=== PATIENT | female | born 1940 | race Caucasian/White ===

== ENCOUNTER 2017-09-20 14:54 | Emergency (ER) | payer MEDICARE ==
--- NOTE | 2017-09-20 15:39 | RAD ---
UPRIGHT PORTABLE CHEST ONE VIEW: History: 77-year-old female with generalized weakness. Comparison: 08-23-17 FINDINGS: Monitor leads overlie the chest. Poor inspiration. Linear and parenchymal changes in both bases, prob ably chronic change and/or subsegmental atelectasis. The upper lung zones appear stable. Heart size i s borderline. IMPRESSION: Very poor inspiratory effort with linear and parenchymal changes in the bases, stable. No evidence of pneumonia or other acute process. POS: [facility]
[2017-09-20 15:55] LABS: #Basophils 0.1 thou/uL (0.0-0.2); #Eosinphils 0.6 thou/uL (0.0-0.7); #Lymphocytes 1.4 thou/uL (1.20-3.40); #Monocytes 0.9 thou/uL (0.11-0.59); #Neutrophils 6.6 thou/uL (1.40-6.50); %Basophils 0.6 % (0.0-1.0); %Eosinophils 6.5 % (0.0-10.0); %Lymphocytes 14.7 % (21.0-51.0); Hematocrit 40.5 % (36.0-47.0); Mean Platelet Volume 6.6 fL (7.4-10.4); Red Blood Cell (RBC) Count 4.25 mill/uL (4.20-5.40); White Blood Cell (WBC) Count 9.6 thou/uL (4.8-10.8)
[2017-09-20 16:12] LABS: Lactic Acid - Sepsis 1.6 mmol/L (0.5-2.2)
[2017-09-20 16:17] LABS: ALT (SGPT) 14 U/L (8-55); AST (SGOT) 16 U/L (5-34); Alkaline Phosphatase 140 U/L (40-150); Anion Gap 11 mmol/L (10-20); BUN (Urea Nitrogen) 12 mg/dL (9.8-20.1); Bilirubin, Total 0.4 mg/dL (0.2-1.2); Calc. Creatinine Clearance 0 mL/min (70-130); Calcium 9.4 mg/dL (7.8-10.44); Carbon Dioxide 30 mmol/L (23-31); Chloride 100 mmol/L (98-107); Estimated GFR-MDRD 56; Globulin 3.4 g/dL (2.4-3.5); Protein, Total 7.2 g/dL (6.0-8.3)
[2017-09-20 16:22] LABS: Troponin I Less than 0.010 ng/mL (< 0.028)
== END 2017-09-20 17:19 | disposition home or self-care (01) ==
LOC: ERS 14:54
DX: N39.0 Urinary tract infection, site not specified (principal)
CPT/HCPCS: 36415; 71010; 80053; 82553; 83605; 83880; 84484; 85025; 94760

== ENCOUNTER 2017-09-29 13:21 | Inpatient (IN) | payer MEDICARE ==
--- NOTE | 2017-09-29 14:13 | RAD ---
RADIOGRAPH CHEST 1 VIEW: HISTORY: 77-year-old female with fever. FINDINGS: There is no air space density, pulmonary edema, or pneumothorax. The lateral costophrenic angles are sharp. There is severe joint space narrowing, sclerosis, and osteophytosis, of the left glenohumeral joint. High-riding left humeral head is suggestive of chronic left rotator cuff tear. IMPRESSION: 1. No acute pulmonary findings. 2. Severe osteoarthrosis of the left glenohumeral joint. alvarez [] POS: [facility]
[2017-09-29 14:23] LABS: #Eosinphils 0.1 thou/uL (0.0-0.7); #Lymphocytes 2.6 thou/uL (1.20-3.40); #Monocytes 1.2 thou/uL (0.11-0.59); %Basophils 0.2 % (0.0-1.0); %Eosinophils 0.6 % (0.0-10.0); %Lymphocytes 15.3 % (21.0-51.0); %Neutrophils 76.9 % (42.0-75.0); Hemoglobin 13.7 g/dL (12.0-16.0); Mean Corpuscular HGB CONC 32.6 g/dL (32.0-36.0); Mean Corpuscular Hemoglobin 30.8 pg (27.0-31.0); Mean Corpuscular Volume 94.5 fl (81.0-99.0); Mean Platelet Volume 6.6 fL (7.4-10.4); Platelet Count 416 thou/uL (130-400); RBC Distribution Width 13.1 % (11.5-14.5); Red Blood Cell (RBC) Count 4.47 mill/uL (4.20-5.40)
[2017-09-29 14:41] LABS: ALT (SGPT) 10 U/L (8-55); AST (SGOT) 13 U/L (5-34); Albumin 4.1 g/dL (3.4-4.8); Alkaline Phosphatase 168 U/L (40-150); Anion Gap 16 mmol/L (10-20); BUN (Urea Nitrogen) 9 mg/dL (9.8-20.1); Bilirubin, Total 0.4 mg/dL (0.2-1.2); Calc. Creatinine Clearance 0 mL/min (70-130); Calcium 9.9 mg/dL (7.8-10.44); Carbon Dioxide 25 mmol/L (23-31); Chloride 106 mmol/L (98-107); Estimated GFR-MDRD 66; Globulin 3.7 g/dL (2.4-3.5); Glucose 131 mg/dL (83-110); Potassium 3.8 mmol/L (3.5-5.1); Protein, Total 7.8 g/dL (6.0-8.3); Sodium 143 mmol/L (136-145)
[2017-09-29 16:07] LABS: Bilirubin Negative (Negative); Blood, Urine Negative (Negative); Clarity CLEAR (Clear); Glucose, Urine (Dipstick) Negative (Negative); Leukocyte Negative (Negative); Nitrite Negative (Negative); Protein, Urine (Dipstick) 30 mg/dL (Neg-Trace); Specific Gravity, Urine 1.009 (1.002-1.036); Urobilinogen 0.2 mg/dL (0.2-1.0)
[2017-09-29 16:09] LABS: Bacteria/HPF None Seen HPF (None Seen); Hyaline Casts/LPF 0-3 HYALINE CAST LPF (0-3 Hyaline); RBC/HPF None Seen HPF (0-3); Squamous Epithelial None Seen HPF (0-3); WBC/HPF None Seen HPF (0-3)
[2017-09-29] MEDS ORDERED: HYDROcodone/Acetaminophen 10/325 mg Tablet ONE (16:49)
[2017-09-29 18:17] LABS: Lactic Acid 2.1 mmol/L (0.5-2.2)
[2017-09-29] MEDS ORDERED: Ondansetron HCl/PF 4 MG/2 ML Vial IVP PRN (20:36)
[2017-09-29] MEDS ORDERED: Ondansetron ODT 4 MG TAB SL PRN (20:36)
[2017-09-29] MEDS ORDERED: Sodium Chloride 0.9% 1,000 ML IV SCH (20:45)
[2017-09-29] MEDS ORDERED: Dextrose 5 % And 0.9 % NaCl 1,000 ML IV SCH (20:45)
[2017-09-29] MEDS ORDERED: Guaifenesin DM 100-10/5 ML UDCUP PO PRN (21:09)
[2017-09-29] MEDS ORDERED: Ondansetron ODT 4 MG TAB PO PRN (21:09)
[2017-09-29] MEDS ORDERED: Enoxaparin Sodium 40 MG/0.4 ML SYRINGE SC SCH (21:09)
[2017-09-29] MEDS ORDERED: Acetaminophen 325 MG TAB PO PRN (21:09)
[2017-09-29] MEDS ORDERED: Albuterol Sulfate 2.5 mg/3 ml Neb NEB PRN (21:09)
[2017-09-29] MEDS ORDERED: HYDROcodone/Acetaminophen 5/325 mg Tablet PO PRN (21:09)
[2017-09-29] MEDS ORDERED: Cefepime 2 GM in Sodium Chloride 0.9% 100 ML IVPB SCH (21:09)
[2017-09-29] MEDS ORDERED: guaiFENesin ER 600 MG TAB PO SCH (21:45)
[2017-09-29] MEDS ORDERED: ALPRAZolam 0.25 MG TAB PO SCH (21:45)
[2017-09-29] MEDS ORDERED: Famotidine 20 MG TAB PO SCH (21:45)
[2017-09-29] MEDS ORDERED: Gabapentin 400 MG CAP PO SCH (21:45)
[2017-09-29] MEDS: HYDROcodone/Acetaminophen 10/325 mg Tablet PO PRN (22:05)
[2017-09-29] MEDS: Cefepime 2 GM, Syringe 2.5 ML in Sterile Water 10 ML SLOW IVP SCH (22:08)
[2017-09-29] MEDS: Sodium Chloride 0.9% 1,000 ML IV SCH (22:13)
[2017-09-29] MEDS: guaiFENesin ER 600 MG TAB PO SCH (22:13)
[2017-09-29] MEDS: ALPRAZolam 0.25 MG TAB PO SCH (22:14)
--- NOTE | 2017-09-29 23:18 | HP ---
DATE OF ADMISSION: 09/29/2017 TIME OF SERVICE: 1800 CHIEF COMPLAINT: Tachycardia and cough. PRIMARY CARE PHYSICIAN: Dr. Deepak Ricardo. HISTORY OF PRESENT ILLNESS: Ms. Santizo is a very pleasant 77-year-old white female with history of hypertension, chronic atrial fibrillation, anxiety, depression, COPD, and hypothyroidism who was las t admitted here about a month ago just before . She was admitted with respiratory infect ion and sepsis. She was here for few days and went home. Since discharge, she has been doing okay. She actually came back to the ER about a week ago and was treated for UTI and then improved. She did well until about 24 hours ago. She is having increased s hortness of breath and cough and felt like her heart rate was getting out of control. Overall, she f elt much worse. She saw her PCP on 09/28, she was diagnosed in a year of upper respiratory tract inf ection, she was given short course of prednisone, she was also given a steroid injection to her left shoulder joint for chronic pain. She has had no fevers or chills, she has had cough and so decided t o come to the emergency department, they could see she was not getting any better. In the emergency department, she was given 1 liter of normal saline and a dose of vancomycin due to multiple drug tiago rgies. Chest x-ray was performed, thus appeared unremarkable, we were called for further admission d ue to lab findings. She denies any other current complaints. PAST MEDICAL HISTORY: 1. Hypertension. 2. Chronic atrial fibrillation. 3. Anxiety/depression. 4. COPD. 5. Hyperlipidemia. 6. GERD. 7. Hypothyroidism. PAST SURGICAL HISTORY: Include, 1. Hysterectomy. 2. Cholecystectomy. 3. Back surgery. 4. Appendectomy remotely. HOME MEDICATIONS: Have been reviewed in their entirety. Please see her recent ambulatory order list per the nurses. This has been reviewed and are correct. ALLERGIES: 1. AMOXICILLIN/CLAVULANIC ACID caused diarrhea, which is not a true allergy. CIPRO causes a rash, b ut she has tolerated LEVAQUIN in the past. She has also tolerated OMNICEF, ROCEPHIN, CEFEPIME. 2. ERYTHROMYCIN causes nausea. 3. FENTANYL. 4. LASIX causes a rash. 5. METOLAZONE. 6. NABUMETONE. 7. OXYCODONE. 8. SULFA. FAMILY HISTORY: Negative for clotting or bleeding disorder, no immune dysfunction. SOCIAL HISTORY: Negative for habits x3. She is . was here earlier, but has gone kike e. I did speak with him on the phone. REVIEW OF SYSTEMS: Ten-point review of systems was performed, negative for all other systems except stated as per HPI. PHYSICAL EXAMINATION: VITAL SIGNS: Temperature 98.4, pulse 122, blood pressure 131/65, respiratory rate 20, satting 94% on 2 liters, temperature on arrival was 100.1. GENERAL: She is awake. She is alert. She is oriented x3. She is acutely ill and does not look lik e she feels well. She appears in no acute distress. HEENT: Normocephalic, atraumatic. Pupils are equal and reactive bilaterally, mucous membranes moist . She has posterior oropharyngeal cobblestoning. There is some chronic postnasal drip. There is no thrush. NECK: Supple. There is no lymphadenopathy, JVD, or thyromegaly. She had normal carotid upstrokes w ithout bruits. LUNGS: Clear to auscultation anteriorly. She has good air movement. There is no prolonged expirato ry phase and no wheezes. I hear no rhonchi. She has some faint bibasilar crackles that initially se emed to clear with deep inspiration, but then seemed persistent. CARDIOVASCULAR: She is irregularly irregular and tachycardic. She has normal S1, S2. I do not appr eciate any murmurs. ABDOMEN: Soft, is nontender, nondistended. She has no rebound, rigidity, or guarding with normoacti ve bowel sounds present in all 4 quadrants. EXTREMITIES: There is no cyanosis or clubbing with trace pedal edema. She has 2+ peripheral pulses in both lower extremities. SKIN: Warm, moist, and well perfused. She has no rashes, no lesions. MUSCULOSKELETAL: The remainder of joints are normal to inspection. No inflammation or palpable join t effusions in the large joints. NEUROLOGIC: Cranial nerves II-XII are grossly intact. Patient has no focal deficits and normal spee ch. LABORATORY DATA: CMP shows sodium 143, potassium 3.8, chloride 106, bicarbonate 25, BUN 9, creatinin e 0.84, and calcium of 9.9. Glucose was 131. Liver functions normal except for an alkaline phosphat ase of 168. CBC showed a white count of 17.0 with a left shift. Hemoglobin of 13.1, hematocrit of 4 2.2, platelet count of 412,000. Flu screen was negative. Lactic acid initially 3.1. X-ray initially negative. ASSESSMENT AND PLAN: 1. Presumed healthcare associated pneumonia. Patient was here right of 30 days ago. She got Roceph in and levofloxacin in the emergency department. We will continue cefepime and levofloxacin for heal thcare-associated. I do not believe this methicillin-resistant Staphylococcus aureus. Chest x-ray i s negative, but did have some faint bibasilar crackles. We will give her full 30 mL of IV fluids per kilo, which is 3 liters and then continue 125 an hour. Repeat 2-view chest x-ray in the morning. I will continue her nebulizer treatments here in the hospital. We will reevaluate in the morning. 2. Chronic atrial fibrillation, currently in atrial fibrillation with rapid ventricular response: T he patient was given IV fluids. Over there, we will help with her rate if not, we will start her on some Cardizem. 3. Chronic obstructive pulmonary disease: No acute exacerbation noted. Continue home medications. There was hyperemia on home medications. 4. Hypothyroidism: We will continue her levothyroxine. 5. The patient does meet severe sepsis criteria with increased lactic acid, tachycardia, temperature of 100.1, increased white blood cell with left shift and presumed pneumonia. Repeat lactic acid minor t has been ordered. We will follow up on the findings. The patient was placed in admission status.
[2017-09-30] MEDS: HYDROcodone/Acetaminophen 10/325 mg Tablet PO PRN ×3 (03:56→19:04)
[2017-09-30 05:22] LABS: #Eosinphils 0.2 thou/uL (0.0-0.7); #Lymphocytes 2.9 thou/uL (1.20-3.40); #Monocytes 1.1 thou/uL (0.11-0.59); #Neutrophils 8.5 thou/uL (1.40-6.50); %Basophils 0.3 % (0.0-1.0); %Eosinophils 1.5 % (0.0-10.0); %Monocytes 8.6 % (0.0-10.0); %Neutrophils 66.7 % (42.0-75.0); Hemoglobin 12.2 g/dL (12.0-16.0); Mean Corpuscular HGB CONC 32.6 g/dL (32.0-36.0); Mean Corpuscular Hemoglobin 31.1 pg (27.0-31.0); Mean Corpuscular Volume 95.4 fl (81.0-99.0); Mean Platelet Volume 6.6 fL (7.4-10.4); Platelet Count 322 thou/uL (130-400); RBC Distribution Width 13.3 % (11.5-14.5); Red Blood Cell (RBC) Count 3.94 mill/uL (4.20-5.40); White Blood Cell (WBC) Count 12.8 thou/uL (4.8-10.8)
[2017-09-30] MEDS: Levothyroxine Sodium 125 MCG TAB PO SCH (05:27)
[2017-09-30 05:46] LABS: Anion Gap 14 mmol/L (10-20); BUN (Urea Nitrogen) 8 mg/dL (9.8-20.1); Calc. Creatinine Clearance 93 mL/min (70-130); Calcium 8.7 mg/dL (7.8-10.44); Carbon Dioxide 23 mmol/L (23-31); Chloride 106 mmol/L (98-107); Estimated GFR-MDRD 77; Glucose 96 mg/dL (83-110); Magnesium 1.6 mg/dL (1.6-2.6); Potassium 3.3 mmol/L (3.5-5.1); Sodium 140 mmol/L (136-145)
[2017-09-30] MEDS: Sodium Chloride 0.9% 1,000 ML IV SCH (08:32)
[2017-09-30] MEDS: Amlodipine 5 MG TAB PO SCH (08:34)
[2017-09-30] MEDS: predniSONE 20 MG TAB PO SCH (08:34)
[2017-09-30] MEDS: Enoxaparin Sodium 40 MG/0.4 ML SYRINGE SC SCH (08:35)
[2017-09-30] MEDS: Famotidine 20 MG TAB PO SCH ×2 (08:35→20:09)
[2017-09-30] MEDS: Atorvastatin Calcium 10 MG TAB PO SCH (08:35)
[2017-09-30] MEDS: FLUoxetine HCl 20 MG CAP PO SCH (08:36)
[2017-09-30] MEDS: Gabapentin 400 MG CAP PO SCH ×3 (08:36→20:10)
[2017-09-30] MEDS: Valsartan 80 MG TAB PO SCH (08:37)
[2017-09-30] MEDS: TROSPIUM 20 MG TABLET PO SCH ×2 (08:37→20:09)
[2017-09-30] MEDS: guaiFENesin ER 600 MG TAB PO SCH ×2 (08:37→20:11)
--- NOTE | 2017-09-30 08:41 | PDOC.PN ---
- Subjective Encounter Start Date: 09/30/17 Encounter Start Time: 08:38 Subjective: Seen and examined with no new complaint - Objective Resuscitation Status: Resuscitation Status FULL:Full Resuscitation Vital Signs & Weight: Vital Signs (12 hours) Temp Pulse Resp BP Pulse Ox 09/30/17 08:25 97.8 F 116 H 19 166/80 H 94 L 09/30/17 07:37 82 20 96 09/30/17 03:50 98.3 F 85 18 137/75 92 L 09/30/17 00:33 79 18 94 L 09/30/17 00:00 97.8 F 79 16 139/65 94 L Weight Weight 200 lb 14.4 oz I&O: 09/29/17 09/30/17 10/01/17 06:59 06:59 06:59 Intake Total 1525 Balance 1525 Result Diagrams: 09/30/17 04:41 09/30/17 04:41 Phys Exam - Physical Examination Constitutional: NAD HEENT: PERRLA, moist MMs, sclera anicteric, TM's clear Neck: no nodes, no JVD, supple, full ROM Respiratory: no rales, no rhonchi, clear to auscultation bilateral Cardiovascular: RRR, no significant murmur, no rub Gastrointestinal: soft, non-tender, no distention, positive bowel sounds Musculoskeletal: no edema, pulses present Dx/Plan (1) Pneumonia Code(s): J18.9 - PNEUMONIA, UNSPECIFIED ORGANISM Status: Acute (2) COPD (chronic obstructive pulmonary disease) Status: Acute (3) Afib Code(s): I48.91 - UNSPECIFIED ATRIAL FIBRILLATION Status: Acute (4) Hypertension Code(s): I10 - ESSENTIAL (PRIMARY) HYPERTENSION Status: Chronic Qualifiers: - Plan continue antibiotics, PT/OT, social services aide, respiratory therapy D/c IVF -: Monitor the heart rate closely * .
[2017-09-30] MEDS: Cefepime 2 GM, Syringe 2.5 ML in Sterile Water 10 ML SLOW IVP SCH ×2 (11:18→21:38)
[2017-09-30] MEDS: Vancomycin HCl 1 GM in Premix Bag 1 BAG IVPB SCH ×2 (11:19→23:23)
[2017-09-30] MEDS: ALPRAZolam 0.25 MG TAB PO SCH (20:10)
[2017-10-01] MEDS: HYDROcodone/Acetaminophen 10/325 mg Tablet PO PRN ×2 (03:31→09:26)
[2017-10-01] MEDS: Levothyroxine Sodium 125 MCG TAB PO SCH (06:18)
[2017-10-01] MEDS: Gabapentin 400 MG CAP PO SCH ×3 (09:24→21:13)
[2017-10-01] MEDS: Famotidine 20 MG TAB PO SCH ×2 (09:25→21:14)
[2017-10-01] MEDS: TROSPIUM 20 MG TABLET PO SCH ×2 (09:25→21:13)
[2017-10-01] MEDS: FLUoxetine HCl 20 MG CAP PO SCH (09:25)
[2017-10-01] MEDS: Valsartan 80 MG TAB PO SCH (09:25)
[2017-10-01] MEDS: predniSONE 20 MG TAB PO SCH (09:25)
[2017-10-01] MEDS: Amlodipine 5 MG TAB PO SCH (09:25)
[2017-10-01] MEDS: Atorvastatin Calcium 10 MG TAB PO SCH (09:25)
[2017-10-01] MEDS: guaiFENesin ER 600 MG TAB PO SCH ×2 (09:25→21:12)
[2017-10-01] MEDS: Enoxaparin Sodium 40 MG/0.4 ML SYRINGE SC SCH (09:26)
[2017-10-01] MEDS: Cefepime 2 GM, Syringe 2.5 ML in Sterile Water 10 ML SLOW IVP SCH ×2 (09:31→21:14)
--- NOTE | 2017-10-01 11:33 | PDOC.PN ---
- Subjective Encounter Start Date: 10/01/17 Encounter Start Time: 11:31 Subjective: Seen and examined with no new complaint - Objective Resuscitation Status: Resuscitation Status FULL:Full Resuscitation Vital Signs & Weight: Vital Signs (12 hours) Temp Pulse Resp BP BP Pulse Ox 10/01/17 09:25 84 133/75 10/01/17 07:15 98.6 F 84 20 133/75 98 10/01/17 07:14 81 20 94 L 10/01/17 04:00 97.7 F 95 14 134/83 98 10/01/17 00:39 109 H 20 98 10/01/17 00:00 97.7 F 89 17 162/83 H 97 Weight Weight 197 lb 4.8 oz I&O: 09/30/17 10/01/17 10/02/17 06:59 06:59 06:59 Intake Total 1525 1590 Balance 1525 1590 Result Diagrams: 09/30/17 04:41 09/30/17 04:41 Phys Exam - Physical Examination Constitutional: NAD HEENT: PERRLA, moist MMs, sclera anicteric, TM's clear Neck: no nodes, no JVD, supple, full ROM Respiratory: no wheezing, no rales, no rhonchi, clear to auscultation bilateral Cardiovascular: RRR, no significant murmur, no rub Gastrointestinal: soft, non-tender, no distention, positive bowel sounds Musculoskeletal: no edema, pulses present Dx/Plan (1) Pneumonia Code(s): J18.9 - PNEUMONIA, UNSPECIFIED ORGANISM Status: Acute (2) COPD (chronic obstructive pulmonary disease) Status: Acute (3) Afib Code(s): I48.91 - UNSPECIFIED ATRIAL FIBRILLATION Status: Acute (4) Hypertension Code(s): I10 - ESSENTIAL (PRIMARY) HYPERTENSION Status: Chronic Qualifiers: (5) Hypokalemia Code(s): E87.6 - HYPOKALEMIA Status: Acute (6) MRSA (methicillin resistant staph aureus) culture positive Code(s): Z22.322 - CARRIER OR SUSPECTED CARRIER OF METHICILLIN RESIS STAPH Status: Acute - Plan continue antibiotics, PT/OT, vp digital marketing social media and crm, respiratory therapy Continue MRSA coverage with vancomycin -: Follow trough levels and make dose adjustement accordingly -: Dispo planning * .
--- NOTE | 2017-10-01 12:41 | RAD ---
CHEST 1 VIEW: Date: 10/01/17 COMPARISON: Chest 1 view dated 09/29/17. FINDINGS: Heart size is enlarged. Small effusions. Lungs are hypoinflated. No acute osseous abnormality. IMPRESSION: 1. Cardiomegaly and small effusions and lung hypoinflation. 2. Severe degenerative changes of left glenohumeral joint. POS: [facility]
[2017-10-01] MEDS: Vancomycin HCl 1 GM in Premix Bag 1 BAG IVPB SCH (12:59)
[2017-10-01] MEDS: carBAMazepine 100 mg Chewable Tablet PO SCH (21:12)
[2017-10-01] MEDS: ALPRAZolam 0.25 MG TAB PO SCH (21:12)
[2017-10-01 23:14] LABS: Vancomycin, Trough 26.1 ug/mL
[2017-10-02] MEDS: Vancomycin HCl 1 GM in Premix Bag 1 BAG IVPB SCH ×2 (01:32→12:04)
[2017-10-02] MEDS: Levothyroxine Sodium 125 MCG TAB PO SCH (05:38)
[2017-10-02] MEDS: FLUoxetine HCl 20 MG CAP PO SCH (09:59)
[2017-10-02] MEDS: Famotidine 20 MG TAB PO SCH ×2 (09:59→20:38)
[2017-10-02] MEDS: Gabapentin 400 MG CAP PO SCH ×3 (09:59→20:36)
[2017-10-02] MEDS: Valsartan 80 MG TAB PO SCH (09:59)
[2017-10-02] MEDS: predniSONE 20 MG TAB PO SCH (09:59)
[2017-10-02] MEDS: Atorvastatin Calcium 10 MG TAB PO SCH (09:59)
[2017-10-02] MEDS: TROSPIUM 20 MG TABLET PO SCH ×2 (09:59→20:36)
[2017-10-02] MEDS: guaiFENesin ER 600 MG TAB PO SCH ×2 (10:00→20:36)
[2017-10-02] MEDS: Amlodipine 5 MG TAB PO SCH (10:00)
[2017-10-02] MEDS: Enoxaparin Sodium 40 MG/0.4 ML SYRINGE SC SCH (10:00)
[2017-10-02] MEDS: Cefepime 2 GM, Syringe 2.5 ML in Sterile Water 10 ML SLOW IVP SCH ×2 (10:01→22:00)
[2017-10-02] MEDS ORDERED: Diltiazem 125 MG in Sodium Chloride 0.9% 100 ML IVPB SCH (10:15)
[2017-10-02] MEDS: carBAMazepine 100 mg Chewable Tablet PO SCH ×2 (10:17→20:38)
--- NOTE | 2017-10-02 10:23 | PDOC.PN ---
- Subjective Encounter Start Date: 10/02/17 Encounter Start Time: 10:05 Subjective: f/u for suspected sepsis and HCAP on Cefepime and Vancomycin. Nsg reports -: A-fib RVR in the 180-200's with known chronic a-fib. - Objective Resuscitation Status: Resuscitation Status FULL:Full Resuscitation MAR Reviewed: Yes Vital Signs & Weight: Vital Signs (12 hours) Temp Pulse Resp BP BP Pulse Ox 10/02/17 10:00 73 177/89 H 10/02/17 08:09 73 20 96 10/02/17 07:15 98.0 F 93 20 177/89 H 95 10/02/17 06:00 97.3 F L 99 20 165/84 H 93 L 10/02/17 00:00 97.9 F 71 15 174/76 H 96 Weight Weight 197 lb 11.2 oz I&O: 10/01/17 10/02/17 10/03/17 06:59 06:59 06:59 Intake Total 1590 510 Balance 1590 510 Result Diagrams: 09/30/17 04:41 09/30/17 04:41 Additional Labs: Microbiology 09/29/17 14:13 Nasal swab Influenza Types A,B Direct EIA - Final 09/29/17 14:11 Venous blood - Left Arm Blood Culture - Final Methicillin resistant S.aureus Enterococcus faecalis Coagulase Neg Staphylococcus 09/29/17 14:11 Venous blood - Right Hand Blood Culture - Preliminary NO GROWTH AT 48 HOURS Laboratory Tests 09/29/17 09/29/17 09/29/17 14:11 14:11 14:11 WBC 17.0 H Potassium 3.8 Lactic Acid 3.1 H Vancomycin Trough 09/29/17 09/30/17 09/30/17 17:53 04:41 04:41 WBC 12.8 H Potassium 3.3 L Lactic Acid 2.1 Vancomycin Trough 10/01/17 22:42 WBC Potassium Lactic Acid Vancomycin Trough 26.1 EKG Reviewed by me: Yes (Tele - A-fib RVR in 180's) Phys Exam - Physical Examination ill-appearing, answers questions HEENT: PERRLA, oral pharynx no lesions Neck: no JVD, supple diminished in bases tachycardic Cardiovascular: irregular Gastrointestinal: soft, non-tender, no distention, positive bowel sounds Musculoskeletal: no edema, pulses present Neurological: moves all 4 limbs Psychiatric: A&O x 3 Skin: normal turgor, cap refill <2 seconds Dx/Plan (1) Healthcare associated bacterial pneumonia Code(s): J15.9 - UNSPECIFIED BACTERIAL PNEUMONIA Status: Acute Comment: suspected though CXR was unrevealing, continue Cefepime and Vancomycin, pulmonary support, Duonebs (2) Sepsis Code(s): A41.9 - SEPSIS, UNSPECIFIED ORGANISM Status: Suspected Comment: Secondary to #1, see above (3) Afib Code(s): I48.91 - UNSPECIFIED ATRIAL FIBRILLATION Status: Acute Qualifiers: Atrial fibrillation type: chronic Qualified Code(s): I48.2 - Chronic atrial fibrillation Comment: RVR noted on tele, Cardizem 20mg IV bolus then 5mg/h gtt, consult Cardiology (4) COPD (chronic obstructive pulmonary disease) Status: Chronic Comment: Continue general pulm support (5) Hypokalemia Code(s): E87.6 - HYPOKALEMIA Status: Acute (6) MRSA (methicillin resistant staph aureus) culture positive Code(s): Z22.322 - CARRIER OR SUSPECTED CARRIER OF METHICILLIN RESIS STAPH Status: Acute Comment: Acute/?chronic, continue Vancomycin (7) Physical deconditioning Code(s): R53.81 - OTHER MALAISE Status: Chronic Comment: PT evaluation and SNF options - Plan continue antibiotics, PT/OT, forensic social worker, respiratory therapy, DVT proph w/ SCDs Start Cardizem gtt now -: Continue Cefepime and Vancomycin -: Continue Prednisone 20mg daily -: Resume Qvar 1 puff BID -: Check BMP, CBC, TSH, Mg++ now * Consult Cardiology * AM lab: BMP, CBC
[2017-10-02 10:57] LABS: Anion Gap 15 mmol/L (10-20); BUN (Urea Nitrogen) 12 mg/dL (9.8-20.1); Calc. Creatinine Clearance 83 mL/min (70-130); Calcium 9.1 mg/dL (7.8-10.44); Carbon Dioxide 22 mmol/L (23-31); Chloride 105 mmol/L (98-107); Estimated GFR-MDRD 70; Glucose 124 mg/dL (83-110); Magnesium 1.7 mg/dL (1.6-2.6); Sodium 139 mmol/L (136-145)
[2017-10-02 10:59] LABS: Band 2 % (5-11); Eosinophils 4 % (0-10); Hemoglobin 14.1 g/dL (12.0-16.0); Lymphocytes 30 % (21-51); MDiff Complete? YES; Mean Corpuscular HGB CONC 33.1 g/dL (32.0-36.0); Mean Corpuscular Hemoglobin 31.3 pg (27.0-31.0); Mean Corpuscular Volume 94.3 fl (81.0-99.0); Mean Platelet Volume 6.5 fL (7.4-10.4); Monocytes 5 % (0-10); Neutrophil 58 % (42-75); Platelet Count 333 thou/uL (130-400); RBC Distribution Width 13.2 % (11.5-14.5); Reactive Lymphocytes 1 % (0-10); Red Blood Cell (RBC) Count 4.49 mill/uL (4.20-5.40); White Blood Cell (WBC) Count 17.7 thou/uL (4.8-10.8)
[2017-10-02] MEDS: HYDROcodone/Acetaminophen 10/325 mg Tablet PO PRN (12:02)
[2017-10-02] MEDS: ALPRAZolam 0.25 MG TAB PO SCH (20:36)
[2017-10-02] MEDS: Mometasone 100 MCG HFA INHALER INH SCH (21:33)
--- NOTE | 2017-10-02 23:39 | CON ---
DATE OF CONSULTATION: 10/02/2017 HISTORY OF PRESENT ILLNESS: The patient is a pleasant 77-year-old woman with a history of SVT and atrial fibrillation, who presented with rapid palpitations and dyspnea. The patient has a history of hypertension. She was also diagnosed many years ago with SVT. The patient also has a history of paroxysmal atrial fibrillation. The patient presented to the emergency room with dyspnea and palpitations. She denied having any chest discomfort. PAST MEDICAL HISTORY: 1. SVT. 2. Atrial fibrillation. 3. Hypertension. 4. Anxiety. PAST SURGICAL HISTORY: Hysterectomy, cholecystectomy, back surgery,and appendectomy. MEDICATIONS: See nursing list. FAMILY HISTORY: Positive family history of heart disease. Father had a myocardial infarction. ALLERGIES: No known drug allergies. SOCIAL HISTORY: Nonsmoker. REVIEW SYSTEMS: No history of easy bruising or bright red blood per rectum. Review of system was noticeable for severe back discomfort. PHYSICAL EXAMINATION: GENERAL: An obese woman in no acute distress. VITAL SIGNS: Blood pressure 144/65. NECK: Full. LUNGS: Clear to auscultation. HEART: Regular rate and rhythm, normal S1, S2. ABDOMEN: Soft, distended. EXTREMITIES: Showed trace edema. EKG revealed atrial fibrillation with a rapid ventricular response with an incomplete left bundle branch block. IMPRESSION: 1. Recurrent atrial fibrillation. 2. History of supraventricular tachycardia. 3. Hypertension. 4. Obesity. 5. Depression. 6. Chronic back discomfort. This patient presents with new onset atrial fibrillation. From a cardiac standpoint, I will start her on a beta-jacqui and flecainide to hopefully maintain sinus rhythm. The patient will also be started on Eliquis for stroke prevention. We will check the patient's echocardiogram and will follow this patient with you through her hospitalization. [facility]
[2017-10-03] MEDS: Vancomycin HCl 1 GM in Premix Bag 1 BAG IVPB SCH ×3 (00:03→23:54)
[2017-10-03] MEDS: Levothyroxine Sodium 125 MCG TAB PO SCH (05:41)
[2017-10-03 06:07] LABS: Anion Gap 13 mmol/L (10-20); BUN (Urea Nitrogen) 15 mg/dL (9.8-20.1); Calc. Creatinine Clearance 80 mL/min (70-130); Calcium 8.6 mg/dL (7.8-10.44); Carbon Dioxide 22 mmol/L (23-31); Chloride 107 mmol/L (98-107); Estimated GFR-MDRD 66; Glucose 89 mg/dL (83-110); Potassium 3.1 mmol/L (3.5-5.1); Sodium 139 mmol/L (136-145)
[2017-10-03 07:42] LABS: Band 2 % (5-11); Eosinophils 2 % (0-10); Hemoglobin 11.7 g/dL (12.0-16.0); Lymphocytes 23 % (21-51); MDiff Complete? YES; Mean Corpuscular HGB CONC 32.5 g/dL (32.0-36.0); Mean Corpuscular Hemoglobin 30.9 pg (27.0-31.0); Mean Corpuscular Volume 94.9 fl (81.0-99.0); Mean Platelet Volume 6.8 fL (7.4-10.4); Monocytes 4 % (0-10); Neutrophil 69 % (42-75); Platelet Count 298 thou/uL (130-400); RBC Distribution Width 13.3 % (11.5-14.5); Red Blood Cell (RBC) Count 3.79 mill/uL (4.20-5.40); White Blood Cell (WBC) Count 15.8 thou/uL (4.8-10.8)
[2017-10-03] MEDS: Mometasone 100 MCG HFA INHALER INH SCH ×2 (07:46→19:50)
[2017-10-03] MEDS ORDERED: Sodium Chloride 0.9% 10 ML ONE (07:48)
[2017-10-03] MEDS: Amlodipine 5 MG TAB PO SCH (09:30)
[2017-10-03] MEDS: predniSONE 20 MG TAB PO SCH (09:30)
[2017-10-03] MEDS: Gabapentin 400 MG CAP PO SCH ×3 (09:31→21:19)
[2017-10-03] MEDS: TROSPIUM 20 MG TABLET PO SCH ×2 (09:31→21:18)
[2017-10-03] MEDS: FLUoxetine HCl 20 MG CAP PO SCH (09:31)
[2017-10-03] MEDS: guaiFENesin ER 600 MG TAB PO SCH ×2 (09:31→21:18)
[2017-10-03] MEDS: Atorvastatin Calcium 10 MG TAB PO SCH (09:31)
[2017-10-03] MEDS: Famotidine 20 MG TAB PO SCH ×2 (09:31→21:20)
[2017-10-03] MEDS: Valsartan 80 MG TAB PO SCH (09:32)
[2017-10-03] MEDS: Enoxaparin Sodium 40 MG/0.4 ML SYRINGE SC SCH (09:34)
[2017-10-03] MEDS: carBAMazepine 100 mg Chewable Tablet PO SCH ×2 (09:45→21:21)
[2017-10-03] MEDS ORDERED: Furosemide 40 MG/4 ML VIAL SLOW IVP SCH (10:00)
[2017-10-03] MEDS ORDERED: Potassium Chloride 20 MEQ TAB PO SCH (10:00)
[2017-10-03] MEDS: Cefepime 2 GM, Syringe 2.5 ML in Sterile Water 10 ML SLOW IVP SCH ×2 (10:28→21:24)
--- NOTE | 2017-10-03 13:56 | PDOC.PN ---
- Subjective Encounter Start Date: 10/03/17 Encounter Start Time: 13:45 Subjective: f/u for sepsis and suspected HCAP on Vanc/Cefepime. Feels overall -: better. Off Cardizem for A-fib RVR now sinus. - Objective Resuscitation Status: Resuscitation Status FULL:Full Resuscitation MAR Reviewed: Yes Vital Signs & Weight: Vital Signs (12 hours) Temp Pulse Resp BP BP BP Pulse Ox 10/03/17 12:47 67 18 94 L 10/03/17 12:08 98.1 F 90 17 120/58 L 93 L 10/03/17 09:30 92 163/77 H 10/03/17 08:58 97.9 F 92 19 163/77 H 96 10/03/17 07:41 93 20 92 L 10/03/17 04:02 98.2 F 64 20 128/58 L 100 Weight Weight 198 lb 4.8 oz I&O: 10/02/17 10/03/17 10/04/17 06:59 06:59 06:59 Intake Total 510 940 Balance 510 940 Result Diagrams: 10/03/17 04:55 10/03/17 04:55 Additional Labs: Microbiology 09/29/17 14:13 Nasal swab Influenza Types A,B Direct EIA - Final 09/29/17 14:11 Venous blood - Left Arm Blood Culture - Final Methicillin resistant S.aureus Enterococcus faecalis Coagulase Neg Staphylococcus 09/29/17 14:11 Venous blood - Right Hand Blood Culture - Preliminary NO GROWTH AT 48 HOURS Laboratory Tests 09/29/17 09/29/17 09/29/17 14:11 14:11 14:11 WBC 17.0 H Potassium 3.8 Lactic Acid 3.1 H Vancomycin Trough Random Vancomycin 09/29/17 09/30/17 09/30/17 17:53 04:41 04:41 WBC 12.8 H Potassium 3.3 L Lactic Acid 2.1 Vancomycin Trough Random Vancomycin 10/01/17 10/02/17 10/02/17 22:42 10:34 10:34 WBC 17.7 H Potassium Lactic Acid Vancomycin Trough 26.1 Random Vancomycin 17.0 EKG Reviewed by me: Yes (Tele - SR in 60's) Phys Exam - Physical Examination Constitutional: NAD HEENT: PERRLA, oral pharynx no lesions Neck: no JVD, supple few scattered coarse sounds Cardiovascular: RRR Gastrointestinal: soft, non-tender, no distention, positive bowel sounds Musculoskeletal: pulses present, edema present Neurological: normal sensation, moves all 4 limbs Psychiatric: A&O x 3 Skin: normal turgor, cap refill <2 seconds Dx/Plan (1) Healthcare associated bacterial pneumonia Code(s): J15.9 - UNSPECIFIED BACTERIAL PNEUMONIA Status: Acute Comment: suspected though CXR was unrevealing, continue Cefepime and Vancomycin, pulmonary support, Duonebs (2) Sepsis Code(s): A41.9 - SEPSIS, UNSPECIFIED ORGANISM Status: Suspected Comment: Secondary to #1, see above, blood cx with MRSA and Enterococcus spp, await final sensitivities, continue Vanc/Cefepime (3) Afib Code(s): I48.91 - UNSPECIFIED ATRIAL FIBRILLATION Status: Acute Qualifiers: Atrial fibrillation type: chronic Qualified Code(s): I48.2 - Chronic atrial fibrillation Comment: RVR noted on tele, Cardizem gtt d/c'd, Flecainide 50mg BID for rhythm control, Metoprolol 50mg daily, no anticoagulation due to hx of bleeding, ASA 81mg daily (4) COPD (chronic obstructive pulmonary disease) Status: Chronic Comment: Continue general pulm support (5) Hypokalemia Code(s): E87.6 - HYPOKALEMIA Status: Acute (6) MRSA (methicillin resistant staph aureus) culture positive Code(s): Z22.322 - CARRIER OR SUSPECTED CARRIER OF METHICILLIN RESIS STAPH Status: Acute Comment: Acute/?chronic, continue Vancomycin (7) Physical deconditioning Code(s): R53.81 - OTHER MALAISE Status: Chronic Comment: PT evaluation and SNF options - Plan plan discussed w/ family, continue antibiotics, PT/OT, social sciences chair, respiratory therapy, DVT proph w/SCDs Stable overall -: Continue Cefepime and Vancomycin -: Await final blood cx sensitivities -: KCL supplementation -: AM lab: BMP, CBC * Likely home in 48h
[2017-10-03] MEDS: Potassium Chloride 20 MEQ TAB PO SCH (18:00)
[2017-10-03] MEDS: ALPRAZolam 0.25 MG TAB PO SCH (21:18)
[2017-10-03] MEDS: HYDROcodone/Acetaminophen 10/325 mg Tablet PO PRN (22:54)
[2017-10-03 23:18] LABS: Vancomycin, Trough 29.8 ug/mL
[2017-10-04 05:56] LABS: Anion Gap 13 mmol/L (10-20); BUN (Urea Nitrogen) 20 mg/dL (9.8-20.1); Calc. Creatinine Clearance 75 mL/min (70-130); Calcium 8.9 mg/dL (7.8-10.44); Carbon Dioxide 22 mmol/L (23-31); Chloride 106 mmol/L (98-107); Estimated GFR-MDRD 62; Glucose 86 mg/dL (83-110); Potassium 3.3 mmol/L (3.5-5.1); Sodium 138 mmol/L (136-145)
[2017-10-04 06:08] LABS: Eosinophils 1 % (0-10); Hemoglobin 12.1 g/dL (12.0-16.0); Lymphocytes 13 % (21-51); MDiff Complete? YES; Mean Corpuscular HGB CONC 32.2 g/dL (32.0-36.0); Mean Corpuscular Hemoglobin 30.6 pg (27.0-31.0); Mean Corpuscular Volume 94.9 fl (81.0-99.0); Monocytes 3 % (0-10); Neutrophil 83 % (42-75); Platelet Count 294 thou/uL (130-400); Red Blood Cell (RBC) Count 3.97 mill/uL (4.20-5.40); White Blood Cell (WBC) Count 16.6 thou/uL (4.8-10.8)
[2017-10-04] MEDS: Levothyroxine Sodium 125 MCG TAB PO SCH (06:09)
[2017-10-04] MEDS: Amlodipine 5 MG TAB PO SCH (08:42)
[2017-10-04] MEDS: Potassium Chloride 20 MEQ TAB PO SCH ×2 (08:42→17:51)
[2017-10-04] MEDS: predniSONE 20 MG TAB PO SCH (08:42)
[2017-10-04] MEDS: Atorvastatin Calcium 10 MG TAB PO SCH (08:43)
[2017-10-04] MEDS: Aspirin 81 mg Enteric Coated Tablet PO SCH (08:43)
[2017-10-04] MEDS: Famotidine 20 MG TAB PO SCH ×2 (08:44→21:40)
[2017-10-04] MEDS: carBAMazepine 100 mg Chewable Tablet PO SCH ×2 (08:44→21:36)
[2017-10-04] MEDS: Gabapentin 400 MG CAP PO SCH ×3 (08:45→21:38)
[2017-10-04] MEDS: TROSPIUM 20 MG TABLET PO SCH ×2 (08:45→21:37)
[2017-10-04] MEDS: FLUoxetine HCl 20 MG CAP PO SCH (08:45)
[2017-10-04] MEDS: Saccharomyces boulardii 250 MG CAP PO SCH (08:45)
[2017-10-04] MEDS: guaiFENesin ER 600 MG TAB PO SCH ×2 (08:45→21:39)
[2017-10-04] MEDS: Valsartan 80 MG TAB PO SCH (08:46)
[2017-10-04] MEDS: Enoxaparin Sodium 40 MG/0.4 ML SYRINGE SC SCH (08:47)
[2017-10-04] MEDS ORDERED: Furosemide 40 MG/4 ML VIAL SLOW IVP SCH (09:00)
[2017-10-04] MEDS: HYDROcodone/Acetaminophen 10/325 mg Tablet PO PRN ×2 (10:41→19:12)
[2017-10-04] MEDS: Cefepime 2 GM, Syringe 2.5 ML in Sterile Water 10 ML SLOW IVP SCH ×2 (10:51→21:40)
[2017-10-04] MEDS: Vancomycin HCl 1 GM in Premix Bag 1 BAG IVPB SCH (11:18)
[2017-10-04] MEDS: Mometasone 100 MCG HFA INHALER INH SCH ×2 (11:34→19:50)
--- NOTE | 2017-10-04 18:24 | PDOC.PN ---
- Subjective Encounter Start Date: 10/04/17 Encounter Start Time: 18:05 Subjective: f/u for sepsis with HCAP and bacteremia MRSA and Enterococcus spp. -: Tx with Vanc/Cefepime. Feels slightly better today. No fever. -: Feels generally weak. - Objective Resuscitation Status: Resuscitation Status FULL:Full Resuscitation MAR Reviewed: Yes Vital Signs & Weight: Vital Signs (12 hours) Temp Pulse Resp BP Pulse Ox 10/04/17 15:55 98 F 85 16 149/75 H 94 L 10/04/17 14:33 72 16 10/04/17 11:34 68 16 10/04/17 11:01 97.8 F 82 12 146/65 H 93 L 10/04/17 08:47 91 L 10/04/17 08:45 68 16 10/04/17 08:42 70 10/04/17 08:21 98.0 F 70 18 170/87 H 95 10/04/17 08:20 98.0 F 68 16 95 Weight Weight 199 lb I&O: 10/03/17 10/04/17 10/05/17 06:59 06:59 06:59 Intake Total 940 1440 Balance 940 1440 Result Diagrams: 10/04/17 04:58 10/04/17 04:58 Additional Labs: Microbiology 09/29/17 14:13 Nasal swab Influenza Types A,B Direct EIA - Final 09/29/17 14:11 Venous blood - Left Arm Blood Culture - Final Methicillin resistant S.aureus Enterococcus faecalis Coagulase Neg Staphylococcus 09/29/17 14:11 Venous blood - Right Hand Blood Culture - Preliminary NO GROWTH AT 48 HOURS Laboratory Tests 09/29/17 09/29/17 09/29/17 14:11 14:11 14:11 WBC 17.0 H Potassium 3.8 Lactic Acid 3.1 H Vancomycin Trough Random Vancomycin 09/29/17 09/30/17 09/30/17 17:53 04:41 04:41 WBC 12.8 H Potassium 3.3 L Lactic Acid 2.1 Vancomycin Trough Random Vancomycin 10/01/17 10/02/17 10/02/17 22:42 10:34 10:34 WBC 17.7 H Potassium Lactic Acid Vancomycin Trough 26.1 Random Vancomycin 17.0 EKG Reviewed by me: Yes (Tele - SR in 70's) Phys Exam - Physical Examination Constitutional: NAD HEENT: PERRLA, oral pharynx no lesions Neck: no JVD, supple Respiratory: no wheezing Cardiovascular: RRR Gastrointestinal: soft, non-tender, no distention, positive bowel sounds Musculoskeletal: pulses present, edema present Neurological: moves all 4 limbs Psychiatric: A&O x 3 Skin: normal turgor, cap refill <2 seconds Dx/Plan (1) Healthcare associated bacterial pneumonia Code(s): J15.9 - UNSPECIFIED BACTERIAL PNEUMONIA Status: Acute Comment: suspected though CXR was unrevealing, continue Cefepime and Vancomycin, pulmonary support, Duonebs (2) Sepsis Code(s): A41.9 - SEPSIS, UNSPECIFIED ORGANISM Status: Suspected Comment: Secondary to #1, see above, blood cx with MRSA and Enterococcus spp, await final sensitivities, continue Vanc/Cefepime another 24h then consider transition to po abx (3) Afib Code(s): I48.91 - UNSPECIFIED ATRIAL FIBRILLATION Status: Acute Qualifiers: Atrial fibrillation type: chronic Qualified Code(s): I48.2 - Chronic atrial fibrillation Comment: RVR noted on tele, Cardizem gtt d/c'd, Flecainide 50mg BID for rhythm control, Metoprolol 50mg daily, no anticoagulation due to hx of bleeding, ASA 81mg daily (4) COPD (chronic obstructive pulmonary disease) Status: Chronic Comment: Continue general pulm support (5) Hypokalemia Code(s): E87.6 - HYPOKALEMIA Status: Acute (6) MRSA (methicillin resistant staph aureus) culture positive Code(s): Z22.322 - CARRIER OR SUSPECTED CARRIER OF METHICILLIN RESIS STAPH Status: Acute Comment: Acute/?chronic, continue Vancomycin (7) Physical deconditioning Code(s): R53.81 - OTHER MALAISE Status: Chronic Comment: PT evaluation and SNF options - Plan plan discussed w/ family, continue antibiotics, PT/OT, psychiatric social worker, DVT proph w/SCDs Stable currently -: Continue Cefepime and Vancomycin another 24h then convert to po -: Change KCL 40meq BID -: Change Lasix 40mg po daily -: AM lab: BMP, CBC * .
[2017-10-04] MEDS ORDERED: Potassium Chloride 20 MEQ TAB PO SCH (19:00)
--- NOTE | 2017-10-04 20:10 | CON ---
DATE OF CONSULTATION: 10/04/2017 REFERRING PHYSICIAN: Dr. Abdi Jaramillo I am seeing Ms. Santizo at [facility] telemetry floor as an electrophysiology risk assessment consultant. Her problems are: 1. Recurrent supraventricular tachycardia. A. Prior history of SVT on EP study on 06/26/2015 demonstrating no inducible supraventricular tachyca rdia. B. Current admission again with bronchitis, just like in 2015 with runs of narrow complex SVT, likely atrial tachycardia, occasional with bundle branch aberration, and rapid rates up to 200 beats per mi nute, but again, nonsustained. C. Good suppression with flecainide: 2. Questionable history of atrial fibrillation noted to be in SVT in 2014. 3. Structurally normal heart area 50-55%, mild left atrial enlargement, mild MR, mild AI, mild to mo derate TR on echo 10/03/2017. 4. Pulmonary disease with history of recurrent bronchitis, COPD. 5. History of hypothyroidism. 6. History of hypertension. 7. History of anxiety, depression. 8. Hyperlipidemia. 9. GERD 10. History of elevated BMI. ALLERGIES: AMOXICILLIN, CLAVULANIC ACID, CIPRO causes a rash, ERYTHROMYCIN causing nausea, FENTANYL, LASIX causes rash, METOLAZONE, NABUMETONE, OXYCODONE and SULFA. SUBJECTIVE: Ms. Santizo is here due to a bronchitis exacerbation. She was noted to have rapid hear tbeats. Initially was treated as an outpatient on the with prednisone and steroid injections du e to fever and cough. She decided to come to the ER. She was evaluated, received vancomycin, now he r symptoms are much improved. While being monitored on telemetry she developed rapid narrow complex supraventricular arrhythmias which transitioned to similar cycle length, but aberrated arrhythmia. T hey mostly seem to be regular, irregular and previous history preceding the QRS suggestive of possibl e atrial tachyarrhythmia in origin and some EKG is also multifocal atrial tachyarrhythmia episodes ar e also seen. She had no stroke-like symptoms. No neurological deficits at this time or in the past. She denies a ngina, no fever, loss of consciousness. No bleeding issues are documented at this time. In the past on Lovenox she might have had skin bleeds. The rest of 12 point review of systems otherwise unremarkable. PAST MEDICAL HISTORY: As above including GERD, hypertension, anxiety, COPD, hyperlipidemia, hyperten issac, no prior history of heart disease or heart attacks. SOCIAL HISTORY: The patient denies smoking, ETOH or drug use. FAMILY HISTORY: Negative for clotting disorder or immune dysfunction. OBJECTIVE DATA: VITAL SIGNS: Blood pressure is 146/65, heart rate 80, respirations 12, temperature 97.8 degrees Fahr enheit. GENERAL: She is alert and oriented woman in no apparent distress. NECK: Supple. Jugular veins not distended. CHEST: Coarse without crackles. CARDIOVASCULAR: Heart sounds are regular to rate and rhythm. No murmur or gallop. ABDOMEN: Benign. Bowel sounds positive. EXTREMITIES: Lower extremities without edema, clubbing or cyanosis. Pulses are adequate. NEUROLOGIC: Patient is nonfocal. MUSCULOSKELETAL: No joint swelling or deformities. SKIN: Without rash. DATABASE: Initial EKG reveals possible multifocal atrial tachycardia, rate of 130 beats per minute. Subsequent EKGs reveal sinus rhythm with occasional runs of rapid atrial tachyarrhythmias which are very rapid up to 200 beats per minute, 190 beats per minute are noted. Somewhat rapid beats, transitioning from wide complex to narrow complex with same cycle length, are not very clearly visible, but possibly preceding the QRS. LABORATORY DATA: White count 16.6, hemoglobin 12.1, platelet count is 294. Sodium 138, potassium 3. 3, BUN is 20, creatinine 0.89. ASSESSMENT AND PLAN: Ms. Santizo is a pleasant 77-year-old woman with prior history of COPD and rec urrent bronchitis episode in [facility] and this admission as well. She had a similar episode also in 2014, at which point initially atrial fibrillation was told to be present just like now, but kaia ntually she was diagnosed to have SVTs. At that point she was treated with amiodarone as well and th en subsequent EP study was negative. Currently, she is on flecainide, which was initiated on the 24t h at 9:00 p.m. and currently suppressing these arrhythmias very well. She is also on moderate dose m etoprolol. I discussed the diagnosis and treatment options with her. I do not think she had true sustained atri al fibrillation, more like moderate atrial arrhythmias present initially which is a common rhythm in the setting of COPD exacerbation. On the other hand, at times she has very rapid conduction as well. Therefore, AV munira blocking agents are highly advised in this situation. If beta blockers are philomena sonable versus we can switch her amlodipine to diltiazem as well, should the alternative option. On the other hand, it is also reasonable to continue flecainide which is already initiated by Dr. Aman mcdonnell, was start at this point. This regimen works very well for her and is improving her pulmonary sta tus. The episodes of arrhythmias disappear. I do not think it is significant benefit from a repeat EP study, hence it was negative in the past. Also, has no definite atrial fibrillation was seen. I would refrain from full anticoagulation and that has been documented in the future. Also, we could consider taking her off flecainide long-term, but for now, hence it is working very we ll, it might be reasonable to continue as well. On the other hand, she might benefit from long-term AV munira blocking agent therapy. I did discuss with her and her and I will discuss with Dr. Rios who is covering cardiolog ist. Thank you again for allowing me to participate in the care of this patient.
[2017-10-04] MEDS: ALPRAZolam 0.25 MG TAB PO SCH (21:39)
[2017-10-05] MEDS: Vancomycin HCl 1 GM in Premix Bag 1 BAG IVPB SCH (00:01)
[2017-10-05 01:25] LABS: Vancomycin, Random 17.2 ug/mL (See Comment)
[2017-10-05] MEDS ORDERED: VANCOMYCIN IVPB PRN (01:27)
[2017-10-05 05:35] LABS: Anion Gap 13 mmol/L (10-20); BUN (Urea Nitrogen) 22 mg/dL (9.8-20.1); Calc. Creatinine Clearance 72 mL/min (70-130); Calcium 9.4 mg/dL (7.8-10.44); Carbon Dioxide 23 mmol/L (23-31); Chloride 106 mmol/L (98-107); Estimated GFR-MDRD 58; Glucose 85 mg/dL (83-110); Sodium 138 mmol/L (136-145)
[2017-10-05] MEDS: Vancomycin HCl 1.25 GM in Sodium Chloride 0.9% 250 ML 250 ML IVPB SCH (05:43)
[2017-10-05] MEDS: Levothyroxine Sodium 125 MCG TAB PO SCH (05:44)
[2017-10-05 06:11] LABS: Eosinophils 1 % (0-10); Hemoglobin 12.3 g/dL (12.0-16.0); Lymphocytes 24 % (21-51); MDiff Complete? YES; Mean Corpuscular HGB CONC 32.4 g/dL (32.0-36.0); Mean Corpuscular Hemoglobin 30.6 pg (27.0-31.0); Mean Corpuscular Volume 94.5 fl (81.0-99.0); Mean Platelet Volume 6.9 fL (7.4-10.4); Monocytes 6 % (0-10); Neutrophil 69 % (42-75); Platelet Count 295 thou/uL (130-400); RBC Distribution Width 12.8 % (11.5-14.5); Red Blood Cell (RBC) Count 4.01 mill/uL (4.20-5.40); White Blood Cell (WBC) Count 16.2 thou/uL (4.8-10.8)
--- NOTE | 2017-10-05 08:39 | PRG ---
DATE OF SERVICE: 10/05/2017 HISTORY: Ms. Santizo from a cardiovascular standpoint appear stable. She has remained in sinus rhy thm. She has not had any recurrent episodes of supraventricular tachycardia since 10/02/2017. She w as seen and evaluated by Dr. Hernandez yesterday. He did recommend continued Flecainide therapy and not p roceed with anticoagulation treatment. PHYSICAL EXAMINATION: VITAL SIGNS: Blood pressure 136/61, pulse 87, temperature 97.4. LUNGS: Rales and rhonchi bilateral. HEART: Regular rate and rhythm. ABDOMEN: Soft, nontender, nondistended. EXTREMITIES: No edema. PERTINENT LABORATORY: Hemoglobin 12.3, creatinine 0.93. IMPRESSION: 1. Supraventricular tachycardia with premature atrial contractions. 2. Community acquired pneumonia. RECOMMENDATIONS: Continue Flecainide at 50 mg 1 p.o. q.12h. Would also recommend continuing aspirin at 81 q.a.m. in addition to atorvastatin. She is on vancomycin for antibiotic coverage.
[2017-10-05] MEDS: Mometasone 100 MCG HFA INHALER INH SCH ×2 (08:45→19:15)
[2017-10-05] MEDS: Nystatin Powder 15 GM BOT TOP SCH ×2 (10:52→20:34)
[2017-10-05] MEDS: carBAMazepine 100 mg Chewable Tablet PO SCH ×2 (10:53→20:35)
[2017-10-05] MEDS: Saccharomyces boulardii 250 MG CAP PO SCH (10:54)
[2017-10-05] MEDS: Gabapentin 400 MG CAP PO SCH ×3 (10:54→20:39)
[2017-10-05] MEDS: Furosemide 40 MG TAB PO SCH (10:54)
[2017-10-05] MEDS: predniSONE 20 MG TAB PO SCH (10:55)
[2017-10-05] MEDS: Aspirin 81 mg Enteric Coated Tablet PO SCH (10:55)
[2017-10-05] MEDS: guaiFENesin ER 600 MG TAB PO SCH ×2 (10:55→20:33)
[2017-10-05] MEDS: FLUoxetine HCl 20 MG CAP PO SCH (10:55)
[2017-10-05] MEDS: Amlodipine 5 MG TAB PO SCH (10:55)
[2017-10-05] MEDS: Atorvastatin Calcium 10 MG TAB PO SCH (10:55)
[2017-10-05] MEDS: TROSPIUM 20 MG TABLET PO SCH ×2 (10:56→20:34)
[2017-10-05] MEDS: Valsartan 80 MG TAB PO SCH (10:56)
[2017-10-05] MEDS: Famotidine 20 MG TAB PO SCH ×2 (10:56→20:33)
[2017-10-05] MEDS: Enoxaparin Sodium 40 MG/0.4 ML SYRINGE SC SCH ×2 (10:56→11:04)
[2017-10-05] MEDS: Cefepime 2 GM, Syringe 2.5 ML in Sterile Water 10 ML SLOW IVP SCH ×2 (11:08→21:14)
[2017-10-05] MEDS: HYDROcodone/Acetaminophen 10/325 mg Tablet PO PRN ×2 (11:09→21:13)
[2017-10-05] MEDS: Potassium Chloride 20 MEQ TAB PO SCH ×2 (11:15→16:52)
--- NOTE | 2017-10-05 11:53 | PDOC.PN ---
- Subjective Encounter Start Date: 10/05/17 Encounter Start Time: 11:52 Patient seen and examined. No new complaints. No overnight events. still weak at bedside. - Objective Resuscitation Status: Resuscitation Status FULL:Full Resuscitation MAR Reviewed: Yes Vital Signs & Weight: Vital Signs (12 hours) Temp Pulse Resp BP BP Pulse Ox 10/05/17 10:55 92 179/85 H 10/05/17 08:45 64 12 10/05/17 08:33 64 12 10/05/17 04:00 97.4 F L 80 25 H 136/61 98 10/05/17 00:49 71 16 92 L 10/05/17 00:00 97.5 F L 83 20 133/62 97 Weight Weight 199 lb I&O: 10/04/17 10/05/17 10/06/17 06:59 06:59 06:59 Intake Total 1440 1235 Output Total 0 Balance 1440 1235 Result Diagrams: 10/05/17 04:34 10/05/17 04:34 Phys Exam - Physical Examination fatigue and weakness present HEENT: sclera anicteric Neck: supple Respiratory: no wheezing, no rales S1S2 heard Gastrointestinal: soft Musculoskeletal: no edema Neurological: non-focal Psychiatric: normal affect Skin: no rash Dx/Plan (1) Afib Code(s): I48.91 - UNSPECIFIED ATRIAL FIBRILLATION Status: Acute Qualifiers: Atrial fibrillation type: chronic Qualified Code(s): I48.2 - Chronic atrial fibrillation Comment: RVR noted on tele, Cardizem gtt d/c'd, Flecainide 50mg BID for rhythm control, Metoprolol 50mg daily, no anticoagulation due to hx of bleeding, ASA 81mg daily (2) Hypokalemia Code(s): E87.6 - HYPOKALEMIA Status: Acute (3) Pneumonia Code(s): J18.9 - PNEUMONIA, UNSPECIFIED ORGANISM Status: Acute (4) COPD (chronic obstructive pulmonary disease) Status: Chronic Comment: Continue general pulm support (5) Sepsis Code(s): A41.9 - SEPSIS, UNSPECIFIED ORGANISM Status: Suspected Comment: Secondary to #1, see above, blood cx with MRSA and Enterococcus spp, await final sensitivities, continue Vanc/Cefepime another 24h then consider transition to po abx (6) Bronchitis Code(s): J40 - BRONCHITIS, NOT SPECIFIED ACUTE OR CHRONIC Status: Acute (7) SIRS (systemic inflammatory response syndrome) Code(s): R65.10 - SIRS OF NON-INFECTIOUS ORIGIN W/O ACUTE ORGAN DYSFUNCTION Status: Acute Comment: final culture results negative for bacterial growth, transitioned to oral doxycycline (8) Hypertension Code(s): I10 - ESSENTIAL (PRIMARY) HYPERTENSION Status: Chronic Qualifiers: (9) Hypothyroidism Code(s): E03.9 - HYPOTHYROIDISM, UNSPECIFIED Status: Chronic Qualifiers: (10) Obesity (BMI 30-39.9) Code(s): E66.9 - OBESITY, UNSPECIFIED Status: Chronic (11) Physical deconditioning Code(s): R53.81 - OTHER MALAISE Status: Chronic Comment: PT evaluation and SNF options - Plan cont current plan of care, plan discussed w/ family, continue antibiotics, PT/OT , social media intern, respiratory therapy * . continue abx f/u with cardiology and EP. AM labs.
[2017-10-05] MEDS: ALPRAZolam 0.25 MG TAB PO SCH (20:33)
--- NOTE | 2017-10-05 21:54 | PRG ---
DATE OF SERVICE: 10/05/2017 ELECTROPHYSIOLOGY FOLLOWUP NOTE SUBJECTIVE: Ms. Santizo seems to be more confused today than before. Otherwise, no new arrhythmia symptoms noted. She continues to be weak. OBJECTIVE: VITAL SIGNS: Blood pressure is 136/61, heart rate 80, respiratory rate is 25, temperature 97.4 degre es Fahrenheit. GENERAL: This is alert and oriented woman x2. NECK: Supple. Jugular veins not distended. CHEST: Coarse, no crackles. CARDIOVASCULAR: Heart sounds are regular to rate and rhythm. No murmur or gallop. ABDOMEN: Benign. Bowel sounds positive. EXTREMITIES: Lower extremities without edema, clubbing or cyanosis. DATABASE: EKG reveals sinus rhythm with occasional PVCs. No supraventricular tachyarrhythmias are s een. ASSESSMENT AND PLAN: Ms. Santizo is a pleasant 77-year-old woman with history of chronic obstructiv e pulmonary disease, bronchitis, prior atrial arrhythmias, who is presenting with a recent bronchitis exacerbation, worsening despite outpatient therapy, also noted to have palpitations. She has runs o f narrow complex supraventricular tachyarrhythmias. She had prior EP study demonstrating no inducibl e SVT at that time. For now, rhythm with flecainide. PLAN: 1. Supraventricular tachycardia, likely due to atrial tachyarrhythmias. Currently, I would continue flecainide at lower dose. Hopefully, her respiratory status clears up. We might consider discontin uing flecainide long-term. 2. Pulmonary management as per primary team. 3. For now, the patient is off anticoagulant as note to atrial fibrillation has been documented.
[2017-10-06 05:16] LABS: #Basophils 0.1 thou/uL (0.0-0.2); #Eosinphils 0.2 thou/uL (0.0-0.7); #Monocytes 1.4 thou/uL (0.11-0.59); #Neutrophils 10.1 thou/uL (1.40-6.50); %Basophils 0.5 % (0.0-1.0); %Eosinophils 1.4 % (0.0-10.0); %Lymphocytes 20.2 % (21.0-51.0); %Monocytes 9.7 % (0.0-10.0); %Neutrophils 68.2 % (42.0-75.0); Hemoglobin 12.9 g/dL (12.0-16.0); Mean Platelet Volume 7.1 fL (7.4-10.4); Platelet Count 293 thou/uL (130-400); RBC Distribution Width 12.8 % (11.5-14.5); Red Blood Cell (RBC) Count 4.15 mill/uL (4.20-5.40); White Blood Cell (WBC) Count 14.8 thou/uL (4.8-10.8)
[2017-10-06 05:29] LABS: Anion Gap 15 mmol/L (10-20); BUN (Urea Nitrogen) 22 mg/dL (9.8-20.1); Calc. Creatinine Clearance 63 mL/min (70-130); Calcium 9.7 mg/dL (7.8-10.44); Carbon Dioxide 20 mmol/L (23-31); Chloride 108 mmol/L (98-107); Estimated GFR-MDRD 50; Glucose 89 mg/dL (83-110); Sodium 139 mmol/L (136-145)
[2017-10-06] MEDS: Vancomycin HCl 1.25 GM in Sodium Chloride 0.9% 250 ML 250 ML IVPB SCH (06:14)
[2017-10-06] MEDS: Levothyroxine Sodium 125 MCG TAB PO SCH (06:14)
[2017-10-06] MEDS: Mometasone 100 MCG HFA INHALER INH SCH ×2 (07:04→18:53)
--- NOTE | 2017-10-06 07:53 | PDOC.PN ---
- Subjective Encounter Start Date: 10/06/17 Encounter Start Time: 07:50 Subjective: Seen and examined-no new complaint - Objective Resuscitation Status: Resuscitation Status FULL:Full Resuscitation Vital Signs & Weight: Vital Signs (12 hours) Temp Pulse Resp BP BP Pulse Ox 10/06/17 07:04 80 14 10/06/17 04:00 97.9 F 70 17 166/77 H 92 L 10/06/17 00:35 63 16 93 L 10/06/17 00:00 97.6 F 62 18 156/70 H 90 L 10/05/17 20:00 98.4 F 63 16 176/74 H 94 L Weight Weight 199 lb I&O: 10/05/17 10/06/17 10/07/17 06:59 06:59 06:59 Intake Total 1235 1310 Output Total 0 Balance 1235 1310 Result Diagrams: 10/06/17 04:48 10/06/17 04:48 Phys Exam - Physical Examination Constitutional: NAD HEENT: PERRLA, moist MMs, sclera anicteric, TM's clear Neck: no nodes, no JVD, supple, full ROM Respiratory: no wheezing, no rales, no rhonchi, clear to auscultation bilateral Cardiovascular: RRR, no significant murmur, no rub Gastrointestinal: soft, non-tender, no distention, positive bowel sounds Musculoskeletal: no edema, pulses present Dx/Plan (1) Pneumonia Code(s): J18.9 - PNEUMONIA, UNSPECIFIED ORGANISM Status: Acute (2) COPD (chronic obstructive pulmonary disease) Status: Chronic Comment: Continue general pulm support (3) Afib Code(s): I48.91 - UNSPECIFIED ATRIAL FIBRILLATION Status: Acute Qualifiers: Atrial fibrillation type: chronic Qualified Code(s): I48.2 - Chronic atrial fibrillation Comment: RVR noted on tele, Cardizem gtt d/c'd, Flecainide 50mg BID for rhythm control, Metoprolol 50mg daily, no anticoagulation due to hx of bleeding, ASA 81mg daily (4) Hypertension Code(s): I10 - ESSENTIAL (PRIMARY) HYPERTENSION Status: Chronic Qualifiers: (5) Hypokalemia Code(s): E87.6 - HYPOKALEMIA Status: Acute (6) MRSA (methicillin resistant staph aureus) culture positive Code(s): Z22.322 - CARRIER OR SUSPECTED CARRIER OF METHICILLIN RESIS STAPH Status: Acute Comment: Acute/?chronic, continue Vancomycin - Plan plan discussed w/ family, continue antibiotics, PT/OT, social media manager, respiratory therapy EP following--lower dose of flecainide -: Dispo planning * .
[2017-10-06] MEDS: Gabapentin 400 MG CAP PO SCH ×3 (08:15→22:03)
[2017-10-06] MEDS: Enoxaparin Sodium 40 MG/0.4 ML SYRINGE SC SCH (10:00)
[2017-10-06] MEDS: Cefepime 2 GM, Syringe 2.5 ML in Sterile Water 10 ML SLOW IVP SCH ×2 (10:30→22:25)
[2017-10-06] MEDS: Nystatin Powder 15 GM BOT TOP SCH ×2 (12:17→22:22)
[2017-10-06] MEDS: TROSPIUM 20 MG TABLET PO SCH ×2 (12:17→22:02)
[2017-10-06] MEDS: Aspirin 81 mg Enteric Coated Tablet PO SCH (12:19)
[2017-10-06] MEDS: Potassium Chloride 20 MEQ TAB PO SCH ×2 (12:19→17:13)
[2017-10-06] MEDS: Amlodipine 5 MG TAB PO SCH (12:19)
[2017-10-06] MEDS: Valsartan 80 MG TAB PO SCH (12:21)
[2017-10-06] MEDS: Famotidine 20 MG TAB PO SCH ×2 (12:22→22:03)
[2017-10-06] MEDS: Atorvastatin Calcium 10 MG TAB PO SCH (12:22)
[2017-10-06] MEDS: Furosemide 40 MG TAB PO SCH (12:22)
[2017-10-06] MEDS: predniSONE 20 MG TAB PO SCH (12:22)
[2017-10-06] MEDS: Saccharomyces boulardii 250 MG CAP PO SCH (12:22)
[2017-10-06] MEDS: FLUoxetine HCl 20 MG CAP PO SCH (12:22)
[2017-10-06] MEDS: guaiFENesin ER 600 MG TAB PO SCH ×2 (12:22→22:03)
[2017-10-06] MEDS: carBAMazepine 100 mg Chewable Tablet PO SCH ×2 (12:23→22:04)
--- NOTE | 2017-10-06 13:45 | PDOC.CTH ---
<Elisha Devries - Last Filed: 10/06/17 13:46> Cardiology Progress Note - Subjective The pt seen and examined. No overnight events. No cardiac complaints. She stated she did not feel "right" at this moment; however, she cannot describe the symptoms and denied SOB or other cardiac complaints at this time. - Objective Vital Signs Temp Pulse Resp BP BP Pulse Ox 10/06/17 12:59 60 14 10/06/17 12:19 74 135/78 10/06/17 12:00 98.5 F 67 16 137/82 92 L 10/06/17 07:04 80 14 10/06/17 04:00 97.9 F 70 17 166/77 H 92 L Weight 199 lb 10/05/17 10/06/17 10/07/17 06:59 06:59 06:59 Intake Total 1235 1310 Output Total 0 Balance 1235 1310 - Physical Examination General/Neuro: alert & oriented x3 Neck: no JVD present Lungs: other: (coases and diminished at bases) Heart: RRR Abdomen: soft Extremities: other: (No edemas) - Telemetry Telemetry Rhythm: SR with PVCs - Labs Result Diagrams: 10/06/17 04:48 10/06/17 04:48 - Assessment/Plan 1. Hx of SVT - Remain SR and PVCs with Flecainide; f/u by EP 2. Hx of Afib - Remain SR with PVCs with current medication; no no anticoagulation due to hx of bleeding, ASA 81mg daily 3. Healthcare associated bacterial pneumonia - stable with current medication; managed by PCP 4. HTN - stable; cont. monitor 5. Hyperlipidemia - on Statin 6. Hypothyroidism - on Levothyroxin; managed by PCP 7. Anxiety/Depression - stable; managed by PCP MAR reviewed . Review of Systems - Review of Systems Constitutional: reports: see HPI EENTM: reports: no symptoms reported Respiratory: reports: no symptoms reported Cardiac (ROS): reports: no symptoms reported ABD/GI: reports: no symptoms reported : reports: no symptoms reported Musculoskeletal: reports: no symptoms reported <Reanna Lino - Last Filed: 10/06/17 18:35> Cardiology Progress Note - Objective Vital Signs Temp Pulse Resp BP BP Pulse Ox 10/06/17 15:15 98.6 F 68 20 136/61 92 L 10/06/17 12:59 60 14 10/06/17 12:19 74 135/78 10/06/17 12:00 98.5 F 67 16 137/82 92 L 10/06/17 07:04 80 14 Weight 199 lb 10/05/17 10/06/17 10/07/17 06:59 06:59 06:59 Intake Total 1235 1310 Output Total 0 Balance 1235 1310 - Labs Result Diagrams: 10/06/17 04:48 10/06/17 04:48 - Assessment/Plan Pt. seen and eval. by me. I agree with the A/P by the AERIAL PHOTOGRAMMETRIST.
--- NOTE | 2017-10-06 18:04 | PRG ---
DATE OF SERVICE: 10/06/2017 SUBJECTIVE: Ms. Santizo seems to be doing fair. No new arrhythmia symptoms are noted. OBJECTIVE DATA: VITAL SIGNS: Blood pressure is 135/78, heart rate 74, respirations 14, temperature 98.5 degrees Fahr enheit. GENERAL: Alert and oriented woman in no apparent distress. NECK: Supple. Jugular veins not distended. CHEST: Coarse without crackles. CARDIOVASCULAR: Heart sounds are regular to rate and rhythm. No murmur or gallop. ABDOMEN: Benign. Bowel sounds positive. EXTREMITIES: Lower extremities without edema, clubbing or cyanosis. DATABASE: The telemetry strips reveals sinus rhythm without recurrent atrial arrhythmias. ASSESSMENT: 1. Paroxysmal atrial tachycardia well suppressed with flecainide seems to be mostly occurring when h er respiratory status worsened. Currently, well controlled on flecainide, continue current managemen t. 2. Pulmonary issues, well controlled. 3. Hypertension, well controlled. PLAN: Outpatient followup.
[2017-10-06] MEDS: ALPRAZolam 0.25 MG TAB PO SCH (22:04)
[2017-10-06] MEDS: HYDROcodone/Acetaminophen 10/325 mg Tablet PO PRN (22:19)
[2017-10-07 05:52] LABS: Vancomycin, Trough 25.5 ug/mL
[2017-10-07] MEDS: Levothyroxine Sodium 125 MCG TAB PO SCH (06:08)
[2017-10-07] MEDS: Vancomycin HCl 1.25 GM in Sodium Chloride 0.9% 250 ML 250 ML IVPB SCH (06:24)
[2017-10-07] MEDS: Mometasone 100 MCG HFA INHALER INH SCH ×2 (07:59→19:14)
[2017-10-07] MEDS: FLUoxetine HCl 20 MG CAP PO SCH (08:39)
[2017-10-07] MEDS: Saccharomyces boulardii 250 MG CAP PO SCH (08:39)
[2017-10-07] MEDS: Nystatin Powder 15 GM BOT TOP SCH ×2 (08:40→20:24)
[2017-10-07] MEDS: Furosemide 40 MG TAB PO SCH (08:44)
[2017-10-07] MEDS: Potassium Chloride 20 MEQ TAB PO SCH ×2 (08:44→16:50)
[2017-10-07] MEDS: Amlodipine 5 MG TAB PO SCH (08:44)
[2017-10-07] MEDS: predniSONE 20 MG TAB PO SCH (08:44)
[2017-10-07] MEDS: TROSPIUM 20 MG TABLET PO SCH ×2 (08:45→20:15)
[2017-10-07] MEDS: Gabapentin 400 MG CAP PO SCH ×3 (08:45→20:14)
[2017-10-07] MEDS: Aspirin 81 mg Enteric Coated Tablet PO SCH (08:45)
[2017-10-07] MEDS: carBAMazepine 100 mg Chewable Tablet PO SCH ×2 (08:45→20:15)
[2017-10-07] MEDS: Enoxaparin Sodium 40 MG/0.4 ML SYRINGE SC SCH (08:45)
[2017-10-07] MEDS: guaiFENesin ER 600 MG TAB PO SCH ×2 (08:45→20:14)
[2017-10-07] MEDS: Famotidine 20 MG TAB PO SCH ×2 (08:45→20:15)
[2017-10-07] MEDS: Atorvastatin Calcium 10 MG TAB PO SCH (08:45)
[2017-10-07] MEDS: Valsartan 80 MG TAB PO SCH (08:46)
[2017-10-07] MEDS: Cefepime 2 GM, Syringe 2.5 ML in Sterile Water 10 ML SLOW IVP SCH ×2 (09:43→21:25)
[2017-10-07] MEDS: HYDROcodone/Acetaminophen 10/325 mg Tablet PO PRN ×3 (12:38→20:17)
--- NOTE | 2017-10-07 14:25 | PDOC.CTH ---
<Elisha Devries - Last Filed: 10/07/17 14:23> Cardiology Progress Note - Subjective The pt seen and examined. No overnight events. No cardiac complaints. She denied any cardiac complaints. She voiced she would like to go home. Daughter was at the bed side; questions were answered - Objective Vital Signs Temp Pulse Resp BP Pulse Ox 10/07/17 11:45 97.8 F 63 18 124/63 98 10/07/17 08:35 97.3 F L 65 18 93 L 10/07/17 08:31 97.3 F L 65 18 136/72 93 L 10/07/17 08:01 95 10/07/17 08:00 75 16 95 10/07/17 03:22 97.6 F 56 L 20 132/87 95 Weight 199 lb 2 oz 10/06/17 10/07/17 10/08/17 06:59 06:59 06:59 Intake Total 1310 1320 Balance 1310 1320 - Physical Examination General/Neuro: alert & oriented x3 Neck: no JVD present Lungs: other: (diminished at bases) Heart: RRR Abdomen: soft Extremities: other: (No edemas) - Telemetry Telemetry Rhythm: SR - Labs Result Diagrams: 10/06/17 04:48 10/06/17 04:48 - Assessment/Plan 1. Hx of SVT - Remain SR and PVCs with Flecainide; f/u by EP 2. Hx of Afib - Remain SR with PVCs with current medication; no anticoagulation due to hx of bleeding, ASA 81mg daily 3. Healthcare associated bacterial pneumonia - stable with current medication; managed by PCP 4. HTN - stable; cont. monitor 5. Diastolic HF - Echo on 09/28/17 showed EF 50-55%, grade I diastolic dysfunction, mild MR, mild AR, and mild-mod TR; Stable; cont. monitor 6. Hyperlipidemia - on Statin 7. Hypothyroidism - on Levothyroxin; managed by PCP 8. Anxiety/Depression - stable; managed by PCP MAR reviewed Review of Systems - Review of Systems Constitutional: reports: no symptoms reported EENTM: reports: no symptoms reported Respiratory: reports: no symptoms reported Cardiac (ROS): reports: no symptoms reported ABD/GI: reports: no symptoms reported : reports: no symptoms reported Musculoskeletal: reports: no symptoms reported Skin: reports: no symptoms reported <Reanna Lino - Last Filed: 10/07/17 16:19> Cardiology Progress Note - Objective Vital Signs Temp Pulse Resp BP Pulse Ox 10/07/17 11:45 97.8 F 63 18 124/63 98 10/07/17 08:35 97.3 F L 65 18 93 L 10/07/17 08:31 97.3 F L 65 18 136/72 93 L 10/07/17 08:01 95 10/07/17 08:00 75 16 95 Weight 199 lb 2 oz 10/06/17 10/07/17 10/08/17 06:59 06:59 06:59 Intake Total 1310 1320 Balance 1310 1320 - Labs Result Diagrams: 10/06/17 04:48 10/06/17 04:48 - Assessment/Plan Pt. seen and eval. by me. i agree with the A/P by the LAND MEASURER. Continue medical tx. for PNA. Cardiac status is stable.
--- NOTE | 2017-10-07 17:41 | PDOC.PN ---
- Subjective Encounter Start Date: 10/07/17 Encounter Start Time: 17:39 Subjective: seen and examined no new complaint - Objective Resuscitation Status: Resuscitation Status FULL:Full Resuscitation Vital Signs & Weight: Vital Signs (12 hours) Temp Pulse Resp BP Pulse Ox 10/07/17 15:15 97.3 F L 67 15 133/59 L 96 10/07/17 11:45 97.8 F 63 18 124/63 98 10/07/17 08:35 97.3 F L 65 18 93 L 10/07/17 08:31 97.3 F L 65 18 136/72 93 L 10/07/17 08:01 95 10/07/17 08:00 75 16 95 Weight Weight 199 lb 2 oz I&O: 10/06/17 10/07/17 10/08/17 06:59 06:59 06:59 Intake Total 1310 1320 Balance 1310 1320 Result Diagrams: 10/06/17 04:48 10/06/17 04:48 Phys Exam - Physical Examination Constitutional: NAD HEENT: PERRLA, moist MMs, sclera anicteric, TM's clear Neck: no nodes, no JVD, supple, full ROM Respiratory: no wheezing, no rales, clear to auscultation bilateral Cardiovascular: RRR, no significant murmur, no rub Gastrointestinal: soft, non-tender, no distention, positive bowel sounds Dx/Plan (1) Pneumonia Code(s): J18.9 - PNEUMONIA, UNSPECIFIED ORGANISM Status: Acute (2) COPD (chronic obstructive pulmonary disease) Status: Chronic Comment: Continue general pulm support (3) Afib Code(s): I48.91 - UNSPECIFIED ATRIAL FIBRILLATION Status: Acute Qualifiers: Atrial fibrillation type: chronic Qualified Code(s): I48.2 - Chronic atrial fibrillation Comment: RVR noted on tele, Cardizem gtt d/c'd, Flecainide 50mg BID for rhythm control, Metoprolol 50mg daily, no anticoagulation due to hx of bleeding, ASA 81mg daily (4) Hypertension Code(s): I10 - ESSENTIAL (PRIMARY) HYPERTENSION Status: Chronic Qualifiers: (5) Hypokalemia Code(s): E87.6 - HYPOKALEMIA Status: Acute (6) MRSA (methicillin resistant staph aureus) culture positive Code(s): Z22.322 - CARRIER OR SUSPECTED CARRIER OF METHICILLIN RESIS STAPH Status: Acute Comment: Acute/?chronic, continue Vancomycin - Plan plan discussed w/ family, continue antibiotics, PT/OT, nursing home social worker, respiratory therapy d/c vancomycin -: start po doxycicline in anticipation for discharge * .
[2017-10-07] MEDS: ALPRAZolam 0.25 MG TAB PO SCH (20:15)
[2017-10-07] MEDS: Doxycycline 100 MG CAP PO SCH (20:15)
[2017-10-07] MEDS ORDERED: Vancomycin HCl 750 MG in Sodium Chloride 0.9% 250 ML 250 ML IVPB SCH (21:00)
[2017-10-08] MEDS: Levothyroxine Sodium 125 MCG TAB PO SCH (06:21)
[2017-10-08] MEDS: Mometasone 100 MCG HFA INHALER INH SCH ×2 (07:09→19:26)
--- NOTE | 2017-10-08 10:05 | PDOC.PN ---
- Subjective Encounter Start Date: 10/08/17 Encounter Start Time: 10:03 Patient seen and examined. No new complaints. No overnight events. feels better. cough better. still weak. Talked with daughter over the phone. - Objective Resuscitation Status: Resuscitation Status FULL:Full Resuscitation MAR Reviewed: Yes Vital Signs & Weight: Vital Signs (12 hours) Temp Pulse Resp BP BP BP Pulse Ox 10/08/17 08:50 98.1 F 57 L 16 118/72 92 L 10/08/17 07:07 72 16 94 L 10/08/17 04:00 96.3 F L 46 L 20 113/57 L 95 10/08/17 00:00 96.9 F L 57 L 18 105/55 L 98 10/07/17 23:51 93 L Weight Weight 189 lb 6.4 oz I&O: 10/07/17 10/08/17 10/09/17 06:59 06:59 06:59 Intake Total 1320 1540 Balance 1320 1540 Result Diagrams: 10/06/17 04:48 10/06/17 04:48 Phys Exam - Physical Examination Constitutional: NAD HEENT: sclera anicteric Neck: supple Respiratory: no wheezing, no rales Cardiovascular: RRR Gastrointestinal: soft Musculoskeletal: edema present Neurological: non-focal Psychiatric: normal affect Skin: no rash Dx/Plan (1) Afib Code(s): I48.91 - UNSPECIFIED ATRIAL FIBRILLATION Status: Acute Qualifiers: Atrial fibrillation type: chronic Qualified Code(s): I48.2 - Chronic atrial fibrillation Comment: RVR noted on tele, Cardizem gtt d/c'd, Flecainide 50mg BID for rhythm control, Metoprolol 50mg daily, no anticoagulation due to hx of bleeding, ASA 81mg daily (2) Hypokalemia Code(s): E87.6 - HYPOKALEMIA Status: Acute (3) Pneumonia Code(s): J18.9 - PNEUMONIA, UNSPECIFIED ORGANISM Status: Acute (4) COPD (chronic obstructive pulmonary disease) Status: Chronic Comment: Continue general pulm support (5) Sepsis Code(s): A41.9 - SEPSIS, UNSPECIFIED ORGANISM Status: Suspected Comment: Secondary to #1, see above, blood cx with MRSA and Enterococcus spp, await final sensitivities, continue Vanc/Cefepime another 24h then consider transition to po abx (6) Bronchitis Code(s): J40 - BRONCHITIS, NOT SPECIFIED ACUTE OR CHRONIC Status: Acute (7) SIRS (systemic inflammatory response syndrome) Code(s): R65.10 - SIRS OF NON-INFECTIOUS ORIGIN W/O ACUTE ORGAN DYSFUNCTION Status: Acute Comment: final culture results negative for bacterial growth, transitioned to oral doxycycline (8) Hypertension Code(s): I10 - ESSENTIAL (PRIMARY) HYPERTENSION Status: Chronic Qualifiers: (9) Hypothyroidism Code(s): E03.9 - HYPOTHYROIDISM, UNSPECIFIED Status: Chronic Qualifiers: (10) Obesity (BMI 30-39.9) Code(s): E66.9 - OBESITY, UNSPECIFIED Status: Chronic (11) Physical deconditioning Code(s): R53.81 - OTHER MALAISE Status: Chronic Comment: PT evaluation and SNF options - Plan plan discussed w/ family, continue antibiotics, PT/OT, social studies teacher, respiratory therapy, DVT proph w/lovenox * . feels better still weak continue Doxy. Check AM labs. Add PPI On steroids. appreciated cardio input and stable for DC from cardiac standpoint. PT consult Rehab screening Dc planning with CM. plan discussed with daughter over the phone.
[2017-10-08 10:35] LABS: #Basophils 0.1 thou/uL (0.0-0.2); #Eosinphils 0.7 thou/uL (0.0-0.7); #Lymphocytes 3.2 thou/uL (1.20-3.40); #Monocytes 1.4 thou/uL (0.11-0.59); #Neutrophils 8.8 thou/uL (1.40-6.50); %Basophils 0.7 % (0.0-1.0); %Eosinophils 4.9 % (0.0-10.0); %Lymphocytes 22.4 % (21.0-51.0); %Monocytes 10.1 % (0.0-10.0); Hemoglobin 12.7 g/dL (12.0-16.0); Mean Corpuscular HGB CONC 33.2 g/dL (32.0-36.0); Mean Corpuscular Hemoglobin 31.8 pg (27.0-31.0); Mean Corpuscular Volume 95.6 fl (81.0-99.0); Mean Platelet Volume 7.1 fL (7.4-10.4); Platelet Count 266 thou/uL (130-400); RBC Distribution Width 12.9 % (11.5-14.5); Red Blood Cell (RBC) Count 3.99 mill/uL (4.20-5.40); White Blood Cell (WBC) Count 14.1 thou/uL (4.8-10.8)
[2017-10-08 11:01] LABS: ALT (SGPT) 44 U/L (8-55); AST (SGOT) 30 U/L (5-34); Albumin 3.6 g/dL (3.4-4.8); Alkaline Phosphatase 116 U/L (40-150); Anion Gap 14 mmol/L (10-20); BUN (Urea Nitrogen) 33 mg/dL (9.8-20.1); Bilirubin, Total 0.3 mg/dL (0.2-1.2); Calc. Creatinine Clearance 35 mL/min (70-130); Carbon Dioxide 17 mmol/L (23-31); Chloride 109 mmol/L (98-107); Estimated GFR-MDRD 27; Glucose 95 mg/dL (83-110); Potassium 4.6 mmol/L (3.5-5.1); Protein, Total 6.6 g/dL (6.0-8.3); Sodium 135 mmol/L (136-145)
[2017-10-08] MEDS: Gabapentin 400 MG CAP PO SCH ×3 (12:29→21:27)
[2017-10-08] MEDS: Nystatin Powder 15 GM BOT TOP SCH ×2 (12:30→21:29)
[2017-10-08] MEDS: Atorvastatin Calcium 10 MG TAB PO SCH (12:34)
[2017-10-08] MEDS: FLUoxetine HCl 20 MG CAP PO SCH (12:34)
[2017-10-08] MEDS: Doxycycline 100 MG CAP PO SCH ×2 (12:34→21:27)
[2017-10-08] MEDS: predniSONE 20 MG TAB PO SCH (12:35)
[2017-10-08] MEDS: Aspirin 81 mg Enteric Coated Tablet PO SCH (12:35)
[2017-10-08] MEDS: Amlodipine 5 MG TAB PO SCH (12:35)
[2017-10-08] MEDS: carBAMazepine 100 mg Chewable Tablet PO SCH ×2 (12:35→21:28)
[2017-10-08] MEDS: Furosemide 40 MG TAB PO SCH (12:35)
[2017-10-08] MEDS: TROSPIUM 20 MG TABLET PO SCH ×2 (12:35→21:27)
[2017-10-08] MEDS: Saccharomyces boulardii 250 MG CAP PO SCH (12:36)
[2017-10-08] MEDS: Valsartan 80 MG TAB PO SCH (12:36)
[2017-10-08] MEDS: guaiFENesin ER 600 MG TAB PO SCH ×2 (12:36→21:27)
[2017-10-08] MEDS: Famotidine 20 MG TAB PO SCH ×2 (12:36→21:28)
[2017-10-08] MEDS: Potassium Chloride 20 MEQ TAB PO SCH (12:37)
[2017-10-08] MEDS: Enoxaparin Sodium 40 MG/0.4 ML SYRINGE SC SCH (12:38)
[2017-10-08] MEDS: ALPRAZolam 0.25 MG TAB PO SCH (21:28)
[2017-10-09] MEDS: Levothyroxine Sodium 125 MCG TAB PO SCH (05:56)
[2017-10-09 06:37] LABS: #Basophils 0.1 thou/uL (0.0-0.2); #Eosinphils 0.2 thou/uL (0.0-0.7); #Lymphocytes 3.2 thou/uL (1.20-3.40); #Monocytes 1.3 thou/uL (0.11-0.59); #Neutrophils 11.1 thou/uL (1.40-6.50); %Basophils 0.7 % (0.0-1.0); %Eosinophils 1.3 % (0.0-10.0); %Lymphocytes 19.9 % (21.0-51.0); %Monocytes 8.2 % (0.0-10.0); %Neutrophils 69.8 % (42.0-75.0); Hemoglobin 12.5 g/dL (12.0-16.0); Mean Corpuscular HGB CONC 33.2 g/dL (32.0-36.0); Mean Corpuscular Hemoglobin 31.5 pg (27.0-31.0); Mean Corpuscular Volume 94.8 fl (81.0-99.0); Mean Platelet Volume 7.3 fL (7.4-10.4); Platelet Count 282 thou/uL (130-400); RBC Distribution Width 12.6 % (11.5-14.5); Red Blood Cell (RBC) Count 3.97 mill/uL (4.20-5.40); White Blood Cell (WBC) Count 15.9 thou/uL (4.8-10.8)
[2017-10-09 06:50] LABS: Anion Gap 16 mmol/L (10-20); BUN (Urea Nitrogen) 37 mg/dL (9.8-20.1); Calc. Creatinine Clearance 32 mL/min (70-130); Calcium 9.5 mg/dL (7.8-10.44); Carbon Dioxide 15 mmol/L (23-31); Chloride 107 mmol/L (98-107); Estimated GFR-MDRD 24; Glucose 91 mg/dL (83-110); Potassium 4.7 mmol/L (3.5-5.1); Sodium 133 mmol/L (136-145)
[2017-10-09] MEDS: Mometasone 100 MCG HFA INHALER INH SCH ×2 (07:23→18:43)
[2017-10-09] MEDS ORDERED: Potassium Chloride 20 MEQ TAB PO SCH (08:00)
[2017-10-09] MEDS ORDERED: Sodium Chloride 0.9% 1,000 ML IV SCH (09:45)
[2017-10-09] MEDS: Saccharomyces boulardii 250 MG CAP PO SCH (09:50)
[2017-10-09] MEDS: Amlodipine 5 MG TAB PO SCH (09:50)
[2017-10-09] MEDS: TROSPIUM 20 MG TABLET PO SCH ×2 (09:50→21:00)
[2017-10-09] MEDS: FLUoxetine HCl 20 MG CAP PO SCH (09:50)
[2017-10-09] MEDS: Atorvastatin Calcium 10 MG TAB PO SCH (09:50)
[2017-10-09] MEDS: Aspirin 81 mg Enteric Coated Tablet PO SCH (09:50)
[2017-10-09] MEDS: Famotidine 20 MG TAB PO SCH ×2 (09:51→21:00)
[2017-10-09] MEDS: guaiFENesin ER 600 MG TAB PO SCH ×2 (09:51→20:59)
[2017-10-09] MEDS: predniSONE 20 MG TAB PO SCH (09:51)
[2017-10-09] MEDS: carBAMazepine 100 mg Chewable Tablet PO SCH ×2 (09:51→20:59)
[2017-10-09] MEDS: Nystatin Powder 15 GM BOT TOP SCH ×2 (09:52→21:00)
[2017-10-09] MEDS: Furosemide 40 MG TAB PO SCH (09:53)
[2017-10-09] MEDS: Enoxaparin Sodium 40 MG/0.4 ML SYRINGE SC SCH (09:54)
[2017-10-09] MEDS: Gabapentin 400 MG CAP PO SCH (09:54)
[2017-10-09] MEDS: Valsartan 80 MG TAB PO SCH (09:54)
--- NOTE | 2017-10-09 09:56 | PDOC.PN ---
- Subjective Encounter Start Date: 10/09/17 Encounter Start Time: 09:53 Patient seen and examined. No new complaints. No overnight events. Pt more alert today. c/o cough still confused. No fever or chills. No chest pain. No abd pain - Objective Resuscitation Status: Resuscitation Status FULL:Full Resuscitation MAR Reviewed: Yes Vital Signs & Weight: Vital Signs (12 hours) Temp Pulse Resp BP BP BP Pulse Ox 10/09/17 08:21 98.2 F 67 20 129/63 91 L 10/09/17 07:21 62 16 96 10/09/17 04:00 97.7 F 56 L 18 178/72 H 93 L 10/09/17 00:00 98.1 F 53 L 20 136/60 95 10/08/17 23:50 94 L Weight Weight 190 lb 4.8 oz I&O: 10/08/17 10/09/17 10/10/17 06:59 06:59 06:59 Intake Total 1540 1080 Balance 1540 1080 Result Diagrams: 10/09/17 05:57 10/09/17 05:57 Phys Exam - Physical Examination Constitutional: NAD HEENT: sclera anicteric Neck: supple Respiratory: no wheezing rales present Cardiovascular: RRR Gastrointestinal: soft Musculoskeletal: no edema Neurological: non-focal, moves all 4 limbs Psychiatric: normal affect Deviation from normal: Awake and Oriented X 2 Skin: no rash Dx/Plan (1) Afib Code(s): I48.91 - UNSPECIFIED ATRIAL FIBRILLATION Status: Acute Qualifiers: Atrial fibrillation type: chronic Qualified Code(s): I48.2 - Chronic atrial fibrillation Comment: RVR noted on tele, Cardizem gtt d/c'd, Flecainide 50mg BID for rhythm control, Metoprolol 50mg daily, no anticoagulation due to hx of bleeding, ASA 81mg daily (2) Hypokalemia Code(s): E87.6 - HYPOKALEMIA Status: Acute (3) Pneumonia Code(s): J18.9 - PNEUMONIA, UNSPECIFIED ORGANISM Status: Acute (4) COPD (chronic obstructive pulmonary disease) Status: Chronic Comment: Continue general pulm support (5) Sepsis Code(s): A41.9 - SEPSIS, UNSPECIFIED ORGANISM Status: Suspected Comment: Secondary to #1, see above, blood cx with MRSA and Enterococcus spp, await final sensitivities, continue Vanc/Cefepime another 24h then consider transition to po abx (6) Bronchitis Code(s): J40 - BRONCHITIS, NOT SPECIFIED ACUTE OR CHRONIC Status: Acute (7) SIRS (systemic inflammatory response syndrome) Code(s): R65.10 - SIRS OF NON-INFECTIOUS ORIGIN W/O ACUTE ORGAN DYSFUNCTION Status: Acute Comment: final culture results negative for bacterial growth, transitioned to oral doxycycline (8) Hypertension Code(s): I10 - ESSENTIAL (PRIMARY) HYPERTENSION Status: Chronic Qualifiers: (9) Hypothyroidism Code(s): E03.9 - HYPOTHYROIDISM, UNSPECIFIED Status: Chronic Qualifiers: (10) Obesity (BMI 30-39.9) Code(s): E66.9 - OBESITY, UNSPECIFIED Status: Chronic (11) Physical deconditioning Code(s): R53.81 - OTHER MALAISE Status: Chronic Comment: PT evaluation and SNF options - Plan * . WBC up and c/o cough. will stop Doxy and resume renal dose Cefepime will reculture blood. stop lasix and Kcl start IVF at 50cc/hr. Hold losartan change lovenox to heparin. SCDs while in bed PT/OT stop gabapentin due to AMS OOB as tolerated. AM labs.
[2017-10-09] MEDS: Doxycycline 100 MG CAP PO SCH (10:12)
[2017-10-09] MEDS: Sodium Chloride 0.9% 1,000 ML IV SCH (10:45)
--- NOTE | 2017-10-09 12:42 | PDOC.CTH ---
<JaycobElisha - Last Filed: 10/09/17 12:40> Cardiology Progress Note - Subjective The pt seen and examined. No overnight events. No cardiac complaints. She complains of cough today. and daughter are at bedside. - Objective Vital Signs Temp Pulse Resp BP BP BP Pulse Ox 10/09/17 12:05 94 L 10/09/17 11:05 99.1 F 67 18 152/67 H 91 L 10/09/17 08:30 98.2 F 67 20 91 L 10/09/17 08:21 98.2 F 67 20 129/63 91 L 10/09/17 07:21 62 16 96 10/09/17 04:00 97.7 F 56 L 18 178/72 H 93 L Weight 190 lb 4.8 oz 10/08/17 10/09/17 10/10/17 06:59 06:59 06:59 Intake Total 1540 1080 Balance 1540 1080 - Physical Examination General/Neuro: other: (confused) Neck: no JVD present Lungs: other: (diminished at bases) Heart: RRR, other: Abdomen: soft Extremities: other: (no edemas) - Telemetry Telemetry Rhythm: SR 80s - Labs Result Diagrams: 10/09/17 05:57 10/09/17 05:57 - Assessment/Plan 1. Hx of SVT - Remain SR and PVCs with Flecainide; f/u by EP 2. Hx of Afib - Remain SR with PVCs with current medication; no anticoagulation due to hx of bleeding, ASA 81mg daily 3. Healthcare associated bacterial pneumonia - IV antibiotic was changed due to Renal function; managed by PCP 4. HTN - stable; cont. monitor 5. Diastolic HF - Echo on 09/28/17 showed EF 50-55%, grade I diastolic dysfunction, mild MR, mild AR, and mild-mod TR; Stable with RA; cont. monitor 6. Hyperlipidemia - on Statin 7. Hypothyroidism - on Levothyroxin; managed by PCP 8. Anxiety/Depression - stable; managed by PCP MAR reviewed * From cardiac standpoint, the pt is stable; we would like to sign off from the pt's care team. Please feel free to contact us for further questions. Review of Systems - Review of Systems Constitutional: reports: weakness EENTM: reports: no symptoms reported Respiratory: reports: cough Cardiac (ROS): reports: no symptoms reported ABD/GI: reports: no symptoms reported : reports: no symptoms reported Musculoskeletal: reports: no symptoms reported Skin: reports: no symptoms reported Neurological: reports: no symptoms reported <Reanna Lino - Last Filed: 10/10/17 17:52> Cardiology Progress Note - Objective Vital Signs Temp Pulse Resp BP Pulse Ox 10/10/17 16:29 64 16 10/10/17 15:45 97.7 F 68 17 127/59 L 98 10/10/17 11:45 98.1 F 54 L 18 133/68 97 10/10/17 08:10 98.1 F 55 L 18 93 L 10/10/17 08:00 98.1 F 55 L 18 111/59 L 93 L Admit Weight 200 lb 14.4 oz Weight 190 lb 9.6 oz 10/09/17 10/10/17 10/11/17 06:59 06:59 06:59 Intake Total 1080 2055 Balance 1080 2055 - Labs Result Diagrams: 10/10/17 04:53 10/10/17 04:53 - Assessment/Plan Pt. seen and evaluated by me. I agree with the A/P by the JUNIOR SYSTEMS ANALYST.
--- NOTE | 2017-10-09 12:46 | RAD ---
RADIOGRAPH CHEST 1 VIEW: HISTORY: A 77-year-old female with cough and dyspnea. FINDINGS: There is cardiomegaly. There is no evidence of air space density, pulmonary edema, or pneumothorax. T he lateral costophrenic angles are sharp. IMPRESSION: 1) No acute pulmonary findings. 2) Cardiomegaly without congestive heart failure. alvarez [] POS: [facility]
[2017-10-09] MEDS: Cefepime 2 GM in Sodium Chloride 0.9% 100 ML IVPB SCH (13:25)
[2017-10-09] MEDS: Cefepime 2 GM, Syringe 2.5 ML in Sterile Water 10 ML SLOW IVP SCH (13:26)
[2017-10-09] MEDS: HYDROcodone/Acetaminophen 10/325 mg Tablet PO PRN (16:52)
[2017-10-09] MEDS: ALPRAZolam 0.25 MG TAB PO SCH (21:00)
[2017-10-09] MEDS: Heparin 5,000 UNITS/ML VIAL SC SCH (21:01)
[2017-10-10] MEDS: Levothyroxine Sodium 125 MCG TAB PO SCH (05:08)
[2017-10-10] MEDS: Sodium Chloride 0.9% 1,000 ML IV SCH (05:08)
[2017-10-10 05:32] LABS: #Basophils 0.1 thou/uL (0.0-0.2); #Eosinphils 0.2 thou/uL (0.0-0.7); #Lymphocytes 3.1 thou/uL (1.20-3.40); #Monocytes 1.3 thou/uL (0.11-0.59); #Neutrophils 7.6 thou/uL (1.40-6.50); %Basophils 0.7 % (0.0-1.0); %Eosinophils 1.6 % (0.0-10.0); %Lymphocytes 25.6 % (21.0-51.0); %Monocytes 10.5 % (0.0-10.0); %Neutrophils 61.6 % (42.0-75.0); Hemoglobin 11.5 g/dL (12.0-16.0); Mean Corpuscular HGB CONC 31.7 g/dL (32.0-36.0); Mean Corpuscular Hemoglobin 30.1 pg (27.0-31.0); Mean Corpuscular Volume 94.9 fl (81.0-99.0); Mean Platelet Volume 7.3 fL (7.4-10.4); Platelet Count 264 thou/uL (130-400); RBC Distribution Width 12.7 % (11.5-14.5); Red Blood Cell (RBC) Count 3.81 mill/uL (4.20-5.40); White Blood Cell (WBC) Count 12.3 thou/uL (4.8-10.8)
[2017-10-10 05:43] LABS: ALT (SGPT) 34 U/L (8-55); AST (SGOT) 20 U/L (5-34); Albumin 3.4 g/dL (3.4-4.8); Alkaline Phosphatase 118 U/L (40-150); Anion Gap 14 mmol/L (10-20); BUN (Urea Nitrogen) 41 mg/dL (9.8-20.1); Bilirubin, Total 0.2 mg/dL (0.2-1.2); Calc. Creatinine Clearance 31 mL/min (70-130); Calcium 8.7 mg/dL (7.8-10.44); Carbon Dioxide 16 mmol/L (23-31); Chloride 110 mmol/L (98-107); Estimated GFR-MDRD 23; Globulin 2.7 g/dL (2.4-3.5); Glucose 87 mg/dL (83-110); Potassium 4.1 mmol/L (3.5-5.1); Protein, Total 6.1 g/dL (6.0-8.3); Sodium 136 mmol/L (136-145)
[2017-10-10] MEDS: HYDROcodone/Acetaminophen 10/325 mg Tablet PO PRN ×3 (05:55→19:25)
[2017-10-10] MEDS: Amlodipine 5 MG TAB PO SCH (08:31)
[2017-10-10] MEDS: Atorvastatin Calcium 10 MG TAB PO SCH (08:31)
[2017-10-10] MEDS: Famotidine 20 MG TAB PO SCH ×2 (08:31→21:30)
[2017-10-10] MEDS: predniSONE 20 MG TAB PO SCH (08:31)
[2017-10-10] MEDS: TROSPIUM 20 MG TABLET PO SCH ×2 (08:31→21:30)
[2017-10-10] MEDS: FLUoxetine HCl 20 MG CAP PO SCH (08:31)
[2017-10-10] MEDS: Aspirin 81 mg Enteric Coated Tablet PO SCH (08:31)
[2017-10-10] MEDS: Saccharomyces boulardii 250 MG CAP PO SCH (08:31)
[2017-10-10] MEDS: guaiFENesin ER 600 MG TAB PO SCH ×2 (08:31→21:30)
[2017-10-10] MEDS: Heparin 5,000 UNITS/ML VIAL SC SCH ×2 (08:32→21:26)
[2017-10-10] MEDS: carBAMazepine 100 mg Chewable Tablet PO SCH ×2 (08:32→21:29)
[2017-10-10] MEDS: Nystatin Powder 15 GM BOT TOP SCH ×2 (08:33→21:00)
[2017-10-10] MEDS: Mometasone 100 MCG HFA INHALER INH SCH ×2 (10:30→19:34)
--- NOTE | 2017-10-10 11:21 | PDOC.PN ---
- Subjective Encounter Start Date: 10/10/17 Encounter Start Time: 11:19 more alert today confused per family gabapentin stopped c/o leg pain last night HR dropped to 40s at night - Objective Resuscitation Status: Resuscitation Status FULL:Full Resuscitation MAR Reviewed: Yes Vital Signs & Weight: Vital Signs (12 hours) Temp Pulse Resp BP BP Pulse Ox 10/10/17 08:10 98.1 F 55 L 18 93 L 10/10/17 08:00 98.1 F 55 L 18 111/59 L 93 L 10/10/17 04:00 98.2 F 47 L 18 120/70 98 10/10/17 00:00 96.8 F L 64 20 119/57 L 97 10/09/17 23:42 95 Weight Weight 190 lb 9.6 oz I&O: 10/09/17 10/10/17 10/11/17 06:59 06:59 06:59 Intake Total 1080 5 Balance 1080 2054 Result Diagrams: 10/10/17 04:53 10/10/17 04:53 Phys Exam - Physical Examination Constitutional: NAD HEENT: sclera anicteric Neck: supple rales bradycardic Gastrointestinal: soft Musculoskeletal: edema present Neurological: non-focal confused Skin: no rash Dx/Plan (1) Afib Code(s): I48.91 - UNSPECIFIED ATRIAL FIBRILLATION Status: Acute Qualifiers: Atrial fibrillation type: chronic Qualified Code(s): I48.2 - Chronic atrial fibrillation Comment: RVR noted on tele, Cardizem gtt d/c'd, Flecainide 50mg BID for rhythm control, Metoprolol 50mg daily, no anticoagulation due to hx of bleeding, ASA 81mg daily (2) Hypokalemia Code(s): E87.6 - HYPOKALEMIA Status: Acute (3) Pneumonia Code(s): J18.9 - PNEUMONIA, UNSPECIFIED ORGANISM Status: Acute (4) COPD (chronic obstructive pulmonary disease) Status: Chronic Comment: Continue general pulm support (5) Sepsis Code(s): A41.9 - SEPSIS, UNSPECIFIED ORGANISM Status: Suspected Comment: Secondary to #1, see above, blood cx with MRSA and Enterococcus spp, await final sensitivities, continue Vanc/Cefepime another 24h then consider transition to po abx (6) Bronchitis Code(s): J40 - BRONCHITIS, NOT SPECIFIED ACUTE OR CHRONIC Status: Acute (7) SIRS (systemic inflammatory response syndrome) Code(s): R65.10 - SIRS OF NON-INFECTIOUS ORIGIN W/O ACUTE ORGAN DYSFUNCTION Status: Acute Comment: final culture results negative for bacterial growth, transitioned to oral doxycycline (8) Hypertension Code(s): I10 - ESSENTIAL (PRIMARY) HYPERTENSION Status: Chronic Qualifiers: (9) Hypothyroidism Code(s): E03.9 - HYPOTHYROIDISM, UNSPECIFIED Status: Chronic Qualifiers: (10) Obesity (BMI 30-39.9) Code(s): E66.9 - OBESITY, UNSPECIFIED Status: Chronic (11) Physical deconditioning Code(s): R53.81 - OTHER MALAISE Status: Chronic Comment: PT evaluation and SNF options - Plan cont current plan of care, PT/OT, social work faculty member, DVT proph w/heparin * . reduce metoprolol dose to 25 mg po daily discussed with cardiology. continue cefepime start low dose of gabapentin repeat blood culture negative check ua. continue rehab screen continue IVF at 50cc/hr. Cr stable today. ARB and lasix on hold. DC planning
[2017-10-10] MEDS: Cefepime 2 GM in Sodium Chloride 0.9% 100 ML IVPB SCH (11:44)
[2017-10-10] MEDS: Cefepime 2 GM, Syringe 2.5 ML in Sterile Water 10 ML SLOW IVP SCH (11:46)
[2017-10-10 15:09] VITALS: BMI 32.7
[2017-10-10 15:09] LABS: Bilirubin Negative (Negative); Blood, Urine Trace (Negative); Clarity CLOUDY (Clear); Glucose, Urine (Dipstick) Negative (Negative); Leukocyte Negative (Negative); Nitrite Negative (Negative); Protein, Urine (Dipstick) 30 mg/dL (Neg-Trace); Specific Gravity, Urine 1.017 (1.002-1.036); Urobilinogen 0.2 mg/dL (0.2-1.0); pH, Urine 5.5 (5.0-9.0)
[2017-10-10 15:12] LABS: Bacteria/HPF None Seen HPF (None Seen); Hyaline Casts/LPF 0-3 HYALINE CAST LPF (0-3 Hyaline); Pathc Cast-AUWi Flag 0.54 (0-2.49); Squamous Epithelial 0-3 HPF (0-3); WBC/HPF 0-3 HPF (0-3)
[2017-10-10 15:13] LABS: Yeast-AUWi Flag 72.4 (0-25.0)
[2017-10-10 15:24] LABS: Crystals/HPF 2+ AMORPH URATES HPF (Negative); RBC/HPF 0-3 HPF (0-3)
[2017-10-10] MEDS ORDERED: Gabapentin 300 MG CAP PO SCH (21:00)
[2017-10-10] MEDS: ALPRAZolam 0.25 MG TAB PO SCH (21:30)
[2017-10-11] MEDS: Sodium Chloride 0.9% 1,000 ML IV SCH (05:53)
[2017-10-11] MEDS: Levothyroxine Sodium 125 MCG TAB PO SCH (05:54)
[2017-10-11] MEDS: Mometasone 100 MCG HFA INHALER INH SCH (07:43)
[2017-10-11] MEDS: TROSPIUM 20 MG TABLET PO SCH (08:55)
[2017-10-11] MEDS: Saccharomyces boulardii 250 MG CAP PO SCH (08:55)
[2017-10-11] MEDS: predniSONE 20 MG TAB PO SCH (08:55)
[2017-10-11] MEDS: FLUoxetine HCl 20 MG CAP PO SCH (08:55)
[2017-10-11] MEDS: Aspirin 81 mg Enteric Coated Tablet PO SCH (08:55)
[2017-10-11] MEDS: carBAMazepine 100 mg Chewable Tablet PO SCH (08:56)
[2017-10-11] MEDS: Atorvastatin Calcium 10 MG TAB PO SCH (08:56)
[2017-10-11] MEDS: guaiFENesin ER 600 MG TAB PO SCH (08:56)
[2017-10-11] MEDS: Famotidine 20 MG TAB PO SCH (08:56)
[2017-10-11] MEDS: Amlodipine 5 MG TAB PO SCH (08:56)
[2017-10-11] MEDS: Heparin 5,000 UNITS/ML VIAL SC SCH (08:56)
[2017-10-11] MEDS: Nystatin Powder 15 GM BOT TOP SCH (08:59)
[2017-10-11] MEDS ORDERED: Amlodipine 5 MG TAB PO SCH ×2 (09:26→11:00)
--- NOTE | 2017-10-11 09:35 | PDOC.PN ---
- Subjective Encounter Start Date: 10/11/17 Encounter Start Time: 09:34 Patient seen and examined. No new complaints. No overnight events. feels good. still very weak. on IVF. - Objective Resuscitation Status: Resuscitation Status FULL:Full Resuscitation Vital Signs & Weight: Vital Signs (12 hours) Temp Pulse Resp BP Pulse Ox 10/11/17 09:08 168/72 H 10/11/17 08:38 98.1 F 58 L 16 186/80 H 94 L 10/11/17 04:00 97.6 F 58 L 18 192/88 H 95 10/11/17 00:49 71 14 95 Weight Admit Weight 200 lb 14.4 oz Weight 198 lb I&O: 10/10/17 10/11/17 10/12/17 06:59 06:59 06:59 Intake Total 2054 1440 Output Total 350 Balance 2054 1090 Result Diagrams: 10/10/17 04:53 10/10/17 04:53 Phys Exam - Physical Examination Constitutional: NAD HEENT: sclera anicteric Neck: supple Respiratory: no wheezing, no rales bradycardic Gastrointestinal: soft Musculoskeletal: no edema Neurological: non-focal Psychiatric: normal affect Skin: no rash Dx/Plan (1) Afib Code(s): I48.91 - UNSPECIFIED ATRIAL FIBRILLATION Status: Acute Qualifiers: Atrial fibrillation type: chronic Qualified Code(s): I48.2 - Chronic atrial fibrillation Comment: RVR noted on tele, Cardizem gtt d/c'd, Flecainide 50mg BID for rhythm control, Metoprolol 50mg daily, no anticoagulation due to hx of bleeding, ASA 81mg daily (2) Hypokalemia Code(s): E87.6 - HYPOKALEMIA Status: Acute (3) Pneumonia Code(s): J18.9 - PNEUMONIA, UNSPECIFIED ORGANISM Status: Acute (4) COPD (chronic obstructive pulmonary disease) Status: Chronic Comment: Continue general pulm support (5) Sepsis Code(s): A41.9 - SEPSIS, UNSPECIFIED ORGANISM Status: Suspected Comment: Secondary to #1, see above, blood cx with MRSA and Enterococcus spp, await final sensitivities, continue Vanc/Cefepime another 24h then consider transition to po abx (6) Bronchitis Code(s): J40 - BRONCHITIS, NOT SPECIFIED ACUTE OR CHRONIC Status: Acute (7) SIRS (systemic inflammatory response syndrome) Code(s): R65.10 - SIRS OF NON-INFECTIOUS ORIGIN W/O ACUTE ORGAN DYSFUNCTION Status: Acute Comment: final culture results negative for bacterial growth, transitioned to oral doxycycline (8) Hypertension Code(s): I10 - ESSENTIAL (PRIMARY) HYPERTENSION Status: Chronic Qualifiers: (9) Hypothyroidism Code(s): E03.9 - HYPOTHYROIDISM, UNSPECIFIED Status: Chronic Qualifiers: (10) Obesity (BMI 30-39.9) Code(s): E66.9 - OBESITY, UNSPECIFIED Status: Chronic (11) Physical deconditioning Code(s): R53.81 - OTHER MALAISE Status: Chronic Comment: PT evaluation and SNF options - Plan continue antibiotics, PT/OT, social media strategist, respiratory therapy, DVT proph w/ heparin * . continue reduced dose of metoprolol. will increase the dose of Amlodipine. continue IVF check labs today. Rehab screen.
[2017-10-11 10:28] LABS: Anion Gap 13 mmol/L (10-20); BUN (Urea Nitrogen) 38 mg/dL (9.8-20.1); Calc. Creatinine Clearance 36 mL/min (70-130); Calcium 8.8 mg/dL (7.8-10.44); Carbon Dioxide 17 mmol/L (23-31); Chloride 111 mmol/L (98-107); Estimated GFR-MDRD 26; Glucose 134 mg/dL (83-110); Magnesium 1.9 mg/dL (1.6-2.6); Sodium 137 mmol/L (136-145)
--- NOTE | 2017-10-11 10:29 | PDOC.CTH ---
Cardiology Progress Note - Subjective The pt seen and examined. No overnight events. No cardiac complaints. She was able to answer and follow all questions and commands at this time. She denied dizziness or lightheadedness with HR 40-50s. - Objective Vital Signs Temp Pulse Resp BP Pulse Ox 10/11/17 09:08 168/72 H 10/11/17 08:38 98.1 F 58 L 16 186/80 H 94 L 10/11/17 04:00 97.6 F 58 L 18 192/88 H 95 10/11/17 00:49 71 14 95 Admit Weight 200 lb 14.4 oz Weight 198 lb 10/10/17 10/11/17 10/12/17 06:59 06:59 06:59 Intake Total 2054 1440 Output Total 350 Balance 2054 1090 - Physical Examination General/Neuro: alert & oriented x3 Neck: no JVD present Lungs: CTA (diminished at bases) Heart: RRR Abdomen: soft Extremities: other: (No edemas) - Telemetry Telemetry Rhythm: SB with PVCs - Labs Result Diagrams: 10/10/17 04:53 10/11/17 09:58 - Assessment/Plan 1. Hx of SVT - Remain SR and PVCs with Flecainide; f/u by EP 2. Hx of Afib - HR was dropped to 40-50s yesterday with Metorpolol 50mg daily; The dosage was adjusted to 25mg daily; However, her HR has been down to 47 to 50s after she received Metoprolol 25mg this AM; Metoprolol XL was changed to Metoprolol 12.5mg PO BID; Cont. monitor; no anticoagulation due to hx of bleeding, ASA 81mg daily 3. Healthcare associated bacterial pneumonia - IV antibiotic was changed due to Renal function; managed by PCP 4. HTN - Amlodipine was increased from 5mg to 10mg QD; cont. monitor 5. Diastolic HF - Echo on 09/28/17 showed EF 50-55%, grade I diastolic dysfunction, mild MR, mild AR, and mild-mod TR; Stable with RA; cont. monitor 6. Hyperlipidemia - on Statin 7. Hypothyroidism - on Levothyroxin; managed by PCP 8. Anxiety/Depression - stable; managed by PCP MAR reviewed * Will hold Flecainide due to worsening of her Cr level; cont. monitor Review of Systems - Review of Systems Constitutional: reports: no symptoms reported EENTM: reports: no symptoms reported Respiratory: reports: no symptoms reported Cardiac (ROS): reports: no symptoms reported ABD/GI: reports: no symptoms reported : reports: no symptoms reported Musculoskeletal: reports: back pain
--- NOTE | 2017-10-11 10:44 | PDOC.CTH ---
<Marcia Corey - Last Filed: 10/11/17 16:01> Cardiology Progress Note - Subjective Electrophysiology Cardiology Progress Note: Overall patient reports doing well without complaints of heart racing, palpitations, chest pain/pressure, dizziness, or irregular heart beats. She states she has been getting OOB with therapy. She denies any light headedness, dizziness, or near passing out with her slower heart rate. She reports that over the past few days she has experienced some delirium, which she attributes to medications. ROS: Constitutional: Denies fever, chills, or malaise. Pulm: Denies shortness of breath, difficulty breathing while lying flat, dyspnea with exertion, or bloody sputum CV: As per subjective above Hem: Denies uncontrolled bleeding, easy bruising, or blood dyscrasias Neuro: Denies unilateral weakness, speech or vision changes, or stroke/stroke- like symptoms. + recent mental changes over the weekend, not currently an issue - Objective Vital Signs Temp Pulse Resp BP Pulse Ox 10/11/17 09:08 168/72 H 10/11/17 08:38 98.1 F 58 L 16 186/80 H 94 L 10/11/17 04:00 97.6 F 58 L 18 192/88 H 95 10/11/17 00:49 71 14 95 Admit Weight 200 lb 14.4 oz Weight 198 lb 10/10/17 10/11/17 10/12/17 06:59 06:59 06:59 Intake Total 2055 1440 Output Total 350 Balance 2055 1090 - Physical Examination General/Neuro: alert & oriented x3, NAD Neck: carotid US brisk, no JVD present Lungs: CTA, unlabored respirations, other: (diminished at bases) Heart: PMI normal, RRR Abdomen: no HSM, NT/ND, soft Extremities: + edema B (1+) Other PE findings: generalized weakness, limited mobility - Telemetry Telemetry Rhythm: Sinus bradycardia - Labs Result Diagrams: 10/10/17 04:53 10/11/17 09:58 - Assessment/Plan 1. Atrial Tachycardia- currently quiescent, rate control with metoprolol. Continue to monitor. 2. Atrial fibrillation, paroxysmal- Brief episodes of rate controlled atrial fibrillation continue to occur. Patient is asymptomatic with these episodes. She remains on Flecainide 50mg BID for arrhythmia suppression and has been fairly well suppressed, however, will DC given renal insufficiency 3. Bradycardia-Rates in 40-50 range. Metoprolol dose lowered today. Asymptomatic , will continue to monitor. 4. CHADS-VASc score= 4; not a candidate for anticoagulation therapy given her history of GI bleed 5. Acute respiratory illness- appears mostly resolved. Patient appears significantly improved and anticipates discharge to rehab in the near future. Her arrhythmia tends to present itself in the event of acute illness and seeing that is resolved, it is acceptable to DC her flecainide in light of her renal insufficiency. We will continue to follow her as inpatient and will see her back in clinic in 4-6 weeks after discharge. <Tony Hernandez - Last Filed: 10/11/17 16:53> Cardiology Progress Note - Objective Vital Signs Temp Pulse Resp BP BP Pulse Ox 10/11/17 16:16 97.9 F 60 20 153/72 H 92 L 10/11/17 12:10 98.3 F 55 L 16 116/59 L 92 L 10/11/17 09:08 168/72 H 10/11/17 08:40 98.1 F 58 L 16 10/11/17 08:38 98.1 F 58 L 16 186/80 H 94 L Admit Weight 200 lb 14.4 oz Weight 198 lb 10/10/17 10/11/17 10/12/17 06:59 06:59 06:59 Intake Total 5 1440 Output Total 350 Balance 5 1090 - Labs Result Diagrams: 10/10/17 04:53 10/11/17 09:58 Attending Addendum - Attending Addendum I personally evaluated the patient and discussed the management with Murali Corey I agree with the History, Examination, Assessment and Plan documented above with any addition or exceptions noted below. 1. Atrial Tachycardia- currently quiescent, suppressed w flecainde. Hence worseinig renal status, may expose her to increasing flecaindie levels. On the other hand she is on low dose. It would be reasonbale to stop the flecainde hence her initial COPD exacerbation now resolved. She may not have recurretn AT episodes. IF so she is rate control with metoprolol. Could considrr MUltaq as well. Continue to monitor. 3. Bradycardia-Rates in 40-50 range on flec andmetoprolol. Flecainde stopped and Metoprolol dose lowered today. Asymptomatic, will continue to monitor. 4. CHADS-VASc score= 4; not a candidate for anticoagulation therapy given her history of GI bleed 5. Acute respiratory illness- appears mostly resolved. Patient appears significantly improved and anticipates discharge to rehab in the near future. Her arrhythmia tends to present itself in the event of acute illness and seeing that is resolved, it is acceptable to DC her flecainide in light of her renal insufficiency. We will continue to follow her as inpatient and will see her back in clinic in 4-6 weeks after discharge.
[2017-10-11] MEDS: Cefepime 2 GM, Syringe 2.5 ML in Sterile Water 10 ML SLOW IVP SCH (12:01)
[2017-10-11] MEDS: HYDROcodone/Acetaminophen 10/325 mg Tablet PO PRN (14:03)
[2017-10-11 16:21] VITALS: BP 153/72; TEMP 97.9
[2017-10-11] MEDS ORDERED: Doxycycline 100 MG CAP PO SCH (21:00)
--- NOTE | 2017-10-12 04:01 | DIS ---
DATE OF ADMISSION: 09/29/2017 DATE OF DISCHARGE: 10/11/2017 CONSULTATIONS: Dr. Jaramillo from Cardiology, Dr. Hernandez from Electrophysiology. PROCEDURES: Echocardiogram with EF of 50% to 55% and diastolic dysfunction. DISCHARGE DIAGNOSES: 1. Healthcare-associated pneumonia. 2. Weakness. 3. Deconditioning. 4. Lethargic. 5. Hypertension. 6. Chronic atrial fibrillation. 7. Anxiety. 8. Depression. 9. Chronic obstructive pulmonary disease. 10. Hyperlipidemia. 11. Gastroesophageal reflux disease. 12. Neuropathy. 13. Hypothyroidism. HOSPITAL COURSE: This is a 77-year-old female with history of hypertension, atrial fibrillation and anxiety, who came to the hospital with tachycardia and cough and was found to have healthcare-associa [place] pneumonia. The patient was started on IV antibiotics with slow improvement. The patient's cultu res were obtained and showed MRSA pneumonia and blood culture 1 out of 2 cultures. His urine culture was obtained a multiple times with no growth. The patient was on cefepime and vancomycin initially and changed to cefepime with significant improvement. The patient was found very weak and lethargic and PT, OT evaluations were done and recommended the rehabilitation and the patient's family agreed t o have rehabilitation evaluation and rehab placement and the patient was left the hospital in stable condition to the rehab. CONDITION ON DISCHARGE: Fair. DISPOSITION: To [facility]. DISCHARGE MEDICATIONS: Beclomethasone dipropionate 1 puff b.i.d., Detrol-LA 4 mg p.o. daily, amlodip ine 10 mg daily, atorvastatin 10 mg daily, fluoxetine 20 mg p.o. daily, levothyroxine 125 mcg, guaife nesin 600 b.i.d., Tegretol 50 p.o. b.i.d., Lopressor 12.5 b.i.d., Neurontin 30 mg p.o. q.a.m., Pepcid 20 p.o. b.i.d., doxycycline 100 mg p.o. b.i.d. for 3-4 more days, aspirin 81 mg p.o. daily, alprazol am 0.25 at bedtime, albuterol nebulizer p.r.n. DISCHARGE INSTRUCTIONS: 1. Follow with the physicians in [facility]. 2. Follow with primary care physician in 1 week after discharge from rehabilitation. Please note that I did spend more than 35 minutes coordinating the discharge care of this patient.
[2017-10-12] MEDS ORDERED: Metoprolol Tartrate 25 MG TAB PO SCH (09:00)
[2017-10-12] MEDS ORDERED: Amlodipine 10 MG TAB PO SCH (09:00)
== END 2017-10-11 16:55 | DRG 871 ==
LOC: ERS 13:21 → 2NO 17:48
PROVIDERS: ADMIT Internal Medicine Infectious Disease; ATTEND Internal Medicine Infectious Disease
DX: A41.02 Sepsis due to Methicillin resistant Staphylococcus aureus (principal); J15.212 Pneumonia due to Methicillin resistant Staphylococcus aureus; G62.9 Polyneuropathy, unspecified; I11.0 Hypertensive heart disease with heart failure; I47.1 Supraventricular tachycardia; I48.0 Paroxysmal atrial fibrillation; I50.32 Chronic diastolic (congestive) heart failure; I08.3 Combined rheumatic disorders of mitral, aortic and tricuspid valves; A41.81 Sepsis due to Enterococcus; E03.9 Hypothyroidism, unspecified; E66.9 Obesity, unspecified; R65.20 Severe sepsis without septic shock; E78.5 Hyperlipidemia, unspecified; F32.9 Major depressive disorder, single episode, unspecified; J44.9 Chronic obstructive pulmonary disease, unspecified; F41.9 Anxiety disorder, unspecified; K21.9 Gastro-esophageal reflux disease without esophagitis; Z88.1 Allergy status to other antibiotic agents; Z88.5 Allergy status to narcotic agent; Z88.2 Allergy status to sulfonamides; Y95 Nosocomial condition; I47.9 Paroxysmal tachycardia, unspecified; R53.1 Weakness; Z79.82 Long term (current) use of aspirin; Z68.34 Body mass index [BMI] 34.0-34.9, adult; E87.6 Hypokalemia; R00.1 Bradycardia, unspecified
CPT/HCPCS: 36415; 36416; 51701; 71010; 80048; 80053; 80202; 81003; 81015; 82140; 83605; 83735; 84443; 85007; 85025; 85027; 87040; 87077; 87086; 87149; 87186; 87324; 87449; 93005; 93306; 94640; 94664; 96374; 96375; A4216; A4353; G8978-GP-CN; G8979-GP-CL; G8987-GO-CN; G8988-GO-CL; J0692; J0696; J1644; J1650; J1940; J1956; J3370; J7050; J7506; J7611; J7620

== ENCOUNTER 2017-12-13 03:36 | Inpatient (IN) | payer MEDICARE ==
[2017-12-13 04:27] LABS: #Basophils 0.1 thou/uL (0.0-0.2); #Eosinphils 0.6 thou/uL (0.0-0.7); #Lymphocytes 4.3 thou/uL (1.20-3.40); #Monocytes 1.8 thou/uL (0.11-0.59); #Neutrophils 11.7 thou/uL (1.40-6.50); %Basophils 0.5 % (0.0-1.0); %Eosinophils 3.4 % (0.0-10.0); %Lymphocytes 23.3 % (21.0-51.0); %Monocytes 9.5 % (0.0-10.0); %Neutrophils 63.3 % (42.0-75.0); Hemoglobin 11.7 g/dL (12.0-16.0); Mean Corpuscular HGB CONC 32.8 g/dL (32.0-36.0); Mean Corpuscular Hemoglobin 30.4 pg (27.0-31.0); Mean Corpuscular Volume 92.7 fl (81.0-99.0); Mean Platelet Volume 7.1 fL (7.4-10.4); Platelet Count 309 thou/uL (130-400); RBC Distribution Width 12.5 % (11.5-14.5); Red Blood Cell (RBC) Count 3.84 mill/uL (4.20-5.40); White Blood Cell (WBC) Count 18.4 thou/uL (4.8-10.8)
[2017-12-13 04:38] LABS: INR-International Normal Ratio 1.2; Prothrombin Time 15.2 SEC (12.0-14.7)
[2017-12-13 04:39] LABS: PTT 45.5 SEC (22.9-36.1)
[2017-12-13 04:50] LABS: ALT (SGPT) 10 U/L (8-55); AST (SGOT) 18 U/L (5-34); Albumin 3.5 g/dL (3.4-4.8); Alkaline Phosphatase 130 U/L (40-150); Anion Gap 16 mmol/L (10-20); BUN (Urea Nitrogen) 13 mg/dL (9.8-20.1); Bilirubin, Total 0.4 mg/dL (0.2-1.2); CK (CPK) 24 U/L (29-168); Calc. Creatinine Clearance 0 mL/min (70-130); Calcium 8.9 mg/dL (7.8-10.44); Carbon Dioxide 25 mmol/L (23-31); Chloride 99 mmol/L (98-107); Estimated GFR-MDRD 45; Globulin 2.9 g/dL (2.4-3.5); Glucose 137 mg/dL (83-110); Lipase 10 U/L (8-78); Potassium 3.7 mmol/L (3.5-5.1); Protein, Total 6.4 g/dL (6.0-8.3); Sodium 136 mmol/L (136-145)
[2017-12-13 04:54] LABS: CKMB 0.4 ng/mL (0-6.6); Troponin I 0.013 ng/mL (< 0.028)
[2017-12-13 05:08] LABS: Bilirubin Negative (Negative); Blood, Urine Negative (Negative); Clarity CLEAR (Clear); Glucose, Urine (Dipstick) Negative (Negative); Leukocyte Negative (Negative); Nitrite Negative (Negative); Protein, Urine (Dipstick) Trace mg/dL (Neg-Trace); Specific Gravity, Urine 1.011 (1.002-1.036); Urobilinogen 0.2 mg/dL (0.2-1.0); pH, Urine 6.5 (5.0-9.0)
[2017-12-13] MEDS ORDERED: Cefepime 2 GM/10 ML SYR ONE (05:47)
[2017-12-13] MEDS ORDERED: Doxycycline 100 MG CAP PO SCH (06:30)
[2017-12-13] MEDS ORDERED: Iopamidol 370 76% 50 ML VIAL FS ONE (07:31)
[2017-12-13] MEDS ORDERED: ISOVUE-370 76%-LOCM 1 ML ONE (07:31)
--- NOTE | 2017-12-13 07:56 | RAD ---
PORTABLE CHEST ONE VIEW: Date: 12-13-17 Time: 4:23 a.m. History: Fever. Flu. FINDINGS: Comparison is made with exam of 09-29-17. The heart size is enlarged. No evidence of consolidation, p neumothoraces, mando edema or pleural effusions are seen. IMPRESSION: No acute process. POS: [facility]
[2017-12-13] MEDS ORDERED: Ondansetron ODT 4 MG TAB PO PRN (08:07)
[2017-12-13] MEDS ORDERED: Ondansetron HCl/PF 4 MG/2 ML Vial IVP PRN (08:07)
[2017-12-13] MEDS: Sodium Chloride 0.9% 1,000 ML IV SCH ×2 (09:26→17:52)
[2017-12-13] MEDS ORDERED: Aztreonam 1 GM, Admixture Fee 1 EACH in Sterile Water 10 ML SLOW IVP SCH ×2 (09:30→21:00)
[2017-12-13 09:53] LABS: Lactic Acid 5.7 mmol/L (0.5-2.2)
[2017-12-13] MEDS: Acetaminophen 500 MG TAB PO PRN (11:05)
[2017-12-13] MEDS ORDERED: Albuterol Sulfate 2.5 mg/3 ml Neb NEB PRN (11:13)
--- NOTE | 2017-12-13 13:01 | CON ---
DATE OF CONSULTATION: 12/13/2017 CONSULTING PHYSICIAN: Dr. Watson Saul from the Hospitalist group. REASON FOR CONSULTATION: Sepsis syndrome. HISTORY OF PRESENT ILLNESS: History is obtained from reading the patient's office chart as well as s peaking with Dr. Saul and reading her ER notes. The patient is unable to provide much in the way of history secondary to be confused. Her daughter is at the bedside and could not provide me much in t he way of history. The patient has had a cough for the last 3 weeks at home, she developed fever last night up to 102. She has been vomiting today, which is different from usual. She has been requiring oxygen therapy, w hich apparently she does not use at home. Dr. Lino sees her for COPD. She has also had a pleural effusion that has been worked up in the past. His notes indicate that she has severe deconditioning and can barely walk even 20 feet. While I wa s in the room, interviewing the patient, she vomited. She did not appear to be any overt respiratory distress, although she did desaturate when she pulled her oxygen mask off. PAST MEDICAL HISTORY: 1. Chronic back pain. 2. Hypertension. 3. Hypothyroidism. 4. Asthma/chronic obstructive pulmonary disease. 5. Pleural effusion. 6. Depression. 7. Irritable bowel syndrome. PAST SURGICAL HISTORY: Hysterectomy, cholecystectomy, appendectomy, and multiple back surgeries. SOCIAL HISTORY: Does not consume alcohol. She has never been a smoker, does not use illicit drugs. ALLERGIES: AMOXICILLIN, CIPRO, CLINDAMYCIN, ERYTHROMYCIN, FENTANYL, LASIX, LATEX, NATURAL RUBBER, ME TOLAZONE, NUBAIN, OXYCONTIN, AUGMENTIN, SULFA DRUGS, and ZOLPIDEM; looking at the list, none of these allergies are anaphylactic in nature, all are usually associated with altered mental status or rash. HOME MEDICATIONS: Synthroid 0.125 mg daily, amlodipine 10 mg daily, valsartan 320 mg daily, gabapent in 800 mg 2 in the morning; 1 at noon; and 2 at bedtime, fluoxetine 20 mg daily, furosemide 20 mg as needed, potassium chloride 10 mEq as needed, Nexium 40 mg daily, Zantac 75 mg nightly, Meloxicam 15 m g daily, hydrocodone 10/325 five per day every 4-6 hours as needed, atorvastatin 10 mg once daily, lo peramide 2 mg as needed, alprazolam 0.25 mg at night as needed for sleep, vitamin D3 at 200 internati onal units daily, vitamin C 500 mg daily, Centrum multivitamin 1 daily, promethazine with codeine 1 t easpoon every 6 hours as needed for cough, tolterodine tartrate 4 mg daily, albuterol 0.63 nebulized solution every 4 hours as needed, ProAir metered dose inhaler as needed, and Qvar 80 mcg 1 puff twice daily. REVIEW OF SYSTEMS: Unobtainable from the patient at this time because of confusion. FAMILY MEDICAL HISTORY: Unremarkable for asthma or pulmonary disease. PHYSICAL EXAMINATION: VITAL SIGNS: O2 sat was 95% on a 40% on Ventimask, blood pressure 160/78, pulse 121, respirations 22 , and temperature 102.4. GENERAL: The patient is confused and appears mildly distant. HEENT: Pupils react. Sclerae icteric. Oropharynx dry. NECK: No JVD. LUNGS: Fairly clear without wheezing or rhonchi. CARDIOVASCULAR: S1, S2, tachycardic without murmur. ABDOMEN: Soft, slightly tender to deep palpation. EXTREMITIES: No clubbing, cyanosis or edema. SKIN: No obvious lesions. NEUROLOGIC: Moves all 4 extremities to command. PSYCHIATRIC: She is alert and able to follow commands. LABORATORY AND X-RAY FINDINGS: Micro, influenza A and B rapid tests were negative. White blood cell count 18.4, hematocrit 35.6, and platelet count 309. INR 1.2. Sodium 136, potassium 3.7, chloride 99, CO2 of 25, BUN 13, creatinine 1.2, glucose 137. Lactate 5.7, troponin 0.013. Procalcitonin 0.04 . Her chest x-ray showed cardiomegaly without obvious mass, effusion, or infiltrate. This scan was reviewed personally by myself. ASSESSMENT: 1. Sepsis syndrome. I suspect she has some type of gastroenteritis or flu-like illness. The fever has likely caused her to have a neurologic and respiratory sequela of systemic inflammatory response syndrome. 2. History of hypothyroidism. 3. History of hypertension. 4. History of asthma/chronic obstructive pulmonary disease. RECOMMENDATIONS: Transfer to [facility] for closer care. PLAN: 1. I agree with broad spectrum IV antibiotics to include ceftriaxone, vancomycin, and Levaquin. 2. Supplemental oxygen. 3. Antiemetics. 4. Low threshold for noninvasive ventilation if needed. 5. Discussed with the patient's daughter at bedside.
[2017-12-13 14:40] LABS: CSF Source CSF; Clarity Clear (Clear); Tube # 4
[2017-12-13 14:48] LABS: RBC Count - Manual 1 /cumm (None Seen); WBC/NonHematics Count - Manual 3 /cumm (0-5)
[2017-12-13 14:51] LABS: Color Of CSF Supernatant COLORLESS (Colorless); Tube # 2; Unspun CSF Color COLORLESS (Colorless)
[2017-12-13 15:05] LABS: CSF, Glucose 88 mg/dl (40-70); CSF, Protein 40 mg/dL (15-40)
--- NOTE | 2017-12-13 15:26 | CT ---
CT HEAD WITHOUT CONTRAST: Technique: Multiple axial tomograms were obtained through the head without IV enhancement. History: Altered mental status. FINDINGS: Ventricles have normal size and position. No evidence of mass or infarct. No evidence of hemorrhage. There is diffuse opacification of the left maxillary sinus and the visualized ethmoid, sphenoid, and left frontal sinuses. There is some aeration of the right maxillary sinus although there is periphera l mucosal edema. Mastoids are well aerated. IMPRESSION: 1. No acute intracranial abnormality. 2. Severe paranasal sinus disease. POS: [facility]
--- NOTE | 2017-12-13 15:35 | RAD ---
FLUOROSCOPIC GUIDED LUMBAR PUNCTURE 12/13/17 INDICATION: Concern for meningitis. TECHNIQUE: Informed consent was obtained. Preprocedure it applications manager images were preformed for guidance purposes. Site o verlying the left aspect of the L3-4 interlaminar space was marked. Site was prepped and draped in th e usual sterile fashion. Buffered 1% lidocaine was administered into the overlying subcutaneous tissu es. Under fluoroscopic guidance, a 20 gauge spinal needle was guided down into the thecal sac. There was spontaneous return of normal appearing CSF fluid. Following this, a total of 7 cm of CSF fluid we re removed in four separate aliquots. The inner stylet was replaced within the needle and the spinal needle was removed from patient's spine. Patient tolerated the procedure without difficulty. Total fl uoroscopic time was 0.2 minutes and total exposure was 456.20 uGy*m2. FINDINGS: There is severe levoscoliosis. There are laminectomy changes involving the L2 vertebral level. There is diffuse osteopenia. There is multilevel disc degenerative disease including facet arthritic change . There is cholecystectomy clips within the right upper quadrant. IMPRESSION: Successful lumbar puncture. POS: [facility]
--- NOTE | 2017-12-13 16:16 | HP ---
DATE OF ADMISSION: 12/13/2017 CHIEF COMPLAINT: Fever. HISTORY OF PRESENT ILLNESS: This is a 77-year-old white female. She lives with her daughter. Alena cody presented with a complaint of cough for the past few days and low-grade fevers. She contacted Dr. Hook's office initially, who started on prednisolone, which the patient did not take, and patient wa s brought to the ER, as her fever was getting worse and she had a change in her mental status and she was not able to communicate properly. When the patient arrived in the ER, she had a thorough evalua tion with a fever of 101 and a chest x-ray being negative and the urinalysis was also negative, but s he had elevated white count of 18,000. So, she had a septic picture with elevated lactic acid in the ER. It was 3.2. She was given some IV fluid boluses and normal saline and was started on normal sa line 125 an hour and admitted to the medical floor. The patient was seen on the medical floor. She was completely disoriented and was on oxygen at 50% Ventimask. Unable to get any history from the fabio florez. Most of the history is obtained from the patient's daughter at the bedside. The patient had a contact with one of her relatives who, was having some allergies a week ago. Otherwise, no major a llergies. She has no other major comorbidities except for hypertension. The patient was seen to be in worsening mental status, worrisome for worsening sepsis. Here it could be a meningeal irritation or it could be a possible endocarditis, as the patient had a recent history of MRSA; according to the daughter, this was in September. She was hospitalized multiple times for the same. For this reason, Pulmonary was consulted and the patient was moved to the [facility], as the patient is getting worsening s epsis. PAST MEDICAL HISTORY: 1. Hyperlipidemia. 2. Hypertension. 3. Hypothyroidism. 4. History of chronic atrial fibrillation. 5. History of anxiety and depression. 6. History of COPD. 7. History of GERD. PAST SURGICAL HISTORY: 1. Hysterectomy. 2. Appendectomy. 3. Back surgery. 4. Cholecystectomy. ALLERGIES: Patient has multiple allergies, which most of them are not true allergies. 1. Being AMOXICILLIN and CLAVULANIC acid. This should be removed from the allergy list and Cipro. Cipro was tolerated few weeks ago according to the daughter, so this should be removed. 2. Patient has a history of ERYTHROMYCIN. 3. FENTANYL. 4. METOLAZONE. 5. NABUMETONE. 6. OXYCODONE. 7. SULFA. FAMILY HISTORY: Negative for any bleeding disorders. SOCIAL HISTORY: The patient negative for smoking, alcohol, and illicit drug use. She is and lives with her . REVIEW OF SYSTEMS: Could not be obtained, as the patient was completely disoriented. Most of the re view of systems has been discussed with the patient's daughter at the bedside. HOME MEDICATIONS: 1. Albuterol inhalation. 2. Alprazolam 0.25 mg at bedtime. 3. Amlodipine 10 mg p.o. daily. 4. Atorvastatin 10 mg p.o. daily. 5. Cholecalciferol. 6. Esomeprazole 40 mg p.o. daily. 7. Fluoxetine 20 mg p.o. daily. 8. Lasix 20 mg p.o. daily. 9. Hydrocodone 1 tablet p.o. q.4 hours. 10. Levothyroxine 125 mcg p.o. daily. 11. Meloxicam 50 mg p.o. daily. 12. Multivitamin. 13. Tolterodine tartrate. 14. Valsartan 320 mg p.o. daily. PHYSICAL EXAMINATION: VITAL SIGNS: Blood pressure is 163/71, heart rate is 113, respiratory rate is 32, saturations are 95 % on 15 liters of Venturi mask and temperature of 100.8. GENERAL: The patient is seen sitting on the bed on Ventimask, is completely disoriented, and has inc reased work of breathing. HEENT: Atraumatic, normocephalic, PERRLA. Extraocular movements were intact. Oral mucosa pink and moist. CARDIOVASCULAR: S1, S2 normal. No murmurs, rubs, or gallops. LUNGS: Bilateral air entry was equal. No wheezing, no crackles. ABDOMEN: Soft, nontender, no guarding, no rebound tenderness. Bowel sounds are normal. MUSCULOSKELETAL: No calf tenderness or pedal edema. No joint tenderness, no joint swelling. SKIN: No cyanosis, no erythema, no rash, no pallor. CENTRAL NERVOUS SYSTEM: Cranial nerve examination could not be done, as the patient is not able to f ollow any commands. LYMPH NODES: Lymphadenopathy, no evidence of any generalized lymph nodes noted. PSYCHIATRIC: No signs of suicidal ideation. No signs of melanie was noted. NECK: No thyromegaly, no lymphadenopathy. LABORATORY DATA: Sodium 136, potassium 3.7, chloride is 99, bicarbonate 25, BUN is 13, creatinine is 1.17, blood glucose 137, lactic acid 3.2, increased to 5.7. CBC: WBC 18.4, hemoglobin is 11.7, hem atocrit 35.6, and platelets 309. UA was negative for any urinary tract infection. INR is 1.2. Ches t x-ray was done showing no evidence of any consolidation. Pneumothorax with mando edema and pleural effusions are seen. ASSESSMENT: 1. Severe sepsis. 2. Acute encephalopathy. 3. Need to rule out possible meningitis. 4. Acute chronic obstructive pulmonary disease exacerbation. 5. Uncontrolled hypertension. 6. Moderate dehydration. 7. History of hypothyroidism. PLAN: To transfer this patient to the [facility] at this time, as the patient is getting worsening sepsis with no source of infection identified at this time. The patient will be started on empiric antibiot ics with Rocephin 2 grams IV daily along with vancomycin 1 gram IV b.i.d. and levofloxacin to cover t he broad spectrum. Source of pneumonia has been evaluated. Chest x-ray was clear at this time, but the patient has worsening oxygen requirements. 1. Patient has worsening respiratory failure with patient being on 15 liters Ventimask at this time. At this time, we will consult Pulmonary, Dr. Farrell, and discuss the case with him. We will follo w with his recommendations. 2. Patient has worsening encephalopathy, which is new. 3. Patient could not be assessed, because of the patient's mental status and patient has high-grade fever at this time. We will do a spinal tap under fluoroscopy through interventional radiology at th is time. We will do a CT of the head to look for any evidence of intracranial hemorrhage or any evid ence of stroke. 4. The patient has history of chronic obstructive pulmonary disease, but there is no evidence of any wheezing was noted . We will follow the pulmonary recommendations. We will continue with the DuoNe b every 4 hours and albuterol nebs every 2 hours as needed. I would not start her on any steroids at this time unless the Pulmonary feels to start. 5. Patient has uncontrolled hypertension, likely from anxiety at this time. We will closely monitor . The patient has had severe sepsis and she is on IV fluids at 125 mg per hour. We will slowdown th e fluids if needed. 6. History of hypothyroidism. We will closely monitor. 7. We will restart home medications once the patient is more stable. 8. DVT prophylaxis with Lovenox 40 mg subcu daily. I spent 75 minutes with this patient. Of this, one hour I spent in critical care time from 11:30-12: 30 p.m.
[2017-12-13] MEDS ORDERED: Sedation Protocol FS ONE (16:17)
[2017-12-13] MEDS ORDERED: Midazolam HCl 2 mg/2 ml Vial ONE (16:26)
[2017-12-13] MEDS ORDERED: DISCONTINUE PREVIOUS NARCOTIC PAIN MEDICATIONS AND BENZODIAZEPINES FS SCH (16:29)
[2017-12-13] MEDS ORDERED: Morphine 2 MG/ML SYRINGE SLOW IVP PRN (16:29)
[2017-12-13] MEDS ORDERED: Fentanyl BOLUS 250 ML IVPB PRN (16:31)
[2017-12-13] MEDS ORDERED: fentaNYL Citrate/PF 2,000 MCG in Sodium Chloride 0.9% 60 ML IV SCH (16:31)
[2017-12-13] MEDS ORDERED: DOBUTamine 500 mg/250 ml 0 ML ONE (16:33)
[2017-12-13] MEDS ORDERED: PROPOFOL 0 ML ONE (16:33)
[2017-12-13] MEDS ORDERED: Propofol 1,000 MG/100 ML VIAL IV ONE (16:34)
[2017-12-13] MEDS ORDERED: Rocuronium Bromide 50 MG/5 ML VIAL ONE (16:56)
[2017-12-13] MEDS ORDERED: Rocuronium Bromide 50 MG/5 ML VIAL IVP SCH (17:30)
[2017-12-13 17:39] LABS: CO2 Tension 33.5 mmHg (35.0-45.0); O2 Tension (PaO2) 58.7 mmHg (80.0-100.0); pH, Arterial 7.45 (7.35-7.45)
--- NOTE | 2017-12-13 17:39 | PRG ---
DATE OF SERVICE: 12/13/2017 CRITICAL CARE PROGRESS NOTE This encompasses 70 minutes of critical care time. The patient was transported to the IMCU earlier this afternoon. She underwent lumbar puncture, which was really unrevealing. She has had persistent respiratory distress and intermittent vomiting throu ghout the afternoon. I talked to the patient's and the patient's daughter at length. I told them that I felt the patient was quickly decompensating and would end up intubated overnight. I lupe d him that I preferred to act sooner rather than later. We discussed code status and they agreed to the patient would want attempt at resuscitation. The patient was transported quickly to the CCU. She was intubated on first attempt by the resident lety desir my direct guidance. The patient had a 7.5 endotracheal tube placed using the GlideScope. Place ment was confirmed by auscultation and by end tidal CO2 turning yellow. The patient then underwent right IJ central line placement by the resident under my direct supervisio n. Ultrasound guidance was used for real time placement. Three lumens flushed venous blood. The pa tient was placed on mechanical ventilation and settings were adjusted according to the ABG. She will be maintained on antibiotics. I will place an NG tube.
[2017-12-13 17:40] LABS: ALV-art Gradient 253.425 (0-20); Analyzer IN Cardio OR; Base Excess (BEa) -0.5 mEq/L (0 (+/-) 2.5); Calcium, Ionized 1.1 mmol/L (1.12-1.30); Hematocrit-ABG 33.8 % (36.0-47.0); Hemoglobin (Hb) 10.6 g/dL (12.0-16.0); Puncture Site RR
[2017-12-13] MEDS: cefTRIAXone\\ROCEPHIN 2 GM in Sodium Chloride 0.9% 100 ML IVPB SCH (17:51)
[2017-12-13] MEDS ORDERED: Acetaminophen 650 MG in Premix Bag 1 BAG IVPB PRN (18:09)
[2017-12-13] MEDS: Vancomycin HCl 1 GM in Premix Bag 1 BAG IVPB SCH (18:34)
[2017-12-13] MEDS: Lactated Ringer's 1,000 ML IV SCH (18:35)
--- NOTE | 2017-12-13 19:22 | RAD ---
CHEST ONE VIEW 12/13/17 HISTORY: Line placement. COMPARISON: Chest radiograph 12/13/17. FINDINGS: A new right IJ central venous catheter is in place with tip directed laterally to the level of the campbell bclavian vein. Patient's endotracheal tube tip below the level of the clavicles although above the ca ghazala approximately 3.5 cm. No pneumothorax is appreciated. Layering effusions and bibasilar infiltrates. IMPRESSION: New right IJ central venous catheter with tip directed laterally towards the expected location of the subclavian vein. Recommend retracting and readvancing a new catheter. POS: [facility]
[2017-12-13] MEDS: Propofol 1,000 MG/100 ML VIAL IV PRN ×2 (20:25→23:48)
[2017-12-13] MEDS ORDERED: Aztreonam 1 GM in Sodium Chloride 0.9% 100 ML IVPB SCH (21:00)
--- NOTE | 2017-12-13 23:17 | CT ---
CT ABDOMEN AND PELVIS WITH CONTRAST 12/13/17 HISTORY: Bowel obstruction. COMPARISON: CT abdomen and pelvis 04/10/17. FINDINGS: There are extensive bilateral air space opacities concerning for pneumonia. Pulmonary trunk is enlarg ed. Enteric tube tip is at the gastric fundus. Diffuse hepatic steatosis. Mild gastric varices. Portal vein is patent. Prior cholecystectomy. There is atrophy of the pancreatic parenchyma. No free intraperitoneal gas or fluid. Dunn catheter i s present. No evidence for bowel obstruction. The bones are severely osteopenic. There is abnormal cortical tunneling with possible developing stre ss fracture on the right femoral neck. Severe degenerative disease of the lumbar spine with severe fa cet arthropathy. There is some laminectomy changes. IMPRESSION: 1. Multifocal pneumonia. 2. Pulmonary artery hypertension. 3. Diffuse hepatic steatosis. 4. No evidence of bowel obstruction. 5. Developing stress fracture right femoral neck and intertrochanteric femur. 6. 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 POS: [facility]
--- NOTE | 2017-12-13 23:29 | OP-2 ---
DATE OF PROCEDURE: 12/13/2017 RESIDENT PHYSICIAN: Shakir Camargo M.D. ATTENDING PHYSICIAN: Jung Farrell M.D. PREPROCEDURAL DIAGNOSES: 1. Acute respiratory distress with impending respiratory failure. 2. Sepsis. 3. Poor peripheral venous access. PROCEDURES PERFORMED: 1. Endotracheal intubation. 2. Right internal jugular triple-lumen central line placement. INDICATIONS: Ms. Santizo is a 77-year-old female who was admitted to the [facility] for altered mentation and sepsis of unclear etiology at this time. She began experiencing worsening of her mentation and increased labored breathing. There was concerned the patient was not able to protect her airway. After a long discussion with the family, they agreed to proceed with endotracheal intubation and central line placement. PROCEDURE IN DETAIL: The patient was transferred from the [facility] to the Critical Care Unit. The patient was sedated and paralyzed with Versed and succinylcholine. A GlideScope with #3 blade was entered into the mouth with vocal cords visualized. A 7.5 endotracheal tube was passed through the vocal cords under direct supervision without difficulty. Tube placement was verified with bilateral breath sounds and end-tidal CO2 monitoring. The endotracheal tube was secured. Attention was then turned to the patient's right neck. Neck was prepped and draped in thye usual sterile fashion. The right internal jugular vein was canulated under real time ultrasound guidance. A triple lumen central venous catheter was then placed using the Seldinger technique. All three ports had adequate venous blood returned and flushed easily. Line was secured with 3-0 nylon suture and Tegaderm. Antimicrobial patch was placed at the base of the central line prior to Tegaderm placement. Post-procedural x- ray revealed endotracheal tube in adequate position and OG tube in adequate position. The tip of the central line appears to be resting within the right subclavian vein. We will attach central venous pressure monitoring to determine waveform. If central venous pressure monitoring is required and inadequate waveform is present, we will consider repositioning the central line via over wire exchange. Official read on the x-ray is pending at this time. The patient tolerated endotracheal intubation and central line placement well. Dr. Farrell was present for the entirety of both procedures. [facility]
[2017-12-14] MEDS: Vancomycin HCl 1 GM in Premix Bag 1 BAG IVPB SCH ×2 (01:25→13:41)
[2017-12-14] MEDS: Propofol 1,000 MG/100 ML VIAL IV PRN ×6 (03:25→21:01)
[2017-12-14 04:33] LABS: #Eosinphils 0.1 thou/uL (0.0-0.7); #Lymphocytes 1.7 thou/uL (1.20-3.40); #Monocytes 1.2 thou/uL (0.11-0.59); #Neutrophils 13.6 thou/uL (1.40-6.50); %Eosinophils 0.5 % (0.0-10.0); %Lymphocytes 10.4 % (21.0-51.0); %Monocytes 7.1 % (0.0-10.0); %Neutrophils 81.9 % (42.0-75.0); Hemoglobin 10.5 g/dL (12.0-16.0); Mean Corpuscular HGB CONC 33.2 g/dL (32.0-36.0); Mean Corpuscular Hemoglobin 30.3 pg (27.0-31.0); Mean Corpuscular Volume 91.1 fl (81.0-99.0); Mean Platelet Volume 7.6 fL (7.4-10.4); Platelet Count 241 thou/uL (130-400); RBC Distribution Width 12.8 % (11.5-14.5); Red Blood Cell (RBC) Count 3.46 mill/uL (4.20-5.40); White Blood Cell (WBC) Count 16.6 thou/uL (4.8-10.8)
[2017-12-14 04:37] LABS: ALT (SGPT) 171 U/L (8-55); AST (SGOT) 236 U/L (5-34); Albumin 2.6 g/dL (3.4-4.8); Alkaline Phosphatase 100 U/L (40-150); Anion Gap 12 mmol/L (10-20); BUN (Urea Nitrogen) 14 mg/dL (9.8-20.1); Bilirubin, Total 0.4 mg/dL (0.2-1.2); Calc. Creatinine Clearance 61 mL/min (70-130); Calcium 8.3 mg/dL (7.8-10.44); Carbon Dioxide 26 mmol/L (23-31); Chloride 103 mmol/L (98-107); Estimated GFR-MDRD 48; Globulin 2.5 g/dL (2.4-3.5); Glucose 123 mg/dL (83-110); Potassium 3.3 mmol/L (3.5-5.1); Protein, Total 5.1 g/dL (6.0-8.3); Sodium 138 mmol/L (136-145)
[2017-12-14] MEDS: Lactated Ringer's 1,000 ML IV SCH ×3 (06:44→18:23)
[2017-12-14 07:40] LABS: Actual Bicarbonate (HCO3a) 23.8 mEq/L (22-26); Base Excess (BEa) 2.3 mEq/L (0 (+/-) 2.5); CO2 Tension 26.9 mmHg (35.0-45.0); Hematocrit-ABG 33.4 % (36.0-47.0); Hemoglobin (Hb) 10.5 g/dL (12.0-16.0); pH, Arterial 7.56 (7.35-7.45)
[2017-12-14 07:41] LABS: Calcium, Ionized 1.1 mmol/L (1.12-1.30)
[2017-12-14 07:46] LABS: ALV-art Gradient 188.575 (0-20); Puncture Site RRA
[2017-12-14] MEDS ORDERED: CCU Electrolyte Replacement 1 EACH FS SCH (07:58)
[2017-12-14] MEDS ORDERED: Metoclopramide HCl 10 MG/2 ML VIAL IVP PRN (07:59)
[2017-12-14] MEDS ORDERED: Sodium Chloride 0.9% 1,000 ML IV SCH (08:00)
[2017-12-14] MEDS ORDERED: Magnesium Oxide 400 MG TAB PO PRN ×2 (08:12)
[2017-12-14] MEDS ORDERED: Magnesium 2 GM/NS 0.9% 100 ML 2 GM in Premix Bag 1 BAG IVPB PRN (08:12)
[2017-12-14] MEDS ORDERED: Potassium Chloride 40 MEQ in Sodium Chloride 0.9% 250 ML 250 ML IVPB PRN (08:12)
[2017-12-14] MEDS ORDERED: CCU ELECTROLYTE REPLACEMENT PROTOCOL FS PRN (08:12)
[2017-12-14] MEDS ORDERED: Potassium Phosphate 15 MMOL in Sodium Chloride 0.9% 250 ML 250 ML IV PRN (08:12)
[2017-12-14] MEDS ORDERED: Potassium Phosphate 12 MMOL in Sodium Chloride 0.9% 250 ML 250 ML IV PRN (08:12)
[2017-12-14] MEDS ORDERED: Potassium Phosphate 9 MMOL in Sodium Chloride 0.9% 100 ML IVPB PRN (08:12)
[2017-12-14] MEDS ORDERED: Potassium Chloride 20 MEQ TAB PO PRN (08:12)
--- NOTE | 2017-12-14 08:12 | PRG ---
DATE OF SERVICE: 12/14/2017 PULMONARY AND CRITICAL CARE PROGRESS NOTE Thirty five minutes of critical care time. SUBJECTIVE: Patient remains intubated on mechanical ventilation. She did well last night. PHYSICAL EXAMINATION: VITAL SIGNS: Temperature is 97.9 with T-max of 102.2, pulse is 94, blood pressure 170/71. A 24 hour intake 2617 and output 2790. NEUROLOGIC: She will wake up with stimulation. HEENT: Unremarkable. NECK: No JVD. LUNGS: Fairly clear anteriorly. CARDIOVASCULAR: S1 and S2 regular. ABDOMEN: Soft, nontender. EXTREMITIES: No edema. IMAGING DATA: Her chest x-ray shows bilateral lower lobe infiltrates consistent with aspiration. LABORATORY DATA: Sodium 138, potassium 3.3, chloride 103, CO2 26, BUN 14, creatinine 1.1, glucose 12 3, AST 236, ALT 171, and albumin 2.6. White blood cell count 16.6, hematocrit 31.6, platelet count 2 41, pH 7.56, pCO2 27, pO2 63 that was on SIMV rate 16, tidal volume 500, PEEP 5, pressure support 10, FiO2 40%. Abdominal CT demonstrated lower lobe infiltrates. There is no evidence of small-bowel ob struction. She had diffuse hepatic steatosis. She had some osteopenic changes in her spine and in h er femoral neck area. ASSESSMENT: 1. Acute respiratory failure secondary to aspiration pneumonia. 2. Sepsis syndrome. 3. Suspected gastroenteritis. 4. Elevated liver function tests. 5. Hypertension. PLAN: 1. Give some volume because her CVP is still running quite low. 2. Check lactate level. 3. Continue IV antibiotics. 4. Try to initiate enteral tube feeds. 5. Resume antihypertensive medications. 6. Suspect she will need to be on mechanical ventilation for several more days. I have adjusted her ventilator settings for the respiratory alkalosis. 7. Await results of echo that were ordered yesterday. 8. Hepatitis profile.
--- NOTE | 2017-12-14 08:33 | RAD ---
PORTABLE CHEST: History: Ventilator follow up. CCU patient. Dyspnea. Comparison: 12-13-17 FINDINGS: ET tube, NG tube unchanged. Central line in the right jugular unchanged in position with tip projecti ng into the right subclavian. Bibasilar opacification is again seen consistent with bibasilar infiltrates and/or atelectasis with s mall bilateral effusions, larger on the left. Appearance of the lungs have not significantly changed from yesterday. POS: [facility]
[2017-12-14 08:42] LABS: Lactic Acid 1.3 mmol/L (0.5-2.2)
[2017-12-14] MEDS: Enoxaparin Sodium 40 MG/0.4 ML SYRINGE SC SCH (09:11)
[2017-12-14] MEDS: Amlodipine 10 MG TAB PER TUBE SCH (09:11)
[2017-12-14] MEDS: Pantoprazole 40 MG VIAL IVP SCH (09:12)
[2017-12-14] MEDS: FLUoxetine HCl 20 MG CAP PER TUBE SCH (09:12)
[2017-12-14 09:16] LABS: HBSAg Index 0.26 S/CO (0-0.99); Hep B Surf Ag Non-Reactive S/CO (NonReactive); Hep C IgG Ab Non-Reactive (NonReactive); Hep C Index 0.11 S/CO (0-0.79)
[2017-12-14 09:17] LABS: Hep A IgM AB Non-Reactive (NonReactive); Hep A IgM S/CO 0.09 S/CO (0-0.79)
[2017-12-14 09:18] LABS: Hepatitis B Core IGM Abs Non-Reactive (NonReactive)
[2017-12-14] MEDS: Valsartan 80 MG TAB PER TUBE SCH (09:30)
[2017-12-14] MEDS: cefTRIAXone\\ROCEPHIN 2 GM in Sodium Chloride 0.9% 100 ML IVPB SCH (12:52)
--- NOTE | 2017-12-14 15:17 | PDOC.PN ---
- Subjective Encounter Start Date: 12/14/17 Encounter Start Time: 14:00 Patient is seen today, intubated and Sedated with propofol, Discussd with patient daughter at bedside,. - Objective MAR Reviewed: Yes Vital Signs & Weight: Vital Signs (12 hours) Temp Pulse Resp BP Pulse Ox 12/14/17 14:00 15 12/14/17 13:14 83 12/14/17 13:00 99 F 12/14/17 12:00 15 12/14/17 10:58 69 12/14/17 10:00 11 L 12/14/17 09:11 70 156/55 H 12/14/17 08:00 98.9 F 67 15 100 12/14/17 07:26 70 12/14/17 06:00 16 12/14/17 04:00 97.9 F 16 Weight Admit Weight 202 lb Weight 202 lb 3 oz Most Recent Monitor Data Heart Rate from ECG 104 NIBP 171/74 NIBP BP-Mean 110 Respiration from ECG 19 SpO2 100 I&O: 12/13/17 12/14/17 12/15/17 06:59 06:59 06:59 Intake Total 2616.7 1500 Output Total 2790 1300 Balance -173.3 200 Result Diagrams: 12/14/17 04:18 12/14/17 04:18 Radiology Reviewed by me: Yes Phys Exam - Physical Examination HEENT: PERRLA, moist MMs Neck: no nodes, no JVD Respiratory: no wheezing, no rales Cardiovascular: RRR, no significant murmur Gastrointestinal: soft, non-tender Musculoskeletal: no edema, pulses present Neurological: non-focal, normal sensation Lymphatic: no nodes Psychiatric: normal affect, A&O x 3 Skin: no rash, normal turgor Dx/Plan (1) Acute respiratory failure with hypoxia Code(s): J96.01 - ACUTE RESPIRATORY FAILURE WITH HYPOXIA Status: Acute Comment: PT is intubated and Sedated, Will continue with [facility] ventilation per Dr. Farrell,. (2) Afib Code(s): I48.91 - UNSPECIFIED ATRIAL FIBRILLATION Status: Acute Qualifiers: Atrial fibrillation type: chronic Qualified Code(s): I48.2 - Chronic atrial fibrillation Comment: no anticoagulation due to hx of bleeding, ASA 81mg daily (3) Pneumonia Code(s): J18.9 - PNEUMONIA, UNSPECIFIED ORGANISM Status: Acute Qualifiers: Laterality: bilateral Comment: Worseing Infiltatrtes both lungs, Will continue with IV rocephin/ Vancomycin/ levofloxacin. Coninue with mechanical ventilation per Dr. Farrell. (4) COPD (chronic obstructive pulmonary disease) Status: Chronic Comment: Continue general pulm support with Mech Vent (5) Hypertension Code(s): I10 - ESSENTIAL (PRIMARY) HYPERTENSION Status: Chronic Qualifiers: Comment: Poorly controlled Will continue with PRN Hydralzine now. keep Systolic < 130 (6) Hypothyroidism Code(s): E03.9 - HYPOTHYROIDISM, UNSPECIFIED Status: Chronic Qualifiers: (7) Obesity (BMI 30-39.9) Code(s): E66.9 - OBESITY, UNSPECIFIED Status: Chronic - Plan cont current plan of care, plan discussed w/ family, continue antibiotics, respiratory therapy, DVT proph w/lovenox * . - Discharge Day Encounter end time: 14:35 Review of Systems - Review of Systems Other: Pt inTubated and Sedated. - Medications/Allergies Allergies/Adverse Reactions: Allergies Allergy/AdvReac Type Severity Reaction Status Date / Time amoxicillin trihydrate Allergy Diarrhea Verified 06/28/15 03:10 [From Augmentin] ciprofloxacin [From Cipro] Allergy Rash Verified 06/28/15 03:10 clindamycin Allergy Verified 06/28/15 03:10 erythromycin lactobionate Allergy Verified 06/28/15 03:10 [From Erythrocin] fentanyl [From Duragesic] Allergy Rash Verified 06/28/15 03:10 Latex, Natural Rubber Allergy Rash Verified 06/28/15 03:10 metolazone [Metolazone] Allergy Verified 06/28/15 03:10 nalbuphine HCl [From Nubain] Allergy Verified 06/28/15 03:10 oxycodone HCl Allergy Rash Verified 06/28/15 03:10 [From OxyContin] potassium clavulanate Allergy Diarrhea Verified 06/28/15 03:10 [From Augmentin] Sulfa (Sulfonamide Allergy Rash Verified 06/28/15 03:10 Antibiotics) sulfamethoxazole Allergy Verified 06/28/15 03:10 [From Bactrim] trimethoprim [From Bactrim] Allergy Verified 06/28/15 03:10 zolpidem tartrate AdvReac Intermediate "crazy" Verified 06/28/15 03:10 [From Ellie] Medications: Current Medications Acetaminophen (Tylenol) 500 mg PO Q6H PRN PRN Reason: Headache/Fever or Pain Last Admin: 12/13/17 11:05 Dose: 500 mg Albuterol Sulfate (Ventolin) 2.5 mg NEB Q2H PRN PRN Reason: Wheezing Amlodipine Besylate (Norvasc) 10 mg PER TUBE DAILY REPLACED BY [facility] Last Admin: 12/14/17 09:11 Dose: 10 mg Enoxaparin Sodium (Lovenox) 40 mg SC 0900 REPLACED BY [facility] Last Admin: 12/14/17 09:11 Dose: 40 mg Fluoxetine HCl (Prozac) 20 mg PER TUBE DAILY REPLACED BY [facility] Last Admin: 12/14/17 09:12 Dose: 20 mg Ceftriaxone Sodium 2 gm/ (Sodium Chloride) 100 mls @ 200 mls/hr IVPB Q24HR REPLACED BY [facility] Last Admin: 12/14/17 12:52 Dose: 100 mls Levofloxacin 750 mg/ Device 150 mls @ 100 mls/hr IVPB Q24HR REPLACED BY [facility] Last Admin: 12/14/17 11:25 Dose: 150 mls Vancomycin HCl 1 gm/ Device 200 mls @ 200 mls/hr IVPB 0100,1300 REPLACED BY [facility] Last Admin: 12/14/17 13:41 Dose: 200 mls Fentanyl Citrate 2,000 mcg/ (Sodium Chloride) 100 mls @ 0 mls/hr IV INF REPLACED BY [facility]; Per Protocol PRN Reason: Protocol Stop: 01/12/18 16:31 Fentanyl Citrate (Fentanyl Bolus) 250 mls @ 0 mls/hr IVPB PRN PRN; As Directed PRN Reason: Breakthrough pain Stop: 01/12/18 16:31 Lactated Ringer's (Lactated Ringer's) 1,000 mls @ 120 mls/hr IV .Q8H20M REPLACED BY [facility] Last Admin: 12/14/17 06:44 Dose: 1,000 mls Acetaminophen 650 mg/ Device 65 mls @ 400 mls/hr IVPB Q6H PRN PRN Reason: Fever > 101 Stop: 12/14/17 18:10 Potassium Chloride 40 meq/ (Sodium Chloride) 270 mls @ 135 mls/hr IVPB ASDIR PRN PRN Reason: FOR SERUM K+ 2.5 - 3.5 Potassium Chloride 40 meq/ (Device) 100 mls @ 50 mls/hr IVPB ASDIR PRN PRN Reason: FOR SERUM K+ 2.5 - 3.5 Magnesium Sulfate 1 gm/ Sodium (Chloride) 102 mls @ 102 mls/hr IV PRN PRN PRN Reason: MAG LEVEL 1.4 - 2.0 Magnesium Sulfate 2 gm/ Device 100 mls @ 100 mls/hr IVPB ASDIR PRN PRN Reason: MAGNESIUM < 1.4 Potassium Phosphate 9 mmol/ (Sodium Chloride) 103 mls @ 25.75 mls/hr IVPB ASDIR PRN PRN Reason: Phosphate 1.0-1.8 Potassium Phosphate 12 mmol/ (Sodium Chloride) 254 mls @ 63.5 mls/hr IV ASDIR PRN PRN Reason: Serum phosphate 0.5-0.9 Potassium Phosphate 15 mmol/ (Sodium Chloride) 255 mls @ 63.75 mls/hr IV ASDIR PRN PRN Reason: Serum Phos < 0.5 Lorazepam (Ativan) 2 mg SLOW IVP Q2H PRN PRN Reason: Anxiety to achieve Riggs 2-3 Stop: 01/12/18 16:29 Magnesium Oxide (Magnesium Oxide) 400 mg PO BIDPRN PRN PRN Reason: FOR SERUM MAG 1.4 - 2.0 Magnesium Oxide (Magnesium Oxide) 800 mg PO PRN PRN PRN Reason: FOR SERUM MAG < 1.4 Metoclopramide HCl (Reglan) 10 mg IVP Q6H PRN PRN Reason: Nausea/Vomiting Miscellaneous Medication (Phos-Nak) 1 pkt PO TIDPRN PRN PRN Reason: FOR PHOS LEVEL 1.0 - 1.8 Miscellaneous Medication (Phos-Nak) 2 pkt PO TIDPRN PRN PRN Reason: FOR PHOS LEVEL 0.5 - 1.0 Morphine Sulfate (Morphine Sulfate) 2 mg SLOW IVP Q2H PRN PRN Reason: Breakthrough pain Stop: 01/12/18 16:29 Discontinue Previous Narcotic Pain Medications And Benzodiazepines 1 each FS .ONE JERMAINE Stop: 01/12/18 16:29 Ccu Electrolyte (Replacement Protocol) 0 each FS PRN PRN PRN Reason: FOR ELECTROLYTE REPLACEMENT Pantoprazole Sodium (Protonix) 40 mg IVP DAILY [facility] Last Admin: 12/14/17 09:12 Dose: 40 mg Potassium Chloride (K-Dur) 40 meq PO ASDIR PRN PRN Reason: FOR SERUM K+ 2.5 - 3.5 Potassium Chloride (Klor-Con) 40 meq PER TUBE ASDIR PRN PRN Reason: FOR SERUM K+ 2.5-3.5 Last Admin: 12/14/17 10:54 Dose: 40 meq Propofol (Diprivan) 1,000 mg IV INF PRN; Protocol PRN Reason: TO ACHIEVE RIGGS SCORE 2-3 Stop: 01/12/18 16:29 Last Admin: 12/14/17 13:41 Dose: 1,000 mg Sodium Chloride (Flush - Normal Saline) 10 ml IVF Q12HR REPLACED BY [facility] Last Admin: 12/14/17 09:12 Dose: 10 ml Sodium Chloride (Flush - Normal Saline) 10 ml IVF PRN PRN PRN Reason: Saline Flush Valsartan (Diovan) 320 mg PER TUBE DAILY REPLACED BY [facility] Last Admin: 12/14/17 09:30 Dose: 320 mg
[2017-12-14] MEDS: Lorazepam 2 MG/ML VIAL SLOW IVP PRN ×2 (17:17→21:01)
[2017-12-14] MEDS ORDERED: Vancomycin HCl 25 MG/ML Oral PO SCH (22:30)
[2017-12-15] MEDS ORDERED: Sodium Bicarbonate Tab 325 MG TAB PER TUBE PRN (00:17)
[2017-12-15] MEDS ORDERED: Pancrelipase DR 12000 1 CAP FS PRN (00:17)
[2017-12-15] MEDS ORDERED: Metoprolol Tartrate 25 MG TAB PER TUBE SCH (00:45)
[2017-12-15] MEDS: Lactated Ringer's 1,000 ML IV SCH ×3 (04:00→18:25)
[2017-12-15 06:22] LABS: #Eosinphils 0.6 thou/uL (0.0-0.7); #Lymphocytes 1.9 thou/uL (1.20-3.40); #Monocytes 1.2 thou/uL (0.11-0.59); #Neutrophils 9.9 thou/uL (1.40-6.50); %Basophils 0.1 % (0.0-1.0); %Eosinophils 4.3 % (0.0-10.0); %Lymphocytes 14.1 % (21.0-51.0); %Monocytes 8.5 % (0.0-10.0); Hemoglobin 11.4 g/dL (12.0-16.0); Mean Corpuscular HGB CONC 33.1 g/dL (32.0-36.0); Mean Corpuscular Hemoglobin 30.4 pg (27.0-31.0); Mean Platelet Volume 7.2 fL (7.4-10.4); Platelet Count 247 thou/uL (130-400); RBC Distribution Width 12.6 % (11.5-14.5); Red Blood Cell (RBC) Count 3.76 mill/uL (4.20-5.40); White Blood Cell (WBC) Count 13.5 thou/uL (4.8-10.8)
[2017-12-15] MEDS: Propofol 1,000 MG/100 ML VIAL IV PRN ×2 (06:26→18:15)
[2017-12-15 06:47] LABS: ALT (SGPT) 115 U/L (8-55); AST (SGOT) 78 U/L (5-34); Alkaline Phosphatase 115 U/L (40-150); Anion Gap 11 mmol/L (10-20); BUN (Urea Nitrogen) 14 mg/dL (9.8-20.1); Bilirubin, Total 0.3 mg/dL (0.2-1.2); Calc. Creatinine Clearance 78 mL/min (70-130); Calcium 9.1 mg/dL (7.8-10.44); Carbon Dioxide 27 mmol/L (23-31); Chloride 105 mmol/L (98-107); Estimated GFR-MDRD 62; Globulin 2.9 g/dL (2.4-3.5); Glucose 133 mg/dL (83-110); Potassium 3.2 mmol/L (3.5-5.1); Protein, Total 5.9 g/dL (6.0-8.3); Sodium 140 mmol/L (136-145)
[2017-12-15] MEDS: Potassium Chloride 40 MEQ in Premix Bag 1 BAG IVPB PRN (06:51)
[2017-12-15 06:55] LABS: ALV-art Gradient 93.275 (0-20); Actual Bicarbonate (HCO3a) 25.4 mEq/L (22-26); Base Excess (BEa) 0.9 mEq/L (0 (+/-) 2.5); CO2 Tension 40.1 mmHg (35.0-45.0); Calcium, Ionized 1.2 mmol/L (1.12-1.30); Hematocrit-ABG 34.1 % (36.0-47.0); Hemoglobin (Hb) 10.7 g/dL (12.0-16.0); O2 Tension (PaO2) 70.5 mmHg (80.0-100.0); Puncture Site RRA; pH, Arterial 7.42 (7.35-7.45)
--- NOTE | 2017-12-15 08:09 | RAD ---
PORTABLE CHEST: Date: 12/15/17 COMPARISON: 12/14/17 study. HISTORY: Respiratory distress. FINDINGS: Endotracheal and NG tubes remain in satisfactory position. Bibasilar interstitial lung changes appear similar. Endotracheal and NG tubes appear essentially unchanged in position. IMPRESSION: Stable chest. POS: OFF
--- NOTE | 2017-12-15 08:21 | PRG ---
DATE OF SERVICE: 12/15/2017 PULMONARY AND CRITICAL CARE PROGRESS NOTE Thirty five minutes of critical care time. SUBJECTIVE: The patient is more responsive today than she was yesterday. She is able to nod to ques tions. PHYSICAL EXAMINATION: VITAL SIGNS: Temperature 99.9, pulse 69, blood pressure 147/54. A 24 hour intake 5502, output 3025. HEENT: Unremarkable. NECK: No JVD. LUNGS: Diminished breath sounds in the right base, clear left. CARDIAC: S1, S2 regular. ABDOMEN: Soft, slightly tender in left lower quadrant. EXTREMITIES: No edema. LABORATORY DATA: PH 7.42, pCO2 of 40, pO2 of 70 on SIMV rate 10, tidal volume 450, PEEP of 8, pressu re support 10, FiO2 30%. White blood cell count 13.5, hematocrit 34.6, platelet count 247. Sodium 1 40, potassium 3.2, chloride 105, CO2 27, BUN 14, creatinine 0.8, glucose 133, AST 78, ALT 115. C. di ff antigen and toxin were positive on this patient and she has grown out Proteus mirabilis from her u rine catheter. ASSESSMENT: 1. Clostridium difficile colitis. 2. Acute respiratory failure requiring mechanical ventilation. 3. Aspiration pneumonia. 4. Urinary tract infection. PLAN: I do not think she is weanable yet. We will continue supportive care with the oral vancomycin , IV ceftriaxone and IV Levaquin. She is receiving enteral tube feeds. I will try to decrease respi ratory rate on ventilator and hopefully think about extubating by tomorrow. I will discuss with reddy luz when I see them today.
[2017-12-15] MEDS: Amlodipine 10 MG TAB PER TUBE SCH (09:28)
[2017-12-15] MEDS: Enoxaparin Sodium 40 MG/0.4 ML SYRINGE SC SCH (09:29)
[2017-12-15] MEDS: FLUoxetine HCl 20 MG CAP PER TUBE SCH (09:30)
[2017-12-15] MEDS: Pantoprazole 40 MG VIAL IVP SCH (09:30)
[2017-12-15] MEDS: Metoprolol Tartrate 25 MG TAB PER TUBE SCH ×2 (09:30→21:46)
[2017-12-15] MEDS: Vancomycin HCl 25 MG/ML Oral PO SCH ×4 (09:31→21:46)
[2017-12-15] MEDS: Valsartan 80 MG TAB PER TUBE SCH ×2 (09:47→10:10)
[2017-12-15] MEDS ORDERED: Vancomycin HCl 1.25 GM in Sodium Chloride 0.9% 250 ML 250 ML IVPB SCH (11:00)
[2017-12-15] MEDS ORDERED: VANCOMYCIN IVPB PRN (11:10)
[2017-12-15 11:47] LABS: Vancomycin, Random 15.3 ug/mL (See Comment)
--- NOTE | 2017-12-15 12:24 | PDOC.PN ---
- Subjective Encounter Start Date: 12/15/17 Encounter Start Time: 09:00 Patient is seen today with Family omer at bedside, Intubated and sedated. - Objective MAR Reviewed: Yes Vital Signs & Weight: Vital Signs (12 hours) Temp Pulse Resp BP Pulse Ox 12/15/17 10:42 66 12/15/17 09:28 71 156/56 H 12/15/17 08:56 74 12/15/17 08:00 97.4 F L 66 16 98 12/15/17 07:00 97.6 F 12/15/17 06:43 78 12/15/17 06:00 13 12/15/17 05:00 99.9 F H 12/15/17 04:00 15 12/15/17 02:45 73 129/54 L 12/15/17 02:00 11 L Weight Admit Weight 202 lb Weight 202 lb 3 oz Most Recent Monitor Data Heart Rate from ECG 61 NIBP 124/49 NIBP BP-Mean 88 Respiration from ECG 14 SpO2 96 I&O: 12/14/17 12/15/17 12/16/17 06:59 06:59 06:59 Intake Total 2616.7 5502 180 Output Total 2790 3025 1050 Balance -173.3 2477 -870 Result Diagrams: 12/15/17 06:18 12/15/17 06:18 Radiology Reviewed by me: Yes Dx/Plan (1) Acute respiratory failure with hypoxia Code(s): J96.01 - ACUTE RESPIRATORY FAILURE WITH HYPOXIA Status: Acute Comment: PT is intubated and Sedated, Will continue with Mech ventilation per Dr. Farrell,. (2) Afib Code(s): I48.91 - UNSPECIFIED ATRIAL FIBRILLATION Status: Acute Qualifiers: Atrial fibrillation type: chronic Qualified Code(s): I48.2 - Chronic atrial fibrillation Comment: no anticoagulation due to hx of bleeding, ASA 81mg daily (3) Pneumonia Code(s): J18.9 - PNEUMONIA, UNSPECIFIED ORGANISM Status: Acute Qualifiers: Laterality: bilateral Comment: Worseing Infiltatrtes both lungs, Will continue with IV rocephin/ Vancomycin/ levofloxacin. Coninue with mechanical ventilation per Dr. Farrell. (4) COPD (chronic obstructive pulmonary disease) Status: Chronic Comment: Continue general pulm support with Mech Vent (5) Hypertension Code(s): I10 - ESSENTIAL (PRIMARY) HYPERTENSION Status: Chronic Qualifiers: Comment: Poorly controlled Will continue with PRN Hydralzine now. keep Systolic < 130 (6) Hypothyroidism Code(s): E03.9 - HYPOTHYROIDISM, UNSPECIFIED Status: Chronic Qualifiers: (7) Obesity (BMI 30-39.9) Code(s): E66.9 - OBESITY, UNSPECIFIED Status: Chronic (8) Clostridium difficile diarrhea Code(s): A04.72 - ENTEROCOLITIS D/T CLOSTRIDIUM DIFFICILE, NOT SPCF RECUR Status: Acute Comment: Patient is seen today, has persitant Diareah, started on Po vancomycin 25mg Po q6. 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 - Discharge Day Encounter end time: 09:30 Review of Systems - Review of Systems Other: Patient is intubated. - Medications/Allergies Allergies/Adverse Reactions: Allergies Allergy/AdvReac Type Severity Reaction Status Date / Time amoxicillin trihydrate Allergy Diarrhea Verified 06/28/15 03:10 [From Augmentin] ciprofloxacin [From Cipro] Allergy Rash Verified 06/28/15 03:10 clindamycin Allergy Verified 06/28/15 03:10 erythromycin lactobionate Allergy Verified 06/28/15 03:10 [From Erythrocin] Latex, Natural Rubber Allergy Rash Verified 06/28/15 03:10 metolazone [Metolazone] Allergy Verified 06/28/15 03:10 nalbuphine HCl [From Nubain] Allergy Verified 06/28/15 03:10 oxycodone HCl Allergy Rash Verified 06/28/15 03:10 [From OxyContin] potassium clavulanate Allergy Diarrhea Verified 06/28/15 03:10 [From Augmentin] Sulfa (Sulfonamide Allergy Rash Verified 06/28/15 03:10 Antibiotics) sulfamethoxazole Allergy Verified 06/28/15 03:10 [From Bactrim] trimethoprim [From Bactrim] Allergy Verified 06/28/15 03:10 zolpidem tartrate AdvReac Intermediate "crazy" Verified 06/28/15 03:10 [From Ambien] fentanyl [From Duragesic] AdvReac Mild Anxiety Verified 12/15/17 01:47 Medications: Current Medications Acetaminophen (Tylenol) 500 mg PO Q6H PRN PRN Reason: Headache/Fever or Pain Last Admin: 12/13/17 11:05 Dose: 500 mg Albuterol Sulfate (Ventolin) 2.5 mg NEB Q2H PRN PRN Reason: Wheezing Amlodipine Besylate (Norvasc) 10 mg PER TUBE DAILY [facility] Last Admin: 12/15/17 09:28 Dose: 10 mg Lipase/Protease/Amylase ([place] [id number]) 1 cap FS .PER PROTOCOL PRN PRN Reason: TUBE OCCLUSION PROTOCOL Enoxaparin Sodium (Lovenox) 40 mg SC 0900 [facility] Last Admin: 12/15/17 09:29 Dose: 40 mg Fluoxetine HCl (Prozac) 20 mg PER TUBE DAILY [facility] Last Admin: 12/15/17 09:30 Dose: 20 mg Ceftriaxone Sodium 2 gm/ (Sodium Chloride) 100 mls @ 200 mls/hr IVPB Q24HR [facility] Last Admin: 12/14/17 12:52 Dose: 100 mls Levofloxacin 750 mg/ Device 150 mls @ 100 mls/hr IVPB Q24HR [facility] Last Admin: 12/14/17 11:25 Dose: 150 mls Fentanyl Citrate 2,000 mcg/ (Sodium Chloride) 100 mls @ 0 mls/hr IV INF JERMA[facility]; Per Protocol PRN Reason: Protocol Stop: 01/12/18 16:31 Last Admin: 12/14/17 20:13 Dose: 100 mls Fentanyl Citrate (Fentanyl Bolus) 250 mls @ 0 mls/hr IVPB PRN PRN; As Directed PRN Reason: Breakthrough pain Stop: 01/12/18 16:31 Potassium Chloride 40 meq/ (Sodium Chloride) 270 mls @ 135 mls/hr IVPB ASDIR PRN PRN Reason: FOR SERUM K+ 2.5 - 3.5 Potassium Chloride 40 meq/ (Device) 100 mls @ 50 mls/hr IVPB ASDIR PRN PRN Reason: FOR SERUM K+ 2.5 - 3.5 Last Admin: 12/15/17 06:51 Dose: 100 mls Magnesium Sulfate 1 gm/ Sodium (Chloride) 102 mls @ 102 mls/hr IV PRN PRN PRN Reason: MAG LEVEL 1.4 - 2.0 Magnesium Sulfate 2 gm/ Device 100 mls @ 100 mls/hr IVPB ASDIR PRN PRN Reason: MAGNESIUM < 1.4 Potassium Phosphate 9 mmol/ (Sodium Chloride) 103 mls @ 25.75 mls/hr IVPB ASDIR PRN PRN Reason: Phosphate 1.0-1.8 Potassium Phosphate 12 mmol/ (Sodium Chloride) 254 mls @ 63.5 mls/hr IV ASDIR PRN PRN Reason: Serum phosphate 0.5-0.9 Potassium Phosphate 15 mmol/ (Sodium Chloride) 255 mls @ 63.75 mls/hr IV ASDIR PRN PRN Reason: Serum Phos < 0.5 Lactated Ringer's (Lactated Ringer's) 1,000 mls @ 70 mls/hr IV .[id number] [facility] Lorazepam (Ativan) 2 mg SLOW IVP Q2H PRN PRN Reason: Anxiety to achieve Riggs 2-3 Stop: 01/12/18 16:29 Last Admin: 12/14/17 21:01 Dose: 2 mg Magnesium Oxide (Magnesium Oxide) 400 mg PO BIDPRN PRN PRN Reason: FOR SERUM MAG 1.4 - 2.0 Magnesium Oxide (Magnesium Oxide) 800 mg PO PRN PRN PRN Reason: FOR SERUM MAG < 1.4 Metoclopramide HCl (Reglan) 10 mg IVP Q6H PRN PRN Reason: Nausea/Vomiting Metoprolol Tartrate (Lopressor) 25 mg PER TUBE BID [facility] Last Admin: 12/15/17 09:30 Dose: 25 mg Miscellaneous Medication (Phos-Nak) 1 pkt PO TIDPRN PRN PRN Reason: FOR PHOS LEVEL 1.0 - 1.8 Miscellaneous Medication (Phos-Nak) 2 pkt PO TIDPRN PRN PRN Reason: FOR PHOS LEVEL 0.5 - 1.0 Miscellaneous Medication (Pharmacy To Dose) 0 each IVPB PRN PRN PRN Reason: VANCOMYCIN Morphine Sulfate (Morphine Sulfate) 2 mg SLOW IVP Q2H PRN PRN Reason: Breakthrough pain Stop: 01/12/18 16:29 Pantoprazole Sodium (Protonix) 40 mg PER TUBE DAILY [facility] Potassium Chloride (K-Dur) 40 meq PO ASDIR PRN PRN Reason: FOR SERUM K+ 2.5 - 3.5 Potassium Chloride (Klor-Con) 40 meq PER TUBE ASDIR PRN PRN Reason: FOR SERUM K+ 2.5-3.5 Last Admin: 12/14/17 10:54 Dose: 40 meq Propofol (Diprivan) 1,000 mg IV INF PRN; Protocol PRN Reason: TO ACHIEVE RIGGS SCORE 2-3 Stop: 01/12/18 16:29 Last Admin: 12/15/17 06:26 Dose: 1,000 mg Sodium Bicarbonate (Bicarbonate, Sodium) 650 mg PER TUBE .PER PROTOCOL PRN PRN Reason: ENTERAL TUBE OCCLUSION Sodium Chloride (Flush - Normal Saline) 10 ml IVF Q12HR [facility] Last Admin: 12/15/17 09:31 Dose: 10 ml Sodium Chloride (Flush - Normal Saline) 10 ml IVF PRN PRN PRN Reason: Saline Flush Valsartan (Diovan) 320 mg PER TUBE DAILY [facility] Last Admin: 12/15/17 10:10 Dose: 320 mg Vancomycin HCl (First Vancomycin) 250 mg PO QID [facility] Last Admin: 12/15/17 09:31 Dose: 250 mg
[2017-12-15] MEDS: cefTRIAXone\\ROCEPHIN 2 GM in Sodium Chloride 0.9% 100 ML IVPB SCH (12:51)
[2017-12-15] MEDS ORDERED: Vancomycin HCl 1 GM in Premix Bag 1 BAG IVPB SCH (13:00)
[2017-12-15] MEDS: Vancomycin HCl 1.25 GM in Sodium Chloride 0.9% 250 ML 250 ML IVPB SCH (14:38)
[2017-12-15] MEDS: Lorazepam 2 MG/ML VIAL SLOW IVP PRN (22:52)
[2017-12-15] MEDS ORDERED: Furosemide 20 MG/2 ML VIAL SLOW IVP SCH (23:00)
[2017-12-15] MEDS ORDERED: Furosemide 40 MG/4 ML VIAL ONE (23:03)
--- NOTE | 2017-12-15 23:24 | RAD ---
CHEST ONE VIEW 12/15/17 HISTORY: ET tube placement. COMPARISON: Chest radiograph same day. FINDINGS: Patient is intubated with endotracheal tube tip above the level of the patricia approximately 2.6 cm. L ungs are hypoinflated. Small left effusion. Scattered atelectasis. Enteric tube tip gastric fundus. Right IJ central venous catheter tip projects laterally via subclavian vasculature. IMPRESSION: Endotracheal tube tip 2.6 cm craniad to the patricia. POS: [facility]
[2017-12-16] MEDS: Propofol 1,000 MG/100 ML VIAL IV PRN (04:15)
[2017-12-16 07:22] LABS: Actual Bicarbonate (HCO3a) 26.5 mEq/L (22-26); Base Excess (BEa) 1.8 mEq/L (0 (+/-) 2.5); CO2 Tension 41.7 mmHg (35.0-45.0); Hematocrit-ABG 35.6 % (36.0-47.0); Hemoglobin (Hb) 11.6 g/dL (12.0-16.0); O2 Tension (PaO2) 85.1 mmHg (80.0-100.0); pH, Arterial 7.42 (7.35-7.45)
[2017-12-16 07:23] LABS: ALV-art Gradient 76.675 (0-20); Calcium, Ionized 1.2 mmol/L (1.12-1.30); Puncture Site RBA
[2017-12-16] MEDS ORDERED: DC Sedation Protocol FS ONE (07:50)
[2017-12-16 07:55] LABS: #Eosinphils 0.5 thou/uL (0.0-0.7); #Lymphocytes 1.9 thou/uL (1.20-3.40); #Neutrophils 7.8 thou/uL (1.40-6.50); %Basophils 0.4 % (0.0-1.0); %Lymphocytes 17.1 % (21.0-51.0); %Monocytes 9.1 % (0.0-10.0); %Neutrophils 69.4 % (42.0-75.0); Hemoglobin 11.4 g/dL (12.0-16.0); Mean Corpuscular HGB CONC 32.1 g/dL (32.0-36.0); Mean Corpuscular Volume 93.4 fl (81.0-99.0); Mean Platelet Volume 7.7 fL (7.4-10.4); Platelet Count 275 thou/uL (130-400); RBC Distribution Width 12.5 % (11.5-14.5); White Blood Cell (WBC) Count 11.2 thou/uL (4.8-10.8)
--- NOTE | 2017-12-16 08:02 | PRG ---
DATE OF SERVICE: 12/16/2017 Thirty-five minutes critical care time. The patient remains intubated on mechanical ventilation. She had an episode of what sounds to be neg ative pressure pulmonary edema last night. From the nurses description she coughed the ET tube back and then developed some frothy secretions. I think the ET tube was likely above the cords at some po int, this resolved with Lasix and replacing the endotracheal tube. The patient is awake and alert this morning and is able to follow commands. PHYSICAL EXAMINATION: VITAL SIGNS: Temperature is 98.5, pulse 67, blood pressure 111/51. 24 hour intake 978, output 1875. HEENT: Unremarkable. NECK: No JVD. LUNGS: Clear anteriorly. CARDIOVASCULAR: S1, S2 regular. ABDOMEN: Soft. Bowel sounds hyperactive. EXTREMITIES: No edema. LABORATORY DATA: Sodium 140, potassium 3.2, chloride 105, CO2 27, BUN 14, creatinine 0.8, glucose 13 3, AST 78, ALT 115. Lactate is down to 1.3, albumin 3.0. PH 7.42, pCO2 41, pO2 85 on SIMV rate 6, t idal 450, PEEP 8, pressure 10, FiO2 30%. White blood cell count 13.5, hematocrit 34.6, platelet coun t 247. ASSESSMENT: 1. Clostridium difficile colitis. 2. Sepsis syndrome, which is improved. 3. Acute respiratory failure requiring mechanical ventilation - doing well with weaning. 4. Aspiration pneumonitis. PLAN: The patient will undergo weaning trial and I expect extubation later this morning. We are con tinuing the IV antibiotics and the oral vancomycin. She is on enoxaparin for DVT prophylaxis and barriga toprazole for GI prophylaxis. The family was updated the patient's condition yesterday afternoon.
[2017-12-16 08:10] LABS: ALT (SGPT) 70 U/L (8-55); AST (SGOT) 29 U/L (5-34); Albumin 3.1 g/dL (3.4-4.8); Alkaline Phosphatase 105 U/L (40-150); Anion Gap 11 mmol/L (10-20); BUN (Urea Nitrogen) 11 mg/dL (9.8-20.1); Bilirubin, Total 0.2 mg/dL (0.2-1.2); Calc. Creatinine Clearance 78 mL/min (70-130); Calcium 8.7 mg/dL (7.8-10.44); Carbon Dioxide 28 mmol/L (23-31); Chloride 102 mmol/L (98-107); Estimated GFR-MDRD 63; Globulin 2.9 g/dL (2.4-3.5); Glucose 117 mg/dL (83-110); Potassium 3.3 mmol/L (3.5-5.1); Sodium 138 mmol/L (136-145)
[2017-12-16] MEDS: FLUoxetine HCl 20 MG CAP PER TUBE SCH (09:00)
[2017-12-16] MEDS: Amlodipine 10 MG TAB PER TUBE SCH (09:00)
[2017-12-16] MEDS: Vancomycin HCl 25 MG/ML Oral PO SCH ×4 (09:00→20:52)
[2017-12-16] MEDS: Metoprolol Tartrate 25 MG TAB PER TUBE SCH ×2 (09:00→20:52)
[2017-12-16] MEDS: Valsartan 80 MG TAB PER TUBE SCH (09:00)
[2017-12-16] MEDS: Pantoprazole 40 MG GRANULES PACKET PER TUBE SCH (09:00)
--- NOTE | 2017-12-16 09:27 | RAD ---
ONE VIEW CHEST: HISTORY: Respiratory distress. Ventilated patient. COMPARISON: 12/15/2017 FINDINGS: The endotracheal tube extends beyond the clavicles. The nasogastric tube extends below the diaphragm . The distal tip is difficult to appreciate but appears to be in the left upper quadrant. There is a coiled catheter projecting over the right neck, with the distal tip in the lateral orientation. Ca theter position is unchanged. There are stable pleural and parenchymal changes in the lung bases. S table configuration of the cardiac silhouette. Atherosclerosis is noted. No pneumothorax. IMPRESSION: Lines and tubes as above. Presumed right-sided internal jugular central venous catheter with the dis jordana tip likely in the right subclavian vein. This catheter is unchanged in position. POS: [facility]
[2017-12-16] MEDS: Enoxaparin Sodium 40 MG/0.4 ML SYRINGE SC SCH (10:41)
[2017-12-16] MEDS: cefTRIAXone\\ROCEPHIN 2 GM in Sodium Chloride 0.9% 100 ML IVPB SCH (11:46)
[2017-12-16] MEDS: Ondansetron HCl/PF 4 MG/2 ML Vial SLOW IVP PRN (13:19)
[2017-12-16] MEDS: Vancomycin HCl 1.25 GM in Sodium Chloride 0.9% 250 ML 250 ML IVPB SCH (13:28)
--- NOTE | 2017-12-16 16:54 | PDOC.PN ---
- Subjective Encounter Start Date: 12/16/17 Encounter Start Time: 07:00 -: non-verbal Remains intubated. - Objective MAR Reviewed: Yes Vital Signs & Weight: Vital Signs (12 hours) Temp Pulse Resp BP Pulse Ox 12/16/17 12:00 98.1 F 12/16/17 09:00 100 12/16/17 08:06 100 20 94 L 12/16/17 08:00 98.4 F 12 12/16/17 06:56 64 155/71 H 12/16/17 06:00 11 L Weight Admit Weight 202 lb Weight 202 lb 3 oz Most Recent Monitor Data Heart Rate from ECG 107 NIBP 179/96 NIBP BP-Mean 117 Respiration from ECG 18 SpO2 97 I&O: 12/15/17 12/16/17 12/17/17 06:59 06:59 06:59 Intake Total 5502 1881 9.9 Output Total 3025 2750 2215 Balance 2477 -869 -2205.1 Result Diagrams: 12/16/17 07:43 12/16/17 07:43 Radiology Reviewed by me: Yes Phys Exam - Physical Examination Neck: no nodes, no JVD Respiratory: no rales, wheezing present Cardiovascular: RRR, no significant murmur Gastrointestinal: soft, non-tender Musculoskeletal: no edema, pulses present Lymphatic: no nodes Skin: no rash, normal turgor Dx/Plan (1) Acute respiratory failure with hypoxia Code(s): J96.01 - ACUTE RESPIRATORY FAILURE WITH HYPOXIA Status: Acute Comment: PT is intubated and Sedated, [facility],. (2) Afib Code(s): I48.91 - UNSPECIFIED ATRIAL FIBRILLATION Status: Acute Qualifiers: Atrial fibrillation type: chronic Qualified Code(s): I48.2 - Chronic atrial fibrillation Comment: no anticoagulation due to hx of bleeding, ASA 81mg daily (3) Pneumonia Code(s): J18.9 - PNEUMONIA, UNSPECIFIED ORGANISM Status: Acute Qualifiers: Laterality: bilateral Comment: Worseing Infiltatrtes both lungs, Will continue with IV rocephin/ Vancomycin/ levofloxacin. Coninue with mechanical ventilation per Dr. Farrell. (4) COPD (chronic obstructive pulmonary disease) Status: Chronic Comment: Continue general pulm support with Mech Vent (5) Hypertension Code(s): I10 - ESSENTIAL (PRIMARY) HYPERTENSION Status: Chronic Qualifiers: Comment: Poorly controlled Will continue with PRN Hydralzine now. keep Systolic < 130 (6) Hypothyroidism Code(s): E03.9 - HYPOTHYROIDISM, UNSPECIFIED Status: Chronic Qualifiers: (7) Obesity (BMI 30-39.9) Code(s): E66.9 - OBESITY, UNSPECIFIED Status: Chronic (8) Clostridium difficile diarrhea Code(s): A04.72 - ENTEROCOLITIS D/T CLOSTRIDIUM DIFFICILE, NOT SPCF RECUR Status: Acute Comment: Patient is seen today, has persitant Diareah, started on Po vancomycin 25mg Po q6. 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 - Discharge Day Encounter end time: 07:30 Review of Systems - Review of Systems Other: Intubated, No ROS done. - Medications/Allergies Allergies/Adverse Reactions: Allergies Allergy/AdvReac Type Severity Reaction Status Date / Time amoxicillin trihydrate Allergy Diarrhea Verified 06/28/15 03:10 [From Augmentin] ciprofloxacin [From Cipro] Allergy Rash Verified 06/28/15 03:10 clindamycin Allergy Verified 06/28/15 03:10 erythromycin lactobionate Allergy Verified 06/28/15 03:10 [From Erythrocin] Latex, Natural Rubber Allergy Rash Verified 06/28/15 03:10 metolazone [Metolazone] Allergy Verified 06/28/15 03:10 nalbuphine HCl [From Nubain] Allergy Verified 06/28/15 03:10 oxycodone HCl Allergy Rash Verified 06/28/15 03:10 [From OxyContin] potassium clavulanate Allergy Diarrhea Verified 06/28/15 03:10 [From Augmentin] Sulfa (Sulfonamide Allergy Rash Verified 06/28/15 03:10 Antibiotics) sulfamethoxazole Allergy Verified 06/28/15 03:10 [From Bactrim] trimethoprim [From Bactrim] Allergy Verified 06/28/15 03:10 zolpidem tartrate AdvReac Intermediate "crazy" Verified 06/28/15 03:10 [From Ambien] fentanyl [From Duragesic] AdvReac Mild Anxiety Verified 12/15/17 01:47 Medications: Current Medications Acetaminophen (Tylenol) 500 mg PO Q6H PRN PRN Reason: Headache/Fever or Pain Last Admin: 12/13/17 11:05 Dose: 500 mg Albuterol Sulfate (Ventolin) 2.5 mg NEB Q2H PRN PRN Reason: Wheezing Amlodipine Besylate (Norvasc) 10 mg PER TUBE DAILY [facility] Last Admin: 12/16/17 09:00 Dose: Not Given Lipase/Protease/Amylase (Angelica Roy [id number]) 1 cap FS .PER PROTOCOL PRN PRN Reason: TUBE OCCLUSION PROTOCOL Enoxaparin Sodium (Lovenox) 40 mg SC 09 [facility] Last Admin: 12/16/17 10:41 Dose: 40 mg Fluoxetine HCl (Prozac) 20 mg PER TUBE DAILY [facility] Last Admin: 12/16/17 09:00 Dose: Not Given Ceftriaxone Sodium 2 gm/ (Sodium Chloride) 100 mls @ 200 mls/hr IVPB Q24HR [facility] Last Admin: 12/16/17 11:46 Dose: 100 mls Levofloxacin 750 mg/ Device 150 mls @ 100 mls/hr IVPB Q24HR [facility] Last Admin: 12/16/17 11:40 Dose: 150 mls Potassium Chloride 40 meq/ (Sodium Chloride) 270 mls @ 135 mls/hr IVPB ASDIR PRN PRN Reason: FOR SERUM K+ 2.5 - 3.5 Potassium Chloride 40 meq/ (Device) 100 mls @ 50 mls/hr IVPB ASDIR PRN PRN Reason: FOR SERUM K+ 2.5 - 3.5 Last Admin: 12/15/17 06:51 Dose: 100 mls Magnesium Sulfate 1 gm/ Sodium (Chloride) 102 mls @ 102 mls/hr IV PRN PRN PRN Reason: MAG LEVEL 1.4 - 2.0 Magnesium Sulfate 2 gm/ Device 100 mls @ 100 mls/hr IVPB ASDIR PRN PRN Reason: MAGNESIUM < 1.4 Potassium Phosphate 9 mmol/ (Sodium Chloride) 103 mls @ 25.75 mls/hr IVPB ASDIR PRN PRN Reason: Phosphate 1.0-1.8 Potassium Phosphate 12 mmol/ (Sodium Chloride) 254 mls @ 63.5 mls/hr IV ASDIR PRN PRN Reason: Serum phosphate 0.5-0.9 Potassium Phosphate 15 mmol/ (Sodium Chloride) 255 mls @ 63.75 mls/hr IV ASDIR PRN PRN Reason: Serum Phos < 0.5 Lactated Ringer's (Lactated Ringer's) 1,000 mls @ 0 mls/hr IV .Q0M JERMAINE PRN Reason: KVO Last Admin: 12/15/17 18:25 Dose: 1,000 mls Vancomycin HCl 1.25 gm/ Sodium (Chloride) 250 mls @ 166.667 mls/hr IVPB 1400 [facility] Last Admin: 12/16/17 13:28 Dose: 250 mls Magnesium Oxide (Magnesium Oxide) 400 mg PO BIDPRN PRN PRN Reason: FOR SERUM MAG 1.4 - 2.0 Magnesium Oxide (Magnesium Oxide) 800 mg PO PRN PRN PRN Reason: FOR SERUM MAG < 1.4 Metoclopramide HCl (Reglan) 10 mg IVP Q6H PRN PRN Reason: Nausea/Vomiting Last Admin: 12/16/17 16:13 Dose: 10 mg Metoprolol Tartrate (Lopressor) 25 mg PER TUBE BID [facility] Last Admin: 12/16/17 09:00 Dose: Not Given Miscellaneous Medication (Phos-Nak) 1 pkt PO TIDPRN PRN PRN Reason: FOR PHOS LEVEL 1.0 - 1.8 Miscellaneous Medication (Phos-Nak) 2 pkt PO TIDPRN PRN PRN Reason: FOR PHOS LEVEL 0.5 - 1.0 Miscellaneous Medication (Pharmacy To Dose) 0 each IVPB PRN PRN PRN Reason: VANCOMYCIN Morphine Sulfate (Morphine Sulfate) 4 mg SLOW IVP Q2H PRN PRN Reason: Pain Last Admin: 12/16/17 15:54 Dose: 4 mg Ondansetron HCl (Zofran) 4 mg SLOW IVP Q6H PRN PRN Reason: Nausea/Vomiting Last Admin: 12/16/17 13:19 Dose: 4 mg Pantoprazole Sodium (Protonix) 40 mg PER TUBE DAILY [facility] Last Admin: 12/16/17 09:00 Dose: Not Given Potassium Chloride (K-Dur) 40 meq PO ASDIR PRN PRN Reason: FOR SERUM K+ 2.5 - 3.5 Potassium Chloride (Klor-Con) 40 meq PER TUBE ASDIR PRN PRN Reason: FOR SERUM K+ 2.5-3.5 Last Admin: 12/14/17 10:54 Dose: 40 meq Sodium Bicarbonate (Bicarbonate, Sodium) 650 mg PER TUBE .PER PROTOCOL PRN PRN Reason: ENTERAL TUBE OCCLUSION Sodium Chloride (Flush - Normal Saline) 10 ml IVF Q12HR JERMAINE Last Admin: 12/16/17 10:41 Dose: 10 ml Sodium Chloride (Flush - Normal Saline) 10 ml IVF PRN PRN PRN Reason: Saline Flush Valsartan (Diovan) 320 mg PER TUBE DAILY [facility] Last Admin: 12/16/17 09:00 Dose: Not Given Vancomycin HCl (First Vancomycin) 250 mg PO QID JERMAINE Last Admin: 12/16/17 13:28 Dose: Not Given
[2017-12-17 05:12] LABS: #Eosinphils 0.2 thou/uL (0.0-0.7); #Lymphocytes 1.6 thou/uL (1.20-3.40); %Basophils 0.2 % (0.0-1.0); %Eosinophils 1.8 % (0.0-10.0); %Lymphocytes 13.3 % (21.0-51.0); %Monocytes 8.4 % (0.0-10.0); %Neutrophils 76.3 % (42.0-75.0); Hemoglobin 11.7 g/dL (12.0-16.0); Mean Corpuscular HGB CONC 33.8 g/dL (32.0-36.0); Mean Corpuscular Hemoglobin 30.3 pg (27.0-31.0); Mean Corpuscular Volume 89.8 fl (81.0-99.0); Mean Platelet Volume 7.5 fL (7.4-10.4); Platelet Count 262 thou/uL (130-400); RBC Distribution Width 12.1 % (11.5-14.5); Red Blood Cell (RBC) Count 3.86 mill/uL (4.20-5.40); White Blood Cell (WBC) Count 11.8 thou/uL (4.8-10.8)
[2017-12-17 05:14] LABS: ALT (SGPT) 57 U/L (8-55); AST (SGOT) 36 U/L (5-34); Albumin 3.1 g/dL (3.4-4.8); Alkaline Phosphatase 130 U/L (40-150); Anion Gap 15 mmol/L (10-20); BUN (Urea Nitrogen) 8 mg/dL (9.8-20.1); Bilirubin, Total 0.3 mg/dL (0.2-1.2); Calc. Creatinine Clearance 92 mL/min (70-130); Calcium 8.6 mg/dL (7.8-10.44); Carbon Dioxide 28 mmol/L (23-31); Chloride 97 mmol/L (98-107); Estimated GFR-MDRD 76; Glucose 113 mg/dL (83-110); Protein, Total 6.1 g/dL (6.0-8.3); Sodium 137 mmol/L (136-145)
[2017-12-17 05:16] LABS: Potassium 2.8 mmol/L (3.5-5.1)
[2017-12-17] MEDS: Potassium Chloride 40 MEQ in Premix Bag 1 BAG IVPB PRN ×2 (05:23→10:00)
[2017-12-17 07:01] LABS: Magnesium 1.4 mg/dL (1.6-2.6); Phosphorus 3.3 mg/dL (2.3-4.7)
[2017-12-17] MEDS: Enoxaparin Sodium 40 MG/0.4 ML SYRINGE SC SCH (08:30)
[2017-12-17 09:35] LABS: Potassium 3.5 mmol/L (3.5-5.1)
--- NOTE | 2017-12-17 10:26 | RAD ---
PORTABLE CHEST: Date: 12/17/17 HISTORY: Respiratory distress. COMPARISON: 12/16/17 study. FINDINGS: Heart size is enlarged. Endotracheal and NG tubes have been removed. There is worsening bibasilar ple ural and parenchymal lung changes as compared to the prior examination. There is a right-sided cathet er. The tip of the catheter is coiled overlying the right neck region. This is unchanged since the pr ior exam. IMPRESSION: Worsening pleural and parenchymal lung changes in both lung bases. POS: C
[2017-12-17] MEDS: Pantoprazole 40 MG GRANULES PACKET PER TUBE SCH (10:53)
[2017-12-17] MEDS: FLUoxetine HCl 20 MG CAP PER TUBE SCH (10:53)
[2017-12-17] MEDS: Amlodipine 10 MG TAB PER TUBE SCH (10:53)
[2017-12-17] MEDS: Metoprolol Tartrate 25 MG TAB PER TUBE SCH ×2 (10:53→20:32)
[2017-12-17] MEDS: Valsartan 80 MG TAB PER TUBE SCH (10:54)
[2017-12-17] MEDS: Vancomycin HCl 25 MG/ML Oral PO SCH ×4 (11:13→20:32)
[2017-12-17] MEDS: cefTRIAXone\\ROCEPHIN 2 GM in Sodium Chloride 0.9% 100 ML IVPB SCH (11:16)
[2017-12-17] MEDS: Ondansetron HCl/PF 4 MG/2 ML Vial SLOW IVP PRN ×2 (11:54→18:11)
[2017-12-17 13:49] LABS: Vancomycin, Trough 12.1 ug/mL
[2017-12-17] MEDS: Vancomycin HCl 1.75 GM in Sodium Chloride 0.9% 500 ML IVPB SCH (14:20)
--- NOTE | 2017-12-17 14:46 | PRG ---
DATE OF SERVICE: 12/17/2017 SUBJECTIVE: Ms. Santizo in no distress. She is cooperative with the nurses. Chest radiographs reviewed today. She still has bibasilar infiltrates. OBJECTIVE: VITAL SIGNS: She is afebrile, heart rate is in the 70s, blood pressure is 165/ 67 and respiratory rate is 18. LUNGS: Remarkable for distant breath sounds at her bases. HEART: Regular rhythm. ABDOMEN: Soft and nontender. LABORATORY DATA: White count is 11.8, hemoglobin is 11.7 and platelets 262. Sodium 137; potassium 2.8 earlier, 3.5 now; chloride 97; bicarbonate 28; BUN 8 and creatinine 0.74. IMPRESSION: 1. Clostridium difficile colitis. 2. Aspiration pneumonitis. 3. ?Component of noncardiogenic pulmonary edema with low oncotic pressure. Her albumin is 3 on one study and 3.1 today. 4. Mildly elevated liver enzymes that are stable. PLAN: I met with the daughter and answered all the questions. I have suggested we keep her in the unit one more night. JAROD
--- NOTE | 2017-12-17 15:42 | PDOC.PN ---
- Subjective Encounter Start Date: 12/17/17 Encounter Start Time: 14:30 Patient is seen today, alert and oriented. She remains very weak , diarrhea is improved still watery. has Rectal tube - Objective MAR Reviewed: Yes Vital Signs & Weight: Vital Signs (12 hours) Temp Pulse Resp BP Pulse Ox 12/17/17 12:00 98.7 F 12/17/17 10:53 102 H 169/90 H 12/17/17 08:00 98.7 F 99 16 95 12/17/17 07:15 97 12/17/17 07:00 98.0 F 12/17/17 04:00 98.3 F Weight Admit Weight 202 lb Weight 202 lb 3 oz Most Recent Monitor Data Heart Rate from ECG 92 NIBP 169/87 NIBP BP-Mean 114 Respiration from ECG 19 SpO2 99 I&O: 12/16/17 12/17/17 12/18/17 06:59 06:59 07:59 Intake Total 1881 865.9 145 Output Total 2750 4340 875 [facility] -869 -3474.1 -730 Result Diagrams: 12/17/17 04:44 12/17/17 09:00 Additional Labs: Accuchecks 12/17/17 09:09 POC Glucose 104 Radiology Reviewed by me: Yes Phys Exam - Physical Examination HEENT: PERRLA, moist MMs Neck: no nodes, no JVD Respiratory: no rales, wheezing present Cardiovascular: RRR, no significant murmur Gastrointestinal: soft, non-tender Musculoskeletal: no edema, pulses present Neurological: non-focal Lymphatic: no nodes Skin: no rash, normal turgor Dx/Plan (1) Acute respiratory failure with hypoxia Code(s): J96.01 - ACUTE RESPIRATORY FAILURE WITH HYPOXIA Status: Acute Comment: PT is Extubated, Doing good today, She remains Weak. Pt is on nasal canula, Speech therapy following. Dr. robles plans to keep her in ICU today, [facility] monitor. (2) Afib Code(s): I48.91 - UNSPECIFIED ATRIAL FIBRILLATION Status: Acute Qualifiers: Atrial fibrillation type: chronic Qualified Code(s): I48.2 - Chronic atrial fibrillation Comment: no anticoagulation due to hx of bleeding, ASA 81mg daily (3) Pneumonia Code(s): J18.9 - PNEUMONIA, UNSPECIFIED ORGANISM Status: Acute Qualifiers: Laterality: bilateral Comment: Persistant Infiltatrtes both lungs, Will continue with IV rocephin/ Vancomycin/ levofloxacin. Continue nebs. (4) COPD (chronic obstructive pulmonary disease) Status: Chronic Comment: Continue general pulm support , pt is stbale, Pt is Also on IV seroids. (5) Hypertension Code(s): I10 - ESSENTIAL (PRIMARY) HYPERTENSION Status: Chronic Qualifiers: Comment: Poorly controlled Will continue with PRN Hydralzine now. keep Systolic < 130 (6) Hypothyroidism Code(s): E03.9 - HYPOTHYROIDISM, UNSPECIFIED Status: Chronic Qualifiers: (7) Obesity (BMI 30-39.9) Code(s): E66.9 - OBESITY, UNSPECIFIED Status: Chronic (8) Clostridium difficile diarrhea Code(s): A04.72 - ENTEROCOLITIS D/T CLOSTRIDIUM DIFFICILE, NOT SPCF RECUR Status: Acute Comment: Patient is seen today, has persitant Diareah, started on Po vancomycin 25mg Po q6. 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 - Discharge Day Encounter end time: 15:05 Review of Systems - Review of Systems Constitutional: negative: fever, chills, sweats, weakness, malaise, other Eyes: negative: Pain, Vision Change, Conjunctivae Inflammation, Eyelid Inflammation, Redness, Other ENT: negative: Ear Pain, Ear Discharge, Nose Pain, Nose Discharge, Nose Congestion, Mouth Pain, Mouth Swelling, Throat Pain, Throat Swelling, Other Respiratory: negative: Cough, Dry, Shortness of Breath, Hemoptysis, SOB with Excertion, Pleuritic Pain, Sputum, Wheezing Cardiovascular: negative: chest pain, palpitations, orthopnea, paroxysmal nocturnal dyspnea, edema, light headedness, other Gastrointestinal: negative: Nausea, Vomiting, Abdominal Pain, Diarrhea, Constipation, Melena, Hematochezia, Other Musculoskeletal: negative: Neck Pain, Shoulder Pain, Arm Pain, Back Pain, Hand Pain, Leg Pain, Foot Pain, Other Skin: negative: Rash, Lesions, Suleman, Bruising, Other - Medications/Allergies Allergies/Adverse Reactions: Allergies Allergy/AdvReac Type Severity Reaction Status Date / Time amoxicillin trihydrate Allergy Diarrhea Verified 06/28/15 03:10 [From Augmentin] ciprofloxacin [From Cipro] Allergy Rash Verified 06/28/15 03:10 clindamycin Allergy Verified 06/28/15 03:10 erythromycin lactobionate Allergy Verified 06/28/15 03:10 [From Erythrocin] Latex, Natural Rubber Allergy Rash Verified 06/28/15 03:10 metolazone [Metolazone] Allergy Verified 06/28/15 03:10 nalbuphine HCl [From Nubain] Allergy Verified 06/28/15 03:10 oxycodone HCl Allergy Rash Verified 06/28/15 03:10 [From OxyContin] potassium clavulanate Allergy Diarrhea Verified 06/28/15 03:10 [From Augmentin] Sulfa (Sulfonamide Allergy Rash Verified 06/28/15 03:10 Antibiotics) sulfamethoxazole Allergy Verified 06/28/15 03:10 [From Bactrim] trimethoprim [From Bactrim] Allergy Verified 06/28/15 03:10 zolpidem tartrate AdvReac Intermediate "crazy" Verified 06/28/15 03:10 [From Ambien] fentanyl [From Duragesic] AdvReac Mild Anxiety Verified 12/15/17 01:47 Medications: Current Medications Acetaminophen (Tylenol) 500 mg PO Q6H PRN PRN Reason: Headache/Fever or Pain Last Admin: 12/13/17 11:05 Dose: 500 mg Albuterol Sulfate (Ventolin) 2.5 mg NEB Q2H PRN PRN Reason: Wheezing Amlodipine Besylate (Norvasc) 10 mg PER TUBE DAILY [facility] Last Admin: 12/17/17 10:53 Dose: 10 mg Lipase/Protease/Amylase ([place] [id number]) 1 cap FS .PER PROTOCOL PRN PRN Reason: TUBE OCCLUSION PROTOCOL Enoxaparin Sodium (Lovenox) 40 mg SC 0900 [facility] Last Admin: 12/17/17 08:30 Dose: 40 mg Fluoxetine HCl (Prozac) 20 mg PER TUBE DAILY [facility] Last Admin: 12/17/17 10:53 Dose: 20 mg Ceftriaxone Sodium 2 gm/ (Sodium Chloride) 100 mls @ 200 mls/hr IVPB Q24HR [facility] Last Admin: 12/17/17 11:16 Dose: 100 mls Levofloxacin 750 mg/ Device 150 mls @ 100 mls/hr IVPB Q24HR [facility] Last Admin: 12/17/17 10:00 Dose: 150 mls Potassium Chloride 40 meq/ (Sodium Chloride) 270 mls @ 135 mls/hr IVPB ASDIR PRN PRN Reason: FOR SERUM K+ 2.5 - 3.5 Potassium Chloride 40 meq/ (Device) 100 mls @ 50 mls/hr IVPB ASDIR PRN PRN Reason: FOR SERUM K+ 2.5 - 3.5 Last Admin: 12/17/17 10:00 Dose: 100 mls Magnesium Sulfate 1 gm/ Sodium (Chloride) 102 mls @ 102 mls/hr IV PRN PRN PRN Reason: MAG LEVEL 1.4 - 2.0 Last Admin: 12/17/17 08:40 Dose: 102 mls Magnesium Sulfate 2 gm/ Device 100 mls @ 100 mls/hr IVPB ASDIR PRN PRN Reason: MAGNESIUM < 1.4 Potassium Phosphate 9 mmol/ (Sodium Chloride) 103 mls @ 25.75 mls/hr IVPB ASDIR PRN PRN Reason: Phosphate 1.0-1.8 Potassium Phosphate 12 mmol/ (Sodium Chloride) 254 mls @ 63.5 mls/hr IV ASDIR PRN PRN Reason: Serum phosphate 0.5-0.9 Potassium Phosphate 15 mmol/ (Sodium Chloride) 255 mls @ 63.75 mls/hr IV ASDIR PRN PRN Reason: Serum Phos < 0.5 Lactated Ringer's (Lactated Ringer's) 1,000 mls @ 0 mls/hr IV .Q0M JERMAINE PRN Reason: KVO Last Admin: 12/15/17 18:25 Dose: 1,000 mls Vancomycin HCl 1.75 gm/ Sodium (Chloride) 500 mls @ 250 mls/hr IVPB 1400 JERMAINE Last Admin: 12/17/17 14:20 Dose: 500 mls Magnesium Oxide (Magnesium Oxide) 400 mg PO BIDPRN PRN PRN Reason: FOR SERUM MAG 1.4 - 2.0 Magnesium Oxide (Magnesium Oxide) 800 mg PO PRN PRN PRN Reason: FOR SERUM MAG < 1.4 Metoclopramide HCl (Reglan) 10 mg IVP Q6H PRN PRN Reason: Nausea/Vomiting Last Admin: 12/16/17 16:13 Dose: 10 mg Metoprolol Tartrate (Lopressor) 25 mg PER TUBE BID [facility] Last Admin: 12/17/17 10:53 Dose: 25 mg Miscellaneous Medication (Phos-Nak) 1 pkt PO TIDPRN PRN PRN Reason: FOR PHOS LEVEL 1.0 - 1.8 Miscellaneous Medication (Phos-Nak) 2 pkt PO TIDPRN PRN PRN Reason: FOR PHOS LEVEL 0.5 - 1.0 Miscellaneous Medication (Pharmacy To Dose) 0 each IVPB PRN PRN PRN Reason: VANCOMYCIN Morphine Sulfate (Morphine Sulfate) 4 mg SLOW IVP Q2H PRN PRN Reason: Pain Last Admin: 12/17/17 14:54 Dose: 4 mg Ondansetron HCl (Zofran) 4 mg SLOW IVP Q6H PRN PRN Reason: Nausea/Vomiting Last Admin: 12/17/17 11:54 Dose: 4 mg Pantoprazole Sodium (Protonix) 40 mg PER TUBE DAILY [facility] Last Admin: 12/17/17 10:53 Dose: 40 mg Potassium Chloride (K-Dur) 40 meq PO ASDIR PRN PRN Reason: FOR SERUM K+ 2.5 - 3.5 Potassium Chloride (Klor-Con) 40 meq PER TUBE ASDIR PRN PRN Reason: FOR SERUM K+ 2.5-3.5 Last Admin: 12/14/17 10:54 Dose: 40 meq Sodium Bicarbonate (Bicarbonate, Sodium) 650 mg PER TUBE .PER PROTOCOL PRN PRN Reason: ENTERAL TUBE OCCLUSION Sodium Chloride (Flush - Normal Saline) 10 ml IVF Q12HR [facility] Last Admin: 12/17/17 08:50 Dose: 10 ml Sodium Chloride (Flush - Normal Saline) 10 ml IVF PRN PRN PRN Reason: Saline Flush Valsartan (Diovan) 320 mg PER TUBE DAILY [facility] Last Admin: 12/17/17 10:54 Dose: 320 mg Vancomycin HCl (First Vancomycin) 250 mg PO QID [facility] Last Admin: 12/17/17 14:19 Dose: Not Given
[2017-12-18 04:35] LABS: ALT (SGPT) 45 U/L (8-55); AST (SGOT) 29 U/L (5-34); Albumin 3.2 g/dL (3.4-4.8); Alkaline Phosphatase 126 U/L (40-150); Anion Gap 14 mmol/L (10-20); BUN (Urea Nitrogen) 10 mg/dL (9.8-20.1); Bilirubin, Total 0.3 mg/dL (0.2-1.2); Calc. Creatinine Clearance 91 mL/min (70-130); Carbon Dioxide 27 mmol/L (23-31); Chloride 99 mmol/L (98-107); Estimated GFR-MDRD 75; Globulin 3.1 g/dL (2.4-3.5); Glucose 111 mg/dL (83-110); Potassium 3.2 mmol/L (3.5-5.1); Protein, Total 6.3 g/dL (6.0-8.3); Sodium 137 mmol/L (136-145)
[2017-12-18 05:26] LABS: Band 11 % (5-11); Eosinophils 3 % (0-10); Hemoglobin 12.3 g/dL (12.0-16.0); Lymphocytes 16 % (21-51); MDiff Complete? YES; Mean Corpuscular HGB CONC 33.6 g/dL (32.0-36.0); Mean Corpuscular Hemoglobin 29.9 pg (27.0-31.0); Mean Corpuscular Volume 88.9 fl (81.0-99.0); Metamyelocyte 2 % (0-0); Monocytes 8 % (0-10); Neutrophil 59 % (42-75); PLT Morphology Comment Appears Adequate; Platelet Count 282 thou/uL (130-400); RBC Distribution Width 12.2 % (11.5-14.5); RBC Morphology Normal; Reactive Lymphocytes 1 % (0-10); Red Blood Cell (RBC) Count 4.11 mill/uL (4.20-5.40); White Blood Cell (WBC) Count 17.4 thou/uL (4.8-10.8)
[2017-12-18] MEDS: Potassium Chloride 40 MEQ in Premix Bag 1 BAG IVPB PRN ×2 (06:08→10:44)
[2017-12-18] MEDS: FLUoxetine HCl 20 MG CAP PER TUBE SCH (08:17)
[2017-12-18] MEDS: Valsartan 80 MG TAB PER TUBE SCH (08:17)
[2017-12-18] MEDS: Pantoprazole 40 MG GRANULES PACKET PER TUBE SCH (08:18)
[2017-12-18] MEDS: Amlodipine 10 MG TAB PER TUBE SCH (08:18)
[2017-12-18] MEDS: Metoprolol Tartrate 25 MG TAB PER TUBE SCH ×2 (08:18→20:35)
[2017-12-18] MEDS: Vancomycin HCl 25 MG/ML Oral PO SCH ×4 (08:18→20:35)
[2017-12-18] MEDS: Enoxaparin Sodium 40 MG/0.4 ML SYRINGE SC SCH (08:18)
--- NOTE | 2017-12-18 08:33 | RAD ---
PORTABLE CHEST: Date: 12/18/17 PROVIDED CLINICAL HISTORY: Respiratory insufficiency. FINDINGS: Comparison with 12/17/17. Significant interval change with respect to the prior examination is not apparent. IMPRESSION: As above. POS: SONIDO
[2017-12-18] MEDS: Ondansetron HCl/PF 4 MG/2 ML Vial SLOW IVP PRN (09:58)
[2017-12-18] MEDS: cefTRIAXone\\ROCEPHIN 2 GM in Sodium Chloride 0.9% 100 ML IVPB SCH (11:05)
[2017-12-18] MEDS ORDERED: Lisinopril 5 MG TAB PO SCH (11:45)
[2017-12-18] MEDS: Vancomycin HCl 1.75 GM in Sodium Chloride 0.9% 500 ML IVPB SCH (13:30)
--- NOTE | 2017-12-18 15:19 | PDOC.PN ---
- Subjective Encounter Start Date: 12/18/17 Encounter Start Time: 09:00 Patient seen today, remains Weak. elevated WBC noted. - Objective MAR Reviewed: Yes Vital Signs & Weight: Vital Signs (12 hours) Temp Pulse Resp BP Pulse Ox 12/18/17 12:00 98.5 F 12/18/17 11:50 115 H 171/89 H 12/18/17 08:18 115 H 171/82 H 12/18/17 08:00 98.1 F 115 H 22 H 96 12/18/17 07:34 98 12/18/17 04:00 98.1 F Weight Admit Weight 202 lb Weight 202 lb 3 oz Most Recent Monitor Data Heart Rate from ECG 78 NIBP 165/83 NIBP BP-Mean 114 Respiration from ECG 15 SpO2 94 I&O: 12/17/17 12/18/17 12/19/17 05:59 06:59 06:59 Intake Total 200 Output Total 395 Balance -195 Result Diagrams: 12/18/17 04:17 12/18/17 04:17 Radiology Reviewed by me: Yes Phys Exam - Physical Examination HEENT: PERRLA, moist MMs Neck: no JVD Respiratory: no wheezing, no rales Cardiovascular: RRR, no significant murmur Gastrointestinal: soft, non-tender, no distention Musculoskeletal: pulses present, edema present Neurological: non-focal, normal sensation Lymphatic: no nodes Skin: no rash, normal turgor Dx/Plan (1) Acute respiratory failure with hypoxia Code(s): J96.01 - ACUTE RESPIRATORY FAILURE WITH HYPOXIA Status: Acute Comment: PT is Extubated, Doing good today, She remains Weak. Pt is on nasal canula, [facility].worsening WBC, no much change on chest xray. (2) Afib Code(s): I48.91 - UNSPECIFIED ATRIAL FIBRILLATION Status: Acute Qualifiers: Atrial fibrillation type: chronic Qualified Code(s): I48.2 - Chronic atrial fibrillation Comment: no anticoagulation due to hx of bleeding, ASA 81mg daily (3) Pneumonia Code(s): J18.9 - PNEUMONIA, UNSPECIFIED ORGANISM Status: Acute Qualifiers: Laterality: bilateral Comment: Persistant Infiltatrtes both lungs, Will continue with IV rocephin/ Vancomycin/ levofloxacin. Continue nebs.Chest xray no much change, Follow pulmonary recommedations. (4) COPD (chronic obstructive pulmonary disease) Status: Chronic Comment: Continue general pulm support , pt is stbale, Pt is Also on IV seroids. (5) Hypertension Code(s): I10 - ESSENTIAL (PRIMARY) HYPERTENSION Status: Chronic Qualifiers: Comment: Poorly controlled Will continue with PRN Hydralzine now. keep Systolic < 130 (6) Hypothyroidism Code(s): E03.9 - HYPOTHYROIDISM, UNSPECIFIED Status: Chronic Qualifiers: (7) Obesity (BMI 30-39.9) Code(s): E66.9 - OBESITY, UNSPECIFIED Status: Chronic (8) Clostridium difficile diarrhea Code(s): A04.72 - ENTEROCOLITIS D/T CLOSTRIDIUM DIFFICILE, NOT SPCF RECUR Status: Acute Comment: Patient is seen today, has persitant Diareah, started on Po vancomycin 25mg Po q6. - Plan cont current plan of care, continue antibiotics, PT/OT, social service agency director, respiratory therapy, incentive spirometry * . Review of Systems - Review of Systems Constitutional: weakness, malaise Eyes: negative: Pain, Vision Change, Conjunctivae Inflammation, Eyelid Inflammation, Redness, Other ENT: negative: Ear Pain, Ear Discharge, Nose Pain, Nose Discharge, Nose Congestion, Mouth Pain, Mouth Swelling, Throat Pain, Throat Swelling, Other Respiratory: Shortness of Breath, SOB with Excertion, Wheezing. negative: Cough , Dry, Hemoptysis, Pleuritic Pain, Sputum Cardiovascular: edema. negative: chest pain, palpitations, orthopnea, paroxysmal nocturnal dyspnea, light headedness, other Gastrointestinal: Diarrhea. negative: Nausea, Vomiting, Abdominal Pain, Constipation, Melena, Hematochezia, Other Genitourinary: negative: Dysuria, Frequency, Incontinence, Hematuria, Retention , Other Musculoskeletal: negative: Neck Pain, Shoulder Pain, Arm Pain, Back Pain, Hand Pain, Leg Pain, Foot Pain, Other - Medications/Allergies Allergies/Adverse Reactions: Allergies Allergy/AdvReac Type Severity Reaction Status Date / Time amoxicillin trihydrate Allergy Diarrhea Verified 06/28/15 03:10 [From Augmentin] ciprofloxacin [From Cipro] Allergy Rash Verified 06/28/15 03:10 clindamycin Allergy Verified 06/28/15 03:10 erythromycin lactobionate Allergy Verified 06/28/15 03:10 [From Erythrocin] Latex, Natural Rubber Allergy Rash Verified 06/28/15 03:10 metolazone [Metolazone] Allergy Verified 06/28/15 03:10 nalbuphine HCl [From Nubain] Allergy Verified 06/28/15 03:10 oxycodone HCl Allergy Rash Verified 06/28/15 03:10 [From OxyContin] potassium clavulanate Allergy Diarrhea Verified 06/28/15 03:10 [From Augmentin] Sulfa (Sulfonamide Allergy Rash Verified 06/28/15 03:10 Antibiotics) sulfamethoxazole Allergy Verified 06/28/15 03:10 [From Bactrim] trimethoprim [From Bactrim] Allergy Verified 06/28/15 03:10 zolpidem tartrate AdvReac Intermediate "crazy" Verified 06/28/15 03:10 [From Ambien] fentanyl [From Duragesic] AdvReac Mild Anxiety Verified 12/15/17 01:47 Medications: Current Medications Acetaminophen (Tylenol) 500 mg PO Q6H PRN PRN Reason: Headache/Fever or Pain Last Admin: 12/13/17 11:05 Dose: 500 mg Albuterol Sulfate (Ventolin) 2.5 mg NEB Q2H PRN PRN Reason: Wheezing Amlodipine Besylate (Norvasc) 10 mg PER TUBE DAILY [facility] Last Admin: 12/18/17 08:18 Dose: 10 mg Lipase/Protease/Amylase ([place] [id number]) 1 cap FS .PER PROTOCOL PRN PRN Reason: TUBE OCCLUSION PROTOCOL Enoxaparin Sodium (Lovenox) 40 mg SC 0900 [facility] Last Admin: 12/18/17 08:18 Dose: 40 mg Fluoxetine HCl (Prozac) 20 mg PER TUBE DAILY [facility] Last Admin: 12/18/17 08:17 Dose: 20 mg Ceftriaxone Sodium 2 gm/ (Sodium Chloride) 100 mls @ 200 mls/hr IVPB Q24HR [facility] Last Admin: 12/18/17 11:05 Dose: 100 mls Levofloxacin 750 mg/ Device 150 mls @ 100 mls/hr IVPB Q24HR [facility] Last Admin: 12/18/17 11:04 Dose: 150 mls Potassium Chloride 40 meq/ (Sodium Chloride) 270 mls @ 135 mls/hr IVPB ASDIR PRN PRN Reason: FOR SERUM K+ 2.5 - 3.5 Potassium Chloride 40 meq/ (Device) 100 mls @ 50 mls/hr IVPB ASDIR PRN PRN Reason: FOR SERUM K+ 2.5 - 3.5 Last Admin: 12/18/17 06:08 Dose: 100 mls Magnesium Sulfate 1 gm/ Sodium (Chloride) 102 mls @ 102 mls/hr IV PRN PRN PRN Reason: MAG LEVEL 1.4 - 2.0 Last Admin: 12/17/17 08:40 Dose: 102 mls Magnesium Sulfate 2 gm/ Device 100 mls @ 100 mls/hr IVPB ASDIR PRN PRN Reason: MAGNESIUM < 1.4 Potassium Phosphate 9 mmol/ (Sodium Chloride) 103 mls @ 25.75 mls/hr IVPB ASDIR PRN PRN Reason: Phosphate 1.0-1.8 Potassium Phosphate 12 mmol/ (Sodium Chloride) 254 mls @ 63.5 mls/hr IV ASDIR PRN PRN Reason: Serum phosphate 0.5-0.9 Potassium Phosphate 15 mmol/ (Sodium Chloride) 255 mls @ 63.75 mls/hr IV ASDIR PRN PRN Reason: Serum Phos < 0.5 Lactated Ringer's (Lactated Ringer's) 1,000 mls @ 0 mls/hr IV .Q0M JERMAINE PRN Reason: KVO Last Admin: 12/15/17 18:25 Dose: 1,000 mls Vancomycin HCl 1.75 gm/ Sodium (Chloride) 500 mls @ 250 mls/hr IVPB 1400 JERMAINE Last Admin: 12/18/17 13:30 Dose: 500 mls Lisinopril (Zestril) 5 mg PO DAILY [facility] Magnesium Oxide (Magnesium Oxide) 400 mg PO BIDPRN PRN PRN Reason: FOR SERUM MAG 1.4 - 2.0 Magnesium Oxide (Magnesium Oxide) 800 mg PO PRN PRN PRN Reason: FOR SERUM MAG < 1.4 Metoclopramide HCl (Reglan) 10 mg IVP Q6H PRN PRN Reason: Nausea/Vomiting Last Admin: 12/16/17 16:13 Dose: 10 mg Metoprolol Tartrate (Lopressor) 25 mg PER TUBE BID [facility] Last Admin: 12/18/17 08:18 Dose: 25 mg Miscellaneous Medication (Phos-Nak) 1 pkt PO TIDPRN PRN PRN Reason: FOR PHOS LEVEL 1.0 - 1.8 Miscellaneous Medication (Phos-Nak) 2 pkt PO TIDPRN PRN PRN Reason: FOR PHOS LEVEL 0.5 - 1.0 Miscellaneous Medication (Pharmacy To Dose) 0 each IVPB PRN PRN PRN Reason: VANCOMYCIN Morphine Sulfate (Morphine Sulfate) 4 mg SLOW IVP Q2H PRN PRN Reason: Pain Last Admin: 12/18/17 13:31 Dose: 4 mg Ondansetron HCl (Zofran) 4 mg SLOW IVP Q6H PRN PRN Reason: Nausea/Vomiting Last Admin: 12/18/17 09:58 Dose: 4 mg Pantoprazole Sodium (Protonix) 40 mg PER TUBE DAILY [facility] Last Admin: 12/18/17 08:18 Dose: 40 mg Potassium Chloride (K-Dur) 40 meq PO ASDIR PRN PRN Reason: FOR SERUM K+ 2.5 - 3.5 Potassium Chloride (Klor-Con) 40 meq PER TUBE ASDIR PRN PRN Reason: FOR SERUM K+ 2.5-3.5 Last Admin: 12/14/17 10:54 Dose: 40 meq Sodium Bicarbonate (Bicarbonate, Sodium) 650 mg PER TUBE .PER PROTOCOL PRN PRN Reason: ENTERAL TUBE OCCLUSION Sodium Chloride (Flush - Normal Saline) 10 ml IVF Q12HR [facility] Last Admin: 12/18/17 08:19 Dose: 10 ml Sodium Chloride (Flush - Normal Saline) 10 ml IVF PRN PRN PRN Reason: Saline Flush Valsartan (Diovan) 320 mg PER TUBE DAILY [facility] Last Admin: 12/18/17 08:17 Dose: 320 mg Vancomycin HCl (First Vancomycin) 250 mg PO QID [facility] Last Admin: 12/18/17 14:00 Dose: 250 mg
--- NOTE | 2017-12-18 16:35 | PRG ---
DATE OF SERVICE: 12/18/2017 SUBJECTIVE: Cecilia Santizo is a very pleasant, cooperative. She is in no distress. OBJECTIVE: VITAL SIGNS: Heart rate 75, blood pressure 165/83, respiratory rate is 15, oximetry is 96. LUNGS: Clear. HEART: Regular rhythm. ABDOMEN: Remarkable for upper mild tenderness, but no guarding. EXTREMITIES: Without asymmetry. LABORATORY DATA: White count 17.4, hemoglobin 12.3, platelets 282. Sodium 137, potassium 3.2, chloride 99, bicarbonate 27, BUN 10, creatinine 0.75. IMPRESSION: 1. Clostridium difficile colitis. 2. Deconditioning. Apparently, she has not walked in 3 years. She still is a FULL CODE. She is certainly clinically not unstable, but if she ever deteriorates to a point where she needs mechanical ventilation, her chances of weaning are pretty small.
[2017-12-19] MEDS: hydrALAZINE 20 MG/ML VIAL SLOW IVP PRN (03:49)
[2017-12-19 05:55] LABS: Band 1 % (5-11); Eosinophils 1 % (0-10); Hemoglobin 11.8 g/dL (12.0-16.0); Lymphocytes 22 % (21-51); MDiff Complete? YES; Mean Corpuscular HGB CONC 33.9 g/dL (32.0-36.0); Mean Corpuscular Hemoglobin 29.9 pg (27.0-31.0); Mean Corpuscular Volume 88.3 fl (81.0-99.0); Mean Platelet Volume 6.7 fL (7.4-10.4); Monocytes 4 % (0-10); Neutrophil 72 % (42-75); PLT Morphology Comment Appears Adequate; Platelet Count 295 thou/uL (130-400); RBC Distribution Width 12.2 % (11.5-14.5); Red Blood Cell (RBC) Count 3.94 mill/uL (4.20-5.40); White Blood Cell (WBC) Count 22.5 thou/uL (4.8-10.8)
[2017-12-19 05:56] LABS: ALT (SGPT) 32 U/L (8-55); AST (SGOT) 23 U/L (5-34); Albumin 3.1 g/dL (3.4-4.8); Alkaline Phosphatase 109 U/L (40-150); Anion Gap 13 mmol/L (10-20); BUN (Urea Nitrogen) 14 mg/dL (9.8-20.1); Bilirubin, Total 0.3 mg/dL (0.2-1.2); Calc. Creatinine Clearance 83 mL/min (70-130); Calcium 8.9 mg/dL (7.8-10.44); Carbon Dioxide 27 mmol/L (23-31); Chloride 100 mmol/L (98-107); Estimated GFR-MDRD 68; Globulin 2.8 g/dL (2.4-3.5); Glucose 103 mg/dL (83-110); Potassium 3.2 mmol/L (3.5-5.1); Protein, Total 5.9 g/dL (6.0-8.3); Sodium 137 mmol/L (136-145)
--- NOTE | 2017-12-19 08:42 | PRG ---
DATE OF SERVICE: 12/19/2017 This is a 77-year-old female who was extubated. X-ray still shows unfortunately very large bilateral pleural effusion, right greater than left. She has got Proteus in the urine sensitive to the antibi otics. She is extremely weak. She is still a full code. I talked to the family. PHYSICAL EXAMINATION: VITAL SIGNS: Pulse 80, blood pressure 161/78, sats are 99% on 2 liters, respirations 20. Her I's & O's have been good. CHEST: Chest revealed decreased breath sounds bilaterally. CARDIAC: Normal S1, S2, no gallops. ABDOMEN: Soft. NEURO: She is awake, alert, responsive. IMPRESSION: 1. Respiratory failure. 2. Severe decrease in bilateral pleural effusion with leukocytosis. 3. Clostridium difficile. PLAN: Discontinue vancomycin. Continue Rocephin. Probably switch over to oral medication tomorrow. PT and supportive care. Eventually placement. The brother will decide about her code status. One half hour critical care time.
--- NOTE | 2017-12-19 08:57 | RAD ---
CHEST 1 VIEW: HISTORY: Dyspnea. COMPARISON: 12/18/17. FINDINGS: Cardiac silhouette is predominantly obscured by bilateral pleural fluid and patchy bibasilar infiltra gonzalo that have increased since the prior exam. Mediastinum is midline with aortic calcification. No evidence of pneumothorax. Right internal jugular catheter remains directed laterally, presumably ove r the subclavian vein. ekg monitor leads overlie the chest. IMPRESSION: Worsening pulmonary vascular congestion. Other findings are stable. POS: SONIDO
[2017-12-19] MEDS ORDERED: Pantoprazole 40 MG VIAL IVP SCH (09:00)
[2017-12-19] MEDS: Enoxaparin Sodium 40 MG/0.4 ML SYRINGE SC SCH (09:01)
[2017-12-19] MEDS: Amlodipine 10 MG TAB PO SCH (09:02)
[2017-12-19] MEDS: Potassium Chloride 40 MEQ in Premix Bag 1 BAG IVPB PRN (09:02)
[2017-12-19] MEDS: Metoprolol Tartrate 25 MG TAB PO SCH ×2 (09:03→21:25)
[2017-12-19] MEDS: Lisinopril 5 MG TAB PO SCH (09:03)
[2017-12-19] MEDS: FLUoxetine HCl 20 MG CAP PER TUBE SCH (09:03)
[2017-12-19] MEDS: Valsartan 80 MG TAB PO SCH (09:10)
[2017-12-19] MEDS: Vancomycin HCl 25 MG/ML Oral PO SCH ×4 (09:25→21:25)
--- NOTE | 2017-12-19 12:06 | PDOC.PN ---
- Subjective Encounter Start Date: 12/19/17 Encounter Start Time: 14:20 Subjective: Patient with continued sacral pain with any movement. Just started on -: Fentanyl patch. - Objective MAR Reviewed: Yes Vital Signs & Weight: Vital Signs (12 hours) Temp Pulse Resp BP Pulse Ox 12/19/17 09:03 77 187/80 H 12/19/17 09:02 77 187/80 H 12/19/17 08:00 98.2 F 77 18 98 12/19/17 07:00 98.2 F 12/19/17 04:00 98.5 F 12/19/17 03:49 67 187/80 H Weight Admit Weight 202 lb Weight 203 lb 14.841 oz Most Recent Monitor Data Heart Rate from ECG 72 NIBP 152/68 NIBP BP-Mean 90 Respiration from ECG 21 SpO2 98 I&O: 12/18/17 12/19/17 12/20/17 06:59 06:59 06:59 Intake Total 1088 490 Output Total 1367 125 Balance -279 365 Result Diagrams: 12/19/17 05:30 12/19/17 05:30 Phys Exam - Physical Examination Constitutional: NAD HEENT: moist MMs Respiratory: no wheezing, no rales, no rhonchi Cardiovascular: RRR Gastrointestinal: soft, positive bowel sounds Neurological: non-focal, moves all 4 limbs Psychiatric: normal affect Dx/Plan (1) Acute respiratory failure with hypoxia Code(s): J96.01 - ACUTE RESPIRATORY FAILURE WITH HYPOXIA Status: Acute Comment: PT is Extubated. Pt is on nasal canula, Speech therapy following. [place] monitor.worsening WBC, no much change on chest xray. (2) Pneumonia Code(s): J18.9 - PNEUMONIA, UNSPECIFIED ORGANISM Status: Acute Qualifiers: Laterality: bilateral Comment: Worsening infiltrates and bilateral pleural effusions, Will continue with IV rocephin/ levofloxacin. Continue nebs. Follow pulmonary recommedations. (3) Clostridium difficile diarrhea Code(s): A04.72 - ENTEROCOLITIS D/T CLOSTRIDIUM DIFFICILE, NOT SPCF RECUR Status: Acute Comment: vancomycin 25mg Po q6. (4) COPD (chronic obstructive pulmonary disease) Status: Chronic Comment: Continue general pulm support , pt is stable, no steroids currently (5) Hypertension Code(s): I10 - ESSENTIAL (PRIMARY) HYPERTENSION Status: Chronic Qualifiers: Comment: Poorly controlled Will continue with PRN Hydralzine now. keep Systolic < 130 (6) Hypothyroidism Code(s): E03.9 - HYPOTHYROIDISM, UNSPECIFIED Status: Chronic Qualifiers: (7) Obesity (BMI 30-39.9) Code(s): E66.9 - OBESITY, UNSPECIFIED Status: Chronic (8) Physical deconditioning Code(s): R53.81 - OTHER MALAISE Status: Chronic Comment: PT evaluation and SNF options - Plan cont current plan of care, continue antibiotics, PT/OT * . - Discharge Day Encounter end time: 14:40
[2017-12-19] MEDS: cefTRIAXone\\ROCEPHIN 2 GM in Sodium Chloride 0.9% 100 ML IVPB SCH (12:36)
[2017-12-19] MEDS: Morphine 4 MG/ML VIAL SLOW IVP PRN ×2 (13:20→21:57)
[2017-12-20] MEDS: Morphine 4 MG/ML VIAL SLOW IVP PRN ×3 (00:11→22:44)
[2017-12-20] MEDS: hydrALAZINE 20 MG/ML VIAL SLOW IVP PRN (00:12)
[2017-12-20 03:33] LABS: Band 3 % (5-11); Eosinophils 4 % (0-10); Hemoglobin 11.6 g/dL (12.0-16.0); Lymphocytes 9 % (21-51); MDiff Complete? YES; Mean Corpuscular HGB CONC 34.2 g/dL (32.0-36.0); Mean Corpuscular Hemoglobin 30.2 pg (27.0-31.0); Mean Corpuscular Volume 88.3 fl (81.0-99.0); Mean Platelet Volume 6.8 fL (7.4-10.4); Metamyelocyte 4 % (0-0); Monocytes 7 % (0-10); Neutrophil 69 % (42-75); PLT Morphology Comment Appears Adequate; Platelet Count 288 thou/uL (130-400); RBC Distribution Width 12.5 % (11.5-14.5); Reactive Lymphocytes 4 % (0-10); Red Blood Cell (RBC) Count 3.83 mill/uL (4.20-5.40); White Blood Cell (WBC) Count 22.3 thou/uL (4.8-10.8)
[2017-12-20 03:34] LABS: ALT (SGPT) 26 U/L (8-55); AST (SGOT) 19 U/L (5-34); Albumin 3.1 g/dL (3.4-4.8); Alkaline Phosphatase 100 U/L (40-150); Anion Gap 13 mmol/L (10-20); BUN (Urea Nitrogen) 18 mg/dL (9.8-20.1); Bilirubin, Total 0.2 mg/dL (0.2-1.2); Calc. Creatinine Clearance 73 mL/min (70-130); Calcium 8.7 mg/dL (7.8-10.44); Carbon Dioxide 25 mmol/L (23-31); Chloride 101 mmol/L (98-107); Estimated GFR-MDRD 58; Globulin 2.7 g/dL (2.4-3.5); Glucose 111 mg/dL (83-110); Potassium 3.2 mmol/L (3.5-5.1); Protein, Total 5.8 g/dL (6.0-8.3); Sodium 136 mmol/L (136-145)
[2017-12-20] MEDS: Potassium Chloride 40 MEQ in Premix Bag 1 BAG IVPB PRN (07:07)
--- NOTE | 2017-12-20 07:41 | RAD ---
CHEST 1 VIEW: HISTORY: Dyspnea. Followup. COMPARISON: 12/19/17. FINDINGS: Cardiac silhouette remains magnified and predominantly obscured by bilateral pleural fluid and patchy bibasilar airspace disease that has improved slightly since the prior study. Pulmonary vasculature is less engorged. Mediastinum is midline. The tip of the right internal jugular central venous cath eter remains directed over the right subclavian vein. No evidence of pneumothorax. IMPRESSION: Improved aeration of the lung bases. Decrease in pulmonary vascular congestion. POS: ANGELA
--- NOTE | 2017-12-20 08:24 | PRG ---
DATE OF SERVICE: 12/20/2017 There is a 77-year-old female who appears much improved. X-ray shows a right-sided pleural effusion, probably some atelectasis. The left side looks better. Denies difficulty breathing. PHYSICAL EXAMINATION: VITAL SIGNS: Sats are 98% on 2 liters, blood pressure 160/80, pulse 80, respirations 18. I's and O' s of 1018 in, 1365 out. CHEST: Chest reveals decreased breath sounds, no wheezing. CARDIAC: Normal S1, S2. Electrolytes are normal. Potassium 3.2, white count 22,000, H&H 9 and 33, platelet count is 28. IMPRESSION: 1. Respiratory failure. 2. Morbid obesity. 3. Severe deconditioning. 4. Severe arthritis. 5. Chronic pain. PLAN: Minimize medication. Continue home [place]. Continue cardiac care. Clostridium difficile coli tis, continue. We will follow. Antibiotics for Proteus. One-half hour critical care time.
[2017-12-20] MEDS: Metoprolol Tartrate 25 MG TAB PO SCH ×2 (08:31→20:07)
[2017-12-20] MEDS: Cefdinir 300 MG CAP PO SCH ×2 (08:31→20:07)
[2017-12-20] MEDS: Lisinopril 5 MG TAB PO SCH (08:32)
[2017-12-20] MEDS: Amlodipine 10 MG TAB PO SCH (08:32)
[2017-12-20] MEDS: Valsartan 80 MG TAB PO SCH (08:33)
[2017-12-20] MEDS: FLUoxetine HCl 20 MG CAP PER TUBE SCH (08:33)
[2017-12-20] MEDS: Vancomycin HCl 25 MG/ML Oral PO SCH ×4 (08:34→20:08)
[2017-12-20] MEDS: Enoxaparin Sodium 40 MG/0.4 ML SYRINGE SC SCH (08:35)
--- NOTE | 2017-12-20 16:05 | PDOC.PN ---
- Subjective Encounter Start Date: 12/20/17 Encounter Start Time: 11:15 -: old records requested/rev Pt seen and examined, chart reviewed in its entirety. This is my first visit with this patient Pt feeling better, breathing is okay, no f/C, no N/V/d/c, diarrhea slowing nicely. no abd pain, lupe po. Midline just placed by nursing 10 point ROS performed and neg for all systems except as per HPI - Objective MAR Reviewed: Yes Vital Signs & Weight: Vital Signs (12 hours) Temp Pulse Resp BP Pulse Ox 12/20/17 14:20 84 25 H 100 12/20/17 11:00 98.1 F 12/20/17 08:32 99 171/72 H 12/20/17 07:46 97.8 F 71 21 H 98 12/20/17 07:00 97.8 F Weight Admit Weight 202 lb Weight 194 lb 3.636 oz Most Recent Monitor Data Heart Rate from ECG 89 NIBP 152/73 NIBP BP-Mean 104 Respiration from ECG 21 SpO2 92 I&O: 12/19/17 12/20/17 12/21/17 06:59 06:59 06:59 Intake Total 1088 1280 553 Output Total 1367 1250 220 Balance -279 30 333 Result Diagrams: 12/21/17 04:06 12/21/17 04:06 Radiology Reviewed by me: Yes EKG Reviewed by me: Yes Phys Exam - Physical Examination Constitutional: NAD HEENT: PERRLA, moist MMs, sclera anicteric, oral pharynx no lesions Neck: no nodes, no JVD, supple, full ROM Respiratory: no wheezing, no rales, no rhonchi, clear to auscultation bilateral Cardiovascular: RRR, no significant murmur, no rub Gastrointestinal: soft, non-tender, positive bowel sounds hyperactive BS, slightly distended Musculoskeletal: pulses present, edema present doesnt move legs Lymphatic: no nodes Psychiatric: normal affect, A&O x 3 Skin: no rash, normal turgor, cap refill <2 seconds Dx/Plan (1) Acute respiratory failure with hypoxia Code(s): J96.01 - ACUTE RESPIRATORY FAILURE WITH HYPOXIA Status: Acute Comment: PT is Extubated. Pt is on nasal canula, Speech therapy following. bree monitor. imprivng WBC with CDiff treatment, no much change on chest xray. (2) Clostridium difficile diarrhea Code(s): A04.72 - ENTEROCOLITIS D/T CLOSTRIDIUM DIFFICILE, NOT SPCF RECUR Status: Acute Comment: vancomycin 250mg Po q6. (3) Acute blood loss anemia Code(s): D62 - ACUTE POSTHEMORRHAGIC ANEMIA Status: Acute Comment: Now stable (4) Afib Code(s): I48.91 - UNSPECIFIED ATRIAL FIBRILLATION Status: Acute Qualifiers: Atrial fibrillation type: chronic Qualified Code(s): I48.2 - Chronic atrial fibrillation Comment: no anticoagulation due to hx of bleeding, ASA 81mg daily (5) Asthmatic bronchitis Code(s): J45.909 - UNSPECIFIED ASTHMA, UNCOMPLICATED Status: Acute Qualifiers: Asthma complication type: with acute exacerbation (6) Bronchitis Code(s): J40 - BRONCHITIS, NOT SPECIFIED ACUTE OR CHRONIC Status: Acute (7) Healthcare associated bacterial pneumonia Code(s): J15.9 - UNSPECIFIED BACTERIAL PNEUMONIA Status: Acute Comment: suspected though CXR was unrevealing, continue Cefepime and Vancomycin, pulmonary support, Duonebs (8) Hypokalemia Code(s): E87.6 - HYPOKALEMIA Status: Acute - Plan cont current plan of care, continue antibiotics, PT/OT, respiratory therapy * .
[2017-12-20] MEDS: Acetaminophen 500 MG TAB PO PRN (17:06)
[2017-12-20] MEDS: Ondansetron HCl/PF 4 MG/2 ML Vial SLOW IVP PRN (20:34)
[2017-12-21 04:21] LABS: #Basophils 0.1 thou/uL (0.0-0.2); #Eosinphils 0.4 thou/uL (0.0-0.7); #Lymphocytes 2.8 thou/uL (1.20-3.40); #Monocytes 1.8 thou/uL (0.11-0.59); #Neutrophils 11.2 thou/uL (1.40-6.50); %Basophils 0.4 % (0.0-1.0); %Eosinophils 2.4 % (0.0-10.0); %Lymphocytes 17.1 % (21.0-51.0); %Neutrophils 69.1 % (42.0-75.0); Hemoglobin 11.7 g/dL (12.0-16.0); Mean Corpuscular HGB CONC 33.9 g/dL (32.0-36.0); Mean Corpuscular Hemoglobin 30.3 pg (27.0-31.0); Mean Corpuscular Volume 89.5 fl (81.0-99.0); Mean Platelet Volume 6.6 fL (7.4-10.4); Platelet Count 272 thou/uL (130-400); RBC Distribution Width 12.7 % (11.5-14.5); Red Blood Cell (RBC) Count 3.86 mill/uL (4.20-5.40); White Blood Cell (WBC) Count 16.2 thou/uL (4.8-10.8)
[2017-12-21 04:48] LABS: ALT (SGPT) 23 U/L (8-55); AST (SGOT) 19 U/L (5-34); Albumin 3.1 g/dL (3.4-4.8); Alkaline Phosphatase 93 U/L (40-150); Anion Gap 13 mmol/L (10-20); BUN (Urea Nitrogen) 15 mg/dL (9.8-20.1); Bilirubin, Total 0.3 mg/dL (0.2-1.2); Calc. Creatinine Clearance 70 mL/min (70-130); Calcium 8.7 mg/dL (7.8-10.44); Carbon Dioxide 24 mmol/L (23-31); Chloride 103 mmol/L (98-107); Estimated GFR-MDRD 58; Globulin 2.7 g/dL (2.4-3.5); Glucose 103 mg/dL (83-110); Potassium 3.2 mmol/L (3.5-5.1); Protein, Total 5.8 g/dL (6.0-8.3); Sodium 137 mmol/L (136-145)
[2017-12-21] MEDS: Morphine 4 MG/ML VIAL SLOW IVP PRN (06:15)
--- NOTE | 2017-12-21 08:38 | RAD ---
AP CHEST: History: Ventilator dependent patient. Date: 12-21-17 Comparison: 12-20-17 FINDINGS: EKG leads are seen over the chest. There is suboptimal inspiratory effort seen. Bilateral pleural eff usions seen. Cardiomegaly and pulmonary vascular congestion is seen. Bilateral shoulder osteoarthritic changes seen, worse on the left than on the right. Findings are stable and unchanged since the previous day's exam. IMPRESSION: 1. Areas of bilateral lung base opacities concerning for atelectasis or pneumonia. 2. Bilateral pleural effusions. POS: [facility]
[2017-12-21] MEDS: Metoprolol Tartrate 25 MG TAB PO SCH ×2 (08:39→20:22)
[2017-12-21] MEDS: Lisinopril 5 MG TAB PO SCH (08:40)
[2017-12-21] MEDS: Cefdinir 300 MG CAP PO SCH ×2 (08:40→20:22)
[2017-12-21] MEDS: Potassium Chloride 20 MEQ TAB PO SCH ×3 (08:40→15:01)
[2017-12-21] MEDS: FLUoxetine HCl 20 MG CAP PER TUBE SCH (08:40)
[2017-12-21] MEDS: Amlodipine 10 MG TAB PO SCH (08:41)
[2017-12-21] MEDS: Enoxaparin Sodium 40 MG/0.4 ML SYRINGE SC SCH (08:42)
[2017-12-21] MEDS: Vancomycin HCl 25 MG/ML Oral PO SCH ×4 (08:42→20:22)
--- NOTE | 2017-12-21 09:15 | PRG ---
DATE OF SERVICE: 12/21/2017 This morning she is awake, alert, responsive, eating breakfast. PHYSICAL EXAMINATION: VITAL SIGNS: Blood pressure is 174/75, pulse 77, O2 sat 90% on room air, temperature 98. Denies dif ficulty breathing. CHEST: Chest reveals decreased breath sounds without any wheezing. CARDIAC: Normal S1, S2. ABDOMEN: Soft, no masses. X-ray still shows bilateral pleural effusion. White count 16,000, H&H 9 and 34, platelet count is n ormal. Electrolytes are normal. IMPRESSION: 1. Respiratory failure. 2. Severe deconditioning, essentially wheelchair ridden. 3. Bilateral pleural effusion. PLAN: boil off worker is involved in discharge planning. Continue medicine for C. diff colitis. Empi trevor antibiotics, supportive care, PT, nutrition. Incidentally she is made a DNR. I have discussed with the daughter. They all agree.
[2017-12-21] MEDS: Acetaminophen 500 MG TAB PO PRN (11:06)
[2017-12-21] MEDS: Valsartan 80 MG TAB PO SCH (11:07)
--- NOTE | 2017-12-21 12:34 | PQF ---
CLINICAL DOCUMENTATION IMPROVEMENT CLARIFICATION FORM: ICD-10 Updated PLEASE DO AN ADDENDUM TO THE PROGRESS NOTE WITH ANY DOCUMENTATION UPDATES OR ADDITIONS AND CARRY THROUGH TO DC SUMMARY. THANK YOU. DATE: 12/21/17; 12/22/17 ATTN: Dr. Miller Please exercise your independent, professional judgment in responding to the clarification form. Clinical indicators are provided on the bottom of this form for your review Please check appropriate box(s) to clarify if the following diagnosis has been ruled in or ruled out: SEVERE SEPSIS IN (H&P). [ ] Ruled in diagnosis [ ] Continue to treat [ ] Resolved [ ] Ruled out diagnosis [ ] Cannot rule out diagnosis [ ] Other diagnosis [ ] Unable to determine In addition, please specify: Present on Admission (POA): [ ] Yes [ ] No [ ] Unable to determine For continuity of documentation, please document condition throughout progress notes and discharge summary. Thank You. CLINICAL INDICATORS - SIGNS / SYMPTOMS / LABS H&P: CHANGE IN MENTAL STATUS FEVER OF 101 ELEVATED WHITE COUNT OF 18,000 SHE HAD A SEPTIC PICTURE W/ ELEVATED LACTIC ACID IN THE ER. 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 HX HTN, COPD CHRONIC A FIB. TREATMENT: CPOE 3/6: LEVAQUIN 750MG IV Q 24 HR. DC'D 12/20/17. CPOE 3: ROCEPHIN 2 GM IV Q 24 HR. DC'D 12/20/17. CPOE 12/14: VANCOMYCIN 250 PO QID CPOE 12/20: OMNICEF 300 MG PO BID Thank you, Gunjan (This form is maintained as a part of the permanent medical record) 2015 [employer] All Rights Reserved Gunjan Hamilton RN, BSN [email or web address] Office: [phone] [facility]
--- NOTE | 2017-12-21 12:36 | PDOC.PN ---
- Subjective Encounter Start Date: 12/21/17 Encounter Start Time: 11:05 Pt feeling better, sitting up some. Pt agreeable to going to rehab, case management consulted. PT/OT evals ordered. no F/C, no N/V/D/c, no CP or SOB. had abd pain foir 2 hours yestrday, spontaneously resolved. 10 point ROS performed and neg for all systems except as per HPI - Objective Resuscitation Status: Resuscitation Status DNR:Do Not Resuscitate MAR Reviewed: Yes Vital Signs & Weight: Vital Signs (12 hours) Temp Pulse Resp BP BP Pulse Ox 12/21/17 08:41 70 174/75 H 12/21/17 08:40 70 174/75 H 12/21/17 08:07 99 12/21/17 08:04 80 18 99 12/21/17 08:00 96.4 F L 71 20 174/75 H 96 12/21/17 04:00 98.2 F 73 18 163/70 H 94 L Weight Admit Weight 202 lb Weight 194 lb 3.636 oz Most Recent Monitor Data Heart Rate from ECG 83 NIBP 163/66 NIBP BP-Mean 118 Respiration from ECG 30 SpO2 95 I&O: 12/20/17 12/21/17 12/22/17 06:59 06:59 06:59 Intake Total 1280 1098 Output Total 1250 1005 Balance 30 93 Result Diagrams: 12/21/17 04:06 12/21/17 04:06 Phys Exam - Physical Examination Constitutional: NAD HEENT: PERRLA, moist MMs, sclera anicteric, oral pharynx no lesions Neck: no nodes, no JVD, supple, full ROM Respiratory: no wheezing, no rales, no rhonchi, clear to auscultation bilateral Cardiovascular: RRR, no significant murmur, no rub Gastrointestinal: soft, non-tender, no distention, positive bowel sounds Musculoskeletal: pulses present, edema present Lymphatic: no nodes Psychiatric: normal affect, A&O x 3 Skin: no rash, normal turgor, cap refill <2 seconds Dx/Plan (1) Acute respiratory failure with hypoxia Code(s): J96.01 - ACUTE RESPIRATORY FAILURE WITH HYPOXIA Status: Acute Comment: PT is Extubated. Pt is on nasal canula, Speech therapy following. Gamer[employer] monitor. imprivng WBC to 16.X today with CDiff treatment, no much change on chest xray. (2) Clostridium difficile diarrhea Code(s): A04.72 - ENTEROCOLITIS D/T CLOSTRIDIUM DIFFICILE, NOT SPCF RECUR Status: Acute Comment: vancomycin 250mg Po q6. Rx for 10 days total (3) Acute blood loss anemia Code(s): D62 - ACUTE POSTHEMORRHAGIC ANEMIA Status: Acute Comment: Now stable (4) Afib Code(s): I48.91 - UNSPECIFIED ATRIAL FIBRILLATION Status: Acute Qualifiers: Atrial fibrillation type: chronic Qualified Code(s): I48.2 - Chronic atrial fibrillation Comment: no anticoagulation due to hx of bleeding, ASA 81mg daily (5) Asthmatic bronchitis Code(s): J45.909 - UNSPECIFIED ASTHMA, UNCOMPLICATED Status: Acute Qualifiers: Asthma complication type: with acute exacerbation (6) Bronchitis Code(s): J40 - BRONCHITIS, NOT SPECIFIED ACUTE OR CHRONIC Status: Acute (7) Healthcare associated bacterial pneumonia Code(s): J15.9 - UNSPECIFIED BACTERIAL PNEUMONIA Status: Acute Comment: suspected though CXR was unrevealing, continue Cefepime and Vancomycin, pulmonary support, Duonebs (8) Hypokalemia Code(s): E87.6 - HYPOKALEMIA Status: Acute - Plan cont current plan of care, plan discussed w/ family, continue antibiotics, PT/OT * . restart neurontin for BLE neuropathy, stop morphine, restart home hydrocodone. transfer to floor
[2017-12-21] MEDS: HYDROcodone/Acetaminophen 10/325 mg Tablet PO PRN ×2 (13:23→17:29)
[2017-12-21] MEDS ORDERED: Gabapentin 400 MG CAP PO SCH (14:30)
[2017-12-21] MEDS: ALPRAZolam 0.25 MG TAB PO SCH (23:39)
[2017-12-21] MEDS: Gabapentin 400 MG CAP PO SCH (23:40)
[2017-12-22] MEDS: ALPRAZolam 0.25 MG TAB PO SCH ×2 (03:06→20:59)
[2017-12-22 05:03] LABS: #Basophils 0.1 thou/uL (0.0-0.2); #Eosinphils 0.4 thou/uL (0.0-0.7); #Lymphocytes 2.4 thou/uL (1.20-3.40); #Monocytes 1.3 thou/uL (0.11-0.59); #Neutrophils 7.8 thou/uL (1.40-6.50); %Basophils 0.4 % (0.0-1.0); %Eosinophils 3.6 % (0.0-10.0); %Lymphocytes 20.2 % (21.0-51.0); %Monocytes 10.7 % (0.0-10.0); %Neutrophils 65.1 % (42.0-75.0); Hemoglobin 10.5 g/dL (12.0-16.0); Mean Corpuscular HGB CONC 33.7 g/dL (32.0-36.0); Mean Corpuscular Hemoglobin 30.3 pg (27.0-31.0); Mean Corpuscular Volume 90.1 fl (81.0-99.0); Platelet Count 247 thou/uL (130-400); RBC Distribution Width 12.7 % (11.5-14.5); Red Blood Cell (RBC) Count 3.45 mill/uL (4.20-5.40); White Blood Cell (WBC) Count 11.9 thou/uL (4.8-10.8)
[2017-12-22 05:18] LABS: Anion Gap 12 mmol/L (10-20); BUN (Urea Nitrogen) 14 mg/dL (9.8-20.1); Calc. Creatinine Clearance 66 mL/min (70-130); Calcium 8.3 mg/dL (7.8-10.44); Carbon Dioxide 25 mmol/L (23-31); Chloride 103 mmol/L (98-107); Estimated GFR-MDRD 54; Glucose 97 mg/dL (83-110); Potassium 3.1 mmol/L (3.5-5.1); Sodium 137 mmol/L (136-145)
[2017-12-22] MEDS: Potassium Chloride 20 MEQ TAB PO SCH ×7 (06:47→23:29)
--- NOTE | 2017-12-22 09:30 | PRG ---
DATE OF SERVICE: 12/22/2017 This morning she is better, less shortness of breath, some cough. PHYSICAL EXAMINATION: VITAL SIGNS: Sats 94% on room air, blood pressure 153/77, respiration rate 18, temperature 98. CHEST: Chest reveals decreased breath sounds, no wheezing. CARDIAC: Normal S1, S2. ABDOMEN: Soft, no masses. White count 10,000, H&H is 10 and 31. Electrolytes are normal. IMPRESSION: 1. Respiratory failure. 2. Chronic obstructive pulmonary disease. 3. Severe deconditioning, essentially wheelchair ridden. 4. Probably some diastolic dysfunction along with some pneumonia. PLAN: She can be transferred to a [facility] for rehab. Antibiotics for 5 days. PT and supportive care, eventually home where she is stable.
[2017-12-22] MEDS: Gabapentin 400 MG CAP PO SCH ×3 (09:36→20:59)
[2017-12-22] MEDS: Metoprolol Tartrate 25 MG TAB PO SCH ×2 (09:37→21:00)
[2017-12-22] MEDS: Valsartan 80 MG TAB PO SCH (09:37)
[2017-12-22] MEDS: Amlodipine 10 MG TAB PO SCH (09:37)
[2017-12-22] MEDS: Cefdinir 300 MG CAP PO SCH ×2 (09:37→20:59)
[2017-12-22] MEDS: FLUoxetine HCl 20 MG CAP PER TUBE SCH (09:37)
[2017-12-22] MEDS: Vancomycin HCl 25 MG/ML Oral PO SCH ×4 (09:38→21:00)
[2017-12-22] MEDS: Enoxaparin Sodium 40 MG/0.4 ML SYRINGE SC SCH (09:38)
[2017-12-22] MEDS: Lisinopril 5 MG TAB PO SCH (09:39)
[2017-12-22] MEDS ORDERED: Magnesium Sulfate 4 GM in Sodium Chloride 0.9% 250 ML 250 ML IVPB SCH (11:15)
[2017-12-22] MEDS ORDERED: Magnesium 2 GM/NS 0.9% 100 ML 4 GM in Premix Bag 1 BAG IVPB SCH (11:15)
--- NOTE | 2017-12-22 12:28 | PDOC.PN ---
- Subjective Encounter Start Date: 12/22/17 Encounter Start Time: 11:15 Pt sleep but aroudsable, then Ox3. no f/c, no N/v/d/c. diarrhea esentially gone. potasium remains low despite replacement, review of chart showes Mg level 1.4 on 12/17 and no replacemment ordered. 4g IV ordered, will try agian to replace. Daughter at bedside, cleared by [employer] to go to rehab. daughter concerned harpal on incontinence, but i assured her we could not keep her for that and explained inherent risks of remaining in a hospital when medically ready to go to the [facility]. 10 point ROS performed and neg for all systems except as per HPI - Objective Resuscitation Status: Resuscitation Status DNR:Do Not Resuscitate MAR Reviewed: Yes Vital Signs & Weight: Vital Signs (12 hours) Temp Pulse Pulse Pulse Resp BP BP 12/22/17 11:52 98.8 F 60 17 12/22/17 09:39 73 163/67 H 12/22/17 09:37 76 163/67 H 12/22/17 08:00 98.8 F 73 20 12/22/17 07:54 98.8 F 100 18 12/22/17 07:45 83 80 153/77 H 12/22/17 06:54 71 16 12/22/17 04:00 59 L 19 BP BP Pulse Ox Pulse Ox 12/22/17 11:52 151/67 H 95 12/22/17 09:39 12/22/17 09:37 12/22/17 08:00 94 L 12/22/17 07:54 153/77 H 94 L 12/22/17 07:45 147/67 H 95 12/22/17 06:54 95 12/22/17 04:00 145/49 H 93 L Weight Admit Weight 202 lb Weight 194 lb 3.636 oz Most Recent Monitor Data Heart Rate from ECG 83 NIBP 163/66 NIBP BP-Mean 118 Respiration from ECG 30 SpO2 95 I&O: 12/21/17 12/22/17 12/23/17 06:59 06:59 06:59 Intake Total 1098 850 Output Total 1005 675 Balance 93 175 Result Diagrams: 12/22/17 04:40 12/22/17 04:40 Phys Exam - Physical Examination Constitutional: NAD HEENT: PERRLA, moist MMs, sclera anicteric, oral pharynx no lesions Neck: no nodes, no JVD, supple, full ROM Respiratory: no wheezing, no rales, no rhonchi, clear to auscultation bilateral Cardiovascular: RRR, no significant murmur, no rub Gastrointestinal: soft, non-tender, no distention, positive bowel sounds Musculoskeletal: pulses present, edema present minimal movement to BLE Lymphatic: no nodes Psychiatric: normal affect, A&O x 3 Skin: no rash, normal turgor, cap refill <2 seconds Dx/Plan (1) Acute respiratory failure with hypoxia Code(s): J96.01 - ACUTE RESPIRATORY FAILURE WITH HYPOXIA Status: Resolved Comment: PT is Extubated. Pt off of nasal canula, Speech therapy following. bree monitor. improving WBC to 11.9 today with CDiff treatment, CXR unchanged (2) Clostridium difficile diarrhea Code(s): A04.72 - ENTEROCOLITIS D/T CLOSTRIDIUM DIFFICILE, NOT SPCF RECUR Status: Acute Comment: vancomycin 250mg Po q6. Rx for 10 days total (3) Acute blood loss anemia Code(s): D62 - ACUTE POSTHEMORRHAGIC ANEMIA Status: Acute Comment: Now stable (4) Afib Code(s): I48.91 - UNSPECIFIED ATRIAL FIBRILLATION Status: Chronic Qualifiers: Atrial fibrillation type: chronic Qualified Code(s): I48.2 - Chronic atrial fibrillation Comment: no anticoagulation due to hx of bleeding, ASA 81mg daily (5) Asthmatic bronchitis Code(s): J45.909 - UNSPECIFIED ASTHMA, UNCOMPLICATED Status: Resolved Qualifiers: Asthma complication type: with acute exacerbation (6) Bronchitis Code(s): J40 - BRONCHITIS, NOT SPECIFIED ACUTE OR CHRONIC Status: Resolved Comment: omnicef for 2 more days (7) Healthcare associated bacterial pneumonia Code(s): J15.9 - UNSPECIFIED BACTERIAL PNEUMONIA Status: Acute Comment: suspected though CXR was unrevealing, omnicef for 2-3 more days (8) Hypokalemia Code(s): E87.6 - HYPOKALEMIA Status: Acute Comment: stat mag, replace orally - Plan cont current plan of care, plan discussed w/ family, continue antibiotics, PT/OT , respiratory therapy * .
[2017-12-23] MEDS: Potassium Chloride 20 MEQ TAB PO SCH (06:10)
[2017-12-23 07:41] LABS: Anion Gap 9 mmol/L (10-20); BUN (Urea Nitrogen) 10 mg/dL (9.8-20.1); Calc. Creatinine Clearance 71 mL/min (70-130); Calcium 8.6 mg/dL (7.8-10.44); Carbon Dioxide 24 mmol/L (23-31); Chloride 107 mmol/L (98-107); Estimated GFR-MDRD 55; Glucose 102 mg/dL (83-110); Potassium 4.4 mmol/L (3.5-5.1); Sodium 136 mmol/L (136-145)
[2017-12-23 07:44] LABS: #Basophils 0.1 thou/uL (0.0-0.2); #Eosinphils 0.5 thou/uL (0.0-0.7); #Lymphocytes 2.5 thou/uL (1.20-3.40); #Monocytes 1.1 thou/uL (0.11-0.59); #Neutrophils 8.6 thou/uL (1.40-6.50); %Basophils 0.6 % (0.0-1.0); %Eosinophils 3.6 % (0.0-10.0); %Lymphocytes 19.5 % (21.0-51.0); %Monocytes 8.9 % (0.0-10.0); %Neutrophils 67.4 % (42.0-75.0); Hemoglobin 10.7 g/dL (12.0-16.0); Mean Corpuscular HGB CONC 32.9 g/dL (32.0-36.0); Mean Corpuscular Hemoglobin 30.1 pg (27.0-31.0); Mean Corpuscular Volume 91.3 fl (81.0-99.0); Mean Platelet Volume 7.5 fL (7.4-10.4); Platelet Count 245 thou/uL (130-400); RBC Distribution Width 12.9 % (11.5-14.5); Red Blood Cell (RBC) Count 3.55 mill/uL (4.20-5.40); White Blood Cell (WBC) Count 12.8 thou/uL (4.8-10.8)
[2017-12-23] MEDS: Gabapentin 400 MG CAP PO SCH ×2 (08:30→14:02)
[2017-12-23] MEDS: Lisinopril 5 MG TAB PO SCH (08:31)
[2017-12-23] MEDS: FLUoxetine HCl 20 MG CAP PER TUBE SCH (08:32)
[2017-12-23] MEDS: Amlodipine 10 MG TAB PO SCH (08:32)
[2017-12-23] MEDS: Metoprolol Tartrate 25 MG TAB PO SCH (08:33)
[2017-12-23] MEDS: Valsartan 80 MG TAB PO SCH (08:33)
[2017-12-23] MEDS: Cefdinir 300 MG CAP PO SCH (08:34)
[2017-12-23] MEDS: Vancomycin HCl 25 MG/ML Oral PO SCH ×2 (08:34→14:02)
[2017-12-23] MEDS: Enoxaparin Sodium 40 MG/0.4 ML SYRINGE SC SCH (08:37)
--- NOTE | 2017-12-23 08:58 | PRG ---
DATE OF SERVICE: 12/23/2017 This morning she is better, less short of breath. She is still having diarrhea, though. PHYSICAL EXAMINATION: VITAL SIGNS: Sats are 96% on room air, blood pressure 170/76, respiration rate 18, temperature 99. CHEST: Chest reveals decreased breath sounds, no wheezing. CARDIAC: Normal S1, S2. ABDOMEN: Soft, no masses. LABORATORY: White count 12,000, H&H 10 and 32, platelet count is normal. Electrolytes are normal. IMPRESSION: 1. Clostridium difficile colitis, better. 2. Respiratory failure. 3. Bilateral pneumonia, improved. 4. Severe deconditioning. PLAN: Placement is being initiated. Continue p.o. vancomycin. Supportive care.
[2017-12-23 09:47] VITALS: BMI 34.1
[2017-12-23 16:05] VITALS: BP 138/54; TEMP 98.8
--- NOTE | 2017-12-24 11:45 | EKG ---
Test Reason : Blood Pressure : / mmHG Vent. Rate : 126 BPM Atrial Rate : 126 BPM P-R Int : 144 ms QRS Dur : 102 ms QT Int : 328 ms P-R-T Axes : 040 -69 093 degrees QTc Int : 475 ms Sinus tachycardia with Premature atrial complexes Left axis deviation Anterolateral infarct , age undetermined Abnormal ECG Confirmed by ISABEL NORTH, SINDHU Spann ([id number]), advertising editor ROMY CHAMBERS ([id number]) on 12/24/2017 11:44:22 AM Referred By: Confirmed By:SINDHU HALL MD
--- NOTE | 2017-12-26 14:38 | DIS ---
DATE OF ADMISSION: 12/13/2017 DATE OF DISCHARGE: 12/23/2017 DISCHARGE DIAGNOSES: 1. Clostridium difficile colitis. 2. Healthcare-associated pneumonia, present on admission. 3. Acute hypoxemic respiratory failure. 4. Severe deconditioning. 5. Severe sepsis, present on admission and resolved. 6. Acute blood loss anemia. 7. Chronic atrial fibrillation. 8. History of asthmatic bronchitis with acute exacerbation. 9. Hyperkalemia, resolved. CONSULTATIONS: Pulmonary Critical Care. Initially Dr. Jung Farrell, 12/13/2017 to 12/16/2017; edwige owed by Dr. Jose C Mcpherson, 12/17/2017 to 12/18/2017; and Dr. Hook 12/19/2017 to 12/23/2017. PROCEDURES: 1. Lumbar puncture under fluoroscopy on 12/13/2017. 2. Endotracheal intubation and right internal jugular triple lumen catheter placement on 12/13/[address] Shakir Camargo. 3. Echocardiogram on 12/14/[address] Marilu Valdivia showed an ejection fraction of 55% to 60%, diastolic dysfunction, otherwise unremarkable. HISTORY AND PHYSICAL: Ms. Santizo is a 77-year-old white female, who presented to the emergency dep artment on the day of admission 12/13/2017 including a fever. She lives with a daughter and had coug h for a few days and low grade fevers. They contacted Dr. Hook in the office, initially started on p rednisolone, but the patient did not take it. The pain was getting worse, so she was brought to the ER after she developed mental status changes. While in the ER, she had a fever of 101. Chest x-ray was unremarkable and urinalysis was negative, b ut she did have an elevated white count. Lactic acid was elevated in the emergency department at 3.2 . She got some IV fluids and we were subsequently called for admission. HOSPITAL COURSE: The patient was seen and examined by Dr. Watson Saul and admitted to the [facility] for s evere sepsis with acute metabolic encephalopathy. LP was ordered and the patient was decompensated respiratorily and ended up being intubated and the I J line was placed. She was given IV antibiotics initially with Rocephin, vancomycin, and Levaquin to cover other respiratory illnesses. Pulmonary Critical Care was consulted and saw her on the same day of admission, echocardiogram was or dered with the above findings. Over the day 12/13/2017 to 12/14/2017, the patient did decompensate and had to be intubated. She rem ained on the ventilator on 12/14/2017, intubated and sedated. Current therapy was planned. The aylin ent remained critically ill, but stable. By 12/15/2017, the patient was more responsive. She was nodding appropriately to questions. She dev eloped some profuse diarrhea and both C. diff antigen and toxin were positive. Antibiotics were adju sted to cover her urine and C. diff. By 12/16/2017, the patient remained intubated on mechanical ventilation. She developed some frothy s ecretions overnight while on the ventilator and probably had coughed at her tube. The tube was repla johnna and Lasix was given, the patient resolved. Her sepsis continued to improve by numbers. She was weaning well on the ventilator. IV antibiotics were continued. Oral vancomycin was continued. The patient continued on DVT and gastrointestinal prophylaxis. On 12/17/2017, Dr. Mcpherson took over the Pulmonary Critical Care team. The patient was cooperative and in no distress. Chest x-ray revealed bibasilar infiltrates, thought secondary to aspiration or heal thcare-associated pneumonia and she was continued on antibiotics. On 12/18/2017, the patient was in no distress, pleasant and cooperative. She has been extubated in the morning and was doing well. Chest x-ray was improving. On 12/18/2017, the patient was awake, seemed weak and white blood cell count bump was noted. She was tolerating nasal cannula. Chest x-ray was stable. There were no adjustments made. Continue IV Padilla ephin, vancomycin, and Levaquin. Pulmonary continue to follow. On 12/19/2017, Dr. Noel Roman took over the Hospitalist and Dr. Hook continued to assume care from the Pulmonary Critical Care standpoint. The patient was taken off of IV vancomycin. Continue on Roceph in and Levaquin. She continued on oral vancomycin. On 12/20/2017, I did take over the case. The patient was doing well off of mechanical ventilation. She is breathing okay. No fevers or chills, and diarrhea was improving. She had been transferred to the intermediate care unit and had a new midline placed for IV access. From 12/20/2017 to 8, the patient continued to slowly improve. Diarrhea although resolved. She had been working with P T and OT and the remaining somewhat incontinent of urine and stool, was medically ready to go the nex t level. Her magnesium was replaced for magnesium level 1.4 and a white blood cell count was almost back to no rmal at 11.9. On 12/23/2017, she was accepted at a rehab facility, was stable for discharge for continued care. PHYSICAL EXAMINATION: The patient was seen and examined on the day of discharge. Discharge plan and disposition were discussed with the patient and her family face to face at the bedside. DISCHARGE MEDICATIONS: 1. Tylenol 500 mg q.6 hours p.r.n. 2. Albuterol sulfate 2.5 mg nebulized every 2 hours p.r.n. 3. DuoNeb 3 mL q.6 hours scheduled. 4. Lisinopril 5 mg daily. 5. Metoprolol 25 mg p.o. b.i.d. 6. Pantoprazole 40 mg daily. 7. Valsartan 320 mg p.o. daily. 8. Vancomycin 250 mg p.o. q.i.d. for C. diff. Supposed to stop after her last dose on 12/25/2017. 9. Fluoxetine 20 mg daily. 10. Atorvastatin 10 mg p.o. at bedtime. 11. Amlodipine 10 mg daily. 12. Levothyroxine 125 mcg daily. 13. Tolterodine 4 mg p.o. daily. 14. Beclomethasone one puff inhaled twice daily. 15. Xanax 0.25 mg p.o. at bedtime. 16. Vitamin C 500 mg daily. 17. Cholecalciferol 2000 units daily. 18. Lasix 20 mg p.o. daily as needed for increased swelling. 19. Hydrocodone/APAP 10/325 one q.4 hours p.r.n. 20. Meloxicam 15 mg daily. 21. Multivitamin daily. 22. Potassium chloride 10 mEq p.o. daily when taking Lasix. 23. Phenergan DM syrup 5 mL q.6 hours p.r.n. cough. 24. Zantac 75 mg p.o. at bedtime. 25. Gabapentin 600 mg p.o. b.i.d. and 800 mg p.o. every noon. DISCHARGE DIET: Heart healthy recommended. DISCHARGE ACTIVITY: Per cardiopulmonary limits. PT, OT consults were recommended. DISCHARGE CONDITION: Stable. DISPOSITION: The patient was discharged to a [facility] at [facility]. Greater than 45 minutes were spent coordinating discharge.
--- NOTE | 2017-12-29 09:51 | PQF ---
CAMILA GANMONICA MONTANO [id number] CLINICAL DOCUMENTATION IMPROVEMENT CLARIFICATION FORM: ICD-10 Updated PLEASE DO AN ADDENDUM TO THE PROGRESS NOTE WITH ANY DOCUMENTATION UPDATES OR ADDITIONS AND CARRY THROUGH TO DC SUMMARY. THANK YOU. DATE: 12/21/17 ATTN: Dr. Miller Please exercise your independent, professional judgment in responding to the clarification form. Clinical indicators are provided on the bottom of this form for your review Please check appropriate box(s) to clarify if the following diagnosis has been ruled in or ruled out: SEVERE SEPSIS IN (H&P) [ x ] Ruled in diagnosis [ ] Continue to treat [ x ] Resolved [ ] Ruled out diagnosis [ ] Cannot rule out diagnosis [ ] Other diagnosis [ ] Unable to determine In addition, please specify: Present on Admission (POA): [ x ] Yes [ ] No [ ] Unable to determine For continuity of documentation, please document condition throughout progress notes and discharge summary. Thank You. CLINICAL INDICATORS - SIGNS / SYMPTOMS / LABS H&P: CHANGE IN MENTAL STATUS FEVER OF 101 ELEVATED WHITE COUNT OF 18,000 SHE HAD A SEPTIC PICTURE W/ ELEVATED LACTIC ACID IN THE ER. 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 HX HTN, COPD CHRONIC A FIB. TREATMENT: CPOE 3/6: LEVAQUIN 750MG IV Q 24 HR. DC'D 12/20/17. CPOE 3/6: ROCEPHIN 2 GM IV Q 24 HR. DC'D 12/20/17. CPOE 3/: VANCOMYCIN 250 PO QID CPOE 12/20: OMNICEF 300 MG PO BID THANK YOU, GUNJAN (This form is maintained as a part of the permanent medical record) 2015 [employer]. All Rights Reserved Gunjan Hamilton RN, BSN [email or web address] Office: [phone] [facility]
--- NOTE | 2018-01-19 19:32 | EKG ---
Test Reason : Blood Pressure : / mmHG Vent. Rate : 100 BPM Atrial Rate : 100 BPM P-R Int : 000 ms QRS Dur : 108 ms QT Int : 382 ms P-R-T Axes : 046 -46 065 degrees QTc Int : 492 ms Normal sinus rhythm with premature atrial contractions Left axis deviation Possible Lateral infarct (cited on or before 13-DEC-2017) Abnormal ECG When compared with ECG of 13-DEC-2017 03:53, (Unconfirmed) Nonspecific T wave abnormality has replaced inverted T waves in Lateral leads Confirmed by DR. Kj ALVAREZ ([id number]) on 01/19/2018 7:32:06 PM Referred By: Confirmed By:DR. Kj ALVAREZ
== END 2017-12-23 16:55 | DRG 871 ==
LOC: ERS 03:36 → 2NO 06:10 → IMCU/EMU 11:54 → CCU 16:23 → IMCU/EMU 12-20 18:12
PROVIDERS: ADMIT Internal Medicine; ATTEND Internal Medicine
PROC: 5A1945Z Respiratory Ventilation, 24-96 Consecutive Hours (ICD-10-PCS; principal; 2017-12-13)
PROC: 0BH17EZ Insertion of Endotracheal Airway into Trachea, Via Natural or Artificial Opening (ICD-10-PCS; 2017-12-13)
PROC: 05H533Z Insertion of Infusion Device into Right Subclavian Vein, Percutaneous Approach (ICD-10-PCS; 2017-12-13)
PROC: 009U3ZX Drainage of Spinal Canal, Percutaneous Approach, Diagnostic (ICD-10-PCS; 2017-12-13)
DX: A41.9 Sepsis, unspecified organism (principal); J96.01 Acute respiratory failure with hypoxia; J18.9 Pneumonia, unspecified organism; G93.41 Metabolic encephalopathy; A04.72 Enterocolitis due to Clostridium difficile, not specified as recurrent; J44.1 Chronic obstructive pulmonary disease with (acute) exacerbation; N39.0 Urinary tract infection, site not specified; I48.2 Chronic atrial fibrillation; E86.0 Dehydration; D62 Acute posthemorrhagic anemia; E66.01 Morbid (severe) obesity due to excess calories; Z66 Do not resuscitate; E03.9 Hypothyroidism, unspecified; E78.5 Hyperlipidemia, unspecified; F32.9 Major depressive disorder, single episode, unspecified; F41.9 Anxiety disorder, unspecified; I10 Essential (primary) hypertension; K21.9 Gastro-esophageal reflux disease without esophagitis; R65.20 Severe sepsis without septic shock; E87.6 Hypokalemia; Z68.34 Body mass index [BMI] 34.0-34.9, adult; B96.4 Proteus (mirabilis) (morganii) as the cause of diseases classified elsewhere; Z88.1 Allergy status to other antibiotic agents; Z88.5 Allergy status to narcotic agent; Z88.2 Allergy status to sulfonamides; Z88.0 Allergy status to penicillin; Z88.8 Allergy status to other drugs, medicaments and biological substances; Z79.899 Other long term (current) drug therapy; Y95 Nosocomial condition
CPT/HCPCS: 36415; 36416; 51701; 62270; 70450; 71045; 74177; 80048; 80053; 80074; 80202; 81003; 82550; 82553; 82805; 82945; 83605; 83690; 83735; 84100; 84145; 84157; 84484; 85025; 85610; 85730; 87040; 87070; 87077; 87086; 87186; 87205; 87324; 87449; 87493; 87804; 89051; 93005; 93010; 93306; 94002; 94003; 94640; 94760; 96361; 96374; A4216; A4353; C9113; G8978-GP-CM; G8979-GP-CL; G8987-GO-CL; G8988-GO-CJ; G8996-GN-CN; G8997-GN-CK; J0360; J0692; J0696; J1250; J1650; J1940; J1956; J2060; J2250; J2270; J2405; J2704; J2765; J3010; J3370; J3475; J3480; J3490; J7050; J7611; Q0162

== ENCOUNTER 2018-01-08 07:01 | Emergency (ER) | payer MEDICARE, OTHER ==
[2018-01-08 08:04] LABS: #Basophils 0.1 thou/uL (0.0-0.2); #Eosinphils 0.6 thou/uL (0.0-0.7); #Lymphocytes 1.4 thou/uL (1.20-3.40); #Monocytes 0.6 thou/uL (0.11-0.59); #Neutrophils 5.8 thou/uL (1.40-6.50); %Basophils 0.7 % (0.0-1.0); %Eosinophils 6.8 % (0.0-10.0); %Lymphocytes 16.3 % (21.0-51.0); %Monocytes 7.1 % (0.0-10.0); %Neutrophils 69.1 % (42.0-75.0); Hemoglobin 11.7 g/dL (12.0-16.0); Mean Corpuscular HGB CONC 32.5 g/dL (32.0-36.0); Mean Corpuscular Hemoglobin 30.2 pg (27.0-31.0); Mean Corpuscular Volume 93.1 fl (81.0-99.0); Mean Platelet Volume 7.3 fL (7.4-10.4); Platelet Count 196 thou/uL (130-400); RBC Distribution Width 12.7 % (11.5-14.5); Red Blood Cell (RBC) Count 3.88 mill/uL (4.20-5.40); White Blood Cell (WBC) Count 8.4 thou/uL (4.8-10.8)
[2018-01-08 08:29] LABS: ALT (SGPT) 12 U/L (8-55); AST (SGOT) 14 U/L (5-34); Albumin 3.5 g/dL (3.4-4.8); Alkaline Phosphatase 113 U/L (40-150); Anion Gap 14 mmol/L (10-20); BUN (Urea Nitrogen) 20 mg/dL (9.8-20.1); Bilirubin, Total 0.4 mg/dL (0.2-1.2); Calc. Creatinine Clearance 0 mL/min (70-130); Carbon Dioxide 24 mmol/L (23-31); Chloride 104 mmol/L (98-107); Estimated GFR-MDRD 41; Glucose 104 mg/dL (83-110); Magnesium 1.9 mg/dL (1.6-2.6); Potassium 4.7 mmol/L (3.5-5.1); Protein, Total 6.5 g/dL (6.0-8.3); Sodium 137 mmol/L (136-145)
[2018-01-08 08:34] LABS: CKMB 0.3 ng/mL (0-6.6); Troponin I Less than 0.010 ng/mL (< 0.028)
[2018-01-08 08:41] LABS: Bilirubin Negative (Negative); Blood, Urine Negative (Negative); Clarity CLEAR (Clear); Glucose, Urine (Dipstick) Negative (Negative); Leukocyte Moderate (Negative); Nitrite Negative (Negative); Protein, Urine (Dipstick) Negative (Neg-Trace); Specific Gravity, Urine 1.013 (1.002-1.036); Urobilinogen 0.2 mg/dL (0.2-1.0)
[2018-01-08 08:43] LABS: Hyaline Casts/LPF 0-3 HYALINE CAST LPF (0-3 Hyaline); Pathc Cast-AUWi Flag 0.14 (0-2.49); Squamous Epithelial 0-3 HPF (0-3)
[2018-01-08 08:44] LABS: Yeast-AUWi Flag 182.5 (0-25.0)
[2018-01-08 09:05] LABS: Yeast-All Forms 2+ HPF (None Seen)
[2018-01-08 09:06] LABS: Bacteria/HPF Rare-Few HPF (None Seen); RBC/HPF None Seen HPF (0-3); Renal Epithelial 0-3 HPF (0-3); Transitional Epithelial NONE SEEN HPF (0-3)
[2018-01-08] MEDS ORDERED: ISOVUE-370 76%-LOCM 1 ML ONE (09:20)
[2018-01-08] MEDS ORDERED: HYDROcodone/Acetaminophen 10/325 mg Tablet ONE (09:24)
--- NOTE | 2018-01-08 09:30 | RAD ---
CHEST 1 VIEW: HISTORY: Chest pain. COMPARISON: Chest radiograph 01/02/18. FINDINGS: There is mild improved aeration in the right lower lobe. The left lower lobe airspace opacity persis ts. No pneumothorax. Cardiac silhouette and mediastinal contours are similar. No acute osseous abnormality. Severe degen erative change of the left shoulder. IMPRESSION: Similar appearance of the left lower lobe infiltrate and small effusion, although mild interval impro vement of aeration right lower lobe. Continued followup recommended. POS: ANGELA
[2018-01-08] MEDS ORDERED: Potassium Chloride 20 MEQ TAB ONE (11:01)
[2018-01-08] MEDS ORDERED: Furosemide 20 MG/2 ML VIAL ONE (11:01)
--- NOTE | 2018-01-08 11:23 | CT ---
CTA THORAX WITH CONTRAST: (Computed Tomographic Angiography, chest(noncoronary) with contrast material, and image post processi ng) (PE protocol) DATE: 01/08/18. HISTORY: A 77-year-old female with chest pain, cough, and chest congestion. TECHNIQUE: IV injection of iodinated contrast: Isovue. Scan acquisition timing attempted to coincide with iodinated contrast bolus reaching maximal density in pulmonary arteries. 3D MIP reconstructions. FINDINGS: There is cardiomegaly. Ectasia of the ascending aorta to a caliber of approximately 4.5 cm. Dilatio n of the pulmonic trunk, left and right main pulmonary arteries, and their branches. No pulmonary th romboembolism identified to the first and second order branches of the left and right main pulmonary arteries. Peripheral branches are difficult to visualize because of body habitus and hypoinflated diana ngs. Ground-glass changes heterogeneously distribute in the bilateral upper lobes, and to a lesser d egree bilateral lower lobes and right middle lobe. No pleural effusion or pneumothorax. No thoracic aortic dissection or rupture. Trachea is narrowed in the anteroposterior dimension. The proximal a spect of the right mainstem bronchus is very narrow. IMPRESSION: 1. Tracheobronchomalacia causing narrowing of airways, worst in the right proximal mainstem bronchus in which the narrowing is severe. 2. Nonspecific ground-glass changes in the lungs heterogeneously distributed, mostly in the upper lo bes. This is nonspecific, but one possibility is mild pulmonary interstitial edema. 3. Cardiomegaly. 4. Dilation of pulmonary arteries and branches, raising the possibility of pulmonary arterial hypert ension. 5. Ectasia of ascending thoracic aorta. 6. No pulmonary thromboembolism identified. alvarez[] POS: SONIDO
== END 2018-01-08 12:20 | disposition home or self-care (01) ==
LOC: ERS 07:01
DX: R05 Cough (principal); N39.0 Urinary tract infection, site not specified; I11.0 Hypertensive heart disease with heart failure; I50.9 Heart failure, unspecified; E78.5 Hyperlipidemia, unspecified; K21.9 Gastro-esophageal reflux disease without esophagitis; M19.90 Unspecified osteoarthritis, unspecified site; G89.29 Other chronic pain; K58.9 Irritable bowel syndrome, unspecified; E03.9 Hypothyroidism, unspecified; Z79.899 Other long term (current) drug therapy; Z79.891 Long term (current) use of opiate analgesic
CPT/HCPCS: 36415; 51701; 71045; 71275; 80053; 81003; 81015; 82553; 83735; 83880; 84484; 85025; 85379; 87086; 93005; 96374; A4353; J1940; J7620

== ENCOUNTER 2018-01-22 19:14 | Inpatient (IN) | payer MEDICARE ==
[2018-01-22 19:52] LABS: #Basophils 0.1 thou/uL (0.0-0.2); #Eosinphils 0.8 thou/uL (0.0-0.7); #Lymphocytes 2.2 thou/uL (1.20-3.40); #Monocytes 0.8 thou/uL (0.11-0.59); #Neutrophils 7.4 thou/uL (1.40-6.50); %Basophils 0.8 % (0.0-1.0); %Eosinophils 7.1 % (0.0-10.0); %Lymphocytes 19.6 % (21.0-51.0); %Monocytes 7.3 % (0.0-10.0); %Neutrophils 65.2 % (42.0-75.0); Hemoglobin 12.1 g/dL (12.0-16.0); Mean Corpuscular HGB CONC 32.7 g/dL (32.0-36.0); Mean Corpuscular Hemoglobin 30.1 pg (27.0-31.0); Platelet Count 300 thou/uL (130-400); RBC Distribution Width 12.8 % (11.5-14.5); Red Blood Cell (RBC) Count 4.03 mill/uL (4.20-5.40); White Blood Cell (WBC) Count 11.3 thou/uL (4.8-10.8)
[2018-01-22 20:13] LABS: ALT (SGPT) 12 U/L (8-55); AST (SGOT) 20 U/L (5-34); Albumin 3.8 g/dL (3.4-4.8); Alkaline Phosphatase 133 U/L (40-150); Anion Gap 18 mmol/L (10-20); BUN (Urea Nitrogen) 24 mg/dL (9.8-20.1); Bilirubin, Total 0.3 mg/dL (0.2-1.2); Calc. Creatinine Clearance 0 mL/min (70-130); Calcium 9.5 mg/dL (7.8-10.44); Carbon Dioxide 21 mmol/L (23-31); Chloride 106 mmol/L (98-107); Estimated GFR-MDRD 29; Globulin 3.4 g/dL (2.4-3.5); Glucose 115 mg/dL (83-110); Potassium 4.6 mmol/L (3.5-5.1); Protein, Total 7.2 g/dL (6.0-8.3); Sodium 140 mmol/L (136-145)
[2018-01-22 22:34] LABS: Bilirubin Negative (Negative); Blood, Urine Small (Negative); Clarity CLOUDY (Clear); Glucose, Urine (Dipstick) Negative (Negative); Leukocyte Large (Negative); Nitrite Positive (Negative); Protein, Urine (Dipstick) 30 mg/dL (Neg-Trace); Specific Gravity, Urine 1.013 (1.002-1.036); Urobilinogen 0.2 mg/dL (0.2-1.0); pH, Urine 5.5 (5.0-9.0)
[2018-01-22 22:36] LABS: Bacteria/HPF 2+ HPF (None Seen); Hyaline Casts/LPF 0-3 HYALINE CAST LPF (0-3 Hyaline); Pathc Cast-AUWi Flag 0.43 (0-2.49); Squamous Epithelial None Seen HPF (0-3)
--- NOTE | 2018-01-22 22:49 | RAD ---
SINGLE VIEW OF THE CHEST: Comparison: 01-17-18 History: Low blood pressure, chest pain. FINDINGS: Single view of the chest shows an enlarged but stable cardiomediastinal silhouette. There is obscurit y of the left hemidiaphragm which is likely reflective of the patient's cardiomegaly. There is no may dence of consolidation, mass, or pleural effusion. Degenerative changes are seen in the spine. IMPRESSION: No evidence of acute cardiopulmonary disease. POS: [facility]
[2018-01-22 23:04] LABS: CK (CPK) 22 U/L (29-168); Lipase 9 U/L (8-78)
[2018-01-22 23:09] LABS: CKMB 0.7 ng/mL (0-6.6); Troponin I Less than 0.010 ng/mL (< 0.028)
[2018-01-23] MEDS ORDERED: cefTRIAXone\\ROCEPHIN 2 GM VIAL ONE (00:01)
[2018-01-23] MEDS ORDERED: Meropenem 1 GM in Sodium Chloride 0.9% 100 ML IVPB SCH (00:30)
[2018-01-23] MEDS ORDERED: Ondansetron ODT 4 MG TAB PO PRN (01:52)
[2018-01-23] MEDS ORDERED: Acetaminophen 325 MG TAB PO PRN (01:52)
[2018-01-23] MEDS ORDERED: Ondansetron HCl/PF 4 MG/2 ML Vial IVP PRN (01:52)
[2018-01-23] MEDS ORDERED: HYDROcodone/Acetaminophen 5/325 mg Tablet PO PRN (01:52)
[2018-01-23] MEDS: Sodium Chloride 0.9% 1,000 ML IV SCH ×3 (02:23→20:01)
[2018-01-23 02:28] LABS: #Eosinphils 0.6 thou/uL (0.0-0.7); #Lymphocytes 1.7 thou/uL (1.20-3.40); #Monocytes 0.6 thou/uL (0.11-0.59); #Neutrophils 8.2 thou/uL (1.40-6.50); %Basophils 0.4 % (0.0-1.0); %Eosinophils 5.6 % (0.0-10.0); %Lymphocytes 14.9 % (21.0-51.0); %Monocytes 5.4 % (0.0-10.0); %Neutrophils 73.8 % (42.0-75.0); Hemoglobin 11.9 g/dL (12.0-16.0); Mean Corpuscular HGB CONC 32.6 g/dL (32.0-36.0); Mean Corpuscular Hemoglobin 29.7 pg (27.0-31.0); Platelet Count 315 thou/uL (130-400); RBC Distribution Width 12.6 % (11.5-14.5); Red Blood Cell (RBC) Count 4.02 mill/uL (4.20-5.40); White Blood Cell (WBC) Count 11.1 thou/uL (4.8-10.8)
[2018-01-23 02:52] LABS: CKMB 0.6 ng/mL (0-6.6); Troponin I Less than 0.010 ng/mL (< 0.028)
[2018-01-23 03:05] VITALS: BMI 32.3
[2018-01-23 03:13] LABS: Anion Gap 15 mmol/L (10-20); BUN (Urea Nitrogen) 24 mg/dL (9.8-20.1); Calc. Creatinine Clearance 43 mL/min (70-130); Calcium 9.6 mg/dL (7.8-10.44); Carbon Dioxide 25 mmol/L (23-31); Chloride 107 mmol/L (98-107); Estimated GFR-MDRD 33; Glucose 118 mg/dL (83-110); Potassium 4.7 mmol/L (3.5-5.1); Sodium 142 mmol/L (136-145)
--- NOTE | 2018-01-23 04:30 | HP ---
DATE OF ADMISSION: 01/23/2018 PRIMARY CARE PHYSICIAN: Listed as Dr. Deepak Ricardo. TIME OF SERVICE: 0030. CHIEF COMPLAINT: Low blood pressure. HISTORY OF PRESENT ILLNESS: Ms. Santizo is a 77-year-old female well known to me from previous admi ssion. I saw her back in 12/2017 and discharged her on 12/23/2017 to the [facility] after an extended sta y for sepsis secondary to Clostridium difficile colitis, healthcare-associated pneumonia, acute hypox emic respiratory failure. She was here for about 10 days and was discharged to the [facility] on 12/23/2017. She was there for about 4 weeks and was brought home about 3 days ago. Since that time instead of ge tting stronger like she has done in the past, she got progressively weaker and today, her not ed that her blood pressure was staying low. He called EMS, she was brought to the emergency departme for evaluation. Workup here showed to have a slightly elevated white count, blood pressure on arrival was actually el evated at 168/72, but her pulse was elevated in the high 90s to 110s. Workup showed a slightly eleva ny white blood cell count and abnormal urinalysis, and we were subsequently called for admit. On my evaluation, patient was having active chills and rigors in the room. She has been afebrile wit h a T-max in the emergency department 99.2. She denies any chest pain or difficulty breathing. No n ausea, vomiting, no diarrhea or constipation, she has had no fevers that she has documented, but does feel chilled right now. She denies any hematuria or dysuria. PAST MEDICAL HISTORY: 1. Hypertension. 2. Hyperlipidemia. 3. Chronic atrial fibrillation. 4. Hypothyroidism. 5. Anxiety and depression. 6. Chronic obstructive pulmonary disease. 7. Gastroesophageal reflux disease. PAST SURGICAL HISTORY: 1. Hysterectomy. 2. Appendectomy. 3. Back surgery. 4. Cholecystectomy. ALLERGIES: 1. AMOXICILLIN. 2. CIPRO, which she has tolerated recently. ERYTHROMYCIN, FENTANYL, METOLAZONE, NABUMETONE, OXYCODO NE, and SULFA. MEDICATIONS: 1. Albuterol sulfate 2.5 mg nebulizer every 2 hours as needed. 2. DuoNeb 3 mL q.6 hours as scheduled. 3. Lisinopril 5 mg daily. 4. Metoprolol 25 mg p.o. b.i.d. 5. Pantoprazole 40 mg daily. 6. Valsartan 320 mg daily. 7. Vancomycin. She recently finished after her course of Clostridium difficile. 8. Fluoxetine 20 mg daily. 9. Atorvastatin 10 mg p.o. at bedtime. 10. Amlodipine 10 mg daily. 11. Levothyroxine 125 mcg daily. 12. Tolterodine 4 mg p.o. daily. 13. Beclomethasone 1 puff inhaled b.i.d. 14. Xanax 0.25 mg p.o. at bedtime. 15. Vitamin C daily. 16. Cholecalciferol 2000 units daily. 17. Lasix 20 mg daily as needed for increased swelling. 18. Hydrocodone and acetaminophen 10/325 one q.4 hours p.r.n. 19. Meloxicam 15 mg daily. 20. Multivitamin daily. 21. Potassium chloride 10 mEq p.o. daily when taking Lasix. 22. Zantac 75 mg p.o. at bedtime. 23. Gabapentin 600 mg p.o. b.i.d. and 800 mg p.o. every noon. SOCIAL HISTORY: Negative for habits x3. She is . accompanies her. She has been in rehab until about 3 days ago. FAMILY HISTORY: Negative for clotting or bleeding disorder, no immune dysfunction. REVIEW OF SYSTEMS: A 10-point review of systems was performed, negative for all systems except as pe r HPI. PHYSICAL EXAMINATION: VITAL SIGNS: Current temperature is 99.2, pulse 106, blood pressure 109/56, respiratory rate 23, sat urating 94% on 2 liters nasal cannula. While it is at 98 turn her down. She was still satting 95% o n 0.5 liters nasal cannula. Per report, she was down to 87 on room air. GENERAL: She is awake. She is alert. She is oriented x3. She is chronically ill-appearing, overwe ight white female. She is having active chills are present, but otherwise not looking to be in acute distress. HEENT: Normocephalic, atraumatic. Pupils are equal, round, reactive to light bilaterally, mucous me mbranes are moist. No visible lesions or thrush. NECK: Supple. I did not appreciate any lymphadenopathy, JVD, or thyromegaly. LUNGS: Clear. She has good air movement and symmetrical chest excursion. CARDIOVASCULAR: She is tachycardic and irregularly irregular. She has no audible murmurs at present . ABDOMEN: Soft, nontender, nondistended. No suprapubic tenderness. She has good bowel sounds in all 4 quadrants. EXTREMITIES: Show edema in the bilateral lower extremities and bilateral upper extremities about 2+ distally. SKIN: Shows ecchymosis diffusely, but no other skin lesions. No rashes. MUSCULOSKELETAL: Normal to inspection. Large joints appeared normal. There is no inflammation or p alpable effusions. NEUROLOGIC: Cranial nerves II-XII are grossly intact. She has no focal deficits there. She has radha bal weakness. It seems on the right more than left, but she does have a global approximately 3/5 str ength in all 4 extremities. LABORATORY EVALUATION: White blood cell count is 11.3, which is improved from discharge, hemoglobin 12.1, hematocrit 37.1, and platelet count is 300,000. She has a fairly normal differential. There i s no bands. Chemistry profile shows sodium of 140, potassium 4.6, chloride 106, bicarbonate 21, BUN 24, creatinine 1.7, which is up from her baseline 0.98. BUN is also doubled from discharge. Lactic acid was normal at 1.4. Total bilirubin 0.3, AST of 20, ALT of 12, and alkaline phosphatase of 133. Total CK of 22, CK-MB normal at 0.7, troponin I is undetectable less than 0.010. Urinalysis showed 30 protein, small blood, positive nitrite, large leukocyte esterase, too numerous t o count white blood cells, 2+ bacteria, and no squamous epithelial cells. RADIOGRAPHIC STUDIES: Chest x-ray in the emergency department showed no evidence of acute cardiopulm onary disease. ASSESSMENT AND PLAN: 1. Urinary tract infection, cystitis with small amount of blood. The symptom that certainly is abno rmal and different from her last stay. 2. Sepsis: She has elevated heart rate, low blood pressure, elevated white blood cell count and as bacterial source in the urine. Placed on Rocephin and IV fluids. 3. Physical deconditioning. PT, OT evaluation. We will need placement of long-term as albert ot care for her at present. 4. Obesity. 5. Hypertension. 6. Hypothyroidism. I will hold her home blood pressure medicine and continue thyroid medications. 7. Acute kidney injury: Creatinine 1.70, was 0.98 on discharge. We will hydrate and check labs in the morning. 8. Chronic obstructive pulmonary disease without acute exacerbation. 9. Gastroesophageal reflux disease.
[2018-01-23] MEDS: Famotidine 20 MG TAB PO SCH (09:19)
[2018-01-23] MEDS: Meropenem 500 MG in Sodium Chloride 0.9% 100 ML IVPB SCH ×2 (09:19→16:19)
[2018-01-23 10:28] LABS: CKMB 0.7 ng/mL (0-6.6); Troponin I Less than 0.010 ng/mL (< 0.028)
[2018-01-23] MEDS ORDERED: Albuterol Sulfate 2.5 mg/3 ml Neb NEB PRN (10:33)
[2018-01-23] MEDS ORDERED: PROVENTIL INHALER 6.7 G (200 INHALATIONS) INH PRN (10:33)
--- NOTE | 2018-01-23 10:46 | PDOC.PN ---
- Subjective Encounter Start Date: 01/23/18 Encounter Start Time: 10:40 Subjective: f/u for suspected sepsis of urinary source on Meropenem. Cx pending. -: Pt feels weak and tired but no SOB, CP. Eating ok. - Objective Resuscitation Status: Resuscitation Status DNR:Do Not Resuscitate MAR Reviewed: Yes Vital Signs & Weight: Vital Signs (12 hours) Temp Pulse Resp BP Pulse Ox 01/23/18 09:30 98.7 F 110 H 22 H 91 L 01/23/18 08:00 98.7 F 110 H 22 H 162/80 H 01/23/18 04:41 98.8 F 112 H 20 158/77 H 90 L 01/23/18 02:10 98.1 F 108 H 20 92 L 01/23/18 02:00 98.1 F 108 H 20 136/86 92 L Weight Weight 194 lb 3.2 oz I&O: 01/22/18 01/23/18 01/24/18 06:59 06:59 06:59 Intake Total 701 Balance 701 Result Diagrams: 01/23/18 02:09 01/23/18 02:09 Additional Labs: Laboratory Tests 01/22/18 01/22/18 01/22/18 19:42 19:42 22:36 WBC 11.3 H Creatinine 1.70 H Lactic Acid 1.4 Magnesium Troponin I 01/22/18 01/23/18 01/23/18 22:36 02:09 02:09 WBC Creatinine Lactic Acid Magnesium 2.0 Troponin I Less than 0.010 Less than 0.010 01/23/18 09:50 WBC Creatinine Lactic Acid Magnesium Troponin I Less than 0.010 Radiology Reviewed by me: Yes (PCXR - no acute infiltrates) Phys Exam - Physical Examination Constitutional: NAD alert, responsive, tired appearing HEENT: PERRLA, moist MMs, oral pharynx no lesions Neck: no nodes, no JVD, supple Respiratory: no wheezing, no rales, no rhonchi, clear to auscultation bilateral tachycardic Cardiovascular: no significant murmur, no rub Gastrointestinal: soft, non-tender, no distention, positive bowel sounds Musculoskeletal: pulses present, edema present strength 3/5 in all extremities Neurological: normal sensation, moves all 4 limbs Psychiatric: normal affect, A&O x 3 Deviation from normal: + ecchymosis on skin surface of extremities Skin: normal turgor, cap refill <2 seconds Dx/Plan (1) Sepsis Code(s): A41.9 - SEPSIS, UNSPECIFIED ORGANISM Status: Acute Qualifiers: Sepsis type: sepsis due to unspecified organism Qualified Code(s): A41.9 - Sepsis, unspecified organism Comment: Suspected urinary source, continue Meropenem pending final Ucx and blood cx results, continue supportive mgmt (2) UTI (urinary tract infection) Status: Acute Comment: Suspected pending Ucx results, continue Meropenem (3) NIKI (acute kidney injury) Code(s): N17.9 - ACUTE KIDNEY FAILURE, UNSPECIFIED Status: Acute Comment: Hold nephrotoxic meds and contrast media, hold Lasix and ARB's, continue IVF's and repeat creatinine in am (4) Tachycardia Code(s): R00.0 - TACHYCARDIA, UNSPECIFIED Status: Acute Comment: sinus tachycardia on EKG but hx of A-fib, resume Metoprolol and continue IVF's (5) Hypertension Code(s): I10 - ESSENTIAL (PRIMARY) HYPERTENSION Status: Chronic Qualifiers: Hypertension type: essential hypertension Qualified Code(s): I10 - Essential (primary) hypertension Comment: Resume Norvasc and Metoprolol, hold ARB currently due to NIKI, monitor BP trend - Plan continue antibiotics, PT/OT, social science instructor, DVT proph w/SCDs Stable overall -: Continue Meropenem IV -: Await final Ucx and blood cx results -: PT/OT for functional assessment -: Likely may need custodial placement given recurrent readmissions * AM lab: BMP, CBC
[2018-01-23] MEDS ORDERED: Metoprolol Tartrate 25 MG TAB PO SCH (12:00)
[2018-01-23] MEDS: HYDROcodone/Acetaminophen 10/325 mg Tablet PO PRN ×2 (14:06→20:03)
[2018-01-23] MEDS: Gabapentin 400 MG CAP PO SCH ×2 (16:18→20:03)
[2018-01-23] MEDS ORDERED: GABAPENTIN 1600 MG PO SCH (17:00)
[2018-01-23] MEDS: TROSPIUM 20 MG TABLET PO SCH (20:03)
[2018-01-23] MEDS: ALPRAZolam 0.25 MG TAB PO SCH (20:05)
[2018-01-23] MEDS ORDERED: Non-Formulary Item 1 EACH (Gabapentin [Gabapentin] 800 MG) PO SCH (21:00)
[2018-01-24] MEDS: Meropenem 500 MG in Sodium Chloride 0.9% 100 ML IVPB SCH ×3 (00:08→15:50)
[2018-01-24] MEDS: Sodium Chloride 0.9% 1,000 ML IV SCH ×3 (05:04→14:08)
[2018-01-24 05:08] LABS: Anion Gap 11 mmol/L (10-20); BUN (Urea Nitrogen) 11 mg/dL (9.8-20.1); Calc. Creatinine Clearance 78 mL/min (70-130); Calcium 8.3 mg/dL (7.8-10.44); Carbon Dioxide 23 mmol/L (23-31); Chloride 109 mmol/L (98-107); Estimated GFR-MDRD 66; Glucose 91 mg/dL (83-110); Magnesium 1.6 mg/dL (1.6-2.6); Potassium 3.3 mmol/L (3.5-5.1); Sodium 140 mmol/L (136-145)
[2018-01-24 05:17] LABS: Hemoglobin 10.6 g/dL (12.0-16.0); Mean Corpuscular HGB CONC 32.7 g/dL (32.0-36.0); Mean Corpuscular Hemoglobin 30.1 pg (27.0-31.0); Mean Platelet Volume 6.9 fL (7.4-10.4); Platelet Count 287 thou/uL (130-400); RBC Distribution Width 12.7 % (11.5-14.5); Red Blood Cell (RBC) Count 3.51 mill/uL (4.20-5.40); White Blood Cell (WBC) Count 6.7 thou/uL (4.8-10.8)
[2018-01-24 05:18] LABS: Band 2 % (5-11); Eosinophils 4 % (0-10); Lymphocytes 34 % (21-51); MDiff Complete? YES; Monocytes 5 % (0-10); Neutrophil 55 % (42-75)
[2018-01-24] MEDS: Gabapentin 400 MG CAP PO SCH ×3 (08:12→21:09)
[2018-01-24] MEDS: TROSPIUM 20 MG TABLET PO SCH ×2 (08:13→21:13)
[2018-01-24] MEDS: Meloxicam 15 MG TAB PO SCH (08:13)
[2018-01-24] MEDS: Metoprolol Tartrate 25 MG TAB PO SCH (08:13)
[2018-01-24] MEDS: Levothyroxine Sodium 125 MCG TAB PO SCH (08:13)
[2018-01-24] MEDS: FLUoxetine HCl 20 MG CAP PO SCH (08:13)
[2018-01-24] MEDS: Multivit, Therapeutic 1 TAB PO SCH (08:13)
[2018-01-24] MEDS: Amlodipine 10 MG TAB PO SCH (08:13)
[2018-01-24] MEDS: Famotidine 20 MG TAB PO SCH (08:42)
[2018-01-24] MEDS ORDERED: Non-Formulary Item 1 EACH (Fluoxetine Hcl [Fluoxetine Hcl] 20 MG) PO SCH (09:00)
[2018-01-24] MEDS ORDERED: Non-Formulary Item 1 EACH (Cholecalciferol (Vitamin D3) [Vitamin D3] 2,000 UNIT) PO SCH (09:00)
[2018-01-24] MEDS ORDERED: Non-Formulary Item 1 EACH (Multivitamin/Iron/Folic Acid [Centrum Adults Tablet] 1 EACH) PO SCH (09:00)
[2018-01-24] MEDS ORDERED: Tolterodine Tartrate LA 4 MG CAP PO SCH (09:00)
[2018-01-24] MEDS: HYDROcodone/Acetaminophen 10/325 mg Tablet PO PRN ×2 (11:12→15:53)
--- NOTE | 2018-01-24 13:08 | PDOC.PN ---
- Subjective Encounter Start Date: 01/24/18 Encounter Start Time: 13:00 Subjective: f/u for suspected sepsis from urinary source. Developed diarrhea in last -: 24h with c. diff antigen positive. Previously tx for c. diff 4 weeks prior -: with Vancomycin. - Objective Resuscitation Status: Resuscitation Status DNR:Do Not Resuscitate MAR Reviewed: Yes Vital Signs & Weight: Vital Signs (12 hours) Temp Pulse Resp BP BP Pulse Ox 01/24/18 08:42 98.4 F 94 20 160/90 H 95 01/24/18 08:13 93 160/90 H 01/24/18 08:00 98.4 F 94 20 01/24/18 06:19 20 94 L 01/24/18 05:54 98.3 F 90 20 155/91 H 94 L Weight Weight 194 lb 3.2 oz I&O: 01/23/18 01/24/18 01/25/18 06:59 06:59 06:59 Intake Total 701 3692 240 Balance 701 3692 240 Result Diagrams: 01/24/18 03:59 01/24/18 03:59 Additional Labs: Microbiology 01/23/18 15:00 Stool C. difficile GDH Antigen & Toxins - Final 01/23/18 15:00 Stool Clostridium difficile Toxin A&B PCR - Final 01/23/18 00:17 Venous blood - Right Hand Blood Culture - Preliminary Specimen has been received and culture in progress. No Growth to date. 01/22/18 22:27 Venous blood - Right Arm Blood Culture - Preliminary Specimen has been received and culture in progress. No Growth to date. Laboratory Tests 01/22/18 01/22/18 01/22/18 19:42 19:42 22:36 WBC 11.3 H Potassium Creatinine 1.70 H Lactic Acid 1.4 Magnesium Troponin I 01/22/18 01/23/18 01/23/18 22:36 02:09 02:09 WBC Potassium 4.7 Creatinine Lactic Acid Magnesium 2.0 Troponin I Less than 0.010 Less than 0.010 01/23/18 01/23/18 02:09 09:50 WBC 11.1 H Potassium Creatinine Lactic Acid Magnesium Troponin I Less than 0.010 Phys Exam - Physical Examination Constitutional: NAD alert, responds to questions HEENT: PERRLA, moist MMs, sclera anicteric, oral pharynx no lesions Neck: no nodes, no JVD, supple Respiratory: no wheezing, no rales, no rhonchi, clear to auscultation bilateral Cardiovascular: RRR, no significant murmur, no rub, gallop Gastrointestinal: soft, non-tender, no distention, positive bowel sounds Musculoskeletal: pulses present, edema present 3/5 strength in all extremities Neurological: non-focal, normal sensation, moves all 4 limbs Psychiatric: normal affect, A&O x 3 Skin: no rash, normal turgor, cap refill <2 seconds Dx/Plan (1) Sepsis Code(s): A41.9 - SEPSIS, UNSPECIFIED ORGANISM Status: Acute Qualifiers: Sepsis type: sepsis due to unspecified organism Qualified Code(s): A41.9 - Sepsis, unspecified organism Comment: Suspected urinary source, continue Meropenem pending final Ucx and blood cx results, continue supportive mgmt, potential source of GI tract with c. difficile antigen positive (2) UTI (urinary tract infection) Status: Acute Comment: Suspected pending Ucx results, continue Meropenem another 24h (3) NIKI (acute kidney injury) Code(s): N17.9 - ACUTE KIDNEY FAILURE, UNSPECIFIED Status: Acute Comment: Hold nephrotoxic meds and contrast media, hold Lasix and ARB's, continue IVF's and repeat creatinine in am (4) Clostridium difficile diarrhea Code(s): A04.72 - ENTEROCOLITIS D/T CLOSTRIDIUM DIFFICILE, NOT SPCF RECUR Status: Acute Comment: Start Vancomycin 250mg po QID, antigen +, prior tx 4 weeks prior to this evaluation, start Florastor 250mg daily (5) Tachycardia Code(s): R00.0 - TACHYCARDIA, UNSPECIFIED Status: Acute Comment: sinus tachycardia on EKG but hx of A-fib, resume Metoprolol and continue IVF's, improved (6) Hypertension Code(s): I10 - ESSENTIAL (PRIMARY) HYPERTENSION Status: Chronic Qualifiers: Hypertension type: essential hypertension Qualified Code(s): I10 - Essential (primary) hypertension Comment: Resume Norvasc and Metoprolol, hold ARB currently due to NIKI, monitor BP trend - Plan continue antibiotics, PT/OT, social worker assistant Stable currently -: Start Vancomycin 250mg po QID -: Continue Meropenem another 24h then de-escalate -: Decrease IVF 75ml/h -: KCL 40meq BID * Start Florastor 250mg daily * AM lab: BMP
[2018-01-24] MEDS: Saccharomyces boulardii 250 MG CAP PO SCH (14:07)
[2018-01-24] MEDS: ALPRAZolam 0.25 MG TAB PO SCH (21:09)
[2018-01-25] MEDS: Meropenem 500 MG in Sodium Chloride 0.9% 100 ML IVPB SCH ×3 (01:25→17:28)
[2018-01-25] MEDS: Sodium Chloride 0.9% 1,000 ML IV SCH ×2 (01:26→15:35)
[2018-01-25] MEDS: TROSPIUM 20 MG TABLET PO SCH ×2 (09:35→20:15)
[2018-01-25] MEDS: Famotidine 20 MG TAB PO SCH (09:35)
[2018-01-25] MEDS: Multivit, Therapeutic 1 TAB PO SCH (09:35)
[2018-01-25] MEDS: Gabapentin 400 MG CAP PO SCH ×3 (09:37→20:15)
[2018-01-25] MEDS: Amlodipine 10 MG TAB PO SCH (10:01)
[2018-01-25] MEDS: FLUoxetine HCl 20 MG CAP PO SCH (10:01)
[2018-01-25] MEDS: Metoprolol Tartrate 25 MG TAB PO SCH (10:02)
[2018-01-25] MEDS: Meloxicam 15 MG TAB PO SCH (10:02)
[2018-01-25] MEDS: Saccharomyces boulardii 250 MG CAP PO SCH (14:06)
[2018-01-25] MEDS: Levothyroxine Sodium 125 MCG TAB PO SCH (14:06)
--- NOTE | 2018-01-25 15:48 | PDOC.PN ---
- Subjective Encounter Start Date: 01/25/18 Encounter Start Time: 15:35 Subjective: f/u for sepsis from suspected urinary and GI source with C. diff antigen + -: receiving Meropenem and Vancomycin po.. Still has few loose stools but -: overall improved. Feels better overall but weak. - Objective Resuscitation Status: Resuscitation Status DNR:Do Not Resuscitate MAR Reviewed: Yes Vital Signs & Weight: Vital Signs (12 hours) Pulse BP 01/25/18 10:01 92 185/95 H Weight Weight 194 lb 3.2 oz I&O: 01/24/18 01/25/18 01/26/18 06:59 06:59 06:59 Intake Total 3692 4278 Balance 3692 4278 Result Diagrams: 01/24/18 03:59 01/24/18 03:59 Additional Labs: Microbiology 01/23/18 15:00 Stool C. difficile GDH Antigen & Toxins - Final 01/23/18 15:00 Stool Clostridium difficile Toxin A&B PCR - Final 01/23/18 00:17 Venous blood - Right Hand Blood Culture - Preliminary Specimen has been received and culture in progress. No Growth to date. 01/22/18 22:27 Venous blood - Right Arm Blood Culture - Preliminary Specimen has been received and culture in progress. No Growth to date. Laboratory Tests 01/22/18 01/22/18 01/22/18 19:42 19:42 22:36 WBC 11.3 H Potassium Creatinine 1.70 H Lactic Acid 1.4 Magnesium Troponin I 01/22/18 01/23/18 01/23/18 22:36 02:09 02:09 WBC Potassium 4.7 Creatinine Lactic Acid Magnesium 2.0 Troponin I Less than 0.010 Less than 0.010 01/23/18 01/23/18 02:09 09:50 WBC 11.1 H Potassium Creatinine Lactic Acid Magnesium Troponin I Less than 0.010 Phys Exam - Physical Examination Constitutional: NAD alert, talkative HEENT: PERRLA, moist MMs, sclera anicteric, oral pharynx no lesions Neck: no nodes, no JVD, supple Respiratory: no wheezing, no rales, no rhonchi, clear to auscultation bilateral Cardiovascular: RRR, no significant murmur, no rub, gallop Gastrointestinal: soft, non-tender, no distention, positive bowel sounds mild LE edema Musculoskeletal: pulses present Neurological: non-focal, moves all 4 limbs Psychiatric: normal affect, A&O x 3 Skin: no rash, normal turgor, cap refill <2 seconds Dx/Plan (1) Sepsis Code(s): A41.9 - SEPSIS, UNSPECIFIED ORGANISM Status: Acute Qualifiers: Sepsis type: sepsis due to unspecified organism Qualified Code(s): A41.9 - Sepsis, unspecified organism Comment: Suspected urinary source and component of GI, continue Meropenem another 24h then d/c, continue supportive mgmt, potential source of GI tract with c. difficile antigen positive (2) UTI (urinary tract infection) Status: Acute Comment: Suspected but no Ucx results available, continue Meropenem another 24h (3) NIKI (acute kidney injury) Code(s): N17.9 - ACUTE KIDNEY FAILURE, UNSPECIFIED Status: Acute Comment: Improved, avoid nephrotoxic meds and contrast media, hold Lasix and ARB's, saline lock IVF's and repeat creatinine in am (4) Clostridium difficile diarrhea Code(s): A04.72 - ENTEROCOLITIS D/T CLOSTRIDIUM DIFFICILE, NOT SPCF RECUR Status: Acute Comment: Start Vancomycin 250mg po QID, antigen +, prior tx 4 weeks prior to this evaluation, start Florastor 250mg daily (5) Tachycardia Code(s): R00.0 - TACHYCARDIA, UNSPECIFIED Status: Acute Comment: sinus tachycardia on EKG but hx of A-fib, resume Metoprolol and continue IVF's, improved (6) Hypertension Code(s): I10 - ESSENTIAL (PRIMARY) HYPERTENSION Status: Chronic Qualifiers: Hypertension type: essential hypertension Qualified Code(s): I10 - Essential (primary) hypertension Comment: Resume Norvasc and Metoprolol, hold ARB currently due to NIKI, monitor BP trend - Plan continue antibiotics, PT/OT, social worker aide Stable overall -: Saline lock IVF -: Continue Meropenem another 24h then d/c -: Continue Vancomycin 250mg po QID -: Continue Florastor 250mg po daily * CM for SNF/Rehab options * KCL 40meq po x 1 dose today
[2018-01-25] MEDS ORDERED: Vancomycin HCl 25 MG/ML Oral PO SCH ×2 (16:00→21:00)
[2018-01-25] MEDS ORDERED: Potassium Chloride 20 MEQ TAB PO SCH (17:00)
[2018-01-25] MEDS: Vancomycin HCl 25 MG/ML Oral PO SCH ×2 (17:34→20:18)
[2018-01-25] MEDS: HYDROcodone/Acetaminophen 10/325 mg Tablet PO PRN (20:14)
[2018-01-25] MEDS: ALPRAZolam 0.25 MG TAB PO SCH (20:15)
[2018-01-26] MEDS: Meropenem 500 MG in Sodium Chloride 0.9% 100 ML IVPB SCH ×2 (01:39→09:04)
[2018-01-26] MEDS: FLUoxetine HCl 20 MG CAP PO SCH (09:04)
[2018-01-26] MEDS: Meloxicam 15 MG TAB PO SCH (09:04)
[2018-01-26] MEDS: Vancomycin HCl 25 MG/ML Oral PO SCH ×4 (09:04→21:39)
[2018-01-26] MEDS: Multivit, Therapeutic 1 TAB PO SCH (09:04)
[2018-01-26] MEDS: TROSPIUM 20 MG TABLET PO SCH ×2 (09:04→21:39)
[2018-01-26] MEDS: Famotidine 20 MG TAB PO SCH (09:04)
[2018-01-26] MEDS: Levothyroxine Sodium 125 MCG TAB PO SCH (09:05)
[2018-01-26] MEDS: Metoprolol Tartrate 25 MG TAB PO SCH (09:05)
[2018-01-26] MEDS: Amlodipine 10 MG TAB PO SCH (09:05)
[2018-01-26] MEDS: Gabapentin 400 MG CAP PO SCH ×3 (09:11→21:39)
[2018-01-26] MEDS: HYDROcodone/Acetaminophen 10/325 mg Tablet PO PRN ×2 (10:53→21:38)
--- NOTE | 2018-01-26 11:38 | PDOC.PN ---
- Subjective Encounter Start Date: 01/26/18 Encounter Start Time: 11:25 Subjective: f/u for sepsis from GI and urinary source with c. difficile antigen + -: currently on Vancomycin po and Meropenem. Feeling stronger overall. -: No diarrhea today. - Objective Resuscitation Status: Resuscitation Status DNR:Do Not Resuscitate MAR Reviewed: Yes Vital Signs & Weight: Vital Signs (12 hours) Temp Pulse Resp BP Pulse Ox 01/26/18 08:00 98.0 F 97 20 156/78 H 92 L Weight Weight 194 lb 3.2 oz I&O: 01/25/18 01/26/18 01/27/18 06:59 06:59 06:59 Intake Total 4278 2540 Balance 4278 2540 Result Diagrams: 01/24/18 03:59 01/24/18 03:59 Phys Exam - Physical Examination Constitutional: NAD alert, talkative HEENT: PERRLA, moist MMs, sclera anicteric, oral pharynx no lesions Neck: no nodes, no JVD, supple Respiratory: no wheezing, no rales, no rhonchi, clear to auscultation bilateral Cardiovascular: RRR, no significant murmur, no rub, gallop Gastrointestinal: soft, non-tender, no distention, positive bowel sounds Musculoskeletal: pulses present, edema present Neurological: normal sensation, moves all 4 limbs Psychiatric: normal affect, A&O x 3 Skin: no rash, normal turgor, cap refill <2 seconds Dx/Plan (1) Sepsis Code(s): A41.9 - SEPSIS, UNSPECIFIED ORGANISM Status: Acute Qualifiers: Sepsis type: sepsis due to unspecified organism Qualified Code(s): A41.9 - Sepsis, unspecified organism Comment: Suspected urinary source and component of GI, d/c Meropenem, continue supportive mgmt, potential source of GI tract with c. difficile antigen positive (2) UTI (urinary tract infection) Status: Acute Comment: Suspected but no Ucx results available, d/c Meropenem (3) NIKI (acute kidney injury) Code(s): N17.9 - ACUTE KIDNEY FAILURE, UNSPECIFIED Status: Acute Comment: Improved, avoid nephrotoxic meds and contrast media, hold Lasix and ARB's, saline lock IVF's and repeat creatinine in am (4) Clostridium difficile diarrhea Code(s): A04.72 - ENTEROCOLITIS D/T CLOSTRIDIUM DIFFICILE, NOT SPCF RECUR Status: Acute Comment: Start Vancomycin 250mg po QID, antigen +, prior tx 4 weeks prior to this evaluation, start Florastor 250mg daily (5) Tachycardia Code(s): R00.0 - TACHYCARDIA, UNSPECIFIED Status: Acute Comment: sinus tachycardia on EKG but hx of A-fib, resume Metoprolol, resolved (6) Hypertension Code(s): I10 - ESSENTIAL (PRIMARY) HYPERTENSION Status: Chronic Qualifiers: Hypertension type: essential hypertension Qualified Code(s): I10 - Essential (primary) hypertension Comment: Resume Norvasc and Metoprolol, hold ARB currently due to NIKI, monitor BP trend - Plan plan discussed w/ family, continue antibiotics, PT/OT, social work administrator Stable overall -: CM assisting with SNF options -: Continue Vancomycin 250mg po QID -: D/C Meropenem -: PT for mobilization * Likely d/c in 24-48h to SNF
[2018-01-26] MEDS: Saccharomyces boulardii 250 MG CAP PO SCH (12:45)
[2018-01-26] MEDS: ALPRAZolam 0.25 MG TAB PO SCH (21:39)
[2018-01-27] MEDS: Vancomycin HCl 25 MG/ML Oral PO SCH ×2 (08:57→13:45)
[2018-01-27] MEDS: Famotidine 20 MG TAB PO SCH (08:57)
[2018-01-27] MEDS: Gabapentin 400 MG CAP PO SCH (08:58)
[2018-01-27] MEDS: FLUoxetine HCl 20 MG CAP PO SCH (08:58)
[2018-01-27] MEDS: Metoprolol Tartrate 25 MG TAB PO SCH (08:59)
[2018-01-27] MEDS: TROSPIUM 20 MG TABLET PO SCH (08:59)
[2018-01-27] MEDS: Amlodipine 10 MG TAB PO SCH (09:00)
[2018-01-27] MEDS: Multivit, Therapeutic 1 TAB PO SCH (09:00)
[2018-01-27] MEDS: Meloxicam 15 MG TAB PO SCH (09:00)
[2018-01-27] MEDS: Levothyroxine Sodium 125 MCG TAB PO SCH (09:00)
[2018-01-27] MEDS: HYDROcodone/Acetaminophen 10/325 mg Tablet PO PRN (10:52)
[2018-01-27] MEDS: Saccharomyces boulardii 250 MG CAP PO SCH (13:45)
[2018-01-27 16:53] VITALS: BP 155/81; TEMP 98.4
--- NOTE | 2018-01-27 21:16 | DIS ---
DATE OF ADMISSION: 01/23/2018 DATE OF DISCHARGE: 01/27/2018 DISCHARGE DIAGNOSES: 1. Sepsis secondarily to suspected Clostridium difficile colitis. 2. Urinary tract infection, organism, not identified. 3. Acute kidney injury, iatrogenic, resolved. 4. Clostridium difficile enterocolitis with Clostridium difficile antigen positive. 5. Sinus tachycardia. 6. Hypertension, stable. 7. Deconditioning. CONSULTATIONS: None. PERTINENT LABORATORY DATA AND X-RAY FINDINGS: Creatinine ranged between 0.84-1.70 with estimated GFR ranging between 29-66. Lactic acid level 1.4. Magnesium level 2.0, troponin I negative x2. Lipase 9. CBC showed a white blood cell count ranging between 6.7-11.3. Blood cultures x2 from 01/23/2018 showed no growth at 48 hours. Clostridium difficile antigen positive detected by PCR 01/23/2018. P ortable chest x-ray dated 01/22/2018 showed no acute cardiopulmonary process. HOSPITAL COURSE: Patient was admitted after initially presenting with hypotension after recent [facility] hospital stay for Clostridium difficile colitis and healthcare-associated pneumonia. Patient un derwent extensive evaluation including metabolic screening with concern initially for urinary tract i nfection. Patient was placed on IV meropenem and Rocephin and monitored clinically. Blood culture s howed no growth at 48 hours and no urine culture was available. Patient continued to clinically impr ove with general supportive measures, however, remained severely deconditioned and generally weak. P atient continued to have loose stools and diarrhea with repeat Clostridium difficile testing showing antigen positivity. Patient was resumed on vancomycin 250 mg q.i.d. with current recommendations to continue for 7 days after discharge. Patient was also noted with acute kidney injury, receiving IV f luids, and avoidance of nephrotoxic agents. Patient's renal function returned to baseline levels wit h supportive care and hydration. Due to patient's severely deconditioned state and family unable to care for patient appropriately, patient was deemed an appropriate candidate for ongoing long-term [facility] care. Patient has been approved and will transfer to [facility] in [place], [place] on 2017. At the time of discharge, I examined the patient and discussed laboratory findings, radiologic studies, and discharge planning. At which point, patient verbalized understanding and agreement for plan. Overall, patient clinically stable and ready for discharge. DISCHARGE MEDICATIONS: 1. Tylenol 500 mg p.o. q.6 hours p.r.n. 2. ProAir HFA 2 puffs inhaled q.4 hours p.r.n. 3. Ventolin nebulized solution 2.5 mg nebulized q.4 hours p.r.n. 4. Alprazolam 0.25 mg p.o. at bedtime. 5. Norvasc 10 mg p.o. daily. 6. Vitamin C 500 mg p.o. daily. 7. Lipitor 10 mg p.o. at bedtime. 8. Vitamin D3 of 2000 units p.o. daily. 9. Fluoxetine 20 mg p.o. daily. 10. Gabapentin 1600 mg p.o. b.i.d. and 800 mg p.o. at bedtime. 11. Mucinex 600 mg p.o. b.i.d. p.r.n. 12. [place] 10/325 mg 1 tab p.o. q.4-6 hours p.r.n. 13. DuoNeb 3 mL nebulized q.6 hours p.r.n. 14. Synthroid 125 mcg p.o. daily. 15. Meloxicam 15 mg p.o. daily. 16. Lopressor 25 mg p.o. daily. 17. Multivitamin 1 tab p.o. daily. 18. Protonix 40 mg 1 tab p.o. daily. 19. Klor-Con 10 mEq p.o. daily. 20. Florastor 250 mg p.o. daily. 21. Detrol-LA 4 mg p.o. daily. 22. Diovan 320 mg p.o. daily, may resume on 01/30/2018. 23. Vancomycin 250 mg p.o. q.i.d. until 02/04/2018. FOLLOWUP: Patient may follow up with Dr. Deepak Ricardo at [place], [place]. CONDITION ON DISCHARGE: Fair. ACTIVITY: Ad pat. DIET: Heart-healthy. CODE STATUS: DO NOT RESUSCITATE. DISPOSITION: [place], [place] on 01/27/2018. Total time preparing and coordinating discharge 37 minutes.
== END 2018-01-27 17:03 | DRG 872 ==
LOC: ERS 19:14 → T4-A 01-23 00:05
PROVIDERS: ADMIT Internal Medicine Infectious Disease; ATTEND Internal Medicine Infectious Disease
DX: A41.89 Other specified sepsis (principal); N17.9 Acute kidney failure, unspecified; A04.72 Enterocolitis due to Clostridium difficile, not specified as recurrent; I48.2 Chronic atrial fibrillation; N39.0 Urinary tract infection, site not specified; E66.9 Obesity, unspecified; I10 Essential (primary) hypertension; E03.9 Hypothyroidism, unspecified; J44.9 Chronic obstructive pulmonary disease, unspecified; K21.9 Gastro-esophageal reflux disease without esophagitis; E78.5 Hyperlipidemia, unspecified; F41.9 Anxiety disorder, unspecified; F32.9 Major depressive disorder, single episode, unspecified; Z90.49 Acquired absence of other specified parts of digestive tract; Z66 Do not resuscitate
CPT/HCPCS: 36415; 51701; 71045; 80048; 80053; 81003; 81015; 82550; 82553; 83605; 83690; 83735; 84484; 85025; 87040; 87324; 87449; 87493; 93005; 96365; 96367; A4216; A4353; G8981-GP-CM; G8982-GP-CJ; G8987-GO-CM; G8988-GO-CL; J0696; J2185; J7050

== ENCOUNTER 2018-02-19 15:07 | Inpatient (IN) | payer MEDICARE ==
[2018-02-19 15:50] LABS: Hemoglobin 12.7 g/dL (12.0-16.0); Mean Corpuscular HGB CONC 33.9 g/dL (32.0-36.0); Mean Corpuscular Hemoglobin 29.8 pg (27.0-31.0); Mean Corpuscular Volume 87.9 fl (81.0-99.0); Mean Platelet Volume 7.5 fL (7.4-10.4); Platelet Count 258 thou/uL (130-400); RBC Distribution Width 13.3 % (11.5-14.5); Red Blood Cell (RBC) Count 4.27 mill/uL (4.20-5.40); White Blood Cell (WBC) Count 21.2 thou/uL (4.8-10.8)
[2018-02-19 15:57] LABS: ALT (SGPT) 35 U/L (8-55); AST (SGOT) 25 U/L (5-34); Albumin 3.6 g/dL (3.4-4.8); Alkaline Phosphatase 119 U/L (40-150); Anion Gap 13 mmol/L (10-20); BUN (Urea Nitrogen) 24 mg/dL (9.8-20.1); Bilirubin, Total 0.6 mg/dL (0.2-1.2); Calc. Creatinine Clearance 0 mL/min (70-130); Carbon Dioxide 25 mmol/L (23-31); Chloride 101 mmol/L (98-107); Estimated GFR-MDRD 50; Globulin 3.3 g/dL (2.4-3.5); Glucose 125 mg/dL (83-110); Potassium 4.9 mmol/L (3.5-5.1); Protein, Total 6.9 g/dL (6.0-8.3); Sodium 134 mmol/L (136-145)
[2018-02-19 16:09] LABS: Band 1 % (5-11); Lymphocytes 9 % (21-51); MDiff Complete? YES; Monocytes 4 % (0-10); Neutrophil 86 % (42-75); PLT Morphology Comment Appears Adequate
[2018-02-19 16:10] LABS: Bilirubin Negative (Negative); Blood, Urine Trace (Negative); Clarity CLOUDY (Clear); Glucose, Urine (Dipstick) Negative (Negative); Leukocyte Large (Negative); Nitrite Positive (Negative); Protein, Urine (Dipstick) 30 mg/dL (Neg-Trace); Urobilinogen 0.2 mg/dL (0.2-1.0)
[2018-02-19 16:13] LABS: Bacteria/HPF 2+ HPF (None Seen); Hyaline Casts/LPF 0-3 HYALINE CAST LPF (0-3 Hyaline); RBC/HPF 0-3 HPF (0-3); Squamous Epithelial None Seen HPF (0-3); Yeast-AUWi Flag 2.6 (0-25.0)
[2018-02-19] MEDS ORDERED: Cefepime 2 GM VIAL ONE (16:15)
[2018-02-19] MEDS ORDERED: Sodium Chloride 0.9% 100 ML ONE (16:15)
[2018-02-19] MEDS ORDERED: Vancomycin HCl 1.5 GM in Sodium Chloride 0.9% 250 ML 300 ML IVPB SCH (16:30)
[2018-02-19] MEDS ORDERED: RENALLY ADJUST ABX IVPB PRN (17:07)
[2018-02-19] MEDS ORDERED: Acetaminophen 650 MG Suppository PR PRN (17:09)
[2018-02-19] MEDS ORDERED: Bisacodyl 5 MG TAB PO PRN (17:09)
[2018-02-19] MEDS ORDERED: Acetaminophen 325 MG TAB PO PRN (17:09)
[2018-02-19] MEDS ORDERED: Vancomycin HCl 1 GM in Premix Bag 1 BAG IVPB SCH (17:15)
--- NOTE | 2018-02-19 17:47 | RAD ---
PORTABLE AP CHEST: Date: 02/19/18 HISTORY: Fever. COMPARISON: 02/10/18. FINDINGS: There are linear and patchy densities seen at each lung base, which could be related to atelectasis o r developing pneumonia at each lung base. The cardiac silhouette is magnified by projection. Pulmonar y vasculature is within normal limits. Vascular calcifications seen thoracic aorta. There is prominen t left glenohumeral osteoarthropathy. Degenerative changes seen in the spine. Vascular calcifications seen thoracic aorta. IMPRESSION: Linear and patchy densities at each lung base, greater on the left, which could be related to bibasil ar atelectasis as this exam is obtained in a shallow depth of inspiration. However, developing pneumo caroline at each lung base cannot be excluded. Follow-up chest x-ray is recommended. POS: SONIDO
[2018-02-19 18:29] VITALS: BMI 31.8
[2018-02-19] MEDS: Sodium Chloride 0.9% 1,000 ML IV SCH (19:08)
--- NOTE | 2018-02-19 19:13 | HP ---
PRIMARY CARE PROVIDER: Deepak Ricardo M.D. CHIEF COMPLAINT: Fever. HISTORY OF PRESENT ILLNESS: Ms. Santizo is a 78-year-old lady who was seen at [facility] on 02/19/2018. She is lethargic at this time, unable to provide any history. Collateral history was obtained from mamadou rivera of medical records, from discussion with the emergency room physician as well as discussion wit h the patient's daughter by the bedside. Ms. Santizo was hospitalized at [facility] from 01/23/2018 to 01/27/2018 for sepsis secondary to suspected Clostridium difficile colitis, urinary tract infection, acute kidney in jury and deconditioning. She was discharged to [facility] because of deconditioning. Her daughter reports that at baseline she does not ambulate much. She has been in isolation because of history of Clostridium difficile colitis. Two weeks ago, she was diagnosed with bronchitis. She received steroids as well as an unknown antibiotic. She reports that her diarrhea has been getting b manfred. She reports that Ms. Santizo coughs all the time. She is usually awake and alert, holding c onversations and recognizing people. Yesterday, the patient went home briefly to see how she could acclimatize when transitioned back to [facility]. She had some chills yesterday. She went back to [facility]. Today, she was found to hav e a temperature of 103 degrees Fahrenheit. It was rechecked and found to be 101 degrees Fahrenheit. She was therefore sent to the emergency room. REVIEW OF SYSTEMS: Could not be obtained because of patient's lethargy and nonverbal status. PAST MEDICAL HISTORY: Significant for hypertension, dyslipidemia, chronic atrial fibrillation, hypot hyroidism, anxiety and depression, chronic obstructive pulmonary disease, gastroesophageal reflux dis ease. PAST SURGICAL HISTORY: Hysterectomy, appendectomy, back surgery, and cholecystectomy. ALLERGIES: AMOXICILLIN, which does not appear to be a true allergy, since the side effect appears to have been diarrhea. CIPROFLOXACIN, which is also not a true allergy because she has tolerated recen tly. Other medications that she is allergic to include ERYTHROMYCIN, FENTANYL METOLAZONE, NABUMETONE , OXYCODONE, and SULFA. FAMILY HISTORY: Negative for any bleeding disorders. SOCIAL HISTORY: The patient is currently at [facility]. There is no history of tobacco use, a lcohol use or recreational drug use. CODE STATUS: I discussed her code status. She is DNR. CURRENT MEDICATIONS: Include Synthroid 125 mcg daily, amlodipine 10 mg daily, valsartan 320 mg daily , fluoxetine 20 mg daily, furosemide 20 mg daily, Meloxicam 15 mg daily, [place] p.r.n., atorvastatin 1 0 mg daily, alprazolam 0.25 mg daily, Centrum 1 tablet daily, tolterodine 4 mg daily, and albuterol p .r.n. PHYSICAL EXAMINATION: GENERAL: Ms. Santizo is lethargic, arousable, but falling asleep right away. VITAL SIGNS: Blood pressure is 157/88, pulse is 74. She is breathing at rate of 20 and saturating 9 7% on 3 liters of oxygen. Earlier, she had a respiratory rate of 22. Her T-max in the emergency monster m is 99.3 degrees Fahrenheit. EYES: No scleral icterus. No conjunctival pallor. ENT: Dry mucosal membranes. No oropharyngeal erythema or exudates. NECK: Supple, nontender, trachea is midline. RESPIRATORY: Accessory muscles of breathing are not active. Chest wall movements are symmetric bila terally. LUNGS: Reveals bibasilar coarse crackles. CARDIOVASCULAR: S1 and S2 are heard, regular. Peripheral pulses palpable. No carotid bruit, no per icardial rub. ABDOMEN: Soft, nontender, bowel sounds are heard, no hepatomegaly, no splenomegaly. NEUROLOGIC: Full neurologic examination not possible secondary to the patient's noncooperation. The re is no facial droop. She is moving all 4 extremities. Deep tendon reflexes are 2+. MUSCULOSKELETAL: The patient is moving all four extremities. SKIN: Erythema in the perineal region. LYMPHATIC: No cervical lymphadenopathy. PSYCHIATRIC: Unable to assess mood, affect or orientation to person, place or time. LABORATORY DATA: Ms. Santizo labs and investigations were reviewed. I reviewed her electrocardiogr am, which shows normal sinus rhythm, no ST changes to suggest an acute coronary syndrome. I also rev iewed her chest x-ray, which shows bibasilar infiltrates. She has leukocytosis with 21,200 white cells, of which 86% are neutrophils, normal hemoglobin, normal platelet count, decreased sodium of 134, normal potassium, normal creatinine, unremarkable liver pro file, normal lactic acid and urinalysis that is positive for protein, blood, nitrite and leukocyte es terase. ASSESSMENT AND PLAN: Mr. Santizo is a pleasant 78-year-old lady who was seen at [facility] on 02/19/2018. Her problem list includes: 1. Sepsis: She is presenting with sepsis, likely source of infection either lung or urine. She clay l be admitted to the hospital and treated with intravenous fluids and antibiotics. 2. Healthcare associated pneumonia: She will be treated with vancomycin, cefepime, and levofloxacin . She has tolerated these medications in the past. 3. Urinary tract infection. Antibiotics as above. Follow urine cultures. 4. Hypertension: Monitor vital signs, titrate antihypertensives as needed. 5. Dyslipidemia: Continue statin. 6. Bronchitis: Appears to be stable, start p.r.n. bronchodilators. Many thanks for allowing me to participate in your patient's care. Please feel free to contact me wi th any questions or concerns. LEVEL OF RISK: High. LEVEL OF COMPLEXITY: High.
[2018-02-20] MEDS ORDERED: Cefepime 2 GM, Syringe 2.5 ML in Sterile Water 10 ML SLOW IVP SCH (04:00)
[2018-02-20 04:44] LABS: #Eosinphils 0.4 thou/uL (0.0-0.7); #Lymphocytes 1.4 thou/uL (1.20-3.40); #Monocytes 1.1 thou/uL (0.11-0.59); #Neutrophils 12.1 thou/uL (1.40-6.50); %Basophils 0.1 % (0.0-1.0); %Eosinophils 2.9 % (0.0-10.0); %Lymphocytes 9.5 % (21.0-51.0); %Neutrophils 80.5 % (42.0-75.0); Hemoglobin 11.3 g/dL (12.0-16.0); Mean Corpuscular HGB CONC 33.2 g/dL (32.0-36.0); Mean Corpuscular Hemoglobin 29.7 pg (27.0-31.0); Mean Corpuscular Volume 89.5 fl (81.0-99.0); Mean Platelet Volume 7.7 fL (7.4-10.4); Platelet Count 212 thou/uL (130-400); RBC Distribution Width 13.2 % (11.5-14.5); Red Blood Cell (RBC) Count 3.82 mill/uL (4.20-5.40)
[2018-02-20 04:59] LABS: Anion Gap 12 mmol/L (10-20); BUN (Urea Nitrogen) 20 mg/dL (9.8-20.1); Calc. Creatinine Clearance 69 mL/min (70-130); Calcium 8.3 mg/dL (7.8-10.44); Carbon Dioxide 20 mmol/L (23-31); Chloride 108 mmol/L (98-107); Estimated GFR-MDRD 61; Glucose 90 mg/dL (83-110); Potassium 4.3 mmol/L (3.5-5.1); Sodium 136 mmol/L (136-145)
[2018-02-20] MEDS ORDERED: Cefepime 2 GM in Sodium Chloride 0.9% 100 ML IVPB SCH (05:00)
[2018-02-20] MEDS: Sodium Chloride 0.9% 1,000 ML IV SCH ×2 (06:44→16:46)
[2018-02-20] MEDS: Enoxaparin Sodium 40 MG/0.4 ML SYRINGE SC SCH (08:55)
[2018-02-20] MEDS ORDERED: Albuterol Sulfate 2.5 mg/3 ml Neb NEB PRN (10:12)
[2018-02-20] MEDS ORDERED: Potassium Chloride 10 MEQ TAB PO PRN (10:12)
[2018-02-20] MEDS ORDERED: traMADol HCl 50 MG TAB PO PRN (10:12)
[2018-02-20] MEDS ORDERED: PROVENTIL INHALER 6.7 G (200 INHALATIONS) INH PRN (10:12)
[2018-02-20] MEDS ORDERED: Guaifenesin DM 100-10/5 ML UDCUP PO PRN (10:12)
[2018-02-20] MEDS ORDERED: TROSPIUM 20 MG TABLET PO SCH (10:30)
--- NOTE | 2018-02-20 13:39 | PDOC.PN ---
- Subjective Encounter Start Date: 02/20/18 Encounter Start Time: 07:40 Pt seen for followup re: sepsis. More alert today. Denies chest pain. Occ cough. Denies dysuria. - Objective MAR Reviewed: Yes Vital Signs & Weight: Vital Signs (12 hours) Temp Pulse Resp BP Pulse Ox 02/20/18 11:00 98.3 F 98 16 138/74 99 02/20/18 07:35 98.8 F 102 H 18 172/79 H 100 02/20/18 04:00 99.8 F H 96 20 174/75 H 96 Weight Weight 185 lb 14.4 oz I&O: 02/19/18 02/20/18 02/21/18 06:59 06:59 06:59 Intake Total 770 Balance 770 Result Diagrams: 02/20/18 03:50 02/20/18 03:50 EKG Reviewed by me: Yes (Tele: NSR) Phys Exam - Physical Examination Obese HEENT: moist MMs, sclera anicteric, oral pharynx no lesions, 2+ tonsils Neck: no nodes, no JVD, supple, full ROM Respiratory: no wheezing, no rales, no rhonchi, clear to auscultation bilateral Cardiovascular: RRR, no rub S1, S2 Gastrointestinal: soft, non-tender, no distention, positive bowel sounds Musculoskeletal: no edema, pulses present Neurological: moves all 4 limbs Psychiatric: normal affect, A&O x 3 Skin: no rash Dx/Plan (1) Sepsis Code(s): A41.9 - SEPSIS, UNSPECIFIED ORGANISM Status: Acute Comment: continue IV fluids, IV antibiotics (2) Pneumonia Code(s): J18.9 - PNEUMONIA, UNSPECIFIED ORGANISM Status: Acute Comment: continue IV antibiotics as below (3) UTI (urinary tract infection) Status: Acute Comment: continue IV antibiotics as below, await urine and blood cultures (4) COPD (chronic obstructive pulmonary disease) Status: Chronic Comment: stable (5) Chronic low back pain Code(s): M54.5 - LOW BACK PAIN; G89.29 - OTHER CHRONIC PAIN Status: Chronic Comment: stable (6) GERD (gastroesophageal reflux disease) Code(s): K21.9 - GASTRO-ESOPHAGEAL REFLUX DISEASE WITHOUT ESOPHAGITIS Status: Chronic Qualifiers: Esophagitis presence: without esophagitis Qualified Code(s): K21.9 - Gastro -esophageal reflux disease without esophagitis Comment: stable (7) Hypertension Code(s): I10 - ESSENTIAL (PRIMARY) HYPERTENSION Status: Chronic Qualifiers: Hypertension type: essential hypertension Qualified Code(s): I10 - Essential (primary) hypertension Comment: Monitor vital signs, titrate antihypertensives as needed (8) Hypothyroidism Code(s): E03.9 - HYPOTHYROIDISM, UNSPECIFIED Status: Chronic Comment: stable (9) Obesity (BMI 30.0-34.9) Code(s): E66.9 - OBESITY, UNSPECIFIED Status: Chronic - Plan * . Review of Systems - Review of Systems Constitutional: negative: fever, chills, sweats, weakness, malaise Respiratory: negative: Cough, Shortness of Breath, SOB with Excertion, Pleuritic Pain, Wheezing Cardiovascular: negative: chest pain, palpitations, orthopnea, paroxysmal nocturnal dyspnea, edema, light headedness Gastrointestinal: negative: Nausea, Vomiting, Abdominal Pain, Diarrhea, Constipation, Melena, Hematochezia Genitourinary: negative: Dysuria, Frequency, Incontinence, Hematuria, Retention Skin: negative: Rash, Lesions, Suleman, Bruising - Medications/Allergies Allergies/Adverse Reactions: Allergies Allergy/AdvReac Type Severity Reaction Status Date / Time amoxicillin trihydrate Allergy Diarrhea Verified 02/19/18 19:31 [From Augmentin] ciprofloxacin [From Cipro] Allergy Rash Verified 02/19/18 19:31 clindamycin Allergy Verified 02/19/18 19:31 erythromycin base Allergy Verified 02/19/18 19:31 [From Erythrocin] erythromycin lactobionate Allergy Verified 02/19/18 19:31 [From Erythrocin] Latex, Natural Rubber Allergy Rash Verified 02/19/18 19:31 metolazone [Metolazone] Allergy Verified 02/19/18 19:31 nalbuphine HCl [From Nubain] Allergy Verified 02/19/18 19:31 oxycodone HCl Allergy Rash Verified 02/19/18 19:31 [From OxyContin] potassium clavulanate Allergy Diarrhea Verified 02/19/18 19:31 [From Augmentin] Sulfa (Sulfonamide Allergy Rash Verified 02/19/18 19:31 Antibiotics) sulfamethoxazole Allergy Verified 02/19/18 19:31 [From Bactrim] trimethoprim [From Bactrim] Allergy Verified 02/19/18 19:31 zolpidem tartrate AdvReac Intermediate "crazy" Verified 02/19/18 19:31 [From Ambien] fentanyl [From Duragesic] AdvReac Mild Anxiety Verified 02/19/18 19:31 Medications: Current Medications Acetaminophen (Tylenol) 650 mg PO Q4H PRN PRN Reason: Headache/Fever or Pain Acetaminophen (Tylenol) 650 mg NV Q4H PRN PRN Reason: Headache/Fever or Pain Albuterol Sulfate (Proventil Hfa) 2 puff INH Q4H PRN PRN Reason: Wheezing Albuterol Sulfate (Ventolin) 2.5 mg NEB Q2H PRN PRN Reason: Wheezing Albuterol/Ipratropium (Duoneb) 3 ml NEB [id number] PRN PRN Reason: SOB &/or Wheezing Albuterol/Ipratropium (Duoneb) 3 ml NEB Q6H PRN PRN Reason: SOB &/or Wheezing Alprazolam (Xanax) 0.25 mg PO HS [facility] Amlodipine Besylate (Norvasc) 10 mg PO DAILY [facility] Ascorbic Acid (Vitamin C) 500 mg PO DAILY [facility] Atorvastatin Calcium (Lipitor) 10 mg PO HS [facility] Bisacodyl (Dulcolax) 10 mg PO DAILYPRN PRN PRN Reason: Constipation Cholecalciferol (Vitamin D3) 2,000 units PO DAILY [facility] Enoxaparin Sodium (Lovenox) 40 mg SC 0900 [facility] Last Admin: 02/20/18 08:55 Dose: 40 mg Fluoxetine HCl (Prozac) 20 mg PO DAILY [facility] Gabapentin (Neurontin) 800 mg PO HS [facility] Gabapentin (Neurontin) 1,600 mg PO BID[facility] Guaifenesin (Mucinex) 600 mg PO BID [facility] Guaifenesin/Dextromethorphan (Robitussin Dm) 5 - 10 ml PO Q8H PRN PRN Reason: Cough Sodium Chloride (Normal Saline 0.9%) 1,000 mls @ 70 mls/hr IV .[id number] [facility] Last Admin: 02/20/18 06:44 Dose: 1,000 mls Vancomycin HCl 1.25 gm/ Sodium (Chloride) 250 mls @ 166.667 mls/hr IVPB 1700 [facility] Levofloxacin 750 mg/ Device 150 mls @ 100 mls/hr IVPB Q24HR [facility] Last Admin: 02/19/18 20:36 Dose: 150 mls Cefepime HCl 2 gm/ Sodium (Chloride) 100 mls @ 200 mls/hr IVPB 0400,1600 [facility] Levothyroxine Sodium (Synthroid) 125 mcg PO DAILY [facility] Meloxicam (Mobic) 15 mg PO DAILY [facility] Metoprolol Tartrate (Lopressor) 25 mg PO DAILY [facility] Miscellaneous Medication (Pharmacy To Dose) 1 each IVPB PRN PRN PRN Reason: Pharmacy to dose Multivitamins (Theragran) 1 tab PO DAILY [facility] Pantoprazole Sodium (Protonix) 40 mg PO DAILY [facility] Potassium Chloride (Klor-Con 10) 10 meq PO DAILY PRN PRN Reason: WHEN TAKING LASIX Saccharomyces Boulardii (Florastor) 250 mg PO 1400 [facility] Sodium Chloride (Flush - Normal Saline) 10 ml IVF Q12HR [facility] Sodium Chloride (Flush - Normal Saline) 10 ml IVF PRN PRN PRN Reason: Saline Flush Tramadol HCl (Ultram) 50 mg PO BIDPRN PRN PRN Reason: Pain Last Admin: 02/20/18 10:52 Dose: 50 mg Trospium (Trospium) 20 mg PO BID [facility] Valsartan (Diovan) 320 mg PO DAILY [facility]
[2018-02-20] MEDS: HYDROcodone/Acetaminophen 10/325 mg Tablet PO PRN ×2 (15:11→19:55)
[2018-02-20] MEDS: Saccharomyces boulardii 250 MG CAP PO SCH (15:12)
--- NOTE | 2018-02-20 15:26 | CON ---
DATE OF CONSULTATION: 02/20/2018 REASON FOR CONSULTATION: Urinary tract infection versus pneumonia. HISTORY OF PRESENT ILLNESS: A 78-year-old patient with history of hypertension, hypothyroidism, oste oarthritis, one admission for bronchitis which was described as asthmatic bronchitis with patient hav ing been discharged on prednisone orally. In 08/2017, she was discharged with diagnosis of acute bro nchitis and "sepsis", in 09/2017, she was discharged with a diagnosis of pneumonia and COPD, and then in December, she was diagnosed with C. diff colitis and treated. Finally, in 01/27/2018 she had anothe r episode of Clostridium difficile colitis which led to admission. At this time, she developed jorge rgy and developed some chills as well and in usp was found to have temperature of 103 and th en 101. She was referred to the emergency room. She had some cough and hypoxemia was identified as well and she was also having diarrhea recurrence. No headaches, no sore throat, odynophagia, dysphag ia or vomiting. No aspiration. No abdominal pain or cramps. No genitourinary symptoms. PAST MEDICAL HISTORY: Hypertension, hypothyroidism, asthma/COPD, bronchitis, pneumonia. PAST SURGICAL HISTORY: Hysterectomy and cholecystectomy. SOCIAL HISTORY: Never smoker, [place] town. ALLERGIES: AMOXICILLIN and BACTRIM with rashes. FAMILY HISTORY: Noncontributory. CURRENT MEDICATIONS: Tylenol, [place], Proventil, Ventolin, DuoNeb, Xanax, Norvasc, vitamin C, Lipitor , cefepime, Prozac, Lovenox, gabapentin, Mucinex, levofloxacin, Mobic, Lopressor, pantoprazole, trosp ium, and vancomycin. PHYSICAL EXAMINATION: VITAL SIGNS: T-max 99.8, blood pressure 170/79, pulse 98, respirations 16, O2 sat 99%. SKIN: Slight area of pressure ulceration in the back and some maceration associated with this as wel l. Peripheral IV access and she is voiding spontaneously. GENERAL: Appears chronically ill, no acute distress. No lymphadenopathy. HEENT: Ocular movements are conjugate. Sclerae white. Pupils are equal. Oral cavity with moist mu cosa. NECK: Supple with jugular vein distention. LUNGS: With symmetric air entry. I could not hear any wheezing or crackles. S1, S2, regular rate. No S3, S4. ABDOMEN: Soft, nondistended or tender. No ascites. No bladder distention. : No genital abnormalities. EXTREMITIES: Chronic osteoarthrosis in knees and ankles. Pulses are 1+ in dorsalis pedis. She seem s to have some element of ankylosis and atrophy of lower extremities from deconditioning. NEUROLOGIC: She is awake, oriented, follows commands. LABORATORY DATA AND IMAGING DATA: White cell count of 21,000 and 15,000, hemoglobin 11, platelets 21 2, 80% neutrophils. Sodium 134, creatinine 1.07, normal liver profile. Urinalysis with greater than 50 wbc's. Microbiology with gram negative chantell isolated from urine straight catheter. Two sets of b lood culture negative thus far. The patient has CT of chest on 01/08/2018. This showed cardiomegaly and no thromboembolism. Ground-glass changes in the bilateral upper lobes. There was evidence of o r at least tracheomalacia is described causing narrowing of the airways worse in the right proximal m ainstem bronchus, but also in the tracheal area. ASSESSMENT: 1. History of recurring episodes of respiratory symptoms with cough and wheezing, evidence of trache omalacia in recent CT scan involving both trachea as well as mainstem bronchial area. 2. Abnormal urinalysis. 3. Some cough and fever. DISCUSSION: CT scan findings are suggestive of tracheomalacia, which basically represent weakening o f the cartilage, maintaining the patency of the airways. This can lead to obstructive symptoms and c an mimic bronchitis/asthma. Certainly, it would affect the function of the airway and both cause obs tructive symptoms, both for in, but particular for exploration and may be associated with respiratory tract infection. I am not sure that urinary findings are responsible for the patient's clinical pre sentation as she does not seem to have any symptoms that would be associated with UTIs. Tracheomalac ia can be congenital or acquired, certainly will cause significant impairment of lung function. Gabby gement is difficult and can be dressed with stenting of the airway. Evidently, diagnosis needs to be established with precision that can be done via pulmonary function testing as well as bronchoscopy. Repeat the CT scan of the chest and abdomen to the views as well to evaluate urinary tract.
[2018-02-20] MEDS: Cefepime 2 GM in Sodium Chloride 0.9% 100 ML IVPB SCH (16:44)
[2018-02-20] MEDS: Gabapentin 400 MG CAP PO SCH ×2 (16:47→19:55)
[2018-02-20] MEDS ORDERED: Vancomycin HCl 1.25 GM in Sodium Chloride 0.9% 250 ML 250 ML IVPB SCH (17:00)
[2018-02-20] MEDS ORDERED: GABAPENTIN 1600 MG PO SCH (17:00)
--- NOTE | 2018-02-20 19:19 | CT ---
CT CHEST NONCONTRAST: CT ABDOMEN NONCONTRAST: CT PELVIS NONCONTRAST: HISTORY: Cough. Tracheomalacia. Abnormal urinalysis. Fever. Pneumonia. COMPARISON: CT chest from 01/08/2018. FINDINGS: Peripheral areas of scarring in the right middle lobe are similar. There is consolidation in the rig ht lower lobe, new. There is mucus throughout the right lower lobe bronchi, suggesting aspiration. There is tracheal bronchomalacia with multiple areas of narrowing. The pulmonary trunk is dilated. No pericardial effusion. Heart size is enlarged. There is no free intraperitoneal gas or fluid. Mild asymmetric left worse than right perinephric str anding, as well as a small amount of fluid in the anterior perirenal space. The aortic contour is to rtuous, although without aneurysmal dilatation. Phleboliths in the pelvis. There is a calcific body within the cecal apex. Small periaortic retroperitoneal lymph nodes. No dilated loops of large or small bowel. A small, fat-containing umbilical hernia. There are severe degenerative changes of the lumbar spine. The bones are osteoporotic. 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 Degenerative changes of the left acromioclavicular and glenohumeral joints. There is bilateral gluteus medius and minimus muscle atrophy. The erosions at the inferior endplate of L5 and the superior endplate of S1 are likely degenerative in nature, due to the pars defects. IMPRESSION: 1. New from the comparison CT examination is consolidation of the right lower lobe, concerning for p neumonia. There is fluid and debris within the right lower lobe bronchi, which may reflect a compone nt of aspiration. 2. Severe osseous osteopenia with multilevel severe degenerative changes of the lumbar spine. 3. Asymmetric left worse than right perinephric stranding can be seen with pyelonephritis. POS: [facility]
[2018-02-20] MEDS: guaiFENesin ER 600 MG TAB PO SCH (19:55)
[2018-02-20] MEDS: TROSPIUM 20 MG TABLET PO SCH (19:55)
[2018-02-20] MEDS: Atorvastatin Calcium 10 MG TAB PO SCH (19:55)
[2018-02-20] MEDS: ALPRAZolam 0.25 MG TAB PO SCH (19:55)
[2018-02-20] MEDS: Vancomycin HCl 1.25 GM in Sodium Chloride 0.9% 250 ML 250 ML IVPB SCH (19:56)
[2018-02-20] MEDS ORDERED: Non-Formulary Item 1 EACH (Gabapentin [Gabapentin] 800 MG) PO SCH (21:00)
[2018-02-21] MEDS: Ondansetron ODT 4 MG TAB PO PRN ×3 (00:55→23:42)
[2018-02-21] MEDS: Cefepime 2 GM in Sodium Chloride 0.9% 100 ML IVPB SCH ×2 (04:22→14:59)
[2018-02-21 04:48] LABS: #Eosinphils 0.9 thou/uL (0.0-0.7); #Lymphocytes 1.5 thou/uL (1.20-3.40); #Monocytes 0.9 thou/uL (0.11-0.59); #Neutrophils 6.8 thou/uL (1.40-6.50); %Basophils 0.2 % (0.0-1.0); %Eosinophils 8.5 % (0.0-10.0); %Lymphocytes 14.9 % (21.0-51.0); %Monocytes 8.9 % (0.0-10.0); %Neutrophils 67.6 % (42.0-75.0); Hemoglobin 9.8 g/dL (12.0-16.0); Mean Corpuscular HGB CONC 33.4 g/dL (32.0-36.0); Mean Corpuscular Hemoglobin 30.3 pg (27.0-31.0); Mean Corpuscular Volume 90.6 fl (81.0-99.0); Mean Platelet Volume 7.9 fL (7.4-10.4); Platelet Count 189 thou/uL (130-400); RBC Distribution Width 13.1 % (11.5-14.5); Red Blood Cell (RBC) Count 3.24 mill/uL (4.20-5.40); White Blood Cell (WBC) Count 10.1 thou/uL (4.8-10.8)
[2018-02-21 05:31] LABS: Anion Gap 13 mmol/L (10-20); BUN (Urea Nitrogen) 15 mg/dL (9.8-20.1); Calc. Creatinine Clearance 73 mL/min (70-130); Carbon Dioxide 18 mmol/L (23-31); Chloride 106 mmol/L (98-107); Estimated GFR-MDRD 66; Glucose 120 mg/dL (83-110); Potassium 4.2 mmol/L (3.5-5.1); Sodium 133 mmol/L (136-145)
[2018-02-21] MEDS: Ascorbic Acid 500 mg Chewable Tablet PO SCH (08:21)
[2018-02-21] MEDS: Enoxaparin Sodium 40 MG/0.4 ML SYRINGE SC SCH (08:21)
[2018-02-21] MEDS: HYDROcodone/Acetaminophen 10/325 mg Tablet PO PRN (08:22)
[2018-02-21] MEDS: Gabapentin 400 MG CAP PO SCH ×3 (08:23→20:33)
[2018-02-21] MEDS: Amlodipine 10 MG TAB PO SCH (08:24)
[2018-02-21] MEDS: Metoprolol Tartrate 25 MG TAB PO SCH (08:24)
[2018-02-21] MEDS: FLUoxetine HCl 20 MG CAP PO SCH (08:25)
[2018-02-21] MEDS ORDERED: Non-Formulary Item 1 EACH (Valsartan [Diovan] 320 MG) PO SCH (09:00)
[2018-02-21] MEDS ORDERED: Non-Formulary Item 1 EACH (Fluoxetine Hcl [Fluoxetine Hcl] 20 MG) PO SCH (09:00)
[2018-02-21] MEDS ORDERED: Non-Formulary Item 1 EACH (Cholecalciferol (Vitamin D3) [Vitamin D3] 2,000 UNIT) PO SCH (09:00)
[2018-02-21] MEDS ORDERED: Non-Formulary Item 1 EACH (Multivitamin/Iron/Folic Acid [Centrum Adults Tablet] 1 EACH) PO SCH (09:00)
[2018-02-21] MEDS ORDERED: Non-Formulary Item 1 EACH (Ascorbate Calcium [Vitamin C] 500 MG) PO SCH (09:00)
[2018-02-21] MEDS: Levothyroxine Sodium 125 MCG TAB PO SCH (09:53)
[2018-02-21] MEDS: TROSPIUM 20 MG TABLET PO SCH ×2 (09:53→20:32)
[2018-02-21] MEDS: Meloxicam 15 MG TAB PO SCH (10:41)
[2018-02-21] MEDS: Valsartan 80 MG TAB PO SCH (10:41)
[2018-02-21] MEDS: guaiFENesin ER 600 MG TAB PO SCH ×2 (10:43→20:32)
[2018-02-21] MEDS: Multivit, Therapeutic 1 TAB PO SCH (10:44)
[2018-02-21] MEDS: Sodium Chloride 0.9% 1,000 ML IV SCH ×2 (13:10→21:39)
[2018-02-21] MEDS: Saccharomyces boulardii 250 MG CAP PO SCH (14:59)
--- NOTE | 2018-02-21 17:07 | PDOC.PN ---
- Subjective Encounter Start Date: 02/21/18 Encounter Start Time: 17:05 Pt seen for followup re: pneumonia. Denies chest pain, shortness of breath, fevers or chills. No nausea or vomiting. - Objective MAR Reviewed: Yes Vital Signs & Weight: Vital Signs (12 hours) Temp Pulse Resp BP BP Pulse Ox 02/21/18 16:40 97.9 F 74 18 173/86 H 93 L 02/21/18 11:35 97.9 F 76 16 124/75 92 L 02/21/18 08:24 64 143/84 H 02/21/18 08:00 98.2 F 64 16 94 L 02/21/18 07:12 98.2 F 64 18 143/84 H 91 L Weight Weight 185 lb 14.4 oz I&O: 02/20/18 02/21/18 02/22/18 06:59 06:59 06:59 Intake Total 770 2220 240 Balance 770 2220 240 Result Diagrams: 02/21/18 04:14 02/21/18 04:14 Additional Labs: Labs reviewed by me Phys Exam - Physical Examination Constitutional: NAD HEENT: moist MMs Neck: supple Respiratory: clear to auscultation bilateral Cardiovascular: RRR Gastrointestinal: soft Neurological: moves all 4 limbs Psychiatric: normal affect Dx/Plan (1) Pneumonia Code(s): J18.9 - PNEUMONIA, UNSPECIFIED ORGANISM Status: Acute Comment: continue IV antibiotics (2) UTI (urinary tract infection) Status: Acute Comment: UTI with citrobacter sensitive to fluoroquinolones (3) COPD (chronic obstructive pulmonary disease) Status: Chronic Comment: stable (4) Chronic low back pain Code(s): M54.5 - LOW BACK PAIN; G89.29 - OTHER CHRONIC PAIN Status: Chronic Comment: stable (5) GERD (gastroesophageal reflux disease) Code(s): K21.9 - GASTRO-ESOPHAGEAL REFLUX DISEASE WITHOUT ESOPHAGITIS Status: Chronic Qualifiers: Esophagitis presence: without esophagitis Qualified Code(s): K21.9 - Gastro -esophageal reflux disease without esophagitis Comment: stable (6) Hypertension Code(s): I10 - ESSENTIAL (PRIMARY) HYPERTENSION Status: Chronic Qualifiers: Hypertension type: essential hypertension Qualified Code(s): I10 - Essential (primary) hypertension Comment: titrate antihypertensives as needed (7) Hypothyroidism Code(s): E03.9 - HYPOTHYROIDISM, UNSPECIFIED Status: Chronic Comment: stable (8) Obesity (BMI 30.0-34.9) Code(s): E66.9 - OBESITY, UNSPECIFIED Status: Chronic (9) Sepsis Code(s): A41.9 - SEPSIS, UNSPECIFIED ORGANISM Status: Resolved - Plan plan discussed w/ family, continue antibiotics, PT/OT, out of bed/ambulate * . Pt will likely need SNU at time of discharge Review of Systems - Medications/Allergies Allergies/Adverse Reactions: Allergies Allergy/AdvReac Type Severity Reaction Status Date / Time amoxicillin trihydrate Allergy Diarrhea Verified 02/19/18 19:31 [From Augmentin] ciprofloxacin [From Cipro] Allergy Rash Verified 02/19/18 19:31 clindamycin Allergy Verified 02/19/18 19:31 erythromycin base Allergy Verified 02/19/18 19:31 [From Erythrocin] erythromycin lactobionate Allergy Verified 02/19/18 19:31 [From Erythrocin] Latex, Natural Rubber Allergy Rash Verified 02/19/18 19:31 metolazone [Metolazone] Allergy Verified 02/19/18 19:31 nalbuphine HCl [From Nubain] Allergy Verified 02/19/18 19:31 oxycodone HCl Allergy Rash Verified 02/19/18 19:31 [From OxyContin] potassium clavulanate Allergy Diarrhea Verified 02/19/18 19:31 [From Augmentin] Sulfa (Sulfonamide Allergy Rash Verified 02/19/18 19:31 Antibiotics) sulfamethoxazole Allergy Verified 02/19/18 19:31 [From Bactrim] trimethoprim [From Bactrim] Allergy Verified 02/19/18 19:31 zolpidem tartrate AdvReac Intermediate "crazy" Verified 02/19/18 19:31 [From Ambien] fentanyl [From Duragesic] AdvReac Mild Anxiety Verified 02/19/18 19:31 Medications: Current Medications Acetaminophen (Tylenol) 650 mg PO Q4H PRN PRN Reason: Headache/Fever or Pain Acetaminophen (Tylenol) 650 mg ID Q4H PRN PRN Reason: Headache/Fever or Pain Hydrocodone Bitart/Acetaminophen ([place] 10/325) 1 tab PO Q4H PRN PRN Reason: Pain Last Admin: 02/21/18 08:22 Dose: 1 tab Albuterol Sulfate (Proventil Hfa) 2 puff INH Q4H PRN PRN Reason: Wheezing Albuterol Sulfate (Ventolin) 2.5 mg NEB Q2H PRN PRN Reason: Wheezing Albuterol/Ipratropium (Duoneb) 3 ml NEB [id number] PRN PRN Reason: SOB &/or Wheezing Albuterol/Ipratropium (Duoneb) 3 ml NEB Q6H PRN PRN Reason: SOB &/or Wheezing Alprazolam (Xanax) 0.25 mg PO HS [facility] Last Admin: 02/20/18 19:55 Dose: 0.25 mg Amlodipine Besylate (Norvasc) 10 mg PO DAILY [facility] Last Admin: 02/21/18 08:24 Dose: 10 mg Ascorbic Acid (Vitamin C) 500 mg PO DAILY [facility] Last Admin: 02/21/18 08:21 Dose: 500 mg Atorvastatin Calcium (Lipitor) 10 mg PO HS [facility] Last Admin: 02/20/18 19:55 Dose: 10 mg Bisacodyl (Dulcolax) 10 mg PO DAILYPRN PRN PRN Reason: Constipation Cholecalciferol (Vitamin D3) 2,000 units PO DAILY [facility] Last Admin: 02/21/18 10:43 Dose: Not Given Enoxaparin Sodium (Lovenox) 40 mg SC 0900 [facility] Last Admin: 02/21/18 08:21 Dose: 40 mg Fluoxetine HCl (Prozac) 20 mg PO DAILY [facility] Last Admin: 02/21/18 08:25 Dose: 20 mg Gabapentin (Neurontin) 800 mg PO [facility] Last Admin: 02/20/18 19:55 Dose: 800 mg Gabapentin (Neurontin) 1,600 mg PO BID-[facility] Last Admin: 02/21/18 08:23 Dose: 1,600 mg Guaifenesin (Mucinex) 600 mg PO BID [facility] Last Admin: 02/21/18 10:43 Dose: Not Given Guaifenesin/Dextromethorphan (Robitussin Dm) 5 - 10 ml PO Q8H PRN PRN Reason: Cough Sodium Chloride (Normal Saline 0.9%) 1,000 mls @ 70 mls/hr IV .[id number] [facility] Last Admin: 02/21/18 13:10 Dose: Not Given Levofloxacin 750 mg/ Device 150 mls @ 100 mls/hr IVPB Q24HR [facility] Last Admin: 02/20/18 19:54 Dose: 150 mls Cefepime HCl 2 gm/ Sodium (Chloride) 100 mls @ 200 mls/hr IVPB 0400,1600 [facility] Last Admin: 02/21/18 14:59 Dose: 100 mls Vancomycin HCl 1.25 gm/ Sodium (Chloride) 250 mls @ 166.667 mls/hr IVPB 2000 [facility] Last Admin: 02/20/18 19:56 Dose: 250 mls Levothyroxine Sodium (Synthroid) 125 mcg PO DAILY [facility] Last Admin: 02/21/18 09:53 Dose: 125 mcg Meloxicam (Mobic) 15 mg PO DAILY [facility] Last Admin: 02/21/18 10:41 Dose: 15 mg Metoprolol Tartrate (Lopressor) 25 mg PO DAILY [facility] Last Admin: 02/21/18 08:24 Dose: 25 mg Miscellaneous Medication (Pharmacy To Dose) 1 each IVPB PRN PRN PRN Reason: Pharmacy to dose Multivitamins (Theragran) 1 tab PO DAILY [facility] Last Admin: 02/21/18 10:44 Dose: Not Given Ondansetron HCl (Zofran Odt) 4 mg PO Q6H PRN PRN Reason: Nausea/Vomiting Last Admin: 02/21/18 00:55 Dose: 4 mg Pantoprazole Sodium (Protonix) 40 mg PO DAILY [facility] Last Admin: 02/21/18 10:44 Dose: Not Given Potassium Chloride (Klor-Con 10) 10 meq PO DAILY PRN PRN Reason: WHEN TAKING LASIX Saccharomyces Boulardii (Florastor) 250 mg PO 1400 [facility] Last Admin: 02/21/18 14:59 Dose: 250 mg Sodium Chloride (Flush - Normal Saline) 10 ml IVF Q12HR [facility] Last Admin: 02/21/18 10:44 Dose: Not Given Sodium Chloride (Flush - Normal Saline) 10 ml IVF PRN PRN PRN Reason: Saline Flush Tramadol HCl (Ultram) 50 mg PO BIDPRN PRN PRN Reason: Pain Last Admin: 02/20/18 10:52 Dose: 50 mg Trospium (Trospium) 20 mg PO BID [facility] Last Admin: 02/21/18 09:53 Dose: 20 mg Valsartan (Diovan) 320 mg PO DAILY [facility] Last Admin: 02/21/18 10:41 Dose: 320 mg
--- NOTE | 2018-02-21 17:13 | PRG ---
DATE OF SERVICE: 02/21/2018 SUBJECTIVE: Still with a little bit of cough here and there. No chest pain. Mild dyspnea. No abdo ganesh pain or diarrhea. OBJECTIVE: VITAL SIGNS: Temperature has been normal. LUNGS: With scattered rhonchi, few crackles at left side. HEART: S1, S2, regular rate. ABDOMEN: Soft, not distended or tender. EXTREMITIES: Moves extremities equally. LABORATORY DATA: White cell count 10.1, hemoglobin 9.8, platelets 189. Urine culture, Citrobacter. Imaging study, with evidence of tracheomalacia, consolidation right lower lobe which is new. Mucus t hroughout the right upper lobe bronchi. The patient also has an area of asymmetry of perinephric str anding, but I do not think she has symptoms to justify diagnosed with pyelonephritis. ASSESSMENT AND DISCUSSION: Recurring episodes of respiratory symptoms, prior pneumonia and diagnosis of bronchitis/asthma with evidence of tracheomalacia, which has been demonstrated in [address] scans including the current one and now she has another area of pneumonitis. Most likely, the patien t has significant tracheomalacia causing impairment of the mucociliary function and proper functionin g of the coughing mechanism. The patient has developed recurring episodes of respiratory infection. Consider consulting Pulmonary Medicine regarding tracheomalacia management. Sometimes those patient s may benefit from stenting of those areas, but she might have to be referred to a tertiary center fo [facility]ad[facility].
[2018-02-21] MEDS: ALPRAZolam 0.25 MG TAB PO SCH (20:33)
[2018-02-21] MEDS: Atorvastatin Calcium 10 MG TAB PO SCH (20:33)
[2018-02-21] MEDS: Vancomycin HCl 1.25 GM in Sodium Chloride 0.9% 250 ML 250 ML IVPB SCH (21:36)
[2018-02-22 02:45] LABS: #Eosinphils 0.7 thou/uL (0.0-0.7); #Lymphocytes 1.4 thou/uL (1.20-3.40); #Monocytes 0.8 thou/uL (0.11-0.59); #Neutrophils 5.2 thou/uL (1.40-6.50); %Basophils 0.3 % (0.0-1.0); %Eosinophils 8.9 % (0.0-10.0); %Lymphocytes 17.5 % (21.0-51.0); %Monocytes 9.3 % (0.0-10.0); Hemoglobin 10.9 g/dL (12.0-16.0); Mean Corpuscular HGB CONC 32.8 g/dL (32.0-36.0); Mean Corpuscular Hemoglobin 29.2 pg (27.0-31.0); Mean Corpuscular Volume 89.1 fl (81.0-99.0); Mean Platelet Volume 7.6 fL (7.4-10.4); Platelet Count 194 thou/uL (130-400); RBC Distribution Width 12.9 % (11.5-14.5); Red Blood Cell (RBC) Count 3.73 mill/uL (4.20-5.40); White Blood Cell (WBC) Count 8.2 thou/uL (4.8-10.8)
[2018-02-22 03:39] LABS: Anion Gap 11 mmol/L (10-20); BUN (Urea Nitrogen) 11 mg/dL (9.8-20.1); Calc. Creatinine Clearance 78 mL/min (70-130); Calcium 8.3 mg/dL (7.8-10.44); Carbon Dioxide 22 mmol/L (23-31); Chloride 104 mmol/L (98-107); Estimated GFR-MDRD 70; Glucose 115 mg/dL (83-110); Potassium 4.1 mmol/L (3.5-5.1); Sodium 133 mmol/L (136-145)
[2018-02-22] MEDS: Cefepime 2 GM in Sodium Chloride 0.9% 100 ML IVPB SCH ×2 (04:18→16:59)
[2018-02-22] MEDS: Gabapentin 400 MG CAP PO SCH ×3 (09:25→20:28)
[2018-02-22] MEDS: Ascorbic Acid 500 mg Chewable Tablet PO SCH (09:26)
[2018-02-22] MEDS: Metoprolol Tartrate 25 MG TAB PO SCH (09:26)
[2018-02-22] MEDS: TROSPIUM 20 MG TABLET PO SCH ×2 (09:27→20:27)
[2018-02-22] MEDS: Amlodipine 10 MG TAB PO SCH (09:27)
[2018-02-22] MEDS: Levothyroxine Sodium 125 MCG TAB PO SCH (09:27)
[2018-02-22] MEDS: Meloxicam 15 MG TAB PO SCH (09:28)
[2018-02-22] MEDS: FLUoxetine HCl 20 MG CAP PO SCH (09:28)
[2018-02-22] MEDS: Multivit, Therapeutic 1 TAB PO SCH (09:28)
[2018-02-22] MEDS: guaiFENesin ER 600 MG TAB PO SCH ×2 (09:28→20:28)
[2018-02-22] MEDS: Enoxaparin Sodium 40 MG/0.4 ML SYRINGE SC SCH (09:28)
[2018-02-22] MEDS ORDERED: Nystatin Powder 15 GM BOT TOP PRN (11:33)
--- NOTE | 2018-02-22 12:21 | CON ---
DATE OF CONSULTATION: 02/22/2018 This is a 78-year-old female well known to me who apparently is at [facility], presented with fever. Denies any chest pain, chills, sweats, hemoptysis. Temperature was 101. She is now being consulted by Infectious Disease. She was started on broad-spe ctrum antibiotics which has included vancomycin, Levaquin and Maxipime. The patient was consulted re garding her pulmonary status. She is essentially wheelchair ridden, unable to do any meaningful ambulation. She denies any coughing or wheezing, chills or sweats. She has been in and out of the hospital here numerous times, in fact, she was here most recently on 0 01/23/2018 for low blood pressure. She was found to have a UTI sepsis at that time. PAST MEDICAL HISTORY: Otherwise, pertinent for recurrent UTIs, sepsis, respiratory failure, hypovent ilation. She was a DNR as per the previous medical records. She now has had a CT abdomen and pelvis done which shows a possible right lower lobe consolidation. MEDICATIONS: She has a long list of medicine from home, includes Diovan 320, Protonix 40, Lopressor 25 once a day, and gabapentin 800 mg at nighttime, Norvasc 10 mg, ProAir, Xanax 0.25. ALLERGIES: Multiple; PENICILLIN, CLINDAMYCIN, SULFA, FENTANYL. TOBACCO: None. ALCOHOL: None. REVIEW OF SYSTEMS: Otherwise unremarkable. PHYSICAL EXAMINATION: GENERAL: She appears to be in no acute distress. VITAL SIGNS: Sats were 94-95% on room air, pulse 88, blood pressure 130/80. CHEST: Chest revealed minimal crackles. There is no wheezing. CARDIAC: Normal S1, S2, no gallops, no masses. IMPRESSION: 1. Marked kyphoscoliosis. 2. Respiratory failure, chronic. 3. Questionable right-sided pneumonia. 4. Recurrent urinary tract infection, Citrobacter, sensitive to all the antibiotics. 5. Severe deconditioning. 6. Wheelchair ridden. 7. Azotemia, resolved. LABORATORY: Creatinine is 0.79, sodium 133. White count 8000, H&H 10 and 32, platelet count is 194. Urine is growing Citrobacter which is sensitive to all the antibiotics. PLAN: I would deescalate antibiotics. Otherwise, she appears to be stable. Continue PT and support carmelo care, and neb treatments. I will follow. Consultation note, 70 minutes, 50% spent in direct patient care.
[2018-02-22] MEDS: Saccharomyces boulardii 250 MG CAP PO SCH (13:06)
[2018-02-22] MEDS: Valsartan 80 MG TAB PO SCH (13:07)
--- NOTE | 2018-02-22 18:09 | PDOC.PN ---
- Subjective Encounter Start Date: 02/22/18 Encounter Start Time: 09:00 Pt seen for followup re: pneumonia. Denies chest pain, shortness of breath, fevers or chills. - Objective MAR Reviewed: Yes Vital Signs & Weight: Vital Signs (12 hours) Temp Pulse Pulse Pulse Resp BP BP 02/22/18 16:20 98.3 F 77 16 130/79 02/22/18 11:51 97.2 F L 78 16 133/84 02/22/18 10:42 70 65 02/22/18 09:27 70 147/84 H 02/22/18 08:00 98.4 F 70 18 02/22/18 07:19 98.4 F 70 18 147/84 H Pulse Ox Pulse Ox Pulse Ox 02/22/18 16:20 92 L 02/22/18 11:51 92 L 02/22/18 10:42 93 L 93 L 02/22/18 09:27 02/22/18 08:00 92 L 02/22/18 07:19 92 L Weight Weight 185 lb 14.4 oz I&O: 02/21/18 02/22/18 02/23/18 06:59 06:59 06:59 Intake Total 2219 2049 Balance 2219 2049 Result Diagrams: 02/22/18 02:23 02/22/18 02:23 Additional Labs: Labs reviewed by me Phys Exam - Physical Examination Constitutional: NAD HEENT: moist MMs Neck: supple R basal crackles Cardiovascular: RRR Gastrointestinal: soft Neurological: moves all 4 limbs Psychiatric: normal affect Skin: no rash Dx/Plan (1) Pneumonia Code(s): J18.9 - PNEUMONIA, UNSPECIFIED ORGANISM Status: Acute Comment: continue IV antibiotics as below. Pt has tracheomalacia. Pulmonology consulted , need to clarify re: treatment options for tracheomalacia. (2) UTI (urinary tract infection) Status: Acute Comment: citrobacter sensitive to fluoroquinolones (3) COPD (chronic obstructive pulmonary disease) Status: Chronic Comment: stable (4) Chronic low back pain Code(s): M54.5 - LOW BACK PAIN; G89.29 - OTHER CHRONIC PAIN Status: Chronic Comment: stable (5) GERD (gastroesophageal reflux disease) Code(s): K21.9 - GASTRO-ESOPHAGEAL REFLUX DISEASE WITHOUT ESOPHAGITIS Status: Chronic Qualifiers: Esophagitis presence: without esophagitis Qualified Code(s): K21.9 - Gastro -esophageal reflux disease without esophagitis Comment: stable (6) Hypertension Code(s): I10 - ESSENTIAL (PRIMARY) HYPERTENSION Status: Chronic Qualifiers: Hypertension type: essential hypertension Qualified Code(s): I10 - Essential (primary) hypertension Comment: stable, BP controlled (7) Hypothyroidism Code(s): E03.9 - HYPOTHYROIDISM, UNSPECIFIED Status: Chronic Comment: stable (8) Obesity (BMI 30.0-34.9) Code(s): E66.9 - OBESITY, UNSPECIFIED Status: Chronic (9) Sepsis Code(s): A41.9 - SEPSIS, UNSPECIFIED ORGANISM Status: Resolved - Plan * . Review of Systems - Medications/Allergies Allergies/Adverse Reactions: Allergies Allergy/AdvReac Type Severity Reaction Status Date / Time amoxicillin trihydrate Allergy Diarrhea Verified 02/19/18 19:31 [From Augmentin] ciprofloxacin [From Cipro] Allergy Rash Verified 02/19/18 19:31 clindamycin Allergy Verified 02/19/18 19:31 erythromycin base Allergy Verified 02/19/18 19:31 [From Erythrocin] erythromycin lactobionate Allergy Verified 02/19/18 19:31 [From Erythrocin] Latex, Natural Rubber Allergy Rash Verified 02/19/18 19:31 metolazone [Metolazone] Allergy Verified 02/19/18 19:31 nalbuphine HCl [From Nubain] Allergy Verified 02/19/18 19:31 oxycodone HCl Allergy Rash Verified 02/19/18 19:31 [From OxyContin] potassium clavulanate Allergy Diarrhea Verified 02/19/18 19:31 [From Augmentin] Sulfa (Sulfonamide Allergy Rash Verified 02/19/18 19:31 Antibiotics) sulfamethoxazole Allergy Verified 02/19/18 19:31 [From Bactrim] trimethoprim [From Bactrim] Allergy Verified 02/19/18 19:31 zolpidem tartrate AdvReac Intermediate "crazy" Verified 02/19/18 19:31 [From Ambien] fentanyl [From Duragesic] AdvReac Mild Anxiety Verified 02/19/18 19:31 Medications: Current Medications Acetaminophen (Tylenol) 650 mg PO Q4H PRN PRN Reason: Headache/Fever or Pain Acetaminophen (Tylenol) 650 mg [place] Q4H PRN PRN Reason: Headache/Fever or Pain Hydrocodone Bitart/Acetaminophen ([place] 10/325) 1 tab PO Q4H PRN PRN Reason: Pain Last Admin: 02/21/18 08:22 Dose: 1 tab Albuterol Sulfate (Proventil Hfa) 2 puff INH Q4H PRN PRN Reason: Wheezing Albuterol Sulfate (Ventolin) 2.5 mg NEB Q2H PRN PRN Reason: Wheezing Albuterol/Ipratropium (Duoneb) 3 ml NEB [id number] PRN PRN Reason: SOB &/or Wheezing Albuterol/Ipratropium (Duoneb) 3 ml NEB Q6H PRN PRN Reason: SOB &/or Wheezing Alprazolam (Xanax) 0.25 mg PO HS [facility] Last Admin: 02/21/18 20:33 Dose: 0.25 mg Amlodipine Besylate (Norvasc) 10 mg PO DAILY [facility] Last Admin: 02/22/18 09:27 Dose: 10 mg Ascorbic Acid (Vitamin C) 500 mg PO DAILY [facility] Last Admin: 02/22/18 09:26 Dose: 500 mg Atorvastatin Calcium (Lipitor) 10 mg PO HS [facility] Last Admin: 02/21/18 20:33 Dose: 10 mg Bisacodyl (Dulcolax) 10 mg PO DAILYPRN PRN PRN Reason: Constipation Cholecalciferol (Vitamin D3) 2,000 units PO DAILY [facility] Last Admin: 02/22/18 09:26 Dose: 2,000 units Enoxaparin Sodium (Lovenox) 40 mg SC 0900 [facility] Last Admin: 02/22/18 09:28 Dose: 40 mg Fluoxetine HCl (Prozac) 20 mg PO DAILY [facility] Last Admin: 02/22/18 09:28 Dose: 20 mg Gabapentin (Neurontin) 800 mg PO HS [facility] Last Admin: 02/21/18 20:33 Dose: 800 mg Gabapentin (Neurontin) 1,600 mg PO BID-[facility] Last Admin: 02/22/18 17:00 Dose: 1,600 mg Guaifenesin (Mucinex) 600 mg PO BID [facility] Last Admin: 02/22/18 09:28 Dose: 600 mg Guaifenesin/Dextromethorphan (Robitussin Dm) 5 - 10 ml PO Q8H PRN PRN Reason: Cough Sodium Chloride (Normal Saline 0.9%) 1,000 mls @ 70 mls/hr IV .[id number] [facility] Last Admin: 02/21/18 21:39 Dose: 1,000 mls Levofloxacin 750 mg/ Device 150 mls @ 100 mls/hr IVPB Q24HR [facility] Last Admin: 02/21/18 20:35 Dose: 150 mls Cefepime HCl 2 gm/ Sodium (Chloride) 100 mls @ 200 mls/hr IVPB 0400,1600 [facility] Last Admin: 02/22/18 16:59 Dose: 100 mls Vancomycin HCl 1.25 gm/ Sodium (Chloride) 250 mls @ 166.667 mls/hr IVPB 2000 [facility] Last Admin: 02/21/18 21:36 Dose: 250 mls Levothyroxine Sodium (Synthroid) 125 mcg PO DAILY [facility] Last Admin: 02/22/18 09:27 Dose: 125 mcg Meloxicam (Mobic) 15 mg PO DAILY [facility] Last Admin: 02/22/18 09:28 Dose: 15 mg Metoprolol Tartrate (Lopressor) 25 mg PO DAILY [facility] Last Admin: 02/22/18 09:26 Dose: 25 mg Miscellaneous Medication (Pharmacy To Dose) 1 each IVPB PRN PRN PRN Reason: Pharmacy to dose Multivitamins (Theragran) 1 tab PO DAILY [facility] Last Admin: 02/22/18 09:28 Dose: 1 tab Nystatin (Mycostatin Powder) 0 gm TOP BID PRN PRN Reason: Topical Irritations Ondansetron HCl (Zofran Odt) 4 mg PO Q6H PRN PRN Reason: Nausea/Vomiting Last Admin: 02/21/18 23:42 Dose: 4 mg Pantoprazole Sodium (Protonix) 40 mg PO DAILY [facility] Last Admin: 02/22/18 09:28 Dose: 40 mg Potassium Chloride (Klor-Con 10) 10 meq PO DAILY PRN PRN Reason: WHEN TAKING LASIX Saccharomyces Boulardii (Florastor) 250 mg PO 1400 [facility] Last Admin: 02/22/18 13:06 Dose: 250 mg Sodium Chloride (Flush - Normal Saline) 10 ml IVF Q12HR [facility] Last Admin: 02/22/18 09:28 Dose: 10 ml Sodium Chloride (Flush - Normal Saline) 10 ml IVF PRN PRN PRN Reason: Saline Flush Tramadol HCl (Ultram) 50 mg PO BIDPRN PRN PRN Reason: Pain Last Admin: 02/20/18 10:52 Dose: 50 mg Trospium (Trospium) 20 mg PO BID [facility] Last Admin: 02/22/18 09:27 Dose: 20 mg Valsartan (Diovan) 320 mg PO DAILY [facility] Last Admin: 02/22/18 13:07 Dose: 320 mg
[2018-02-22] MEDS: Sodium Chloride 0.9% 1,000 ML IV SCH (20:22)
[2018-02-22] MEDS: ALPRAZolam 0.25 MG TAB PO SCH (20:27)
[2018-02-22] MEDS: Atorvastatin Calcium 10 MG TAB PO SCH (20:28)
[2018-02-22] MEDS: Vancomycin HCl 1.25 GM in Sodium Chloride 0.9% 250 ML 250 ML IVPB SCH (20:32)
[2018-02-22] MEDS: Ondansetron ODT 4 MG TAB PO PRN (21:23)
[2018-02-23] MEDS: Cefepime 2 GM in Sodium Chloride 0.9% 100 ML IVPB SCH (03:28)
[2018-02-23] MEDS: Sodium Chloride 0.9% 1,000 ML IV SCH (09:10)
[2018-02-23] MEDS: Ascorbic Acid 500 mg Chewable Tablet PO SCH (09:10)
[2018-02-23] MEDS: Levothyroxine Sodium 125 MCG TAB PO SCH (09:10)
[2018-02-23] MEDS: Multivit, Therapeutic 1 TAB PO SCH (09:13)
[2018-02-23] MEDS: guaiFENesin ER 600 MG TAB PO SCH ×2 (09:13→20:08)
[2018-02-23] MEDS: Gabapentin 400 MG CAP PO SCH ×3 (09:13→20:08)
[2018-02-23] MEDS: TROSPIUM 20 MG TABLET PO SCH ×2 (09:13→20:08)
[2018-02-23] MEDS: Metoprolol Tartrate 25 MG TAB PO SCH (09:13)
[2018-02-23] MEDS: FLUoxetine HCl 20 MG CAP PO SCH (09:13)
[2018-02-23] MEDS: Enoxaparin Sodium 40 MG/0.4 ML SYRINGE SC SCH (09:14)
[2018-02-23] MEDS: Amlodipine 10 MG TAB PO SCH (09:14)
[2018-02-23] MEDS: Meloxicam 15 MG TAB PO SCH (09:14)
[2018-02-23] MEDS: HYDROcodone/Acetaminophen 10/325 mg Tablet PO PRN (11:11)
[2018-02-23] MEDS: Valsartan 80 MG TAB PO SCH (11:12)
--- NOTE | 2018-02-23 11:46 | PDOC.PN ---
- Subjective Encounter Start Date: 02/23/18 Encounter Start Time: 11:45 Subjective: hoarse, mild cough - Objective MAR Reviewed: Yes Vital Signs & Weight: Vital Signs (12 hours) Temp Pulse Resp BP BP Pulse Ox 02/23/18 09:14 85 145/83 H 02/23/18 08:00 97.6 F 85 16 93 L 02/23/18 07:25 97.6 F 85 16 145/83 H 93 L Weight Weight 185 lb 14.4 oz I&O: 02/22/18 02/23/18 02/24/18 06:59 06:59 06:59 Intake Total 2049 1360 Balance 2049 1360 Result Diagrams: 02/22/18 02:23 02/22/18 02:23 Phys Exam - Physical Examination Neck: no JVD rales RLL Cardiovascular: no significant murmur, irregular Gastrointestinal: soft, non-tender, positive bowel sounds Musculoskeletal: edema present Dx/Plan (1) Pneumonia Code(s): J18.9 - PNEUMONIA, UNSPECIFIED ORGANISM Status: Acute Qualifiers: Pneumonia type: due to unspecified organism Laterality: right Lung location: lower lobe of lung Qualified Code(s): J18.1 - Lobar pneumonia, unspecified organism Comment: continue IV antibiotics as below. Pt has tracheomalacia. Pulmonology consulted, need to clarify re: treatment options for tracheomalacia. (2) UTI (urinary tract infection) Status: Acute Qualifiers: Urinary tract infection type: site unspecified Hematuria presence: without hematuria Qualified Code(s): N39.0 - Urinary tract infection, site not specified Comment: citrobacter sensitive to fluoroquinolones (3) Sepsis Code(s): A41.9 - SEPSIS, UNSPECIFIED ORGANISM Status: Resolved Qualifiers: Sepsis type: sepsis due to unspecified organism Qualified Code(s): A41.9 - Sepsis, unspecified organism (4) Afib Code(s): I48.91 - UNSPECIFIED ATRIAL FIBRILLATION Status: Chronic Qualifiers: Atrial fibrillation type: chronic Qualified Code(s): I48.2 - Chronic atrial fibrillation Comment: continue aspirin. Not on anticoagulation due to high risk of bleeding (5) COPD (chronic obstructive pulmonary disease) Status: Chronic Comment: stable (6) Hypertension Code(s): I10 - ESSENTIAL (PRIMARY) HYPERTENSION Status: Chronic Qualifiers: Hypertension type: essential hypertension Qualified Code(s): I10 - Essential (primary) hypertension Comment: stable, BP controlled (7) Hypothyroidism Code(s): E03.9 - HYPOTHYROIDISM, UNSPECIFIED Status: Chronic Comment: stable - Plan DC cefepime, vanc. cont iv levaquin as it will cover both UTI and PNA -: cont amlodipime, statin, metoprolol -: cont nebs -: DC iv fluids * .
--- NOTE | 2018-02-23 13:46 | PRG ---
DATE OF SERVICE: 02/23/2018 OBJECTIVE: VITAL SIGNS: She remains afebrile. Blood pressure 140/80, sats are 93 on 2 liters, temperature 97. CHEST: Chest reveals decreased breath sounds, no wheezing. CARDIAC: Normal S1 and S2. No gallops. ABDOMEN: Soft, without mass. LABORATORY DATA: No lab was ordered today. IMPRESSION: Possibly right lung pneumonia, advanced age, respiratory failure. Severe deconditioning . PLAN: I would deescalate antibiotics, most of the infection is probably from the UTI, neb treatments , supportive care.
[2018-02-23] MEDS: Saccharomyces boulardii 250 MG CAP PO SCH (15:47)
[2018-02-23] MEDS ORDERED: diphenhydrAMINE 25 MG CAP PO PRN (18:30)
[2018-02-23] MEDS: ALPRAZolam 0.25 MG TAB PO SCH (20:07)
[2018-02-23] MEDS: Atorvastatin Calcium 10 MG TAB PO SCH (20:08)
[2018-02-24] MEDS: Meloxicam 15 MG TAB PO SCH (08:58)
[2018-02-24] MEDS: Ascorbic Acid 500 mg Chewable Tablet PO SCH (08:58)
[2018-02-24] MEDS: Valsartan 80 MG TAB PO SCH (08:59)
[2018-02-24] MEDS: Gabapentin 400 MG CAP PO SCH ×3 (08:59→20:35)
[2018-02-24] MEDS: Metoprolol Tartrate 25 MG TAB PO SCH (09:00)
[2018-02-24] MEDS: TROSPIUM 20 MG TABLET PO SCH ×2 (09:00→20:36)
[2018-02-24] MEDS: Amlodipine 10 MG TAB PO SCH (09:00)
[2018-02-24] MEDS: FLUoxetine HCl 20 MG CAP PO SCH (09:01)
[2018-02-24] MEDS: HYDROcodone/Acetaminophen 10/325 mg Tablet PO PRN (09:01)
[2018-02-24] MEDS: Levothyroxine Sodium 125 MCG TAB PO SCH (09:01)
[2018-02-24] MEDS: guaiFENesin ER 600 MG TAB PO SCH ×2 (09:01→20:36)
[2018-02-24] MEDS: Multivit, Therapeutic 1 TAB PO SCH (09:01)
[2018-02-24] MEDS: Enoxaparin Sodium 40 MG/0.4 ML SYRINGE SC SCH (09:02)
--- NOTE | 2018-02-24 11:02 | PDOC.PN ---
- Subjective Encounter Start Date: 02/24/18 Encounter Start Time: 11:01 Subjective: alert, doing well - Objective MAR Reviewed: Yes Vital Signs & Weight: Vital Signs (12 hours) Temp Pulse Resp BP BP Pulse Ox 02/24/18 09:00 76 161/84 H 02/24/18 08:00 97.8 F 76 16 94 L 02/24/18 07:56 97.8 F 76 16 146/76 H 94 L 02/24/18 07:48 98.0 F 81 18 161/84 H 93 L 02/24/18 02:13 94 L Weight Weight 185 lb 14.4 oz I&O: 02/23/18 02/24/18 02/25/18 06:59 06:59 06:59 Intake Total 1360 830 Balance 1360 830 Result Diagrams: 02/22/18 02:23 02/22/18 02:23 Phys Exam - Physical Examination Neck: no JVD Respiratory: clear to auscultation bilateral Cardiovascular: RRR, no significant murmur Gastrointestinal: soft, non-tender, positive bowel sounds Musculoskeletal: edema present Dx/Plan (1) Pneumonia Code(s): J18.9 - PNEUMONIA, UNSPECIFIED ORGANISM Status: Acute Qualifiers: Pneumonia type: due to unspecified organism Laterality: right Lung location: lower lobe of lung Qualified Code(s): J18.1 - Lobar pneumonia, unspecified organism Comment: continue IV antibiotics as below. Pt has tracheomalacia. Pulmonology consulted, need to clarify re: treatment options for tracheomalacia. (2) UTI (urinary tract infection) Status: Acute Qualifiers: Urinary tract infection type: site unspecified Hematuria presence: without hematuria Qualified Code(s): N39.0 - Urinary tract infection, site not specified Comment: citrobacter sensitive to fluoroquinolones (3) Sepsis Code(s): A41.9 - SEPSIS, UNSPECIFIED ORGANISM Status: Resolved Qualifiers: Sepsis type: sepsis due to unspecified organism Qualified Code(s): A41.9 - Sepsis, unspecified organism (4) Afib Code(s): I48.91 - UNSPECIFIED ATRIAL FIBRILLATION Status: Chronic Qualifiers: Atrial fibrillation type: chronic Qualified Code(s): I48.2 - Chronic atrial fibrillation Comment: continue aspirin. Not on anticoagulation due to high risk of bleeding (5) COPD (chronic obstructive pulmonary disease) Status: Chronic Comment: stable (6) Hypertension Code(s): I10 - ESSENTIAL (PRIMARY) HYPERTENSION Status: Chronic Qualifiers: Hypertension type: essential hypertension Qualified Code(s): I10 - Essential (primary) hypertension Comment: stable, BP controlled (7) Hypothyroidism Code(s): E03.9 - HYPOTHYROIDISM, UNSPECIFIED Status: Chronic Comment: stable - Plan transition to po levaquin, poss DC tomorrow -: cont amlodipine, metoprolol * .
--- NOTE | 2018-02-24 11:59 | PRG ---
DATE OF SERVICE: 02/24/2018 SUBJECTIVE: Sukhdev is a 78-year-old female appears to be in no acute respiratory distress. OBJECTIVE: VITAL SIGNS: Temperature 97, blood pressure 116/84, pulse 76, sats 94 on 2 liters. GENERAL: She is eating breakfast. CHEST: Chest reveals decreased breath sounds, no wheezing. CARDIAC: Normal S1, S2, no gallops. ABDOMEN: Soft, no masses. IMPRESSION: Pneumonia, severe deconditioning. I agree with switching over to p.o. antibiotics. She can be transferred back to the [facility]. Pulmonary will follow while in the hospital.
[2018-02-24] MEDS: Saccharomyces boulardii 250 MG CAP PO SCH (13:24)
[2018-02-24] MEDS: Atorvastatin Calcium 10 MG TAB PO SCH (20:36)
[2018-02-24] MEDS: ALPRAZolam 0.25 MG TAB PO SCH (21:51)
[2018-02-25] MEDS: Ondansetron ODT 4 MG TAB PO PRN (05:34)
[2018-02-25] MEDS: Valsartan 80 MG TAB PO SCH (07:58)
[2018-02-25] MEDS: Meloxicam 15 MG TAB PO SCH (07:59)
[2018-02-25] MEDS: FLUoxetine HCl 20 MG CAP PO SCH (08:00)
[2018-02-25] MEDS: TROSPIUM 20 MG TABLET PO SCH (08:00)
[2018-02-25] MEDS: Metoprolol Tartrate 25 MG TAB PO SCH (08:00)
[2018-02-25] MEDS: Enoxaparin Sodium 40 MG/0.4 ML SYRINGE SC SCH (08:00)
[2018-02-25] MEDS: guaiFENesin ER 600 MG TAB PO SCH (08:01)
[2018-02-25] MEDS: Levothyroxine Sodium 125 MCG TAB PO SCH (08:01)
[2018-02-25] MEDS: Amlodipine 10 MG TAB PO SCH (08:01)
[2018-02-25] MEDS: Multivit, Therapeutic 1 TAB PO SCH (08:02)
[2018-02-25] MEDS: Gabapentin 400 MG CAP PO SCH (08:02)
[2018-02-25] MEDS: Ascorbic Acid 500 mg Chewable Tablet PO SCH (08:02)
[2018-02-25 09:55] VITALS: TEMP 98.1
[2018-02-25 11:03] VITALS: BP 137/78
--- NOTE | 2018-02-25 12:17 | DIS ---
PRIMARY CARE PROVIDER: Dr. Deepak Ricardo. FINAL DIAGNOSES: Pneumonia, urinary tract infection with Citrobacter freundii, sepsis syndrome, atri al fibrillation, chronic obstructive pulmonary disease, hypertension, hypothyroidism. DISCHARGE MEDICATIONS: Levaquin 500 mg daily for 4 more days, Ventolin nebulizer q.2 hours p.r.n., a lprazolam 0.25 at bedtime, ProAir HFA 2 puffs q.4hours p.r.n., amlodipine 10 mg a day, atorvastatin 1 0 mg a day, vitamin D3 2000 units a day, fluoxetine 20 mg a day, gabapentin 1600 mg p.o. b.i.d. and 8 00 at bedtime, levothyroxine 125 mcg a day, Meloxicam 15 mg a day, metoprolol 25 mg a day, Protonix 4 0 mg a day, Klor-Con 10 mEq a day, Florastor 250 mg a day, Detrol-LA 4 mg daily, Diovan 320 mg a day, tramadol 50 mg p.o. b.i.d. p.r.n., Mucinex 600 mg p.o. b.i.d. ALLERGIES: AMOXICILLIN, CIPRO, takes Levaquin without problems, CLINDAMYCIN, ERYTHROMYCIN, METOLAZON E, NUBAIN, OXYCODONE, POTASSIUM CLAVULANATE, BACTRIM including SULFAMETHOXAZOLE and TRIMETHOPRIM, AMB IEN, FENTANYL. CODE STATUS: DO NOT RESUSCITATE. PENDING AT THE TIME OF DISCHARGE: Nothing. DIET: Heart healthy. HOSPITAL COURSE: The patient admitted to the [facility] through [facility] with fever. Her condition classified for sepsis syndrome with infections eit her in the lung or kidneys or both. She was started on vancomycin, cefepime, and Levaquin. Her init ial laboratory, comp metabolic profile: Sodium 134, BUN 24, glucose 125, otherwise normal. Urine hardwick d pyuria, leukocyte esterase and nitrite positive. White count was markedly elevated to 21.2, hemogl obin 12.7, platelet count 258,000. By 02/21/2018, her white count had come down to normal. Her chem istries remained unremarkable. Blood cultures grew a coagulase-negative Staph considered a contamina nt. The urine culture grew out a Citrobacter freundii sensitive to Levaquin, as this covered both pn eumonia. She had evidence of pneumonia on chest x-ray and UTI. She was continued on vent. The vanc omycin, etc., were stopped. Consultations were obtained with Dr. Landry Burks, Dr. Chip Hook. No p rocedures were done. The patient improved dramatically during hospital stay. She is doing well now. She is being transferred back to [facility] for continuing PT, OT, antibiotics. She will eventually be discharged home. She is to [facility] by Dr. Deepak Ricardo.
--- NOTE | 2018-02-25 13:19 | PRG ---
DATE OF SERVICE: 02/25/2018 SUBJECTIVE: She is doing well and no acute complaints. PHYSICAL EXAMINATION: VITAL SIGNS: Temperature 98.1, pulse 75, respiration 16, O2 sat 92% on room air, blood pressure 137/ 78. HEENT: Unremarkable. NECK: Supple. No JVD. CHEST: Clear without wheeze or rhonchi. CARDIAC: S1 and S2 regular. ABDOMEN: Soft. EXTREMITIES: No edema. ASSESSMENT: 1. Stable pulmonary status. 2. Pneumonia. PLAN: She is going back to the skilled nursing today. No further pulmonary recommendations. We will s ign off. Please recall if further assistance needed.
[2018-02-25] MEDS: Saccharomyces boulardii 250 MG CAP PO SCH (13:40)
== END 2018-02-25 16:01 | DRG 871 ==
LOC: ERS 15:07 → 2NO 17:45 → T4-B 02-20 12:26
PROVIDERS: ADMIT Internal Medicine; ATTEND Internal Medicine
DX: A41.9 Sepsis, unspecified organism (principal); J18.9 Pneumonia, unspecified organism; N39.0 Urinary tract infection, site not specified; J96.10 Chronic respiratory failure, unspecified whether with hypoxia or hypercapnia; I10 Essential (primary) hypertension; J45.909 Unspecified asthma, uncomplicated; Z79.899 Other long term (current) drug therapy; E78.5 Hyperlipidemia, unspecified; I48.2 Chronic atrial fibrillation; E03.9 Hypothyroidism, unspecified; J44.9 Chronic obstructive pulmonary disease, unspecified; Z66 Do not resuscitate; K21.9 Gastro-esophageal reflux disease without esophagitis; Z88.1 Allergy status to other antibiotic agents; Z88.5 Allergy status to narcotic agent; Z79.891 Long term (current) use of opiate analgesic; R53.81 Other malaise; M41.9 Scoliosis, unspecified; Z99.3 Dependence on wheelchair; J39.8 Other specified diseases of upper respiratory tract; M54.5 Low back pain; G89.29 Other chronic pain; E66.9 Obesity, unspecified; Z68.21 Body mass index [BMI] 21.0-21.9, adult
CPT/HCPCS: 36415; 71045; 71250; 74177; 80048; 80053; 80202; 81003; 81015; 83605; 85025; 87040; 87077; 87086; 87149; 87186; 87804; 93005; 94640; 96361; 96365; 96367; 96375; A4216; G8978-GP-CM; G8979-GP-CL; G8987-GO-CM; G8988-GO-CK; G8996-GN-CI; G8996-GN-CJ; G8997-GN-CH; G8997-GN-CI; J0692; J1580; J1650; J1956; J3370; J7050; J7620; Q0162

== ENCOUNTER 2018-04-27 16:38 | Inpatient (IN) | payer MEDICARE, OTHER ==
[2018-04-27 17:35] LABS: #Basophils 0.1 thou/uL (0.0-0.2); #Eosinphils 0.5 thou/uL (0.0-0.7); #Lymphocytes 1.3 thou/uL (1.20-3.40); #Monocytes 0.7 thou/uL (0.11-0.59); #Neutrophils 11.2 thou/uL (1.40-6.50); %Basophils 0.5 % (0.0-1.0); %Eosinophils 3.3 % (0.0-10.0); %Lymphocytes 9.6 % (21.0-51.0); %Monocytes 4.7 % (0.0-10.0); %Neutrophils 81.8 % (42.0-75.0); Hemoglobin 11.3 g/dL (12.0-16.0); Mean Corpuscular HGB CONC 31.8 g/dL (32.0-36.0); Mean Corpuscular Hemoglobin 28.6 pg (27.0-31.0); Mean Platelet Volume 7.1 fL (7.4-10.4); Platelet Count 256 thou/uL (130-400); Red Blood Cell (RBC) Count 3.94 mill/uL (4.20-5.40); White Blood Cell (WBC) Count 13.7 thou/uL (4.8-10.8)
[2018-04-27 17:36] LABS: Base Excess (BEa) -0.8 mEq/L (-2.0 to +3.0); CO2 Tension 34.8 mmHg (35.0-45.0); Hematocrit-ABG 36.3 % (36.0-47.0); O2 Tension (PaO2) 49.3 mmHg (> 70.0); pH, Arterial 7.44 (7.35-7.45)
[2018-04-27 17:37] LABS: Analyzer IN Cardio ER; Calcium, Ionized 1.2 mmol/L (1.12-1.30); Puncture Site L.R.
[2018-04-27] MEDS ORDERED: Albuterol Sulfate 2.5 mg/0.5 ml Neb ONE (17:50)
[2018-04-27 17:56] LABS: Bilirubin Negative (Negative); Blood, Urine Trace (Negative); Clarity CLOUDY (Clear); Glucose, Urine (Dipstick) Negative (Negative); Leukocyte Large (Negative); Nitrite Positive (Negative); Protein, Urine (Dipstick) 30 mg/dL (Neg-Trace); Specific Gravity, Urine 1.009 (1.002-1.036); Urobilinogen 0.2 mg/dL (0.2-1.0); pH, Urine 5.5 (5.0-9.0)
[2018-04-27 17:58] LABS: Bacteria/HPF 3+ HPF (None Seen); Hyaline Casts/LPF 7-10 HYALINE CAST LPF (0-3 Hyaline); Pathc Cast-AUWi Flag 2.03 (0-2.49); RBC/HPF None Seen HPF (0-3); Squamous Epithelial 0-3 HPF (0-3)
[2018-04-27 18:03] LABS: CKMB 1.2 ng/mL (0-6.6); Troponin I Less than 0.010 ng/mL (< 0.028)
[2018-04-27 18:22] LABS: ALT (SGPT) 7 U/L (8-55); AST (SGOT) 10 U/L (5-34); Albumin 3.4 g/dL (3.4-4.8); Alkaline Phosphatase 139 U/L (40-150); Anion Gap 16 mmol/L (10-20); BUN (Urea Nitrogen) 12 mg/dL (9.8-20.1); Bilirubin, Total 0.4 mg/dL (0.2-1.2); CK (CPK) 36 U/L (29-168); Calc. Creatinine Clearance 0 mL/min (70-130); Carbon Dioxide 20 mmol/L (23-31); Chloride 107 mmol/L (98-107); Estimated GFR-MDRD 46; Globulin 2.9 g/dL (2.4-3.5); Glucose 126 mg/dL (83-110); Lipase 8 U/L (8-78); Potassium 4.5 mmol/L (3.5-5.1); Protein, Total 6.3 g/dL (6.0-8.3); Sodium 138 mmol/L (136-145)
--- NOTE | 2018-04-27 18:51 | RAD ---
PORTABLE AP CHEST X-RAY 04/27/18 HISTORY: Subjective fever for last several days. Recent cough. COMPARISON: 03/29/18. FINDINGS: The cardiac silhouette is magnified by projection but stable in size. There are is mild increased den sity seen at the lateral left lung base which may be related to either atelectasis or developing pneu monia. Minimal patchy densities also seen in the right infrahilar region at the medial right lung bas e. Pulmonary vasculature is within normal limits. The vascular calcifications are seen in the thoraci c aorta. There is severe left glenohumeral osteoarthropathy noted. Vascular calcifications noted in t he thoracic aorta. IMPRESSION: Increased density lateral left lung base which may be related to atelectasis and overlying soft tissu e density. However, developing pneumonia at the lateral left lung base as well as medial right lung b ase cannot be excluded. Follow up PA and lateral chest x-ray is recommended. POS: SONIDO
[2018-04-27] MEDS ORDERED: Metoprolol Tartrate 5 MG/5 ML VIAL ONE (20:00)
[2018-04-27] MEDS ORDERED: Acetaminophen 325 MG TAB PO PRN (21:33)
[2018-04-27] MEDS ORDERED: Ondansetron HCl/PF 4 MG/2 ML Vial IVP PRN ×2 (21:33→21:35)
[2018-04-27] MEDS ORDERED: Ondansetron ODT 4 MG TAB SL PRN (21:35)
[2018-04-27] MEDS ORDERED: Sodium Chloride 0.9% 1,000 ML IV SCH (21:45)
[2018-04-27] MEDS ORDERED: Vancomycin HCl 1 GM in Premix Bag 1 BAG IVPB SCH (22:00)
[2018-04-27] MEDS: Sodium Chloride 0.9% 1,000 ML IV SCH (22:05)
[2018-04-27] MEDS: Albuterol Sulfate 2.5 mg/3 ml Neb NEB PRN (22:12)
[2018-04-28] MEDS: Albuterol Sulfate 2.5 mg/3 ml Neb NEB PRN (02:21)
[2018-04-28] MEDS ORDERED: Potassium Chloride 10 MEQ TAB PO PRN (03:36)
[2018-04-28] MEDS ORDERED: Loperamide HCl 2 MG CAP PO PRN (03:36)
[2018-04-28] MEDS ORDERED: Albuterol Sulfate 2.5 mg/3 ml Neb NEB PRN (03:36)
[2018-04-28] MEDS ORDERED: PROVENTIL INHALER 6.7 G (200 INHALATIONS) INH PRN (03:36)
[2018-04-28] MEDS ORDERED: traMADol HCl 50 MG TAB PO PRN (03:36)
[2018-04-28] MEDS: Levothyroxine Sodium 125 MCG TAB PO SCH (06:00)
[2018-04-28] MEDS: Enoxaparin Sodium 40 MG/0.4 ML SYRINGE SC SCH (08:46)
[2018-04-28] MEDS: Ascorbic Acid 500 mg Chewable Tablet PO SCH ×2 (08:46→08:56)
[2018-04-28] MEDS: FLUoxetine HCl 20 MG CAP PO SCH (08:46)
[2018-04-28] MEDS: TROSPIUM 20 MG TABLET PO SCH ×2 (08:46→21:39)
[2018-04-28] MEDS: Metoprolol Tartrate 25 MG TAB PO SCH (08:47)
[2018-04-28] MEDS: Multivitamin W/ Minerals 1 TAB PO SCH (08:47)
[2018-04-28] MEDS: Gabapentin 400 MG CAP PO SCH ×2 (08:47→18:28)
[2018-04-28] MEDS: Valsartan 80 MG TAB PO SCH (08:47)
[2018-04-28] MEDS: guaiFENesin ER 600 MG TAB PO SCH ×2 (08:48→21:37)
[2018-04-28 08:53] LABS: #Basophils 0.1 thou/uL (0.0-0.2); #Eosinphils 0.1 thou/uL (0.0-0.7); #Lymphocytes 1.1 thou/uL (1.20-3.40); #Monocytes 0.6 thou/uL (0.11-0.59); #Neutrophils 9.5 thou/uL (1.40-6.50); %Basophils 0.6 % (0.0-1.0); %Eosinophils 0.6 % (0.0-10.0); %Lymphocytes 9.5 % (21.0-51.0); %Monocytes 5.2 % (0.0-10.0); %Neutrophils 84.1 % (42.0-75.0); Mean Corpuscular HGB CONC 32.1 g/dL (32.0-36.0); Mean Corpuscular Hemoglobin 28.4 pg (27.0-31.0); Mean Corpuscular Volume 88.4 fL (78.0-98.0); Mean Platelet Volume 6.8 fL (7.4-10.4); Platelet Count 246 thou/uL (130-400); RBC Distribution Width 14.3 % (11.5-14.5); Red Blood Cell (RBC) Count 3.87 mill/uL (4.20-5.40); White Blood Cell (WBC) Count 11.3 thou/uL (4.8-10.8)
[2018-04-28] MEDS ORDERED: Non-Formulary Item 1 EACH (Valsartan [Diovan] 320 MG) PO SCH (09:00)
[2018-04-28 09:17] LABS: Anion Gap 15 mmol/L (10-20); BUN (Urea Nitrogen) 7 mg/dL (9.8-20.1); Calc. Creatinine Clearance 77 mL/min (70-130); Calcium 8.8 mg/dL (7.8-10.44); Carbon Dioxide 22 mmol/L (23-31); Chloride 105 mmol/L (98-107); Estimated GFR-MDRD 63; Glucose 125 mg/dL (83-110); Potassium 3.5 mmol/L (3.5-5.1); Sodium 138 mmol/L (136-145)
[2018-04-28] MEDS: Acetaminophen 500 MG TAB PO PRN ×2 (12:08→15:50)
[2018-04-28] MEDS: Sodium Chloride 0.9% 1,000 ML IV SCH (12:08)
--- NOTE | 2018-04-28 12:36 | HP ---
CODE STATUS: DNR/DNI. PRIMARY CARE PHYSICIAN: Dr. Deepak Ricardo. CHIEF COMPLAINT: Generalized weakness. HISTORY OF PRESENT ILLNESS: A 78-year-old female patient with past medical history of being bedbound , history of sepsis, UTI, pneumonia, C. diff, atrial fibrillation, bronchitis, hypertension, hypothyr oidism, hyperlipidemia, asthma, acute kidney injury. The patient came to the hospital after having g radually worsening severe generalized weakness, associated with fever, increased cough, sputum produc tion, burning on urination, no clear triggers, no alleviating factors. REVIEW OF SYSTEMS: Constitutional: The patient had fever, chills, generalized weakness, respiratory cough, sputum production, shortness of breath. Cardiovascular: No chest pain, palpitations. Gastr ointestinal: The patient had nausea. No vomiting, no diarrhea, no abdominal pain. Central Nervous System: No dizziness, headache, or feeling lightheaded. Genitourinary: Burning on urination. Extr emities: No leg swelling. All other systems were reviewed and negative except for the findings ment ioned above. PAST MEDICAL HISTORY: The patient has a history of respiratory failure, hypoxia, sepsis, UTI, pneumo caroline, C. diff, atrial fibrillation, bronchitis, hypertension, hypothyroidism, hyperlipidemia, asthma, acute kidney failure. PAST SURGICAL HISTORY: Appendectomy, hysterectomy, gallbladder removal. PSYCHIATRIC HISTORY: No previous psychiatric history. SOCIAL HISTORY: No alcohol, no drugs. No smoking history. FAMILY HISTORY: Reviewed and noncontributory for current presentation. ALLERGIES: AMOXICILLIN, AUGMENTIN, BACTRIM, CIPROFLOXACIN, CLINDAMYCIN, ERYTHROMYCIN, FENTANYL, LATE X, METOLAZONE, NUBAIN, OXYCONTIN, POTASSIUM GLUCONATE, SULFA, ZOLPIDEM. REPORTED MEDICATIONS: Synthroid, amlodipine, valsartan, fluoxetine, furosemide, meloxicam, [place], at orvastatin, alprazolam, Centrum, tolterodine, gabapentin, Klor-Con, vitamin D3, vitamin C, Nexium, Za ntac, promethazine, albuterol, ProAir, cephalexin. PHYSICAL EXAMINATION: VITAL SIGNS: On presentation, blood pressure 172/89, with a heart rate of 113, respiratory rate was 20, temperature 98.2, pain 10/10, oxygen saturation 93 on room air. GENERAL: The patient is alert, oriented, and not in any acute distress, tachypneic. HEENT: Eyes: Normal conjunctivae. Moist oral mucosa. Anicteric. NECK: No JVD. RESPIRATORY: Bilateral air entry is decreased. The patient has rales, wheezing, symmetric expansion . CARDIOVASCULAR: Patient is tachycardic, regular rhythm. No murmurs, no gallop. EXTREMITIES: Bilat eral leg edema. ABDOMEN: Soft, normal bowel sounds. MUSCULOSKELETAL: Baseline range of motion and strength. No tenderness. SKIN: Warm and intact. No pallor, no rash, no redness. NEUROLOGIC: Baseline sensory. No evidence of any new focal weakness. Baseline speech. Cranial ner ves seem to be intact. PSYCHIATRIC: The patient is in good mood. No anxiety, oriented, optimal judgment. LABORATORY AND DIAGNOSTIC DATA: Reviewed. White count 13.7, hemoglobin 11.3, MCV 90, platelet count 256,000. ABG was done, pH 7.44 with pCO2 of 34 and pO2 of 49. Chemistry: Sodium 138, potassium 4. 5, chloride 107, carbon dioxide 20, anion gap 16, BUN 12, creatinine 1.15, glucose 126. LFTs are nor mal. Beta-natriuretic peptide is 200.3. UA was done white count greater than 50, too numerous to co unt. Chest x-ray, increased density left lung base which may be related to atelectasis overlyi ng soft tissue density; however, developing pneumonia in the lateral left lung base as well as medial right lung base cannot be excluded. Follow up PA and lateral chest x-ray is recommended. EKG was r eviewed. The patient has sinus tachycardia at the rate of 123, . ASSESSMENT AND PLAN: The patient was placed in the hospital the following medical problem: 1. Sepsis. The patient had fever, tachycardia, presenting with source, possible pneumonia, acute re spiratory failure needing oxygen to keep saturation above 90, we will treat with broad spectrum antib iotics, follow cultures, adjust treatment as per sensitivity. 2. Acute hypoxic respiratory failure, needing oxygen support, likely secondary to pneumonia. We clay l continue treatment as above. Continue oxygen. 3. Pneumonia in the left lower lobe was seen on the chest x-ray, treatment as above. 4. Urinary tract infection, positive UA, follow cultures, adjust treatment as needed. 5. History of atrial fibrillation, reconciled home medications. 6. History of hypothyroidism: Continue hormone replacement. 7. Hyperlipidemia, reconciled home medications. 8. History of chronic kidney disease, monitor kidney function, adjust treatment as needed. 9. Uncontrolled hypertension on presentation with systolic blood pressure 172, reconciled home medic ations. Adjust treatment as needed. We will not treat aggressively since patient has sepsis and ris k for deterioration and septic shock. 10. Deep venous thrombosis prophylaxis.
[2018-04-28] MEDS: Saccharomyces boulardii 250 MG CAP PO SCH (14:43)
[2018-04-28] MEDS: MEROPENEM 1 GM/50 ML 1 GM in Premix Bag 1 BAG IVPB SCH (15:50)
--- NOTE | 2018-04-28 16:31 | PDOC.PN ---
- Subjective Encounter Start Date: 04/28/18 Encounter Start Time: 16:29 Subjective: nsg notes rev, kenyon ovn, sister at bedside, no new c/o but still has a poor -: appetite, feels weak, and has a bad cough. denies nay dizziness, lighthead -: edness or palpitations - Objective Resuscitation Status: Resuscitation Status DNR:Do Not Resuscitate Vital Signs & Weight: Vital Signs (12 hours) Temp Pulse Resp BP Pulse Ox 04/28/18 11:23 93 L 04/28/18 11:11 98.5 F 97 20 152/70 H 04/28/18 07:25 98.6 F 108 H 18 173/77 H 92 L 04/28/18 04:46 98.1 F 109 H 22 H 177/80 H Weight Admit Weight 201 lb 1.6 oz Weight 201 lb 1.6 oz Result Diagrams: 04/28/18 08:44 04/28/18 08:44 Phys Exam - Physical Examination Constitutional: NAD seated in the hospital bed HEENT: sclera anicteric Respiratory: no wheezing, no rales, no rhonchi coarse throughout and coughing with any significant intentional inspiration Cardiovascular: RRR, no significant murmur, no rub soft heart tones Gastrointestinal: no distention, positive bowel sounds Musculoskeletal: no edema, pulses present Neurological: moves all 4 limbs Psychiatric: normal affect Dx/Plan - Plan cont current plan of care, plan discussed w/ family, continue antibiotics, respiratory therapy, out of bed/ambulate * . Review of Systems - Medications/Allergies Allergies/Adverse Reactions: Allergies Allergy/AdvReac Type Severity Reaction Status Date / Time amoxicillin trihydrate Allergy Diarrhea Verified 02/19/18 19:31 [From Augmentin] ciprofloxacin [From Cipro] Allergy Rash Verified 02/19/18 19:31 clindamycin Allergy Verified 02/19/18 19:31 erythromycin base Allergy Verified 02/19/18 19:31 [From Erythrocin] erythromycin lactobionate Allergy Verified 02/19/18 19:31 [From Erythrocin] Latex, Natural Rubber Allergy Rash Verified 02/19/18 19:31 metolazone [Metolazone] Allergy Verified 02/19/18 19:31 nalbuphine HCl [From Nubain] Allergy Verified 02/19/18 19:31 oxycodone HCl Allergy Rash Verified 02/19/18 19:31 [From OxyContin] potassium clavulanate Allergy Diarrhea Verified 02/19/18 19:31 [From Augmentin] Sulfa (Sulfonamide Allergy Rash Verified 02/19/18 19:31 Antibiotics) sulfamethoxazole Allergy Verified 02/19/18 19:31 [From Bactrim] trimethoprim [From Bactrim] Allergy Verified 02/19/18 19:31 zolpidem tartrate AdvReac Intermediate "crazy" Verified 02/19/18 19:31 [From Ambien] fentanyl [From Duragesic] AdvReac Mild Anxiety Verified 02/19/18 19:31 Medications: Current Medications Acetaminophen (Tylenol) 500 mg PO Q6H PRN PRN Reason: Headache/Fever or Pain Last Admin: 04/28/18 15:50 Dose: 500 mg Albuterol Sulfate (Proventil Hfa) 2 puff INH Q4H PRN PRN Reason: Wheezing Albuterol Sulfate (Ventolin) 2.5 mg NEB Q2H PRN PRN Reason: Wheezing Albuterol/Ipratropium (Duoneb) 3 ml NEB Q6H PRN PRN Reason: SOB &/or Wheezing Alprazolam (Xanax) 0.25 mg PO [facility] Ascorbic Acid (Vitamin C) 500 mg PO DAILY [facility] Last Admin: 04/28/18 08:56 Dose: Not Given Atorvastatin Calcium (Lipitor) 10 mg PO [facility] Cholecalciferol (Vitamin D3) 2,000 units PO DAILY [facility] Last Admin: 04/28/18 08:46 Dose: 2,000 units Enoxaparin Sodium (Lovenox) 40 mg SC 0900 [facility] Last Admin: 04/28/18 08:46 Dose: 40 mg Fluoxetine HCl (Prozac) 20 mg PO DAILY [facility] Last Admin: 04/28/18 08:46 Dose: 20 mg Gabapentin (Neurontin) 1,600 mg PO [facility]ID[facility] Last Admin: 04/28/18 08:47 Dose: 1,600 mg Gabapentin (Neurontin) 800 mg PO [facility] Guaifenesin (Mucinex) 600 mg PO BID [facility] Last Admin: 04/28/18 08:48 Dose: 600 mg Sodium Chloride (Normal Saline 0.9%) 1,000 mls @ 75 mls/hr IV .[id number] [facility] Last Admin: 04/28/18 12:08 Dose: 1,000 mls Meropenem 1 gm/ Device 50 mls @ 100 mls/hr IVPB [id number] [facility] Last Admin: 04/28/18 15:50 Dose: 50 mls Iron/Minerals/Multivitamins (Theragran M) 1 tab PO DAILY [facility] Last Admin: 04/28/18 08:47 Dose: 1 tab Levothyroxine Sodium (Synthroid) 125 mcg PO 0600 [facility] Last Admin: 04/28/18 06:00 Dose: 125 mcg Loperamide HCl (Imodium) 2 mg PO PRN PRN PRN Reason: Diarrhea/Loose Stools Metoprolol Tartrate (Lopressor) 25 mg PO DAILY [facility] Last Admin: 04/28/18 08:47 Dose: 25 mg Ondansetron HCl (Zofran) 4 mg IVP Q6H PRN PRN Reason: Nausea/Vomiting Pantoprazole Sodium (Protonix) 40 mg PO DAILY [facility] Last Admin: 04/28/18 08:48 Dose: 40 mg Potassium Chloride (Klor-Con 10) 10 meq PO DAILY PRN PRN Reason: WHEN TAKING LASIX Saccharomyces Boulardii (Florastor) 250 mg PO 1400 [facility] Last Admin: 04/28/18 14:43 Dose: Not Given Sodium Chloride (Flush - Normal Saline) 10 ml IVF Q12HR [facility] Sodium Chloride (Flush - Normal Saline) 10 ml IVF PRN PRN PRN Reason: Saline Flush Tramadol HCl (Ultram) 50 mg PO BID PRN PRN Reason: Pain 4-6 Last Admin: 04/28/18 08:48 Dose: 50 mg Trospium (Trospium) 20 mg PO BID [facility] Last Admin: 04/28/18 08:46 Dose: 20 mg Valsartan (Diovan) 320 mg PO DAILY [facility] Last Admin: 04/28/18 08:47 Dose: 320 mg
[2018-04-28] MEDS ORDERED: Vancomycin HCl 1 GM in Premix Bag 1 BAG IVPB SCH (17:00)
[2018-04-28] MEDS ORDERED: Furosemide 40 MG TAB PO PRN (17:49)
--- NOTE | 2018-04-28 19:26 | CON ---
DATE OF CONSULTATION: 04/28/2018 REASON FOR CONSULTATION: General malaise, fever, cough. 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 These symptoms have developed over the past week before admission, she had been home for the past 3 weeks after being rehabilitation after the most recent hospital admission. No headaches, no visual symptoms. No sore throat, aphasia, dysphagia, no chest pain, no sputum production, no abdominal pain, no genitourinary symptoms, no diarrhea. PAST MEDICAL HISTORY: Hypertension, hypothyroidism, tracheobronchial malacia, collapse of bronchial and tracheal airways, recurrent episodes of bronchitis, pneumonia, prior UTIs. SOCIAL HISTORY: Never a smoker. There had been living in town with for the past 3 weeks. ALLERGIES: AMOXICILLIN and BACTRIM with skin rash. FAMILY HISTORY: Noncontributory. CURRENT MEDICATIONS: Tylenol, Proventil, Ventolin, DuoNeb, Xanax, vitamin C, Lipitor, Lovenox, Prozac, Neurontin, Mucinex, Theragran, levofloxacin, levothyroxine, loperamide, Lopressor, Protonix, Florastor, Ultram, trospium, vancomycin. PHYSICAL EXAMINATION: VITAL SIGNS: T-max 98.3, blood pressure 150/70, pulse 97, respirations 20, and O2 sat 93%. SKIN: Shows the right first toe nail with evidence of paronychia little bit of purulence at the edge of the nail bed. Most of the nail has been removed or fell off. She has a peripheral IV access. Voiding in the diaper. HEENT: Ocular movements conjugate. She appears chronically ill, but in no acute distress. Oral cavity moist. NECK: Supple. LUNGS: With scattered rhonchi. HEART: S1 and S2 regular rate, diminished heart sounds. Soft aortic murmur. ABDOMEN: Soft, not distended or tender. No ascites. No bladder distention. EXTREMITIES: She has quite severe osteoarthritis of knees, ankles, and hips. She has 1+ edema lower extremities. Pulses are 1+ in dorsalis pedis. She is able to wiggle her toes, but cannot lift the knees from the bed. She is able to move her upper extremities well. Cognitive function appears to be intact. LABORATORY DATA: White cell count is 13,000, now 11. Hemoglobin 11, platelets 246 with 84% neutrophils, pH 7.44, pCO2 of 34, pO2 of 49 this is arterial blood gas. Sodium 138, creatinine 1.15 and 0.87. Liver profile normal. Albumin 3.4 , globulin 2.9. Urinalysis greater than 50 wbc's. Microbiology with 2 sets of negative blood cultures thus far and have E. coli retrieved from urine sample. Previous E. coli was resistant to levofloxacin, susceptible to meropenem, Zosyn , tobramycin, Bactrim. IMAGING STUDIES: Include a chest x-ray with increased density lateral left lung base. The last CT abdomen and chest scan showed consolidation right lower lobe in February, fluid debris right lobe bronchial tree and the tracheal bronchomalacia with multiple areas of narrowing. ASSESSMENT: Severe tracheo-bronchial malacia with recurrent episodes of respiratory infection, urinary abnormalities, cough with worsening hypoxemia. DISCUSSION: The differential diagnosis includes another episode of respiratory infection associated with her tracheomalacia as the most likely scenario. The urinary findings could be innocent bystanders in the presentation, although they will have to be treated. The patient will be transitioned to meropenem. Discontinue levofloxacin and vancomycin MTDD
[2018-04-28] MEDS ORDERED: Gabapentin 400 MG CAP PO SCH (21:00)
[2018-04-28] MEDS: HYDROcodone/Acetaminophen 10/325 mg Tablet PO PRN (21:37)
[2018-04-28] MEDS: Atorvastatin Calcium 10 MG TAB PO SCH (21:37)
[2018-04-28] MEDS: ALPRAZolam 0.25 MG TAB PO SCH (21:39)
[2018-04-28] MEDS: Famotidine 20 MG TAB PO SCH (21:39)
[2018-04-29] MEDS: Sodium Chloride 0.9% 1,000 ML IV SCH (00:01)
[2018-04-29] MEDS: Levothyroxine Sodium 125 MCG TAB PO SCH (05:31)
[2018-04-29 07:42] LABS: #Eosinphils 0.5 thou/uL (0.0-0.7); #Lymphocytes 1.8 thou/uL (1.20-3.40); #Monocytes 0.8 thou/uL (0.11-0.59); #Neutrophils 6.9 thou/uL (1.40-6.50); %Basophils 0.3 % (0.0-1.0); %Eosinophils 5.4 % (0.0-10.0); %Lymphocytes 17.8 % (21.0-51.0); %Monocytes 8.3 % (0.0-10.0); %Neutrophils 68.1 % (42.0-75.0); Hemoglobin 10.1 g/dL (12.0-16.0); Mean Corpuscular HGB CONC 32.1 g/dL (32.0-36.0); Mean Corpuscular Hemoglobin 28.5 pg (27.0-31.0); Mean Corpuscular Volume 88.6 fL (78.0-98.0); Mean Platelet Volume 6.9 fL (7.4-10.4); Platelet Count 246 thou/uL (130-400); RBC Distribution Width 14.4 % (11.5-14.5); Red Blood Cell (RBC) Count 3.55 mill/uL (4.20-5.40); White Blood Cell (WBC) Count 10.1 thou/uL (4.8-10.8)
[2018-04-29] MEDS: Enoxaparin Sodium 40 MG/0.4 ML SYRINGE SC SCH (07:49)
[2018-04-29] MEDS: Gabapentin 400 MG CAP PO SCH ×3 (07:50→17:03)
[2018-04-29] MEDS: Metoprolol Tartrate 25 MG TAB PO SCH (07:50)
[2018-04-29] MEDS: guaiFENesin ER 600 MG TAB PO SCH (07:50)
[2018-04-29] MEDS: Multivitamin W/ Minerals 1 TAB PO SCH (07:51)
[2018-04-29] MEDS: FLUoxetine HCl 20 MG CAP PO SCH (07:51)
[2018-04-29] MEDS: Amlodipine 10 MG TAB PO SCH (07:51)
[2018-04-29] MEDS: HYDROcodone/Acetaminophen 10/325 mg Tablet PO PRN ×3 (07:51→20:33)
[2018-04-29] MEDS: TROSPIUM 20 MG TABLET PO SCH ×2 (07:52→20:33)
[2018-04-29] MEDS: Valsartan 80 MG TAB PO SCH (07:52)
[2018-04-29] MEDS: Meloxicam 15 MG TAB PO SCH (07:52)
[2018-04-29] MEDS: Ascorbic Acid 500 mg Chewable Tablet PO SCH (07:53)
[2018-04-29 07:56] LABS: Anion Gap 12 mmol/L (10-20); BUN (Urea Nitrogen) 6 mg/dL (9.8-20.1); Calc. Creatinine Clearance 75 mL/min (70-130); Calcium 8.2 mg/dL (7.8-10.44); Carbon Dioxide 25 mmol/L (23-31); Chloride 107 mmol/L (98-107); Estimated GFR-MDRD 66; Glucose 101 mg/dL (83-110); Sodium 141 mmol/L (136-145)
[2018-04-29] MEDS ORDERED: Non-Formulary Item 1 EACH (Esomeprazole Magnesium [Nexium] 40 MG) PO SCH (08:00)
[2018-04-29 08:01] LABS: Potassium 2.9 mmol/L (3.5-5.1)
--- NOTE | 2018-04-29 09:04 | PDOC.PN ---
- Subjective Encounter Start Date: 04/29/18 (f/u lc) Encounter Start Time: 09:04 Subjective: Pt c/o - Objective Resuscitation Status: Resuscitation Status DNR:Do Not Resuscitate Vital Signs & Weight: Vital Signs (12 hours) Temp Pulse Resp BP BP Pulse Ox 04/29/18 07:51 86 168/78 H 04/29/18 07:45 98.5 F 97 18 168/78 H 95 04/29/18 03:23 97.2 F L 86 20 167/77 H 94 L 04/29/18 02:15 79 20 96 04/29/18 00:00 98.1 F 79 22 H 136/63 96 04/28/18 22:01 82 20 94 L Weight Admit Weight 201 lb 1.6 oz Weight 191 lb I&O: 04/28/18 04/29/18 04/30/18 06:59 06:59 06:59 Intake Total 2630 Balance 2630 Result Diagrams: 04/29/18 07:17 04/29/18 07:17 Dx/Plan - Plan * .
--- NOTE | 2018-04-29 09:10 | PDOC.PN ---
- Subjective Encounter Start Date: 04/29/18 (f/u sepsis) Encounter Start Time: 09:08 Subjective: Pt c/o chronic back pain - states not new. Also has a strong cough. -: Poor appetite in general, taking fluids - Objective Resuscitation Status: Resuscitation Status DNR:Do Not Resuscitate Vital Signs & Weight: Vital Signs (12 hours) Temp Pulse Resp BP BP Pulse Ox 04/29/18 07:51 86 168/78 H 04/29/18 07:45 98.5 F 97 18 168/78 H 95 04/29/18 03:23 97.2 F L 86 20 167/77 H 94 L 04/29/18 02:15 79 20 96 04/29/18 00:00 98.1 F 79 22 H 136/63 96 04/28/18 22:01 82 20 94 L Weight Admit Weight 201 lb 1.6 oz Weight 191 lb I&O: 04/28/18 04/29/18 04/30/18 06:59 06:59 06:59 Intake Total 2630 Balance 2630 Result Diagrams: 04/29/18 07:17 04/29/18 07:17 EKG Reviewed by me: Yes (tele sinus 80's, increases to 120's with coughing/ moving, brief svt) Phys Exam - Physical Examination Constitutional: NAD Respiratory: no wheezing, no rales, no rhonchi, clear to auscultation bilateral frequent cough, but not associated with deep breathing Cardiovascular: RRR, no significant murmur Gastrointestinal: soft, non-tender, no distention, positive bowel sounds Musculoskeletal: no edema Neurological: non-focal, moves all 4 limbs Psychiatric: normal affect, A&O x 3 Skin: no rash Dx/Plan (1) Sepsis Code(s): A41.9 - SEPSIS, UNSPECIFIED ORGANISM Status: Resolved Qualifiers: Sepsis type: sepsis due to unspecified organism Qualified Code(s): A41.9 - Sepsis, unspecified organism (2) Pneumonia Code(s): J18.9 - PNEUMONIA, UNSPECIFIED ORGANISM Status: Acute Qualifiers: Laterality: bilateral (3) Chronic anemia Code(s): D64.9 - ANEMIA, UNSPECIFIED Status: Chronic (4) Chronic low back pain Code(s): M54.5 - LOW BACK PAIN; G89.29 - OTHER CHRONIC PAIN Status: Chronic (5) GERD (gastroesophageal reflux disease) Code(s): K21.9 - GASTRO-ESOPHAGEAL REFLUX DISEASE WITHOUT ESOPHAGITIS Status: Chronic Qualifiers: Esophagitis presence: without esophagitis Qualified Code(s): K21.9 - Gastro -esophageal reflux disease without esophagitis (6) Hypertension Code(s): I10 - ESSENTIAL (PRIMARY) HYPERTENSION Status: Chronic Qualifiers: Hypertension type: essential hypertension Qualified Code(s): I10 - Essential (primary) hypertension (7) Hypothyroidism Code(s): E03.9 - HYPOTHYROIDISM, UNSPECIFIED Status: Chronic (8) Physical deconditioning Code(s): R53.81 - OTHER MALAISE Status: Chronic (9) Asthmatic bronchitis Code(s): J45.909 - UNSPECIFIED ASTHMA, UNCOMPLICATED Status: Resolved Qualifiers: Asthma complication type: with acute exacerbation (10) Hypokalemia Code(s): E87.6 - HYPOKALEMIA Status: Resolved (11) UTI (urinary tract infection) Status: Resolved Qualifiers: Urinary tract infection type: acute cystitis Hematuria presence: without hematuria Qualified Code(s): N30.00 - Acute cystitis without hematuria - Plan * hypokalemia - replace with IV potassium, check magnesium level and recheck at 16:00 today * * cough - schedule nebs, add tessalon perles, and add prn guaifenisin, humidify oxygen * back pain - on norco prn here as well. * d/c ivf and encourage po intake, add ensure * * sepsis - pneumonia and uti - on meropenem, appreciate ID consult * pt/ot as tolerated * other med conditions- continue home meds/stable * * dvt prophy - lovenox * gi prophy - not indicated, on home ppi and h2 jacqui, continue * code status dnr * * reviewed plan of care with patient, no questions or further needs at end of eval * pt remains at high risk in current condition
[2018-04-29] MEDS: Diabetic Tussin 200 MG/10 ML UDCUP PO PRN ×2 (10:05→22:16)
[2018-04-29] MEDS: MEROPENEM 1 GM/50 ML 1 GM in Premix Bag 1 BAG IVPB SCH ×4 (10:06→23:29)
[2018-04-29] MEDS: Potassium Chloride 10 MEQ in Premix Bag 1 BAG IVPB SCH ×4 (11:00→17:02)
[2018-04-29] MEDS: Saccharomyces boulardii 250 MG CAP PO SCH (14:53)
--- NOTE | 2018-04-29 15:37 | PDOC.EVN ---
Event Note - Event Note Event Note: RN called and pt with right great toe sores and labial sores - is on meropenem, wound care consult placed.
[2018-04-29 16:26] LABS: Anion Gap 12 mmol/L (10-20); BUN (Urea Nitrogen) 8 mg/dL (9.8-20.1); Calc. Creatinine Clearance 67 mL/min (70-130); Calcium 7.8 mg/dL (7.8-10.44); Carbon Dioxide 24 mmol/L (23-31); Chloride 104 mmol/L (98-107); Estimated GFR-MDRD 57; Glucose 119 mg/dL (83-110); Magnesium 1.6 mg/dL (1.6-2.6); Potassium 3.5 mmol/L (3.5-5.1); Sodium 136 mmol/L (136-145)
[2018-04-29] MEDS: Famotidine 20 MG TAB PO SCH (20:33)
[2018-04-29] MEDS: Atorvastatin Calcium 10 MG TAB PO SCH (20:33)
[2018-04-29] MEDS: ALPRAZolam 0.25 MG TAB PO SCH (22:15)
[2018-04-30 04:18] LABS: Anion Gap 11 mmol/L (10-20); BUN (Urea Nitrogen) 7 mg/dL (9.8-20.1); Calc. Creatinine Clearance 76 mL/min (70-130); Calcium 8.4 mg/dL (7.8-10.44); Carbon Dioxide 24 mmol/L (23-31); Chloride 105 mmol/L (98-107); Estimated GFR-MDRD 66; Glucose 104 mg/dL (83-110); Potassium 3.1 mmol/L (3.5-5.1); Sodium 137 mmol/L (136-145)
[2018-04-30 04:23] LABS: #Basophils 0.1 thou/uL (0.0-0.2); #Eosinphils 0.9 thou/uL (0.0-0.7); #Lymphocytes 1.5 thou/uL (1.20-3.40); #Monocytes 0.8 thou/uL (0.11-0.59); #Neutrophils 4.6 thou/uL (1.40-6.50); %Eosinophils 11.6 % (0.0-10.0); %Lymphocytes 18.5 % (21.0-51.0); %Neutrophils 58.9 % (42.0-75.0); Hemoglobin 10.1 g/dL (12.0-16.0); Mean Corpuscular HGB CONC 32.9 g/dL (32.0-36.0); Mean Corpuscular Hemoglobin 29.4 pg (27.0-31.0); Mean Corpuscular Volume 89.4 fL (78.0-98.0); Mean Platelet Volume 7.3 fL (7.4-10.4); Platelet Count 229 thou/uL (130-400); RBC Distribution Width 14.4 % (11.5-14.5); Red Blood Cell (RBC) Count 3.45 mill/uL (4.20-5.40); White Blood Cell (WBC) Count 7.9 thou/uL (4.8-10.8)
[2018-04-30] MEDS: Diabetic Tussin 200 MG/10 ML UDCUP PO PRN ×4 (05:34→23:55)
[2018-04-30] MEDS: HYDROcodone/Acetaminophen 10/325 mg Tablet PO PRN ×4 (05:34→21:49)
[2018-04-30] MEDS: Levothyroxine Sodium 125 MCG TAB PO SCH (05:34)
[2018-04-30] MEDS: MEROPENEM 1 GM/50 ML 1 GM in Premix Bag 1 BAG IVPB SCH ×3 (08:56→23:52)
[2018-04-30] MEDS: Gabapentin 400 MG CAP PO SCH ×3 (08:56→17:29)
[2018-04-30] MEDS: Amlodipine 10 MG TAB PO SCH (08:57)
[2018-04-30] MEDS: Valsartan 80 MG TAB PO SCH (08:57)
[2018-04-30] MEDS: FLUoxetine HCl 20 MG CAP PO SCH (08:57)
[2018-04-30] MEDS: TROSPIUM 20 MG TABLET PO SCH ×2 (08:57→21:49)
[2018-04-30] MEDS: Meloxicam 15 MG TAB PO SCH (08:58)
[2018-04-30] MEDS: Multivitamin W/ Minerals 1 TAB PO SCH (08:58)
[2018-04-30] MEDS: Ascorbic Acid 500 mg Chewable Tablet PO SCH (08:59)
[2018-04-30] MEDS: Enoxaparin Sodium 40 MG/0.4 ML SYRINGE SC SCH (08:59)
[2018-04-30] MEDS: Saccharomyces boulardii 250 MG CAP PO SCH (13:15)
--- NOTE | 2018-04-30 13:21 | PDOC.PN ---
- Subjective Encounter Start Date: 04/30/18 (f/u pneumonia) Encounter Start Time: 13:19 Subjective: Pt c/o dry persistent cough now causing abd pain. denies n/v. -: 3-4 episodes of diarrhea yesterday, none today - Objective Resuscitation Status: Resuscitation Status DNR:Do Not Resuscitate Vital Signs & Weight: Vital Signs (12 hours) Temp Pulse Resp BP Pulse Ox 04/30/18 12:42 120 H 16 04/30/18 09:30 98.7 F 82 20 94 L 04/30/18 08:57 85 04/30/18 08:01 98.7 F 82 20 135/73 94 L 04/30/18 06:47 80 16 Weight Admit Weight 201 lb 1.6 oz Weight 190 lb 6 oz I&O: 04/29/18 04/30/18 05/01/18 06:59 06:59 06:59 Intake Total 2630 1340 Balance 2630 1340 Result Diagrams: 04/30/18 03:34 04/30/18 03:34 EKG Reviewed by me: Yes (sinus 70-100's) Phys Exam - Physical Examination Constitutional: NAD Respiratory: no wheezing, no rales, no rhonchi fair air movement Cardiovascular: RRR, no significant murmur tachycardic Gastrointestinal: soft, non-tender, no distention, positive bowel sounds Musculoskeletal: no edema Neurological: non-focal Psychiatric: normal affect Skin: no rash Dx/Plan (1) Sepsis Code(s): A41.9 - SEPSIS, UNSPECIFIED ORGANISM Status: Resolved Qualifiers: Sepsis type: sepsis due to unspecified organism Qualified Code(s): A41.9 - Sepsis, unspecified organism (2) Pneumonia Code(s): J18.9 - PNEUMONIA, UNSPECIFIED ORGANISM Status: Acute Qualifiers: Laterality: bilateral (3) Chronic anemia Code(s): D64.9 - ANEMIA, UNSPECIFIED Status: Chronic (4) Chronic low back pain Code(s): M54.5 - LOW BACK PAIN; G89.29 - OTHER CHRONIC PAIN Status: Chronic (5) GERD (gastroesophageal reflux disease) Code(s): K21.9 - GASTRO-ESOPHAGEAL REFLUX DISEASE WITHOUT ESOPHAGITIS Status: Chronic Qualifiers: Esophagitis presence: without esophagitis Qualified Code(s): K21.9 - Gastro -esophageal reflux disease without esophagitis (6) Hypertension Code(s): I10 - ESSENTIAL (PRIMARY) HYPERTENSION Status: Chronic Qualifiers: Hypertension type: essential hypertension Qualified Code(s): I10 - Essential (primary) hypertension (7) Hypothyroidism Code(s): E03.9 - HYPOTHYROIDISM, UNSPECIFIED Status: Chronic (8) Physical deconditioning Code(s): R53.81 - OTHER MALAISE Status: Chronic (9) Asthmatic bronchitis Code(s): J45.909 - UNSPECIFIED ASTHMA, UNCOMPLICATED Status: Acute Qualifiers: Asthma complication type: with acute exacerbation (10) Hypokalemia Code(s): E87.6 - HYPOKALEMIA Status: Acute (11) UTI (urinary tract infection) Status: Resolved Qualifiers: Urinary tract infection type: acute cystitis Hematuria presence: without hematuria Qualified Code(s): N30.00 - Acute cystitis without hematuria - Plan * Persistent cough and dyspnea - add pulmicort, continue nebs, and request Pulmonology consult for additional recommendations * swallow study given the coughing noted with food * * hypokalemia - scheduled oral replacement * * anemia - chronic and stable. * back pain - continue prn norco * sepsis - pneumonia and uti - on meropenem, appreciate ID consult * pt/ot * continue other home meds * dvt prophy - lovenox * gi prophy - not indicated * code status dnr * * reviewed the plan with patient, her daughter and sister, no questions or further needs at end of eval. The demonstrate understanding and agree.
--- NOTE | 2018-04-30 17:28 | CON ---
DATE OF CONSULTATION: 04/30/2018 TIME OF EVALUATION: 1635 to 1650 LOCATION: [address] [place] [address] PATIENT ROOM: 264 REQUESTING PHYSICIAN: Maddi Ch M.D. REASON FOR CONSULTATION: Suspected labial abscess versus lesion. HISTORY OF PRESENT ILLNESS: In brief, the patient was admitted on 04/27/2018 with H and P showing th at the patient was admitted with a chief complaint of generalized weakness. She is a 78-year-old fem nick with a past medical history of being bed bound, history of sepsis, UTI, pneumonia, C. diff, atria l fibrillation for atrial fibrillation, bronchitis, hypertension, hypothyroidism, asthma, hyperlipide aimee, and acute kidney injury. She is currently being cared for by the Hospitalist team. I was barker d about 30 minutes prior to my evaluation of the patient because Wound Care who was evaluating the pa tient due to a right toe wound saw what they thought was possibly labial abscess versus other. PAST MEDICAL HISTORY: As just dictated. ALLERGIES: Stated to multiple medications which the patient's daughter states is more side effects t escalera true allergies. Nonetheless, list is extensive. PAST SURGICAL HISTORY: Appendectomy, hysterectomy, gallbladder removal. PSYCHIATRIC HISTORY: No previous psychiatric negative. SOCIAL HISTORY: Negative for alcohol, drugs, or smoking. FAMILY HISTORY: Noncontributory to this current situation. PHYSICAL EXAMINATION: VITAL SIGNS: I have evaluated the patient's current vital signs, her last temperature was 98.3, puls e ranges from 120 at a highest to 82, respirations are 24-16, and blood pressures ranged from 140s/60 s to 170s/77. MEDICATIONS: Include albuterol, Xanax, Norvasc, vitamin C, Lipitor, Pulmicort, vitamin 3, Lovenox fo r prophylaxis, Pepcid, Prozac, Lasix, Neurontin, Robitussin, Synthroid, Imodium, Mobic, meropenem 1 g yosef IV q.8 h. scheduled, Zofran, Protonix, potassium chloride, Florastor, tramadol, trospium, Ultram, Diovan, and Imodium. PHYSICAL EXAMINATION: She is in no acute distress, she was resting when I entered the room. She was alert and oriented. She is a pleasant elderly female. I examined the patient's external genitalia after explaining the reason for the consultation. The patient's nurse was present as was t he patient's daughter during this palpation of the genitalia. I find two small excoriated areas at the top of the bilateral labia majora. These appear chronic and nonacute. There is no significant area of induration or separation felt, there is no warmth, there is no erythema. There is no draining sinuses. The small, less than 1 cm, chronic lesions appear as old excoriations or old contact lesions. These do not appear infectious. To palpation, they were no ntender. There is no evidence of an erosive or ulcerative sexual infectious process here. ASSESSMENT: This is an elderly female being admitted for persistent cough being worked up by the Hospitalist team for multiple medical complaints. Incidentally noted to have genital chronic lesions. PLAN: 1. Based on the size of these small lesions, these appear chronic and not acute. 2. There is no evidence of deep soft tissue involvement. 3. I discussed with the patient, the nurse, and the patient's daughter that an attempt at [place] or needle drainage may cause superinfection due to inability to keep the area clean after performance. Also, because of their size, and lack of significant fluctuance or tenderness, these do not appear t o be acute. Lastly, the area is not large enough to drain, pack or open. 4. The patient is on meropenem, this broad spectrum antibiotic would help any bacterial process that may be contributing to these small sites. 5. For now, no need for acute AUTOCUTTER involvement since medical therapy if already in use and should be appropriate for the small, nonacute, asymptomatic lesions.
[2018-04-30] MEDS: Budesonide 0.5 MG/2 ML NEB INH SCH (19:01)
[2018-04-30] MEDS: ALPRAZolam 0.25 MG TAB PO SCH (21:49)
[2018-04-30] MEDS: Atorvastatin Calcium 10 MG TAB PO SCH (21:49)
[2018-04-30] MEDS: Famotidine 20 MG TAB PO SCH (21:49)
--- NOTE | 2018-05-01 01:07 | CON ---
DATE OF CONSULTATION: 04/30/2018 SERVICE: Pulmonary Medicine. REASON FOR CONSULTATION: Recurrent pneumonias. HISTORY OF PRESENT ILLNESS: Patient is a 78-year-old white female with past medical history signific ant for horrendous osteoarthritis essentially has left her debilitated and bedbound. She is able to get up into a wheelchair from time to time with the assistance of at least 1 person. That being said , she has been getting increasingly weaker over the past several months and years. She had multiple admissions to the hospital for recurrent pneumonias. She does take some pain medication for discomfo rt. Sometimes, her discomfort prevents her from sleeping and she takes medication closer to evening. She denies any current fevers or chills. On presentation to the hospital, she once again had a 1-w [place] history of increasing fevers, shortness of breath, and cough productive of purulent sputum. Sinc e being in the hospital for the last several days, the fever profile has resolved. She is continuing to cough, but not bringing up as much sputum. She denies any chest discomfort, rashes, hot, red, sw ollen joints, nausea, vomiting, diarrhea, dysuria, abdominal discomfort, or easy bruising. PAST MEDICAL HISTORY: 1. Hypertension. 2. Dyslipidemia. 3. Atrial fibrillation, chronic. 4. Hypothyroidism. 5. Anxiety disorder. 6. Major depressive disorder. 7. Chronic obstructive pulmonary disease. 8. Gastroesophageal reflux disease. 9. Osteoarthritis, severe. PAST SURGICAL HISTORY: 1. Hysterectomy. 2. Appendectomy. 3. Back surgery. 4. Cholecystectomy. ALLERGIES: AMOXICILLIN causes diarrhea. CIPROFLOXACIN is listed, but she has tolerated previously. ERYTHROMYCIN, FENTANYL, METOLAZONE, OXYCODONE, SULFA, NABUMETONE. MEDICATIONS: List of her inpatient medications were reviewed. No specific updates were made. FAMILY HISTORY: Noncontributory. SOCIAL HISTORY: She currently lives at [facility]. She denies any alcohol, tobacco or illicit drug u se and has no exposure to chemicals, dust asbestos or tuberculosis. REVIEW OF SYSTEMS: General, head, ears, eyes, nose, throat, cardiovascular, respiratory, GI, , mus culoskeletal, neurologic and skin is negative except as mentioned in the HPI. PHYSICAL EXAMINATION: VITAL SIGNS: Afebrile, pulse 88, blood pressure 158/70, respirations 22, saturation 97% on 3 liters nasal cannula. GENERAL: Patient is awake, alert, no apparent distress. LUNGS: Excellent air entry. There is not really a prolonged expiratory phase. Rhonchi are extensiv kaylene present throughout. HEART: Normal rate, regular. ABDOMEN: Soft, nontender, nondistended. Bowel sounds are positive. MUSCULOSKELETAL: No cyanosis or clubbing. There is no pitting in the bilateral lower extremities. NEUROLOGIC: Grossly nonfocal. LABORATORY DATA: WBC 7.9, hemoglobin 10.1, platelets 229,000. Neutrophil count is back to normal. A pH of 7.44, pCO2 of 34, pO2 of 49. Basic metabolic profile is unremarkable except for potassium 3. 1. Urinalysis is positive for pyuria. Urine culture is growing E. coli which demonstrates a fairly resistance profile, but is sensitive to meropenem. C. diff antigen and toxin are unremarkable. Bloo d cultures x2 are negative. IMAGIN. CT of the brain demonstrates there is significant sinus disease of the head. 2. Chest x-ray demonstrates left-sided pleural parenchymal changes are present. There are low lung volumes bilaterally. ASSESSMENT: 1. Severe sepsis, resolving. 2. Urinary tract infection, secondary to Escherichia coli. 3. Sinusitis. 4. Abnormal chest x-ray. 5. Recurrent episodes of bronchitis. 6. Debility. 7. Oropharyngeal dysphagia, possible. DISCUSSION AND PLAN: Agree with her current antibiotics that should cover both her sinusitis, and th e urinary tract infection. It should also cover most aspiration related diseases. Over a [facility] [address] x-ray in the morning to see whether or not there is a true infiltrate/pleural effusion there. My suspicion is that we are simply dealing with low lung volumes and possible atelectasis. Agree with [facility] Pathology consultation. Modified barium swallow is likely indicated. The patient does report having one about a year ago and indicates that she had no difficulties with her swallow at that time. Pulmonary will follow while t he patient remains in house. Dr. Hook will assume coverage in the morning as he has an established r elationship with this patient.
[2018-05-01] MEDS: Benzonatate 100 MG CAP PO PRN ×3 (02:41→21:12)
[2018-05-01 04:38] LABS: #Eosinphils 1.3 thou/uL (0.0-0.7); #Lymphocytes 1.3 thou/uL (1.20-3.40); #Monocytes 0.7 thou/uL (0.11-0.59); #Neutrophils 4.1 thou/uL (1.40-6.50); %Basophils 0.2 % (0.0-1.0); %Eosinophils 17.3 % (0.0-10.0); %Lymphocytes 17.4 % (21.0-51.0); %Monocytes 9.4 % (0.0-10.0); %Neutrophils 55.8 % (42.0-75.0); Hemoglobin 10.4 g/dL (12.0-16.0); Mean Corpuscular HGB CONC 33.6 g/dL (32.0-36.0); Mean Corpuscular Hemoglobin 29.9 pg (27.0-31.0); Mean Corpuscular Volume 88.8 fL (78.0-98.0); Mean Platelet Volume 6.8 fL (7.4-10.4); Platelet Count 213 thou/uL (130-400); RBC Distribution Width 14.2 % (11.5-14.5); Red Blood Cell (RBC) Count 3.49 mill/uL (4.20-5.40); White Blood Cell (WBC) Count 7.4 thou/uL (4.8-10.8)
[2018-05-01 04:57] LABS: Anion Gap 12 mmol/L (10-20); BUN (Urea Nitrogen) 6 mg/dL (9.8-20.1); Calc. Creatinine Clearance 67 mL/min (70-130); Calcium 8.3 mg/dL (7.8-10.44); Carbon Dioxide 25 mmol/L (23-31); Chloride 104 mmol/L (98-107); Estimated GFR-MDRD 58; Glucose 104 mg/dL (83-110); Potassium 3.5 mmol/L (3.5-5.1); Sodium 137 mmol/L (136-145)
[2018-05-01] MEDS: Levothyroxine Sodium 125 MCG TAB PO SCH (06:26)
[2018-05-01] MEDS: Budesonide 0.5 MG/2 ML NEB INH SCH ×2 (07:29→19:36)
[2018-05-01] MEDS: Enoxaparin Sodium 40 MG/0.4 ML SYRINGE SC SCH (08:16)
[2018-05-01] MEDS: MEROPENEM 1 GM/50 ML 1 GM in Premix Bag 1 BAG IVPB SCH ×3 (08:16→23:56)
[2018-05-01] MEDS: Gabapentin 400 MG CAP PO SCH ×3 (08:17→17:46)
[2018-05-01] MEDS: Valsartan 80 MG TAB PO SCH (08:18)
[2018-05-01] MEDS: Meloxicam 15 MG TAB PO SCH (08:18)
[2018-05-01] MEDS: Ascorbic Acid 500 mg Chewable Tablet PO SCH (08:18)
[2018-05-01] MEDS: FLUoxetine HCl 20 MG CAP PO SCH (08:19)
[2018-05-01] MEDS: TROSPIUM 20 MG TABLET PO SCH ×2 (08:19→21:12)
[2018-05-01] MEDS: Amlodipine 10 MG TAB PO SCH (08:19)
[2018-05-01] MEDS: Multivitamin W/ Minerals 1 TAB PO SCH (08:19)
[2018-05-01] MEDS: HYDROcodone/Acetaminophen 10/325 mg Tablet PO PRN ×3 (08:56→19:23)
--- NOTE | 2018-05-01 10:06 | PQF ---
CLINICAL DOCUMENTATION IMPROVEMENT CLARIFICATION FORM: ICD-10 Updated PLEASE DO AN ADDENDUM TO THE PROGRESS NOTE WITH ANY DOCUMENTATION UPDATES OR ADDITIONS AND CARRY THROUGH TO DC SUMMARY. THANK YOU. DATE: 05/01, 05/03 ATTN: DR. MONICA STEWART Please exercise your independent, professional judgment in responding to the clarification form. Clinical indicators are provided on the bottom of this form for your review. Please check appropriate box(s): [ ] Aspiration Pneumonia [ ] Aspiration Bronchitis [ ] Empirically treating Gram Negative Pneumonia [ ] Pneumonia secondary to (specify organism / underlying disease) [ ] Simple Pneumonia (community acquired - nosocomial) [ ] Pneumonia of unknown etiology [ ] Other diagnosis [ ] Unable to determine For continuity of documentation, please document condition throughout progress notes and discharge summary. Thank You. CLINICAL INDICATORS - SIGNS / SYMPTOMS / LABS PHYSICIAN H&P 04/27: ASSESSMENT & PLAN: 3) PNEUMONIA IN THE LLL WAS SEEN ON THE CXR INFECTIOUS DX CONSULT 04/28 - PAST MEDICAL HX: TRACHEOBRONCHIAL MALACIA, RECURRENT EPISODES OF BRONCHITIS/PNEUMONIA. DISCUSSION: DIFFERENTIAL DIAGNOSIS INCLUDES ANOTHER EPISODE OF RESPIRATORY INFX ASSOCIATED WITH HER TRACHEOMALACIAS THE MOST LIKELY SCENARIO ATTENDING PN 04/29 & : DX/PLAN: 2) B PNEUMONIA, UNSPECIFIED ORGANISM CXR 04/27: IMPRESSION: INCREASED DENSITY LATERAL L LUNG BASE WHICH MAY BE RELATED TO ATELECTASIS & OVERLYING SOFT TISSUE DENSITY. HOWEVER, DEVELOPING PNEUMONIA AT THE LATERAL LEFT LUNG BASE WELL MEDIAL RIGHT LUNG BASE CANNOT BE EXCLUDED. WBC: 13.7 (ON ADMIT, 04/27) FEVERS AT HOME INCREASING SOB W/PRODUCTIVE COUGH RISK FACTORS: RECURRENT PNEUMONIA/BRONCHITIS HX TRACHEOBRONCHIAL MALACIA COPD TREATMENTS: IV ANTIBIOTICS (MERREM 04/28 - PRESENT; VANCOMYCIN & LEVOQUIN 04/27 IN ER) IVF (NS 04/27 - PRESENT) INFECTIOUS DX & PULMONARY CONSULT THANK YOU! Sandra (This form is maintained as a part of the permanent medical record) 2014 [employer]. All Rights Reserved Sandra Mckeon RN, BSN [email or web address] Office: [phone] [facility]
--- NOTE | 2018-05-01 11:26 | PRG ---
DATE OF SERVICE: 05/01/2018 SUBJECTIVE: This morning, she seems better. She is still coughing, congested, but no fever or chill s. She admitted to the hospital with a presumed diagnosis of UTI, pneumonia. She is apparently in the house. She has got [facility] seeing along with her . Initial chest x-ray showed a left retrocardiac density. Today's x-ray shows similar chronic changes. I do not see any new infiltrates. She appears to be in no distress. OBJECTIVE: VITAL SIGNS: Blood pressure 130/80, pulse 88, respirations 18, sats 95%, she is afebrile. CHEST: Revealed rhonchi. CARDIAC: Normal S1, S2, no gallops. ABDOMEN: Soft. All cultures so far are growing E. coli sensitive to the present antibiotic she is on. IMPRESSION: 1. Recurrent urinary tract infection, multi-antibiotic resistant. 2. Bronchitis. I doubt pneumonia. PLAN: Infectious Disease was consulted. She is on meropenem, neb treatment and supportive care. We will follow.
--- NOTE | 2018-05-01 11:40 | RAD ---
PORTABLE CHEST: Indications: Cough, follow up. Comparison: 04-27-18 FINDINGS: Lungs appear well aerated and clear of infiltrates today. The questioned infiltrate in the lung bases on prior study are less prominent on the current exam. Prior findings may have represented atelectas is. There is cardiomegaly and mild vascular engorgement. No effusion. IMPRESSION: No evidence of infiltrate seen on today's portable exam. POS: [facility]
[2018-05-01 12:28] VITALS: BMI 31.6
[2018-05-01] MEDS: Saccharomyces boulardii 250 MG CAP PO SCH (14:03)
[2018-05-01] MEDS ORDERED: Iopamidol 370 76% 100 ML VIAL ONE (14:41)
--- NOTE | 2018-05-01 15:30 | PDOC.PN ---
- Subjective Encounter Start Date: 05/01/18 Encounter Start Time: 13:45 -: old records requested/rev Pt seen and examined, chart reviewed in it entirety, this is my first visit with this patient Increased SOB and WOb this AM. increased O2 requirements, no F/C, no n/v/d/c, minimal cough, no sputum, no hemoptysis. repeat CXr negative. CTA pending due to hypoxia, tachycardia and dyspnea All systems reviewed and neg x as above - Objective Resuscitation Status: Resuscitation Status DNR:Do Not Resuscitate MAR Reviewed: Yes Vital Signs & Weight: Vital Signs (12 hours) Temp Pulse Pulse Resp BP BP BP 05/01/18 13:53 104 H 122/59 L 05/01/18 11:54 107 H 20 05/01/18 11:25 98.8 F 105 H 20 145/74 H 05/01/18 08:56 05/01/18 08:19 105 H 172/75 H 05/01/18 07:34 99.6 F 105 H 18 172/75 H 05/01/18 07:24 97 20 05/01/18 04:00 97.9 F 97 18 128/69 Pulse Ox 05/01/18 13:53 05/01/18 11:54 87 L 05/01/18 11:25 91 L 05/01/18 08:56 90 L 05/01/18 08:19 05/01/18 07:34 90 L 05/01/18 07:24 90 L 05/01/18 04:00 92 L Weight Admit Weight 201 lb 1.6 oz Weight 190 lb 6 oz I&O: 04/30/18 05/01/18 05/02/18 06:59 06:59 06:59 Intake Total 1340 1190 Balance 1340 1190 Result Diagrams: 05/01/18 04:08 05/01/18 04:08 Radiology Reviewed by me: Yes EKG Reviewed by me: Yes Phys Exam - Physical Examination Constitutional: NAD HEENT: PERRLA, moist MMs, sclera anicteric, oral pharynx no lesions Neck: no nodes, no JVD, supple, full ROM Respiratory: no wheezing, no rales, no rhonchi, clear to auscultation bilateral Cardiovascular: RRR, no significant murmur, no rub Gastrointestinal: soft, non-tender, no distention, positive bowel sounds Musculoskeletal: edema present Neurological: non-focal, normal sensation, moves all 4 limbs Lymphatic: no nodes Psychiatric: normal affect, A&O x 3 Skin: no rash, normal turgor, cap refill <2 seconds Dx/Plan (1) Acute bronchitis Code(s): J20.9 - ACUTE BRONCHITIS, UNSPECIFIED Status: Acute Qualifiers: Bronchitis organism: unspecified organism Qualified Code(s): J20.9 - Acute bronchitis, unspecified (2) Sepsis Code(s): A41.9 - SEPSIS, UNSPECIFIED ORGANISM Status: Acute Qualifiers: Sepsis type: Escherichia coli Qualified Code(s): A41.51 - Sepsis due to Escherichia coli [E. coli] Comment: On merrem, continue today, E coli resistant to amp, and Ceph 1-4. sens to Bactrim, AG, zosyn and Carbapenems (3) Tachycardia Code(s): R00.0 - TACHYCARDIA, UNSPECIFIED Status: Acute Comment: sinus tachycardia on EKG but hx of A-fib (4) UTI (urinary tract infection) Status: Acute Qualifiers: Urinary tract infection type: site unspecified Hematuria presence: without hematuria Qualified Code(s): N39.0 - Urinary tract infection, site not specified Comment: citrobacter sensitive to fluoroquinolones (5) Afib Code(s): I48.91 - UNSPECIFIED ATRIAL FIBRILLATION Status: Chronic Qualifiers: Atrial fibrillation type: chronic Qualified Code(s): I48.2 - Chronic atrial fibrillation Comment: continue aspirin. Not on anticoagulation due to high risk of bleeding (6) Anxiety and depression Code(s): F41.8 - OTHER SPECIFIED ANXIETY DISORDERS Status: Chronic (7) COPD (chronic obstructive pulmonary disease) Status: Chronic Qualifiers: Chronic bronchitis type: unspecified Comment: Stable. Not in acute exacerbation. (8) Chronic anemia Code(s): D64.9 - ANEMIA, UNSPECIFIED Status: Chronic (9) GERD (gastroesophageal reflux disease) Code(s): K21.9 - GASTRO-ESOPHAGEAL REFLUX DISEASE WITHOUT ESOPHAGITIS Status: Chronic Qualifiers: Esophagitis presence: without esophagitis Qualified Code(s): K21.9 - Gastro -esophageal reflux disease without esophagitis (10) Hypothyroidism Code(s): E03.9 - HYPOTHYROIDISM, UNSPECIFIED Status: Chronic Qualifiers: Hypothyroidism type: unspecified - Plan cont current plan of care, continue antibiotics, PT/OT, incentive spirometry, out of bed/ambulate * . check CTA, AM labs
--- NOTE | 2018-05-01 16:30 | CT ---
CT ANGIOGRAM THORAX WITH IV CONTRAST AND 3D RECONSTRUCTIONS: Date: 05/01/18 HISTORY: Acute respiratory failure, tachycardia. History of pneumonia and cough. COMPARISON: 02/20/18, as well as 01/08/18. FINDINGS: No filling defects are seen in the pulmonary arteries to suggest a pulmonary embolus. The ascending thoracic aorta is ectatic, measuring 4.3 cm in diameter. The descending thoracic aorta is normal in caliber. Vascular calcifications are seen in the thoracic aorta, as well as involving th e coronary arteries. There is an area of consolidation seen within the lingula. There is a filling defect seen within a le ft upper lobe bronchus in this region and findings could be related to either postobstructive atelect asis or postobstructive pneumonitis. This exam is also obtained in shallow depth of inspiration, whic h limits evaluation. There are filling defects also seen within left lower lobe bronchi, but no conso lidation is seen at the left lung base. There are filling defects seen within the region of the bronchus intermedius, right middle lobe bronc hus, as well as right lower lobe bronchi. Consolidation is present in the region of the right middle lobe and at the right lung base, which could be related to postobstructive atelectasis and/or postobs tructive pneumonitis. There is elevation of the right hemidiaphragm, which also likely results in vol ume loss at the right lung base. A few ground-glass densities are seen in the right upper lobe one of which was also present on the pr ior exam, as well as study on 02/07/18, and may be related to an area of peripheral scarring, althoug h the additional ground-glass densities are new compared to the prior study, and infectious or inflam matory process is a possibility. Calcified granuloma is seen in the right lower lobe. The heart is enlarged. Post cholecystectomy changes are noted. Degenerative changes are seen in the spine. There are enlarged mediastinal lymph nodes with largest lymph nodes in a precarinal location, largest measuring approximately 1.8 cm in short axis dimension. Mildly enlarged lymph nodes are seen on the study of 01/08/18, but these lymph nodes were smaller in size on the study of 02/20/18. A few subcari nal lymph nodes are also present. These mildly enlarged increased number of lymph nodes may be reacti ve in origin. IMPRESSION: 1. Filling defects seen within lower lobe bronchi, as well as a few bronchi within the right upper a nd right middle lobe, and to a lesser extent in the left upper lobe. There are parenchymal changes in the lingula right lower lobe, and right middle lobe. These findings could be related to either aspir ation pneumonitis or postobstructive atelectasis or postobstructive pneumonitis. Follow-up to [facility] is suggested. 2. Probable mild pleural and parenchymal scarring lateral right upper lobe. In addition, there are a few ground-glass densities in the right upper lobe and right middle lobe which could be related to i nfectious or inflammatory process. 3. Mediastinal lymphadenopathy, which may be reactive in origin. 4. No CT evidence of a pulmonary embolus. 5. Enlargement of the main pulmonary artery compared to the thoracic aorta. An element of pulmonary artery hypertension is a possibility. 6. There is no CT evidence of a pulmonary embolus. 7. Mild cardiomegaly. POS: [facility]
[2018-05-01] MEDS: Diabetic Tussin 200 MG/10 ML UDCUP PO PRN ×2 (17:45→21:13)
[2018-05-01] MEDS: Famotidine 20 MG TAB PO SCH (21:10)
[2018-05-01] MEDS: Atorvastatin Calcium 10 MG TAB PO SCH (21:11)
[2018-05-01] MEDS: ALPRAZolam 0.25 MG TAB PO SCH (21:12)
[2018-05-02] MEDS ORDERED: Labetalol 100 MG/20 ML MDV SLOW IVP PRN (03:56)
[2018-05-02 05:06] LABS: #Basophils 0.1 thou/uL (0.0-0.2); #Eosinphils 1.1 thou/uL (0.0-0.7); #Lymphocytes 1.4 thou/uL (1.20-3.40); #Monocytes 0.7 thou/uL (0.11-0.59); #Neutrophils 3.7 thou/uL (1.40-6.50); %Basophils 0.9 % (0.0-1.0); %Lymphocytes 20.2 % (21.0-51.0); %Monocytes 10.6 % (0.0-10.0); %Neutrophils 53.2 % (42.0-75.0); Hemoglobin 11.3 g/dL (12.0-16.0); Mean Corpuscular HGB CONC 31.6 g/dL (32.0-36.0); Mean Corpuscular Hemoglobin 28.9 pg (27.0-31.0); Mean Corpuscular Volume 91.5 fL (78.0-98.0); Mean Platelet Volume 7.4 fL (7.4-10.4); Platelet Count 216 thou/uL (130-400); RBC Distribution Width 14.5 % (11.5-14.5); Red Blood Cell (RBC) Count 3.89 mill/uL (4.20-5.40)
[2018-05-02 05:21] LABS: Anion Gap 13 mmol/L (10-20); BUN (Urea Nitrogen) 8 mg/dL (9.8-20.1); Calc. Creatinine Clearance 63 mL/min (70-130); Calcium 8.6 mg/dL (7.8-10.44); Carbon Dioxide 23 mmol/L (23-31); Chloride 103 mmol/L (98-107); Estimated GFR-MDRD 53; Glucose 90 mg/dL (83-110); Magnesium 1.9 mg/dL (1.6-2.6); Potassium 4.2 mmol/L (3.5-5.1); Sodium 135 mmol/L (136-145)
[2018-05-02] MEDS: Levothyroxine Sodium 125 MCG TAB PO SCH (06:08)
[2018-05-02] MEDS: Benzonatate 100 MG CAP PO PRN ×2 (06:09→18:07)
[2018-05-02] MEDS: Diabetic Tussin 200 MG/10 ML UDCUP PO PRN ×3 (06:09→20:59)
[2018-05-02] MEDS: Budesonide 0.5 MG/2 ML NEB INH SCH ×2 (07:31→19:15)
[2018-05-02] MEDS: HYDROcodone/Acetaminophen 10/325 mg Tablet PO PRN ×4 (08:12→23:18)
[2018-05-02] MEDS: TROSPIUM 20 MG TABLET PO SCH ×2 (08:12→20:57)
[2018-05-02] MEDS: MEROPENEM 1 GM/50 ML 1 GM in Premix Bag 1 BAG IVPB SCH ×3 (08:12→23:20)
[2018-05-02] MEDS: Enoxaparin Sodium 40 MG/0.4 ML SYRINGE SC SCH (08:12)
[2018-05-02] MEDS: Multivitamin W/ Minerals 1 TAB PO SCH (08:13)
[2018-05-02] MEDS: FLUoxetine HCl 20 MG CAP PO SCH (08:13)
[2018-05-02] MEDS: Amlodipine 10 MG TAB PO SCH (08:14)
[2018-05-02] MEDS: Gabapentin 400 MG CAP PO SCH ×3 (08:14→17:58)
[2018-05-02] MEDS: Meloxicam 15 MG TAB PO SCH (08:14)
[2018-05-02] MEDS: Valsartan 80 MG TAB PO SCH (08:14)
[2018-05-02] MEDS: Ascorbic Acid 500 mg Chewable Tablet PO SCH (08:15)
--- NOTE | 2018-05-02 12:54 | PRG ---
DATE OF SERVICE: 05/02/2018 SUBJECTIVE: This morning, she is somewhat better, though continues to have intermittent hypoxemia. Resistant UTI. PHYSICAL EXAMINATION: VITAL SIGNS: Sats are 90 on 50% Ventimask, blood pressure 140/87, temperature 99, respiration rate 1 8. CHEST: Chest reveals decreased breath sounds without any wheezing. CARDIAC: Normal S1, S2. No gallops, mass. LABORATORY DATA: Electrolytes are normal. White count 27,000. IMPRESSION: 1. Urinary tract infection. 1. Severe kyphosis, scoliosis, retained secretions, bedridden. PLAN: At this stage, continue aggressive neb treatments, supportive care. We will follow. Home when okay with Infectious Disease.
[2018-05-02] MEDS: Saccharomyces boulardii 250 MG CAP PO SCH (14:34)
[2018-05-02] MEDS: Mometasone/Formoterol 120 PUFF INHALER INH SCH (19:15)
[2018-05-02] MEDS: Atorvastatin Calcium 10 MG TAB PO SCH (20:57)
[2018-05-02] MEDS: Famotidine 20 MG TAB PO SCH (20:57)
[2018-05-02] MEDS: ALPRAZolam 0.25 MG TAB PO SCH (20:57)
[2018-05-03] MEDS: Diabetic Tussin 200 MG/10 ML UDCUP PO PRN ×2 (05:46→16:15)
[2018-05-03] MEDS: HYDROcodone/Acetaminophen 10/325 mg Tablet PO PRN ×3 (05:47→16:15)
[2018-05-03] MEDS: Levothyroxine Sodium 125 MCG TAB PO SCH (05:47)
[2018-05-03] MEDS: Budesonide 0.5 MG/2 ML NEB INH SCH ×2 (07:29→19:05)
[2018-05-03] MEDS: Mometasone/Formoterol 120 PUFF INHALER INH SCH ×2 (07:38→19:06)
[2018-05-03] MEDS: Multivitamin W/ Minerals 1 TAB PO SCH (08:35)
[2018-05-03] MEDS: Valsartan 80 MG TAB PO SCH (08:36)
[2018-05-03] MEDS: Gabapentin 400 MG CAP PO SCH ×3 (08:36→17:36)
[2018-05-03] MEDS: Meloxicam 15 MG TAB PO SCH (08:36)
[2018-05-03] MEDS: FLUoxetine HCl 20 MG CAP PO SCH (08:36)
[2018-05-03] MEDS: TROSPIUM 20 MG TABLET PO SCH ×2 (08:37→20:44)
[2018-05-03] MEDS: Amlodipine 10 MG TAB PO SCH (08:37)
[2018-05-03] MEDS: Enoxaparin Sodium 40 MG/0.4 ML SYRINGE SC SCH (08:37)
[2018-05-03] MEDS: Ascorbic Acid 500 mg Chewable Tablet PO SCH (08:37)
[2018-05-03] MEDS: MEROPENEM 1 GM/50 ML 1 GM in Premix Bag 1 BAG IVPB SCH ×3 (08:38→23:59)
--- NOTE | 2018-05-03 11:13 | PRG ---
DATE OF SERVICE: 05/03/2018 This morning she is better. She is still less short of breath, less cough. PHYSICAL EXAMINATION: VITAL SIGNS: Sats are 95% on Ventimask, blood pressure 130/61, temperature is 98. CHEST: Chest reveals decreased breath sounds, no wheezing. CARDIAC: Normal S1, S2. No gallops. ABDOMEN: Soft, no masses. IMPRESSION: 1. Chronic bronchitis, bronchiectasis. 2. Retained secretions. 3. Recurrent urinary tract infection. PLAN: Pulmonary hsieh, I have encouraged to rotate lying on her right side and left side of the chest . She is mainly lying on her left side down. I suggest she lay on the right side down for several h ours at a time. Antibiotics for her UTI. Hopefully, she can be discharged home in several days once the antibiotic has been discontinued.
[2018-05-03] MEDS: Saccharomyces boulardii 250 MG CAP PO SCH (14:10)
[2018-05-03] MEDS: guaiFENesin ER 600 MG TAB PO SCH (20:44)
[2018-05-03] MEDS: Atorvastatin Calcium 10 MG TAB PO SCH (20:44)
[2018-05-03] MEDS: Famotidine 20 MG TAB PO SCH (20:44)
[2018-05-03] MEDS: Benzonatate 100 MG CAP PO PRN (20:44)
[2018-05-03] MEDS: ALPRAZolam 0.25 MG TAB PO SCH (22:03)
[2018-05-04] MEDS: HYDROcodone/Acetaminophen 10/325 mg Tablet PO PRN ×4 (05:12→21:04)
[2018-05-04] MEDS: Benzonatate 100 MG CAP PO PRN ×2 (05:12→16:24)
[2018-05-04] MEDS: Levothyroxine Sodium 125 MCG TAB PO SCH (05:13)
[2018-05-04] MEDS: Budesonide 0.5 MG/2 ML NEB INH SCH ×2 (06:39→19:00)
[2018-05-04] MEDS: Mometasone/Formoterol 120 PUFF INHALER INH SCH ×2 (06:42→19:01)
--- NOTE | 2018-05-04 08:28 | PDOC.PN ---
- Subjective Encounter Start Date: 05/02/18 Encounter Start Time: 10:30 Pt breathing a little better, still requiring a 15L VM now. no bibpap used, Dr Hook ordered an Acapella valve. No F/C, minimal cough, no sputum, pt didnt use valve last evneing because it makes her cough denies n/V/d/c, no CP, no new complaints All systems reviewed and neg x as above - Objective Resuscitation Status: Resuscitation Status DNR:Do Not Resuscitate MAR Reviewed: Yes Vital Signs & Weight: Vital Signs (12 hours) Temp Pulse Resp BP Pulse Ox 05/04/18 06:42 101 H 18 3 L 05/04/18 06:39 101 H 18 92 L 05/04/18 03:36 97.9 F 101 H 20 128/63 93 L 05/04/18 00:43 96 16 97 Weight Admit Weight 201 lb 1.6 oz Weight 190 lb 8 oz I&O: 05/03/18 05/04/18 05/05/18 06:59 06:59 06:59 Intake Total 910 2030 Balance 910 2030 Result Diagrams: 05/02/18 04:04 05/02/18 04:04 Radiology Reviewed by me: Yes Phys Exam - Physical Examination Constitutional: NAD HEENT: PERRLA, moist MMs, sclera anicteric, oral pharynx no lesions Neck: no nodes, no JVD, supple, full ROM coarse bilateral S, no wheezes, no prolonged exp, + rhonchi Cardiovascular: RRR, no significant murmur Gastrointestinal: soft, non-tender, no distention, positive bowel sounds Musculoskeletal: pulses present, edema present Neurological: non-focal, normal sensation, moves all 4 limbs Lymphatic: no nodes Psychiatric: normal affect, A&O x 3 Skin: no rash, normal turgor, cap refill <2 seconds Dx/Plan (1) Acute bronchitis Code(s): J20.9 - ACUTE BRONCHITIS, UNSPECIFIED Status: Acute Qualifiers: Bronchitis organism: unspecified organism Qualified Code(s): J20.9 - Acute bronchitis, unspecified Comment: presen ton admit, no pneumonia, pneumonia ruled out. Ct with opacities , discussed with [employer], these are chonic in nature. (2) Sepsis Code(s): A41.9 - SEPSIS, UNSPECIFIED ORGANISM Status: Acute Qualifiers: Sepsis type: Escherichia coli Qualified Code(s): A41.51 - Sepsis due to Escherichia coli [E. coli] Comment: On merrem, continue today, E coli resistant to amp, and Ceph 1-4. sens to Bactrim, AG, zosyn and Carbapenems (3) Tachycardia Code(s): R00.0 - TACHYCARDIA, UNSPECIFIED Status: Acute Comment: sinus tachycardia on EKG but hx of A-fib (4) UTI (urinary tract infection) Status: Acute Qualifiers: Urinary tract infection type: site unspecified Hematuria presence: without hematuria Qualified Code(s): N39.0 - Urinary tract infection, site not specified Comment: citrobacter sensitive to fluoroquinolones (5) Afib Code(s): I48.91 - UNSPECIFIED ATRIAL FIBRILLATION Status: Chronic Qualifiers: Atrial fibrillation type: chronic Qualified Code(s): I48.2 - Chronic atrial fibrillation Comment: continue aspirin. Not on anticoagulation due to high risk of bleeding (6) Anxiety and depression Code(s): F41.8 - OTHER SPECIFIED ANXIETY DISORDERS Status: Chronic (7) COPD (chronic obstructive pulmonary disease) Status: Chronic Qualifiers: Chronic bronchitis type: unspecified Comment: Stable. Not in acute exacerbation. (8) Chronic anemia Code(s): D64.9 - ANEMIA, UNSPECIFIED Status: Chronic (9) GERD (gastroesophageal reflux disease) Code(s): K21.9 - GASTRO-ESOPHAGEAL REFLUX DISEASE WITHOUT ESOPHAGITIS Status: Chronic Qualifiers: Esophagitis presence: without esophagitis Qualified Code(s): K21.9 - Gastro -esophageal reflux disease without esophagitis (10) Hypothyroidism Code(s): E03.9 - HYPOTHYROIDISM, UNSPECIFIED Status: Chronic Qualifiers: Hypothyroidism type: unspecified - Plan cont current plan of care, continue antibiotics, PT/OT, respiratory therapy, incentive spirometry, out of bed/ambulate * .
--- NOTE | 2018-05-04 08:31 | PDOC.PN ---
- Subjective Encounter Start Date: 05/03/18 Encounter Start Time: 09:35 No change, no new complaints, better iwth valve. PT/OT to see today. pt has been at home, but is considering D[facility]C [facility] No f/C, no N/V/d/C, no CP, breathing slowly improving, All systems reviewed and neg x as above - Objective Resuscitation Status: Resuscitation Status DNR:Do Not Resuscitate MAR Reviewed: Yes Vital Signs & Weight: Vital Signs (12 hours) Temp Pulse Resp BP Pulse Ox 05/04/18 06:42 101 H 18 3 L 05/04/18 06:39 101 H 18 92 L 05/04/18 03:36 97.9 F 101 H 20 128/63 93 L 05/04/18 00:43 96 16 97 Weight Admit Weight 201 lb 1.6 oz Weight 190 lb 8 oz I&O: 05/03/18 05/04/18 05/05/18 06:59 06:59 06:59 Intake Total 910 2030 Balance 910 2030 Result Diagrams: 05/02/18 04:04 05/02/18 04:04 Radiology Reviewed by me: Yes Phys Exam - Physical Examination Constitutional: NAD HEENT: PERRLA, moist MMs, sclera anicteric, oral pharynx no lesions Neck: no nodes, no JVD, supple, full ROM coarse BS, rhonchi stable, no wheezing Cardiovascular: RRR, no significant murmur, no rub Gastrointestinal: soft, non-tender, no distention, positive bowel sounds Musculoskeletal: edema present Neurological: non-focal, normal sensation, moves all 4 limbs Lymphatic: no nodes Psychiatric: normal affect, A&O x 3 Skin: no rash, normal turgor, cap refill <2 seconds Dx/Plan (1) Acute bronchitis Code(s): J20.9 - ACUTE BRONCHITIS, UNSPECIFIED Status: Acute Qualifiers: Bronchitis organism: unspecified organism Qualified Code(s): J20.9 - Acute bronchitis, unspecified Comment: presen ton admit, no pneumonia, pneumonia ruled out. Ct with opacities , discussed with [employer], these are chonic in nature. (2) Sepsis Code(s): A41.9 - SEPSIS, UNSPECIFIED ORGANISM Status: Acute Qualifiers: Sepsis type: Escherichia coli Qualified Code(s): A41.51 - Sepsis due to Escherichia coli [E. coli] Comment: On merrem, continue today, E coli resistant to amp, and Ceph 1-4. sens to Bactrim, AG, zosyn and Carbapenems (3) Tachycardia Code(s): R00.0 - TACHYCARDIA, UNSPECIFIED Status: Acute Comment: sinus tachycardia on EKG but hx of A-fib (4) UTI (urinary tract infection) Status: Acute Qualifiers: Urinary tract infection type: site unspecified Hematuria presence: without hematuria Qualified Code(s): N39.0 - Urinary tract infection, site not specified Comment: citrobacter sensitive to fluoroquinolones (5) Afib Code(s): I48.91 - UNSPECIFIED ATRIAL FIBRILLATION Status: Chronic Qualifiers: Atrial fibrillation type: chronic Qualified Code(s): I48.2 - Chronic atrial fibrillation Comment: continue aspirin. Not on anticoagulation due to high risk of bleeding (6) Anxiety and depression Code(s): F41.8 - OTHER SPECIFIED ANXIETY DISORDERS Status: Chronic (7) COPD (chronic obstructive pulmonary disease) Status: Chronic Qualifiers: Chronic bronchitis type: unspecified Comment: Stable. Not in acute exacerbation. (8) Chronic anemia Code(s): D64.9 - ANEMIA, UNSPECIFIED Status: Chronic (9) GERD (gastroesophageal reflux disease) Code(s): K21.9 - GASTRO-ESOPHAGEAL REFLUX DISEASE WITHOUT ESOPHAGITIS Status: Chronic Qualifiers: Esophagitis presence: without esophagitis Qualified Code(s): K21.9 - Gastro -esophageal reflux disease without esophagitis (10) Hypothyroidism Code(s): E03.9 - HYPOTHYROIDISM, UNSPECIFIED Status: Chronic Qualifiers: Hypothyroidism type: unspecified - Plan * .
[2018-05-04] MEDS: Gabapentin 400 MG CAP PO SCH ×3 (09:05→16:25)
[2018-05-04] MEDS: MEROPENEM 1 GM/50 ML 1 GM in Premix Bag 1 BAG IVPB SCH ×2 (09:06→16:24)
[2018-05-04] MEDS: Amlodipine 10 MG TAB PO SCH (09:08)
[2018-05-04] MEDS: Ascorbic Acid 500 mg Chewable Tablet PO SCH (09:08)
[2018-05-04] MEDS: Enoxaparin Sodium 40 MG/0.4 ML SYRINGE SC SCH (09:09)
[2018-05-04] MEDS: guaiFENesin ER 600 MG TAB PO SCH ×2 (09:09→20:56)
[2018-05-04] MEDS: Meloxicam 15 MG TAB PO SCH (09:09)
[2018-05-04] MEDS: Multivitamin W/ Minerals 1 TAB PO SCH (09:10)
[2018-05-04] MEDS: TROSPIUM 20 MG TABLET PO SCH ×2 (09:11→20:55)
[2018-05-04] MEDS: FLUoxetine HCl 20 MG CAP PO SCH (09:12)
[2018-05-04] MEDS: Valsartan 80 MG TAB PO SCH (09:12)
--- NOTE | 2018-05-04 09:39 | PRG ---
DATE OF SERVICE: 05/04/2018 She is today in the hospital. She is doing well. PHYSICAL EXAMINATION: VITAL SIGNS: Sats are 94 on 3 liters, pulse 108, blood pressure 140/80. CHEST: Rhonchi, left greater than right. CARDIAC: Normal S1-S2. No gallops. ABDOMEN: Soft, no masses. IMPRESSION: 1. Retained secretions. 2. Tracheobronchitis. PLAN: She appears to have improved. She will benefit from a fci unit. She will be read y to be discharged once we decide about her urinary tract infection antibiotics. Pulmonary-hsieh, otherwise aggressive neb treatment and supportive care. I will follow.
--- NOTE | 2018-05-04 12:21 | EKG ---
Test Reason : Blood Pressure : / mmHG Vent. Rate : 109 BPM Atrial Rate : 109 BPM P-R Int : 150 ms QRS Dur : 106 ms QT Int : 350 ms P-R-T Axes : 013 -46 134 degrees QTc Int : 471 ms Sinus tachycardia Left axis deviation Incomplete left bundle branch block Left ventricular hypertrophy with repolarization abnormality Abnormal ECG Confirmed by ONEL NORTH, RHONDA ([id number]), digital editor ROMY CHAMBERS ([id number]) on 05/04/2018 12:21:12 PM Referred By: Confirmed By:RHONDA SYKES MD
--- NOTE | 2018-05-04 12:21 | EKG ---
Test Reason : Blood Pressure : / mmHG Vent. Rate : 123 BPM Atrial Rate : 123 BPM P-R Int : 142 ms QRS Dur : 108 ms QT Int : 380 ms P-R-T Axes : 003 -47 129 degrees QTc Int : 544 ms Sinus tachycardia Left axis deviation Anterolateral infarct , age undetermined Abnormal ECG Confirmed by ONEL NORTH, RHONDA (12), art editor ROMY CHAMBERS ([id number]) on 05/04/2018 12:21:16 PM Referred By: Confirmed By:RHONDA SYKES MD
--- NOTE | 2018-05-04 13:39 | PDOC.PN ---
- Subjective Encounter Start Date: 05/04/18 Encounter Start Time: 09:05 Pt down to 2-3L NC with adequate sats. Seen by PT/OT. deciding on SNF at [place] or home with HHC, i recomended SNF lacement No F/C, no N/V/d/C, minimal cough, no abd pain, no CP All systems reviewed and neg x as above - Objective Resuscitation Status: Resuscitation Status DNR:Do Not Resuscitate MAR Reviewed: Yes Vital Signs & Weight: Vital Signs (12 hours) Temp Pulse Resp BP BP Pulse Ox 05/04/18 12:00 97.4 F L 93 20 126/56 L 92 L 05/04/18 10:32 92 16 90 L 05/04/18 09:08 101 H 138/77 05/04/18 09:00 98.3 F 92 16 94 L 05/04/18 08:00 98.3 F 101 H 94 H 138/77 94 L 05/04/18 06:42 101 H 18 3 L 05/04/18 06:39 101 H 18 92 L 05/04/18 03:36 97.9 F 101 H 20 128/63 93 L Weight Admit Weight 201 lb 1.6 oz Weight 190 lb 8 oz I&O: 05/03/18 05/04/18 05/05/18 06:59 06:59 06:59 Intake Total 910 2030 480 Balance 910 2030 480 Result Diagrams: 05/02/18 04:04 05/02/18 04:04 Phys Exam - Physical Examination Constitutional: NAD HEENT: PERRLA, moist MMs, sclera anicteric, oral pharynx no lesions Neck: no nodes, no JVD, supple, full ROM coarse BS, no wheezes, no rhonchi Cardiovascular: RRR, no significant murmur, no rub Gastrointestinal: soft, non-tender, no distention, positive bowel sounds Musculoskeletal: edema present Neurological: non-focal, normal sensation Lymphatic: no nodes Psychiatric: normal affect, A&O x 3 Skin: no rash, normal turgor, cap refill <2 seconds Dx/Plan (1) Acute bronchitis Code(s): J20.9 - ACUTE BRONCHITIS, UNSPECIFIED Status: Acute Qualifiers: Bronchitis organism: unspecified organism Qualified Code(s): J20.9 - Acute bronchitis, unspecified Comment: presen ton admit, no pneumonia, pneumonia ruled out. Ct with opacities , discussed with [employer], these are chonic in nature. (2) Sepsis Code(s): A41.9 - SEPSIS, UNSPECIFIED ORGANISM Status: Acute Qualifiers: Sepsis type: Escherichia coli Qualified Code(s): A41.51 - Sepsis due to Escherichia coli [E. coli] Comment: On merrem, continue today, E coli resistant to amp, and Ceph 1-4. sens to Bactrim, AG, zosyn and Carbapenems (3) Tachycardia Code(s): R00.0 - TACHYCARDIA, UNSPECIFIED Status: Acute Comment: sinus tachycardia on EKG but hx of A-fib (4) UTI (urinary tract infection) Status: Acute Qualifiers: Urinary tract infection type: site unspecified Hematuria presence: without hematuria Qualified Code(s): N39.0 - Urinary tract infection, site not specified Comment: citrobacter sensitive to fluoroquinolones (5) Afib Code(s): I48.91 - UNSPECIFIED ATRIAL FIBRILLATION Status: Chronic Qualifiers: Atrial fibrillation type: chronic Qualified Code(s): I48.2 - Chronic atrial fibrillation Comment: continue aspirin. Not on anticoagulation due to high risk of bleeding (6) Anxiety and depression Code(s): F41.8 - OTHER SPECIFIED ANXIETY DISORDERS Status: Chronic (7) COPD (chronic obstructive pulmonary disease) Status: Chronic Qualifiers: Chronic bronchitis type: unspecified Comment: Stable. Not in acute exacerbation. (8) Chronic anemia Code(s): D64.9 - ANEMIA, UNSPECIFIED Status: Chronic (9) GERD (gastroesophageal reflux disease) Code(s): K21.9 - GASTRO-ESOPHAGEAL REFLUX DISEASE WITHOUT ESOPHAGITIS Status: Chronic Qualifiers: Esophagitis presence: without esophagitis Qualified Code(s): K21.9 - Gastro -esophageal reflux disease without esophagitis (10) Hypothyroidism Code(s): E03.9 - HYPOTHYROIDISM, UNSPECIFIED Status: Chronic Qualifiers: Hypothyroidism type: unspecified - Plan cont current plan of care, continue antibiotics, PT/OT, clinical social work therapist, respiratory therapy, incentive spirometry * . dispo when pt and decide on plan
[2018-05-04] MEDS: Saccharomyces boulardii 250 MG CAP PO SCH (14:10)
[2018-05-04] MEDS: Atorvastatin Calcium 10 MG TAB PO SCH (20:56)
[2018-05-04] MEDS: Famotidine 20 MG TAB PO SCH (20:56)
[2018-05-04] MEDS: ALPRAZolam 0.25 MG TAB PO SCH (20:56)
[2018-05-04] MEDS: Diabetic Tussin 200 MG/10 ML UDCUP PO PRN (20:57)
[2018-05-05] MEDS: MEROPENEM 1 GM/50 ML 1 GM in Premix Bag 1 BAG IVPB SCH ×2 (00:04→10:14)
[2018-05-05] MEDS: Benzonatate 100 MG CAP PO PRN ×2 (00:04→06:16)
[2018-05-05] MEDS: HYDROcodone/Acetaminophen 10/325 mg Tablet PO PRN ×3 (01:25→11:01)
[2018-05-05] MEDS: Diabetic Tussin 200 MG/10 ML UDCUP PO PRN ×2 (01:27→06:01)
[2018-05-05] MEDS: Levothyroxine Sodium 125 MCG TAB PO SCH (06:01)
[2018-05-05] MEDS: Mometasone/Formoterol 120 PUFF INHALER INH SCH (06:51)
[2018-05-05] MEDS: Budesonide 0.5 MG/2 ML NEB INH SCH (06:51)
[2018-05-05 08:14] VITALS: BP 119/57; TEMP 98.3
--- NOTE | 2018-05-05 09:01 | DIS ---
PRIMARY CARE PHYSICIAN: Dr. Deepak Ricardo DATE OF ADMISSION: 04/27/2018 DATE OF DISCHARGE: 05/05/2018 PRIMARY CEMENT MIXER DRIVER: Dr. Allen King. CONSULTATIONS: 1. Infectious Disease, Dr. Landry Burks. 2. HOMICIDE INVESTIGATOR, Dr. Sanders 3. Pulmonary Critical Care, Dr. Allen King. PROCEDURES: None. HISTORY AND PHYSICAL: Ms. Santizo is a 70-year-old female with multiple admissions for shortness of breath, hypoxia and physical deconditioning presented to the emergency department for evaluation on 04/27/2018 for evaluation of short of breath. She was brought to the emergency department. We were subsequently called for admission for possible pneumonia, generalized weakness and hypoxia and acute on chronic hypoxic respiratory failure. She was seen late on 04/27/[address] Sorenson. HOSPITAL COURSE: The patient was seen and examined by Dr. Sorenson. She was found to have sepsis cr iteria. She was started on broad spectrum antibiotics, oxygen support and possible pneumonia on ches t x-ray. She had a reactive urinalysis and given her history was placed inpatient. On admission, Dr Golden Burks with Infectious Disease was consulted, and felt that the UTI findings needed to be treated th ough they could be contaminant. The patient was transitioned to meropenem and Levaquin and vancomyci n were discontinued. The patient remained stable to having increased respiratory distress and on , Pulmonary was consulted for recurrent pneumonias. She was seen by Dr. King and recommend ed a barium swallow if indicated by speech therapy. The case was subsequently referred to Dr. Monster cardoso ho follows the patient long-term. On 05/01/2018, I took the case over through discharge. The case was discussed with Dr. Hook, he felt the lung findings were chronic, however, she had increasing shortness of breath on the . CT ang iogram was obtained that showed no evidence of pulmonary embolism and chronic lung changes that Dr. Suzi armstrong again felt were chronic in nature, not new. The patient continued to be treated with antibiotics for her urinary and possible bronchitis infections. Oxygen requirements dropped when she started us ing acapella valve and by late 05/04/2018 she was stable for discharge. Arrangement were made for he r to be transferred to [facility] for rehabilitation and on 05/05/2018 she was stable for disch arge. PHYSICAL EXAMINATION: The patient was seen and examined on the day of discharge. Discharge plan and disposition were discussed with the patient face to face at the bedside. DISCHARGE MEDICATIONS: 1. Tylenol p.r.n. 2. Albuterol sulfate 2 puffs inhaled q.4 hours p.r.n. 3. Albuterol nebs 2.5 mg nebulized q.2 hours p.r.n. wheezing. 4. Xanax 0.25 mg p.o. at bedtime. 5. Amlodipine 10 mg daily. 6. Vitamin C 500 mg daily. 7. Atorvastatin 10 mg p.o. at bedtime. 8. Cholecalciferol 2000 units daily. 9. Fluoxetine 20 mg daily. 10. Lasix 40 mg daily p.r.n. shortness of breath or wheezing. 11. Gabapentin 60 mg p.o. b.i.d. with meals and 800 mg at noon. 12. Mucinex 600 mg p.o. b.i.d. 13. [place] 10 to resume. 14. DuoNeb 3 mL q.6h. p.r.n. shortness of breath or wheezing. 15. Levothyroxine 125 mcg daily. 16. Loperamide 2 mg as needed for diarrhea. 17. Meloxicam 15 mg daily. 18. Dulera 200/5 mcg 2 puffs inhaled b.i.d. 19. Protonix 40 mg daily. 20. Potassium chloride 10 mEq daily p.r.n. 21. Lasix. 22. Florastor 250 mg p.o. daily. 23. Detrol-LA 4 mg daily. 24. Valsartan 320 mg daily. 25. Zantac 150 mg p.o. at bedtime. 26. Benzonatate as needed. 27. Budesonide 500 mg inhaled b.i.d. nebulized. 28. Keflex 500 mg p.o. b.i.d. for UTI prophylaxis. 29. Nexium 400 mg p.o. q.a.m. FOLLOWUP APPOINTMENTS: 1. Primary care physician within a week. 2. Pulmonary Critical Care with Dr. Hook in [address] Burks per his clinic. DISCHARGE CONDITION: Stable. DISPOSITION: Discharged to [facility] for rehabilitation. DISCHARGE ACTIVITY: Per cardiopulmonary limits. DISCHARGE DIET: Heart healthy diet recommended.
[2018-05-05] MEDS: TROSPIUM 20 MG TABLET PO SCH (10:13)
[2018-05-05] MEDS: Ascorbic Acid 500 mg Chewable Tablet PO SCH (10:13)
[2018-05-05] MEDS: Gabapentin 400 MG CAP PO SCH (10:14)
[2018-05-05] MEDS: Meloxicam 15 MG TAB PO SCH (10:15)
[2018-05-05] MEDS: Valsartan 80 MG TAB PO SCH (10:15)
[2018-05-05] MEDS: Multivitamin W/ Minerals 1 TAB PO SCH (10:16)
[2018-05-05] MEDS: FLUoxetine HCl 20 MG CAP PO SCH (10:16)
[2018-05-05] MEDS: guaiFENesin ER 600 MG TAB PO SCH (10:16)
[2018-05-05] MEDS: Enoxaparin Sodium 40 MG/0.4 ML SYRINGE SC SCH (10:16)
[2018-05-05] MEDS: Amlodipine 10 MG TAB PO SCH (10:16)
--- NOTE | 2018-05-05 11:26 | PRG ---
DATE OF SERVICE: 05/05/2018 She is to be transferred to [facility], which is a rehab place. PHYSICAL EXAMINATION: VITAL SIGNS: Sats are 90 on 3 liters, temperature 98, blood pressure 109/57. GENERAL: She is better. RESPIRATORY: She has less cough, less shortness of breath. She has bilateral rhonchi. CARDIAC: Normal S1, S2. No gallops. ABDOMEN: Soft, no masses. IMPRESSION: 1. Urinary tract infection. 2. Underlying chronic lung disease, inability to cough effectively. 3. Kyphoscoliosis. 4. Severe deconditioning. PLAN: I agree with aggressive rehab. She needs to continue the acapella several times a day. We wi ll see as needed.
== END 2018-05-05 12:10 | DRG 871 ==
LOC: ERS 16:38 → 2NO 18:12
PROVIDERS: ADMIT Internal Medicine; ATTEND Internal Medicine
DX: A41.51 Sepsis due to Escherichia coli [E. coli] (principal); J96.01 Acute respiratory failure with hypoxia; N39.0 Urinary tract infection, site not specified; J44.1 Chronic obstructive pulmonary disease with (acute) exacerbation; N76.4 Abscess of vulva; B96.20 Unspecified Escherichia coli [E. coli] as the cause of diseases classified elsewhere; E87.6 Hypokalemia; E78.5 Hyperlipidemia, unspecified; I48.91 Unspecified atrial fibrillation; E03.9 Hypothyroidism, unspecified; Z74.01 Bed confinement status; I12.9 Hypertensive chronic kidney disease with stage 1 through stage 4 chronic kidney disease, or unspecified chronic kidney disease; N18.9 Chronic kidney disease, unspecified; J39.8 Other specified diseases of upper respiratory tract; M19.90 Unspecified osteoarthritis, unspecified site; M41.9 Scoliosis, unspecified; F41.9 Anxiety disorder, unspecified; F32.9 Major depressive disorder, single episode, unspecified; K21.9 Gastro-esophageal reflux disease without esophagitis; R65.20 Severe sepsis without septic shock; J32.9 Chronic sinusitis, unspecified; R13.12 Dysphagia, oropharyngeal phase; Z87.01 Personal history of pneumonia (recurrent); J20.9 Acute bronchitis, unspecified; Z66 Do not resuscitate; Z99.81 Dependence on supplemental oxygen
CPT/HCPCS: 36415; 51701; 71045; 71275; 80048; 80053; 81003; 81015; 82553; 82805; 83605; 83690; 83735; 83880; 84484; 85025; 87040; 87077; 87086; 87186; 87324; 87449; 93005; 94640; 94760; 96361; 96365; 96367; 96375; 99213; A4216; A4353; G0463; G8978-GP-CN; G8979-GP-CK; G8996-GN-CJ; G8997-GN-CJ; J1650; J1956; J2185; J3370; J3480; J7611; J7620; J7626

== ENCOUNTER 2018-05-17 02:52 | Inpatient (IN) | payer MEDICARE, OTHER ==
[2018-05-17 04:55] LABS: CO2 Tension 34.5 mmHg (35.0-45.0); O2 Tension (PaO2) 78.5 mmHg (> 70.0); pH, Arterial 7.41 (7.35-7.45)
[2018-05-17 04:56] LABS: Actual Bicarbonate (HCO3a) 21.5 mEq/L (22-28); Base Excess (BEa) -2.5 mEq/L (-2.0 to +3.0); Carboxyhemoglobin (COHb) 1.5 gm% (0.0-3.0); Hematocrit-ABG 33.8 % (36.0-47.0); Hemoglobin (Hb) 10.2 g/dL (12.0-16.0)
[2018-05-17 04:57] LABS: ALV-art Gradient 591.375 (0-20); Analyzer IN Cardio ER; Calcium, Ionized 1.1 mmol/L (1.12-1.30); Potassium - ABG Lab 4.9 mmol/L (3.70-5.30); Puncture Site RRA
[2018-05-17 05:05] LABS: ALT (SGPT) 20 U/L (8-55); AST (SGOT) 27 U/L (5-34); Albumin 3.5 g/dL (3.4-4.8); Alkaline Phosphatase 132 U/L (40-150); Anion Gap 17 mmol/L (10-20); BUN (Urea Nitrogen) 17 mg/dL (9.8-20.1); Bilirubin, Total 0.6 mg/dL (0.2-1.2); Calc. Creatinine Clearance 0 mL/min (70-130); Calcium 9.3 mg/dL (7.8-10.44); Carbon Dioxide 20 mmol/L (23-31); Chloride 101 mmol/L (98-107); Estimated GFR-MDRD 45; Globulin 3.8 g/dL (2.4-3.5); Glucose 105 mg/dL (83-110); Potassium 5.3 mmol/L (3.5-5.1); Protein, Total 7.3 g/dL (6.0-8.3); Sodium 133 mmol/L (136-145)
[2018-05-17 05:06] LABS: CKMB 0.2 ng/mL (0-6.6); Troponin I 0.015 ng/mL (< 0.028)
[2018-05-17 05:07] LABS: Lactic Acid 0.9 mmol/L (0.5-2.2)
[2018-05-17 05:14] LABS: Hemoglobin 11.5 g/dL (12.0-16.0); Manual Diff?? YES; Mean Corpuscular HGB CONC 33.3 g/dL (32.0-36.0); Mean Corpuscular Hemoglobin 29.1 pg (27.0-31.0); Mean Corpuscular Volume 87.5 fL (78.0-98.0); Mean Platelet Volume 7.6 fL (7.4-10.4); Platelet Count 246 thou/uL (130-400); RBC Distribution Width 14.2 % (11.5-14.5); Red Blood Cell (RBC) Count 3.97 mill/uL (4.20-5.40)
[2018-05-17 05:15] LABS: Band 19 % (5-11); Lymphocytes 10 % (21-51); Monocytes 3 % (0-10); Neutrophil 68 % (42-75); RBC Morphology Normal
[2018-05-17 05:16] LABS: PLT Morphology Comment Appears Adequate
[2018-05-17 05:18] LABS: MDiff Complete? YES
[2018-05-17 05:30] LABS: Bilirubin Negative (Negative); Blood, Urine Negative (Negative); Glucose, Urine (Dipstick) Negative (Negative); Leukocyte Moderate (Negative); Nitrite Positive (Negative); Protein, Urine (Dipstick) 30 mg/dL (Neg-Trace); Specific Gravity, Urine 1.015 (1.005-1.030); Urobilinogen 0.2 mg/dL (0.2-1.0); pH, Urine 7.5 (5.0-9.0)
[2018-05-17 05:31] LABS: Clarity Hazy (Clear)
[2018-05-17 05:32] LABS: Bacteria/HPF 4+ HPF (None Seen); Crystals/HPF None Seen HPF (Negative); Hyaline Casts/LPF NONE SEEN LPF (0-3 Hyaline); Other Casts/LPF None Seen LPF (0-3 Hyaline); RBC/HPF None Seen HPF (0-3); Renal Epithelial None Seen HPF (0-3); Squamous Epithelial None Seen HPF (0-3); Transitional Epithelial NONE SEEN HPF (0-3); Trichomonas/HPF None Seen HPF (None Seen); WBC/HPF 21-50 HPF (0-3); Yeast-All Forms None Seen HPF (None Seen)
[2018-05-17] MEDS ORDERED: Aztreonam 1 GM in Sodium Chloride 0.9% 100 ML IVPB SCH (06:00)
[2018-05-17] MEDS ORDERED: Ondansetron ODT 4 MG TAB PO PRN (07:03)
[2018-05-17 07:10] VITALS: BMI 29.4
--- NOTE | 2018-05-17 08:38 | RAD ---
AP CHEST: Date: 05/17/18 HISTORY: Chest pain. COMPARISON: 05/15/18. FINDINGS/IMPRESSION: Cardiomegaly again noted. CP angles are obscured, consistent with small bilateral effusions. I cannot exclude left basilar atelectasis and/or infiltrate. Upper lung chance appear clear with mild vascula r engorgement. No evidence of significant interval change. POS: [facility]
--- NOTE | 2018-05-17 09:07 | CT ---
PRELIMINARY REPORT/[facility]/EMERGENTY AFTER-HOURS PROCEDURE CT Chest Without Intravenous Contrast CLINICAL HISTORY: 78 years old, female; Dyspnea, SOB, fever Eval for pneumonia vs pleural effusion; HX newly diagnosed pneumonia and on abx for 2 days. TECHNIQUE: Axial computed tomography images of the chest without intravenous contrast. Coronal reformatted images were created and reviewed. COMPARISON: No relevant prior studies available. FINDINGS: Lungs: Patches of infiltrate within each lung with areas of consolidation within each lower lobe and the posterior lingula. Pleural space: Unremarkable. No pneumothorax. No significant effusion. Heart: Aortic and mitral valve annulus calcification. No significant pericardial effusion. Bones/joints: Spinal degenerative changes. No acute fracture. No dislocation. Soft tissues: Unremarkable. Vasculature: 4.1 cm aneurysmal dilatation of the ascending thoracic aorta. Lymph nodes: Unremarkable. No enlarged lymph nodes. IMPRESSION: 1. Patches of infiltrate within each lung with areas of consolidation within each lower lobe and the posterior lingula. 2. 4.1 cm aneurysmal dilatation of the ascending thoracic aorta. Thank you for allowing us to participate in the care of your patient. Dictated and Authenticated by: Jeevan Mary MD 05/17/2018 5:07 AM Central Time ([place] & [place]) FINAL REPORT BY DR [facility] EMERGENCY AFTER HOURS STUDY DATE: 05-17-18 TIME: 4:[address] THORAX NONCONTRAST: HISTORY: 78-year-old female with dyspnea and fever. COMPARISON: 05-01-18 FINDINGS: There are mural calcifications in the bilateral mainstem bronchi, and all of their proximal branches. On the prior CTA, it is noted that there is narrowing of the lumina diffusely throughout the bilater al mainstem bronchi, probably on the basis of bronchomalacia. Furthermore, there was focal, severe na rrowing of the origins of the bilateral lower lobe bronchi by what may have been mucous plugging. Now there is complete opacification and occlusion of the entire bilateral lower lobe bronchi from their origins to throughout their branches. This is associated with patchy consolidations of portions of th e bilateral lower lobes. There is also similar type of occlusion of the posterior segmental branch of left upper lobe bronchus with associated pulmonary opacification at the posterior segment of the lef t upper lobe, smaller than the ones at the bilateral lower lobes. There are mild, small, patchy infiltrates in the lateral aspect of the anterior segment of the right upper lobe. There are multiple moderately enlarged mediastinal lymph nodes, nonspecific. There is cardiomegaly. A therosclerotic calcification and ectasia of thoracic aorta, especially the ascending aorta. Pulmonary trunk and left and right main pulmonary arteries are diffusely dilated. This raises the possibility of pulmonary arterial hypertension. No pleural effusion is identified. No pneumothorax. No pulmonary edema visualized in the bilateral upper lobes. The preliminary report by [facility] does not mention the br onchial occlusion. IMPRESSION: 1. Bilateral lower lobe bronchial occlusions associated with consolidations at the bilateral lower lo bes, and occlusion of segmental bronchus of posterior segment of left upper lobe, associated with con solidation in that location. The consolidations could represent pneumonia, atelectasis, or a combinat ion of both. 2. Cardiomegaly. 3. Mediastinal lymphadenopathy. 4. Possibility of pulmonary arterial hypertension. Recommend clinical correlation. Code QA JN R POS: SONIDO
[2018-05-17] MEDS: Sodium Chloride 0.9% 1,000 ML IV SCH ×2 (09:20→21:27)
[2018-05-17] MEDS: Enoxaparin Sodium 40 MG/0.4 ML SYRINGE SC SCH (09:20)
[2018-05-17] MEDS: Famotidine/PF 20 mg/2ml Vial SLOW IVP SCH ×2 (09:20→21:28)
--- NOTE | 2018-05-17 11:50 | PDOC.PN ---
- Subjective Encounter Start Date: 05/17/18 Encounter Start Time: 11:47 Ms. Santizo was seen today in follow-up of recurrent pneumonia. She is currently on BiPAP. She says she is breathing ok so far. She indicates no pain. - Objective MAR Reviewed: Yes Vital Signs & Weight: Vital Signs (12 hours) Temp Pulse Resp BP Pulse Ox 05/17/18 11:22 98.8 F 95 27 H 147/67 H 96 05/17/18 10:52 82 28 H 95 05/17/18 08:00 98.4 F 88 27 H 99 05/17/18 07:13 88 27 H 95 05/17/18 07:09 93 L 05/17/18 06:40 98.4 F 89 27 H 128/53 L 92 L Weight Weight 182 lb 6 oz Result Diagrams: 05/17/18 03:05 05/17/18 03:05 Phys Exam - Physical Examination HEENT: PERRLA Respiratory: no wheezing + rales at the bases Cardiovascular: RRR, no significant murmur, no rub Gastrointestinal: soft, non-tender, positive bowel sounds Musculoskeletal: no edema Dx/Plan (1) Acute respiratory failure with hypoxemia Code(s): J96.01 - ACUTE RESPIRATORY FAILURE WITH HYPOXIA Status: Acute (2) Hypertension Code(s): I10 - ESSENTIAL (PRIMARY) HYPERTENSION Status: Chronic Qualifiers: (3) Physical deconditioning Code(s): R53.81 - OTHER MALAISE Status: Chronic (4) UTI (urinary tract infection) Status: Resolved Qualifiers: (5) Healthcare associated bacterial pneumonia Code(s): J15.9 - UNSPECIFIED BACTERIAL PNEUMONIA Status: Resolved - Plan * Pneumonia - recurrent- ? aspiratin- her says she eats a regular consistency of food at home- will consult Speech Therapy * UTI- ? recurrent * Will continue Aztreonam and Vancomycin until she can eb evaluated by ID and PCCM * AFIB- her heart rate has been stable * HTN- blood pressure is stable.
[2018-05-17] MEDS ORDERED: Benzonatate 100 MG CAP PO PRN (11:54)
--- NOTE | 2018-05-17 15:40 | CON ---
DATE OF CONSULTATION: 05/17/2018 REASON FOR CONSULTATION: Pneumonia recurrence. HISTORY OF PRESENT ILLNESS: A 78-year-old just recently discharged from the hospital who has a history of hypertension, bronchial tracheomalacia, recurrent episodes of respiratory tract infection as well as a prior episode of UTI who was recently in the hospital at the end of April. At that time, she has had a chest x-ray with increased density in the lateral left lung base. White cell count then was 13.7, went down to 7.4. Microbiology then included urine culture with E. coli with resistant to cephalosporins, probable ESBL phenotype. At that time, she also had a C. difficile antigen and toxin test which was negative. The patient improved with IV broad spectrum antimicrobial coverage and was discharged on 05/05/2018 on a long list of medications including Mucinex and Keflex. Keflex was apparently was indicated for prophylaxis of urinary tract infections. It does not appear that she was released with any antimicrobial therapy for the respiratory tract infection. She remained in the hospital for approximately one week. She was discharged to [facility] for rehabilitation. According to the relatives even upon discharge, she was still having a lot of respiratory symptoms with coughing spells those became worse over time. Subsequently, she developed worsening general malaise and developed fever as well presented again to the emergency room. Initial vital signs with blood pressure 133/91, pulse 112, respiratory rate 26, temperature 105.6, which is a rectal temperature, O2 sats were 93%. Examination showed bilateral abnormal lung sounds with a lot of rhonchi and inspiratory crackles, particularly in the left side. She had a Dunn catheter inserted. CT scan showed a patchy infiltrate much more confluent on the left side than previously and the initial white cell count is up to 21,000 with left shift, 19% bands and chemistry with a creatinine of 1.17, which is higher than her baseline. The patient was transferred to the [facility]. She is currently obtunded. She has a BiPAP mask in place. Dr. King has assessed the patient and discussed the potential need for mechanical ventilation and intubation if she does not improve in the short term. The patient is unable to provide a subjective account. I spoke with the family member and there had been no reported diarrhea or bleeding. No reported aspiration. 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 SOCIAL HISTORY: Never a smoker. Had been living in rehabilitation or at home depending on clinical status. ALLERGIES: AMOXICILLIN and BACTRIM with skin rash. FAMILY HISTORY: Noncontributory. CURRENT MEDICATIONS: Tylenol, DuoNeb, Xanax, Norvasc, Lipitor, aztreonam, benzonatate, cefepime, I believe aztreonam was discontinued. She is also on vancomycin. PHYSICAL EXAMINATION: VITAL SIGNS: T-max 98.4, she was 105 in the emergency room, BP 140/67, pulse 95 , respirations 27, O2 sat 92% with a BiPAP mask. I think she was switched to a nasal cannula now, it was 96 with BiPAP. SKIN: No areas of skin breakdown. She has a Dunn catheter in place. No lymphadenopathy. She is obtunded. Pupils are 1 mm. HEENT: Ocular movements appear conjugate. Sclerae are white. Oral cavity is somewhat dry. Still quite a few teeth in place with some decay. NECK: Supple, jugular vein distention. LUNGS: With coarse breath sounds, possible inspiratory crackles left side. HEART: S1, S2, regular rate. ABDOMEN: Soft, not distended or tender. No ascites. No bladder distention. EXTREMITIES: No joint inflammatory activity. Extremities are warm. NEUROLOGIC: Plantar responses are flexure. No edema. She is obtunded, does not follow commands. LABORATORY DATA: Sodium 133, creatinine 1.17. Liver profile normal. Albumin 3.5. White cell count has been discussed. Urinalysis with 21-50 wbc's. Microbiology with no growth in urine culture at 48 hours from 05/13/2018. CT of chest from today with patches of infiltrate within each lung, there is consolidation in each lower lobe and posterior lingula. ASSESSMENT: Tracheobronchomalacia with recurrent episodes of lower respiratory tract infection. I believe she has not yet recovered from the latest episode and was transitioned to oral Keflex and is probably most likely where she has relapsed. So I do think this is a second primary lung infection, but this recrudescence of prior infection. Continue cefepime, vancomycin, and discontinue aztreonam. Probably treat her for a longer period of time at this time to avoid readmission. In the long-term, she will continue having those problems because of the underlying structural abnormality of her airways. It does not appear that she is eligible for stenting of the airway because of the depth of penetration of the abnormality towards the smaller bronchial airways. May consider sequencial secondary prophylaxis with oral antimicrobials in the future as it is done in patients with non-cystic fibrosis bronchiectasis. JAROD
[2018-05-17] MEDS: Cefepime 1 GM in Sodium Chloride 0.9% 100 ML IVPB SCH ×2 (15:50→21:27)
[2018-05-17] MEDS: Saccharomyces boulardii 250 MG CAP PO SCH (15:52)
[2018-05-17] MEDS ORDERED: Ibuprofen 800 MG TAB PO SCH (16:15)
[2018-05-17 17:01] LABS: Actual Bicarbonate (HCO3a) 19.7 mEq/L (22-28); CO2 Tension 31.7 mmHg (35.0-45.0); pH, Arterial 7.41 (7.35-7.45)
[2018-05-17 17:02] LABS: Base Excess (BEa) -4.1 mEq/L (-2.0 to +3.0); Carboxyhemoglobin (COHb) 0.8 gm% (0.0-3.0); Hemoglobin (Hb) 10.6 g/dL (12.0-16.0)
[2018-05-17 17:04] LABS: ALV-art Gradient 148.055 (0-20); Calcium, Ionized 1.1 mmol/L (1.12-1.30); Potassium - ABG Lab 3.7 mmol/L (3.70-5.30); Puncture Site RRA
--- NOTE | 2018-05-17 18:06 | CON ---
DATE OF CONSULTATION: 05/17/2018 SERVICE: Pulmonary Medicine. HISTORY OF PRESENT ILLNESS: The patient is a 78-year-old white female with past medical history significant for increasing debility and deconditioning over the past several years, which is accelerated over the past 6 months. She has been in the hospital now on 4 separate occasions for respiratory events. Each one of these gets better with antibiotics and pulmonary toileting. She is being gets out of the hospital and she has recurrence in symptoms. It is happening with increasing severity and increasing frequency. She was even intubated in December of this year. Otherwise, there has been no interval change to her condition. Once again, she was in her usual state of health when she started having onset of fevers and mentation changes. She was brought to the emergency department. She was in respiratory distress and initiated on BiPAP therapy. This seemed to improve things for a period of time. She is currently on vancomycin, aztreonam. Overall, things seem to be improving ever so slightly. That being said, a broad picture here is that the patient is having progressive weakness resulting in recurrent respiratory events. I have updated the patient's daughter at bedside today and the patient's family is aware that if we cannot fix the weakness, and possible aspiration related changes. There is a good chance that these events are never going to stop coming in and ultimately could climb the patient's life. The patient is currently obtunded on BiPAP. She wakes up with some gentle stimulation, but drifts off to sleep with no stimulation after a period of one second. She is currently not in a right state in order to suggest what the issues are actually to explain what happened to her bringing her to the hospital. PAST MEDICAL HISTORY: 1. Hypertension. 2. Dyslipidemia. 3. Atrial fibrillation, chronic. 4. Hypothyroidism. 5. Anxiety disorder. 6. Major depressive disorder. 7. Chronic obstructive pulmonary disease. 8. Gastroesophageal reflux disease. 9. Osteoarthritis, severe. PAST SURGICAL HISTORY: 1. Hysterectomy. 2. Appendectomy. 3. Back surgery. 4. Cholecystectomy. ALLERGIES: AMOXICILLIN causes diarrhea. CIPROFLOXACIN is listed, but has previously been tolerated multiple times. ERYTHROMYCIN, FENTANYL, metolazone, OXYCODONE, SULFA, and NABUMETONE. MEDICATIONS: List of her inpatient medications were reviewed. No specific updates were made at this time. FAMILY HISTORY: Noncontributory. SOCIAL HISTORY: She lives at [facility]. She does not have any exposure to alcohol, tobacco or illicit drug use. She is currently in a bedbound state. Occasionally, she will get up into a chair, but for the last 2 months she has essentially been confined to bed. REVIEW OF SYSTEMS: General, head, ears, eyes, nose, throat, cardiovascular, respiratory, gastrointestinal, musculoskeletal, neurologic, and skin is negative except as mentioned in the HPI. PHYSICAL EXAMINATION: VITAL SIGNS: Afebrile, pulse 95, blood pressure 147/67, respirations 27, saturation 96% on BiPAP with 35% FIO2 going into it. HEENT: Normocephalic, atraumatic. Sclerae are white, conjunctivae pink. Oral mucosa is moist without lesions. LUNGS: Decent air entry. There is no prolonged expiratory phase. Extensive rhonchi are present throughout bilateral lung chance. Dependently there are some crackles. No wheezing is appreciated. HEART: Normal rate, regular. ABDOMEN: Soft, nontender, nondistended. Bowel sounds positive. MUSCULOSKELETAL: No cyanosis or clubbing. There is no pitting in the bilateral lower extremities. NEUROLOGIC: Grossly nonfocal. LABORATORY DATA: WBC 21.0, hemoglobin 11.5, platelets 246,000. Band count is 19,000. PH 7.41, pCO2 34, pO2 78 on 100% nonrebreather at that time. Creatinine 1.17. Potassium 5.3. Basic metabolic profile is otherwise unremarkable. Troponin is 0.015, CRP 11.04, lactate is negative x2. Urinalysis is positive for nitrites and 21-50 white blood cells with 4+ bacteria. Otherwise, it is unremarkable. IMAGING: Chest x-ray demonstrates an aspiration related consolidating changes in bilateral lower lungs. Otherwise, I do not appreciate acute cardiopulmonary abnormality. There is a noncontrasted study. ASSESSMENT: 1. Acute hypoxic respiratory failure. 2. Healthcare-associated pneumonia, recurrent secondary to likely aspiration related changes, particularly while sleeping. 3. Urinary tract infection. DISCUSSION AND PLAN: Gill cultures currently pending. Agree with empiric antibiotics. We will focus on pulmonary toileting. We will continue her IV fluids as well as antibiotics. We will start the patient on BiPAP breaks and give her a 50% Ventimask, or nonrebreather in order to maintain saturations of 92%-94%. I agree with Speech Pathology evaluation. I have a very low threshold for first pursuing a modified barium swallow here. At the very least , she needs to keep head of bed elevated to 30-45 degrees. She should not having any p.o. within 2 hours of going to sleep. Additionally, she only needs to be eating from an upright position. Ultimately, the issue that is causing recurrent respiratory events is the weakness, and increasing debility. Without fixing that, ultimately, the patient will not be able to prevent the next episode of pneumonia. I discussed this with the patient who is sleeping and her daughter at bedside today. 70 minutes have been devoted to this patient in various activities. I personally reviewed all imaging studies and laboratory data noted within this document. For fifty percent of this time, I was interacting with the patient at the bedside or coordinating care with the care team. For the remainder of the time I was immediately available to the patient in the hospital unit. JAROD
[2018-05-17] MEDS: Budesonide 0.5 MG/2 ML NEB NEB SCH (18:09)
[2018-05-17] MEDS: Mometasone/Formoterol 120 PUFF INHALER INH SCH (18:47)
[2018-05-17] MEDS ORDERED: Vancomycin HCl 1 GM in Premix Bag 1 BAG IVPB SCH (21:00)
[2018-05-17] MEDS: ALPRAZolam 0.25 MG TAB PO SCH (21:27)
[2018-05-17] MEDS: Atorvastatin Calcium 10 MG TAB PO SCH (21:27)
[2018-05-18] MEDS: Ondansetron HCl/PF 4 MG/2 ML Vial IVP PRN (04:04)
[2018-05-18 05:10] LABS: ALT (SGPT) 14 U/L (8-55); AST (SGOT) 15 U/L (5-34); Albumin 2.9 g/dL (3.4-4.8); Alkaline Phosphatase 115 U/L (40-150); Anion Gap 13 mmol/L (10-20); BUN (Urea Nitrogen) 13 mg/dL (9.8-20.1); Bilirubin, Total 0.6 mg/dL (0.2-1.2); Calc. Creatinine Clearance 72 mL/min (70-130); Calcium 8.5 mg/dL (7.8-10.44); Carbon Dioxide 21 mmol/L (23-31); Chloride 109 mmol/L (98-107); Estimated GFR-MDRD 66; Globulin 2.9 g/dL (2.4-3.5); Glucose 109 mg/dL (83-110); Potassium 3.6 mmol/L (3.5-5.1); Protein, Total 5.8 g/dL (6.0-8.3); Sodium 139 mmol/L (136-145)
[2018-05-18] MEDS: Cefepime 1 GM in Sodium Chloride 0.9% 100 ML IVPB SCH ×3 (05:35→20:45)
[2018-05-18] MEDS: Budesonide 0.5 MG/2 ML NEB NEB SCH ×2 (06:32→18:35)
[2018-05-18] MEDS: Mometasone/Formoterol 120 PUFF INHALER INH SCH ×2 (06:34→18:47)
[2018-05-18 06:41] LABS: Band 24 % (5-11); Lymphocytes 2 % (21-51); MDiff Complete? YES; Mean Corpuscular HGB CONC 31.9 g/dL (32.0-36.0); Mean Corpuscular Hemoglobin 29.4 pg (27.0-31.0); Mean Corpuscular Volume 92.1 fL (78.0-98.0); Mean Platelet Volume 8.1 fL (7.4-10.4); Monocytes 2 % (0-10); Neutrophil 72 % (42-75); PLT Morphology Comment Appears Adequate; Platelet Count 174 thou/uL (130-400); RBC Distribution Width 14.1 % (11.5-14.5); Red Blood Cell (RBC) Count 3.41 mill/uL (4.20-5.40); White Blood Cell (WBC) Count 17.6 thou/uL (4.8-10.8)
--- NOTE | 2018-05-18 07:12 | PDOC.PN ---
- Subjective Encounter Start Date: 05/18/18 Encounter Start Time: 07:10 Ms. Santizo was seen today in follow-up of Pneumonia. She looks a lot better than yesterday, she is much more alert, and able to converse in complete sentences. She admits she feels better, but says she was up most of the night, and is extremely tired. She is aware of the planned Speech Therapy evaluation and if a MBS is ordered she wants to wait and do it tomorrow. - Objective MAR Reviewed: Yes Vital Signs & Weight: Vital Signs (12 hours) Temp Pulse Resp BP Pulse Ox 05/18/18 06:45 96 05/18/18 06:34 110 H 20 98 05/18/18 06:32 89 20 100 05/18/18 06:30 110 H 20 98 05/18/18 04:13 99.2 F 92 14 142/61 H 98 05/18/18 00:00 98.0 F 72 16 133/55 L 99 05/17/18 20:20 97.6 F 91 16 104/47 L 97 05/17/18 19:49 98.9 F 103 H 22 H 99 Weight Weight 180 lb 6.4 oz I&O: 05/17/18 05/18/18 05/19/18 06:59 06:59 06:59 Intake Total 2471 Output Total 3450 Balance -979 Result Diagrams: 05/18/18 04:35 05/18/18 04:35 Phys Exam - Physical Examination HEENT: PERRLA + rhonchi bilaterally and some expiratory wheezes Cardiovascular: RRR, no significant murmur, no rub Gastrointestinal: soft, non-tender, positive bowel sounds Musculoskeletal: no edema Dx/Plan (1) Acute respiratory failure with hypoxemia Code(s): J96.01 - ACUTE RESPIRATORY FAILURE WITH HYPOXIA Status: Acute (2) Hypertension Code(s): I10 - ESSENTIAL (PRIMARY) HYPERTENSION Status: Chronic Qualifiers: (3) Physical deconditioning Code(s): R53.81 - OTHER MALAISE Status: Chronic (4) UTI (urinary tract infection) Status: Resolved Qualifiers: (5) Healthcare associated bacterial pneumonia Code(s): J15.9 - UNSPECIFIED BACTERIAL PNEUMONIA Status: Resolved (6) Hypothyroidism Code(s): E03.9 - HYPOTHYROIDISM, UNSPECIFIED Status: Chronic Qualifiers: Hypothyroidism type: unspecified - Plan * Healthcare Associated Pneumonia- recurrent, vs, partially treated- continue Meroponem and Vancomycin * Continue aggressive Pulmonary Treatments- Speech evaluation pending * HTN- blood pressure is stable. * Hypothyroidism- stable * Severe Deconditioning- continue PT/OT
--- NOTE | 2018-05-18 08:16 | HP ---
CODE STATUS: DNR/DNI. PRIMARY CARE PHYSICIAN: Dr. Deepak Ricardo CHIEF COMPLAINT: Fever, shortness of breath. HISTORIAN: Electronic medical records and the . HISTORY OF PRESENT ILLNESS: This is a 78-year-old female with past medical history of sepsis, pneumonia, C. diff, atrial fibrillation, bronchitis, hypertension, hypothyroidism, hyperlipidemia, asthma, acute kidney injury, presenting to the ED with chief complaint of fever and shortness of breath. Per the , the shortness of breath and the fever have been going on for the past 2 days. The patient was recently hospitalized at [facility] for pneumonia and the patient was on antibiotics. The said that in the usp, not much history was able to be obtained; however, they found that the patient was having progressively worsening shortness of breath and fevers and that prompted the ED visit. The patient admits to fever, shortness of breath, but denied any chills, chest pain, abdominal pain. REVIEW OF SYSTEMS: Positive for fever, shortness of breath and generalized weakness. Negative for all other ones as stated in the HPI and documented. PAST MEDICAL HISTORY: The patient has history of respiratory failure with hypoxia, sepsis, urinary tract infection, pneumonia, C. diff, atrial fibrillation, bronchitis, hypertension, hypothyroidism, hyperlipidemia, asthma and acute kidney failure. PAST SURGICAL HISTORY: The patient a past surgical history of appendectomy, hysterectomy, gallbladder removal. PSYCHIATRIC HISTORY: No previous psychiatric history. SOCIAL HISTORY: Denies alcohol, illicit drug use and smoking history. FAMILY HISTORY: Reviewed and noncontributory for the current presentation. ALLERGIES: Patient is allergic to AMOXICILLIN, AUGMENTIN, BACTRIM, CIPROFLOXACIN, CLINDAMYCIN, ERYTHROMYCIN, FENTANYL, LATEX, METOLAZONE, NUBAIN, OXYCONTIN, POTASSIUM GLUCONATE, SULFATE, ZOLPIDEM. MEDICATIONS: Synthroid, amlodipine, valsartan, fluoxetine, furosemide, Meloxicam, [place], atorvastatin, alprazolam, Centrum, tolterodine, gabapentin, Klor-Con, vitamin D3, vitamin C, Nexium, Zantac, promethazine, albuterol ProAir. PHYSICAL EXAMINATION: VITAL SIGNS: In the ED, the patient's blood pressure 133/91, pulse is 100, pulse was 112, respiratory rate 26, temperature 105.6. On admission, the patient's blood pressure was 158/80, pulse 103, respiratory rate of 28, temperature of 104.8, oxygen saturation of 97 on BiPAP. GENERAL: The patient is lying in bed with a BiPAP placed on her face. The patient seems to be in distress using abdominal muscles for breathing. HEENT: Normocephalic, atraumatic. Pupils are equally round and reactive to light. Extraocular muscles are intact. No scleral icterus. The patient is able to respond to verbal stimuli. Mouth; mucous membranes are dry. NECK: No JVD. RESPIRATORY: There appears to be rhonchi bilaterally at the anterior lung chance and some rales at the posterior lung chance and the BiPAP lung sounds that can also be appreciated. CARDIAC: Tachycardic. ABDOMEN: Obese abdomen, positive bowel sounds in all quadrants, nondistended. No mass. No pulsatile masses. No peritoneal signs, no rigidity, no guarding, no rebound. EXTREMITIES: Upper extremity; the patient had Bebo bandage wrapped around her left wrist. She had strength. The patient did not have good strength at the lower extremities. The patient has good pulses bilaterally. No pedal edema. NEUROLOGIC: The patient is oriented to person, to place, but not to time. Cranial nerves II-XII are intact. No focal neurologic deficits noted. SKIN: Warm, dry and intact. No rashes appreciated. PSYCHIATRIC: The patient is currently on a BiPAP, lethargic. LABORATORY DATA: White count is 21.0, hemoglobin 7.5, hematocrit of 34.7, platelet of 246. ABGs; pH 7.41, pCO2 34.5, pO2 of 78.5. Electrolytes; sodium 133, potassium 5.3, CO2 20, BUN 17, creatinine is 1.17. Urinalysis positive for nitrites and moderate leukocyte esterase. CT chest showed bilateral lower lobe bronchial occlusion associated with airspace densities and consolidations at the bilateral lower lobes and occlusion of segmental bronchus of posterior segment of left upper lobe associated with consolidation in the location. The consolidation probably represent pneumonia, although there is probably a mixture of pneumonia and atelectasis. There is also cardiomegaly and mediastinal lymphadenopathy, possibility of pulmonary artery hypertension. ASSESSMENT AND PLAN: This is a 78-year-old female with recurrent history of pneumonia, presenting with: 1. Sepsis secondary to healthcare associated pneumonia. The patient has recurrent history of pneumonia. Patient was recently discharged in 04/2018. At this point, we will get ID on the case. We will give the patient fluid boluses and put the patient on IV maintenance fluid. We will check patient capillary refills and blood pressure. We will admit the patient to [facility]. We will get a Pulmonology consult. We will follow up on morning labs. We will do IV vancomycin and aztreonam IV. We will follow up blood cultures and we will adjust antibiotics based on cultures. 2. Sepsis, most likely due to urinary tract infection. The patient's urinalysis is positive for urinary tract infection and sent for urine cultures. We will follow up with urine cultures. We will continue patient on broad spectrum antibiotics. We will continue IV fluids. 3. Acute respiratory failure, hypoxemic, currently placed on BiPAP with a setting of 10/5. ABG was done which showed the patient's pH is 7.4, we will continue patient on BiPAP and monitor the patient's respiratory status. 4. Atrial fibrillation. The patient has afib; however, the patient does not qualify for anticoagulation due to the fact the patient has history of gastrointestinal bleed. At this point, we will do subcu heparin. We will do SCDs. We will monitor the patient closely. 5. Hypertension. We will monitor the patient and continue current treatment. 6. History of hypothyroidism. We will continue patient on current treatment. 7. Hyperlipidemia. We will continue patient on current treatment. 8. History of chronic kidney disease stage 3. We will monitor the patient's creatinine currently 1.17, which is around the baseline. 9. Deep venous thrombosis and gastrointestinal prophylaxis. This H&P was dictated by Dr. Robb Bright. [facility]ITAL[facility]
--- NOTE | 2018-05-18 08:54 | ADD-CON ---
DATE OF CONSULTATION: 05/17/2018 ADDENDUM ASSESSMENT: Another possibility will be an atypical infection, fungal mycobacterial, but this appear s to be less likely since usually typically improves quite rapidly with the usual antimicrobial regim ens administered for bacterial pneumonia.
[2018-05-18] MEDS ORDERED: Non-Formulary Item 1 EACH (Fluoxetine Hcl [Fluoxetine Hcl] 20 MG) PO SCH (09:00)
[2018-05-18] MEDS: Gabapentin 400 MG CAP PO SCH ×3 (09:51→17:34)
[2018-05-18] MEDS: Famotidine/PF 20 mg/2ml Vial SLOW IVP SCH (09:52)
[2018-05-18] MEDS: FLUoxetine HCl 20 MG CAP PO SCH (09:52)
[2018-05-18] MEDS: Levothyroxine Sodium 125 MCG TAB PO SCH (09:53)
[2018-05-18] MEDS: Amlodipine 10 MG TAB PO SCH (09:53)
[2018-05-18] MEDS: Enoxaparin Sodium 40 MG/0.4 ML SYRINGE SC SCH (09:53)
[2018-05-18] MEDS: Sodium Chloride 0.9% 1,000 ML IV SCH ×3 (09:54→20:42)
[2018-05-18] MEDS: Vancomycin HCl 1.25 GM in Sodium Chloride 0.9% 250 ML 250 ML IVPB SCH (12:59)
[2018-05-18] MEDS: Saccharomyces boulardii 250 MG CAP PO SCH (15:15)
--- NOTE | 2018-05-18 15:54 | PRG ---
DATE OF SERVICE: 05/18/2018 SERVICE: Pulmonary Medicine. INTERVAL HISTORY: The patient is doing fine from a respiratory standpoint. Mentation hsieh, waxes an d wanes. That being said, she has moments in which she is awake, talkative and participating with ph ysical therapy. The next couple of minutes later, she will be in a deep sleep and challenging to capri use. She has done this on multiple occasions, consistent with a sedated delirium. PHYSICAL EXAMINATION: VITAL SIGNS: Afebrile currently with a T-max of 100.1 overnight. Pulse 85, blood pressure 143/50, r espirations 26, saturation 95% on 3 liters nasal canula via the mouth. HEENT: Normocephalic, atraumatic. Sclerae are white, conjunctivae pink. Oral and nasal mucosa is m oist without lesions. LUNGS: Decent air entry. Rhonchi are present. There is no prolonged expiratory phase or wheezing a ppreciated. HEART: Normal rate, regular. ABDOMEN: Soft, nontender, nondistended. Bowel sounds are positive. MUSCULOSKELETAL: No cyanosis or clubbing. There is no pitting in the bilateral lower extremities. NEUROLOGIC: Nonfocal. LABORATORY DATA: WBC 17.6 and down trending. Hemoglobin 10.0, platelets 174,000. A pH 7.41, pCO2 o f 32, pO2 of 69. Basic metabolic profile and liver function studies are unremarkable. CRP was previ ously elevated. Potassium is 3.6, creatinine has improved to the normal range. Urine culture is rich wing E. coli. Blood cultures negative 1 out of 1. ASSESSMENT: 1. Acute hypoxic respiratory failure. 2. Healthcare-associated pneumonia, recurrent secondary to likely aspiration while sleeping. 3. Urinary tract infection. 4. Delirium, sedated. DISCUSSION AND PLAN: We can transition her out of the IMCU to the regular medical unit. We can give her nasal canula via mouth, nose, or give her a Ventimask in order to maintain saturations of 92-94% . She has no need for the BiPAP. She has intermittent episodes of being normal and sedated. This i s consistent with a likely delirium. She does have very severe underlying debility. Hopefully, over the next 24-48 hours, she will clear her infection profile, but she will need to observe aspiration precautions for life.
--- NOTE | 2018-05-18 18:37 | PRG ---
DATE OF SERVICE: 05/18/2018 SUBJECTIVE: Ms. Santizo is feeling better. She is off the BiPAP mask. She is oriented. Less coug h, no chest pain. Mild dyspnea. No abdominal pain or diarrhea. She has an indwelling Dunn cathete r. OBJECTIVE: VITAL SIGNS: Temperature max 100.1, now 99.9; BP 128/49, pulse 79, respirations 23, O2 sat 92%. GENERAL: Ms. Santizo appears in no distress, but appears chronically ill. Speech is a bit weak, li ttle bit dysphonia, but she has normal thought process. HEENT: The ocular movements are conjugate. LUNGS: With somewhat clear breath sounds, symmetrically distributed. HEART: S1, S2 regular rate. ABDOMEN: Soft, not distended. Able to move extremities equally, although she has weakness in lower extremities with 2+ edema. LABORATORY DATA: Her white cell count is 17.6, hemoglobin 10, platelets 174, 72% neutrophils, and 24 % bands. Sodium 139, creatinine 0.83. Urine culture with E. coli. One set of blood culture thus fa r no growth to date. Currently, she is receiving cefepime and vancomycin. ASSESSMENT AND DISCUSSION: Tracheobronchomalacia with recurrent episodes of lower respiratory tract infection. She probably has a recrudescence of the previous episode. Still on cefepime and vancomyc in. She may have a resistant pathogen, may have to reassess the antimicrobial regimen depending on t omorrow's values. An atypical pathogen is less likely.
[2018-05-18] MEDS: Atorvastatin Calcium 10 MG TAB PO SCH (20:42)
[2018-05-18] MEDS: Famotidine 20 MG TAB PO SCH (20:42)
[2018-05-18] MEDS: ALPRAZolam 0.25 MG TAB PO SCH ×2 (22:10→22:54)
[2018-05-18] MEDS: HYDROcodone/Acetaminophen 5/325 mg Tablet PO PRN (22:54)
[2018-05-19] MEDS: Ondansetron HCl/PF 4 MG/2 ML Vial IVP PRN (04:48)
[2018-05-19] MEDS: Cefepime 1 GM in Sodium Chloride 0.9% 100 ML IVPB SCH ×3 (04:49→20:43)
[2018-05-19 05:06] LABS: Anion Gap 10 mmol/L (10-20); BUN (Urea Nitrogen) 10 mg/dL (9.8-20.1); Calc. Creatinine Clearance 78 mL/min (70-130); Calcium 8.5 mg/dL (7.8-10.44); Carbon Dioxide 23 mmol/L (23-31); Chloride 107 mmol/L (98-107); Estimated GFR-MDRD 73; Glucose 94 mg/dL (83-110); Sodium 137 mmol/L (136-145)
[2018-05-19 05:09] LABS: Potassium 2.9 mmol/L (3.5-5.1)
[2018-05-19 05:16] LABS: #Eosinphils 1.2 thou/uL (0.0-0.7); #Lymphocytes 1.7 thou/uL (1.20-3.40); #Monocytes 0.8 thou/uL (0.11-0.59); #Neutrophils 10.3 thou/uL (1.40-6.50); %Basophils 0.1 % (0.0-1.0); %Eosinophils 8.6 % (0.0-10.0); %Lymphocytes 12.1 % (21.0-51.0); %Monocytes 5.7 % (0.0-10.0); %Neutrophils 73.6 % (42.0-75.0); Hemoglobin 9.4 g/dL (12.0-16.0); Mean Corpuscular HGB CONC 32.2 g/dL (32.0-36.0); Mean Corpuscular Hemoglobin 28.6 pg (27.0-31.0); Mean Corpuscular Volume 88.9 fL (78.0-98.0); Mean Platelet Volume 7.5 fL (7.4-10.4); Platelet Count 177 thou/uL (130-400); RBC Distribution Width 13.7 % (11.5-14.5)
[2018-05-19] MEDS ORDERED: Potassium Chloride 20 MEQ TAB PO SCH (05:30)
[2018-05-19] MEDS: Sodium Chloride 0.9% 1,000 ML IV SCH (05:41)
[2018-05-19] MEDS: HYDROcodone/Acetaminophen 5/325 mg Tablet PO PRN ×2 (05:49→16:12)
[2018-05-19] MEDS: Budesonide 0.5 MG/2 ML NEB NEB SCH ×2 (06:52→19:33)
[2018-05-19] MEDS: Mometasone/Formoterol 120 PUFF INHALER INH SCH ×2 (06:53→19:35)
[2018-05-19] MEDS: Famotidine 20 MG TAB PO SCH ×2 (08:18→20:44)
[2018-05-19] MEDS: Gabapentin 400 MG CAP PO SCH ×3 (08:18→16:14)
[2018-05-19] MEDS: Amlodipine 10 MG TAB PO SCH ×2 (08:18→08:21)
[2018-05-19] MEDS: FLUoxetine HCl 20 MG CAP PO SCH (08:18)
[2018-05-19] MEDS: Levothyroxine Sodium 125 MCG TAB PO SCH (08:18)
[2018-05-19] MEDS: Enoxaparin Sodium 40 MG/0.4 ML SYRINGE SC SCH (08:19)
--- NOTE | 2018-05-19 09:45 | PRG ---
DATE OF SERVICE: 05/19/2018 SERVICE: Pulmonary Medicine. INTERVAL HISTORY: This morning, I find the patient perfectly awake and alert. She is absolutely in no distress. She is breathing comfortably. She is coughing, but not bringing up any sputum. She is being assisted with her breakfast. Otherwise, there has been normal change to her condition. PHYSICAL EXAMINATION: VITAL SIGNS: Afebrile, pulse 82, blood pressure 121/47, respirations 16, saturation 96% on 2 liters nasal cannula. GENERAL: The patient is awake and alert. She is in no apparent distress and breathing comfortably. She is talking in full sentences. LABORATORY DATA: WBC 14.0, hemoglobin 9.4, platelets 177,000. Potassium 2.9. Basic metabolic profi le is otherwise unremarkable. Creatinine continues to trend downward to 0.77. E. coli is growing in the urine, which is sensitive to meropenem, Zosyn, nitrofurantoin, and Bactrim. ASSESSMENT: 1. Acute hypoxic respiratory failure. 2. Healthcare-associated pneumonia, recurrent secondary to overt aspiration while sleeping and/or ea ting. 3. Urinary tract infection secondary to Escherichia coli. 4. Delirium. DISCUSSION AND PLAN: The patient is doing fine from a respiratory standpoint. We are going to reinier nue our supportive care including antibiotics directed at lung issues as well as the urinary tract in fection. Dr. Burks is directing these antibiotics. The potassium will be replaced today. We will c ontinue her mobilization efforts. Hopefully, in 24-48 hours, the patient will be in a condition wher e we can consider transitioning her out of the hospital. A modified barium swallow is pending for to day.
[2018-05-19] MEDS: Potassium Chloride 20 MEQ TAB PO SCH ×2 (10:44→14:00)
--- NOTE | 2018-05-19 12:01 | RAD ---
MODIFIED BARIUM SWALLOW IN THE PRESENCE OF A SPEECH THERAPIST: Date: 05/19/18 HISTORY: Dysphagia, oropharyngeal phase; feeding difficulties. FINDINGS/IMPRESSION: No aspiration or laryngeal penetration is seen. Minimal residue is noted in the piriform sinuses. Please see recommendations of the speech therapist for further management. POS: SONIDO
[2018-05-19] MEDS: Vancomycin HCl 1.25 GM in Sodium Chloride 0.9% 250 ML 250 ML IVPB SCH (13:03)
[2018-05-19 13:07] LABS: Vancomycin, Trough 17.3 ug/mL
[2018-05-19] MEDS: Saccharomyces boulardii 250 MG CAP PO SCH (14:00)
--- NOTE | 2018-05-19 14:38 | PDOC.PN ---
- Subjective Encounter Start Date: 05/19/18 Encounter Start Time: 14:36 Ms. Santizo was seen today in follow-up of UTI, and Pneumonia. She is feeling much better. She ismore alert, and answers questions, and does not have any complaints. - Objective MAR Reviewed: Yes Vital Signs & Weight: Vital Signs (12 hours) Temp Pulse Resp BP BP Pulse Ox 05/19/18 11:15 98.3 F 63 18 122/77 95 05/19/18 08:21 67 116/73 05/19/18 08:00 98.2 F 67 16 92 L 05/19/18 07:43 98.2 F 67 16 116/73 92 L 05/19/18 06:53 59 L 16 94 L 05/19/18 06:52 59 L 18 94 L 05/19/18 06:50 59 L 18 94 L 05/19/18 06:30 59 L 18 94 L 05/19/18 06:00 94 L 05/19/18 04:12 97.8 F 92 16 136/72 96 Weight Weight 191 lb I&O: 05/18/18 05/19/18 05/20/18 06:59 06:59 06:59 Intake Total 2471 2643 Output Total 3450 2875 Balance -979 -232 Result Diagrams: 05/19/18 04:07 05/19/18 04:07 Phys Exam - Physical Examination HEENT: PERRLA Respiratory: no wheezing + rhonchi bilaterally, no rales Cardiovascular: RRR, no significant murmur, no rub Gastrointestinal: soft, non-tender, positive bowel sounds Musculoskeletal: edema present 1+ lower extremity edema Neurological: non-focal Dx/Plan (1) Acute respiratory failure with hypoxemia Code(s): J96.01 - ACUTE RESPIRATORY FAILURE WITH HYPOXIA Status: Acute (2) Hypertension Code(s): I10 - ESSENTIAL (PRIMARY) HYPERTENSION Status: Chronic Qualifiers: (3) Physical deconditioning Code(s): R53.81 - OTHER MALAISE Status: Chronic (4) UTI (urinary tract infection) Status: Resolved Qualifiers: (5) Healthcare associated bacterial pneumonia Code(s): J15.9 - UNSPECIFIED BACTERIAL PNEUMONIA Status: Resolved (6) Hypothyroidism Code(s): E03.9 - HYPOTHYROIDISM, UNSPECIFIED Status: Chronic Qualifiers: Hypothyroidism type: unspecified - Plan * Acute respiratory failure due to pneumonia- continue the current antibiotics * UTI- urine culture is growing E. Coli which is Multi-drug resistant- Will await further recommendations from Dr. Burks * Severe deconditioning, and functionally bed-bound- continue PT/OT * HTN- blood pressure is borderline, and Amlodipine was held- will monitor * Hypothyroidism- clinically euthyroid
[2018-05-19] MEDS: Atorvastatin Calcium 10 MG TAB PO SCH (20:44)
[2018-05-19] MEDS: ALPRAZolam 0.25 MG TAB PO SCH (20:44)
[2018-05-19] MEDS ORDERED: Diabetic Tussin 200 MG/10 ML UDCUP PO PRN (22:49)
[2018-05-20 05:07] LABS: #Eosinphils 1.6 thou/uL (0.0-0.7); #Lymphocytes 1.6 thou/uL (1.20-3.40); #Monocytes 0.8 thou/uL (0.11-0.59); #Neutrophils 6.5 thou/uL (1.40-6.50); %Basophils 0.3 % (0.0-1.0); %Eosinophils 15.1 % (0.0-10.0); %Lymphocytes 14.8 % (21.0-51.0); %Monocytes 7.9 % (0.0-10.0); Hemoglobin 9.5 g/dL (12.0-16.0); Mean Corpuscular HGB CONC 32.8 g/dL (32.0-36.0); Mean Corpuscular Hemoglobin 29.6 pg (27.0-31.0); Mean Corpuscular Volume 90.2 fL (78.0-98.0); Mean Platelet Volume 7.5 fL (7.4-10.4); Platelet Count 179 thou/uL (130-400); RBC Distribution Width 13.7 % (11.5-14.5); White Blood Cell (WBC) Count 10.5 thou/uL (4.8-10.8)
[2018-05-20 05:29] LABS: Calc. Creatinine Clearance 82 mL/min (70-130); Estimated GFR-MDRD 73
[2018-05-20 05:33] LABS: Anion Gap 10 mmol/L (10-20); BUN (Urea Nitrogen) 7 mg/dL (9.8-20.1); Calcium 8.6 mg/dL (7.8-10.44); Carbon Dioxide 19 mmol/L (23-31); Chloride 109 mmol/L (98-107); Glucose 85 mg/dL (83-110); Magnesium 1.5 mg/dL (1.6-2.6); Potassium 4.4 mmol/L (3.5-5.1); Sodium 134 mmol/L (136-145)
[2018-05-20] MEDS: Cefepime 1 GM in Sodium Chloride 0.9% 100 ML IVPB SCH ×3 (05:50→20:39)
[2018-05-20] MEDS: Budesonide 0.5 MG/2 ML NEB NEB SCH ×2 (07:39→18:33)
[2018-05-20] MEDS: Mometasone/Formoterol 120 PUFF INHALER INH SCH ×2 (07:44→18:41)
[2018-05-20] MEDS: Gabapentin 400 MG CAP PO SCH ×3 (08:02→17:30)
[2018-05-20] MEDS: guaiFENesin ER 600 MG TAB PO SCH ×2 (08:03→20:38)
[2018-05-20] MEDS: Enoxaparin Sodium 40 MG/0.4 ML SYRINGE SC SCH (08:03)
[2018-05-20] MEDS: Levothyroxine Sodium 125 MCG TAB PO SCH (08:03)
[2018-05-20] MEDS: Amlodipine 10 MG TAB PO SCH (08:03)
[2018-05-20] MEDS: FLUoxetine HCl 20 MG CAP PO SCH (08:03)
[2018-05-20] MEDS: Famotidine 20 MG TAB PO SCH ×2 (08:03→20:39)
[2018-05-20] MEDS: HYDROcodone/Acetaminophen 5/325 mg Tablet PO PRN ×2 (11:27→16:53)
[2018-05-20] MEDS: Vancomycin HCl 1.25 GM in Sodium Chloride 0.9% 250 ML 250 ML IVPB SCH (12:32)
--- NOTE | 2018-05-20 12:51 | PDOC.PN ---
- Subjective Encounter Start Date: 05/20/18 Encounter Start Time: 12:48 Ms. Santizo was seen today in follow-up of UTI, and Pneumonia. She is doing better. She is less short of breath, and is still feeling a bit weak. - Objective MAR Reviewed: Yes Vital Signs & Weight: Vital Signs (12 hours) Temp Pulse Resp BP BP Pulse Ox 05/20/18 08:03 98.9 F 78 18 148/79 H 148/79 H 92 L 05/20/18 08:00 98.9 F 78 18 92 L 05/20/18 07:46 93 L 05/20/18 07:44 59 L 16 93 L 05/20/18 07:43 59 L 16 93 L 05/20/18 07:39 59 L 16 93 L 05/20/18 06:30 59 L 18 93 L Weight Weight 193 lb 8 oz I&O: 05/19/18 05/20/18 05/21/18 06:59 06:59 06:59 Intake Total 2643 1560 Output Total 2875 2150 Balance -232 -590 Result Diagrams: 05/20/18 04:40 05/20/18 04:40 Phys Exam - Physical Examination HEENT: PERRLA + rales at the left base Cardiovascular: RRR, no significant murmur, no rub Gastrointestinal: soft, non-tender, positive bowel sounds Musculoskeletal: no edema Dx/Plan (1) Acute respiratory failure with hypoxemia Code(s): J96.01 - ACUTE RESPIRATORY FAILURE WITH HYPOXIA Status: Acute (2) Hypertension Code(s): I10 - ESSENTIAL (PRIMARY) HYPERTENSION Status: Chronic Qualifiers: (3) Physical deconditioning Code(s): R53.81 - OTHER MALAISE Status: Chronic (4) UTI (urinary tract infection) Status: Resolved Qualifiers: (5) Healthcare associated bacterial pneumonia Code(s): J15.9 - UNSPECIFIED BACTERIAL PNEUMONIA Status: Resolved (6) Hypothyroidism Code(s): E03.9 - HYPOTHYROIDISM, UNSPECIFIED Status: Chronic Qualifiers: Hypothyroidism type: unspecified - Plan * UTI- Urine culture is growing E. coli which is multi drug resistant- continue Cefepime, and await ID opinion * Pneumonia- improved- she is at risk for recurrence due to tracheo-malacia, and a weaker swallow. * Severe deconditioning- continue PT/OT * HTN- blood pressure is stable * Hypothyroidism- stable
[2018-05-20] MEDS: Saccharomyces boulardii 250 MG CAP PO SCH (13:29)
--- NOTE | 2018-05-20 13:32 | PRG ---
DATE OF SERVICE: 05/20/2018 SUBJECTIVE: Ms. Santizo appears to be doing better. She is having some mild nausea. OBJECTIVE: VITAL SIGNS: Temperature 98.9, pulse 78, respirations 18, O2 sat 92%, blood pressure 140/79. HEENT: Unremarkable. NECK: No adenopathy or JVD. LUNGS: Clear. ABDOMEN: Soft. EXTREMITIES: No edema. LABORATORY DATA: White blood cell count 10, hematocrit 28.8, platelet count 179. Sodium 134, potass ium 4.4, chloride 109, CO2 19, BUN 7, creatinine 0.7, glucose 73. ASSESSMENT: 1. Stable pulmonary status. 2. Status post acute hypoxic respiratory failure. 3. Healthcare-associated pneumonia secondary to aspiration. 4. Urinary tract infection. 5. Improved delirium. PLAN: Continue supportive care with the antibiotics.
[2018-05-20] MEDS: Atorvastatin Calcium 10 MG TAB PO SCH (20:38)
[2018-05-20] MEDS: Magnesium Oxide 400 MG TAB PO SCH (20:39)
[2018-05-20] MEDS: Acetaminophen 325 MG TAB PO PRN (21:38)
[2018-05-20] MEDS: ALPRAZolam 0.25 MG TAB PO SCH (21:38)
[2018-05-21] MEDS: Cefepime 1 GM in Sodium Chloride 0.9% 100 ML IVPB SCH ×3 (05:37→20:36)
[2018-05-21 06:06] LABS: #Eosinphils 1.4 thou/uL (0.0-0.7); #Lymphocytes 1.7 thou/uL (1.20-3.40); #Monocytes 0.8 thou/uL (0.11-0.59); #Neutrophils 5.8 thou/uL (1.40-6.50); %Basophils 0.4 % (0.0-1.0); %Eosinophils 14.2 % (0.0-10.0); %Lymphocytes 17.1 % (21.0-51.0); %Monocytes 7.7 % (0.0-10.0); %Neutrophils 60.5 % (42.0-75.0); Hemoglobin 9.3 g/dL (12.0-16.0); Mean Corpuscular HGB CONC 32.8 g/dL (32.0-36.0); Mean Corpuscular Hemoglobin 29.1 pg (27.0-31.0); Mean Corpuscular Volume 88.9 fL (78.0-98.0); Mean Platelet Volume 7.6 fL (7.4-10.4); Platelet Count 210 thou/uL (130-400); RBC Distribution Width 13.5 % (11.5-14.5); Red Blood Cell (RBC) Count 3.19 mill/uL (4.20-5.40); White Blood Cell (WBC) Count 9.6 thou/uL (4.8-10.8)
[2018-05-21 06:18] LABS: Anion Gap 10 mmol/L (10-20); BUN (Urea Nitrogen) 8 mg/dL (9.8-20.1); Calc. Creatinine Clearance 80 mL/min (70-130); Calcium 8.8 mg/dL (7.8-10.44); Carbon Dioxide 24 mmol/L (23-31); Chloride 108 mmol/L (98-107); Estimated GFR-MDRD 70; Glucose 84 mg/dL (83-110); Magnesium 1.7 mg/dL (1.6-2.6); Potassium 3.8 mmol/L (3.5-5.1); Sodium 138 mmol/L (136-145)
[2018-05-21] MEDS: Budesonide 0.5 MG/2 ML NEB NEB SCH ×2 (06:34→18:52)
[2018-05-21] MEDS: Mometasone/Formoterol 120 PUFF INHALER INH SCH ×2 (06:38→18:50)
[2018-05-21] MEDS: Enoxaparin Sodium 40 MG/0.4 ML SYRINGE SC SCH (10:08)
[2018-05-21] MEDS: Levothyroxine Sodium 125 MCG TAB PO SCH (10:08)
[2018-05-21] MEDS: Magnesium Oxide 400 MG TAB PO SCH (10:09)
[2018-05-21] MEDS: Gabapentin 400 MG CAP PO SCH ×3 (10:09→16:23)
[2018-05-21] MEDS: Amlodipine 10 MG TAB PO SCH (10:09)
[2018-05-21] MEDS: FLUoxetine HCl 20 MG CAP PO SCH (10:10)
[2018-05-21] MEDS: Famotidine 20 MG TAB PO SCH ×2 (10:10→20:36)
[2018-05-21] MEDS: guaiFENesin ER 600 MG TAB PO SCH ×2 (10:10→20:36)
[2018-05-21] MEDS: Acetaminophen 325 MG TAB PO PRN ×2 (10:47→15:15)
[2018-05-21 12:33] LABS: Vancomycin, Trough 23.4 ug/mL
[2018-05-21] MEDS: Vancomycin HCl 1.25 GM in Sodium Chloride 0.9% 250 ML 250 ML IVPB SCH (13:36)
--- NOTE | 2018-05-21 14:27 | PRG ---
DATE OF SERVICE: 05/21/2018 SUBJECTIVE: The patient apparently was not feeling very well today. The family tells me she has had fever, although I cannot find that recorded in the nurses' notes. OBJECTIVE: VITAL SIGNS: Temperature is 98.3, pulse 106, blood pressure 174/82, O2 sat 92% on 4 liters. HEENT: Unremarkable. NECK: No JVD. CHEST: Fairly clear. CARDIAC: S1 and S2 regular. ABDOMEN: Soft. EXTREMITIES: No edema. LABORATORY DATA: White blood cell count 9.6, hematocrit 28.4, platelet count 210,000. Sodium 138, p otassium 3.8, chloride 108, CO2 24, BUN 8, creatinine 0.8, glucose 84. ASSESSMENT: 1. Stable pulmonary status. 2. Status post acute hypoxic respiratory failure. 3. Health care associated pneumonia from aspiration. 4. Urinary tract infection. 5. Delirium. PLAN: Continue antibiotics and conservative care.
--- NOTE | 2018-05-21 14:35 | PDOC.PN ---
- Subjective Encounter Start Date: 05/21/18 Encounter Start Time: 13:15 Subjective: uncontrolled cough with eating, on oxygen - Objective MAR Reviewed: Yes Vital Signs & Weight: Vital Signs (12 hours) Temp Pulse Resp BP BP Pulse Ox 05/21/18 10:09 106 H 174/82 H 05/21/18 08:00 98.3 F 110 H 18 05/21/18 07:20 98.3 F 110 H 18 157/79 H 90 L 05/21/18 06:37 60 12 92 L 05/21/18 06:34 60 12 92 L Weight Weight 190 lb 2 oz I&O: 05/20/18 05/21/18 05/22/18 06:59 06:59 06:59 Intake Total 1560 1550 Output Total 2150 3650 Balance -590 -2100 Result Diagrams: 05/21/18 04:40 05/21/18 04:40 Radiology Reviewed by me: Yes Phys Exam - Physical Examination HEENT: PERRLA, moist MMs, sclera anicteric, TM's clear, oral pharynx no lesions , 2+ tonsils Neck: no nodes, no JVD, supple, full ROM Respiratory: wheezing present coarse breath sounds Cardiovascular: RRR, no significant murmur, no rub, gallop, irregular Musculoskeletal: no edema Neurological: non-focal, normal sensation, moves all 4 limbs Psychiatric: normal affect, A&O x 3 Skin: no rash, normal turgor, cap refill <2 seconds Dx/Plan (1) Acute respiratory failure with hypoxemia Code(s): J96.01 - ACUTE RESPIRATORY FAILURE WITH HYPOXIA Status: Acute (2) Physical deconditioning Code(s): R53.81 - OTHER MALAISE Status: Chronic Comment: PT/OT consulted. Will likely need SNF placement. (3) UTI (urinary tract infection) Status: Acute Qualifiers: Urinary tract infection type: acute cystitis (4) Hypothyroidism Code(s): E03.9 - HYPOTHYROIDISM, UNSPECIFIED Status: Chronic Qualifiers: Hypothyroidism type: unspecified (5) Healthcare associated bacterial pneumonia Code(s): J15.9 - UNSPECIFIED BACTERIAL PNEUMONIA Status: Acute - Plan cont current plan of care, plan discussed w/ family, PT/OT, respiratory therapy * UTI- Urine culture is growing E. coli which is multi drug resistant- continue Cefepime, Hold Vanc for elevated trough. REcheck Vanc random in am and start Vanc accordingly * Pneumonia- improved- she is at risk for recurrence due to tracheo-malacia, and a weaker swallow. * Severe deconditioning- continue PT/OT * HTN- blood pressure is stable * Hypothyroidism- stable * .
[2018-05-21] MEDS ORDERED: Vancomycin HCl 1 GM in Premix Bag 1 BAG IVPB SCH (15:00)
[2018-05-21] MEDS: Saccharomyces boulardii 250 MG CAP PO SCH (15:01)
[2018-05-21] MEDS: HYDROcodone/Acetaminophen 5/325 mg Tablet PO PRN (16:25)
[2018-05-21] MEDS: Atorvastatin Calcium 10 MG TAB PO SCH (20:36)
[2018-05-21] MEDS: ALPRAZolam 0.25 MG TAB PO SCH (21:32)
[2018-05-22] MEDS: Cefepime 1 GM in Sodium Chloride 0.9% 100 ML IVPB SCH ×3 (05:15→21:07)
[2018-05-22] MEDS: Budesonide 0.5 MG/2 ML NEB NEB SCH ×2 (07:47→19:06)
[2018-05-22] MEDS: Mometasone/Formoterol 120 PUFF INHALER INH SCH ×2 (07:47→19:06)
[2018-05-22] MEDS: Amlodipine 10 MG TAB PO SCH (08:59)
[2018-05-22] MEDS: Famotidine 20 MG TAB PO SCH ×2 (08:59→21:07)
[2018-05-22] MEDS: Gabapentin 400 MG CAP PO SCH ×3 (08:59→17:38)
[2018-05-22] MEDS: Enoxaparin Sodium 40 MG/0.4 ML SYRINGE SC SCH (09:00)
[2018-05-22] MEDS: FLUoxetine HCl 20 MG CAP PO SCH (09:00)
[2018-05-22] MEDS: Levothyroxine Sodium 125 MCG TAB PO SCH (09:00)
[2018-05-22] MEDS: guaiFENesin ER 600 MG TAB PO SCH ×2 (09:00→21:07)
[2018-05-22 09:03] LABS: Anion Gap 11 mmol/L (10-20); BUN (Urea Nitrogen) 8 mg/dL (9.8-20.1); Calc. Creatinine Clearance 83 mL/min (70-130); Calcium 8.6 mg/dL (7.8-10.44); Carbon Dioxide 22 mmol/L (23-31); Chloride 104 mmol/L (98-107); Estimated GFR-MDRD 74; Glucose 83 mg/dL (83-110); Potassium 3.4 mmol/L (3.5-5.1); Sodium 134 mmol/L (136-145)
[2018-05-22] MEDS: Saccharomyces boulardii 250 MG CAP PO SCH (14:35)
[2018-05-22] MEDS ORDERED: Potassium Chloride 20 MEQ TAB PO SCH (15:00)
--- NOTE | 2018-05-22 15:15 | PDOC.PN ---
- Subjective Encounter Start Date: 05/22/18 (f/u pneumonia) Encounter Start Time: 15:13 Subjective: pt reports not feeling as well today as yesterday. less appetite -: less energy this morning. was able to work with PT today - Objective Resuscitation Status: Resuscitation Status DNR:Do Not Resuscitate Vital Signs & Weight: Vital Signs (12 hours) Temp Pulse Resp BP BP Pulse Ox 05/22/18 14:05 76 20 95 05/22/18 10:44 79 20 96 05/22/18 08:59 90 153/84 H 05/22/18 08:00 98.6 F 90 18 94 L 05/22/18 07:50 98.6 F 90 18 153/84 H 98 05/22/18 07:44 72 16 96 05/22/18 03:29 95 Weight Weight 190 lb 2 oz I&O: 05/21/18 05/22/18 05/23/18 06:59 06:59 06:59 Intake Total 1550 680 Output Total 3650 1200 Balance -2100 -520 Result Diagrams: 05/21/18 04:40 05/22/18 04:37 Phys Exam - Physical Examination Constitutional: NAD rhonchi and rales at bases, fair air movement Cardiovascular: RRR, no significant murmur Gastrointestinal: soft, non-tender, positive bowel sounds Musculoskeletal: no edema Neurological: non-focal, moves all 4 limbs Psychiatric: normal affect Skin: no rash Dx/Plan (1) Acute respiratory failure with hypoxemia Code(s): J96.01 - ACUTE RESPIRATORY FAILURE WITH HYPOXIA Status: Acute (2) 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 Code(s): J39.8 - OTHER SPECIFIED DISEASES OF UPPER RESPIRATORY TRACT Status: Acute (3) Healthcare associated bacterial pneumonia Code(s): J15.9 - UNSPECIFIED BACTERIAL PNEUMONIA Status: Acute (4) Hypokalemia Code(s): E87.6 - HYPOKALEMIA Status: Acute (5) COPD (chronic obstructive pulmonary disease) Status: Chronic Qualifiers: COPD type: COPD with acute exacerbation Qualified Code(s): J44.1 - Chronic obstructive pulmonary disease with (acute) exacerbation (6) Chronic anemia Code(s): D64.9 - ANEMIA, UNSPECIFIED Status: Chronic (7) GERD (gastroesophageal reflux disease) Code(s): K21.9 - GASTRO-ESOPHAGEAL REFLUX DISEASE WITHOUT ESOPHAGITIS Status: Chronic Qualifiers: Esophagitis presence: without esophagitis Qualified Code(s): K21.9 - Gastro -esophageal reflux disease without esophagitis (8) Hypertension Code(s): I10 - ESSENTIAL (PRIMARY) HYPERTENSION Status: Chronic Qualifiers: Hypertension type: essential hypertension (9) Hypothyroidism Code(s): E03.9 - HYPOTHYROIDISM, UNSPECIFIED Status: Chronic Qualifiers: Hypothyroidism type: unspecified (10) Physical deconditioning Code(s): R53.81 - OTHER MALAISE Status: Chronic - Plan * Pneumonia -d/w Dr. Burks - needs 2 weeks of IV Cefepime, then transition over to either inhaled tobramycin by nebulizer or doxycycline 100 mg BID to start with the goal of preventing colonization as pt at high risk of recurrent infections. E Coli in the urine resistant to cefepime - however pt's wbc count is declining - likely colonization. * * replete potassium * case management consult for SNF * * dvt prophy - lovenox * gi prophy - not indicated * code status - confirmed with patient and OOH DNR - DNR, updated in system * * pt remains at high risk in current condition.
[2018-05-22] MEDS: HYDROcodone/Acetaminophen 5/325 mg Tablet PO PRN (17:37)
--- NOTE | 2018-05-22 20:01 | PRG ---
DATE OF SERVICE: 05/22/2018 SUBJECTIVE: Still coughing intermittently, swallowing without problems. No headaches. Mild dyspnea. No chest pain, no abdominal pain. OBJECTIVE: VITAL SIGNS: T-max 98.4, blood pressure 150/92, pulse 83. GENERAL: Chronically ill appearing, in no distress, coughing intermittently. HEENT: Ocular movements are conjugate. LUNGS: With fairly clear breath sounds at this time. CARDIOVASCULAR: S1, S2, regular rate. ABDOMEN: Soft. LABORATORY DATA: White cell count down to 9.6, hemoglobin 9.3, platelets 210. Sodium 134, creatinine 0.76. ASSESSMENT AND DISCUSSION: Tracheobronchomalacia with recurrent episodes of lower respiratory infection, at this time, she is clearly responded to therapy. I believe the urinary tract findings are not pertinent to the current syndrome that led to the admission this time. I would consider inhaled tobramycin or cefepime with [facility] assistance in the outpatient setting after she finishes her course of cefepime 2 weeks of therapy. JAROD
[2018-05-22] MEDS: ALPRAZolam 0.25 MG TAB PO SCH (21:07)
[2018-05-22] MEDS: Atorvastatin Calcium 10 MG TAB PO SCH (21:07)
[2018-05-23 04:50] LABS: Anion Gap 12 mmol/L (10-20); BUN (Urea Nitrogen) 9 mg/dL (9.8-20.1); Calc. Creatinine Clearance 82 mL/min (70-130); Calcium 8.6 mg/dL (7.8-10.44); Carbon Dioxide 22 mmol/L (23-31); Chloride 105 mmol/L (98-107); Estimated GFR-MDRD 73; Glucose 99 mg/dL (83-110); Magnesium 1.6 mg/dL (1.6-2.6); Potassium 3.6 mmol/L (3.5-5.1); Sodium 135 mmol/L (136-145)
[2018-05-23] MEDS: HYDROcodone/Acetaminophen 5/325 mg Tablet PO PRN ×3 (05:17→16:18)
[2018-05-23] MEDS: Cefepime 1 GM in Sodium Chloride 0.9% 100 ML IVPB SCH ×3 (05:17→21:35)
[2018-05-23] MEDS: Budesonide 0.5 MG/2 ML NEB NEB SCH ×2 (07:21→18:38)
[2018-05-23] MEDS: Mometasone/Formoterol 120 PUFF INHALER INH SCH ×2 (07:25→18:38)
[2018-05-23] MEDS: Gabapentin 400 MG CAP PO SCH ×3 (08:17→16:19)
[2018-05-23] MEDS: Enoxaparin Sodium 40 MG/0.4 ML SYRINGE SC SCH (08:17)
[2018-05-23] MEDS: guaiFENesin ER 600 MG TAB PO SCH ×2 (08:17→21:35)
[2018-05-23] MEDS: FLUoxetine HCl 20 MG CAP PO SCH (08:17)
[2018-05-23] MEDS: Levothyroxine Sodium 125 MCG TAB PO SCH (08:17)
[2018-05-23] MEDS: Famotidine 20 MG TAB PO SCH ×2 (08:18→21:35)
[2018-05-23] MEDS: Amlodipine 10 MG TAB PO SCH (08:18)
[2018-05-23] MEDS: Acetaminophen 325 MG TAB PO PRN (08:19)
--- NOTE | 2018-05-23 13:06 | PDOC.PN ---
- Subjective Encounter Start Date: 05/23/18 (f/u pneumonia) Encounter Start Time: 13:03 Subjective: Pt not feeling as well today - nausea earlier, stomach discomfort -: that has resolved. - Objective Resuscitation Status: Resuscitation Status DNR:Do Not Resuscitate Vital Signs & Weight: Vital Signs (12 hours) Temp Pulse Resp BP BP Pulse Ox 05/23/18 08:18 77 144/76 H 05/23/18 08:00 98.2 F 77 16 97 05/23/18 07:55 98.2 F 77 16 144/76 H 97 05/23/18 07:25 68 16 96 05/23/18 07:24 68 16 96 05/23/18 07:21 68 16 96 05/23/18 02:57 69 16 96 Weight Weight 190 lb 2 oz I&O: 05/22/18 05/23/18 05/24/18 06:59 06:59 06:59 Intake Total 680 440 Output Total 1200 600 Balance -520 -160 Result Diagrams: 05/21/18 04:40 05/23/18 03:45 Phys Exam - Physical Examination Constitutional: NAD Respiratory: no wheezing, no rhonchi right basilar rales Cardiovascular: RRR, no significant murmur Gastrointestinal: soft, non-tender, no distention, positive bowel sounds Musculoskeletal: no edema Neurological: moves all 4 limbs Psychiatric: normal affect Skin: no rash Dx/Plan (1) Acute respiratory failure with hypoxemia Code(s): J96.01 - ACUTE RESPIRATORY FAILURE WITH HYPOXIA Status: Acute (2) 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 Code(s): J39.8 - OTHER SPECIFIED DISEASES OF UPPER RESPIRATORY TRACT Status: Acute (3) Healthcare associated bacterial pneumonia Code(s): J15.9 - UNSPECIFIED BACTERIAL PNEUMONIA Status: Acute (4) Hypokalemia Code(s): E87.6 - HYPOKALEMIA Status: Acute (5) COPD (chronic obstructive pulmonary disease) Status: Chronic Qualifiers: COPD type: COPD with acute exacerbation Qualified Code(s): J44.1 - Chronic obstructive pulmonary disease with (acute) exacerbation (6) Chronic anemia Code(s): D64.9 - ANEMIA, UNSPECIFIED Status: Chronic (7) GERD (gastroesophageal reflux disease) Code(s): K21.9 - GASTRO-ESOPHAGEAL REFLUX DISEASE WITHOUT ESOPHAGITIS Status: Chronic Qualifiers: Esophagitis presence: without esophagitis Qualified Code(s): K21.9 - Gastro -esophageal reflux disease without esophagitis (8) Hypertension Code(s): I10 - ESSENTIAL (PRIMARY) HYPERTENSION Status: Chronic Qualifiers: Hypertension type: essential hypertension (9) Hypothyroidism Code(s): E03.9 - HYPOTHYROIDISM, UNSPECIFIED Status: Chronic Qualifiers: Hypothyroidism type: unspecified (10) Physical deconditioning Code(s): R53.81 - OTHER MALAISE Status: Chronic - Plan * * Pneumonia -d/w Dr. Burks yesterday- needs 2 weeks of IV Cefepime, then transition over to either inhaled tobramycin by nebulizer available through [facility] or doxycycline 100 mg BID to start with the goal of preventing colonization as pt at high risk of recurrent infections due to tracheobrochomalacia. E Coli in the urine resistant to cefepime - however pt's wbc count is declining - likely colonization. * * schedule daily low dose potassium to avoid hypokalemia * Pt approved for SNF back to the [place], however she desires to hold until tomorrow as not feeling as well today - anticipate she will be ready in AM * * Monitor GI sx as she is on cefepime. C diff testing from 05/17 was negative. * * continue home meds as ordered and pt/ot. * * dvt prophy - lovenox * gi prophy - not indicated * code status - confirmed with patient and OOH DNR - DNR, updated in system * * pt remains at high risk in current condition..
[2018-05-23] MEDS: Saccharomyces boulardii 250 MG CAP PO SCH (14:14)
[2018-05-23] MEDS: ALPRAZolam 0.25 MG TAB PO SCH (21:35)
[2018-05-23] MEDS: Atorvastatin Calcium 10 MG TAB PO SCH (21:35)
[2018-05-24 05:30] LABS: #Eosinphils 1.4 thou/uL (0.0-0.7); #Lymphocytes 1.7 thou/uL (1.20-3.40); #Monocytes 0.8 thou/uL (0.11-0.59); %Basophils 0.4 % (0.0-1.0); %Eosinophils 15.3 % (0.0-10.0); %Lymphocytes 19.4 % (21.0-51.0); %Monocytes 9.1 % (0.0-10.0); %Neutrophils 55.8 % (42.0-75.0); Hemoglobin 8.7 g/dL (12.0-16.0); Mean Corpuscular Hemoglobin 29.4 pg (27.0-31.0); Mean Corpuscular Volume 89.1 fL (78.0-98.0); Mean Platelet Volume 6.7 fL (7.4-10.4); Platelet Count 252 thou/uL (130-400); RBC Distribution Width 13.4 % (11.5-14.5); Red Blood Cell (RBC) Count 2.96 mill/uL (4.20-5.40)
[2018-05-24 05:53] LABS: Anion Gap 12 mmol/L (10-20); BUN (Urea Nitrogen) 10 mg/dL (9.8-20.1); Calc. Creatinine Clearance 83 mL/min (70-130); Calcium 8.7 mg/dL (7.8-10.44); Carbon Dioxide 22 mmol/L (23-31); Chloride 107 mmol/L (98-107); Estimated GFR-MDRD 74; Glucose 89 mg/dL (83-110); Magnesium 1.8 mg/dL (1.6-2.6); Potassium 3.7 mmol/L (3.5-5.1); Sodium 137 mmol/L (136-145)
[2018-05-24] MEDS: Cefepime 1 GM in Sodium Chloride 0.9% 100 ML IVPB SCH ×2 (05:54→14:07)
[2018-05-24] MEDS ORDERED: Levothyroxine Sodium 125 MCG TAB PO SCH (06:00)
[2018-05-24] MEDS: Budesonide 0.5 MG/2 ML NEB NEB SCH (06:55)
[2018-05-24] MEDS: Mometasone/Formoterol 120 PUFF INHALER INH SCH (06:56)
[2018-05-24 07:27] VITALS: BP 150/79; TEMP 98.3
[2018-05-24] MEDS ORDERED: Potassium Chloride 10 MEQ TAB PO SCH (08:00)
[2018-05-24] MEDS: guaiFENesin ER 600 MG TAB PO SCH (09:06)
[2018-05-24] MEDS: Famotidine 20 MG TAB PO SCH (09:06)
[2018-05-24] MEDS: Gabapentin 400 MG CAP PO SCH ×2 (09:06→11:02)
[2018-05-24] MEDS: FLUoxetine HCl 20 MG CAP PO SCH (09:06)
[2018-05-24] MEDS: Amlodipine 10 MG TAB PO SCH (09:07)
[2018-05-24] MEDS: Enoxaparin Sodium 40 MG/0.4 ML SYRINGE SC SCH (09:07)
[2018-05-24] MEDS: HYDROcodone/Acetaminophen 5/325 mg Tablet PO PRN ×2 (11:43)
[2018-05-24] MEDS: Saccharomyces boulardii 250 MG CAP PO SCH (14:07)
--- NOTE | 2018-05-25 11:08 | PQF ---
JOSÉ GAN MALIK MD [id number] [facility]- B08 [id number] CLINICAL DOCUMENTATION CLARIFICATION FORM: POST DISCHARGE DATE: 05/24/2018 ATTN: Dr. Cabrales Please exercise your independent, professional judgment in responding to the clarification form. Clinical indicators are provided on the bottom of this form for your review Please check appropriate box(s) to clarify if the following diagnosis has been ruled in or ruled out: Sepsis [ ] Ruled in diagnosis (please specify cause) [ ] Continue to treat [ ] Resolved [ ] Ruled out diagnosis [ ] Cannot rule out diagnosis [ ] Other diagnosis (please specify) [ ] Unable to determine In addition, please specify: Present on Admission (POA): [ ] Yes [ ] No [ ] Unable to determine For continuity of documentation, please document condition throughout progress notes and discharge summary. Thank You. CLINICAL INDICATORS - SIGNS / SYMPTOMS / LABS Per H&P: Sepsis secondary to healthcare associated pneumonia. Sepsis most likely due to urinary tract infection (no mention of sepsis after H&P). Per ED record: Fever--ranging from 101.5 to 105.6). Tachycardia. Sepsis. RISK FACTORS (per progress notes) Aspiration pneumonia. Escherichia coli urinary tract infection. TREATMENTS Per H&P: IV Vancomycin. IV Aztreonam. IV fluids. (This form is maintained as a part of the permanent medical record) 2014 [employer]. All Rights Reserved Summer [phone] I never saw this patient - Keron OLIVERA
--- NOTE | 2018-05-27 10:58 | EKG ---
Test Reason : Blood Pressure : / mmHG Vent. Rate : 107 BPM Atrial Rate : 107 BPM P-R Int : 162 ms QRS Dur : 106 ms QT Int : 356 ms P-R-T Axes : 069 -61 095 degrees QTc Int : 475 ms Sinus tachycardia with Premature atrial complexes Possible Left atrial enlargement Left axis deviation Incomplete left bundle branch block T wave abnormality, consider lateral ischemia Abnormal ECG Confirmed by JC REZA DO ([id number]), editorial director WALDO PYLE ([id number]) on 05/27/2018 10:57:41 AM Referred By: Confirmed By:JC REZA DO
--- NOTE | 2018-06-05 07:59 | PQF ---
JOSÉ GAN CASS PRICE [id number] [facility]- B08 [id number] CLINICAL DOCUMENTATION CLARIFICATION FORM: POST DISCHARGE DATE: 06/05/2018 ATTN: Dr. Price Please exercise your independent, professional judgment in responding to the clarification form. Clinical indicators are provided on the bottom of this form for your review Please check appropriate box(s) to clarify if the following diagnosis has been ruled in or ruled out: Sepsis [ ] Ruled in diagnosis [ ] Continue to treat [ ] Resolved [ ] Ruled out diagnosis [ ] Cannot rule out diagnosis [ ] Other diagnosis (please specify) [ ] Unable to determine In addition, please specify: Present on Admission (POA): [ ] Yes [ ] No [ ] Unable to determine For continuity of documentation, please document condition throughout progress notes and discharge summary. Thank You. CLINICAL INDICATORS - SIGNS / SYMPTOMS / LABS Per H&P: Sepsis secondary to healthcare associated pneumonia. Sepsis most likely due to urinary tract infection (no mention of sepsis after H&P). Per ED record: Fever--ranging from 101.5 to 105.6. Tachycardia. Sepsis. RISK FACTORS (per progress notes) Aspiration pneumonia. Escherichia coli urinary tract infection. TREATMENTS Per H&P: IV Vancomycin. IV Aztreonam. IV fluids. (This form is maintained as a part of the permanent medical record) 2014 [employer]. All Rights Reserved Summer [email or web address] [phone] MTDIra
== END 2018-05-24 16:50 | disposition home or self-care (01) | DRG 177 ==
LOC: ERS 02:52 → IMCU/EMU 05:33 → T4-B 05-18 21:38
PROVIDERS: ADMIT Internal Medicine; ATTEND Internal Medicine
PROC: 5A09357 Assistance with Respiratory Ventilation, Less than 24 Consecutive Hours, Continuous Positive Airway Pressure (ICD-10-PCS; principal; 2018-05-17)
DX: J69.0 Pneumonitis due to inhalation of food and vomit (principal); J96.01 Acute respiratory failure with hypoxia; N39.0 Urinary tract infection, site not specified; Y95 Nosocomial condition; I12.9 Hypertensive chronic kidney disease with stage 1 through stage 4 chronic kidney disease, or unspecified chronic kidney disease; N18.3 Chronic kidney disease, stage 3 (moderate); E03.9 Hypothyroidism, unspecified; B96.20 Unspecified Escherichia coli [E. coli] as the cause of diseases classified elsewhere; I48.2 Chronic atrial fibrillation; K21.9 Gastro-esophageal reflux disease without esophagitis; F41.9 Anxiety disorder, unspecified; F32.9 Major depressive disorder, single episode, unspecified; J39.8 Other specified diseases of upper respiratory tract; M19.90 Unspecified osteoarthritis, unspecified site; R41.0 Disorientation, unspecified; E87.6 Hypokalemia; Z74.01 Bed confinement status; Z66 Do not resuscitate; Z16.24 Resistance to multiple antibiotics; Z88.1 Allergy status to other antibiotic agents; Z88.5 Allergy status to narcotic agent; Z88.0 Allergy status to penicillin; Z88.2 Allergy status to sulfonamides; Z88.8 Allergy status to other drugs, medicaments and biological substances; Z79.899 Other long term (current) drug therapy
CPT/HCPCS: 36415; 51702; 71045; 71250; 74230; 80048; 80053; 80202; 81001; 82553; 82805; 83605; 83735; 84484; 85025; 85652; 86140; 87040; 87077; 87086; 87186; 87324; 87449; 93005; 93010; 94640; 94660; 94667; 94668; 96361; 96365; 96375; A4216; G8978-GP-CM; G8979-GP-CM; G8996-GN-CJ; G8997-GN-CJ; J0692; J1650; J2405; J3370; J3490; J7050; J7620; J7626; S0028

== ENCOUNTER 2018-08-02 02:26 | Observation (INO) | payer MEDICARE, OTHER ==
[2018-08-02 03:12] LABS: Bacteria/HPF None Seen HPF (None Seen); Bilirubin Negative (Negative); Blood, Urine Negative (Negative); Clarity CLEAR (Clear); Glucose, Urine (Dipstick) Negative (Negative); Hyaline Casts/LPF 0-3 HYALINE CAST LPF (0-3 Hyaline); Leukocyte Trace (Negative); Nitrite Negative (Negative); Protein, Urine (Dipstick) Negative (Neg-Trace); RBC/HPF 0-3 HPF (0-3); Specific Gravity, Urine 1.007 (1.002-1.036); Squamous Epithelial None Seen HPF (0-3); Urobilinogen 0.2 mg/dL (0.2-1.0); WBC/HPF None Seen HPF (0-3); pH, Urine 6.5 (5.0-9.0)
[2018-08-02 03:25] LABS: #Basophils 0.1 thou/uL (0.0-0.2); #Eosinphils 0.5 thou/uL (0.0-0.7); #Lymphocytes 1.5 thou/uL (1.20-3.40); #Monocytes 0.6 thou/uL (0.11-0.59); #Neutrophils 7.8 thou/uL (1.40-6.50); %Basophils 0.6 % (0.0-1.0); %Eosinophils 4.5 % (0.0-10.0); %Lymphocytes 14.6 % (21.0-51.0); %Monocytes 6.1 % (0.0-10.0); %Neutrophils 74.2 % (42.0-75.0); Hemoglobin 11.1 g/dL (12.0-16.0); Mean Corpuscular HGB CONC 33.3 g/dL (32.0-36.0); Mean Platelet Volume 7.4 fL (7.4-10.4); Platelet Count 248 thou/uL (130-400); RBC Distribution Width 12.8 % (11.5-14.5); Red Blood Cell (RBC) Count 3.69 mill/uL (4.20-5.40); White Blood Cell (WBC) Count 10.5 thou/uL (4.8-10.8)
[2018-08-02 03:45] LABS: ALT (SGPT) 22 U/L (8-55); AST (SGOT) 20 U/L (5-34); Albumin 3.7 g/dL (3.4-4.8); Alkaline Phosphatase 127 U/L (40-150); Anion Gap 14 mmol/L (10-20); BUN (Urea Nitrogen) 18 mg/dL (9.8-20.1); Bilirubin, Total 0.4 mg/dL (0.2-1.2); Calc. Creatinine Clearance 0 mL/min (70-130); Carbon Dioxide 25 mmol/L (23-31); Chloride 95 mmol/L (98-107); Estimated GFR-MDRD 47; Globulin 3.3 g/dL (2.4-3.5); Glucose 97 mg/dL (83-110); Potassium 4.8 mmol/L (3.5-5.1); Sodium 129 mmol/L (136-145)
[2018-08-02 04:39] LABS: CKMB 0.9 ng/mL (0-6.6); Troponin I Less than 0.010 ng/mL (< 0.028)
--- NOTE | 2018-08-02 08:50 | RAD ---
AP VIEW CHEST: HISTORY: Weakness and fever. FINDINGS: AP view chest was obtained on 08/02/2018. Comparison is made to the previous exam from 05/17/2018. AP view chest demonstrates calcification of the aorta. Areas of linear density seen in both lung bas es compatible with bibasilar atelectasis or patchy pneumonia or scar. Findings similar to exam from 05/17/2018. No evidence of pneumothorax seen. No definite evidence of pleural effusion seen. 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 IMPRESSION: Bibasilar atelectasis or patchy pneumonia. Correlate with followup radiographs. POS: [facility]
[2018-08-02] MEDS ORDERED: PROVENTIL INHALER 6.7 G (200 INHALATIONS) INH PRN (11:09)
[2018-08-02] MEDS ORDERED: Ondansetron ODT 4 MG TAB PO PRN (11:09)
[2018-08-02] MEDS ORDERED: Ondansetron PF 4 MG/2 ML Vial IVP PRN (11:09)
[2018-08-02] MEDS ORDERED: HYDROcodone/Acetaminophen 10/325 mg Tablet PO PRN (11:09)
[2018-08-02] MEDS ORDERED: Acetaminophen 500 MG TAB PO PRN (11:09)
--- NOTE | 2018-08-02 11:31 | HP ---
DATE OF ADMISSION: 08/02/2018 PRIMARY CARE PHYSICIAN: Dr. Deepak Ricardo. CHIEF COMPLAINT: General weakness and fever. HISTORY OF PRESENT ILLNESS: This is a 78-year-old female who was recently admitted to [facility] between 05/17/2018 to 05/24/2018 after diagnosis of pneumonia, placed o n IV cefepime for 2 weeks followed by inhaled tobramycin. The patient was sent to [facility] convalescence and general physical therapy and returned back to her home in the [facility]. The patient states she has been doing fairly well at home and is typically assisted with all activi ties of daily living as well as self care and meals. The patient has been nonambulatory chronically, but otherwise has been maintaining her chronic medication regimen without difficulty. The patient d oes state that she underwent a tooth extraction approximately 48 hours prior to this evaluation with some increased bleeding of the extraction site. The patient noted a fever, generalized weakness and decreased responsiveness according to the sister, who provided most of the history at this interview. No specific family members with similar illnesses. The patient has received all vaccinations inclu ding influenza for this season. The patient denies any increased cough, congestion, or shortness of breath beyond her chronic lung conditions including tracheobronchomalacia and recurrent pneumonia. T he patient states she was not placed on any antibiotic therapy and not given any specific oral instru ctions regarding her tooth extraction. In the emergency room, the patient underwent general evaluati on with screening metabolic survey showing a mild hyponatremia and CBC showed no evidence of leukocyt osis. The patient was noted with a temperature of 99.5 degrees Fahrenheit. PAST MEDICAL HISTORY: 1. Recurrent pneumonia with recent course of IV cefepime and inhaled tobramycin. 2. Tracheobronchomalacia, chronic. 3. History of Escherichia coli urinary colonization. 4. Chronic nonambulatory status. 5. History of Clostridium difficile infection. 6. History of atrial fibrillation. 7. Hypertension. 8. Hypothyroidism. 9. Hyperlipidemia. PAST SURGICAL HISTORY: 1. Status post appendectomy. 2. Status post hysterectomy. 3. Status post cholecystectomy. CURRENT MEDICATIONS: 1. Albuterol sulfate 2 puffs inhaled q.4 hours p.r.n. 2. Alprazolam 0.25 mg p.o. at bedtime. 3. Amlodipine 10 mg p.o. daily. 4. Vitamin C 500 mg p.o. daily. 5. Lipitor 10 mg p.o. at bedtime. 6. Pulmicort nebulized solution 0.5 mg nebulized b.i.d. 7. Vitamin D3 2000 units p.o. daily. 8. Nexium 40 mg p.o. q.a.m. 9. Fluoxetine 20 mg p.o. daily. 10. Lasix 40 mg p.o. daily. 11. Gabapentin 1600 mg p.o. b.i.d. and 800 mg p.o. at noon. 12. Mucinex 600 mg p.o. b.i.d. 13. [place] 10/325 mg 1 tab p.o. q.4 hours p.r.n. pain. 14. DuoNeb 3 mL nebulized q.6 hours p.r.n. 15. Synthroid 125 mcg p.o. daily. 16. Meloxicam 15 mg p.o. daily. 17. Dulera 200/5 mcg 2 puffs inhaled b.i.d. 18. Multivitamin 1 tab p.o. daily. 19. Klor-Con 10 mEq p.o. daily. 20. Florastor 250 mg p.o. daily. 21. Detrol-LA 4 mg p.o. daily. 22. Diovan 320 mg p.o. daily. 23. Zantac 150 mg p.o. at bedtime. ALLERGIES: PENICILLINS, BACTRIM, QUINOLONES, CLINDAMYCIN, ERYTHROMYCIN, FENTANYL, LATEX, METOLAZONE, NALBUPHINE, OXYCONTIN. FAMILY HISTORY: No inheritable diseases per patient report. SOCIAL HISTORY: The patient resides in the [facility] area. and accompanied by h er sister in the emergency room. No current alcohol, tobacco or illicit drug use. Chronic nonambula tory status. REVIEW OF SYSTEMS: The following complete review of systems was negative, unless otherwise mentioned in the HPI or below: Constitutional: Weight loss or gain, ability to conduct usual activities. Skin: Rash, itching. Eyes: Double vision, pain. ENT/Mouth: Nose bleeding, neck stiffness, pain, tenderness. Cardiovascular: Palpitations, dyspnea on exertion, orthopnea. Respiratory: Shortness of breath, wheezing, cough, hemoptysis, fever or night sweats. Gastrointestinal: Poor appetite, abdominal pain, heartburn, nausea, vomiting, constipation, or diarr hea. Genitourinary: Urgency, frequency, dysuria, nocturia. Musculoskeletal: Pain, swelling. Neurologic/Psychiatric: Anxiety, depression. Allergy/Immunologic: Skin rash, bleeding tendency. PHYSICAL EXAMINATION: VITAL SIGNS: On admission, blood pressure 128/57, pulse 68, respiratory rate 19, temperature 98.6 de grees Fahrenheit, T-max of 99.5 degrees Fahrenheit, O2 saturation 94% on room air. GENERAL APPEARANCE: This is a 78-year-old female, alert and responsive to questioning, in no acute distress. HEENT: Pupils are equal, round, and reactive to light and accommodation. Extraocular muscles are in tact. Nares patent. OP with dried blood on the glossal and hard palate with evidence of prior tooth extraction of the left lower jaw and third molar region. Multiple areas of periodontal disease and dental caries. Pooling blood noted in the buccal mucosa. NECK: Supple, no cervical adenopathy, no thyromegaly, no carotid bruits, no JVD noted. Cervical spi ne with full active and passive range of motion. No meningeal signs appreciated. CHEST: Lungs are clear to auscultation bilaterally. CARDIOVASCULAR: S1, S2, without noted murmur, rub or gallop. ABDOMEN: Obese, soft, nontender, nondistended. Bowel sounds are positive in all four quadrants. Th ere is no hepatosplenomegaly, no abdominal bruits, no rebound or guarding appreciated. EXTREMITIES: Warm and dry with fair turgor. No clubbing, cyanosis or asymmetric edema appreciated. Pulses palpable distally at the dorsalis pedis, posterior tibial, and popliteal arteries bilaterally . Capillary refill less than 2 seconds. NEUROLOGIC: Cranial nerves II through XII are grossly intact. No focal or lateralizing signs apprec iated. Chronic nonambulatory status. PERTINENT LABORATORY DATA AND X-RAY FINDINGS: Sodium 129, potassium 4.8, chloride 95, CO2 of 25, BUN 18, creatinine 1.12, estimated GFR 47, glucose 97. Lactic acid level 1.2, calcium 9.0. LFTs within normal limits. BNP 84, troponin I less than 0.010. Albumin 3.7. CBC showed a white blood cell cou nt of 10.5, hemoglobin 11, hematocrit 33, platelet count 248 with 74% neutrophils. Urinalysis showed trace leukocyte esterase. Portable chest x-ray dated 08/02/2018 showed bibasilar atelectasis. ASSESSMENT AND PLAN: 1. Febrile episode. The patient will be placed on medical observation. Suspect secondarily to rece nt tooth extraction. We will continue general supportive management. Tylenol p.r.n. fever. 2. Status post tooth extraction. Suspect culprit of patient's febrile episode. Keflex 250 mg p.o. q.i.d. Peridex oral rinse t.i.d. Consider dental evaluation if no clinical improvement in the next 24 hours. 3. Generalized weakness. Suspect secondary to #1. General supportive management. IV fluids. 4. Hyponatremia, mild. Continue intravenous normal saline and repeat sodium level in the a.m. 5. Deconditioning, chronic. Patient with chronic nonambulatory status. Continue supportive managem ent. 6. Hypertension. Resume home antihypertensive regimen and monitor serial blood pressures. 7. Prophylaxis. Sequential compression devices while in bed. Pepcid 20 mg p.o. b.i.d. 8. Code status is FULL. Surrogate medical decision maker is patient's spouse.
[2018-08-02] MEDS ORDERED: Chlorhexidine Gluconate 15 ML UDCUP SSP SCH (12:30)
[2018-08-02] MEDS ORDERED: Cephalexin 250 MG/5 ML Oral Suspension PO SCH ×2 (13:00→17:00)
[2018-08-02] MEDS ORDERED: Saccharomyces boulardii 250 MG CAP PO SCH (14:00)
[2018-08-02] MEDS: Sodium Chloride 0.9% 1,000 ML IV SCH (15:50)
[2018-08-02] MEDS: Chlorhexidine Gluconate 15 ML UDCUP SSP SCH ×2 (15:54→22:02)
[2018-08-02] MEDS ORDERED: Cephalexin 250 MG CAP PO SCH (17:00)
[2018-08-02] MEDS: Gabapentin 400 MG CAP PO SCH (18:39)
[2018-08-02 19:50] VITALS: BMI 28.2
[2018-08-02] MEDS: TROSPIUM 20 MG TABLET PO SCH (20:20)
[2018-08-02] MEDS: guaiFENesin ER 600 MG TAB PO SCH (20:20)
[2018-08-02] MEDS: Famotidine 20 MG TAB PO SCH (20:20)
[2018-08-02] MEDS: Cephalexin 250 MG/5 ML Oral Suspension PO SCH (20:30)
[2018-08-02] MEDS ORDERED: ALPRAZolam 0.25 MG TAB PO SCH (21:00)
[2018-08-02] MEDS: Mometasone/Formoterol 120 PUFF INHALER INH SCH (23:55)
[2018-08-02] MEDS: Budesonide 0.5 MG/2 ML NEB NEB SCH (23:55)
[2018-08-03] MEDS: Sodium Chloride 0.9% 1,000 ML IV SCH ×2 (04:58→15:35)
[2018-08-03 05:30] LABS: Anion Gap 12 mmol/L (10-20); BUN (Urea Nitrogen) 13 mg/dL (9.8-20.1); Calc. Creatinine Clearance 63 mL/min (70-130); Calcium 8.7 mg/dL (7.8-10.44); Carbon Dioxide 25 mmol/L (23-31); Chloride 103 mmol/L (98-107); Estimated GFR-MDRD 61; Glucose 96 mg/dL (83-110); Sodium 136 mmol/L (136-145)
[2018-08-03 05:33] LABS: Band 9 % (5-11); Eosinophils 6 % (0-10); Hemoglobin 10.1 g/dL (12.0-16.0); Lymphocytes 23 % (21-51); MDiff Complete? YES; Mean Corpuscular HGB CONC 32.3 g/dL (32.0-36.0); Mean Corpuscular Hemoglobin 28.9 pg (27.0-31.0); Mean Corpuscular Volume 89.5 fL (78.0-98.0); Monocytes 8 % (0-10); Neutrophil 54 % (42-75); Platelet Count 235 thou/uL (130-400); RBC Distribution Width 12.9 % (11.5-14.5); Red Blood Cell (RBC) Count 3.51 mill/uL (4.20-5.40); White Blood Cell (WBC) Count 5.9 thou/uL (4.8-10.8)
[2018-08-03] MEDS ORDERED: Levothyroxine Sodium 125 MCG TAB PO SCH (06:00)
[2018-08-03] MEDS: Budesonide 0.5 MG/2 ML NEB NEB SCH (06:53)
[2018-08-03] MEDS: Mometasone/Formoterol 120 PUFF INHALER INH SCH (06:56)
[2018-08-03 07:28] VITALS: BP 162/84; TEMP 98
[2018-08-03] MEDS: Gabapentin 400 MG CAP PO SCH (08:15)
[2018-08-03] MEDS: guaiFENesin ER 600 MG TAB PO SCH (08:15)
[2018-08-03] MEDS: Famotidine 20 MG TAB PO SCH (08:15)
[2018-08-03] MEDS: Cephalexin 250 MG/5 ML Oral Suspension PO SCH ×2 (08:16→13:19)
[2018-08-03] MEDS: Chlorhexidine Gluconate 15 ML UDCUP SSP SCH ×2 (08:16→15:35)
[2018-08-03] MEDS: TROSPIUM 20 MG TABLET PO SCH (08:29)
[2018-08-03] MEDS ORDERED: Multivitamin W/ Minerals 1 TAB PO SCH (09:00)
[2018-08-03] MEDS ORDERED: Amlodipine 10 MG TAB PO SCH (09:00)
[2018-08-03] MEDS ORDERED: FLUoxetine HCl 20 MG CAP PO SCH (09:00)
[2018-08-03] MEDS ORDERED: Saccharomyces boulardii 250 MG CAP PO SCH (09:00)
[2018-08-03] MEDS ORDERED: Gabapentin 400 MG CAP PO SCH (12:00)
--- NOTE | 2018-08-04 05:42 | DIS ---
DATE OF ADMISSION: 08/02/2018 DATE OF DISCHARGE: 08/03/2018 MATHEMATICAL STATISTICIAN: None. PRIMARY CARE PHYSICIAN: Deepak Ricardo M.D. PROCEDURES: Chest x-ray was performed in the ER and showed bibasilar atelectasis. DISCHARGE DIAGNOSES: Dental infection, hypertension, hyperthyroidism, asthmatic bronchitis. REVIEW OF SYSTEMS: Constitutional: The patient denies any fever or chills today. Denies any weakne ss. Eyes: Denies any vision changes or eye pain. ENT: Denies any sore throat or any dysphagia. C ardiovascular: The patient denies any chest pain, palpitations, shortness of breath. Respiratory: Denies any cough, any stridor or any wheezing. Gastrointestinal: Denies any abdominal pain. No gabriel sea, vomiting or diarrhea. Genitourinary: Female. Denies any dysuria or hematuria. Musculoskeleta l: Denies any muscle spasms or any myalgias. Skin: Denies any skin changes. No rashes. Neurologi c: Denies any focal weakness, numbness, or tingling. All other systems were reviewed and are negati ve. PHYSICAL EXAMINATION: CONSTITUTIONAL: The patient is alert and oriented to person, place and time. VITAL SIGNS: Temperature is 98, pulse is 101, respirations are 18, O2 sat 92 on room air, blood pres sure 162/84. HOSPITAL COURSE: This is a 78-year-old female recently admitted to [facility] in May after a diagnosis of pneumonia and was placed on IV cefepime for 2 weeks followe d by inhaled tobramycin. She was sent to [facility] for convalescence and general physical therapy an d returned back to her home recently. The patient states she has been doing well at home and assiste d with all activities by her and they performed self-care and meals. She is nonambulatory ch ronically, but otherwise maintaining her normal medication regimen without difficulty. The patient s tates that she underwent a tooth extraction approximately 48 prior to her arrival and noticed an incr eased bleeding. The patient has been noted to have fever, some generalized weakness and decreased re sponsiveness and brought her to the ER for this reason. The patient states that she was not placed o n any antibiotic therapy after the tooth extraction, it was not given any specific oral instructions after the tooth was extracted. In the ER, the patient was noted to have a temperature of 99.5, this has remained the case. Highest temperature while she has been hospitalized has been 99. She denies any fevers on exam today. Reports that she is feeling well and is anxious to return home. Keflex 25 0 mg q.i.d. was started yesterday and she is tolerating that well. HOME MEDICATIONS: Albuterol 2 puffs inhaled q.4 hours p.r.n., alprazolam 0.25 mg p.o. at bedtime, am lodipine 10 mg p.o. daily, vitamin C p.o. daily, Lipitor 10 mg p.o. at bedtime, Pulmicort nebulized s olution 0.5 b.i.d., vitamin D3 of 2000 units p.o. daily, Nexium 40 mg p.o. q.a.m., fluoxetine 20 mg p .o. daily, Lasix 40 mg p.o. daily, gabapentin 1600 mg p.o. b.i.d. and 800 mg p.o. at noon, Mucinex 60 0 mg p.o. b.i.d., Dale 10/325 one tab p.o. q.4 hours p.r.n. pain, DuoNeb q.6 hours p.r.n., Synthroid 125 mcg p.o. daily, meloxicam 15 mg p.o. daily, Dulera 25 mcg 2 puffs inhaled b.i.d., multivitamin p .o. daily, Klor-Con 10 mEq p.o. daily, Florastor 250 mg p.o. daily, Detrol-LA 4 mg p.o. daily, Diovan 320 mg p.o. daily, Zantac 150 mg at bedtime, Keflex 250 p.o. q.i.d. was added to her home medication and she will take that for 9 days. ALLERGIES: The patient is allergic to AMOXICILLIN, CIPRO and CLINDAMYCIN. She is also allergic to B ACTRIM, ERYTHROMYCIN, FENTANYL, LATEX, dobutamine, OxyContin, metolazone. The patient's condition is stable on discharge. The patient will be discharged home with her referral. She will need to follow up with her primary care Dr. Ricardo within the next week and refe r back to her dentist within the next week as well.
--- NOTE | 2018-08-05 14:10 | EKG ---
Test Reason : WEAKNESS Blood Pressure : / mmHG Vent. Rate : 085 BPM Atrial Rate : 085 BPM P-R Int : 176 ms QRS Dur : 108 ms QT Int : 378 ms P-R-T Axes : 019 -44 061 degrees QTc Int : 449 ms Normal sinus rhythm Left axis deviation Anterolateral infarct , age undetermined Abnormal ECG Confirmed by TYRONE LARSON D.O. ([id number]), movie editor WALDO PYLE ([id number]) on 08/05/2018 2:10:22 PM Referred By: Confirmed By:TYRONE LARSON D.O.
== END 2018-08-03 16:55 | disposition home or self-care (01) ==
LOC: ERS 02:26 → ERHOLD 05:04 → T4-B 15:19
PROVIDERS: ADMIT Internal Medicine; ATTEND Internal Medicine
DX: K04.7 Periapical abscess without sinus (principal); I10 Essential (primary) hypertension; E05.90 Thyrotoxicosis, unspecified without thyrotoxic crisis or storm; J45.909 Unspecified asthma, uncomplicated; Z79.899 Other long term (current) drug therapy; Z88.0 Allergy status to penicillin; Z91.040 Latex allergy status
CPT/HCPCS: 51701; 71045; 80048; 80053; 82553; 83605; 83880; 84484; 85007; 85025; 85027; 87040; 87804 ×2; 93005; 94640 ×2; 94760; 96361 ×2; 99285; G0378 ×2; 36415; 81003; 81015; A4353; J2405; J7626

== ENCOUNTER 2018-09-19 12:16 | Inpatient (IN) | payer MEDICARE, OTHER ==
[2018-09-19 12:54] LABS: Hemoglobin 12.5 g/dL (12.0-16.0); Mean Corpuscular HGB CONC 32.8 g/dL (32.0-36.0); Mean Corpuscular Volume 88.5 fL (78.0-98.0); Platelet Count 298 thou/uL (130-400); RBC Distribution Width 12.4 % (11.5-14.5); Red Blood Cell (RBC) Count 4.33 mill/uL (4.20-5.40); White Blood Cell (WBC) Count 23.3 thou/uL (4.8-10.8)
[2018-09-19] MEDS ORDERED: Acetaminophen 500 MG TAB ONE (13:08)
[2018-09-19 13:11] LABS: Bilirubin Negative (Negative); Blood, Urine Negative (Negative); Clarity CLEAR (Clear); Glucose, Urine (Dipstick) Negative (Negative); Leukocyte Negative (Negative); Nitrite Negative (Negative); Protein, Urine (Dipstick) Negative (Neg-Trace); Specific Gravity, Urine 1.008 (1.002-1.036); Urobilinogen 0.2 mg/dL (0.2-1.0); pH, Urine 6.5 (5.0-9.0)
[2018-09-19 13:11] LABS: Band 1 % (5-11); Eosinophils 1 % (0-10); Lymphocytes 13 % (21-51); MDiff Complete? YES; Monocytes 9 % (0-10); Neutrophil 73 % (42-75); RBC Morphology Normal; Reactive Lymphocytes 3 % (0-10)
[2018-09-19 13:14] LABS: ALT (SGPT) 16 U/L (8-55); AST (SGOT) 15 U/L (5-34); Albumin 3.8 g/dL (3.4-4.8); Alkaline Phosphatase 148 U/L (40-150); Anion Gap 15 mmol/L (10-20); BUN (Urea Nitrogen) 29 mg/dL (9.8-20.1); Bilirubin, Total 0.5 mg/dL (0.2-1.2); Calc. Creatinine Clearance 0 mL/min (70-130); Calcium 9.1 mg/dL (7.8-10.44); Carbon Dioxide 25 mmol/L (23-31); Chloride 95 mmol/L (98-107); Estimated GFR-MDRD 36; Globulin 3.6 g/dL (2.4-3.5); Glucose 95 mg/dL (83-110); Potassium 4.1 mmol/L (3.5-5.1); Protein, Total 7.4 g/dL (6.0-8.3); Sodium 131 mmol/L (136-145)
--- NOTE | 2018-09-19 13:19 | RAD ---
RADIOGRAPH CHEST 1 VIEW: Date: 09/19/2018 Time: 11:47 a.m. HISTORY: A 78-year-old female with hypoxemia. COMPARISON: 08/02/2018 FINDINGS: Again, the lungs are hypoinflated. Mild, small pulmonary densities at the right posterior medial bas e and at the left base appear similar to or slightly improved from the prior study. Those probably r epresent subsegmental atelectasis. No pulmonary edema. The lung apices are clear. No pneumothorax. No major interval change. IMPRESSION: 1. Hypoinflated lungs. 2. Mild nonspecific pulmonary densities at the bilateral lung bases, left greater than right, incomp letely visualized on single frontal view. 3. No major interval change since 08/02/2018. TOMMY [] POS: [facility]
[2018-09-19] MEDS ORDERED: Cefepime 2 GM VIAL ONE (16:02)
--- NOTE | 2018-09-19 16:47 | CT ---
CT OF THE CHEST WITHOUT CONTRAST: Date; 09/19/18 COMPARISON: 05/17/18. HISTORY: Altered mental status. Fever and cough. TECHNIQUE: Multiple contiguous axial images were obtained in a CT of the chest without contrast. Coronal reforma ts were performed. FINDINGS: Atelectasis is seen in both lung bases. Scarring is seen in the right apex. No acute infiltrates are appreciated. A calcified granuloma is seen on image 26 of 56 in the right lower lobe. No suspicious p ulmonary nodules are seen. No pneumothorax or pleural effusions are seen. The heart is upper limits of normal in size. Calcifications are seen in the coronary arteries. No hil ar or mediastinal lymphadenopathy are appreciated on this noncontrast examination. The patient is status post cholecystectomy. The visualized subdiaphragmatic structures are otherwise unremarkable. The chest wall soft tissues are unremarkable. Degenerative changes are seen in the spin e. IMPRESSION: No evidence of acute intrathoracic abnormality. POS: [facility]
[2018-09-19] MEDS ORDERED: Ondansetron PF 4 MG/2 ML Vial IVP PRN (22:04)
[2018-09-19] MEDS ORDERED: Sodium Chloride 0.9% 1,000 ML IV SCH (22:04)
[2018-09-19 22:09] VITALS: BMI 31.1
[2018-09-19] MEDS ORDERED: Heparin 5,000 UNITS/ML VIAL SC SCH (22:15)
[2018-09-19] MEDS ORDERED: diphenhydrAMINE 25 MG CAP PO SCH (23:30)
[2018-09-19] MEDS ORDERED: ALPRAZolam 0.25 MG TAB PO SCH (23:30)
--- NOTE | 2018-09-19 23:57 | HP ---
CHIEF COMPLAINTS: Shortness of breath and cough. HISTORY OF PRESENT ILLNESS: Most information is obtained from the daughter, who is in the room during my visit. The patient is quite comatose and she is quite difficult to arouse. Apparently, she was having some altered mental status last night. She had the chronic recurrent pulmonary problem. She has been treated in this hospital multiple times with recurrent pneumonia and tracheobronchomalacia. Her PCP is Dr. Deepak Ricardo. Her surrogate decision maker is Norris Santizo, her . Apparently, when she was evaluated in the emergency room, her temperature was up to 101.1. She did not have any chills. She had some UTI, which was recently treated. Her white count is elevated to 23,000 and decision was made about readmission to the hospital. PAST MEDICAL HISTORY: Positive for; 1. Recurrent pneumonia with multiple admissions. 2. Tracheobronchomalacia, chronic. 3. History of E coli, urinary tract colonization. 4. Chronic nonambulatory status. 5. History of Clostridium difficile infection. 6. History of atrial fibrillation. 7. Hypertension. 8. Hypothyroidism. 9. Hyperlipidemia. PAST SURGICAL HISTORY: 1. Appendectomy. 2. Hysterectomy. 3. Cholecystectomy. CURRENT MEDICATIONS: Please refer to medication list. ALLERGIES: BACTRIM. SHE HAS MULTIPLE OTHER MEDICATIONS LISTED ALLERGIES, BUT ACCORDING TO THE FAMILY, THAT ARE NOT TRUE ALLERGIES, ONLY THE BACTRIM IS THE TRUE ONE. FAMILY HISTORY: Noncontributory. SOCIAL HISTORY: She lives with her . She does not have any history of alcohol intake, cigarette smoking, or illicit drug use. REVIEW OF SYSTEMS: Very limited information since the patient is not able to answer my questions and the main information is from the daughter and the medical records. PHYSICAL EXAMINATION: VITAL SIGNS: Her blood pressure is 134/75, pulse is 105, her temperature was 101.1, and respiratory rate is approximately 26 to 28. GENERAL: She is comatose, arousable with deep stimuli. HEENT: Head is atraumatic and normocephalic. Her conjunctiva is somewhat palish. Oral mucosa is somewhat dry. NECK: Supple. LUNGS: Crackles present at both bases. No wheezing. HEART: S1 and S2. Tachycardic. No S3. No S4. ABDOMEN: Soft, nondistended, nontender. EXTREMITIES: 1 to 2+ nonpitting peripheral edema, similar bilaterally. Pulses diminished on both tibialis posterior and dorsalis pedis arteries, similar bilaterally. NEUROLOGICAL: Postponed since she is not able to follow my commands at all. She is barely arousable from her comatose state. LABORATORY DATA: Labs showed white count of 23.3 with 73% of neutrophils. The rest of CBC is within normal limits. Sodium of 131, potassium 4.1, chloride 95, CO2 of 25, BUN 29, creatinine 1.41, BNP 102, and globulin 3.6. UA within normal limits. Chest x-ray was done, it showed mild nonspecific pulmonary densities at both bases. The CT of the chest without contrast shows some changes in the left lower lobe. IMPRESSION: 1. Fever with shortness of breath and cough, and left lower lobe infiltrate suggestive of some pneumonia. 2. Left lower lobe pneumonia. 3. Hyponatremia. 4. Chronic deconditioning. 5. Renal insufficiency, chronic. 6. Hypertension. 7. History of recurrent pneumonia. 8. History of Clostridium difficile infection. 9. History of atrial fibrillation. 10. Hypertension. 11. Hypothyroidism. 12. Hyperlipidemia. 13. Do not resuscitate status. PLAN: Full admission. Condition is guarded. DNR status. IV normal saline at 50 mL/h. The patient is going to continue on albuterol and Atrovent q.4 hours. She will be started on cefepime 1 g every 12 IV piggyback. We will do CBC and BMP tomorrow morning. We will have DVT prophylaxis with SCDs and heparin subcutaneously 5000 units 3 times a day. She is a DNR patient. Blood cultures will be done. Job ID: [id number]
[2018-09-20] MEDS: Cefepime 1 GM in Sodium Chloride 0.9% 100 ML IVPB SCH ×2 (03:48→16:40)
[2018-09-20 05:32] LABS: #Basophils 0.1 thou/uL (0.0-0.2); #Eosinphils 0.9 thou/uL (0.0-0.7); #Monocytes 1.3 thou/uL (0.11-0.59); #Neutrophils 9.3 thou/uL (1.40-6.50); %Basophils 0.5 % (0.0-1.0); %Eosinophils 6.3 % (0.0-10.0); %Lymphocytes 14.9 % (21.0-51.0); %Monocytes 9.5 % (0.0-10.0); %Neutrophils 68.8 % (42.0-75.0); Hemoglobin 10.9 g/dL (12.0-16.0); Mean Corpuscular Hemoglobin 28.7 pg (27.0-31.0); Mean Corpuscular Volume 89.7 fL (78.0-98.0); Mean Platelet Volume 7.1 fL (7.4-10.4); Platelet Count 264 thou/uL (130-400); RBC Distribution Width 12.4 % (11.5-14.5); White Blood Cell (WBC) Count 13.5 thou/uL (4.8-10.8)
[2018-09-20 05:46] LABS: Anion Gap 14 mmol/L (10-20); BUN (Urea Nitrogen) 28 mg/dL (9.8-20.1); Calc. Creatinine Clearance 60 mL/min (70-130); Calcium 8.6 mg/dL (7.8-10.44); Carbon Dioxide 24 mmol/L (23-31); Chloride 100 mmol/L (98-107); Estimated GFR-MDRD 52; Glucose 88 mg/dL (83-110); Potassium 3.9 mmol/L (3.5-5.1); Sodium 134 mmol/L (136-145)
[2018-09-20] MEDS: Heparin 5,000 UNITS/ML VIAL SC SCH ×3 (09:16→21:04)
[2018-09-20] MEDS ORDERED: Non-Formulary Item 1 EACH (Promethazine Hcl/Codeine [Prometh-Codein 6.25-10 Mg/5 Ml] 5 ML PO PRN (09:25)
[2018-09-20] MEDS ORDERED: Non-Formulary Item 1 EACH (Albuterol Sulfate [Proair Respiclick] 90 MCG) IH PRN (09:25)
[2018-09-20] MEDS ORDERED: Furosemide 20 MG TAB PO PRN (09:25)
--- NOTE | 2018-09-20 11:27 | PRG ---
DATE OF SERVICE: 09/20/2018 SUBJECTIVE: The patient is seen and examined at bedside. She is feeling significantly better. Her is present in the room during my visit. She is able to communicate with me and answered my questions. OBJECTIVE: VITAL SIGNS: Blood pressure is 154/67, pulse is 108, temperature is 97.6, respirations 18, and O2 saturation is 92% on 2 L by nasal cannula. HEENT: Head is atraumatic and normocephalic. Eyes are PERRLA. Sclerae are nonicteric. Conjunctivae are little palish. NECK: Supple. LUNGS: Bilateral rales present. No wheezing. HEART: S1 and S2, somewhat irregular. No S3. No S4. ABDOMEN: Soft, nontender, and nondistended. EXTREMITIES: 1+ peripheral edema, nonpitting. NEUROLOGICAL: She follows my commands. She is able to move her all four extremities. There are no any motor deficits. LABORATORY DATA: Showed white count of 13.5, hemoglobin 10.8, hematocrit 34.1, and platelet count is 264,000. Chemistry showed sodium of 134, potassium 3.9, chloride 100, CO2 of 24, BUN 28, creatinine 1.03, calcium 8.6. Procalcitonin 0.06. Lactic acid 0.6 and 0.52 readings. Microbiology: Bacterial cultures negative x2, urine culture negative x1 in 24 hours. IMPRESSION: 1. Fever with some shortness of breath and cough, unclear etiology at this point since CT of the chest was read as no infiltrate by the radiologist. 2. Questionable lower lobe pneumonia. 3. Hyponatremia. 4. Chronic deconditioning. 5. Renal insufficiency, improved with IV fluids. 6. History of recurrent pneumonia. 7. History of Clostridium difficile infection. 8. History of atrial fibrillation. 9. Hypertension. 10. Hypothyroidism. 11. Hyperlipidemia. 12. Do not resuscitate status. PLAN: Plan is to stop her IV fluids. The patient is able to take fluids orally. We will continue DNAR status. We will continue albuterol and Atrovent q.4 hours. We will continue cefepime 1 g every 12 hours IV piggyback. We will obtain ID consult with Dr. Burks since her CT of the chest was read as no infiltrates. Cultures came back negative so for. We will add Mucinex to help her to expectorate her congestion. Job ID: [id number]
[2018-09-20] MEDS: HYDROcodone/Acetaminophen 10/325 mg Tablet PO PRN ×2 (11:57→19:45)
[2018-09-20] MEDS ORDERED: Potassium Chloride 10 MEQ TAB PO PRN (13:45)
[2018-09-20] MEDS ORDERED: PROVENTIL INHALER 6.7 G (200 INHALATIONS) INH PRN (14:03)
--- NOTE | 2018-09-20 15:00 | PQF ---
DATE: 09-20-18 ATTN: DR. CAROLINE CLARKE Please exercise your independent, professional judgment in responding to the clarification form. Clinical indicators are provided on the bottom of this form for your review Please check appropriate box(s) to clarify if the following diagnosis has been ruled in or ruled out: SEPSIS [ ] Ruled in diagnosis [ ] Continue to treat [ ] Resolved [ ] Ruled out diagnosis [ ] Other diagnosis [ ] Unable to determine In addition, please specify: Present on Admission (POA): [ ] Yes [ ] No [ ] Unable to determine For continuity of documentation, please document condition throughout progress notes and discharge summary. Thank You. CLINICAL INDICATORS - SIGNS / SYMPTOMS / LABS ER DX: SEPSIS, PNEUMONIA H&P: FEVER WITH SOB AND COUGH, AND LEFT LOWER LOBE INFILTRATE SUGGESTIVE OF SOME PNEUMONIA, LEFT LOWER LOBE PNEUMONIA WBC: 09-19-18: 23.3 09-20-18: 13.5 TEMP: ER: 99.7, 101.1 RECTAL PULSE: ER: 11, 113 09-19-18: 100, 108 RR: ER: 24, 24, 22 RISK FACTORS: H&P: FEVER WITH SOB AND COUGH, AND LEFT LOWER LOBE INFILTRATE SUGGESTIVE OF SOME PNEUMONIA, LEFT LOWER LOBE PNEUMONIA ER DX: SEPSIS, PNEUMONIA TREATMENTS: ER: NS IVF, CEFEPIME, NS IVF, VANCOMYCIN (This form is maintained as a part of the permanent medical record) 2014 [employer] All Rights Reserved VITALY [email or web address] Office: [phone] [facility]
--- NOTE | 2018-09-20 15:38 | EKG ---
Test Reason : Blood Pressure : / mmHG Vent. Rate : 111 BPM Atrial Rate : 111 BPM P-R Int : 190 ms QRS Dur : 108 ms QT Int : 344 ms P-R-T Axes : 037 -71 101 degrees QTc Int : 467 ms Sinus tachycardia Possible Left atrial enlargement Left anterior fascicular block Confirmed by ROSELINE WILCOX ([id number]), editorial clerk ROMY CHAMBERS ([id number]) on 09/20/2018 3:37:44 PM Referred By: Confirmed By:ROSELINE WILCOX
[2018-09-20] MEDS: Gabapentin 400 MG CAP PO SCH (17:30)
[2018-09-20] MEDS ORDERED: Non-Formulary Item 1 EACH (Zantac 150 MG) PO SCH (21:00)
[2018-09-20] MEDS ORDERED: ALPRAZolam 0.25 MG TAB PO SCH (21:00)
[2018-09-20] MEDS: TROSPIUM 20 MG TABLET PO SCH (21:01)
[2018-09-20] MEDS: Atorvastatin Calcium 10 MG TAB PO SCH (21:01)
[2018-09-20] MEDS: diphenhydrAMINE 25 MG CAP PO PRN (21:01)
[2018-09-20] MEDS: guaiFENesin ER 600 MG TAB PO SCH (21:01)
[2018-09-20] MEDS: Famotidine 20 MG TAB PO SCH (21:04)
[2018-09-20] MEDS: ALPRAZolam 0.25 MG TAB PO SCH (21:33)
[2018-09-20] MEDS: Budesonide 0.25 MG/2 ML NEB NEB SCH (21:37)
[2018-09-21] MEDS: HYDROcodone/Acetaminophen 10/325 mg Tablet PO PRN ×3 (02:58→19:03)
[2018-09-21] MEDS: Cefepime 1 GM in Sodium Chloride 0.9% 100 ML IVPB SCH ×2 (04:59→16:10)
[2018-09-21] MEDS: Levothyroxine Sodium 125 MCG TAB PO SCH (04:59)
[2018-09-21 05:59] LABS: #Basophils 0.1 thou/uL (0.0-0.2); #Eosinphils 0.9 thou/uL (0.0-0.7); #Lymphocytes 1.8 thou/uL (1.20-3.40); #Monocytes 1.1 thou/uL (0.11-0.59); #Neutrophils 9.5 thou/uL (1.40-6.50); %Basophils 0.4 % (0.0-1.0); %Eosinophils 6.9 % (0.0-10.0); %Lymphocytes 13.7 % (21.0-51.0); %Monocytes 7.9 % (0.0-10.0); Hemoglobin 10.1 g/dL (12.0-16.0); Mean Corpuscular HGB CONC 33.1 g/dL (32.0-36.0); Mean Corpuscular Hemoglobin 29.3 pg (27.0-31.0); Mean Corpuscular Volume 88.5 fL (78.0-98.0); Mean Platelet Volume 7.5 fL (7.4-10.4); Platelet Count 230 thou/uL (130-400); RBC Distribution Width 12.2 % (11.5-14.5); Red Blood Cell (RBC) Count 3.43 mill/uL (4.20-5.40); White Blood Cell (WBC) Count 13.4 thou/uL (4.8-10.8)
[2018-09-21 06:08] LABS: Anion Gap 13 mmol/L (10-20); BUN (Urea Nitrogen) 21 mg/dL (9.8-20.1); Calc. Creatinine Clearance 65 mL/min (70-130); Calcium 8.3 mg/dL (7.8-10.44); Carbon Dioxide 25 mmol/L (23-31); Chloride 98 mmol/L (98-107); Estimated GFR-MDRD 57; Glucose 98 mg/dL (83-110); Potassium 3.9 mmol/L (3.5-5.1); Sodium 132 mmol/L (136-145)
[2018-09-21] MEDS: Budesonide 0.25 MG/2 ML NEB NEB SCH ×2 (07:53→19:22)
[2018-09-21] MEDS: Heparin 5,000 UNITS/ML VIAL SC SCH ×3 (08:20→21:12)
[2018-09-21] MEDS: Gabapentin 400 MG CAP PO SCH ×3 (08:21→16:10)
[2018-09-21] MEDS: guaiFENesin ER 600 MG TAB PO SCH ×2 (08:22→21:12)
[2018-09-21] MEDS: Ascorbic Acid 500 mg Chewable Tablet PO SCH (08:22)
[2018-09-21] MEDS: Cholecalciferol (Vitamin D3) 400 UNITS TAB PO SCH (08:22)
[2018-09-21] MEDS: FLUoxetine HCl 20 MG CAP PO SCH (08:22)
[2018-09-21] MEDS: TROSPIUM 20 MG TABLET PO SCH ×2 (08:22→21:13)
[2018-09-21] MEDS: Multivitamin W/ Minerals 1 TAB PO SCH (08:22)
[2018-09-21] MEDS: Valsartan 80 MG TAB PO SCH (08:22)
[2018-09-21] MEDS: Saccharomyces boulardii 250 MG CAP PO SCH (08:23)
[2018-09-21] MEDS: Amlodipine 10 MG TAB PO SCH (08:23)
[2018-09-21] MEDS ORDERED: Tolterodine Tartrate LA 4 MG CAP PO SCH (09:00)
[2018-09-21] MEDS ORDERED: Meloxicam 15 MG TAB PO SCH (09:00)
--- NOTE | 2018-09-21 12:54 | PRG ---
DATE OF SERVICE: 09/21/2018 SUBJECTIVE: The patient is seen and examined at bedside. The patient is feeling significantly better. Her breathing is improved. Her appetite is coming back. OBJECTIVE: VITAL SIGNS: Blood pressure is 114/55, pulse is 82, respiratory rate is 16, O2 saturation is 92% on 2 L by nasal cannula. Her maximal temperature was 100.0 yesterday. HEENT: Her head is atraumatic and normocephalic. Eyes are PERRLA. Sclerae are nonicteric. Oral mucosa is moist. NECK: Supple. LUNGS: Bilateral crackles and rales, significantly diminished, but still present. No wheezing. HEART: S1, S2 somewhat irregular. No S3. No S4. ABDOMEN: Soft, nontender, nondistended. EXTREMITIES: 1+ peripheral edema similar bilaterally, nonpitting. SKIN: No rash or erythema. NEUROLOGIC: She answers my questions properly. She is able to move her all 4 extremities. Cranial nerves are intact. LABORATORY DATA: Labs showed white count of 13.4, hemoglobin of 10.1, hematocrit 30.3, platelet count 230, neutrophils 71. Sodium of 132, potassium 3.9, chloride 98, CO2 of 25, BUN 21, creatinine 0.95. Microbiology, 2 blood cultures, no growth and urine culture, no growth. IMPRESSION: 1. Acute bronchitis. Pneumonia was ruled out with CT of the chest. She improved significantly. Her temperature is trending down. Her respiratory status improved. 2. Hyponatremia, mild. 3. Chronic deconditioning. 4. Renal insufficiency, improved with IV fluids. 5. History of recurrent pneumonia. 6. History of Clostridium difficile infection. 7. History of atrial fibrillation. 8. Hypertension. 9. Hypothyroidism. 10. Hyperlipidemia. 11. Do not resuscitate status. PLAN: Continue her current regimen. We will switch her to Omnicef from cefepime at this point. We will continue DuoNeb. We will continue O2 and if she requires O2 tomorrow, we will get oxygen to be used at home. Job ID: [id number]
[2018-09-21] MEDS: ALPRAZolam 0.25 MG TAB PO SCH (21:12)
[2018-09-21] MEDS: Atorvastatin Calcium 10 MG TAB PO SCH (21:13)
[2018-09-21] MEDS: Famotidine 20 MG TAB PO SCH (21:13)
[2018-09-21] MEDS: diphenhydrAMINE 25 MG CAP PO PRN (21:19)
--- NOTE | 2018-09-21 23:45 | CON ---
DATE OF CONSULTATION: 09/21/2018 REASON FOR CONSULTATION: Fever, cough, wheezing. HISTORY OF PRESENT ILLNESS: 78-year-old, known to us from prior visits with a history of recurrent respiratory tract infections, hypertension, and bronchial tracheomalacia as well as a prior episode of an invasive UTI. The last admission was in May when she had pneumonia recurrence, which was due to incomplete treatment of a previous episode of pneumonia. She received cefepime and vancomycin. At this time, she was treated for a longer period of time and felt relatively well. In July, she came to the emergency room because of a dental infection, which developed after a tooth extraction. She was basically treated with Keflex and sent home. Now, she comes back with worsening dyspnea and cough. She had some drowsiness and difficulty of arousal. In the emergency room, her temperature 101, the white cell count was elevated. Currently, she is awake. She is feeling better. Denies any headaches or visual symptoms. She is still a little bit of wheezing that she points at the mid of the chest, upper aspect, close to the neck. No chest pain. No abdominal pain or diarrhea. No genitourinary symptoms. She does not have a Dunn catheter, but has one of those devices that aspirates urine at the introitus. No neurological symptoms other than drowsiness, which has improved. PAST MEDICAL HISTORY: Recurrent pneumonias; tracheobronchomalacia, chronic; E coli; nonambulatory status due to deconditioning, osteoarthritis, and obesity; prior C diff infection, AFib, hypertension, hypothyroidism, hyperlipidemia. PAST SURGICAL HISTORY: Appendectomy, hysterectomy, cholecystectomy. ALLERGIES: BACTRIM. CURRENT MEDICATIONS: 1. [place]. 2. Proventil. 3. DuoNeb. 4. Xanax. 5. Norvasc. 6. Lipitor. 7. Pulmicort. 8. Cefepime. 9. Pepcid. 10. Lasix. 11. Neurontin. 12. Theragran. 13. Synthroid. PHYSICAL EXAMINATION: VITAL SIGNS: T-max 101, she is now 99.2; blood pressure 112/55, pulse 110, respirations 16, O2 saturation 94%. SKIN: No areas of skin breakdown. She has a peripheral IV access. HEENT: No lymphadenopathy. Ocular movements conjugate. Oral cavity normal. NECK: Supple. LUNGS: With scattered rhonchi; crackles, more intense in the left lower base. HEART: S1 and S2. Regular rate. ABDOMEN: Soft, not distended. EXTREMITIES: She is able to move her extremities, but is diffusely weak. Atrophy of interosseous musculature. Pulses 1+ in dorsalis pedis. Plantar responses are flexor. No clonus. NEUROLOGIC: She is more alert than usual at this stage of her admission compared with prior visits. The cognition appears to be back to baseline. LABORATORY DATA: White cell count is 23,000, down to 13; hemoglobin 10, platelets 230. Sodium 132, creatinine 0.95. Bilirubin 0.5, AST 15, and ALT 16. BNP 102. Albumin 3.8. Urinalysis with normal findings. Microbiology with negative blood culture thus far and negative urine culture. Chest CT from 2 days ago showed atelectasis in lung bases and scarring in the right apex. ASSESSMENT: Tracheobronchomalacia with recurrent episodes of pulmonary infection; she has had already 2 this year and now she comes for what appears to be a 3rd one. The 1st two were more likely related to persistence of the original infection at the beginning of this year. Although, she does not have obvious acute infiltrates, I believe that the left lung has inflammatory process, which is probably responsible for the patient's clinical symptoms. Continue current antimicrobial therapy. Could consider ceftriaxone and azithromycin. She does have a history of C diff and would be at risk for recrudescence in the next few days. Duration of therapy will be the usual. I think I would eventually transition her to a 3rd generation oral cephalosporin for discharge planning. Duration of therapy probably at least 2 weeks after discharge. Check Strep pneum and Legionella urine antigen tests. Job ID: [id number] [facility]
[2018-09-22] MEDS: Cefepime 1 GM in Sodium Chloride 0.9% 100 ML IVPB SCH ×2 (05:05→15:48)
[2018-09-22] MEDS: Levothyroxine Sodium 125 MCG TAB PO SCH (05:05)
[2018-09-22] MEDS: HYDROcodone/Acetaminophen 10/325 mg Tablet PO PRN ×3 (05:13→21:42)
[2018-09-22 05:26] LABS: #Basophils 0.1 thou/uL (0.0-0.2); #Lymphocytes 2.4 thou/uL (1.20-3.40); #Monocytes 0.9 thou/uL (0.11-0.59); #Neutrophils 5.7 thou/uL (1.40-6.50); %Basophils 0.5 % (0.0-1.0); %Lymphocytes 23.8 % (21.0-51.0); %Monocytes 8.7 % (0.0-10.0); Hemoglobin 10.6 g/dL (12.0-16.0); Mean Corpuscular HGB CONC 32.2 g/dL (32.0-36.0); Mean Platelet Volume 7.3 fL (7.4-10.4); Platelet Count 238 thou/uL (130-400); RBC Distribution Width 12.1 % (11.5-14.5); Red Blood Cell (RBC) Count 3.65 mill/uL (4.20-5.40); White Blood Cell (WBC) Count 9.9 thou/uL (4.8-10.8)
[2018-09-22 05:40] LABS: Anion Gap 13 mmol/L (10-20); BUN (Urea Nitrogen) 18 mg/dL (9.8-20.1); Calc. Creatinine Clearance 58 mL/min (70-130); Calcium 8.9 mg/dL (7.8-10.44); Carbon Dioxide 27 mmol/L (23-31); Chloride 99 mmol/L (98-107); Estimated GFR-MDRD 50; Glucose 96 mg/dL (83-110); Potassium 4.5 mmol/L (3.5-5.1); Sodium 134 mmol/L (136-145)
[2018-09-22] MEDS: Budesonide 0.25 MG/2 ML NEB NEB SCH ×2 (07:10→19:11)
[2018-09-22] MEDS: Gabapentin 400 MG CAP PO SCH ×3 (08:21→17:59)
[2018-09-22] MEDS: Amlodipine 10 MG TAB PO SCH (08:30)
[2018-09-22] MEDS: Saccharomyces boulardii 250 MG CAP PO SCH (08:30)
[2018-09-22] MEDS: Ascorbic Acid 500 mg Chewable Tablet PO SCH (08:30)
[2018-09-22] MEDS: TROSPIUM 20 MG TABLET PO SCH ×2 (08:30→21:41)
[2018-09-22] MEDS: Valsartan 80 MG TAB PO SCH (08:31)
[2018-09-22] MEDS: Heparin 5,000 UNITS/ML VIAL SC SCH ×3 (08:31→21:41)
[2018-09-22] MEDS: FLUoxetine HCl 20 MG CAP PO SCH (08:31)
[2018-09-22] MEDS: Cholecalciferol (Vitamin D3) 400 UNITS TAB PO SCH (08:31)
[2018-09-22] MEDS: Multivitamin W/ Minerals 1 TAB PO SCH (08:31)
--- NOTE | 2018-09-22 08:46 | PQF ---
DATE: 09-20-18 ATTN: DR. CAROLINE CLARKE / DR. PURVI HANKINS Please exercise your independent, professional judgment in responding to the clarification form. Clinical indicators are provided on the bottom of this form for your review Please check appropriate box(s) to clarify if the following diagnosis has been ruled in or ruled out: SEPSIS [ ] Ruled in diagnosis [ ] Continue to treat [ ] Resolved [ ] Ruled out diagnosis [ x ] Other diagnosis Pneumonia [ ] Unable to determine In addition, please specify: Present on Admission (POA): [ x ] Yes [ ] No [ ] Unable to determine For continuity of documentation, please document condition throughout progress notes and discharge summary. Thank You. CLINICAL INDICATORS - SIGNS / SYMPTOMS / LABS ER DX: SEPSIS, PNEUMONIA H&P: FEVER WITH SOB AND COUGH, AND LEFT LOWER LOBE INFILTRATE SUGGESTIVE OF SOME PNEUMONIA, LEFT LOWER LOBE PNEUMONIA WBC: 09-19-18: 23.3 09-20-18: 13.5 TEMP: ER: 99.7, 101.1 RECTAL PULSE: ER: 11, 113 09-19-18: 100, 108 RR: ER: 24, 24, 22 RISK FACTORS: H&P: FEVER WITH SOB AND COUGH, AND LEFT LOWER LOBE INFILTRATE SUGGESTIVE OF SOME PNEUMONIA, LEFT LOWER LOBE PNEUMONIA ER DX: SEPSIS, PNEUMONIA TREATMENTS: ER: NS IVF, CEFEPIME, NS IVF, VANCOMYCIN (This form is maintained as a part of the permanent medical record) 2014 [employer], [facility]. All Rights Reserved VITALY [email or web address] Office: [phone] [facility]
[2018-09-22] MEDS: guaiFENesin ER 600 MG TAB PO SCH ×2 (10:26→21:41)
--- NOTE | 2018-09-22 11:28 | PRG ---
DATE OF SERVICE: 09/22/2018 SUBJECTIVE: The patient is gradually improving. She still has quite a bit of congestion, but her appetite is coming back and she is much more awake and alert, able to converse with me. OBJECTIVE: VITAL SIGNS: Blood pressure is 106/59, pulse is 99, temperature is 98.1, maximal temperature is 99.6 yesterday and 100.0 two days ago. Her respiratory rate is 18, and O2 saturation is 95% on 1 L by nasal cannula. HEENT: Head is atraumatic and normocephalic. Eyes are PERRLA. Sclerae are nonicteric. Oral mucosa is moist. NECK: Supple. LUNGS: Bilateral rales and crackles present mostly in the left lower lobe. HEART: S1 and S2 somewhat irregular. No S3. No S4. ABDOMEN: Soft, mildly distended. Bowel sounds are present. No organomegaly. EXTREMITIES: No clubbing or cyanosis. 1+ peripheral edema similar bilaterally, nonpitting. NEUROLOGICAL: She follows my commands, moves her all four extremities. There is no any sensory or motor deficits present. Cranial nerves are intact. LABORATORY DATA: Labs showed white count of 9.9, hemoglobin 10.6, hematocrit 32, and platelet count is 238,000. Sodium of 134. The rest of chemistry within normal limits. Microbiology, no new findings. IMPRESSION: 1. Tracheobronchomalacia with recurrent episodes of pulmonary infection with suspicion for some inflammatory process in the left lower lobe responsible for this patient's clinical symptoms. 2. Hyponatremia, chronic, mild, improved. 3. Chronic deconditioning and bedridden stage. 4. Renal insufficiency, improved with IV fluids. 5. History of recurrent pneumonia. 6. History of Clostridium difficile infection. 7. History of atrial fibrillation. 8. Hypertension. 9. Hypothyroidism. 10. Hyperlipidemia. 11. Do not resuscitate status. DISCUSSION: The patient is getting better. She should be able to go home on her nebulizers, antibiotics, and O2 tomorrow. Apparently, her is trying to obtain more help at home since he is elderly and not able to do much anymore. For now, we will continue current regimen with nebulizers, antibiotics, and continuation of her O2. Job ID: [id number]
[2018-09-22] MEDS: ALPRAZolam 0.25 MG TAB PO SCH (21:41)
[2018-09-22] MEDS: Atorvastatin Calcium 10 MG TAB PO SCH (21:41)
[2018-09-22] MEDS: Famotidine 20 MG TAB PO SCH (21:41)
[2018-09-22] MEDS: diphenhydrAMINE 25 MG CAP PO PRN (21:42)
[2018-09-23] MEDS: Cefepime 1 GM in Sodium Chloride 0.9% 100 ML IVPB SCH ×2 (03:41→17:22)
[2018-09-23] MEDS: Levothyroxine Sodium 125 MCG TAB PO SCH (04:58)
[2018-09-23] MEDS: Budesonide 0.25 MG/2 ML NEB NEB SCH ×2 (07:17→19:10)
[2018-09-23] MEDS: Ascorbic Acid 500 mg Chewable Tablet PO SCH (09:30)
[2018-09-23] MEDS: guaiFENesin ER 600 MG TAB PO SCH ×2 (09:30→21:13)
[2018-09-23] MEDS: Heparin 5,000 UNITS/ML VIAL SC SCH ×3 (09:30→21:13)
[2018-09-23] MEDS: FLUoxetine HCl 20 MG CAP PO SCH (09:30)
[2018-09-23] MEDS: TROSPIUM 20 MG TABLET PO SCH ×2 (09:30→21:13)
[2018-09-23] MEDS: Cholecalciferol (Vitamin D3) 400 UNITS TAB PO SCH (09:31)
[2018-09-23] MEDS: Valsartan 80 MG TAB PO SCH (09:31)
[2018-09-23] MEDS: Multivitamin W/ Minerals 1 TAB PO SCH (09:31)
[2018-09-23] MEDS: Amlodipine 10 MG TAB PO SCH (09:32)
[2018-09-23] MEDS: Gabapentin 400 MG CAP PO SCH ×3 (09:32→17:39)
[2018-09-23] MEDS: Saccharomyces boulardii 250 MG CAP PO SCH (09:32)
[2018-09-23] MEDS: Phenergan/Codeine 10-6.25mg/5ml UDCUP PO PRN (12:01)
[2018-09-23] MEDS: HYDROcodone/Acetaminophen 10/325 mg Tablet PO PRN ×2 (14:32→21:12)
--- NOTE | 2018-09-23 14:58 | PDOC.PN ---
- Subjective Encounter Start Date: 09/23/18 Encounter Start Time: 11:45 -: old records requested/rev Pt seen and examined, chart reviewed in its entirety. this is my first visit with this patient follow up for LLL pneumonia, acute hypoxemic respiratory failure No f/c, no N/V/D/C, no CP. still with GOLD and orthopnea All systems reviewed and neg x as above - Objective Resuscitation Status - Order Detail: 09/19/18 15:49 Resuscitation Status Routine Resuscitation Status: DNAR: NO Resuscitation Discussed with: daughter ALISON Reviewed: Yes Vital Signs & Weight: Vital Signs (12 hours) Temp Pulse Resp BP BP Pulse Ox 09/23/18 14:04 100 14 09/23/18 11:58 98.1 F 101 H 20 115/55 L 09/23/18 10:36 90 14 09/23/18 09:32 87 135/67 09/23/18 07:22 98.5 F 87 18 135/67 96 09/23/18 07:18 100 14 09/23/18 03:40 99.6 F 92 16 119/58 L 93 L Weight Weight 186 lb 4.8 oz I&O: 09/22/18 09/23/18 09/24/18 06:59 06:59 06:59 Intake Total 240 1323 Output Total 1050 1200 Balance -810 123 Result Diagrams: 09/22/18 04:21 09/22/18 04:21 Radiology Reviewed by me: Yes EKG Reviewed by me: Yes Phys Exam - Physical Examination Constitutional: NAD HEENT: PERRLA, moist MMs, sclera anicteric, oral pharynx no lesions Neck: no nodes, no JVD, supple, full ROM Respiratory: no wheezing, no rales, no rhonchi, clear to auscultation bilateral Cardiovascular: RRR, no significant murmur, no rub Gastrointestinal: soft, non-tender, no distention, positive bowel sounds Musculoskeletal: no edema, pulses present Neurological: non-focal, normal sensation, moves all 4 limbs Lymphatic: no nodes Psychiatric: normal affect, A&O x 3 Skin: no rash, normal turgor, cap refill <2 seconds Dx/Plan (1) Acute bronchitis Code(s): J20.9 - ACUTE BRONCHITIS, UNSPECIFIED Status: Acute Qualifiers: Bronchitis organism: unspecified organism Qualified Code(s): J20.9 - Acute bronchitis, unspecified Comment: presen ton admit, no pneumonia, pneumonia ruled out. Ct with opacities , discussed with [employer], these are chonic in nature. (2) Acute respiratory failure with hypoxemia Code(s): J96.01 - ACUTE RESPIRATORY FAILURE WITH HYPOXIA Status: Acute (3) Healthcare associated bacterial pneumonia Code(s): J15.9 - UNSPECIFIED BACTERIAL PNEUMONIA Status: Acute (4) 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 Code(s): J39.8 - OTHER SPECIFIED DISEASES OF UPPER RESPIRATORY TRACT Status: Acute (5) Afib Code(s): I48.91 - UNSPECIFIED ATRIAL FIBRILLATION Status: Chronic Qualifiers: Atrial fibrillation type: chronic Qualified Code(s): I48.2 - Chronic atrial fibrillation Comment: continue aspirin. Not on anticoagulation due to high risk of bleeding (6) Anxiety and depression Code(s): F41.8 - OTHER SPECIFIED ANXIETY DISORDERS Status: Chronic (7) COPD (chronic obstructive pulmonary disease) Status: Chronic Qualifiers: Chronic bronchitis type: unspecified Comment: Stable. Not in acute exacerbation. (8) Chronic anemia Code(s): D64.9 - ANEMIA, UNSPECIFIED Status: Chronic (9) Chronic low back pain Code(s): M54.5 - LOW BACK PAIN; G89.29 - OTHER CHRONIC PAIN Status: Chronic Qualifiers: Back pain laterality: unspecified Sciatica presence: unspecified whether sciatica present Qualified Code(s): M54.5 - Low back pain; G89.29 - Other chronic pain (10) GERD (gastroesophageal reflux disease) Code(s): K21.9 - GASTRO-ESOPHAGEAL REFLUX DISEASE WITHOUT ESOPHAGITIS Status: Chronic Qualifiers: Esophagitis presence: without esophagitis Qualified Code(s): K21.9 - Gastro -esophageal reflux disease without esophagitis - Plan cont current plan of care, continue antibiotics, PT/OT, 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
[2018-09-23] MEDS: ALPRAZolam 0.25 MG TAB PO SCH (21:11)
[2018-09-23] MEDS: diphenhydrAMINE 25 MG CAP PO PRN (21:12)
[2018-09-23] MEDS: Famotidine 20 MG TAB PO SCH (21:13)
[2018-09-23] MEDS: Atorvastatin Calcium 10 MG TAB PO SCH (21:13)
[2018-09-24] MEDS: Levothyroxine Sodium 125 MCG TAB PO SCH (05:16)
[2018-09-24] MEDS: Cefepime 1 GM in Sodium Chloride 0.9% 100 ML IVPB SCH (05:16)
[2018-09-24] MEDS: Budesonide 0.25 MG/2 ML NEB NEB SCH ×2 (06:57→19:05)
[2018-09-24 08:22] LABS: #Basophils 0.1 thou/uL (0.0-0.2); #Eosinphils 0.9 thou/uL (0.0-0.7); #Lymphocytes 1.7 thou/uL (1.20-3.40); #Monocytes 0.7 thou/uL (0.11-0.59); #Neutrophils 3.3 thou/uL (1.40-6.50); %Basophils 0.8 % (0.0-1.0); %Eosinophils 13.9 % (0.0-10.0); %Lymphocytes 25.4 % (21.0-51.0); %Monocytes 10.9 % (0.0-10.0); %Neutrophils 49.1 % (42.0-75.0); Hemoglobin 10.2 g/dL (12.0-16.0); Mean Corpuscular HGB CONC 31.8 g/dL (32.0-36.0); Mean Corpuscular Hemoglobin 28.3 pg (27.0-31.0); Mean Corpuscular Volume 88.9 fL (78.0-98.0); Platelet Count 256 thou/uL (130-400); RBC Distribution Width 11.9 % (11.5-14.5); Red Blood Cell (RBC) Count 3.61 mill/uL (4.20-5.40); White Blood Cell (WBC) Count 6.8 thou/uL (4.8-10.8)
[2018-09-24] MEDS ORDERED: Azithromycin 200 MG/5 ML Oral Suspension PO SCH (09:00)
[2018-09-24 09:04] LABS: Anion Gap 12 mmol/L (10-20); BUN (Urea Nitrogen) 15 mg/dL (9.8-20.1); Calc. Creatinine Clearance 59 mL/min (70-130); Calcium 9.1 mg/dL (7.8-10.44); Carbon Dioxide 25 mmol/L (23-31); Chloride 104 mmol/L (98-107); Estimated GFR-MDRD 51; Glucose 98 mg/dL (83-110); Magnesium 2.2 mg/dL (1.6-2.6); Potassium 4.3 mmol/L (3.5-5.1); Sodium 137 mmol/L (136-145)
[2018-09-24] MEDS: Valsartan 80 MG TAB PO SCH (10:16)
[2018-09-24] MEDS: Cholecalciferol (Vitamin D3) 400 UNITS TAB PO SCH (10:21)
[2018-09-24] MEDS: TROSPIUM 20 MG TABLET PO SCH ×2 (10:21→21:54)
[2018-09-24] MEDS: Amlodipine 10 MG TAB PO SCH (10:22)
[2018-09-24] MEDS: Ascorbic Acid 500 mg Chewable Tablet PO SCH (10:22)
[2018-09-24] MEDS: guaiFENesin ER 600 MG TAB PO SCH ×2 (10:22→21:54)
[2018-09-24] MEDS: Gabapentin 400 MG CAP PO SCH ×4 (10:23→21:54)
[2018-09-24] MEDS: Saccharomyces boulardii 250 MG CAP PO SCH (10:23)
[2018-09-24] MEDS: Multivitamin W/ Minerals 1 TAB PO SCH (10:24)
[2018-09-24] MEDS: Heparin 5,000 UNITS/ML VIAL SC SCH ×3 (10:25→21:55)
[2018-09-24] MEDS: HYDROcodone/Acetaminophen 10/325 mg Tablet PO PRN ×2 (10:26→17:36)
[2018-09-24] MEDS: Azithromycin 250 MG TAB PO SCH (10:27)
[2018-09-24] MEDS: FLUoxetine HCl 20 MG CAP PO SCH (10:28)
[2018-09-24] MEDS: cefTRIAXone\\ROCEPHIN 2 GM in Sodium Chloride 0.9% 100 ML IVPB SCH (10:36)
[2018-09-24 11:05] LABS: Legionella Urinary Ag Negative (Negative)
[2018-09-24 11:06] LABS: Strep pneumo Urine Ag NEGATIVE (NEGATIVE)
--- NOTE | 2018-09-24 12:26 | PDOC.PN ---
- Subjective Encounter Start Date: 09/24/18 Encounter Start Time: 11:00 follow up for LLL pneumonia, acute hypoxemic respiratory failure No f/c, no N/V/D/C, no CP. still with GOLD and orthopnea All systems reviewed and neg x as above sleepy today, no acute overnight events - Objective Resuscitation Status - Order Detail: 09/19/18 15:49 Resuscitation Status Routine Resuscitation Status: DNAR: NO Resuscitation Discussed with: daughter ALISON Reviewed: Yes Vital Signs & Weight: Vital Signs (12 hours) Temp Pulse Resp BP BP Pulse Ox 09/24/18 11:27 96.8 F L 94 18 113/61 2 L 09/24/18 10:48 80 14 09/24/18 10:22 71 113/59 L 09/24/18 07:42 98.4 F 71 16 113/59 L 93 L 09/24/18 06:57 80 14 09/24/18 04:00 98.8 F 89 18 111/55 L 92 L Weight Weight 188 lb I&O: 09/23/18 09/24/18 09/25/18 06:59 06:59 06:59 Intake Total 1323 1170 Output Total 1200 Balance 123 1170 Result Diagrams: 09/24/18 08:09 09/24/18 08:08 Phys Exam - Physical Examination Constitutional: NAD HEENT: PERRLA, moist MMs, sclera anicteric, oral pharynx no lesions Neck: no nodes, no JVD, supple, full ROM Respiratory: no wheezing, no rales, no rhonchi, clear to auscultation bilateral Cardiovascular: RRR, no significant murmur, no rub Gastrointestinal: soft, non-tender, no distention, positive bowel sounds Musculoskeletal: pulses present, edema present Neurological: moves all 4 limbs globally weak Lymphatic: no nodes Psychiatric: normal affect, A&O x 3 Skin: no rash, normal turgor, cap refill <2 seconds Dx/Plan (1) Acute bronchitis Code(s): J20.9 - ACUTE BRONCHITIS, UNSPECIFIED Status: Acute Qualifiers: Bronchitis organism: unspecified organism Qualified Code(s): J20.9 - Acute bronchitis, unspecified Comment: presen ton admit, no pneumonia, pneumonia ruled out. Ct with opacities , discussed with [employer], these are chonic in nature. (2) Acute respiratory failure with hypoxemia Code(s): J96.01 - ACUTE RESPIRATORY FAILURE WITH HYPOXIA Status: Acute (3) Healthcare associated bacterial pneumonia Code(s): J15.9 - UNSPECIFIED BACTERIAL PNEUMONIA Status: Acute (4) 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 Code(s): J39.8 - OTHER SPECIFIED DISEASES OF UPPER RESPIRATORY TRACT Status: Acute (5) Afib Code(s): I48.91 - UNSPECIFIED ATRIAL FIBRILLATION Status: Chronic Qualifiers: Atrial fibrillation type: chronic Qualified Code(s): I48.2 - Chronic atrial fibrillation Comment: continue aspirin. Not on anticoagulation due to high risk of bleeding (6) Anxiety and depression Code(s): F41.8 - OTHER SPECIFIED ANXIETY DISORDERS Status: Chronic (7) COPD (chronic obstructive pulmonary disease) Status: Chronic Qualifiers: Chronic bronchitis type: unspecified Comment: Stable. Not in acute exacerbation. (8) Chronic anemia Code(s): D64.9 - ANEMIA, UNSPECIFIED Status: Chronic (9) Chronic low back pain Code(s): M54.5 - LOW BACK PAIN; G89.29 - OTHER CHRONIC PAIN Status: Chronic Qualifiers: Back pain laterality: unspecified Sciatica presence: unspecified whether sciatica present Qualified Code(s): M54.5 - Low back pain; G89.29 - Other chronic pain (10) GERD (gastroesophageal reflux disease) Code(s): K21.9 - GASTRO-ESOPHAGEAL REFLUX DISEASE WITHOUT ESOPHAGITIS Status: Chronic Qualifiers: Esophagitis presence: without esophagitis Qualified Code(s): K21.9 - Gastro -esophageal reflux disease without esophagitis - Plan * .
[2018-09-24] MEDS: Atorvastatin Calcium 10 MG TAB PO SCH (21:54)
[2018-09-24] MEDS: ALPRAZolam 0.25 MG TAB PO SCH (21:54)
[2018-09-24] MEDS: Famotidine 20 MG TAB PO SCH (21:55)
[2018-09-25 05:29] LABS: #Basophils 0.1 thou/uL (0.0-0.2); #Eosinphils 0.8 thou/uL (0.0-0.7); #Lymphocytes 1.8 thou/uL (1.20-3.40); #Monocytes 0.8 thou/uL (0.11-0.59); %Eosinophils 10.7 % (0.0-10.0); %Lymphocytes 24.2 % (21.0-51.0); %Monocytes 10.3 % (0.0-10.0); %Neutrophils 53.9 % (42.0-75.0); Mean Corpuscular HGB CONC 32.6 g/dL (32.0-36.0); Mean Corpuscular Hemoglobin 29.2 pg (27.0-31.0); Mean Corpuscular Volume 89.5 fL (78.0-98.0); Mean Platelet Volume 7.2 fL (7.4-10.4); Platelet Count 254 thou/uL (130-400); Red Blood Cell (RBC) Count 3.43 mill/uL (4.20-5.40); White Blood Cell (WBC) Count 7.4 thou/uL (4.8-10.8)
[2018-09-25] MEDS: Levothyroxine Sodium 125 MCG TAB PO SCH (05:30)
[2018-09-25 05:45] LABS: Anion Gap 12 mmol/L (10-20); BUN (Urea Nitrogen) 18 mg/dL (9.8-20.1); Calc. Creatinine Clearance 52 mL/min (70-130); Calcium 8.9 mg/dL (7.8-10.44); Carbon Dioxide 25 mmol/L (23-31); Chloride 103 mmol/L (98-107); Estimated GFR-MDRD 43; Glucose 104 mg/dL (83-110); Potassium 4.3 mmol/L (3.5-5.1); Sodium 136 mmol/L (136-145)
[2018-09-25] MEDS: Budesonide 0.25 MG/2 ML NEB NEB SCH ×2 (06:37→18:14)
[2018-09-25] MEDS: cefTRIAXone\\ROCEPHIN 2 GM in Sodium Chloride 0.9% 100 ML IVPB SCH (10:33)
[2018-09-25] MEDS: Gabapentin 400 MG CAP PO SCH ×2 (10:33→12:52)
[2018-09-25] MEDS: Ascorbic Acid 500 mg Chewable Tablet PO SCH (10:35)
[2018-09-25] MEDS: Azithromycin 250 MG TAB PO SCH (10:35)
[2018-09-25] MEDS: Amlodipine 10 MG TAB PO SCH (10:35)
[2018-09-25] MEDS: FLUoxetine HCl 20 MG CAP PO SCH (10:35)
[2018-09-25] MEDS: Cholecalciferol (Vitamin D3) 400 UNITS TAB PO SCH (10:35)
[2018-09-25] MEDS: guaiFENesin ER 600 MG TAB PO SCH (10:36)
[2018-09-25] MEDS: Saccharomyces boulardii 250 MG CAP PO SCH (10:36)
[2018-09-25] MEDS: TROSPIUM 20 MG TABLET PO SCH (10:36)
[2018-09-25] MEDS: Heparin 5,000 UNITS/ML VIAL SC SCH ×2 (10:36→17:00)
[2018-09-25] MEDS: Multivitamin W/ Minerals 1 TAB PO SCH (10:36)
[2018-09-25] MEDS: Valsartan 80 MG TAB PO SCH (10:37)
[2018-09-25] MEDS: HYDROcodone/Acetaminophen 10/325 mg Tablet PO PRN (10:39)
--- NOTE | 2018-09-25 10:50 | PQF ---
DATE: 09-25-18 ATTN: DR. PURVI HANKINS Please exercise your independent, professional judgment in responding to the clarification form. Clinical indicators are provided on the bottom of this form for your review Please check appropriate box(s): [ ] Acute Renal Failure (ARF) / Acute Kidney Injury (NIKI) [ ] Acute on Chronic Renal Failure please specify Stage of CKD (see below) [ x ] Other diagnosis __CKD III [ ] Unable to determine In addition, please specify: Present on Admission (POA): [ ] Yes [ ] No [ ] Unable to determine National Kidney Foundation Guidelines for CKD Staging Stage I Kidney damage with normal or increased GFR GFR > 90 Stage II Kidney damage with mildly decreased GFR GFR 60-89 Stage III Kidney damage with moderately decreased GFR GFR 30-59 Stage IV Kidney damage with severely decreased GFR GFR 16-29 Stage V Kidney failure GFR<15 ESRD End Stage Renal Disease On dialysis Acute Renal Failure/Acute Kidney Failure defined as: Increases in SCr by (>) 0.3 mg/dl within 48 hours OR- Increases in SCr by (>) 1.5 times baseline, known or presumed to have occurred within the prior 7 days OR- Urine volume < 0.5 ml/kg/hour for 6 hours (KDIGO supplement 2012 for RIFLE/KAYLIN criteria) For continuity of documentation, please document condition throughout progress notes and discharge summary. Thank You. CLINICAL INDICATORS - SIGNS / SYMPTOMS / LABS GFR: 09-19-18: 36 09-20-18: 52 09-21-18: 57 09-22-18: 50 09-24-18: 51 09-25-18: 43 CREATININE: 09-19-18: 1.41 09-20-18: 1.03 18: 0.95 18: 1.07 18: 1.05 18: 1.20 BUN: 09-19-18: 29 09-20-18: 28 18: 21 09-22-18: 18 09-24-18: 15 09-25-18: 18 ER: HX OF HYPERLIPIDEMIA, A FIB, AKF, SHE IS LETHARGIC NOT ACTING HERSELF H&P: RENAL INSUFFICIENCY, CHRONIC PN DR. ASHLEY 09-22-18: RENAL INSUFFICIENCY, IMPROVED WITH IV FLUIDS RISK FACTORS: ER: ON HOME LASIX, NORVASC, NORCO TREATMENTS: ER; NS BOLUS X2 (This form is maintained as a part of the permanent medical record) 2014 [email or web address] All Rights Reserved [email or web address] [email or web address] Office: [phone] MTDD
[2018-09-25 16:55] VITALS: BP 99/58; TEMP 98.3
[2018-09-25] MEDS: Phenergan/Codeine 10-6.25mg/5ml UDCUP PO PRN (17:03)
--- NOTE | 2018-09-25 17:06 | CON ---
DATE OF CONSULTATION: TYPE OF CONSULTATION: Cardiology PRIMARY CARE DOCTOR: Deepak Ricardo MD PRIMARY MARKET DEVELOPMENT TRAINER: Yareli Lino MD REFERRING PHYSICIAN: REASON FOR CARDIOLOGY CONSULT: 20 beats of SVT. HISTORY OF PRESENT ILLNESS: Ms. Santizo is a very pleasant 78-year-old female with a significant history of multiple episodes of pneumonia, tooth infection, history of AFib, SVT, hypertension, diastolic heart failure, hyperlipidemia, hypothyroidism, anxiety, and depression. The patient admitted to hospital due to recurrent pneumonia/bronchitis with the temperature 101. At this moment today, she is doing well. She is having intermittent cough, but the patient reported her coughing is much better today. The patient's Cardiology consult was ordered for 20 beats of SVT around midnight on September 25, 2018. The patient was symptomatic. She slept very well last night, and according to telemetry record, she has not had any SVT episodes after this episode. At this moment, the patient denied any cardiac complaints, dizziness, lightheadedness, chest pain, or discomfort of her chest or numbness to left upper arm or nausea, vomiting. She continue having cough, however, again the patient doing well per the patient's report. The patient had been on flecainide last year September 2017 for history of SVT, however, that medication was discontinued due to the worsening of creatinine level. She was doing well without the medication. An echocardiogram was done in the December 2017 with EF 55% to 60%, mild aortic valve regurgitation grade 1 suggestive of diastolic dysfunction. The patient had a electrophysiology study for SVT. PAST MEDICAL HISTORY: 1. History of SVT. 2. History of atrial fibrillation. 3. History of multiple episodes of pneumonia. 4. Hypertension. 5. Chronic diastolic dysfunction. 6. Hyperlipidemia. 7. Hypothyroidism. 8. Anxiety and depression. PAST SURGICAL HISTORY: Hysterectomy, appendectomy, back surgery, cholecystectomy. FAMILY HISTORY: Positive family history of heart disease, father has a myocardial infarction. SOCIAL HISTORY: She lives with her . She has 7 children. They are doing well, however, 2 of her grandchildren has a Alejandro-Pick type C disease, and the patient is actually chair-bound that she cannot walk, but she can transfer from bed to wheelchair. The is taking care of the patient. She denied any tobacco, EtOH, or illicit drug abuse. REVIEW OF SYSTEMS: Twelve point review of systems was negative unless otherwise mentioned in the HPI. PHYSICAL EXAMINATION: VITAL SIGNS: Blood pressure 99/53, temperature 98.5, heart rate 106 with sinus rhythm, respiratory rate 20, and O2 saturation 93% on 2 L nasal canula. GENERAL: The patient is alert and oriented x4, not in acute distress. HEENT: Head; normocephalic or atraumatic. Eyes; extraocular muscle movements are intact. ENT and mouth, oral and nasal mucosa are moist without lesions. NECK: No JVD. Neck is supple. Normal range of motion. RESPIRATORY: Lung is clear to the left side, but already diminished to the right lobe. CARDIOVASCULAR: Regular rate and rhythm. Normal S1 and S2. There is no S3 or S4. No significant murmurs, heaves, or thrill noted. 2+ pulses are present at bilateral upper extremities. They have 2+ in bilateral dorsal pedis, but unable to check the popliteal or femoral pulses, because the patient unable to lower extremities. No edema. Carotid pulses are present without bruit or thrill. ABDOMEN: Soft, nontender. No masses palpated. Bowel sounds are present. SKIN: Warm and dry. No lesion, bruise, or rash noted. MUSCULOSKELETAL: The patient is able to sit up by herself, but the patient is not able to walk. PSYCHIATRIC: The patient's mood is appropriate. NEUROLOGIC: The patient is alert and oriented x4. Nonfocal. ASSESSMENT AND PLAN: 1. Twenty beats of supraventricular tachycardia. The patient's condition stable at this moment. There are no more supraventricular tachycardia episodes since last night. The patient is not on the flecainide, antiarrhythmic, or beta-jacqui at this moment. We would like to start metoprolol 25 mg twice a day. Since the patient's blood pressure is stable, we would like to stop Norvasc at this moment and we would like to continue to monitor on the telemetry. 2. Healthcare-acquired pneumonia. The patient's condition is stable per the patient and family, which is managed by the patient's primary care doctor. 3. History of atrial fibrillation. The patient's heart rate have remained in the sinus rhythm and the sinus tachycardia. We would like to start metoprolol 25 mg twice a day and we would like to continue to monitor on the telemetry. She is not on any anticoagulant or even aspirin at this moment. 4. Hypertension. The patient's blood pressure is being stable at this moment, however, metoprolol 25 mg twice a day is going to be started from [facility]. We would like to stop amiodarone at this moment. We would like to continue to monitor. 5. Chronic diastolic heart failure. The patient's condition stable at this moment. She is on Lasix 20 mg daily as needed. We would like to continue to monitor. 6. Hyperlipidemia. On Lipitor 10 mg once a day. 7. Hypothyroidism which is managed by primary care doctor. 8. Anxiety and depression. Her condition is stable at this moment. Thank you for allowing the Cardiology Service to participate in the care of this patient. We would like to follow along with the patient's care team and make further recommendations as appropriate. Job ID: [id number]
[2018-09-25] MEDS ORDERED: Metoprolol Tartrate 25 MG TAB PO SCH ×2 (21:00)
--- NOTE | 2018-09-26 03:36 | DIS ---
DATE OF ADMISSION: 09/19/2018 DATE OF DISCHARGE: 09/25/2018 DISCHARGE DIAGNOSES: 1. Left lower lobe community-acquired bacterial pneumonia, suspected gram-positive cocci. 2. Acute hypoxic respiratory failure secondary to #1. 3. Tracheobronchomalacia, chronic. 4. Chronic obstructive pulmonary disease. 5. Chronic normocytic anemia. 6. Nonambulatory status. CONSULTATION: Dr. Landry Burks with Infectious Disease Service. PERTINENT LAB AND X-RAY FINDINGS: Sodium ranged between 131 to 137, creatinine ranged between 0.95 to 1.41. Estimated GFR ranged between 36 to 57. Magnesium level 2.0. BNP 102. CBC showed a white blood cell count ranged between 6.8 to 23.3, hemoglobin ranged between 10.0 to 10.9. Urine Legionella pneumophila antigen negative on 09/24/2018. Urine streptococcal pneumoniae antigen negative on 09/24/2018. Blood cultures x2 dated 09/19/2018 showed no growth at 48 hours. Urine culture dated 09/19/2018 showed no growth at 48 hours. Portable chest x-ray dated 09/19/2018 showed hypoinflation of bilateral lung chance. Left greater than right increased pulmonary density in the lung base. CT of the chest dated 09/19/2018 showed no acute cardiopulmonary process. HOSPITAL COURSE: The patient was initially admitted to the telemetry unit after presenting with increased shortness of breath. The patient with chronic obstructive pulmonary disease and tracheobronchomalacia, presenting with fever and chills with associated hypoxemia. The patient was treated for left lower lobe infiltrate concerning for pneumonia, on IV cefepime. The patient received general pulmonary supportive management in addition to oxygen supplementation and bronchodilator therapy. The patient continued to receive a pulmonary supportive measures throughout the hospital course and was evaluated by the Infectious Disease Service due to a history of recurrent pneumonia and bronchitis in the context of tracheobronchomalacia. Current recommendations are to transition to oral third-generation cephalosporin to complete a 2-week course of antibiotics after discharge. The patient was evaluated for home oxygen need; however, remained in the lower to mid 90% range on room air. Overall, the patient did remain clinically stable, tolerating regular oral intake with stable vital signs at the time of discharge. I have examined the patient at time of discharge and discussed followup instructions. The patient verbalizes her understanding and in agreement, ready for discharge on 09/25/2018. DISCHARGE MEDICATIONS: 1. ProAir RespiClick 90 mcg inhaled q.4 hours p.r.n. 2. Alprazolam 0.25 mg p.o. at bedtime. 3. Vitamin C 500 mg p.o. daily. 4. Lipitor 10 mg p.o. at bedtime. 5. Budesonide 0.25 mg nebulized b.i.d. 6. Vitamin D3 units p.o. daily. 7. Nexium 40 mg p.o. daily. 8. Fluoxetine 20 mg p.o. daily. 9. Lasix 20 mg p.o. daily. 10. Gabapentin 1600 mg p.o. b.i.d. and 800 mg p.o. at noon. 11. Moriarty 10/325 mg one tablet p.o. q.4 to 6 hours p.r.n. 12. Levothyroxine 125 mcg p.o. daily. 13. Meloxicam 15 mg p.o. daily. 14. Multivitamin one tablet p.o. daily. 15. Klor-Con 10 mEq p.o. daily. 16. Tolterodine tartrate 4 mg p.o. daily. 17. Diovan 320 mg p.o. daily. 18. Zantac 150 mg p.o. at bedtime. 19. Omnicef 300 mg p.o. b.i.d. x14 days. 20. Lopressor 25 mg p.o. b.i.d. FOLLOWUP: The patient is to follow up with Dr. Deepak Ricardo within 7 days of discharge. CONDITION ON DISCHARGE: Guarded. ACTIVITY: Ad-pat. Nonambulatory status. DIET: Heart healthy. CODE STATUS: Do not resuscitate. DISPOSITION: Home, 09/25/2018. TIME SPENT: Total time preparing and coordinating discharge is 37 minutes. Job ID: [id number]
--- NOTE | 2018-09-26 07:34 | CON ---
DATE OF CONSULTATION: 09/25/2018 ADDENDUM: INDICATION FOR CONSULTATION: A 78-year-old female with palpitations, short runs of supraventricular tachycardia. Please refer to the note that is already dictated by my nurse practitioner, Elisha Devries. HISTORY OF PRESENT ILLNESS: This is a 78-year-old female, who has multiple medical problems. She has a history of pneumonia. She had been bed-bound for the last several years. She is taken care by her . She has multiple medical problems such as diastolic heart failure, hypertension, history of atrial fibrillation, SVT, anxiety, depression, hypothyroidism, and hyperlipidemia. She was doing quite well until she was admitted with pneumonia. She has been treated with antibiotics. She was actually getting better and then she was noted to have short run of supraventricular tachycardia. She apparently was asymptomatic. She was sleeping. She has had problems in the past, but she has had no further significant episodes of supraventricular tachycardia. At this time, we would continue to monitor her. There is no indication that we need to treat her with any significant medication. She had been on flecainide in the past and we could resume this medication at 50 mg twice a day. It was decreased due to some renal insufficiency in the past, but appears not this time. Her renal function has remained stable. She has had a history also of atrial fibrillation in the past and this may decrease the atrial fibrillation by resuming her flecainide. She had an echocardiogram done earlier this year, which showed a normal ejection fraction with mild aortic valve regurgitation and diastolic dysfunction. At this time, I would continue her medications as they are. PAST MEDICAL HISTORY: Please refer to the notes dictated by the nurse practitioner. SOCIAL HISTORY: Please refer to the notes dictated by the nurse practitioner. FAMILY HISTORY: Please refer to the notes dictated by the nurse practitioner. REVIEW OF SYSTEMS: Please refer to the notes dictated by the nurse practitioner. MEDICATIONS: Please refer to the notes dictated by the nurse practitioner. ALLERGIES: PLEASE REFER TO THE NOTES DICTATED BY THE NURSE PRACTITIONER. PHYSICAL EXAMINATION: VITAL SIGNS: Reveals blood pressure 99/53. She is afebrile. Heart rate is 100. She has a sinus rhythm, respiratory rate 20, and O2 saturations in the 90% range to 93%. HEENT: Shows the head to be normocephalic and atraumatic. Carotid pulses are present. Did not hear any significant bruits. CHEST: Actually clear on the left side. She does have some decreased breath sounds in the right base. Otherwise, no significant abnormalities were noted. No wheezing was noted. CARDIOVASCULAR: Reveals a regular rate and rhythm. Normal S1 and S2. I cannot hear any significant S3 or S4. There were no significant murmurs, heaves, thrills, bruits or rubs. ABDOMEN: Abdominal exam shows obesity. Positive bowel sounds are present. EXTREMITIES: Show no clubbing, cyanosis, or edema. Pedal pulses are present. NEUROLOGIC: The patient appears to be intact. SKIN: Warm and dry. IMPRESSION: 1. Short run of supraventricular tachycardia with a history of atrial fibrillation in the past. We could consider starting her on flecainide. She did have bradycardia in the past with some metoprolol. We will need to be very careful with this medication should she have further episodes of bradycardia with the metoprolol or any other beta jacqui. 2. History of hypertension. This remains stable at this time. 3. Pneumonia. She is doing quite well. This is improved. She is on antibiotics. She has a history of chronic 1/3 diastolic heart failure. This also remains stable at this time and does not appear to be a significant problem for the patient. 4. Hyperlipidemia. She will continue on her statin medications. Otherwise, from a cardiac standpoint, she appears to be stable. We are more than happy to continue and to follow the patient with you and we will consider medical management. There is no indication that we need to do any further significant intervention on this lady or further cardiac testing at this time. Job ID: [id number]
== END 2018-09-25 19:45 | disposition home or self-care (01) | DRG 193 ==
LOC: ERS 12:16 → 2NO 17:19
PROVIDERS: ADMIT Internal Medicine; ATTEND Internal Medicine
DX: J15.9 Unspecified bacterial pneumonia (principal); J96.01 Acute respiratory failure with hypoxia; E87.1 Hypo-osmolality and hyponatremia; I47.1 Supraventricular tachycardia; I13.0 Hypertensive heart and chronic kidney disease with heart failure and stage 1 through stage 4 chronic kidney disease, or unspecified chronic kidney disease; I50.32 Chronic diastolic (congestive) heart failure; J20.9 Acute bronchitis, unspecified; Z87.01 Personal history of pneumonia (recurrent); I48.91 Unspecified atrial fibrillation; E03.9 Hypothyroidism, unspecified; E78.5 Hyperlipidemia, unspecified; Z88.2 Allergy status to sulfonamides; Z66 Do not resuscitate; J39.8 Other specified diseases of upper respiratory tract; Z74.01 Bed confinement status; D64.9 Anemia, unspecified; F41.9 Anxiety disorder, unspecified; F32.9 Major depressive disorder, single episode, unspecified; Z79.891 Long term (current) use of opiate analgesic; Z79.51 Long term (current) use of inhaled steroids; K21.9 Gastro-esophageal reflux disease without esophagitis; N18.3 Chronic kidney disease, stage 3 (moderate)
CPT/HCPCS: 36415; 51701; 71045; 71250; 80048; 80053; 81003; 83605; 83735; 83880; 84145; 85025; 87040; 87086; 87899; 93005; 94640; 94760; 96361; 96365; 96367; A4353; J0692; J0696; J1644; J3370; J7050; J7620; J7626

== ENCOUNTER 2018-10-29 10:05 | Inpatient (IN) | payer MEDICARE, OTHER ==
[2018-10-29 10:43] LABS: Bilirubin Negative (Negative); Blood, Urine Negative (Negative); Clarity CLEAR (Clear); Glucose, Urine (Dipstick) Negative (Negative); Leukocyte Negative (Negative); Nitrite Negative (Negative); Protein, Urine (Dipstick) 30 mg/dL (Neg-Trace); Specific Gravity, Urine 1.011 (1.002-1.036); Urobilinogen 0.2 mg/dL (0.2-1.0)
[2018-10-29 10:46] LABS: Bacteria/HPF None Seen HPF (None Seen); Hyaline Casts/LPF 0-3 HYALINE CAST LPF (0-3 Hyaline); RBC/HPF None Seen HPF (0-3); Squamous Epithelial None Seen HPF (0-3); WBC/HPF None Seen HPF (0-3)
[2018-10-29] MEDS ORDERED: Piperacillin/Tazobactam 4.5 GM VIAL ONE (10:49)
[2018-10-29 11:00] LABS: Band 12 % (5-11); Eosinophils 2 % (0-10); Hemoglobin 12.6 g/dL (12.0-16.0); Lymphocytes 13 % (21-51); MDiff Complete? YES; Mean Corpuscular HGB CONC 32.3 g/dL (32.0-36.0); Mean Corpuscular Hemoglobin 29.1 pg (27.0-31.0); Mean Corpuscular Volume 90.1 fL (78.0-98.0); Mean Platelet Volume 7.9 fL (7.4-10.4); Monocytes 6 % (0-10); Neutrophil 66 % (42-75); Platelet Count 269 thou/uL (130-400); RBC Distribution Width 13.1 % (11.5-14.5); Red Blood Cell (RBC) Count 4.31 mill/uL (4.20-5.40)
[2018-10-29 11:01] LABS: ALT (SGPT) 24 U/L (8-55); AST (SGOT) 19 U/L (5-34); Albumin 3.9 g/dL (3.4-4.8); Alkaline Phosphatase 157 U/L (40-150); Anion Gap 17 mmol/L (10-20); BUN (Urea Nitrogen) 21 mg/dL (9.8-20.1); Bilirubin, Total 0.5 mg/dL (0.2-1.2); CK (CPK) 29 U/L (29-168); Calc. Creatinine Clearance 0 mL/min (70-130); Calcium 9.4 mg/dL (7.8-10.44); Carbon Dioxide 23 mmol/L (23-31); Chloride 98 mmol/L (98-107); Estimated GFR-MDRD 38; Globulin 3.8 g/dL (2.4-3.5); Glucose 117 mg/dL (83-110); Potassium 4.4 mmol/L (3.5-5.1); Protein, Total 7.7 g/dL (6.0-8.3); Sodium 134 mmol/L (136-145)
--- NOTE | 2018-10-29 11:39 | RAD ---
PORTABLE CHEST: Date: 10/29/18 PROVIDED CLINICAL HISTORY: Fever and difficulty breathing. FINDINGS: No comparisons. The cardiac silhouette appears enlarged. The left lung base is poorly visualized. This may be on the basis of cardiomegaly and left basilar pleural parenchymal opacity. Right lung appears clear. No evid ence for pneumothorax. Vascular calcifications are seen. IMPRESSION: Cardiomegaly and possible left basilar pleural and/or parenchymal opacity. POS: [facility]
[2018-10-29 14:21] LABS: Troponin I Less than 0.010 ng/mL (< 0.028)
[2018-10-29 14:49] LABS: Lactic Acid 1.4 mmol/L (0.5-2.2)
[2018-10-29] MEDS ORDERED: HYDROcodone/Acetaminophen 5/325 mg Tablet ONE (14:49)
[2018-10-29 17:38] VITALS: BMI 31.8
[2018-10-29] MEDS ORDERED: Piperacillin/Tazobactam 4.5 GM in Sodium Chloride 0.9% 100 ML IVPB SCH (18:00)
[2018-10-29] MEDS ORDERED: Acetaminophen 650 MG Suppository PR PRN (18:16)
[2018-10-29] MEDS ORDERED: Diabetic Tussin 200 MG/10 ML UDCUP PO PRN (18:16)
[2018-10-29] MEDS ORDERED: Ondansetron ODT 4 MG TAB PO PRN (18:16)
[2018-10-29] MEDS ORDERED: Ondansetron PF 4 MG/2 ML Vial IVP PRN (18:16)
[2018-10-29] MEDS ORDERED: Acetaminophen 500 MG TAB PO PRN (18:16)
[2018-10-29 18:31] LABS: Troponin I 0.022 ng/mL (< 0.028)
[2018-10-29] MEDS: Budesonide 0.5 MG/2 ML NEB INH SCH (19:17)
--- NOTE | 2018-10-29 20:59 | HP ---
PRIMARY CARE PROVIDER: Dr. Deepak Ricardo. CHIEF COMPLAINT: Fever and shortness of breath. HISTORY OF PRESENT ILLNESS: This is a 78-year-old female, who presents to [facility] Emergency Department complaining of fever up to 102.9 degrees Fahrenheit in the last 24 hours. The patient with multiple admissions for recurrent pneumonia and hypoxic respiratory failure. The patient was most notably admitted to [facility] between 09/19/2018 to 09/25/2018 for suspected left lower lobe bacterial pneumonia with associated hypoxic respiratory failure. Patient also with significant history of tracheobronchomalacia and chronic obstructive pulmonary disease. Patient currently remains at home with family and her , unable to ambulate, which is chronic. Patient needs assistance for short distance transfers, meal preparation, and general self-care. The daughter reports patient developed a fever within the last 24 hours abruptly with associated increased shortness of breath and general malaise. The patient apparently took Motrin to assist with the fever, but also noted increased coughing. Due to the patient's history of chronic lung conditions and recent admission to [facility], patient was evaluated by EMS personnel. Patient was noted at 89% on room air and given DuoNebs by EMS personnel. In the emergency room, patient underwent chest imaging showing persistent opacification in the left lower lung base similar in appearance to previous chest imaging in September 2018. Patient was also noted with hypoxemia, tachycardia, tachypnea, and a fever of 102.9 degrees Fahrenheit. Patient was placed on BiPAP noninvasive mechanical ventilation and received Levaquin 750 mg x1 dose followed by vancomycin and Zosyn. Patient received bronchodilator therapy and intravenous normal saline x1 L. Patient was transferred to the intermediate care unit for further evaluation. PAST MEDICAL HISTORY: 1. Recurrent bacterial pneumonia requiring hospitalizations recently 09/19/2018 through 09/25/2018. 2. Chronic obstructive pulmonary disease. 3. Acute on chronic hypoxic respiratory failure. 4. Tracheobronchomalacia, chronic. 5. Chronic deconditioning and nonambulatory status. 6. Hypertension. 7. History of Clostridium difficile colitis. 8. History of atrial fibrillation. 9. Hypothyroidism. 10. Hyperlipidemia. PAST SURGICAL HISTORY: 1. Status post appendectomy. 2. Status post hysterectomy. 3. Status post cholecystectomy. CURRENT MEDICATIONS: Based on recent discharge 09/25/2018. 1. ProAir RespiClick 90 mcg inhaled q.4 hours p.r.n. 2. Alprazolam 0.25 mg p.o. at bedtime. 3. Vitamin C 500 mg p.o. daily. 4. Lipitor 10 mg p.o. at bedtime. 5. Budesonide 0.25 mg nebulized b.i.d. 6. Vitamin D3 p.o. daily. 7. Nexium 40 mg p.o. daily. 8. Fluoxetine 20 mg p.o. daily. 9. Lasix 20 mg p.o. daily. 10. Gabapentin 1600 mg p.o. b.i.d. and 800 mg p.o. at noon. 11. [place] 10/325 mg 1 tab p.o. q.4 to 6 hours p.r.n. 12. Levothyroxine 125 mcg p.o. daily. 13. Meloxicam 15 mg p.o. daily. 14. Multivitamin 1 tablet p.o. daily. 15. Klor-Con 10 mEq p.o. daily. 16. Tolterodine tartrate 4 mg p.o. daily. 17. Diovan 320 mg p.o. daily. 18. Zantac 150 mg p.o. at bedtime. 19. Lopressor 25 mg p.o. b.i.d. ALLERGIES: BACTRIM. PLEASE SEE PREVIOUS LIST, WHICH IS EXTENSIVE. FAMILY HISTORY: No inheritable disease per patient's report. SOCIAL HISTORY: Patient resides with her at home in [place], [place]. No current alcohol, tobacco, or illicit drug use. Nonambulatory status chronically. Receives assistance for all activities of daily living. Accompanied by her daughter in the hospital. REVIEW OF SYSTEMS: CONSTITUTIONAL: Negative for weight loss or gain, ability to conduct usual activities. SKIN: Negative for rash, itching. EYES: Negative for double vision, pain. ENT/MOUTH: Negative for nose bleeding, neck stiffness, pain, tenderness. CARDIOVASCULAR: Negative for palpitations, dyspnea on exertion, orthopnea. RESPIRATORY: Negative for shortness of breath, wheezing, cough, hemoptysis, fever or night sweats. GASTROINTESTINAL: Negative for poor appetite, abdominal pain, heartburn, nausea, vomiting, constipation, or diarrhea. GENITOURINARY: Negative for urgency, frequency, dysuria, nocturia. MUSCULOSKELETAL: Negative for pain, swelling. NEUROLOGIC/PSYCHIATRIC: Negative for anxiety, depression. ALLERGY/IMMUNOLOGIC: Negative for skin rash, bleeding tendency. Review of systems is otherwise negative, except as stated per HPI. PHYSICAL EXAMINATION: VITAL SIGNS: on admission, blood pressure 125/73, pulse 105, respiratory rate 30, temperature 99.7 degrees Fahrenheit, and O2 saturation 89% on room air. GENERAL APPEARANCE: This is a 78-year-old female, minimally responsive, nods to questions, on current BiPAP noninvasive mechanical ventilation, in moderate respiratory distress. HEENT: Pupils are equal, round, and reactive to light and accommodation. Extraocular muscles are intact. No scleral icterus. No conjunctival injection. Nares patent. OP is clear. BiPAP face mask in place. NECK: Supple. No cervical adenopathy. No thyromegaly. No carotid bruits. No JVD appreciated. Cervical spine with full active and passive range of motion. No meningeal signs noted. CHEST: Diminished breath sounds in the bases bilaterally. Scattered coarse sounds in the bases. CARDIOVASCULAR EXAM: S1 and S2 with tachycardia. No murmur, rub, or gallop appreciated. ABDOMEN: Obese, soft, nontender, and nondistended. Bowel sounds are positive in all 4 quadrants. There is no hepatosplenomegaly. No abdominal bruits. No rebound or guarding appreciated. EXTREMITIES: Warm and dry with fair turgor. Mild edema to the ankle region bilaterally. Pulses palpable distally at the dorsalis pedis, posterior tibial, and popliteal arteries bilaterally. Capillary refill less than 2 seconds. NEUROLOGIC: Cranial nerves 2 through 12 are grossly intact. Patient is lethargic, but nods to questions. PERTINENT LAB AND X-RAY FINDINGS: Sodium 134, potassium 4.4, chloride 98, anion gap of 17, BUN 21, creatinine 1.35, estimated GFR of 38, and glucose 117. Lactic acid level ranged between 1.4 to 2.3. LFTs within normal limits. BNP 291. Troponin I negative x2. CBC showed a white blood cell count of 27,000, hemoglobin 13, hematocrit 39, platelet count 269 with 66% neutrophils and 12% bands. Urinalysis positive for protein. Portable chest x-ray dated 10/29/2018 showed cardiomegaly with questionable left basilar pleural opacity. EKG dated 10/29/2018 by my interpretation shows sinus tachycardia with heart rates in the 115s. Attenuated R-waves noted in the precordial leads. Left axis deviation noted. Baseline artifact noted. ASSESSMENT/PLAN: 1. Sepsis. Patient meets sepsis protocol with tachycardia, leukocytosis, fever, tachypnea, and lactic acid elevation. Suspect pulmonary source given patient's prior history of multiple admissions for pneumonia and chronic obstructive pulmonary disease. See management. Continue general sepsis protocol. 2. Left lower lobe bacterial pneumonia suspected. Gram-positive cocci as potential etiology. We will continue cefepime 2 g IV q.12 hours with additional Levaquin 750 mg IV daily. Provide pulmonary supportive management with bronchodilator therapy and DuoNebs. Add Solu-Medrol 40 mg IV q.6 hours. 3. Acute on chronic hypoxic respiratory failure. We will continue BiPAP noninvasive mechanical ventilation. Titrate to clinical response. Suspect multifactorial given sepsis and left lower lobe bacterial pneumonia. Consult Pulmonology Service in the a.m. 4. Acute exacerbation of chronic obstructive pulmonary disease. We will continue DuoNebs q.4 hours. Add Pulmicort 0.5 mg inhaled b.i.d. Continue Solu-Medrol 40 mg IV q.6 hours. 5. Acute kidney injury. Suspect volume mediated in conjunction with sepsis. Avoid nephrotoxic agents and contrast media. Repeat creatinine in the a.m. 6. Deconditioning. Chronic nonambulatory status. Continue bedrest. General fall risk precautions. 7. Prophylaxis. SCDs while in bed. Pepcid 20 mg IV q.12 hours. CODE STATUS: Do not attempt resuscitation confirmed with the patient and family. Surrogate medical decision maker is patient's . Job ID: [id number]
[2018-10-29] MEDS: Famotidine/PF 20 mg/2ml Vial SLOW IVP SCH (21:06)
[2018-10-29] MEDS: Sodium Chloride 0.9% 1,000 ML IV SCH (21:06)
[2018-10-29] MEDS: Cefepime 2 GM in Sodium Chloride 0.9% 100 ML IVPB SCH (21:06)
[2018-10-30] MEDS: HYDROcodone/Acetaminophen 10/325 mg Tablet PO PRN ×6 (01:43→22:52)
[2018-10-30 05:51] LABS: Anion Gap 17 mmol/L (10-20); BUN (Urea Nitrogen) 24 mg/dL (9.8-20.1); Calc. Creatinine Clearance 51 mL/min (70-130); Carbon Dioxide 20 mmol/L (23-31); Chloride 103 mmol/L (98-107); Estimated GFR-MDRD 41; Glucose 175 mg/dL (83-110); Potassium 4.2 mmol/L (3.5-5.1); Sodium 136 mmol/L (136-145)
[2018-10-30 05:52] LABS: Band 25 % (5-11); Hemoglobin 11.1 g/dL (12.0-16.0); Lymphocytes 5 % (21-51); MDiff Complete? YES; Mean Corpuscular HGB CONC 32.7 g/dL (32.0-36.0); Mean Corpuscular Hemoglobin 29.3 pg (27.0-31.0); Mean Corpuscular Volume 89.6 fL (78.0-98.0); Mean Platelet Volume 7.6 fL (7.4-10.4); Monocytes 1 % (0-10); Neutrophil 69 % (42-75); Platelet Count 231 thou/uL (130-400); RBC Distribution Width 13.2 % (11.5-14.5); White Blood Cell (WBC) Count 22.6 thou/uL (4.8-10.8)
[2018-10-30] MEDS: Budesonide 0.5 MG/2 ML NEB INH SCH ×2 (06:59→19:33)
--- NOTE | 2018-10-30 09:08 | PDOC.PN ---
- Subjective Encounter Start Date: 10/30/18 Encounter Start Time: 10:00 Subjective: Patient reports significant improvement in SOB since admission, but still -: with cough/SOB. No fever. Off Bipap since got to IMCU. - Objective Resuscitation Status - Order Detail: 10/29/18 18:04 Resuscitation Status Routine Resuscitation Status: DNAR: NO Resuscitation Discussed with: Patient MAR Reviewed: Yes Vital Signs & Weight: Vital Signs (12 hours) Temp Pulse Resp BP Pulse Ox 10/30/18 08:02 95 10/30/18 07:50 98.9 F 112 H 16 166/79 H 95 10/30/18 06:57 115 H 16 96 10/30/18 04:59 98.6 F 111 H 22 H 126/63 95 10/30/18 04:00 97 10/30/18 02:19 111 H 16 94 L 10/29/18 23:50 99.4 F 106 H 20 117/63 100 Weight Weight 192 lb 3 oz I&O: 10/29/18 10/30/18 10/31/18 06:59 06:59 06:59 Intake Total 957 Balance 957 Result Diagrams: 10/30/18 05:23 10/30/18 05:23 Phys Exam - Physical Examination Constitutional: NAD HEENT: moist MMs Respiratory: no wheezing Occ rhonchi in LLL Cardiovascular: RRR, no significant murmur Gastrointestinal: soft, positive bowel sounds Neurological: non-focal, moves all 4 limbs Psychiatric: normal affect, A&O x 3 Dx/Plan (1) Sepsis Code(s): A41.9 - SEPSIS, UNSPECIFIED ORGANISM Status: Acute Comment: Due to pneumonia (2) Bacterial pneumonia Code(s): J15.9 - UNSPECIFIED BACTERIAL PNEUMONIA Status: Acute Comment: [facility] , Dr. Farrell consulted, on Cefepime and Levaquin started 10/29/2018 (3) Acute and chronic respiratory failure Code(s): J96.20 - ACUTE AND CHR RESP FAILURE, UNSP W HYPOXIA OR HYPERCAPNIA Status: Acute Qualifiers: Respiratory failure complication: hypoxia Qualified Code(s): J96.21 - Acute and chronic respiratory failure with hypoxia Comment: Bipap in ER (4) Acute exacerbation of chronic obstructive pulmonary disease (COPD) Code(s): J44.1 - CHRONIC OBSTRUCTIVE PULMONARY DISEASE W (ACUTE) EXACERBATION Status: Acute Comment: steroids, nebs, pulmicort, abx (5) Renal failure, acute Status: Acute Comment: Uncertain baseline, improved with fluids today - Plan cont current plan of care, continue antibiotics, PT/OT, DVT proph w/SCDs Can be transfered to medical * . - Discharge Day Encounter end time: 10:20 Pulmonology Consult: Meds - Medications MAR Reviewed: Yes Medications: Current Medications Acetaminophen (Tylenol) 1,000 mg PO Q6H PRN PRN Reason: Mild Pain (1-3) Acetaminophen (Tylenol) 650 mg DC Q4H PRN PRN Reason: Fever > 101 Hydrocodone Bitart/Acetaminophen ([place] 10/325) 1 tab PO Q4H PRN PRN Reason: Moderate Pain (4-6) Last Admin: 10/30/18 06:04 Dose: 1 tab Albuterol/Ipratropium (Duoneb) 3 ml NEB [id number] [facility] Last Admin: 10/30/18 06:57 Dose: 3 ml Budesonide (Pulmicort Neb Solution) 0.5 mg INH BID-RT [facility] Last Admin: 10/30/18 06:59 Dose: 0.5 mg Famotidine (Pepcid) 20 mg SLOW IVP Q12HR [facility] Last Admin: 10/29/18 21:06 Dose: 20 mg Guaifenesin (Robitussin Sf) 200 mg PO Q4H PRN PRN Reason: Cough Hydralazine HCl (Apresoline) 10 mg SLOW IVP Q4H PRN PRN Reason: SBP > 180 and HR < 70 Cefepime HCl 2 gm/ Sodium (Chloride) 100 mls @ 200 mls/hr IVPB Q12HR [facility] Last Admin: 10/29/18 21:06 Dose: 100 mls Levofloxacin 750 mg/ Device 150 mls @ 100 mls/hr IVPB 1200 [facility] Sodium Chloride (Normal Saline 0.9%) 1,000 mls @ 75 mls/hr IV .[id number] [facility] Last Admin: 10/29/18 21:06 Dose: 1,000 mls Methylprednisolone Sodium Succinate (Solu-Medrol) 40 mg IVP Q6HR [facility] Last Admin: 10/30/18 05:34 Dose: 40 mg Ondansetron HCl (Zofran Odt) 4 mg PO Q6H PRN PRN Reason: Nausea/Vomiting Ondansetron HCl (Zofran) 4 mg IVP Q6H PRN PRN Reason: Nausea/Vomiting - Allergies Allergies/Adverse Reactions: Allergies Allergy/AdvReac Type Severity Reaction Status Date / Time amoxicillin Allergy Verified 10/29/18 18:17 ciprofloxacin Allergy Verified 10/29/18 18:17 clavulanic acid Allergy Verified 10/29/18 18:17 [From Augmentin] clindamycin Allergy Verified 10/29/18 18:17 erythromycin base Allergy Verified 10/29/18 18:17 fentanyl Allergy Verified 10/29/18 18:17 Latex, Natural Rubber Allergy Verified 10/29/18 18:17 metolazone Allergy Verified 10/29/18 18:17 nalbuphine Allergy Verified 10/29/18 18:17 oxycodone Allergy Verified 10/29/18 18:17 Sulfa (Sulfonamide Allergy Verified 10/29/18 17:25 Antibiotics) sulfamethoxazole Allergy Verified 10/29/18 18:17 tramadol Allergy Verified 10/29/18 18:17 trimethoprim Allergy Verified 10/29/18 18:17 zolpidem Allergy Verified 10/29/18 18:17 POTASSIUM CLAVULANATE Allergy Uncoded 10/29/18 18:17
[2018-10-30] MEDS: Cefepime 2 GM in Sodium Chloride 0.9% 100 ML IVPB SCH ×2 (09:25→20:17)
[2018-10-30] MEDS: Famotidine/PF 20 mg/2ml Vial SLOW IVP SCH ×2 (09:25→20:18)
[2018-10-30] MEDS: Sodium Chloride 0.9% 1,000 ML IV SCH (09:59)
--- NOTE | 2018-10-30 10:50 | CON ---
DATE OF CONSULTATION: 10/30/2018 CONSULTING PHYSICIAN: Dr. Cespedes from the Hospitalist Service. REASON FOR CONSULTATION: Pneumonia. HISTORY OF PRESENT ILLNESS: This 78-year-old female, who has seen my partner, Dr. Hook in the past. She was hospitalized last night with increasing shortness of breath and congestion. She was initially placed on BiPAP, but that was apparently stopped upon arrival to the floor. She is still very weak. PAST MEDICAL HISTORY: 1. Multiple hospitalizations for pneumonia. 2. Chronic obstructive pulmonary disease. 3. History of respiratory failure. 4. Tracheobronchomalacia. 5. Hypertension. 6. C. difficile colitis. 7. Atrial fibrillation. 8. Hypothyroidism. 9. Hyperlipidemia. PAST SURGICAL HISTORY: 1. Appendectomy. 2. Hysterectomy. 3. Cholecystectomy. MEDICATIONS: Prior to admission, these were reviewed, see history and physical section of the chart. Notable pulmonary medications include ProAir. ALLERGIES: BACTRIM, AMOXICILLIN, CIPROFLOXACIN, CLAVULANIC ACID, CLINDAMYCIN, ERYTHROMYCIN, FENTANYL, LATEX, NATURAL RUBBER, , NALBUPHINE, OXYCODONE, SULFAMETHOXAZOLE, TRAMADOL, TRIMETHOPRIM, AND ZOLPIDEM. SOCIAL HISTORY: Lives at home with her in a chronic nonambulatory state using a wheelchair. Does not smoke. Does not use illicit drugs. Does not drink alcohol. PHYSICAL EXAMINATION: VITAL SIGNS: Temperature 98.9, pulse 112, respirations 16, O2 saturation 95% on 2 L, and blood pressure 166/79. GENERAL: She is awake and alert, and in no acute distress. HEENT: Unremarkable. NECK: No JVD or bruits. LUNGS: Coarse rhonchi heard worst in the posterior bases. CARDIAC: S1 and S2. Slightly tachycardic. No murmur. ABDOMEN: Soft and nontender. EXTREMITIES: No edema. LABORATORY DATA: Sodium 136, potassium 4.2, BUN 24, creatinine 1.2, and glucose 175. White blood cell count 22.6, hematocrit 34.1, and platelet count 231 with 69% neutrophils and 25% bands. Chest x-ray shows left lower lobe infiltrative changes. ASSESSMENT: 1. Left lower lobe pneumonia. 2. Deconditioning. 3. Sepsis syndrome. 4. Other multiple medical problems listed above. PLAN: She can be transferred out to the floor to continue antibiotics as her acute respiratory failure stage has resolved. She will need to be monitored closely. Her prognosis is guarded. Job ID: [id number]
[2018-10-30] MEDS: ALPRAZolam 0.25 MG TAB PO PRN (21:40)
[2018-10-31] MEDS: Sodium Chloride 0.9% 1,000 ML IV SCH ×2 (01:30→17:24)
[2018-10-31] MEDS: Budesonide 0.5 MG/2 ML NEB INH SCH ×2 (06:30→18:10)
--- NOTE | 2018-10-31 07:10 | PDOC.PN ---
- Subjective Encounter Start Date: 10/31/18 Encounter Start Time: 11:10 Subjective: Patient reports some improvement in shortness of breath. Still -: requiring oxygen but no need for Bipap. No fever. No CP. - Objective Resuscitation Status - Order Detail: 10/29/18 18:04 Resuscitation Status Routine Resuscitation Status: DNAR: NO Resuscitation Discussed with: Patient MAR Reviewed: Yes Vital Signs & Weight: Vital Signs (12 hours) Temp Pulse Resp BP Pulse Ox 10/31/18 06:31 97 10/31/18 06:29 118 H 20 97 10/31/18 04:20 98.6 F 114 H 20 158/76 H 93 L 10/31/18 01:37 114 H 20 93 L 10/31/18 00:00 98.4 F 113 H 18 143/67 H 97 10/30/18 22:41 110 H 20 95 10/30/18 20:00 98 10/30/18 19:51 98.2 F 100 18 149/71 H 98 10/30/18 19:35 76 20 92 L 10/30/18 19:33 76 20 92 L Weight Weight 192 lb 3 oz I&O: 10/30/18 10/31/18 11/01/18 06:59 06:59 06:59 Intake Total 957 855 Output Total 400 Balance 957 455 Result Diagrams: 10/30/18 05:23 10/30/18 05:23 Phys Exam - Physical Examination Constitutional: NAD HEENT: moist MMs Respiratory: no wheezing, no rales, no rhonchi, clear to auscultation bilateral Cardiovascular: RRR Gastrointestinal: soft, positive bowel sounds Neurological: non-focal, moves all 4 limbs Psychiatric: normal affect, A&O x 3 Dx/Plan (1) Sepsis Code(s): A41.9 - SEPSIS, UNSPECIFIED ORGANISM Status: Acute Comment: Due to pneumonia, leukocytosis improved mildly, still tachycardic (2) Bacterial pneumonia Code(s): J15.9 - UNSPECIFIED BACTERIAL PNEUMONIA Status: Acute Comment: [facility] , Dr. Farrell consulted, on Cefepime and Levaquin started 10/29/2018 (3) Acute and chronic respiratory failure Code(s): J96.20 - ACUTE AND CHR RESP FAILURE, UNSP W HYPOXIA OR HYPERCAPNIA Status: Acute Qualifiers: Respiratory failure complication: hypoxia Qualified Code(s): J96.21 - Acute and chronic respiratory failure with hypoxia Comment: Bipap in ER (4) Acute exacerbation of chronic obstructive pulmonary disease (COPD) Code(s): J44.1 - CHRONIC OBSTRUCTIVE PULMONARY DISEASE W (ACUTE) EXACERBATION Status: Acute Comment: steroids, nebs, pulmicort, abx (5) Renal failure, acute Status: Acute Comment: Uncertain baseline, improved with fluids today - Plan cont current plan of care, continue antibiotics, DVT proph w/SCDs * . - Discharge Day Encounter end time: 11:20 Pulmonology Consult: Meds - Medications MAR Reviewed: Yes Medications: Current Medications Acetaminophen (Tylenol) 1,000 mg PO Q6H PRN PRN Reason: Mild Pain (1-3) Acetaminophen (Tylenol) 650 mg NC Q4H PRN PRN Reason: Fever > 101 Hydrocodone Bitart/Acetaminophen ([place] 10/325) 1 tab PO Q4H PRN PRN Reason: Moderate Pain (4-6) Last Admin: 10/30/18 22:52 Dose: 1 tab Albuterol/Ipratropium (Duoneb) 3 ml NEB [id number] [facility] Last Admin: 10/31/18 06:29 Dose: 3 ml Alprazolam (Xanax) 0.25 mg PO HS PRN PRN Reason: Insomnia Last Admin: 10/30/18 21:40 Dose: 0.25 mg Budesonide (Pulmicort Neb Solution) 0.5 mg INH BID-RT [facility] Last Admin: 10/31/18 06:30 Dose: 0.5 mg Famotidine (Pepcid) 20 mg SLOW IVP Q12HR [facility] Last Admin: 10/30/18 20:18 Dose: 20 mg Guaifenesin (Robitussin Sf) 200 mg PO Q4H PRN PRN Reason: Cough Hydralazine HCl (Apresoline) 10 mg SLOW IVP Q4H PRN PRN Reason: SBP > 180 and HR < 70 Cefepime HCl 2 gm/ Sodium (Chloride) 100 mls @ 200 mls/hr IVPB Q12HR [facility] Last Admin: 10/30/18 20:17 Dose: 100 mls Levofloxacin 750 mg/ Device 150 mls @ 100 mls/hr IVPB 1200 [facility] Last Admin: 10/30/18 12:33 Dose: 150 mls Sodium Chloride (Normal Saline 0.9%) 1,000 mls @ 75 mls/hr IV .[id number] [facility] Last Admin: 10/31/18 01:30 Dose: 1,000 mls Methylprednisolone Sodium Succinate (Solu-Medrol) 40 mg IVP Q6HR [facility] Last Admin: 10/31/18 05:50 Dose: 40 mg Ondansetron HCl (Zofran Odt) 4 mg PO Q6H PRN PRN Reason: Nausea/Vomiting Ondansetron HCl (Zofran) 4 mg IVP Q6H PRN PRN Reason: Nausea/Vomiting Last Admin: 10/30/18 23:32 Dose: 4 mg Sodium Chloride (Flush - Normal Saline) 10 ml IVF Q12HR [facility] Sodium Chloride (Flush - Normal Saline) 10 ml IVF PRN PRN PRN Reason: Saline Flush - Allergies Allergies/Adverse Reactions: Allergies Allergy/AdvReac Type Severity Reaction Status Date / Time amoxicillin Allergy Verified 10/29/18 18:17 ciprofloxacin Allergy Verified 10/29/18 18:17 clavulanic acid Allergy Verified 10/29/18 18:17 [From Augmentin] clindamycin Allergy Verified 10/29/18 18:17 erythromycin base Allergy Verified 10/29/18 18:17 fentanyl Allergy Verified 10/29/18 18:17 Latex, Natural Rubber Allergy Verified 10/29/18 18:17 metolazone Allergy Verified 10/29/18 18:17 nalbuphine Allergy Verified 10/29/18 18:17 oxycodone Allergy Verified 10/29/18 18:17 Sulfa (Sulfonamide Allergy Verified 10/29/18 17:25 Antibiotics) sulfamethoxazole Allergy Verified 10/29/18 18:17 tramadol Allergy Verified 10/29/18 18:17 trimethoprim Allergy Verified 10/29/18 18:17 zolpidem Allergy Verified 10/29/18 18:17 POTASSIUM CLAVULANATE Allergy Uncoded 10/29/18 18:17
[2018-10-31] MEDS: Cefepime 2 GM in Sodium Chloride 0.9% 100 ML IVPB SCH ×2 (09:41→21:49)
[2018-10-31] MEDS: Famotidine/PF 20 mg/2ml Vial SLOW IVP SCH ×2 (09:41→21:54)
[2018-10-31] MEDS: HYDROcodone/Acetaminophen 10/325 mg Tablet PO PRN ×2 (10:06→17:25)
--- NOTE | 2018-10-31 10:16 | PRG ---
DATE OF SERVICE: 10/31/2018 SUBJECTIVE: She is about the same. OBJECTIVE: VITAL SIGNS: Temperature is 97.7, pulse 126, respirations 18, O2 saturation 94% on 2.5 L, and blood pressure 174/82. HEENT: Unremarkable. NECK: No JVD. LUNGS: Coarse breath sounds. CARDIAC: S1 and S2, regular. ABDOMEN: Soft. EXTREMITIES: No edema. LABORATORY DATA: No new labs were done today. ASSESSMENT: 1. Hypoxic respiratory failure. 2. Left lower lobe pneumonia. 3. Deconditioning. PLAN: Continue antibiotics and give her some time to get better. I think her steroid dose can be safely decreased. Job ID: [id number]
[2018-10-31] MEDS: ALPRAZolam 0.25 MG TAB PO PRN (21:46)
[2018-10-31] MEDS: hydrALAZINE 20 MG/ML VIAL SLOW IVP PRN (21:55)
[2018-11-01] MEDS: HYDROcodone/Acetaminophen 10/325 mg Tablet PO PRN (00:51)
[2018-11-01 05:07] LABS: Anion Gap 12 mmol/L (10-20); BUN (Urea Nitrogen) 22 mg/dL (9.8-20.1); Calc. Creatinine Clearance 72 mL/min (70-130); Calcium 8.9 mg/dL (7.8-10.44); Carbon Dioxide 20 mmol/L (23-31); Chloride 105 mmol/L (98-107); Estimated GFR-MDRD 61; Glucose 139 mg/dL (83-110); Potassium 3.3 mmol/L (3.5-5.1); Sodium 134 mmol/L (136-145)
[2018-11-01 05:26] LABS: Band 6 % (5-11); Hemoglobin 10.3 g/dL (12.0-16.0); Lymphocytes 11 % (21-51); MDiff Complete? YES; Mean Corpuscular HGB CONC 32.1 g/dL (32.0-36.0); Mean Corpuscular Hemoglobin 29.3 pg (27.0-31.0); Mean Platelet Volume 7.5 fL (7.4-10.4); Monocytes 2 % (0-10); Neutrophil 81 % (42-75); Platelet Count 241 thou/uL (130-400); RBC Distribution Width 13.1 % (11.5-14.5); Red Blood Cell (RBC) Count 3.52 mill/uL (4.20-5.40); White Blood Cell (WBC) Count 20.5 thou/uL (4.8-10.8)
[2018-11-01] MEDS: Budesonide 0.5 MG/2 ML NEB INH SCH ×2 (06:19→19:34)
--- NOTE | 2018-11-01 07:41 | PDOC.PN ---
- Subjective Encounter Start Date: 11/01/18 Encounter Start Time: 08:50 Subjective: Patient feeling slightly better. Mild cough this AM. Still on NC O2. - Objective Resuscitation Status - Order Detail: 10/29/18 18:04 Resuscitation Status Routine Resuscitation Status: DNAR: NO Resuscitation Discussed with: Patient ALISON Reviewed: Yes Vital Signs & Weight: Vital Signs (12 hours) Temp Pulse Resp BP Pulse Ox 11/01/18 02:29 105 H 16 96 11/01/18 00:00 98.2 F 97 18 150/67 H 92 L 10/31/18 22:41 121 H 16 95 10/31/18 21:55 96 10/31/18 20:00 98.3 F 96 20 186/84 H 94 L Weight Weight 192 lb 3 oz I&O: 10/31/18 11/01/18 11/02/18 06:59 06:59 06:59 Intake Total 855 1600 Output Total 400 700 Balance 455 900 Result Diagrams: 11/01/18 04:27 11/01/18 04:27 Phys Exam - Physical Examination Constitutional: NAD HEENT: moist MMs Respiratory: no wheezing, no rales scattered rhonchi Cardiovascular: RRR, no significant murmur Gastrointestinal: soft, positive bowel sounds Neurological: non-focal, moves all 4 limbs Psychiatric: normal affect, A&O x 3 Dx/Plan (1) Sepsis Code(s): A41.9 - SEPSIS, UNSPECIFIED ORGANISM Status: Acute Comment: Due to pneumonia, leukocytosis improved mildly, tachycardia improving (2) Bacterial pneumonia Code(s): J15.9 - UNSPECIFIED BACTERIAL PNEUMONIA Status: Acute Comment: LLSajan , Dr. Farrell consulted, on Cefepime and Levaquin started 10/29/2018 (3) Acute and chronic respiratory failure Code(s): J96.20 - ACUTE AND CHR RESP FAILURE, UNSP W HYPOXIA OR HYPERCAPNIA Status: Acute Qualifiers: Respiratory failure complication: hypoxia Qualified Code(s): J96.21 - Acute and chronic respiratory failure with hypoxia Comment: Bipap in ER, now down to 2L O2 via NC, steroids decreased (4) Acute exacerbation of chronic obstructive pulmonary disease (COPD) Code(s): J44.1 - CHRONIC OBSTRUCTIVE PULMONARY DISEASE W (ACUTE) EXACERBATION Status: Acute Comment: steroids, nebs, pulmicort, abx (5) Renal failure, acute Status: Resolved Comment: resolved with fluids, will decrease fluids, restart home lasix and potassium (6) Hypokalemia Code(s): E87.6 - HYPOKALEMIA Status: Acute Comment: repleting orally (7) Hypertension Code(s): I10 - ESSENTIAL (PRIMARY) HYPERTENSION Status: Chronic Qualifiers: Hypertension type: essential hypertension Qualified Code(s): I10 - Essential (primary) hypertension Comment: Slowly reintroduce home BP meds - Plan cont current plan of care, continue antibiotics, PT/OT, DVT proph w/lovenox, DVT proph w/SCDs * . - Discharge Day Encounter end time: 09:00 Pulmonology Consult: Meds - Medications MAR Reviewed: Yes Medications: Current Medications Acetaminophen (Tylenol) 1,000 mg PO Q6H PRN PRN Reason: Mild Pain (1-3) Acetaminophen (Tylenol) 650 mg ME Q4H PRN PRN Reason: Fever > 101 Hydrocodone Bitart/Acetaminophen ([place] 10/325) 1 tab PO Q4H PRN PRN Reason: Moderate Pain (4-6) Last Admin: 11/01/18 00:51 Dose: 1 tab Albuterol/Ipratropium (Duoneb) 3 ml NEB [id number] JERMAINE Last Admin: 11/01/18 06:18 Dose: Not Given Alprazolam (Xanax) 0.25 mg PO HS PRN PRN Reason: Insomnia Last Admin: 10/31/18 21:46 Dose: 0.25 mg Budesonide (Pulmicort Neb Solution) 0.5 mg INH BID-RT JERMAINE Last Admin: 11/01/18 06:19 Dose: Not Given Famotidine (Pepcid) 20 mg SLOW IVP Q12HR JERMAINE Last Admin: 10/31/18 21:54 Dose: 20 mg Guaifenesin (Robitussin Sf) 200 mg PO Q4H PRN PRN Reason: Cough Hydralazine HCl (Apresoline) 10 mg SLOW IVP Q4H PRN PRN Reason: SBP > 180 and HR < 70 Last Admin: 10/31/18 21:55 Dose: 10 mg Cefepime HCl 2 gm/ Sodium (Chloride) 100 mls @ 200 mls/hr IVPB Q12HR JERMAINE Last Admin: 10/31/18 21:49 Dose: 100 mls Levofloxacin 750 mg/ Device 150 mls @ 100 mls/hr IVPB 1200 [facility] Last Admin: 10/31/18 12:02 Dose: 150 mls Sodium Chloride (Normal Saline 0.9%) 1,000 mls @ 75 mls/hr IV .[id number] [facility] Last Admin: 10/31/18 17:24 Dose: 1,000 mls Methylprednisolone Sodium Succinate (Solu-Medrol) 20 mg IVP Q6HR [facility] Last Admin: 11/01/18 06:40 Dose: 20 mg Ondansetron HCl (Zofran Odt) 4 mg PO Q6H PRN PRN Reason: Nausea/Vomiting Ondansetron HCl (Zofran) 4 mg IVP Q6H PRN PRN Reason: Nausea/Vomiting Last Admin: 10/30/18 23:32 Dose: 4 mg Potassium Chloride (K-Dur) 40 meq PO NOW [facility] Stop: 11/01/18 12:00 Sodium Chloride (Flush - Normal Saline) 10 ml IVF Q12HR [facility] Last Admin: 10/31/18 21:59 Dose: 10 ml Sodium Chloride (Flush - Normal Saline) 10 ml IVF PRN PRN PRN Reason: Saline Flush - Allergies Allergies/Adverse Reactions: Allergies Allergy/AdvReac Type Severity Reaction Status Date / Time amoxicillin Allergy Verified 10/29/18 18:17 ciprofloxacin Allergy Verified 10/29/18 18:17 clavulanic acid Allergy Verified 10/29/18 18:17 [From Augmentin] clindamycin Allergy Verified 10/29/18 18:17 erythromycin base Allergy Verified 10/29/18 18:17 fentanyl Allergy Verified 10/29/18 18:17 Latex, Natural Rubber Allergy Verified 10/29/18 18:17 metolazone Allergy Verified 10/29/18 18:17 nalbuphine Allergy Verified 10/29/18 18:17 oxycodone Allergy Verified 10/29/18 18:17 Sulfa (Sulfonamide Allergy Verified 10/29/18 17:25 Antibiotics) sulfamethoxazole Allergy Verified 10/29/18 18:17 tramadol Allergy Verified 10/29/18 18:17 trimethoprim Allergy Verified 10/29/18 18:17 zolpidem Allergy Verified 10/29/18 18:17 POTASSIUM CLAVULANATE Allergy Uncoded 10/29/18 18:17
[2018-11-01] MEDS ORDERED: Potassium Chloride 20 MEQ TAB PO SCH (07:45)
[2018-11-01] MEDS ORDERED: Non-Formulary Item 1 EACH (Esomeprazole Magnesium [Nexium] 40 MG) PO SCH (08:00)
[2018-11-01] MEDS ORDERED: GABAPENTIN 1600 MG PO SCH (08:00)
[2018-11-01] MEDS ORDERED: [UNRECOGNIZED DRUG - OTHER] PO SCH (09:00)
[2018-11-01] MEDS ORDERED: FOLIC ACID PO SCH (09:00)
[2018-11-01] MEDS ORDERED: MULTIVITAMIN PO SCH (09:00)
[2018-11-01] MEDS ORDERED: IRON PO SCH (09:00)
[2018-11-01] MEDS ORDERED: Cholecalciferol (Vitamin D3) 400 UNITS TAB PO SCH (09:00)
[2018-11-01] MEDS ORDERED: Enoxaparin Sodium 30 MG/0.3 ML SYRINGE SC SCH (09:00)
[2018-11-01] MEDS: Gabapentin 400 MG CAP PO SCH ×2 (09:46→18:22)
[2018-11-01] MEDS: Cholecalciferol (Vitamin D3) 400 UNITS TAB PO SCH (09:47)
[2018-11-01] MEDS: Furosemide 20 MG TAB PO SCH (09:47)
[2018-11-01] MEDS: Metoprolol Tartrate 25 MG TAB PO SCH ×2 (09:48→21:21)
[2018-11-01] MEDS: Multivit, Therapeutic 1 TAB PO SCH (09:48)
[2018-11-01] MEDS: Cefepime 2 GM in Sodium Chloride 0.9% 100 ML IVPB SCH ×2 (09:48→21:20)
[2018-11-01] MEDS: Ascorbic Acid 500 mg Chewable Tablet PO SCH (09:48)
[2018-11-01] MEDS: Levothyroxine Sodium 125 MCG TAB PO SCH (09:48)
[2018-11-01] MEDS: Sodium Chloride 0.9% 1,000 ML IV SCH (09:49)
[2018-11-01] MEDS: hydrALAZINE 20 MG/ML VIAL SLOW IVP PRN (09:56)
--- NOTE | 2018-11-01 16:28 | PRG ---
DATE OF SERVICE: 11/01/2018 SUBJECTIVE: The patient is doing better, coughing less. Had no acute complaints. OBJECTIVE: VITAL SIGNS: She is afebrile. Vital signs are stable. HEENT: Unremarkable. NECK: No JVD. LUNGS: Coarse breath sounds at bases. CARDIAC: S1 and S2. Regular. ABDOMEN: Soft. EXTREMITIES: No edema. ASSESSMENT: Slowly improving respiratory status. PLAN: Continue current therapy. Job ID: [id number]
[2018-11-01] MEDS: diphenhydrAMINE 50 MG CAP PO PRN (21:21)
[2018-11-01] MEDS: Atorvastatin Calcium 10 MG TAB PO SCH (21:21)
[2018-11-01] MEDS: ALPRAZolam 0.25 MG TAB PO PRN (21:21)
[2018-11-02] MEDS: Budesonide 0.5 MG/2 ML NEB INH SCH ×2 (07:42→18:07)
--- NOTE | 2018-11-02 08:01 | PDOC.PN ---
- Subjective Encounter Start Date: 11/02/18 Encounter Start Time: 09:30 Subjective: Patient feeling better. Was able to get up with PT this morning. States -: she lives at home with , spends most time in wheelchair, usually -: needs his help to transfer to toilet/bed. Rarely walks with walker at home. - Objective Resuscitation Status - Order Detail: 10/29/18 18:04 Resuscitation Status Routine Resuscitation Status: DNAR: NO Resuscitation Discussed with: Patient MAR Reviewed: Yes Vital Signs & Weight: Vital Signs (12 hours) Temp Pulse Resp BP Pulse Ox 11/02/18 07:45 97 11/02/18 07:44 70 16 97 11/02/18 07:42 70 16 97 11/02/18 04:00 98.1 F 82 16 177/92 H 93 L 11/01/18 23:35 97.5 F L 102 H 16 143/89 H 92 L 11/01/18 21:31 94 20 11/01/18 20:00 97.5 F L 72 20 117/53 L 88 L Weight Weight 192 lb 3 oz I&O: 11/01/18 11/02/18 11/03/18 06:59 06:59 06:59 Intake Total 1600 1540 Output Total 700 501 Balance 900 1039 Result Diagrams: 11/01/18 04:27 11/01/18 04:27 Phys Exam - Physical Examination Constitutional: NAD HEENT: moist MMs Respiratory: no wheezing, no rales, no rhonchi Cardiovascular: RRR, no significant murmur Gastrointestinal: soft, positive bowel sounds Neurological: non-focal Psychiatric: normal affect, A&O x 3 Dx/Plan (1) Sepsis Code(s): A41.9 - SEPSIS, UNSPECIFIED ORGANISM Status: Acute Comment: Due to pneumonia, leukocytosis improved mildly, tachycardia resolved (2) Bacterial pneumonia Code(s): J15.9 - UNSPECIFIED BACTERIAL PNEUMONIA Status: Acute Comment: LLL , Dr. Farrell consulted, on Cefepime and Levaquin started 10/29/2018 (3) Acute and chronic respiratory failure Code(s): J96.20 - ACUTE AND CHR RESP FAILURE, UNSP W HYPOXIA OR HYPERCAPNIA Status: Acute Qualifiers: Respiratory failure complication: hypoxia Qualified Code(s): J96.21 - Acute and chronic respiratory failure with hypoxia Comment: Bipap in ER, now down to 2L O2 via NC, steroids decreased (4) Acute exacerbation of chronic obstructive pulmonary disease (COPD) Code(s): J44.1 - CHRONIC OBSTRUCTIVE PULMONARY DISEASE W (ACUTE) EXACERBATION Status: Acute Comment: steroids, nebs, pulmicort, abx (5) Renal failure, acute Status: Resolved Comment: resolved with fluids, will decrease fluids, restart home lasix and potassium (6) Hypokalemia Code(s): E87.6 - HYPOKALEMIA Status: Acute Comment: repleting orally (7) Hypertension Code(s): I10 - ESSENTIAL (PRIMARY) HYPERTENSION Status: Chronic Qualifiers: Hypertension type: essential hypertension Qualified Code(s): I10 - Essential (primary) hypertension Comment: Slowly reintroduce home BP meds - Plan cont current plan of care, continue antibiotics, PT/OT, DVT proph w/lovenox, DVT proph w/SCDs Patient may need SNF vs. home with family assistance. * . - Discharge Day Encounter end time: 09:40
[2018-11-02] MEDS: Ascorbic Acid 500 mg Chewable Tablet PO SCH (09:34)
[2018-11-02] MEDS: Cholecalciferol (Vitamin D3) 400 UNITS TAB PO SCH (09:34)
[2018-11-02] MEDS: Enoxaparin Sodium 40 MG/0.4 ML SYRINGE SC SCH (09:34)
[2018-11-02] MEDS: Multivit, Therapeutic 1 TAB PO SCH (09:34)
[2018-11-02] MEDS: Levothyroxine Sodium 125 MCG TAB PO SCH (09:34)
[2018-11-02] MEDS: Metoprolol Tartrate 25 MG TAB PO SCH ×2 (09:34→21:28)
[2018-11-02] MEDS: Furosemide 20 MG TAB PO SCH (09:35)
[2018-11-02] MEDS: Sodium Chloride 0.9% 1,000 ML IV SCH (09:37)
[2018-11-02] MEDS: Gabapentin 400 MG CAP PO SCH ×2 (09:38→19:24)
[2018-11-02] MEDS: Cefepime 2 GM in Sodium Chloride 0.9% 100 ML IVPB SCH (09:39)
--- NOTE | 2018-11-02 10:23 | PRG ---
DATE OF SERVICE: 11/02/2018 SUBJECTIVE: The patient is in better spirits, has no acute complaints. OBJECTIVE: VITAL SIGNS: Temperature is 98.6, pulse 64, respirations 20, O2 saturation 92% on 2 L, and blood pressure 160/70. HEENT: Unremarkable. NECK: No JVD. CHEST: Clear. CARDIAC: S1 and S2, regular. ABDOMEN: Soft. EXTREMITIES: No edema. ASSESSMENT: 1. Pneumonia. 2. Chronic obstructive pulmonary disease. PLAN: Transition over to oral antibiotics and hopefully home tomorrow. Job ID: [id number]
[2018-11-02] MEDS: Cefdinir 300 MG CAP PO SCH (11:20)
[2018-11-02] MEDS: diphenhydrAMINE 50 MG CAP PO PRN (21:28)
[2018-11-02] MEDS: predniSONE 20 MG TAB PO SCH (21:28)
[2018-11-02] MEDS: ALPRAZolam 0.25 MG TAB PO PRN (21:29)
[2018-11-02] MEDS: Atorvastatin Calcium 10 MG TAB PO SCH (21:29)
[2018-11-03] MEDS: HYDROcodone/Acetaminophen 10/325 mg Tablet PO PRN (03:16)
[2018-11-03 05:30] LABS: Anion Gap 14 mmol/L (10-20); BUN (Urea Nitrogen) 23 mg/dL (9.8-20.1); Calc. Creatinine Clearance 57 mL/min (70-130); Calcium 8.5 mg/dL (7.8-10.44); Carbon Dioxide 21 mmol/L (23-31); Chloride 102 mmol/L (98-107); Estimated GFR-MDRD 47; Glucose 141 mg/dL (83-110); Potassium 3.3 mmol/L (3.5-5.1); Sodium 134 mmol/L (136-145)
[2018-11-03 05:48] LABS: Hemoglobin 11.2 g/dL (12.0-16.0); Hypochromia SLIGHT = 6-15 cells (100X) (0-5/hpf); Lymphocytes 15 % (21-51); MDiff Complete? YES; Mean Corpuscular HGB CONC 31.8 g/dL (32.0-36.0); Mean Corpuscular Hemoglobin 28.7 pg (27.0-31.0); Mean Corpuscular Volume 90.4 fL (78.0-98.0); Monocytes 2 % (0-10); Neutrophil 83 % (42-75); Platelet Count 279 thou/uL (130-400); Platelet Morphology Comment Appears Adequate; RBC Distribution Width 13.3 % (11.5-14.5); Red Blood Cell (RBC) Count 3.88 mill/uL (4.20-5.40); White Blood Cell (WBC) Count 20.9 thou/uL (4.8-10.8)
[2018-11-03] MEDS: Budesonide 0.5 MG/2 ML NEB INH SCH ×2 (06:29→10:40)
[2018-11-03 07:30] VITALS: BP 156/70; TEMP 97.7
[2018-11-03] MEDS: predniSONE 20 MG TAB PO SCH (09:09)
[2018-11-03] MEDS: Levothyroxine Sodium 125 MCG TAB PO SCH (09:09)
[2018-11-03] MEDS: Furosemide 20 MG TAB PO SCH (09:09)
[2018-11-03] MEDS: Metoprolol Tartrate 25 MG TAB PO SCH (09:09)
[2018-11-03] MEDS: Ascorbic Acid 500 mg Chewable Tablet PO SCH (09:09)
[2018-11-03] MEDS: Cholecalciferol (Vitamin D3) 400 UNITS TAB PO SCH (09:10)
[2018-11-03] MEDS: Gabapentin 400 MG CAP PO SCH (09:10)
[2018-11-03] MEDS: Enoxaparin Sodium 40 MG/0.4 ML SYRINGE SC SCH (09:10)
[2018-11-03] MEDS: Multivit, Therapeutic 1 TAB PO SCH (09:10)
--- NOTE | 2018-11-03 10:17 | PRG ---
DATE OF SERVICE: 10/31/2018 SUBJECTIVE: She feels better and wants to go home. OBJECTIVE: VITAL SIGNS: Temperature 97.7, pulse 48, respirations 16, O2 saturation 93% on room air, and blood pressure 156/70. HEENT: Unremarkable. NECK: No JVD. CHEST: Fairly clear anteriorly. CARDIAC: S1 and S2, regular. ABDOMEN: Soft. EXTREMITIES: No edema. LABORATORY DATA: White blood cell count 20, hematocrit 35.1, and platelet count 279. Sodium 134, potassium 3.3, BUN 23, creatinine 1.1, glucose 141. ASSESSMENT: 1. Pneumonia. 2. Chronic obstructive pulmonary disease. PLAN: I think she is probably back to her baseline and she is stable enough to go home on a tapered dose of steroids and finish out full 10 days of antibiotics. She is a patient of Dr. Hook and should follow up with him in 3 to 4 weeks. Job ID: [id number]
[2018-11-03] MEDS ORDERED: Potassium Chloride 20 MEQ TAB PO SCH (11:00)
[2018-11-03] MEDS: Cefdinir 300 MG CAP PO SCH (12:39)
--- NOTE | 2018-11-04 03:37 | DIS ---
DATE OF ADMISSION: 10/29/2018 DATE OF DISCHARGE: 11/03/2018 PRIMARY CARE PROVIDER: Dr. Deepak Ricardo. DISCHARGE DIAGNOSES: 1. Sepsis. 2. Left lower lobe pneumonia. 3. Deconditioning. 4. Acute kidney injury. CONDITION OF PATIENT ON THE DAY OF DISCHARGE: Stable. I assessed Ms. Santizo on the day of discharge. She denies any chest pain or shortness of breath. Vital signs are stable. S1 and S2 are heard, regular. Lungs are clear to auscultation bilaterally. CONSULTATIONS DURING THIS HOSPITALIZATION: Pulmonology, Dr. Jung Farrell. DISCHARGE MEDICATIONS: 1. Promethazine p.r.n. 2. Albuterol inhaler p.r.n. 3. Alprazolam 0.25 mg at bedtime. 4. Vitamin C 500 mg daily. 5. Lipitor 10 mg daily. 6. Budesonide nebulizers 2 times a day. 7. Vitamin D3 of 400 units daily. 8. Nexium 40 mg daily. 9. Lasix 20 mg daily. 10. Gabapentin 1600 mg 2 times a day. 11. [place] p.r.n. 12. Synthroid 125 mcg daily. 13. Lopressor 25 mg 2 times a day. 14. Multivitamins 1 tablet daily. 15. Potassium chloride 10 mEq daily as needed. 16. Tolterodine 4 mg daily. 17. Zantac 150 mg at bedtime. 18. Omnicef 600 mg daily for 5 more days and oral prednisone taper. 19. Valsartan is on hold because of acute kidney injury. HOSPITAL COURSE: Ms. Santizo is a pleasant 78-year-old lady, who was admitted to [facility] on October 29, 2018, for sepsis secondary to left lower lobe pneumonia. Please refer to Dr. Cespedes's history and physical note for further details. She was also having acute kidney injury and valsartan was held. She improved with antibiotics. She has been cleared for discharge by Pulmonology Service. In terms of acute kidney injury, she had creatinine 1.35 on October 29, 1.26 on October 30, normalized to 0.89 on November 01, and increased to 1.12 on November 03. She is advised to follow up with her primary care provider and have her creatinine rechecked and resume valsartan if renal function is stable. On the day of discharge, she has sodium 134, potassium 3.3, which is being replaced; blood urea nitrogen 23, creatinine 1.12. White count [id number], hemoglobin 11.2, and platelet count 279,000. Many thanks for allowing me to participate in your patient's care. Please feel free to contact me with any questions or concerns. DISCHARGE DESTINATION: Home. Total amount of time spent coordinating this discharge: 32 minutes. Please note that Ms. Santizo is also physically deconditioned. She was recommended longterm facility, but both patient and her refused. They wanted to go home. reports that if they have difficulty managing at home, then they will apply for longterm placement. Job ID: [id number]
--- NOTE | 2018-11-04 23:03 | EKG ---
Test Reason : Blood Pressure : / mmHG Vent. Rate : 116 BPM Atrial Rate : 116 BPM P-R Int : 148 ms QRS Dur : 098 ms QT Int : 338 ms P-R-T Axes : 063 -67 080 degrees QTc Int : 469 ms Sinus tachycardia Left axis deviation Abnormal ECG Confirmed by ERIK NORTH, TANIYA ([id number]), editor & co founder ROMY [employer]AM[employer]ERS ([id number]) on 11/04/2018 11:02:55 PM Referred By: Confirmed By:TANIYA VALENCIA MD
== END 2018-11-03 14:32 | disposition home or self-care (01) | DRG 871 ==
LOC: ERS 10:05 → ERHOLD 14:49 → MERGE 14:49 → IMCU/EMU 17:16 → ONC 10-30 13:17
PROVIDERS: ADMIT Family Medicine; ATTEND Family Medicine
DX: A41.9 Sepsis, unspecified organism (principal); J15.9 Unspecified bacterial pneumonia; J44.1 Chronic obstructive pulmonary disease with (acute) exacerbation; J44.0 Chronic obstructive pulmonary disease with (acute) lower respiratory infection; N17.9 Acute kidney failure, unspecified; I10 Essential (primary) hypertension; E03.9 Hypothyroidism, unspecified; E78.5 Hyperlipidemia, unspecified; E87.6 Hypokalemia
CPT/HCPCS: 36415; 51701; 71045; 80048; 80053; 81003; 81015; 82550; 83605; 83880; 84484; 85007; 85025; 85027; 87040; 87324; 87449; 93005; 94640; 94660; 94760; 96365; 96366; 96367; A4353; J0360; J0692; J1650; J1956; J2405; J2543; J2920; J3370; J7050; J7506; J7620; J7626; Q0162; S0028

== ENCOUNTER 2019-01-08 08:25 | Inpatient (IN) | payer MEDICARE, OTHER ==
[2019-01-08 09:04] LABS: #Basophils 0.1 thou/uL (0.0-0.2); #Eosinphils 0.5 thou/uL (0.0-0.7); #Lymphocytes 2.2 thou/uL (1.20-3.40); #Monocytes 0.7 thou/uL (0.11-0.59); #Neutrophils 9.1 thou/uL (1.40-6.50); %Basophils 0.8 % (0.0-1.0); %Eosinophils 3.6 % (0.0-10.0); %Lymphocytes 17.6 % (21.0-51.0); %Monocytes 5.7 % (0.0-10.0); %Neutrophils 72.4 % (42.0-75.0); Hemoglobin 11.8 g/dL (12.0-16.0); Mean Corpuscular HGB CONC 32.9 g/dL (32.0-36.0); Mean Corpuscular Hemoglobin 29.1 pg (27.0-31.0); Mean Corpuscular Volume 88.5 fL (78.0-98.0); Mean Platelet Volume 6.5 fL (7.4-10.4); Platelet Count 286 thou/uL (130-400); RBC Distribution Width 13.1 % (11.5-14.5); Red Blood Cell (RBC) Count 4.05 mill/uL (4.20-5.40); White Blood Cell (WBC) Count 12.6 thou/uL (4.8-10.8)
[2019-01-08] MEDS ORDERED: Cefepime 2 GM VIAL ONE (09:09)
[2019-01-08] MEDS ORDERED: Acetaminophen 325 MG TAB ONE (09:09)
--- NOTE | 2019-01-08 09:14 | RAD ---
FPortable chest: INDICATIONS: Dyspnea. COMPARISON: 10/29/2018 FINDINGS: Cardiomegaly. Lungs appear clear. Left lung base is suboptimally evaluated due to the enlar ged heart. I cannot exclude left basilar atelectasis or consolidation. The chest has not significantl y changed when compared to 10/29/2018. IMPRESSION: Cardiomegaly. No interval change in the chest.
[2019-01-08 09:20] LABS: ALT (SGPT) 16 U/L (8-55); AST (SGOT) 14 U/L (5-34); Albumin 3.6 g/dL (3.4-4.8); Alkaline Phosphatase 129 U/L (40-150); Anion Gap 14 mmol/L (10-20); BUN (Urea Nitrogen) 28 mg/dL (9.8-20.1); Bilirubin, Total 0.4 mg/dL (0.2-1.2); Calc. Creatinine Clearance 0 mL/min (70-130); Carbon Dioxide 29 mmol/L (23-31); Chloride 96 mmol/L (98-107); Estimated GFR-MDRD 34; Globulin 3.4 g/dL (2.4-3.5); Glucose 99 mg/dL (83-110); Potassium 4.6 mmol/L (3.5-5.1); Sodium 134 mmol/L (136-145)
[2019-01-08 11:28] LABS: Bilirubin Negative (Negative); Blood, Urine Trace (Negative); Clarity CLOUDY (Clear); Glucose, Urine (Dipstick) Negative (Negative); Leukocyte Large (Negative); Nitrite Negative (Negative); Protein, Urine (Dipstick) Trace mg/dL (Neg-Trace); Specific Gravity, Urine 1.011 (1.002-1.036); Urobilinogen 0.2 mg/dL (0.2-1.0); pH, Urine 5.5 (5.0-9.0)
[2019-01-08] MEDS ORDERED: Ibuprofen 200 MG TAB ONE (11:35)
[2019-01-08 11:36] LABS: Bacteria/HPF Rare-Few HPF (None Seen); Hyaline Casts/LPF 0-3 HYALINE CAST LPF (0-3 Hyaline); Pathc Cast-AUWi Flag 0.81 (0-2.49); RBC/HPF 0-3 HPF (0-3); Squamous Epithelial None Seen HPF (0-3)
[2019-01-08] MEDS ORDERED: Acetaminophen 325 MG TAB PO PRN (13:26)
[2019-01-08] MEDS ORDERED: Enoxaparin Sodium 30 MG/0.3 ML SYRINGE SC SCH (14:00)
[2019-01-08 14:49] VITALS: BMI 38.0
[2019-01-08] MEDS: Sodium Chloride 0.9% 1,000 ML IV SCH (14:58)
--- NOTE | 2019-01-08 16:33 | HP ---
CHIEF COMPLAINT: Cough. HISTORY OF PRESENT ILLNESS: This patient is a 78-year-old female with a history of several prior admissions for what appeared to be pneumonia related sepsis. The patient lives at home with her who does a very good job of caring for her. She has bad knees and is unable to ambulate, however, reports that he does get her out of bed to a rolling walker and then gets her into a reclining chair where she spends most of her time. He can get her up to the bathroom where she needs to go briefly. They reported that about 1 week ago, she had the onset of significant cough. The cough has been largely nonproductive. However, she has had some modest amount of yellow sputum, seems to be worse with eating and talking. She has had some pain in her right shoulder area which at times has been 8/10. She has reported some chills. REVIEW OF SYSTEMS: The patient believes that she has had some diarrhea. She denies any nausea, vomiting, abdominal pain, chest pain, UTI symptoms. She does report the chills and shortness of breath. All other systems were reviewed and all pertinent positives and negatives noted in the history of present illness. PAST MEDICAL HISTORY: Notable for gastroesophageal reflux, recurrent bacterial pneumonias, COPD, chronic hypoxic respiratory failure, tracheobronchomalacia which is chronic, chronic deconditioning, hypertension, atrial fibrillation, history of C diff colitis, hypothyroidism, hyperlipidemia. PAST SURGICAL HISTORY: Appendectomy, hysterectomy, cholecystectomy. FAMILY HISTORY: Negative for heritable diseases. SOCIAL HISTORY: The patient lives with her as stated above. She is minimally ambulatory and primarily . She has no history of alcohol, tobacco, or drug use. She is with her and sister today. She is a DNAR and he is her surrogate decision maker. ALLERGIES: AMOXICILLIN, AUGMENTIN, CIPRO, CLAVULANIC ACID, CLINDAMYCIN, ERYTHROMYCIN BASE, LATEX, METOLAZONE, NALBUPHINE FROM [place], OXYCODONE, SULFA, TRIMETHOPRIM, ZOLPIDEM, TRAMADOL, FENTANYL AND POTASSIUM CLAVULANATE. CURRENT MEDICATIONS: 1. Synthroid 125 mcg daily. 2. Amlodipine 10 mg daily. 3. Valsartan 320 mg daily. 4. Gabapentin 1600 mg q.a.m., 800 mg q.noon, and 1600 mg at bedtime. 5. Fluoxetine 20 mg daily. 6. Lasix 20 mg daily p.r.n. 7. Meloxicam 15 mg daily. 8. Potassium 10 mEq p.o. daily when taking Lasix. 9. Nexium 40 mg daily. 10. Zantac 150 at bedtime. 11. Gem 10/325 q.4 hours p.r.n. 12. Atorvastatin 10 mg at bedtime. 13. Loperamide p.r.n. 14. Alprazolam 0.25 one p.o. at bedtime. 15. Tolterodine 4 mg daily. 16. Vitamin D3. 17. Phenergan with codeine p.r.n. 18. Albuterol p.r.n. PHYSICAL EXAMINATION: VITAL SIGNS: Initial temperature in the ER was 101.0, most recent 99.2, BP 100/45, pulse 73, respirations 20, O2 saturation 98% on 2 L. Repeat vitals; BP 117/60, respirations 20, pulse 110, O2 saturation 98%. Temperature 99.9. GENERAL APPEARANCE: The patient appears to be in no distress, although she appears to be a little encephalopathic. She is very somnolent. She will awaken and then answer questions and then drifts back off fairly quickly. She seems to be answering questions correctly. HEENT: PERRL. No OP lesions. Very dry oral mucosa. NECK: Supple and symmetric with no lymphadenopathy, JVD, or carotid bruits. HEART: Regular, tachycardic. No murmurs. LUNGS: Clear bilaterally with no wheezes or rales. ABDOMEN: Soft, nondistended. Positive bowel sounds. Very slightly tender in the epigastrium. No masses. No organomegaly. EXTREMITIES: Have 2+ nonpitting edema. LABORATORY DATA: White count 12.6, hemoglobin 11.8, platelets 286. Sodium 134, potassium 4.6, chloride 96, BUN 28, creatinine 1.49. LFTs normal. Urinalysis shows greater than 50 white cells, 0 to 3 red cells, large leukocyte esterase, negative nitrites, rare to few bacteria. The pH is 5.5. Chest x-ray shows no acute cardiopulmonary processes. Flu screen is negative. IMPRESSION AND PLAN: 1. Sepsis with urinary tract infection, primarily due to the patient's encephalopathy and some tachycardia, which appears to be waxing and waning. She also has significant fever. It is possible she could have a pulmonary source as well, although the chest x-ray is negative and exam does not suggest pneumonia. May need to repeat that tomorrow. 2. Urinary tract infection, not overwhelming evidence, but certainly in light of her overall picture and lack of other evident sources. We will continue to cover with vancomycin and cefepime. The patient has numerous allergies, which make it challenging for antibiotic choices. 3. Chronic kidney disease, stage 3, stable. She is at her baseline renal function. 4. Hypertension. The patient's blood pressure has been up and down in the emergency department. We will need to likely hold off on some medicines until we are sure it is more solidified. 5. Chronic obstructive pulmonary disease. We will continue with nebulizer treatments as needed. 6. Apparent mild dehydration clinically. We will hold off on the aggressive fluids as she has had a liter of fluids in the emergency department. We will continue to hydrate and hold her Lasix. 7. Possible dysphagia. The patient had some history of dysphagia and her is now telling me that she will have some coughing at times when she is eating, but believes it is primarily when she is distracted. We will have Speech Therapy evaluate her. Job ID: [id number]
[2019-01-08] MEDS ORDERED: Gabapentin 100 MG CAP PO SCH (21:00)
[2019-01-08] MEDS: HYDROcodone/Acetaminophen 10/325 mg Tablet PO PRN (22:11)
[2019-01-08] MEDS ORDERED: Benzonatate 100 MG CAP PO PRN (23:26)
[2019-01-09] MEDS: Sodium Chloride 0.9% 1,000 ML IV SCH ×2 (04:53→06:13)
[2019-01-09 06:49] LABS: #Eosinphils 0.4 thou/uL (0.0-0.7); #Lymphocytes 1.6 thou/uL (1.20-3.40); #Monocytes 0.7 thou/uL (0.11-0.59); #Neutrophils 5.5 thou/uL (1.40-6.50); %Basophils 0.4 % (0.0-1.0); %Eosinophils 4.6 % (0.0-10.0); %Lymphocytes 19.3 % (21.0-51.0); %Monocytes 8.7 % (0.0-10.0); %Neutrophils 66.9 % (42.0-75.0); Mean Corpuscular HGB CONC 31.3 g/dL (32.0-36.0); Mean Corpuscular Volume 89.6 fL (78.0-98.0); Mean Platelet Volume 7.1 fL (7.4-10.4); Platelet Count 273 thou/uL (130-400); RBC Distribution Width 13.5 % (11.5-14.5); Red Blood Cell (RBC) Count 3.91 mill/uL (4.20-5.40); White Blood Cell (WBC) Count 8.3 thou/uL (4.8-10.8)
[2019-01-09 07:11] LABS: Anion Gap 12 mmol/L (10-20); BUN (Urea Nitrogen) 20 mg/dL (9.8-20.1); Calc. Creatinine Clearance 75 mL/min (70-130); Calcium 8.7 mg/dL (7.8-10.44); Carbon Dioxide 23 mmol/L (23-31); Chloride 105 mmol/L (98-107); Estimated GFR-MDRD 59; Glucose 92 mg/dL (83-110); Potassium 3.9 mmol/L (3.5-5.1); Sodium 136 mmol/L (136-145)
[2019-01-09] MEDS ORDERED: Non-Formulary Item 1 EACH (Albuterol Sulfate [Proair Respiclick] 90 MCG) IH PRN ×2 (08:42)
[2019-01-09] MEDS ORDERED: POTASSIUM CHLORIDE 10 MEQ PO PRN (08:42)
[2019-01-09] MEDS ORDERED: Furosemide 40 MG TAB PO PRN (08:42)
[2019-01-09] MEDS ORDERED: Non-Formulary Item 1 EACH (Promethazine Hcl/Codeine [Prometh-Codein 6.25-10 Mg/5 Ml] 5 ML PO PRN (08:42)
[2019-01-09] MEDS ORDERED: Non-Formulary Item 1 EACH (Gabapentin [Gabapentin] 800 MG) PO SCH (08:45)
[2019-01-09] MEDS ORDERED: FOLIC ACID PO SCH (09:00)
[2019-01-09] MEDS ORDERED: MULTIVITAMIN PO SCH (09:00)
[2019-01-09] MEDS ORDERED: IRON PO SCH (09:00)
[2019-01-09] MEDS ORDERED: Non-Formulary Item 1 EACH (Valsartan [Diovan] 320 MG) PO SCH (09:00)
[2019-01-09] MEDS ORDERED: Non-Formulary Item 1 EACH (Fluoxetine Hcl [Fluoxetine Hcl] 20 MG) PO SCH (09:00)
[2019-01-09] MEDS ORDERED: Tolterodine Tartrate LA 4 MG CAP PO SCH (09:00)
[2019-01-09] MEDS ORDERED: [UNRECOGNIZED DRUG - OTHER] PO SCH (09:00)
[2019-01-09] MEDS ORDERED: Non-Formulary Item 1 EACH (Oxybutynin Chloride [Oxybutynin Chloride Er] 10 MG) PO SCH (09:00)
[2019-01-09] MEDS ORDERED: Cholecalciferol (Vitamin D3) 400 UNITS TAB PO SCH (09:00)
[2019-01-09] MEDS ORDERED: Furosemide 20 MG TAB PO PRN (09:06)
[2019-01-09] MEDS ORDERED: PROVENTIL INHALER 6.7 G (200 INHALATIONS) INH PRN (09:15)
[2019-01-09] MEDS ORDERED: Phenergan/Codeine 10-6.25mg/5ml UDCUP PO PRN (09:16)
[2019-01-09] MEDS: Cefepime 1 GM in Sodium Chloride 0.9% 100 ML IVPB SCH (09:52)
[2019-01-09] MEDS: Valsartan 80 MG TAB PO SCH (09:53)
[2019-01-09] MEDS: Cholecalciferol (Vitamin D3) 400 UNITS TAB PO SCH (09:54)
[2019-01-09] MEDS: Meloxicam 15 MG TAB PO SCH (09:54)
[2019-01-09] MEDS: Metoprolol Tartrate 25 MG TAB PO SCH ×2 (09:55→20:38)
[2019-01-09] MEDS: FLUoxetine HCl 20 MG CAP PO SCH (09:55)
[2019-01-09] MEDS: Oxybutynin 5 MG TAB PO SCH (09:55)
[2019-01-09] MEDS: Multivit, Therapeutic 1 TAB PO SCH (09:55)
[2019-01-09] MEDS: Potassium Chloride 10 MEQ TAB PO SCH (09:56)
[2019-01-09] MEDS: Ascorbic Acid 500 mg Chewable Tablet PO SCH (09:56)
[2019-01-09] MEDS: Levothyroxine Sodium 125 MCG TAB PO SCH (09:58)
[2019-01-09] MEDS ORDERED: Vancomycin HCl 1 GM in Premix Bag 1 BAG IVPB SCH (11:00)
[2019-01-09] MEDS: HYDROcodone/Acetaminophen 10/325 mg Tablet PO PRN ×3 (11:27→21:30)
[2019-01-09] MEDS: Loperamide HCl 2 MG CAP PO PRN ×2 (11:28→16:37)
[2019-01-09] MEDS ORDERED: Gabapentin 400 MG CAP PO SCH (11:30)
[2019-01-09] MEDS: Gabapentin 400 MG CAP PO SCH ×2 (16:33→20:37)
--- NOTE | 2019-01-09 16:59 | PDOC.PN ---
- Subjective Encounter Start Date: 01/09/19 Encounter Start Time: 09:00 Pt seen for foclarence re: sepsis. Feels better. - Objective Resuscitation Status - Order Detail: 01/08/19 13:26 Resuscitation Status Routine Resuscitation Status: DNAR: NO Resuscitation Discussed with: Patient ALISON Reviewed: Yes Vital Signs & Weight: Vital Signs (12 hours) Temp Pulse Resp BP Pulse Ox 01/09/19 12:00 98.0 F 93 18 152/75 H 98 01/09/19 08:00 98.7 F 122 H 18 194/110 H 96 Weight Weight 207 lb 11.2 oz I&O: 01/08/19 01/09/19 01/10/19 06:59 06:59 06:59 Intake Total 1300 220 Balance 1300 220 Result Diagrams: 01/09/19 05:50 01/09/19 05:50 Additional Labs: Labs reviewed by me Phys Exam - Physical Examination Obesity HEENT: moist MMs, sclera anicteric, oral pharynx no lesions, 2+ tonsils Neck: no nodes, no JVD, supple, full ROM Respiratory: clear to auscultation bilateral Cardiovascular: RRR Gastrointestinal: soft, non-tender, positive bowel sounds distention Neurological: moves all 4 limbs Psychiatric: normal affect Deviation from normal: Oriented to person and place, not to time Deviation from normal: rash under breasts, and over groin Dx/Plan (1) Sepsis Code(s): A41.9 - SEPSIS, UNSPECIFIED ORGANISM Status: Acute Comment: ndary to UTI, continue IV antibiotics as below. Pt also has respiratory symptoms, check chest x-ray in AM (2) UTI (urinary tract infection) Status: Acute Comment: continue IV antibiotics as below (3) Rash Code(s): R21 - RASH AND OTHER NONSPECIFIC SKIN ERUPTION Status: Acute Comment: start Nystatin powder (4) Anxiety and depression Code(s): F41.8 - OTHER SPECIFIED ANXIETY DISORDERS Status: Chronic Comment: mild, stable (5) GERD (gastroesophageal reflux disease) Code(s): K21.9 - GASTRO-ESOPHAGEAL REFLUX DISEASE WITHOUT ESOPHAGITIS Status: Chronic Qualifiers: Esophagitis presence: without esophagitis Qualified Code(s): K21.9 - Gastro -esophageal reflux disease without esophagitis Comment: stable (6) Hypertension Code(s): I10 - ESSENTIAL (PRIMARY) HYPERTENSION Status: Chronic Qualifiers: Hypertension type: essential hypertension Qualified Code(s): I10 - Essential (primary) hypertension Comment: resume home medications, monitor vital signs and titrate antihypertensives as needed (7) Hypothyroidism Code(s): E03.9 - HYPOTHYROIDISM, UNSPECIFIED Status: Chronic Comment: continue thyroid replacement (8) NIKI (acute kidney injury) Code(s): N17.9 - ACUTE KIDNEY FAILURE, UNSPECIFIED Status: Resolved - Plan plan discussed w/ family, continue antibiotics, out of bed/ambulate * . Cdepastat lozenges for throat pain Review of Systems - Review of Systems Constitutional: fever, weakness. negative: chills, sweats, malaise ENT: Throat Pain Respiratory: Cough, Dry. negative: Shortness of Breath, SOB with Excertion, Pleuritic Pain, Wheezing Cardiovascular: negative: chest pain, palpitations, orthopnea, paroxysmal nocturnal dyspnea, edema, light headedness Gastrointestinal: negative: Nausea, Vomiting, Abdominal Pain, Diarrhea, Constipation, Melena, Hematochezia Genitourinary: negative: Dysuria, Frequency, Incontinence, Hematuria, Retention - Medications/Allergies Allergies/Adverse Reactions: Allergies Allergy/AdvReac Type Severity Reaction Status Date / Time amoxicillin Allergy Verified 11/06/18 17:37 amoxicillin trihydrate Allergy Diarrhea Verified 11/06/18 17:37 [From Augmentin] ciprofloxacin [From Cipro] Allergy Rash Verified 11/06/18 17:37 clavulanic acid Allergy Verified 11/06/18 17:37 [From Augmentin] clindamycin Allergy Verified 11/06/18 17:37 erythromycin base Allergy Verified 11/06/18 17:37 [From Erythrocin] erythromycin lactobionate Allergy Verified 11/06/18 17:37 [From Erythrocin] Latex, Natural Rubber Allergy Rash Verified 11/06/18 17:37 metolazone [Metolazone] Allergy Verified 11/06/18 17:37 nalbuphine Allergy Verified 11/06/18 17:37 nalbuphine HCl [From Nubain] Allergy Verified 11/06/18 17:37 oxycodone Allergy Verified 11/06/18 17:37 oxycodone HCl Allergy Rash Verified 11/06/18 17:37 [From OxyContin] potassium clavulanate Allergy Diarrhea Verified 11/06/18 17:37 [From Augmentin] Sulfa (Sulfonamide Allergy Rash Verified 11/06/18 17:37 Antibiotics) sulfamethoxazole Allergy Verified 11/06/18 17:37 [From Bactrim] trimethoprim [From Bactrim] Allergy Verified 11/06/18 17:37 zolpidem Allergy Verified 11/06/18 17:37 tramadol [From Ultram] AdvReac Intermediate Verified 11/06/18 17:37 zolpidem tartrate AdvReac Intermediate "crazy" Verified 11/06/18 17:37 [From Ambien] fentanyl [From Duragesic] AdvReac Mild Anxiety Verified 11/06/18 17:37 POTASSIUM CLAVULANATE Allergy Uncoded 11/06/18 17:37 Medications: Current Medications Acetaminophen (Tylenol) 650 mg PO Q4H PRN PRN Reason: Headache/Fever/Mild Pain (1-3) Hydrocodone Bitart/Acetaminophen ([place] 10/325) 1 tab PO Q4HR PRN PRN Reason: Moderate to Severe Pain (6-10) Last Admin: 01/09/19 16:36 Dose: 1 tab Albuterol Sulfate (Proventil Hfa) 1 puff INH Q4H PRN PRN Reason: SOB Albuterol/Ipratropium (Duoneb) 3 ml NEB [id number] PRN PRN Reason: SOB &/or Wheezing Alprazolam (Xanax) 0.25 mg PO HS [facility] Ascorbic Acid (Vitamin C) 500 mg PO DAILY [facility] Last Admin: 01/09/19 09:56 Dose: 500 mg Atorvastatin Calcium (Lipitor) 10 mg PO HS [facility] Benzonatate (Tessalon) 100 mg PO TIDPRN PRN PRN Reason: Cough Last Admin: 01/09/19 09:55 Dose: 100 mg Cholecalciferol (Vitamin D) 400 units PO DAILY [facility] Last Admin: 01/09/19 09:54 Dose: 400 units Famotidine (Pepcid) 20 mg PO HS [facility] Fluoxetine HCl (Prozac) 20 mg PO DAILY [facility] Last Admin: 01/09/19 09:55 Dose: 20 mg Furosemide (Lasix) 20 mg PO DAILYPRN PRN PRN Reason: SOB Gabapentin (Neurontin) 1,600 mg PO BID [facility] Gabapentin (Neurontin) 800 mg PO 1500 [facility] Last Admin: 01/09/19 16:33 Dose: 800 mg Sodium Chloride (Normal Saline 0.9%) 1,000 mls @ 75 mls/hr IV .[id number] [facility] Last Admin: 01/09/19 06:13 Dose: 1,000 mls Cefepime HCl 1 gm/ Sodium (Chloride) 100 mls @ 200 mls/hr IVPB Q24HR@1000 [facility] Last Admin: 01/09/19 09:52 Dose: 100 mls Vancomycin HCl 1 gm/ Device 200 mls @ 200 mls/hr IVPB Q24HR@1100 [facility] Last Admin: 01/09/19 11:26 Dose: 200 mls Levothyroxine Sodium (Synthroid) 125 mcg PO DAILY [facility] Last Admin: 01/09/19 09:58 Dose: Not Given Loperamide HCl (Imodium) 2 mg PO DAILY PRN PRN Reason: Diarrhea/Loose Stools Last Admin: 01/09/19 16:37 Dose: 2 mg Meloxicam (Mobic) 15 mg PO DAILY [facility] Last Admin: 01/09/19 09:54 Dose: 15 mg Metoprolol Tartrate (Lopressor) 25 mg PO BID [facility] Last Admin: 01/09/19 09:55 Dose: 25 mg Miscellaneous Medication (Pharmacy To Dose) 1 each IVPB PRN PRN PRN Reason: Pharmacy to dose Multivitamins (Theragran) 1 tab PO DAILY [facility] Last Admin: 01/09/19 09:55 Dose: 1 tab Nystatin (Mycostatin Powder) 5 gm TOP BID [facility] Oxybutynin Chloride (Ditropan) 10 mg PO DAILY [facility] Last Admin: 01/09/19 09:55 Dose: 10 mg Pantoprazole Sodium (Protonix) 40 mg PO QAM[facility] Potassium Chloride (Klor-Con 10) 10 meq PO DAILY [facility] Last Admin: 01/09/19 09:56 Dose: 10 meq Promethazine HCl/Codeine (Phenergan/Codeine Syrup) 5 ml PO Q6H PRN PRN Reason: COUGH Sodium Chloride (Flush - Normal Saline) 10 ml IVF PRN PRN PRN Reason: Saline Flush Throat Lozenges (Cepastat Lozenges) 1 mani PO Q2H PRN PRN Reason: Sore Throat Trospium (Trospium) 20 mg PO BID [facility] Valsartan (Diovan) 320 mg PO DAILY [facility] Last Admin: 01/09/19 09:53 Dose: 320 mg
[2019-01-09] MEDS ORDERED: GABAPENTIN 1600 MG PO SCH (17:00)
[2019-01-09 18:31] LABS: Vancomycin, Random 19.2 ug/mL (See Comment)
[2019-01-09] MEDS: Trospium 20 MG TAB PO SCH (20:36)
[2019-01-09] MEDS: Famotidine 20 MG TAB PO SCH (20:36)
[2019-01-09] MEDS: ALPRAZolam 0.25 MG TAB PO SCH (20:37)
[2019-01-09] MEDS: Nystatin Powder 15 GM BOT TOP SCH (20:38)
[2019-01-09] MEDS: Atorvastatin Calcium 10 MG TAB PO SCH (20:38)
[2019-01-09] MEDS ORDERED: Vancomycin HCl 1.5 GM in Sodium Chloride 0.9% 250 ML 300 ML IVPB SCH (21:00)
[2019-01-09] MEDS ORDERED: Non-Formulary Item 1 EACH (Zantac 150 MG) PO SCH (21:00)
[2019-01-09] MEDS: Cepastat Lozenges 1 LOZ PO PRN (21:30)
[2019-01-10] MEDS: Sodium Chloride 0.9% 1,000 ML IV SCH ×3 (01:15→18:12)
[2019-01-10] MEDS ORDERED: Non-Formulary Item 1 EACH (Esomeprazole Magnesium [Nexium] 40 MG) PO SCH (08:00)
--- NOTE | 2019-01-10 08:12 | RAD ---
F2 views chest. HISTORY: Cough. PA and lateral views the chest demonstrates elevation of the left hemidiaphragm. Areas of atelectasis or patchy pneumonia seen in the left lung base. No evidence of effusions seen. Severe left shoulder osteoarthritic changes seen. IMPRESSION: Elevated left hemidiaphragm.
[2019-01-10] MEDS: HYDROcodone/Acetaminophen 10/325 mg Tablet PO PRN ×2 (09:56→21:39)
[2019-01-10] MEDS: Trospium 20 MG TAB PO SCH ×2 (09:57→20:19)
[2019-01-10] MEDS: Levothyroxine Sodium 125 MCG TAB PO SCH (09:57)
[2019-01-10] MEDS: FLUoxetine HCl 20 MG CAP PO SCH (09:57)
[2019-01-10] MEDS: Valsartan 80 MG TAB PO SCH (09:57)
[2019-01-10] MEDS: Oxybutynin 5 MG TAB PO SCH (09:58)
[2019-01-10] MEDS: Metoprolol Tartrate 25 MG TAB PO SCH ×2 (09:58→20:18)
[2019-01-10] MEDS: Cholecalciferol (Vitamin D3) 400 UNITS TAB PO SCH (09:58)
[2019-01-10] MEDS: Multivit, Therapeutic 1 TAB PO SCH (09:59)
[2019-01-10] MEDS: Meloxicam 15 MG TAB PO SCH (09:59)
[2019-01-10] MEDS: Potassium Chloride 10 MEQ TAB PO SCH (10:00)
[2019-01-10] MEDS: Ascorbic Acid 500 mg Chewable Tablet PO SCH (10:00)
[2019-01-10] MEDS: Gabapentin 400 MG CAP PO SCH ×3 (10:00→20:19)
[2019-01-10] MEDS: Cefepime 1 GM in Sodium Chloride 0.9% 100 ML IVPB SCH (10:01)
[2019-01-10] MEDS: Nystatin Powder 15 GM BOT TOP SCH ×2 (10:01→20:20)
--- NOTE | 2019-01-10 11:42 | PDOC.PN ---
- Subjective Encounter Start Date: 01/10/19 Encounter Start Time: 10:45 Sitting up in bed. "I feel much better." Laryngitis yesterday, better today. Appetite returning. No N/V/diarrhea. Some cough. Denies pain. Sister Marissa at bedside. Encephalopathy/confusion much better than admit per patient and her sister. - Objective Resuscitation Status - Order Detail: 01/08/19 13:26 Resuscitation Status Routine Resuscitation Status: DNAR: NO Resuscitation Discussed with: Patient Vital Signs & Weight: Vital Signs (12 hours) Temp Pulse Resp BP Pulse Ox 01/10/19 08:00 98.4 F 93 18 172/96 H 100 01/10/19 04:00 98.2 F 86 18 155/82 H 99 01/10/19 00:00 98 F 86 18 158/81 H 99 Weight Weight 207 lb 11.2 oz I&O: 01/09/19 01/10/19 01/11/19 06:59 06:59 06:59 Intake Total 1300 3115 Balance 1300 3115 Result Diagrams: 01/09/19 05:50 01/09/19 05:50 Radiology Reviewed by me: Yes (Repeat CXR today elevated L hemidiaphragm, LLL atelectasis v infiltrate) Phys Exam - Physical Examination Constitutional: NAD HEENT: PERRLA, moist MMs Neck: no nodes, supple, full ROM Decreased BS lower lungs. Left mid with mild rales. No wheezes Cardiovascular: RRR Gastrointestinal: soft, non-tender Musculoskeletal: no edema Neurological: non-focal, moves all 4 limbs Psychiatric: normal affect Deviation from normal: Oriented to person and place, not to time Deviation from normal: rash under breasts/groin unchanged Dx/Plan (1) Urinary tract infection due to Klebsiella species Code(s): N39.0 - URINARY TRACT INFECTION, SITE NOT SPECIFIED; B96.1 - KLEBSIELLA PNEUMONIAE THE CAUSE OF DISEASES CLASSD ELSWHR Status: Acute Comment: Discussed with patient's daughter by phone, Tonie Santizo. Patient has tolerated levaquin before. De-escalate antibiotics today, jason due to h/o C dif in past. Needs to wean oxygen, maybe home 4/4. She has [facility] (2) Atelectasis Status: Acute Comment: Ordered IS. Wean oxygen (3) Rash Code(s): R21 - RASH AND OTHER NONSPECIFIC SKIN ERUPTION Status: Acute Comment: start Nystatin powder (4) NIKI (acute kidney injury) Code(s): N17.9 - ACUTE KIDNEY FAILURE, UNSPECIFIED Status: Resolved (5) Acute bronchitis Code(s): J20.9 - ACUTE BRONCHITIS, UNSPECIFIED Status: Acute Qualifiers: Bronchitis organism: unspecified organism Qualified Code(s): J20.9 - Acute bronchitis, unspecified Comment: Chronic changes, atelectasis v inf LLL on repeat CXR 01/10, treat with levaquin (6) GERD (gastroesophageal reflux disease) Code(s): K21.9 - GASTRO-ESOPHAGEAL REFLUX DISEASE WITHOUT ESOPHAGITIS Status: Chronic Qualifiers: Esophagitis presence: without esophagitis Qualified Code(s): K21.9 - Gastro -esophageal reflux disease without esophagitis Comment: stable (7) Hypertension Code(s): I10 - ESSENTIAL (PRIMARY) HYPERTENSION Status: Chronic Qualifiers: Hypertension type: essential hypertension Qualified Code(s): I10 - Essential (primary) hypertension Comment: resume home medications, monitor vital signs and titrate antihypertensives as needed (8) Hypothyroidism Code(s): E03.9 - HYPOTHYROIDISM, UNSPECIFIED Status: Chronic Comment: continue thyroid replacement (9) Physical deconditioning Code(s): R53.81 - OTHER MALAISE Status: Chronic (10) Sepsis Code(s): A41.9 - SEPSIS, UNSPECIFIED ORGANISM Status: Resolved Qualifiers: Sepsis type: sepsis due to unspecified organism Qualified Code(s): A41.9 - Sepsis, unspecified organism - Plan plan discussed w/ family, continue antibiotics, incentive spirometry, DVT proph w/lovenox * Pulm - Discussed with patient's daughter by phone, Tonie Santizo. Patient has tolerated levaquin before. De-escalate antibiotics today, jason due to h/o C dif in past. Needs to wean oxygen, maybe home 01/11. She has [facility]. * ID - Stop cefepime and vancomycin, start levaquin * Other as above
[2019-01-10] MEDS: Atorvastatin Calcium 10 MG TAB PO SCH (20:18)
[2019-01-10] MEDS: ALPRAZolam 0.25 MG TAB PO SCH (20:20)
[2019-01-10] MEDS: Famotidine 20 MG TAB PO SCH (20:20)
[2019-01-10] MEDS ORDERED: Vancomycin HCl 1.5 GM in Sodium Chloride 0.9% 250 ML 300 ML IVPB SCH (21:00)
[2019-01-10] MEDS ORDERED: Vancomycin HCl 1.25 GM in Sodium Chloride 0.9% 250 ML 250 ML IVPB SCH (21:00)
[2019-01-10] MEDS: Cepastat Lozenges 1 LOZ PO PRN (21:41)
[2019-01-11] MEDS: Metoprolol Tartrate 25 MG TAB PO SCH ×2 (04:54→20:20)
[2019-01-11] MEDS: Sodium Chloride 0.9% 1,000 ML IV SCH (06:27)
[2019-01-11] MEDS: Valsartan 80 MG TAB PO SCH (08:56)
[2019-01-11] MEDS: Trospium 20 MG TAB PO SCH ×2 (08:56→20:20)
[2019-01-11] MEDS: Gabapentin 400 MG CAP PO SCH ×3 (08:56→20:19)
[2019-01-11] MEDS: Meloxicam 15 MG TAB PO SCH (08:57)
[2019-01-11] MEDS: Oxybutynin 5 MG TAB PO SCH (08:57)
[2019-01-11] MEDS: HYDROcodone/Acetaminophen 10/325 mg Tablet PO PRN ×2 (08:57→15:11)
[2019-01-11] MEDS: Levothyroxine Sodium 125 MCG TAB PO SCH (08:58)
[2019-01-11] MEDS: Cholecalciferol (Vitamin D3) 400 UNITS TAB PO SCH (08:58)
[2019-01-11] MEDS: Ascorbic Acid 500 mg Chewable Tablet PO SCH (08:58)
[2019-01-11] MEDS: FLUoxetine HCl 20 MG CAP PO SCH (08:58)
[2019-01-11] MEDS: Potassium Chloride 10 MEQ TAB PO SCH (08:58)
[2019-01-11] MEDS: Multivit, Therapeutic 1 TAB PO SCH (08:58)
[2019-01-11] MEDS: Nystatin Powder 15 GM BOT TOP SCH ×2 (08:59→21:29)
[2019-01-11] MEDS: Atorvastatin Calcium 10 MG TAB PO SCH (20:20)
[2019-01-11] MEDS: Famotidine 20 MG TAB PO SCH (20:20)
[2019-01-11] MEDS ORDERED: diphenhydrAMINE 25 MG CAP PO SCH (21:00)
[2019-01-11] MEDS: ALPRAZolam 0.25 MG TAB PO SCH (21:28)
--- NOTE | 2019-01-11 21:58 | PDOC.PN ---
- Subjective Encounter Start Date: 01/11/19 Encounter Start Time: 13:00 Patient seen and examined for Pneumonia/UTI. Productive cough + No new complaints. No overnight events - Objective Resuscitation Status - Order Detail: 01/08/19 13:26 Resuscitation Status Routine Resuscitation Status: DNAR: NO Resuscitation Discussed with: Patient MAR Reviewed: Yes Vital Signs & Weight: Vital Signs (12 hours) Temp Pulse Resp BP Pulse Ox 01/11/19 21:33 79 178/98 H 01/11/19 19:37 98.2 F 65 18 182/76 H 95 01/11/19 17:24 97.8 F 81 18 177/85 H 97 01/11/19 13:54 82 18 157/80 H 95 Weight Weight 207 lb 11.2 oz I&O: 01/10/19 01/11/19 01/12/19 06:59 06:59 06:59 Intake Total 3115 240 Balance 3115 240 Result Diagrams: 01/09/19 05:50 01/09/19 05:50 Phys Exam - Physical Examination Constitutional: NAD Respiratory: no wheezing Scat rhonchi Cardiovascular: RRR, no rub Gastrointestinal: soft, non-tender, positive bowel sounds Musculoskeletal: no edema Dx/Plan - Plan DVT proph w/SCDs 1. Sepsis due to Klebsiella UTI/Pneumonia ?Pneumococcal 2. Obesity BMI 38 3. NIKI on CKD 3 4. GERD 5. Chronic resp failure 6. HTN/HLD PLAN: Cont Levaquin DC in 24-48 hr if stable Check Postvoid residual Cont other meds as below Review of Systems - Medications/Allergies Allergies/Adverse Reactions: Allergies Allergy/AdvReac Type Severity Reaction Status Date / Time amoxicillin Allergy Verified 11/06/18 17:37 amoxicillin trihydrate Allergy Diarrhea Verified 11/06/18 17:37 [From Augmentin] ciprofloxacin [From Cipro] Allergy Rash Verified 11/06/18 17:37 clavulanic acid Allergy Verified 11/06/18 17:37 [From Augmentin] clindamycin Allergy Verified 11/06/18 17:37 erythromycin base Allergy Verified 11/06/18 17:37 [From Erythrocin] erythromycin lactobionate Allergy Verified 11/06/18 17:37 [From Erythrocin] Latex, Natural Rubber Allergy Rash Verified 11/06/18 17:37 metolazone [Metolazone] Allergy Verified 11/06/18 17:37 nalbuphine Allergy Verified 11/06/18 17:37 nalbuphine HCl [From Nubain] Allergy Verified 11/06/18 17:37 oxycodone Allergy Verified 11/06/18 17:37 oxycodone HCl Allergy Rash Verified 11/06/18 17:37 [From OxyContin] potassium clavulanate Allergy Diarrhea Verified 11/06/18 17:37 [From Augmentin] Sulfa (Sulfonamide Allergy Rash Verified 11/06/18 17:37 Antibiotics) sulfamethoxazole Allergy Verified 11/06/18 17:37 [From Bactrim] trimethoprim [From Bactrim] Allergy Verified 11/06/18 17:37 zolpidem Allergy Verified 11/06/18 17:37 tramadol [From Ultram] AdvReac Intermediate Verified 11/06/18 17:37 zolpidem tartrate AdvReac Intermediate "crazy" Verified 11/06/18 17:37 [From Ambien] fentanyl [From Duragesic] AdvReac Mild Anxiety Verified 11/06/18 17:37 POTASSIUM CLAVULANATE Allergy Uncoded 11/06/18 17:37 Medications: Current Medications Acetaminophen (Tylenol) 650 mg PO Q4H PRN PRN Reason: Headache/Fever/Mild Pain (1-3) Hydrocodone Bitart/Acetaminophen ([place] 10/325) 1 tab PO Q4HR PRN PRN Reason: Moderate to Severe Pain (6-10) Last Admin: 01/11/19 15:11 Dose: 1 tab Albuterol Sulfate (Proventil Hfa) 1 puff INH Q4H PRN PRN Reason: SOB Albuterol/Ipratropium (Duoneb) 3 ml NEB [id number] PRN PRN Reason: SOB &/or Wheezing Alprazolam (Xanax) 0.25 mg PO HS [facility] Last Admin: 01/11/19 21:28 Dose: 0.25 mg Ascorbic Acid (Vitamin C) 500 mg PO DAILY [facility] Last Admin: 01/11/19 08:58 Dose: 500 mg Atorvastatin Calcium (Lipitor) 10 mg PO HS [facility] Last Admin: 01/11/19 20:20 Dose: 10 mg Benzonatate (Tessalon) 100 mg PO TIDPRN PRN PRN Reason: Cough Last Admin: 01/09/19 09:55 Dose: 100 mg Cholecalciferol (Vitamin D) 400 units PO DAILY [facility] Last Admin: 01/11/19 08:58 Dose: 400 units Diphenhydramine HCl (Benadryl) 25 mg PO HS [facility] Last Admin: 01/11/19 21:28 Dose: 25 mg Famotidine (Pepcid) 20 mg PO HS [facility] Last Admin: 01/11/19 20:20 Dose: 20 mg Fluoxetine HCl (Prozac) 20 mg PO DAILY [facility] Last Admin: 01/11/19 08:58 Dose: 20 mg Furosemide (Lasix) 20 mg PO DAILYPRN PRN PRN Reason: SOB Gabapentin (Neurontin) 1,600 mg PO BID [facility] Last Admin: 01/11/19 20:19 Dose: 1,600 mg Gabapentin (Neurontin) 800 mg PO 1500 [facility] Last Admin: 01/11/19 15:11 Dose: 800 mg Levofloxacin 750 mg/ Device 150 mls @ 100 mls/hr IVPB Q24HR [facility] Last Admin: 01/11/19 12:38 Dose: 150 mls Levothyroxine Sodium (Synthroid) 125 mcg PO DAILY [facility] Last Admin: 01/11/19 08:58 Dose: 125 mcg Loperamide HCl (Imodium) 2 mg PO DAILY PRN PRN Reason: Diarrhea/Loose Stools Last Admin: 01/09/19 16:37 Dose: 2 mg Meloxicam (Mobic) 15 mg PO DAILY [facility] Last Admin: 01/11/19 08:57 Dose: 15 mg Metoprolol Tartrate (Lopressor) 25 mg PO BID [facility] Last Admin: 01/11/19 20:20 Dose: 25 mg Multivitamins (Theragran) 1 tab PO DAILY [facility] Last Admin: 01/11/19 08:58 Dose: 1 tab Nystatin (Mycostatin Powder) 5 gm TOP BID [facility] Last Admin: 01/11/19 21:29 Dose: 1 applic Oxybutynin Chloride (Ditropan) 10 mg PO DAILY [facility] Last Admin: 01/11/19 08:57 Dose: 10 mg Pantoprazole Sodium (Protonix) 40 mg PO QAM-[facility] Last Admin: 01/11/19 08:55 Dose: 40 mg Potassium Chloride (Klor-Con 10) 10 meq PO DAILY [facility] Last Admin: 01/11/19 08:58 Dose: 10 meq Promethazine HCl/Codeine (Phenergan/Codeine Syrup) 5 ml PO Q6H PRN PRN Reason: COUGH Saccharomyces Boulardii (Florastor) 250 mg PO DAILY [facility] Sodium Chloride (Flush - Normal Saline) 10 ml IVF PRN PRN PRN Reason: Saline Flush Throat Lozenges (Cepastat Lozenges) 1 mani PO Q2H PRN PRN Reason: Sore Throat Last Admin: 01/10/19 21:41 Dose: 1 mani Trospium (Trospium) 20 mg PO BID [facility] Last Admin: 01/11/19 20:20 Dose: 20 mg Valsartan (Diovan) 320 mg PO DAILY [facility] Last Admin: 01/11/19 08:56 Dose: 320 mg
[2019-01-12] MEDS: HYDROcodone/Acetaminophen 10/325 mg Tablet PO PRN ×2 (06:25→14:22)
[2019-01-12] MEDS: Trospium 20 MG TAB PO SCH (08:39)
[2019-01-12] MEDS: Ascorbic Acid 500 mg Chewable Tablet PO SCH (08:39)
[2019-01-12] MEDS: Cholecalciferol (Vitamin D3) 400 UNITS TAB PO SCH (08:40)
[2019-01-12] MEDS: FLUoxetine HCl 20 MG CAP PO SCH (08:40)
[2019-01-12] MEDS: Levothyroxine Sodium 125 MCG TAB PO SCH (08:40)
[2019-01-12] MEDS: Potassium Chloride 10 MEQ TAB PO SCH (08:40)
[2019-01-12] MEDS: Metoprolol Tartrate 25 MG TAB PO SCH (08:40)
[2019-01-12] MEDS: Oxybutynin 5 MG TAB PO SCH (08:40)
[2019-01-12] MEDS: Multivit, Therapeutic 1 TAB PO SCH (08:40)
[2019-01-12] MEDS: Valsartan 80 MG TAB PO SCH (08:40)
[2019-01-12] MEDS: Meloxicam 15 MG TAB PO SCH (08:40)
[2019-01-12] MEDS: Nystatin Powder 15 GM BOT TOP SCH (08:41)
[2019-01-12] MEDS: Gabapentin 400 MG CAP PO SCH ×2 (08:41→14:22)
[2019-01-12] MEDS ORDERED: Saccharomyces boulardii 250 MG CAP PO SCH (09:00)
[2019-01-12] MEDS ORDERED: guaiFENesin ER 600 MG TAB PO SCH (09:00)
[2019-01-12 11:44] VITALS: BP 151/80; TEMP 98.3
--- NOTE | 2019-01-12 13:44 | DIS ---
DATE OF ADMISSION: 01/08/2019 DATE OF DISCHARGE: 01/12/2019 DISCHARGE DISPOSITION: Home. FOLLOW-UP: Follow up with primary care physician, Dr. Deepak Ricardo, in 1 week. DIAGNOSTIC TESTS: WBC on admission 12.6. Next day, was 8.3. Sodium 134 with potassium 4.6. Creatinine on admission 1.49, at discharge 0.92. Urinalysis showed greater than 50 wbc's. Blood cultures negative. Urine culture showed Klebsiella sensitive to quinolones. Chest x-ray on admission was negative for infiltrate. Repeat chest x-ray on 10 January showed patchy pneumonia at the left lung base. The patient was seen and examined on the day of discharge. Denies any new complaints. No chest pain, shortness of breath, palpitations reported. Overall, she feels much better. BRIEF HOSPITAL COURSE: The patient is a 78-year-old female, who presented to the hospital with generalized weakness and cough. Her workup was consistent with sepsis secondary to UTI. A chest x-ray also showed left lower lobe infiltrate. She was initially started on vancomycin and cefepime. On 10 January 2019, antibiotics were switched to Levaquin by Dr. Nelson, after confirming with the patient's daughter. She has done well over the last 24 hours. Antibiotics will be switched to oral today. Due to history of Clostridium difficile colitis in the past, she was advised to take probiotics for at least a month. She appears stable for discharge. Plan was discussed with the patient. She stated understanding. FINAL DIAGNOSES: 1. Sepsis secondary to Klebsiella urinary tract infection as well as left lower lobe pneumonia, suspected pneumococcal. 2. Chronic kidney disease stage 3 with acute kidney injury. 3. Obesity with a body mass index of 38. 4. Hyponatremia. 5. Chronic anemia. 6. Chronic obstructive pulmonary disease. 7. Gastroesophageal reflux disease. 8. Hypertension. 9. Hyperlipidemia. 10. Hypothyroidism. 11. History of Clostridium difficile colitis. 12. Chronic respiratory failure, on home oxygen. 13. History of multiple episodes of pneumonia. 14. Mild swallow dysfunction. The patient is tolerating regular consistency. Speech Therapy recommended extra sauce/gravy. Small sips , controlled sips by straws. PLAN: Plan of care was discussed with the patient and the family. They stated understanding. Job ID: [id number]
== END 2019-01-12 16:12 | disposition home or self-care (01) | DRG 871 ==
LOC: ERS 08:25 → T4-A 12:52
PROVIDERS: ADMIT Internal Medicine; ATTEND Internal Medicine
DX: A41.9 Sepsis, unspecified organism (principal); J13 Pneumonia due to Streptococcus pneumoniae; N39.0 Urinary tract infection, site not specified; N17.9 Acute kidney failure, unspecified; J96.11 Chronic respiratory failure with hypoxia; J98.11 Atelectasis; J44.0 Chronic obstructive pulmonary disease with (acute) lower respiratory infection; K21.9 Gastro-esophageal reflux disease without esophagitis; R21 Rash and other nonspecific skin eruption; F41.9 Anxiety disorder, unspecified; F32.9 Major depressive disorder, single episode, unspecified; E03.9 Hypothyroidism, unspecified; I48.91 Unspecified atrial fibrillation; E78.5 Hyperlipidemia, unspecified; N18.3 Chronic kidney disease, stage 3 (moderate); I12.9 Hypertensive chronic kidney disease with stage 1 through stage 4 chronic kidney disease, or unspecified chronic kidney disease; E86.0 Dehydration; B96.1 Klebsiella pneumoniae [K. pneumoniae] as the cause of diseases classified elsewhere; J20.9 Acute bronchitis, unspecified; E66.9 Obesity, unspecified; E78.1 Pure hyperglyceridemia; D63.1 Anemia in chronic kidney disease; R13.10 Dysphagia, unspecified; Z87.01 Personal history of pneumonia (recurrent); Z91.040 Latex allergy status; Z88.1 Allergy status to other antibiotic agents; Z88.2 Allergy status to sulfonamides; Z88.8 Allergy status to other drugs, medicaments and biological substances; Z79.1 Long term (current) use of non-steroidal anti-inflammatories (NSAID); Z79.899 Other long term (current) drug therapy; Z68.38 Body mass index [BMI] 38.0-38.9, adult
CPT/HCPCS: 36415; 51701; 71045; 71046; 80048; 80053; 80202; 81003; 81015; 83605; 85025; 87040; 87077; 87086; 87186; 87804; 93005; 96361; 96365; 96367; A4353; J0692; J1650; J1956; J3370; J7050; Q0163

== ENCOUNTER 2019-02-13 14:59 | Inpatient (IN) | payer MEDICARE, OTHER ==
[~2019-02-13 14:59] MED LIST: ISOVUE-370 76%-LOCM 1 ML ONE
--- NOTE | 2019-02-13 15:48 | RAD ---
XR Chest 1 View Portable HISTORY: Productive cough COMPARISON: 01/08/2019 study FINDINGS: Heart size is enlarged. There are persistent bibasilar interstitial lung changes similar to the prior exam. Marked arthritic changes of left shoulder again noted. IMPRESSION: Cardiomegaly with persistent bibasilar lung change. Stable overall exam.
[2019-02-13 16:05] LABS: #Basophils 0.1 thou/uL (0.0-0.2); #Eosinphils 0.6 thou/uL (0.0-0.7); #Lymphocytes 2.8 thou/uL (1.20-3.40); #Monocytes 0.8 thou/uL (0.11-0.59); #Neutrophils 4.3 thou/uL (1.40-6.50); %Basophils 0.7 % (0.0-1.0); %Eosinophils 7.1 % (0.0-10.0); %Lymphocytes 32.7 % (21.0-51.0); %Monocytes 8.8 % (0.0-10.0); %Neutrophils 50.8 % (42.0-75.0); Hemoglobin 11.7 g/dL (12.0-16.0); Mean Corpuscular Hemoglobin 29.1 pg (27.0-31.0); Mean Platelet Volume 7.6 fL (7.4-10.4); Platelet Count 201 thou/uL (130-400); Red Blood Cell (RBC) Count 4.03 mill/uL (4.20-5.40); White Blood Cell (WBC) Count 8.5 thou/uL (4.8-10.8)
[2019-02-13 16:09] LABS: Bilirubin Negative (Negative); Blood, Urine Negative (Negative); Clarity CLEAR (Clear); Glucose, Urine (Dipstick) Negative (Negative); Leukocyte Negative (Negative); Nitrite Negative (Negative); Protein, Urine (Dipstick) Negative (Neg-Trace); Urobilinogen 0.2 mg/dL (0.2-1.0)
[2019-02-13 16:30] LABS: ALT (SGPT) 15 U/L (8-55); AST (SGOT) 23 U/L (5-34); Albumin 3.7 g/dL (3.4-4.8); Alkaline Phosphatase 119 U/L (40-150); Anion Gap 14 mmol/L (10-20); BUN (Urea Nitrogen) 27 mg/dL (9.8-20.1); Bilirubin, Total 0.3 mg/dL (0.2-1.2); CK (CPK) 25 U/L (29-168); Calc. Creatinine Clearance 0 mL/min (70-130); Calcium 9.1 mg/dL (7.8-10.44); Carbon Dioxide 25 mmol/L (23-31); Chloride 102 mmol/L (98-107); Estimated GFR-MDRD 39; Globulin 2.8 g/dL (2.4-3.5); Glucose 98 mg/dL (83-110); Potassium 4.6 mmol/L (3.5-5.1); Protein, Total 6.5 g/dL (6.0-8.3); Sodium 136 mmol/L (136-145)
--- NOTE | 2019-02-13 17:10 | CT ---
CT Brain WO Con History: [Altered mental status] Comparison: CT brain February 2018 Findings: No acute hemorrhage or infarct. No midline shift or mass effect. Ventricular size and extra -axial CSF spaces are similar. Large volume fluid within the left maxillary sinus with internal calcifications likely chronic fungal sinusitis. Impression: Chronic left maxillary likely fungal sinusitis. No acute intracranial abnormality.
[2019-02-13] MEDS ORDERED: Magnesium 2 GM/50 ML BAG (IN WATER) ONE (18:09)
[2019-02-13] MEDS ORDERED: Albuterol Sulfate 2.5 mg/3 ml Neb ONE (19:21)
--- NOTE | 2019-02-13 19:28 | CT ---
CT Chest W Con History: [Shortness of breath] Comparison: Chest radiograph same day. CT chest September 2018. Findings: The lungs are severely hypoinflated. Atelectatic changes are present in both lung bases. Li ngular atelectasis is present. No pneumothorax or effusion. Pulmonary trunk is markedly dilated at 4 cm. Ascending aorta measures up to 3.7 cm. Small prevascular lymph nodes. Upper abdomen is unremarkable. Severe degenerative changes of the left shoulder. No displaced rib fra cture. Impression: 1. Severe dilatation of the pulmonary trunk and left and right pulmonary arteries indicating pulmonar y arterial hypertension. 2. Severe lung hypoinflation without definite consolidation. 3. Marked cardiomegaly. 4. Severe degenerative changes left shoulder.
[2019-02-13 21:22] LABS: Troponin I 0.011 ng/mL (< 0.028)
[2019-02-13 22:29] VITALS: BMI 29.3
[2019-02-13] MEDS ORDERED: Bacteriostatic Water 30 ML VIAL FS PRN (23:00)
[2019-02-13] MEDS ORDERED: Ondansetron PF 4 MG/2 ML Vial IVP PRN (23:00)
[2019-02-13] MEDS ORDERED: Acetaminophen 325 MG TAB PO PRN (23:00)
[2019-02-13] MEDS ORDERED: Ondansetron ODT 4 MG TAB PO PRN (23:00)
[2019-02-13] MEDS ORDERED: Phenergan/Codeine 10-6.25mg/5ml UDCUP PO PRN (23:02)
[2019-02-13] MEDS ORDERED: Potassium Chloride 10 MEQ TAB PO PRN (23:02)
[2019-02-13] MEDS ORDERED: Loperamide HCl 2 MG CAP PO PRN (23:02)
[2019-02-13] MEDS ORDERED: PROVENTIL INHALER 6.7 G (200 INHALATIONS) INH PRN (23:02)
[2019-02-13] MEDS ORDERED: Furosemide 20 MG TAB PO PRN (23:02)
[2019-02-13 23:37] LABS: Troponin I 0.012 ng/mL (< 0.028)
[2019-02-13] MEDS ORDERED: methylPREDNISolone Sod Succ/PF 125 MG/2 ML VIAL IVP SCH (23:59)
[2019-02-14] MEDS: methylPREDNISolone Sod Succ 40 MG VIAL IVP SCH ×3 (00:11→11:32)
[2019-02-14] MEDS: Levothyroxine Sodium 125 MCG TAB PO SCH (05:58)
[2019-02-14 06:18] LABS: #Lymphocytes 1.1 thou/uL (1.20-3.40); #Monocytes 0.1 thou/uL (0.11-0.59); %Basophils 0.4 % (0.0-1.0); %Eosinophils 0.2 % (0.0-10.0); %Lymphocytes 11.6 % (21.0-51.0); %Monocytes 0.9 % (0.0-10.0); Hemoglobin 11.9 g/dL (12.0-16.0); Mean Corpuscular Hemoglobin 29.6 pg (27.0-31.0); Mean Corpuscular Volume 89.7 fL (78.0-98.0); Mean Platelet Volume 7.7 fL (7.4-10.4); Platelet Count 201 thou/uL (130-400); RBC Distribution Width 12.7 % (11.5-14.5); Red Blood Cell (RBC) Count 4.02 mill/uL (4.20-5.40); White Blood Cell (WBC) Count 9.2 thou/uL (4.8-10.8)
[2019-02-14 06:42] LABS: Anion Gap 17 mmol/L (10-20); BUN (Urea Nitrogen) 28 mg/dL (9.8-20.1); Calc. Creatinine Clearance 48 mL/min (70-130); Calcium 9.4 mg/dL (7.8-10.44); Carbon Dioxide 22 mmol/L (23-31); Chloride 103 mmol/L (98-107); Estimated GFR-MDRD 40; Glucose 191 mg/dL (83-110); Potassium 4.3 mmol/L (3.5-5.1); Sodium 138 mmol/L (136-145)
[2019-02-14] MEDS ORDERED: Non-Formulary Item 1 EACH (Esomeprazole Magnesium [Nexium] 40 MG) PO SCH (08:00)
--- NOTE | 2019-02-14 08:11 | HP ---
PRIMARY CARE PHYSICIAN: Dr. Deepak Ricardo. CODE STATUS: Full code. TIME OF EVALUATION: 11:15 p.m. CHIEF COMPLAINT: Change in mental status. HISTORY OF PRESENT ILLNESS: The is a 79-year-old female patient with past medical history of respiratory failure, dysphagia, anemia, AFib, GERD, hypothyroidism, hyperlipidemia, asthma, acute kidney failure, chronic bronchitis, hypertension, and COPD, came to the hospital after having change in mental status, with no clear triggers, no alleviating factors. The patient has associated fatigue and cough. The symptoms started since yesterday and she was also noted to be falling asleep during conversation. REVIEW OF SYSTEMS: CONSTITUTIONAL: No fever or chills. The patient reported generalized weakness. RESPIRATORY: No sputum production or shortness of breath. CARDIOVASCULAR: No chest pain. No palpitation. GASTROINTESTINAL: No nausea. No vomiting, diarrhea, or abdominal pain. BEHAVIORAL THERAPY COORDINATOR: No dizziness, headache, or feeling lightheaded. GENITOURINARY: No burning on urination. EXTREMITIES: No leg swelling. All other systems were reviewed and negative except for the findings mentioned above. PAST MEDICAL HISTORY: As mentioned in the HPI. FAMILY HISTORY: Reviewed and noncontributory for current presentation. PAST SURGICAL HISTORY: Cholecystectomy, hysterectomy, and back surgery. PSYCHIATRIC HISTORY: Depression and anxiety. SOCIAL HISTORY: The patient lives at home with family. Has home health. No alcohol, no drugs, no smoking history. KNOWN ALLERGIES: To amoxicillin, Bactrim, Cipro, clindamycin, erythromycin, fentanyl, latex, natural rubber, metolazone, nalbuphine, oxycodone, sulfa, sulfamethoxazole, tramadol, trimethoprim, and zolpidem. REPORTED MEDICATIONS: 1. Synthroid. 2. Valsartan. 3. Gabapentin. 4. Fluoxetine. 5. Furosemide. 6. Klor-Con. 7. Zantac. 8. [place]. 9. Atorvastatin. 10. Loperamide. 11. Alprazolam. 12. Centrum. 13. Vitamin D3. 14. Vitamin C. 15. Oxybutynin chloride. 16. Metoprolol. 17. Budesonide. 18. Symbicort. PHYSICAL EXAMINATION: VITAL SIGNS: Blood pressure 159/62 with heart rate 65, respiratory rate 16, temperature 98.3, and oxygen saturation 93% on room air. GENERAL APPEARANCE: The patient is lethargic. Can answer simple questions, not in acute distress. HEENT: Eyes, normal conjunctivae. Moist oral mucosa. Anicteric. NECK: No JVD. RESPIRATORY: Bilateral air entry. No rales. The patient has scattered wheezing. Symmetric expansion is decreased. CARDIOVASCULAR: Normal rate, regular rhythm. No murmurs. No gallop. No edema. ABDOMEN: Soft. Normal bowel sounds. MUSCULOSKELETAL: Baseline range of motion and strength. No tenderness. SKIN: Warm, intact. No pallor. No rash. No redness. Peripheral pulses are present. Capillary refill seems to be intact. NEURO: No evidence of any new focal weakness. Baseline speech. Cranial nerves seem to be intact. PSYCH: The patient is in good mood. No anxiety. Optimal judgment. LABORATORY DATA: CARDIOVASCULAR STUDIES: EKG showed atrial fibrillation with controlled ventricular response, incomplete LBBB. QRS duration 110, QT corrected 468. IMAGING STUDIES: Radiology; head CT was negative except for left maxillary sinus with internal calcification, likely fungal sinusitis. Chest x-ray was reviewed, cardiomegaly with persistent bibasilar lung changes, stable orbital exam. LABORATORY RESULTS: Labs were reviewed. The patient has white count 8.5, hemoglobin 11.7, MCV 91 with platelet count 201. Chemistry; sodium 136, potassium 4.6, chloride 102, carbon dioxide 25, anion gap 14, BUN 27, creatinine 1.82 and the previous one was 0.92, GFR 39, glucose 98, lactic acid 1.4, calcium 9.1, and total bilirubin 0.3. Rest of LFTs were negative. Urine was negative. ASSESSMENT AND PLAN: The patient will be placed in the hospital with following medical problems: 1. Chronic obstructive pulmonary disease exacerbation. The patient will be placed on nebs and steroids, oxygen support, no evidence of infection, can be started on antibiotics if any evidence of infection appears. 2. Hyperlipidemia. Continue atorvastatin. 3. History of anxiety and depression. Reconcile home medications. This problem is chronic and seems to be stable. 4. Acute hypoxic respiratory failure, presented with hypoxia. This places the patient at high risk for complication with hypoxia. 5. Deep venous thrombosis prophylaxis. Job ID: [id number]
[2019-02-14] MEDS: Saccharomyces boulardii 250 MG CAP PO SCH (08:31)
[2019-02-14] MEDS: guaiFENesin ER 600 MG TAB PO SCH ×2 (08:31→20:19)
[2019-02-14] MEDS: Ascorbic Acid 500 mg Chewable Tablet PO SCH (08:31)
[2019-02-14] MEDS: Trospium 20 MG TAB PO SCH ×2 (08:31→20:20)
[2019-02-14] MEDS: Metoprolol Tartrate 25 MG TAB PO SCH ×2 (08:32→20:20)
[2019-02-14] MEDS: Gabapentin 400 MG CAP PO SCH ×4 (08:32→20:19)
[2019-02-14] MEDS: Multivitamin W/ Minerals 1 TAB PO SCH (08:32)
[2019-02-14] MEDS: Meloxicam 15 MG TAB PO SCH (08:33)
[2019-02-14] MEDS: FLUoxetine HCl 20 MG CAP PO SCH (08:33)
[2019-02-14] MEDS: Cholecalciferol (Vitamin D3) 400 UNITS TAB PO SCH (08:34)
[2019-02-14] MEDS: Enoxaparin Sodium 30 MG/0.3 ML SYRINGE SC SCH (08:34)
[2019-02-14] MEDS: Valsartan 80 MG TAB PO SCH (08:34)
[2019-02-14] MEDS: Oxybutynin ER 5 MG TAB PO SCH (08:39)
[2019-02-14] MEDS ORDERED: MULTIVITAMIN PO SCH (09:00)
[2019-02-14] MEDS ORDERED: Tolterodine Tartrate LA 4 MG CAP PO SCH (09:00)
[2019-02-14] MEDS ORDERED: FOLIC ACID PO SCH (09:00)
[2019-02-14] MEDS ORDERED: [UNRECOGNIZED DRUG - OTHER] PO SCH (09:00)
[2019-02-14] MEDS ORDERED: IRON PO SCH (09:00)
[2019-02-14] MEDS: HYDROcodone/Acetaminophen 10/325 mg Tablet PO PRN (11:48)
[2019-02-14 13:34] LABS: Actual Bicarbonate (HCO3a) 20.8 mEq/L (22-28); Base Excess (BEa) -3.2 mEq/L (-2.0 to +3.0); Calcium, Ionized 1.15 mmol/L (1.12-1.30); Carboxyhemoglobin (COHb) 1.1 gm% (0.0-3.0); Hemoglobin (Hb) 12.4 g/dL (12.0-16.0); O2 Tension (PaO2) 66.9 mmHg (> 70.0); Potassium - ABG Lab 3.51 mmol/L (3.70-5.30); Puncture Site LRA; pH, Arterial 7.41 (7.35-7.45)
--- NOTE | 2019-02-14 16:34 | PDOC.PN ---
- Subjective Encounter Start Date: 02/14/19 Encounter Start Time: 16:32 Ms. Santizo was seen in follow-up of generalized weakness and steady decline. She is very sleepy but arousable. She denies feeling short of breath. She appears very weak and frail. - Objective Resuscitation Status - Order Detail: 02/13/19 22:53 Resuscitation Status Routine Resuscitation Status: DNAR: NO Resuscitation Discussed with: stated by pt MAR Reviewed: Yes Vital Signs & Weight: Vital Signs (12 hours) Temp Pulse Resp BP Pulse Ox 02/14/19 13:40 90 16 94 L 02/14/19 12:00 94 L 02/14/19 11:59 98.2 F 104 H 20 176/81 H 94 L 02/14/19 09:54 95 18 94 L 02/14/19 08:00 97.8 F 93 L 02/14/19 07:47 97.8 F 109 H 20 154/75 H 93 L 02/14/19 06:10 100 16 94 L Weight Weight 187 lb 9.814 oz I&O: 02/13/19 02/14/19 02/15/19 06:59 06:59 06:59 Intake Total 3 601 Balance 3 601 Result Diagrams: 02/14/19 05:54 02/14/19 05:54 Phys Exam - Physical Examination HEENT: PERRLA Respiratory: no wheezing, no rales, no rhonchi, clear to auscultation bilateral Cardiovascular: RRR, no significant murmur, no rub Gastrointestinal: soft, non-tender, no distention, positive bowel sounds Musculoskeletal: pulses present, edema present + bruising in the upper extremities and skin tears Dx/Plan (1) Acute and chronic respiratory failure Code(s): J96.20 - ACUTE AND CHR RESP FAILURE, UNSP W HYPOXIA OR HYPERCAPNIA Status: Acute Qualifiers: Respiratory failure complication: hypoxia Qualified Code(s): J96.21 - Acute and chronic respiratory failure with hypoxia Comment: Bipap in ER, now down to 2L O2 via NC, steroids decreased (2) Generalized weakness Code(s): R53.1 - WEAKNESS Status: Acute (3) Hypertension Code(s): I10 - ESSENTIAL (PRIMARY) HYPERTENSION Status: Chronic Qualifiers: (4) Hypothyroidism Code(s): E03.9 - HYPOTHYROIDISM, UNSPECIFIED Status: Chronic Qualifiers: Hypothyroidism type: unspecified (5) Obesity (BMI 30.0-34.9) Code(s): E66.9 - OBESITY, UNSPECIFIED Status: Chronic (6) Physical deconditioning Code(s): R53.81 - OTHER MALAISE Status: Chronic (7) COPD (chronic obstructive pulmonary disease) Status: Acute - Plan * Generalized weakness and altered mental status- her describes it as she fall asleep all the time, and has been progressively weaker. ABG was ordered but did not demonstrate CO2 retention. It is unclear why she continues to become weaker, it may be due to advanced age, and multiple fairly recent hospitalizations. In reviewing her records she was hospitalized 7 times in 2018 at our facility, and this is her 3rd admission this year. . * COPD- will transition her to oral steroids * Chronic sinusitis- thought to be fungal- will place her on Diflucan * Hypothyroidism- will check her TFT * HTN- blood pressure has been labile- will monitor * Prognosis is guarded
[2019-02-14] MEDS: Atorvastatin Calcium 10 MG TAB PO SCH (20:20)
[2019-02-14] MEDS: Famotidine 20 MG TAB PO SCH (20:20)
[2019-02-14] MEDS: ALPRAZolam 0.25 MG TAB PO SCH (20:20)
[2019-02-14] MEDS ORDERED: Non-Formulary Item 1 EACH (Zantac 150 MG) PO SCH (21:00)
[2019-02-15] MEDS: Levothyroxine Sodium 125 MCG TAB PO SCH (06:10)
[2019-02-15 06:36] LABS: Free T4 (Free Thyroxine) 1.09 ng/dL (0.70-1.48); Thyroid Stimulating Hormone 0.0822 uIU/mL (0.35-4.94)
[2019-02-15] MEDS: Saccharomyces boulardii 250 MG CAP PO SCH (08:22)
[2019-02-15] MEDS: FLUoxetine HCl 20 MG CAP PO SCH (08:22)
[2019-02-15] MEDS: Trospium 20 MG TAB PO SCH ×2 (08:22→20:42)
[2019-02-15] MEDS: Oxybutynin ER 5 MG TAB PO SCH (08:22)
[2019-02-15] MEDS: Fluconazole 100 MG TAB PO SCH (08:23)
[2019-02-15] MEDS: Metoprolol Tartrate 25 MG TAB PO SCH ×2 (08:23→20:42)
[2019-02-15] MEDS: predniSONE 20 MG TAB PO SCH (08:23)
[2019-02-15] MEDS: Ascorbic Acid 500 mg Chewable Tablet PO SCH (08:23)
[2019-02-15] MEDS: guaiFENesin ER 600 MG TAB PO SCH ×2 (08:23→20:42)
[2019-02-15] MEDS: Multivitamin W/ Minerals 1 TAB PO SCH (08:23)
[2019-02-15] MEDS: Gabapentin 400 MG CAP PO SCH ×3 (08:24→20:41)
[2019-02-15] MEDS: Cholecalciferol (Vitamin D3) 400 UNITS TAB PO SCH (08:24)
[2019-02-15] MEDS: Meloxicam 15 MG TAB PO SCH (08:25)
[2019-02-15] MEDS: Valsartan 80 MG TAB PO SCH (08:25)
[2019-02-15] MEDS: Enoxaparin Sodium 30 MG/0.3 ML SYRINGE SC SCH (08:26)
--- NOTE | 2019-02-15 16:06 | PDOC.PN ---
- Subjective Encounter Start Date: 02/15/19 Encounter Start Time: 16:04 Ms. Santizo was seen today in follow-up of altered mental status. She is awake , and alert. she does not have any complaints. Her nurse noted that she had some diarrhea. She also complains of some chest congestion, and a mild wheeze. - Objective Resuscitation Status - Order Detail: 02/13/19 22:53 Resuscitation Status Routine Resuscitation Status: DNAR: NO Resuscitation Discussed with: stated by pt MAR Reviewed: Yes Vital Signs & Weight: Vital Signs (12 hours) Temp Pulse Resp BP Pulse Ox 02/15/19 13:46 104 H 18 93 L 02/15/19 09:54 89 16 95 02/15/19 08:00 98.2 F 112 H 18 173/87 H 91 L 02/15/19 06:37 93 16 93 L Weight Weight 187 lb 9.814 oz I&O: 02/14/19 02/15/19 02/16/19 06:59 06:59 06:59 Intake Total 3 1111 500 Balance 3 1111 500 Result Diagrams: 02/14/19 05:54 02/14/19 05:54 Phys Exam - Physical Examination HEENT: PERRLA Respiratory: wheezing present Cardiovascular: RRR, no significant murmur, no rub Gastrointestinal: soft, non-tender, no distention, positive bowel sounds Musculoskeletal: pulses present, edema present Dx/Plan (1) Acute and chronic respiratory failure Code(s): J96.20 - ACUTE AND CHR RESP FAILURE, UNSP W HYPOXIA OR HYPERCAPNIA Status: Acute Qualifiers: Respiratory failure complication: hypoxia Qualified Code(s): J96.21 - Acute and chronic respiratory failure with hypoxia Comment: Bipap in ER, now down to 2L O2 via NC, steroids decreased (2) Generalized weakness Code(s): R53.1 - WEAKNESS Status: Acute (3) Hypertension Code(s): I10 - ESSENTIAL (PRIMARY) HYPERTENSION Status: Chronic Qualifiers: (4) Hypothyroidism Code(s): E03.9 - HYPOTHYROIDISM, UNSPECIFIED Status: Chronic Qualifiers: Hypothyroidism type: unspecified (5) Obesity (BMI 30.0-34.9) Code(s): E66.9 - OBESITY, UNSPECIFIED Status: Chronic (6) Physical deconditioning Code(s): R53.81 - OTHER MALAISE Status: Chronic (7) COPD (chronic obstructive pulmonary disease) Status: Acute - Plan * Acute on chronic respiratory failure- stable * HTN- blood pressure is labile * Diarrhea/loose stool- will check C. Diff * Hypothyroidism- stable * Physical Deconditioning * .
[2019-02-15] MEDS: HYDROcodone/Acetaminophen 10/325 mg Tablet PO PRN ×2 (18:16→23:37)
[2019-02-15] MEDS: Atorvastatin Calcium 10 MG TAB PO SCH (20:42)
[2019-02-15] MEDS: ALPRAZolam 0.25 MG TAB PO SCH (20:42)
[2019-02-15] MEDS: Famotidine 20 MG TAB PO SCH (20:42)
[2019-02-16] MEDS: Levothyroxine Sodium 125 MCG TAB PO SCH (02:59)
[2019-02-16] MEDS: Oxybutynin ER 5 MG TAB PO SCH (08:54)
[2019-02-16] MEDS: guaiFENesin ER 600 MG TAB PO SCH ×2 (08:54→20:23)
[2019-02-16] MEDS: Saccharomyces boulardii 250 MG CAP PO SCH (08:54)
[2019-02-16] MEDS: Metoprolol Tartrate 25 MG TAB PO SCH ×2 (08:54→20:24)
[2019-02-16] MEDS: Ascorbic Acid 500 mg Chewable Tablet PO SCH (08:55)
[2019-02-16] MEDS: FLUoxetine HCl 20 MG CAP PO SCH (08:56)
[2019-02-16] MEDS: Multivitamin W/ Minerals 1 TAB PO SCH (08:56)
[2019-02-16] MEDS: Fluconazole 100 MG TAB PO SCH (08:56)
[2019-02-16] MEDS: Trospium 20 MG TAB PO SCH ×2 (08:56→20:23)
[2019-02-16] MEDS: Valsartan 80 MG TAB PO SCH (08:56)
[2019-02-16] MEDS: predniSONE 20 MG TAB PO SCH (08:56)
[2019-02-16] MEDS: Meloxicam 15 MG TAB PO SCH (08:57)
[2019-02-16] MEDS: Cholecalciferol (Vitamin D3) 400 UNITS TAB PO SCH (08:58)
[2019-02-16] MEDS: Enoxaparin Sodium 30 MG/0.3 ML SYRINGE SC SCH (08:58)
[2019-02-16] MEDS: Gabapentin 400 MG CAP PO SCH ×3 (08:58→20:25)
[2019-02-16] MEDS: Vancomycin HCl 25 MG/ML Oral PO SCH ×3 (10:52→20:25)
--- NOTE | 2019-02-16 15:55 | PDOC.PN ---
- Subjective Encounter Start Date: 02/16/19 Encounter Start Time: 14:00 Ms. Santizo was seen today in follow-up of respiratory failure. She looks much better today than yesterday. She is sitting up in bed talking with her . She says she has had 2 large loose bowel movements today. - Objective Resuscitation Status - Order Detail: 02/13/19 22:53 Resuscitation Status Routine Resuscitation Status: DNAR: NO Resuscitation Discussed with: stated by pt MAR Reviewed: Yes Vital Signs & Weight: Vital Signs (12 hours) Temp Pulse Resp BP Pulse Ox 02/16/19 15:32 97.8 F 90 20 127/74 92 L 02/16/19 14:32 79 18 97 02/16/19 12:38 97.9 F 100 20 137/82 95 02/16/19 10:14 84 16 98 02/16/19 08:55 97 02/16/19 08:53 97.6 F 97 20 150/89 H 97 02/16/19 06:49 98 02/16/19 06:48 87 16 98 Weight Weight 187 lb 9.814 oz I&O: 02/15/19 02/16/19 02/17/19 06:59 06:59 06:59 Intake Total 1111 1930 Balance 1111 1930 Result Diagrams: 02/14/19 05:54 02/14/19 05:54 Phys Exam - Physical Examination HEENT: PERRLA Respiratory: no wheezing, no rales, no rhonchi, clear to auscultation bilateral Cardiovascular: RRR, no significant murmur, no rub Gastrointestinal: soft, non-tender, no distention, positive bowel sounds Musculoskeletal: pulses present, edema present trace pedal edema Dx/Plan (1) Acute and chronic respiratory failure Code(s): J96.20 - ACUTE AND CHR RESP FAILURE, UNSP W HYPOXIA OR HYPERCAPNIA Status: Acute Qualifiers: Respiratory failure complication: hypoxia Qualified Code(s): J96.21 - Acute and chronic respiratory failure with hypoxia Comment: Bipap in ER, now down to 2L O2 via NC, steroids decreased (2) Generalized weakness Code(s): R53.1 - WEAKNESS Status: Acute (3) Hypertension Code(s): I10 - ESSENTIAL (PRIMARY) HYPERTENSION Status: Chronic Qualifiers: (4) Hypothyroidism Code(s): E03.9 - HYPOTHYROIDISM, UNSPECIFIED Status: Chronic Qualifiers: Hypothyroidism type: unspecified (5) Obesity (BMI 30.0-34.9) Code(s): E66.9 - OBESITY, UNSPECIFIED Status: Chronic (6) Physical deconditioning Code(s): R53.81 - OTHER MALAISE Status: Chronic (7) COPD (chronic obstructive pulmonary disease) Status: Acute (8) Clostridium difficile diarrhea Code(s): A04.72 - ENTEROCOLITIS D/T CLOSTRIDIUM DIFFICILE, NOT SPCF RECUR Status: Acute - Plan * Respiratory failure- improved * C. Diff Colitis- will start oral Vancomycin * HTN- blood pressure is stable. * Hypothyroidism- stable- clinically euthyroid * Severe deconditioning * Hopefully home in 1-2 days after diarrhea slows down
[2019-02-16] MEDS: Famotidine 20 MG TAB PO SCH (20:23)
[2019-02-16] MEDS: ALPRAZolam 0.25 MG TAB PO SCH (20:23)
[2019-02-16] MEDS: Atorvastatin Calcium 10 MG TAB PO SCH (20:24)
[2019-02-17] MEDS: Vancomycin HCl 25 MG/ML Oral PO SCH ×3 (05:19→16:10)
[2019-02-17] MEDS: Levothyroxine Sodium 125 MCG TAB PO SCH (05:19)
[2019-02-17] MEDS: HYDROcodone/Acetaminophen 10/325 mg Tablet PO PRN (05:59)
[2019-02-17] MEDS: Ascorbic Acid 500 mg Chewable Tablet PO SCH (08:15)
[2019-02-17] MEDS: FLUoxetine HCl 20 MG CAP PO SCH (08:15)
[2019-02-17] MEDS: Cholecalciferol (Vitamin D3) 400 UNITS TAB PO SCH (08:15)
[2019-02-17] MEDS: Meloxicam 15 MG TAB PO SCH (08:15)
[2019-02-17] MEDS: Enoxaparin Sodium 30 MG/0.3 ML SYRINGE SC SCH (08:15)
[2019-02-17] MEDS: Gabapentin 400 MG CAP PO SCH ×2 (08:15→11:17)
[2019-02-17] MEDS: Multivitamin W/ Minerals 1 TAB PO SCH (08:15)
[2019-02-17] MEDS: Metoprolol Tartrate 25 MG TAB PO SCH (08:16)
[2019-02-17] MEDS: Trospium 20 MG TAB PO SCH (08:16)
[2019-02-17] MEDS: Saccharomyces boulardii 250 MG CAP PO SCH (08:16)
[2019-02-17] MEDS: predniSONE 20 MG TAB PO SCH (08:16)
[2019-02-17] MEDS: Fluconazole 100 MG TAB PO SCH (08:16)
[2019-02-17] MEDS: guaiFENesin ER 600 MG TAB PO SCH (08:16)
[2019-02-17] MEDS: Valsartan 80 MG TAB PO SCH (08:17)
[2019-02-17] MEDS: Oxybutynin ER 5 MG TAB PO SCH (11:18)
--- NOTE | 2019-02-17 13:55 | PDOC.PN ---
- Subjective Encounter Start Date: 02/17/19 Encounter Start Time: 13:52 Ms. Santizo was seen today in follow-up of C. Diff colitis. She does not have any complaints, and the diarrhea has improved. - Objective Resuscitation Status - Order Detail: 02/13/19 22:53 Resuscitation Status Routine Resuscitation Status: DNAR: NO Resuscitation Discussed with: stated by pt MAR Reviewed: Yes Vital Signs & Weight: Vital Signs (12 hours) Temp Pulse Resp BP Pulse Ox 02/17/19 09:37 98 16 95 02/17/19 08:25 97.4 F L 98 20 151/86 H 95 02/17/19 08:17 95 02/17/19 05:40 102 H 16 97 02/17/19 02:21 97 16 96 Weight Weight 187 lb 9.814 oz I&O: 02/16/19 02/17/19 02/18/19 06:59 06:59 06:59 Intake Total 1930 1460 Balance 1930 1460 Result Diagrams: 02/14/19 05:54 02/14/19 05:54 Phys Exam - Physical Examination HEENT: PERRLA Respiratory: no wheezing, no rales, no rhonchi, clear to auscultation bilateral Cardiovascular: RRR, no significant murmur, no rub Gastrointestinal: soft, non-tender, no distention, positive bowel sounds Musculoskeletal: no edema, pulses present Dx/Plan (1) Acute and chronic respiratory failure Code(s): J96.20 - ACUTE AND CHR RESP FAILURE, UNSP W HYPOXIA OR HYPERCAPNIA Status: Acute Qualifiers: Respiratory failure complication: hypoxia Qualified Code(s): J96.21 - Acute and chronic respiratory failure with hypoxia Comment: Bipap in ER, now down to 2L O2 via NC, steroids decreased (2) Generalized weakness Code(s): R53.1 - WEAKNESS Status: Acute (3) Hypertension Code(s): I10 - ESSENTIAL (PRIMARY) HYPERTENSION Status: Chronic Qualifiers: (4) Hypothyroidism Code(s): E03.9 - HYPOTHYROIDISM, UNSPECIFIED Status: Chronic Qualifiers: Hypothyroidism type: unspecified (5) Obesity (BMI 30.0-34.9) Code(s): E66.9 - OBESITY, UNSPECIFIED Status: Chronic (6) Physical deconditioning Code(s): R53.81 - OTHER MALAISE Status: Chronic (7) COPD (chronic obstructive pulmonary disease) Status: Acute (8) Clostridium difficile diarrhea Code(s): A04.72 - ENTEROCOLITIS D/T CLOSTRIDIUM DIFFICILE, NOT SPCF RECUR Status: Acute - Plan * C. Diff Colitis- her diarrhea has improved * Conjunctivitis-erythromycin ointment TID for 1 week and warm compress * She is stable for discharge home
[2019-02-17 15:35] VITALS: TEMP 98
[2019-02-17] MEDS ORDERED: hydrALAZINE 25 MG TAB PO SCH (16:00)
[2019-02-17 17:20] VITALS: BP 163/92
--- NOTE | 2019-02-17 18:00 | EKG ---
Test Reason : Blood Pressure : / mmHG Vent. Rate : 064 BPM Atrial Rate : 063 BPM P-R Int : 000 ms QRS Dur : 110 ms QT Int : 454 ms P-R-T Axes : 000 -47 028 degrees QTc Int : 468 ms Atrial fibrillation Left axis deviation Incomplete left bundle branch block Abnormal ECG Confirmed by JC REZA DO ([id number]), publishing editor ROMY CHAMBERS ([id number] on 02/17/2019 6:00:07 PM Referred By: Confirmed By:JC REZA DO
--- NOTE | 2019-02-18 04:15 | DIS ---
DATE OF ADMISSION: 02/14/2019 DATE OF DISCHARGE: 02/17/2019 PRIMARY CARE PHYSICIAN: Deepak Ricardo MD DISCHARGE DISPOSITION: Home. PRIMARY DISCHARGE DIAGNOSES: 1. Acute on chronic respiratory failure due to chronic obstructive pulmonary disease exacerbation. 2. Chronic obstructive pulmonary disease exacerbation. 3. Clostridium difficile colitis. 4. Chalazion of the right upper eyelid. 5. Atrial fibrillation. 6. Hypothyroidism. 7. Hyperlipidemia. 8. Hypertension. DISCHARGE MEDICATIONS: Include: 1. Oral vancomycin 250 mg p.o. q.i.d. 2. Florastor 250 mg daily. 3. Neosporin ophthalmic to the right eye daily. 4. Zantac 150 mg daily. 5. Diovan 320 mg daily. 6. Promethazine syrup q.6 as needed. 7. Klor-Con 10 mEq daily. 8. Oxybutynin 10 mg daily. 9. Multivitamin once a day. 10. Lopressor 25 mg daily. 11. Meloxicam 15 mg daily. 12. Levothyroxine 125 mcg p.o. daily. 13. Gabapentin 800 mg as directed. 14. Lasix 20 mg daily. 15. Fluoxetine 20 mg daily. 16. Nexium 40 mg daily. 17. Vitamin D3 of 400 units daily. 18. Lipitor 10 mg at bedtime. 19. Vitamin C 500 mg daily. 20. Alprazolam 0.25 mg at bedtime. 21. Albuterol inhaler q.4 hours as needed. PROCEDURES DONE DURING THE ADMISSION: The patient had a CT scan of the brain showing some chronic left maxillary sinusitis. The patient also had a CT scan of the chest showing severe dilatation of the pulmonary trunk and the left pulmonary arteries. Severe lung hypoinflation. There was marked cardiomegaly and severe degenerative joint disease of the left shoulder. CODE STATUS: DNAR. ALLERGIES: TO AMOXICILLIN, CIPROFLOXACIN, NALBUPHINE, TRAMADOL, ZOLPIDEM OR AMBIEN, AMOXICILLIN, FENTANYL, CIPRO, TRIMETHOPRIM SULFAMETHOXAZOLE, CLAVULANIC ACID, CLINDAMYCIN, ERYTHROMYCIN BASE, METOLAZONE, OXYCODONE, LATEX, AND SULFA. HOSPITAL COURSE: Ms. Santizo is a pleasant 79-year-old female, who presented to the emergency room with complaints of altered mental status. Her was concerned that she seemed more lethargic than usual. She was admitted and it was felt that she had acute on chronic respiratory failure secondary to chronic obstructive pulmonary disease exacerbation. She improved with regard to COPD within a matter of days, but then developed a recurrence of Clostridium difficile infection with some recurrent diarrhea. She was started on oral vancomycin and actually after a day or two on the oral vancomycin, she perked up quite a bit, was sitting up and eating, seemed like a completely different person, back to her baseline. We will be discharging her home in stable condition. She will also be placed on erythromycin ointment for a chalazion that was on the right upper eyelid and instructed to use warm compress to the area as well 3 times a day and she is to follow up with her primary care physician in 1 to 2 weeks. Job ID: [id number]
== END 2019-02-17 17:33 | disposition home or self-care (01) | DRG 190 ==
LOC: ERS 14:59 → T4-A 21:45 → OBSVTOIN 02-14 15:04
PROVIDERS: ADMIT Hospitalist; ATTEND Hospitalist
DX: J44.1 Chronic obstructive pulmonary disease with (acute) exacerbation (principal); J96.21 Acute and chronic respiratory failure with hypoxia; A04.72 Enterocolitis due to Clostridium difficile, not specified as recurrent; I48.91 Unspecified atrial fibrillation; K21.9 Gastro-esophageal reflux disease without esophagitis; Z66 Do not resuscitate; E03.9 Hypothyroidism, unspecified; E78.5 Hyperlipidemia, unspecified; I10 Essential (primary) hypertension; F41.9 Anxiety disorder, unspecified; F32.9 Major depressive disorder, single episode, unspecified; E66.9 Obesity, unspecified; R53.81 Other malaise; J32.9 Chronic sinusitis, unspecified; H00.11 Chalazion right upper eyelid; Z88.0 Allergy status to penicillin; Z91.040 Latex allergy status; Z88.2 Allergy status to sulfonamides; Z88.5 Allergy status to narcotic agent; Z79.899 Other long term (current) drug therapy; Z68.29 Body mass index [BMI] 29.0-29.9, adult
CPT/HCPCS: 36415; 51701; 70450; 71045; 71260; 80048; 80053; 81003; 82550; 82805; 83605; 83880; 84439; 84443; 84484; 85025; 87040; 87324; 87449; 87493; 93005; 94640; 96365; A4353; J1650; J2920; J3475; J7512; J7611; J7620; Q9966

== ENCOUNTER 2019-02-21 02:46 | Inpatient (IN) | payer MEDICARE, OTHER ==
[2019-02-21] MEDS ORDERED: Acetaminophen 500 MG TAB ONE (03:11)
[2019-02-21 03:26] LABS: #Basophils 0.1 thou/uL (0.0-0.2); #Eosinphils 0.7 thou/uL (0.0-0.7); #Lymphocytes 2.7 thou/uL (1.20-3.40); #Monocytes 1.3 thou/uL (0.11-0.59); %Basophils 0.4 % (0.0-1.0); %Eosinophils 3.9 % (0.0-10.0); %Lymphocytes 15.4 % (21.0-51.0); %Monocytes 7.1 % (0.0-10.0); %Neutrophils 73.3 % (42.0-75.0); Hemoglobin 13.1 g/dL (12.0-16.0); Mean Corpuscular HGB CONC 32.5 g/dL (32.0-36.0); Mean Corpuscular Hemoglobin 28.9 pg (27.0-31.0); Mean Corpuscular Volume 89.1 fL (78.0-98.0); Mean Platelet Volume 7.6 fL (7.4-10.4); Platelet Count 280 thou/uL (130-400); RBC Distribution Width 12.8 % (11.5-14.5); Red Blood Cell (RBC) Count 4.53 mill/uL (4.20-5.40); White Blood Cell (WBC) Count 17.7 thou/uL (4.8-10.8)
[2019-02-21 03:43] LABS: Bilirubin Negative (Negative); Blood, Urine Negative (Negative); Clarity CLEAR (Clear); Glucose, Urine (Dipstick) Negative (Negative); Leukocyte Negative (Negative); Nitrite Negative (Negative); Protein, Urine (Dipstick) Trace mg/dL (Neg-Trace); Specific Gravity, Urine 1.009 (1.002-1.036); Urobilinogen 0.2 mg/dL (0.2-1.0)
[2019-02-21 03:50] LABS: ALT (SGPT) 26 U/L (8-55); AST (SGOT) 19 U/L (5-34); Albumin 3.7 g/dL (3.4-4.8); Alkaline Phosphatase 109 U/L (40-150); Anion Gap 13 mmol/L (10-20); BUN (Urea Nitrogen) 23 mg/dL (9.8-20.1); Bilirubin, Total 0.3 mg/dL (0.2-1.2); Calc. Creatinine Clearance 0 mL/min (70-130); Carbon Dioxide 26 mmol/L (23-31); Chloride 99 mmol/L (98-107); Estimated GFR-MDRD 39; Globulin 3.2 g/dL (2.4-3.5); Glucose 102 mg/dL (83-110); Potassium 4.3 mmol/L (3.5-5.1); Protein, Total 6.9 g/dL (6.0-8.3); Sodium 134 mmol/L (136-145)
[2019-02-21] MEDS ORDERED: metroNIDAZOLE 500 MG/100 ML BAG ONE (04:51)
[2019-02-21] MEDS ORDERED: Vancomycin HCl 25 MG/ML Oral PO SCH (05:00)
--- NOTE | 2019-02-21 07:21 | CT ---
CT ABDOMEN AND PELVIS WITH IV CONTRAST: Date: 02/21/19 COMPARISON: CT chest dated 02/13/[address] abdomen/pelvis dated 12/13/17. FINDINGS: There is bibasilar atelectasis. The gallbladder is surgically absent. Pancreas is slightly atrophic. Adrenal glands and kidneys are unchanged. No focal hepatic lesion is evident. The spleen appears with in normal limits. No drainable fluid collection is evident. There is a mild amount of retained stool within the colon. Small bowel is of normal caliber. The appendix is not definitely visualized. The bladder, rectum, and perirectal soft tissues are unremarkable appearing. Prominent atrophy of the hip girdle musculature is stable. There is diffuse osteopenia. No definite acute osseous abnormality is evident. There is degenerative levoscoliosis of the lumbar spine. There is scattered degenerative change. IMPRESSION: 1. No definite acute CT abnormality demonstrated. Mild amount of retained stool within the colon. 2. Bibasilar atelectasis. 3. Other chronic findings as above. POS: BH
--- NOTE | 2019-02-21 07:29 | RAD ---
EXAM: Single view of the chest HISTORY: Fever COMPARISON: 02/13/2019 FINDINGS: Single view of the chest shows an enlarged but stable cardiomediastinal silhouette. Athero sclerotic calcifications are seen in the aorta. There is no evidence of consolidation, mass, or pleural effusion. The bones are unremarkable. IMPRESSION: No evidence of acute cardiopulmonary disease
[2019-02-21] MEDS ORDERED: Iopamidol 370 76% 100 ML VIAL ONE (10:35)
[2019-02-21] MEDS ORDERED: Acetaminophen 325 MG TAB PO PRN (10:59)
[2019-02-21] MEDS ORDERED: Ondansetron PF 4 MG/2 ML Vial IVP PRN (10:59)
[2019-02-21] MEDS ORDERED: Acetaminophen 650 MG Suppository PR PRN (10:59)
[2019-02-21 11:00] LABS: Magnesium 2.2 mg/dL (1.6-2.6)
[2019-02-21] MEDS: Sodium Chloride 0.9% 1,000 ML IV SCH (11:57)
[2019-02-21] MEDS ORDERED: Acetaminophen 325 MG TAB ONE (12:00)
--- NOTE | 2019-02-21 13:22 | CT ---
BRAIN CT WITHOUT IV CONTRAST: Date: 02/21/19 HISTORY: Altered mental status, minimally responsive. Fever. Diarrhea. COMPARISON: 02/13/19. FINDINGS: Stable bilateral chronic sinus disease. No focal mass or midline shift. No intra or extra-axial hemor rhage. The mastoids are clear. IMPRESSION: Extensive chronic sinus mucosal disease. No mass or bleed, or other acute process. POS: [facility]
[2019-02-21] MEDS ORDERED: hydrALAZINE 20 MG/ML VIAL ONE (15:08)
[2019-02-21] MEDS: hydrALAZINE 20 MG/ML VIAL SLOW IVP PRN (15:17)
[2019-02-21 15:51] LABS: Albumin 3.3 g/dL (3.4-4.8); Anion Gap 12 mmol/L (10-20); BUN (Urea Nitrogen) 20 mg/dL (9.8-20.1); Calc. Creatinine Clearance 0 mL/min (70-130); Calcium 8.6 mg/dL (7.8-10.44); Carbon Dioxide 23 mmol/L (23-31); Chloride 106 mmol/L (98-107); Estimated GFR-MDRD 46; Glucose 122 mg/dL (83-110); Phosphorus 3.9 mg/dL (2.3-4.7); Potassium 4.6 mmol/L (3.5-5.1); Sodium 136 mmol/L (136-145)
--- NOTE | 2019-02-21 17:15 | PDOC.EVN ---
Event Note - Event Note Event Note: patient seen and evaluated, dicscussed with Ej GONZALEZ. suggested ams ,etc may be from self medicating
--- NOTE | 2019-02-21 18:11 | HP ---
CHIEF COMPLAINT: Confusion and shortness of breath. HISTORY OF PRESENT ILLNESS: Ms. Santizo is a 79-year-old woman, who was recently discharged from the hospital on February 17, 2019, after being treated for C. diff and discharged on oral vancomycin. According to her daughter who is at bedside, the patient was doing well and had continued to take her oral antibiotics with no further watery stools and seemed to be back to her usual state of health until yesterday. She had an elevated temperature and began to seem more confused than her baseline. Overnight, she spiked a temperature again and according to the ED reports, she had a temperature of 102.6. Therefore, her called 911. The patient per EMS was noted to have a temperature of 102.8 and she had low sats at 80% taking shallow breaths. According to the daughter, who has called the patient's to verify details, she was not having any watery stools, but did have one semi-soft green stool and she did not have any blood in her stools. The patient had not complained of any pain. No known complaints. At present, the patient is very lethargic, only responding to painful stimuli, but able to follow commands. She remains on 2 L of oxygen by nasal cannula and saturations are 95%. The patient nods no when asked if she has any headache or pain. Also denies any extremity weakness or numbness. REVIEW OF SYSTEMS: Otherwise difficult to fully assess. PAST MEDICAL HISTORY: 1. Dysphagia. 2. Anemia. 3. Atrial fibrillation. 4. GERD. 5. Hypothyroid. 6. Hyperlipidemia. 7. Asthma. 8. CKD. 9. Chronic bronchitis. 10. Hypertension. 11. COPD. 12. Depression. 13. Anxiety. PAST SURGICAL HISTORY: 1. Cholecystectomy. 2. Hysterectomy. 3. Back surgery. SOCIAL HISTORY: The patient lives with her family at home. She has home health. No smoking or alcohol use. No drug use. ALLERGIES: 1. AMOXICILLIN. 2. AUGMENTIN. 3. BACTRIM. 4. CIPRO. 5. CLINDAMYCIN. 6. ERYTHROMYCIN. 7. FENTANYL. 8. METOLAZONE. 9. NALBUPHINE. 10. OXYCODONE. 11. SULFA. 12. TRAMADOL. 13. TRIMETHOPRIM. 14. ZOLPIDEM. CURRENT MEDICATIONS: 1. Synthroid. 2. Valsartan. 3. Gabapentin. 4. Loxitane. 5. Furosemide. 6. Klor-Con. 7. Nexium. 8. Zantac. 9. [place]. 10. Atorvastatin. 11. Loperamide. 12. Alprazolam. 13. Centrum. 14. Vitamin D3. 15. Vitamin C. 16. Oxybutynin chloride. 17. Metoprolol tartrate. 18. Budesonide. 19. Symbicort. PHYSICAL EXAMINATION: GENERAL: The patient appears lethargic and responsive to painful stimuli, able to attempt to follow some commands with poor effort. Per daughter, she states this is her baseline when she has done well. She frequently becomes very lethargic when out. VITAL SIGNS: Temperature 98.1, pulse 90, blood pressure 129/70, respirations 24, and O2 saturation 93% on 2 L. HEENT: Normocephalic and atraumatic. Pupils are equal, round, and reactive to light. Extraocular movement assessment limited as the patient falling asleep during interaction, but able to follow finger from [id number]. No nystagmus present. Oropharynx is clear. NECK: Supple. No stiffness or rigidity. No apparent tenderness. LUNGS: Clear bilaterally. CARDIAC: Regular rate and rhythm. ABDOMEN: Soft, obese, and nondistended. No guarding. No rigidity. No apparent tenderness with deep palpation. No palpable masses. EXTREMITIES: No lower leg edema or swelling. Infiltration of line with +2 pitting edema involving the left upper extremity up to her shoulder. I have removed the blood pressure cuff, which was on tightly. Nurse notified. NEUROLOGIC: Altered mental status at present, not responding to questions to assess for orientation, but she does respond to painful stimuli and then once awoken, able to follow some commands. IMAGING DATA: 1. Chest x-ray, 02/21/2019. No acute abnormalities. 2. CT abdomen and pelvis, 02/21/2019. No definite abnormalities present. Mild amount of retained stool within colon. Bibasilar atelectasis present. IMPRESSION AND PLAN: Ms. Santizo is a 79-year-old woman, who is being admitted for management of the followin. Altered mental status. The daughter states she often becomes very lethargic and sleepy when she is unwell. Given difficulty in assessing for orientation and no definite signs of infection, we will obtain a CT brain to rule out any intracranial abnormality. I have requested a bedside dysphagia screening to be done and NIH. Maintain n.p.o. until then. Continue IV fluids. 2. Hypoxia. The patient did have recent admission and normally on oxygen at home. She does not have any abnormalities noted on the chest x-ray. We will obtain D-dimer and if elevated, we will obtain a CT angiogram to rule out PE. 3. Acute kidney injury. Creatinine bumped to 1.31 and GFR 39. We will continue gentle hydration. IV will be removed and a new one placed on the right upper extremity given the left one has fully infiltrated with significant edema involving the left upper extremity. ER nurse is aware. We will continue to monitor. 4. Hypertension. Resume home medications once home medications verified. We will continue to monitor blood pressure. 5. Clostridium difficile. The patient is on vancomycin for recent Clostridium difficile. She has been asymptomatic from this. We will continue antibiotics. 6. Gastrointestinal prophylaxis. 7. Full code status. Her surrogate decision maker is her spouse, Norris Santizo, and daughter. The patient to be seen and evaluated by Dr. Pnia for further recommendations. Job ID: [id number]
[2019-02-21] MEDS: HYDROcodone/Acetaminophen 5/325 mg Tablet PO PRN ×2 (18:36→23:40)
[2019-02-21] MEDS: Metoprolol Tartrate 25 MG TAB PO SCH (21:27)
[2019-02-21] MEDS: Famotidine/PF 20 mg/2ml Vial SLOW IVP SCH (21:27)
[2019-02-21] MEDS: Atorvastatin Calcium 10 MG TAB PO SCH (21:27)
[2019-02-22] MEDS: hydrALAZINE 20 MG/ML VIAL SLOW IVP PRN ×4 (05:12→22:31)
[2019-02-22] MEDS: Levothyroxine Sodium 125 MCG TAB PO SCH (05:12)
[2019-02-22] MEDS: Sodium Chloride 0.9% 1,000 ML IV SCH (05:16)
[2019-02-22 05:45] LABS: #Eosinphils 0.4 thou/uL (0.0-0.7); #Monocytes 0.8 thou/uL (0.11-0.59); #Neutrophils 6.5 thou/uL (1.40-6.50); %Basophils 0.1 % (0.0-1.0); %Eosinophils 4.2 % (0.0-10.0); %Lymphocytes 20.8 % (21.0-51.0); %Monocytes 8.4 % (0.0-10.0); %Neutrophils 66.5 % (42.0-75.0); Hemoglobin 11.3 g/dL (12.0-16.0); Mean Corpuscular HGB CONC 32.9 g/dL (32.0-36.0); Mean Corpuscular Hemoglobin 29.4 pg (27.0-31.0); Mean Corpuscular Volume 89.4 fL (78.0-98.0); Mean Platelet Volume 7.8 fL (7.4-10.4); Platelet Count 268 thou/uL (130-400); Red Blood Cell (RBC) Count 3.86 mill/uL (4.20-5.40); White Blood Cell (WBC) Count 9.8 thou/uL (4.8-10.8)
[2019-02-22 06:06] LABS: Anion Gap 14 mmol/L (10-20); BUN (Urea Nitrogen) 14 mg/dL (9.8-20.1); Calc. Creatinine Clearance 84 mL/min (70-130); Calcium 8.7 mg/dL (7.8-10.44); Carbon Dioxide 20 mmol/L (23-31); Chloride 108 mmol/L (98-107); Estimated GFR-MDRD 65; Glucose 97 mg/dL (83-110); Potassium 3.7 mmol/L (3.5-5.1); Sodium 138 mmol/L (136-145)
[2019-02-22] MEDS: HYDROcodone/Acetaminophen 5/325 mg Tablet PO PRN ×3 (08:04→22:28)
[2019-02-22] MEDS: Metoprolol Tartrate 25 MG TAB PO SCH ×2 (08:05→21:37)
[2019-02-22] MEDS: Famotidine/PF 20 mg/2ml Vial SLOW IVP SCH ×2 (08:05→21:39)
[2019-02-22] MEDS: FLUoxetine HCl 20 MG CAP PO SCH (08:05)
[2019-02-22] MEDS: Valsartan 80 MG TAB PO SCH (08:05)
[2019-02-22] MEDS ORDERED: Non-Formulary Item 1 EACH (Oxybutynin Chloride [Oxybutynin Chloride Er] 10 MG) PO SCH (09:00)
[2019-02-22] MEDS ORDERED: Furosemide 20 MG TAB PO PRN (09:00)
[2019-02-22] MEDS ORDERED: IRON PO SCH (09:00)
[2019-02-22] MEDS ORDERED: [UNRECOGNIZED DRUG - OTHER] PO SCH (09:00)
[2019-02-22] MEDS ORDERED: FOLIC ACID PO SCH (09:00)
[2019-02-22] MEDS ORDERED: VANCOMYCIN HCL 250 MG PO SCH (09:00)
[2019-02-22] MEDS ORDERED: MULTIVITAMIN PO SCH (09:00)
[2019-02-22] MEDS: Oxybutynin 5 MG TAB PO SCH (09:55)
[2019-02-22] MEDS: Meloxicam 15 MG TAB PO SCH (09:55)
[2019-02-22] MEDS: Multivit, Therapeutic 1 TAB PO SCH (09:55)
[2019-02-22] MEDS: guaiFENesin ER 600 MG TAB PO SCH ×2 (09:55→21:37)
[2019-02-22] MEDS: Ascorbic Acid 500 mg Chewable Tablet PO SCH (09:55)
[2019-02-22] MEDS: Saccharomyces boulardii 250 MG CAP PO SCH (09:55)
[2019-02-22] MEDS ORDERED: Amlodipine 10 MG TAB PO SCH (10:45)
--- NOTE | 2019-02-22 11:27 | PDOC.PN ---
- Subjective Encounter Start Date: 02/22/19 Encounter Start Time: 07:45 -: old records requested/rev this morning pt had loose BM in her diapper, she is chronically weak, she was able to tell her name, , place - Objective Resuscitation Status - Order Detail: 02/22/19 10:40 Resuscitation Status Routine Resuscitation Status: DNAR: NO Resuscitation Discussed with: discussed with , patient MAR Reviewed: Yes Vital Signs & Weight: Vital Signs (12 hours) Temp Pulse Resp BP Pulse Ox 02/22/19 11:05 98 F 79 20 177/89 H 95 02/22/19 09:31 80 184/84 H 02/22/19 07:58 98.1 F 99 18 204/102 H 95 02/22/19 05:12 75 02/22/19 04:00 97.9 F 75 18 208/89 H 96 Weight Weight 217 lb 4.8 oz I&O: 02/21/19 02/22/19 02/23/19 06:59 06:59 06:59 Intake Total 960 Balance 960 Result Diagrams: 02/22/19 04:24 02/22/19 04:24 Radiology Reviewed by me: Yes (all test reviewed) EKG Reviewed by me: Yes (nsr) Phys Exam - Physical Examination Constitutional: NAD HEENT: PERRLA, moist MMs, sclera anicteric Neck: no JVD, supple Respiratory: no wheezing, no rales, no rhonchi Cardiovascular: no significant murmur, no rub Gastrointestinal: soft, non-tender, no distention, positive bowel sounds Musculoskeletal: no edema, pulses present Neurological: moves all 4 limbs Lymphatic: no nodes Psychiatric: normal affect, A&O x 3 Skin: no rash, normal turgor Dx/Plan (1) Acute kidney injury Code(s): N17.9 - ACUTE KIDNEY FAILURE, UNSPECIFIED Status: Acute Comment: due to pre-renal, volume deplation, improved (2) C. difficile diarrhea Code(s): A04.72 - ENTEROCOLITIS D/T CLOSTRIDIUM DIFFICILE, NOT SPCF RECUR Status: Acute Comment: already on treatment with PO vancomycin (3) Encephalopathy acute Code(s): G93.40 - ENCEPHALOPATHY, UNSPECIFIED Status: Acute Comment: may be due to medication interaction and dehydration, has been now baseline (4) Afib Code(s): I48.91 - UNSPECIFIED ATRIAL FIBRILLATION Status: Chronic Qualifiers: Comment: continue aspirin. Not on anticoagulation due to high risk of bleeding (5) Anxiety and depression Code(s): F41.8 - OTHER SPECIFIED ANXIETY DISORDERS Status: Chronic Comment: (6) COPD (chronic obstructive pulmonary disease) Status: Chronic Qualifiers: (7) Chronic low back pain Code(s): M54.5 - LOW BACK PAIN; G89.29 - OTHER CHRONIC PAIN Status: Chronic (8) GERD (gastroesophageal reflux disease) Code(s): K21.9 - GASTRO-ESOPHAGEAL REFLUX DISEASE WITHOUT ESOPHAGITIS Status: Chronic Qualifiers: Comment: (9) Hypertension Code(s): I10 - ESSENTIAL (PRIMARY) HYPERTENSION Status: Chronic Qualifiers: (10) Hypothyroidism Code(s): E03.9 - HYPOTHYROIDISM, UNSPECIFIED Status: Chronic Comment: continue thyroid replacement (11) Obesity (BMI 30-39.9) Code(s): E66.9 - OBESITY, UNSPECIFIED Status: Chronic (12) Physical deconditioning Code(s): R53.81 - OTHER MALAISE Status: Chronic - Plan cont current plan of care, plan discussed w/ family, continue antibiotics, PT/OT , social media specialist * will recheck C-diff * continue gentle IVF * I spoke with pt and her about code status and verified DNR * medication reviewed as below * symptomatic treatment * will add amlodipine for high BP * start PT/OT * as per , eventual plan to dc home when stable. Review of Systems - Review of Systems Constitutional: weakness. negative: fever, chills, sweats, malaise, other ENT: negative: Ear Pain, Ear Discharge, Nose Pain, Nose Discharge, Nose Congestion, Mouth Pain, Mouth Swelling, Throat Pain, Throat Swelling, Other Respiratory: negative: Cough, Dry, Shortness of Breath, Hemoptysis, SOB with Excertion, Pleuritic Pain, Sputum, Wheezing Cardiovascular: negative: chest pain, palpitations, orthopnea, paroxysmal nocturnal dyspnea, edema, light headedness, other Gastrointestinal: Diarrhea. negative: Nausea, Vomiting, Abdominal Pain, Constipation, Melena, Hematochezia, Other Genitourinary: negative: Dysuria, Frequency, Incontinence, Hematuria, Retention , Other Musculoskeletal: negative: Neck Pain, Shoulder Pain, Arm Pain, Back Pain, Hand Pain, Leg Pain, Foot Pain, Other Skin: negative: Rash, Lesions, Suleman, Bruising, Other - Medications/Allergies Allergies/Adverse Reactions: Allergies Allergy/AdvReac Type Severity Reaction Status Date / Time amoxicillin Allergy Verified 02/21/19 16:55 amoxicillin trihydrate Allergy Diarrhea Verified 02/21/19 16:55 [From Augmentin] ciprofloxacin [From Cipro] Allergy Rash Verified 02/21/19 16:55 clavulanic acid Allergy Verified 02/21/19 16:55 [From Augmentin] clindamycin Allergy Verified 02/21/19 16:55 erythromycin base Allergy Verified 02/21/19 16:55 [From Erythrocin] erythromycin lactobionate Allergy Verified 02/21/19 16:55 [From Erythrocin] Latex, Natural Rubber Allergy Rash Verified 02/21/19 16:55 metolazone [Metolazone] Allergy Verified 02/21/19 16:55 nalbuphine Allergy Verified 02/21/19 16:55 nalbuphine HCl [From Nubain] Allergy Verified 02/21/19 16:55 oxycodone Allergy Verified 02/21/19 16:55 oxycodone HCl Allergy Rash Verified 02/21/19 16:55 [From OxyContin] potassium clavulanate Allergy Diarrhea Verified 02/21/19 16:55 [From Augmentin] Sulfa (Sulfonamide Allergy Rash Verified 02/21/19 16:55 Antibiotics) sulfamethoxazole Allergy Verified 02/21/19 16:55 [From Bactrim] trimethoprim [From Bactrim] Allergy Verified 02/21/19 16:55 zolpidem Allergy Verified 02/21/19 16:55 tramadol [From Ultram] AdvReac Intermediate Verified 02/21/19 16:55 zolpidem tartrate AdvReac Intermediate "crazy" Verified 02/21/19 16:55 [From Ambien] fentanyl [From Duragesic] AdvReac Mild Anxiety Verified 02/21/19 16:55 POTASSIUM CLAVULANATE Allergy Uncoded 11/06/18 17:37 Medications: Current Medications Acetaminophen (Tylenol) 650 mg [place] Q4H PRN PRN Reason: Headache/Fever/Mild Pain (1-3) Acetaminophen (Tylenol) 650 mg PO Q4H PRN PRN Reason: Headache/Fever/Mild Pain (1-3) Last Admin: 02/21/19 12:04 Dose: 650 mg Hydrocodone Bitart/Acetaminophen ([place] 5/325) 1 tab PO Q6H PRN PRN Reason: Moderate Pain (4-6) Last Admin: 02/22/19 08:04 Dose: 1 tab Alprazolam (Xanax) 0.25 mg PO HS [facility] Amlodipine Besylate (Norvasc) 10 mg PO DAILY [facility] Amlodipine Besylate (Norvasc) 10 mg PO ONE [facility] Ascorbic Acid (Vitamin C) 500 mg PO DAILY [facility] Last Admin: 02/22/19 09:55 Dose: 500 mg Atorvastatin Calcium (Lipitor) 10 mg PO HS [facility] Last Admin: 02/21/19 21:27 Dose: 10 mg Famotidine (Pepcid) 20 mg SLOW IVP Q12HR [facility] Last Admin: 02/22/19 08:05 Dose: 20 mg Fluoxetine HCl (Prozac) 20 mg PO DAILY [facility] Last Admin: 02/22/19 08:05 Dose: 20 mg Furosemide (Lasix) 20 mg PO DAILY PRN PRN Reason: SOB &/or Wheezing Guaifenesin (Mucinex) 600 mg PO Q12HR [facility] Last Admin: 02/22/19 09:55 Dose: 600 mg Hydralazine HCl (Apresoline) 10 mg SLOW IVP Q4H PRN PRN Reason: SBP Greater Than 180 Last Admin: 02/22/19 09:55 Dose: 10 mg Sodium Chloride (Normal Saline 0.9%) 1,000 mls @ 55 mls/hr IV .[id number] [facility] Last Admin: 02/22/19 05:16 Dose: 1,000 mls Levothyroxine Sodium (Synthroid) 125 mcg PO 0600 [facility] Last Admin: 02/22/19 05:12 Dose: 125 mcg Meloxicam (Mobic) 15 mg PO DAILY [facility] Last Admin: 02/22/19 09:55 Dose: 15 mg Metoprolol Tartrate (Lopressor) 25 mg PO BID [facility] Last Admin: 02/22/19 08:05 Dose: 25 mg Multivitamins (Theragran) 1 tab PO DAILY [facility] Last Admin: 02/22/19 09:55 Dose: 1 tab Ondansetron HCl (Zofran) 4 mg IVP Q6H PRN PRN Reason: Nausea/Vomiting Oxybutynin Chloride (Ditropan) 10 mg PO DAILY [facility] Last Admin: 02/22/19 09:55 Dose: 10 mg Saccharomyces Boulardii (Florastor) 250 mg PO DAILY [facility] Last Admin: 02/22/19 09:55 Dose: 250 mg Sodium Chloride (Flush - Normal Saline) 10 ml IVF Q12HR [facility] Last Admin: 02/22/19 08:05 Dose: 10 ml Sodium Chloride (Flush - Normal Saline) 10 ml IVF PRN PRN PRN Reason: Saline Flush Valsartan (Diovan) 320 mg PO DAILY [facility] Last Admin: 02/22/19 08:05 Dose: 320 mg Vancomycin HCl (First Vancomycin) 250 mg PO QID [facility]
[2019-02-22] MEDS: Vancomycin HCl 25 MG/ML Oral PO SCH ×3 (12:28→21:37)
[2019-02-22 12:51] VITALS: BMI 33.7
--- NOTE | 2019-02-22 14:41 | CT ---
EXAM: CTA of the chest HISTORY: Shortness of breath; elevated d-dimer COMPARISON: 05/01/2018 TECHNIQUE: Multiple contiguous axial images were obtained a CTA of the chest with contrast per pulmon oniel embolism protocol. 3-D oblique MIP reformats and direct coronal reformats were performed. FINDINGS: HEART: Global cardiomegaly without focal cardiac abnormality. PULMONARY ARTERIES: Enlarged in caliber consistent with pulmonary hypertension. No filling defects to suggest pulmonary emboli. MEDIASTINUM: No hilar or mediastinal lymphadenopathy. LUNGS: No focal infiltrates or masses. PLEURAL SPACE: No pleural effusion or pneumothorax. CHEST WALL SOFT TISSUES: Unremarkable VISUALIZED OSSEOUS STRUCTURES: Degenerative changes in the spine. VISUALIZED SUBDIAPHRAGMATIC STRUCTURES: Unremarkable; the gallbladder has been removed IMPRESSION: No evidence of pulmonary thromboembolism
[2019-02-22] MEDS: Atorvastatin Calcium 10 MG TAB PO SCH (21:36)
[2019-02-22] MEDS: Gabapentin 400 MG CAP PO SCH (21:36)
[2019-02-22] MEDS: ALPRAZolam 0.25 MG TAB PO SCH (21:38)
[2019-02-23] MEDS: Sodium Chloride 0.9% 1,000 ML IV SCH ×2 (01:26→20:48)
[2019-02-23] MEDS: Levothyroxine Sodium 125 MCG TAB PO SCH (06:06)
[2019-02-23 06:45] LABS: Amphetamine Not Detected (NotDetected); Barbiturates Screen Not Detected (NotDetected); Benzodiazepine Screen Detected (NotDetected); Cocaine Metabolite Screen Not Detected (NotDetected); Medtox Control Line Valid? VALID (VALID); Medtox Reader # READER 1; Methadone Not Detected (NotDetected); Methamphetamine Not Detected (NotDetected); Opiate Screen Detected (NotDetected); Oxycodone Screen Not Detected (NotDetected); Phencyclidine (PCP) Not Detected (NotDetected); THC/Cannabinoid Screen Not Detected (NotDetected); Tricyclic Screen Not Detected (NotDetected)
[2019-02-23] MEDS: Oxybutynin 5 MG TAB PO SCH (09:00)
[2019-02-23] MEDS: Vancomycin HCl 25 MG/ML Oral PO SCH ×4 (09:00→21:48)
[2019-02-23] MEDS: Famotidine/PF 20 mg/2ml Vial SLOW IVP SCH ×2 (09:01→20:51)
[2019-02-23] MEDS: FLUoxetine HCl 20 MG CAP PO SCH (09:01)
[2019-02-23] MEDS: Multivit, Therapeutic 1 TAB PO SCH (09:01)
[2019-02-23] MEDS: Gabapentin 400 MG CAP PO SCH ×3 (09:01→20:55)
[2019-02-23] MEDS: Saccharomyces boulardii 250 MG CAP PO SCH (09:01)
[2019-02-23] MEDS: Valsartan 80 MG TAB PO SCH (09:01)
[2019-02-23] MEDS: guaiFENesin ER 600 MG TAB PO SCH ×2 (09:02→20:50)
[2019-02-23] MEDS: Amlodipine 10 MG TAB PO SCH (09:02)
[2019-02-23] MEDS: Ascorbic Acid 500 mg Chewable Tablet PO SCH (09:02)
[2019-02-23] MEDS: Meloxicam 15 MG TAB PO SCH (09:02)
[2019-02-23] MEDS: Metoprolol Tartrate 25 MG TAB PO SCH ×2 (09:02→20:50)
--- NOTE | 2019-02-23 11:14 | PDOC.PN ---
- Subjective Encounter Start Date: 02/23/19 Encounter Start Time: 07:45 Patient seen and examined. No new complaints. No overnight events - Objective Resuscitation Status - Order Detail: 02/22/19 10:40 Resuscitation Status Routine Resuscitation Status: DNAR: NO Resuscitation Discussed with: discussed with , patient MAR Reviewed: Yes Vital Signs & Weight: Vital Signs (12 hours) Temp Pulse Resp BP Pulse Ox 02/23/19 08:12 98.4 F 95 20 186/98 H 96 02/23/19 06:57 97 02/23/19 04:00 97.7 F 72 20 177/75 H 97 02/23/19 00:00 97.8 F 74 18 132/58 L 94 L Weight Admit Weight 217 lb 4.8 oz Weight 203 lb I&O: 02/22/19 02/23/19 02/24/19 06:59 06:59 06:59 Intake Total 960 2404 Output Total 900 Balance 960 1504 Result Diagrams: 02/22/19 04:24 02/22/19 04:24 EKG Reviewed by me: Yes Phys Exam - Physical Examination Constitutional: NAD HEENT: PERRLA, moist MMs, sclera anicteric Neck: no JVD, supple Respiratory: no wheezing, no rales, no rhonchi Cardiovascular: RRR, no significant murmur, no rub Gastrointestinal: soft, non-tender, no distention, positive bowel sounds Musculoskeletal: no edema, pulses present Neurological: non-focal, normal sensation Lymphatic: no nodes Psychiatric: normal affect Skin: no rash, normal turgor Dx/Plan (1) Acute kidney injury Code(s): N17.9 - ACUTE KIDNEY FAILURE, UNSPECIFIED Status: Acute Comment: due to pre-renal, volume deplation, improved (2) C. difficile diarrhea Code(s): A04.72 - ENTEROCOLITIS D/T CLOSTRIDIUM DIFFICILE, NOT SPCF RECUR Status: Acute Comment: already on treatment with PO vancomycin (3) Encephalopathy acute Code(s): G93.40 - ENCEPHALOPATHY, UNSPECIFIED Status: Acute Comment: may be due to medication interaction and dehydration, has been now baseline (4) Afib Code(s): I48.91 - UNSPECIFIED ATRIAL FIBRILLATION Status: Chronic Qualifiers: Comment: continue aspirin. Not on anticoagulation due to high risk of bleeding (5) Anxiety and depression Code(s): F41.8 - OTHER SPECIFIED ANXIETY DISORDERS Status: Chronic Comment: (6) COPD (chronic obstructive pulmonary disease) Status: Chronic Qualifiers: (7) Chronic low back pain Code(s): M54.5 - LOW BACK PAIN; G89.29 - OTHER CHRONIC PAIN Status: Chronic (8) GERD (gastroesophageal reflux disease) Code(s): K21.9 - GASTRO-ESOPHAGEAL REFLUX DISEASE WITHOUT ESOPHAGITIS Status: Chronic Qualifiers: Comment: (9) Hypertension Code(s): I10 - ESSENTIAL (PRIMARY) HYPERTENSION Status: Chronic Qualifiers: (10) Hypothyroidism Code(s): E03.9 - HYPOTHYROIDISM, UNSPECIFIED Status: Chronic Comment: continue thyroid replacement (11) Obesity (BMI 30-39.9) Code(s): E66.9 - OBESITY, UNSPECIFIED Status: Chronic (12) Physical deconditioning Code(s): R53.81 - OTHER MALAISE Status: Chronic - Plan cont current plan of care, plan discussed w/ family, continue antibiotics, PT/OT * today will continue all her home meds and she how she does * continue oral vancomycin * DC tele * transfer to medical * expecting discharge over weekend * medication reviewed as below * symptomatic treatment * discussed with daughter bedside. Review of Systems - Review of Systems ENT: negative: Ear Pain, Ear Discharge, Nose Pain, Nose Discharge, Nose Congestion, Mouth Pain, Mouth Swelling, Throat Pain, Throat Swelling, Other Respiratory: negative: Cough, Dry, Shortness of Breath, Hemoptysis, SOB with Excertion, Pleuritic Pain, Sputum, Wheezing Cardiovascular: negative: chest pain, palpitations, orthopnea, paroxysmal nocturnal dyspnea, edema, light headedness, other Gastrointestinal: negative: Nausea, Vomiting, Abdominal Pain, Diarrhea, Constipation, Melena, Hematochezia, Other Genitourinary: negative: Dysuria, Frequency, Incontinence, Hematuria, Retention , Other Musculoskeletal: negative: Neck Pain, Shoulder Pain, Arm Pain, Back Pain, Hand Pain, Leg Pain, Foot Pain, Other - Medications/Allergies Allergies/Adverse Reactions: Allergies Allergy/AdvReac Type Severity Reaction Status Date / Time amoxicillin Allergy Verified 02/21/19 16:55 amoxicillin trihydrate Allergy Diarrhea Verified 02/21/19 16:55 [From Augmentin] ciprofloxacin [From Cipro] Allergy Rash Verified 02/21/19 16:55 clavulanic acid Allergy Verified 02/21/19 16:55 [From Augmentin] clindamycin Allergy Verified 02/21/19 16:55 erythromycin base Allergy Verified 02/21/19 16:55 [From Erythrocin] erythromycin lactobionate Allergy Verified 02/21/19 16:55 [From Erythrocin] Latex, Natural Rubber Allergy Rash Verified 02/21/19 16:55 metolazone [Metolazone] Allergy Verified 02/21/19 16:55 nalbuphine Allergy Verified 02/21/19 16:55 nalbuphine HCl [From Nubain] Allergy Verified 02/21/19 16:55 oxycodone Allergy Verified 02/21/19 16:55 oxycodone HCl Allergy Rash Verified 02/21/19 16:55 [From OxyContin] potassium clavulanate Allergy Diarrhea Verified 02/21/19 16:55 [From Augmentin] Sulfa (Sulfonamide Allergy Rash Verified 02/21/19 16:55 Antibiotics) sulfamethoxazole Allergy Verified 02/21/19 16:55 [From Bactrim] trimethoprim [From Bactrim] Allergy Verified 02/21/19 16:55 zolpidem Allergy Verified 02/21/19 16:55 tramadol [From Ultram] AdvReac Intermediate Verified 02/21/19 16:55 zolpidem tartrate AdvReac Intermediate "crazy" Verified 02/21/19 16:55 [From Ambien] fentanyl [From Duragesic] AdvReac Mild Anxiety Verified 02/21/19 16:55 POTASSIUM CLAVULANATE Allergy Uncoded 11/06/18 17:37 Medications: Current Medications Acetaminophen (Tylenol) 650 mg [place] Q4H PRN PRN Reason: Headache/Fever/Mild Pain (1-3) Acetaminophen (Tylenol) 650 mg PO Q4H PRN PRN Reason: Headache/Fever/Mild Pain (1-3) Last Admin: 02/21/19 12:04 Dose: 650 mg Hydrocodone Bitart/Acetaminophen ([place] 5/325) 1 tab PO Q6H PRN PRN Reason: Moderate Pain (4-6) Last Admin: 02/22/19 22:28 Dose: 1 tab Hydrocodone Bitart/Acetaminophen ([place] 10/325) 1 tab PO Q4HR PRN PRN Reason: Pain Alprazolam (Xanax) 0.25 mg PO HS [facility] Last Admin: 02/22/19 21:38 Dose: 0.25 mg Amlodipine Besylate (Norvasc) 10 mg PO DAILY [facility] Last Admin: 02/23/19 09:02 Dose: 10 mg Ascorbic Acid (Vitamin C) 500 mg PO DAILY [facility] Last Admin: 02/23/19 09:02 Dose: 500 mg Atorvastatin Calcium (Lipitor) 10 mg PO HS [facility] Last Admin: 02/22/19 21:36 Dose: 10 mg Cholecalciferol (Vitamin D) units PO DAILY [facility] Famotidine (Pepcid) 20 mg SLOW IVP Q12HR [facility] Last Admin: 02/23/19 09:01 Dose: 20 mg Fluoxetine HCl (Prozac) 20 mg PO DAILY [facility] Last Admin: 02/23/19 09:01 Dose: 20 mg Furosemide (Lasix) 20 mg PO DAILY PRN PRN Reason: SOB &/or Wheezing Gabapentin (Neurontin) 1,600 mg PO BID [facility] Last Admin: 02/23/19 09:01 Dose: 1,600 mg Guaifenesin (Mucinex) 600 mg PO Q12HR [facility] Last Admin: 02/23/19 09:02 Dose: 600 mg Hydralazine HCl (Apresoline) 10 mg SLOW IVP Q4H PRN PRN Reason: SBP Greater Than 180 Last Admin: 02/22/19 22:31 Dose: 10 mg Sodium Chloride (Normal Saline 0.9%) 1,000 mls @ 55 mls/hr IV .[id number] [facility] Last Admin: 02/23/19 01:26 Dose: 1,000 mls Levothyroxine Sodium (Synthroid) 125 mcg PO 0600 [facility] Last Admin: 02/23/19 06:06 Dose: 125 mcg Meloxicam (Mobic) 15 mg PO DAILY [facility] Last Admin: 02/23/19 09:02 Dose: 15 mg Metoprolol Tartrate (Lopressor) 25 mg PO BID [facility] Last Admin: 02/23/19 09:02 Dose: 25 mg Multivitamins (Theragran) 1 tab PO DAILY [facility] Last Admin: 02/23/19 09:01 Dose: 1 tab Non-Formulary Medication (Gabapentin [Gabapentin]) 800 mg PO ASDIR [facility] Ondansetron HCl (Zofran) 4 mg IVP Q6H PRN PRN Reason: Nausea/Vomiting Oxybutynin Chloride (Ditropan) 10 mg PO DAILY [facility] Last Admin: 02/23/19 09:00 Dose: 10 mg Saccharomyces Boulardii (Florastor) 250 mg PO DAILY [facility] Last Admin: 02/23/19 09:01 Dose: 250 mg Sodium Chloride (Flush - Normal Saline) 10 ml IVF Q12HR [facility] Last Admin: 02/23/19 09:03 Dose: Not Given Sodium Chloride (Flush - Normal Saline) 10 ml IVF PRN PRN PRN Reason: Saline Flush Valsartan (Diovan) 320 mg PO DAILY [facility] Last Admin: 02/23/19 09:01 Dose: 320 mg Vancomycin HCl (First Vancomycin) 250 mg PO QID [facility] Last Admin: 02/23/19 09:00 Dose: 250 mg
--- NOTE | 2019-02-23 12:15 | PQF ---
CLINICAL DOCUMENTATION IMPROVEMENT CLARIFICATION FORM: ICD-10 Updated PLEASE DO AN ADDENDUM TO THE PROGRESS NOTE WITH ANY DOCUMENTATION UPDATES OR ADDITIONS AND CARRY THROUGH TO DC SUMMARY. THANK YOU. DATE: 02/23/19 ATTN : DR. NICHOLS Please exercise your independent, professional judgment in responding to the clarification form. Clinical indicators are provided on the bottom of this form for your review Please check appropriate box(s) to clarify if the following diagnosis has been ruled in or ruled out: "SEPSIS" [ x ] Ruled in diagnosis [x ] Continue to treat [ x ] Resolved [ ] Ruled out diagnosis [ ] Cannot rule out diagnosis [ ] Other diagnosis [ ] Unable to determine In addition, please specify: Present on Admission (POA): [x ] Yes [ ] No [ ] Unable to determine For continuity of documentation, please document condition throughout progress notes and discharge summary. Thank You. CLINICAL INDICATORS - SIGNS / SYMPTOMS / LABS ER NOTE: "SEPSIS" PULSE 117 TEMP 101.1 RR 26 RISKS: C DIFF ADVANCED AGE TREATMENT: URINE AND BLOOD CULTURES VANCOMYCIN (ER-PRESENT) IV FLUIDS (ER-PRESENT) IV METRONIDAZOLE (ER) [employer] Winform Viewer(This form is maintained as a part of the permanent medical record) 2014 [employer]. All Rights Reserved [email or web address] Office: [phone] JAROD
--- NOTE | 2019-02-23 12:23 | PQF ---
CLINICAL DOCUMENTATION IMPROVEMENT CLARIFICATION FORM: ICD-10 Updated PLEASE DO AN ADDENDUM TO THE PROGRESS NOTE WITH ANY DOCUMENTATION UPDATES OR ADDITIONS AND CARRY THROUGH TO DC SUMMARY. THANK YOU. DATE: 02/23/19 ATTN: DR. NICHOLS Please exercise your independent, professional judgment in responding to the clarification form. Clinical indicators are provided on the bottom of this form for your review Please check appropriate box(s): [ x ] Encephalopathy: Type: [x ] Acute [ ] Subacute [ ] Chronic Etiology: [ ] Hypertensive [ x ] Metabolic [ ] Toxic [ ] Hepatic with Coma [ ] Hepatic w/o Coma [ ] Hypoxic [ x ] Septic [ ] Drug induced: [ ] Unspecified [ ] in the setting of underlying dementia [ ] Other (please specify) [ ] Transient Alteration of Awareness [ ] Other diagnosis [ ] Unable to determine In addition, please specify: Present on Admission (POA): [ x ] Yes [ ] No [ ] Unable to determine For continuity of documentation, please document condition throughout progress notes and discharge summary. Thank You. 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 All Rights Reserved VITALY [email or web address] Office: [phone] [facility]
--- NOTE | 2019-02-23 12:28 | PQF ---
CLINICAL DOCUMENTATION IMPROVEMENT CLARIFICATION FORM: ICD-10 Updated PLEASE DO AN ADDENDUM TO THE PROGRESS NOTE WITH ANY DOCUMENTATION UPDATES OR ADDITIONS AND CARRY THROUGH TO DC SUMMARY. THANK YOU. DATE: 02/23/19 ATTN: DR. NICHOLS Please exercise your independent, professional judgment in responding to the clarification form. Clinical indicators are provided on the bottom of this form for your review Please check appropriate box(s): [ x ] Acute Respiratory Failure: [ x] with Hypoxia[ ] with Hypercapnia [ ] Acute On Chronic Respiratory Failure: [ ] with Hypoxia [ ] with Hypercapnia [ ] Acute Respiratory Failure due to: (etiology) [ ] ARDS (Acute Respiratory Distress Syndrome) [ ] Chronic Respiratory Failure only [ ] with Hypoxia [ ] with Hypercapnia [ ] Hypoxia [ ] Other diagnosis [ ] Unable to determine In addition, please specify: Present on Admission (POA): [x ] Yes [ ] No [ ] Unable to determine For continuity of documentation, please document condition throughout progress notes and discharge summary. Thank You. CLINICAL INDICATORS - SIGNS / SYMPTOMS / LABS ER NOTE: "SHALLOW RESPIRATIONS, INITIALLY SATTING 88% ON RA" PULSE 117 RR 26 RISKS: COPD ADVANCED AGE TREATMENT: NONREBREATHER MASK CARDIAC MONITORING (This form is maintained as a part of the permanent medical record) 2015 [email or web address]. All Rights Reserved [employer] [email or web address] Office: [phone] [facility]
[2019-02-23] MEDS: HYDROcodone/Acetaminophen 10/325 mg Tablet PO PRN ×2 (14:24→19:34)
[2019-02-23] MEDS ORDERED: GABAPENTIN 1600 MG PO SCH (17:00)
[2019-02-23] MEDS: Atorvastatin Calcium 10 MG TAB PO SCH (20:50)
[2019-02-23] MEDS: ALPRAZolam 0.25 MG TAB PO SCH (22:41)
[2019-02-24] MEDS: Levothyroxine Sodium 125 MCG TAB PO SCH (05:36)
[2019-02-24] MEDS: Metoprolol Tartrate 25 MG TAB PO SCH ×2 (07:46→19:58)
[2019-02-24] MEDS: Multivit, Therapeutic 1 TAB PO SCH (07:47)
[2019-02-24] MEDS: Gabapentin 400 MG CAP PO SCH ×3 (07:47→19:57)
[2019-02-24] MEDS: guaiFENesin ER 600 MG TAB PO SCH ×2 (07:47→19:58)
[2019-02-24] MEDS: Ascorbic Acid 500 mg Chewable Tablet PO SCH (07:47)
[2019-02-24] MEDS: Oxybutynin 5 MG TAB PO SCH (07:47)
[2019-02-24] MEDS: FLUoxetine HCl 20 MG CAP PO SCH (07:47)
[2019-02-24] MEDS: Vancomycin HCl 25 MG/ML Oral PO SCH ×4 (07:48→19:58)
[2019-02-24] MEDS: HYDROcodone/Acetaminophen 10/325 mg Tablet PO PRN ×4 (07:48→21:51)
[2019-02-24] MEDS: Famotidine/PF 20 mg/2ml Vial SLOW IVP SCH (07:48)
[2019-02-24] MEDS: Saccharomyces boulardii 250 MG CAP PO SCH (07:48)
[2019-02-24] MEDS: Amlodipine 10 MG TAB PO SCH (07:48)
[2019-02-24] MEDS: Cholecalciferol (Vitamin D3) 400 UNITS TAB PO SCH (09:28)
[2019-02-24] MEDS: Valsartan 80 MG TAB PO SCH (09:28)
[2019-02-24] MEDS: Meloxicam 15 MG TAB PO SCH (09:28)
--- NOTE | 2019-02-24 10:53 | PDOC.PN ---
- Subjective Encounter Start Date: 02/24/19 Encounter Start Time: 08:40 Patient seen and examined. No new complaints. No overnight events - Objective Resuscitation Status - Order Detail: 02/22/19 10:40 Resuscitation Status Routine Resuscitation Status: DNAR: NO Resuscitation Discussed with: discussed with , patient MAR Reviewed: Yes Vital Signs & Weight: Vital Signs (12 hours) Temp Pulse Resp BP BP Pulse Ox 02/24/19 07:48 70 174/99 H 02/24/19 07:45 96 02/24/19 07:35 98.4 F 70 19 174/99 H 96 02/24/19 05:39 178/84 H 02/24/19 04:00 97.7 F 66 16 190/98 H 96 02/24/19 00:00 97.6 F 66 16 160/80 H 98 Weight Admit Weight 217 lb 4.8 oz Weight 203 lb I&O: 02/23/19 02/24/19 02/25/19 06:59 06:59 06:59 Intake Total 2404 1550 Output Total 900 700 Balance 1504 850 Result Diagrams: 02/22/19 04:24 02/22/19 04:24 Phys Exam - Physical Examination Constitutional: NAD HEENT: PERRLA, moist MMs, sclera anicteric Neck: no JVD, supple Respiratory: no wheezing, no rales, no rhonchi Cardiovascular: RRR, no significant murmur, no rub Gastrointestinal: soft, non-tender, no distention, positive bowel sounds Musculoskeletal: no edema, pulses present Neurological: moves all 4 limbs Lymphatic: no nodes Psychiatric: normal affect Skin: no rash, normal turgor Dx/Plan (1) Acute kidney injury Code(s): N17.9 - ACUTE KIDNEY FAILURE, UNSPECIFIED Status: Acute Comment: due to pre-renal, volume deplation, improved (2) C. difficile diarrhea Code(s): A04.72 - ENTEROCOLITIS D/T CLOSTRIDIUM DIFFICILE, NOT SPCF RECUR Status: Acute Comment: already on treatment with PO vancomycin (3) Encephalopathy acute Code(s): G93.40 - ENCEPHALOPATHY, UNSPECIFIED Status: Acute Comment: may be due to medication interaction and dehydration, has been now baseline (4) Afib Code(s): I48.91 - UNSPECIFIED ATRIAL FIBRILLATION Status: Chronic Qualifiers: Comment: continue aspirin. Not on anticoagulation due to high risk of bleeding (5) Anxiety and depression Code(s): F41.8 - OTHER SPECIFIED ANXIETY DISORDERS Status: Chronic Comment: (6) COPD (chronic obstructive pulmonary disease) Status: Chronic Qualifiers: (7) Chronic low back pain Code(s): M54.5 - LOW BACK PAIN; G89.29 - OTHER CHRONIC PAIN Status: Chronic (8) GERD (gastroesophageal reflux disease) Code(s): K21.9 - GASTRO-ESOPHAGEAL REFLUX DISEASE WITHOUT ESOPHAGITIS Status: Chronic Qualifiers: Comment: (9) Hypertension Code(s): I10 - ESSENTIAL (PRIMARY) HYPERTENSION Status: Chronic Qualifiers: (10) Hypothyroidism Code(s): E03.9 - HYPOTHYROIDISM, UNSPECIFIED Status: Chronic Comment: continue thyroid replacement (11) Obesity (BMI 30-39.9) Code(s): E66.9 - OBESITY, UNSPECIFIED Status: Chronic (12) Physical deconditioning Code(s): R53.81 - OTHER MALAISE Status: Chronic - Plan cont current plan of care, continue antibiotics * DC IVF * change pepcid to PO * continue po vancomycin * medication reviewed as below * symptomatic treatment * continue PT/OT * discharge planning. Review of Systems - Review of Systems ENT: negative: Ear Pain, Ear Discharge, Nose Pain, Nose Discharge, Nose Congestion, Mouth Pain, Mouth Swelling, Throat Pain, Throat Swelling, Other Respiratory: negative: Cough, Dry, Shortness of Breath, Hemoptysis, SOB with Excertion, Pleuritic Pain, Sputum, Wheezing Cardiovascular: negative: chest pain, palpitations, orthopnea, paroxysmal nocturnal dyspnea, edema, light headedness, other Gastrointestinal: negative: Nausea, Vomiting, Abdominal Pain, Diarrhea, Constipation, Melena, Hematochezia, Other Genitourinary: negative: Dysuria, Frequency, Incontinence, Hematuria, Retention , Other Musculoskeletal: negative: Neck Pain, Shoulder Pain, Arm Pain, Back Pain, Hand Pain, Leg Pain, Foot Pain, Other - Medications/Allergies Allergies/Adverse Reactions: Allergies Allergy/AdvReac Type Severity Reaction Status Date / Time amoxicillin Allergy Verified 02/21/19 16:55 amoxicillin trihydrate Allergy Diarrhea Verified 02/21/19 16:55 [From Augmentin] ciprofloxacin [From Cipro] Allergy Rash Verified 02/21/19 16:55 clavulanic acid Allergy Verified 02/21/19 16:55 [From Augmentin] clindamycin Allergy Verified 02/21/19 16:55 erythromycin base Allergy Verified 02/21/19 16:55 [From Erythrocin] erythromycin lactobionate Allergy Verified 02/21/19 16:55 [From Erythrocin] Latex, Natural Rubber Allergy Rash Verified 02/21/19 16:55 metolazone [Metolazone] Allergy Verified 02/21/19 16:55 nalbuphine Allergy Verified 02/21/19 16:55 nalbuphine HCl [From Nubain] Allergy Verified 02/21/19 16:55 oxycodone Allergy Verified 02/21/19 16:55 oxycodone HCl Allergy Rash Verified 02/21/19 16:55 [From OxyContin] potassium clavulanate Allergy Diarrhea Verified 02/21/19 16:55 [From Augmentin] Sulfa (Sulfonamide Allergy Rash Verified 02/21/19 16:55 Antibiotics) sulfamethoxazole Allergy Verified 02/21/19 16:55 [From Bactrim] trimethoprim [From Bactrim] Allergy Verified 02/21/19 16:55 zolpidem Allergy Verified 02/21/19 16:55 tramadol [From Ultram] AdvReac Intermediate Verified 02/21/19 16:55 zolpidem tartrate AdvReac Intermediate "crazy" Verified 02/21/19 16:55 [From Ambien] fentanyl [From Duragesic] AdvReac Mild Anxiety Verified 02/21/19 16:55 POTASSIUM CLAVULANATE Allergy Uncoded 11/06/18 17:37 Medications: Current Medications Acetaminophen (Tylenol) 650 mg [place] Q4H PRN PRN Reason: Headache/Fever/Mild Pain (1-3) Acetaminophen (Tylenol) 650 mg PO Q4H PRN PRN Reason: Headache/Fever/Mild Pain (1-3) Last Admin: 02/21/19 12:04 Dose: 650 mg Hydrocodone Bitart/Acetaminophen ([place] 10/325) 1 tab PO Q4HR PRN PRN Reason: Moderate to Severe Pain (4-10) Last Admin: 02/24/19 07:48 Dose: 1 tab Alprazolam (Xanax) 0.25 mg PO HS [facility] Last Admin: 02/23/19 22:41 Dose: 0.25 mg Amlodipine Besylate (Norvasc) 10 mg PO DAILY [facility] Last Admin: 02/24/19 07:48 Dose: 10 mg Ascorbic Acid (Vitamin C) 500 mg PO DAILY [facility] Last Admin: 02/24/19 07:47 Dose: 500 mg Atorvastatin Calcium (Lipitor) 10 mg PO HS [facility] Last Admin: 02/23/19 20:50 Dose: 10 mg Cholecalciferol (Vitamin D) 200 units PO DAILY [facility] Last Admin: 02/24/19 09:28 Dose: 200 units Famotidine (Pepcid) 20 mg SLOW IVP Q12HR [facility] Last Admin: 02/24/19 07:48 Dose: 20 mg Fluoxetine HCl (Prozac) 20 mg PO DAILY [facility] Last Admin: 02/24/19 07:47 Dose: 20 mg Furosemide (Lasix) 20 mg PO DAILY PRN PRN Reason: SOB &/or Wheezing Gabapentin (Neurontin) 1,600 mg PO BID [facility] Last Admin: 02/24/19 07:47 Dose: 1,600 mg Gabapentin (Neurontin) 800 mg PO 1200 [facility] Last Admin: 02/23/19 12:12 Dose: 800 mg Guaifenesin (Mucinex) 600 mg PO Q12HR [facility] Last Admin: 02/24/19 07:47 Dose: 600 mg Hydralazine HCl (Apresoline) 10 mg SLOW IVP Q4H PRN PRN Reason: SBP Greater Than 180 Last Admin: 02/22/19 22:31 Dose: 10 mg Sodium Chloride (Normal Saline 0.9%) 1,000 mls @ 55 mls/hr IV .[id number] [facility] Last Admin: 02/23/19 20:48 Dose: 1,000 mls Levothyroxine Sodium (Synthroid) 125 mcg PO 0600 [facility] Last Admin: 02/24/19 05:36 Dose: 125 mcg Meloxicam (Mobic) 15 mg PO DAILY [facility] Last Admin: 02/24/19 09:28 Dose: 15 mg Metoprolol Tartrate (Lopressor) 25 mg PO BID [facility] Last Admin: 02/24/19 07:46 Dose: 25 mg Multivitamins (Theragran) 1 tab PO DAILY [facility] Last Admin: 02/24/19 07:47 Dose: 1 tab Ondansetron HCl (Zofran) 4 mg IVP Q6H PRN PRN Reason: Nausea/Vomiting Oxybutynin Chloride (Ditropan) 10 mg PO DAILY [facility] Last Admin: 02/24/19 07:47 Dose: 10 mg Saccharomyces Boulardii (Florastor) 250 mg PO DAILY [facility] Last Admin: 02/24/19 07:48 Dose: 250 mg Sodium Chloride (Flush - Normal Saline) 10 ml IVF Q12HR [facility] Last Admin: 02/24/19 07:49 Dose: Not Given Sodium Chloride (Flush - Normal Saline) 10 ml IVF PRN PRN PRN Reason: Saline Flush Valsartan (Diovan) 320 mg PO DAILY [facility] Last Admin: 02/24/19 09:28 Dose: 320 mg Vancomycin HCl (First Vancomycin) 250 mg PO QID [facility] Last Admin: 02/24/19 07:48 Dose: 250 mg
[2019-02-24] MEDS: Nystatin 500,000 UNITS/5 ML UDCUP SSW SCH ×3 (13:10→19:57)
[2019-02-24] MEDS: Atorvastatin Calcium 10 MG TAB PO SCH (19:58)
[2019-02-24] MEDS: Famotidine 20 MG TAB PO SCH (19:58)
[2019-02-24] MEDS: ALPRAZolam 0.25 MG TAB PO SCH (22:47)
[2019-02-25] MEDS: Levothyroxine Sodium 125 MCG TAB PO SCH (06:01)
[2019-02-25 07:27] VITALS: BP 170/77; TEMP 97.7
[2019-02-25] MEDS: Ascorbic Acid 500 mg Chewable Tablet PO SCH (08:36)
[2019-02-25] MEDS: Multivit, Therapeutic 1 TAB PO SCH (08:36)
[2019-02-25] MEDS: Gabapentin 400 MG CAP PO SCH (08:36)
[2019-02-25] MEDS: Saccharomyces boulardii 250 MG CAP PO SCH (08:36)
[2019-02-25] MEDS: guaiFENesin ER 600 MG TAB PO SCH (08:36)
[2019-02-25] MEDS: Oxybutynin 5 MG TAB PO SCH (08:36)
[2019-02-25] MEDS: Famotidine 20 MG TAB PO SCH (08:36)
[2019-02-25] MEDS: Metoprolol Tartrate 25 MG TAB PO SCH (08:37)
[2019-02-25] MEDS: HYDROcodone/Acetaminophen 10/325 mg Tablet PO PRN (08:37)
[2019-02-25] MEDS: Amlodipine 10 MG TAB PO SCH (08:37)
[2019-02-25] MEDS: FLUoxetine HCl 20 MG CAP PO SCH (08:37)
[2019-02-25] MEDS: Valsartan 80 MG TAB PO SCH (08:38)
[2019-02-25] MEDS: Vancomycin HCl 25 MG/ML Oral PO SCH (08:39)
[2019-02-25] MEDS: Nystatin 500,000 UNITS/5 ML UDCUP SSW SCH (08:48)
[2019-02-25] MEDS: Cholecalciferol (Vitamin D3) 400 UNITS TAB PO SCH (08:48)
[2019-02-25] MEDS: Meloxicam 15 MG TAB PO SCH (08:49)
--- NOTE | 2019-02-25 10:34 | PDOC.PN ---
- Subjective Encounter Start Date: 02/25/19 Encounter Start Time: 09:00 Patient seen and examined. No new complaints. No overnight events - Objective Resuscitation Status - Order Detail: 02/22/19 10:40 Resuscitation Status Routine Resuscitation Status: DNAR: NO Resuscitation Discussed with: discussed with , patient MAR Reviewed: Yes Vital Signs & Weight: Vital Signs (12 hours) Temp Pulse Resp BP Pulse Ox 02/25/19 08:37 67 02/25/19 08:00 96 02/25/19 07:19 97.7 F 67 20 170/77 H 96 02/25/19 04:24 97.9 F 61 16 145/77 H 97 02/24/19 23:50 97.5 F L 61 16 160/78 H 96 Weight Admit Weight 217 lb 4.8 oz Weight 203 lb I&O: 02/24/19 02/25/19 02/26/19 06:59 06:59 06:59 Intake Total 1550 1460 480 Output Total 700 600 Balance 850 860 480 Result Diagrams: 02/22/19 04:24 02/22/19 04:24 Phys Exam - Physical Examination Constitutional: NAD HEENT: PERRLA, moist MMs, sclera anicteric Neck: no JVD, supple Respiratory: no wheezing, no rales, no rhonchi Cardiovascular: RRR, no significant murmur, no rub Gastrointestinal: soft, non-tender, no distention, positive bowel sounds Musculoskeletal: no edema, pulses present Neurological: non-focal, normal sensation Lymphatic: no nodes Psychiatric: normal affect, A&O x 3 Skin: no rash, normal turgor Dx/Plan (1) Acute kidney injury Code(s): N17.9 - ACUTE KIDNEY FAILURE, UNSPECIFIED Status: Acute Comment: due to pre-renal, volume deplation, improved (2) C. difficile diarrhea Code(s): A04.72 - ENTEROCOLITIS D/T CLOSTRIDIUM DIFFICILE, NOT SPCF RECUR Status: Acute Comment: already on treatment with PO vancomycin (3) Encephalopathy acute Code(s): G93.40 - ENCEPHALOPATHY, UNSPECIFIED Status: Acute Comment: may be due to medication interaction and dehydration, has been now baseline (4) Afib Code(s): I48.91 - UNSPECIFIED ATRIAL FIBRILLATION Status: Chronic Qualifiers: Comment: continue aspirin. Not on anticoagulation due to high risk of bleeding (5) Anxiety and depression Code(s): F41.8 - OTHER SPECIFIED ANXIETY DISORDERS Status: Chronic Comment: (6) COPD (chronic obstructive pulmonary disease) Status: Chronic Qualifiers: (7) Chronic low back pain Code(s): M54.5 - LOW BACK PAIN; G89.29 - OTHER CHRONIC PAIN Status: Chronic (8) GERD (gastroesophageal reflux disease) Code(s): K21.9 - GASTRO-ESOPHAGEAL REFLUX DISEASE WITHOUT ESOPHAGITIS Status: Chronic Qualifiers: Comment: (9) Hypertension Code(s): I10 - ESSENTIAL (PRIMARY) HYPERTENSION Status: Chronic Qualifiers: (10) Hypothyroidism Code(s): E03.9 - HYPOTHYROIDISM, UNSPECIFIED Status: Chronic Comment: continue thyroid replacement (11) Obesity (BMI 30-39.9) Code(s): E66.9 - OBESITY, UNSPECIFIED Status: Chronic (12) Physical deconditioning Code(s): R53.81 - OTHER MALAISE Status: Chronic - Plan cont current plan of care * medication reviewed as below * symptomatic treatment * stable for discharge * pt has all necessary needs at home. Review of Systems - Review of Systems ENT: negative: Ear Pain, Ear Discharge, Nose Pain, Nose Discharge, Nose Congestion, Mouth Pain, Mouth Swelling, Throat Pain, Throat Swelling, Other Respiratory: negative: Cough, Dry, Shortness of Breath, Hemoptysis, SOB with Excertion, Pleuritic Pain, Sputum, Wheezing Cardiovascular: negative: chest pain, palpitations, orthopnea, paroxysmal nocturnal dyspnea, edema, light headedness, other Gastrointestinal: negative: Nausea, Vomiting, Abdominal Pain, Diarrhea, Constipation, Melena, Hematochezia, Other Genitourinary: negative: Dysuria, Frequency, Incontinence, Hematuria, Retention , Other Musculoskeletal: negative: Neck Pain, Shoulder Pain, Arm Pain, Back Pain, Hand Pain, Leg Pain, Foot Pain, Other - Medications/Allergies Allergies/Adverse Reactions: Allergies Allergy/AdvReac Type Severity Reaction Status Date / Time amoxicillin Allergy Verified 02/21/19 16:55 amoxicillin trihydrate Allergy Diarrhea Verified 02/21/19 16:55 [From Augmentin] ciprofloxacin [From Cipro] Allergy Rash Verified 02/21/19 16:55 clavulanic acid Allergy Verified 02/21/19 16:55 [From Augmentin] clindamycin Allergy Verified 02/21/19 16:55 erythromycin base Allergy Verified 02/21/19 16:55 [From Erythrocin] erythromycin lactobionate Allergy Verified 02/21/19 16:55 [From Erythrocin] Latex, Natural Rubber Allergy Rash Verified 02/21/19 16:55 metolazone [Metolazone] Allergy Verified 02/21/19 16:55 nalbuphine Allergy Verified 02/21/19 16:55 nalbuphine HCl [From Nubain] Allergy Verified 02/21/19 16:55 oxycodone Allergy Verified 02/21/19 16:55 oxycodone HCl Allergy Rash Verified 02/21/19 16:55 [From OxyContin] potassium clavulanate Allergy Diarrhea Verified 02/21/19 16:55 [From Augmentin] Sulfa (Sulfonamide Allergy Rash Verified 02/21/19 16:55 Antibiotics) sulfamethoxazole Allergy Verified 02/21/19 16:55 [From Bactrim] trimethoprim [From Bactrim] Allergy Verified 02/21/19 16:55 zolpidem Allergy Verified 02/21/19 16:55 tramadol [From Ultram] AdvReac Intermediate Verified 02/21/19 16:55 zolpidem tartrate AdvReac Intermediate "crazy" Verified 02/21/19 16:55 [From Ambien] fentanyl [From Duragesic] AdvReac Mild Anxiety Verified 02/21/19 16:55 POTASSIUM CLAVULANATE Allergy Uncoded 11/06/18 17:37 Medications: Current Medications Acetaminophen (Tylenol) 650 mg [place] Q4H PRN PRN Reason: Headache/Fever/Mild Pain (1-3) Acetaminophen (Tylenol) 650 mg PO Q4H PRN PRN Reason: Headache/Fever/Mild Pain (1-3) Last Admin: 02/21/19 12:04 Dose: 650 mg Hydrocodone Bitart/Acetaminophen ([place] 10/325) 1 tab PO Q4HR PRN PRN Reason: Moderate to Severe Pain (4-10) Last Admin: 02/25/19 08:37 Dose: 1 tab Alprazolam (Xanax) 0.25 mg PO HS [facility] Last Admin: 02/24/19 22:47 Dose: 0.25 mg Amlodipine Besylate (Norvasc) 10 mg PO DAILY [facility] Last Admin: 02/25/19 08:37 Dose: 10 mg Ascorbic Acid (Vitamin C) 500 mg PO DAILY [facility] Last Admin: 02/25/19 08:36 Dose: 500 mg Atorvastatin Calcium (Lipitor) 10 mg PO HS [facility] Last Admin: 02/24/19 19:58 Dose: 10 mg Cholecalciferol (Vitamin D) 200 units PO DAILY [facility] Last Admin: 02/25/19 08:48 Dose: 200 units Famotidine (Pepcid) 20 mg PO BID [facility] Last Admin: 02/25/19 08:36 Dose: 20 mg Fluoxetine HCl (Prozac) 20 mg PO DAILY [facility] Last Admin: 02/25/19 08:37 Dose: 20 mg Furosemide (Lasix) 20 mg PO DAILY PRN PRN Reason: SOB &/or Wheezing Gabapentin (Neurontin) 1,600 mg PO BID [facility] Last Admin: 02/25/19 08:36 Dose: 1,600 mg Gabapentin (Neurontin) 800 mg PO 1200 [facility] Last Admin: 02/24/19 12:02 Dose: 800 mg Guaifenesin (Mucinex) 600 mg PO Q12HR [facility] Last Admin: 02/25/19 08:36 Dose: 600 mg Hydralazine HCl (Apresoline) 10 mg SLOW IVP Q4H PRN PRN Reason: SBP Greater Than 180 Last Admin: 02/22/19 22:31 Dose: 10 mg Levothyroxine Sodium (Synthroid) 125 mcg PO 0600 [facility] Last Admin: 02/25/19 06:01 Dose: 125 mcg Meloxicam (Mobic) 15 mg PO DAILY [facility] Last Admin: 02/25/19 08:49 Dose: 15 mg Metoprolol Tartrate (Lopressor) 25 mg PO BID [facility] Last Admin: 02/25/19 08:37 Dose: 25 mg Multivitamins (Theragran) 1 tab PO DAILY [facility] Last Admin: 02/25/19 08:36 Dose: 1 tab Nystatin (Mycostatin) 500,000 units SSW QID [facility] Last Admin: 02/25/19 08:48 Dose: 500,000 units Ondansetron HCl (Zofran) 4 mg IVP Q6H PRN PRN Reason: Nausea/Vomiting Oxybutynin Chloride (Ditropan) 10 mg PO DAILY [facility] Last Admin: 02/25/19 08:36 Dose: 10 mg Saccharomyces Boulardii (Florastor) 250 mg PO DAILY [facility] Last Admin: 02/25/19 08:36 Dose: 250 mg Sodium Chloride (Flush - Normal Saline) 10 ml IVF Q12HR [facility] Last Admin: 02/25/19 08:38 Dose: Not Given Sodium Chloride (Flush - Normal Saline) 10 ml IVF PRN PRN PRN Reason: Saline Flush Valsartan (Diovan) 320 mg PO DAILY [facility] Last Admin: 02/25/19 08:38 Dose: 320 mg Vancomycin HCl (First Vancomycin) 250 mg PO QID [facility] Last Admin: 02/25/19 08:39 Dose: 250 mg
--- NOTE | 2019-02-26 07:07 | DIS ---
DATE OF ADMISSION: 02/21/2019 DATE OF DISCHARGE: 02/25/2019 PRIMARY CARE PHYSICIAN: Dr. Deepak Ricardo. DISCHARGE DISPOSITION: Home. PRIMARY DISCHARGE DIAGNOSES: 1. Acute kidney injury, improved. 2. Clostridium difficile diarrhea, resolved. 3. Acute encephalopathy, improved. 4. Acute on chronic respiratory failure with hypoxia, resolved. 5. Sepsis, resolved. SECONDARY DISCHARGE DIAGNOSES: Chronic atrial fibrillation, anxiety, depression, chronic low back pain, chronic obstructive pulmonary disease, gastroesophageal reflux disease, hypertension, hypothyroidism, obesity with BMI 33, chronic physical deconditioning. PRIMARY PROCEDURE/OPERATION: None. RADIOLOGICAL INVESTIGATION: Chest x-ray unremarkable. CT of abdomen and pelvis unremarkable. CT angio negative for PE. CT brain negative for any acute process. SIGNIFICANT LABORATORY DATA: Hemoglobin 11.3. D-dimer 1.0. Sodium 139, creatinine 0.85. LFT normal. Urinalysis normal. Urine drug screen negative. Blood culture and respiratory virus panel came back negative. C diff negative. Influenza negative. Urine culture negative. DISCHARGE MEDICATIONS: The patient will continue all her previous medications. 1. Otley 1 tablet q.4 hourly p.r.n. 2. Phenergan with codeine cough syrup p.r.n. 3. Xanax 0.25 mg p.o. at bedtime. 4. Vitamin C 500 mg daily. 5. Lipitor 10 mg at bedtime. 6. Vitamin D3 200 units p.o. daily. 7. Nexium 40 mg daily. 8. Prozac 20 mg daily. 9. Lasix 20 mg daily. 10. Gabapentin 1600 mg b.i.d. and 800 mg in the afternoon. 11. Synthroid 125 mcg daily. 12. Imodium 2 mg daily. 13. Mobic 15 mg daily. 14. Metoprolol 25 mg p.o. b.i.d. 15. Multivitamin one tablet daily. 16. Oxybutynin 10 mg daily. 17. Potassium chloride 10 mEq daily p.r.n. 18. Valsartan 320 mg daily. 19. Zantac 150 mg at bedtime. 20. Mucinex 600 mg twice daily. 21. Florastor 250 mg p.o. daily. The patient needs to finish vancomycin 250 mg q.i.d. CONTRAINDICATION: None. CODE STATUS: DNR. INPATIENT GAS ENGINE OPERATOR GENERATORS: None. ALLERGIES: AUGMENTIN, CIPRO. DISCHARGE PLAN: Posthospital, the patient is discharged to home with family support. HOSPITAL COURSE: A 79-year-old female who was admitted by Emilie Chavira. Please see her H and P for further details. This patient was having altered mental status. Her CT brain was negative. She was found with elevated creatinine, which was related with dehydration, which was resolved with IV fluid hydration. The patient also had slightly elevated D-dimer, and that is why CT angio was done, which was negative for PE. In the emergency room, CT abdomen and pelvis was negative for any acute process. Chest x-ray was unremarkable. This patient stayed in telemetry floor, and subsequently we transferred her to medical floor. She was getting the C diff treatment before admission and which we continued while in hospital. We checked her stool for C diff that came back negative. We have ruled out complete infectious etiology with blood culture negative, urine culture negative, and respiratory virus panel negative. We resumed the patient on all her home medications while in hospital as well as we continued similar medication upon discharge. We are still suspicious that the patient has polypharmacy that may be contributing to her encephalopathy. At this point, the patient is back to her baseline level, and she will follow up with primary care physician. The patient and family member did not want her to go to fdc facility. The patient is seen and examined at bedside today. Please see my progress note from today for further details. Job ID: [id number]
== END 2019-02-25 11:46 | disposition home or self-care (01) | DRG 871 ==
LOC: ERS 02:46 → OBSVTOIN 06:33 → ERHOLD 06:33 → 2NO 16:17 → T4-B 02-23 13:37
PROVIDERS: ADMIT Hospitalist; ATTEND Hospitalist
DX: A41.9 Sepsis, unspecified organism (principal); G93.41 Metabolic encephalopathy; J96.21 Acute and chronic respiratory failure with hypoxia; N17.9 Acute kidney failure, unspecified; A04.72 Enterocolitis due to Clostridium difficile, not specified as recurrent; Z66 Do not resuscitate; D64.9 Anemia, unspecified; K21.9 Gastro-esophageal reflux disease without esophagitis; E03.9 Hypothyroidism, unspecified; E78.5 Hyperlipidemia, unspecified; F41.9 Anxiety disorder, unspecified; F32.9 Major depressive disorder, single episode, unspecified; G89.29 Other chronic pain; E66.9 Obesity, unspecified; E86.0 Dehydration; I48.2 Chronic atrial fibrillation; M54.5 Low back pain; J44.9 Chronic obstructive pulmonary disease, unspecified; Z68.33 Body mass index [BMI] 33.0-33.9, adult; Z88.1 Allergy status to other antibiotic agents; Z90.49 Acquired absence of other specified parts of digestive tract; Z90.710 Acquired absence of both cervix and uterus; Z88.2 Allergy status to sulfonamides; Z91.040 Latex allergy status; Z79.899 Other long term (current) drug therapy
CPT/HCPCS: 36415; 51701; 70450; 71045; 71275; 74177; 80048; 80053; 80306; 81003; 82550; 83605; 83690; 83735; 84145; 85025; 85379; 87040; 87086; 87324; 87449; 87633; 87804; 93005; 96360; 96361; 96365; A4353; J0360; Q9967; S0028

== ENCOUNTER 2019-03-06 23:07 | Inpatient (IN) | payer MEDICARE, OTHER ==
--- NOTE | 2019-03-06 23:43 | RAD ---
PORTABLE CHEST: Date: 03/06/19 HISTORY: Fever. COMPARISON: 02/21/19. FINDINGS: Cardiomegaly again noted. There is bibasilar atelectasis and/or infiltrates. Bilateral effusions. Upp er lung chance are clear. No evidence of vascular congestion. IMPRESSION: Bibasilar infiltrates or atelectasis, and small bilateral effusions. POS: [facility]
[2019-03-06 23:48] LABS: #Basophils 0.1 thou/uL (0.0-0.2); #Eosinphils 0.4 thou/uL (0.0-0.7); #Lymphocytes 1.5 thou/uL (1.20-3.40); #Monocytes 0.8 thou/uL (0.11-0.59); #Neutrophils 4.2 thou/uL (1.40-6.50); %Basophils 0.9 % (0.0-1.0); %Eosinophils 5.3 % (0.0-10.0); %Monocytes 10.9 % (0.0-10.0); %Neutrophils 60.9 % (42.0-75.0); Hemoglobin 10.9 g/dL (12.0-16.0); Mean Corpuscular HGB CONC 32.5 g/dL (32.0-36.0); Mean Corpuscular Hemoglobin 29.4 pg (27.0-31.0); Mean Corpuscular Volume 90.4 fL (78.0-98.0); Mean Platelet Volume 7.2 fL (7.4-10.4); Platelet Count 208 thou/uL (130-400); RBC Distribution Width 13.2 % (11.5-14.5); White Blood Cell (WBC) Count 6.8 thou/uL (4.8-10.8)
[2019-03-06] MEDS ORDERED: Acetaminophen 325 MG TAB ONE (23:49)
[2019-03-07 00:13] LABS: Albumin 3.5 g/dL (3.4-4.8)
[2019-03-07 00:14] LABS: Calcium 8.8 mg/dL (7.8-10.44); Chloride 103 mmol/L (98-107); Potassium 4.1 mmol/L (3.5-5.1); Sodium 137 mmol/L (136-145)
[2019-03-07 00:15] LABS: Globulin 2.4 g/dL (2.4-3.5); Glucose 114 mg/dL (83-110); Protein, Total 5.9 g/dL (6.0-8.3)
[2019-03-07 00:16] LABS: Carbon Dioxide 24 mmol/L (23-31)
[2019-03-07 00:17] LABS: Bilirubin, Total 0.3 mg/dL (0.2-1.2)
[2019-03-07 00:18] LABS: Alkaline Phosphatase 114 U/L (40-150)
[2019-03-07 00:19] LABS: BUN (Urea Nitrogen) 13 mg/dL (9.8-20.1); Calc. Creatinine Clearance 0 mL/min (70-130); Estimated GFR-MDRD 48
[2019-03-07 00:20] LABS: AST (SGOT) 14 U/L (5-34)
[2019-03-07 00:21] LABS: ALT (SGPT) 12 U/L (8-55)
[2019-03-07 00:28] LABS: Anion Gap 14 mmol/L (10-20)
[2019-03-07 02:59] LABS: Bilirubin Negative (Negative); Blood, Urine Negative (Negative); Clarity CLOUDY (Clear); Glucose, Urine (Dipstick) Negative (Negative); Leukocyte Large (Negative); Nitrite Positive (Negative); Protein, Urine (Dipstick) Trace mg/dL (Neg-Trace); Urobilinogen 0.2 mg/dL (0.2-1.0); pH, Urine 5.5 (5.0-9.0)
[2019-03-07 03:06] LABS: Bacteria/HPF None Seen HPF (None Seen); RBC/HPF None Seen HPF (0-3)
[2019-03-07 03:22] LABS: Hyaline Casts/LPF 0-3 HYALINE CAST LPF (0-3 Hyaline); Renal Epithelial None Seen HPF (0-3); Transitional Epithelial 0-3 HPF (0-3)
[2019-03-07] MEDS ORDERED: cefTRIAXone\\ROCEPHIN 2 GM VIAL ONE (03:42)
[2019-03-07] MEDS ORDERED: Acetaminophen 325 MG TAB PO PRN (06:49)
[2019-03-07] MEDS ORDERED: Ondansetron PF 4 MG/2 ML Vial IVP PRN (06:49)
[2019-03-07] MEDS ORDERED: Ondansetron ODT 4 MG TAB PO PRN (06:49)
[2019-03-07] MEDS ORDERED: Sodium Chloride 0.9% 1,000 ML IV SCH (08:45)
[2019-03-07] MEDS: Sodium Chloride 0.9% 1,000 ML IV SCH ×2 (10:24→21:17)
--- NOTE | 2019-03-07 11:30 | HP ---
CHIEF COMPLAINT: Fever. HISTORY OF PRESENT ILLNESS: The patient is a 79-year-old female, who according to the EMS report was having fever and chills with some nonproductive cough for approximately 2 weeks, although the patient denies that during the time of her admission to the hospital. She said that she had only fever. She did not have any dysuria. She notices urinary frequency. She was recently treated for Clostridium difficile colitis with vancomycin, which was finished several days ago and her bowel movements are normal now. She denies any chest pain. Some shortness of breath on and off. She is not ambulatory for several years. She uses her wheelchair. Noticed some cough, but she says that it is nothing new. This is chronic and it is not worse than what she had before. Temperature was up to 100.1. While in the emergency room, she was found to have urinary tract infection based on urinalysis and got treated with Rocephin and got admitted to the hospital. PAST MEDICAL HISTORY: 1. Anemia. 2. Chronic atrial fibrillation. 3. Hypothyroidism. 4. Hyperlipidemia. 5. Chronic bronchitis. 6. CKD. 7. Hypertension. 8. Depression. 9. Anxiety. 10. Gastroesophageal reflux disease. PAST SURGICAL HISTORY: 1. Cholecystectomy. 2. Hysterectomy. 3. Back surgery. ALLERGIES: MULTIPLE; AMOXICILLIN, AUGMENTIN, BACTRIM, CIPRO, CLINDAMYCIN, ERYTHROMYCIN, FENTANYL, METOLAZONE, NALBUPHINE, OXYCODONE, SULFA, TRAMADOL, TRIMETHOPRIM, AND ZOLPIDEM. SOCIAL HISTORY: She denies any alcohol intake, cigarette smoking, or illicit drug use. FAMILY HISTORY: Father had heart attack in his 60s. Her mother was in her 90s and she with old age. CURRENT MEDICATIONS: 1. Synthroid 125 mcg once a day. 2. Valsartan 325 mg once a day. 3. Gabapentin 800 mg twice a day. 4. Fluoxetine 20 mg once a day. 5. Furosemide 20 to 40 mg once a day. 6. Klor-Con 10 mEq once a day. 7. Nexium 40 mg once a day. 8. Zantac 300 mg once a day. 9. Trego 10/325 one tablet every 6 hours p.r.n. as needed. 10. Atorvastatin 10 mg at bedtime. 11. Loperamide 2 mg once a day. 12. Alprazolam 0.25 mg once a day. 13. Centrum Silver 1 tablet once a day. 14. Vitamin D3 of 200 units once a day. 15. Vitamin C 500 mg once a day. 16. Oxybutynin 5 mg once a day. 17. Metoprolol 25 mg twice a day. 18. Budesonide twice a day. 19. Symbicort 2 puffs twice a day. REVIEW OF SYSTEMS: CONSTITUTIONAL: Negative for chills and chest pain. Positive for fever. EYES: Negative for eye pain or eye discharge. ENT: Negative for nasal congestion or epistaxis. CARDIOVASCULAR: Negative for chest pain or palpitation. RESPIRATORY: Positive for chronic cough. Positive for some shortness of breath on and off. GI: Positive for some abdominal pain. Negative for diarrhea. MUSCULOSKELETAL: The patient is not ambulatory. SKIN: Negative for erythema or cellulitis. PSYCHIATRIC: Negative for any hallucinations. PHYSICAL EXAMINATION: GENERAL: She is not in any distress during my visit. VITAL SIGNS: Her blood pressure is 161/96, pulse is 71, temperature is 97.7, respiratory rate is 18, O2 saturation is 98% on room air. HEENT: Head is atraumatic, normocephalic. Eyes are PERRLA. Sclerae are nonicteric. Oral mucosa is dry. NECK: Supple. LUNGS: Clear breath sounds diminished at both bases. HEART: S1, S2, somewhat irregular. No S3. No S4. ABDOMEN: Soft, nontender. Bowel sounds are present. No organomegaly. EXTREMITIES: 1 to 2+ peripheral edema similar bilaterally. She has good pulses on both tibialis posterior and dorsalis pedis arteries similar bilaterally. NEUROLOGICAL: She follows my commands. She does not show any motor deficits. LABORATORY DATA: Labs showed white count of 6.8, hemoglobin 10.9, hematocrit 33.5, platelet count is 208,000. Chemistry; normal electrolytes, BUN of 13, creatinine 1.10, serum total protein 5.9, troponin 0.010, and the rest of chemistry within normal limits. Urinalysis showed positive nitrites, leukocyte esterase large, 11-20 WBCs, 4-6 squamous epithelial cells. The rest of urinalysis within normal limits. Influenza A and B negative. Chest x-ray shows cardiomegaly and bilateral infiltrates. EKG showed normal sinus rhythm with ventricular rate of 79 and incomplete left bundle-branch block. IMPRESSION: 1. Fever, most likely related to urinary tract infection. 2. Chronic atrial fibrillation. 3. Hypothyroidism. 4. Hyperlipidemia. 5. Chronic obstructive pulmonary disease. 6. Chronic bronchitis. 7. History of depression. 8. History of anxiety. PLAN: Admission to the medical floor. Condition is fair. Activity, bedrest. The patient is nonambulatory. The patient receives 1 dose of Rocephin in the emergency room. She has multiple drug allergies to many antibiotics and she had recently Clostridium difficile colitis. I am very hesitant to use more antibiotics on her at this point. My plan is to give her some IV fluids and watch her closely. Check on her urine culture and see whether we can avoid any treatment with antibiotics since she is high risk for recurrent C difficile. We will reconcile her home medications when the list is available and her primary care physician is Dr. Ricardo, and her , Norris is surrogate decision maker, and we will keep her on DVT prophylaxis. Job ID: [id number]
[2019-03-07 13:11] VITALS: BMI 35.1
[2019-03-07] MEDS ORDERED: Potassium Chloride 10 MEQ TAB PO PRN (14:50)
[2019-03-07] MEDS ORDERED: Loperamide HCl 2 MG CAP PO PRN (14:50)
[2019-03-07] MEDS ORDERED: Gabapentin 400 MG CAP PO SCH (15:45)
--- NOTE | 2019-03-07 17:14 | CT ---
CT chestwithout contrast INDICATIONS:Bilateral infiltrates COMPARISON:CT chest 02/22/2019. Portable chest 03/06/2019. FINDINGS: There is mild bibasilar atelectasis which explains portable chest findings. There is cardiomegaly and mild vascular congestion. No significant effusion. No evidence of inflammatory infiltrate. Mediastinum is unremarkable. No adenopathy. Upper abdomen is unremarkable. Soft tissues and chest wall appear unremarkable. Osseous structures are unremarkable. IMPRESSION: Streaky parenchymal opacity in both lung bases suggest bibasilar atelectasis. Early infiltrate not co mpletely excluded. Cardiomegaly and mild vascular congestion.
[2019-03-07] MEDS: HYDROcodone/Acetaminophen 10/325 mg Tablet PO PRN ×2 (17:29→22:42)
[2019-03-07] MEDS: Gabapentin 400 MG CAP PO SCH (17:31)
[2019-03-07] MEDS: hydrALAZINE 20 MG/ML VIAL SLOW IVP PRN (17:32)
[2019-03-07] MEDS: Famotidine 20 MG TAB PO SCH (21:06)
[2019-03-07] MEDS: Atorvastatin Calcium 10 MG TAB PO SCH (21:06)
[2019-03-07] MEDS: ALPRAZolam 0.25 MG TAB PO SCH (21:06)
[2019-03-07] MEDS: guaiFENesin ER 600 MG TAB PO SCH (21:06)
[2019-03-07] MEDS: Metoprolol Tartrate 25 MG TAB PO SCH (21:12)
[2019-03-08] MEDS: HYDROcodone/Acetaminophen 10/325 mg Tablet PO PRN ×5 (02:53→19:31)
[2019-03-08] MEDS: Sodium Chloride 0.9% 1,000 ML IV SCH ×2 (05:02→15:53)
[2019-03-08] MEDS: Levothyroxine Sodium 125 MCG TAB PO SCH (06:11)
[2019-03-08] MEDS ORDERED: Furosemide 20 MG TAB PO PRN (09:00)
[2019-03-08] MEDS: Valsartan 80 MG TAB PO SCH (09:02)
[2019-03-08] MEDS: Saccharomyces boulardii 250 MG CAP PO SCH (09:02)
[2019-03-08] MEDS: Ascorbic Acid 500 mg Chewable Tablet PO SCH (09:02)
[2019-03-08] MEDS: Meloxicam 15 MG TAB PO SCH (09:03)
[2019-03-08] MEDS: Gabapentin 400 MG CAP PO SCH ×2 (09:03→17:17)
[2019-03-08] MEDS: Cholecalciferol (Vitamin D3) 400 UNITS TAB PO SCH (09:03)
[2019-03-08] MEDS: Metoprolol Tartrate 25 MG TAB PO SCH ×2 (09:03→20:00)
[2019-03-08] MEDS: Oxybutynin ER 5 MG TAB PO SCH (09:03)
[2019-03-08] MEDS: Famotidine 20 MG TAB PO SCH ×2 (09:04→20:00)
[2019-03-08] MEDS: Multivitamins CHEW w/Iron Tablet PO SCH (09:04)
[2019-03-08] MEDS: FLUoxetine HCl 20 MG CAP PO SCH (09:04)
[2019-03-08] MEDS: guaiFENesin ER 600 MG TAB PO SCH ×2 (09:04→20:00)
--- NOTE | 2019-03-08 15:05 | PDOC.PN ---
- Subjective Encounter Start Date: 03/08/19 Encounter Start Time: 11:30 Feels better today. No specific complaints. Has continued to have some loose stools, but not like was with the active C diff. - Objective Vital Signs & Weight: Vital Signs (12 hours) Temp Pulse Resp BP Pulse Ox 03/08/19 11:57 97.5 F L 73 18 162/77 H 92 L 03/08/19 08:59 92 L 03/08/19 08:00 98.3 F 86 16 146/76 H 92 L 03/08/19 04:11 98.3 F 68 16 134/78 91 L Weight Weight 217 lb 10.24 oz I&O: 03/07/19 03/08/19 03/09/19 06:59 06:59 06:59 Intake Total 1960 Output Total 550 Balance 1410 Result Diagrams: 03/06/19 23:41 03/06/19 23:40 Phys Exam - Physical Examination Constitutional: NAD Respiratory: no wheezing, no rales, no rhonchi Cardiovascular: RRR, no significant murmur, no rub Gastrointestinal: soft, non-tender, no distention, positive bowel sounds Musculoskeletal: no edema, pulses present, edema present Neurological: non-focal, normal sensation, moves all 4 limbs Psychiatric: normal affect, A&O x 3 Dx/Plan (1) UTI (urinary tract infection) Status: Acute (2) Encephalopathy acute Code(s): G93.40 - ENCEPHALOPATHY, UNSPECIFIED Status: Acute Comment: may be due to medication interaction and dehydration, has been now baseline (3) Hypertension Code(s): I10 - ESSENTIAL (PRIMARY) HYPERTENSION Status: Chronic Qualifiers: (4) Hypothyroidism Code(s): E03.9 - HYPOTHYROIDISM, UNSPECIFIED Status: Chronic Comment: continue thyroid replacement (5) Pneumonia Code(s): J18.9 - PNEUMONIA, UNSPECIFIED ORGANISM Status: Acute - Plan * Presented with AMS and fever. Reportedly as high as 103. * Evidence for UTI and possible pneumonia on CT. * No antibiotics started because of her recent bout of C diff. * Urine culture is pending. Will repeat CXR in am. * Afebrile since admission. No leukocytosis.
[2019-03-08] MEDS: cefTRIAXone\\ROCEPHIN 1 GM in Sodium Chloride 0.9% 100 ML IVPB SCH (17:18)
[2019-03-08] MEDS: hydrALAZINE 20 MG/ML VIAL SLOW IVP PRN (17:23)
[2019-03-08] MEDS: ALPRAZolam 0.25 MG TAB PO SCH (20:00)
[2019-03-08] MEDS: Atorvastatin Calcium 10 MG TAB PO SCH (20:00)
[2019-03-09] MEDS: Sodium Chloride 0.9% 1,000 ML IV SCH ×3 (00:07→20:44)
[2019-03-09] MEDS ORDERED: diphenhydrAMINE 25 MG CAP PO PRN (00:39)
[2019-03-09] MEDS ORDERED: diphenhydrAMINE 25 MG CAP PO SCH (00:45)
[2019-03-09] MEDS: hydrALAZINE 20 MG/ML VIAL SLOW IVP PRN ×2 (04:05→13:11)
[2019-03-09] MEDS: Levothyroxine Sodium 125 MCG TAB PO SCH (05:37)
[2019-03-09] MEDS: Valsartan 80 MG TAB PO SCH (08:37)
[2019-03-09] MEDS: Oxybutynin ER 5 MG TAB PO SCH (08:38)
[2019-03-09] MEDS: Ascorbic Acid 500 mg Chewable Tablet PO SCH (08:38)
[2019-03-09] MEDS: FLUoxetine HCl 20 MG CAP PO SCH (08:38)
[2019-03-09] MEDS: Saccharomyces boulardii 250 MG CAP PO SCH (08:38)
[2019-03-09] MEDS: Gabapentin 400 MG CAP PO SCH ×2 (08:38→17:19)
[2019-03-09] MEDS: Famotidine 20 MG TAB PO SCH ×2 (08:38→20:42)
[2019-03-09] MEDS: Cholecalciferol (Vitamin D3) 400 UNITS TAB PO SCH (08:38)
[2019-03-09] MEDS: Meloxicam 15 MG TAB PO SCH (08:38)
[2019-03-09] MEDS: guaiFENesin ER 600 MG TAB PO SCH ×2 (08:38→20:43)
[2019-03-09] MEDS: Metoprolol Tartrate 25 MG TAB PO SCH ×2 (08:39→20:42)
[2019-03-09] MEDS: Multivitamins CHEW w/Iron Tablet PO SCH (08:39)
[2019-03-09] MEDS: HYDROcodone/Acetaminophen 10/325 mg Tablet PO PRN ×4 (08:47→22:42)
--- NOTE | 2019-03-09 09:04 | RAD ---
CHEST 1 VIEW: Date: 03/09/19 INDICATION: Pneumonia. COMPARISON: Prior exam dated 03/06/19. FINDINGS: There is hypoventilation. There is accentuation of the cardiac silhouette due to the poor lung volume s. There is some mild bibasilar atelectasis. No mando consolidation is evident to suggest the presenc e of pneumonia. There are vascular calcifications involving the thoracic aorta. Chronic osseous cintron es are similar to the comparison. IMPRESSION: No pneumonia. POS: CET
--- NOTE | 2019-03-09 14:51 | PDOC.PN ---
- Subjective Encounter Start Date: 03/09/19 Encounter Start Time: 12:30 Doing well. Would like a regular diet. Says that some of the medications on her allergy list were put there simply because she has some GI upset when taking them. Her says he has a list at home with her true allergies. He says there are only 4 meds on that list. - Objective Vital Signs & Weight: Vital Signs (12 hours) Temp Pulse Resp BP BP Pulse Ox 03/09/19 13:11 69 183/78 H 03/09/19 11:31 98.1 F 69 16 183/78 H 93 L 03/09/19 08:47 92 L 03/09/19 07:17 98.4 F 74 16 193/94 H 92 L 03/09/19 04:05 65 176/68 H 03/09/19 04:00 98.2 F 66 14 187/82 H 93 L Weight Weight 217 lb 10.24 oz I&O: 03/08/19 03/09/19 03/10/19 06:59 06:59 06:59 Intake Total 1960 2150 Output Total 550 1600 Balance 1410 550 Result Diagrams: 03/06/19 23:41 03/06/19 23:40 Phys Exam - Physical Examination Constitutional: NAD Respiratory: no wheezing, no rales, no rhonchi Cardiovascular: RRR, no significant murmur Gastrointestinal: soft, non-tender, no distention, positive bowel sounds Musculoskeletal: no edema Psychiatric: normal affect, A&O x 3 Skin: no rash, normal turgor, cap refill <2 seconds Dx/Plan (1) UTI (urinary tract infection) Status: Acute Comment: E coli (2) Encephalopathy acute Code(s): G93.40 - ENCEPHALOPATHY, UNSPECIFIED Status: Acute Comment: may be due to medication interaction and dehydration, has been now baseline (3) Hypertension Code(s): I10 - ESSENTIAL (PRIMARY) HYPERTENSION Status: Chronic Qualifiers: (4) Hypothyroidism Code(s): E03.9 - HYPOTHYROIDISM, UNSPECIFIED Status: Chronic Comment: continue thyroid replacement (5) Pneumonia Code(s): J18.9 - PNEUMONIA, UNSPECIFIED ORGANISM Status: Acute - Plan * UTI with E. coli. Multiple drug resistances. * Recent hx of C diff. * Multiple allergies, although not all are true allergies. * Asked Dr. Burks to consult. * Asked to get list of true allergies. * May be able to consider Bactrim. * No evidence of pneumonia. * Patient presented with fever, but has not had any since admission.
--- NOTE | 2019-03-09 15:32 | PQF ---
JOSÉ GAN DAVID R MD [id number] SURG B- 3326 [id number] CLINICAL DOCUMENTATION IMPROVEMENT CLARIFICATION FORM: ICD-10 Updated PLEASE DO AN ADDENDUM TO THE PROGRESS NOTE WITH ANY DOCUMENTATION UPDATES OR ADDITIONS AND CARRY THROUGH TO DC SUMMARY. THANK YOU. DATE: 03/09/2019 ATTN:DR. Ira HILLMAN Please exercise your independent, professional judgment in responding to the clarification form. Clinical indicators are provided on the bottom of this form for your review. Please check appropriate box(s): [ ] Simple Pneumonia (community acquired - nosocomial) [ ] Bronchopneumonia [x ] Other diagnosis atelectasis [ ] Unable to determine In addition, please specify: Present on Admission (POA): [ ] Yes [ ] No [ ] Unable to determine For continuity of documentation, please document condition throughout progress notes and discharge summary. Thank You. CLINICAL INDICATORS - SIGNS / SYMPTOMS / LABS 03/06 ED PHYSICIAN DX: FEVER , UTI FEVER OF 101.5 IN ED 03/06 CXR IMPRESSION: BIBASILAR INFILTRATES OR ATELECTASIS, AND SMALL BILATERAL EFFUSIONS 03/[address] IMPRESSION: STREAKY PARENCHYMAL OPACITY IN BOTH LUNG BASES SUGGEST BIBASILAR ATELECTASIS. EARLY INFILTRATE NOT COMPLETELY EXCLUDED. CARDIOMEGALY AND MILD VASCULAR CONGESTION. 03/08 PN ([facility]) DX/PLAN: 5) PNEUMONIA STATUS: ACUTE 03/09 PN ([facility]) DX/PLAN : 5) PNEUMONIA, STATUS ACUTE 03/09 CXR IMPRESSION: NO PNEUMONIA RISK: HX OF CHRONIC BRONCHITIS ([facility]) PT IS NON AMBULATORY ([facility]) RECENT HOSPITALIZATION (ED REPORT) ADVANCED AGE ( 79) H & P RECENT ANTIBIOTIC THERAPY FOR C-DIFF ( [facility]) TREATMENTS ROCEPHIN IV ( ED) INFECTIOUS DISEASE CONSULT ENCOURAGED USE OF INCENTIVE SPIROMETER THANK YOU! MAJOR (This form is maintained as a part of the permanent medical record) 2014 [employer]. All Rights Reserved [email or web address] [phone] MTDD
--- NOTE | 2019-03-09 15:57 | PQF ---
JOSÉ GAN DAVID R MD [id number] SURG B- 3326 [id number] CLINICAL DOCUMENTATION IMPROVEMENT CLARIFICATION FORM: ICD-10 Updated PLEASE DO AN ADDENDUM TO THE PROGRESS NOTE WITH ANY DOCUMENTATION UPDATES OR ADDITIONS AND CARRY THROUGH TO DC SUMMARY. THANK YOU. DATE: 01/07/2019 ATTN:DR. Ira HILLMAN Please exercise your independent, professional judgment in responding to the clarification form. Clinical indicators are provided on the bottom of this form for your review. Please check appropriate box(s): Acute Encephalopathy: Etiology: [ x ] Metabolic [ ] Toxic [ ] Other diagnosis [ ] Unable to determine In addition, please specify: Present on Admission (POA): [x ] Yes [ ] No [ ] Unable to determine For continuity of documentation, please document condition throughout progress notes and discharge summary. Thank You. CLINICAL INDICATORS - SIGNS / SYMPTOMS / LABS 03/07 ED REPORT : PT REPORTS VIA EMS WITH COMPLAINTS OF ALTERED MENTAL STATUS AND FEVER. 03/08 PN ([facility]) DX/PLAN : 2) ENCEPHALOPATHY ACUTE, MAY BE DUE TO MEDICATION INTERACTION AND DEHYDRATION, HAS NOW BEEN BASELINE 03/09 PN ([facility]) DX/PLAN 2) ENCEPHALOPATHY ACUTE, MAY BE DUE TO MEDICATION INTERACTION AND DEHYDRATION, HAS NOW BEEN BASELINE RISK: FEVER 101. 5 (ED REPORT) PNEUMONIA ([facility] H& P) UTI/DEHYDRATION ([facility] H & P) TREATMENTS NS IV 2L ( 03/07) THANK YOU! MAJOR (This form is maintained as a part of the permanent medical record) 2014 [employer]. All Rights Reserved [email or web address] [phone] MTDD
[2019-03-09] MEDS: cefTRIAXone\\ROCEPHIN 1 GM in Sodium Chloride 0.9% 100 ML IVPB SCH (17:20)
[2019-03-09] MEDS: Atorvastatin Calcium 10 MG TAB PO SCH (20:42)
[2019-03-09] MEDS: ALPRAZolam 0.25 MG TAB PO SCH (20:43)
[2019-03-10] MEDS: HYDROcodone/Acetaminophen 10/325 mg Tablet PO PRN ×4 (03:20→17:43)
[2019-03-10] MEDS: hydrALAZINE 20 MG/ML VIAL SLOW IVP PRN ×2 (04:47→13:12)
[2019-03-10] MEDS: Levothyroxine Sodium 125 MCG TAB PO SCH (05:55)
[2019-03-10] MEDS: Sodium Chloride 0.9% 1,000 ML IV SCH ×2 (07:10→18:11)
[2019-03-10] MEDS: Gabapentin 400 MG CAP PO SCH ×2 (08:39→17:07)
[2019-03-10] MEDS: Valsartan 80 MG TAB PO SCH (08:39)
[2019-03-10] MEDS: Cholecalciferol (Vitamin D3) 400 UNITS TAB PO SCH (08:39)
[2019-03-10] MEDS: guaiFENesin ER 600 MG TAB PO SCH (08:40)
[2019-03-10] MEDS: Oxybutynin ER 5 MG TAB PO SCH (08:40)
[2019-03-10] MEDS: Ascorbic Acid 500 mg Chewable Tablet PO SCH (08:40)
[2019-03-10] MEDS: Meloxicam 15 MG TAB PO SCH (08:40)
[2019-03-10] MEDS: FLUoxetine HCl 20 MG CAP PO SCH (08:40)
[2019-03-10] MEDS: Metoprolol Tartrate 25 MG TAB PO SCH (08:40)
[2019-03-10] MEDS: Famotidine 20 MG TAB PO SCH (08:40)
[2019-03-10] MEDS: Saccharomyces boulardii 250 MG CAP PO SCH (08:40)
[2019-03-10] MEDS: Multivitamins CHEW w/Iron Tablet PO SCH (08:45)
--- NOTE | 2019-03-10 15:07 | PDOC.PN ---
- Subjective Encounter Start Date: 03/10/19 Encounter Start Time: 10:55 Doing very well. No complaints. - Objective Vital Signs & Weight: Vital Signs (12 hours) Temp Pulse Resp BP BP Pulse Ox 03/10/19 13:12 53 L 173/83 H 03/10/19 11:15 98.4 F 53 L 18 173/83 H 92 L 03/10/19 08:40 92 L 03/10/19 08:00 98 F 67 18 197/89 H 92 L 03/10/19 06:00 155/77 H 03/10/19 04:47 70 187/71 H 03/10/19 04:00 98.3 F 60 16 177/63 H 95 Weight Weight 217 lb 10.24 oz I&O: 03/09/19 03/10/19 03/11/19 06:59 06:59 06:59 Intake Total 2150 1950 Output Total 1600 2000 Balance 550 -50 Result Diagrams: 03/06/19 23:41 03/06/19 23:40 Phys Exam - Physical Examination Constitutional: NAD Respiratory: no wheezing, no rales, no rhonchi, clear to auscultation bilateral Cardiovascular: RRR, no significant murmur Gastrointestinal: soft, non-tender, no distention, positive bowel sounds Musculoskeletal: no edema Psychiatric: normal affect, A&O x 3 Skin: no rash, normal turgor, cap refill <2 seconds Dx/Plan (1) UTI (urinary tract infection) Status: Acute Comment: E coli (2) Encephalopathy acute Code(s): G93.40 - ENCEPHALOPATHY, UNSPECIFIED Status: Acute Comment: may be due to medication interaction and dehydration, has been now baseline (3) Hypertension Code(s): I10 - ESSENTIAL (PRIMARY) HYPERTENSION Status: Chronic Qualifiers: (4) Hypothyroidism Code(s): E03.9 - HYPOTHYROIDISM, UNSPECIFIED Status: Chronic Comment: continue thyroid replacement (5) Pneumonia Code(s): J18.9 - PNEUMONIA, UNSPECIFIED ORGANISM Status: Ruled-out (6) Tracheomalacia Code(s): J39.8 - OTHER SPECIFIED DISEASES OF UPPER RESPIRATORY TRACT Status: Acute (7) Urinary incontinence Code(s): R32 - UNSPECIFIED URINARY INCONTINENCE Status: Acute (8) COPD (chronic obstructive pulmonary disease) Status: Chronic Qualifiers: - Plan * Chronically immobile patient with urinary incont. * Hx of tracheomalacia, copd and recurrent pneumonias. * Currently presented with fever and mild encephalopathy with resolved quickly. * She has UTI with MDR E. coli. * Recent C diff infection. * Multiple abx allergies. Patient's daughter indicates that the patient had been on Bactrim in the past, but developed a rash at some point. The Bactrim was one possible culprit. They are not certain that she has an allergy to it. * Discussed with Dr. Burks. He will try to see her later today.
[2019-03-10] MEDS: cefTRIAXone\\ROCEPHIN 1 GM in Sodium Chloride 0.9% 100 ML IVPB SCH (17:07)
[2019-03-10 20:03] VITALS: BP 151/73; TEMP 98.2
--- NOTE | 2019-03-10 20:17 | CON ---
DATE OF CONSULTATION: 03/10/2019 REASON FOR CONSULTATION: Fever. HISTORY OF PRESENT ILLNESS: A 79-year-old patient known to me from multiple prior visits, whom I had seen most recently in September last year. She has a history of tracheomalacia with recurrent episodes of respiratory tract infection. She also had one episode of invasive UTI and recently was treated for C difficile, had been discharged and just finished her vancomycin course the Tuesday before she became ill again with fever about 2 or 3 days after having completed vancomycin, which she took for about 14 days. She did not have any headaches. No respiratory symptoms. She did have some loose stool intermittently, but no abdominal pain. She had some dysuria, but not persistent. No joint symptoms. No skin disorder. 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 PAST SURGICAL HISTORY: Appendectomy, hysterectomy, and cholecystectomy. ALLERGIES: BACTRIM. FAMILY HISTORY: Noncontributory. CURRENT MEDICATIONS: 1. [place]. 2. DuoNeb. 3. Xanax. 4. Vitamin C. 5. Lipitor. 6. Rocephin. 7. Vitamin D. 8. Benadryl. 9. Prozac. 10. Pepcid. 11. Lasix. 12. Neurontin. 13. Mucinex. 14. Synthroid. 15. Imodium. 16. Multivitamins. 17. Oxybutynin. 18. Protonix. 19. Valsartan. PHYSICAL EXAMINATION: VITAL SIGNS: T-max 98.3, before admission she reportedly had 103, but that was measured at home; BP 140/50; pulse 60; and respirations 16. SKIN: With no areas of skin breakdown. The patient has peripheral IV access and does not have a Dunn catheter. No lymphadenopathy. HEENT: Ocular movements conjugate. Sclerae are white. Oral cavity normal. NECK: Supple. LUNGS: Scattered inspiratory crackles particularly in the left side. No wheezing. HEART: S1 and S2. Regular rate. No S3 or S4. ABDOMEN: Soft with mild tenderness, which was not reproducible. No bladder distention. EXTREMITIES: No joint inflammatory activity. Moves extremities with the observed weakness in the lower extremities, which is chronic and probably related to deconditioning and severe osteoarthritis. The upper extremities, she is able to move well. Her cognitive function appears to be intact. LABORATORY DATA: Urinalysis with 11 to 20 wbc's. White cell count 6.8, hemoglobin 10.9, platelets 208 with 60% neutrophils, 22% lymphocytes. Sodium 137, creatinine 1.1. Liver profile normal. Protein 5.9, albumin 3.5, and cultures with E coli in urine was an ESBL phenotype organism. ASSESSMENT: 1. History of broncho tracheomalacia, which seems to have improved. According to the latest images, the CT scan of the chest did not show any obvious infiltrates , although early infiltrates in the left side particularly were considered possible. 2. Abnormal urinalysis with mild pyuria and positive urine culture. 3. Fever. 4. Recent completed treatment for Clostridium difficile. DISCUSSION: The patient had this episode of fever, which has resolved. I do not believe that the urinary findings are responsible for the patient's clinical presentation since the patient improved despite of the fact that the Rocephin is not effective against the organism. A respiratory tract infection is a possibility. Early on, she may have had a viral respiratory tract infection or early pneumonitis that was treated by the Rocephin and the other possibility is recurrence of C difficile, which is not yet fully expressed. Recommend consideration of discharge planning off antimicrobial therapy. If there is worsening of the diarrhea, then ask the patient to call me, I will restart vancomycin and then prescribe a taper. If she has another recurrence, then she would be a candidate for fecal transplantation. Overall, the patient's status is much improved compared with past admissions, it is quite remarkable how much better she looks. Particularly, she is able to breathe deeply and much better respiratory excursions. The tracheobronchial tree appearance is much improved compared with previous ones. Somehow, the structure of the tracheobronchial tree must have improved over time. Job ID: [id number] MTDD
== END 2019-03-10 19:56 | disposition home or self-care (01) | DRG 689 ==
LOC: ERS 23:07 → SURG B 03-07 03:45
PROVIDERS: ADMIT Hospitalist; ATTEND Hospitalist
DX: N39.0 Urinary tract infection, site not specified (principal); G93.41 Metabolic encephalopathy; J98.11 Atelectasis; I12.9 Hypertensive chronic kidney disease with stage 1 through stage 4 chronic kidney disease, or unspecified chronic kidney disease; N18.9 Chronic kidney disease, unspecified; D63.1 Anemia in chronic kidney disease; E78.5 Hyperlipidemia, unspecified; F32.9 Major depressive disorder, single episode, unspecified; F41.9 Anxiety disorder, unspecified; J44.9 Chronic obstructive pulmonary disease, unspecified; E86.0 Dehydration; B96.20 Unspecified Escherichia coli [E. coli] as the cause of diseases classified elsewhere; J39.8 Other specified diseases of upper respiratory tract; R32 Unspecified urinary incontinence; K21.9 Gastro-esophageal reflux disease without esophagitis; Z16.24 Resistance to multiple antibiotics; Z90.710 Acquired absence of both cervix and uterus; Z99.3 Dependence on wheelchair; Z90.49 Acquired absence of other specified parts of digestive tract; Z88.1 Allergy status to other antibiotic agents; Z88.2 Allergy status to sulfonamides; Z88.6 Allergy status to analgesic agent; Z88.8 Allergy status to other drugs, medicaments and biological substances; Z79.899 Other long term (current) drug therapy; Z79.51 Long term (current) use of inhaled steroids
CPT/HCPCS: 36415; 51701; 71045; 71250; 80053; 81003; 81015; 83605; 84484; 85025; 87040; 87077; 87086; 87186; 87804; 93005; 96361; 96365; A4353; J0360; J0696; J3490; Q0163

== ENCOUNTER 2019-03-31 12:22 | Emergency (ER) | payer MEDICARE, OTHER ==
--- NOTE | 2019-03-31 13:01 | RAD ---
EXAM: XR Chest 1 View Portable PROVIDED CLINICAL HISTORY: History COMPARISON: 03/09/2019 FINDINGS: Cardiac silhouette remains enlarged. The left lung base is not well evaluated. Vascular calcification is noted. Right lung appears clear. There is no evidence for pneumothorax. IMPRESSION: Cardiomegaly and suboptimal evaluation of the left lung base with basilar pleural and/or parenchymal opacity not excluded. Correlation with a lateral view recommended.
[2019-03-31 13:02] LABS: #Basophils 0.1 thou/uL (0.0-0.2); #Eosinphils 0.5 thou/uL (0.0-0.7); #Lymphocytes 1.9 thou/uL (1.20-3.40); #Monocytes 0.7 thou/uL (0.11-0.59); #Neutrophils 3.8 thou/uL (1.40-6.50); %Basophils 0.8 % (0.0-1.0); %Eosinophils 7.4 % (0.0-10.0); %Lymphocytes 27.4 % (21.0-51.0); %Monocytes 9.7 % (0.0-10.0); %Neutrophils 54.7 % (42.0-75.0); Mean Corpuscular HGB CONC 33.1 g/dL (32.0-36.0); Mean Corpuscular Hemoglobin 29.7 pg (27.0-31.0); Mean Corpuscular Volume 89.7 fL (78.0-98.0); Mean Platelet Volume 7.7 fL (7.4-10.4); Platelet Count 168 thou/uL (130-400); RBC Distribution Width 13.3 % (11.5-14.5); Red Blood Cell (RBC) Count 4.04 mill/uL (4.20-5.40); White Blood Cell (WBC) Count 6.9 thou/uL (4.8-10.8)
[2019-03-31 13:25] LABS: ALT (SGPT) 15 U/L (8-55); AST (SGOT) 15 U/L (5-34); Albumin 3.6 g/dL (3.4-4.8); Alkaline Phosphatase 93 U/L (40-150); Anion Gap 15 mmol/L (10-20); BUN (Urea Nitrogen) 19 mg/dL (9.8-20.1); Bilirubin, Total 0.4 mg/dL (0.2-1.2); Calc. Creatinine Clearance 0 mL/min (70-130); Calcium 9.2 mg/dL (7.8-10.44); Carbon Dioxide 24 mmol/L (23-31); Chloride 101 mmol/L (98-107); Estimated GFR-MDRD 47; Globulin 2.9 g/dL (2.4-3.5); Glucose 98 mg/dL (83-110); Potassium 4.3 mmol/L (3.5-5.1); Protein, Total 6.5 g/dL (6.0-8.3); Sodium 136 mmol/L (136-145)
[2019-03-31 15:37] LABS: Bilirubin Negative (Negative); Blood, Urine Negative (Negative); Clarity CLEAR (Clear); Glucose, Urine (Dipstick) Negative (Negative); Leukocyte Negative (Negative); Nitrite Negative (Negative); Protein, Urine (Dipstick) Negative (Neg-Trace); Specific Gravity, Urine 1.008 (1.002-1.036); Urobilinogen 0.2 mg/dL (0.2-1.0)
== END 2019-03-31 16:21 | disposition home or self-care (01) ==
LOC: ERS 12:22
DX: J18.9 Pneumonia, unspecified organism (principal); D64.9 Anemia, unspecified; I48.91 Unspecified atrial fibrillation; K21.9 Gastro-esophageal reflux disease without esophagitis; E03.9 Hypothyroidism, unspecified; E78.5 Hyperlipidemia, unspecified; I10 Essential (primary) hypertension; J44.9 Chronic obstructive pulmonary disease, unspecified; F41.9 Anxiety disorder, unspecified; F32.9 Major depressive disorder, single episode, unspecified; Z79.899 Other long term (current) drug therapy; Z79.51 Long term (current) use of inhaled steroids
CPT/HCPCS: 51701; 71045; 80053; 81003; 83880; 84484; 85025; 93005; A4353

== ENCOUNTER 2019-04-06 09:22 | Inpatient (IN) | payer MEDICARE, OTHER ==
[2019-04-06 10:05] LABS: Actual Bicarbonate (HCO3a) 24.8 mEq/L (22-28); Analyzer IN Cardio ER; Base Excess (BEa) 0.9 mEq/L (-2.0 to +3.0); CO2 Tension 36.9 mmHg (35.0-45.0); Calcium, Ionized 1.12 mmol/L (1.12-1.30); Carboxyhemoglobin (COHb) 0.5 gm% (0.0-3.0); Hemoglobin (Hb) 12.5 g/dL (12.0-16.0); O2 Tension (PaO2) 62.4 mmHg (> 70.0); Potassium - ABG Lab 3.74 mmol/L (3.70-5.30); pH, Arterial 7.45 (7.35-7.45)
[2019-04-06 10:06] LABS: Puncture Site RB
[2019-04-06 10:07] LABS: Hemoglobin 12.4 g/dL (12.0-16.0); Mean Corpuscular Hemoglobin 29.4 pg (27.0-31.0); Mean Corpuscular Volume 88.9 fL (78.0-98.0); Mean Platelet Volume 7.9 fL (7.4-10.4); Platelet Count 169 thou/uL (130-400); RBC Distribution Width 13.5 % (11.5-14.5); Red Blood Cell (RBC) Count 4.24 mill/uL (4.20-5.40); White Blood Cell (WBC) Count 11.5 thou/uL (4.8-10.8)
--- NOTE | 2019-04-06 10:16 | RAD ---
XR Chest 1 View Portable History: Pneumonia. Fever. Comparison: Radiograph March 31, 2019 Findings: Enlarging layering left effusion. Enlarging layering right effusion. Heart size is enlarged . Mild pulmonary venous congestion. No pneumothorax. Left basilar airspace opacity. Severe degenerative disease of the left shoulder. Impression: 1. Enlarging bilateral pleural effusions, large on the left and moderate on the right. 2. Cardiomegaly and mild pulmonary venous congestion. 3. Left lower lobe airspace opacity concerning for infection.
[2019-04-06] MEDS ORDERED: Cefepime 1 GM VIAL ONE (10:22)
[2019-04-06 10:29] LABS: Band 8 % (5-11); Eosinophils 1 % (0-10); Lymphocytes 11 % (21-51); MDiff Complete? YES; Monocytes 8 % (0-10); Neutrophil 71 % (42-75); Platelet Morphology Comment Appears Adequate; Sodium 133 mmol/L (136-145)
[2019-04-06 10:30] LABS: ALT (SGPT) 10 U/L (8-55); AST (SGOT) 9 U/L (5-34); Albumin 3.3 g/dL (3.4-4.8); Alkaline Phosphatase 81 U/L (40-150); Anion Gap 15 mmol/L (10-20); BUN (Urea Nitrogen) 22 mg/dL (9.8-20.1); Bilirubin, Total 0.5 mg/dL (0.2-1.2); Calc. Creatinine Clearance 0 mL/min (70-130); Calcium 8.5 mg/dL (7.8-10.44); Carbon Dioxide 21 mmol/L (23-31); Chloride 101 mmol/L (98-107); Estimated GFR-MDRD 35; Globulin 2.8 g/dL (2.4-3.5); Glucose 96 mg/dL (83-110); Protein, Total 6.1 g/dL (6.0-8.3)
[2019-04-06] MEDS ORDERED: Senokot S 8.6-50 MG TAB PO PRN (16:10)
[2019-04-06] MEDS ORDERED: Guaifenesin DM 100-10/5 ML UDCUP PO PRN (16:10)
[2019-04-06] MEDS: Sodium Chloride 0.9% 1,000 ML IV SCH (17:20)
--- NOTE | 2019-04-06 17:23 | HP ---
PRIMARY CARE PHYSICIAN: Deepak Ricardo MD CHIEF COMPLAINT: Worsening shortness of breath and fever. HISTORY OF PRESENT ILLNESS: A 79-year-old female with known history of hypothyroidism, hypertension, chronic bronchitis, and others, who was recently about 1 week ago, diagnosed with pneumonia. The patient; however, declined hospitalization then and was discharged on oral Levaquin, which she completed 2 days ago. The patient reported some improvement while on the medication, but she was found to have fever associated worsening shortness of breath earlier today, necessitating presentation to the emergency room. On presentation to the emergency room, the patient was noted to be hypoxic on room with SpO2 of 85, hence was started on oxygen supplementation. Further evaluation with chest x-ray showed increasing bilateral pleural effusion as well as infiltrates consistent with pneumonic process. She was also found to be febrile and was started on broad-spectrum IV antibiotics and admitted for further evaluation and treatment. The patient at baseline is wheelchair-bound due to chronic lower extremity weakness related to lumbar spondylosis, which persisted despite surgeries of the back. There was no history of chest pain, nausea, vomiting, dysuria, leg swelling, change in bowel habit, or mental status change. PAST MEDICAL HISTORY: 1. Anemia. 2. Hypothyroidism. 3. Chronic debility/wheelchair bound status. 4. Lumbar spondylosis. 5. Chronic bronchitis. 6. Hyperlipidemia. 7. Atrial fibrillation. 8. Chronic kidney disease. 9. Hypertension. 10. Depression. 11. Anxiety. 12. Gastroesophageal reflux disease. PAST SURGICAL HISTORY: 1. Cholecystectomy. 2. Appendectomy. 3. Hysterectomy. 4. Back surgery. FAMILY HISTORY: Father reportedly had heart attack in his 60s while mother in her old age up in 90s. SOCIAL HISTORY: The patient currently lives with spouse. Denied alcohol, cigarettes, or recreational drug use. ALLERGIES AND ADVERSE REACTION: The patient reported adverse reactions and drug allergy to multiple medications including the following. 1. Amoxicillin. 2. Augmentin. 3. Bactrim. 4. Cipro. 5. Clindamycin. 6. Erythromycin. 7. Fentanyl. 8. Metolazone. 9. . 10. Oxycodone. 11. Sulfa. 12. Tramadol. 13. Trimethoprim. 14. Zolpidem. CURRENT HOME MEDICATIONS: 1. Hydrocodone-acetaminophen 1 tablet q.4 p.r.n. 2. Xanax 0.25 mg tablet p.o. at bedtime. 3. Vitamin C 500 mg p.o. daily. 4. Lipitor 10 mg p.o. daily at bedtime. 5. Vitamin D 200 units p.o. daily. 6. Benadryl daily at bedtime p.r.n. 7. Nexium 40 mg p.o. daily in the morning. 8. Fluoxetine 20 mg p.o. daily. 9. Furosemide 20 mg p.o. daily p.r.n. for edema. 10. Gabapentin 1600 mg p.o. b.i.d. with meals. 11. Levothyroxine 125 mcg p.o. daily. 12. Loperamide 2 mg p.o. daily p.r.n. for diarrhea. 13. Meloxicam 50 mg p.o. daily. 14. Metoprolol 25 mg p.o. b.i.d. 15. Multivitamin with iron and folic acid 1 tablet daily. 16. Oxybutynin chloride 10 mg p.o. daily. 17. Potassium chloride 10 mEq daily p.r.n. to be taken with Lasix. 18. Diovan 320 mg p.o. daily. 19. Zantac 150 mg p.o. daily at bedtime. 20. Mucinex 600 mg p.o. daily. 21. Amlodipine 10 mg p.o. daily. 22. Symbicort 2 puffs b.i.d. 23. Budesonide 1 inhalation b.i.d. 24. Prednisone 40 mg once daily. REVIEW OF SYSTEMS: Twelve-point review of systems performed was negative other than pertinent positives and negatives included in the history of present illness. PHYSICAL EXAMINATION: CURRENT VITAL SIGNS: Showed temperature 98.5, pulse 84, respiratory rate 28, SpO2 of 95% on 3 L nasal cannula, blood pressure 118/72. Initial vitals on presentation to the ER showed BP of 136/56, pulse of 115, respiratory rate of 22, temperature of 100.3, SpO2 of 88% on room air. GENERAL: Acutely ill-looking elderly female, in mild respiratory distress. Afebrile, anicteric, acyanotic. HEENT: Normocephalic, atraumatic. Pupils are reacting to light. Oral mucosa is dry. NECK: Supple with preserved range of motion. No obvious masses or lymphadenopathy appreciated. CARDIOVASCULAR: Regular rhythm and rate with normal. heart sounds 1 and 2. RESPIRATORY: Fair air entry bilaterally with some crackles. No obvious rhonchi were appreciated. Work of breathing has increased. GI: Abdomen is full, soft, nontender, nondistended with normal bowel sounds. EXTREMITIES: Grossly normal looking atraumatic with no obvious edema or erythema. NEUROLOGIC: The patient is awake and conversational. Cranial nerves 2 through 12 are grossly intact. The patient moves all extremities, though power in the lower extremities are decreased to 3/5. SKIN: No obvious erythema or rash appreciated. DIAGNOSTIC DATA: CBC showed WBC count of 11.5, hemoglobin of 12.4, MCV of 88.9, platelet of 169. Arterial blood gas performed in the ED showed pH of 7.45, pCO2 of 36.9, pO2 of 62, but this was on 3 L nasal cannula. CMP showed sodium 133, potassium 4.0, chloride 101, CO2 of 21, anion gap 15, BUN 22, creatinine 1.46, glucose 96, calcium 8.5, total bilirubin 0.5. AST 9, ALT 10, alkaline phosphatase 81, total protein 6.1, albumin 3.3, globulin 2.8. Initial lactic acid was 1.0. Troponin was less than 0.01. BNP is 357.5. IMAGING STUDIES: EKG showed normal sinus rhythm with rate of 98. No obvious acute ischemic changes were noted; however, Q-wave was noted, age undetermined. Chest x-ray compared to radiograph of March 31, 2019, showed enlarging layering left effusion as well as enlarging layering right effusion and left basilar airspace opacification. ASSESSMENT: 1. Acute respiratory failure with hypoxia: This is due to pneumonia and bilateral pleural effusion. Complicated pneumonia seems most likely with parapneumonic effusion. 2. Sepsis: Given fever, leukocytosis as well as tachypnea. 3. Parapneumonic effusion. 4. Intermittent fevers: This is due to a complicated pneumonia. The patient has failed outpatient oral Levaquin therapy. 5. Paroxysmal atrial fibrillation. 6. Acute kidney injury: Baseline creatinine is about 0.8 to 1.1. Currently, creatinine is 1.42. The patient is clinically dry. This is most likely hemodynamic-mediated given sepsis and volume depletion. 7. Chronic debilitation. The patient is wheelchair-bound at baseline. 8. Chronic back pain. 9. Hypothyroidism. PLAN: 1. We will commence broad-spectrum antibiotic therapy with vancomycin, Levaquin, and cefepime. 2. We will consult Pulmonology for possible thoracentesis to assess the pleural effusion. We will also start the patient on gentle IV fluid therapy given that she seems clinically dry. Will be cautious to avoid fluid overload given bilateral pleural effusion. 3. Continue oxygen supplementation as well as bronchodilators. 4. Await blood cultures. We will also get sputum culture. 5. DVT prophylaxis has been addressed. 6. Code status, full code. It is anticipated the patient will be hospitalized for more than 3 days. Further recommendation and treatment to follow depending on hospital course. Job ID: [id number]
[2019-04-06 18:02] VITALS: BMI 34.4
[2019-04-06] MEDS: methylPREDNISolone Sod Succ 40 MG VIAL IVP SCH (18:06)
[2019-04-06] MEDS: Acetaminophen 325 MG TAB PO PRN (19:44)
[2019-04-06] MEDS ORDERED: Famotidine 20 MG TAB PO SCH (21:00)
[2019-04-06] MEDS ORDERED: ALPRAZolam 0.25 MG TAB PO SCH (21:30)
[2019-04-06] MEDS ORDERED: Gabapentin 300 MG CAP PO SCH (21:30)
[2019-04-06] MEDS ORDERED: diphenhydrAMINE 25 MG CAP PO SCH (21:30)
[2019-04-06] MEDS: Vancomycin HCl 1.5 GM in Sodium Chloride 0.9% 250 ML 300 ML IVPB SCH (21:34)
[2019-04-07] MEDS: Sodium Chloride 0.9% 1,000 ML IV SCH ×2 (02:05→05:46)
[2019-04-07 05:41] LABS: INR-International Normal Ratio 1.3; PTT 42.4 SEC (22.9-36.1); Prothrombin Time 16.2 SEC (12.0-14.7)
[2019-04-07] MEDS: methylPREDNISolone Sod Succ 40 MG VIAL IVP SCH ×4 (05:46→17:00)
[2019-04-07 05:57] LABS: Band 6 % (5-11); Elliptocytes SLIGHT = 2-5 cells (100X) (0-1/hpf); Hemoglobin 11.6 g/dL (12.0-16.0); Lymphocytes 5 % (21-51); MDiff Complete? YES; Mean Corpuscular HGB CONC 32.1 g/dL (32.0-36.0); Mean Corpuscular Volume 90.4 fL (78.0-98.0); Monocytes 3 % (0-10); Neutrophil 86 % (42-75); Platelet Count 183 thou/uL (130-400); Platelet Morphology Comment Appears Adequate; RBC Distribution Width 13.4 % (11.5-14.5); Red Blood Cell (RBC) Count 3.98 mill/uL (4.20-5.40); White Blood Cell (WBC) Count 10.4 thou/uL (4.8-10.8)
[2019-04-07 05:58] LABS: ALT (SGPT) 11 U/L (8-55); AST (SGOT) 9 U/L (5-34); Albumin 3.1 g/dL (3.4-4.8); Alkaline Phosphatase 85 U/L (40-150); Anion Gap 17 mmol/L (10-20); BUN (Urea Nitrogen) 21 mg/dL (9.8-20.1); Bilirubin, Total 0.4 mg/dL (0.2-1.2); Calc. Creatinine Clearance 55 mL/min (70-130); Calcium 8.7 mg/dL (7.8-10.44); Carbon Dioxide 17 mmol/L (23-31); Chloride 103 mmol/L (98-107); Estimated GFR-MDRD 43; Glucose 215 mg/dL (83-110); Potassium 3.5 mmol/L (3.5-5.1); Protein, Total 6.1 g/dL (6.0-8.3); Sodium 133 mmol/L (136-145)
[2019-04-07] MEDS: Enoxaparin Sodium 30 MG/0.3 ML SYRINGE SC SCH (07:40)
[2019-04-07] MEDS: Gabapentin 300 MG CAP PO SCH ×2 (07:41→20:59)
[2019-04-07] MEDS ORDERED: Cefepime 2 GM in Sodium Chloride 0.9% 100 ML IVPB SCH (10:00)
[2019-04-07] MEDS: Acetaminophen 325 MG TAB PO PRN ×2 (10:01→21:00)
--- NOTE | 2019-04-07 11:28 | PRG ---
DATE OF SERVICE: SUBJECTIVE: This morning, she is still lethargic and drowsy. OBJECTIVE: VITAL SIGNS: Sats are 93% on 1, temp is 97, and blood pressure is 110/56. CHEST: Decreased breath sounds. No wheezing. CARDIAC: Normal S1 and S2. ABDOMEN: No mass. LABORATORY DATA: Creatinine 1.2. White count 10,000. IMPRESSION: Acute on chronic respiratory failure with bilateral atelectasis, I doubt pneumonia, azotemia, severe deconditioning. I discussed with the daughter at the bedside. She has been a DNR in the past, that is what we should do. We will switch her to oral antibiotics tomorrow. Minimize sedation. It is unclear why she is on Benadryl at nighttime. PT supportive care. Job ID: [id number]
--- NOTE | 2019-04-07 12:40 | PDOC.PN ---
- Subjective Encounter Start Date: 04/07/19 Encounter Start Time: 12:37 Subjective: Feeling better. still coughing with minimal sputum. -: Afebrikle overnight - Objective Resuscitation Status - Order Detail: 04/06/19 16:10 Resuscitation Status Routine Resuscitation Status: DNAR: NO Resuscitation Discussed with: Patient today 04/07/2019 at 12;20 pm Additional comments: Spouse is the surrogate decision maker Vital Signs & Weight: Vital Signs (12 hours) Temp Pulse Resp BP Pulse Ox 04/07/19 12:30 109 H 18 100 04/07/19 11:19 98.9 F 112 H 20 152/67 H 95 04/07/19 10:51 92 20 04/07/19 10:44 16 93 L 04/07/19 08:17 97.9 F 106 H 20 129/56 L 98 04/07/19 07:45 98 04/07/19 07:28 95 04/07/19 07:18 89 12 04/07/19 02:12 88 12 98 Weight Weight 207 lb I&O: 04/06/19 04/07/19 04/08/19 06:59 06:59 06:59 Intake Total 1092 Balance 1092 Result Diagrams: 04/07/19 05:23 04/07/19 05:23 Phys Exam - Physical Examination obese HEENT: moist MMs Neck: no JVD, supple fair air entry with transmitted sounds Cardiovascular: RRR tachycardic Gastrointestinal: soft, non-tender, no distention, positive bowel sounds Musculoskeletal: no edema, pulses present Neurological: non-focal, moves all 4 limbs Psychiatric: normal affect, A&O x 3 Dx/Plan (1) Bilateral pleural effusion Code(s): J90 - PLEURAL EFFUSION, NOT ELSEWHERE CLASSIFIED Status: Acute (2) Acute respiratory failure with hypoxia Code(s): J96.01 - ACUTE RESPIRATORY FAILURE WITH HYPOXIA Status: Acute (3) Sepsis Code(s): A41.9 - SEPSIS, UNSPECIFIED ORGANISM Status: Acute (4) Acute kidney injury Code(s): N17.9 - ACUTE KIDNEY FAILURE, UNSPECIFIED Status: Acute Comment: due to pre-renal, volume deplation, improved (5) GERD (gastroesophageal reflux disease) Code(s): K21.9 - GASTRO-ESOPHAGEAL REFLUX DISEASE WITHOUT ESOPHAGITIS Status: Chronic Qualifiers: Comment: (6) Hypertension Code(s): I10 - ESSENTIAL (PRIMARY) HYPERTENSION Status: Chronic Qualifiers: (7) Hypothyroidism Code(s): E03.9 - HYPOTHYROIDISM, UNSPECIFIED Status: Chronic Comment: continue thyroid replacement (8) Physical deconditioning Code(s): R53.81 - OTHER MALAISE Status: Chronic (9) Pneumonia Code(s): J18.9 - PNEUMONIA, UNSPECIFIED ORGANISM Status: Ruled-out - Plan DC IVF. -: Continue antibiotics and steroid. -: Get repeat Echo. -: Appreciated Pulm inpuut. -: Restart metoprolol. * .
[2019-04-07] MEDS ORDERED: Metoprolol Tartrate 25 MG TAB PO SCH (13:00)
[2019-04-07] MEDS: Metoprolol Tartrate 25 MG TAB PO SCH (20:59)
[2019-04-07] MEDS: Vancomycin HCl 1.5 GM in Sodium Chloride 0.9% 250 ML 300 ML IVPB SCH (21:00)
[2019-04-07] MEDS ORDERED: ALPRAZolam 0.25 MG TAB PO SCH (21:00)
[2019-04-07] MEDS ORDERED: diphenhydrAMINE 25 MG CAP PO SCH (21:00)
[2019-04-07] MEDS: Famotidine 20 MG TAB PO SCH (21:00)
[2019-04-08] MEDS: methylPREDNISolone Sod Succ 40 MG VIAL IVP SCH ×2 (00:39→06:13)
[2019-04-08] MEDS: Levothyroxine Sodium 125 MCG TAB PO SCH (06:13)
[2019-04-08 06:45] LABS: Anion Gap 13 mmol/L (10-20); BUN (Urea Nitrogen) 18 mg/dL (9.8-20.1); Calc. Creatinine Clearance 63 mL/min (70-130); Calcium 8.4 mg/dL (7.8-10.44); Carbon Dioxide 21 mmol/L (23-31); Chloride 102 mmol/L (98-107); Estimated GFR-MDRD 49; Glucose 180 mg/dL (83-110); Potassium 3.6 mmol/L (3.5-5.1); Sodium 132 mmol/L (136-145)
[2019-04-08] MEDS: Gabapentin 300 MG CAP PO SCH ×2 (08:00→20:38)
[2019-04-08] MEDS: FLUoxetine HCl 20 MG CAP PO SCH (08:00)
[2019-04-08] MEDS: Enoxaparin Sodium 30 MG/0.3 ML SYRINGE SC SCH (08:01)
[2019-04-08] MEDS: Metoprolol Tartrate 25 MG TAB PO SCH ×2 (08:01→20:38)
[2019-04-08] MEDS: Acetaminophen 325 MG TAB PO PRN ×3 (08:05→21:33)
--- NOTE | 2019-04-08 08:45 | PDOC.PN ---
- Subjective Encounter Start Date: 04/08/19 Encounter Start Time: 08:43 Subjective: Feeling better. No fever. -: Cough ois subsiding. Denied SOB - Objective Resuscitation Status - Order Detail: 04/06/19 16:10 Resuscitation Status Routine Resuscitation Status: DNAR: NO Resuscitation Discussed with: Patient today 04/07/2019 at 12;20 pm Additional comments: Spouse is the surrogate decision maker Vital Signs & Weight: Vital Signs (12 hours) Temp Pulse Resp BP Pulse Ox 04/08/19 08:08 98 04/08/19 08:07 68 16 04/08/19 07:40 97.9 F 73 20 129/74 92 L 04/08/19 00:01 78 16 98 Weight Weight 207 lb I&O: 04/07/19 04/08/19 04/09/19 06:59 06:59 06:59 Intake Total 1092 1488 Output Total 400 Balance 1092 1088 Result Diagrams: 04/07/19 05:23 04/08/19 05:56 Phys Exam - Physical Examination Constitutional: NAD HEENT: PERRLA, moist MMs Neck: no JVD, supple Respiratory: no rhonchi fair air entry with few right basal crackles posteriorly Cardiovascular: RRR Gastrointestinal: soft, non-tender, no distention, positive bowel sounds Musculoskeletal: no edema, pulses present Neurological: non-focal, moves all 4 limbs power is decreased both lower limbs. Psychiatric: normal affect, A&O x 3 Dx/Plan (1) Bilateral pleural effusion Code(s): J90 - PLEURAL EFFUSION, NOT ELSEWHERE CLASSIFIED Status: Acute (2) Acute respiratory failure with hypoxia Code(s): J96.01 - ACUTE RESPIRATORY FAILURE WITH HYPOXIA Status: Acute Comment: Resolved. (3) Sepsis Code(s): A41.9 - SEPSIS, UNSPECIFIED ORGANISM Status: Acute Comment: Resolved. (4) Acute kidney injury Code(s): N17.9 - ACUTE KIDNEY FAILURE, UNSPECIFIED Status: Acute Comment: due to pre-renal, volume deplation. Resolved. (5) GERD (gastroesophageal reflux disease) Code(s): K21.9 - GASTRO-ESOPHAGEAL REFLUX DISEASE WITHOUT ESOPHAGITIS Status: Chronic Qualifiers: Comment: (6) Hypertension Code(s): I10 - ESSENTIAL (PRIMARY) HYPERTENSION Status: Chronic Qualifiers: (7) Hypothyroidism Code(s): E03.9 - HYPOTHYROIDISM, UNSPECIFIED Status: Chronic Comment: continue thyroid replacement (8) Physical deconditioning Code(s): R53.81 - OTHER MALAISE Status: Chronic (9) Pneumonia Code(s): J18.9 - PNEUMONIA, UNSPECIFIED ORGANISM Status: Ruled-out (10) Hyponatremia Code(s): E87.1 - HYPO-OSMOLALITY AND HYPONATREMIA Status: Acute - Plan Get repeat CXR. -: DC IV vanc and cefepime. Observe patient on levaquin alone. -: Start incentive spirometry. -: discharge in a day or 2. -: Repeat CBC and BMP in the am. * .
--- NOTE | 2019-04-08 11:36 | PRG ---
DATE OF SERVICE: 04/08/2019 SUBJECTIVE: Cecilia Santizo, who is a DNR per the family's wishes. OBJECTIVE: VITAL SIGNS: Saturations are 98% on room air, respiratory rate 16, temperature 97, blood pressure 129/74. GENERAL: She is definitely much more awake after discontinued yesterday. CHEST: Revealed decreased breath sounds. No wheezing. CARDIAC: Normal S1 and S2. No gallops. ABDOMEN: No masses. IMPRESSION: 1. Chronic respiratory failure, hyperventilation. 2. Morbid obesity. PLAN: Switch over to oral antibiotics, probably disposition back home with home health care. Job ID: [id number]
--- NOTE | 2019-04-08 15:32 | RAD ---
EXAM: Chest PA and lateral: HISTORY: Pneumonia. Pleural effusion. COMPARISON: 01/20/2019 FINDINGS: Heart: Cardiomegaly. Aorta: Atherosclerosis. Pulmonary vessels: Normal Costophrenic angles: Bibasilar pleural effusions. Lungs: Obscuration left hemidiaphragm due to parenchymal changes in a forementioned effusion. Pneumothorax: No pneumothorax Osseous structures: Degenerative changes in the left shoulder. IMPRESSION: Cardiomegaly. Bibasilar pleural effusions with left lower lobe parenchymal changes. Correlate for con gestive heart failure. Superimposed infiltrates and/or aspiration cannot be excluded.
[2019-04-08] MEDS: Famotidine 20 MG TAB PO SCH (20:37)
[2019-04-08] MEDS ORDERED: ALPRAZolam 0.5 MG TAB PO SCH (23:00)
[2019-04-09 05:07] LABS: Bilirubin Negative (Negative); Blood, Urine Negative (Negative); Clarity CLEAR (Clear); Glucose, Urine (Dipstick) Negative (Negative); Leukocyte Negative (Negative); Nitrite Negative (Negative); Protein, Urine (Dipstick) Trace mg/dL (Neg-Trace); Urobilinogen 0.2 mg/dL (0.2-1.0)
[2019-04-09 05:10] LABS: Bacteria/HPF None Seen HPF (None Seen); Hyaline Casts/LPF 0-3 HYALINE CAST LPF (0-3 Hyaline); RBC/HPF None Seen HPF (0-3); Squamous Epithelial 0-3 HPF (0-3); WBC/HPF 0-3 HPF (0-3)
[2019-04-09] MEDS: Levothyroxine Sodium 125 MCG TAB PO SCH (05:21)
[2019-04-09 05:25] LABS: Urine Culture Reflex No No
[2019-04-09 05:40] LABS: Anion Gap 12 mmol/L (10-20); BUN (Urea Nitrogen) 19 mg/dL (9.8-20.1); Calc. Creatinine Clearance 66 mL/min (70-130); Calcium 8.2 mg/dL (7.8-10.44); Carbon Dioxide 21 mmol/L (23-31); Chloride 101 mmol/L (98-107); Estimated GFR-MDRD 52; Glucose 119 mg/dL (83-110); Potassium 3.2 mmol/L (3.5-5.1); Sodium 131 mmol/L (136-145)
[2019-04-09 05:48] LABS: Band 4 % (5-11); Hemoglobin 10.3 g/dL (12.0-16.0); Hypochromia SLIGHT = 6-15 cells (100X) (0-5/hpf); Lymphocytes 9 % (21-51); MDiff Complete? YES; Mean Corpuscular HGB CONC 32.7 g/dL (32.0-36.0); Mean Corpuscular Hemoglobin 29.3 pg (27.0-31.0); Mean Corpuscular Volume 89.5 fL (78.0-98.0); Mean Platelet Volume 7.3 fL (7.4-10.4); Monocytes 5 % (0-10); Neutrophil 82 % (42-75); Platelet Count 239 thou/uL (130-400); Platelet Morphology Comment Appears Adequate; RBC Distribution Width 13.3 % (11.5-14.5); Red Blood Cell (RBC) Count 3.52 mill/uL (4.20-5.40); White Blood Cell (WBC) Count 17.1 thou/uL (4.8-10.8)
--- NOTE | 2019-04-09 08:37 | CON ---
DATE OF CONSULTATION: HISTORY OF PRESENT ILLNESS: This is a 79-year-old morbidly obese female who has seen us in the past from time to time. She presented to hospital numerous times. She was here in October with a diagnosis of pneumonia, severely deconditioned, several episodes of respiratory failure, recurrent pneumonia, urinary tract infection who now presents with fever of 102 and chills. She had been wheelchair bound for a long time. She did have a chest x-ray taken in the ER, this is questionable bibasilar atelectatic changes. Unable to get any history from the patient. She is clearly encephalopathic. PAST MEDICAL HISTORY: Dysphagia, tachycardia, hypoxemia, anemia, atrial fibrillation, reflux, hypothyroidism, hyperlipidemia, asthma, bronchitis, hypertension, COPD. PAST SURGICAL HISTORY: Cholecystectomy, hysterectomy, back surgery. SOCIAL HISTORY: Tobacco, none. Alcohol, none. HOME MEDICATIONS: 1. Guaifenesin. 2. Benadryl. 3. Diovan 320. 4. Oxybutynin 10. 5. Vitamin. 6. Metoprolol 25 b.i.d. 7. Meloxicam. 8. Synthroid 125. 9. Gabapentin. 10. Lasix 20. 11. Prozac. 12. Omeprazole. 13. Xanax. 14. She is now started on Maxipime, Levaquin, and neb treatments. ALLERGIES: [id number]-COUNT INCLUDING PENICILLIN, ERYTHROMYCIN AND SULFA. PHYSICAL EXAMINATION: VITAL SIGNS: She is arousable with sats in the 93% on 2 L, pulse 80, blood pressure . CHEST: Bilateral rhonchi and crackles. CARDIAC: Normal S1, S2. No gallops. ABDOMEN: No masses. EXTREMITIES: No edema. LABORATORY DATA: Shows chest x-ray, cardiomegaly, bibasilar atelectatic changes, otherwise white count is 11,000, H and H 12 and 37, platelet count 169. PO2 is 62, pCO2 of 36, pH 7.45. Creatinine 1.46, azotemic. Baseline creatinine in February was normal. IMPRESSION: 1. Morbid obesity. 2. Recurrent encephalopathy. Respiratory failure, probably syndrome. 3. Azotemia. 4. Hypertension. PLAN: I have added steroids to her present regime. We need to address palliative care consult. Prognosis is guarded. We will follow. TIME SPENT: 70 minute, 50% direct patient care. Job ID: [id number]
--- NOTE | 2019-04-09 09:14 | PRG ---
DATE OF SERVICE: 04/09/2019 SUBJECTIVE: This morning, she is much better. X-ray taken yesterday, particularly on her lateral view, I do not see any infiltrates, this shows cardiomegaly, chronic changes, she is much improved, less encephalopathic. OBJECTIVE: VITAL SIGNS: Saturations temperature 97, blood pressure 130/59. CHEST: No wheezing or crackles. CARDIAC: Normal S1 and S2. No gallops. ABDOMEN: No masses. LABORATORY DATA: Sodium 131. White count 17,000. IMPRESSION: 1. Encephalopathy, improved. 2. Morbid obesity, hypoventilation syndrome. 3. Hyponatremia. PLAN: Pulmonary hsieh, she is stable enough to be discharged home. Minimize sedation. Antibiotic and steroids for 5 days. Job ID: [id number]
[2019-04-09] MEDS: FLUoxetine HCl 20 MG CAP PO SCH (09:51)
[2019-04-09] MEDS: Acetaminophen 325 MG TAB PO PRN (09:52)
[2019-04-09] MEDS: Enoxaparin Sodium 30 MG/0.3 ML SYRINGE SC SCH (09:52)
[2019-04-09] MEDS: Metoprolol Tartrate 25 MG TAB PO SCH ×2 (09:52→20:53)
[2019-04-09] MEDS: predniSONE 20 MG TAB PO SCH (09:52)
--- NOTE | 2019-04-09 10:46 | PDOC.PN ---
- Subjective Encounter Start Date: 04/09/19 Encounter Start Time: 10:44 Patient seen and examined, no new issues. - Objective Resuscitation Status - Order Detail: 04/06/19 16:10 Resuscitation Status Routine Resuscitation Status: DNAR: NO Resuscitation Discussed with: Patient today 04/07/2019 at 12;20 pm Additional comments: Spouse is the surrogate decision maker Vital Signs & Weight: Vital Signs (12 hours) Temp Pulse Resp BP Pulse Ox 04/09/19 10:23 79 14 95 04/09/19 08:24 97.6 F 60 20 130/59 L 94 L 04/09/19 06:37 69 14 96 04/09/19 04:00 97.5 F L 63 18 148/79 H 95 04/09/19 02:14 98 Weight Weight 207 lb I&O: 04/08/19 04/09/19 04/10/19 06:59 06:59 06:59 Intake Total 1488 1100 Output Total 400 925 Balance 1088 175 Result Diagrams: 04/09/19 04:28 04/09/19 04:28 Phys Exam - Physical Examination Constitutional: NAD HEENT: PERRLA, moist MMs Neck: no nodes, no JVD, supple Respiratory: no wheezing, no rales, no rhonchi Cardiovascular: RRR, no significant murmur, no rub Gastrointestinal: soft, non-tender, no distention Musculoskeletal: pulses present, edema present (trace) Dx/Plan (1) SOB (shortness of breath) Code(s): R06.02 - SHORTNESS OF BREATH Status: Acute (2) Fever Code(s): R50.9 - FEVER, UNSPECIFIED Status: Acute (3) GERD (gastroesophageal reflux disease) Code(s): K21.9 - GASTRO-ESOPHAGEAL REFLUX DISEASE WITHOUT ESOPHAGITIS Status: Chronic Qualifiers: Comment: (4) Hypertension Code(s): I10 - ESSENTIAL (PRIMARY) HYPERTENSION Status: Chronic Qualifiers: (5) Hypothyroidism Code(s): E03.9 - HYPOTHYROIDISM, UNSPECIFIED Status: Chronic Comment: continue thyroid replacement (6) Obesity (BMI 30-39.9) Code(s): E66.9 - OBESITY, UNSPECIFIED Status: Chronic - Plan * repeat CBC in AM, if WBC trending down plan for DC in Am * cont abx for now * no other changes in plan of care * case and plan d/w patient and family at length, they understood and agreed with this plan.
[2019-04-09] MEDS: Gabapentin 300 MG CAP PO SCH (11:41)
--- NOTE | 2019-04-09 13:52 | PQF ---
CLINICAL DOCUMENTATION IMPROVEMENT CLARIFICATION FORM: ICD-10 Updated PLEASE DO AN ADDENDUM TO THE PROGRESS NOTE WITH ANY DOCUMENTATION UPDATES OR ADDITIONS AND CARRY THROUGH TO DC SUMMARY. THANK YOU. DATE: 04/09/19 ATTN: DR. MIRANDA Please exercise your independent, professional judgment in responding to the clarification form. Clinical indicators are provided on the bottom of this form for your review Please check appropriate box(s): [ x ] Encephalopathy: Type: [ x ] Acute [ ] Subacute [ ] Chronic Etiology: [ ] Hypertensive [ x ] Metabolic [ ] Toxic [ ] Hepatic with Coma [ ] Hepatic w/o Coma [ ] Hypoxic [ ] Septic [ ] Drug induced: [ ] Unspecified [ ] in the setting of underlying dementia [ ] Other (please specify) [ ] Transient Alteration of Awareness [ ] Other diagnosis [ ] Unable to determine In addition, please specify: Present on Admission (POA): [ x ] Yes [ ] No [ ] Unable to determine For continuity of documentation, please document condition throughout progress notes and discharge summary. Thank You. CLINICAL INDICATORS - SIGNS / SYMPTOMS / LABS PROGRESS NOTE 04/09: "ENCEPHALOPATHY, IMPROVED" RISKS: SEPSIS NIKI HYPONATREMIA TREATMENT: IV CEFEPIME (ER) PO LEVAQUIN (04/09-04/14) SERIAL LABS (This form is maintained as a part of the permanent medical record) 2014 [employer]. All Rights Reserved [email or web address] Office: [phone] [facility]
[2019-04-09] MEDS: Famotidine 20 MG TAB PO SCH (20:53)
[2019-04-09] MEDS: Gabapentin 100 MG CAP PO SCH (20:54)
[2019-04-09] MEDS ORDERED: ALPRAZolam 0.5 MG TAB PO SCH (21:00)
[2019-04-10] MEDS: Levothyroxine Sodium 125 MCG TAB PO SCH (05:05)
[2019-04-10 05:59] LABS: Band 3 % (5-11); Hemoglobin 10.7 g/dL (12.0-16.0); Lymphocytes 22 % (21-51); MDiff Complete? YES; Mean Corpuscular HGB CONC 32.6 g/dL (32.0-36.0); Mean Corpuscular Hemoglobin 29.2 pg (27.0-31.0); Mean Corpuscular Volume 89.7 fL (78.0-98.0); Mean Platelet Volume 6.9 fL (7.4-10.4); Metamyelocyte 3 % (0-0); Monocytes 15 % (0-10); Neutrophil 57 % (42-75); Platelet Count 282 thou/uL (130-400); Platelet Morphology Comment Appears Adequate; RBC Distribution Width 13.5 % (11.5-14.5); Red Blood Cell (RBC) Count 3.67 mill/uL (4.20-5.40); White Blood Cell (WBC) Count 14.2 thou/uL (4.8-10.8)
[2019-04-10 06:02] LABS: Anion Gap 11 mmol/L (10-20); BUN (Urea Nitrogen) 20 mg/dL (9.8-20.1); Calc. Creatinine Clearance 73 mL/min (70-130); Calcium 8.4 mg/dL (7.8-10.44); Carbon Dioxide 23 mmol/L (23-31); Chloride 105 mmol/L (98-107); Estimated GFR-MDRD 58; Glucose 85 mg/dL (83-110); Potassium 3.4 mmol/L (3.5-5.1); Sodium 136 mmol/L (136-145)
[2019-04-10] MEDS: Metoprolol Tartrate 25 MG TAB PO SCH (08:09)
[2019-04-10] MEDS: Enoxaparin Sodium 30 MG/0.3 ML SYRINGE SC SCH (08:09)
[2019-04-10] MEDS: FLUoxetine HCl 20 MG CAP PO SCH (08:09)
[2019-04-10] MEDS: predniSONE 20 MG TAB PO SCH (08:09)
[2019-04-10] MEDS: Gabapentin 100 MG CAP PO SCH (08:09)
--- NOTE | 2019-04-10 08:18 | PDOC.EVN ---
Event Note - Event Note Event Note: DC SUMMARY #[id number]
--- NOTE | 2019-04-10 08:44 | DIS ---
DATE OF ADMISSION: 04/06/2019 DATE OF DISCHARGE: 04/10/2019 ADMITTING DIAGNOSES: 1. Persistent fever and failure to outpatient antibiotic therapy. 2. Sepsis. 3. Hypothyroidism. 4. Chronic atrial fibrillation. 5. Acute kidney injury. 6. Pneumonia. 7. Pleural effusion. 8. Acute respiratory distress. DISCHARGE DIAGNOSES: 1. Fevers, resolved. 2. Hypothyroidism, stable. 3. Sepsis, stable. 4. Chronic atrial fibrillation, stable. 5. Acute kidney injury, resolved. 6. Pneumonia, stable. 7. Pleural effusion, resolved. 8. Acute respiratory distress, resolved. HOSPITAL COURSE: This is a 79-year-old female presenting to the hospital with prior diagnosis of pneumonia, coming in with fevers, was in the ER, but had declined admission approximately 3 days prior to arrival in the ER on this occasion and was discharged with oral antibiotics, came back with 2 days of fever. The patient was started on IV antibiotics, had blood cultures done as well as respiratory cultures done, both of which were negative. The patient's white blood cell count upon discharge was 14, down from 17 after two doses of IV Levaquin. The patient was discharged with oral Levaquin to be taken for 5 days. Condition was stable. Prognosis was good. Symptoms are improving as well. The patient was advised to follow up with her PCP within 1 to 2 weeks. Case and plan discussed with the patient at length. She understood and agreed with this plan. DISPOSITION: Home. FOLLOWUP: Follow up with PCP within 1 week. MEDICATIONS: See MAR. ACTIVITY: As tolerated with assistance as needed. DIET: Low-fat, low-calorie, high-fiber diet. CONDITION: Stable. PROGNOSIS: Good. Once again, case and plan discussed the patient and family at length. They understood and agreed with this plan. Job ID: [id number]
--- NOTE | 2019-04-10 09:16 | PRG ---
DATE OF SERVICE: 04/10/2019 SUBJECTIVE: This morning, she is awake, alert, responsive, in no distress. OBJECTIVE: VITAL SIGNS: Blood pressure is 130\74_, saturations are 95% room air, respiratory rate 18, temperature 98, pulse 68. CHEST: No wheezing or crackles. CARDIAC: Normal S1, S2. No gallop. ABDOMEN: No masses. IMPRESSION: 1. Bibasilar atelectatic. 2. Hypoventilation syndrome with severe deconditioning, and chronic pain. She is stable enough to be discharged home. Discontinue Dunn. Supportive care. Job ID: [id number] MTDD
[2019-04-10 11:30] VITALS: BP 153/81; TEMP 98.1
== END 2019-04-10 11:30 | disposition home health service (06) | DRG 871 ==
LOC: ERS 09:22 → T4-B 12:12
PROVIDERS: ADMIT Internal Medicine Nephrology; ATTEND Internal Medicine Nephrology
DX: A41.9 Sepsis, unspecified organism (principal); G93.41 Metabolic encephalopathy; J96.21 Acute and chronic respiratory failure with hypoxia; J18.9 Pneumonia, unspecified organism; N17.9 Acute kidney failure, unspecified; J90 Pleural effusion, not elsewhere classified; E87.1 Hypo-osmolality and hyponatremia; E66.2 Morbid (severe) obesity with alveolar hypoventilation; Z66 Do not resuscitate; E03.9 Hypothyroidism, unspecified; D64.9 Anemia, unspecified; E78.5 Hyperlipidemia, unspecified; I12.9 Hypertensive chronic kidney disease with stage 1 through stage 4 chronic kidney disease, or unspecified chronic kidney disease; N18.9 Chronic kidney disease, unspecified; F41.9 Anxiety disorder, unspecified; F32.9 Major depressive disorder, single episode, unspecified; K21.9 Gastro-esophageal reflux disease without esophagitis; Z99.3 Dependence on wheelchair; Z90.49 Acquired absence of other specified parts of digestive tract; Z90.710 Acquired absence of both cervix and uterus; Z88.1 Allergy status to other antibiotic agents; Z88.8 Allergy status to other drugs, medicaments and biological substances; Z88.2 Allergy status to sulfonamides; Z88.6 Allergy status to analgesic agent; Z79.899 Other long term (current) drug therapy; Z79.51 Long term (current) use of inhaled steroids; Z79.52 Long term (current) use of systemic steroids; I48.0 Paroxysmal atrial fibrillation; Z68.34 Body mass index [BMI] 34.0-34.9, adult
CPT/HCPCS: 36415; 71045; 71046; 80048; 80053; 81001; 82805; 83605; 83880; 84484; 85025; 85610; 85730; 86140; 87040; 87070; 87205; 93005; 93306; 94640; 96365; J0692; J1650; J1956; J2920; J3370; J3490; J7050; J7512; J7620; Q0163

== ENCOUNTER 2019-06-12 14:58 | Outpatient (CLI) | payer MEDICARE, OTHER ==
--- NOTE | 2019-06-12 15:21 | RAD ---
XR Shoulder Lt 3 View STANDARD HISTORY: Left shoulder pain FINDINGS: No fracture or dislocation is identified. There are degenerative changes in the, clavicular and gleno humeral joints. IMPRESSION: Left shoulder osteoarthritis.
== END 2019-06-12 14:59 | disposition home or self-care (01) ==
LOC: SCSRAD 14:58
PROVIDERS: ATTEND Nurse Practitioner Family
DX: M25.512 Pain in left shoulder (principal); M19.012 Primary osteoarthritis, left shoulder

== ENCOUNTER 2019-07-04 22:20 | Inpatient (IN) | payer MEDICARE, OTHER ==
[2019-07-04 22:50] LABS: #Basophils 0.1 thou/uL (0.0-0.2); #Eosinphils 1.1 thou/uL (0.0-0.7); #Lymphocytes 3.1 thou/uL (1.20-3.40); #Monocytes 1.1 thou/uL (0.11-0.59); %Basophils 0.5 % (0.0-1.0); %Eosinophils 6.6 % (0.0-10.0); %Lymphocytes 19.1 % (21.0-51.0); %Monocytes 6.7 % (0.0-10.0); %Neutrophils 67.1 % (42.0-75.0); Hemoglobin 12.9 g/dL (12.0-16.0); Mean Corpuscular HGB CONC 33.7 g/dL (32.0-36.0); Mean Corpuscular Hemoglobin 30.6 pg (27.0-31.0); Mean Corpuscular Volume 90.6 fL (78.0-98.0); Mean Platelet Volume 7.5 fL (7.4-10.4); Platelet Count 227 thou/uL (130-400); Red Blood Cell (RBC) Count 4.23 mill/uL (4.20-5.40); White Blood Cell (WBC) Count 16.4 thou/uL (4.8-10.8)
--- NOTE | 2019-07-04 23:09 | RAD ---
Exam: Chest one view HISTORY:Fever Comparison: 04/06/2019, 04/08/2019 FINDINGS: Cardiac silhouette:Upper normal heart size Aorta: Atherosclerosis of the aortic knob Pulmonary vessels: Normal Costophrenic angles: Clear LUNGS: Diminished lung volumes, likely due to a poor inspiratory effort. Chronic changes, without con solidation or mass. Pneumothorax: None Osseous abnormalities: Severe degenerative change in the left glenohumeral joint space IMPRESSION: No acute cardiopulmonary process. Atherosclerosis.
[2019-07-04 23:12] LABS: ALT (SGPT) 16 U/L (8-55); AST (SGOT) 18 U/L (5-34); Albumin 4.1 g/dL (3.4-4.8); Alkaline Phosphatase 127 U/L (40-110); Anion Gap 17 mmol/L (10-20); BUN (Urea Nitrogen) 31 mg/dL (9.8-20.1); Bilirubin, Total 0.3 mg/dL (0.2-1.2); Calc. Creatinine Clearance 0 mL/min (70-130); Carbon Dioxide 17 mmol/L (23-31); Chloride 103 mmol/L (98-107); Estimated GFR-MDRD 24; Globulin 2.8 g/dL (2.4-3.5); Glucose 154 mg/dL (83-110); Potassium 4.3 mmol/L (3.5-5.1); Protein, Total 6.9 g/dL (6.0-8.3); Sodium 133 mmol/L (136-145)
[2019-07-04 23:16] LABS: Bacteria/HPF 4+ HPF (None Seen); Bilirubin Negative (Negative); Blood, Urine 1+ (Negative); Clarity Extra Turbid (Clear); Glucose, Urine (Dipstick) Normal (Negative); Leukocyte 500 Leu/uL (Negative); Nitrite 1+ (Negative); Protein, Urine (Dipstick) 30 mg/dL (Neg-Trace); RBC/HPF 21-50 HPF (0-3); Squamous Epithelial None Seen HPF (0-3); Urobilinogen Normal mg/dL (Less than 2); WBC/HPF Greater than 50 HPF (0-3)
[2019-07-04] MEDS ORDERED: cefTRIAXone\\ROCEPHIN 2 GM VIAL ONE (23:34)
[2019-07-05 02:38] LABS: Lactic Acid 2.9 mmol/L (0.5-2.2)
[2019-07-05 02:39] VITALS: BMI 34.7
[2019-07-05] MEDS ORDERED: Acetaminophen 500 MG TAB PO PRN (04:59)
[2019-07-05] MEDS ORDERED: Ondansetron PF 4 MG/2 ML Vial IVP PRN (04:59)
[2019-07-05] MEDS ORDERED: hydrALAZINE 20 MG/ML VIAL SLOW IVP PRN (04:59)
[2019-07-05] MEDS ORDERED: Ondansetron ODT 4 MG TAB PO PRN (04:59)
[2019-07-05] MEDS ORDERED: Sodium Chloride 0.9% 1,000 ML IV SCH (05:00)
[2019-07-05] MEDS: Levothyroxine Sodium 125 MCG TAB PO SCH (05:43)
[2019-07-05 07:04] LABS: BHCG - Serum Negative (NEGATIVE); Pregs Control Background? CLEAR/WHITE (CLR/WHITE); Pregs Control Bar Appear? YES (CONTROL BAR)
[2019-07-05 07:06] LABS: INR-International Normal Ratio 1.3; PTT 41.5 SEC (22.9-36.1); Prothrombin Time 15.7 SEC (12.0-14.7)
[2019-07-05 07:24] LABS: CKMB 0.9 ng/mL (0-6.6); Troponin I 0.012 ng/mL (< 0.028)
--- NOTE | 2019-07-05 07:41 | CT ---
PRELIMINARY REPORT/[facility]/EMERGENCY AFTER HOURS PROCEDURE Addendum created by Gen Levin MD on 07/05/2019 6:47 AM Central Time ([place] & [place]) THIS REPORT CONTAINS FINDINGS THAT MAY BE CRITICAL TO PATIENT CARE.: The findings were discussed via telephone conference with Dr. Cespedes at 07/05/2019 6:46 AM CDT. Initial Report created on 07/05/2019 6:32 AM Central Time ([place] & [place]) PROCEDURE INFORMATION: Exam: CT Head Without Contrast Exam date and time: 07/05/2019 6:08 AM Clinical history: 79 years old, female; Other: Previous on pacs. Code green. . . Level [address] Cespedes. . [phone]; PT was last seen normal 0430. PT is having left sided weakness and facial droop. ; Patient HX: Previous on pacs. Code green. . . Level [address] Cespedes. . [phone]; PT was last seen normal 0430. PT is having left sided weakness and facial droop. TECHNIQUE: Imaging protocol: Computed tomography of the head without contrast. Radiation optimization: All CT scans at this facility use at least one of these dose optimization techniques: automated exposure control; mA and/or kV adjustment per patient size (includes targeted exams where dose is matched to clinical indication); or iterative reconstruction. Other technique: STROKE PROTOCOL was implemented. COMPARISON: No relevant prior studies available. FINDINGS: Brain: No acute intracerebral abnormality or injury. Mild patchy periventricular leukomalacia in both cerebral hemispheres, consistent with chronic underlying small vessel ischemic disease. Schuyler Stroke Program Early CT Score (ASPECTS score) = 10. Ventricles: Normal. No ventriculomegaly. Bones/joints: Unremarkable. No acute fracture. Sinuses: Chronic-appearing sinusitis involving the frontal, ethmoid, maxillary and sphenoid sinuses, to a moderately severe degree. Mastoid air cells: Visualized mastoid air cells are well aerated. Soft tissues: Unremarkable. IMPRESSION: 1. No acute intracerebral abnormality or injury. 2. Mild patchy periventricular leukomalacia in both cerebral hemispheres, consistent with chronic underlying small vessel ischemic disease. 3. Aysha Stroke Program Early CT Score (ASPECTS score) = 10. 4. Chronic-appearing sinusitis involving the frontal, ethmoid, maxillary and sphenoid sinuses, to a moderately severe degree. Thank you for allowing us to participate in the care of your patient. Dictated and Authenticated by: Gen Levin MD 07/05/2019 6:32 AM Central Time ([place] & [place]) FINAL REPORT HEAD CT WITHOUT CONTRAST: DATE: 07/05/2019 COMPARISON: 02/21/2019. HISTORY: Rogerio Green, stroke protocol, left-sided weakness with facial droop. FINDINGS: I agree with the preliminary report. There is opacification of the bilateral frontal sinuses, ethmoid air cells, and of the left sphenoid and maxillary sinus. There is no acute osseous abnormality. No intracranial hemorrhage, midline shift, mass effect, or ventricular enlargement. Periventricular hypo density noted, evidence of small vessel disease. IMPRESSION: No intracranial hemorrhage. Code QA Transcribed Date/Time: 07/05/2019 7:48 AM
[2019-07-05] MEDS ORDERED: Vancomycin HCl 1 GM in Sodium Chloride 0.9% 250 ML 300 ML IVPB SCH (09:00)
[2019-07-05] MEDS: Cefepime 2 GM in Sodium Chloride 0.9% 100 ML IVPB SCH ×2 (09:18→20:20)
[2019-07-05] MEDS: Metoprolol Tartrate 25 MG TAB PO SCH ×3 (09:25→20:20)
[2019-07-05] MEDS: FLUoxetine HCl 20 MG CAP PO SCH ×2 (09:31→11:57)
[2019-07-05] MEDS: Famotidine 20 MG TAB PO SCH ×2 (09:31→11:58)
[2019-07-05] MEDS: Cholecalciferol (Vitamin D3) 400 UNITS TAB PO SCH ×2 (09:31→11:58)
[2019-07-05] MEDS: Oxybutynin 5 MG TAB PO SCH ×2 (09:31→11:56)
[2019-07-05] MEDS: Multivitamin W/ Minerals 1 TAB PO SCH ×2 (09:31→11:57)
[2019-07-05] MEDS: Budesonide 0.25 MG/2 ML NEB INH SCH ×2 (10:08→18:39)
--- NOTE | 2019-07-05 11:45 | HP ---
PRIMARY CARE PROVIDER: Deepak Ricardo MD COMPLAINT: Cough and fever. HISTORY OF PRESENT ILLNESS: This is a 79-year-old female, who presents to [facility] Emergency Department after developing fever with general weakness with associated cough. The patient with longstanding history of chronic bronchitis without home oxygen use. The patient was apparently noted with a temperature of 101.9 degrees Fahrenheit after EMS personnel were notified as the patient was exhibiting rigors and decreased activity level. No specific reports of travel exposure history or changed activity level. The patient currently resides at home with her , who is her primary care provider. The patient receives home health nursing care approximately 1 time per week according to the daughter. The patient with a long-standing history of chronic bronchitis, deconditioning, recently placed on ciprofloxacin for suspected urinary tract infection. The daughter reports the patient has approximately 48 hours of the antibiotic remaining. In the emergency room, the patient received IV vancomycin and Rocephin in addition to intravenous normal saline x1 liter and bronchodilator therapy with DuoNeb. The patient was initially meeting sepsis criteria with suspected urinary tract infection as the source. Chest imaging was unremarkable, and the patient received the IV antibiotics, pending culture results. PAST MEDICAL HISTORY: 1. Recurrent fever and multiple hospitalizations. 2. History of sepsis. 3. Hypothyroidism. 4. Chronic atrial fibrillation. 5. Acute kidney injury. 6. Bilateral pleural effusions. 7. Nonambulatory status. 8. Chronic anemia. 9. Lumbar spondylosis. 10. Hypertension. 11. Depression. 12. Anxiety. 13. Gastroesophageal reflux. PAST SURGICAL HISTORY: 1. Status post cholecystectomy. 2. Status post appendectomy. 3. Status post hysterectomy. 4. Status post lumbar spine surgery. CURRENT HOME MEDICATIONS: 1. Xanax 0.25 mg p.o. at bedtime. 2. Vitamin C 500 mg p.o. daily. 3. Lipitor 10 mg p.o. at bedtime. 4. Budesonide two inhalations b.i.d. 5. Vitamin D3 of 200 units p.o. daily. 6. Ciprofloxacin 500 mg p.o. b.i.d. 7. Nexium 40 mg p.o. q.a.m. 8. Fluoxetine 20 mg p.o. daily. 9. Lasix 20 mg p.o. daily p.r.n. 10. Gabapentin 600 mg p.o. t.i.d. 11. Weott 10/325 mg one tablet p.o. q.4 to 6 hours p.r.n. pain. 12. Metoprolol tartrate 25 mg p.o. b.i.d. 13. Multivitamin one tablet p.o. daily. 14. Oxybutynin 10 mg p.o. daily. 15. Klor-Con 10 mEq p.o. daily. 16. Valsartan 320 mg p.o. daily. 17. Zantac 75 mg p.o. at bedtime. ALLERGIES: AMOXICILLIN TRIHYDRATE, CIPROFLOXACIN, CLAVULANIC ACID, ERYTHROMYCIN , FENTANYL, METOLAZONE, SULFA, TRAMADOL, AND AMBIEN. FAMILY HISTORY: Father with history of coronary artery disease in his early 60s. SOCIAL HISTORY: Resides in [place], [place] with her . Receives primary care from her . No current alcohol, tobacco, or illicit drug use. REVIEW OF SYSTEMS: Unobtainable as the patient with altered mental status and unable to provide a coherent history. PHYSICAL EXAMINATION: VITAL SIGNS: Currently, blood pressure 133/60, pulse 93, respiratory rate 24, temperature 99.5 degrees Fahrenheit, and O2 saturation 93% on 4 L per minute by nasal cannula. GENERAL APPEARANCE: This is a 79-year-old female, lethargic, in no acute distress. HEENT: Pupils are equal, round, reactive to light and accommodation. Extraocular muscles are intact. No scleral icterus. No conjunctival injection. Nares patent. OP is clear. NECK: Supple. No cervical adenopathy. No thyromegaly. No carotid bruits. No JVD appreciated. Cervical spine with full active and passive range of motion. CHEST: Lungs with coarse breath sounds bilaterally with diminished air flow. CARDIOVASCULAR: S1 and S2 without noted murmur, rub, or gallop. ABDOMEN: Obese, soft, nontender, and nondistended. Bowel sounds are positive in all 4 quadrants. There is no hepatosplenomegaly. No abdominal bruits. No rebound or guarding appreciated. EXTREMITIES: Warm and dry with fair turgor. No clubbing, cyanosis, or asymmetric edema appreciated. Pulses palpable distally at the dorsalis pedis, posterior tibial, and popliteal arteries bilaterally. Capillary refill less than 2 seconds. NEUROLOGIC: Cranial nerves 2 through 12 are grossly intact. The patient not observed ambulatory during this exam. PERTINENT LABORATORY AND X-RAY FINDINGS: Sodium 133, potassium 4.3, chloride 103, CO2 of 17, anion gap 17, BUN 31, creatinine 1.97, estimated GFR 24. Lactic acid level ranged between . T bilirubin 0.3, AST 18, ALT of 60, alkaline phosphatase 127. BNP 272, previously noted 358 on 04/06/2019. CBC showed a white blood cell count of 16.4, hemoglobin 13, hematocrit 38, platelet count 227 with normal differential. Portable chest x-ray dated 07/04/2019 shows no acute cardiopulmonary process. Diminished lung volumes noted. EKG dated 07/04/2019, by my interpretation shows baseline artifact. Sinus mechanism. Left anterior fascicular block. Poor R-wave progression noted in the precordial leads. Left axis deviation noted. ASSESSMENT AND PLAN: 1. Sepsis suspected secondarily to #2/urinary tract infection. We will continue cefepime 2 g IV q.12 hours with additional vancomycin. Await final blood and urine culture results. The patient with recurrent sepsis and similar presentation. Consider palliative care consult. 2. Urinary tract infection. Suspected given initial urinalysis results. Continue cefepime 2 g IV q.12 hours. Await final urine culture results. 3. Acute kidney injury on chronic kidney disease, stage 4. Avoid nephrotoxic agents and limit contrast exposure. Low volume intravenous normal saline at 50 mL/h. 4. Nonambulatory status. Baseline function is nonambulatory. Continue supportive management. 5. Acute metabolic encephalopathy. Suspect secondarily to sepsis. Continue supportive management as outlined previously and monitor clinical response. 6. Prophylaxis. SCDs while in bed. Pepcid 20 mg p.o. b.i.d. CODE STATUS: Do not attempt resuscitation confirmed with the patient. Job ID: [id number] [facility]
[2019-07-05] MEDS: Gabapentin 400 MG CAP PO SCH (11:54)
--- NOTE | 2019-07-05 12:42 | PDOC.HOSPP ---
- Subjective Encounter Date: 07/05/19 Encounter Time: 11:00 Subjective: lethargic, barely awakens and immediatley falls asleep, daughter at bedside pt is DNAR, confirmed with daughter per daughter she usually gets obtunded for 2 days when she has uti/sepsis sees for bronchitis (never smoked) is bed bound and takes care of her - Objective Vital Signs & Weight: Vital Signs (12 hours) Temp Pulse Pulse Resp Resp BP BP 07/05/19 11:54 97.9 F 97 20 151/70 H 07/05/19 10:09 07/05/19 10:08 70 20 07/05/19 07:08 99.5 F 73 19 124/60 07/05/19 05:57 70 16 124/58 L 07/05/19 05:51 70 16 124/58 L 07/05/19 03:50 97.7 F 88 18 137/60 07/05/19 01:40 99.5 F 93 24 H 133/60 Pulse Ox Pulse Ox 07/05/19 11:54 99 07/05/19 10:09 97 07/05/19 10:08 07/05/19 07:08 99 07/05/19 05:57 94 L 07/05/19 05:51 94 L 07/05/19 03:50 95 07/05/19 01:40 93 L Weight Weight 208 lb 11.2 oz I&O: 07/04/19 07/05/19 07/06/19 06:59 06:59 06:59 Intake Total 120 Output Total 750 Balance -630 Result Diagrams: 07/04/19 22:31 07/04/19 22:31 Additional Labs: Accuchecks 07/05/19 05:54 POC Glucose 166 H Hospitalist ROS - Medication Medications: Active Medications Generic Name Dose Route Start Last Admin Trade Name Freq PRN Reason Stop Dose Admin Budesonide 0.25 mg 07/05/19 09:00 07/05/19 10:08 Pulmicort Neb Solution INH 0.25 mg BID JERMAINE Administration Cholecalciferol 400 units 07/05/19 09:00 07/05/19 11:58 Vitamin D PO 400 units DAILY JERMAINE Administration Famotidine 20 mg 07/05/19 09:00 07/05/19 11:58 Pepcid PO 20 mg 0900 JERMAINE Administration Fluoxetine HCl 20 mg 07/05/19 09:00 07/05/19 11:57 Prozac PO 20 mg DAILY JERMAINE Administration Gabapentin 800 mg 07/05/19 12:00 07/05/19 11:54 Neurontin PO 800 mg 1200 JERMAINE Administration Cefepime HCl 2 gm/ Sodium 100 mls @ 200 mls/hr 07/05/19 08:00 07/05/19 09:18 Chloride IVPB 100 mls 0800,2000 JERMAINE Administration Sodium Chloride 1,000 mls @ 50 mls/hr 07/05/19 05:00 07/05/19 05:43 Normal Saline 0.9% IV 1,000 mls .Q20H JERMANIE Administration Iron/Minerals/Multivitamins 1 tab 07/05/19 09:00 07/05/19 11:57 Theragran M PO 1 tab DAILY JERMAINE Administration Levothyroxine Sodium 125 mcg 07/05/19 06:00 07/05/19 05:43 Synthroid PO 125 mcg 0600 JERMAINE Administration Metoprolol Tartrate 25 mg 07/05/19 09:00 07/05/19 11:56 Lopressor PO 25 mg BID JERMAINE Administration Oxybutynin Chloride 10 mg 07/05/19 09:00 07/05/19 11:56 Ditropan PO 10 mg DAILY JERMAINE Administration - Exam General Appearance: ill appearing Eye: PERRL, anicteric sclera ENT: no oropharyngeal lesions, dry oral mucosa Neck: supple, no JVD Heart: RRR, no murmur Respiratory: no wheezes, no rales Gastrointestinal: soft, non-tender, non-distended, normal bowel sounds Extremities: no cyanosis, no edema Neurological: cranial nerve grossly intact, no focal deficits Hosp A/P (1) Acute kidney injury Code(s): N17.9 - ACUTE KIDNEY FAILURE, UNSPECIFIED Status: Acute (2) Encephalopathy acute Code(s): G93.40 - ENCEPHALOPATHY, UNSPECIFIED Status: Acute Plan: metabolic (3) Sepsis Code(s): A41.9 - SEPSIS, UNSPECIFIED ORGANISM Status: Suspected Qualifiers: Sepsis type: sepsis due to unspecified organism Sepsis acute organ dysfunction status: with acute organ dysfunction Severe sepsis acute organ dysfunction type: acute renal failure Severe sepsis shock status: without septic shock (4) UTI (urinary tract infection) Status: Acute Qualifiers: Urinary tract infection type: acute cystitis Hematuria presence: without hematuria Qualified Code(s): N30.00 - Acute cystitis without hematuria (5) Afib Code(s): I48.91 - UNSPECIFIED ATRIAL FIBRILLATION Status: Chronic Qualifiers: Atrial fibrillation type: paroxysmal Qualified Code(s): I48.0 - Paroxysmal atrial fibrillation (6) Anxiety and depression Code(s): F41.8 - OTHER SPECIFIED ANXIETY DISORDERS Status: Chronic (7) COPD (chronic obstructive pulmonary disease) Status: Chronic Qualifiers: COPD type: chronic bronchitis (8) Chronic low back pain Code(s): M54.5 - LOW BACK PAIN; G89.29 - OTHER CHRONIC PAIN Status: Chronic (9) GERD (gastroesophageal reflux disease) Code(s): K21.9 - GASTRO-ESOPHAGEAL REFLUX DISEASE WITHOUT ESOPHAGITIS Status: Chronic Qualifiers: Esophagitis presence: without esophagitis (10) Hypertension Code(s): I10 - ESSENTIAL (PRIMARY) HYPERTENSION Status: Chronic Qualifiers: (11) Hypothyroidism Code(s): E03.9 - HYPOTHYROIDISM, UNSPECIFIED Status: Chronic Qualifiers: Hypothyroidism type: unspecified Qualified Code(s): E03.9 - Hypothyroidism , unspecified (12) Obesity (BMI 30-39.9) Code(s): E66.9 - OBESITY, UNSPECIFIED Status: Chronic (13) Metabolic acidosis Code(s): E87.2 - ACIDOSIS Status: Acute - Plan prelim blood cs x 2-ve, await urine cs is on cefepime and vanc gentle iv hydration d/w daughter at bedside, pt is DNAR continue synthroid, hold all other oral meds until she wakes up fully pulmicort/duonebs, nasal oxygen prior ef of 55% on echo 12/2017
[2019-07-05 13:37] LABS: Medtox Reader # READER 4; Phencyclidine (PCP) Not Detected (NotDetected); THC/Cannabinoid Screen Not Detected (NotDetected)
[2019-07-05 13:38] LABS: Amphetamine Not Detected (NotDetected); Barbiturates Screen Not Detected (NotDetected); Benzodiazepine Screen Detected (NotDetected); Cocaine Metabolite Screen Not Detected (NotDetected); Medtox Control Line Valid? VALID (VALID); Methadone Not Detected (NotDetected); Methamphetamine Not Detected (NotDetected); Opiate Screen Detected (NotDetected); Oxycodone Screen Not Detected (NotDetected); Tricyclic Screen Not Detected (NotDetected)
[2019-07-05] MEDS: HYDROcodone/Acetaminophen 10/325 mg Tablet PO PRN ×2 (15:59→20:20)
[2019-07-05] MEDS ORDERED: Sodium Bicarbonate 75 MEQ in Sodium Chloride 0.45% 1,000 ML IV SCH (16:15)
[2019-07-05 17:03] LABS: Albumin 3.4 g/dL (3.4-4.8); Anion Gap 12 mmol/L (10-20); BUN (Urea Nitrogen) 25 mg/dL (9.8-20.1); BUN/Creatinine Ratio 17.48; Calc. Creatinine Clearance 48 mL/min (70-130); Calcium 8.6 mg/dL (7.8-10.44); Carbon Dioxide 20 mmol/L (23-31); Chloride 108 mmol/L (98-107); Estimated GFR-MDRD 35; Glucose 129 mg/dL (83-110); Sodium 136 mmol/L (136-145)
[2019-07-05 18:36] LABS: Creatinine, Urine 27.78 mg/dL (47-110)
[2019-07-05] MEDS: ALPRAZolam 0.25 MG TAB PO SCH (20:20)
[2019-07-05] MEDS: Atorvastatin Calcium 10 MG TAB PO SCH (20:20)
--- NOTE | 2019-07-05 20:29 | CT ---
CHEST CT WITHOUT CONTRAST: 07/05/19 COMPARISON: 03/07/19 HISTORY: Tracheomalacia. Neutrophilia. Cough. FINDINGS: CHEST CT: Limited evaluation of the mediastinum due to the lack of IV contrast administration. Enlarged precarinal lymph node measuring 1.9 x 1.7 cm. Additional mildly enlarged AP window and parat sowmya lymph nodes are noted. Heart size is within upper limits of normal. No significant pericardia l fluid. There is atherosclerosis of a nonaneurysmal thoracic and upper abdominal aorta. Upper abdomen demonstrates grossly unremarkable solid organs. There is mild flattening of the trache a along with narrowing of bilateral main stem bronchi. There are patchy opacities in the middle lobe, bilateral lower lobes which may represent atelectasis. There is also abnormal hypoattenuation involv ing the left central bronchus. There appears to be abnormal hypoattenuation in the right main stem br onchus as well as the bronchi supplying both lower lobes centrally. Patchy ground glass opacities in the lung parenchyma. No significant pleural fluid. No pneumothorax. No lytic or blastic lesions in th e osseous structures. Calcification of the aortic valve and mitral annulus. IMPRESSION: 1. Cardiomegaly. 2. Mediastinal lymphadenopathy, nonspecific. 3. Opacification of bilateral lower lobe bronchi with associated post obstructive atelectasis. O pacification may represent mucous or secretions. Other etiologies cannot be excluded. Consider bronch oscopy. 4. Narrowing of both central bronchi with hypodensity in the left central bronchus. 1. POS: [facility]
[2019-07-05] MEDS ORDERED: Non-Formulary Item 1 EACH (Zantac 75 MG) PO SCH (21:00)
[2019-07-06] MEDS: Vancomycin HCl 750 MG in Sodium Chloride 0.9% 250 ML 250 ML IVPB SCH (00:18)
--- NOTE | 2019-07-06 00:21 | CON ---
DATE OF CONSULTATION: 07/05/2019 REASON FOR CONSULTATION: Fever, respiratory symptoms. 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 She had also one episode of invasive UTI and C difficile in the past. The last admission was in March when she came in with fever after being treated for C difficile colitis. The impression was abnormal urinalysis and a positive urine culture, but we felt that the urinary findings were likely not responsible for the clinical presentation because the antimicrobial we utilized, which led to clinical improvement, was not effective against the organism isolated from the urinary tract. So, we felt that the respiratory tract infection was the more likely culprit. After going home, she did well relatively speaking. She has poor mobility and usually stays in a wheelchair or in a recliner all day long and for the past week before this admission, she started noticing increasing frequency of coughing spells with sputum production. She denied any headaches. No chest pain or abdominal pain or diarrhea. No genitourinary symptoms. No joint symptoms. The initial evaluation here in the hospital identified BP 130/60, pulse 93, respirations 24, temperature 99.5. She was lethargic, but in no acute distress. Chest with coarse breath sounds bilaterally and diminished air flow. Heart examination was normal. Abdomen is soft, nontender. Bladder was not distended. Initial labs with a T-max 99.5, BP 150/69, pulse 81, respirations 20, O2 saturation 93% to 99% with nasal cannula O2. 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 PAST SURGICAL HISTORY: Appendectomy, hysterectomy, cholecystectomy. ALLERGIES: BACTRIM WITH RASH. FAMILY HISTORY: Noncontributory. CURRENT MEDICATIONS: 1. Aurora. 2. Xanax. 3. Lipitor. 4. Pulmicort. 5. Cefepime. 6. Vitamin D. 7. Prozac. 8. Gabapentin. 9. Synthroid. 10. Lopressor. 11. Zofran. 12. IV vancomycin. PHYSICAL EXAMINATION: VITAL SIGNS: T-max 99.5, BP 159/69, pulse 77, O2 saturation 93% to 99%. SKIN: With no areas of skin breakdown. The patient has a peripheral IV access and is voiding spontaneously. No lymphadenopathy. HEENT: Ocular movements conjugate. Oral cavity with quite a few teeth in place with the expected decay. NECK: Supple. No jugular vein distention or carotid bruits. LUNGS: With diminished breath sounds at bases. Coarse breath sounds, few rhonchi. She has diminished air excursions. HEART: S1 and S2. Regular rate without murmurs. ABDOMEN: Soft, not distended or tender. No ascites. No bladder distention. No organomegaly. MUSCULOSKELETAL: No joint inflammatory activity. She has weakness in lower extremities. She cannot lift her knee from the bed, but she is able to move her feet. No edema. Upper extremity strength is preserved. NEURO: Cognitive function is intact. Good recollection with sense of humor. LABORATORY DATA: White cell count 16.4, hemoglobin 12.9, platelets 227 with 67% neutrophils. Sodium 136, creatinine 1.43. Baseline creatinine is 0.93 in April this year, so she seems to be a little bit volume contracted with hemodynamically mediated decrease in GFR. Liver profile was normal except for alkaline phosphatase 127, which could be from bone. Albumin 4.1, globulin 2.8. Urinalysis with greater than 50 wbc's. Microbiology, two sets of blood cultures pending. Chest x-ray with no infiltrates. ASSESSMENT: 1. 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 2. Recent episode of Clostridium difficile with recurrence. 3. Prior one episode of invasive urinary tract infection. 4. Abnormal urinalysis. 5. Increasing for coughing spells with sputum. DISCUSSION: Differential diagnosis includes another episode of respiratory tract infection from her predisposing factor which is the bronchial disease with broncho-tracheomalacia versus C diff or UTI. C diff is less likely. She has not had diarrhea, although she started having now some loose stools and she is at high risk for recurrence of Clostridium difficile. She would need to be tested this and placed on isolation if she has liquid stool. The UTI is less likely. She probably has a urinary tract colonization with pyuria, but not symptomatic UTI. We will have to continue monitoring blood cultures. We will order a CT of her chest to evaluate the more likely scenario which is a lower respiratory tract infection, which did not show up in the x-ray. This will allow evaluation of her tracheobronchial tree again. Job ID: [id number]
[2019-07-06] MEDS: HYDROcodone/Acetaminophen 10/325 mg Tablet PO PRN ×3 (01:25→20:42)
[2019-07-06] MEDS: Levothyroxine Sodium 125 MCG TAB PO SCH (05:04)
[2019-07-06 05:24] LABS: Anion Gap 11 mmol/L (10-20); BUN (Urea Nitrogen) 19 mg/dL (9.8-20.1); Calc. Creatinine Clearance 54 mL/min (70-130); Calcium 8.2 mg/dL (7.8-10.44); Carbon Dioxide 22 mmol/L (23-31); Chloride 108 mmol/L (98-107); Estimated GFR-MDRD 41; Glucose 99 mg/dL (83-110); Potassium 3.4 mmol/L (3.5-5.1); Sodium 138 mmol/L (136-145)
[2019-07-06 05:27] LABS: Band 6 % (5-11); Eosinophils 8 % (0-10); Hemoglobin 10.3 g/dL (12.0-16.0); Lymphocytes 13 % (21-51); MDiff Complete? YES; Mean Corpuscular HGB CONC 33.2 g/dL (32.0-36.0); Mean Corpuscular Hemoglobin 30.2 pg (27.0-31.0); Mean Corpuscular Volume 90.8 fL (78.0-98.0); Mean Platelet Volume 7.7 fL (7.4-10.4); Monocytes 10 % (0-10); Neutrophil 63 % (42-75); Platelet Count 193 thou/uL (130-400); RBC Distribution Width 15.4 % (11.5-14.5); Red Blood Cell (RBC) Count 3.43 mill/uL (4.20-5.40); White Blood Cell (WBC) Count 10.7 thou/uL (4.8-10.8)
[2019-07-06] MEDS ORDERED: Budesonide 0.5 MG/2 ML NEB ONE (06:32)
--- NOTE | 2019-07-06 07:20 | CON ---
DATE OF CONSULTATION: 07/05/2019 REQUESTING PHYSICIAN: Dr. Desmond Cuba. REASON FOR CONSULTATION: Acute kidney injury. HISTORY OF PRESENT ILLNESS: A 79-year-old female with known history of atrial fibrillation, chronic bronchitis, as well as recurrent UTI associated with sepsis, CKD with recurrent episodes of NIKI, admitted due to acute onset of generalized weakness, associated with fever and cough. The patient also was noted to be more sleepy. Impression of sepsis with hypoxia and acute encephalopathy was made, and the patient was started on broad-spectrum antibiotics. Nephrology consult was requested due to acute kidney injury. The patient's baseline creatinine ranges from 0.7 to 1.0, but was 1.97 on presentation associated with mild hyponatremia of sodium 133. The patient earlier this morning was noted to be somnolent with left-sided facial droop concerning for acute CVA, hence code stroke was called, but further evaluation with CT scan was unremarkable. The patient later woke up from 9:00 a.m. and has been fairly awake since then. She was able to tell me some history. Reported poor appetite. Admitted to cough, which is chronic with some sputum production. Denied headache or chest pain. It was reported that oral intake was poor prior to hospitalization. The patient was also noted to be hypoxic on presentation and was started on oxygen supplementation, but that has been weaned off. Of note, the patient has chronic debility as she is wheelchair bound due to chronic lower extremity weakness related to prior lumbar spondylosis requiring back surgery. There is no history of leg swelling, change in bowel habit, nausea, vomiting, or falls. PAST MEDICAL HISTORY: 1. Chronic debility/wheelchair bound status. 2. Chronic bronchitis. 3. Hypothyroidism. 4. Atrial fibrillation. 5. Hyperlipidemia. 6. Chronic kidney disease stage 3. 7. Hypertension. 8. Depression. 9. Anxiety. 10. Gastroesophageal reflux disease. 11. Recurrent urinary tract infection. PAST SURGICAL HISTORY: 1. Cholecystectomy. 2. Appendectomy. 3. Hysterectomy. 4. Back surgery. FAMILY HISTORY: History of heart attack in father. SOCIAL HISTORY: The patient lives with spouse. Denied alcohol, tobacco, or recreational drug use. ALLERGIES: 1. AMOXICILLIN. 2. CIPROFLOXACIN. 3. CLAVULANIC ACID. 4. CLINDAMYCIN. 5. ERYTHROMYCIN. 6. METOLAZONE. 7. NALBUPHINE. 8. OXYCODONE. 9. AUGMENTIN. 10. BACTRIM. 11. ZOLPIDEM. 12. TRAMADOL. 13. FENTANYL PATCH. ALL THESE ARE NOTED TO CAUSE MENTAL STATUS CHANGES. WHILE SULFA, LATEX, AND OXYCODONE CAUSES RASH. OF NOTE, THE PATIENT HAS TOLERATED LEVAQUIN IN THE PAST. MEDICATIONS: Prior to hospital medications; 1. Hydrocodone/acetaminophen p.r.n. 2. Xanax 0.25 mg p.o. daily at bedtime. 3. Vitamin C 500 mg p.o. daily. 4. Lipitor 10 mg p.o. daily. 5. Budesonide 0.25 mg b.i.d. 6. Cholecalciferol 200 units p.o. daily. 7. Ciprofloxacin 500 mg p.o. b.i.d., recently started for urinary tract infection. 8. Esomeprazole 40 mg p.o. daily. 9. Fluoxetine 20 mg p.o. daily. 10. Lasix 20 mg p.o. daily. 11. Gabapentin 600 mg p.o. as needed. 12. Synthroid 125 mcg p.o. daily. 13. Loperamide 2 mg p.o. daily as needed. 14. Metoprolol 25 mg p.o. b.i.d. 15. Multivitamin with iron and folic acid (Centrum 1 tablet p.o. daily). 16. Oxybutynin 10 mg p.o. daily. 17. Potassium chloride 10 mEq p.o. daily. 18. Diovan 320 mg p.o. daily. 19. Zantac 75 mg p.o. daily at bedtime. Current hospital medications; 1. Cefepime 2 g q.12 hours. 2. Normal saline at 50 mL/h. 3. Vancomycin 750 mg daily. 4. Xanax 0.25 mg p.o. daily at bedtime. 5. Lipitor 10 mg p.o. daily at bedtime. 6. Budesonide inhalation b.i.d. 7. Cholecalciferol p.o. daily. 8. Pepcid 20 mg p.o. daily. 9. Fluoxetine 20 mg p.o. daily. 10. Gabapentin 800 mg p.o. daily in the noon. 11. Levothyroxine 125 mcg p.o. daily in the morning. 12. Metoprolol 25 mg p.o. b.i.d. 13. Multivitamin with mineral one tablet p.o. daily. 14. Ditropan 10 mg p.o. daily. 15. Hydrocodone/acetaminophen 1 tablet p.o. p.r.n. for pain. 16. Hydralazine IV 10 mg every 4 hours p.r.n. for BP elevation. 17. Zofran 4 mg q.6 p.r.n. for nausea and vomiting. REVIEW OF SYSTEMS: This is limited due to the patient's condition. However, pertinent positives and negatives included in the history of present illness. Otherwise review of system performed was negative. PHYSICAL EXAMINATION: VITAL SIGNS: Current vitals showed temperature 97.9, pulse 79, respiratory rate 20, SpO2 of 99% on room air, blood pressure is 151/70. Of note, however, the patient had temperature of 101.4 in the ER on presentation. GENERAL: Elderly female, fatigued, in no obvious distress noted. Febrile to touch. Anicteric. Acyanotic. HEENT: Normocephalic and atraumatic. Oral mucosa is dry. NECK: Supple with good range of motion. No masses or lymphadenopathy appreciated. CARDIOVASCULAR: Regular rhythm and rate with normal heart sounds 1 and 2. No obvious murmur was appreciated. RESPIRATORY: Fair air entry bilaterally with some transmitted breath sounds. No obvious rhonchi were appreciated. GI: Obese, soft, nontender, nondistended with normal bowel sounds. EXTREMITIES: Grossly normal looking, atraumatic with no obvious edema or erythema. PERSONAL INVESTMENT ADVISER: Conscious and alert. Cranial nerves 2 through 12 are grossly intact. No obvious facial droop was appreciated. The patient moves all extremities, but weakly. DIAGNOSTIC DATA: There are no labs today, July 05. However, on presentation to the ER on July 04, the patient had WBC count of 16.4, hemoglobin of 12.9, MCV of 90.6, platelet of 227. CMP on presentation showed sodium 133, potassium 103, CO2 of 17, BUN 31, creatinine 1.97, glucose 154, calcium 9.0, total bilirubin 0.3, AST 18, ALT 16, alkaline phosphatase 127, total protein 6.9, albumin 4.1, globulin 2.8. Lactic acid earlier on today was 2.9, which was the same number when the patient presented to the ER. Urinalysis on presentation showed yellow turbid urine with pH of 5.5, specific gravity of 1.009, urine protein 30 mg/dL, normal glucose, negative ketone and bilirubin, 1+ blood and nitrite with leukocyte esterase of 500 mg/dL. Microscopy showed 21 to 50 rbc and greater than 50 wbc. Urine drug screen performed on presentation was positive for opioids and benzodiazepine. ASSESSMENT: 1. Acute kidney injury. This is superimposed on chronic kidney disease stage 3. This is most likely due to hemodynamic factors related to sepsis and poor oral intake. 2. Chronic kidney disease stage 3. 3. Sepsis due to urinary tract infection. Pneumonic process could not be ruled out due to worsening cough and associated hypoxia, which is resolved at this time. 4. Acute metabolic encephalopathy: Due to sepsis from urinary tract infection as well as acute kidney injury. 5. Mild hyponatremia: Most likely due to volume depletion with appropriate ADH secretion. 6. Metabolic acidosis: Due to acute kidney injury and sepsis. 7. Hypertension: Blood pressure control so far is acceptable. 8. Transient change in mental status: Most likely due to acute encephalopathy from sepsis, which is resolving. TIA remains a concern. PLAN: 1. We will get urine electrolytes to calculate fractional excretion of sodium and urea. 2. We will also start the patient on bicarb containing infusion due to metabolic acidosis. 3. We will also repeat BMP and follow renal function. 4. Avoid nephrotoxic agents. 5. Oral intake as tolerated will be encouraged. 6. Further recommendation and treatment to follow depending on hospital course and review of other diagnostic test. Many thanks for involving us in the care of this patient. We will follow along with you. Job ID: [id number]
[2019-07-06] MEDS: Budesonide 0.25 MG/2 ML NEB INH SCH ×2 (07:43→18:46)
[2019-07-06] MEDS: Potassium Chloride 20 MEQ TAB PO SCH ×2 (08:41→15:03)
[2019-07-06] MEDS: Cefepime 2 GM in Sodium Chloride 0.9% 100 ML IVPB SCH ×2 (08:41→20:42)
[2019-07-06] MEDS: Multivitamin W/ Minerals 1 TAB PO SCH (08:42)
[2019-07-06] MEDS: Famotidine 20 MG TAB PO SCH (08:42)
[2019-07-06] MEDS: Cholecalciferol (Vitamin D3) 400 UNITS TAB PO SCH (08:42)
[2019-07-06] MEDS: Metoprolol Tartrate 25 MG TAB PO SCH ×2 (08:42→20:41)
[2019-07-06] MEDS: FLUoxetine HCl 20 MG CAP PO SCH (08:42)
[2019-07-06] MEDS: Oxybutynin 5 MG TAB PO SCH (08:43)
--- NOTE | 2019-07-06 10:49 | PQF ---
JOSÉ GAN, JESENIA WOODS MD [id number] [facility]-[id number] [phone] CLINICAL DOCUMENTATION IMPROVEMENT CLARIFICATION FORM: ICD-10 Updated PLEASE DO AN ADDENDUM TO THE PROGRESS NOTE WITH ANY DOCUMENTATION UPDATES OR ADDITIONS AND CARRY THROUGH TO DC SUMMARY. THANK YOU. DATE: 07/06/19 ATTN:DR. Geovanna ROBLES Please exercise your independent, professional judgment in responding to the clarification form. Clinical indicators are provided on the bottom of this form for your review. Please check appropriate box(s): [ x ] Acute Respiratory Failure: [ x ] with Hypoxia[ x ] with Hypercapnia [ ] Acute On Chronic Respiratory Failure: [ ] with Hypoxia [ ] with Hypercapnia [ ] Acute Respiratory Failure due to: (etiology) [ ] Chronic Respiratory Failure only [ ] with Hypoxia [ ] with Hypercapnia [ ] Hypoxia [ ] Other diagnosis [ ] Unable to determine In addition, please specify: Present on Admission (POA): [ x ] Yes [ ] No [ ] Unable to determine For continuity of documentation, please document condition throughout progress notes and discharge summary. Thank You. CLINICAL INDICATORS - SIGNS / SYMPTOMS / LABS 07/04 ED REPORT: ON PRESENTATION TO ED O2 SATS 88-% 93% 4L/NC, RESP -07/04 H &P (CR) PT WITH LONGSTANDING HISTORY OF CHRONIC BRONCHITIS WITHOUT HOME OXYGEN USE. INITIALLY MEETING SEPSIS CRITERIA WITH SUSPECTED URINARY TRACT INFECTIONS THE SOURCE. 07/05 PN ( MARGARET) PLAN: PULMICORT/DUONEBS, NASAL OXYGEN 07/05 CONSULT (OBI) IMPRESSION OF SEPSIS WITH HYPOXIA AND ACUTE ENCEPHALOPATHY WAS MADE. THE PT WAS ALSO NOTED TO BE HYPOXIC ON PRESENTATION AND WAS STARTED ON OXYGEN SUPPLEMENTATION BUT THAT HAS BEEN WEANED OFF. RISK: DX SEPSIS D/T UTI (OBI/ 07/05) HX OF BRONCHO-TRACHEOMALACIA W RECURRENT EPISODES OF RESPIRATORY TRACT INFECTIONS (CONSULT/JUAN FRANCISCO) 07/05 HX CHRONIC BRONCHITIS (CONSULT/OBI)07/05 TREATMENTS: SUPPLEMENTAL OXYGEN (07/04-PRESENT) DUONEBS ORDERED (CR/07/05) THANK YOU! MAJOR (This form is maintained as a part of the permanent medical record) 2014 [employer] All Rights Reserved [email or web address] [phone] [facility]ITAL[facility]
--- NOTE | 2019-07-06 11:19 | CON ---
DATE OF CONSULTATION: 07/06/2019 The following encompassed 75 minutes of time, of that time, greater than 50% was spent with the patient and/or in the unit in the hospital. HISTORY OF THE PRESENT ILLNESS: We have been consulted to see Ms. Santizo, who is a 79-year-old female, who is currently hospitalized with cough and fever. Cough started several days ago and was associated with fever. Sputum is whitish in nature. She had a CT scan showing infiltrative changes in both lower lobes. She says she feels better since admission. She is about to be moved up to the regular medical floor. PAST MEDICAL HISTORY: 1. Tracheobronchomalacia. 2. COPD. 3. Pneumonia. 4. C difficile colitis. 5. Atrial fibrillation. 6. Hypothyroidism. 7. Lumbar spinal stenosis. 8. Hypertension. 9. Depression. 10. Anxiety. 11. Gastroesophageal reflux. PAST SURGICAL HISTORY: 1. Cholecystectomy. 2. Appendectomy. 3. Hysterectomy. 4. Lumbar spine surgery. MEDICATIONS: Prior to admission, these were reviewed and are listed in history and physical in the chart. Of note, her pulmonary medications include budesonide and I believe she is on albuterol and ipratropium. ALLERGIES: MULTIPLE INCLUDING AMOXICILLIN, CIPRO, AUGMENTIN, ERYTHROMYCIN, FENTANYL, METOLAZONE, SULFA, TRAMADOL, AND AMBIEN. FAMILY MEDICAL HISTORY: Remarkable for coronary artery disease. SOCIAL HISTORY: Nonsmoker. Does not consume alcohol. Does not use illicit drugs. Lives with her . REVIEW OF SYSTEMS: Twelve-point review of systems is otherwise negative. PHYSICAL EXAMINATION: VITAL SIGNS: Temperature 100.2, pulse 64, respirations 18, O2 saturation 93% on 2 L, and blood pressure 142/97. GENERAL: She is awake, pleasant, alert, in no distress. HEENT: Pupils react. Sclerae are anicteric. Oropharynx clear. NECK: No adenopathy or JVD. LUNGS: She has few crackles at both bases. CARDIAC: S1 and S2. Regular. ABDOMEN: Soft, obese, nontender, and nondistended. EXTREMITIES: No clubbing, cyanosis, or edema. NEUROLOGIC: Grossly intact throughout. LABORATORY DATA: White blood cell count 10.7, hematocrit 31.1, and platelet count 193. Sodium 138, potassium 3.4, chloride 108, CO2 of 22, BUN 19, creatinine 1.2, and glucose 99. I have reviewed and confirmed the findings on the CT. ASSESSMENT: 1. Bilateral lower lobe pneumonia. 2. Underlying chronic obstructive pulmonary disease. 3. Tracheobronchomalacia. PLAN: The current antibiotics, cefepime and vancomycin, should be adequate coverage. Consolidate if cultures come back negative. She seems to be improving on current treatment and I have nothing to add to her excellent care. Job ID: [id number]
[2019-07-06] MEDS: Gabapentin 400 MG CAP PO SCH (11:53)
--- NOTE | 2019-07-06 12:13 | PRG ---
DATE OF SERVICE: 07/06/2019 SERVICE: Nephrology. SUBJECTIVE: A 79-year-old female with recurrent UTI as well as recurrent NIKI, admitted due to acute onset of generalized weakness associated with fever, cough. Nephrology is following the patient for electrolyte derangement as well as acute kidney injury. The patient reports feeling better. Appetite is improving. Denied nausea, vomiting, or worsening shortness of breath. OBJECTIVE: VITAL SIGNS: Temperature 100.2, pulse 64, respiratory rate 18, SpO2 of 93% on 2 L nasal cannula, blood pressure is 142/97. GENERAL: Fatigued elderly female, in no obvious distress. Afebrile. Anicteric. Acyanotic. HEENT: Normocephalic, atraumatic. CARDIOVASCULAR: Regular rhythm and rate with normal heart sounds 1 and 2. RESPIRATORY: Fair air entry bilaterally with coarse transmitted breath sounds. No obvious rhonchi were appreciated. GI: Obese, soft, nontender, nondistended with normal bowel sounds. EXTREMITIES: Grossly normal looking, atraumatic with no edema or erythema. HOT BRAIDER: Conscious and alert, oriented x3 with appropriate mental status. Cranial nerves 2 through 12 are grossly intact. The patient moves all extremities but weakly. DIAGNOSTIC DATA: CBC showed WBC count of 10.7, hemoglobin of 10.3, MCV of 90.8, platelet of 193. Of note, on presentation, WBC count was 16.4 and hemoglobin was 12.9. BMP showed sodium 138, potassium 3.8, chloride 108, CO2 of 22, BUN 19, creatinine 1.26, glucose 99, calcium 8.2. Magnesium is 1.8. ASSESSMENT: 1. Acute kidney injury: Due to hemodynamic factors related to volume depletion from poor oral intake as well as hemodynamic factors related to sepsis. Creatinine is trending downward towards baseline. 2. Chronic kidney disease stage 3. 3. Hypokalemia: Due to poor oral intake. 4. Metabolic acidosis: Improved with bicarb infusion. 5. Hypertension: Control is acceptable. 6. Hyponatremia: Due to volume depletion with appropriate ADH secretion. Resolved with crystalloid therapy. PLAN: 1. Replete serum potassium with potassium chloride 80 mEq today. We will also get serum magnesium and replete if needed. 2. We will discontinue IV fluid. Oral fluid intake will be liberalized. We will also start the patient on oral supplementation. We will monitor vitals and restart antihypertensives if blood pressure is consistently elevated. However, we will avoid BOBBI inhibitor or ROBERTO blockers at this time due to acute kidney injury. Other treatment as per primary attending and other consulted services. Job ID: [id number]
--- NOTE | 2019-07-06 12:57 | PDOC.HOSPP ---
- Subjective Encounter Date: 07/06/19 Encounter Time: 12:10 Subjective: is awake this morning, responds well to verbal stimuli has cough+ daughter at bedside - Objective Vital Signs & Weight: Vital Signs (12 hours) Temp Pulse Resp BP Pulse Ox 07/06/19 12:12 99.6 F 18 92 L 07/06/19 11:58 92 L 07/06/19 07:41 64 18 93 L 07/06/19 07:17 100.2 F H 70 16 142/97 H 91 L 07/06/19 03:27 98.4 F 64 18 137/63 93 L Weight Weight 208 lb 11.2 oz I&O: 07/05/19 07/06/19 07/07/19 06:59 06:59 06:59 Intake Total 1510 240 Output Total 2350 Balance -840 240 Result Diagrams: 07/06/19 04:39 07/06/19 04:39 Hospitalist ROS - Medication Medications: Active Medications Generic Name Dose Route Start Last Admin Trade Name Freq PRN Reason Stop Dose Admin Acetaminophen 1,000 mg 07/05/19 04:59 07/06/19 08:42 Tylenol PO 1,000 mg Q6H PRN Administration Mild Pain (1-3) Hydrocodone Bitart/Acetaminophen 1 tab 07/05/19 04:59 07/06/19 01:25 [place] 10/325 PO 1 tab Q4HR PRN Administration Moderate Pain (4-6) Alprazolam 0.25 mg 07/05/19 21:00 07/05/19 20:20 Xanax PO 0.25 mg HS JERMAINE Administration Atorvastatin Calcium 10 mg 07/05/19 21:00 07/05/19 20:20 Lipitor PO 10 mg HS JERMAINE Administration Budesonide 0.25 mg 07/05/19 09:00 07/06/19 07:43 Pulmicort Neb Solution INH 0.25 mg BID JERMAINE Administration Cholecalciferol 400 units 07/05/19 09:00 07/06/19 08:42 Vitamin D PO 400 units DAILY JERMAINE Administration Famotidine 20 mg 07/05/19 09:00 07/06/19 08:42 Pepcid PO 20 mg 0900 JERMAINE Administration Fluoxetine HCl 20 mg 07/05/19 09:00 07/06/19 08:42 Prozac PO 20 mg DAILY JERMAINE Administration Gabapentin 800 mg 07/05/19 12:00 07/06/19 11:53 Neurontin PO 800 mg 1200 JERMAINE Administration Cefepime HCl 2 gm/ Sodium 100 mls @ 200 mls/hr 07/05/19 08:00 07/06/19 08:41 Chloride IVPB 100 mls 0800,2000 JERMAINE Administration Vancomycin HCl 750 mg/ Sodium 250 mls @ 250 mls/hr 07/05/19 23:59 07/06/19 00 :18 Chloride IVPB 250 mls Q24HR JERMAINE Administration Iron/Minerals/Multivitamins 1 tab 07/05/19 09:00 07/06/19 08:42 Theragran M PO 1 tab DAILY JERMAINE Administration Levothyroxine Sodium 125 mcg 07/05/19 06:00 07/06/19 05:04 Synthroid PO 125 mcg 0600 JERMAINE Administration Metoprolol Tartrate 25 mg 07/05/19 09:00 07/06/19 08:42 Lopressor PO 25 mg BID JERMAINE Administration Oxybutynin Chloride 10 mg 07/05/19 09:00 07/06/19 08:43 Ditropan PO 10 mg DAILY JERMAINE Administration Potassium Chloride 40 meq 07/06/19 08:00 07/06/19 08:41 K-Dur PO 07/06/19 17:01 40 meq BID-WM JERMAINE Administration Sodium Chloride 10 ml 07/06/19 09:00 07/06/19 08:43 Flush - Normal Saline IVF 10 ml Q12HR JERMAINE Administration - Exam General Appearance: NAD, awake alert Eye: PERRL, anicteric sclera ENT: no oropharyngeal lesions, moist mucosa Neck: supple, no JVD Heart: RRR, no murmur Respiratory: no wheezes, no rales Gastrointestinal: soft, non-tender, non-distended, normal bowel sounds Extremities: no cyanosis, 1+ LE edema Neurological: cranial nerve grossly intact, no focal deficits Psychiatric: A&O x 3 Hosp A/P (1) Acute kidney injury Code(s): N17.9 - ACUTE KIDNEY FAILURE, UNSPECIFIED Status: Resolved (2) Encephalopathy acute Code(s): G93.40 - ENCEPHALOPATHY, UNSPECIFIED Status: Resolved (3) Sepsis Code(s): A41.9 - SEPSIS, UNSPECIFIED ORGANISM Status: Suspected Qualifiers: Sepsis type: sepsis due to unspecified organism Sepsis acute organ dysfunction status: with acute organ dysfunction Severe sepsis acute organ dysfunction type: acute renal failure Severe sepsis shock status: without septic shock (4) UTI (urinary tract infection) Status: Acute Qualifiers: Urinary tract infection type: acute cystitis Hematuria presence: without hematuria Qualified Code(s): N30.00 - Acute cystitis without hematuria (5) Afib Code(s): I48.91 - UNSPECIFIED ATRIAL FIBRILLATION Status: Chronic Qualifiers: Atrial fibrillation type: paroxysmal Qualified Code(s): I48.0 - Paroxysmal atrial fibrillation (6) Anxiety and depression Code(s): F41.8 - OTHER SPECIFIED ANXIETY DISORDERS Status: Chronic (7) COPD (chronic obstructive pulmonary disease) Status: Chronic Qualifiers: COPD type: chronic bronchitis (8) Chronic low back pain Code(s): M54.5 - LOW BACK PAIN; G89.29 - OTHER CHRONIC PAIN Status: Chronic (9) GERD (gastroesophageal reflux disease) Code(s): K21.9 - GASTRO-ESOPHAGEAL REFLUX DISEASE WITHOUT ESOPHAGITIS Status: Chronic Qualifiers: Esophagitis presence: without esophagitis (10) Hypertension Code(s): I10 - ESSENTIAL (PRIMARY) HYPERTENSION Status: Chronic Qualifiers: (11) Hypothyroidism Code(s): E03.9 - HYPOTHYROIDISM, UNSPECIFIED Status: Chronic Qualifiers: Hypothyroidism type: unspecified Qualified Code(s): E03.9 - Hypothyroidism , unspecified (12) Obesity (BMI 30-39.9) Code(s): E66.9 - OBESITY, UNSPECIFIED Status: Chronic (13) Metabolic acidosis Code(s): E87.2 - ACIDOSIS Status: Resolved (14) PNA (pneumonia) Code(s): J18.9 - PNEUMONIA, UNSPECIFIED ORGANISM Status: Acute Qualifiers: Pneumonia type: due to unspecified organism Laterality: bilateral Lung location: lower lobe of lung Qualified Code(s): J18.1 - Lobar pneumonia, unspecified organism - Plan blood cs x 2-ve, await urine cs is on cefepime and vanc gentle iv hydration d/w daughter at bedside pt is DNAR continue home meds as above pulmicort/duonebs, nasal oxygen prior ef of 55% on echo 12/2017
[2019-07-06] MEDS: ALPRAZolam 0.25 MG TAB PO SCH (20:41)
[2019-07-06] MEDS: Enoxaparin Sodium 40 MG/0.4 ML SYRINGE SC SCH (20:41)
[2019-07-06] MEDS: Atorvastatin Calcium 10 MG TAB PO SCH (20:41)
[2019-07-07] MEDS: Vancomycin HCl 750 MG in Sodium Chloride 0.9% 250 ML 250 ML IVPB SCH (00:10)
[2019-07-07] MEDS ORDERED: Vancomycin HCl 1 GM in Premix Bag 1 BAG IVPB SCH (01:00)
[2019-07-07] MEDS: Levothyroxine Sodium 125 MCG TAB PO SCH (06:25)
[2019-07-07 06:50] LABS: Hemoglobin 11.7 g/dL (12.0-16.0); Mean Corpuscular HGB CONC 33.6 g/dL (32.0-36.0); Mean Corpuscular Hemoglobin 30.5 pg (27.0-31.0); Mean Corpuscular Volume 90.7 fL (78.0-98.0); Mean Platelet Volume 7.6 fL (7.4-10.4); Platelet Count 207 thou/uL (130-400); Red Blood Cell (RBC) Count 3.83 mill/uL (4.20-5.40); White Blood Cell (WBC) Count 12.5 thou/uL (4.8-10.8)
[2019-07-07] MEDS: Budesonide 0.25 MG/2 ML NEB INH SCH ×2 (06:50→18:54)
[2019-07-07 06:56] LABS: Albumin 3.5 g/dL (3.4-4.8); Anion Gap 15 mmol/L (10-20); BUN (Urea Nitrogen) 13 mg/dL (9.8-20.1); Calc. Creatinine Clearance 66 mL/min (70-130); Calcium 8.8 mg/dL (7.8-10.44); Carbon Dioxide 21 mmol/L (23-31); Chloride 107 mmol/L (98-107); Estimated GFR-MDRD 51; Glucose 108 mg/dL (83-110); Magnesium 1.8 mg/dL (1.6-2.6); Phosphorus 2.7 mg/dL (2.3-4.7); Potassium 3.5 mmol/L (3.5-5.1); Sodium 139 mmol/L (136-145)
[2019-07-07] MEDS: Famotidine 20 MG TAB PO SCH (08:08)
[2019-07-07] MEDS: FLUoxetine HCl 20 MG CAP PO SCH (08:08)
[2019-07-07] MEDS: Multivitamin W/ Minerals 1 TAB PO SCH (08:09)
[2019-07-07] MEDS: Metoprolol Tartrate 25 MG TAB PO SCH ×2 (08:09→20:22)
[2019-07-07] MEDS: Oxybutynin 5 MG TAB PO SCH (08:09)
[2019-07-07] MEDS ORDERED: Potassium Chloride 20 MEQ TAB PO SCH (08:15)
[2019-07-07] MEDS: HYDROcodone/Acetaminophen 10/325 mg Tablet PO PRN ×3 (09:30→20:23)
[2019-07-07] MEDS: Cefepime 2 GM in Sodium Chloride 0.9% 100 ML IVPB SCH (09:31)
[2019-07-07] MEDS: Cholecalciferol (Vitamin D3) 400 UNITS TAB PO SCH (09:33)
--- NOTE | 2019-07-07 10:40 | PRG ---
DATE OF SERVICE: 07/07/2019 SERVICE: Nephrology. SUBJECTIVE: A 79-year-old female with history of recurrent UTI, admitted with acute UTI with acute encephalopathy. Nephrology is following patient for acute renal failure superimposed on CKD 3. The patient reported poor sleep, but denied nausea, vomiting, abdominal pain, or leg swelling. Oral intake is still poor. OBJECTIVE: VITAL SIGNS: Temperature 98.6, pulse 96, respiratory rate 20, SpO2 of 94% on room air, blood pressure is 186/73. Review of BP, however, showed that this 186/73 is an outlier, with most of the previous BPs ranging from 120 to 150. GENERAL: Fatigued elderly female, in no obvious distress. Afebrile. Anicteric. Acyanotic. HEENT: Normocephalic, atraumatic. Oral mucosa is dry. CARDIOVASCULAR: Regular rhythm and rate, but tachycardic. RESPIRATORY: Fair air entry bilaterally with few transmitted breath sounds. No obvious rhonchi were appreciated. GI: Full, soft, nontender, nondistended with normal bowel sounds. EXTREMITIES: Grossly normal looking with no edema or erythema. The patient moves all extremities, but weakly. ENGRAVER STEEL PLATE: Conscious, alert, oriented x3 with appropriate mental status. Cranial nerves 2 through 12 are grossly intact. The patient moves all extremities. DIAGNOSTIC DATA: CBC showed WBC count of 12.5, hemoglobin of 11.7, MCV of 90.7, platelet of 207. Renal function panel showed sodium 139, potassium 3.5, chloride 107, CO2 of 21, anion gap 15, BUN 13, creatinine 1.04, glucose 108, calcium 8.8, phosphorus 2.7, magnesium 1.8, albumin 3.5. ASSESSMENT: 1. Acute kidney injury: Due to hemodynamic factors related to volume depletion from poor oral intake and sepsis, resolved. Creatinine is back to baseline. 2. Chronic kidney disease stage 3: Most likely related to old age and recurrent urinary tract infection, stable. 3. Hypokalemia: Repleted. 4. Metabolic acidosis: Improved by alkali therapy. 5. Hypertension: Control is suboptimal. 6. Hyponatremia due to volume depletion with appropriate ADH secretion: Resolved. PLAN: 1. Continue potassium supplementation to get it above 4. 2. Bonham oral intake advised. 3. Start oral supplementation with Ensure Enlive. 4. We will consider low-dose antihypertensive, especially beta jacqui if blood pressure remained consistently elevated. 5. Other treatment as per primary attending and other consulted specialties. Job ID: [id number]
[2019-07-07] MEDS ORDERED: Cefdinir 300 MG CAP PO SCH (11:30)
--- NOTE | 2019-07-07 11:38 | PRG ---
DATE OF SERVICE: 07/07/2019 SUBJECTIVE: She is awake, alert, and feels well. She wants to go home. OBJECTIVE: VITAL SIGNS: Temperature 98.6, pulse 80, respirations 20, O2 saturation 94% on 2 L, blood pressure 186/73. HEENT: Unremarkable. NECK: No adenopathy or JVD. LUNGS: Clear. CARDIAC: S1 and S2, regular. ABDOMEN: Soft. LABORATORY DATA: White blood cell count 12.5, hematocrit 34.8, and platelet count 207. Sodium 139, potassium 3.5, BUN 13, creatinine 1.0. ASSESSMENT: 1. Bilateral lower lobe pneumonia - better. 2. History of tracheobronchomalacia. PLAN: She is probably close to the point of discharge. Since she has not grown out any MRSA, I think we should go ahead and stop the vancomycin. I will convert her over to Omnicef. She should take that for about 7 days. I have no objection against her going home. Job ID: [id number]
[2019-07-07] MEDS: Gabapentin 400 MG CAP PO SCH (11:57)
--- NOTE | 2019-07-07 18:34 | PDOC.HOSPP ---
- Subjective Encounter Date: 07/07/19 Subjective: Pt seen feeling better , Denies sob Cough fever - Objective Vital Signs & Weight: Vital Signs (12 hours) Temp Pulse Resp BP Pulse Ox 07/07/19 13:02 96 16 92 L 07/07/19 08:00 94 L 07/07/19 07:42 98.6 F 20 186/73 H 94 L 07/07/19 06:50 80 16 94 L 07/07/19 06:48 80 16 94 L Weight Weight 208 lb 11.2 oz I&O: 07/06/19 07/07/19 07/08/19 06:59 06:59 06:59 Intake Total 1510 660 720 Output Total 2350 Balance -840 660 720 Result Diagrams: 07/07/19 06:25 07/07/19 06:25 Additional Labs: Accuchecks 07/06/19 05:53 POC Glucose 103 Hospitalist ROS - Review of Systems Constitutional: denies: fever Eyes: denies: pain ENT: denies: ear pain Respiratory: reports: cough Cardiovascular: denies: chest pain Gastrointestinal: denies: nausea Musculoskeletal: denies: neck pain Skin: denies: rash Neurological: denies: seizures - Medication Medications: Active Medications Generic Name Dose Route Start Last Admin Trade Name Freq PRN Reason Stop Dose Admin Acetaminophen 1,000 mg 07/05/19 04:59 07/06/19 08:42 Tylenol PO 1,000 mg Q6H PRN Administration Mild Pain (1-3) Hydrocodone Bitart/Acetaminophen 1 tab 07/05/19 04:59 07/07/19 14:13 [place] 10/325 PO 1 tab Q4HR PRN Administration Moderate Pain (4-6) Albuterol/Ipratropium 3 ml 07/06/19 13:00 07/07/19 13:02 Duoneb NEB 3 ml [id number] JERMAINE Administration Alprazolam 0.25 mg 07/05/19 21:00 07/06/19 20:41 Xanax PO 0.25 mg HS JERMAINE Administration Atorvastatin Calcium 10 mg 07/05/19 21:00 07/06/19 20:41 Lipitor PO 10 mg HS JERMAINE Administration Budesonide 0.25 mg 07/05/19 09:00 07/07/19 06:50 Pulmicort Neb Solution INH 0.25 mg BID JERMAINE Administration Cholecalciferol 400 units 07/05/19 09:00 07/07/19 09:33 Vitamin D PO 400 units DAILY JERMAINE Administration Enoxaparin Sodium 40 mg 07/06/19 21:00 07/06/19 20:41 Lovenox SC 40 mg 2100 JERMAINE Administration Famotidine 20 mg 07/05/19 09:00 07/07/19 08:08 Pepcid PO 20 mg 0900 JERMAINE Administration Fluoxetine HCl 20 mg 07/05/19 09:00 07/07/19 08:08 Prozac PO 20 mg DAILY JERMAINE Administration Gabapentin 800 mg 07/05/19 12:00 07/07/19 11:57 Neurontin PO 800 mg 1200 JERMAINE Administration Iron/Minerals/Multivitamins 1 tab 07/05/19 09:00 07/07/19 08:09 Theragran M PO 1 tab DAILY JERMAINE Administration Levothyroxine Sodium 125 mcg 07/05/19 06:00 07/07/19 06:25 Synthroid PO 125 mcg 0600 JERMAINE Administration Metoprolol Tartrate 25 mg 07/05/19 09:00 07/07/19 08:09 Lopressor PO 25 mg BID JERMAINE Administration Oxybutynin Chloride 10 mg 07/05/19 09:00 07/07/19 08:09 Ditropan PO 10 mg DAILY JERMAINE Administration Sodium Chloride 10 ml 07/06/19 09:00 07/07/19 08:08 Flush - Normal Saline IVF 10 ml Q12HR JERMAINE Administration - Exam General Appearance: awake alert Eye: anicteric sclera ENT: normocephalic atraumatic Neck: supple Heart: no gallops Respiratory: no wheezes Gastrointestinal: soft Extremities: no cyanosis Neurological: cranial nerve grossly intact Musculoskeletal: normal tone Psychiatric: normal affect Hosp A/P - Plan Encephalopathy acute ,metabolic andf toxic due to Pneumonia and sepsis and NIKI related Improving Acute kidney injury Improving Sepsis Possible due to Pneumonia improved antibiotics changed to cefdinir UTI possible colonization as per ID Afib Currently HR stable Anxiety and depression Continue home meds COPD Continue nebs Chronic low back pain GERD Hypertension Hypothyroidism DVT/GI prophyalxis Possible dc in am
[2019-07-07] MEDS: Atorvastatin Calcium 10 MG TAB PO SCH (20:22)
[2019-07-07] MEDS: Enoxaparin Sodium 40 MG/0.4 ML SYRINGE SC SCH (20:22)
[2019-07-07] MEDS: ALPRAZolam 0.25 MG TAB PO SCH (21:42)
[2019-07-07] MEDS ORDERED: Loperamide HCl 2 MG CAP PO PRN (22:40)
[2019-07-08] MEDS: Levothyroxine Sodium 125 MCG TAB PO SCH (05:46)
[2019-07-08] MEDS: HYDROcodone/Acetaminophen 10/325 mg Tablet PO PRN ×3 (05:46→20:18)
[2019-07-08] MEDS: Budesonide 0.25 MG/2 ML NEB INH SCH ×2 (07:15→18:28)
[2019-07-08] MEDS: Cefdinir 300 MG CAP PO SCH (07:58)
[2019-07-08] MEDS: Sodium Bicarbonate Tab 325 MG TAB PO SCH ×2 (07:58→20:17)
[2019-07-08] MEDS: Metoprolol Tartrate 25 MG TAB PO SCH ×2 (07:59→20:17)
[2019-07-08] MEDS: Cholecalciferol (Vitamin D3) 400 UNITS TAB PO SCH (07:59)
[2019-07-08] MEDS: Oxybutynin 5 MG TAB PO SCH (07:59)
[2019-07-08] MEDS: Multivitamin W/ Minerals 1 TAB PO SCH (07:59)
[2019-07-08] MEDS: FLUoxetine HCl 20 MG CAP PO SCH (07:59)
[2019-07-08] MEDS: Famotidine 20 MG TAB PO SCH (07:59)
[2019-07-08 09:59] LABS: Albumin 3.3 g/dL (3.4-4.8); Anion Gap 12 mmol/L (10-20); BUN (Urea Nitrogen) 12 mg/dL (9.8-20.1); BUN/Creatinine Ratio 12.37; Calc. Creatinine Clearance 70 mL/min (70-130); Calcium 8.6 mg/dL (7.8-10.44); Carbon Dioxide 23 mmol/L (23-31); Chloride 105 mmol/L (98-107); Estimated GFR-MDRD 55; Glucose 127 mg/dL (83-110); Magnesium 1.8 mg/dL (1.6-2.6); Phosphorus 3.1 mg/dL (2.3-4.7); Potassium 3.6 mmol/L (3.5-5.1); Sodium 136 mmol/L (136-145)
[2019-07-08] MEDS ORDERED: guaiFENesin 100 MG/5 ML UDCUP PO PRN (11:35)
--- NOTE | 2019-07-08 11:39 | PDOC.HOSPP ---
- Subjective Encounter Date: 07/08/19 Subjective: Pt seen , c/o intractable cough started today , Denies chest pain, headache , dizziness fever , - Objective Vital Signs & Weight: Vital Signs (12 hours) Temp Pulse Resp BP Pulse Ox 07/08/19 10:26 98.5 F 78 20 142/72 H 91 L 07/08/19 08:00 90 L 07/08/19 07:45 98.5 F 79 20 178/84 H 90 L 07/08/19 07:15 82 16 90 L 07/08/19 00:33 73 16 91 L Weight Weight 208 lb 11.2 oz I&O: 07/07/19 07/08/19 07/09/19 06:59 06:59 06:59 Intake Total 660 880 240 Balance 660 880 240 Result Diagrams: 07/07/19 06:25 07/08/19 09:26 Hospitalist ROS - Review of Systems Constitutional: denies: fever Eyes: denies: pain ENT: denies: ear pain Respiratory: reports: cough, dry, wheezing Cardiovascular: denies: chest pain Gastrointestinal: denies: vomiting Genitourinary: denies: dysuria Musculoskeletal: denies: neck pain Skin: denies: rash Neurological: denies: weakness - Medication Medications: Active Medications Generic Name Dose Route Start Last Admin Trade Name Freq PRN Reason Stop Dose Admin Acetaminophen 1,000 mg 07/05/19 04:59 07/06/19 08:42 Tylenol PO 1,000 mg Q6H PRN Administration Mild Pain (1-3) Hydrocodone Bitart/Acetaminophen 1 tab 07/05/19 04:59 07/08/19 05:46 [place] 10/325 PO 1 tab Q4HR PRN Administration Moderate Pain (4-6) Albuterol/Ipratropium 3 ml 07/06/19 13:00 07/08/19 07:17 Duoneb NEB 3 ml [id number] JERMAINE Administration Alprazolam 0.25 mg 07/05/19 21:00 07/07/19 21:42 Xanax PO 0.25 mg HS JERMAINE Administration Atorvastatin Calcium 10 mg 07/05/19 21:00 07/07/19 20:22 Lipitor PO 10 mg HS JERMAINE Administration Budesonide 0.25 mg 07/05/19 09:00 07/08/19 07:15 Pulmicort Neb Solution INH 0.25 mg BID JERMAINE Administration Cefdinir 600 mg 07/08/19 09:00 07/08/19 07:58 Omnicef PO 600 mg DAILY JERMAINE Administration Cholecalciferol 400 units 07/05/19 09:00 07/08/19 07:59 Vitamin D PO 400 units DAILY JREMAINE Administration Enoxaparin Sodium 40 mg 07/06/19 21:00 07/07/19 20:22 Lovenox SC 40 mg 2100 JERMAINE Administration Famotidine 20 mg 07/05/19 09:00 07/08/19 07:59 Pepcid PO 20 mg 0900 JERMAINE Administration Fluoxetine HCl 20 mg 07/05/19 09:00 07/08/19 07:59 Prozac PO 20 mg DAILY JERMAINE Administration Gabapentin 800 mg 07/05/19 12:00 07/07/19 11:57 Neurontin PO 800 mg 1200 JERMAINE Administration Iron/Minerals/Multivitamins 1 tab 07/05/19 09:00 07/08/19 07:59 Theragran M PO 1 tab DAILY JERMAINE Administration Levothyroxine Sodium 125 mcg 07/05/19 06:00 07/08/19 05:46 Synthroid PO 125 mcg 0600 JERMAINE Administration Loperamide HCl 2 mg 07/07/19 22:40 07/07/19 22:55 Imodium PO 2 mg Q4H PRN Administration Diarrhea/Loose Stools Metoprolol Tartrate 25 mg 07/05/19 09:00 07/08/19 07:59 Lopressor PO 25 mg BID JERMAINE Administration Oxybutynin Chloride 10 mg 07/05/19 09:00 07/08/19 07:59 Ditropan PO 10 mg DAILY JERMAINE Administration Sodium Bicarbonate 650 mg 07/08/19 09:00 07/08/19 07:58 Bicarbonate, Sodium PO 650 mg BID JERMAINE Administration Sodium Chloride 10 ml 07/06/19 09:00 07/08/19 08:11 Flush - Normal Saline IVF 10 ml Q12HR JERMAINE Administration - Exam Eye: anicteric sclera ENT: normocephalic atraumatic Neck: supple Heart: no murmur Respiratory: wheezes Gastrointestinal: soft Extremities: no cyanosis Skin: no lesions Hosp A/P - Plan Acute Encephalopathy ,metabolic and toxic due to Pneumonia and sepsis and NIKI related Improving Acute kidney injury Improving Sepsis Possible due to Pneumonia improved antibiotics changed to cefdinir Intractable cough Pt started having cough today and persistently coughing during interview added robitussin prn for now UTI possible colonization as per ID Afib Currently HR stable Anxiety and depression Continue home meds COPD Continue nebs Chronic low back pain Continue pain meds as needed GERD Hypertension Hypothyroidism DVT/GI prophyalxis Possible dc in am
--- NOTE | 2019-07-08 11:44 | PRG ---
DATE OF SERVICE: 07/08/2019 SUBJECTIVE: The patient is doing well, wants to go home. OBJECTIVE: VITAL SIGNS: Temperature is 98.5, pulse 78, respirations 20, O2 saturation 91% on room air, and blood pressure 142/72. HEENT: Unremarkable. NECK: No adenopathy, JVD, or bruits. LUNGS: Clear. CARDIAC: S1 and S2. Regular. ABDOMEN: Soft. LABORATORY DATA: Sodium 136, potassium 3.6, BUN 12, creatinine 0.9, and glucose 127. ASSESSMENT: 1. Bilateral lower lobe pneumonia, better. 2. History of tracheobronchomalacia. PLAN: Complete 7 days of outpatient antibiotics. She is clear for discharge from a pulmonary standpoint. Job ID: [id number]
[2019-07-08] MEDS: Gabapentin 400 MG CAP PO SCH (11:57)
[2019-07-08] MEDS: Diabetic Tussin 200 MG/10 ML UDCUP PO PRN ×3 (11:57→20:18)
--- NOTE | 2019-07-08 16:45 | EKG ---
Test Reason : Blood Pressure : / mmHG Vent. Rate : 068 BPM Atrial Rate : 068 BPM P-R Int : 204 ms QRS Dur : 112 ms QT Int : 442 ms P-R-T Axes : 057 -50 082 degrees QTc Int : 469 ms Normal sinus rhythm Left axis deviation Nonspecific T wave abnormality Prolonged QT Abnormal ECG Confirmed by KRISH LUNDBERG (2) on 07/08/2019 4:44:47 PM Referred By: Confirmed By:KRISH LUNDBERG
--- NOTE | 2019-07-08 17:13 | EKG ---
Test Reason : Blood Pressure : / mmHG Vent. Rate : 071 BPM Atrial Rate : 071 BPM P-R Int : 210 ms QRS Dur : 114 ms QT Int : 472 ms P-R-T Axes : 065 -60 062 degrees QTc Int : 512 ms Sinus rhythm with 1st degree A-V block Left axis deviation Possible Anterior infarct (cited on or before 06-APR-2019) Prolonged QT Abnormal ECG When compared with ECG of 04-JUL-2019 22:29, (Unconfirmed) Previous ECG has undetermined rhythm, needs review Nonspecific T wave abnormality now evident in Inferior leads Nonspecific T wave abnormality, worse in Anterior leads Nonspecific T wave abnormality has replaced inverted T waves in Lateral leads Confirmed by KRISH LUNDBERG (2) on 07/08/2019 5:13:13 PM Referred By: CR Confirmed By:KRISH LUNDBERG
--- NOTE | 2019-07-08 17:14 | PRG ---
DATE OF SERVICE: 07/08/2019 SUBJECTIVE: Ms. Santizo is still coughing quite a bit, not much sputum production, and overall she feels better. Other than her respiratory symptoms, not having improved much. She does feel less congested though. She feels overall better, sense of well-being and strength. No more loose stools. No abdominal pain or genitourinary symptoms. OBJECTIVE: VITAL SIGNS: She had a temperature elevation of 100.2 two days ago. She has been afebrile since. Blood pressure 140/72, pulse 78, respirations 16 to 20, and O2 saturation 91% to 92%. GENERAL: Awake, quite alert compared with when she came in. Feels comfortable at rest. HEENT: I did not see her coughing during our exam. Ocular movements conjugate. LUNGS: Improved breath sounds. They are much clear and no crackles noticed. No wheezing. HEART: S1 and S2. Regular rate. ABDOMEN: Soft, not distended. EXTREMITIES: She moves all extremities equally again with the deformities in the lower extremities. LABORATORY DATA: Sodium 136, creatinine 0.97, phosphorus 3.1, albumin 3.3. White cell count 12.5, hemoglobin 11.7, platelets 207. Urinalysis with greater than 50 wbc's. Microbiology with negative urine culture. C diff antigen toxin negative. DIAGNOSTIC DATA: Chest CT with cardiomegaly and mediastinal lymphadenopathy and opacification of bilateral lower lobe bronchi with postobstructive atelectasis and narrowing of the central bronchi with hypodensity in the left central bronchus. Pulmonary consultation has been obtained. IMPRESSION: Bilateral pneumonia, chronic obstructive pulmonary disease, tracheobronchomalacia. The patient currently on oral cefdinir and inhalers and budesonide inhalation. Job ID: [id number]
[2019-07-08] MEDS ORDERED: Chloraseptic Spray 180 ml Bottle PO PRN (17:19)
[2019-07-08] MEDS: Enoxaparin Sodium 40 MG/0.4 ML SYRINGE SC SCH (20:17)
[2019-07-08] MEDS: ALPRAZolam 0.25 MG TAB PO SCH (20:17)
[2019-07-08] MEDS: Atorvastatin Calcium 10 MG TAB PO SCH (20:17)
[2019-07-09] MEDS: Diabetic Tussin 200 MG/10 ML UDCUP PO PRN (05:46)
[2019-07-09] MEDS: Levothyroxine Sodium 125 MCG TAB PO SCH (05:46)
[2019-07-09] MEDS: HYDROcodone/Acetaminophen 10/325 mg Tablet PO PRN ×2 (05:46→10:23)
[2019-07-09] MEDS: Budesonide 0.25 MG/2 ML NEB INH SCH (07:09)
[2019-07-09 07:26] VITALS: BP 180/94; TEMP 98.4
--- NOTE | 2019-07-09 07:51 | PRG ---
DATE OF SERVICE: 07/09/2019 SERVICE: Nephrology. SUBJECTIVE: A 79-year-old female being followed up for acute kidney injury and electrolyte derangement. The patient was admitted due to sepsis associated with acute encephalopathy. Clinically improved. Still coughing occasionally. Oral intake is improving. OBJECTIVE: VITAL SIGNS: Temperature 98.8, pulse is 108, respiratory rate is 14, SpO2 of 98% on 2 L nasal cannula, blood pressure is 161/75. GENERAL: Elderly female, in no obvious distress. Fatigued, but afebrile. HEENT: Normocephalic, atraumatic. Oral mucosa is moist. CARDIOVASCULAR: Regular rhythm and rate with normal heart sounds 1 and 2. RESPIRATORY: Fair air entry bilaterally with some transmitted breath sounds. No obvious rhonchi were appreciated. GI: Full, soft, nontender, nondistended with normal bowel sounds. EXTREMITIES: Grossly normal looking atraumatic with no obvious edema. DISTRICT DIRECTOR: Conscious and alert, oriented x3. Memory lapse is noted. DIAGNOSTIC DATA: No BMP today. However, renal function panel of July 08 showed sodium 136, potassium 3.6, chloride 105 CO2 of 23, BUN 12, creatinine 0.97, glucose 127, calcium 8.6, phosphorus 3.1, magnesium 1.8, albumin 3.3. ASSESSMENT: 1. Acute kidney injury: Due to hemodynamic factors related to volume depletion and sepsis. Resolved. 2. CKD stage 3. 3. Hypokalemia, repleted. 4. Hypertension: The patient had low blood pressures, but been consistently elevated in the last 36 hours. 5. Metabolic acidosis. Improved with alkali therapy. 6. Hyponatremia: Due to volume depletion with appropriate ADH secretion: Resolved. PLAN: 1. We will restart Diovan. 2. We will also add Mucinex due to pneumonia. 3. Oral supplementation to continue. Other treatment as per primary attending. The patient can be discharged from Nephrology point of view. Close followup in 1 week is recommended. Job ID: [id number]
[2019-07-09] MEDS: Cefdinir 300 MG CAP PO SCH (08:13)
[2019-07-09] MEDS: Sodium Bicarbonate Tab 325 MG TAB PO SCH (08:13)
[2019-07-09] MEDS: Oxybutynin 5 MG TAB PO SCH (08:13)
[2019-07-09] MEDS: FLUoxetine HCl 20 MG CAP PO SCH (08:13)
[2019-07-09] MEDS: Multivitamin W/ Minerals 1 TAB PO SCH (08:14)
[2019-07-09] MEDS: Metoprolol Tartrate 25 MG TAB PO SCH (08:14)
[2019-07-09] MEDS: Famotidine 20 MG TAB PO SCH (08:14)
[2019-07-09] MEDS ORDERED: Valsartan 80 MG TAB PO SCH (09:00)
[2019-07-09] MEDS ORDERED: guaiFENesin ER 600 MG TAB PO SCH (09:00)
[2019-07-09] MEDS: Cholecalciferol (Vitamin D3) 400 UNITS TAB PO SCH (09:20)
--- NOTE | 2019-07-09 11:26 | DIS ---
DATE OF ADMISSION: 07/04/2019 DATE OF DISCHARGE: 07/09/2019 DISCHARGE DISPOSITION: Home with home health care. DISCHARGE MEDICATIONS: 1. Omnicef 600 mg daily for next 6 days. 2. Florastor 250 mg daily. 3. Mucinex twice daily for 2 weeks. All other home medications were left unchanged. The patient was advised to continue nebulizer treatment. The patient will also continue her home oxygen. CODE STATUS: [id number]. The patient was seen and examined on the day of discharge. Denies any new complaints. No chest pain, shortness of breath, or palpitations. Overall, symptomatically she feels much better. INPATIENT CONSULTANTS: 1. Infectious Disease, Dr. Burks. 2. Nephrology, Dr. Holm. 3. Pulmonary, Dr. Farrell. DIAGNOSTIC STUDIES: Chest x-ray on admission was negative for acute findings except for some nonspecific changes. CT scan of the chest on 05 July 2019, showed cardiomegaly with mediastinal lymphadenopathy and opacifications of bilateral lower lobe bronchi with associated postobstructive atelectasis. There was also narrowing of both central bronchi with hypodensity in the left central bronchus. CT scan of the brain was negative for acute findings. BRIEF HOSPITAL COURSE: The patient is a 79-year-old female, who presented to the emergency room with fever and cough. Please refer to the history and physical dated [address] Alexsander Cespedes for further details. The patient was admitted to the hospital with a diagnosis of suspected sepsis. The patient had a Code Green the following day due to altered mentation. CT scan of the brain was normal. However, after few minutes, her mentation was back to her baseline. Her workup was also consistent with bilateral lower lobe pneumonia. The patient was evaluated by Pulmonary, Dr. Farrell as well as Infectious Disease, Dr. Burks. She underwent a CT scan of the chest as discussed above. She was placed on cefepime and vancomycin on admission, which was continued. At discharge, she will continue Omnicef. She has been afebrile over the past 3 days. She has been cleared by consultants for discharge. FINAL DIAGNOSES: 1. Sepsis with acute organ dysfunction secondary to bilateral lower lobe pneumonia, suspected pneumococcal. 2. Chronic obstructive pulmonary disease. 3. Tracheobronchomalacia. 4. Physical deconditioning. 5. Suspected urinary tract infection on admission. Please note that urine cultures were not sent on admission. Urinalysis showed greater than 50 wbc's with 4+ bacteria. 6. Acute kidney injury on chronic kidney disease stage 3. Creatinine on admission was 1.97, at discharge is 0.97. 7. Hypokalemia, replaced. 8. Lactic acidosis on admission, resolved. 9. Hyponatremia, corrected. 10. Obesity with a BMI of 34.7. 11. Hypothyroidism. 12. Chronic low back pain. 13. Chronic respiratory failure, on home oxygen. 14. Toxic metabolic encephalopathy secondary to sepsis. 15. Paroxysmal atrial fibrillation. 16. Anxiety. 17. Depression, mild stable. 18. Gastroesophageal reflux disease. 19. Hypertension. TIME SPENT WITH PATIENT: Total time coordinating the discharge of this patient was 34 minutes. Job ID: [id number]
--- NOTE | 2019-07-09 12:20 | PRG ---
DATE OF SERVICE: 07/09/2019 SUBJECTIVE: Recurrent admission to the hospital with recurrent problems, cough, congestion, shortness of breath. This morning, she says she is feeling better. She is less congested. Chest x-ray shows bibasilar previously described atelectasis. I do not see anything new. Infectious Disease was consulted. She is not walked for years. OBJECTIVE: VITAL SIGNS: Temperature 98, sats 99% nasal cannula, pulse 87, blood pressure is 180/94. CHEST: Decreased breath sounds. No wheezing. CARDIAC: Normal S1 and S2. ABDOMEN: Soft, no masses. ASSESSMENT: Bedridden, paraplegic, bilateral atelectasis, tracheomalacia, secretions. At this stage, there is nothing additional to offer. On antibiotics, neb treatments, supportive care, home any time. Job ID: [id number]
== END 2019-07-09 12:03 | disposition home health service (06) | DRG 871 ==
LOC: ERS 22:20 → 2NO 23:52 → T4-B 07-06 11:32
PROVIDERS: ADMIT Family Medicine; ATTEND Family Medicine
DX: A41.9 Sepsis, unspecified organism (principal); G93.41 Metabolic encephalopathy; J13 Pneumonia due to Streptococcus pneumoniae; J96.21 Acute and chronic respiratory failure with hypoxia; J96.22 Acute and chronic respiratory failure with hypercapnia; N17.9 Acute kidney failure, unspecified; N30.00 Acute cystitis without hematuria; E87.2 Acidosis; E87.1 Hypo-osmolality and hyponatremia; G82.20 Paraplegia, unspecified; J98.11 Atelectasis; J44.0 Chronic obstructive pulmonary disease with (acute) lower respiratory infection; Z66 Do not resuscitate; K21.9 Gastro-esophageal reflux disease without esophagitis; D63.1 Anemia in chronic kidney disease; E03.9 Hypothyroidism, unspecified; E78.5 Hyperlipidemia, unspecified; F41.9 Anxiety disorder, unspecified; F32.9 Major depressive disorder, single episode, unspecified; R65.20 Severe sepsis without septic shock; I48.0 Paroxysmal atrial fibrillation; M54.5 Low back pain; G89.29 Other chronic pain; I12.9 Hypertensive chronic kidney disease with stage 1 through stage 4 chronic kidney disease, or unspecified chronic kidney disease; E66.9 Obesity, unspecified; E87.6 Hypokalemia; N18.3 Chronic kidney disease, stage 3 (moderate); E86.9 Volume depletion, unspecified; Z74.01 Bed confinement status; Z88.1 Allergy status to other antibiotic agents; Z88.8 Allergy status to other drugs, medicaments and biological substances; Z91.040 Latex allergy status; Z88.2 Allergy status to sulfonamides; Z88.5 Allergy status to narcotic agent; Z79.899 Other long term (current) drug therapy; Z68.34 Body mass index [BMI] 34.0-34.9, adult; Z87.440 Personal history of urinary (tract) infections; Z99.3 Dependence on wheelchair; Z87.09 Personal history of other diseases of the respiratory system; Z90.49 Acquired absence of other specified parts of digestive tract; Z90.710 Acquired absence of both cervix and uterus; Z79.51 Long term (current) use of inhaled steroids
CPT/HCPCS: 36415; 36416; 51701; 70450; 71045; 71250; 80048; 80053; 80069; 80202; 80306; 81003; 81015; 82550; 82553; 82570; 83605; 83735; 83880; 84156; 84300; 84484; 84540; 84703; 85007; 85025; 85027; 85610; 85730; 87040; 87324; 87449; 93005; 93010; 94640; 96361; 96365; A4353; J0692; J0696; J1650; J3370; J3490; J7050; J7620; J7626

== ENCOUNTER 2019-07-17 09:27 | Inpatient (IN) | payer MEDICARE, OTHER ==
[2019-07-17 09:55] LABS: Bilirubin Negative (Negative); Blood, Urine Negative (Negative); Glucose, Urine (Dipstick) Negative (Negative); Leukocyte Moderate (Negative); Nitrite Negative (Negative); Protein, Urine (Dipstick) Negative (Neg-Trace); Urobilinogen 0.2 mg/dL (Less than 2)
[2019-07-17 09:56] LABS: Clarity Clear (Clear)
[2019-07-17 10:07] LABS: Bacteria/HPF Rare-Few HPF (None Seen); RBC/HPF 0-3 HPF (0-3); Squamous Epithelial 0-3 HPF (0-3); WBC/HPF 0-3 HPF (0-3)
[2019-07-17 10:10] LABS: Yeast-Budding 1+ HPF (None Seen)
--- NOTE | 2019-07-17 10:11 | RAD ---
Exam: Chest one view HISTORY:Fever. Comparison: 07/04/2019 FINDINGS: Cardiac silhouette:Persistent cardiomegaly. Aorta: Stable atherosclerosis of the aortic knob. Pulmonary vessels: Normal Costophrenic angles: Multiple left-sided pleural effusion is suspected. LUNGS: Bibasilar left greater than right parenchymal opacities. Lung volumes are diminished, likely d ue to a poor inspiratory effort. Pneumothorax: None Osseous abnormalities: Chronic changes in the left shoulder. IMPRESSION: 1. Diminished lung volumes, likely due to a poor inspiratory effort. 2. Pleural and parenchymal changes in the left lung base and parenchymal changes in the right lung ba se. Bibasilar atelectasis, pneumonia or aspiration are considerations. Continued surveillance is recommended.
[2019-07-17] MEDS ORDERED: Cefepime 2 GM VIAL ONE (10:18)
[2019-07-17 10:26] LABS: ALT (SGPT) 14 U/L (8-55); AST (SGOT) 15 U/L (5-34); Albumin 3.7 g/dL (3.4-4.8); Alkaline Phosphatase 99 U/L (40-110); Anion Gap 15 mmol/L (10-20); BUN (Urea Nitrogen) 20 mg/dL (9.8-20.1); Bilirubin, Total 0.3 mg/dL (0.2-1.2); Calc. Creatinine Clearance 0 mL/min (70-130); Calcium 8.6 mg/dL (7.8-10.44); Carbon Dioxide 18 mmol/L (23-31); Chloride 104 mmol/L (98-107); Estimated GFR-MDRD 31; Glucose 106 mg/dL (83-110); Potassium 4.5 mmol/L (3.5-5.1); Protein, Total 6.7 g/dL (6.0-8.3); Sodium 132 mmol/L (136-145)
[2019-07-17] MEDS ORDERED: Norepinephrine 4 MG/4 ML VIAL ONE ×2 (10:36→10:40)
[2019-07-17 11:22] LABS: #Lymphocytes 1.8 thou/uL (1.20-3.40); #Neutrophils 9.8 thou/uL (1.40-6.50); %Basophils 0.3 % (0.0-1.0); %Eosinophils 7.3 % (0.0-10.0); %Lymphocytes 13.3 % (21.0-51.0); %Monocytes 7.1 % (0.0-10.0); Hemoglobin 10.6 g/dL (12.0-16.0); Mean Corpuscular HGB CONC 32.9 g/dL (32.0-36.0); Mean Corpuscular Volume 91.3 fL (78.0-98.0); Mean Platelet Volume 7.2 fL (7.4-10.4); Platelet Count 258 thou/uL (130-400); RBC Distribution Width 14.7 % (11.5-14.5); Red Blood Cell (RBC) Count 3.52 mill/uL (4.20-5.40); White Blood Cell (WBC) Count 13.6 thou/uL (4.8-10.8)
--- NOTE | 2019-07-17 11:28 | RAD ---
XR Chest 1 View Portable HISTORY: Post central line placement. COMPARISON: Exam done earlier today. FINDINGS: A right-sided subclavian line is now present the catheter tip overlies the right atrium. No signs of pneumothorax. Bibasilar lung changes again demonstrated with slight worsening to atelectasis in the right base. IMPRESSION: Placement of right-sided central line, no signs of pneumothorax.
[2019-07-17 12:00] LABS: Actual Bicarbonate (HCO3a) 19.2 mEq/L (22-28); Analyzer IN Cardio ER; Base Excess (BEa) -6.2 mEq/L (-2.0 to +3.0); CO2 Tension 37.8 mmHg (35.0-45.0); Calcium, Ionized 1.13 mmol/L (1.12-1.30); Carboxyhemoglobin (COHb) 0.1 gm% (0.0-3.0); Hemoglobin (Hb) 11.1 g/dL (12.0-16.0); O2 Tension (PaO2) 86.9 mmHg (> 70.0); pH, Arterial 7.32 (7.35-7.45)
[2019-07-17 12:01] LABS: Puncture Site RRA
[2019-07-17] MEDS ORDERED: Hydrocortisone Sod Succ/PF 100 mg/2 ml Vial IVP SCH (12:15)
[2019-07-17] MEDS ORDERED: Hydrocortisone Sod Succ/PF 100 mg/2 ml Vial ONE ×3 (12:43→12:54)
[2019-07-17] MEDS ORDERED: Norepinephrine 8 MG/0.9% NS 250 ML IVPB PRN (13:32)
[2019-07-17] MEDS ORDERED: Norepinephrine 8 MG in Dextrose 5% in Water 242 ML IVPB PRN (13:44)
[2019-07-17 14:12] LABS: Fibrinogen 377 mg/dL (253-463); INR-International Normal Ratio 1.2; Prothrombin Time 15.5 SEC (12.0-14.7)
[2019-07-17 14:13] LABS: D-Dimer Test 1.07 *mcg/mL (0.27-0.43); PTT 44.6 SEC (22.9-36.1)
[2019-07-17 14:18] LABS: Platelet Count 240 thou/uL (130-400)
[2019-07-17 14:33] LABS: FSP-Qualitative Normal (Normal)
[2019-07-17] MEDS: MEROPENEM 1 GM/50 ML 1 GM in Premix Bag 1 BAG IVPB SCH ×2 (14:44→20:38)
[2019-07-17] MEDS: Sodium Chloride 0.9% 1,000 ML IV SCH ×2 (14:46→22:48)
--- NOTE | 2019-07-17 14:58 | HP ---
REASON FOR ADMISSION: Septic shock and acute metabolic encephalopathy. HISTORY OF PRESENTING ILLNESS: Please note majority of this history is obtained by talking to the patient's daughter, who is here at bedside; ER physician, Dr. Robert Alonzo; and prior records as the patient is fully obtunded at present. Per daughter, the patient developed a fever of 101.3. She was actually feeling very poorly yesterday and was lethargic/drowsy. She in fact had a temperature of 95 degrees yesterday. This morning, they could not wake her up and she was coughing as well. She ate a bit of dinner last night. From then on, she has not been arousable. She was recently discharged on the with Omnicef. She had a followup appointment and home visit by Ms. Sheyla Lazo, Nurse practitioner for Dr. Deepak Ricardo. The patient also has [facility] and they have visited her too after discharge. The patient did not complain of any chest pain, palpitations, or urinary symptoms including frequency or urgency. She has had progressive swelling of her lower extremities. PAST MEDICAL AND SURGICAL HISTORY: Multiple hospitalization including last one being discharged on the July 09. Hypothyroidism, chronic deconditioning with bedbound status, dyslipidemia, cholecystectomy, appendectomy, hysterectomy, prior spine surgery, likely chronic atelectasis of lower lobes, chronic anemia, hypertension, depression, anxiety, and GERD. CURRENT MEDICATIONS: The patient was discharged on; 1. Xanax 0.25 mg p.o. at bedtime. 2. Vitamin C 500 mg p.o. daily. 3. Lipitor 10 mg p.o. at bedtime. 4. Budesonide nebulizer twice daily. 5. Vitamin D3 of 200 units p.o. daily. 6. Nexium 40 mg daily. 7. Fluoxetine 20 mg daily. 8. Lasix 20 mg p.r.n. 9. Gabapentin 600 mg twice daily. 10. Sledge p.r.n. for pain. 11. Synthroid 125 mcg p.o. daily. 12. Lopressor 25 mg twice daily. 13. Multivitamin one tablet daily. 14. Oxybutynin extended release 10 mg p.o. daily. 15. Potassium chloride 10 mEq p.o. daily. 16. Valsartan 320 mg p.o. daily. 17. Zantac 75 mg p.o. at bedtime. 18. Omnicef 600 mg p.o. daily for total of 12 days, which was prescribed on the of last month. 19. Mucinex 600 mg twice daily. 20. Florastor 250 mg p.o. daily. ALLERGIES: TO AMOXICILLIN, CIPROFLOXACIN, CLAVULANIC ACID, CLINDAMYCIN, ERYTHROMYCIN, LATEX, RUBBER, METOLAZONE, NALBUPHINE, OXYCODONE, SULFA, TRIMETHOPRIM, ZOLPIDEM, ULTRAM, AND FENTANYL. PERSONAL HISTORY: Does not abuse alcohol or drugs. Lives with her . She usually helps with transferring to wheelchair. FAMILY HISTORY: Father has had history of coronary artery disease in his 60s. CODE STATUS: Do not attempt to resuscitate. This was discussed with the patient's daughter, who is here at bedside, Ms. Patsy Chirinos. REVIEW OF SYSTEMS: Cannot be ascertained as the patient is fully obtunded at present. PHYSICAL EXAMINATION: VITAL SIGNS: Blood pressure 80/60, pulse 100 per minute, respiratory rate 18 per minute, temperature 99.8 degrees and around 9:36 a.m. the patient had a temperature of 102.7 rectal, and saturating 100% on 4 L nasal cannula. Respiratory rate is 20 per minute. NECK: Supple. No elevated JVD. HEENT: Eyes, pupils are 3 mm and sluggishly reacting to light. Oral cavity, mucous membranes are dry. No exudates or congestion. CARDIOVASCULAR SYSTEM: S1 and S2 heard. Regular rhythm. RESPIRATORY: Air entry 1+ bilateral. Scattered rhonchi plus no rales or wheezes. ABDOMEN: Soft. Bowel sounds heard. No tenderness, rigidity, or guarding. EXTREMITIES: There is 2+ peripheral edema. No calf tenderness. VASCULAR SYSTEM: Peripheral pulses 1+ in the upper extremities and lower extremities, it is barely palpable. No ischemic ulcers or gangrene noted. CENTRAL NERVOUS SYSTEM: The patient is not seen moving any extremities at present as she is fully obtunded at present with flaccid extremities. PSYCHIATRIC: Cannot be assessed due to the patient being obtunded. LABORATORY DATA: White count of 13, H and H 10 and 32, platelet count 258, and MCV is 91 with 72% neutrophils. Blood gas done shows a pH of 7.32, pCO2 of 37, and pO2 of 86. Serum bicarb is 18, BUN 20, creatinine 1.6, lactic acid 1.3, and serum glucose 106. BNP 497. Liver enzymes within normal limits. Albumin is 3.7. First set of cardiac enzymes are negative. UA shows moderate leukocyte esterase with 1+ budding yeast. Chest x-ray shows diminished lung volumes due to poor inspiratory effort. EKG shows sinus rhythm at 81 beats per minute. It is a poor quality EKG. CLINICAL IMPRESSION AND PLAN: The patient will be admitted to ICU for septic shock. This has been recurring. She was recently in sepsis just two weeks back and was on broad-spectrum antibiotics and was sent home on Omnicef for nearly 12 days. She is still currently on Omnicef. Blood and urine cultures have been obtained. She will be given a total of 3 L of IV fluids. She was started on Levophed in the ER, which is on a low-dose. She is currently receiving her third liter of IV fluid in the ER when I examined her. We will place her on meropenem and vancomycin due to multiple allergies and recurrent episodes of sepsis. It is possible some of the medications might be tipping her for acute metabolic encephalopathy. She will be on DuoNeb q.6 hourly, budesonide nebulization. We will continue her Synthroid and fluoxetine along with Pepcid IV q.12. We will consult Dr. Burks for Infectious Disease and Dr. Hook for Pulmonology. I have confirmed her do not attempt to resuscitate status with her daughter, who is here at bedside. Job ID: [id number] [id number]
[2019-07-17] MEDS: Budesonide 0.25 MG/2 ML NEB INH SCH (18:35)
[2019-07-17] MEDS: methylPREDNISolone Sod Succ 40 MG VIAL IVP SCH (20:38)
[2019-07-17] MEDS ORDERED: Vancomycin HCl 1 GM in Sodium Chloride 0.9% 250 ML 250 ML IVPB SCH (21:00)
[2019-07-17] MEDS ORDERED: Famotidine/PF 20 mg/2ml Vial SLOW IVP SCH (21:00)
--- NOTE | 2019-07-17 21:19 | CON ---
DATE OF CONSULTATION: HISTORY OF PRESENT ILLNESS: This is a 79-year-old female with multiple hospital admissions, was readmitted to the hospital with altered mental status and fever apparently up to 102. Chest x-ray shows chronic left-sided atelectatic changes. She was transferred to the ICU on Levophed. She was given volume to which she has resuscitated. She is still lethargic. Blood pressure is 120 systolic. PAST MEDICAL HISTORY: Recurrent respiratory failure, obesity hypoventilation syndrome, recurrent atelectasis, hypothyroidism, asthma, COPD, hypertension, renal failure, dysphagia, chronic atrial fibrillation. PAST SURGICAL HISTORY: Gallbladder, hysterectomy, back surgery, previous bronchoscopies. ALLERGIES: MULTIPLE; BACTRIM, SULFA, CLINDAMYCIN, ERYTHROMYCIN. REVIEW OF SYSTEMS: Otherwise 10-point negative. PHYSICAL EXAMINATION: VITAL SIGNS: Blood pressure 120/80, pulse 80, respiratory rate 18, saturations 95%. CHEST: Decreased breath sounds. No wheezing. CARDIAC: Normal S1, S2. No gallops. ABDOMEN: No mass. IMAGING: X-ray as noted, left-sided infiltrate. IMPRESSION: Recurrent aspiration, morbid obesity, sleep apnea, hypoventilation syndrome, azotemia. PLAN: I have added neb treatments to present regime, low-dose steroids. Supportive care. She is on broad-spectrum antibiotics. We will deescalate once she has the cultures back. Job ID: [id number]
--- NOTE | 2019-07-17 22:04 | CON ---
DATE OF CONSULTATION: 07/17/2019 REASON FOR CONSULTATION: Hypotension. HISTORY OF PRESENT ILLNESS: This is a 79-year-old, who was just recently discharged from the hospital. She has a history of recurrent respiratory tract infections associated with broncho-tracheomalacia. She also has one episode of invasive UTI and C difficile in the past and was treated for respiratory tract infection in June and discharged. A CT of chest at that time showed mediastinal lymphadenopathy and opacification of bilateral lower lobe bronchi with postobstructive atelectasis and narrowing of the central bronchi with hypodensity in the left central bronchus. Microbiology studies included positive urine culture for Klebsiella pneumoniae, which had a broad susceptibility profile; 2 negative sets of blood cultures, none. She was discharged on Omnicef and inhalers and then never really got back to her baseline. She has previously noticed that she is bedridden, and at home, she developed a change in mental status and worsening cough. Temperature 102. She had some diarrhea noted as well. The initial findings included pulse of 88, blood pressure of 128/56, temperature initially of 99.8 and then 102.7. She became hypotensive, had to be given IV fluids and pressors, and was transferred to the ICU. Right now, she is obtunded. She will not interact with the examiner and does not move extremities. She has a do not resuscitate advance directive. MEDICAL HISTORY: Broncho-tracheomalacia, recurrent episodes of respiratory tract infection, GERD, hyperlipidemia, hypertension, episode of C difficile in the past, and urinary tract infections. SOCIAL HISTORY: She lives at home with family with home health. No smoking history. ALLERGIES: BACTRIM, CLINDAMYCIN, ERYTHROMYCIN, FENTANYL, LATEX, METOLAZONE, NALBUPHINE, OXYCODONE, SULFA DRUGS, AND TRAMADOL. CURRENT MEDS: 1. Tylenol. 2. DuoNeb. 3. Pulmicort. 4. Lovenox. 5. Pepcid. 6. Prozac. 7. Synthroid. 8. Meropenem. 9. Methylprednisolone. 10. Levophed, which has been discontinued. 11. Vancomycin. PHYSICAL EXAMINATION: VITAL SIGNS: T-max 98.7, blood pressure 130/70, pulse 82, respirations 20, and O2 sat 95. GENERAL: She appears obtunded, labored breathing. She has a face mask. HEENT: The patient's eye movements appear conjugate, but she does not establish eye contact. Conjunctivae are somewhat pale. NECK: No jugular venous distention. LUNGS: Coarse breath sounds, but no obvious crackles and no wheezing. HEART: S1 and S2, regular rate. No S3 or S4. ABDOMEN: Soft, not distended or tender. No ascites. No bladder distention. MUSCULOSKELETAL: No joint inflammatory activity. She has deformities in lower extremities, which are chronic. 1+ edema in lower extremities. She is not able to reply to questions or follow commands. LABORATORY DATA: White cell count 13.6, hemoglobin 10.6, and platelets 258. INR 1.2. pH of 7.32, pCO2 of 37, and pO2 of 86. Sodium 132 and creatinine 1.62, which is higher than her baseline of 0.97. Liver profile normal. Ammonia was 21. CRP 2.33. BNP 497. Albumin 3.7. Urinalysis with normal findings except for moderate leukocyte esterase, but the urine wbc's 0 to 3 only. ASSESSMENT: Broncho-tracheomalacia, recurrent respiratory tract infections with the most recent one in June, treated with broad-spectrum antimicrobial therapy, now with some diarrhea, fever and hypotension. DISCUSSION: Differential diagnosis includes recrudescence of the respiratory tract infection due to the transition to the oral agent which might not have covered the organism that was causing the initial, original infection treated in June. The alternate possibility would be a separate process that has been established de brandi after the recent admission, such as C difficile colitis or urinary tract infection. Thromboembolism is always a concern since she is mobility impaired. Continue broad spectrum coverage and supportive care. She has a do not resuscitate order, and depending on clinical progress, Palliative Care may have to be consulted. She has diarrhea, we will need to submit for C difficile testing. Job ID: [id number]
[2019-07-17] MEDS: Acetaminophen 325 MG TAB PO PRN (23:34)
[2019-07-18] MEDS: Acetaminophen 325 MG TAB PO PRN (05:11)
[2019-07-18] MEDS: Levothyroxine Sodium 125 MCG TAB PO SCH (05:11)
[2019-07-18] MEDS: MEROPENEM 1 GM/50 ML 1 GM in Premix Bag 1 BAG IVPB SCH ×3 (05:11→22:09)
[2019-07-18 05:28] LABS: #Lymphocytes 1.1 thou/uL (1.20-3.40); #Monocytes 0.1 thou/uL (0.11-0.59); #Neutrophils 9.1 thou/uL (1.40-6.50); %Basophils 0.1 % (0.0-1.0); %Eosinophils 0.3 % (0.0-10.0); %Lymphocytes 10.8 % (21.0-51.0); %Monocytes 0.9 % (0.0-10.0); %Neutrophils 87.9 % (42.0-75.0); Hemoglobin 11.8 g/dL (12.0-16.0); Mean Corpuscular HGB CONC 33.3 g/dL (32.0-36.0); Mean Corpuscular Hemoglobin 30.6 pg (27.0-31.0); Mean Corpuscular Volume 91.7 fL (78.0-98.0); Mean Platelet Volume 7.8 fL (7.4-10.4); Platelet Count 280 thou/uL (130-400); RBC Distribution Width 14.7 % (11.5-14.5); Red Blood Cell (RBC) Count 3.85 mill/uL (4.20-5.40); White Blood Cell (WBC) Count 10.3 thou/uL (4.8-10.8)
[2019-07-18 05:40] LABS: Anion Gap 13 mmol/L (10-20); BUN (Urea Nitrogen) 15 mg/dL (9.8-20.1); Calc. Creatinine Clearance 64 mL/min (70-130); Calcium 8.6 mg/dL (7.8-10.44); Carbon Dioxide 19 mmol/L (23-31); Chloride 110 mmol/L (98-107); Estimated GFR-MDRD 49; Glucose 178 mg/dL (83-110); Potassium 3.6 mmol/L (3.5-5.1); Sodium 138 mmol/L (136-145)
[2019-07-18] MEDS: Budesonide 0.25 MG/2 ML NEB INH SCH ×2 (07:40→18:30)
[2019-07-18] MEDS: Diltiazem HCl 125 MG, Admixture Fee 1 EACH in Sodium Chloride 0.9% 100 ML IVPB SCH ×2 (08:04→22:08)
[2019-07-18] MEDS: Enoxaparin Sodium 40 MG/0.4 ML SYRINGE SC SCH (08:15)
[2019-07-18] MEDS: FLUoxetine HCl 20 MG CAP PO SCH (08:16)
[2019-07-18] MEDS: methylPREDNISolone Sod Succ 40 MG VIAL IVP SCH (08:17)
--- NOTE | 2019-07-18 09:29 | PRG ---
DATE OF SERVICE: 07/18/2019 SUBJECTIVE: This morning, she is still more awake, more responsive. OBJECTIVE: VITAL SIGNS: Pulse 102, respiratory rate 24, saturations 100% on nasal O2, and blood pressure 140/80. CHEST: Bilateral rhonchi or crackles. CARDIAC: Normal S1 and S2. No gallops. ABDOMEN: Soft. ASSESSMENT: Recurrent aspiration, left-sided pneumonia, encephalopathy, essentially paraplegia, severe deconditioning. PLAN: Continue broad-spectrum antibiotics. Adjust post culture. PT supportive care. We will follow. Job ID: [id number]
[2019-07-18] MEDS: Sodium Chloride 0.9% 1,000 ML IV SCH ×2 (10:07→21:13)
[2019-07-18] MEDS ORDERED: Vancomycin HCl 1.5 GM in Sodium Chloride 0.9% 250 ML 300 ML IVPB SCH (11:00)
[2019-07-18] MEDS ORDERED: Acetaminophen 650 MG Suppository PR PRN (12:37)
[2019-07-18] MEDS ORDERED: Acetaminophen 500 MG TAB PO PRN (12:38)
[2019-07-18] MEDS ORDERED: Acetaminophen 1,000 MG in Premix Bag 1 BAG IVPB PRN (13:08)
--- NOTE | 2019-07-18 15:31 | PRG ---
DATE OF SERVICE: 07/18/2019 SUBJECTIVE: A bit more alert today. She establishes eye contact and tries to talk. She is still trembling and appears quite weak. OBJECTIVE: VITAL SIGNS: Temperature has been normal. Other vital signs showed normal blood pressure, off pressors, O2 saturation 97. GENERAL: Awake. Follows commands. LUNGS: With diminished breath sounds at bases. HEART: S1 and S2. Diminished heart sounds. ABDOMEN: Soft. Not distended or tender. Soft stool, but not diarrhea. LABORATORY DATA: White cell count 10.3, hemoglobin 11.8, platelets 280. Sodium 138, creatinine 1.08. Urine culture with yeast. Two sets of blood culture, no growth thus far. ASSESSMENT AND DISCUSSION: Tracheobronchomalacia, recurrent respiratory infections, now with sepsis, which has improved with and broad-spectrum antimicrobial coverage. The patient is currently on meropenem, methylprednisolone, vancomycin to be continued. She has developed atrial fibrillation and has been managed with diltiazem. Job ID: [id number]
--- NOTE | 2019-07-18 16:29 | PRG ---
DATE OF SERVICE: 07/18/2019 SUBJECTIVE: The patient is seen and examined at the bedside. There is the patient's sister present in the room during my visit. The patient is able to talk to me in short sentences. She appears sick and tired. OBJECTIVE: VITAL SIGNS: Blood pressure is 130/61, heart rate is 87, respiratory rate is 26 to 30, and O2 saturation is 97%. GENERAL: She follows my commands. HEENT: Her sclerae are nonicteric. Conjunctivae palish. Oral mucosa is somewhat dry. NECK: Supple. LUNGS: Breath sounds diminished at both bases with rales bilaterally at both bases. Few wheezes present. HEART: S1 and S2. Tachycardic. Irregularly irregular. No S3. No S4. ABDOMEN: Soft, obese, nontender, nondistended. EXTREMITIES: 1+ peripheral edema similar bilateral on both lower extremities. NEUROLOGICAL: She tries to follow my commands. She does not remember where she lives. LABORATORY DATA: White count of 10.3, hemoglobin 11.8, hematocrit 35.3, platelet count 280,000. Sodium 138, potassium 3.6, chloride 110, CO2 of 19, BUN 15, creatinine 1.08, calcium 8.6. Lactic acid 0.6, C-reactive protein 2.33. Microbiology, two blood cultures done are negative. No growth so far. Urine culture 10 to 25,000 colonies of yeasts. IMPRESSION: 1. Recurrent aspiration pneumonia. 2. Septic shock. 3. Broncho tracheomalacia with recurrent episodes of respiratory tract infection. 4. Hyperlipidemia. 5. Hypertension. 6. History of Clostridium difficile colitis. 7. History of urinary tract infections. 8. Gastroesophageal reflux disease. 9. Atrial fibrillation with rapid ventricular response. PLAN: The plan is to continue her antibiotics, which are vancomycin and meropenem. Continue diltiazem drip. Continue DuoNeb's. Continue inhaled steroids. Continue Solu-Medrol 40 mg IV push twice a day. Continue O2 supplementation. Job ID: [id number]
[2019-07-18] MEDS ORDERED: Non-Formulary Item 1 EACH (Gabapentin [Gabapentin] 600 MG) PO SCH (19:15)
[2019-07-18] MEDS ORDERED: Gabapentin 400 MG CAP PO SCH (21:00)
[2019-07-18] MEDS: Famotidine/PF 20 mg/2ml Vial SLOW IVP SCH (21:12)
[2019-07-18] MEDS ORDERED: Gabapentin 300 MG CAP PO SCH (22:30)
[2019-07-19] MEDS: Levothyroxine Sodium 125 MCG TAB PO SCH (05:38)
[2019-07-19] MEDS: MEROPENEM 1 GM/50 ML 1 GM in Premix Bag 1 BAG IVPB SCH (05:38)
[2019-07-19] MEDS: Sodium Chloride 0.9% 1,000 ML IV SCH ×2 (05:39→15:29)
[2019-07-19] MEDS: Budesonide 0.25 MG/2 ML NEB INH SCH ×2 (07:32→18:48)
[2019-07-19] MEDS: Diltiazem HCl 125 MG, Admixture Fee 1 EACH in Sodium Chloride 0.9% 100 ML IVPB SCH ×2 (07:48→23:52)
[2019-07-19] MEDS: Ondansetron PF 4 MG/2 ML Vial IVP PRN ×2 (09:08→19:40)
[2019-07-19] MEDS: FLUoxetine HCl 20 MG CAP PO SCH (09:09)
[2019-07-19] MEDS: Enoxaparin Sodium 40 MG/0.4 ML SYRINGE SC SCH (09:09)
[2019-07-19] MEDS: Gabapentin 300 MG CAP PO SCH ×2 (09:09→21:12)
--- NOTE | 2019-07-19 09:26 | PRG ---
DATE OF SERVICE: 07/19/2019 SUBJECTIVE: This morning, she is more responsive, awake, alert, and responsive. I doubt she has recurrent pneumonia. Cultures are negative. I suggest we deescalate antibiotics. OBJECTIVE: VITAL SIGNS: Temperature 98, saturations 98% on 3 L, and respiratory rate 18. CHEST: Decreased breath sounds. Minimal wheezing. CARDIAC: Normal S1 and S2. No gallops. ABDOMEN: No masses. ASSESSMENT AND PLAN: Presumed pneumonia, aspiration, so far all cultures negative. Switch over to oral antibiotics. Otherwise, supportive care and PT. She will be transferred out of the ICU. She is a DNR. Job ID: [id number]
[2019-07-19] MEDS: Cefdinir 300 MG CAP PO SCH ×2 (10:00→21:11)
--- NOTE | 2019-07-19 10:39 | RAD ---
PORTABLE CHEST ONE VIEW: HISTORY: Follow up pneumonia. COMPARISON: 07/17/2019 FINDINGS: Cardiomegaly with bilateral vascular congestion and some patchy, mostly interstitial type parenchymal changes, primarily in the perihilar regions and lower lung zones, overall stable. IMPRESSION: Stable congestion and increased markings. Continue short term followup for clearing or stability. POS: ANGELA
[2019-07-19 10:42] LABS: Vancomycin, Trough 13.4 ug/mL
[2019-07-19] MEDS ORDERED: Gabapentin 400 MG CAP PO SCH (12:00)
[2019-07-19] MEDS: methylPREDNISolone Sod Succ 40 MG VIAL IVP SCH (15:26)
--- NOTE | 2019-07-19 16:13 | PDOC.HOSPP ---
- Subjective Subjective: Seen and examined in the intensive care unit. Patient alert to self, location, city, though she is not alert to situation or time. Patient did have episode of upset stomach and vomited her a.m. medicines. Improved now with Zofran. No other complaints at this time. Patient very weak and frail. - Objective Vital Signs & Weight: Vital Signs (12 hours) Temp Pulse Resp Pulse Ox 07/19/19 14:33 88 30 H 94 L 07/19/19 12:00 99.8 F H 07/19/19 08:00 98.5 F 07/19/19 07:52 98 07/19/19 07:35 98 07/19/19 07:32 92 28 H 96 Weight Admit Weight 210 lb 5.136 oz Weight 210 lb 5.136 oz Most Recent Monitor Data Heart Rate from ECG 91 NIBP 156/64 NIBP BP-Mean 94 Respiration from ECG 30 SpO2 95 I&O: 07/18/19 07/19/19 07/20/19 06:59 06:59 06:59 Intake Total 619 1706 2603 Output Total 2200 3000 1120 Balance -1581 -1294 1483 Result Diagrams: 07/18/19 04:00 07/18/19 04:00 Radiology Reviewed by me: Yes (CXR) Hospitalist ROS - Review of Systems All other systems reviewed; all pertinent +/- noted in HPI/Subj - Medication Medications: Active Medications Generic Name Dose Route Start Last Admin Trade Name Freq PRN Reason Stop Dose Admin Albuterol/Ipratropium 3 ml 07/19/19 13:00 07/19/19 14:33 Duoneb NEB 3 ml [id number] JERMAINE Administration Budesonide 0.5 mg 07/17/19 18:30 07/19/19 07:32 Pulmicort Neb Solution INH 0.5 mg BID-RT JERMAINE Administration Cefdinir 300 mg 07/19/19 09:00 07/19/19 10:00 Omnicef PO 07/24/19 09:01 Not Given BID JERMAINE Enoxaparin Sodium 40 mg 07/18/19 09:00 07/19/19 09:09 Lovenox SC 40 mg 0900 JERMAINE Administration Famotidine 20 mg 07/18/19 21:00 07/18/19 21:12 Pepcid SLOW IVP 20 mg QPM JERMAINE Administration Fluoxetine HCl 20 mg 07/18/19 09:00 07/19/19 09:09 Prozac PO 20 mg DAILY JERMAINE Administration Gabapentin 600 mg 07/19/19 09:00 07/19/19 09:09 Neurontin PO 600 mg BID JERMAINE Administration Sodium Chloride 1,000 mls @ 100 mls/hr 07/17/19 13:32 07/19/19 15:29 Normal Saline 0.9% IV 1,000 mls .Q10H JERMAINE Administration Diltiazem HCl 125 mg/ 125 mls @ 0 mls/hr 07/18/19 07:00 07/19/19 07:48 Miscellaneous Medication 1 IVPB 125 mls each/ Sodium Chloride INF JERMAINE Administration Protocol As Directed Levothyroxine Sodium 125 mcg 07/18/19 06:00 07/19/19 05:38 Synthroid PO 125 mcg 0600 JERMAINE Administration Methylprednisolone Sodium Succinate 40 mg 07/19/19 09:00 07/19/19 15:26 Solu-Medrol IVP 40 mg DAILY JERMAINE Administration Ondansetron HCl 4 mg 07/17/19 13:32 07/19/19 09:08 Zofran IVP 4 mg Q6H PRN Administration Nausea/Vomiting - Exam General Appearance: NAD, awake alert Eye: anicteric sclera ENT: normocephalic atraumatic, moist mucosa Neck: supple, no lymphadenopathy Heart: no murmur, no gallops, no rubs Respiratory: no wheezes, no ronchi, normal chest expansion, no tachypnea, rales Gastrointestinal: soft, non-tender, non-distended, no guarding, no rigidity Extremities: 1+ LE edema Skin: no lesions, no rashes Neurological: cranial nerve grossly intact, no focal deficits Musculoskeletal: generalized weakness Psychiatric: oriented to person, oriented to place, flat affect. negative: oriented to time Hosp A/P (1) Acute respiratory failure with hypoxia Code(s): J96.01 - ACUTE RESPIRATORY FAILURE WITH HYPOXIA Status: Acute (2) Bilateral pleural effusion Code(s): J90 - PLEURAL EFFUSION, NOT ELSEWHERE CLASSIFIED Status: Acute (3) Fever Code(s): R50.9 - FEVER, UNSPECIFIED Status: Resolved (4) Hyponatremia Code(s): E87.1 - HYPO-OSMOLALITY AND HYPONATREMIA Status: Chronic (5) PNA (pneumonia) Code(s): J18.9 - PNEUMONIA, UNSPECIFIED ORGANISM Status: Acute Qualifiers: Pneumonia type: due to unspecified organism Laterality: bilateral Lung location: lower lobe of lung Qualified Code(s): J18.1 - Lobar pneumonia, unspecified organism (6) SOB (shortness of breath) Code(s): R06.02 - SHORTNESS OF BREATH Status: Acute (7) Tracheomalacia Code(s): J39.8 - OTHER SPECIFIED DISEASES OF UPPER RESPIRATORY TRACT Status: Acute (8) UTI (urinary tract infection) Status: Acute Qualifiers: Urinary tract infection type: acute cystitis Hematuria presence: without hematuria Qualified Code(s): N30.00 - Acute cystitis without hematuria (9) Urinary incontinence Code(s): R32 - UNSPECIFIED URINARY INCONTINENCE Status: Acute (10) Afib Code(s): I48.91 - UNSPECIFIED ATRIAL FIBRILLATION Status: Chronic Qualifiers: Atrial fibrillation type: paroxysmal Qualified Code(s): I48.0 - Paroxysmal atrial fibrillation (11) Anxiety and depression Code(s): F41.8 - OTHER SPECIFIED ANXIETY DISORDERS Status: Chronic (12) COPD (chronic obstructive pulmonary disease) Status: Chronic Qualifiers: COPD type: chronic bronchitis (13) Chronic low back pain Code(s): M54.5 - LOW BACK PAIN; G89.29 - OTHER CHRONIC PAIN Status: Chronic (14) GERD (gastroesophageal reflux disease) Code(s): K21.9 - GASTRO-ESOPHAGEAL REFLUX DISEASE WITHOUT ESOPHAGITIS Status: Chronic Qualifiers: Esophagitis presence: without esophagitis (15) Hypertension Code(s): I10 - ESSENTIAL (PRIMARY) HYPERTENSION Status: Chronic Qualifiers: (16) Hypothyroidism Code(s): E03.9 - HYPOTHYROIDISM, UNSPECIFIED Status: Chronic Qualifiers: Hypothyroidism type: unspecified Qualified Code(s): E03.9 - Hypothyroidism , unspecified (17) Obesity (BMI 30-39.9) Code(s): E66.9 - OBESITY, UNSPECIFIED Status: Chronic (18) Physical deconditioning Code(s): R53.81 - OTHER MALAISE Status: Chronic (19) Sepsis Code(s): A41.9 - SEPSIS, UNSPECIFIED ORGANISM Status: Suspected Qualifiers: Sepsis type: sepsis due to unspecified organism Sepsis acute organ dysfunction status: with acute organ dysfunction Severe sepsis acute organ dysfunction type: acute renal failure Severe sepsis shock status: without septic shock (20) Acute kidney injury Code(s): N17.9 - ACUTE KIDNEY FAILURE, UNSPECIFIED Status: Resolved (21) Metabolic acidosis Code(s): E87.2 - ACIDOSIS Status: Resolved (22) Pneumonia Code(s): J18.9 - PNEUMONIA, UNSPECIFIED ORGANISM Status: Ruled-out - Plan Plan: intensive care unit, pending downgraded pulmonology consultation, recommendations a patient next line cardiology consultation, recommendations appreciated patient being transition from IV antibiotics to oral antibiotics rate control patient chronically ill and debilitated will need physical therapy and occupational therapy evaluation and treatment rehabilitation will most definitely be needed for this patient
[2019-07-19] MEDS: Acetaminophen 500 MG TAB PO PRN (21:12)
[2019-07-19] MEDS: Famotidine/PF 20 mg/2ml Vial SLOW IVP SCH (21:12)
[2019-07-20] MEDS: Sodium Chloride 0.9% 1,000 ML IV SCH ×3 (05:39→20:26)
[2019-07-20] MEDS: Levothyroxine Sodium 125 MCG TAB PO SCH (05:59)
[2019-07-20] MEDS: Budesonide 0.25 MG/2 ML NEB INH SCH ×2 (07:14→20:43)
--- NOTE | 2019-07-20 08:48 | PRG ---
DATE OF SERVICE: 07/20/2019 SUBJECTIVE: Cecilia Santizo this morning is more awake, responsive. OBJECTIVE: VITAL SIGNS: Pulse 100, saturations are 94% on 3 L, blood pressure 156/83, and respirations 18. CHEST: Decreased breath sounds. No wheezing. CARDIAC: Normal S1 and S2. No gallops. ABDOMEN: No masses. IMPRESSION: 1. Presumed aspiration pneumonia. 2. Encephalopathy. 3. Supraventricular tachycardia. PLAN: She can probably be switched over to oral medication and transferred out of the ICU. Switch over to oral prednisone tomorrow. Job ID: [id number]
[2019-07-20] MEDS: Enoxaparin Sodium 40 MG/0.4 ML SYRINGE SC SCH (08:58)
[2019-07-20] MEDS: methylPREDNISolone Sod Succ 40 MG VIAL IVP SCH (08:58)
[2019-07-20] MEDS: Cefdinir 300 MG CAP PO SCH ×2 (08:59→20:24)
[2019-07-20] MEDS: Gabapentin 300 MG CAP PO SCH ×2 (08:59→20:24)
[2019-07-20] MEDS: FLUoxetine HCl 20 MG CAP PO SCH (08:59)
[2019-07-20] MEDS: FLU VACC TS2019-20(65YR UP)/PF 180 MCG/0.5 ML SYRINGE IM ONE (09:10)
[2019-07-20 11:12] LABS: #Basophils 0.1 thou/uL (0.0-0.2); #Lymphocytes 1.3 thou/uL (1.20-3.40); #Monocytes 1.2 thou/uL (0.11-0.59); #Neutrophils 9.1 thou/uL (1.40-6.50); %Basophils 0.4 % (0.0-1.0); %Eosinophils 0.3 % (0.0-10.0); %Lymphocytes 11.3 % (21.0-51.0); %Monocytes 10.3 % (0.0-10.0); %Neutrophils 77.7 % (42.0-75.0); Hemoglobin 10.4 g/dL (12.0-16.0); Mean Corpuscular HGB CONC 33.3 g/dL (32.0-36.0); Mean Corpuscular Hemoglobin 30.5 pg (27.0-31.0); Mean Corpuscular Volume 91.4 fL (78.0-98.0); Mean Platelet Volume 7.1 fL (7.4-10.4); Platelet Count 258 thou/uL (130-400); RBC Distribution Width 15.5 % (11.5-14.5); White Blood Cell (WBC) Count 11.7 thou/uL (4.8-10.8)
[2019-07-20 11:42] LABS: Anion Gap 12 mmol/L (10-20); BUN (Urea Nitrogen) 11 mg/dL (9.8-20.1); Calc. Creatinine Clearance 75 mL/min (70-130); Calcium 8.5 mg/dL (7.8-10.44); Carbon Dioxide 21 mmol/L (23-31); Chloride 114 mmol/L (98-107); Estimated GFR-MDRD 60; Glucose 144 mg/dL (83-110); Potassium 3.3 mmol/L (3.5-5.1); Sodium 144 mmol/L (136-145)
--- NOTE | 2019-07-20 16:26 | PDOC.HOSPP ---
- Subjective Subjective: Seen and examined. Family at bedside, questions are asked, all answered in detail. Discuss case with speech therapy for recommending ice chips and modified barium swallow tomorrow. Patient is overall clinically improving on maximal medical therapy. Mentation she is alert and oriented times three and has good insight into clinical condition. Patient's mentation has even improved since yesterday. - Objective Vital Signs & Weight: Vital Signs (12 hours) Temp Pulse Resp Pulse Ox 07/20/19 13:43 96 19 99 07/20/19 12:00 98.9 F 07/20/19 08:00 100.3 F H 97 07/20/19 07:14 94 L 07/20/19 07:12 100 25 H 94 L 07/20/19 07:00 100.3 F H Weight Admit Weight 210 lb 5.136 oz Weight 210 lb 5.136 oz Most Recent Monitor Data Heart Rate from ECG 82 NIBP 138/69 NIBP BP-Mean 92 Respiration from ECG 21 SpO2 92 I&O: 07/19/19 07/20/19 07/21/19 06:59 06:59 06:59 Intake Total 1706 5428.2 150 Output Total 3000 2130 1050 Balance -1294 3298.2 -900 Result Diagrams: 07/20/19 11:00 07/20/19 11:00 Radiology Reviewed by me: Yes (CXR) Hospitalist ROS - Review of Systems All other systems reviewed; all pertinent +/- noted in HPI/Subj - Medication Medications: Active Medications Generic Name Dose Route Start Last Admin Trade Name Freq PRN Reason Stop Dose Admin Acetaminophen 1,000 mg 07/18/19 12:45 07/19/19 21:12 Tylenol PO 1,000 mg Q6H PRN Administration TEMPERATURE >100.3 F Albuterol/Ipratropium 3 ml 07/19/19 13:00 07/20/19 13:43 Duoneb NEB 3 ml [id number] JERMAINE Administration Budesonide 0.5 mg 07/17/19 18:30 07/20/19 07:14 Pulmicort Neb Solution INH 0.5 mg BID-RT JERMAINE Administration Cefdinir 300 mg 07/19/19 09:00 07/20/19 08:59 Omnicef PO 07/24/19 09:01 300 mg BID JERMAINE Administration Enoxaparin Sodium 40 mg 07/18/19 09:00 07/20/19 08:58 Lovenox SC 40 mg 0900 JERMAINE Administration Fluoxetine HCl 20 mg 07/18/19 09:00 07/20/19 08:59 Prozac PO 20 mg DAILY JERMAINE Administration Gabapentin 600 mg 07/19/19 09:00 07/20/19 08:59 Neurontin PO 600 mg BID JERMAINE Administration Sodium Chloride 1,000 mls @ 100 mls/hr 07/17/19 13:32 07/20/19 09:41 Normal Saline 0.9% IV 1,000 mls .Q10H JERMAINE Administration Diltiazem HCl 125 mg/ 125 mls @ 0 mls/hr 07/18/19 07:00 07/19/19 23:52 Miscellaneous Medication 1 IVPB 125 mls each/ Sodium Chloride INF JERMAINE Administration Protocol As Directed Levothyroxine Sodium 125 mcg 07/18/19 06:00 07/20/19 05:59 Synthroid PO 125 mcg 0600 JERMAINE Administration Methylprednisolone Sodium Succinate 40 mg 07/19/19 09:00 07/20/19 08:58 Solu-Medrol IVP 40 mg DAILY JERMAINE Administration Ondansetron HCl 4 mg 07/17/19 13:32 07/19/19 19:40 Zofran IVP 4 mg Q6H PRN Administration Nausea/Vomiting - Exam General Appearance: NAD, awake alert Eye: PERRL, anicteric sclera ENT: normocephalic atraumatic, moist mucosa Neck: supple, symmetric, no lymphadenopathy Heart: no murmur, no gallops, no rubs Respiratory: no rales, normal chest expansion, rhonchi, wheezes Respiratory - other findings: cough with deep breathing Gastrointestinal: soft, non-tender, no guarding, no rigidity Extremities: no cyanosis, 1+ LE edema Skin: no lesions, no rashes Neurological: cranial nerve grossly intact, no focal deficits Musculoskeletal: generalized weakness Psychiatric: normal affect, A&O x 3 Hosp A/P (1) Acute respiratory failure with hypoxia Code(s): J96.01 - ACUTE RESPIRATORY FAILURE WITH HYPOXIA Status: Acute (2) Bilateral pleural effusion Code(s): J90 - PLEURAL EFFUSION, NOT ELSEWHERE CLASSIFIED Status: Acute (3) Fever Code(s): R50.9 - FEVER, UNSPECIFIED Status: Resolved (4) Hyponatremia Code(s): E87.1 - HYPO-OSMOLALITY AND HYPONATREMIA Status: Chronic (5) PNA (pneumonia) Code(s): J18.9 - PNEUMONIA, UNSPECIFIED ORGANISM Status: Acute Qualifiers: Pneumonia type: due to unspecified organism Laterality: bilateral Lung location: lower lobe of lung Qualified Code(s): J18.1 - Lobar pneumonia, unspecified organism (6) SOB (shortness of breath) Code(s): R06.02 - SHORTNESS OF BREATH Status: Acute (7) Tracheomalacia Code(s): J39.8 - OTHER SPECIFIED DISEASES OF UPPER RESPIRATORY TRACT Status: Acute (8) UTI (urinary tract infection) Status: Acute Qualifiers: Urinary tract infection type: acute cystitis Hematuria presence: without hematuria Qualified Code(s): N30.00 - Acute cystitis without hematuria (9) Urinary incontinence Code(s): R32 - UNSPECIFIED URINARY INCONTINENCE Status: Acute (10) Afib Code(s): I48.91 - UNSPECIFIED ATRIAL FIBRILLATION Status: Chronic Qualifiers: Atrial fibrillation type: paroxysmal Qualified Code(s): I48.0 - Paroxysmal atrial fibrillation (11) Anxiety and depression Code(s): F41.8 - OTHER SPECIFIED ANXIETY DISORDERS Status: Chronic (12) COPD (chronic obstructive pulmonary disease) Status: Chronic Qualifiers: COPD type: chronic bronchitis (13) Chronic low back pain Code(s): M54.5 - LOW BACK PAIN; G89.29 - OTHER CHRONIC PAIN Status: Chronic (14) GERD (gastroesophageal reflux disease) Code(s): K21.9 - GASTRO-ESOPHAGEAL REFLUX DISEASE WITHOUT ESOPHAGITIS Status: Chronic Qualifiers: Esophagitis presence: without esophagitis (15) Hypertension Code(s): I10 - ESSENTIAL (PRIMARY) HYPERTENSION Status: Chronic Qualifiers: (16) Hypothyroidism Code(s): E03.9 - HYPOTHYROIDISM, UNSPECIFIED Status: Chronic Qualifiers: Hypothyroidism type: unspecified Qualified Code(s): E03.9 - Hypothyroidism , unspecified (17) Obesity (BMI 30-39.9) Code(s): E66.9 - OBESITY, UNSPECIFIED Status: Chronic (18) Physical deconditioning Code(s): R53.81 - OTHER MALAISE Status: Chronic (19) Sepsis Code(s): A41.9 - SEPSIS, UNSPECIFIED ORGANISM Status: Suspected Qualifiers: Sepsis type: sepsis due to unspecified organism Sepsis acute organ dysfunction status: with acute organ dysfunction Severe sepsis acute organ dysfunction type: acute renal failure Severe sepsis shock status: without septic shock (20) Acute kidney injury Code(s): N17.9 - ACUTE KIDNEY FAILURE, UNSPECIFIED Status: Resolved (21) Metabolic acidosis Code(s): E87.2 - ACIDOSIS Status: Resolved (22) Pneumonia Code(s): J18.9 - PNEUMONIA, UNSPECIFIED ORGANISM Status: Ruled-out - Plan Plan: intensive care unit, pending downgraded pulmonology consultation, recommendations appreciated cardiology consultation, recommendations appreciated ID consultation, recommendations appreciated Speech therapy consultation, recommendations appreciated ABX per ID patient transitioned from IV antibiotics to oral antibiotics - now with low grad fevers - query if cephalosporins have adequate coverage for aspiration PNA rate control agree with ice chips for now and MBS tomorrow per Speech therapy will need physical therapy and occupational therapy evaluation and treatment rehabilitation will most definitely be needed for this patient
--- NOTE | 2019-07-20 18:39 | CON ---
DATE OF CONSULTATION: 07/20/2019 REASON FOR CONSULTATION: Atrial fibrillation. PRIMARY CHILD SUPPORT OFFICER: Dr. Aly Lino. HISTORY OF PRESENT ILLNESS: Ms. Santizo is a delightful 79-year-old woman. She has a history of paroxysmal tachycardia. She was admitted to the hospital with confusion and disorientation and likely has an infectious process, which is being treated, thus confusion has improved and she is feeling better from that standpoint. She did have an episode of atrial fibrillation earlier. She is on intravenous Cardizem. She is now in sinus rhythm. No chest pain or pressure. She has a history of tachycardia in the past when she had an infection in the past. CURRENT MEDICATIONS: At home, she was on; 1. Furosemide. 2. Valsartan. 3. Potassium. ALLERGIES: AMOXICILLIN AND CIPRO. REVIEW OF SYSTEMS: CONSTITUTIONAL: She is much more alert and awake. VISION: No changes. HEARING: No changes. PULMONARY: No cough or wheezing. GASTROINTESTINAL: No nausea, vomiting, or diarrhea. SKIN: No rashes. PHYSICAL EXAMINATION: GENERAL: This is a pleasant patient. VITAL SIGNS: She is 5 feet and 6 inches tall, 210 pounds. Blood pressure 152/68, pulse 80 and it is sinus. LUNGS: Clear. CARDIAC: Normal S1, normal S2. ABDOMEN: Obese and nontender. EXTREMITIES: No clubbing. No cyanosis. SKIN: Warm and dry. PSYCHIATRIC: Mood and affect, normal. NEUROLOGIC: Grossly normal. LABORATORY DATA: Potassium is 3.3. ASSESSMENT: 1. Paroxysmal atrial fibrillation, now in sinus rhythm. 2. Confusion and disorientation, probably an infectious etiology, doing better now. PLAN: 1. Swallowing study to be done. 2. May need potassium, which she can take it orally. 3. On intravenous diltiazem tonight, can change to oral diltiazem tomorrow. Job ID: [id number]
[2019-07-20] MEDS: Famotidine 20 MG TAB PO SCH (20:25)
[2019-07-20] MEDS: Acetaminophen 500 MG TAB PO PRN (20:43)
[2019-07-20] MEDS: Diltiazem HCl 125 MG, Admixture Fee 1 EACH in Sodium Chloride 0.9% 100 ML IVPB SCH (21:57)
[2019-07-20] MEDS ORDERED: Loperamide HCl 2 MG CAP PO SCH (22:15)
[2019-07-21] MEDS: Levothyroxine Sodium 125 MCG TAB PO SCH (05:01)
[2019-07-21] MEDS: Budesonide 0.25 MG/2 ML NEB INH SCH ×2 (07:13→19:35)
[2019-07-21] MEDS: Enoxaparin Sodium 40 MG/0.4 ML SYRINGE SC SCH (08:58)
[2019-07-21] MEDS: Sodium Chloride 0.9% 1,000 ML IV SCH ×2 (08:59→15:29)
[2019-07-21] MEDS: Gabapentin 300 MG CAP PO SCH ×2 (08:59→22:39)
[2019-07-21] MEDS: methylPREDNISolone Sod Succ 40 MG VIAL IVP SCH (08:59)
[2019-07-21] MEDS: Cefdinir 300 MG CAP PO SCH ×2 (08:59→22:39)
[2019-07-21] MEDS: FLUoxetine HCl 20 MG CAP PO SCH (08:59)
[2019-07-21] MEDS: Acetaminophen 500 MG TAB PO PRN ×2 (10:05→20:46)
--- NOTE | 2019-07-21 11:51 | RAD ---
Modified barium swallow HISTORY: Dysphagia. Feeding difficulties. FINDINGS: Exam was performed in conjunction with speech pathology with multiple consistencies. Video review is available and demonstrates good bolus formation and retropulsion. With thin liquid, there is deep penetration and minimal/borderline aspiration. Patient performed better with cup swallows minor n with spoon swallows. Good clearance with no significant residua. The esophagus below the level of the hypopharynx was not evaluated.. Fluoroscopy time 1.1 minutes. Please see separate detailed report from speech pathology.
--- NOTE | 2019-07-21 15:37 | PRG ---
DATE OF SERVICE: 07/21/2019 SUBJECTIVE: Ms. Santizo is doing better. She is able to eat and take oral medicines. No shortness of breath or chest pain. OBJECTIVE: VITAL SIGNS: Blood pressure 150/57, pulse 80 and it is sinus. LUNGS: Clear. CARDIAC: Normal S1, normal S2 ABDOMEN: Obese, nontender. EXTREMITIES: No edema. ASSESSMENT: 1. Paroxysmal atrial fibrillation, maintaining sinus rhythm. 2. Confusion, disorientation, improved. PLAN: 1. Change to oral diltiazem. 2. Dr. Lino to see Tuesday. Job ID: [id number]
--- NOTE | 2019-07-21 16:19 | PRG ---
DATE OF SERVICE: 07/21/2019 SERVICE: Pulmonary medicine. INTERVAL HISTORY: The patient is doing really well from respiratory standpoint. She indicates that her strength is improving. She denies any current chest discomfort, fevers, or chills. She feels like she is breathing comfortably and she is happily watching the football game today. PHYSICAL EXAMINATION: VITAL SIGNS: Afebrile, pulse 75, blood pressure 151/68, respirations 16, and saturation 100% on 2 L nasal cannula. GENERAL: The patient is awake and alert, in no apparent distress. LUNGS: Wonderful air entry. There is no prolonged expiratory phase or wheezing present. HEART: Normal rate and regular. ABDOMEN: Soft, nontender, nondistended. Bowel sounds are positive. MUSCULOSKELETAL: No cyanosis or clubbing. There is trace pitting in the bilateral lower extremities. NEUROLOGIC: Grossly nonfocal. LABORATORIES: Urine culture is growing yeast. Blood culture x2 is negative. C diff antigen and toxin are unremarkable. Respiratory culture is negative. IMAGING: Modified barium swallow demonstrates good bolus formation and retropulsion. There is deep penetration and minimal aspiration associated with thin liquids. She performed better with cup swallows then with spoon swallows. ASSESSMENT: 1. Acute hypoxic respiratory failure, improving. 2. Community-acquired pneumonia secondary to overt aspiration. 3. Oropharyngeal dysphagia with aspiration demonstrated on modified barium swallow. 4. Encephalopathy, resolved. DISCUSSION AND PLAN: The patient is doing great from respiratory standpoint. We will switch her over to prednisone. Antibiotics can be discontinued after a total duration of 7 days. Pulmonary/Critical Care will follow along. We will follow intermittently during this hospital stay. We will involve Physical Therapy, and have the patient get into a chair on a daily basis. Job ID: [id number]
--- NOTE | 2019-07-21 16:24 | PRG ---
DATE OF SERVICE: 07/21/2019 SUBJECTIVE: Feeling much better. She is awake, alert, eating without any difficulty. Cough has improved. No chest pain. No abdominal pain or diarrhea. OBJECTIVE: VITAL SIGNS: T-max 100.3 yesterday. She has been afebrile since blood pressure 150/60, pulse 75, respirations 16, O2 saturation 100. HEENT: Ocular movements conjugate. Oral cavity normal. LUNGS: Markedly improved lungs sounds, better respiratory excursions. HEART: S1 and S2 regular rate. ABDOMEN: Soft, not distended. NEUROLOGIC: Unchanged. LABORATORY DATA: White cell count of 11.7, hemoglobin 10.4, and platelets 258. Creatinine 0.91, which has improved from admission. Microbiology with negative C diff, negative blood culture x2 sets. She had a speech modified barium swallow and this showed deep penetration with thin liquid borderline aspiration. Her diet was modified accordingly. ASSESSMENT AND DISCUSSION: Tracheobronchomalacia, recurrent respiratory infections now with another episode which has reversed fairly quickly again with broad-spectrum coverage methylprednisolone. The steroids have been tapered and discontinued and she is on inhaled budesonide and cefdinir, modified diet. Job ID: [id number]
--- NOTE | 2019-07-21 16:26 | PDOC.HOSPP ---
- Subjective Subjective: Seen and examined. Patient somnolent this morning. Patient did well with speech therapy and they recommended increasing her diet. Overall medically she is improving on maximal medical therapy. Patient is profoundly week and will need rehabilitation inpatient likely. - Objective Vital Signs & Weight: Vital Signs (12 hours) Temp Pulse Resp BP Pulse Ox 07/21/19 15:31 98.2 F 75 16 151/68 H 100 07/21/19 13:03 85 14 98 07/21/19 11:36 72 18 150/57 H 96 07/21/19 07:35 98.5 F 65 18 156/77 H 98 07/21/19 07:13 69 15 97 Weight Admit Weight 210 lb 5.136 oz Weight 210 lb 5.136 oz Most Recent Monitor Data Heart Rate from ECG 82 NIBP 138/69 NIBP BP-Mean 92 Respiration from ECG 21 SpO2 92 I&O: 07/20/19 07/21/19 07/22/19 06:59 06:59 06:59 Intake Total 5428.2 150 Output Total 2130 1250 Balance 3298.2 -1100 Result Diagrams: 07/20/19 11:00 07/20/19 11:00 Radiology Reviewed by me: Yes (KELSI) Hospitalist ROS - Review of Systems All other systems reviewed; all pertinent +/- noted in HPI/Subj - Medication Medications: Active Medications Generic Name Dose Route Start Last Admin Trade Name Freq PRN Reason Stop Dose Admin Acetaminophen 1,000 mg 07/18/19 12:45 07/21/19 10:05 Tylenol PO 1,000 mg Q6H PRN Administration TEMPERATURE >100.3 F Albuterol/Ipratropium 3 ml 07/19/19 13:00 07/21/19 13:03 Duoneb NEB 3 ml [id number] JERMAINE Administration Budesonide 0.5 mg 07/17/19 18:30 07/21/19 07:13 Pulmicort Neb Solution INH 0.5 mg BID-RT JERMAINE Administration Cefdinir 300 mg 07/19/19 09:00 07/21/19 08:59 Omnicef PO 07/24/19 09:01 300 mg BID JERMAINE Administration Diltiazem HCl 120 mg 07/21/19 15:15 07/21/19 15:29 Cardizem Cd PO 07/21/19 17:15 120 mg NOW JERMAINE Administration Enoxaparin Sodium 40 mg 07/18/19 09:00 07/21/19 08:58 Lovenox SC 40 mg 0900 JERMAINE Administration Famotidine 20 mg 07/20/19 21:00 07/20/19 20:25 Pepcid PO 20 mg HS JERMAINE Administration Fluoxetine HCl 20 mg 07/18/19 09:00 07/21/19 08:59 Prozac PO 20 mg DAILY JERMAINE Administration Gabapentin 600 mg 07/19/19 09:00 07/21/19 08:59 Neurontin PO 600 mg BID JERMAINE Administration Sodium Chloride 1,000 mls @ 50 mls/hr 07/21/19 14:37 07/21/19 15:29 Normal Saline 0.9% IV Not Given .Q20H JERMAINE Levothyroxine Sodium 125 mcg 07/18/19 06:00 07/21/19 05:01 Synthroid PO 125 mcg 0600 JERMAINE Administration Ondansetron HCl 4 mg 07/17/19 13:32 07/19/19 19:40 Zofran IVP 4 mg Q6H PRN Administration Nausea/Vomiting - Exam General Appearance: NAD, awake alert Eye: anicteric sclera ENT: moist mucosa Neck: supple, symmetric, no lymphadenopathy Heart: no murmur, no gallops, no rubs Respiratory: CTAB, no rales, no ronchi, wheezes Gastrointestinal: soft, non-tender, no guarding, no rigidity Extremities: no edema Skin: no lesions, no rashes Neurological: cranial nerve grossly intact, no focal deficits Musculoskeletal: generalized weakness Psychiatric: normal affect, A&O x 3 Hosp A/P (1) Acute respiratory failure with hypoxia Code(s): J96.01 - ACUTE RESPIRATORY FAILURE WITH HYPOXIA Status: Acute (2) Bilateral pleural effusion Code(s): J90 - PLEURAL EFFUSION, NOT ELSEWHERE CLASSIFIED Status: Acute (3) Fever Code(s): R50.9 - FEVER, UNSPECIFIED Status: Resolved (4) Hyponatremia Code(s): E87.1 - HYPO-OSMOLALITY AND HYPONATREMIA Status: Chronic (5) PNA (pneumonia) Code(s): J18.9 - PNEUMONIA, UNSPECIFIED ORGANISM Status: Acute Qualifiers: Pneumonia type: due to unspecified organism Laterality: bilateral Lung location: lower lobe of lung Qualified Code(s): J18.1 - Lobar pneumonia, unspecified organism (6) SOB (shortness of breath) Code(s): R06.02 - SHORTNESS OF BREATH Status: Acute (7) Tracheomalacia Code(s): J39.8 - OTHER SPECIFIED DISEASES OF UPPER RESPIRATORY TRACT Status: Acute (8) UTI (urinary tract infection) Status: Acute Qualifiers: Urinary tract infection type: acute cystitis Hematuria presence: without hematuria Qualified Code(s): N30.00 - Acute cystitis without hematuria (9) Urinary incontinence Code(s): R32 - UNSPECIFIED URINARY INCONTINENCE Status: Acute (10) Afib Code(s): I48.91 - UNSPECIFIED ATRIAL FIBRILLATION Status: Chronic Qualifiers: Atrial fibrillation type: paroxysmal Qualified Code(s): I48.0 - Paroxysmal atrial fibrillation (11) Anxiety and depression Code(s): F41.8 - OTHER SPECIFIED ANXIETY DISORDERS Status: Chronic (12) COPD (chronic obstructive pulmonary disease) Status: Chronic Qualifiers: COPD type: chronic bronchitis (13) Chronic low back pain Code(s): M54.5 - LOW BACK PAIN; G89.29 - OTHER CHRONIC PAIN Status: Chronic (14) GERD (gastroesophageal reflux disease) Code(s): K21.9 - GASTRO-ESOPHAGEAL REFLUX DISEASE WITHOUT ESOPHAGITIS Status: Chronic Qualifiers: Esophagitis presence: without esophagitis (15) Hypertension Code(s): I10 - ESSENTIAL (PRIMARY) HYPERTENSION Status: Chronic Qualifiers: (16) Hypothyroidism Code(s): E03.9 - HYPOTHYROIDISM, UNSPECIFIED Status: Chronic Qualifiers: Hypothyroidism type: unspecified Qualified Code(s): E03.9 - Hypothyroidism , unspecified (17) Obesity (BMI 30-39.9) Code(s): E66.9 - OBESITY, UNSPECIFIED Status: Chronic (18) Physical deconditioning Code(s): R53.81 - OTHER MALAISE Status: Chronic (19) Sepsis Code(s): A41.9 - SEPSIS, UNSPECIFIED ORGANISM Status: Suspected Qualifiers: Sepsis type: sepsis due to unspecified organism Sepsis acute organ dysfunction status: with acute organ dysfunction Severe sepsis acute organ dysfunction type: acute renal failure Severe sepsis shock status: without septic shock (20) Acute kidney injury Code(s): N17.9 - ACUTE KIDNEY FAILURE, UNSPECIFIED Status: Resolved (21) Metabolic acidosis Code(s): E87.2 - ACIDOSIS Status: Resolved (22) Pneumonia Code(s): J18.9 - PNEUMONIA, UNSPECIFIED ORGANISM Status: Ruled-out - Plan Plan: Med/ Tel pulmonology consultation, recommendations appreciated cardiology consultation, recommendations appreciated ID consultation, recommendations appreciated Speech therapy consultation, recommendations appreciated ABX per ID Low grade fevers improved rate control vs rhythm control, now sinus S/p MBS tomorrow per Speech therapy, agree with advancing diet per recommendationas will need physical therapy and occupational therapy evaluation and treatment rehabilitation will most definitely be needed for this patient
[2019-07-21] MEDS: Diltiazem 125 MG in Sodium Chloride 0.9% 100 ML IVPB SCH (21:19)
[2019-07-21] MEDS: Famotidine 20 MG TAB PO SCH (22:39)
--- NOTE | 2019-07-21 23:23 | EKG ---
Test Reason : Blood Pressure : / mmHG Vent. Rate : 081 BPM Atrial Rate : 079 BPM P-R Int : 000 ms QRS Dur : 106 ms QT Int : 424 ms P-R-T Axes : 000 245 073 degrees QTc Int : 492 ms Accelerated Junctional rhythm Right superior axis deviation Possible Anterior infarct , age undetermined Abnormal ECG Confirmed by NELLY ANDRADE DO ([id number]), web editor ROMY CHAMBERS ([id number]) on 07/21/2019 11:22:53 PM Referred By: Confirmed By:NELLY ANDRADE DO
[2019-07-22] MEDS: Acetaminophen 500 MG TAB PO PRN ×3 (04:15→21:32)
[2019-07-22] MEDS: Levothyroxine Sodium 125 MCG TAB PO SCH (05:43)
[2019-07-22] MEDS: Budesonide 0.25 MG/2 ML NEB INH SCH ×2 (06:56→19:51)
[2019-07-22] MEDS: Floranex Packet PO SCH ×3 (09:46→21:33)
[2019-07-22] MEDS: Cefdinir 300 MG CAP PO SCH ×2 (09:46→21:32)
[2019-07-22] MEDS: Enoxaparin Sodium 40 MG/0.4 ML SYRINGE SC SCH (09:47)
[2019-07-22] MEDS: FLUoxetine HCl 20 MG CAP PO SCH (09:47)
[2019-07-22] MEDS: Gabapentin 300 MG CAP PO SCH ×2 (09:47→21:31)
[2019-07-22] MEDS: Sodium Chloride 0.9% 1,000 ML IV SCH (10:43)
--- NOTE | 2019-07-22 16:29 | PDOC.HOSPP ---
- Subjective Subjective: Seen and examined. Patient with atrial fibrillation with rapid ventricular response overnight, replaced on diltiazem drip. Patient did not feel symptoms at the time. Overall patient is progressing with improving tolerance to food and exercise. - Objective Vital Signs & Weight: Vital Signs (12 hours) Temp Pulse Resp BP Pulse Ox 07/22/19 16:05 97.7 F 77 16 151/64 H 96 07/22/19 13:18 75 14 98 07/22/19 12:33 97.6 F 77 16 167/72 H 96 07/22/19 07:34 97.8 F 74 16 159/88 H 100 Weight Admit Weight 210 lb 5.136 oz Weight 210 lb 5.136 oz Most Recent Monitor Data Heart Rate from ECG 82 NIBP 138/69 NIBP BP-Mean 92 Respiration from ECG 21 SpO2 92 I&O: 07/21/19 07/22/19 07/23/19 06:59 06:59 06:59 Intake Total 150 1530 Output Total 1250 Balance -1100 1530 Result Diagrams: 07/20/19 11:00 07/20/19 11:00 Hospitalist ROS - Review of Systems All other systems reviewed; all pertinent +/- noted in HPI/Subj - Medication Medications: Active Medications Generic Name Dose Route Start Last Admin Trade Name Freq PRN Reason Stop Dose Admin Acetaminophen 1,000 mg 07/18/19 12:45 07/22/19 10:43 Tylenol PO 1,000 mg Q6H PRN Administration TEMPERATURE >100.3 F Acidophilus 1 gm 07/22/19 09:00 07/22/19 16:01 Floranex PO 1 gm TID JERMAINE Administration Albuterol/Ipratropium 3 ml 07/19/19 13:00 07/22/19 13:18 Duoneb NEB 3 ml [id number] JERMAINE Administration Budesonide 0.5 mg 07/17/19 18:30 07/22/19 06:56 Pulmicort Neb Solution INH Not Given BID-RT JERMAINE Cefdinir 300 mg 07/19/19 09:00 07/22/19 09:46 Omnicef PO 07/24/19 09:01 300 mg BID JERMAINE Administration Diltiazem HCl 120 mg 07/22/19 09:00 07/22/19 09:46 Cardizem Cd PO 120 mg DAILY JERMAINE Administration Enoxaparin Sodium 40 mg 07/18/19 09:00 07/22/19 09:47 Lovenox SC 40 mg 0900 JERMAINE Administration Famotidine 20 mg 07/20/19 21:00 07/21/19 22:39 Pepcid PO 20 mg HS JERMAINE Administration Fluoxetine HCl 20 mg 07/18/19 09:00 07/22/19 09:47 Prozac PO 20 mg DAILY JERMAINE Administration Gabapentin 600 mg 07/19/19 09:00 07/22/19 09:47 Neurontin PO 600 mg BID JERMAINE Administration Sodium Chloride 1,000 mls @ 50 mls/hr 07/21/19 14:37 07/22/19 10:43 Normal Saline 0.9% IV 1,000 mls .Q20H JERMAINE Administration Diltiazem HCl 125 mg/ Sodium 125 mls @ 5 mls/hr 07/21/19 21:00 07/21/19 21:19 Chloride IVPB 125 mls INF JERMAINE Administration Protocol 5 MG/HR Levothyroxine Sodium 125 mcg 07/18/19 06:00 07/22/19 05:43 Synthroid PO 125 mcg 0600 JERMAINE Administration Ondansetron HCl 4 mg 07/17/19 13:32 07/19/19 19:40 Zofran IVP 4 mg Q6H PRN Administration Nausea/Vomiting - Exam General Appearance: NAD, awake alert Eye: anicteric sclera ENT: normocephalic atraumatic, moist mucosa Neck: supple, no lymphadenopathy Heart: no murmur, no gallops, no rubs, irregular Respiratory: CTAB, no wheezes, no rales, no ronchi Gastrointestinal: soft, non-tender, non-distended, normal bowel sounds, no guarding, no rigidity Extremities: 1+ LE edema Skin: no lesions, no rashes Neurological: cranial nerve grossly intact, no focal deficits Musculoskeletal: no muscle wasting, generalized weakness Psychiatric: normal affect, A&O x 3 Hosp A/P (1) Acute respiratory failure with hypoxia Code(s): J96.01 - ACUTE RESPIRATORY FAILURE WITH HYPOXIA Status: Acute (2) Bilateral pleural effusion Code(s): J90 - PLEURAL EFFUSION, NOT ELSEWHERE CLASSIFIED Status: Acute (3) Fever Code(s): R50.9 - FEVER, UNSPECIFIED Status: Resolved (4) Hyponatremia Code(s): E87.1 - HYPO-OSMOLALITY AND HYPONATREMIA Status: Chronic (5) PNA (pneumonia) Code(s): J18.9 - PNEUMONIA, UNSPECIFIED ORGANISM Status: Acute Qualifiers: Pneumonia type: due to unspecified organism Laterality: bilateral Lung location: lower lobe of lung Qualified Code(s): J18.1 - Lobar pneumonia, unspecified organism (6) SOB (shortness of breath) Code(s): R06.02 - SHORTNESS OF BREATH Status: Acute (7) Tracheomalacia Code(s): J39.8 - OTHER SPECIFIED DISEASES OF UPPER RESPIRATORY TRACT Status: Acute (8) UTI (urinary tract infection) Status: Acute Qualifiers: Urinary tract infection type: acute cystitis Hematuria presence: without hematuria Qualified Code(s): N30.00 - Acute cystitis without hematuria (9) Urinary incontinence Code(s): R32 - UNSPECIFIED URINARY INCONTINENCE Status: Acute (10) Afib Code(s): I48.91 - UNSPECIFIED ATRIAL FIBRILLATION Status: Chronic Qualifiers: Atrial fibrillation type: paroxysmal Qualified Code(s): I48.0 - Paroxysmal atrial fibrillation (11) Anxiety and depression Code(s): F41.8 - OTHER SPECIFIED ANXIETY DISORDERS Status: Chronic (12) COPD (chronic obstructive pulmonary disease) Status: Chronic Qualifiers: COPD type: chronic bronchitis (13) Chronic low back pain Code(s): M54.5 - LOW BACK PAIN; G89.29 - OTHER CHRONIC PAIN Status: Chronic (14) GERD (gastroesophageal reflux disease) Code(s): K21.9 - GASTRO-ESOPHAGEAL REFLUX DISEASE WITHOUT ESOPHAGITIS Status: Chronic Qualifiers: Esophagitis presence: without esophagitis (15) Hypertension Code(s): I10 - ESSENTIAL (PRIMARY) HYPERTENSION Status: Chronic Qualifiers: (16) Hypothyroidism Code(s): E03.9 - HYPOTHYROIDISM, UNSPECIFIED Status: Chronic Qualifiers: Hypothyroidism type: unspecified Qualified Code(s): E03.9 - Hypothyroidism , unspecified (17) Obesity (BMI 30-39.9) Code(s): E66.9 - OBESITY, UNSPECIFIED Status: Chronic (18) Physical deconditioning Code(s): R53.81 - OTHER MALAISE Status: Chronic (19) Sepsis Code(s): A41.9 - SEPSIS, UNSPECIFIED ORGANISM Status: Suspected Qualifiers: Sepsis type: sepsis due to unspecified organism Sepsis acute organ dysfunction status: with acute organ dysfunction Severe sepsis acute organ dysfunction type: acute renal failure Severe sepsis shock status: without septic shock (20) Acute kidney injury Code(s): N17.9 - ACUTE KIDNEY FAILURE, UNSPECIFIED Status: Resolved (21) Metabolic acidosis Code(s): E87.2 - ACIDOSIS Status: Resolved (22) Pneumonia Code(s): J18.9 - PNEUMONIA, UNSPECIFIED ORGANISM Status: Ruled-out - Plan Plan: Med/ Tel pulmonology consultation, recommendations appreciated cardiology consultation, recommendations appreciated ID consultation, recommendations appreciated Speech therapy consultation, recommendations appreciated RVR, on diltiazem drip per cardiology ABX per ID Low grade fevers improved rate control vs rhythm control, now sinus S/p MBS per Speech therapy, agree with advancing diet per recommendationas will need physical therapy and occupational therapy evaluation and treatment rehabilitation will most definitely be needed for this patient
[2019-07-22] MEDS: Famotidine 20 MG TAB PO SCH (21:32)
[2019-07-23] MEDS: Acetaminophen 500 MG TAB PO PRN ×3 (03:55→20:52)
[2019-07-23] MEDS: Levothyroxine Sodium 125 MCG TAB PO SCH (05:00)
[2019-07-23] MEDS: Sodium Chloride 0.9% 1,000 ML IV SCH (05:01)
[2019-07-23] MEDS ORDERED: hydrALAZINE 20 MG/ML VIAL SLOW IVP PRN (07:50)
[2019-07-23] MEDS: FLUoxetine HCl 20 MG CAP PO SCH (08:49)
[2019-07-23] MEDS: Cefdinir 300 MG CAP PO SCH ×2 (08:49→20:52)
[2019-07-23] MEDS: Enoxaparin Sodium 40 MG/0.4 ML SYRINGE SC SCH (08:51)
[2019-07-23] MEDS ORDERED: Valsartan 80 MG TAB PO SCH (09:00)
[2019-07-23] MEDS: Gabapentin 300 MG CAP PO SCH ×2 (09:04→20:52)
[2019-07-23] MEDS: Diltiazem 125 MG in Sodium Chloride 0.9% 100 ML IVPB SCH (09:37)
[2019-07-23] MEDS: Floranex Packet PO SCH ×3 (09:39→20:52)
--- NOTE | 2019-07-23 10:07 | PRG ---
DATE OF SERVICE: 07/23/2019 SUBJECTIVE: This morning, the patient is awake, alert, and responsive. She is eating breakfast. OBJECTIVE: VITAL SIGNS: Temperature 98, pulse 79, respiratory rate 22, and blood pressure 195/89. She is back on Cardizem for SVT. CHEST: No wheezing or crackles. CARDIAC: Normal S1 and S2. No gallops. ABDOMEN: No masses. LABORATORY DATA: All cultures are negative. ASSESSMENT: Recurrent aspiration, dysphagia, supraventricular tachycardia, severe deconditioning. Pulmonary hsieh, switch over to home medication. Diovan 320 mg a day. We will follow. Job ID: [id number]
--- NOTE | 2019-07-23 12:17 | PDOC.HOSPP ---
- Subjective Subjective: Seen and examined. Awake and alert. On diltiazem drip per cardiology. Blood pressure not controlled, I restarted her Diovan this morning. Patient is weak and physically deconditioned. I talked to the patient and her at bedside they would prefer to go home over rehabilitation facility. She states she has been there in the past and she did not think that it helped. - Objective Vital Signs & Weight: Vital Signs (12 hours) Temp Pulse Resp BP Pulse Ox 07/23/19 07:16 98.1 F 71 22 H 195/89 H 95 07/23/19 03:56 98.0 F 70 20 187/81 H 96 Weight Admit Weight 210 lb 5.136 oz Weight 210 lb 5.136 oz Most Recent Monitor Data Heart Rate from ECG 82 NIBP 138/69 NIBP BP-Mean 92 Respiration from ECG 21 SpO2 92 I&O: 07/22/19 07/23/19 07/24/19 06:59 06:59 06:59 Intake Total 1530 1740 Balance 1530 1740 Result Diagrams: 07/20/19 11:00 07/20/19 11:00 Hospitalist ROS - Review of Systems All other systems reviewed; all pertinent +/- noted in HPI/Subj - Medication Medications: Active Medications Generic Name Dose Route Start Last Admin Trade Name Freq PRN Reason Stop Dose Admin Acetaminophen 1,000 mg 07/18/19 12:45 07/23/19 08:49 Tylenol PO 1,000 mg Q6H PRN Administration TEMPERATURE >100.3 F Acidophilus 1 gm 07/22/19 09:00 07/23/19 09:39 Floranex PO 1 gm TID JERMAINE Administration Albuterol/Ipratropium 3 ml 07/19/19 13:00 07/23/19 06:48 Duoneb NEB Not Given [id number] JERMAINE Budesonide 0.5 mg 07/17/19 18:30 07/22/19 19:51 Pulmicort Neb Solution INH 0.5 mg BID-RT JERMAINE Administration Cefdinir 300 mg 07/19/19 09:00 07/23/19 08:49 Omnicef PO 07/24/19 09:01 300 mg BID JERMAINE Administration Diltiazem HCl 120 mg 07/22/19 09:00 07/23/19 08:49 Cardizem Cd PO 120 mg DAILY JERMAINE Administration Enoxaparin Sodium 40 mg 07/18/19 09:00 07/23/19 08:51 Lovenox SC 40 mg 0900 JERMAINE Administration Famotidine 20 mg 07/20/19 21:00 07/22/19 21:32 Pepcid PO 20 mg HS JERMAINE Administration Fluoxetine HCl 20 mg 07/18/19 09:00 07/23/19 08:49 Prozac PO 20 mg DAILY JERMAINE Administration Gabapentin 600 mg 07/19/19 09:00 07/23/19 09:04 Neurontin PO 600 mg BID JERMAINE Administration Sodium Chloride 1,000 mls @ 50 mls/hr 07/21/19 14:37 07/23/19 05:01 Normal Saline 0.9% IV 1,000 mls .Q20H JERMAINE Administration Diltiazem HCl 125 mg/ Sodium 125 mls @ 5 mls/hr 07/21/19 21:00 07/23/19 09:37 Chloride IVPB 125 mls INF JERMAINE Administration Protocol 5 MG/HR Levothyroxine Sodium 125 mcg 07/18/19 06:00 07/23/19 05:00 Synthroid PO 125 mcg 0600 JERMAINE Administration Ondansetron HCl 4 mg 07/17/19 13:32 07/19/19 19:40 Zofran IVP 4 mg Q6H PRN Administration Nausea/Vomiting Valsartan 160 mg 07/23/19 09:00 07/23/19 08:48 Diovan PO 160 mg DAILY JERMAINE Administration - Exam General Appearance: NAD, awake alert Eye: anicteric sclera ENT: normocephalic atraumatic, moist mucosa Neck: supple, symmetric, no lymphadenopathy Heart: no murmur, no gallops, no rubs Heart - other findings: Rate controlled on IV diltiazem Respiratory: CTAB, no wheezes, no rales, no ronchi Gastrointestinal: soft, non-tender, non-distended, no guarding, no rigidity Extremities: no edema Skin: no lesions, no rashes Neurological: cranial nerve grossly intact, no focal deficits Musculoskeletal: generalized weakness Psychiatric: normal affect, A&O x 3 Hosp A/P (1) Acute respiratory failure with hypoxia Code(s): J96.01 - ACUTE RESPIRATORY FAILURE WITH HYPOXIA Status: Acute (2) Bilateral pleural effusion Code(s): J90 - PLEURAL EFFUSION, NOT ELSEWHERE CLASSIFIED Status: Acute (3) Fever Code(s): R50.9 - FEVER, UNSPECIFIED Status: Resolved (4) Hyponatremia Code(s): E87.1 - HYPO-OSMOLALITY AND HYPONATREMIA Status: Chronic (5) PNA (pneumonia) Code(s): J18.9 - PNEUMONIA, UNSPECIFIED ORGANISM Status: Acute Qualifiers: Pneumonia type: due to unspecified organism Laterality: bilateral Lung location: lower lobe of lung Qualified Code(s): J18.1 - Lobar pneumonia, unspecified organism (6) SOB (shortness of breath) Code(s): R06.02 - SHORTNESS OF BREATH Status: Acute (7) Tracheomalacia Code(s): 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 - OTHER SPECIFIED DISEASES OF UPPER RESPIRATORY TRACT Status: Acute (8) UTI (urinary tract infection) Status: Acute Qualifiers: Urinary tract infection type: acute cystitis Hematuria presence: without hematuria Qualified Code(s): N30.00 - Acute cystitis without hematuria (9) Urinary incontinence Code(s): R32 - UNSPECIFIED URINARY INCONTINENCE Status: Acute (10) Afib Code(s): I48.91 - UNSPECIFIED ATRIAL FIBRILLATION Status: Chronic Qualifiers: Atrial fibrillation type: paroxysmal Qualified Code(s): I48.0 - Paroxysmal atrial fibrillation (11) Anxiety and depression Code(s): F41.8 - OTHER SPECIFIED ANXIETY DISORDERS Status: Chronic (12) COPD (chronic obstructive pulmonary disease) Status: Chronic Qualifiers: COPD type: chronic bronchitis (13) Chronic low back pain Code(s): M54.5 - LOW BACK PAIN; G89.29 - OTHER CHRONIC PAIN Status: Chronic (14) GERD (gastroesophageal reflux disease) Code(s): K21.9 - GASTRO-ESOPHAGEAL REFLUX DISEASE WITHOUT ESOPHAGITIS Status: Chronic Qualifiers: Esophagitis presence: without esophagitis Qualified Code(s): K21.9 - Gastro -esophageal reflux disease without esophagitis (15) Hypertension Code(s): I10 - ESSENTIAL (PRIMARY) HYPERTENSION Status: Chronic Qualifiers: (16) Hypothyroidism Code(s): E03.9 - HYPOTHYROIDISM, UNSPECIFIED Status: Chronic Qualifiers: Hypothyroidism type: unspecified Qualified Code(s): E03.9 - Hypothyroidism , unspecified (17) Obesity (BMI 30-39.9) Code(s): E66.9 - OBESITY, UNSPECIFIED Status: Chronic (18) Physical deconditioning Code(s): R53.81 - OTHER MALAISE Status: Chronic (19) Sepsis Code(s): A41.9 - SEPSIS, UNSPECIFIED ORGANISM Status: Suspected Qualifiers: Sepsis type: sepsis due to unspecified organism Sepsis acute organ dysfunction status: with acute organ dysfunction Severe sepsis acute organ dysfunction type: acute renal failure Severe sepsis shock status: without septic shock (20) Acute kidney injury Code(s): N17.9 - ACUTE KIDNEY FAILURE, UNSPECIFIED Status: Resolved (21) Metabolic acidosis Code(s): E87.2 - ACIDOSIS Status: Resolved (22) Pneumonia Code(s): J18.9 - PNEUMONIA, UNSPECIFIED ORGANISM Status: Ruled-out - Plan Plan: Med/ Tel pulmonology consultation, recommendations appreciated cardiology consultation, recommendations appreciated ID consultation, recommendations appreciated Speech therapy consultation, recommendations appreciated RVR, on diltiazem drip per cardiology ABX per ID Low grade fevers improved S/p MBS per Speech therapy, agree with advancing diet per recommendationas PT/OT Patient/ family want to go home rather than rehab and state they have help at home
[2019-07-23] MEDS: Labetalol HCl 100 MG/20 ML VIAL SLOW IVP PRN (12:28)
[2019-07-23] MEDS: Budesonide 0.25 MG/2 ML NEB INH SCH ×2 (14:22→18:39)
--- NOTE | 2019-07-23 14:55 | PRG ---
DATE OF SERVICE: 07/23/2019 SUBJECTIVE: Ms. Santizo is doing okay, but she continues to have episodes of supraventricular tachycardia very rapid. OBJECTIVE: VITAL SIGNS: Her blood pressure is 190/80, pulse is 80. LUNGS: Clear. CARDIAC: Normal S1, normal S2. ASSESSMENT: 1. Hypertension. 2. Paroxysmal supraventricular tachycardia, not responding well to oral diltiazem. 3. Hypertension. PLAN: 1. Increase Valsartan. 2. Add Multaq. Job ID: [id number]
[2019-07-23] MEDS: Dronedarone HCl 400 MG TAB PO SCH (16:00)
[2019-07-23] MEDS: Valsartan 80 MG TAB PO SCH (20:52)
[2019-07-23] MEDS: Famotidine 20 MG TAB PO SCH (20:52)
[2019-07-24] MEDS: Acetaminophen 500 MG TAB PO PRN ×4 (04:13→20:56)
[2019-07-24] MEDS: Levothyroxine Sodium 125 MCG TAB PO SCH (04:14)
[2019-07-24] MEDS: Labetalol HCl 100 MG/20 ML VIAL SLOW IVP PRN ×3 (04:14→14:29)
[2019-07-24] MEDS: Budesonide 0.25 MG/2 ML NEB INH SCH ×2 (07:13→19:08)
[2019-07-24] MEDS ORDERED: Melatonin 3 MG TAB PO PRN (07:46)
[2019-07-24] MEDS: Valsartan 80 MG TAB PO SCH ×2 (08:19→20:56)
[2019-07-24] MEDS: Gabapentin 300 MG CAP PO SCH ×2 (08:19→20:55)
[2019-07-24] MEDS: Dronedarone HCl 400 MG TAB PO SCH ×2 (08:19→16:02)
[2019-07-24] MEDS: FLUoxetine HCl 20 MG CAP PO SCH (08:20)
[2019-07-24] MEDS: Cefdinir 300 MG CAP PO SCH (08:20)
[2019-07-24] MEDS: Enoxaparin Sodium 40 MG/0.4 ML SYRINGE SC SCH (08:20)
[2019-07-24] MEDS: Floranex Packet PO SCH ×3 (08:20→20:55)
[2019-07-24 08:39] LABS: Anion Gap 11 mmol/L (10-20); BUN (Urea Nitrogen) 11 mg/dL (9.8-20.1); Calc. Creatinine Clearance 85 mL/min (70-130); Calcium 7.9 mg/dL (7.8-10.44); Carbon Dioxide 26 mmol/L (23-31); Chloride 107 mmol/L (98-107); Estimated GFR-MDRD 71; Glucose 100 mg/dL (83-110); Sodium 141 mmol/L (136-145)
[2019-07-24 08:44] LABS: Potassium 2.6 mmol/L (3.5-5.1)
--- NOTE | 2019-07-24 09:28 | PRG ---
DATE OF SERVICE: 07/24/2019 SUBJECTIVE: This morning, she is better, less short of breath. OBJECTIVE: VITAL SIGNS: Saturations are 90% on room air, respiratory rate , temperature 98, blood pressure 160/81. CHEST: No wheezing or crackles. CARDIAC: Normal S1 and S2. No gallops. ABDOMEN: No mass. IMPRESSION: 1. Recurrent aspiration. 2. Encephalopathy. 3. Supraventricular tachycardia. 4. Morbid obesity. 5. Severe deconditioning. PLAN: Pulmonary hsieh, when she is switched over to order cardiac medication, she can be discharged home. Otherwise, continue supportive care, PT, neb treatments. Job ID: [id number]
[2019-07-24] MEDS: Potassium Chloride 20 MEQ TAB PO SCH ×3 (10:03→16:06)
[2019-07-24] MEDS: Loperamide HCl 2 MG CAP PO PRN (11:15)
[2019-07-24] MEDS: Sodium Chloride 0.9% 1,000 ML IV SCH (12:04)
[2019-07-24 14:39] LABS: Anion Gap 12 mmol/L (10-20); BUN (Urea Nitrogen) 10 mg/dL (9.8-20.1); Calc. Creatinine Clearance 82 mL/min (70-130); Calcium 7.6 mg/dL (7.8-10.44); Carbon Dioxide 24 mmol/L (23-31); Chloride 108 mmol/L (98-107); Estimated GFR-MDRD 68; Glucose 130 mg/dL (83-110); Sodium 141 mmol/L (136-145)
--- NOTE | 2019-07-24 15:36 | PDOC.HOSPP ---
- Subjective Subjective: Seen and examined. Blood pressure issues persist. Being adjusted by cardiology for both heart rate and blood pressure. Remains on diltiazem drip per cardiology. Had an allergic reaction to hygiene products and now with blistering in the vagina. - Objective Vital Signs & Weight: Vital Signs (12 hours) Temp Pulse Pulse Pulse Resp BP BP 07/24/19 14:05 75 18 07/24/19 11:08 97.8 F 63 16 07/24/19 10:40 64 68 186/86 H 07/24/19 08:41 86 07/24/19 07:40 98.1 F 72 15 07/24/19 04:14 88 203/87 H 07/24/19 03:55 97.8 F 69 16 BP BP Pulse Ox Pulse Ox Pulse Ox 07/24/19 14:05 96 07/24/19 11:08 158/73 H 97 07/24/19 10:40 171/75 H 98 98 07/24/19 08:41 07/24/19 07:40 168/81 H 97 07/24/19 04:14 07/24/19 03:55 175/78 H 96 Weight Admit Weight 210 lb 5.136 oz Weight 203 lb Most Recent Monitor Data Heart Rate from ECG 82 NIBP 138/69 NIBP BP-Mean 92 Respiration from ECG 21 SpO2 92 I&O: 07/23/19 07/24/19 07/25/19 06:59 06:59 06:59 Intake Total 1740 1089.7 Balance 1740 1089.7 Result Diagrams: 07/20/19 11:00 07/24/19 14:10 Hospitalist ROS - Review of Systems All other systems reviewed; all pertinent +/- noted in HPI/Subj - Medication Medications: Active Medications Generic Name Dose Route Start Last Admin Trade Name Freq PRN Reason Stop Dose Admin Acetaminophen 1,000 mg 07/18/19 12:45 07/24/19 14:29 Tylenol PO 1,000 mg Q6H PRN Administration TEMPERATURE >100.3 F Acidophilus 1 gm 07/22/19 09:00 07/24/19 14:30 Floranex PO 1 gm TID JERMAINE Administration Albuterol/Ipratropium 3 ml 07/19/19 13:00 07/24/19 14:05 Duoneb NEB 3 ml [id number] JERMAINE Administration Budesonide 0.5 mg 10/08/19 18:30 07/24/19 07:13 Pulmicort Neb Solution INH Not Given BID-RT JERMAINE Diltiazem HCl 120 mg 07/22/19 09:00 07/24/19 08:20 Cardizem Cd PO 120 mg DAILY JERMAINE Administration Dronedarone 400 mg 07/23/19 17:00 07/24/19 08:19 Multaq PO 400 mg BID-WM JERMAINE Administration Enoxaparin Sodium 40 mg 07/18/19 09:00 07/24/19 08:20 Lovenox SC 40 mg 0900 JERMAINE Administration Famotidine 20 mg 07/20/19 21:00 07/23/19 20:52 Pepcid PO 20 mg HS JERMAINE Administration Fluoxetine HCl 20 mg 07/18/19 09:00 07/24/19 08:20 Prozac PO 20 mg DAILY JERMAINE Administration Gabapentin 600 mg 07/19/19 09:00 07/24/19 08:19 Neurontin PO 600 mg BID JERMAINE Administration Sodium Chloride 1,000 mls @ 50 mls/hr 07/21/19 14:37 07/24/19 12:04 Normal Saline 0.9% IV 1,000 mls .Q20H JERMAINE Administration Diltiazem HCl 125 mg/ Sodium 125 mls @ 5 mls/hr 07/21/19 21:00 07/23/19 09:37 Chloride IVPB 125 mls INF JERMAINE Administration Protocol 5 MG/HR Labetalol HCl 10 mg 07/23/19 07:50 07/24/19 14:29 Normodyne SLOW IVP 10 mg Q4H PRN Administration SBP Greater Than 180 Levothyroxine Sodium 125 mcg 07/18/19 06:00 07/24/19 04:14 Synthroid PO 125 mcg 0600 JERMAINE Administration Loperamide HCl 2 mg 07/24/19 10:48 07/24/19 11:15 Imodium PO 2 mg PRN PRN Administration Diarrhea/Loose Stools Ondansetron HCl 4 mg 07/17/19 13:32 07/19/19 19:40 Zofran IVP 4 mg Q6H PRN Administration Nausea/Vomiting Potassium Chloride 40 meq 07/24/19 09:00 07/24/19 12:07 K-Dur PO 07/24/19 17:01 40 meq Q4H JERMIANE Administration Valsartan 160 mg 10/14/19 21:00 07/24/19 08:19 Diovan PO 160 mg BID JERMAINE Administration - Exam General Appearance: NAD, awake alert Eye: anicteric sclera ENT: moist mucosa Neck: supple, symmetric, no lymphadenopathy Heart: no murmur, no gallops, no rubs Respiratory: CTAB, no wheezes, no rales, no ronchi Gastrointestinal: soft, non-tender, no palpable masses, no guarding, no rigidity Extremities: no edema Skin: no lesions, no rashes Neurological: cranial nerve grossly intact, no focal deficits Musculoskeletal: generalized weakness Psychiatric: normal affect, A&O x 3 Hosp A/P (1) Acute respiratory failure with hypoxia Code(s): J96.01 - ACUTE RESPIRATORY FAILURE WITH HYPOXIA Status: Acute (2) Bilateral pleural effusion Code(s): J90 - PLEURAL EFFUSION, NOT ELSEWHERE CLASSIFIED Status: Acute (3) Fever Code(s): R50.9 - FEVER, UNSPECIFIED Status: Resolved (4) Hyponatremia Code(s): E87.1 - HYPO-OSMOLALITY AND HYPONATREMIA Status: Chronic (5) PNA (pneumonia) Code(s): J18.9 - PNEUMONIA, UNSPECIFIED ORGANISM Status: Acute Qualifiers: Pneumonia type: due to unspecified organism Laterality: bilateral Lung location: lower lobe of lung Qualified Code(s): J18.1 - Lobar pneumonia, unspecified organism (6) SOB (shortness of breath) Code(s): R06.02 - SHORTNESS OF BREATH Status: Acute (7) Tracheomalacia Code(s): J39.8 - OTHER SPECIFIED DISEASES OF UPPER RESPIRATORY TRACT Status: Acute (8) UTI (urinary tract infection) Status: Acute Qualifiers: Urinary tract infection type: acute cystitis Hematuria presence: without hematuria Qualified Code(s): N30.00 - Acute cystitis without hematuria (9) Urinary incontinence Code(s): R32 - UNSPECIFIED URINARY INCONTINENCE Status: Acute (10) Afib Code(s): I48.91 - UNSPECIFIED ATRIAL FIBRILLATION Status: Chronic Qualifiers: Atrial fibrillation type: paroxysmal Qualified Code(s): I48.0 - Paroxysmal atrial fibrillation (11) Anxiety and depression Code(s): F41.8 - OTHER SPECIFIED ANXIETY DISORDERS Status: Chronic (12) COPD (chronic obstructive pulmonary disease) Status: Chronic Qualifiers: COPD type: chronic bronchitis (13) Chronic low back pain Code(s): M54.5 - LOW BACK PAIN; G89.29 - OTHER CHRONIC PAIN Status: Chronic (14) GERD (gastroesophageal reflux disease) Code(s): K21.9 - GASTRO-ESOPHAGEAL REFLUX DISEASE WITHOUT ESOPHAGITIS Status: Chronic Qualifiers: Esophagitis presence: without esophagitis Qualified Code(s): K21.9 - Gastro -esophageal reflux disease without esophagitis (15) Hypertension Code(s): I10 - ESSENTIAL (PRIMARY) HYPERTENSION Status: Chronic Qualifiers: (16) Hypothyroidism Code(s): E03.9 - HYPOTHYROIDISM, UNSPECIFIED Status: Chronic Qualifiers: Hypothyroidism type: unspecified Qualified Code(s): E03.9 - Hypothyroidism , unspecified (17) Obesity (BMI 30-39.9) Code(s): E66.9 - OBESITY, UNSPECIFIED Status: Chronic (18) Physical deconditioning Code(s): R53.81 - OTHER MALAISE Status: Chronic (19) Sepsis Code(s): A41.9 - SEPSIS, UNSPECIFIED ORGANISM Status: Suspected Qualifiers: Sepsis type: sepsis due to unspecified organism Sepsis acute organ dysfunction status: with acute organ dysfunction Severe sepsis acute organ dysfunction type: acute renal failure Severe sepsis shock status: without septic shock (20) Acute kidney injury Code(s): N17.9 - ACUTE KIDNEY FAILURE, UNSPECIFIED Status: Resolved (21) Metabolic acidosis Code(s): E87.2 - ACIDOSIS Status: Resolved (22) Pneumonia Code(s): J18.9 - PNEUMONIA, UNSPECIFIED ORGANISM Status: Ruled-out - Plan Plan: Med/ Tel pulmonology consultation, recommendations appreciated cardiology consultation, recommendations appreciated ID consultation, recommendations appreciated Speech therapy consultation, recommendations appreciated RVR, on diltiazem drip per cardiology ABX per ID Low grade fevers improved Allergic reaction to hygiene products - blistering in the vagina - wound care consulted -topical cream added. Oral Benadryl PRN on S/p MBS per Speech therapy, agree with advancing diet per recommendationas PT/OT Patient/ family want to go home rather than rehab and state they have help at home
[2019-07-24] MEDS: Diltiazem 125 MG in Sodium Chloride 0.9% 100 ML IVPB SCH (16:03)
[2019-07-24] MEDS: Triamcinolone 0.1% Cream 15 GM TUBE TOP PRN ×2 (16:03→20:56)
--- NOTE | 2019-07-24 18:45 | PRG ---
DATE OF SERVICE: SUBJECTIVE: Ms. Santizo is doing better today. She did not have any SVT today. She did have some mild bradycardia earlier this morning. OBJECTIVE: VITAL SIGNS: Her blood pressure 174/79, now is 140 systolic; pulse 78. LUNGS: Clear. CARDIAC: Normal S1, normal S2. ASSESSMENT: Atrial arrhythmias, improved with Multaq. PLAN: Stop intravenous diltiazem. Job ID: [id number]
[2019-07-24] MEDS: diphenhydrAMINE 25 MG CAP PO PRN (20:56)
[2019-07-24] MEDS: Famotidine 20 MG TAB PO SCH (20:56)
[2019-07-25] MEDS: Sodium Chloride 0.9% 1,000 ML IV SCH (00:25)
[2019-07-25] MEDS: Acetaminophen 500 MG TAB PO PRN ×2 (04:43→17:25)
[2019-07-25] MEDS: Levothyroxine Sodium 125 MCG TAB PO SCH (04:43)
[2019-07-25] MEDS: Budesonide 0.25 MG/2 ML NEB INH SCH (07:15)
[2019-07-25] MEDS ORDERED: Potassium Chloride 40 MEQ in Sodium Chloride 0.45% 1,000 ML IV SCH (07:45)
[2019-07-25 08:21] LABS: Anion Gap 13 mmol/L (10-20); BUN (Urea Nitrogen) 9 mg/dL (9.8-20.1); Calc. Creatinine Clearance 88 mL/min (70-130); Calcium 7.7 mg/dL (7.8-10.44); Carbon Dioxide 25 mmol/L (23-31); Chloride 108 mmol/L (98-107); Estimated GFR-MDRD 75; Glucose 97 mg/dL (83-110); Potassium 3.6 mmol/L (3.5-5.1); Sodium 142 mmol/L (136-145)
[2019-07-25] MEDS: Gabapentin 300 MG CAP PO SCH ×2 (08:45→20:13)
[2019-07-25] MEDS: Valsartan 80 MG TAB PO SCH ×2 (08:45→20:12)
[2019-07-25] MEDS: FLUoxetine HCl 20 MG CAP PO SCH (08:46)
[2019-07-25] MEDS: Dronedarone HCl 400 MG TAB PO SCH ×2 (08:46→16:29)
[2019-07-25] MEDS: Enoxaparin Sodium 40 MG/0.4 ML SYRINGE SC SCH (08:46)
[2019-07-25] MEDS: Floranex Packet PO SCH ×3 (08:46→20:12)
--- NOTE | 2019-07-25 09:41 | PRG ---
DATE OF SERVICE: 07/25/2019 SUBJECTIVE: This morning, she is awake, alert, and responsive. OBJECTIVE: VITAL SIGNS: Temperature 97, pulse 71, saturations are 97% on 2 L, blood pressure _123\78 Switched over to p.o. Cardizem. CHEST: No wheezing or crackles. CARDIAC: Normal S1 and S2. No gallops. ABDOMEN: No masses. ASSESSMENT: Recurrent aspiration, bronchitis, supraventricular tachycardia. PLAN: Pulmonary hsieh, she is much improved, stable enough to be transferred back to home. Job ID: [id number] [facility]
[2019-07-25] MEDS ORDERED: Furosemide 20 MG/2 ML VIAL SLOW IVP SCH (10:30)
[2019-07-25] MEDS ORDERED: Spironolactone 25 MG TAB PO SCH (11:15)
--- NOTE | 2019-07-25 11:18 | PRG ---
DATE OF SERVICE: 07/25/2019 SUBJECTIVE: The patient is feeling well this week. No complaints. Otherwise, no chest pain or pressure. OBJECTIVE: VITAL SIGNS: Blood pressure is high 176/79 and pulse is 72 and regular. LUNGS: Clear. CARDIAC: Normal S1 and normal S2. ABDOMEN: Soft and nontender. EXTREMITIES: Mild edema. ASSESSMENT: 1. Status post atrial arrhythmias, improved with Multaq. 2. Hypokalemia, improved. Potassium is 3.6. 3. Hypertension, probably related to volume overload. PLAN: 1. I would stop intravenous fluids. 2. We will give her a dose of Lasix and one dose of spironolactone. 3. Probably home soon on current medicine. Job ID: [id number]
[2019-07-25] MEDS: Loperamide HCl 2 MG CAP PO PRN (11:30)
[2019-07-25] MEDS ORDERED: Potassium Chloride 20 MEQ TAB PO SCH (12:00)
--- NOTE | 2019-07-25 13:03 | PDOC.HOSPP ---
- Subjective Subjective: Seen and examined. Patient with several loose bowel movements, not eating or drinking much. I had continued IV fluids to avoid dehydration and electrolyte abnormalities. Cardiology believes that the patient is now euvolemic and even on the volume overload side, and recommend stopping IV fluids, will stop. Patient is profoundly week, has been to rehab in the past several times, though she is not interested in going back. Going a home would require 24/7 care with personal care assistance and family support. Undergoing Echocardiogram currently this AM, read pending. - Objective Vital Signs & Weight: Vital Signs (12 hours) Temp Pulse Pulse Resp BP BP Pulse Ox 07/25/19 11:32 98.4 F 85 20 160/73 H 97 07/25/19 09:25 71 175/78 H 07/25/19 07:49 97 07/25/19 07:14 72 14 99 07/25/19 07:08 97.8 F 71 20 176/79 H 97 07/25/19 04:00 97.7 F 72 18 174/76 H 95 Pulse Ox 07/25/19 11:32 07/25/19 09:25 97 07/25/19 07:49 07/25/19 07:14 07/25/19 07:08 07/25/19 04:00 Weight Admit Weight 210 lb 5.136 oz Weight 203 lb Most Recent Monitor Data Heart Rate from ECG 82 NIBP 138/69 NIBP BP-Mean 92 Respiration from ECG 21 SpO2 92 I&O: 07/24/19 07/25/19 07/26/19 06:59 06:59 06:59 Intake Total 1089.7 Balance 1089.7 Result Diagrams: 07/20/19 11:00 07/25/19 07:49 Hospitalist ROS - Review of Systems All other systems reviewed; all pertinent +/- noted in HPI/Subj - Medication Medications: Active Medications Generic Name Dose Route Start Last Admin Trade Name Freq PRN Reason Stop Dose Admin Acetaminophen 1,000 mg 07/18/19 12:45 07/25/19 04:43 Tylenol PO 1,000 mg Q6H PRN Administration TEMPERATURE >100.3 F Acidophilus 1 gm 07/22/19 09:00 07/25/19 08:46 Floranex PO 1 gm TID JERMAINE Administration Albuterol/Ipratropium 3 ml 07/19/19 13:00 07/25/19 07:14 Duoneb NEB 3 ml [id number] JERMAINE Administration Diltiazem HCl 120 mg 07/22/19 09:00 07/25/19 08:45 Cardizem Cd PO 120 mg DAILY JERMAINE Administration Diphenhydramine HCl 25 mg 07/24/19 07:46 07/24/19 20:56 Benadryl PO 25 mg Q6H PRN Administration Itching & Insomnia Dronedarone 400 mg 07/23/19 17:00 07/25/19 08:46 Multaq PO 400 mg BID-WM JERMAINE Administration Enoxaparin Sodium 40 mg 07/18/19 09:00 07/25/19 08:46 Lovenox SC 40 mg 0900 JERMAINE Administration Famotidine 20 mg 07/20/19 21:00 07/24/19 20:56 Pepcid PO 20 mg HS JERMAINE Administration Fluoxetine HCl 20 mg 07/18/19 09:00 07/25/19 08:46 Prozac PO 20 mg DAILY JERMAINE Administration Gabapentin 600 mg 07/19/19 09:00 07/25/19 08:45 Neurontin PO 600 mg BID JERMAINE Administration Labetalol HCl 10 mg 07/23/19 07:50 07/24/19 14:29 Normodyne SLOW IVP 10 mg Q4H PRN Administration SBP Greater Than 180 Levothyroxine Sodium 125 mcg 07/18/19 06:00 07/25/19 04:43 Synthroid PO 125 mcg 0600 JERMAINE Administration Loperamide HCl 2 mg 07/24/19 10:48 07/25/19 11:30 Imodium PO 2 mg PRN PRN Administration Diarrhea/Loose Stools Ondansetron HCl 4 mg 07/17/19 13:32 07/19/19 19:40 Zofran IVP 4 mg Q6H PRN Administration Nausea/Vomiting Potassium Chloride 40 meq 07/25/19 12:00 07/25/19 11:16 K-Dur PO 07/25/19 14:00 40 meq NOW JERMAINE Administration Sodium Chloride 10 ml 07/25/19 09:00 07/25/19 08:47 Flush - Normal Saline IVF 10 ml Q12HR JERMAINE Administration Spironolactone 25 mg 07/25/19 11:15 07/25/19 11:30 Aldactone PO 07/25/19 13:15 25 mg NOW JERMAINE Administration Triamcinolone Acetonide 1 gm 07/24/19 14:50 07/24/19 20:56 Kenalog 0.1% Cream TOP 1 gm BID PRN Administration Topical Irritations Valsartan 160 mg 07/23/19 21:00 07/25/19 08:45 Diovan PO 160 mg BID JERMAINE Administration - Exam General Appearance: NAD, awake alert Eye: anicteric sclera ENT: normocephalic atraumatic, moist mucosa Neck: supple, symmetric, no lymphadenopathy Heart: no murmur, no gallops, no rubs Heart - other findings: Rate better controlled Respiratory: CTAB, no wheezes, no rales, no ronchi, no tachypnea Gastrointestinal: soft, non-tender, non-distended, no guarding, no rigidity Extremities: 1+ LE edema Skin: no lesions, no rashes Neurological: cranial nerve grossly intact, normal sensation to touch, no focal deficits Musculoskeletal: no muscle wasting, generalized weakness Psychiatric: normal affect, A&O x 3 Hosp A/P (1) Acute respiratory failure with hypoxia Code(s): J96.01 - ACUTE RESPIRATORY FAILURE WITH HYPOXIA Status: Acute (2) Bilateral pleural effusion Code(s): J90 - PLEURAL EFFUSION, NOT ELSEWHERE CLASSIFIED Status: Acute (3) Fever Code(s): R50.9 - FEVER, UNSPECIFIED Status: Resolved (4) Hyponatremia Code(s): E87.1 - HYPO-OSMOLALITY AND HYPONATREMIA Status: Chronic (5) PNA (pneumonia) Code(s): J18.9 - PNEUMONIA, UNSPECIFIED ORGANISM Status: Acute Qualifiers: Pneumonia type: due to unspecified organism Laterality: bilateral Lung location: lower lobe of lung Qualified Code(s): J18.1 - Lobar pneumonia, unspecified organism (6) SOB (shortness of breath) Code(s): R06.02 - SHORTNESS OF BREATH Status: Acute (7) Tracheomalacia Code(s): J39.8 - OTHER SPECIFIED DISEASES OF UPPER RESPIRATORY TRACT Status: Acute (8) UTI (urinary tract infection) Status: Acute Qualifiers: Urinary tract infection type: acute cystitis Hematuria presence: without hematuria Qualified Code(s): N30.00 - Acute cystitis without hematuria (9) Urinary incontinence Code(s): R32 - UNSPECIFIED URINARY INCONTINENCE Status: Acute (10) Afib Code(s): I48.91 - UNSPECIFIED ATRIAL FIBRILLATION Status: Chronic Qualifiers: Atrial fibrillation type: paroxysmal Qualified Code(s): I48.0 - Paroxysmal atrial fibrillation (11) Anxiety and depression Code(s): F41.8 - OTHER SPECIFIED ANXIETY DISORDERS Status: Chronic (12) COPD (chronic obstructive pulmonary disease) Status: Chronic Qualifiers: COPD type: chronic bronchitis (13) Chronic low back pain Code(s): M54.5 - LOW BACK PAIN; G89.29 - OTHER CHRONIC PAIN Status: Chronic (14) GERD (gastroesophageal reflux disease) Code(s): K21.9 - GASTRO-ESOPHAGEAL REFLUX DISEASE WITHOUT ESOPHAGITIS Status: Chronic Qualifiers: Esophagitis presence: without esophagitis Qualified Code(s): K21.9 - Gastro -esophageal reflux disease without esophagitis (15) Hypertension Code(s): I10 - ESSENTIAL (PRIMARY) HYPERTENSION Status: Chronic Qualifiers: (16) Hypothyroidism Code(s): E03.9 - HYPOTHYROIDISM, UNSPECIFIED Status: Chronic Qualifiers: Hypothyroidism type: unspecified Qualified Code(s): E03.9 - Hypothyroidism , unspecified (17) Obesity (BMI 30-39.9) Code(s): E66.9 - OBESITY, UNSPECIFIED Status: Chronic (18) Physical deconditioning Code(s): R53.81 - OTHER MALAISE Status: Chronic (19) Sepsis Code(s): A41.9 - SEPSIS, UNSPECIFIED ORGANISM Status: Suspected Qualifiers: Sepsis type: sepsis due to unspecified organism Sepsis acute organ dysfunction status: with acute organ dysfunction Severe sepsis acute organ dysfunction type: acute renal failure Severe sepsis shock status: without septic shock (20) Acute kidney injury Code(s): N17.9 - ACUTE KIDNEY FAILURE, UNSPECIFIED Status: Resolved (21) Metabolic acidosis Code(s): E87.2 - ACIDOSIS Status: Resolved (22) Pneumonia Code(s): J18.9 - PNEUMONIA, UNSPECIFIED ORGANISM Status: Ruled-out - Plan Plan: Med/ Tel pulmonology consultation, recommendations appreciated cardiology consultation, recommendations appreciated ID consultation, recommendations appreciated Speech therapy consultation, recommendations appreciated RVR resolved, off diltiazem drip ABX per ID Low grade fevers improved Allergic reaction to hygiene products - blistering in the vagina - wound care consulted -topical cream added. Oral Benadryl PRN on S/p MBS per Speech therapy, agree with advancing diet per recommendationas PT/OT Patient/ family want to go home rather than rehab and state they have help at home - This would require 24/7 care with personal care assistants and home health Echocardiogram pending this AM
[2019-07-25 13:16] VITALS: BMI 32.8
[2019-07-25] MEDS: Famotidine 20 MG TAB PO SCH (20:12)
[2019-07-25] MEDS: diphenhydrAMINE 25 MG CAP PO PRN (20:12)
[2019-07-26 05:28] LABS: Anion Gap 13 mmol/L (10-20); BUN (Urea Nitrogen) 10 mg/dL (9.8-20.1); Calc. Creatinine Clearance 70 mL/min (70-130); Calcium 8.1 mg/dL (7.8-10.44); Carbon Dioxide 27 mmol/L (23-31); Chloride 105 mmol/L (98-107); Estimated GFR-MDRD 57; Glucose 91 mg/dL (83-110); Potassium 3.7 mmol/L (3.5-5.1); Sodium 141 mmol/L (136-145)
[2019-07-26] MEDS: Acetaminophen 500 MG TAB PO PRN ×2 (05:50→17:14)
[2019-07-26] MEDS: Levothyroxine Sodium 125 MCG TAB PO SCH (05:50)
[2019-07-26] MEDS: Gabapentin 300 MG CAP PO SCH ×2 (08:11→20:12)
[2019-07-26] MEDS: Dronedarone HCl 400 MG TAB PO SCH ×2 (08:12→17:52)
[2019-07-26] MEDS: Enoxaparin Sodium 40 MG/0.4 ML SYRINGE SC SCH (08:12)
[2019-07-26] MEDS: Valsartan 80 MG TAB PO SCH ×2 (08:12→20:13)
[2019-07-26] MEDS: FLUoxetine HCl 20 MG CAP PO SCH (08:13)
--- NOTE | 2019-07-26 09:55 | PRG ---
DATE OF SERVICE: 07/26/2019 SUBJECTIVE: Awake, alert, and responsive, in no distress. OBJECTIVE: VITAL SIGNS: Temperature 98, blood pressure elevated 207/93, medication this morning, respiratory rate 18, saturations 90% on room air. CHEST: No wheezing, crackles. CARDIAC: Normal S1, S2. No gallops. ABDOMEN: No masses. LABORATORY DATA: Lytes are normal. IMPRESSION: Supraventricular tachycardia, morbid obesity, recurrent aspiration, hypoventilation syndrome. The blood pressure medicine needs to be adjusted. Otherwise, continue supportive care. PT. Job ID: [id number]
[2019-07-26] MEDS: Metoprolol Tartrate 25 MG TAB PO SCH ×2 (10:36→20:13)
[2019-07-26] MEDS: Floranex Packet PO SCH ×3 (10:36→22:08)
--- NOTE | 2019-07-26 13:34 | PDOC.CPN ---
- Subjective Date: 07/26/19 Time: 13:47 Interval history: The pt seen and examined. No overnight events. No cardiac complaints. - Objective Allergies/Adverse Reactions: Allergies Allergy/AdvReac Type Severity Reaction Status Date / Time amoxicillin Allergy Verified 02/21/19 16:55 amoxicillin trihydrate Allergy Diarrhea Verified 02/21/19 16:55 [From Augmentin] ciprofloxacin [From Cipro] Allergy Rash Verified 02/21/19 16:55 clavulanic acid Allergy Verified 02/21/19 16:55 [From Augmentin] clindamycin Allergy Verified 02/21/19 16:55 erythromycin base Allergy Verified 02/21/19 16:55 [From Erythrocin] erythromycin lactobionate Allergy Verified 02/21/19 16:55 [From Erythrocin] Latex, Natural Rubber Allergy Rash Verified 02/21/19 16:55 metolazone [Metolazone] Allergy Verified 02/21/19 16:55 nalbuphine Allergy Verified 02/21/19 16:55 nalbuphine HCl [From Nubain] Allergy Verified 02/21/19 16:55 oxycodone Allergy Verified 02/21/19 16:55 oxycodone HCl Allergy Rash Verified 02/21/19 16:55 [From OxyContin] potassium clavulanate Allergy Diarrhea Verified 02/21/19 16:55 [From Augmentin] Sulfa (Sulfonamide Allergy Rash Verified 02/21/19 16:55 Antibiotics) sulfamethoxazole Allergy Verified 02/21/19 16:55 [From Bactrim] trimethoprim [From Bactrim] Allergy Verified 02/21/19 16:55 zolpidem Allergy Verified 02/21/19 16:55 tramadol [From Ultram] AdvReac Intermediate Verified 02/21/19 16:55 zolpidem tartrate AdvReac Intermediate "crazy" Verified 02/21/19 16:55 [From Ambien] fentanyl [From Duragesic] AdvReac Mild Anxiety Verified 02/21/19 16:55 POTASSIUM CLAVULANATE Allergy Uncoded 11/06/18 17:37 Visit Medications: Current Medications Acetaminophen (Tylenol) 650 mg NE Q6H PRN PRN Reason: TEMPERATURE >100.3 F Acetaminophen (Tylenol) 1,000 mg PO Q6H PRN PRN Reason: TEMPERATURE >100.3 F Last Admin: 07/26/19 05:50 Dose: 1,000 mg Acidophilus (Floranex) 1 gm PO TID [facility] Last Admin: 07/26/19 10:36 Dose: 1 gm Albuterol/Ipratropium (Duoneb) 3 ml NEB [id number] [facility] Last Admin: 07/26/19 13:30 Dose: 3 ml Diltiazem HCl (Cardizem Cd) 120 mg PO DAILY [facility] Last Admin: 07/26/19 08:11 Dose: 120 mg Diphenhydramine HCl (Benadryl) 25 mg PO Q6H PRN PRN Reason: Itching & Insomnia Last Admin: 07/25/19 20:12 Dose: 25 mg Dronedarone (Multaq) 400 mg PO BID-[facility] Last Admin: 07/26/19 08:12 Dose: 400 mg Enoxaparin Sodium (Lovenox) 40 mg SC 0900 [facility] Last Admin: 07/26/19 08:12 Dose: 40 mg Famotidine (Pepcid) 20 mg PO HS [facility] Last Admin: 07/25/19 20:12 Dose: 20 mg Fluoxetine HCl (Prozac) 20 mg PO DAILY [facility] Last Admin: 07/26/19 08:13 Dose: 20 mg Gabapentin (Neurontin) 600 mg PO BID [facility] Last Admin: 07/26/19 08:11 Dose: 600 mg Hydralazine HCl (Apresoline) 10 mg SLOW IVP Q4H PRN PRN Reason: Hypertension Labetalol HCl (Normodyne) 10 mg SLOW IVP Q4H PRN PRN Reason: SBP Greater Than 180 Last Admin: 07/24/19 14:29 Dose: 10 mg Levothyroxine Sodium (Synthroid) 125 mcg PO 0600 [facility] Last Admin: 07/26/19 05:50 Dose: 125 mcg Loperamide HCl (Imodium) 2 mg PO PRN PRN PRN Reason: Diarrhea/Loose Stools Last Admin: 07/25/19 11:30 Dose: 2 mg Melatonin (Melatonin) 3 mg PO HS PRN PRN Reason: Insomnia Metoprolol Tartrate (Lopressor) 25 mg PO BID [facility] Last Admin: 07/26/19 10:36 Dose: 25 mg Ondansetron HCl (Zofran) 4 mg IVP Q6H PRN PRN Reason: Nausea/Vomiting Last Admin: 07/19/19 19:40 Dose: 4 mg Sodium Chloride (Flush - Normal Saline) 10 ml IVF Q12HR [facility] Last Admin: 07/26/19 08:13 Dose: 10 ml Sodium Chloride (Flush - Normal Saline) 10 ml IVF PRN PRN PRN Reason: Saline Flush Triamcinolone Acetonide (Kenalog 0.1% Cream) 1 gm TOP BID PRN PRN Reason: Topical Irritations Last Admin: 07/24/19 20:56 Dose: 1 gm Valsartan (Diovan) 160 mg PO BID [facility] Last Admin: 07/26/19 08:12 Dose: 160 mg Vital Signs & Weight: Vital Signs Temp Pulse Resp BP BP Pulse Ox 07/26/19 13:30 76 16 07/26/19 12:55 98.8 F 62 15 164/69 H 93 L 07/26/19 08:11 87 207/93 H 07/26/19 08:00 98.0 F 87 18 204/93 H 95 07/26/19 07:23 96 07/26/19 07:21 94 16 96 07/26/19 04:00 97.9 F 68 18 173/78 H 98 Admit Weight 210 lb 5.136 oz Weight 203 lb - Physical Exam General: alert & oriented x3, other (very forgetful) HEENT: mucus membranes moist Cardiac: regular rate and rhythm, S1/S2 Lungs: clear to auscultation Neuro: cranial nerve 2-12 intact Skin: clear Musculoskeletal: decreased range of motion - Labs Result Diagrams: 07/20/19 11:00 07/26/19 04:35 Troponin/CKMB Troponin I Less than 0.010 ng/mL (< 0.028) 07/17/19 09:51 - Telemetry Sinus rhythms and dysrhythmias: sinus rhythm - Assessment/Plan Assessment/Plan: 1. S/p Afib with RVR - remains in SR with Multaq and diltaizem; Metoprolol was started from this AM; Not on OAC or ASA due to hx of ABD blooding 2. HTN - Metoprolol 25mg was started from this AM; may increase Valsartan to 320mg 3. UTI - 4. bilat pleural effusion - On Lasix; stable with RA 5. Chronic Diastolic HF - stable with RA; on Bblocker, ARB and Lasix 6. HLD - on Statin 7. Hypothyroidism - 8. anxiety/Depression 9. Obese MAR reviewed * Echo on 07/25/2019 with EF 55-60%, grade I dd, mild TR, mild dilated LA
--- NOTE | 2019-07-26 15:44 | PDOC.HOSPP ---
- Subjective Encounter Date: 07/26/19 Encounter Time: 15:42 Subjective: Wishes to go home but the requested for SNF as he could not handle her at home - Objective Vital Signs & Weight: Vital Signs (12 hours) Temp Pulse Resp BP BP Pulse Ox 07/26/19 13:30 76 16 07/26/19 12:55 98.8 F 62 15 164/69 H 93 L 07/26/19 08:11 87 207/93 H 07/26/19 08:00 98.0 F 87 18 204/93 H 95 07/26/19 07:23 96 07/26/19 07:21 94 16 96 07/26/19 04:00 97.9 F 68 18 173/78 H 98 Weight Admit Weight 210 lb 5.136 oz Weight 203 lb Most Recent Monitor Data Heart Rate from ECG 82 NIBP 138/69 NIBP BP-Mean 92 Respiration from ECG 21 SpO2 92 I&O: 07/25/19 07/26/19 07/27/19 06:59 06:59 06:59 Intake Total 1300 720 Balance 1300 720 Result Diagrams: 07/20/19 11:00 07/26/19 04:35 Hospitalist ROS - Medication Medications: Active Medications Generic Name Dose Route Start Last Admin Trade Name Freq PRN Reason Stop Dose Admin Acetaminophen 1,000 mg 07/18/19 12:45 07/26/19 05:50 Tylenol PO 1,000 mg Q6H PRN Administration TEMPERATURE >100.3 F Acidophilus 1 gm 07/22/19 09:00 07/26/19 10:36 Floranex PO 1 gm TID JERMAINE Administration Albuterol/Ipratropium 3 ml 07/19/19 13:00 07/26/19 13:30 Duoneb NEB 3 ml [id number] JERMAINE Administration Diltiazem HCl 120 mg 07/22/19 09:00 07/26/19 08:11 Cardizem Cd PO 120 mg DAILY JERMAINE Administration Diphenhydramine HCl 25 mg 07/24/19 07:46 07/25/19 20:12 Benadryl PO 25 mg Q6H PRN Administration Itching & Insomnia Dronedarone 400 mg 07/23/19 17:00 07/26/19 08:12 Multaq PO 400 mg BID-WM JERMAINE Administration Enoxaparin Sodium 40 mg 07/18/19 09:00 07/26/19 08:12 Lovenox SC 40 mg 0900 JERMAINE Administration Famotidine 20 mg 07/20/19 21:00 07/25/19 20:12 Pepcid PO 20 mg HS JERMAINE Administration Fluoxetine HCl 20 mg 07/18/19 09:00 07/26/19 08:13 Prozac PO 20 mg DAILY JERMAINE Administration Gabapentin 600 mg 07/19/19 09:00 07/26/19 08:11 Neurontin PO 600 mg BID JERMAINE Administration Labetalol HCl 10 mg 07/23/19 07:50 07/24/19 14:29 Normodyne SLOW IVP 10 mg Q4H PRN Administration SBP Greater Than 180 Levothyroxine Sodium 125 mcg 07/18/19 06:00 07/26/19 05:50 Synthroid PO 125 mcg 0600 JERMAINE Administration Loperamide HCl 2 mg 07/24/19 10:48 07/25/19 11:30 Imodium PO 2 mg PRN PRN Administration Diarrhea/Loose Stools Metoprolol Tartrate 25 mg 07/26/19 09:00 07/26/19 10:36 Lopressor PO 25 mg BID JERMAINE Administration Ondansetron HCl 4 mg 07/17/19 13:32 07/19/19 19:40 Zofran IVP 4 mg Q6H PRN Administration Nausea/Vomiting Sodium Chloride 10 ml 07/25/19 09:00 07/26/19 08:13 Flush - Normal Saline IVF 10 ml Q12HR JERMAINE Administration Triamcinolone Acetonide 1 gm 07/24/19 14:50 07/24/19 20:56 Kenalog 0.1% Cream TOP 1 gm BID PRN Administration Topical Irritations Valsartan 160 mg 07/23/19 21:00 07/26/19 08:12 Diovan PO 160 mg BID JERMAINE Administration - Exam General Appearance: NAD, awake alert, ill appearing Eye: PERRL, anicteric sclera, scleral icterus ENT: normocephalic atraumatic, no oropharyngeal lesions, moist mucosa, dry oral mucosa Neck: supple, symmetric, no JVD, no thyromegaly, no lymphadenopathy, no carotid bruit, JVD Heart: RRR, no murmur, no gallops, no rubs, normal peripheral pulses, irregular , diminshed peripheral pulses, murmur present, II/IV, III/IV Respiratory: CTAB, no wheezes, no rales, no ronchi, normal chest expansion, no tachypnea, normal percussion, rales, rhonchi, tachypneic, wheezes Gastrointestinal: soft, non-tender, non-distended, normal bowel sounds, no palpable masses, no hepatomegaly, no splenomegaly, no bruit, no guarding, no rigidity, tender to palpation, distended, diminished bowl sounds, voluntary guarding Extremities: no cyanosis, no clubbing, no edema, 1+ LE edema, 2+ LE edema, clubbing Hosp A/P (1) Acute respiratory failure with hypoxia Code(s): J96.01 - ACUTE RESPIRATORY FAILURE WITH HYPOXIA Status: Acute (2) Bilateral pleural effusion Code(s): J90 - PLEURAL EFFUSION, NOT ELSEWHERE CLASSIFIED Status: Acute (3) UTI (urinary tract infection) Status: Acute Qualifiers: Urinary tract infection type: acute cystitis Hematuria presence: without hematuria Qualified Code(s): N30.00 - Acute cystitis without hematuria - Plan plan discussed w/ family (SNF evaluation)
[2019-07-26] MEDS: Famotidine 20 MG TAB PO SCH (20:12)
[2019-07-26] MEDS ORDERED: Atorvastatin Calcium 10 MG TAB PO SCH (21:00)
[2019-07-26] MEDS: HYDROcodone/Acetaminophen 10/325 mg Tablet PO PRN (23:27)
[2019-07-27] MEDS: HYDROcodone/Acetaminophen 10/325 mg Tablet PO PRN ×3 (04:47→13:51)
[2019-07-27] MEDS: Levothyroxine Sodium 125 MCG TAB PO SCH (04:48)
[2019-07-27] MEDS: Valsartan 80 MG TAB PO SCH (08:26)
[2019-07-27] MEDS: Gabapentin 300 MG CAP PO SCH (08:26)
[2019-07-27] MEDS: Metoprolol Tartrate 25 MG TAB PO SCH (08:26)
[2019-07-27] MEDS: Loperamide HCl 2 MG CAP PO PRN (08:27)
[2019-07-27] MEDS: FLUoxetine HCl 20 MG CAP PO SCH (08:27)
[2019-07-27] MEDS: Floranex Packet PO SCH (08:27)
[2019-07-27] MEDS: Dronedarone HCl 400 MG TAB PO SCH (08:27)
[2019-07-27] MEDS: Enoxaparin Sodium 40 MG/0.4 ML SYRINGE SC SCH (08:28)
[2019-07-27] MEDS ORDERED: hydrALAZINE 25 MG TAB PO SCH (09:00)
--- NOTE | 2019-07-27 10:57 | PDOC.CPN ---
- Subjective Date: 07/27/19 Time: 10:57 Interval history: The pt seen and examined. No overnight events. No cardiac complaints. - Objective Allergies/Adverse Reactions: Allergies Allergy/AdvReac Type Severity Reaction Status Date / Time amoxicillin Allergy Verified 02/21/19 16:55 amoxicillin trihydrate Allergy Diarrhea Verified 02/21/19 16:55 [From Augmentin] ciprofloxacin [From Cipro] Allergy Rash Verified 02/21/19 16:55 clavulanic acid Allergy Verified 02/21/19 16:55 [From Augmentin] clindamycin Allergy Verified 02/21/19 16:55 erythromycin base Allergy Verified 02/21/19 16:55 [From Erythrocin] erythromycin lactobionate Allergy Verified 02/21/19 16:55 [From Erythrocin] Latex, Natural Rubber Allergy Rash Verified 02/21/19 16:55 metolazone [Metolazone] Allergy Verified 02/21/19 16:55 nalbuphine Allergy Verified 02/21/19 16:55 nalbuphine HCl [From Nubain] Allergy Verified 02/21/19 16:55 oxycodone Allergy Verified 02/21/19 16:55 oxycodone HCl Allergy Rash Verified 02/21/19 16:55 [From OxyContin] potassium clavulanate Allergy Diarrhea Verified 02/21/19 16:55 [From Augmentin] Sulfa (Sulfonamide Allergy Rash Verified 02/21/19 16:55 Antibiotics) sulfamethoxazole Allergy Verified 02/21/19 16:55 [From Bactrim] trimethoprim [From Bactrim] Allergy Verified 02/21/19 16:55 zolpidem Allergy Verified 02/21/19 16:55 tramadol [From Ultram] AdvReac Intermediate Verified 02/21/19 16:55 zolpidem tartrate AdvReac Intermediate "crazy" Verified 02/21/19 16:55 [From Ambien] fentanyl [From Duragesic] AdvReac Mild Anxiety Verified 02/21/19 16:55 POTASSIUM CLAVULANATE Allergy Uncoded 11/06/18 17:37 Visit Medications: Current Medications Acetaminophen (Tylenol) 650 mg DE Q6H PRN PRN Reason: TEMPERATURE >100.3 F Acetaminophen (Tylenol) 1,000 mg PO Q6H PRN PRN Reason: TEMPERATURE >100.3 F Last Admin: 07/26/19 17:14 Dose: 1,000 mg Hydrocodone Bitart/Acetaminophen ([place] 10/325) 1 tab PO Q4HR PRN PRN Reason: Pain Last Admin: 07/27/19 08:27 Dose: 1 tab Acidophilus (Floranex) 1 gm PO TID [facility] Last Admin: 07/27/19 08:27 Dose: 1 gm Albuterol/Ipratropium (Duoneb) 3 ml NEB [id number] [facility] Last Admin: 07/27/19 07:24 Dose: 3 ml Atorvastatin Calcium (Lipitor) 10 mg PO HS [facility] Last Admin: 07/26/19 20:13 Dose: 10 mg Diltiazem HCl (Cardizem Cd) 120 mg PO DAILY [facility] Last Admin: 07/27/19 08:26 Dose: 120 mg Diphenhydramine HCl (Benadryl) 25 mg PO Q6H PRN PRN Reason: Itching & Insomnia Last Admin: 07/25/19 20:12 Dose: 25 mg Dronedarone (Multaq) 400 mg PO BID-WM [facility] Last Admin: 07/27/19 08:27 Dose: 400 mg Enoxaparin Sodium (Lovenox) 40 mg SC 0900 [facility] Last Admin: 07/27/19 08:28 Dose: 40 mg Famotidine (Pepcid) 20 mg PO HS [facility] Last Admin: 07/26/19 20:12 Dose: 20 mg Fluoxetine HCl (Prozac) 20 mg PO DAILY [facility] Last Admin: 07/27/19 08:27 Dose: 20 mg Gabapentin (Neurontin) 600 mg PO BID [facility] Last Admin: 07/27/19 08:26 Dose: 600 mg Hydralazine HCl (Apresoline) 10 mg SLOW IVP Q4H PRN PRN Reason: Hypertension Last Admin: 07/27/19 04:48 Dose: 10 mg Hydralazine HCl (Apresoline) 25 mg PO TID [facility] Last Admin: 07/27/19 09:58 Dose: 25 mg Labetalol HCl (Normodyne) 10 mg SLOW IVP Q4H PRN PRN Reason: SBP Greater Than 180 Last Admin: 07/24/19 14:29 Dose: 10 mg Levothyroxine Sodium (Synthroid) 125 mcg PO 0600 [facility] Last Admin: 07/27/19 04:48 Dose: 125 mcg Loperamide HCl (Imodium) 2 mg PO PRN PRN PRN Reason: Diarrhea/Loose Stools Last Admin: 07/27/19 08:27 Dose: 2 mg Melatonin (Melatonin) 3 mg PO HS PRN PRN Reason: Insomnia Last Admin: 07/26/19 22:08 Dose: 3 mg Metoprolol Tartrate (Lopressor) 25 mg PO BID [facility] Last Admin: 07/27/19 08:26 Dose: 25 mg Ondansetron HCl (Zofran) 4 mg IVP Q6H PRN PRN Reason: Nausea/Vomiting Last Admin: 07/19/19 19:40 Dose: 4 mg Sodium Chloride (Flush - Normal Saline) 10 ml IVF Q12HR [facility] Last Admin: 07/27/19 08:28 Dose: 10 ml Sodium Chloride (Flush - Normal Saline) 10 ml IVF PRN PRN PRN Reason: Saline Flush Triamcinolone Acetonide (Kenalog 0.1% Cream) 1 gm TOP BID PRN PRN Reason: Topical Irritations Last Admin: 07/24/19 20:56 Dose: 1 gm Valsartan (Diovan) 160 mg PO BID [facility] Last Admin: 07/27/19 08:26 Dose: 160 mg Vital Signs & Weight: Vital Signs Temp Pulse Resp BP BP Pulse Ox 07/27/19 09:58 70 198/80 H 07/27/19 08:26 70 198/80 H 07/27/19 07:50 98.1 F 70 18 198/80 H 90 L 07/27/19 04:48 69 188/78 H 07/27/19 04:00 97.8 F 53 L 18 188/76 H 92 L Admit Weight 210 lb 5.136 oz Weight 203 lb - Physical Exam General: alert & oriented x3 Cardiac: regular rate and rhythm, S1/S2 Lungs: clear to auscultation, decreased breath sounds Skin: clear Musculoskeletal: decreased range of motion - Labs Result Diagrams: 07/20/19 11:00 07/26/19 04:35 Troponin/CKMB Troponin I Less than 0.010 ng/mL (< 0.028) 07/17/19 09:51 - Telemetry Sinus rhythms and dysrhythmias: sinus rhythm - Assessment/Plan Assessment/Plan: 1. S/p Afib with RVR - remains in SR with Multaq, Diltaizem 120mg qd, and Metoprolol 25mg BID; Not on OAC or ASA due to hx of ABD blooding 2. HTN - will start Hydralazine 25mg TID; 3. UTI - managed by PCP 4. bilat pleural effusion - On Lasix; stable with RA 5. Chronic Diastolic HF - stable with RA; on Bblocker, ARB and Lasix 6. HLD - on Statin 7. Hypothyroidism - 8. anxiety/Depression 9. Obese MAR reviewed * Echo on 07/25/2019 with EF 55-60%, grade I dd, mild TR, mild dilated LA * the pt may d/c home once her BP is stable Pt. seen and eval. by me. I agree with the A/P by the [employer]. The BP is still an issue. Hydralazine given. Chest clear. RRR. [email or web address]
--- NOTE | 2019-07-27 11:18 | PRG ---
DATE OF SERVICE: 07/27/2019 SUBJECTIVE: She is awake, alert, responsive, no distress. No shortness of breath. No coughing. No wheezing. Vital signs are stable. OBJECTIVE: VITAL SIGNS: Temperature 98, pulse 70, blood pressure 119/80, and sats are 92% on room air. CHEST: No wheezing or crackles. CARDIAC: Normal S1 and S2. No gallops. ABDOMEN: No masses. IMPRESSION: Respiratory failure, improved; hypoventilation; hypertension; supraventricular tachycardia. Pulmonary hsieh, stable enough to discharge home. Pulmonary will follow at a distance. Please call if needed. Job ID: [id number]
[2019-07-27 11:22] VITALS: BP 134/64; TEMP 98.2
[2019-07-27] MEDS ORDERED: FLU VACC QS2019-20(6MOS UP)/PF 60 MCG/0.5 ML SYRINGE IM ONE (15:27)
[2019-07-27] MEDS: FLU VACC TS2019-20(65YR UP)/PF 180 MCG/0.5 ML SYRINGE IM ONE (16:08)
--- NOTE | 2019-07-28 02:43 | DIS ---
DATE OF ADMISSION: 07/17/2019 DATE OF DISCHARGE: 07/27/2019 FINAL DIAGNOSES: 1. Metabolic encephalopathy, resolving. 2. Atrial fibrillation, resolved. HOSPITAL COURSE: The patient being hospitalized. Conservative management was obtained. Initially, Cardizem drip was started as for the Cardiology consultation and subsequently taken off. As the patient has been improved, it has been concluded to transfer the patient to outpatient care. Initially, the stated that he may not be able to take care of the patient, but the patient insisted to go home with home health. CONDITION OF THE PATIENT AT THE TIME OF DISCHARGE: Stable, afebrile, ambulation well, tolerating diet well. DISCHARGE INSTRUCTIONS: Discharge the patient to outpatient care. DIET: Cardiac prudent. ACTIVITY: As tolerated. DISCHARGE MEDICATIONS: As per reconciliation sheet. FOLLOWUP CARE: Follow up with PCP and Cardiology as scheduled. Job ID: [id number]
== END 2019-07-27 16:18 | disposition home health service (06) | DRG 871 ==
LOC: ERS 09:27 → CCU 13:12 → 2NO 07-20 16:42
PROVIDERS: ADMIT Internal Medicine; ATTEND Internal Medicine
DX: A41.9 Sepsis, unspecified organism (principal); J96.01 Acute respiratory failure with hypoxia; G92 Toxic encephalopathy; I47.1 Supraventricular tachycardia; G82.20 Paraplegia, unspecified; N17.9 Acute kidney failure, unspecified; I50.32 Chronic diastolic (congestive) heart failure; E87.2 Acidosis; N30.00 Acute cystitis without hematuria; E03.9 Hypothyroidism, unspecified; E78.5 Hyperlipidemia, unspecified; F41.9 Anxiety disorder, unspecified; F32.9 Major depressive disorder, single episode, unspecified; K21.9 Gastro-esophageal reflux disease without esophagitis; Z66 Do not resuscitate; E87.6 Hypokalemia; I49.9 Cardiac arrhythmia, unspecified; R13.11 Dysphagia, oral phase; G47.30 Sleep apnea, unspecified; I11.0 Hypertensive heart disease with heart failure; J39.8 Other specified diseases of upper respiratory tract; M54.5 Low back pain; G89.29 Other chronic pain; I48.0 Paroxysmal atrial fibrillation; R65.20 Severe sepsis without septic shock; Z90.49 Acquired absence of other specified parts of digestive tract; Z90.710 Acquired absence of both cervix and uterus; Z88.1 Allergy status to other antibiotic agents; Z88.5 Allergy status to narcotic agent; Z88.2 Allergy status to sulfonamides
CPT/HCPCS: 36415; 36556; 51701; 71045; 74230; 80048; 80053; 80069; 80202; 81003; 81015; 82140; 82533; 82805; 83605; 83630; 83735; 83880; 84484; 85025; 85049; 85300; 85362; 85379; 85384; 85610; 85730; 86140; 87040; 87070; 87086; 87205; 87324; 87449; 90471; 90662; 93005; 93306; 96365; 96366; 96367; 96368; 96375; A4353; G0008; J0131; J0360; J0692; J1580; J1650; J1720; J1940; J2185; J2405; J2920; J3370; J3480; J3490; J7050; J7620; J7626; P9045; Q0163; S0028

== ENCOUNTER 2019-08-04 12:24 | Inpatient (IN) | payer MEDICARE, OTHER ==
--- NOTE | 2019-08-04 12:53 | RAD ---
Portable frontal chest radiograph: 08/04/2019 COMPARISON: 07/19/2019 HISTORY: Recent pneumonia, weakness FINDINGS: There is patchy increased density in the medial left lung base suggesting volume loss or in filtrate. Aeration within the left base has improved slightly since the prior exam. There is no pneumothorax. Right lung appears clear. Heart and mediastinal contours are unremarkable. There is ath erosclerotic calcification of the aortic arch. IMPRESSION: Mild persistent increased density in the left lung base as detailed above.
[2019-08-04 13:06] LABS: #Basophils 0.1 thou/uL (0.0-0.2); #Eosinphils 0.4 thou/uL (0.0-0.7); #Lymphocytes 1.7 thou/uL (1.20-3.40); #Monocytes 0.7 thou/uL (0.11-0.59); #Neutrophils 5.2 thou/uL (1.40-6.50); %Basophils 0.8 % (0.0-1.0); %Eosinophils 4.7 % (0.0-10.0); %Lymphocytes 21.1 % (21.0-51.0); %Monocytes 8.3 % (0.0-10.0); %Neutrophils 65.1 % (42.0-75.0); Hemoglobin 11.3 g/dL (12.0-16.0); Mean Corpuscular HGB CONC 32.8 g/dL (32.0-36.0); Mean Corpuscular Hemoglobin 30.6 pg (27.0-31.0); Mean Corpuscular Volume 93.3 fL (78.0-98.0); Mean Platelet Volume 7.6 fL (7.4-10.4); Platelet Count 179 thou/uL (130-400); RBC Distribution Width 14.5 % (11.5-14.5); Red Blood Cell (RBC) Count 3.69 mill/uL (4.20-5.40)
[2019-08-04 13:30] LABS: ALT (SGPT) 15 U/L (8-55); AST (SGOT) 20 U/L (5-34); Alkaline Phosphatase 112 U/L (40-110); Anion Gap 15 mmol/L (10-20); BUN (Urea Nitrogen) 26 mg/dL (9.8-20.1); Bilirubin, Total 0.4 mg/dL (0.2-1.2); Calc. Creatinine Clearance 0 mL/min (70-130); Calcium 9.1 mg/dL (7.8-10.44); Carbon Dioxide 26 mmol/L (23-31); Chloride 98 mmol/L (98-107); Estimated GFR-MDRD 28; Glucose 97 mg/dL (83-110); Potassium 5.4 mmol/L (3.5-5.1); Sodium 134 mmol/L (136-145)
[2019-08-04 14:19] LABS: Bilirubin Negative (Negative); Blood, Urine Negative (Negative); Clarity Clear (Clear); Glucose, Urine (Dipstick) Normal (Negative); Leukocyte Negative Leu/uL (Negative); Nitrite Negative (Negative); Protein, Urine (Dipstick) Negative (Neg-Trace); Urobilinogen Normal mg/dL (Less than 2)
[2019-08-04] MEDS ORDERED: Acetaminophen 325 MG TAB PO PRN (19:08)
[2019-08-04] MEDS ORDERED: Bisacodyl 10 MG SUPP PR PRN (19:08)
[2019-08-04] MEDS ORDERED: Guaifenesin DM 100-10/5 ML UDCUP PO PRN (19:08)
[2019-08-04] MEDS ORDERED: HYDROcodone/Acetaminophen 10/325 mg Tablet PO PRN (20:46)
[2019-08-04] MEDS: Sodium Chloride 0.9% 1,000 ML IV SCH (20:55)
[2019-08-04] MEDS: guaiFENesin ER 600 MG TAB PO SCH (20:56)
[2019-08-04] MEDS: Atorvastatin Calcium 10 MG TAB PO SCH (20:57)
[2019-08-04] MEDS: Metoprolol Tartrate 25 MG TAB PO SCH (20:57)
[2019-08-04] MEDS: Senokot S 8.6-50 MG TAB PO SCH (20:57)
[2019-08-04] MEDS: Doxycycline 100 MG CAP PO SCH (20:59)
[2019-08-04] MEDS: methylPREDNISolone Sod Succ 40 MG VIAL IVP SCH (20:59)
[2019-08-04] MEDS: HYDROcodone/Acetaminophen 10/325 mg Tablet PO PRN (21:01)
--- NOTE | 2019-08-04 21:02 | HP ---
REASON FOR ADMISSION: Possible aspiration pneumonia and acute respiratory failure with hypoxia. HISTORY OF PRESENTING ILLNESS: The patient was not feeling good for the last 2 days. She has also been coughing yellow sputum. She was feeling weak. measured her temperature, it was 99.4. The patient usually gets severely encephalopathic if she gets any infection, so the called EMS and the patient was brought here. The daughter, who is here at bedside, mentions that she was more drowsy and confused from yesterday. She also has issues with aspiration and does not like nectar-thick liquid diet and she tries to eat regular diet. She has had choking spells at home too. PAST MEDICAL AND SURGICAL HISTORY: The patient is completely bedbound/wheelchair-bound. She does not stand. She was recently discharged on the . She has [facility], chronic edema in both lower extremities, hypertension, hypothyroidism, dyslipidemia, cholecystectomy, appendectomy, hysterectomy, previous spine surgeries, chronic atelectasis of lower lobes, chronic anemia, depression, anxiety, and GERD. PERSONAL HISTORY: Does not abuse alcohol or drugs. No history of smoking. Lives with her . FAMILY HISTORY: Father in his 60s, had history of coronary artery disease. CURRENT MEDICATIONS: 1. Xanax 0.25 mg p.o. at bedtime. 2. Norvasc 10 mg p.o. daily. 3. Vitamin C 500 mg p.o. daily. 4. Lipitor 10 mg p.o. at bedtime. 5. Budesonide inhaler twice daily. 6. Vitamin D3 200 units daily. 7. Cardizem CD 120 mg daily. 8. Benadryl 25 mg p.o. at bedtime p.r.n. 9. Unisom sleep aid 25 mg p.o. at bedtime. 10. Nexium 40 mg p.o. q.a.m. 11. Fluoxetine 10 mg p.o. q.a.m. 12. Lasix 20 mg daily p.r.n. 13. Gabapentin, takes 1600 mg in a.m., 800 mg at noon and 1600 mg q.p.m. 14. Synthroid 125 mcg p.o. daily. 15. Bath 10/325 mg one tablet p.o. q.4 hourly p.r.n. 16. Claritin 10 mg daily. 17. Lopressor 25 mg twice daily. 18. Multivitamin one tablet once daily. 19. Oxybutynin extended release 10 mg daily. 20. K-Dur 10 mEq p.o. daily p.r.n. 21. Zantac 75 mg p.o. daily. 22. Diovan 320 mg p.o. daily. 23. Florastor 250 mg p.o. daily. ALLERGIES: THE PATIENT IS ALLERGIC TO MULTIPLE AGENTS INCLUDING PENICILLIN, QUINOLONES, CLAVULANIC ACID, CLINDAMYCIN, ERYTHROMYCIN, LATEX, METOLAZONE, NALBUPHINE, OXYCODONE, SULFA, TRIMETHOPRIM, ZOLPIDEM, ULTRAM, AND FENTANYL. CODE STATUS: The patient is do not attempt to resuscitate. This was confirmed with the patient and her daughter. REVIEW OF SYSTEMS: CONSTITUTIONAL: Negative for weight loss or gain, ability to conduct usual activities. SKIN: Negative for rash, itching. EYES: Negative for double vision, pain. ENT/MOUTH: Negative for nose bleeding, neck stiffness, pain, tenderness. CARDIOVASCULAR: Negative for palpitations, dyspnea on exertion, orthopnea. RESPIRATORY: Negative for shortness of breath, wheezing, cough, hemoptysis, fever or night sweats. GASTROINTESTINAL: Negative for poor appetite, abdominal pain, heartburn, nausea, vomiting, constipation, or diarrhea. GENITOURINARY: Negative for urgency, frequency, dysuria, nocturia. MUSCULOSKELETAL: Negative for pain, swelling. NEUROLOGIC/PSYCHIATRIC: Negative for anxiety, depression. ALLERGY/IMMUNOLOGIC: Negative for skin rash, bleeding tendency. PHYSICAL EXAMINATION: GENERAL: The patient is a 79-year-old female, who is currently awake and responds well to verbal questions. She is not in any acute distress. VITAL SIGNS: Blood pressure 114/56, pulse 62 per minute, respiratory rate 18 per minute, and temperature 98.3 degrees Fahrenheit. She was saturating 87% on room air on arrival and 92% on 4 L nasal cannula. NECK: Supple. No elevated JVD. HEENT: Eyes; extraocular muscles intact. Pupils reacting to light. Oral cavity; mucous membranes are moist, no exudates or congestion. CARDIOVASCULAR: S1 and S2 heard, regular rhythm. RESPIRATORY: Air entry 1+ bilateral. Scattered rhonchi plus no wheezes. ABDOMEN: Soft. Bowel sounds heard. No tenderness, rigidity or guarding. EXTREMITIES: Chronic edema in both lower extremities. No calf tenderness. VASCULAR: Peripheral pulses 1+ bilateral. No ischemic ulcerations or gangrene. CENTRAL NERVOUS SYSTEM: No gross focal deficits noted. The patient is alert, awake, and oriented well at present. PSYCHIATRIC: The patient's mood is euthymic. No hallucinations or delusions. LABORATORY DATA: White count of 8, H and H of 11 and 34, and platelet count 179 with 65% neutrophils. Sodium 134, potassium 5.4, serum bicarb 26, BUN 26, creatinine 1.7, and serum glucose 97. AST and ALT within normal limits. Albumin is 4.0. First set of troponin is negative. Chest x-ray done shows the patient has chronic atelectasis of lower portions of her lungs. No new changes seen on the chest x-ray. CLINICAL IMPRESSION AND PLAN: The patient will be admitted to medical floor for likely recurrent aspiration with known history of dysphagia. She was supposed to be on nectar thick liquids, but the patient does not like it and tries to consume mechanical soft diet to regular diet at times. She is chronically bedbound. We will continue all her home medication as before. She will be on DuoNeb q.6 hourly. She is needing oxygen at present, which she normally does not use at home. She has mild acute kidney injury, and we will place her on normal saline at 100 mL per hour for a total of 2 bags. We will continue her Norvasc, Lipitor, Pulmicort, Prozac, Neurontin, Synthroid, Bath, Lopressor, multivitamin, Nexium, Florastor, and Senokot. She should be on a short course of steroids IV and doxycycline 100 mg twice daily. We will continue to closely monitor her on medical floor. Job ID: [id number]
[2019-08-04] MEDS: Gabapentin 400 MG CAP PO SCH (21:05)
[2019-08-04] MEDS: ALPRAZolam 0.25 MG TAB PO SCH (22:18)
[2019-08-04] MEDS: diphenhydrAMINE 25 MG CAP PO PRN (22:18)
[2019-08-04 23:50] VITALS: BMI 32.1
[2019-08-05] MEDS: methylPREDNISolone Sod Succ 40 MG VIAL IVP SCH (05:09)
[2019-08-05] MEDS: Levothyroxine Sodium 125 MCG TAB PO SCH (05:10)
[2019-08-05] MEDS: Sodium Chloride 0.9% 1,000 ML IV SCH (05:11)
[2019-08-05 05:55] LABS: #Lymphocytes 0.7 thou/uL (1.20-3.40); #Monocytes 0.1 thou/uL (0.11-0.59); #Neutrophils 3.9 thou/uL (1.40-6.50); %Basophils 0.5 % (0.0-1.0); %Eosinophils 0.5 % (0.0-10.0); %Lymphocytes 15.3 % (21.0-51.0); %Monocytes 1.6 % (0.0-10.0); %Neutrophils 82.1 % (42.0-75.0); Hemoglobin 10.4 g/dL (12.0-16.0); Mean Corpuscular HGB CONC 31.9 g/dL (32.0-36.0); Mean Corpuscular Hemoglobin 29.7 pg (27.0-31.0); Mean Corpuscular Volume 93.1 fL (78.0-98.0); Platelet Count 171 thou/uL (130-400); RBC Distribution Width 14.4 % (11.5-14.5); Red Blood Cell (RBC) Count 3.49 mill/uL (4.20-5.40); White Blood Cell (WBC) Count 4.8 thou/uL (4.8-10.8)
[2019-08-05 06:18] LABS: Anion Gap 11 mmol/L (10-20); BUN (Urea Nitrogen) 22 mg/dL (9.8-20.1); Calc. Creatinine Clearance 44 mL/min (70-130); Calcium 8.4 mg/dL (7.8-10.44); Carbon Dioxide 26 mmol/L (23-31); Chloride 103 mmol/L (98-107); Estimated GFR-MDRD 34; Glucose 160 mg/dL (83-110); Potassium 5.5 mmol/L (3.5-5.1); Sodium 134 mmol/L (136-145)
[2019-08-05] MEDS: Budesonide 0.25 MG/2 ML NEB INH SCH ×2 (07:08→19:44)
[2019-08-05] MEDS: Oxybutynin ER 5 MG TAB PO SCH (08:33)
[2019-08-05] MEDS: Amlodipine 10 MG TAB PO SCH (08:33)
[2019-08-05] MEDS: Doxycycline 100 MG CAP PO SCH ×2 (08:33→21:07)
[2019-08-05] MEDS: Metoprolol Tartrate 25 MG TAB PO SCH ×2 (08:33→21:07)
[2019-08-05] MEDS: Senokot S 8.6-50 MG TAB PO SCH ×2 (08:33→21:07)
[2019-08-05] MEDS: Loratadine 10 MG TAB PO SCH (08:33)
[2019-08-05] MEDS: FLUoxetine HCl 10 MG CAP PO SCH (08:34)
[2019-08-05] MEDS: Multivitamin W/ Minerals 1 TAB PO SCH (08:34)
[2019-08-05] MEDS: Gabapentin 400 MG CAP PO SCH ×3 (08:34→21:06)
[2019-08-05] MEDS: Saccharomyces boulardii 250 MG CAP PO SCH (08:34)
[2019-08-05] MEDS: guaiFENesin ER 600 MG TAB PO SCH ×2 (08:34→21:07)
[2019-08-05] MEDS ORDERED: Furosemide 20 MG TAB PO PRN (09:00)
--- NOTE | 2019-08-05 16:46 | PDOC.HOSPP ---
- Subjective Encounter Date: 08/05/19 Encounter Time: 08:20 Subjective: awake and oriented no sob, feels better - Objective Vital Signs & Weight: Vital Signs (12 hours) Temp Pulse Resp BP BP Pulse Ox 08/05/19 12:00 98.3 F 74 20 126/75 97 08/05/19 08:34 74 134/73 08/05/19 08:33 70 134/73 08/05/19 08:23 97.5 F L 75 20 134/70 95 08/05/19 07:08 69 16 100 Weight Weight 200 lb 5 oz Result Diagrams: 08/05/19 05:13 08/05/19 05:13 Hospitalist ROS - Medication Medications: Active Medications Generic Name Dose Route Start Last Admin Trade Name Freq PRN Reason Stop Dose Admin Hydrocodone Bitart/Acetaminophen 1 tab 08/04/19 19:08 08/04/19 21:01 [place] 10/325 PO 1 tab Q4HR PRN Administration Moderate Pain (4-6) Alprazolam 0.25 mg 08/04/19 21:00 08/04/19 22:18 Xanax PO 0.25 mg HS JERMAINE Administration Amlodipine Besylate 10 mg 08/05/19 09:00 08/05/19 08:33 Norvasc PO 10 mg DAILY JERMAINE Administration Atorvastatin Calcium 10 mg 08/04/19 21:00 08/04/19 20:57 Lipitor PO 10 mg HS JERMAINE Administration Budesonide 0.25 mg 08/05/19 06:30 08/05/19 07:08 Pulmicort Neb Solution INH 0.25 mg BID-RT JERMAINE Administration Diltiazem HCl 120 mg 08/05/19 09:00 08/05/19 08:34 Cardizem Cd PO 120 mg DAILY JERMAINE Administration Diphenhydramine HCl 25 mg 08/04/19 20:19 08/04/19 22:18 Benadryl PO 25 mg HS PRN Administration Insomnia Doxycycline Hyclate 100 mg 08/04/19 21:00 08/05/19 08:33 Vibramycin PO 100 mg BID JERMAINE Administration Fluoxetine HCl 10 mg 08/05/19 09:00 08/05/19 08:34 Prozac PO 10 mg DAILY JERMAINE Administration Gabapentin 1,600 mg 08/04/19 21:00 08/05/19 08:34 Neurontin PO 1,600 mg BID JERMAINE Administration Gabapentin 800 mg 08/05/19 12:00 08/05/19 11:58 Neurontin PO 800 mg 1200 JERMAINE Administration Guaifenesin 600 mg 08/04/19 21:00 08/05/19 08:34 Mucinex PO 600 mg Q12HR JERMAINE Administration Iron/Minerals/Multivitamins 1 tab 08/05/19 09:00 08/05/19 08:34 Theragran M PO 1 tab DAILY JERMAINE Administration Levothyroxine Sodium 125 mcg 08/05/19 06:00 08/05/19 05:10 Synthroid PO 125 mcg 0600 JERMAINE Administration Loratadine 10 mg 08/05/19 09:00 08/05/19 08:33 Claritin PO 10 mg DAILY JERMAINE Administration Metoprolol Tartrate 25 mg 08/04/19 21:00 08/05/19 08:33 Lopressor PO 25 mg BID JERMAINE Administration Oxybutynin Chloride 10 mg 08/05/19 09:00 08/05/19 08:33 Ditropan Xl PO 10 mg DAILY JERMAINE Administration Pantoprazole Sodium 40 mg 08/05/19 09:00 08/05/19 08:34 Protonix PO 40 mg DAILY JERMAINE Administration Saccharomyces Boulardii 250 mg 08/05/19 09:00 08/05/19 08:34 Florastor PO 250 mg DAILY JERMAINE Administration Senna/Docusate Sodium 2 tab 08/04/19 21:00 08/05/19 08:33 Senokot S PO 2 tab BID JERMAINE Administration - Exam General Appearance: awake alert Eye: PERRL, anicteric sclera ENT: no oropharyngeal lesions, moist mucosa Neck: supple, no JVD Heart: no murmur, no gallops Respiratory: no wheezes, no rales Gastrointestinal: soft, non-tender, non-distended, normal bowel sounds Extremities: no cyanosis, 2+ LE edema Neurological: cranial nerve grossly intact, no focal deficits Psychiatric: normal affect, A&O x 3 Hosp A/P (1) Acute respiratory failure with hypoxia Code(s): J96.01 - ACUTE RESPIRATORY FAILURE WITH HYPOXIA Status: Resolved (2) PNA (pneumonia) Code(s): J18.9 - PNEUMONIA, UNSPECIFIED ORGANISM Status: Acute Qualifiers: Pneumonia type: aspiration pneumonia (3) Afib Code(s): I48.91 - UNSPECIFIED ATRIAL FIBRILLATION Status: Chronic Qualifiers: Atrial fibrillation type: paroxysmal (4) Anxiety and depression Code(s): F41.8 - OTHER SPECIFIED ANXIETY DISORDERS Status: Chronic (5) COPD (chronic obstructive pulmonary disease) Status: Chronic Qualifiers: COPD type: chronic bronchitis (6) Chronic low back pain Code(s): M54.5 - LOW BACK PAIN; G89.29 - OTHER CHRONIC PAIN Status: Chronic (7) GERD (gastroesophageal reflux disease) Code(s): K21.9 - GASTRO-ESOPHAGEAL REFLUX DISEASE WITHOUT ESOPHAGITIS Status: Chronic Qualifiers: Esophagitis presence: esophagitis presence not specified Qualified Code(s) : K21.9 - Gastro-esophageal reflux disease without esophagitis (8) Hypertension Code(s): I10 - ESSENTIAL (PRIMARY) HYPERTENSION Status: Chronic Qualifiers: (9) Hypothyroidism Code(s): E03.9 - HYPOTHYROIDISM, UNSPECIFIED Status: Chronic Qualifiers: (10) Obesity (BMI 30-39.9) Code(s): E66.9 - OBESITY, UNSPECIFIED Status: Chronic (11) Acute kidney injury Code(s): N17.9 - ACUTE KIDNEY FAILURE, UNSPECIFIED Status: Resolved - Plan hemostable blood cs are -ve is on doxy, nebs, asp precautions, synthroid, norvasc, cardizem cd, lipitor, neurontin, prozac, steroids creatinine has improved to 1.4 now dc plan in am h/o recurrent aspiration with dysphagia, noncompliant with diet chronic bed bound state
[2019-08-05] MEDS: HYDROcodone/Acetaminophen 10/325 mg Tablet PO PRN (19:05)
[2019-08-05] MEDS: Atorvastatin Calcium 10 MG TAB PO SCH (21:07)
[2019-08-05] MEDS: diphenhydrAMINE 25 MG CAP PO PRN (22:44)
[2019-08-05] MEDS: ALPRAZolam 0.25 MG TAB PO SCH (22:44)
[2019-08-06] MEDS: Levothyroxine Sodium 125 MCG TAB PO SCH (04:43)
[2019-08-06] MEDS: HYDROcodone/Acetaminophen 10/325 mg Tablet PO PRN (04:44)
[2019-08-06] MEDS: Budesonide 0.25 MG/2 ML NEB INH SCH (07:37)
[2019-08-06 08:33] VITALS: TEMP 97.7
[2019-08-06] MEDS: Gabapentin 400 MG CAP PO SCH ×2 (08:57→12:17)
[2019-08-06] MEDS: Doxycycline 100 MG CAP PO SCH (08:57)
[2019-08-06] MEDS: Amlodipine 10 MG TAB PO SCH (08:58)
[2019-08-06] MEDS: Metoprolol Tartrate 25 MG TAB PO SCH (08:58)
[2019-08-06] MEDS: Multivitamin W/ Minerals 1 TAB PO SCH (08:58)
[2019-08-06] MEDS: FLUoxetine HCl 10 MG CAP PO SCH (08:58)
[2019-08-06] MEDS: Oxybutynin ER 5 MG TAB PO SCH (08:58)
[2019-08-06] MEDS: Loratadine 10 MG TAB PO SCH (08:58)
[2019-08-06] MEDS: Senokot S 8.6-50 MG TAB PO SCH (08:58)
[2019-08-06] MEDS: Saccharomyces boulardii 250 MG CAP PO SCH (08:58)
[2019-08-06] MEDS: guaiFENesin ER 600 MG TAB PO SCH (08:58)
[2019-08-06 09:05] VITALS: BP 150/75
--- NOTE | 2019-08-07 11:43 | DIS ---
DATE OF ADMISSION: 08/04/2019 DATE OF DISCHARGE: 08/06/2019 PRIMARY CARE PHYSICIAN: Deepak Ricardo MD DISCHARGE DISPOSITION: To home. PRIMARY DISCHARGE DIAGNOSES: Acute respiratory failure with hypoxia, resolved. Aspiration pneumonia likely chemical pneumonitis, resolved. Paroxysmal atrial fibrillation, poor functional status with the patient bed-bound, chronic obstructive pulmonary disease, obesity, hypothyroidism, acute kidney injury on arrival resolved, chronic back pain, GERD, anxiety, and depression. PROCEDURES DONE DURING HOSPITALIZATION: Chest x-ray done showed mild persistent increased density in the left lung base, likely this is chronic. Blood cultures x2, no growth. Urine culture, no growth. White count of 4.8, H and H 10 and 32, and platelet count 171 with 82% neutrophils. Initial BUN and creatinine 26 and 1.7. Discharge BUN and creatinine 22 and 1.4. Troponin x1 negative. DISCHARGE MEDICATIONS: The patient to continue; 1. Xanax 0.25 mg p.o. at bedtime. 2. Norvasc 10 mg p.o. daily. 3. Vitamin C 500 mg p.o. daily. 4. Atorvastatin 10 mg p.o. at bedtime. 5. Budesonide nebulizer twice daily. 6. Vitamin D3 of 200 units daily. 7. Cardizem CD 120 mg p.o. daily. 8. Nexium 40 mg p.o. q.a.m. 9. Fluoxetine 10 mg p.o. daily. 10. Lasix p.r.n. 20 mg. 11. Gabapentin 1600 mg in a.m., 800 mg at noon and 1600 mg in p.m. 12. Levothyroxine 125 mcg p.o. daily. 13. Lopressor 25 mg twice daily. 14. Multivitamin one tablet once daily. 15. Oxybutynin extended release 10 mg daily. 16. K-Dur 10 mEq p.r.n. when she takes Lasix. 17. Diovan 320 mg daily. 18. Zantac 75 mg p.o. at bedtime. 19. Florastor 250 mg p.o. daily. ALLERGIES: TO MULTIPLE AGENTS INCLUDING PENICILLIN, QUINOLONES, CLINDAMYCIN, ERYTHROMYCIN, LATEX, METOLAZONE, NALBUPHINE, OXYCODONE, SULFA, TRIMETHOPRIM, ZOLPIDEM, ULTRAM, AND FENTANYL. DISCHARGE PLAN: The patient to follow up with her primary care physician, Dr. Deepak Ricardo in 1 week BRIEF COURSE DURING HOSPITALIZATION: The patient initially got admitted on the after family brought her for respiratory distress. She also had a temperature of 99.4 degrees on arrival. The patient has had known history of poor functional status and is bed-bound. She also has obesity with poor inspiratory effort. She also has a history of dysphagia and is not compliant with her thickened liquids with mechanical soft diet. In view of above history and current presentation, the patient had aspiration pneumonitis. Chest x-ray was not any different from prior x-rays. She was placed on empiric steroids, doxycycline, nebulization and nasal oxygen. She has responded well to above measures. Antibiotics have been discontinued at the time of discharge. Most of her psychotropic medications have been discontinued as well. The patient has a known aspiration risk and likely will have recurrent hospitalization for the same. She was counseled with regard to aspiration precautions at home. Full updates were given to the patient's daughter, and the patient as well. Please note, I have seen and examined the patient on the day of discharge. She needs follow up with Dr. Deepak Ricardo in 1 week. Job ID: [id number]
== END 2019-08-06 13:46 | disposition home or self-care (01) | DRG 917 ==
LOC: ERS 12:24 → T4-A 16:25
PROVIDERS: ADMIT Internal Medicine; ATTEND Internal Medicine
DX: T59.91XA Toxic effect of unspecified gases, fumes and vapors, accidental (unintentional), initial encounter (principal); J96.01 Acute respiratory failure with hypoxia; J68.0 Bronchitis and pneumonitis due to chemicals, gases, fumes and vapors; N17.9 Acute kidney failure, unspecified; I48.20 Chronic atrial fibrillation, unspecified; Z74.01 Bed confinement status; Z66 Do not resuscitate; I48.0 Paroxysmal atrial fibrillation; E66.9 Obesity, unspecified; E03.9 Hypothyroidism, unspecified; G89.29 Other chronic pain; M54.9 Dorsalgia, unspecified; K21.9 Gastro-esophageal reflux disease without esophagitis; F41.9 Anxiety disorder, unspecified; F32.9 Major depressive disorder, single episode, unspecified; E78.5 Hyperlipidemia, unspecified; Z88.2 Allergy status to sulfonamides; Z68.32 Body mass index [BMI] 32.0-32.9, adult; Z88.0 Allergy status to penicillin; Z88.1 Allergy status to other antibiotic agents; Z88.5 Allergy status to narcotic agent; Z88.8 Allergy status to other drugs, medicaments and biological substances; Z91.040 Latex allergy status; Z79.899 Other long term (current) drug therapy; Z79.51 Long term (current) use of inhaled steroids; Z91.11 Patient's noncompliance with dietary regimen
CPT/HCPCS: 36415; 36416; 51701; 71045; 80048; 80053; 81003; 84484; 85025; 87040; 87086; 93005; 94640; 94760; 96361; 96365; A4353; J1956; J2920; J7626; Q0163

== ENCOUNTER 2019-09-08 20:15 | Inpatient (IN) | payer MEDICARE, OTHER ==
[2019-09-08 21:26] LABS: #Basophils 0.1 thou/uL (0.0-0.2); #Eosinphils 0.8 thou/uL (0.0-0.7); #Monocytes 1.1 thou/uL (0.11-0.59); #Neutrophils 7.9 thou/uL (1.40-6.50); %Basophils 0.4 % (0.0-1.0); %Eosinophils 6.8 % (0.0-10.0); %Lymphocytes 17.2 % (21.0-51.0); %Monocytes 9.5 % (0.0-10.0); %Neutrophils 66.2 % (42.0-75.0); Hemoglobin 11.4 g/dL (12.0-16.0); Mean Corpuscular HGB CONC 32.9 g/dL (32.0-36.0); Mean Corpuscular Volume 91.2 fL (78.0-98.0); Mean Platelet Volume 7.2 fL (7.4-10.4); Platelet Count 259 thou/uL (130-400); RBC Distribution Width 12.9 % (11.5-14.5); White Blood Cell (WBC) Count 11.9 thou/uL (4.8-10.8)
[2019-09-08] MEDS ORDERED: Albuterol Sulfate 2.5 mg/3 ml Neb ONE (21:31)
[2019-09-08 21:48] LABS: ALT (SGPT) 10 U/L (8-55); AST (SGOT) 14 U/L (5-34); Albumin 3.6 g/dL (3.4-4.8); Alkaline Phosphatase 133 U/L (40-110); Anion Gap 13 mmol/L (10-20); BUN (Urea Nitrogen) 21 mg/dL (9.8-20.1); Bilirubin, Total 0.3 mg/dL (0.2-1.2); Calc. Creatinine Clearance 0 mL/min (70-130); Carbon Dioxide 27 mmol/L (23-31); Chloride 103 mmol/L (98-107); Estimated GFR-MDRD 31; Glucose 116 mg/dL (83-110); Potassium 4.9 mmol/L (3.5-5.1); Protein, Total 6.6 g/dL (6.0-8.3); Sodium 138 mmol/L (136-145)
--- NOTE | 2019-09-08 21:52 | RAD ---
RADIOGRAPH CHEST 1 VIEW: DATE: 09/08/2019 TIME: 8:58 PM HISTORY: 79-year-old female with pneumonia COMPARISON: 08/04/2019 FINDINGS: Lungs are hypoinflated. No pulmonary edema. No pneumothorax. Interval worsening of partial opacification of lateral left lower lobe. Some patchy high density mate rial in this area may or may not represent aspirated barium. IMPRESSION: Left lower lobe partial opacification has worsened.
[2019-09-08] MEDS ORDERED: Magnesium 2 GM/50 ML BAG (IN WATER) ONE (21:55)
[2019-09-08] MEDS ORDERED: methylPREDNISolone Sod Succ/PF 125 MG/2 ML VIAL ONE (21:55)
[2019-09-08 22:04] LABS: Bilirubin Negative (Negative); Blood, Urine Trace (Negative); Clarity Turbid (Clear); Glucose, Urine (Dipstick) Normal (Negative); Leukocyte 500 Leu/uL (Negative); Nitrite 2+ (Negative); Protein, Urine (Dipstick) 30 mg/dL (Neg-Trace); Urobilinogen Normal mg/dL (Less than 2); WBC/HPF Greater than 50 HPF (0-3)
[2019-09-08 22:12] LABS: Bacteria/HPF 4+ HPF (None Seen)
[2019-09-08 22:13] LABS: Renal Epithelial 0-3 HPF (None Seen); Squamous Epithelial 0-3 HPF (0-3)
[2019-09-08] MEDS ORDERED: Piperacillin/Tazobactam 3.375 GM VIAL ONE (22:44)
[2019-09-08] MEDS ORDERED: Vancomycin 1.5 GRAM/300 ML BAG 1.5 GM in Premix Bag 1 BAG IVPB SCH (23:00)
[2019-09-09] MEDS ORDERED: Acetaminophen 325 MG TAB PO PRN (00:57)
[2019-09-09] MEDS ORDERED: Ondansetron ODT 4 MG TAB SL PRN (00:57)
[2019-09-09] MEDS ORDERED: Ondansetron PF 4 MG/2 ML Vial IVP PRN (00:57)
[2019-09-09] MEDS ORDERED: Senokot S 8.6-50 MG TAB PO PRN (01:04)
[2019-09-09] MEDS ORDERED: Guaifenesin DM 100-10/5 ML UDCUP PO PRN (01:04)
[2019-09-09] MEDS ORDERED: Bisacodyl 10 MG SUPP PR PRN (01:04)
[2019-09-09] MEDS: Ondansetron PF 4 MG/2 ML Vial IVP PRN (01:20)
[2019-09-09] MEDS: Sodium Chloride 0.9% 1,000 ML IV SCH ×2 (01:25→16:30)
[2019-09-09] MEDS: cefTRIAXone\\ROCEPHIN 1 GM in Sodium Chloride 0.9% 100 ML IVPB SCH (01:28)
--- NOTE | 2019-09-09 02:40 | HP ---
REASON FOR ADMISSION: Acute respiratory failure with hypoxia, fever with likely aspiration. HISTORY OF PRESENTING ILLNESS: Please note majority of this history is obtained by talking to the patient's daughter who is here at bedside as the patient is bit confused and is on BiPAP. Per family, the patient had low-grade fever from last 2 days. Yesterday evening, she took Motrin and the fever came down. This morning , the fever went up to 101.4, and the patient had coughing spells, hence was brought to emergency room. She also had 2 to 3 episodes of diarrhea. They were unclear if there was blood in it. The patient was also getting increasingly drowsy, and they finally made a decision to bring her to the emergency room. The patient is currently under [facility] care and they plan on revoking it as the hospice is not allowing them to get treated for infections, which they think is reasonable. PAST MEDICAL AND SURGICAL HISTORY: Multiple hospitalizations here for similar complaints. Known history of dysphagia with aspiration, bed-bound status, hypertension, hypothyroidism, dyslipidemia, cholecystectomy, appendectomy, hysterectomy, spine surgery, chronic anemia, depression, anxiety, and GERD. FAMILY HISTORY: Father in his 60s and had history of coronary artery disease. PERSONAL HISTORY: Does not abuse alcohol or drugs. No history of smoking. Lives with her . CURRENT MEDICATIONS: The patient is on, 1. Alprazolam 0.25 mg p.o. nightly. 2. Norvasc 10 mg p.o. daily. 3. Vitamin C 500 mg p.o. daily. 4. Lipitor 10 mg p.o. nightly. 5. Budesonide inhaler twice daily. 6. Vitamin D3 200 units daily. 7. Cardizem CD 120 mg daily. 8. Nexium 40 mg daily. 9. Fluoxetine 10 mg daily. 10. Lasix 20 mg daily p.r.n. 11. K-Dur p.r.n. with Lasix. 12. Gabapentin, high dose takes 1600 mg in a.m., 800 mg at noon, and 1600 mg in the evening. 13. Synthroid 125 mcg p.o. daily. 14. Lopressor 25 mg twice daily. 15. Multivitamin one tablet once daily. 16. Oxybutynin extended release 10 mg daily. 17. Zantac 75 mg daily and nightly. 18. Valsartan 320 mg p.o. daily. 19. Mucinex 600 mg twice daily. 20. Florastor 250 mg daily. ALLERGIES: THE PATIENT IS ALLERGIC TO MULTIPLE AGENTS INCLUDING PENICILLIN, CIPROFLOXACIN, CLINDAMYCIN, ERYTHROMYCIN, LATEX, METOLAZONE, NALBUPHINE, OXYCODONE, ZOLPIDEM, ULTRAM, AND FENTANYL. CODE STATUS: The patient is a do not attempt to resuscitate this was discussed with the patient's daughter, who is here at bedside. Power of switchboard clerk is her . REVIEW OF SYSTEMS: Cannot be obtained as patient is lethargic and is on BiPAP. PHYSICAL EXAMINATION: GENERAL: The patient is a 79-year-old female, who is not in any acute distress , but is tolerating BiPAP. VITAL SIGNS: Blood pressure 142/74, pulse 90 per minute, respiratory rate 22 per minute, temperature 101.1 degrees Fahrenheit, saturating 88% on 4 L oxygen, and 100% on BiPAP. NECK: Supple. No elevated JVD. HEENT: Eyes; extraocular muscles intact. Pupils reacting to light. Oral cavity, mucous membranes are dry. No exudates or congestion. CARDIOVASCULAR: S1 and S2 heard. Regular rhythm. RESPIRATORY: Air entry 1+ bilateral. Scattered rhonchi plus bilateral. ABDOMEN: Soft. Bowel sounds heard. No tenderness, rigidity, or guarding. EXTREMITIES: Mild peripheral edema. No calf tenderness. VASCULAR: Peripheral pulses 1+ bilateral. No ischemic ulcerations or gangrene. CENTRAL NERVOUS SYSTEM: No gross focal deficits noted. The patient is very lethargic, but awakens easily to touch. PSYCHIATRIC: No obvious hallucinations or delusions. LABORATORY DATA: White count of 11, H and H 11 and 34, platelet count 259 with 66% neutrophils, MCV is 91, BUN 21, creatinine 1.6, serum bicarb 27, serum glucose 116. AST and ALT within normal limits. BNP 57. Albumin is 3.6. Troponin I x1 negative. UA shows 2+ nitrite, leukoesterase positive, greater than 50 wbc's, 4+ bacteria. Chest x-ray done shows a questionable left lower lobe infiltrate. CLINICAL IMPRESSION AND PLAN: The patient will be admitted to [facility] for acute respiratory failure with hypoxia, sepsis, possible aspiration, urinary tract infection versus chronic colonization. The patient has allergy to multiple antibiotics. She will be on ceftriaxone and vancomycin for now. She is tolerating BiPAP at present. We will keep her on clear liquid diet for now. We will continue her home dose of Norvasc, vitamin C, Lipitor, Pulmicort nebulization, DuoNeb q.6 hourly, fluoxetine, Cardizem CD, vitamin D3, Lopressor, and Synthroid. We will continue her BiPAP for now, likely, the patient will come out of BiPAP in the morning. The patient was under [facility] and then they have revoked the same for now. We will consult Dr. Farrell, who is on-call for Pulmonology. I have explained to the patient's daughter that patients who are bed-bound and wheelchair bound usually get infections with a urinary tract and are at risk for aspiration pneumonia and bedsores. Job ID: [id number] [id number]
[2019-09-09 03:58] LABS: #Basophils 0.1 thou/uL (0.0-0.2); #Eosinphils 0.1 thou/uL (0.0-0.7); #Lymphocytes 1.1 thou/uL (1.20-3.40); #Monocytes 0.2 thou/uL (0.11-0.59); #Neutrophils 12.3 thou/uL (1.40-6.50); %Basophils 0.4 % (0.0-1.0); %Eosinophils 0.4 % (0.0-10.0); %Monocytes 1.4 % (0.0-10.0); %Neutrophils 89.9 % (42.0-75.0); Hemoglobin 10.5 g/dL (12.0-16.0); Mean Corpuscular HGB CONC 32.1 g/dL (32.0-36.0); Mean Corpuscular Hemoglobin 29.4 pg (27.0-31.0); Mean Corpuscular Volume 91.7 fL (78.0-98.0); Platelet Count 220 thou/uL (130-400); RBC Distribution Width 12.8 % (11.5-14.5); Red Blood Cell (RBC) Count 3.55 mill/uL (4.20-5.40); White Blood Cell (WBC) Count 13.6 thou/uL (4.8-10.8)
[2019-09-09 04:13] LABS: Anion Gap 18 mmol/L (10-20); BUN (Urea Nitrogen) 23 mg/dL (9.8-20.1); Calc. Creatinine Clearance 39 mL/min (70-130); Calcium 8.5 mg/dL (7.8-10.44); Carbon Dioxide 19 mmol/L (23-31); Chloride 105 mmol/L (98-107); Estimated GFR-MDRD 30; Glucose 222 mg/dL (83-110); Potassium 4.7 mmol/L (3.5-5.1); Sodium 137 mmol/L (136-145)
[2019-09-09] MEDS: Acetaminophen 325 MG TAB PO PRN ×3 (04:27→22:54)
[2019-09-09] MEDS: Levothyroxine Sodium 125 MCG TAB PO SCH (04:27)
[2019-09-09] MEDS ORDERED: Non-Formulary Item 1 EACH (Esomeprazole Magnesium [Nexium] 40 MG) PO SCH (08:00)
[2019-09-09] MEDS: Budesonide 0.25 MG/2 ML NEB INH SCH ×2 (08:02→19:26)
[2019-09-09] MEDS: Ascorbic Acid 500 mg Chewable Tablet PO SCH (10:25)
[2019-09-09] MEDS: Amlodipine 10 MG TAB PO SCH (10:25)
[2019-09-09] MEDS: Cholecalciferol (Vitamin D3) 400 UNITS TAB PO SCH (10:25)
[2019-09-09] MEDS: Metoprolol Tartrate 25 MG TAB PO SCH ×2 (10:26→20:19)
[2019-09-09] MEDS: FLUoxetine HCl 10 MG CAP PO SCH (10:26)
[2019-09-09] MEDS: Multivit, Therapeutic 1 TAB PO SCH (10:26)
[2019-09-09] MEDS: Oxybutynin ER 5 MG TAB PO SCH (10:26)
[2019-09-09] MEDS: guaiFENesin ER 600 MG TAB PO SCH ×2 (10:26→20:19)
[2019-09-09] MEDS: Enoxaparin Sodium 40 MG/0.4 ML SYRINGE SC SCH (10:26)
[2019-09-09] MEDS: Saccharomyces boulardii 250 MG CAP PO SCH (10:27)
--- NOTE | 2019-09-09 10:53 | PDOC.HOSPP ---
- Subjective Encounter Date: 09/09/19 Encounter Time: 10:52 Subjective: Ms. Santizo was seen today in follow-up of respiratory failure. She is now off BiPAP and is breathing better. She does not have any new complaints. - Objective Vital Signs & Weight: Vital Signs (12 hours) Temp Pulse Resp Pulse Ox 09/09/19 10:26 90 09/09/19 10:25 90 09/09/19 08:02 90 20 97 09/09/19 07:10 97.1 F L 09/09/19 05:00 98.5 F 09/09/19 04:25 98 09/09/19 03:03 92 100 09/09/19 00:40 98.2 F Weight Weight 199 lb 11.2 oz Most Recent Monitor Data Heart Rate from ECG 83 NIBP 120/55 NIBP BP-Mean 76 Respiration from ECG 20 SpO2 96 I&O: 09/08/19 09/09/19 09/10/19 06:59 06:59 06:59 Intake Total 505 Balance 505 Result Diagrams: 09/09/19 03:36 09/09/19 03:36 Hospitalist ROS - Medication Medications: Active Medications Generic Name Dose Route Start Last Admin Trade Name Freq PRN Reason Stop Dose Admin Acetaminophen 650 mg 09/09/19 01:04 09/09/19 04:27 Tylenol PO 650 mg Q4H PRN Administration Headache/Fever/Mild Pain (1-3) Amlodipine Besylate 10 mg 09/09/19 09:00 09/09/19 10:25 Norvasc PO 10 mg DAILY JERMAINE Administration Ascorbic Acid 500 mg 09/09/19 09:00 09/09/19 10:25 Vitamin C PO 500 mg DAILY JERMAINE Administration Budesonide 0.25 mg 09/09/19 06:30 09/09/19 08:02 Pulmicort Neb Solution INH 0.25 mg BID-RT JERMAINE Administration Cholecalciferol 200 units 09/09/19 09:00 09/09/19 10:25 Vitamin D PO 200 units DAILY JERMAINE Administration Diltiazem HCl 120 mg 09/09/19 09:00 09/09/19 10:26 Cardizem Cd PO 120 mg DAILY JERMAINE Administration Enoxaparin Sodium 40 mg 09/09/19 09:00 09/09/19 10:26 Lovenox SC 40 mg 0900 JERMAINE Administration Fluoxetine HCl 10 mg 09/09/19 09:00 09/09/19 10:26 Prozac PO 10 mg DAILY JERMAINE Administration Guaifenesin 600 mg 09/09/19 09:00 09/09/19 10:26 Mucinex PO 600 mg Q12HR JERMAINE Administration Ceftriaxone Sodium 1 gm/ 100 mls @ 200 mls/hr 09/09/19 02:00 09/09/19 01:28 Sodium Chloride IVPB 100 mls Q24HR JERMAINE Administration Sodium Chloride 1,000 mls @ 70 mls/hr 09/09/19 01:04 09/09/19 01:25 Normal Saline 0.9% IV 1,000 mls .[id number] JERMAINE Administration Levothyroxine Sodium 125 mcg 09/09/19 06:00 09/09/19 04:27 Synthroid PO 125 mcg 0600 JERMAINE Administration Metoprolol Tartrate 25 mg 09/09/19 09:00 09/09/19 10:26 Lopressor PO 25 mg BID JERMAINE Administration Multivitamins 1 tab 09/09/19 09:00 09/09/19 10:26 Theragran PO 1 tab DAILY JERMAINE Administration Ondansetron HCl 4 mg 09/09/19 01:04 09/09/19 01:20 Zofran IVP 4 mg Q6H PRN Administration Nausea/Vomiting Oxybutynin Chloride 10 mg 09/09/19 09:00 09/09/19 10:26 Ditropan Xl PO 10 mg DAILY JERMAINE Administration Pantoprazole Sodium 40 mg 09/09/19 08:00 09/09/19 10:25 Protonix PO 40 mg QAM-WM JERMAINE Administration Saccharomyces Boulardii 250 mg 09/09/19 09:00 09/09/19 10:27 Florastor PO 250 mg DAILY JERMAINE Administration Sodium Chloride 10 ml 09/09/19 09:00 09/09/19 10:27 Flush - Normal Saline IVF 10 ml Q12HR JERMAINE Administration - Exam Eye: PERRL Heart: RRR, no murmur, no gallops, no rubs, normal peripheral pulses Respiratory: rales (+ bilateral rales at the bases) Gastrointestinal: soft, non-tender, non-distended, normal bowel sounds, no palpable masses, no hepatomegaly, no splenomegaly Extremities: no cyanosis, 1+ LE edema (trace pedal edema) Hosp A/P (1) PNA (pneumonia) Code(s): J18.9 - PNEUMONIA, UNSPECIFIED ORGANISM Status: Acute Qualifiers: Pneumonia type: aspiration pneumonia (2) Acute and chronic respiratory failure Code(s): J96.20 - ACUTE AND CHR RESP FAILURE, UNSP W HYPOXIA OR HYPERCAPNIA Status: Acute (3) Hypertension Code(s): I10 - ESSENTIAL (PRIMARY) HYPERTENSION Status: Chronic Qualifiers: (4) Physical deconditioning Code(s): R53.81 - OTHER MALAISE Status: Chronic (5) UTI (urinary tract infection) Status: Acute Qualifiers: Urinary tract infection type: acute cystitis Hematuria presence: without hematuria Qualified Code(s): N30.00 - Acute cystitis without hematuria - Plan * Acute respiratory failure- Chest X-ray demonstrated worsening Left lower infiltrate- will continue Rocephin and Vancomycin * She is now comfortably off BiPAP * UTI vs. Colonization- continue Rocephin * HTN- blood pressure is stable * Continue IV hydration for a bit longer * She likely can be transitioned out of the [facility]
--- NOTE | 2019-09-09 14:41 | CON ---
DATE OF CONSULTATION: 09/09/2019 CONSULTING PHYSICIAN: Desmond Cuba MD REASON FOR CONSULTATION: Acute on chronic respiratory failure and sepsis. Following encompasses 50 minutes of time, of that time, greater than 50% spent with the patient and/or the patient's unit in the hospital. HISTORY OF PRESENT ILLNESS: Ms. Santizo is known to me from past visits in the hospital. She is a patient of Dr. Hook. She had been on hospice care at home up until last night when she was brought to the hospital. The was upset because he could not get hospice out there to treat her medical problems. She developed a fever of about 101 last night along with coughing and altered mental status. She was briefly on BiPAP, but has since that has been discontinued. She is currently being treated for urosepsis. PAST MEDICAL HISTORY: 1. Tracheobronchomalacia. 2. Chronic obstructive pulmonary disease. 3. Pneumonia. 4. Clostridium difficile colitis. 5. Atrial fibrillation. 6. Hypothyroidism. 7. Lumbar spinal stenosis. 8. Hypertension. 9. Depression. 10. Anxiety. 11. Gastroesophageal reflux. PAST SURGICAL HISTORY: 1. Cholecystectomy. 2. Appendectomy. 3. Hysterectomy. 4. Lumbar spine surgery. ALLERGIES: AMOXICILLIN, CIPRO, AUGMENTIN, ERYTHROMYCIN, FENTANYL, METOLAZONE, SULFA DRUGS, TRAMADOL, AND AMBIEN. FAMILY MEDICAL HISTORY: Remarkable for coronary artery disease. SOCIAL HISTORY: Does not smoke. Does not consume alcohol. Does not use illicit drugs. REVIEW OF SYSTEMS: Cannot be obtained secondary to the patient's altered mental status. MEDICATIONS: Her current home medications include; 1. Acetaminophen. 2. Norvasc. 3. Vitamin C. 4. Lipitor. 5. Dulcolax. 6. Budesonide nebulization solution. 7. Zantac. 8. Diovan. 9. Florastor. 10. Oxybutynin. 11. Lopressor. 12. Synthroid. 13. Gabapentin. 14. Lasix. 15. Fluoxetine. 16. Nexium. 17. Diltiazem .. 18. Alprazolam. PHYSICAL EXAMINATION: VITAL SIGNS: Temperature 97.1, pulse 83, blood pressure 120/55, respiratory rate 20, and O2 saturation 96%. GENERAL: The patient is obtunded and difficult to arouse. She is breathing spontaneously. HEENT: Pupils 3 mm sluggishly. Oropharynx dry. NECK: No adenopathy or JVD. LUNGS: Coarse breath sounds. CARDIOVASCULAR: S1 and S2. Regular. ABDOMEN: Soft and nontender. EXTREMITIES: No edema. LABORATORY DATA: Her chest x-ray shows a left lower lobe infiltrate. Microcultures show no growth to-date. White blood cell count is 13.6, hematocrit 32.6, and platelet count 220. Sodium 137, potassium 4.7, chloride 105, CO2 of 19, BUN 23, creatinine 1.6, and glucose 222. Urinalysis shows greater than 50 white blood cells. ASSESSMENT: 1. Left lower lobe pneumonia. 2. Urinary tract infection. 3. Sepsis syndrome. 4. Acute on chronic respiratory failure. 5. Multiple medical problems as listed above. PLAN: She is receiving IV antibiotics, IV fluids, and BiPAP as needed. Her prognosis is very poor. I spent a concerned amount of time with the daughter. I think that the family is realistic in terms of expectations, but need more help in caring for the mother at home. Job ID: [id number]
[2019-09-09] MEDS: Atorvastatin Calcium 10 MG TAB PO SCH (20:19)
[2019-09-09] MEDS: ALPRAZolam 0.25 MG TAB PO PRN (22:54)
[2019-09-09] MEDS: Vancomycin HCl 1 GM in Premix Bag 1 BAG IVPB SCH (23:00)
[2019-09-10] MEDS: cefTRIAXone\\ROCEPHIN 1 GM in Sodium Chloride 0.9% 100 ML IVPB SCH (01:44)
[2019-09-10 04:29] LABS: Anion Gap 12 mmol/L (10-20); BUN (Urea Nitrogen) 22 mg/dL (9.8-20.1); Calc. Creatinine Clearance 48 mL/min (70-130); Calcium 8.4 mg/dL (7.8-10.44); Carbon Dioxide 23 mmol/L (23-31); Chloride 108 mmol/L (98-107); Estimated GFR-MDRD 38; Glucose 135 mg/dL (83-110); Potassium 4.7 mmol/L (3.5-5.1); Sodium 138 mmol/L (136-145)
[2019-09-10 04:30] LABS: Band 3 % (5-11); Lymphocytes 10 % (21-51); MDiff Complete? YES; Mean Corpuscular HGB CONC 32.3 g/dL (32.0-36.0); Mean Corpuscular Hemoglobin 29.8 pg (27.0-31.0); Mean Corpuscular Volume 92.3 fL (78.0-98.0); Mean Platelet Volume 7.7 fL (7.4-10.4); Monocytes 8 % (0-10); Neutrophil 79 % (42-75); Platelet Count 221 thou/uL (130-400); Platelet Morphology Comment Appears Adequate; Red Blood Cell (RBC) Count 3.34 mill/uL (4.20-5.40); White Blood Cell (WBC) Count 21.1 thou/uL (4.8-10.8)
[2019-09-10] MEDS: Levothyroxine Sodium 125 MCG TAB PO SCH (05:45)
[2019-09-10] MEDS: Budesonide 0.25 MG/2 ML NEB INH SCH ×2 (06:52→18:45)
[2019-09-10] MEDS: Ascorbic Acid 500 mg Chewable Tablet PO SCH (09:18)
[2019-09-10] MEDS: Amlodipine 10 MG TAB PO SCH (09:18)
[2019-09-10] MEDS: guaiFENesin ER 600 MG TAB PO SCH ×2 (09:19→20:28)
[2019-09-10] MEDS: FLUoxetine HCl 10 MG CAP PO SCH (09:19)
[2019-09-10] MEDS: Metoprolol Tartrate 25 MG TAB PO SCH ×2 (09:19→20:28)
[2019-09-10] MEDS: Enoxaparin Sodium 40 MG/0.4 ML SYRINGE SC SCH (09:19)
[2019-09-10] MEDS: Cholecalciferol (Vitamin D3) 400 UNITS TAB PO SCH (09:19)
[2019-09-10] MEDS: Multivit, Therapeutic 1 TAB PO SCH (09:20)
[2019-09-10] MEDS: Oxybutynin ER 5 MG TAB PO SCH (09:21)
--- NOTE | 2019-09-10 09:21 | PRG ---
DATE OF SERVICE: 09/10/2019 SUBJECTIVE: Cecilia Santizo is a 79-year-old female. She is awake, alert, and responsive. She is readmitted to the hospital with cough and shortness of breath. X-ray shows left-sided infiltrate. This morning, she is eating breakfast. No distress. OBJECTIVE: VITAL SIGNS: Saturations are 93% on 2 L, temperature 97, blood pressure is 136/62, pulse 80, and respiratory rate 20. CHEST: Decreased breath sounds. Minimal rhonchi. CARDIAC: Normal S1 and S2. No gallops. ABDOMEN: Soft. [place]: [place] [address], platelet count normal. Creatinine 1.35. She is on Rocephin and vancomycin. So far, sputum cultures are negative. She is on Pulmicort neb treatment. Urinary showing Citrobacter, sensitive to pretty much all the antibiotics. Recurrent aspiration pneumonia, urinary tract infection, severe deconditioning, bedridden. I agree with present treatment. I have added nebs to her Pulmicort. We will follow. Job ID: [id number]
[2019-09-10] MEDS: Saccharomyces boulardii 250 MG CAP PO SCH (09:22)
--- NOTE | 2019-09-10 09:45 | PDOC.HOSPP ---
- Subjective Encounter Date: 09/10/19 Encounter Time: 09:43 Subjective: Ms. Santizo was seen today in follow-up of respiratory failure and UTI. She looks and feels better today. No new complaints. - Objective Vital Signs & Weight: Vital Signs (12 hours) Temp Pulse Resp Pulse Ox 09/10/19 09:19 80 09/10/19 09:18 80 09/10/19 08:00 93 L 09/10/19 07:29 97.9 F 09/10/19 06:52 80 20 92 L 09/10/19 04:00 99.0 F 09/10/19 00:00 98.8 F Weight Weight 204 lb 8 oz Most Recent Monitor Data Heart Rate from ECG 66 NIBP 136/62 NIBP BP-Mean 86 Respiration from ECG 18 SpO2 93 I&O: 09/09/19 09/10/19 09/11/19 06:59 06:59 06:59 Intake Total 505 2400 Balance 505 2400 Result Diagrams: 09/10/19 03:43 09/10/19 03:43 Hospitalist ROS - Medication Medications: Active Medications Generic Name Dose Route Start Last Admin Trade Name Freq PRN Reason Stop Dose Admin Acetaminophen 650 mg 09/09/19 01:04 09/09/19 22:54 Tylenol PO 650 mg Q4H PRN Administration Headache/Fever/Mild Pain (1-3) Alprazolam 0.25 mg 09/09/19 22:46 09/09/19 22:54 Xanax PO 0.25 mg HS PRN Administration Insomnia Amlodipine Besylate 10 mg 09/09/19 09:00 09/10/19 09:18 Norvasc PO 10 mg DAILY JERMAINE Administration Ascorbic Acid 500 mg 09/09/19 09:00 09/10/19 09:18 Vitamin C PO 500 mg DAILY JERMAINE Administration Atorvastatin Calcium 10 mg 09/09/19 21:00 09/09/19 20:19 Lipitor PO 10 mg HS JERMAINE Administration Budesonide 0.25 mg 09/09/19 06:30 09/10/19 06:52 Pulmicort Neb Solution INH 0.25 mg BID-RT JERMAINE Administration Cholecalciferol 200 units 09/09/19 09:00 09/10/19 09:19 Vitamin D PO 200 units DAILY JERMAINE Administration Diltiazem HCl 120 mg 09/09/19 09:00 09/10/19 09:19 Cardizem Cd PO 120 mg DAILY JERMAINE Administration Enoxaparin Sodium 40 mg 09/09/19 09:00 09/10/19 09:19 Lovenox SC 40 mg 0900 JERMAINE Administration Fluoxetine HCl 10 mg 09/09/19 09:00 09/10/19 09:19 Prozac PO 10 mg DAILY JERMAINE Administration Guaifenesin 600 mg 09/09/19 09:00 09/10/19 09:19 Mucinex PO 600 mg Q12HR JERMAINE Administration Guaifenesin/Dextromethorphan 15 ml 09/09/19 01:04 09/10/19 01:45 Robitussin Dm PO 15 ml Q4H PRN Administration Cough Ceftriaxone Sodium 1 gm/ 100 mls @ 200 mls/hr 09/09/19 02:00 09/10/19 01:44 Sodium Chloride IVPB 100 mls Q24HR JERMAINE Administration Vancomycin HCl 1 gm/ Device 200 mls @ 200 mls/hr 09/09/19 23:59 09/09/19 23: 00 IVPB 200 mls Q24HR@2359 JERMAINE Administration Levothyroxine Sodium 125 mcg 09/09/19 06:00 09/10/19 05:45 Synthroid PO 125 mcg 0600 JERMAINE Administration Metoprolol Tartrate 25 mg 09/09/19 09:00 09/10/19 09:19 Lopressor PO 25 mg BID JERMAINE Administration Multivitamins 1 tab 09/09/19 09:00 09/10/19 09:20 Theragran PO 1 tab DAILY JERMAINE Administration Ondansetron HCl 4 mg 09/09/19 01:04 09/09/19 01:20 Zofran IVP 4 mg Q6H PRN Administration Nausea/Vomiting Oxybutynin Chloride 10 mg 09/09/19 09:00 09/10/19 09:21 Ditropan Xl PO 5 mg DAILY JERMAINE Administration Pantoprazole Sodium 40 mg 09/09/19 08:00 09/10/19 09:18 Protonix PO 40 mg QAM-WM JERMAINE Administration Saccharomyces Boulardii 250 mg 09/09/19 09:00 09/10/19 09:22 Florastor PO 250 mg DAILY JERMAINE Administration Sodium Chloride 10 ml 09/09/19 09:00 09/10/19 09:22 Flush - Normal Saline IVF 10 ml Q12HR JERMAINE Administration - Exam Eye: PERRL Heart: RRR, no murmur, no gallops, no rubs, normal peripheral pulses Respiratory: CTAB (decreased breath sounds at the bases), no wheezes, no rales, no ronchi, normal chest expansion Gastrointestinal: soft, non-tender, non-distended, normal bowel sounds, no palpable masses, no hepatomegaly Extremities: 1+ LE edema (non- pitting edema in both lower extremities) Hosp A/P (1) PNA (pneumonia) Code(s): J18.9 - PNEUMONIA, UNSPECIFIED ORGANISM Status: Acute Qualifiers: Pneumonia type: aspiration pneumonia (2) Acute and chronic respiratory failure Code(s): J96.20 - ACUTE AND CHR RESP FAILURE, UNSP W HYPOXIA OR HYPERCAPNIA Status: Acute (3) Hypertension Code(s): I10 - ESSENTIAL (PRIMARY) HYPERTENSION Status: Chronic Qualifiers: (4) Physical deconditioning Code(s): R53.81 - OTHER MALAISE Status: Chronic (5) UTI (urinary tract infection) Status: Acute Qualifiers: Urinary tract infection type: acute cystitis Hematuria presence: without hematuria Qualified Code(s): N30.00 - Acute cystitis without hematuria - Plan * Acute respiratory failure due to Left Lower lobe pneumonia- continue Rocephin and Vancomycin * She is now comfortably off BiPAP * UTI vs. Colonization- continue Rocephin * HTN- blood pressure is stable * Continue IV hydration for a bit longer * Will transfer to the Medical floor * Hopefully home in a day or two * PT to help mobilize
[2019-09-10 14:42] VITALS: BMI 33.0
[2019-09-10] MEDS: Atorvastatin Calcium 10 MG TAB PO SCH (20:28)
[2019-09-10] MEDS: ALPRAZolam 0.25 MG TAB PO PRN (23:42)
[2019-09-10] MEDS: Acetaminophen 325 MG TAB PO PRN (23:42)
[2019-09-10] MEDS: Vancomycin HCl 1 GM in Premix Bag 1 BAG IVPB SCH (23:43)
[2019-09-11] MEDS: cefTRIAXone\\ROCEPHIN 1 GM in Sodium Chloride 0.9% 100 ML IVPB SCH (02:42)
[2019-09-11] MEDS: Levothyroxine Sodium 125 MCG TAB PO SCH (05:29)
[2019-09-11 05:54] LABS: #Eosinphils 0.3 thou/uL (0.0-0.7); #Lymphocytes 2.3 thou/uL (1.20-3.40); #Monocytes 1.1 thou/uL (0.11-0.59); #Neutrophils 10.5 thou/uL (1.40-6.50); %Basophils 0.3 % (0.0-1.0); %Lymphocytes 16.1 % (21.0-51.0); %Neutrophils 73.6 % (42.0-75.0); Hemoglobin 11.2 g/dL (12.0-16.0); Mean Corpuscular HGB CONC 32.6 g/dL (32.0-36.0); Mean Corpuscular Hemoglobin 29.7 pg (27.0-31.0); Mean Corpuscular Volume 91.1 fL (78.0-98.0); Mean Platelet Volume 7.2 fL (7.4-10.4); Platelet Count 246 thou/uL (130-400); RBC Distribution Width 12.9 % (11.5-14.5); Red Blood Cell (RBC) Count 3.78 mill/uL (4.20-5.40); White Blood Cell (WBC) Count 14.2 thou/uL (4.8-10.8)
[2019-09-11 06:13] LABS: Anion Gap 10 mmol/L (10-20); BUN (Urea Nitrogen) 16 mg/dL (9.8-20.1); Calc. Creatinine Clearance 59 mL/min (70-130); Calcium 9.2 mg/dL (7.8-10.44); Carbon Dioxide 28 mmol/L (23-31); Chloride 107 mmol/L (98-107); Estimated GFR-MDRD 46; Glucose 97 mg/dL (83-110); Sodium 141 mmol/L (136-145)
--- NOTE | 2019-09-11 07:02 | PDOC.HOSPP ---
- Subjective Encounter Date: 09/11/19 Encounter Time: 06:30 Subjective: Ms. Santizo is a 79 y/o female on day #3 of admission for acute resp failure d/ t left lower lobe pneumonia and UTI. She had an episode of non-bloody diarrhea yesterday and clostridium difficile toxin test results are pending. She has not has a bowel movement since yesterday. She denies nausea or vomiting. She still has a productive cough, but denies shortness of breath or chest pain. No other complaints at this time. - Objective Vital Signs & Weight: Vital Signs (12 hours) Pulse Ox 09/10/19 20:00 94 L Weight Admit Weight 92.76 kg Weight 92.76 kg Most Recent Monitor Data Heart Rate from ECG 52 NIBP 113/63 NIBP BP-Mean 79 Respiration from ECG 17 SpO2 96 I&O: 09/09/19 09/10/19 09/11/19 06:59 06:59 06:59 Intake Total 505 2400 240 Balance 505 2400 240 Result Diagrams: 09/11/19 05:36 09/11/19 05:36 Hospitalist ROS - Review of Systems ENT: denies: throat pain Respiratory: reports: cough, sputum. denies: shortness of breath, hemoptysis Cardiovascular: denies: chest pain, palpitations Gastrointestinal: reports: diarrhea. denies: nausea, vomiting, abdominal pain Neurological: denies: confusion - Medication Medications: Active Medications Generic Name Dose Route Start Last Admin Trade Name Freq PRN Reason Stop Dose Admin Acetaminophen 650 mg 09/09/19 01:04 09/10/19 23:42 Tylenol PO 650 mg Q4H PRN Administration Headache/Fever/Mild Pain (1-3) Albuterol/Ipratropium 3 ml 09/10/19 13:00 09/10/19 18:46 Duoneb NEB 3 ml [id number] JERMAINE Administration Alprazolam 0.25 mg 09/09/19 22:46 09/10/19 23:42 Xanax PO 0.25 mg HS PRN Administration Insomnia Amlodipine Besylate 10 mg 09/09/19 09:00 09/10/19 09:18 Norvasc PO 10 mg DAILY JERMAINE Administration Ascorbic Acid 500 mg 09/09/19 09:00 09/10/19 09:18 Vitamin C PO 500 mg DAILY JERMAINE Administration Atorvastatin Calcium 10 mg 09/09/19 21:00 09/10/19 20:28 Lipitor PO 10 mg HS JERMAINE Administration Budesonide 0.25 mg 09/09/19 06:30 09/10/19 18:45 Pulmicort Neb Solution INH 0.25 mg BID-RT JERMAINE Administration Cholecalciferol 200 units 09/09/19 09:00 09/10/19 09:19 Vitamin D PO 200 units DAILY JERMAINE Administration Diltiazem HCl 120 mg 09/09/19 09:00 09/10/19 09:19 Cardizem Cd PO 120 mg DAILY JERMAINE Administration Enoxaparin Sodium 40 mg 09/09/19 09:00 09/10/19 09:19 Lovenox SC 40 mg 0900 JERMAINE Administration Fluoxetine HCl 10 mg 09/09/19 09:00 09/10/19 09:19 Prozac PO 10 mg DAILY JERMAINE Administration Guaifenesin 600 mg 09/09/19 09:00 09/10/19 20:28 Mucinex PO 600 mg Q12HR JERMAINE Administration Guaifenesin/Dextromethorphan 15 ml 09/09/19 01:04 09/10/19 01:45 Robitussin Dm PO 15 ml Q4H PRN Administration Cough Ceftriaxone Sodium 1 gm/ 100 mls @ 200 mls/hr 09/09/19 02:00 09/11/19 02:42 Sodium Chloride IVPB 100 mls Q24HR JERMAINE Administration Vancomycin HCl 1 gm/ Device 200 mls @ 200 mls/hr 09/09/19 23:59 09/10/19 23: 43 IVPB 200 mls Q24HR@2359 JERMAINE Administration Levothyroxine Sodium 125 mcg 09/09/19 06:00 09/11/19 05:29 Synthroid PO 125 mcg 0600 JERMAINE Administration Metoprolol Tartrate 25 mg 09/09/19 09:00 09/10/19 20:28 Lopressor PO 25 mg BID JERMAINE Administration Multivitamins 1 tab 09/09/19 09:00 09/10/19 09:20 Theragran PO 1 tab DAILY JERMAINE Administration Ondansetron HCl 4 mg 09/09/19 01:04 09/09/19 01:20 Zofran IVP 4 mg Q6H PRN Administration Nausea/Vomiting Oxybutynin Chloride 10 mg 09/09/19 09:00 09/10/19 09:21 Ditropan Xl PO 5 mg DAILY JERMAINE Administration Pantoprazole Sodium 40 mg 09/09/19 08:00 09/10/19 09:18 Protonix PO 40 mg QAM-WM JERMAINE Administration Saccharomyces Boulardii 250 mg 09/09/19 09:00 09/10/19 09:22 Florastor PO 250 mg DAILY JERMAINE Administration Sodium Chloride 10 ml 09/09/19 09:00 09/10/19 20:34 Flush - Normal Saline IVF 10 ml Q12HR JERMAINE Administration - Exam General Appearance: NAD, awake alert Eye: anicteric sclera ENT: moist mucosa Neck: supple, no lymphadenopathy Heart - other findings: stethoscope not in room (contact precautions) Respiratory: no tachypnea Respiratory - other findings: stethoscope not in room (contact precautions) Gastrointestinal: soft, non-tender, non-distended, no hepatomegaly, no splenomegaly, no guarding, no rigidity Extremities: no cyanosis, no edema Hosp A/P (1) Acute respiratory failure with hypoxia Code(s): J96.01 - ACUTE RESPIRATORY FAILURE WITH HYPOXIA Status: Resolved (2) UTI (urinary tract infection) Status: Acute Qualifiers: Urinary tract infection type: acute cystitis Hematuria presence: without hematuria Qualified Code(s): N30.00 - Acute cystitis without hematuria (3) Hypertension Code(s): I10 - ESSENTIAL (PRIMARY) HYPERTENSION Status: Chronic Qualifiers: (4) Hypothyroidism Code(s): E03.9 - HYPOTHYROIDISM, UNSPECIFIED Status: Chronic Qualifiers: - Plan Ms. Santizo is on hospital day #3 for acute respiratory failure d/t LLL pneumonia and UTI and had a single episode of diarrhea yesterday, but is otherwise recovering well. -Left lower lobe pneumonia: Continue Rocephin and Vacomycin for at least one more day. Continue budesonide and monitor for WBC to return to wnl. Today the WBC was 14.2 (down from 21.1). -UTI: continue rocephin for another day to complete 3 day course. -Diarrhea: She had only one episode of diarrhea and has been put on contact precautions. Her abdomen is non-tender and she is not complaining of abdominal pain. Plan is to monitor for improvement and await results of C-diff stool toxin. If C-diff toxin results come back as a positive, will start oral vancomycin. -HTN: today BP was stable, continue home medications. -Other: continue home meds for hypothyroidism and depression. Agree with above. Patient seen and examined with Bradley Tompkins MS-3. She says she still feels very weak. She has not had any diarrhea today. Lungs- clear Pneumonia- will continue IV antibiotics for now. Once she is discharged will transition to an oral antibiotic Discharge plans discussed with the patient and her . They are no longer interested in Hospice, and would like to resume home health with [facility]. The patient is also not interested in halfway as well. Will evaluate her for home oxygen.
[2019-09-11] MEDS: Budesonide 0.25 MG/2 ML NEB INH SCH ×2 (07:08→19:21)
[2019-09-11] MEDS: Ascorbic Acid 500 mg Chewable Tablet PO SCH (08:03)
[2019-09-11] MEDS: Amlodipine 10 MG TAB PO SCH (08:03)
[2019-09-11] MEDS: guaiFENesin ER 600 MG TAB PO SCH ×2 (08:04→20:26)
[2019-09-11] MEDS: Enoxaparin Sodium 40 MG/0.4 ML SYRINGE SC SCH (08:04)
[2019-09-11] MEDS: FLUoxetine HCl 10 MG CAP PO SCH (08:04)
[2019-09-11] MEDS: Saccharomyces boulardii 250 MG CAP PO SCH (08:05)
[2019-09-11] MEDS: Oxybutynin ER 5 MG TAB PO SCH (08:05)
[2019-09-11] MEDS: Metoprolol Tartrate 25 MG TAB PO SCH ×2 (08:05→20:26)
[2019-09-11] MEDS: Multivit, Therapeutic 1 TAB PO SCH (08:05)
[2019-09-11] MEDS: Cholecalciferol (Vitamin D3) 400 UNITS TAB PO SCH (10:22)
--- NOTE | 2019-09-11 10:45 | PRG ---
DATE OF SERVICE: 09/11/2019 SUBJECTIVE: This morning, she is awake, alert, and responsive. Less short of breath. OBJECTIVE: VITAL SIGNS: Saturations are 95% on 2 L, temperature 98, pulse 77, blood pressure 120/69, and respiratory rate 18. CHEST: No wheezing or crackles. CARDIAC: Normal S1 and S2. No gallops. ABDOMEN: No masses. ASSESSMENT AND PLAN: Recurrent urinary tract infection, recurrent aspiration, severe deconditioning, and essentially paraplegic. Pulmonary hsieh, she is stable enough, never mind to be discharged home. Switch over to oral medication. PT and supportive care. Job ID: [id number]
[2019-09-11] MEDS: Cefdinir 300 MG CAP PO SCH (20:26)
[2019-09-11] MEDS: Atorvastatin Calcium 10 MG TAB PO SCH (20:27)
[2019-09-11] MEDS: Acetaminophen 325 MG TAB PO PRN (22:10)
[2019-09-11] MEDS: ALPRAZolam 0.25 MG TAB PO PRN (22:10)
[2019-09-12] MEDS ORDERED: Levothyroxine Sodium 125 MCG TAB ONE (04:45)
[2019-09-12] MEDS: Levothyroxine Sodium 125 MCG TAB PO SCH (05:10)
[2019-09-12] MEDS: Budesonide 0.25 MG/2 ML NEB INH SCH ×2 (07:54→19:26)
[2019-09-12] MEDS: Ascorbic Acid 500 mg Chewable Tablet PO SCH (08:24)
[2019-09-12] MEDS: Metoprolol Tartrate 25 MG TAB PO SCH ×2 (08:24→21:12)
[2019-09-12] MEDS: FLUoxetine HCl 10 MG CAP PO SCH (08:24)
[2019-09-12] MEDS: Oxybutynin ER 5 MG TAB PO SCH (08:24)
[2019-09-12] MEDS: Cefdinir 300 MG CAP PO SCH ×2 (08:24→21:12)
[2019-09-12] MEDS: Multivit, Therapeutic 1 TAB PO SCH (08:24)
[2019-09-12] MEDS: guaiFENesin ER 600 MG TAB PO SCH ×2 (08:24→21:12)
[2019-09-12] MEDS: Amlodipine 10 MG TAB PO SCH (08:24)
[2019-09-12] MEDS: Saccharomyces boulardii 250 MG CAP PO SCH (08:24)
[2019-09-12] MEDS: Cholecalciferol (Vitamin D3) 400 UNITS TAB PO SCH (08:26)
--- NOTE | 2019-09-12 13:35 | PRG ---
DATE OF SERVICE: 09/12/2019 SUBJECTIVE: Cecilia Santizo wants to go home today. She is better, less short of breath. OBJECTIVE: VITAL SIGNS: Saturations are 93% on 2 L, respiratory rate 18, temperature 97, pulse 74, blood pressure 147/81. CHEST: Decreased breath sounds, no wheezing. CARDIAC: Normal S1, S2. No gallops. ABDOMEN: No masses. IMPRESSION: 1. Urinary tract infection. 2. Chronic obstructive pulmonary disease. 3. Pneumonia. 4. Recurrent aspiration, severe deconditioning. DISPOSITION: Home any time. Follow up as needed. Job ID: [id number]
[2019-09-12] MEDS: Ondansetron PF 4 MG/2 ML Vial IVP PRN (14:27)
[2019-09-12] MEDS: Enoxaparin Sodium 40 MG/0.4 ML SYRINGE SC SCH (14:56)
--- NOTE | 2019-09-12 15:23 | PDOC.HOSPP ---
- Subjective Encounter Date: 09/12/19 Encounter Time: 15:13 Subjective: Ms. Santizo was seen today in follow-up of pneumonia and respiratory failure. She sayas she feels better, she is not short of breath. She wants to go home. - Objective Vital Signs & Weight: Vital Signs (12 hours) Temp Pulse Resp BP Pulse Ox 09/12/19 12:45 97.9 F 84 20 147/81 H 93 L 09/12/19 08:26 84 09/12/19 08:24 84 09/12/19 07:54 95 Weight Admit Weight 204 lb 8 oz Weight 204 lb 8 oz Most Recent Monitor Data Heart Rate from ECG 52 NIBP 113/63 NIBP BP-Mean 79 Respiration from ECG 17 SpO2 96 I&O: 09/11/19 09/12/19 09/13/19 06:59 06:59 06:59 Intake Total 240 1100 Balance 240 1100 Result Diagrams: 09/11/19 05:36 09/11/19 05:36 Hospitalist ROS - Medication Medications: Active Medications Generic Name Dose Route Start Last Admin Trade Name Freq PRN Reason Stop Dose Admin Acetaminophen 650 mg 09/09/19 01:04 09/11/19 22:10 Tylenol PO 650 mg Q4H PRN Administration Headache/Fever/Mild Pain (1-3) Albuterol/Ipratropium 3 ml 09/10/19 13:00 09/12/19 13:35 Duoneb NEB 3 ml [id number] JERMAINE Administration Alprazolam 0.25 mg 09/09/19 22:46 09/11/19 22:10 Xanax PO 0.25 mg HS PRN Administration Insomnia Amlodipine Besylate 10 mg 09/09/19 09:00 09/12/19 08:24 Norvasc PO 10 mg DAILY JERMAINE Administration Ascorbic Acid 500 mg 09/09/19 09:00 09/12/19 08:24 Vitamin C PO 500 mg DAILY JERMAINE Administration Atorvastatin Calcium 10 mg 09/09/19 21:00 09/11/19 20:27 Lipitor PO 10 mg HS JERMAINE Administration Budesonide 0.25 mg 09/09/19 06:30 09/12/19 07:54 Pulmicort Neb Solution INH 0.25 mg BID-RT JERMAINE Administration Cefdinir 300 mg 09/11/19 21:00 09/12/19 08:24 Omnicef PO 09/16/19 21:01 300 mg BID JERMAINE Administration Cholecalciferol 200 units 09/09/19 09:00 09/12/19 08:26 Vitamin D PO 200 units DAILY JERMAINE Administration Diltiazem HCl 120 mg 09/09/19 09:00 09/12/19 08:26 Cardizem Cd PO 120 mg DAILY JERMAINE Administration Enoxaparin Sodium 40 mg 09/09/19 09:00 09/12/19 14:56 Lovenox SC Not Given 09 JERMAINE Fluoxetine HCl 10 mg 09/09/19 09:00 09/12/19 08:24 Prozac PO 10 mg DAILY JERMAINE Administration Guaifenesin 600 mg 09/09/19 09:00 09/12/19 08:24 Mucinex PO 600 mg Q12HR [facility] Administration Guaifenesin/Dextromethorphan 15 ml 09/09/19 01:04 09/10/19 01:45 Robitussin Dm PO 15 ml Q4H PRN Administration Cough Levothyroxine Sodium 125 mcg 09/09/19 06:00 09/12/19 05:10 Synthroid PO 125 mcg 0600 [facility] Administration Metoprolol Tartrate 25 mg 09/09/19 09:00 09/12/19 08:24 Lopressor PO 25 mg BID [facility] Administration Multivitamins 1 tab 09/09/19 09:00 09/12/19 08:24 Theragran PO 1 tab DAILY [facility] Administration Ondansetron HCl 4 mg 09/09/19 01:04 09/12/19 14:27 Zofran IVP 4 mg Q6H PRN Administration Nausea/Vomiting Oxybutynin Chloride 10 mg 09/09/19 09:00 09/12/19 08:24 Ditropan Xl PO Not Given DAILY [facility] Pantoprazole Sodium 40 mg 09/09/19 08:00 09/12/19 08:26 Protonix PO 40 mg QAM-WM [facility] Administration Saccharomyces Boulardii 250 mg 09/09/19 09:00 09/12/19 08:24 Florastor PO 250 mg DAILY [facility] Administration Sodium Chloride 10 ml 09/09/19 09:00 09/12/19 08:24 Flush - Normal Saline IVF 10 ml Q12HR JERMAINE Administration - Exam Eye: PERRL Heart: RRR, no murmur, no gallops, no rubs, normal peripheral pulses Respiratory: CTAB, no wheezes, no rales, no ronchi, normal chest expansion, no tachypnea, normal percussion Gastrointestinal: soft, non-tender, non-distended, normal bowel sounds Extremities: no cyanosis, 1+ LE edema Hosp A/P (1) Acute respiratory failure with hypoxia Code(s): J96.01 - ACUTE RESPIRATORY FAILURE WITH HYPOXIA Status: Resolved (2) UTI (urinary tract infection) Status: Acute Qualifiers: Urinary tract infection type: acute cystitis Hematuria presence: without hematuria Qualified Code(s): N30.00 - Acute cystitis without hematuria (3) Hypertension Code(s): I10 - ESSENTIAL (PRIMARY) HYPERTENSION Status: Chronic Qualifiers: (4) Hypothyroidism Code(s): E03.9 - HYPOTHYROIDISM, UNSPECIFIED Status: Chronic Qualifiers: - Plan Pneumonia- will transition her to an oral antibiotic Will arrange for home oxygen Stable for discharge home
[2019-09-12] MEDS: Atorvastatin Calcium 10 MG TAB PO SCH (21:12)
[2019-09-12] MEDS: ALPRAZolam 0.25 MG TAB PO PRN (23:03)
[2019-09-12] MEDS: Acetaminophen 325 MG TAB PO PRN (23:03)
[2019-09-13] MEDS ORDERED: ALPRAZolam 0.25 MG TAB PO SCH (02:30)
[2019-09-13] MEDS: Levothyroxine Sodium 125 MCG TAB PO SCH (05:32)
[2019-09-13] MEDS: Budesonide 0.25 MG/2 ML NEB INH SCH (07:21)
[2019-09-13] MEDS: Multivit, Therapeutic 1 TAB PO SCH (08:49)
[2019-09-13] MEDS: Cefdinir 300 MG CAP PO SCH (08:49)
[2019-09-13] MEDS: Oxybutynin ER 5 MG TAB PO SCH (08:49)
[2019-09-13] MEDS: FLUoxetine HCl 10 MG CAP PO SCH (08:49)
[2019-09-13] MEDS: Amlodipine 10 MG TAB PO SCH (08:50)
[2019-09-13] MEDS: guaiFENesin ER 600 MG TAB PO SCH (08:50)
[2019-09-13] MEDS: Ascorbic Acid 500 mg Chewable Tablet PO SCH (08:51)
[2019-09-13] MEDS: Metoprolol Tartrate 25 MG TAB PO SCH (08:51)
[2019-09-13] MEDS: Saccharomyces boulardii 250 MG CAP PO SCH (08:51)
[2019-09-13] MEDS: Cholecalciferol (Vitamin D3) 400 UNITS TAB PO SCH (08:53)
[2019-09-13] MEDS: Enoxaparin Sodium 40 MG/0.4 ML SYRINGE SC SCH (08:54)
[2019-09-13] MEDS ORDERED: Sulfameth/Trimethoprim DS 800-160mg TAB PO SCH (09:00)
--- NOTE | 2019-09-13 09:29 | PRG ---
DATE OF SERVICE: 09/13/2019 SUBJECTIVE: Cecilia Santizo is a 79-year-old female. She is eager to go home. Sputum shows MRSA more than likely it is colonization, though I will switch her to antibiotics, which is going to cover both the UTI and the Staph MRSA in the sputum. OBJECTIVE: VITAL SIGNS: Temperature 98, pulse 77, respirations 20, saturations 90% on room air, blood pressure 128/79. CHEST: Decreased breath sounds. No wheezing. CARDIAC: Normal S1, S2. No gallops. ABDOMEN: No masses. IMPRESSION AND PLAN: Recurrent aspiration, recurrent urinary tract infection. Bactrim DS for a week. Home any time. Job ID: [id number]
--- NOTE | 2019-09-13 14:19 | PDOC.HOSPP ---
- Subjective Encounter Date: 09/13/19 Encounter Time: 14:17 Subjective: Ms. Santizo was seen today in follow-up of Pneumonia and UTI. She has improved , and wants to go home. She is breathing better. - Objective Vital Signs & Weight: Vital Signs (12 hours) Temp Pulse Resp BP BP Pulse Ox 09/13/19 14:13 69 16 09/13/19 08:50 87 128/73 09/13/19 08:00 87 20 94 L 09/13/19 07:46 98.4 F 87 20 128/73 94 L Weight Admit Weight 204 lb 8 oz Weight 204 lb 8 oz Most Recent Monitor Data Heart Rate from ECG 52 NIBP 113/63 NIBP BP-Mean 79 Respiration from ECG 17 SpO2 96 I&O: 09/12/19 09/13/19 09/14/19 06:59 06:59 06:59 Intake Total 1100 800 240 Balance 1100 800 240 Result Diagrams: 09/11/19 05:36 09/11/19 05:36 Hospitalist ROS - Medication Medications: Active Medications Generic Name Dose Route Start Last Admin Trade Name Freq PRN Reason Stop Dose Admin Acetaminophen 650 mg 09/09/19 01:04 09/12/19 23:03 Tylenol PO 650 mg Q4H PRN Administration Headache/Fever/Mild Pain (1-3) Albuterol/Ipratropium 3 ml 09/10/19 13:00 09/13/19 14:13 Duoneb NEB 3 ml [id number] JERMAINE Administration Amlodipine Besylate 10 mg 09/09/19 09:00 09/13/19 08:50 Norvasc PO 10 mg DAILY JERMAINE Administration Ascorbic Acid 500 mg 09/09/19 09:00 09/13/19 08:51 Vitamin C PO 500 mg DAILY JERMAINE Administration Atorvastatin Calcium 10 mg 09/09/19 21:00 09/12/19 21:12 Lipitor PO 10 mg HS JERMAINE Administration Budesonide 0.25 mg 09/09/19 06:30 09/13/19 07:21 Pulmicort Neb Solution INH Not Given BID-RT JERMAINE Cholecalciferol 200 units 09/09/19 09:00 09/13/19 08:53 Vitamin D PO 200 units DAILY JERMAINE Administration Diltiazem HCl 120 mg 09/09/19 09:00 09/13/19 08:50 Cardizem Cd PO 120 mg DAILY JERMAINE Administration Enoxaparin Sodium 40 mg 09/09/19 09:00 09/13/19 08:54 Lovenox SC 40 mg 0900 JERMAINE Administration Fluoxetine HCl 10 mg 09/09/19 09:00 09/13/19 08:49 Prozac PO 10 mg DAILY JERMAINE Administration Guaifenesin 600 mg 09/09/19 09:00 09/13/19 08:50 Mucinex PO 600 mg Q12HR JERMAINE Administration Guaifenesin/Dextromethorphan 15 ml 09/09/19 01:04 09/10/19 01:45 Robitussin Dm PO 15 ml Q4H PRN Administration Cough Levothyroxine Sodium 125 mcg 09/09/19 06:00 09/13/19 05:32 Synthroid PO 125 mcg 0600 JERMAINE Administration Metoprolol Tartrate 25 mg 09/09/19 09:00 09/13/19 08:51 Lopressor PO 25 mg BID JERMAINE Administration Multivitamins 1 tab 09/09/19 09:00 09/13/19 08:49 Theragran PO 1 tab DAILY JERMAINE Administration Ondansetron HCl 4 mg 09/09/19 01:04 09/12/19 14:27 Zofran IVP 4 mg Q6H PRN Administration Nausea/Vomiting Oxybutynin Chloride 10 mg 09/09/19 09:00 09/13/19 08:49 Ditropan Xl PO 10 mg DAILY JERMAINE Administration Pantoprazole Sodium 40 mg 09/09/19 08:00 09/13/19 08:50 Protonix PO 40 mg QAM-WM JERMAINE Administration Saccharomyces Boulardii 250 mg 09/09/19 09:00 09/13/19 08:51 Florastor PO 250 mg DAILY JERMAINE Administration Sodium Chloride 10 ml 09/09/19 09:00 09/13/19 08:55 Flush - Normal Saline IVF 10 ml Q12HR JERMAINE Administration Trimethoprim/Sulfamethoxazole 1 tab 09/13/19 09:00 09/13/19 09:18 Bactrim Ds PO 09/20/19 09:01 1 tab BID JERMAINE Administration - Exam Eye: PERRL Heart: RRR, no murmur, no gallops, no rubs, normal peripheral pulses Respiratory: CTAB (+ coarse breath sounds), no rales, no ronchi, normal chest expansion Gastrointestinal: soft, non-tender, non-distended, normal bowel sounds, no palpable masses, no hepatomegaly Extremities: no cyanosis, no clubbing, no edema Hosp A/P (1) Acute respiratory failure with hypoxia Code(s): J96.01 - ACUTE RESPIRATORY FAILURE WITH HYPOXIA Status: Resolved (2) UTI (urinary tract infection) Status: Acute Qualifiers: Urinary tract infection type: acute cystitis Hematuria presence: without hematuria Qualified Code(s): N30.00 - Acute cystitis without hematuria (3) Hypertension Code(s): I10 - ESSENTIAL (PRIMARY) HYPERTENSION Status: Chronic Qualifiers: (4) Hypothyroidism Code(s): E03.9 - HYPOTHYROIDISM, UNSPECIFIED Status: Chronic Qualifiers: (5) Chronic diastolic heart failure Code(s): I50.32 - CHRONIC DIASTOLIC (CONGESTIVE) HEART FAILURE Status: Chronic - Plan * Pneumonia- resolved- she is no longer on antibiotics for pneumonia * Chronic respiratory failure with hypoxemia- this is due to chronic diastolic heart failure- she is on home oxygen for this * Chronic diastolic heart failure- compensated- home with home oxygen * UTI- her antibiotics have been changed to Bactrim * Deconditioning- PT/ OT * She is stable for discharge home
[2019-09-13 20:11] VITALS: BP 131/81; TEMP 97.9
--- NOTE | 2019-09-14 04:49 | PQF ---
JOSÉ GAN TONI MD [id number] CLINICAL DOCUMENTATION CLARIFICATION FORM: POST DISCHARGE Addendum to original discharge summary date: ____ Late entry note date: __ DATE: 09/14/19 ATTN: Neal Page Please exercise your independent, professional judgment in responding to the clarification form. Clinical indicators are provided on the bottom of this form for your review Please check appropriate box(s): [ ] Aspiration Pneumonia [ ] Lobar Pneumonia [ ] Pneumonia of unknown etiology [X ] Other diagnosis ___Healthcare Associated Pneumonia [ ] Unable to determine In addition, please specify: Present on Admission (POA): [X ] Yes [ ] No [ ] Unable to determine For continuity of documentation, please document condition throughout progress notes and discharge summary. Thank You. CLINICAL INDICATORS - SIGNS / SYMPTOMS / LABS H&P p1 09/09 Dr Cuba Per family, the patient had low-grader fever from 2 last days H&P p1 09/09 Dr Cuba This morning, the fever went up to 101.4 and the patient had coughing spells, hence was brought to ER H&P p1 09/09 Dr Cuba Known history of dysphagia with aspiration H&P p2 09/09 Dr Cuba Vital sign: BP142/74, pulse 90, Resp rate 22, Temp 101.1, saturing 88% on 4L oxygen and 100% BiPAP Pulmonary Consult p3 09/09 Left Lower lobe Pneumonia PN p1 12 Recurrent aspiration PNA, severe deconditioning,bedridden RISK FACTORS H&P p1 09/09 79 year-old Female H&P p1 12 Bed-bound status H&P p3 09/09 admitted to [facility] H&P p3 12 Acute Respiratory failure with hypoxcia H&P p3 12 Sepsis TREATMENTS: H&P p2 09/09 - on 4L oxygen and 100% BiPAP IV Ceftriaxone IV Vancomycin DuoNeb q6 Pulmonary Consult 09/09 Evelin Vaca (This form is maintained as a part of the permanent medical record) 2014 [employer]. All Rights Reserved [email or web address] [not provided] MTDD
--- NOTE | 2019-09-14 04:49 | PQF ---
JOSÉ GAN TONI MD [id number] CLINICAL DOCUMENTATION CLARIFICATION FORM: POST DISCHARGE Addendum to original discharge summary date: ____ Late entry note date: __ DATE: 09/14/19 ATTN: Neal aPge Please exercise your independent, professional judgment in responding to the clarification form. Clinical indicators are provided on the bottom of this form for your review Please check appropriate box(s) to clarify if the following diagnosis has been ruled in or ruled out: Sepsis [ ] Ruled in diagnosis [ ] Continue to treat [ ] Resolved [ X] Ruled out diagnosis [ ] Cannot rule out diagnosis [ ] Other diagnosis [ ] Unable to determine In addition, please specify: Present on Admission (POA): [X ] Yes [ ] No [ ] Unable to determine For continuity of documentation, please document condition throughout progress notes and discharge summary. Thank You. CLINICAL INDICATORS - SIGNS / SYMPTOMS / LABS H&P p1 09/09 Dr Cuba Per family, the patient had low-grader fever from 2 last days H&P p1 09/09 Dr Cuba This morning, the fever went up to 101.4 and the patient had coughing spells, hence was brought to ER H&P p1 09/09 Dr Cuba Known history of dysphagia with aspiration H&P p2 09/09 Dr Cuba Vital sign: BP142/74, pulse 90, Resp rate 22, Temp 101.1, saturing 88% on 4L oxygen and 100% BiPAP Pulmonary Consult p3 12 Left Lower lobe Pneumonia PN p1 122 Recurrent aspiration PNA, severe deconditioning,bedridden RISK FACTORS H&P p1 12 79 year-old Female H&P p1 12 Bed-bound status H&P p3 12/1 Admitted to [facility] H&P p3 09/09 Acute Respiratory failure with hypoxia H&P p3 09/09 Sepsis TREATMENTS: H&P p2 09/09 - on 4L oxygen and 100% BiPAP IV Ceftriaxone IV Vancomycin DuoNeb q6 Pulmonary Consult 09/09 Evelin Vaca (This form is maintained as a part of the permanent medical record) 2014 [employer]. All Rights Reserved Zahira [not provided] MTDD
--- NOTE | 2019-09-14 05:00 | DIS ---
DATE OF ADMISSION: 09/09/2019 DATE OF DISCHARGE: 09/13/2019 PRIMARY CARE PHYSICIAN: Deepak Ricardo MD. DISCHARGE DISPOSITION: Home with home health. DISCHARGE DIAGNOSES: 1. [id number] respiratory failure with hypoxemia. 2. Healthcare-associated pneumonia. 3. Urinary tract infection. 4. Severe deconditioning. 5. Chronic bed-bound status. 6. Hypertension. 7. Hypothyroidism. DISCHARGE MEDICATIONS: Include; 1. Alprazolam 0.25 mg at bedtime. 2. Amlodipine 10 mg daily. 3. Vitamin C 500 mg daily. 4. Lipitor 10 mg at bedtime. 5. Budesonide 0.25/2 two inhalations twice a day. 6. Vitamin D3 at 200 units daily. 7. Cardizem CD 120 mg daily. 8. Nexium 40 mg daily. 9. Fluoxetine 10 mg daily. 10. Furosemide 20 mg daily. 11. Gabapentin 600 mg as directed. 12. [place] 10/325 q.4 hours as needed. 13. Levothyroxine 125 mcg p.o. daily. 14. Loperamide 2 mg daily. 15. Lopressor 25 mg p.o. twice a day. 16. Multivitamin once daily. 17. Oxybutynin 10 mg extended release daily. 18. Klor-Con 10 mEq extended release daily. 19. Zantac 75 mg daily. 20. Valsartan 320 mg daily. 21. Zantac 75 mg daily. 22. Mucinex 600 mg daily. 23. Florastor 250 mg daily. 24. Bactrim DS 1 tablet twice a day for 5 days. CODE STATUS: DNAR. ALLERGIES: TO AMOXICILLIN, CIPRO, CLAVULANIC ACID, NALBUPHINE, ZOLPIDEM, FENTANYL CIPROFLOXACIN, CLINDAMYCIN, ERYTHROMYCIN BASE, METOLAZONE, OXYCODONE, LATEX, AMBIEN. HOSPITAL COURSE: Ms. Santizo is a very pleasant 79-year-old female who was brought to the hospital by her family after she was noted to be less responsive and altered. She also appeared to be short of breath and had a fever up to 101.4. She had been on hospice; however, her decided to revoke hospice and bring her to the hospital. She was found to have a urinary tract infection as well as pneumonia. This was treated with IV broad-spectrum antibiotics. She had a short time where she required BiPAP. She was able to be weaned off BiPAP and her mental status improved. She also began to perk up physically despite being bed-bound. Her decided not to return home on hospice and decided instead to go with home health. She was re-evaluated for home health and once the pneumonia was cleared, she was able to be discharged home on oxygen and the oxygen is for chronic diastolic heart failure with hypoxemia. Continue treatment with Bactrim for the urinary tract infection. She is to follow up with her primary care physician in a couple of days. Job ID: [id number]
== END 2019-09-13 17:35 | disposition home health service (06) | DRG 193 ==
LOC: ERS 20:15 → IMCU/EMU 09-09 00:54 → T4-B 09-10 18:22
PROVIDERS: ADMIT Internal Medicine; ATTEND Internal Medicine
PROC: 5A09357 Assistance with Respiratory Ventilation, Less than 24 Consecutive Hours, Continuous Positive Airway Pressure (ICD-10-PCS; principal; 2019-09-09)
DX: J18.9 Pneumonia, unspecified organism (principal); J96.21 Acute and chronic respiratory failure with hypoxia; N30.01 Acute cystitis with hematuria; G82.20 Paraplegia, unspecified; I50.32 Chronic diastolic (congestive) heart failure; J44.0 Chronic obstructive pulmonary disease with (acute) lower respiratory infection; Z66 Do not resuscitate; E03.9 Hypothyroidism, unspecified; F32.9 Major depressive disorder, single episode, unspecified; F41.9 Anxiety disorder, unspecified; K21.9 Gastro-esophageal reflux disease without esophagitis; I11.0 Hypertensive heart disease with heart failure; R13.10 Dysphagia, unspecified; R19.7 Diarrhea, unspecified; Y95 Nosocomial condition; Z90.49 Acquired absence of other specified parts of digestive tract; Z90.710 Acquired absence of both cervix and uterus; Z88.1 Allergy status to other antibiotic agents; Z88.2 Allergy status to sulfonamides; Z88.8 Allergy status to other drugs, medicaments and biological substances; Z79.899 Other long term (current) drug therapy; Z79.890 Hormone replacement therapy; Z79.51 Long term (current) use of inhaled steroids; Z74.01 Bed confinement status
CPT/HCPCS: 36415; 36416; 51701; 71045; 80048; 80053; 80202; 81003; 81015; 83605; 83880; 84484; 85025; 87040; 87070; 87077; 87086; 87186; 87205; 87324; 87449; 87493; 87804; 93005; 94640; 94760; 96365; 96367; 96375; A4353; J0696; J1650; J2405; J2543; J2930; J3370; J3475; J3490; J7611; J7620; J7626

== ENCOUNTER 2019-09-19 01:22 | Inpatient (IN) | payer MEDICARE, OTHER ==
[2019-09-19] MEDS ORDERED: Piperacillin/Tazobactam 4.5 GM VIAL ONE (01:39)
[2019-09-19 01:47] LABS: #Basophils 0.1 thou/uL (0.0-0.2); #Eosinphils 0.9 thou/uL (0.0-0.7); #Lymphocytes 2.3 thou/uL (1.20-3.40); #Monocytes 0.9 thou/uL (0.11-0.59); #Neutrophils 7.1 thou/uL (1.40-6.50); %Basophils 0.7 % (0.0-1.0); %Eosinophils 7.6 % (0.0-10.0); %Lymphocytes 20.5 % (21.0-51.0); Hemoglobin 10.8 g/dL (12.0-16.0); Mean Corpuscular HGB CONC 33.6 g/dL (32.0-36.0); Mean Corpuscular Hemoglobin 30.2 pg (27.0-31.0); Mean Platelet Volume 7.2 fL (7.4-10.4); Platelet Count 242 thou/uL (130-400); RBC Distribution Width 12.9 % (11.5-14.5); Red Blood Cell (RBC) Count 3.59 mill/uL (4.20-5.40); White Blood Cell (WBC) Count 11.2 thou/uL (4.8-10.8)
[2019-09-19 02:11] LABS: ALT (SGPT) 15 U/L (8-55); AST (SGOT) 17 U/L (5-34); Albumin 3.7 g/dL (3.4-4.8); Alkaline Phosphatase 132 U/L (40-110); Anion Gap 17 mmol/L (10-20); BUN (Urea Nitrogen) 23 mg/dL (9.8-20.1); Bilirubin, Total 0.2 mg/dL (0.2-1.2); Calc. Creatinine Clearance 0 mL/min (70-130); Calcium 8.2 mg/dL (7.8-10.44); Carbon Dioxide 17 mmol/L (23-31); Chloride 102 mmol/L (98-107); Estimated GFR-MDRD 13; Globulin 2.5 g/dL (2.4-3.5); Glucose 120 mg/dL (83-110); Potassium 4.4 mmol/L (3.5-5.1); Protein, Total 6.2 g/dL (6.0-8.3); Sodium 132 mmol/L (136-145)
[2019-09-19 02:28] LABS: Bacteria/HPF None Seen HPF (None Seen); Bilirubin Negative (Negative); Blood, Urine Negative (Negative); Clarity Clear (Clear); Glucose, Urine (Dipstick) Normal (Negative); Leukocyte 25 Leu/uL (Negative); Nitrite Negative (Negative); Protein, Urine (Dipstick) 20 mg/dL (Neg-Trace); RBC/HPF 0-3 HPF (0-3); Squamous Epithelial 0-3 HPF (0-3); Urobilinogen Normal mg/dL (Less than 2); WBC/HPF 0-3 HPF (0-3)
[2019-09-19] MEDS ORDERED: Sodium Chloride 0.9% 1,000 ML IV SCH ×2 (03:15→03:45)
[2019-09-19] MEDS ORDERED: metroNIDAZOLE 500 MG in Premix Bag 1 BAG IVPB SCH (04:00)
--- NOTE | 2019-09-19 05:11 | HP ---
CHIEF COMPLAINT: Fever, cough, and shortness of breath. HISTORY OF PRESENT ILLNESS: Ms. Santizo is a 79-year-old female with past medical history of atrial fibrillation, dysphagia, ?COPD, hypertension, chronic renal failure, among others, presents to the emergency room with cough, fever, and altered mental status. As per EMS report, patient had a temperature of 101.3. Patient was recently diagnosed with UTI. Patient also reports cough and loose bowel motion since last week. Workup in the emergency room, urinalysis was unremarkable. Sodium is 132, potassium 4.4, BUN is 23, creatinine 3.3, and glucose 120. WBC count is 11.2, hemoglobin 10.8, and platelets 242. Chest x-ray shows left lower lobe infiltrate/pneumonia. Septic workup done in the ED. Patient is on IV antibiotics. Patient is being admitted to the hospital for further management. PAST MEDICAL HISTORY: 1. Chronic respiratory failure, on oxygen. 2. Atrial fibrillation. 3. Hypothyroidism. 4. Hyperlipidemia. 5. Chronic renal failure. 6. COPD/asthma. 7. Dysphagia. 8. Anemia. 9. Hypothyroidism. 10. Hyperlipidemia. PAST SURGICAL HISTORY: 1. Cholecystectomy. 2. Hysterectomy. 3. Back surgery. PAST PSYCHIATRIC HISTORY: Depression. SOCIAL HISTORY: Denies alcohol use. No smoking history. FAMILY HISTORY: Reviewed and noncontributory. HOME MEDICATIONS: Please see home medication reconciliation form for updated medications. ALLERGIES: PATIENT IS ALLERGIC TO AMOXICILLIN, CIPRO, CLAVULANIC ACID, CLINDAMYCIN, ERYTHROMYCIN, LATEX, METOLAZONE, OXYCODONE, SULFA, SULFAMETHOXAZOLE, TRAMADOL, TRIMETHOPRIM, AND ZOLPIDEM. REVIEW OF SYSTEMS: Review of 14 systems negative, except what is mentioned in the history of present illness. PHYSICAL EXAMINATION: GENERAL: Patient is awake, alert, and oriented, in moderate respiratory distress. VITAL SIGNS: Blood pressure 130/90, pulse is 70, respiratory rate is 22, and temperature 100.1. HEAD AND NECK: Normocephalic and atraumatic. NECK: Supple. CHEST: Coarse bilateral breath sounds more on the left side. HEART: S1, S2. Regular. ABDOMEN: Obese, soft. Bowel sounds present. NEUROLOGIC: Awake, alert, and oriented x3. PSYCH: Unable to assess. EXTREMITIES: 1+ pedal edema. LABORATORY DATA: As mentioned above in history of present illness. IMAGING: Chest x-ray, as mentioned above in history of present illness. ASSESSMENT: 1. Acute on chronic respiratory failure. 2. Pneumonia, healthcare associated/?aspiration. 3. Chronic obstructive pulmonary disease. 4. Acute on chronic renal failure. 5. Hypertension. 6. Hyperlipidemia. 7. Hypothyroidism. 8. History of atrial fibrillation. PLAN: 1. Admit. 2. Septic workup including blood cultures. 3. IV antibiotics. Patient was given cefepime, vancomycin, and levofloxacin in the ED. We will continue with vancomycin, cefepime and add Flagyl. There is a possibility of aspiration given her history of dysphagia. 4. Oxygen to keep saturation more than 92%. 5. Monitor kidney function and urine output. 6. Bronchodilators. 7. Reconcile home medications. 8. DVT prophylaxis as appropriate. 9. Expected length of stay 2 midnights or more. Job ID: [id number]
[2019-09-19 05:47] VITALS: BMI 35.9
[2019-09-19] MEDS: Cefepime 1 GM in Sodium Chloride 0.9% 100 ML IVPB SCH ×2 (06:23→17:26)
[2019-09-19] MEDS: metroNIDAZOLE 500 MG in Premix Bag 1 BAG IVPB SCH ×2 (08:12→16:22)
--- NOTE | 2019-09-19 09:29 | RAD ---
CHEST 1 VIEW: Date: 09/19/19 HISTORY: Fever. COMPARISON: 09/08/19. FINDINGS: Poor inspiration. Stable pleural and parenchymal opacity changes in the left base. IMPRESSION: Stable chest with stable pleural and parenchymal opacity changes in the left base. Continue short-ter m follow-up. POS: SONIDO
[2019-09-19] MEDS ORDERED: Acetaminophen 325 MG TAB PO PRN (15:09)
[2019-09-19] MEDS ORDERED: Calcium Carbonate 500 MG ChewTAB PO PRN (15:09)
[2019-09-19] MEDS ORDERED: Senokot S 8.6-50 MG TAB PO PRN (15:09)
[2019-09-19] MEDS ORDERED: Acetaminophen 650 MG Suppository PR PRN (15:09)
[2019-09-19] MEDS: Dextrose 5 % And 0.9 % NaCl 1,000 ML IV SCH (16:22)
--- NOTE | 2019-09-19 17:46 | PDOC.PALCO ---
Palliative Care Consult - Consult Details Requesting Physician: Dr Cabrales Reason for Consult: goals of care, complex decision-making Family Members Present: None - Pertinent HPI 79 year old female with history of atrial fib, dysphagia, copd, htn, CKD. She presented to the emergency room after febrile episode and altered mental status x 1 day. Also reported recent onset of cough, loose bowel x 1 week and recent diagnosis of UTI. Evaluation in the emergency room identified left lower leobe pneumonia. Admitted for IV abx and further medical management. Seen by speech therapy and evaluation for dysphagia, confirmed. - Social History Smoking Status: Never smoker Smoking: no tobacco exposure Alcohol Use: none Drug Use History: none Living Situation: (Intermittant stays at [facility] ) - Allergies Allergies/Adverse Reactions: Allergies Allergy/AdvReac Type Severity Reaction Status Date / Time amoxicillin Allergy Verified 08/04/19 19:58 amoxicillin trihydrate Allergy Diarrhea Verified 08/04/19 19:58 [From Augmentin] ciprofloxacin [From Cipro] Allergy Rash Verified 08/04/19 19:58 clavulanic acid Allergy Verified 08/04/19 19:58 [From Augmentin] clindamycin Allergy Verified 08/04/19 19:58 erythromycin base Allergy Verified 08/04/19 19:58 [From Erythrocin] erythromycin lactobionate Allergy Verified 08/04/19 19:58 [From Erythrocin] Latex, Natural Rubber Allergy Rash Verified 08/04/19 19:58 metolazone [Metolazone] Allergy Verified 08/04/19 19:58 nalbuphine Allergy Verified 08/04/19 19:58 nalbuphine HCl [From Nubain] Allergy Verified 08/04/19 19:58 oxycodone Allergy Verified 08/04/19 19:58 oxycodone HCl Allergy Rash Verified 08/04/19 19:58 [From OxyContin] potassium clavulanate Allergy Diarrhea Verified 08/04/19 19:58 [From Augmentin] zolpidem Allergy Verified 08/04/19 19:58 tramadol [From Ultram] AdvReac Intermediate Verified 08/04/19 19:58 zolpidem tartrate AdvReac Intermediate "crazy" Verified 08/04/19 19:58 [From Ambien] fentanyl [From Duragesic] AdvReac Mild Anxiety Verified 08/04/19 19:58 - ROS Constitutional: alert, weakness ENT: dry mouth, other ("Hard to swallow") Respiratory: other (Cough) Cardiology: other (negative for chest pain, palpitations) Genitourinary: other Neurological: tremor Skin: bruising - Objective Vital Signs: Vital Signs - Most Recent Temp Pulse Resp BP Pulse Ox 98.4 F 69 20 114/55 L 92 L 09/19/19 16:38 09/19/19 16:38 09/19/19 16:38 09/19/19 16:38 09/19/19 16:38 Palliative Performance Scale: 40 - Physical Exam Constitutional: ill appearing, mild distress HEENT: EOMI, sclera anicteric Respiratory: unlabored breathing Cardiovascular: RRR Gastrointestinal: non-tender, positive bowel sounds Musculoskeletal: no cyanosis, no clubbing, edema present Neurology: moves all 4 limbs, normal speech Skin: cap refill <2 seconds, bruising, fragile Psychiatric: A&O x 3 - Problem List (1) Palliative care encounter Code(s): Z51.5 - ENCOUNTER FOR PALLIATIVE CARE Current Visit: Yes Status: Acute (2) Dysphagia Code(s): R13.10 - DYSPHAGIA, UNSPECIFIED Current Visit: Yes Status: Acute (3) Physical deconditioning Code(s): R53.81 - OTHER MALAISE Current Visit: No Status: Chronic (4) Pneumonia Code(s): J18.9 - PNEUMONIA, UNSPECIFIED ORGANISM Current Visit: No Status: Ruled-out - Plan/Recommendations Plan: Visited with patient, she states that she does not wish to have a "PEG", patient initiated conversation in realtion to PEG. Meeting arranged with her tomorrow to discuss goals of care and diet with aspiration risk, family has been taught in the past. [facility] protocol Family meeting 09/20 12:00 Melatonin 6 mg po q hs for insomnia Please also refer to Pao Jiménez RNrn social work notes in note section for further information. [] minutes spent on this encounter with >50% of the time in counseling and coordination of care. Thank you for this very appropriate consult.
[2019-09-19] MEDS: Melatonin 3 MG TAB PO SCH (20:46)
[2019-09-19] MEDS: Heparin 5,000 UNITS/ML VIAL SC SCH (20:55)
[2019-09-19] MEDS ORDERED: diphenhydrAMINE 50 MG/ML VIAL IVP SCH (21:15)
[2019-09-20] MEDS: metroNIDAZOLE 500 MG in Premix Bag 1 BAG IVPB SCH ×3 (00:01→15:49)
[2019-09-20 05:16] LABS: #Eosinphils 0.6 thou/uL (0.0-0.7); #Lymphocytes 1.4 thou/uL (1.20-3.40); #Monocytes 0.8 thou/uL (0.11-0.59); #Neutrophils 4.1 thou/uL (1.40-6.50); %Basophils 0.5 % (0.0-1.0); %Eosinophils 8.3 % (0.0-10.0); %Lymphocytes 20.7 % (21.0-51.0); %Monocytes 11.3 % (0.0-10.0); %Neutrophils 59.2 % (42.0-75.0); Hemoglobin 9.5 g/dL (12.0-16.0); Mean Corpuscular HGB CONC 32.8 g/dL (32.0-36.0); Mean Corpuscular Hemoglobin 29.9 pg (27.0-31.0); Mean Corpuscular Volume 91.3 fL (78.0-98.0); Mean Platelet Volume 7.2 fL (7.4-10.4); Platelet Count 211 thou/uL (130-400); RBC Distribution Width 13.1 % (11.5-14.5); Red Blood Cell (RBC) Count 3.18 mill/uL (4.20-5.40); White Blood Cell (WBC) Count 6.9 thou/uL (4.8-10.8)
[2019-09-20 05:37] LABS: Vancomycin, Random 9.9 ug/mL (See Comment)
[2019-09-20 05:42] LABS: ALT (SGPT) 9 U/L (8-55); AST (SGOT) 13 U/L (5-34); Albumin 2.9 g/dL (3.4-4.8); Alkaline Phosphatase 87 U/L (40-110); Anion Gap 11 mmol/L (10-20); BUN (Urea Nitrogen) 17 mg/dL (9.8-20.1); Bilirubin, Total 0.3 mg/dL (0.2-1.2); Calc. Creatinine Clearance 31 mL/min (70-130); Calcium 7.8 mg/dL (7.8-10.44); Carbon Dioxide 17 mmol/L (23-31); Chloride 114 mmol/L (98-107); Estimated GFR-MDRD 22; Glucose 106 mg/dL (83-110); Magnesium 1.9 mg/dL (1.6-2.6); Protein, Total 4.9 g/dL (6.0-8.3); Sodium 138 mmol/L (136-145)
[2019-09-20] MEDS: Cefepime 1 GM in Sodium Chloride 0.9% 100 ML IVPB SCH ×2 (05:47→15:49)
[2019-09-20] MEDS: Dextrose 5 % And 0.9 % NaCl 1,000 ML IV SCH (05:49)
[2019-09-20] MEDS: Vancomycin HCl 1 GM in Sodium Chloride 0.9% 250 ML 250 ML IVPB SCH ×2 (05:58→07:05)
[2019-09-20] MEDS ORDERED: Vancomycin HCl 1 GM in Premix Bag 1 BAG IVPB SCH (06:00)
[2019-09-20] MEDS: Famotidine 20 MG TAB PO SCH (07:11)
--- NOTE | 2019-09-20 08:10 | RAD ---
CHEST 1 VIEW: Date: 09/20/19 COMPARISON: 09/19/19. HISTORY: Fever. Shortness of breath. FINDINGS: Cardiomegaly. Atherosclerosis. Stable diminished lung volumes. Bibasilar opacities may represent atel ectasis, pneumonia, or aspiration. No pneumothorax. IMPRESSION: Persistent diminished lung volumes. Bibasilar opacities as described above. Continued surveillance is recommended. POS: OFF
[2019-09-20] MEDS: Famotidine/PF 20 mg/2ml Vial SLOW IVP SCH (08:19)
[2019-09-20] MEDS: Heparin 5,000 UNITS/ML VIAL SC SCH ×2 (08:19→20:35)
[2019-09-20] MEDS ORDERED: Saccharomyces boulardii 250 MG CAP PO SCH (09:00)
[2019-09-20] MEDS: HYDROcodone/Acetaminophen 10/325 mg Tablet PO PRN ×2 (11:27→15:49)
[2019-09-20] MEDS: Dextrose 5 %-0.45 % NaCl 1,000 ML IV SCH (11:31)
--- NOTE | 2019-09-20 22:15 | PDOC.HOSPP ---
- Subjective Encounter Date: 09/20/19 Encounter Time: 14:00 Subjective: Patient seen and examined for Resp failure/Aspiration pneumonia. Refusing PEG. Mild cough. No CP. No new complaints. No overnight events - Objective Vital Signs & Weight: Vital Signs (12 hours) Temp Pulse Resp BP Pulse Ox 09/20/19 20:00 98.4 F 77 18 139/70 96 09/20/19 16:25 99.2 F 09/20/19 11:13 98.8 F Weight Admit Weight 203 lb Weight 203 lb I&O: 09/19/19 09/20/19 09/21/19 06:59 06:59 06:59 Intake Total 2049 Balance 2049 Result Diagrams: 09/20/19 05:04 09/20/19 05:04 Additional Labs: Accuchecks 09/20/19 09/20/19 09/20/19 20:22 16:27 11:16 POC Glucose 150 H 164 H 122 H 09/20/19 04:33 POC Glucose 116 H Radiology Reviewed by me: Yes (CXR - Pneumonia) Hospitalist ROS - Review of Systems Constitutional: reports: weakness. denies: fever, chills, sweats, malaise, other Gastrointestinal: denies: nausea, vomiting, abdominal pain, diarrhea, constipation, melena, hematochezia, other - Medication Medications: Active Medications Generic Name Dose Route Start Last Admin Trade Name Freq PRN Reason Stop Dose Admin Acetaminophen 650 mg 09/19/19 15:09 09/19/19 23:54 Tylenol [place] 650 mg Q4H PRN Administration Headache/Fever/Mild Pain (1-3) Famotidine 20 mg 09/20/19 09:00 09/20/19 07:11 Pepcid PO Not Given DAILY JERMAINE Famotidine 20 mg 09/20/19 09:00 09/20/19 08:19 Pepcid SLOW IVP 20 mg DAILY JERMAINE Administration Heparin Sodium (Porcine) 5,000 units 09/19/19 21:00 09/20/19 20:35 Heparin SC 5,000 units BID JERMAINE Administration Cefepime HCl 1 gm/ Sodium 100 mls @ 200 mls/hr 09/19/19 06:00 09/20/19 15:49 Chloride IVPB 100 mls 0600,1800 JERMAINE Administration Metronidazole 500 mg/ Device 100 mls @ 100 mls/hr 09/19/19 09:00 09/20/19 15: 49 IVPB 100 mls 0100,0900,1700 JERMAINE Administration Dextrose/Sodium Chloride 1,000 mls @ 75 mls/hr 09/20/19 08:45 09/20/19 11:31 D5 1/2 Ns IV 1,000 mls .[id number] JERMAINE Administration Melatonin 6 mg 09/19/19 21:00 09/19/19 20:46 Melatonin PO Not Given HS JERMAINE Saccharomyces Boulardii 250 mg 09/20/19 09:00 09/20/19 07:12 Florastor PO Not Given DAILY JERMAINE - Exam General Appearance: NAD Heart: RRR, no gallops, no rubs, normal peripheral pulses Respiratory: no wheezes, normal chest expansion, rales, rhonchi Gastrointestinal: soft, non-tender, non-distended, normal bowel sounds Extremities: no edema Psychiatric: normal affect, A&O x 3 Hosp A/P - Plan DVT proph w/SCDs Severe Sepsis due to Aspiration Pneumonia with Acute on chronic hypoxic Resp failure (POA) Recent UTI - on Bactrim (POA)) Obesity BMI 36 NIKI on CKD 3 (POA) GERD Hyponatremia Moderate PEM (POA) HTN HLD Swallow dysfunction PLAN: 09/20 Bactrim dced due to NIKI DC Vancomycin Cont Cefepime/Flagyl Pt declining PEG tube - understands the risk Palliative care input appreciated Cont other meds
[2019-09-20] MEDS: Melatonin 3 MG TAB PO SCH (22:30)
[2019-09-21] MEDS: metroNIDAZOLE 500 MG in Premix Bag 1 BAG IVPB SCH ×3 (00:45→17:16)
[2019-09-21] MEDS: Dextrose 5 %-0.45 % NaCl 1,000 ML IV SCH ×3 (00:46→14:14)
[2019-09-21] MEDS: Levothyroxine Sodium 125 MCG TAB PO SCH (05:37)
[2019-09-21] MEDS: Cefepime 1 GM in Sodium Chloride 0.9% 100 ML IVPB SCH (05:37)
[2019-09-21] MEDS: Budesonide 0.25 MG/2 ML NEB INH SCH ×2 (06:24→19:09)
[2019-09-21] MEDS: Metoprolol Tartrate 25 MG TAB PO SCH ×2 (08:51→20:42)
[2019-09-21] MEDS: HYDROcodone/Acetaminophen 5/325 mg Tablet PO PRN ×4 (08:53→20:44)
[2019-09-21] MEDS: Saccharomyces boulardii 250 MG CAP PO SCH (08:53)
[2019-09-21] MEDS: Famotidine 20 MG TAB PO SCH (08:55)
[2019-09-21] MEDS: Heparin 5,000 UNITS/ML VIAL SC SCH ×2 (09:04→20:42)
[2019-09-21] MEDS ORDERED: Pharmacy to Dose: CEFEPIME IVPB PRN (09:37)
[2019-09-21] MEDS: Famotidine/PF 20 mg/2ml Vial SLOW IVP SCH (10:23)
[2019-09-21] MEDS ORDERED: Labetalol HCl 100 MG/20 ML VIAL SLOW IVP PRN (11:07)
[2019-09-21] MEDS: Gabapentin 100 MG CAP PO SCH ×2 (14:06→20:43)
[2019-09-21] MEDS: Melatonin 3 MG TAB PO SCH (20:43)
[2019-09-21] MEDS ORDERED: ALPRAZolam 0.25 MG TAB PO SCH (22:45)
--- NOTE | 2019-09-21 23:39 | PDOC.HOSPP ---
- Subjective Encounter Date: 09/21/19 Encounter Time: 11:00 Subjective: Patient seen and examined for Sepsis. Declined PEG. Mild cough. No new complaints. No overnight events - Objective Vital Signs & Weight: Vital Signs (12 hours) Temp Pulse Resp BP Pulse Ox 09/21/19 19:09 89 22 H 94 L 09/21/19 19:02 98.8 F 75 20 185/72 H 95 09/21/19 16:35 98.7 F Weight Admit Weight 203 lb Weight 203 lb I&O: 09/20/19 09/21/19 09/22/19 06:59 06:59 06:59 Intake Total 2049 Balance 2049 Result Diagrams: 09/20/19 05:04 09/20/19 05:04 Additional Labs: Accuchecks 09/21/19 09/21/19 09/21/19 19:09 11:17 04:50 POC Glucose 128 H 143 H 120 H Hospitalist ROS - Review of Systems Cardiovascular: denies: chest pain, palpitations, orthopnea, paroxysmal noc. dyspnea, edema, light headedness, other Gastrointestinal: denies: nausea, vomiting, abdominal pain, diarrhea, constipation, melena, hematochezia, other - Medication Medications: Active Medications Generic Name Dose Route Start Last Admin Trade Name Freq PRN Reason Stop Dose Admin Acetaminophen 650 mg 09/19/19 15:09 09/19/19 23:54 Tylenol [place] 650 mg Q4H PRN Administration Headache/Fever/Mild Pain (1-3) Hydrocodone Bitart/Acetaminophen 1 tab 09/21/19 15:32 09/21/19 20:44 [place] 5/325 PO 1 tab Q4H PRN Administration Severe Pain (7-10) Alprazolam 0.25 mg 09/21/19 22:45 09/21/19 22:50 Xanax PO 09/21/19 23:59 0.25 mg NOW JERMAINE Administration Budesonide 0.25 mg 09/21/19 06:30 09/21/19 19:09 Pulmicort Neb Solution INH 0.25 mg BID-RT JERMAINE Administration Famotidine 20 mg 09/20/19 09:00 09/21/19 08:55 Pepcid PO 20 mg DAILY JERMAINE Administration Gabapentin 100 mg 09/21/19 15:00 09/21/19 20:43 Neurontin PO 100 mg TID JERMAINE Administration Heparin Sodium (Porcine) 5,000 units 09/19/19 21:00 09/21/19 20:42 Heparin SC 5,000 units BID JERMAINE Administration Metronidazole 500 mg/ Device 100 mls @ 100 mls/hr 09/19/19 09:00 09/21/19 17: 16 IVPB 100 mls 0100,0900,1700 JERMAINE Administration Dextrose/Sodium Chloride 1,000 mls @ 30 mls/hr 09/21/19 10:49 09/21/19 14:14 D5 1/2 Ns IV 1,000 mls .Q24H JERMAINE Administration Levothyroxine Sodium 125 mcg 09/21/19 06:00 09/21/19 05:37 Synthroid PO 125 mcg 0600 JERMAINE Administration Melatonin 6 mg 09/19/19 21:00 09/21/19 20:43 Melatonin PO 6 mg HS JERMAINE Administration Metoprolol Tartrate 12.5 mg 09/21/19 09:00 09/21/19 20:42 Lopressor PO 12.5 mg BID JERMAINE Administration Saccharomyces Boulardii 250 mg 09/21/19 09:00 09/21/19 08:53 Florastor PO 250 mg DAILY JERMAINE Administration - Exam General Appearance: NAD Neck: no JVD Heart: RRR, no gallops Respiratory: normal chest expansion, rales, rhonchi Gastrointestinal: soft, non-tender, normal bowel sounds Extremities: no edema Hosp A/P - Plan DVT proph w/SCDs Severe Sepsis due to Aspiration Pneumonia with Acute on chronic hypoxic Resp failure (POA) Recent UTI - on Bactrim (POA)) Obesity BMI 36 NIKI on CKD 3 (POA) - improving GERD Hyponatremia Moderate PEM (POA) HTN HLD Swallow dysfunction - declining PEG PLAN: 09/21 Still on 4 lit O2 Cont IV Cefepime/Flagyl - renally dosed AM labs Reduce IVF to KVO 09/20 Bactrim dced due to NIKI DC Vancomycin Cont Cefepime/Flagyl Pt declining PEG tube - understands the risk Palliative care input appreciated Cont other meds
[2019-09-22] MEDS: metroNIDAZOLE 500 MG in Premix Bag 1 BAG IVPB SCH ×3 (00:24→16:50)
[2019-09-22] MEDS: Levothyroxine Sodium 125 MCG TAB PO SCH (05:41)
[2019-09-22] MEDS: Budesonide 0.25 MG/2 ML NEB INH SCH ×2 (06:27→19:40)
[2019-09-22 07:13] LABS: #Eosinphils 0.8 thou/uL (0.0-0.7); #Lymphocytes 1.5 thou/uL (1.20-3.40); #Monocytes 0.6 thou/uL (0.11-0.59); #Neutrophils 4.9 thou/uL (1.40-6.50); %Basophils 0.4 % (0.0-1.0); %Eosinophils 10.1 % (0.0-10.0); %Lymphocytes 19.2 % (21.0-51.0); %Neutrophils 62.3 % (42.0-75.0); Mean Corpuscular HGB CONC 34.8 g/dL (32.0-36.0); Mean Corpuscular Volume 92.1 fL (78.0-98.0); Mean Platelet Volume 7.2 fL (7.4-10.4); Platelet Count 223 thou/uL (130-400); RBC Distribution Width 13.4 % (11.5-14.5); Red Blood Cell (RBC) Count 3.76 mill/uL (4.20-5.40); White Blood Cell (WBC) Count 7.8 thou/uL (4.8-10.8)
[2019-09-22 07:30] LABS: Anion Gap 12 mmol/L (10-20); BUN (Urea Nitrogen) 7 mg/dL (9.8-20.1); Calc. Creatinine Clearance 71 mL/min (70-130); Calcium 9.3 mg/dL (7.8-10.44); Carbon Dioxide 17 mmol/L (23-31); Chloride 114 mmol/L (98-107); Estimated GFR-MDRD 58; Glucose 119 mg/dL (83-110); Potassium 3.7 mmol/L (3.5-5.1); Sodium 139 mmol/L (136-145)
[2019-09-22] MEDS: Saccharomyces boulardii 250 MG CAP PO SCH (08:23)
[2019-09-22] MEDS: Metoprolol Tartrate 25 MG TAB PO SCH ×2 (08:23→20:38)
[2019-09-22] MEDS: Gabapentin 100 MG CAP PO SCH ×3 (08:23→20:37)
[2019-09-22] MEDS: Cefepime 1 GM in Sodium Chloride 0.9% 100 ML IVPB SCH (08:24)
[2019-09-22] MEDS: Famotidine 20 MG TAB PO SCH (08:24)
[2019-09-22] MEDS: Heparin 5,000 UNITS/ML VIAL SC SCH ×2 (08:31→20:38)
[2019-09-22] MEDS: HYDROcodone/Acetaminophen 5/325 mg Tablet PO PRN ×3 (08:54→20:39)
[2019-09-22] MEDS ORDERED: guaiFENesin ER 600 MG TAB PO PRN (09:41)
[2019-09-22] MEDS ORDERED: Potassium Chloride 10 MEQ TAB PO PRN (09:41)
[2019-09-22] MEDS ORDERED: Doxylamine 25 MG TAB PO PRN (09:41)
[2019-09-22] MEDS ORDERED: Loperamide HCl 2 MG CAP PO PRN (09:41)
--- NOTE | 2019-09-22 10:15 | PRG ---
DATE OF SERVICE: 09/22/2019 SUBJECTIVE: The patient is seen and examined at bedside. Her family is present in the room during my visit, her daughter. The patient is basically bedridden. Her appetite is quite poor. She is able to sit up in the chair, but that is all in terms of mobility what she can do. OBJECTIVE: VITAL SIGNS: Blood pressure is 166/82, pulse is 80, temperature is 98.4, respirations 18, O2 saturation is 91% on 4 L by nasal cannula. HEENT: Her pupils are responding to light properly. Sclerae are nonicteric. Oral mucosa is slightly dry. NECK: Supple. LUNGS: Left base has definitely decreased breath sounds diminished at the left base. No rales or crackles. ABDOMEN: Soft, nontender, nondistended. EXTREMITIES: No clubbing cyanosis. There is 1+ peripheral edema, similar bilaterally on both lower extremities. LABORATORY DATA: White count of 7.8, hemoglobin 12.0, hematocrit 34.6, platelet count is 223,000. Sodium 139, potassium 3.7, chloride 114, CO2 is 17, BUN is 7, and creatinine 0.93. Glycemia is ranging from 128 to 150, calcium is 9.3. IMPRESSION: 1. Severe sepsis due to aspiration pneumonia with left lower lobe infiltrate on the chest x-ray. 2. Acute on chronic hypoxia and respiratory failure. 3. Hyponatremia. 4. Hypertension. 5. Hyperlipidemia. 6. Swallow dysfunction. Declining the PEG tube placement. PLAN: We are going to continue her both antibiotics, cefepime and Flagyl. She is on thickened liquids and pureed diet. We will continue that. We will sit her up in the chair today. Continue her DVT prophylaxis with SCDs and heparin. We are going to start her on valsartan since her blood pressure is going up and going to also start her on her furosemide she was taking at home, and her amlodipine. Job ID: [id number]
[2019-09-22] MEDS ORDERED: Gabapentin 300 MG CAP PO SCH (11:00)
[2019-09-22] MEDS: Dextrose 5 %-0.45 % NaCl 1,000 ML IV SCH (13:40)
[2019-09-22] MEDS: Atorvastatin Calcium 10 MG TAB PO SCH (20:37)
[2019-09-22] MEDS: ALPRAZolam 0.25 MG TAB PO SCH (20:38)
[2019-09-22] MEDS: Melatonin 3 MG TAB PO SCH (20:38)
[2019-09-23] MEDS: metroNIDAZOLE 500 MG in Premix Bag 1 BAG IVPB SCH ×3 (01:10→17:39)
[2019-09-23] MEDS ORDERED: ALPRAZolam 0.25 MG TAB PO SCH (01:15)
[2019-09-23] MEDS: Levothyroxine Sodium 125 MCG TAB PO SCH (05:37)
[2019-09-23] MEDS: HYDROcodone/Acetaminophen 5/325 mg Tablet PO PRN ×2 (05:37→22:12)
[2019-09-23] MEDS: Valsartan 80 MG TAB PO SCH (09:50)
[2019-09-23] MEDS: Cefepime 1 GM in Sodium Chloride 0.9% 100 ML IVPB SCH (09:50)
[2019-09-23] MEDS: FLUoxetine HCl 10 MG CAP PO SCH (09:51)
[2019-09-23] MEDS: Metoprolol Tartrate 25 MG TAB PO SCH ×2 (09:52→22:11)
[2019-09-23] MEDS: Oxybutynin ER 5 MG TAB PO SCH (09:53)
[2019-09-23] MEDS: Furosemide 20 MG TAB PO SCH (09:53)
[2019-09-23] MEDS: Amlodipine 10 MG TAB PO SCH (09:53)
[2019-09-23] MEDS: Gabapentin 400 MG CAP PO SCH ×2 (09:53→22:10)
[2019-09-23] MEDS: Saccharomyces boulardii 250 MG CAP PO SCH (09:54)
[2019-09-23] MEDS: Famotidine 20 MG TAB PO SCH (09:54)
[2019-09-23] MEDS: Multivit, Therapeutic 1 TAB PO SCH (09:54)
[2019-09-23] MEDS: Heparin 5,000 UNITS/ML VIAL SC SCH ×2 (09:54→22:11)
[2019-09-23] MEDS: Ascorbic Acid 500 mg Chewable Tablet PO SCH (09:55)
[2019-09-23] MEDS: Cholecalciferol (Vitamin D3) 400 UNITS TAB PO SCH (09:55)
[2019-09-23] MEDS: Dextrose 5 %-0.45 % NaCl 1,000 ML IV SCH ×2 (09:56→21:10)
[2019-09-23] MEDS: Budesonide 0.25 MG/2 ML NEB INH SCH ×2 (11:19→19:48)
--- NOTE | 2019-09-23 12:31 | PRG ---
DATE OF SERVICE: 09/23/2019 SUBJECTIVE: The patient is seen and examined at the bedside. Her granddaughter is present during this visit in the patient's room. She does not feel good this morning. She was not able to sleep much last night. Apparently, she takes Benadryl 50 mg and Xanax 0.25 mg at night at home. Otherwise, she is not able to sleep. Her appetite is at most fair. She is bedridden. OBJECTIVE: VITAL SIGNS: Blood pressure is 163/89, pulse is 87, respirations 20, O2 saturation is 97%. HEENT: Head is atraumatic and normocephalic. Eyes are PERRLA. Sclerae are nonicteric. Conjunctivae are palish. Oral mucosa is moist. NECK: Supple. LUNGS: Breath sounds somewhat diminished at both bases. HEART: S1 and S2 are normal. No S3. No S4. ABDOMEN: Soft and nontender. EXTREMITIES: No clubbing or cyanosis. There is trace edema in both lower extremities. NEUROLOGIC: She follows my commands. She moves her all 4 extremities. LABORATORY DATA: None today. IMPRESSION: 1. Severe sepsis due to aspiration pneumonia with left lower lobe infiltrate on the chest x-ray. 2. Kiblb-wh-rjyitbr hypoxia and respiratory failure, improved. 3. Hyponatremia, improved. 4. Hypertension. 5. Hyperlipidemia. 6. Swallow dysfunction, declining the PEG tube placement. PLAN: We are going to continue on her feeding regimen based on dietitian/real estate agency licensee recommendation. We will continue her cefepime and Flagyl. I am going to make sure that she is going to get Xanax and Benadryl every night. Her blood pressure is still a problem, but she is restarted on her valsartan along with amlodipine and small dose of furosemide and beta-jacqui. She should be able to go home most likely in the next 24 to 48 hours. Job ID: [id number]
[2019-09-23] MEDS: Gabapentin 300 MG CAP PO SCH (12:43)
[2019-09-23] MEDS: ALPRAZolam 0.25 MG TAB PO SCH (22:09)
[2019-09-23] MEDS: Atorvastatin Calcium 10 MG TAB PO SCH (22:10)
[2019-09-23] MEDS: diphenhydrAMINE 12.5 MG/5 ML UDCUP PO SCH (22:10)
[2019-09-23] MEDS: Melatonin 3 MG TAB PO SCH (22:11)
[2019-09-24] MEDS: metroNIDAZOLE 500 MG in Premix Bag 1 BAG IVPB SCH ×3 (01:43→16:09)
[2019-09-24] MEDS: Levothyroxine Sodium 125 MCG TAB PO SCH (06:11)
[2019-09-24] MEDS: Budesonide 0.25 MG/2 ML NEB INH SCH ×2 (06:26→19:34)
[2019-09-24] MEDS: Cefepime 1 GM in Sodium Chloride 0.9% 100 ML IVPB SCH (08:47)
--- NOTE | 2019-09-24 09:20 | PDOC.HOSPP ---
- Subjective Encounter Date: 09/24/19 Encounter Time: 15:00 Subjective: Patient feeling much better. No SOB. Still on 2L NC O2. Usually on RA at home, but has home O2 already for prn use. - Objective Vital Signs & Weight: Vital Signs (12 hours) Temp Pulse Resp BP Pulse Ox 09/24/19 07:39 98.1 F 70 18 164/78 H 92 L 09/24/19 06:25 77 12 96 Weight Admit Weight 203 lb Weight 203 lb I&O: 09/23/19 09/24/19 09/25/19 06:59 06:59 06:59 Intake Total 442 444 Output Total 3 Balance 442 441 Result Diagrams: 09/22/19 06:59 09/22/19 06:59 Hospitalist ROS - Review of Systems Respiratory: denies: cough, shortness of breath Cardiovascular: denies: chest pain, palpitations Gastrointestinal: denies: nausea, vomiting, abdominal pain Neurological: denies: weakness - Medication Medications: Active Medications Generic Name Dose Route Start Last Admin Trade Name Freq PRN Reason Stop Dose Admin Acetaminophen 650 mg 09/19/19 15:09 09/19/19 23:54 Tylenol [place] 650 mg Q4H PRN Administration Headache/Fever/Mild Pain (1-3) Hydrocodone Bitart/Acetaminophen 1 tab 09/21/19 15:32 09/23/19 22:12 [place] 5/325 PO 1 tab Q4H PRN Administration Severe Pain (7-10) Albuterol/Ipratropium 3 ml 09/19/19 03:14 09/24/19 06:25 Duoneb NEB 3 ml Q4H PRN Administration SOB &/or Wheezing Alprazolam 0.25 mg 09/22/19 21:00 09/23/19 22:09 Xanax PO 0.25 mg HS JERMAINE Administration Amlodipine Besylate 10 mg 09/23/19 09:00 09/23/19 09:53 Norvasc PO 10 mg DAILY JERMAINE Administration Ascorbic Acid 500 mg 09/23/19 09:00 09/23/19 09:55 Vitamin C PO 500 mg DAILY JERMAINE Administration Atorvastatin Calcium 10 mg 09/22/19 21:00 09/23/19 22:10 Lipitor PO 10 mg HS JERMAINE Administration Budesonide 0.25 mg 09/21/19 06:30 09/24/19 06:26 Pulmicort Neb Solution INH 0.25 mg BID-RT JERMAINE Administration Calcium Carbonate 1,000 mg 09/19/19 15:09 09/23/19 10:59 Tums PO 1,000 mg Q4H PRN Administration Heartburn or Indigestion Cholecalciferol 200 units 09/23/19 09:00 09/23/19 09:55 Vitamin D PO 200 units DAILY JERMAINE Administration Diphenhydramine HCl 50 mg 09/23/19 21:00 09/23/19 22:10 Benadryl PO 50 mg HS JERMAINE Administration Famotidine 20 mg 09/20/19 09:00 09/23/19 09:54 Pepcid PO 20 mg DAILY JERMAINE Administration Fluoxetine HCl 30 mg 09/23/19 09:00 09/23/19 09:51 Prozac PO 30 mg DAILY JERMAINE Administration Furosemide 20 mg 09/23/19 09:00 09/23/19 09:53 Lasix PO 20 mg DAILY JERMAINE Administration Gabapentin 1,200 mg 09/23/19 21:00 09/23/19 22:10 Neurontin PO 1,200 mg HS JERMAINE Administration Gabapentin 600 mg 09/23/19 12:00 09/23/19 12:43 Neurontin PO 600 mg Q24HR@1200 JERMAINE Administration Gabapentin 1,200 mg 09/23/19 09:00 09/23/19 09:53 Neurontin PO 1,200 mg QAM JERMAINE Administration Heparin Sodium (Porcine) 5,000 units 09/19/19 21:00 09/23/19 22:11 Heparin SC 5,000 units BID JERMAINE Administration Metronidazole 500 mg/ Device 100 mls @ 100 mls/hr 09/19/19 09:00 09/24/19 01: 43 IVPB 100 mls 0100,0900,1700 JERMAINE Administration Cefepime HCl 1 gm/ Sodium 100 mls @ 200 mls/hr 09/22/19 09:00 09/24/19 08:47 Chloride IVPB 100 mls 0900 JERMAINE Administration Dextrose/Sodium Chloride 1,000 mls @ 30 mls/hr 09/21/19 10:49 09/23/19 21:10 D5 1/2 Ns IV 1,000 mls .Q24H JERMAINE Administration Levothyroxine Sodium 125 mcg 09/21/19 06:00 09/24/19 06:11 Synthroid PO Not Given 0600 JERMAINE Loperamide HCl 2 mg 09/22/19 09:41 09/23/19 21:09 Imodium PO 2 mg DAILYPRN PRN Administration Diarrhea/Loose Stools Melatonin 6 mg 09/19/19 21:00 09/23/19 22:11 Melatonin PO 6 mg HS JERMAINE Administration Metoprolol Tartrate 12.5 mg 09/21/19 09:00 09/23/19 22:11 Lopressor PO 12.5 mg BID JERMAINE Administration Multivitamins 1 tab 09/23/19 09:00 09/23/19 09:54 Theragran PO 1 tab DAILY JERMAINE Administration Oxybutynin Chloride 10 mg 09/23/19 09:00 09/23/19 09:53 Ditropan Xl PO 10 mg DAILY JERMAINE Administration Pantoprazole Sodium 40 mg 09/23/19 09:00 09/23/19 09:53 Protonix PO 40 mg DAILY JERMAINE Administration Saccharomyces Boulardii 250 mg 09/21/19 09:00 09/23/19 09:54 Florastor PO 250 mg DAILY JERMAINE Administration Valsartan 320 mg 09/23/19 09:00 09/23/19 09:50 Diovan PO 320 mg DAILY JERMAINE Administration - Exam General Appearance: NAD ENT: normocephalic atraumatic, moist mucosa Heart: RRR, no murmur Respiratory: CTAB, no wheezes, no rales, no ronchi Gastrointestinal: soft, non-tender, non-distended, normal bowel sounds Extremities: no edema Psychiatric: normal affect, normal behavior, A&O x 3 Hosp A/P (1) Aspiration pneumonia Code(s): J69.0 - PNEUMONITIS DUE TO INHALATION OF FOOD AND VOMIT Status: Acute Qualifiers: Laterality: bilateral Plan: On Cefepime, Metronidazole since 09/19/2019, finish 7 days on 09/20/2019 (2) Dysphagia Code(s): R13.10 - DYSPHAGIA, UNSPECIFIED Status: Chronic Plan: Refusing PEG, patient and family desire feeding with risks, ST following (3) Acute and chronic respiratory failure Code(s): J96.20 - ACUTE AND CHR RESP FAILURE, UNSP W HYPOXIA OR HYPERCAPNIA Status: Acute Qualifiers: Respiratory failure complication: hypoxia Qualified Code(s): J96.21 - Acute and chronic respiratory failure with hypoxia Plan: Initially on NRB, now down to 2L NC (4) COPD (chronic obstructive pulmonary disease) Status: Chronic Qualifiers: COPD type: chronic bronchitis (5) Chronic diastolic heart failure Code(s): I50.32 - CHRONIC DIASTOLIC (CONGESTIVE) HEART FAILURE Status: Chronic (6) Hypertension Code(s): I10 - ESSENTIAL (PRIMARY) HYPERTENSION Status: Chronic Qualifiers: (7) Hypothyroidism Code(s): E03.9 - HYPOTHYROIDISM, UNSPECIFIED Status: Chronic Qualifiers: - Plan continue antibiotics, PT/OT, speech therapy Consults: Palliative Care Ready for d/c tomorrow, palliative care has been discussing hospice vs. placement options with patient and family, for now patient will go back home with home health- [facility] Pulmonology Consult: Meds - Medications MAR Reviewed: Yes Medications: Current Medications Acetaminophen (Tylenol) 650 mg PO Q4H PRN PRN Reason: Headache/Fever/Mild Pain (1-3) Acetaminophen (Tylenol) 650 mg [place] Q4H PRN PRN Reason: Headache/Fever/Mild Pain (1-3) Last Admin: 09/19/19 23:54 Dose: 650 mg Hydrocodone Bitart/Acetaminophen ([place] 5/325) 1 tab PO Q4H PRN PRN Reason: Severe Pain (7-10) Last Admin: 09/23/19 22:12 Dose: 1 tab Albuterol/Ipratropium (Duoneb) 3 ml NEB Q4H PRN PRN Reason: SOB &/or Wheezing Last Admin: 09/24/19 06:25 Dose: 3 ml Alprazolam (Xanax) 0.25 mg PO HS [facility] Last Admin: 09/23/19 22:09 Dose: 0.25 mg Amlodipine Besylate (Norvasc) 10 mg PO DAILY [facility] Last Admin: 09/23/19 09:53 Dose: 10 mg Ascorbic Acid (Vitamin C) 500 mg PO DAILY [facility] Last Admin: 09/23/19 09:55 Dose: 500 mg Atorvastatin Calcium (Lipitor) 10 mg PO HS [facility] Last Admin: 09/23/19 22:10 Dose: 10 mg Budesonide (Pulmicort Neb Solution) 0.25 mg INH BID-RT [facility] Last Admin: 09/24/19 06:26 Dose: 0.25 mg Calcium Carbonate (Tums) 1,000 mg PO Q4H PRN PRN Reason: Heartburn or Indigestion Last Admin: 09/23/19 10:59 Dose: 1,000 mg Cholecalciferol (Vitamin D) 200 units PO DAILY [facility] Last Admin: 09/23/19 09:55 Dose: 200 units Diphenhydramine HCl (Benadryl) 50 mg PO HS [facility] Last Admin: 09/23/19 22:10 Dose: 50 mg Doxylamine Succinate (Unisom) 25 mg PO HSPRN PRN PRN Reason: Insomnia Famotidine (Pepcid) 20 mg PO DAILY [facility] Last Admin: 09/23/19 09:54 Dose: 20 mg Fluoxetine HCl (Prozac) 30 mg PO DAILY [facility] Last Admin: 09/23/19 09:51 Dose: 30 mg Furosemide (Lasix) 20 mg PO DAILY [facility] Last Admin: 09/23/19 09:53 Dose: 20 mg Gabapentin (Neurontin) 1,200 mg PO HS [facility] Last Admin: 09/23/19 22:10 Dose: 1,200 mg Gabapentin (Neurontin) 600 mg PO Q24HR@1200 [facility] Last Admin: 09/23/19 12:43 Dose: 600 mg Gabapentin (Neurontin) 1,200 mg PO QAM [facility] Last Admin: 09/23/19 09:53 Dose: 1,200 mg Guaifenesin (Mucinex) 600 mg PO Q12HR PRN PRN Reason: Cough Heparin Sodium (Porcine) (Heparin) 5,000 units SC BID [facility] Last Admin: 09/23/19 22:11 Dose: 5,000 units Metronidazole 500 mg/ Device 100 mls @ 100 mls/hr IVPB 0100,0900,1700 [facility] Last Admin: 09/24/19 01:43 Dose: 100 mls Cefepime HCl 1 gm/ Sodium (Chloride) 100 mls @ 200 mls/hr IVPB 0900 [facility] Last Admin: 09/24/19 08:47 Dose: 100 mls Dextrose/Sodium Chloride (D5 1/2 Ns) 1,000 mls @ 30 mls/hr IV .Q24H [facility] Last Admin: 09/23/19 21:10 Dose: 1,000 mls Labetalol HCl (Normodyne) 10 mg SLOW IVP Q4H PRN PRN Reason: Systolic BP > 180 Levothyroxine Sodium (Synthroid) 125 mcg PO 0600 [facility] Last Admin: 09/24/19 06:11 Dose: Not Given Loperamide HCl (Imodium) 2 mg PO DAILYPRN PRN PRN Reason: Diarrhea/Loose Stools Last Admin: 09/23/19 21:09 Dose: 2 mg Melatonin (Melatonin) 6 mg PO HS [facility] Last Admin: 09/23/19 22:11 Dose: 6 mg Metoprolol Tartrate (Lopressor) 12.5 mg PO BID [facility] Last Admin: 09/23/19 22:11 Dose: 12.5 mg Miscellaneous Medication (Pharmacy To Dose) 1 each IVPB PRN PRN PRN Reason: Pharmacy to dose Multivitamins (Theragran) 1 tab PO DAILY [facility] Last Admin: 09/23/19 09:54 Dose: 1 tab Oxybutynin Chloride (Ditropan Xl) 10 mg PO DAILY [facility] Last Admin: 09/23/19 09:53 Dose: 10 mg Pantoprazole Sodium (Protonix) 40 mg PO DAILY [facility] Last Admin: 09/23/19 09:53 Dose: 40 mg Potassium Chloride (Klor-Con 10) 10 meq PO DAILYPRN PRN PRN Reason: Edema Saccharomyces Boulardii (Florastor) 250 mg PO DAILY [facility] Last Admin: 09/23/19 09:54 Dose: 250 mg Senna/Docusate Sodium (Senokot S) 2 tab PO BIDPRN PRN PRN Reason: Constipation Sodium Chloride (Flush - Normal Saline) 10 ml IVF PRN PRN PRN Reason: Saline Flush Valsartan (Diovan) 320 mg PO DAILY [facility] Last Admin: 09/23/19 09:50 Dose: 320 mg - Allergies Allergies/Adverse Reactions: Allergies Allergy/AdvReac Type Severity Reaction Status Date / Time amoxicillin Allergy Verified 08/04/19 19:58 amoxicillin trihydrate Allergy Diarrhea Verified 08/04/19 19:58 [From Augmentin] ciprofloxacin [From Cipro] Allergy Rash Verified 08/04/19 19:58 clavulanic acid Allergy Verified 08/04/19 19:58 [From Augmentin] clindamycin Allergy Verified 08/04/19 19:58 erythromycin base Allergy Verified 08/04/19 19:58 [From Erythrocin] erythromycin lactobionate Allergy Verified 08/04/19 19:58 [From Erythrocin] Latex, Natural Rubber Allergy Rash Verified 08/04/19 19:58 metolazone [Metolazone] Allergy Verified 08/04/19 19:58 nalbuphine Allergy Verified 08/04/19 19:58 nalbuphine HCl [From Nubain] Allergy Verified 08/04/19 19:58 oxycodone Allergy Verified 08/04/19 19:58 oxycodone HCl Allergy Rash Verified 08/04/19 19:58 [From OxyContin] potassium clavulanate Allergy Diarrhea Verified 08/04/19 19:58 [From Augmentin] zolpidem Allergy Verified 08/04/19 19:58 tramadol [From Ultram] AdvReac Intermediate Verified 08/04/19 19:58 zolpidem tartrate AdvReac Intermediate "crazy" Verified 08/04/19 19:58 [From Ambien] fentanyl [From Duragesic] AdvReac Mild Anxiety Verified 08/04/19 19:58
[2019-09-24] MEDS: Gabapentin 400 MG CAP PO SCH ×2 (09:45→22:11)
[2019-09-24] MEDS: FLUoxetine HCl 10 MG CAP PO SCH (09:45)
[2019-09-24] MEDS: Heparin 5,000 UNITS/ML VIAL SC SCH ×2 (09:45→22:11)
[2019-09-24] MEDS: Oxybutynin ER 5 MG TAB PO SCH (09:46)
[2019-09-24] MEDS: Saccharomyces boulardii 250 MG CAP PO SCH (09:48)
[2019-09-24] MEDS: Metoprolol Tartrate 25 MG TAB PO SCH ×2 (09:48→22:10)
[2019-09-24] MEDS: Multivit, Therapeutic 1 TAB PO SCH (09:49)
[2019-09-24] MEDS: Ascorbic Acid 500 mg Chewable Tablet PO SCH (09:49)
[2019-09-24] MEDS: Famotidine 20 MG TAB PO SCH (09:49)
[2019-09-24] MEDS: Furosemide 20 MG TAB PO SCH (09:49)
[2019-09-24] MEDS: Amlodipine 10 MG TAB PO SCH (09:49)
[2019-09-24] MEDS: Valsartan 80 MG TAB PO SCH (09:50)
[2019-09-24] MEDS: Cholecalciferol (Vitamin D3) 400 UNITS TAB PO SCH (09:51)
[2019-09-24] MEDS: Gabapentin 300 MG CAP PO SCH (12:36)
[2019-09-24] MEDS: HYDROcodone/Acetaminophen 5/325 mg Tablet PO PRN ×2 (14:49→20:53)
[2019-09-24 19:08] VITALS: TEMP 98.2
[2019-09-24] MEDS: Atorvastatin Calcium 10 MG TAB PO SCH (22:10)
[2019-09-24] MEDS: ALPRAZolam 0.25 MG TAB PO SCH (22:10)
[2019-09-24] MEDS: Melatonin 3 MG TAB PO SCH (22:10)
[2019-09-24] MEDS: diphenhydrAMINE 12.5 MG/5 ML UDCUP PO SCH (22:11)
[2019-09-25] MEDS: metroNIDAZOLE 500 MG in Premix Bag 1 BAG IVPB SCH ×2 (00:38→08:47)
[2019-09-25] MEDS: HYDROcodone/Acetaminophen 5/325 mg Tablet PO PRN ×3 (04:16→12:25)
[2019-09-25] MEDS: Levothyroxine Sodium 125 MCG TAB PO SCH (04:45)
[2019-09-25] MEDS: Budesonide 0.25 MG/2 ML NEB INH SCH (06:23)
[2019-09-25 07:39] VITALS: BP 134/76
--- NOTE | 2019-09-25 08:36 | PDOC.HOSPP ---
- Subjective Encounter Date: 09/25/19 Encounter Time: 09:30 Subjective: Patient feeling back to baseline. Trouble getting around with PT but she states this is typical for her and she refuses SNF, wants to go back home with caring for her. Has home O2 already. - Objective Vital Signs & Weight: Vital Signs (12 hours) Temp Pulse Resp BP Pulse Ox 09/25/19 07:35 98.2 F 86 22 H 134/76 96 09/25/19 06:23 65 14 95 09/24/19 20:50 96 Weight Admit Weight 203 lb Weight 203 lb I&O: 09/24/19 09/25/19 09/26/19 06:59 06:59 06:59 Intake Total 444 2390 Output Total 3 1 Balance 441 8973 Result Diagrams: 09/22/19 06:59 09/22/19 06:59 Hospitalist ROS - Review of Systems Respiratory: denies: cough, shortness of breath Cardiovascular: denies: chest pain, palpitations Gastrointestinal: denies: nausea, vomiting, abdominal pain - Medication Medications: Active Medications Generic Name Dose Route Start Last Admin Trade Name Freq PRN Reason Stop Dose Admin Acetaminophen 650 mg 09/19/19 15:09 09/19/19 23:54 Tylenol [place] 650 mg Q4H PRN Administration Headache/Fever/Mild Pain (1-3) Hydrocodone Bitart/Acetaminophen 1 tab 09/21/19 15:32 09/25/19 04:16 [place] 5/325 PO 1 tab Q4H PRN Administration Severe Pain (7-10) Albuterol/Ipratropium 3 ml 09/19/19 03:14 09/24/19 06:25 Duoneb NEB 3 ml Q4H PRN Administration SOB &/or Wheezing Alprazolam 0.25 mg 09/22/19 21:00 09/24/19 22:10 Xanax PO 0.25 mg HS JERMAINE Administration Amlodipine Besylate 10 mg 09/23/19 09:00 09/24/19 09:49 Norvasc PO 10 mg DAILY JERMAINE Administration Ascorbic Acid 500 mg 09/23/19 09:00 09/24/19 09:49 Vitamin C PO 500 mg DAILY JERMAINE Administration Atorvastatin Calcium 10 mg 09/22/19 21:00 09/24/19 22:10 Lipitor PO 10 mg HS JERMAINE Administration Budesonide 0.25 mg 09/21/19 06:30 09/25/19 06:23 Pulmicort Neb Solution INH 0.25 mg BID-RT JERMAINE Administration Calcium Carbonate 1,000 mg 09/19/19 15:09 09/23/19 10:59 Tums PO 1,000 mg Q4H PRN Administration Heartburn or Indigestion Cholecalciferol 200 units 09/23/19 09:00 09/24/19 09:51 Vitamin D PO 200 units DAILY JERMAINE Administration Diphenhydramine HCl 50 mg 09/23/19 21:00 09/24/19 22:11 Benadryl PO 50 mg HS JERMAINE Administration Famotidine 20 mg 09/20/19 09:00 09/24/19 09:49 Pepcid PO 20 mg DAILY JERMAINE Administration Fluoxetine HCl 30 mg 09/23/19 09:00 09/24/19 09:45 Prozac PO 30 mg DAILY JERMAINE Administration Furosemide 20 mg 09/23/19 09:00 09/24/19 09:49 Lasix PO 20 mg DAILY JERMAINE Administration Gabapentin 1,200 mg 09/23/19 21:00 09/24/19 22:11 Neurontin PO 1,200 mg HS JERMAINE Administration Gabapentin 600 mg 09/23/19 12:00 09/24/19 12:36 Neurontin PO 600 mg Q24HR@1200 JERMAINE Administration Gabapentin 1,200 mg 09/23/19 09:00 09/24/19 09:45 Neurontin PO 1,200 mg QAM JERMAINE Administration Heparin Sodium (Porcine) 5,000 units 09/19/19 21:00 09/24/19 22:11 Heparin SC 5,000 units BID JERMIANE Administration Metronidazole 500 mg/ Device 100 mls @ 100 mls/hr 09/19/19 09:00 09/25/19 00: 38 IVPB 100 mls 0100,0900,1700 JERMAINE Administration Dextrose/Sodium Chloride 1,000 mls @ 30 mls/hr 09/21/19 10:49 09/23/19 21:10 D5 1/2 Ns IV 1,000 mls .Q24H JERMAINE Administration Levothyroxine Sodium 125 mcg 09/21/19 06:00 09/25/19 04:45 Synthroid PO 125 mcg 0600 JERMAINE Administration Loperamide HCl 2 mg 09/22/19 09:41 09/23/19 21:09 Imodium PO 2 mg DAILYPRN PRN Administration Diarrhea/Loose Stools Melatonin 6 mg 09/19/19 21:00 09/24/19 22:10 Melatonin PO 6 mg HS JERMAINE Administration Metoprolol Tartrate 12.5 mg 09/21/19 09:00 09/24/19 22:10 Lopressor PO 12.5 mg BID JERMAINE Administration Multivitamins 1 tab 09/23/19 09:00 09/24/19 09:49 Theragran PO 1 tab DAILY JERMAINE Administration Oxybutynin Chloride 10 mg 09/23/19 09:00 09/24/19 09:46 Ditropan Xl PO 10 mg DAILY JERMAINE Administration Pantoprazole Sodium 40 mg 09/23/19 09:00 09/24/19 09:48 Protonix PO 40 mg DAILY JERMAINE Administration Saccharomyces Boulardii 250 mg 09/21/19 09:00 09/24/19 09:48 Florastor PO 250 mg DAILY JERMAINE Administration Valsartan 320 mg 09/23/19 09:00 09/24/19 09:50 Diovan PO 320 mg DAILY JERMAINE Administration - Exam General Appearance: NAD Eye: anicteric sclera ENT: normocephalic atraumatic, moist mucosa Heart: RRR, no murmur Respiratory: CTAB, no wheezes, no rales, no ronchi Gastrointestinal: soft, non-tender, non-distended, normal bowel sounds Psychiatric: normal affect, normal behavior, A&O x 3 Hosp A/P (1) Aspiration pneumonia Code(s): J69.0 - PNEUMONITIS DUE TO INHALATION OF FOOD AND VOMIT Status: Acute Qualifiers: Laterality: bilateral (2) Dysphagia Code(s): R13.10 - DYSPHAGIA, UNSPECIFIED Status: Chronic (3) Acute and chronic respiratory failure Code(s): J96.20 - ACUTE AND CHR RESP FAILURE, UNSP W HYPOXIA OR HYPERCAPNIA Status: Acute Qualifiers: Respiratory failure complication: hypoxia Qualified Code(s): J96.21 - Acute and chronic respiratory failure with hypoxia (4) COPD (chronic obstructive pulmonary disease) Status: Chronic Qualifiers: COPD type: chronic bronchitis (5) Chronic diastolic heart failure Code(s): I50.32 - CHRONIC DIASTOLIC (CONGESTIVE) HEART FAILURE Status: Chronic (6) Hypertension Code(s): I10 - ESSENTIAL (PRIMARY) HYPERTENSION Status: Chronic Qualifiers: (7) Hypothyroidism Code(s): E03.9 - HYPOTHYROIDISM, UNSPECIFIED Status: Chronic Qualifiers: - Plan D/C home today, patient will go back home with home health- [facility], has home O2 already, f/u PCP in 1-2 weeks
[2019-09-25] MEDS: Gabapentin 400 MG CAP PO SCH (08:37)
[2019-09-25] MEDS: Oxybutynin ER 5 MG TAB PO SCH (08:38)
[2019-09-25] MEDS: Saccharomyces boulardii 250 MG CAP PO SCH (08:38)
[2019-09-25] MEDS: Valsartan 80 MG TAB PO SCH (08:38)
[2019-09-25] MEDS: FLUoxetine HCl 10 MG CAP PO SCH (08:39)
[2019-09-25] MEDS: Metoprolol Tartrate 25 MG TAB PO SCH (08:40)
[2019-09-25] MEDS: Furosemide 20 MG TAB PO SCH (08:41)
[2019-09-25] MEDS: Ascorbic Acid 500 mg Chewable Tablet PO SCH (08:41)
[2019-09-25] MEDS: Cholecalciferol (Vitamin D3) 400 UNITS TAB PO SCH (08:42)
[2019-09-25] MEDS: Amlodipine 10 MG TAB PO SCH (08:44)
[2019-09-25] MEDS: Famotidine 20 MG TAB PO SCH (09:00)
[2019-09-25] MEDS: Multivit, Therapeutic 1 TAB PO SCH (09:00)
[2019-09-25] MEDS ORDERED: Cefepime 1 GM in Sodium Chloride 0.9% 100 ML IVPB SCH (09:00)
[2019-09-25] MEDS: Heparin 5,000 UNITS/ML VIAL SC SCH (09:00)
[2019-09-25] MEDS: Dextrose 5 %-0.45 % NaCl 1,000 ML IV SCH (10:30)
--- NOTE | 2019-09-25 10:42 | DIS ---
DATE OF ADMISSION: 09/19/2019 DATE OF DISCHARGE: 09/25/2019 PRIMARY CARE PHYSICIAN: Dr. Deepak Ricardo. REASON FOR ADMISSION: Pneumonia. DISCHARGE DIAGNOSES: 1. Bilateral aspiration pneumonia. 2. Dysphagia with aspiration. 3. [id number] respiratory failure. 4. Chronic obstructive pulmonary disease. 5. Chronic diastolic congestive heart failure. 6. Hypertension. 7. Hypothyroidism. PROCEDURES: None. CONSULTATIONS: None. SUMMARY OF HOSPITAL COURSE: This is a 79-year-old white female with a history of atrial fibrillation, dysphagia, COPD, hypertension, chronic renal failure. She presented to the emergency room with fever and cough, was found to have bilateral pneumonia, likely aspiration pneumonia. The patient was admitted and given IV antibiotics. She was seen by Speech Therapy, who recommended that she was not safe to swallow. However, the patient determined that she wanted to continue doing taking food with risks. She is on mechanical soft and nectar thick liquid diet. She improved over hospitalization. She initially was requiring large amounts of oxygen. She was able to be weaned down to 2 L feeling much better. She did have some trouble getting around physical therapy, however, this is typical for her when she was in the hospital. It was recommended that she go to a detention facility, however, the patient refused and determined to go back home with Home Health and her 24-hour care. On the day of discharge, she did complete a 7-day course of IV antibiotics. White blood cell count was back down to normal. She was afebrile and feeling back to her baseline other than requiring a small amount of oxygen. She does have oxygen at home that she uses at [facility] so she can use that when she goes back home. DISCHARGE MANAGEMENT: Discharged home with [facility] for physical, occupational, and speech therapy. ACTIVITY: As tolerated. DIET: Regular diet with mechanical soft solids and nectar thick liquids. FOLLOWUP: Follow up with Dr. Ricardo in 1 to 2 weeks. DISCHARGE MEDICATIONS: Resume all home medications. 1. Alprazolam 0.25 mg at night. 2. Amlodipine 10 mg daily. 3. Vitamin C 500 mg daily. 4. Atorvastatin 10 mg at night. 5. Budesonide 2 inhalations twice a day via nebulizer. 6. Vitamin D3 of 200 units daily. 7. Unisom 25 mg at night. 8. Prozac 30 mg daily. 9. Furosemide 20 mg daily. 10. Mucinex extended release 600 mg twice a day. 11. Levothyroxine 125 mcg daily. 12. Loperamide 2 mg daily. 13. Metoprolol tartrate 25 mg daily. 14. Centrum tablet one daily. 15. Oxybutynin extended release 10 mg daily. 16. Protonix 40 mg daily. 17. Potassium chloride 10 mEq daily. 18. . 19. Valsartan 320 mg daily. 20. Benadryl 1 to 2 caps at night as needed. 21. Gabapentin 600 mg 2 tablets in the morning, 1 tablet at noon, and 2 tablets at night. 22. [place] as needed. Job ID: [id number]
[2019-09-25] MEDS: Gabapentin 300 MG CAP PO SCH (12:25)
== END 2019-09-25 12:57 | disposition home health service (06) | DRG 177 ==
LOC: ERS 01:22 → T4-A 02:56
PROVIDERS: ADMIT Internal Medicine; ATTEND Internal Medicine
DX: J69.0 Pneumonitis due to inhalation of food and vomit (principal); J96.21 Acute and chronic respiratory failure with hypoxia; A41.9 Sepsis, unspecified organism; Z51.5 Encounter for palliative care; R65.20 Severe sepsis without septic shock; N17.9 Acute kidney failure, unspecified; N39.0 Urinary tract infection, site not specified; E87.1 Hypo-osmolality and hyponatremia; E44.0 Moderate protein-calorie malnutrition; I13.0 Hypertensive heart and chronic kidney disease with heart failure and stage 1 through stage 4 chronic kidney disease, or unspecified chronic kidney disease; I50.32 Chronic diastolic (congestive) heart failure; I48.91 Unspecified atrial fibrillation; K21.9 Gastro-esophageal reflux disease without esophagitis; E03.9 Hypothyroidism, unspecified; E78.5 Hyperlipidemia, unspecified; J44.9 Chronic obstructive pulmonary disease, unspecified; F41.9 Anxiety disorder, unspecified; F32.9 Major depressive disorder, single episode, unspecified; D63.1 Anemia in chronic kidney disease; N18.3 Chronic kidney disease, stage 3 (moderate); R13.10 Dysphagia, unspecified; G47.00 Insomnia, unspecified; E66.9 Obesity, unspecified; Z68.36 Body mass index [BMI] 36.0-36.9, adult; Z90.49 Acquired absence of other specified parts of digestive tract; Z90.710 Acquired absence of both cervix and uterus; Z88.5 Allergy status to narcotic agent; Z88.2 Allergy status to sulfonamides; Z88.8 Allergy status to other drugs, medicaments and biological substances; Z88.1 Allergy status to other antibiotic agents; Z91.040 Latex allergy status; Z79.890 Hormone replacement therapy; Z79.899 Other long term (current) drug therapy; Z99.81 Dependence on supplemental oxygen
CPT/HCPCS: 36415; 36416; 51701; 71045; 80048; 80053; 80202; 81003; 81015; 83605; 83735; 83880; 85025; 87040; 87086; 87149; 87804; 93005; 94640; 96365; 96367; J0692; J1200; J1644; J1956; J2543; J3370; J3490; J7620; J7626; Q0163; S0028

== ENCOUNTER 2019-10-04 20:13 | Inpatient (IN) | payer MEDICARE, OTHER ==
[2019-10-04 21:16] LABS: #Basophils 0.1 thou/uL (0.0-0.2); #Eosinphils 0.7 thou/uL (0.0-0.7); #Lymphocytes 1.9 thou/uL (1.20-3.40); #Monocytes 0.9 thou/uL (0.11-0.59); #Neutrophils 3.6 thou/uL (1.40-6.50); %Basophils 0.9 % (0.0-1.0); %Eosinophils 9.7 % (0.0-10.0); %Lymphocytes 26.8 % (21.0-51.0); %Neutrophils 49.5 % (42.0-75.0); Hemoglobin 10.8 g/dL (12.0-16.0); Mean Corpuscular HGB CONC 33.5 g/dL (32.0-36.0); Mean Corpuscular Hemoglobin 31.3 pg (27.0-31.0); Mean Corpuscular Volume 93.3 fL (78.0-98.0); Mean Platelet Volume 7.6 fL (7.4-10.4); Platelet Count 244 thou/uL (130-400); Red Blood Cell (RBC) Count 3.47 mill/uL (4.20-5.40); White Blood Cell (WBC) Count 7.2 thou/uL (4.8-10.8)
[2019-10-04 21:40] LABS: ALT (SGPT) 12 U/L (8-55); AST (SGOT) 21 U/L (5-34); Albumin 3.5 g/dL (3.4-4.8); Alkaline Phosphatase 132 U/L (40-110); Anion Gap 16 mmol/L (10-20); BUN (Urea Nitrogen) 23 mg/dL (9.8-20.1); Bilirubin, Total 0.3 mg/dL (0.2-1.2); Calc. Creatinine Clearance 0 mL/min (70-130); Calcium 8.8 mg/dL (7.8-10.44); Carbon Dioxide 18 mmol/L (23-31); Chloride 109 mmol/L (98-107); Estimated GFR-MDRD 32; Globulin 3.2 g/dL (2.4-3.5); Glucose 118 mg/dL (83-110); Potassium 4.9 mmol/L (3.5-5.1); Protein, Total 6.7 g/dL (6.0-8.3); Sodium 138 mmol/L (136-145)
--- NOTE | 2019-10-04 22:01 | RAD ---
PORTABLE AP CHEST X-RAY: 10/04/19 HISTORY: Cough. COMPARISON: 09/20/19. FINDINGS: The cardiac silhouette remains enlarged. The pulmonary vasculature is within normal limits. Vascular calcification seen in the thoracic aorta. There is linear increased densities at each lung base over all similar to the prior exam, which may represent atelectasis or possibly scarring. No new consolida tion or pleural fluid is seen. There is persistent elevation of the lateral left hemidiaphragm and bl unting of the left lateral costophrenic angle which may be related to scarring and/or residual small left pleural effusion. Chest is overall stable compared to the prior exam. IMPRESSION: 1. Stable bibasilar linear densities which could be related to scarring and/or atelectasis. Pneu monia at either lung base could not be entirely excluded. 2. Persistent blunting left lateral costophrenic angle which may represent small pleural effusio n versus pleural and parenchymal scarring. POS: [facility]
[2019-10-04 22:25] LABS: Bacteria/HPF None Seen HPF (None Seen); Bilirubin Negative (Negative); Blood, Urine Negative (Negative); Clarity Clear (Clear); Glucose, Urine (Dipstick) Normal (Negative); Leukocyte 75 Leu/uL (Negative); Nitrite Negative (Negative); Protein, Urine (Dipstick) Negative (Neg-Trace); RBC/HPF None Seen HPF (0-3); Renal Epithelial 0-3 HPF (None Seen); Squamous Epithelial 0-3 HPF (0-3); Urobilinogen Normal mg/dL (Less than 2); WBC/HPF 0-3 HPF (0-3)
[2019-10-04] MEDS ORDERED: HYDROcodone/Acetaminophen 10/325 mg Tablet ONE (23:42)
[2019-10-04] MEDS ORDERED: Cefepime 2 GM VIAL ONE (23:57)
[2019-10-05] MEDS ORDERED: Sodium Chloride 0.9% 1,000 ML IV SCH ×2 (02:06→04:36)
[2019-10-05] MEDS ORDERED: Ondansetron ODT 4 MG TAB SL PRN (02:06)
[2019-10-05] MEDS ORDERED: Acetaminophen 325 MG TAB PO PRN (02:06)
[2019-10-05] MEDS ORDERED: Ondansetron PF 4 MG/2 ML Vial IVP PRN (02:06)
[2019-10-05] MEDS ORDERED: Loperamide HCl 2 MG CAP PO PRN (03:09)
[2019-10-05] MEDS ORDERED: ALPRAZolam 0.25 MG TAB PO SCH (03:45)
[2019-10-05] MEDS: HYDROcodone/Acetaminophen 10/325 mg Tablet PO PRN ×5 (03:53→21:50)
--- NOTE | 2019-10-05 04:10 | PDOC.HHP ---
Hospitalist HPI - History of Present Illness "feeling bad" History of Present Illness: This is a 79 year old female with a past medical history of GERD, hypothyroidism , hypertension, questionable asthma/COPD, diastolic heart failure, hyperlipidemia, who presented to the emergency room with feeling bad overall for the past 6 weeks. She reports an occasional productive cough that has gotten worst over the past one week and some chills but no fever. She denies sick contacts, denies runny nose, sore throat, or chest pain. She denies worsening shortness of breath and says she uses oxygen at home as needed. She reports some intermittent burning pain in her urine, but denies frequency or urgency. She went to see her PCP who told her she had a UTI and prescribed her an antibiotic, but then five minutes later she was called back and told that she couldn't take that medicine and to go to the hospital instead. She was not told whether this was due to an allergy or if it was a resistant infection, just stated "it was the strangest phone call." She denies abdominal pain, nausea, vomiting, constipation or worsening diarrhea. The patient was recently discharged from the hospital on 09/25 for aspiration pneumonia. She was seen by speech and thought not to be safe to swallow but was placed on mechanical soft and nectar thick liquid diet due to patient insistence with risks of aspiration. ED Course: In the ER, the patient presented with a temp of 99.7, BP 157/68, oxygen saturation 96% on 2L of oxygen. Per ER staff she had some rigors. Labs showed no white blood cell count but creatinine 1.55. Flu swab was negative. She had a chest X ray which showed scarring vs atelectasis, cannot exclude pneumonia and possible small left pleural effusion vs pleural effusion and parenchymal scarring. UA unremarkable with only 0-3 WBC. She was given 1L bolus, vancomycin , cefepime and levaquin in the ER for possible HCAP. Hospitalist ROS - Review of Systems Constitutional: reports: chills. denies: fever Respiratory: reports: cough, shortness of breath Cardiovascular: denies: chest pain, palpitations, orthopnea, paroxysmal noc. dyspnea Gastrointestinal: reports: diarrhea. denies: nausea, vomiting, abdominal pain Genitourinary: denies: dysuria, frequency Skin: denies: lesions Neurological: denies: weakness, numbness - Medication Medications: Active Medications Generic Name Dose Route Start Last Admin Trade Name Freq PRN Reason Stop Dose Admin Hydrocodone Bitart/Acetaminophen 1 tab 10/05/19 03:09 10/05/19 03:53 [place] 10/325 PO 1 tab Q4HR PRN Administration Pain Alprazolam 0.25 mg 10/05/19 03:45 10/05/19 04:05 Xanax PO 10/05/19 05:45 0.25 mg NOW JERMAINE Administration Sodium Chloride 1,000 mls @ 125 mls/hr 10/05/19 02:06 10/05/19 02:46 Normal Saline 0.9% IV 10/05/19 12:14 Not Given .Q8H [facility] Hospitalist History - Past Medical History Cardiac: reports: CHF, HTN Pulmonary: reports: COPD Gastrointestinal: reports: GERD (chronic diarrhea), Other (chronic diarrhea) Psych: reports: Anxiety Musculoskeletal: reports: Other (chronic pain) Infectious Disease: reports: Herpes zoster (in the past) Endocrine: reports: Hypothyroidism - Past Surgical History Past Surgical History: reports: Cholecystectomy, Hysterectomy Other Surgical History: Back surgery - Family History Other Family History: Father of an NC - Social History Smoking Status: Never smoker Alcohol: reports: None - Exam General Appearance: NAD, awake alert General - other findings: on 2L oxygen. Overweight Eye: PERRL, anicteric sclera ENT: normocephalic atraumatic, no oropharyngeal lesions Neck: supple, symmetric, no JVD, no thyromegaly Heart: RRR Heart - other findings: systolic murmur left second intercostal space Respiratory - other findings: bilateral crackles at the bases Gastrointestinal: soft, non-tender, non-distended Extremities: 1+ LE edema Extremities - other findings: mild pitting with tenderness bilaterally Skin: normal turgor, no lesions, no rashes Neurological: cranial nerve grossly intact, normal sensation to touch, no focal deficits, no new deficit Musculoskeletal: normal tone, normal strength, no muscle wasting Psychiatric: normal affect, normal behavior, A&O x 3 Hospitalist Results - Labs Result Diagrams: 10/04/19 21:07 10/04/19 21:07 Lab results: WBC 7.2 thou/uL (4.8-10.8) 10/04/19 21:07 Hgb 10.8 g/dL (12.0-16.0) L 10/04/19 21:07 Hct 32.4 % (36.0-47.0) L 10/04/19 21:07 MCV 93.3 fL (78.0-98.0) 10/04/19 21:07 Plt Count 244 thou/uL (130-400) 10/04/19 21:07 Neutrophils % 49.5 % (42.0-75.0) 10/04/19 21:07 Sodium 138 mmol/L (136-145) 10/04/19 21:07 Potassium 4.9 mmol/L (3.5-5.1) 10/04/19 21:07 Chloride 109 mmol/L (98-107) H 10/04/19 21:07 Carbon Dioxide 18 mmol/L (23-31) L 10/04/19 21:07 BUN 23 mg/dL (9.8-20.1) H 10/04/19 21:07 Creatinine 1.55 mg/dL (0.6-1.1) H 10/04/19 21:07 Glucose 118 mg/dL (83-110) H 10/04/19 21:07 Lactic Acid 1.6 mmol/L (0.5-2.2) 10/04/19 21:07 Calcium 8.8 mg/dL (7.8-10.44) 10/04/19 21:07 Total Bilirubin 0.3 mg/dL (0.2-1.2) 10/04/19 21:07 AST 21 U/L (5-34) 10/04/19 21:07 ALT 12 U/L (8-55) 10/04/19 21:07 Alkaline Phosphatase 132 U/L (40-110) H 10/04/19 21:07 Serum Total Protein 6.7 g/dL (6.0-8.3) 10/04/19 21:07 Albumin 3.5 g/dL (3.4-4.8) 10/04/19 21:07 Urine Ketones Negative mg/dL (Negative) 10/04/19 22:07 Urine Blood Negative (Negative) 10/04/19 22:07 Urine Nitrite Negative (Negative) 10/04/19 22:07 Ur Leukocyte Esterase 75 Huma/uL (Negative) A 10/04/19 22:07 Urine RBC None Seen HPF (0-3) 10/04/19 22:07 Urine WBC 0-3 HPF (0-3) 10/04/19 22:07 Ur Squamous Epith Cells 0-3 HPF (0-3) 10/04/19 22:07 Urine Bacteria None Seen HPF (None Seen) 10/04/19 22:07 Hospitalist H&P A/P - Plan Plan: Chest Xray: bibasilar linear densities which could be atelectasis/scarring or pneumonia This is a 79 year old female with past medical history of diastolic CHF, chronic respiratory failure, questionable asthma/COPD who presented to the ER with feeling lousy, having a productive cough with chills, chest X ray showing questionable pneumonia #Possible aspiration pneumonia # Chronic respiratory failure - from possible COPD/asthma -patient with productive cough, Xray showing bibasilar densities which don't look that impressive, but given her history of aspiration, will treat as aspiration pneumonia -continue IV vanc, cefepime, add flagyl for anaerobic coverage. Blood cultures, sputum cultures pending - speech consult in the morning #NIKI - creatinine 1.55, will continue IV fluids #Anemia - Hb , will check B12 folate #Hypertension - hold valsartan and metoprolol for now Chronic issues: #GERD- protonix #Depression - fluoxetine #Hypothyroidism - levothyroxine #Hyperlipidemia - statin DVT prophylaxis: heparin SC Code status: DNR
[2019-10-05] MEDS ORDERED: guaiFENesin/DM ER PO SCH (05:30)
[2019-10-05 05:59] VITALS: BMI 36.6
[2019-10-05] MEDS: Levothyroxine Sodium 125 MCG TAB PO SCH (05:59)
[2019-10-05] MEDS: metroNIDAZOLE 500 MG in Premix Bag 1 BAG IVPB SCH ×3 (05:59→21:51)
[2019-10-05] MEDS: Cefepime 2 GM in Sodium Chloride 0.9% 100 ML IVPB SCH ×2 (06:00→17:44)
[2019-10-05 06:10] LABS: Hemoglobin 9.2 g/dL (12.0-16.0); Mean Corpuscular HGB CONC 32.9 g/dL (32.0-36.0); Mean Corpuscular Hemoglobin 30.3 pg (27.0-31.0); Mean Corpuscular Volume 92.3 fL (78.0-98.0); Mean Platelet Volume 7.6 fL (7.4-10.4); Platelet Count 214 thou/uL (130-400); Red Blood Cell (RBC) Count 3.03 mill/uL (4.20-5.40); White Blood Cell (WBC) Count 5.2 thou/uL (4.8-10.8)
[2019-10-05] MEDS: Budesonide 0.25 MG/2 ML NEB NEB SCH ×2 (06:27→18:30)
[2019-10-05 06:31] LABS: Anion Gap 13 mmol/L (10-20); BUN (Urea Nitrogen) 21 mg/dL (9.8-20.1); Calc. Creatinine Clearance 53 mL/min (70-130); Carbon Dioxide 20 mmol/L (23-31); Chloride 111 mmol/L (98-107); Estimated GFR-MDRD 42; Glucose 104 mg/dL (83-110); Potassium 4.8 mmol/L (3.5-5.1); Sodium 139 mmol/L (136-145)
[2019-10-05] MEDS: Gabapentin 400 MG CAP PO SCH ×2 (08:47→21:50)
[2019-10-05] MEDS: Heparin 5,000 UNITS/ML VIAL SC SCH ×3 (08:47→21:49)
[2019-10-05] MEDS: Ascorbic Acid 500 mg Chewable Tablet PO SCH (08:48)
[2019-10-05] MEDS: Saccharomyces boulardii 250 MG CAP PO SCH (08:48)
[2019-10-05] MEDS: Multivitamin W/ Minerals 1 TAB PO SCH (08:48)
[2019-10-05] MEDS: FLUoxetine HCl 10 MG CAP PO SCH (08:48)
[2019-10-05] MEDS: Cholecalciferol (Vitamin D3) 400 UNITS TAB PO SCH (08:58)
--- NOTE | 2019-10-05 12:15 | PDOC.HOSPP ---
- Subjective Encounter Date: 10/05/19 Encounter Time: 09:15 Subjective: No specific complaint.. - Objective Vital Signs & Weight: Vital Signs (12 hours) Temp Pulse Resp BP Pulse Ox 10/05/19 12:00 97.9 F 72 20 126/60 93 L 10/05/19 08:00 98.2 F 77 18 150/75 H 92 L 10/05/19 04:11 98.2 F 79 20 121/65 92 L 10/05/19 02:10 98.1 F 79 20 144/70 H 94 L Weight Weight 199 lb 15.348 oz Result Diagrams: 10/05/19 05:35 10/05/19 05:35 Hospitalist ROS - Medication Medications: Active Medications Generic Name Dose Route Start Last Admin Trade Name Freq PRN Reason Stop Dose Admin Hydrocodone Bitart/Acetaminophen 1 tab 10/05/19 03:09 10/05/19 08:49 [place] 10/325 PO 1 tab Q4HR PRN Administration Pain Ascorbic Acid 500 mg 10/05/19 09:00 10/05/19 08:48 Vitamin C PO 500 mg DAILY JERMAINE Administration Budesonide 0.25 mg 10/05/19 06:30 10/05/19 06:27 Pulmicort Neb Solution NEB Not Given BID-RT JERMAINE Cholecalciferol 200 units 10/05/19 09:00 10/05/19 08:58 Vitamin D PO 200 units DAILY JERMAINE Administration Fluoxetine HCl 30 mg 10/05/19 09:00 10/05/19 08:48 Prozac PO 30 mg DAILY JERMAINE Administration Gabapentin 1,200 mg 10/05/19 09:00 10/05/19 08:47 Neurontin PO 1,200 mg BID JERMAINE Administration Heparin Sodium (Porcine) 5,000 units 10/05/19 09:00 10/05/19 08:47 Heparin SC 5,000 units TID JERMAINE Administration Sodium Chloride 1,000 mls @ 75 mls/hr 10/05/19 04:36 10/05/19 06:41 Normal Saline 0.9% IV 10/05/19 12:14 Not Given .[id number] JERMAINE Metronidazole 500 mg/ Device 100 mls @ 100 mls/hr 10/05/19 05:00 10/05/19 05: 59 IVPB 100 mls 0500,1300,2100 JERMAINE Administration Cefepime HCl 2 gm/ Sodium 100 mls @ 200 mls/hr 10/05/19 06:00 10/05/19 06:00 Chloride IVPB 100 mls 0600,1800 JERMAINE Administration Iron/Minerals/Multivitamins 1 tab 10/05/19 09:00 10/05/19 08:48 Theragran M PO 1 tab DAILY JERMAINE Administration Levothyroxine Sodium 125 mcg 10/05/19 06:00 10/05/19 05:59 Synthroid PO 125 mcg 0600 JERMAINE Administration Pantoprazole Sodium 40 mg 10/05/19 09:00 10/05/19 08:49 Protonix PO 40 mg DAILY JERMAINE Administration Saccharomyces Boulardii 250 mg 10/05/19 09:00 10/05/19 08:48 Florastor PO 250 mg DAILY JERMAINE Administration - Exam General Appearance: NAD Neck: no JVD Heart: RRR Respiratory: CTAB Gastrointestinal: soft Extremities: 2+ LE edema Neurological: no weakness Psychiatric: normal affect Hosp A/P (1) PNA (pneumonia) Code(s): J18.9 - PNEUMONIA, UNSPECIFIED ORGANISM Status: Acute Qualifiers: Pneumonia type: aspiration pneumonia Plan: Possibly due to aspiration.. (2) COPD (chronic obstructive pulmonary disease) Status: Chronic Qualifiers: COPD type: chronic bronchitis (3) Hypertension Code(s): I10 - ESSENTIAL (PRIMARY) HYPERTENSION Status: Chronic Qualifiers: (4) Acute kidney injury Code(s): N17.9 - ACUTE KIDNEY FAILURE, UNSPECIFIED Status: Resolved Plan: improving.. - Plan Continue antibiotics.. Speech therapist to evaluate.. Continue bronchodilators..
[2019-10-05] MEDS: Gabapentin 300 MG CAP PO SCH (13:11)
[2019-10-05] MEDS: Sodium Chloride 0.9% 1,000 ML IV SCH (13:14)
[2019-10-05] MEDS: Atorvastatin Calcium 10 MG TAB PO SCH (21:50)
[2019-10-05] MEDS: guaiFENesin/DM ER PO SCH (21:50)
[2019-10-05] MEDS: ALPRAZolam 0.25 MG TAB PO SCH (21:51)
[2019-10-06] MEDS: metroNIDAZOLE 500 MG in Premix Bag 1 BAG IVPB SCH ×3 (04:16→20:12)
[2019-10-06] MEDS: Cefepime 2 GM in Sodium Chloride 0.9% 100 ML IVPB SCH ×2 (06:19→17:35)
[2019-10-06] MEDS: Levothyroxine Sodium 125 MCG TAB PO SCH (06:19)
[2019-10-06] MEDS: HYDROcodone/Acetaminophen 10/325 mg Tablet PO PRN ×4 (06:19→22:17)
[2019-10-06] MEDS: Budesonide 0.25 MG/2 ML NEB NEB SCH ×2 (07:18→18:43)
[2019-10-06] MEDS: Gabapentin 400 MG CAP PO SCH ×2 (08:41→20:12)
[2019-10-06] MEDS: Multivitamin W/ Minerals 1 TAB PO SCH (08:42)
[2019-10-06] MEDS: Cholecalciferol (Vitamin D3) 400 UNITS TAB PO SCH (08:42)
[2019-10-06] MEDS: Saccharomyces boulardii 250 MG CAP PO SCH (08:42)
[2019-10-06] MEDS: Ascorbic Acid 500 mg Chewable Tablet PO SCH (08:42)
[2019-10-06 09:52] LABS: #Eosinphils 0.4 thou/uL (0.0-0.7); #Lymphocytes 1.1 thou/uL (1.20-3.40); #Monocytes 0.5 thou/uL (0.11-0.59); #Neutrophils 2.9 thou/uL (1.40-6.50); %Basophils 0.5 % (0.0-1.0); %Eosinophils 9.1 % (0.0-10.0); %Lymphocytes 21.6 % (21.0-51.0); %Monocytes 9.8 % (0.0-10.0); %Neutrophils 58.9 % (42.0-75.0); Hemoglobin 9.5 g/dL (12.0-16.0); Mean Corpuscular Hemoglobin 30.7 pg (27.0-31.0); Mean Corpuscular Volume 93.1 fL (78.0-98.0); Mean Platelet Volume 7.7 fL (7.4-10.4); Platelet Count 193 thou/uL (130-400); RBC Distribution Width 13.9 % (11.5-14.5); Red Blood Cell (RBC) Count 3.08 mill/uL (4.20-5.40); White Blood Cell (WBC) Count 4.9 thou/uL (4.8-10.8)
[2019-10-06 10:09] LABS: Anion Gap 13 mmol/L (10-20); BUN (Urea Nitrogen) 16 mg/dL (9.8-20.1); Calc. Creatinine Clearance 65 mL/min (70-130); Calcium 8.3 mg/dL (7.8-10.44); Carbon Dioxide 19 mmol/L (23-31); Chloride 111 mmol/L (98-107); Estimated GFR-MDRD 53; Glucose 122 mg/dL (83-110); Potassium 4.9 mmol/L (3.5-5.1); Sodium 138 mmol/L (136-145)
[2019-10-06] MEDS: Heparin 5,000 UNITS/ML VIAL SC SCH ×3 (10:12→20:11)
[2019-10-06] MEDS: guaiFENesin/DM ER PO SCH ×2 (10:49→20:12)
[2019-10-06] MEDS: FLUoxetine HCl 10 MG CAP PO SCH (10:49)
--- NOTE | 2019-10-06 12:02 | PDOC.HOSPP ---
- Subjective Encounter Date: 10/06/19 Encounter Time: 09:40 Subjective: No new complaint.. - Objective Vital Signs & Weight: Vital Signs (12 hours) Temp Pulse Resp BP Pulse Ox 10/06/19 07:21 93 L 10/06/19 07:20 80 16 93 L 10/06/19 07:18 80 16 93 L 10/06/19 03:35 98.1 F 88 18 130/62 96 10/06/19 00:53 85 18 95 Weight Weight 199 lb 15.348 oz I&O: 10/05/19 10/06/19 10/07/19 06:59 06:59 06:59 Intake Total 1989 Balance 1989 Result Diagrams: 10/06/19 09:25 10/06/19 09:25 Hospitalist ROS - Medication Medications: Active Medications Generic Name Dose Route Start Last Admin Trade Name Freq PRN Reason Stop Dose Admin Hydrocodone Bitart/Acetaminophen 1 tab 10/05/19 03:09 10/06/19 10:13 [place] 10/325 PO 1 tab Q4HR PRN Administration Pain Albuterol/Ipratropium 3 ml 10/05/19 13:00 10/06/19 07:20 Duoneb NEB 3 ml [id number] JERMAINE Administration Alprazolam 0.25 mg 10/05/19 21:00 10/05/19 21:51 Xanax PO 0.25 mg HS JERMAINE Administration Ascorbic Acid 500 mg 10/05/19 09:00 10/06/19 08:42 Vitamin C PO 500 mg DAILY JERMAINE Administration Atorvastatin Calcium 10 mg 10/05/19 21:00 10/05/19 21:50 Lipitor PO 10 mg HS JERMAINE Administration Budesonide 0.25 mg 10/05/19 06:30 10/06/19 07:18 Pulmicort Neb Solution NEB 0.25 mg BID-RT JERMAINE Administration Cholecalciferol 200 units 10/05/19 09:00 10/06/19 08:42 Vitamin D PO 200 units DAILY JERMAINE Administration Fluoxetine HCl 30 mg 10/05/19 09:00 10/06/19 10:49 Prozac PO 30 mg DAILY JERMAINE Administration Gabapentin 600 mg 10/05/19 12:00 10/05/19 13:11 Neurontin PO 600 mg 1200 JERMAINE Administration Gabapentin 1,200 mg 10/05/19 09:00 10/06/19 08:41 Neurontin PO 1,200 mg BID JERMAINE Administration Guaifenesin/Dextromethorphan 1 tab 10/05/19 21:00 10/06/19 10:49 Mucinex Dm PO 1 tab Q12HR JERMAINE Administration Heparin Sodium (Porcine) 5,000 units 10/05/19 09:00 10/06/19 10:12 Heparin SC 5,000 units TID JERMAINE Administration Metronidazole 500 mg/ Device 100 mls @ 100 mls/hr 10/05/19 05:00 10/06/19 04: 16 IVPB 100 mls 0500,1300,2100 JERMAINE Administration Cefepime HCl 2 gm/ Sodium 100 mls @ 200 mls/hr 10/05/19 06:00 10/06/19 06:19 Chloride IVPB 100 mls 0600,1800 JERMAINE Administration Sodium Chloride 1,000 mls @ 20 mls/hr 10/05/19 12:45 10/05/19 13:14 Normal Saline 0.9% IV 1,000 mls .Q24H JERMAINE Administration Iron/Minerals/Multivitamins 1 tab 10/05/19 09:00 10/06/19 08:42 Theragran M PO 1 tab DAILY JERMAINE Administration Levothyroxine Sodium 125 mcg 10/05/19 06:00 10/06/19 06:19 Synthroid PO 125 mcg 0600 JERMAINE Administration Pantoprazole Sodium 40 mg 10/05/19 09:00 10/06/19 08:42 Protonix PO 40 mg DAILY JERMAINE Administration Saccharomyces Boulardii 250 mg 10/05/19 09:00 10/06/19 08:42 Florastor PO 250 mg DAILY JERMAINE Administration Sodium Chloride 10 ml 10/05/19 09:00 10/06/19 10:16 Flush - Normal Saline IVF Not Given Q12HR JERMAINE - Exam Neck: no JVD Heart: RRR Respiratory: CTAB Gastrointestinal: soft Extremities: 2+ LE edema Psychiatric: normal affect, A&O x 3 Hosp A/P (1) PNA (pneumonia) Code(s): J18.9 - PNEUMONIA, UNSPECIFIED ORGANISM Status: Acute Qualifiers: Pneumonia type: aspiration pneumonia (2) COPD (chronic obstructive pulmonary disease) Status: Chronic Qualifiers: COPD type: chronic bronchitis (3) Hypertension Code(s): I10 - ESSENTIAL (PRIMARY) HYPERTENSION Status: Chronic Qualifiers: (4) Acute kidney injury Code(s): N17.9 - ACUTE KIDNEY FAILURE, UNSPECIFIED Status: Resolved Plan: Improving.. - Plan Continue antibiotics.. f/u with Speech therapist .. Continue bronchodilators..
[2019-10-06] MEDS: Gabapentin 300 MG CAP PO SCH (12:57)
[2019-10-06] MEDS: Sodium Chloride 0.9% 1,000 ML IV SCH (13:11)
[2019-10-06] MEDS ORDERED: Loperamide HCl 2 MG CAP PO PRN (18:30)
[2019-10-06] MEDS: Atorvastatin Calcium 10 MG TAB PO SCH (20:12)
[2019-10-06] MEDS: Benzonatate 100 MG CAP PO PRN (20:12)
[2019-10-06] MEDS: ALPRAZolam 0.25 MG TAB PO SCH (22:19)
[2019-10-06] MEDS ORDERED: Artificial Tear Sol 15 ML BOT EA EYE PRN (22:50)
[2019-10-07] MEDS: metroNIDAZOLE 500 MG in Premix Bag 1 BAG IVPB SCH ×3 (04:12→21:30)
[2019-10-07] MEDS: Cefepime 2 GM in Sodium Chloride 0.9% 100 ML IVPB SCH ×2 (06:03→17:36)
[2019-10-07] MEDS: Levothyroxine Sodium 125 MCG TAB PO SCH (06:03)
[2019-10-07] MEDS: Budesonide 0.25 MG/2 ML NEB NEB SCH ×2 (07:29→20:00)
[2019-10-07] MEDS: Nystatin Powder 15 GM BOT TOP PRN ×2 (08:59→15:19)
[2019-10-07] MEDS: Ascorbic Acid 500 mg Chewable Tablet PO SCH (09:01)
[2019-10-07] MEDS: Cholecalciferol (Vitamin D3) 400 UNITS TAB PO SCH (09:02)
[2019-10-07] MEDS: Multivitamin W/ Minerals 1 TAB PO SCH (09:04)
[2019-10-07] MEDS: Benzonatate 100 MG CAP PO PRN ×2 (09:04→17:37)
[2019-10-07] MEDS: Saccharomyces boulardii 250 MG CAP PO SCH (09:04)
[2019-10-07] MEDS: FLUoxetine HCl 10 MG CAP PO SCH (09:05)
[2019-10-07] MEDS: Gabapentin 400 MG CAP PO SCH ×2 (09:06→21:30)
[2019-10-07] MEDS: guaiFENesin/DM ER PO SCH ×2 (09:07→21:30)
[2019-10-07] MEDS: Heparin 5,000 UNITS/ML VIAL SC SCH ×3 (09:07→21:30)
[2019-10-07] MEDS: HYDROcodone/Acetaminophen 10/325 mg Tablet PO PRN ×3 (09:08→21:59)
--- NOTE | 2019-10-07 09:59 | PDOC.HOSPP ---
- Subjective Encounter Date: 10/07/19 Encounter Time: 09:25 Subjective: No new complaint. - Objective Vital Signs & Weight: Vital Signs (12 hours) Temp Pulse Resp BP Pulse Ox 10/07/19 08:01 98.1 F 104 H 20 191/74 H 92 L 10/07/19 07:29 90 18 88 L 10/07/19 03:17 98.3 F 88 18 151/73 H 91 L 10/06/19 23:52 98.3 F 89 18 124/71 91 L Weight Weight 199 lb 15.348 oz I&O: 10/06/19 10/07/19 10/08/19 06:59 06:59 06:59 Intake Total 1989 1730 Balance 1989 1730 Result Diagrams: 10/06/19 09:25 10/06/19 09:25 Hospitalist ROS - Medication Medications: Active Medications Generic Name Dose Route Start Last Admin Trade Name Freq PRN Reason Stop Dose Admin Hydrocodone Bitart/Acetaminophen 1 tab 10/05/19 03:09 10/07/19 09:08 [place] 10/325 PO 1 tab Q4HR PRN Administration Pain Albuterol/Ipratropium 3 ml 10/05/19 13:00 10/07/19 07:32 Duoneb NEB 3 ml [id number] JERMAINE Administration Alprazolam 0.25 mg 10/05/19 21:00 10/06/19 22:19 Xanax PO 0.25 mg HS JERMAINE Administration Ascorbic Acid 500 mg 10/05/19 09:00 10/07/19 09:01 Vitamin C PO 500 mg DAILY JERMAINE Administration Atorvastatin Calcium 10 mg 10/05/19 21:00 10/06/19 20:12 Lipitor PO 10 mg HS JERMAINE Administration Benzonatate 100 mg 10/05/19 04:55 10/07/19 09:04 Tessalon PO 100 mg TIDPRN PRN Administration Cough Budesonide 0.25 mg 10/05/19 06:30 10/07/19 07:29 Pulmicort Neb Solution NEB 0.25 mg BID-RT JERMAINE Administration Cholecalciferol 200 units 10/05/19 09:00 10/07/19 09:02 Vitamin D PO 200 units DAILY JERMAINE Administration Fluoxetine HCl 30 mg 10/05/19 09:00 10/07/19 09:05 Prozac PO 30 mg DAILY JERMAINE Administration Gabapentin 600 mg 10/05/19 12:00 10/06/19 12:57 Neurontin PO 600 mg 1200 JERMAINE Administration Gabapentin 1,200 mg 10/05/19 09:00 10/07/19 09:06 Neurontin PO 1,200 mg BID JERMAINE Administration Guaifenesin/Dextromethorphan 1 tab 10/05/19 21:00 10/07/19 09:07 Mucinex Dm PO 1 tab Q12HR JERMAINE Administration Heparin Sodium (Porcine) 5,000 units 10/05/19 09:00 10/07/19 09:07 Heparin SC 5,000 units TID JERMAINE Administration Metronidazole 500 mg/ Device 100 mls @ 100 mls/hr 10/05/19 05:00 10/07/19 04: 12 IVPB 100 mls 0500,1300,2100 JERMAINE Administration Cefepime HCl 2 gm/ Sodium 100 mls @ 200 mls/hr 10/05/19 06:00 10/07/19 06:03 Chloride IVPB 100 mls 0600,1800 JERMAINE Administration Sodium Chloride 1,000 mls @ 20 mls/hr 10/05/19 12:45 10/06/19 13:11 Normal Saline 0.9% IV Not Given .Q24H JERMAINE Iron/Minerals/Multivitamins 1 tab 10/05/19 09:00 10/07/19 09:04 Theragran M PO 1 tab DAILY JERMAINE Administration Levothyroxine Sodium 125 mcg 10/05/19 06:00 10/07/19 06:03 Synthroid PO 125 mcg 0600 JERMAINE Administration Nystatin 0 gm 10/06/19 18:27 10/07/19 08:59 Mycostatin Powder TOP 1 applic TIDPRN PRN Administration REDNESS/IRRITATION Pantoprazole Sodium 40 mg 10/05/19 09:00 10/07/19 09:04 Protonix PO 40 mg DAILY JERMAINE Administration Saccharomyces Boulardii 250 mg 10/05/19 09:00 10/07/19 09:04 Florastor PO 250 mg DAILY JERMAINE Administration Sodium Chloride 10 ml 10/05/19 09:00 10/07/19 09:07 Flush - Normal Saline IVF 10 ml Q12HR JERMAINE Administration - Exam Neck: no JVD Heart: RRR Respiratory: rhonchi Gastrointestinal: soft Extremities: 2+ LE edema Neurological: no weakness Psychiatric: normal affect Hosp A/P (1) PNA (pneumonia) Code(s): J18.9 - PNEUMONIA, UNSPECIFIED ORGANISM Status: Acute Qualifiers: Pneumonia type: aspiration pneumonia (2) COPD (chronic obstructive pulmonary disease) Status: Chronic Qualifiers: COPD type: chronic bronchitis (3) Hypertension Code(s): I10 - ESSENTIAL (PRIMARY) HYPERTENSION Status: Chronic Qualifiers: (4) Acute kidney injury Code(s): N17.9 - ACUTE KIDNEY FAILURE, UNSPECIFIED Status: Resolved - Plan Continue antibiotics.. f/u with Speech therapist .. Continue bronchodilators.. Home soon.
[2019-10-07] MEDS: Gabapentin 300 MG CAP PO SCH (12:09)
[2019-10-07] MEDS: Loperamide HCl 2 MG CAP PO PRN (12:09)
[2019-10-07] MEDS: Sodium Chloride 0.9% 1,000 ML IV SCH ×2 (12:50→17:44)
[2019-10-07] MEDS: Atorvastatin Calcium 10 MG TAB PO SCH (21:30)
[2019-10-07] MEDS: ALPRAZolam 0.25 MG TAB PO SCH (21:59)
[2019-10-07] MEDS: Melatonin 3 MG TAB PO PRN (23:49)
[2019-10-08] MEDS: metroNIDAZOLE 500 MG in Premix Bag 1 BAG IVPB SCH ×3 (04:10→20:27)
[2019-10-08] MEDS: Cefepime 2 GM in Sodium Chloride 0.9% 100 ML IVPB SCH ×2 (05:18→18:01)
[2019-10-08] MEDS: Levothyroxine Sodium 125 MCG TAB PO SCH (05:18)
[2019-10-08] MEDS: Budesonide 0.25 MG/2 ML NEB NEB SCH ×2 (07:10→18:48)
[2019-10-08] MEDS: FLUoxetine HCl 10 MG CAP PO SCH (08:11)
[2019-10-08] MEDS: Cholecalciferol (Vitamin D3) 400 UNITS TAB PO SCH (08:12)
[2019-10-08] MEDS: Multivitamin W/ Minerals 1 TAB PO SCH (08:13)
[2019-10-08] MEDS: guaiFENesin/DM ER PO SCH ×2 (08:13→20:26)
[2019-10-08] MEDS: Gabapentin 400 MG CAP PO SCH ×2 (08:14→20:27)
[2019-10-08] MEDS: Ascorbic Acid 500 mg Chewable Tablet PO SCH (08:14)
[2019-10-08] MEDS: Heparin 5,000 UNITS/ML VIAL SC SCH ×3 (08:15→20:26)
[2019-10-08] MEDS: HYDROcodone/Acetaminophen 10/325 mg Tablet PO PRN ×3 (08:17→22:15)
[2019-10-08] MEDS: Saccharomyces boulardii 250 MG CAP PO SCH (08:19)
[2019-10-08] MEDS: Gabapentin 300 MG CAP PO SCH (11:49)
[2019-10-08] MEDS: Nystatin Powder 15 GM BOT TOP PRN (14:35)
--- NOTE | 2019-10-08 14:49 | PDOC.HOSPP ---
- Subjective Encounter Date: 10/08/19 Encounter Time: 14:44 Subjective: much better, minimal cough, no fever - Objective Vital Signs & Weight: Vital Signs (12 hours) Temp Pulse Resp BP Pulse Ox 10/08/19 12:05 65 20 91 L 10/08/19 10:14 98.0 F 99 20 151/80 H 96 10/08/19 08:00 97.0 F L 104 H 20 193/82 H 97 10/08/19 07:10 90 L 10/08/19 07:09 87 20 90 L 10/08/19 03:40 97.9 F 82 16 162/83 H 92 L Weight Weight 199 lb 15.348 oz I&O: 10/07/19 10/08/19 10/09/19 06:59 06:59 06:59 Intake Total 1732039 Balance 1729 2039 Result Diagrams: 10/06/19 09:25 10/06/19 09:25 Hospitalist ROS - Medication Medications: Active Medications Generic Name Dose Route Start Last Admin Trade Name Freq PRN Reason Stop Dose Admin Hydrocodone Bitart/Acetaminophen 1 tab 10/05/19 03:09 10/08/19 08:17 [place] 10/325 PO 1 tab Q4HR PRN Administration Pain Albuterol/Ipratropium 3 ml 10/05/19 13:00 10/08/19 12:05 Duoneb NEB 3 ml [id number] JERMAINE Administration Alprazolam 0.25 mg 10/05/19 21:00 10/07/19 21:59 Xanax PO 0.25 mg HS JERMAINE Administration Ascorbic Acid 500 mg 10/05/19 09:00 10/08/19 08:14 Vitamin C PO 500 mg DAILY JERMAINE Administration Atorvastatin Calcium 10 mg 10/05/19 21:00 10/07/19 21:30 Lipitor PO 10 mg HS JERMAINE Administration Benzonatate 100 mg 10/05/19 04:55 10/07/19 17:37 Tessalon PO 100 mg TIDPRN PRN Administration Cough Budesonide 0.25 mg 10/05/19 06:30 10/08/19 07:10 Pulmicort Neb Solution NEB 0.25 mg BID-RT JERMAINE Administration Cholecalciferol 200 units 10/05/19 09:00 10/08/19 08:12 Vitamin D PO 200 units DAILY JERMAINE Administration Fluoxetine HCl 30 mg 10/05/19 09:00 10/08/19 08:11 Prozac PO 30 mg DAILY JERMAINE Administration Gabapentin 600 mg 10/05/19 12:00 10/08/19 11:49 Neurontin PO 600 mg 1200 JERMANIE Administration Gabapentin 1,200 mg 10/05/19 09:00 10/08/19 08:14 Neurontin PO 1,200 mg BID JERMAINE Administration Guaifenesin/Dextromethorphan 1 tab 10/05/19 21:00 10/08/19 08:13 Mucinex Dm PO 1 tab Q12HR JERMAINE Administration Heparin Sodium (Porcine) 5,000 units 10/05/19 09:00 10/08/19 14:35 Heparin SC 5,000 units TID JERMAINE Administration Metronidazole 500 mg/ Device 100 mls @ 100 mls/hr 10/05/19 05:00 10/08/19 11: 50 IVPB 100 mls 0500,1300,2100 JERMAINE Administration Cefepime HCl 2 gm/ Sodium 100 mls @ 200 mls/hr 10/05/19 06:00 10/08/19 05:18 Chloride IVPB 100 mls 0600,1800 JERMAINE Administration Sodium Chloride 1,000 mls @ 20 mls/hr 10/05/19 12:45 10/07/19 17:44 Normal Saline 0.9% IV 1,000 mls .Q24H JERMAINE Administration Iron/Minerals/Multivitamins 1 tab 10/05/19 09:00 10/08/19 08:13 Theragran M PO 1 tab DAILY JERMAINE Administration Levothyroxine Sodium 125 mcg 10/05/19 06:00 10/08/19 05:18 Synthroid PO 125 mcg 0600 JERMAINE Administration Loperamide HCl 2 mg 10/06/19 18:30 10/07/19 12:09 Imodium PO 2 mg PRN PRN Administration Diarrhea/Loose Stools Melatonin 3 mg 10/07/19 23:02 10/07/19 23:49 Melatonin PO 3 mg HS PRN Administration Insomnia Nystatin 0 gm 10/06/19 18:27 10/08/19 14:35 Mycostatin Powder TOP 1 applic TIDPRN PRN Administration REDNESS/IRRITATION Pantoprazole Sodium 40 mg 10/05/19 09:00 10/08/19 08:15 Protonix PO 40 mg DAILY JERMAINE Administration Saccharomyces Boulardii 250 mg 10/05/19 09:00 10/08/19 08:19 Florastor PO 250 mg DAILY JERMAINE Administration Sodium Chloride 10 ml 10/05/19 09:00 10/08/19 08:19 Flush - Normal Saline IVF Not Given Q12HR JERMAINE - Exam General Appearance: awake alert Neck: no JVD Heart: RRR, no murmur Respiratory - other findings: mild R post rales Gastrointestinal: soft, non-tender, normal bowel sounds Extremities: no edema Hosp A/P (1) Acute and chronic respiratory failure Code(s): J96.20 - ACUTE AND CHR RESP FAILURE, UNSP W HYPOXIA OR HYPERCAPNIA Status: Acute Qualifiers: Respiratory failure complication: hypoxia Qualified Code(s): J96.21 - Acute and chronic respiratory failure with hypoxia (2) Aspiration pneumonia Code(s): J69.0 - PNEUMONITIS DUE TO INHALATION OF FOOD AND VOMIT Status: Acute Qualifiers: Laterality: bilateral (3) COPD (chronic obstructive pulmonary disease) Status: Chronic Qualifiers: COPD type: chronic bronchitis (4) Chronic diastolic heart failure Code(s): I50.32 - CHRONIC DIASTOLIC (CONGESTIVE) HEART FAILURE Status: Chronic (5) Sepsis Code(s): A41.9 - SEPSIS, UNSPECIFIED ORGANISM Status: Suspected Qualifiers: Sepsis type: sepsis due to unspecified organism Sepsis acute organ dysfunction status: with acute organ dysfunction Severe sepsis acute organ dysfunction type: acute renal failure Severe sepsis shock status: without septic shock - Plan cont antibx, nebs, etc expect DC in am
[2019-10-08] MEDS: Benzonatate 100 MG CAP PO PRN (15:56)
[2019-10-08] MEDS: Loperamide HCl 2 MG CAP PO PRN (15:56)
[2019-10-08] MEDS: Atorvastatin Calcium 10 MG TAB PO SCH (20:26)
[2019-10-08] MEDS: ALPRAZolam 0.25 MG TAB PO SCH (21:40)
[2019-10-08] MEDS: Melatonin 3 MG TAB PO PRN (23:39)
[2019-10-09] MEDS ORDERED: Vancomycin HCl 1 GM in Premix Bag 1 BAG IVPB SCH (00:30)
[2019-10-09] MEDS ORDERED: Vancomycin 1.5 GRAM/300 ML BAG 1.5 GM in Premix Bag 1 BAG IVPB SCH (01:00)
[2019-10-09] MEDS: metroNIDAZOLE 500 MG in Premix Bag 1 BAG IVPB SCH ×2 (04:31→13:11)
[2019-10-09] MEDS: HYDROcodone/Acetaminophen 10/325 mg Tablet PO PRN ×2 (06:03→14:16)
[2019-10-09] MEDS: Levothyroxine Sodium 125 MCG TAB PO SCH (06:04)
[2019-10-09] MEDS: Cefepime 2 GM in Sodium Chloride 0.9% 100 ML IVPB SCH (06:04)
[2019-10-09] MEDS: Budesonide 0.25 MG/2 ML NEB NEB SCH (06:56)
[2019-10-09] MEDS: Nystatin Powder 15 GM BOT TOP PRN (09:34)
[2019-10-09] MEDS: Heparin 5,000 UNITS/ML VIAL SC SCH (09:35)
[2019-10-09] MEDS: guaiFENesin/DM ER PO SCH (09:35)
[2019-10-09] MEDS: Gabapentin 400 MG CAP PO SCH (09:35)
[2019-10-09] MEDS: Ascorbic Acid 500 mg Chewable Tablet PO SCH (09:35)
[2019-10-09] MEDS: Cholecalciferol (Vitamin D3) 400 UNITS TAB PO SCH (09:36)
[2019-10-09] MEDS: Multivitamin W/ Minerals 1 TAB PO SCH (09:36)
[2019-10-09] MEDS: FLUoxetine HCl 10 MG CAP PO SCH (09:36)
[2019-10-09] MEDS: Saccharomyces boulardii 250 MG CAP PO SCH (09:36)
[2019-10-09 11:18] VITALS: BP 164/90; TEMP 97.9
[2019-10-09] MEDS: Gabapentin 300 MG CAP PO SCH (13:11)
[2019-10-09] MEDS: Benzonatate 100 MG CAP PO PRN (14:17)
--- NOTE | 2019-10-11 05:38 | PQF ---
[employer] Medical Office Technician Crystal Reports Winform ViewerKUCJOSÉ HANNA EM PRICE [id number] [id number] CLINICAL DOCUMENTATION CLARIFICATION FORM: POST DISCHARGE Addendum to original discharge summary date: ____ Late entry note date: __ DATE: 10/11/2019 ATTN: EM PRICE Please exercise your independent, professional judgment in responding to the clarification form. Clinical indicators are provided on the bottom of this form for your review Diagnosis: ____SEVERE SEPSIS Present on Admission (POA): [ ] Yes [ x ] No [ ] Unable to determine Coding guidelines require hospitals to identify whether a diagnosis was present on admission (POA) or not. To accurately assign the appropriate POA indicator, this information must be clearly documented within the medical record. CLINICAL INDICATORS - SIGNS / SYMPTOMS / LABS Severe Sepsis due to unspecified organism with acute organ dysfunction - Documented in Hospital PNs on 10/08 by Yovani Mixon MD Acute on Chronic Respiratory failure - Documented in Hospital PNs on 10/08 by Yovani Mixon MD Pulse 102 on 10/06 , 110 on 10/07- Documented in Vital and Signs Respiration rate 22 on 10/05 - Documented in Vital and Signs RISK FACTORS: NIKI - Documentred in H&P on 10/05 by Nora Kaur Aspiration Pneumonia - Documented in Hospital PNs on 10/05 by EM PRICE TREATMENT: Continue antibiotics - Documented in Hospital PNs on 10/05 by EM PRICE Vancomycin IVPB on 10/05 - Medication report [employer] Medical Office Technician Crystal Reports Winform Viewer(This form is maintained as a part of the permanent medical record) 2014 [employer]. All Rights Reserved [email or web address] [not provided] MTDD
--- NOTE | 2019-10-11 12:00 | DIS ---
DATE OF ADMISSION: 10/05/2019 DATE OF DISCHARGE: 10/09/2019 PRIMARY CARE PROVIDER: Deepak Ricardo MD. DISPOSITION: Discharged home. FINAL DIAGNOSES: Aspiration, chronic respiratory failure with hypoxia and hypercapnia, chronic obstructive pulmonary disease exacerbation, chronic kidney disease stage 3. DISCHARGE MEDICATIONS: New; 1. Doxycycline 100 mg p.o. b.i.d. x10 days. 2. Flagyl 500 mg p.o. t.i.d. x10 days. Routine medicines; 1. Lipitor 10 mg a day. 2. Amlodipine 10 mg a day. 3. Alprazolam 0.25 mg at bedtime. 4. Budesonide two inhalations twice a day. 5. Lasix 20 mg a day. 6. Prozac 30 mg a day. 7. Synthroid 125 mcg a day. 8. Hydrocodone 10/325 one every 4 hours p.r.n. 9. Gabapentin 600 mg p.o. as directed. 10. Metoprolol 25 mg a day. 11. Florastor 250 mg a day. 12. KCl 10 mEq a day. 13. Protonix 40 mg a day. 14. Oxybutynin 10 mg a day. 15. Valsartan 325 mg a day. ALLERGIES: LISTED TO; 1. AMOXICILLIN. 2. CIPRO. 3. CLAVULANIC ACID. 4. CLINDAMYCIN. 5. ERYTHROMYCIN. 6. METOLAZONE. 7. NALBUPHINE. 8. OXYCODONE. 9. TRAMADOL. 10. ZOLPIDEM. 11. FENTANYL. CODE STATUS: DNAR. DIET: Heart healthy. PENDING AT TIME OF DISCHARGE: Nothing. HOSPITAL COURSE: The patient was admitted through [facility] to the [facility]ist [facility] with possible aspiration pneumonia. Her initial chest x-ray was read by the hospitalist as possible pneumonia. The radiologist said that pneumonia could not be entirely excluded, but the changes appeared chronic. The comprehensive metabolic profile showed a sodium of 138, potassium 4.9, BUN 23, creatinine 1.55, blood sugar 118. With IV fluids, the BUN came down to 16, creatinine to 1.01. The patient's white count was normal at 7.2, 5.2, and 4.9 three days in a row. Hemoglobin was stable at 10 plus or minus. Platelet count was normal. Blood cultures were negative. Influenza was negative. C difficile screen was negative. The patient did have a sputum culture that grew MRSA. Urine culture was negative. The patient's chest is currently clear, I have seen her two days in a row. She is afebrile. Vital signs are stable. She is being discharged. The family is upset, because of the statement from nursing staff about the MRSA in her sputum. I assured them that this was not a worrisome thing as she is afebrile. She is not toxic. She has not had a high white count. To be able to reassure them better, I discussed the situation with Infectious Disease, who considered this to be a very common nasopharyngeal contaminant of a sputum culture obtained from secretions that came through the oropharynx. I could tell they were not totally reassured, however, the patient is happy to be going home. I did make sure that the doxycycline as she is discharged on did cover the MRSA in the sputum as I said the patient is afebrile, nontoxic with clear lung chance at the time of discharge. She has been asked to follow up with her PCP, Dr. Deepak Ricardo in 3 days. Job ID: [id number]
== END 2019-10-09 17:10 | disposition home or self-care (01) | DRG 177 ==
LOC: ERS 20:13 → SURG B 10-05 01:48
PROVIDERS: ADMIT Internal Medicine; ATTEND Internal Medicine
DX: J69.0 Pneumonitis due to inhalation of food and vomit (principal); A41.9 Sepsis, unspecified organism; J96.21 Acute and chronic respiratory failure with hypoxia; R65.20 Severe sepsis without septic shock; N17.9 Acute kidney failure, unspecified; I50.32 Chronic diastolic (congestive) heart failure; E03.9 Hypothyroidism, unspecified; J44.9 Chronic obstructive pulmonary disease, unspecified; I11.0 Hypertensive heart disease with heart failure; E78.5 Hyperlipidemia, unspecified; D64.9 Anemia, unspecified; F32.9 Major depressive disorder, single episode, unspecified; Z66 Do not resuscitate; Z90.49 Acquired absence of other specified parts of digestive tract; Z90.710 Acquired absence of both cervix and uterus; I48.91 Unspecified atrial fibrillation; K21.9 Gastro-esophageal reflux disease without esophagitis
CPT/HCPCS: 36415; 51701; 71045; 80048; 80053; 81003; 81015; 82607; 82746; 83605; 85025; 85027; 87040; 87070; 87077; 87086; 87186; 87205; 87324; 87449; 87804; 94640; 96361; 96365; A4353; J0692; J1644; J1956; J3370; J3490; J7050; J7620; J7626

== ENCOUNTER 2020-02-03 10:17 | Inpatient (IN) | payer MEDICARE, OTHER ==
[~2020-02-03 10:17] MED LIST changes: -ISOVUE-370 76%-LOCM 1 ML ONE; +Iopamidol-370 76% 500 ML 1 ML ONE
[2020-02-03 10:56] LABS: #Basophils 0.1 thou/uL (0.0-0.2); #Eosinphils 0.3 thou/uL (0.0-0.7); #Lymphocytes 2.5 thou/uL (1.20-3.40); #Monocytes 0.9 thou/uL (0.11-0.59); #Neutrophils 13.7 thou/uL (1.40-6.50); %Basophils 0.7 % (0.0-1.0); %Eosinophils 1.7 % (0.0-10.0); %Lymphocytes 14.3 % (21.0-51.0); %Monocytes 5.1 % (0.0-10.0); %Neutrophils 78.3 % (42.0-75.0); Hemoglobin 14.7 g/dL (12.0-16.0); Mean Corpuscular Hemoglobin 28.1 pg (27.0-31.0); Mean Corpuscular Volume 87.7 fL (78.0-98.0); Mean Platelet Volume 8.1 fL (7.4-10.4); Platelet Count 276 thou/uL (130-400); RBC Distribution Width 13.2 % (11.5-14.5); Red Blood Cell (RBC) Count 5.25 mill/uL (4.20-5.40); White Blood Cell (WBC) Count 17.5 thou/uL (4.8-10.8)
[2020-02-03 11:22] LABS: ALT (SGPT) 27 U/L (8-55); AST (SGOT) 29 U/L (5-34); Albumin 4.7 g/dL (3.4-4.8); Alkaline Phosphatase 140 U/L (40-110); Anion Gap 18 mmol/L (10-20); BUN (Urea Nitrogen) 26 mg/dL (9.8-20.1); Bilirubin, Total 0.7 mg/dL (0.2-1.2); Calc. Creatinine Clearance 0 mL/min (70-130); Calcium 10.1 mg/dL (7.8-10.44); Carbon Dioxide 22 mmol/L (23-31); Chloride 98 mmol/L (98-107); Estimated GFR-MDRD 35; Globulin 3.9 g/dL (2.4-3.5); Glucose 109 mg/dL (83-110); Potassium 4.3 mmol/L (3.5-5.1); Protein, Total 8.6 g/dL (6.0-8.3); Sodium 134 mmol/L (136-145)
--- NOTE | 2020-02-03 11:27 | RAD ---
CHEST 1 VIEW: HISTORY: Dyspnea. COMPARISON: 10/04/2019 exam. FINDINGS: Heart size is enlarged. Chronic lung changes are seen. There is some minimal linear change in the b ases which is compatible with atelectasis versus scarring. IMPRESSION: Cardiomegaly with more chronic-appearing lung change. No definite confluent infiltrates. There are some interstitial changes of the bases which could be on the basis of scar versus atelectasis. POS: DAPHNE
[2020-02-03 11:49] LABS: Bacteria/HPF None Seen HPF (None Seen); Bilirubin Negative (Negative); Blood, Urine Negative (Negative); Clarity Clear (Clear); Glucose, Urine (Dipstick) Normal (Negative); Leukocyte Negative Leu/uL (Negative); Nitrite Negative (Negative); Protein, Urine (Dipstick) 30 mg/dL (Neg-Trace); RBC/HPF 0-3 HPF (0-3); Squamous Epithelial None Seen HPF (0-3); Urobilinogen Normal mg/dL (Less than 2); WBC/HPF 0-3 HPF (0-3)
[2020-02-03] MEDS ORDERED: cefTRIAXone\\ROCEPHIN 2 GM VIAL ONE (12:25)
--- NOTE | 2020-02-03 13:40 | CT ---
CT Brain WO Con: 02/03/2020 10:45 AM CLINICAL HISTORY: Altered mental status. IMAGING TECHNIQUE: Multiple CT images were obtained of the brain without IV contrast. COMPARISON: July 05, 2019 FINDINGS: Brain: Mild generalized cerebral atrophy is stable appearing. Mild chronic small vessel matter ische federico changes stable. No acute infarct or hemorrhage is demonstrated. No midline shift is noted. Ventricles: Normal. No hydrocephalus. Skull: Intact. Visualized Paranasal sinuses: Chronic sinusitis of the left maxillary and left sphenoid air cell are stable appearing. There is improvement in the ethmoid mucosal disease. Mastoid air cells:Clear. Extracranial soft tissues:Normal. IMPRESSION: No acute intracranial abnormality. Chronic sinusitis as above.
--- NOTE | 2020-02-03 13:44 | CT ---
CTA Angio Chest W WO Con 02/03/2020 12:21 PM Indication: Altered mental status and dyspnea Technique: Multiple CTA images were obtained of the thorax with IV contrast. 3-D rendering: MIP jackie nstructed images were created and reviewed. Comparison: CT of the thorax without contrast dated July 05, 2019 Findings: Pulmonary arteries: No central or segmental pulmonary embolus is evident. There is enlargement of th e pulmonary arteries likely reflecting sequela of underlying secondary pulmonary artery hypertension Heart and Aorta: There is moderate cardiomegaly. There is mild ectasia of the ascending aorta. There is mild aneurysmal dilatation the aortic arch. Mediastinum:There are persistent enlarged mediastinal lymph nodes. There is a precarinal lymph node m easuring up to 1.8 cm. Lungs:There is aspiration pneumonitis involving both lower lobes and with patchy opacities within the lingula and right middle lobe also suspicious for aspiration. There is debris within bronchi of both lower lobes as well as within the mainstem bronchus. There is fluid distention of the esophagus. The stomach is decompressed. Pleural space: Clear. Upper Abdomen: Cholecystectomy. Adrenal glands are normal appearing. Osseous Structures: No acute osseous abnormality. There is scattered degenerative and osteoarthritic change present. There is prominent osteoarthrosis of the left glenohumeral joint. There is diffuse osteopenia. Soft tissues:No abnormality. Other findings:None. Impression: 1. No central or segmental pulmonary embolus. 2. Findings of aspiration pneumonitis. 3. Persistent enlarged mediastinal lymphadenopathy.
[2020-02-03 13:51] LABS: Actual Bicarbonate (HCO3a) 22.6 mEq/L (22-28); Analyzer IN Cardio ER; CO2 Tension 34.4 mmHg (35.0-45.0); Calcium, Ionized 1.14 mmol/L (1.12-1.30); Carboxyhemoglobin (COHb) 0.3 gm% (0.0-3.0); Hemoglobin (Hb) 13.3 g/dL (12.0-16.0); Potassium - ABG Lab 3.55 mmol/L (3.70-5.30); pH, Arterial 7.44 (7.35-7.45)
[2020-02-03 13:53] LABS: O2 Tension (PaO2) 53.9 mmHg (> 70.0)
[2020-02-03] MEDS ORDERED: Piperacillin/Tazobactam 4.5 GM VIAL ONE (15:41)
[2020-02-03] MEDS ORDERED: Acetaminophen 650 MG Suppository ONE (16:07)
[2020-02-03] MEDS ORDERED: Acetaminophen 325 MG Suppository ONE (16:07)
[2020-02-03] MEDS ORDERED: Sodium Chloride 0.9% 1,000 ML IV SCH ×4 (19:22→20:45)
[2020-02-03] MEDS ORDERED: Ondansetron PF 4 MG/2 ML Vial IVP PRN (19:22)
[2020-02-03] MEDS ORDERED: Ondansetron ODT 4 MG TAB SL PRN (19:22)
[2020-02-03] MEDS ORDERED: Senokot S 8.6-50 MG TAB PO PRN (19:38)
[2020-02-03] MEDS ORDERED: hydrALAZINE 20 MG/ML VIAL SLOW IVP PRN (19:38)
[2020-02-03] MEDS ORDERED: Dextrose 50% Abboject 50 ML SYRINGE SLOW IVP PRN (19:38)
[2020-02-03] MEDS ORDERED: Potassium Chloride 10 MEQ TAB PO PRN (19:38)
[2020-02-03] MEDS ORDERED: Vancomycin HCl 1 GM in Sodium Chloride 0.9% 250 ML 250 ML IVPB STA (19:38)
[2020-02-03] MEDS ORDERED: Loperamide HCl 2 MG CAP PO PRN (19:38)
[2020-02-03] MEDS ORDERED: Dextrose 5% in Water 1,000 ML IV PRN (19:38)
[2020-02-03] MEDS ORDERED: Ondansetron ODT 4 MG TAB PO PRN (19:38)
[2020-02-03 19:41] VITALS: BMI 31.8
[2020-02-03] MEDS ORDERED: Mometasone 200 MCG/Formoterol 5 MCG 120 PUFF INHALER INH SCH (20:00)
[2020-02-03] MEDS ORDERED: Cefepime 1 GM in Sodium Chloride 0.9% 100 ML IVPB SCH (20:00)
--- NOTE | 2020-02-03 20:00 | HP ---
HISTORY OF PRESENT ILLNESS: The history and physical is based on the ED report because the patient is in significant respiratory distress during the encounter. Attempted to also contact the family; however, the is not able to provide meaningful report of the history of present illness. Ms. Santizo is a 79-year-old female with history of Ashtma/COPD (3 L nasal cannula at home), chronic respiratory failure with hypoxia and hypercapnia, chronic dysphagia, multiple recent admissions for aspiration pneumonitis/ pneumonia,, CKD 3, who presented for drowsiness and fever. The patient lives with her and was found drowsy earlier today. The called the EMS and the patient was found to be in respiratory distress with a temperature of 101 Fahrenheit. In the ED, the patient was reported to have a fever of 100.5, but was reportedly alert and oriented x3. She endorsed chills, cough, sputum production, and overall similar symptoms to previous episodes of aspiration that she had in the recent past. On encounter, the patient is lying in bed, in moderate distress due to chills and respiratory distress. tachypneic in between 30s to 40s. Could not provide review of systems because the patient can't complete a word due to tachypnea. ED COURSE: In the ED, the patient was found to be febrile at 100.5, tachypneic, with a white count of 17.5, and neutrophilia. Chest x-ray was reportedly unremarkable, but CT of the chest showed b/l patchy opacities including within the lingula and right middle lobe, debris within the bronchi of both lower lobes as well as within the mainstem bronchus and fluid distention in the esophagus. The patient was started on antibiotics and admitted to the [facility] for further treatment. REVIEW OF SYSTEMS: Review of systems could not be completed because the patient was in moderate distress and could not complete a word; however, reported to the ED physician of fever, chills, cough and sputum production that are acute. PAST MEDICAL HISTORY: Chronic respiratory failure with hypoxia and hypercapnia , on 3 L oxygen at home. Atrial fibrillation, hypothyroidism, CKD 3, COPD/asthma, dysphagia, anemia, hyperlipidemia. PAST SURGICAL HISTORY: Cholecystectomy, hysterectomy, back surgery. SOCIAL HISTORY: Denies smoking, alcohol use, or recreational drug use. FAMILY HISTORY: Father from coronary artery disease. HOME MEDICATIONS: Per EMR. ALLERGIES: AMOXICILLIN, CIPROFLOXACIN, CLAVULANIC ACID, CLINDAMYCIN, ERYTHROMYCIN, METOLAZONE, OXYCODONE, SULFA, TRAMADOL, TRIMETHOPRIM, AND ZOLPIDEM. PHYSICAL EXAMINATION: VITAL SIGNS: In the ED were blood pressure 139/80, pulse 87, respiratory rate 36, temperature 103 rectal, pain zero, oxygen saturation 92% on 3 L oxygen. GENERAL: Lying in bed in moderate distress due to dyspnea. HEENT: Normocephalic, atraumatic. PERRL. NECK: No JVD. LUNGS: tachypnic 30-40s, using accessory muscles, Coarse bilateral breath sounds with bilateral rhonchi. CARDIAC: Regular rate and rhythm. No gallops or murmurs. ABDOMEN: Nondistended, nontender, normal bowel sounds. EXTREMITIES: Bilateral lower extremity pitting edema equal up to knee level. NEUROLOGIC: Could not be assessed because of the patient's distress. LABORATORY DATA AND DIAGNOSTIC STUDIES: Labs and imaging were reviewed. The patient has leukocytosis with neutrophilia. ABG was consistent with chronic hypoxic respiratory alkalosis with metabolic compensation. Urinalysis was negative for infection or sedimentation. The patient's renal function appears to be at baseline with a creatinine of 1.43. CT scan of the chest as previously mentioned in the ED course. ASSESSMENT AND PLAN: Ms. Santizo is a 79-year-old female with a history of recurrent aspiration pneumonitis/pneumonia, chronic obstructive pulmonary disease/asthma (on 3 L oxygen at home), who presents with sepsis due to aspiration pneumonia. 1. Sepsis. Aspiration pneumonia. Acute on chronic respiratory failure. a. The patient had repeated admissions in the past year due to aspiration pneumonia. Likely a result of chronic dysphagia. b. Labs and CT are consistent with aspiration pneumonitis/pneumonia. c. qSOFA score is 2/3 considering altered mental state and respiratory rate. d. Plan: I. Considering the patient's allergy profile, started on vancomycin, cefepime and Flagyl, which the patient tolerated previously. II. Started gentle fluids considering the patient no longer within resuscitation window III. Blood cultures taken in the ED prior to administration of antibiotics. IV. We will check for strep Legionella in the urine, viral respiratory panel. V. COVID to be ruled out 2. Chronic kidney disease, 3. The patient currently at baseline. 3. Hypertension. a. The patient presented with hypertension. b. Held antihypertensives initially considering sepsis. c. We will restart patient gradually on blood pressure medication. 4. Chronic obstructive pulmonary disease/Asthma a. albuterol inhaler and dulera considering she is a COVID ruleout. 5. Disposition and prophylaxis. a. The patient is DNAR per patient's previous wishes based on , who is the surrogate decision maker and the daughter. b. Deep venous thrombosis prophylaxis, enoxaparin. c. Gastrointestinal prophylaxis. The patient is on pantoprazole. . Expected length of stay, three midnights. Job ID: [id number] [facility]
--- NOTE | 2020-02-03 20:20 | PDOC.EVN ---
Event Note - Event Note Event Note: Called per nursing for hypotension, AMS, worsening hypoxia after transferring to CCU from the ED. Pt presented for likely aspiration PNA in context of prior aspiration pneumonias and chronic dysphagia, bed bound status and chronic hypoxic resp failure on 3L/min NC. Vitals: BP 84/33, HR 96, RR 38, T- 100.5F, O2 sat 84% on 5L/min NC Gen: lethargic, unresponsive to voice/tactile, labored resp Chest: + accessory muscle use, diminished airflow bilat, coarse bilat CV: S1, S2, no appreciable murmur ABD: obese, soft, ND, no mass EXT: no peripheral edema, pulses palpable distally Neuro: lethargic, somnolent, does not respond to stimulus Labs: reviewed AB.44/34/54/23/88%, FIO2 32% Tele: SR in 90's A/P: Sepsis with septic shock - suspect aspiration pneumonia, Rocephin/Levaquin/ Zosyn in ER, IVF bolus x 2L now, trendelenburg PRN, avoid any antihypertensives continue IV abx, serial lactate, await final cx results Acute metabolic encephalopathy - secondary to #1, serial monitoring, consider CT brain if persistent Acute/chronic hypoxic resp failure - due to #1, high-flow NC @ 30L/min FIO2 40% , suction upper airway, Duonebs Code Status: DNAR, CPAP/BiPAP ok per Total critical care time: 40min
[2020-02-03] MEDS ORDERED: Vancomycin 1 GM in Premix Bag 1 BAG IVPB SCH ×2 (20:30→21:00)
[2020-02-03] MEDS ORDERED: Vancomycin 1.5 GRAM/300 ML BAG 1.5 GM in Premix Bag 1 BAG IVPB SCH (21:00)
[2020-02-03] MEDS ORDERED: Atorvastatin Calcium 10 MG TAB PO SCH (21:00)
[2020-02-03] MEDS ORDERED: ALPRAZolam 0.25 MG TAB PO SCH (21:00)
[2020-02-03] MEDS: metroNIDAZOLE 500 MG in Premix Bag 1 BAG IVPB SCH (21:23)
[2020-02-03] MEDS: Gabapentin 400 MG CAP PO SCH (21:23)
[2020-02-03] MEDS: Sodium Chloride 0.9% 1,000 ML IV SCH (21:24)
[2020-02-03] MEDS: Acetaminophen 325 MG TAB PO PRN (22:18)
[2020-02-03] MEDS: Albuterol 200 PUFF (6.7GM INHALER) INH SCH (23:30)
[2020-02-04] MEDS: Albuterol 200 PUFF (6.7GM INHALER) INH SCH ×4 (04:23→16:31)
[2020-02-04] MEDS: Mometasone 200 MCG/Formoterol 5 MCG 120 PUFF INHALER INH SCH ×2 (04:24→18:12)
[2020-02-04 04:29] LABS: ALT (SGPT) 29 U/L (8-55); AST (SGOT) 32 U/L (5-34); Albumin 3.5 g/dL (3.4-4.8); Alkaline Phosphatase 109 U/L (40-110); Anion Gap 19 mmol/L (10-20); BUN (Urea Nitrogen) 23 mg/dL (9.8-20.1); Bilirubin, Total 0.5 mg/dL (0.2-1.2); Calc. Creatinine Clearance 43 mL/min (70-130); Calcium 8.9 mg/dL (7.8-10.44); Carbon Dioxide 16 mmol/L (23-31); Chloride 105 mmol/L (98-107); Estimated GFR-MDRD 39; Glucose 120 mg/dL (83-110); Potassium 3.3 mmol/L (3.5-5.1); Protein, Total 6.5 g/dL (6.0-8.3); Sodium 137 mmol/L (136-145)
[2020-02-04 04:55] LABS: Band 18 % (5-11); Hemoglobin 12.7 g/dL (12.0-16.0); Lymphocytes 10 % (21-51); MDiff Complete? YES; Mean Corpuscular HGB CONC 31.6 g/dL (32.0-36.0); Mean Corpuscular Hemoglobin 28.7 pg (27.0-31.0); Mean Corpuscular Volume 90.9 fL (78.0-98.0); Mean Platelet Volume 7.9 fL (7.4-10.4); Monocytes 3 % (0-10); Neutrophil 69 % (42-75); Platelet Count 188 thou/uL (130-400); RBC Distribution Width 13.4 % (11.5-14.5); Red Blood Cell (RBC) Count 4.43 mill/uL (4.20-5.40); White Blood Cell (WBC) Count 21.1 thou/uL (4.8-10.8)
[2020-02-04] MEDS: metroNIDAZOLE 500 MG in Premix Bag 1 BAG IVPB SCH ×3 (05:09→20:27)
[2020-02-04] MEDS: Sodium Chloride 0.9% 1,000 ML IV SCH ×3 (05:11→21:07)
[2020-02-04] MEDS: Acetaminophen 325 MG TAB PO PRN (05:52)
[2020-02-04] MEDS ORDERED: Levothyroxine Sodium 125 MCG TAB PO SCH (06:00)
[2020-02-04] MEDS: Ondansetron PF 4 MG/2 ML Vial IVP PRN ×2 (06:15→09:51)
[2020-02-04] MEDS ORDERED: CCU Electrolyte Replacement 1 EACH FS ONE (07:34)
[2020-02-04] MEDS ORDERED: PHOS-NAK 1 PKT PACK PO PRN ×2 (07:48)
[2020-02-04] MEDS ORDERED: Potassium Phosphate 9 MMOL in Sodium Chloride 0.9% 100 ML IVPB PRN (07:48)
[2020-02-04] MEDS ORDERED: Potassium Phosphate 12 MMOL in Sodium Chloride 0.9% 250 ML 250 ML IV PRN (07:48)
[2020-02-04] MEDS ORDERED: Magnesium Oxide 400 MG TAB PO PRN ×2 (07:48)
[2020-02-04] MEDS ORDERED: Potassium Chloride 20 MEQ TAB PO PRN (07:48)
[2020-02-04] MEDS ORDERED: Potassium Phosphate 15 MMOL in Sodium Chloride 0.9% 250 ML 250 ML IV PRN (07:48)
[2020-02-04] MEDS ORDERED: CCU ELECTROLYTE REPLACEMENT PROTOCOL FS PRN (07:48)
[2020-02-04] MEDS ORDERED: Potassium Chloride 40 MEQ in Premix Bag 1 BAG IVPB PRN (07:48)
[2020-02-04] MEDS ORDERED: Magnesium 2 GM/50 ML 2 GM in Premix Bag 1 BAG IVPB PRN (07:48)
[2020-02-04] MEDS ORDERED: Metoprolol Tartrate 25 MG TAB PO SCH (09:00)
[2020-02-04 09:01] LABS: Legionella Urinary Ag Negative (Negative)
[2020-02-04 09:02] LABS: Strep pneumo Urine Ag NEGATIVE (NEGATIVE)
[2020-02-04] MEDS: Cefepime 1 GM in Sodium Chloride 0.9% 100 ML IVPB SCH ×2 (09:51→21:07)
[2020-02-04] MEDS: Potassium Chloride 40 MEQ in Sodium Chloride 0.9% 250 ML 250 ML IVPB PRN (09:52)
[2020-02-04] MEDS: Gabapentin 400 MG CAP PO SCH (10:20)
[2020-02-04] MEDS: Enoxaparin Sodium 30 MG/0.3 ML SYRINGE SC SCH (10:23)
[2020-02-04] MEDS: FLUoxetine HCl 10 MG CAP PO SCH (10:24)
[2020-02-04] MEDS ORDERED: Gabapentin 300 MG CAP PO SCH (12:00)
[2020-02-04] MEDS ORDERED: Pantoprazole 40 MG VIAL IVP SCH (13:00)
[2020-02-04] MEDS ORDERED: Ondansetron PF 4 MG/2 ML Vial IVP PRN (13:00)
[2020-02-04 13:42] LABS: Anion Gap 19 mmol/L (10-20); BUN (Urea Nitrogen) 19 mg/dL (9.8-20.1); Calc. Creatinine Clearance 43 mL/min (70-130); Calcium 9.5 mg/dL (7.8-10.44); Carbon Dioxide 16 mmol/L (23-31); Chloride 107 mmol/L (98-107); Estimated GFR-MDRD 39; Glucose 142 mg/dL (83-110); Magnesium 1.7 mg/dL (1.6-2.6); Potassium 3.7 mmol/L (3.5-5.1); Sodium 138 mmol/L (136-145)
[2020-02-04 13:47] LABS: Troponin I 0.021 ng/mL (< 0.028)
[2020-02-04] MEDS ORDERED: methylPREDNISolone Sod Succ/PF 125 MG/2 ML VIAL IVP SCH (14:05)
[2020-02-04] MEDS ORDERED: Bacteriostatic Water 30 ML VIAL FS PRN (14:18)
[2020-02-04] MEDS: Lorazepam 2 MG/ML VIAL SLOW IVP PRN ×2 (14:20→22:01)
[2020-02-04] MEDS: Labetalol HCl 100 MG/20 ML VIAL SLOW IVP PRN ×2 (14:20→20:25)
--- NOTE | 2020-02-04 14:36 | CON ---
DATE OF CONSULTATION: HISTORY OF PRESENT ILLNESS: Ms. Santizo is a 79-year-old female. She was hospitalized in September with an aspiration pneumonia. She has COPD. She also has chronic kidney disease. She presented this admission with respiratory distress. She is febrile. She is felt to have another aspiration-related event. Since she has been here, she has been vomiting, although family says she was not vomiting at home. Chest x-ray shows a fairly dense superior segment right lower lobe infiltrate. She has blunting of angle on the left. She has poor inspiratory effort on her chest x-ray. CT angiogram showed endobronchial abnormalities consistent with aspiration. PAST MEDICAL HISTORY: Remarkable for: 1. COPD, chronically on oxygen. 2. History of atrial fibrillation. 3. History of hypothyroidism. 4. History of lipid disorder. 5. Chronic kidney disease. 6. History of oropharyngeal dysphagia. 7. History of cholecystectomy, hysterectomy, and back surgery. SOCIAL HISTORY: She is a nonsmoker and nondrinker. FAMILY HISTORY: Negative for lung disease in early age. REVIEW OF SYSTEMS: Not accurately obtainable. According to Dr. Farrell's notes in September of last year, she has a history of tracheobronchomalacia. She has also been seen by my associate, Dr. Hook. She was admitted. In September, she had been on hospice care. PHYSICAL EXAMINATION: GENERAL: She is encephalopathic. VITAL SIGNS: She has high-flow oxygen in place, oximetry is 94%, respiratory rates in the high 20s. HEAD AND NECK: Unremarkable. LUNGS: Remarkable for rhonchi bilaterally. HEART: Regular rhythm. ABDOMEN: Soft. EXTREMITIES: Without edema. ASSESSMENT AND PLAN: Chest radiograph, chest CT have been reviewed. High likelihood of aspiration pneumonia. I believe COVID-19 is unlikely in this scenario. The test is pending. She is a do not resuscitate patient. She had been on hospice in the past. She can be moved out of the Critical Care Unit once her COVID screen is negative. She would not tolerate a bronchoscopy. There is unlikely to be any therapeutic benefit. This could not be done without intubation. I see no clinical reason to proceed forward with this. Oxygen can be weaned as tolerated. If her COVID screen is negative, she needs to be converted to nebulizer treatments. She will benefit probably from steroids. This is a 70 min consult with 50% of time spent on unit with coordination of care. Job ID: [id number] MTDD
--- NOTE | 2020-02-04 16:57 | EKG ---
Test Reason : STAT Blood Pressure : / mmHG Vent. Rate : 085 BPM Atrial Rate : 085 BPM P-R Int : 200 ms QRS Dur : 114 ms QT Int : 406 ms P-R-T Axes : 057 -57 083 degrees QTc Int : 483 ms Normal sinus rhythm Left axis deviation T wave abnormality, consider lateral ischemia Abnormal ECG When compared with ECG of 19-SEP-2019 01:37, Fusion complexes are no longer Present Premature ventricular complexes are no longer Present Premature supraventricular complexes are no longer Present Incomplete right bundle branch block is no longer Present Minimal criteria for Anteroseptal infarct are no longer Present Confirmed by DR. Kj ALVAREZ ([id number]) on 02/04/2020 4:56:46 PM Referred By: VICENTE Confirmed By:DR. Kj ALVAREZ
[2020-02-04] MEDS ORDERED: Acetaminophen 325 MG Suppository PR PRN (17:48)
--- NOTE | 2020-02-04 18:12 | PDOC.HOSPP ---
- Subjective Encounter Date: 02/04/20 Encounter Time: 09:00 Subjective: overnight, was hypotensive, responded well to boluses. This morning, tachypnic and feeling unwell. Promptly improved after received home medication equivalents in IV - Objective Vital Signs & Weight: Vital Signs (12 hours) Temp Pulse Resp BP Pulse Ox 02/04/20 18:04 104 H 30 H 95 02/04/20 15:00 98.6 F 02/04/20 14:20 136 H 166/101 H 02/04/20 12:00 98.8 F 02/04/20 08:24 97 02/04/20 08:00 94 L 02/04/20 07:00 99.3 F Weight Weight 174 lb Most Recent Monitor Data Heart Rate from ECG 104 NIBP 121/93 NIBP BP-Mean 102 Respiration from ECG 32 SpO2 95 I&O: 02/03/20 02/04/20 02/05/20 06:59 06:59 06:59 Intake Total 2764 1418 Output Total 970 1430 Balance 1794 -12 Result Diagrams: 02/04/20 03:42 02/04/20 13:07 Additional Labs: Accuchecks 02/04/20 02/04/20 02/04/20 14:36 10:01 03:30 POC Glucose 137 H 146 H 129 H 02/04/20 02/03/20 01:03 21:37 POC Glucose 127 H 106 Hospitalist ROS - Review of Systems Constitutional: denies: fever, chills, sweats, weakness, malaise, other Respiratory: reports: cough, shortness of breath, SOB with excertion. denies: dry, hemoptysis, pleuritic pain, sputum, wheezing, other Cardiovascular: reports: edema. denies: chest pain, palpitations, orthopnea, paroxysmal noc. dyspnea, light headedness, other Gastrointestinal: denies: nausea, vomiting, abdominal pain, diarrhea, constipation, melena, hematochezia, other - Medication Medications: Active Medications Generic Name Dose Route Start Last Admin Trade Name Freq PRN Reason Stop Dose Admin Acetaminophen 650 mg 02/03/20 19:38 02/04/20 05:52 Tylenol PO 650 mg Q4H PRN Administration Headache/Fever/Mild Pain (1-3) Albuterol/Ipratropium 3 ml 02/04/20 18:30 02/04/20 18:04 Duoneb NEB 3 ml [id number] JERMAINE Administration Enoxaparin Sodium 30 mg 02/04/20 09:00 02/04/20 10:23 Lovenox SC 30 mg 0900 JERMAINE Administration Fluoxetine HCl 30 mg 02/04/20 09:00 02/04/20 10:24 Prozac PO Not Given DAILY JERMAINE Metronidazole 500 mg/ Device 100 mls @ 100 mls/hr 02/03/20 20:00 02/04/20 12: 37 IVPB 100 mls 0400,1200,2000 JERMAINE Administration Cefepime HCl 1 gm/ Sodium 100 mls @ 200 mls/hr 02/04/20 09:00 02/04/20 09:51 Chloride IVPB 100 mls Q12HR JERMAINE Administration Sodium Chloride 1,000 mls @ 75 mls/hr 02/04/20 07:37 02/04/20 10:23 Normal Saline 0.9% IV 1,000 mls .[id number] JERMAINE Administration Potassium Chloride 40 meq/ 270 mls @ 135 mls/hr 02/04/20 07:48 02/04/20 09:52 Sodium Chloride IVPB 270 mls ASDIR PRN Administration FOR SERUM K+ 2.5 - 3.5 Labetalol HCl 10 mg 02/04/20 12:46 02/04/20 14:20 Normodyne SLOW IVP 10 mg Q6H PRN Administration Hypertension Lorazepam 0.5 mg 02/04/20 12:51 02/04/20 14:20 Ativan SLOW IVP 0.5 mg Q6H PRN Administration Anxiety/Agitation Mometasone Furoate/Formoterol Fumar 2 puff 02/04/20 06:30 02/04/20 04:24 Dulera 200 Mcg/5 Mcg Inhaler INH 2 puff BID-RT JERMAINE Administration Pantoprazole Sodium 40 mg 02/04/20 09:00 02/04/20 10:24 Protonix PO Not Given DAILY JERMAINE - Exam General Appearance: awake alert General - other findings: in moderate distress Heart: no murmur, no gallops, no rubs Heart - other findings: tachycardic in 100-110s, sinus on tele Respiratory: no wheezes, no rales, no ronchi, tachypneic (on 30 fio2 HFNC) Gastrointestinal: soft, non-tender, non-distended, normal bowel sounds Extremities: 1+ LE edema Psychiatric: normal behavior, A&O x 3, flat affect Hosp A/P - Plan #aspiration pneumonia #chronic dysphagia -refused PEG in the past -continue vanc cef and flagyl; will likely deescalate -covid ruled out -maintain fluids to match I/O -attempt to wean off HFNC #COPD/Asthma -continue respiratory treatments -started IV steroid per PCCM DNAR; COVID RULED OUT
[2020-02-04] MEDS: Morphine 2 MG/ML SYRINGE SLOW IVP PRN (19:48)
[2020-02-04] MEDS ORDERED: Vancomycin 1 GM in Premix Bag 1 BAG IVPB SCH (21:00)
[2020-02-05] MEDS: Morphine 2 MG/ML SYRINGE SLOW IVP PRN ×2 (00:48→20:02)
[2020-02-05] MEDS: Labetalol HCl 100 MG/20 ML VIAL SLOW IVP PRN ×5 (02:06→23:21)
[2020-02-05 04:12] LABS: #Lymphocytes 1.2 thou/uL (1.20-3.40); #Monocytes 0.4 thou/uL (0.11-0.59); %Basophils 0.2 % (0.0-1.0); %Lymphocytes 7.3 % (21.0-51.0); %Monocytes 2.6 % (0.0-10.0); %Neutrophils 89.9 % (42.0-75.0); Hemoglobin 12.4 g/dL (12.0-16.0); Mean Corpuscular HGB CONC 32.5 g/dL (32.0-36.0); Mean Corpuscular Hemoglobin 28.6 pg (27.0-31.0); Mean Corpuscular Volume 88.1 fL (78.0-98.0); Mean Platelet Volume 8.5 fL (7.4-10.4); Platelet Count 193 thou/uL (130-400); RBC Distribution Width 13.3 % (11.5-14.5); Red Blood Cell (RBC) Count 4.32 mill/uL (4.20-5.40); White Blood Cell (WBC) Count 16.7 thou/uL (4.8-10.8)
[2020-02-05 04:24] LABS: Anion Gap 15 mmol/L (10-20); BUN (Urea Nitrogen) 18 mg/dL (9.8-20.1); Calc. Creatinine Clearance 48 mL/min (70-130); Calcium 9.7 mg/dL (7.8-10.44); Carbon Dioxide 18 mmol/L (23-31); Chloride 111 mmol/L (98-107); Estimated GFR-MDRD 45; Glucose 227 mg/dL (83-110); Magnesium 1.9 mg/dL (1.6-2.6); Potassium 3.2 mmol/L (3.5-5.1); Sodium 141 mmol/L (136-145)
[2020-02-05] MEDS: metroNIDAZOLE 500 MG in Premix Bag 1 BAG IVPB SCH ×3 (04:34→20:01)
[2020-02-05] MEDS: Lorazepam 2 MG/ML VIAL SLOW IVP PRN ×2 (04:35→21:17)
[2020-02-05] MEDS: Potassium Chloride 40 MEQ in Sodium Chloride 0.9% 250 ML 250 ML IVPB PRN (05:42)
[2020-02-05] MEDS: Levothyroxine Sodium 200 MCG VIAL IVP SCH (05:42)
[2020-02-05] MEDS: Mometasone 200 MCG/Formoterol 5 MCG 120 PUFF INHALER INH SCH ×2 (07:15→18:28)
--- NOTE | 2020-02-05 07:15 | RAD ---
EXAM: CHEST ONE VIEW HISTORY: On ventilator. Follow-up evaluation. COMPARISON: 02/03/2020 FINDINGS: Cardiac silhouette is enlarged. Pulmonary vasculature is within normal limits. Patchy parenchymal den sities are seen at each lung base better visualized on the right which may be related to pneumonia versus aspiration pneumonitis. Questionable small bilateral pleural effusions are present, but this i s difficult to definitely evaluate given shallow depth of inspiration. Chest is not significantly changed when compared to prior exam. Severe left glenohumeral osteoarthropathy is present. IMPRESSION: 1. Patchy parenchymal densities at each lung base which may represent bibasilar pneumonia versus aspi ration pneumonitis. Continued follow-up to complete resolution is recommended. 2. Mild cardiomegaly.
[2020-02-05] MEDS: Enoxaparin Sodium 30 MG/0.3 ML SYRINGE SC SCH (08:09)
[2020-02-05] MEDS: Pantoprazole 40 MG VIAL IVP SCH (08:10)
[2020-02-05] MEDS: FLUoxetine HCl 10 MG CAP PO SCH (08:19)
[2020-02-05] MEDS: Cefepime 1 GM in Sodium Chloride 0.9% 100 ML IVPB SCH ×2 (08:21→20:02)
[2020-02-05] MEDS ORDERED: methylPREDNISolone Sod Succ/PF 125 MG/2 ML VIAL IVP SCH (09:00)
--- NOTE | 2020-02-05 09:04 | PRG ---
DATE OF SERVICE: 02/05/2020 SUBJECTIVE: This is an 80-year-old female, well known to me, recurrent admissions to the hospital, this time with mental status change. X-ray shows chronic changes. CT chest confirmed the chronic changes and bibasilar infiltrates, probably recurrent aspiration. She has significant dysphagia. This morning, she is encephalopathic, but slightly more arousable. OBJECTIVE: VITAL SIGNS: Pulse 127, blood pressure 150/80, saturations are 96%, respirations 18. She is on high-flow. CHEST: Bilateral crackles. CARDIAC: Normal S1 and S2. No gallops. ABDOMEN: No masses. LABORATORY DATA: Creatinine is normal. BUN is normal. White count is 16,000. ASSESSMENT: Respiratory failure, encephalopathy, recurrent aspiration, dysphagia. PLAN: I agree with her Maxipime, steroids, vancomycin, and neb treatments as tolerated. Deescalate antibiotics once cultures are back. She is a DNR. Job ID: [id number]
[2020-02-05] MEDS ORDERED: Potassium Chloride 40 MEQ in Sodium Chloride 0.9% 250 ML 250 ML IVPB SCH (10:00)
[2020-02-05] MEDS: Sodium Chloride 0.9% 1,000 ML IV SCH (11:53)
[2020-02-05] MEDS ORDERED: Sodium Chloride 0.9% 1,000 ML IV SCH (12:27)
[2020-02-05] MEDS: Dextrose 5 % And 0.9 % NaCl 1,000 ML IV SCH (13:17)
--- NOTE | 2020-02-05 19:01 | PDOC.HOSPP ---
- Subjective Encounter Date: 02/05/20 Encounter Time: 09:00 Subjective: no overnight events. This mornining, claims that breathing is better and overall feeling better but appears in distress and tachypnic. Awaiting swallow eval to attempt to transition back to oral medicaitons - Objective Vital Signs & Weight: Vital Signs (12 hours) Temp Pulse Pulse Pulse Pulse Resp BP 02/05/20 18:27 91 22 H 02/05/20 18:18 132 H 169/97 H 02/05/20 15:55 99.4 F 02/05/20 15:04 106 H 36 H 02/05/20 14:26 130 H 161/101 H 02/05/20 11:52 99.3 F 02/05/20 11:47 02/05/20 11:43 120 H 34 H 02/05/20 09:15 120 H 107 H 02/05/20 08:44 115 H 104 H 110 H 02/05/20 08:00 02/05/20 07:47 127 H 168/83 H 02/05/20 07:33 99.3 F 02/05/20 07:15 02/05/20 07:11 121 H 36 H BP BP BP Pulse Ox Pulse Ox Pulse Ox 02/05/20 18:27 98 02/05/20 18:18 02/05/20 15:55 02/05/20 15:04 98 02/05/20 14:26 02/05/20 11:52 02/05/20 11:47 98 02/05/20 11:43 98 02/05/20 09:15 172/101 H 166/85 H 95 95 02/05/20 08:44 155/112 H 164/87 H 166/95 H 92 L 02/05/20 08:00 95 02/05/20 07:47 02/05/20 07:33 02/05/20 07:15 96 02/05/20 07:11 96 Weight Weight 174 lb Most Recent Monitor Data Heart Rate from ECG 122 NIBP 169/97 NIBP BP-Mean 121 Respiration from ECG 35 SpO2 98 I&O: 02/04/20 02/05/20 02/06/20 06:59 06:59 06:59 Intake Total 6379 6341 1505 Output Total 970 2530 1100 Balance 1794 48 405 Result Diagrams: 02/05/20 03:39 02/05/20 03:39 Hospitalist ROS - Review of Systems Constitutional: denies: fever, chills, sweats, weakness, malaise, other Respiratory: denies: cough, dry, shortness of breath, hemoptysis, SOB with excertion, pleuritic pain, sputum, wheezing, other Cardiovascular: denies: chest pain, palpitations, orthopnea, paroxysmal noc. dyspnea, edema, light headedness, other Gastrointestinal: denies: nausea, vomiting, abdominal pain, diarrhea, constipation, melena, hematochezia, other - Medication Medications: Active Medications Generic Name Dose Route Start Last Admin Trade Name Freq PRN Reason Stop Dose Admin Albuterol/Ipratropium 3 ml 02/04/20 18:30 02/05/20 18:27 Duoneb NEB 3 ml [id number] JERMAINE Administration Enoxaparin Sodium 30 mg 02/04/20 09:00 02/05/20 08:09 Lovenox SC 30 mg 0900 JERMAINE Administration Fluoxetine HCl 30 mg 02/04/20 09:00 02/05/20 08:19 Prozac PO Not Given DAILY JERMAINE Metronidazole 500 mg/ Device 100 mls @ 100 mls/hr 02/03/20 20:00 02/05/20 13: 06 IVPB 100 mls 0400,1200,2000 JERMAINE Administration Vancomycin HCl 1 gm/ Device 200 mls @ 200 mls/hr 02/04/20 21:00 02/04/20 21: 08 IVPB 200 mls 2100 JERMAINE Administration Cefepime HCl 1 gm/ Sodium 100 mls @ 200 mls/hr 02/04/20 09:00 02/05/20 08:21 Chloride IVPB 100 mls Q12HR JERMAINE Administration Potassium Chloride 40 meq/ 270 mls @ 135 mls/hr 02/04/20 07:48 02/05/20 05:42 Sodium Chloride IVPB 270 mls ASDIR PRN Administration FOR SERUM K+ 2.5 - 3.5 Dextrose/Sodium Chloride 1,000 mls @ 75 mls/hr 02/05/20 12:30 02/05/20 13:17 D5 0.9% Ns IV 1,000 mls .[id number] JERMAINE Administration Labetalol HCl 10 mg 02/05/20 12:25 04/28/20 18:18 Normodyne SLOW IVP 10 mg Q4H PRN Administration BP > 160/90 or HR > 90 Levothyroxine Sodium 75 mcg 02/05/20 06:00 02/05/20 05:42 Synthroid IVP 75 mcg 0600 JERMAINE Administration Lorazepam 0.5 mg 02/04/20 12:51 02/05/20 04:35 Ativan SLOW IVP 0.5 mg Q6H PRN Administration Anxiety/Agitation Mometasone Furoate/Formoterol Fumar 2 puff 02/04/20 06:30 02/05/20 18:28 Dulera 200 Mcg/5 Mcg Inhaler INH 2 puff BID-RT JERMAINE Administration Morphine Sulfate 2 mg 02/04/20 13:08 02/05/20 00:48 Morphine SLOW IVP 2 mg Q4H PRN Administration Pain Pantoprazole Sodium 40 mg 02/05/20 09:00 02/05/20 08:10 Protonix IVP 40 mg DAILY JERMAINE Administration - Exam General Appearance: awake alert General - other findings: in moderate distress due to tachypnea Heart: no murmur, no gallops, no rubs Heart - other findings: tachycardic, in 130s, sinus on tele Gastrointestinal: soft, non-tender, non-distended Extremities: 1+ LE edema Psychiatric: normal affect, normal behavior, A&O x 3 Hosp A/P - Plan #aspiration pneumonia #chronic dysphagia -refused PEG in the past -continue vanc cef and flagyl -covid ruled out -maintain fluids to match I/O -attempt to wean off HFNC #COPD/Asthma -continue respiratory treatments -started IV steroid per PCCM DNAR; COVID RULED OUT Assuming off HFNC, likely transition to medical floor 02/05
[2020-02-05 20:42] LABS: Vancomycin, Trough 12.2 ug/mL
[2020-02-05] MEDS ORDERED: Vancomycin HCl 1.25 GM in Sodium Chloride 0.9% 250 ML 250 ML IVPB SCH (21:00)
[2020-02-06] MEDS: Dextrose 5 % And 0.9 % NaCl 1,000 ML IV SCH (02:27)
[2020-02-06 04:13] LABS: Anion Gap 13 mmol/L (10-20); BUN (Urea Nitrogen) 22 mg/dL (9.8-20.1); Calc. Creatinine Clearance 50 mL/min (70-130); Calcium 9.7 mg/dL (7.8-10.44); Carbon Dioxide 19 mmol/L (23-31); Chloride 119 mmol/L (98-107); Estimated GFR-MDRD 47; Glucose 185 mg/dL (83-110); Potassium 3.6 mmol/L (3.5-5.1); Sodium 147 mmol/L (136-145)
[2020-02-06] MEDS: metroNIDAZOLE 500 MG in Premix Bag 1 BAG IVPB SCH ×3 (04:35→20:03)
[2020-02-06] MEDS: Labetalol HCl 100 MG/20 ML VIAL SLOW IVP PRN ×3 (05:06→21:52)
[2020-02-06] MEDS: Lorazepam 2 MG/ML VIAL SLOW IVP PRN ×2 (05:37→23:21)
[2020-02-06] MEDS: Levothyroxine Sodium 200 MCG VIAL IVP SCH (05:37)
[2020-02-06] MEDS: Mometasone 200 MCG/Formoterol 5 MCG 120 PUFF INHALER INH SCH ×2 (06:54→18:11)
[2020-02-06] MEDS ORDERED: methylPREDNISolone Sod Succ 40 MG VIAL IVP SCH (09:00)
--- NOTE | 2020-02-06 09:10 | PDOC.HOSPP ---
- Subjective Encounter Date: 02/06/20 Encounter Time: 08:00 Subjective: overnight, has been on 3L NC but remains tachypnic. This morning, drowsier than yesterday and appears dry on exam. Acute hypernatremia on labs. On telemetry, atrial fibrillation w/ RVR and after reviewing tele, nonsustained vtach with retrograde p waves. Dr. Valdivia was present and requested advice, recommended to start on amiodarone drip. - Objective Vital Signs & Weight: Vital Signs (12 hours) Temp Pulse Resp BP Pulse Ox 02/06/20 07:40 97.9 F 02/06/20 06:53 108 H 34 H 99 02/06/20 05:06 123 H 174/105 H 02/06/20 03:41 98.3 F 02/06/20 02:05 102 H 20 98 02/05/20 23:21 146 H 171/112 H 02/05/20 23:19 98.4 F Weight Weight 174 lb Most Recent Monitor Data Heart Rate from ECG 106 NIBP 166/99 NIBP BP-Mean 121 Respiration from ECG 17 SpO2 98 I&O: 02/05/20 02/06/20 02/07/20 06:59 06:59 06:59 Intake Total 2578 1505 Output Total 2530 1100 Balance 48 405 Result Diagrams: 02/05/20 03:39 02/06/20 03:23 Hospitalist ROS - Review of Systems Constitutional: reports: weakness, malaise. denies: chills, sweats Respiratory: denies: cough, dry Cardiovascular: denies: chest pain, palpitations Gastrointestinal: denies: nausea, vomiting, abdominal pain - Medication Medications: Active Medications Generic Name Dose Route Start Last Admin Trade Name Freq PRN Reason Stop Dose Admin Albuterol/Ipratropium 3 ml 02/04/20 18:30 02/06/20 06:53 Duoneb NEB 3 ml [id number] JERMAINE Administration Enoxaparin Sodium 30 mg 02/04/20 09:00 02/05/20 08:09 Lovenox SC 30 mg 0900 JERMAINE Administration Fluoxetine HCl 30 mg 02/04/20 09:00 02/05/20 08:19 Prozac PO Not Given DAILY JERMAINE Metronidazole 500 mg/ Device 100 mls @ 100 mls/hr 02/03/20 20:00 02/06/20 04: 35 IVPB 100 mls 0400,1200,2000 JERMAINE Administration Cefepime HCl 1 gm/ Sodium 100 mls @ 200 mls/hr 02/04/20 09:00 02/05/20 20:02 Chloride IVPB 100 mls Q12HR JERMAINE Administration Potassium Chloride 40 meq/ 270 mls @ 135 mls/hr 02/04/20 07:48 02/05/20 05:42 Sodium Chloride IVPB 270 mls ASDIR PRN Administration FOR SERUM K+ 2.5 - 3.5 Vancomycin HCl 1.25 gm/ Sodium 250 mls @ 166.667 mls/hr 02/05/20 21:00 21:10 Chloride IVPB 250 mls 2100 JERMAINE Administration Labetalol HCl 10 mg 02/05/20 12:25 02/06/20 05:06 Normodyne SLOW IVP 10 mg Q4H PRN Administration BP > 160/90 or HR > 90 Levothyroxine Sodium 75 mcg 02/05/20 06:00 02/06/20 05:37 Synthroid IVP 75 mcg 0600 JERMAINE Administration Lorazepam 0.5 mg 02/04/20 12:51 02/06/20 05:37 Ativan SLOW IVP 0.5 mg Q6H PRN Administration Anxiety/Agitation Mometasone Furoate/Formoterol Fumar 2 puff 02/04/20 06:30 02/06/20 06:54 Dulera 200 Mcg/5 Mcg Inhaler INH 2 puff BID-RT JERMAINE Administration Morphine Sulfate 2 mg 02/04/20 13:08 02/05/20 20:02 Morphine SLOW IVP 2 mg Q4H PRN Administration Pain Pantoprazole Sodium 40 mg 02/05/20 09:00 02/05/20 08:10 Protonix IVP 40 mg DAILY JERMAINE Administration - Exam General Appearance: ill appearing General - other findings: in mild distress Eye: PERRL Heart: no murmur, no gallops, no rubs Respiratory: CTAB, no wheezes, no rales, no ronchi Gastrointestinal: soft, non-tender, non-distended, normal bowel sounds Extremities: 1+ LE edema Psychiatric: A&O x 3 Psychiatric - other findings: drowsier than yesterday Hosp A/P - Plan #atrial fibrillation w/ RVR #possible nonsustained Vtach -not new; as of 2018 based on cardiology note, used to be on multaq; based on 2019 dc packet, was not on multaq -Start amiodarone drip -history of GI bleed; will hold off anticoag despite CHADSVASC of 4 #aspiration pneumonia #chronic dysphagia -refused PEG in the past -no respiratory culture available -continue vanc, cef and flagyl -covid ruled out -maintain fluids to match I/O -patient chose to eat despite aspiration risk as explained by speech and swallow team and PCCM #acute hypernatremia -Na 147 -dry on exam -change from 0.9%NS+D5W to D5W #COPD/Asthma -continue respiratory treatments -continue IV steroid per PCCM DNAR; COVID RULED OUT transfer to telemetry
--- NOTE | 2020-02-06 09:16 | PRG ---
DATE OF SERVICE: 02/06/2020 SUBJECTIVE: This morning, she is much more awake, responsive. OBJECTIVE: VITAL SIGNS: Temperature 97, pulse 108, respirations 34, saturations are 93% on 3 L, blood pressure 166/99. CHEST: Decreased breath sounds. No wheezing. CARDIAC: Normal S1, S2. No gallops. ABDOMEN: Soft. IMPRESSION: Recurrent aspiration secondary to dysphagia, severe deconditioning, hypoventilation syndrome. PLAN: Still on Maxipime and vancomycin. As of tomorrow, we will discontinue vancomycin if cultures are negative. Continue neb treatments, steroids. She can be transferred to the medical floor. She is a do not intubate, DNR. Job ID: [id number]
[2020-02-06] MEDS: Enoxaparin Sodium 30 MG/0.3 ML SYRINGE SC SCH (09:27)
[2020-02-06] MEDS: Pantoprazole 40 MG VIAL IVP SCH (09:27)
[2020-02-06] MEDS: FLUoxetine HCl 10 MG CAP PO SCH (09:40)
[2020-02-06] MEDS: Cefepime 1 GM in Sodium Chloride 0.9% 100 ML IVPB SCH ×2 (09:43→20:03)
[2020-02-06] MEDS: Dextrose 5% in Water 1,000 ML IV SCH (09:43)
[2020-02-06] MEDS: Amiodarone 450 MG in Dextrose 5% in Water 250 ML IVPB SCH ×2 (11:01→18:42)
[2020-02-06] MEDS: methylPREDNISolone Sod Succ 40 MG VIAL IVP SCH (11:10)
--- NOTE | 2020-02-06 11:44 | CON ---
DATE OF CONSULTATION: 02/06/2020 PRIMARY MULTIMEDIA MANAGER: Dr. Yareli Lino. REASON FOR CONSULTATION: Tachycardia. HISTORY OF PRESENT ILLNESS: Ms. Santizo is an 80-year-old woman who was admitted to the hospital with difficulty breathing and thought to have likely aspiration pneumonia. She has a history of tachycardia in the past with atrial arrhythmias. Today and last night, she was noted to have very rapid heart rates in the range of 220 to 240 beats per minute. The patient is unable to give any history. Currently, her mental status is diminished. She does not report chest pain or pressure. As mentioned, the patient is thought to have recurrent aspiration pneumonia. MEDICATIONS: Medications at home included; 1. Levothyroxine. 2. Valsartan. 3. Potassium. 4. Atorvastatin. 5. Metoprolol. 6. Amlodipine. But she has been unable to swallow any medicines here. ALLERGIES: SHE HAS MULTIPLE ALLERGIES OUTLINED IN THE CHART. REVIEW OF SYSTEMS: Review of systems is not really obtainable due to mental status. PHYSICAL EXAMINATION: GENERAL: This is a pleasant elderly woman. VITAL SIGNS: Her heart rate is variable, sometimes it is in the 90s, sometimes in the 120s. Most recent blood pressure 173/90. LUNGS: Clear. CARDIAC: Normal S1, normal S2. There is a soft systolic murmur in the left mid sternal border. No diastolic murmur. No S3. ABDOMEN: Soft, nontender. EXTREMITIES: No clubbing or cyanosis. There is no edema. PERTINENT LABORATORY DATA: Potassium is 3.6, chloride is 119, creatinine 1.11. Echocardiogram done last fall showed that the ejection fraction is 55% to 60% with diastolic dysfunction. Looking at the heart rhythm, she is usually in sinus rhythm, but there are periods what looks like atrial fibrillation with a very rapid ventricular response at times. Some of this could be ventricular tachycardia, but I think it is mostly if not all atrial fibrillation with a very rapid rate. It does look somewhat irregular even when it is extremely rapid. If I cannot exclude the possibility, some of it could be ventricular in origin. The patient's current code status do not resuscitate. ASSESSMENT: 1. Recurrent tachycardia with normal left ventricular function, a lot of this appears to be likely atrial fibrillation with a very rapid ventricular response. There is some possibility that some of it could be ventricular tachycardia, but I think it is mostly atrial fibrillation with rapid ventricular response. 2. The patient is unable to swallow medicines presently. PLAN: 1. We will start her on intravenous amiodarone infusion. 2. Dr. Lino to resume care tomorrow. Job ID: [id number] MTDD
--- NOTE | 2020-02-06 12:44 | EKG ---
Test Reason : Blood Pressure : / mmHG Vent. Rate : 122 BPM Atrial Rate : 122 BPM P-R Int : 162 ms QRS Dur : 112 ms QT Int : 336 ms P-R-T Axes : 051 -60 105 degrees QTc Int : 478 ms Sinus tachycardia with occasional premature atrial contractions Left anterior fascicular block Abnormal ECG Confirmed by DR. Kj ALVAREZ ([id number]) on 02/06/2020 12:44:15 PM Referred By: VICENTE Confirmed By:DR. Kj ALVAREZ
[2020-02-06] MEDS ORDERED: D5 1/2 NS w/20 mEq KCL 1,000 ML ONE (13:52)
[2020-02-07] MEDS: Dextrose 5% in Water 1,000 ML IV SCH ×2 (01:42→12:47)
[2020-02-07] MEDS: Labetalol HCl 100 MG/20 ML VIAL SLOW IVP PRN ×2 (03:41→20:04)
[2020-02-07] MEDS: metroNIDAZOLE 500 MG in Premix Bag 1 BAG IVPB SCH (03:44)
[2020-02-07 04:17] LABS: Anion Gap 11 mmol/L (10-20); BUN (Urea Nitrogen) 28 mg/dL (9.8-20.1); Calc. Creatinine Clearance 48 mL/min (70-130); Calcium 9.8 mg/dL (7.8-10.44); Carbon Dioxide 21 mmol/L (23-31); Chloride 115 mmol/L (98-107); Estimated GFR-MDRD 45; Glucose 152 mg/dL (83-110); Potassium 3.3 mmol/L (3.5-5.1); Sodium 144 mmol/L (136-145)
[2020-02-07 04:20] LABS: Band 4 % (5-11); Hemoglobin 13.3 g/dL (12.0-16.0); Lymphocytes 10 % (21-51); MDiff Complete? YES; Mean Corpuscular HGB CONC 30.6 g/dL (32.0-36.0); Mean Corpuscular Hemoglobin 27.5 pg (27.0-31.0); Mean Corpuscular Volume 90.1 fL (78.0-98.0); Mean Platelet Volume 8.3 fL (7.4-10.4); Monocytes 5 % (0-10); Myelocyte 1 % (0-0); Neutrophil 80 % (42-75); Platelet Count 290 thou/uL (130-400); Red Blood Cell (RBC) Count 4.85 mill/uL (4.20-5.40); White Blood Cell (WBC) Count 17.3 thou/uL (4.8-10.8)
[2020-02-07] MEDS: Levothyroxine 100 MCG SDV IVP SCH (06:17)
[2020-02-07] MEDS: Mometasone 200 MCG/Formoterol 5 MCG 120 PUFF INHALER INH SCH ×2 (07:25→18:13)
--- NOTE | 2020-02-07 09:03 | PRG ---
DATE OF SERVICE: 02/07/2020 SUBJECTIVE: This morning, she is more awake and responsive. OBJECTIVE: VITAL SIGNS: Blood pressure 183/87, pulse rate , and saturations are . CHEST: Decreased breath sounds. No wheezing. CARDIAC: Normal S1 and S2. ABDOMEN: No masses. IMPRESSION: 1. Recurrent aspiration and dysphagia. Severe deconditioning. 2. Supraventricular tachycardia. The patient has a longstanding history of dysphagia and recurrent aspiration even at home. She is a DNR. She wants to eat, she does not want a PEG. PLAN: I would switch her over to her oral medication. Continue Maxipime, discontinue Flagyl. Eventually placement. Job ID: [id number]
[2020-02-07] MEDS: Potassium Chloride 40 MEQ in Sodium Chloride 0.9% 250 ML 250 ML IVPB SCH ×2 (09:27→14:49)
[2020-02-07] MEDS: Cefepime 1 GM in Sodium Chloride 0.9% 100 ML IVPB SCH ×2 (09:27→21:30)
[2020-02-07] MEDS: Enoxaparin Sodium 30 MG/0.3 ML SYRINGE SC SCH (09:42)
[2020-02-07] MEDS: FLUoxetine HCl 10 MG CAP PO SCH (09:43)
[2020-02-07] MEDS: methylPREDNISolone Sod Succ 40 MG VIAL IVP SCH (09:44)
[2020-02-07] MEDS: Pantoprazole 40 MG VIAL IVP SCH (09:44)
[2020-02-07] MEDS: Amiodarone 450 MG in Dextrose 5% in Water 250 ML IVPB SCH (09:45)
[2020-02-07] MEDS ORDERED: Amlodipine 10 MG TAB PO SCH (13:15)
--- NOTE | 2020-02-07 13:24 | PDOC.HOSPP ---
- Subjective Encounter Date: 02/07/20 Encounter Time: 08:00 Subjective: no overnight events. This morning, more alert, sitting comfortably in bed and having her breakfast. Has no complaints - Objective Vital Signs & Weight: Vital Signs (12 hours) Temp Pulse Resp BP Pulse Ox 02/07/20 11:23 96.7 F L 02/07/20 10:24 112 H 26 H 99 02/07/20 08:00 100 02/07/20 07:23 119 H 29 H 99 02/07/20 07:09 97.3 F L 02/07/20 03:41 104 H 182/105 H 02/07/20 02:37 103 H 28 H 100 02/07/20 02:33 99 Weight Weight 174 lb Most Recent Monitor Data Heart Rate from ECG 130 NIBP 160/90 NIBP BP-Mean 113 Respiration from ECG 22 SpO2 97 I&O: 02/06/20 02/07/20 02/08/20 06:59 06:59 06:59 Intake Total 1505 2468.00 Output Total 1100 1975 Balance 405 493.00 Result Diagrams: 02/07/20 03:21 02/07/20 03:21 Hospitalist ROS - Review of Systems Constitutional: denies: fever, chills, sweats, weakness, malaise, other Respiratory: denies: cough, dry, shortness of breath, hemoptysis, SOB with excertion, pleuritic pain, sputum, wheezing, other Cardiovascular: denies: chest pain, palpitations, orthopnea, paroxysmal noc. dyspnea, edema, light headedness, other Gastrointestinal: denies: nausea, vomiting, abdominal pain, diarrhea, constipation, melena, hematochezia, other - Medication Medications: Active Medications Generic Name Dose Route Start Last Admin Trade Name Freq PRN Reason Stop Dose Admin Albuterol/Ipratropium 3 ml 02/04/20 18:30 02/07/20 10:24 Duoneb NEB 3 ml [id number] JERMAINE Administration Enoxaparin Sodium 30 mg 02/04/20 09:00 02/07/20 09:42 Lovenox SC 30 mg 0900 JERMAINE Administration Fluoxetine HCl 30 mg 02/04/20 09:00 02/07/20 09:43 Prozac PO 30 mg DAILY JERMAINE Administration Cefepime HCl 1 gm/ Sodium 100 mls @ 200 mls/hr 02/04/20 09:00 02/07/20 09:27 Chloride IVPB 100 mls Q12HR JERMAINE Administration Potassium Chloride 40 meq/ 270 mls @ 135 mls/hr 02/04/20 07:48 02/05/20 05:42 Sodium Chloride IVPB 270 mls ASDIR PRN Administration FOR SERUM K+ 2.5 - 3.5 Dextrose/Water 1,000 mls @ 75 mls/hr 02/06/20 08:15 02/07/20 12:47 D5w IV 1,000 mls .[id number] JERMAINE Administration Amiodarone HCl 450 mg/ 259 mls @ 0 mls/hr 02/06/20 09:45 02/07/20 09:45 Dextrose/Water IVPB 259 mls INF JERMAINE Administration Protocol Per Protocol Potassium Chloride 40 meq/ 270 mls @ 67.5 mls/hr 02/07/20 08:00 02/07/20 09: 27 Sodium Chloride IVPB 02/07/20 15:59 270 mls Q4H JERMAINE Administration Labetalol HCl 10 mg 02/05/20 12:25 02/07/20 03:41 Normodyne SLOW IVP 10 mg Q4H PRN Administration BP > 160/90 or HR > 90 Levothyroxine Sodium 75 mcg 02/07/20 06:00 02/07/20 06:17 Synthroid IVP 75 mcg 0600 JERMAINE Administration Lorazepam 0.5 mg 02/04/20 12:51 02/06/20 23:21 Ativan SLOW IVP 0.5 mg Q6H PRN Administration Anxiety/Agitation Methylprednisolone Sodium Succinate 20 mg 02/06/20 09:00 02/07/20 09:44 Solu-Medrol IVP 20 mg DAILY JERMAINE Administration Mometasone Furoate/Formoterol Fumar 2 puff 02/04/20 06:30 02/07/20 07:25 Dulera 200 Mcg/5 Mcg Inhaler INH 2 puff BID-RT JERMAINE Administration Morphine Sulfate 2 mg 02/04/20 13:08 02/05/20 20:02 Morphine SLOW IVP 2 mg Q4H PRN Administration Pain Pantoprazole Sodium 40 mg 02/05/20 09:00 02/07/20 09:44 Protonix IVP 40 mg DAILY JERMAINE Administration - Exam General Appearance: NAD, awake alert Heart - other findings: irregularly irregular. afib with episodes of MAT on EKG Respiratory: CTAB, no wheezes, no rales, no ronchi Gastrointestinal: soft, non-tender, non-distended, normal bowel sounds Extremities: 1+ LE edema Psychiatric: normal affect, normal behavior, A&O x 3 Hosp A/P - Plan #atrial fibrillation w/ RVR #possible nonsustained Vtach -not new; as of 2018 based on cardiology note, used to be on multaq; based on 2019 dc packet, was not on multaq; medications were reconciled with no multaq on record -no significant improvement with amiodarone drip -continue amiodarone drip as per cardiology -history of GI bleed; will hold off anticoag despite CHADSVASC of 4 -manage as per cardiology #aspiration pneumonia #chronic dysphagia -refused PEG in the past -no respiratory culture available -continue vanc, cef and flagyl -covid ruled out -maintain fluids to match I/O -patient chose to eat despite aspiration risk as explained by speech and swallow team and PCCM -chose to not go to hospice at this stage -consult CM for placement -stopped flagyl, continued cefepime as per PCCM #HTN-started home amlodipine; continue metoprolol and labetolol PRN #acute hypernatremia (resolved) -Na 147 -> 143 -dry on exam -continue gentle d5w; stop 02/07 #COPD/Asthma -continue respiratory treatments -continue IV steroid per PCCM DNAR; COVID RULED OUT transfer to telemetry
[2020-02-07] MEDS ORDERED: Metoprolol Tartrate 5 MG/5 ML VIAL ONE (15:27)
[2020-02-07] MEDS ORDERED: Metoprolol Tartrate 5 MG/5 ML VIAL IVP SCH (15:31)
[2020-02-07] MEDS ORDERED: Metoprolol Tartrate 25 MG TAB PO SCH (21:00)
[2020-02-07] MEDS ORDERED: Furosemide 20 MG TAB PO SCH (21:00)
[2020-02-07] MEDS: Enoxaparin Sodium 80 MG/0.8 ML SYRINGE SC SCH (21:30)
[2020-02-07] MEDS: Lorazepam 2 MG/ML VIAL SLOW IVP PRN (23:23)
[2020-02-08] MEDS: Amiodarone 450 MG in Dextrose 5% in Water 250 ML IVPB SCH (00:54)
[2020-02-08] MEDS: Dextrose 5% in Water 1,000 ML IV SCH (00:55)
[2020-02-08 04:07] LABS: #Basophils 0.1 thou/uL (0.0-0.2); #Lymphocytes 2.6 thou/uL (1.20-3.40); #Monocytes 1.8 thou/uL (0.11-0.59); #Neutrophils 13.4 thou/uL (1.40-6.50); %Basophils 0.4 % (0.0-1.0); %Eosinophils 0.1 % (0.0-10.0); %Lymphocytes 14.7 % (21.0-51.0); %Monocytes 10.2 % (0.0-10.0); %Neutrophils 74.6 % (42.0-75.0); Hemoglobin 13.4 g/dL (12.0-16.0); Mean Corpuscular HGB CONC 32.5 g/dL (32.0-36.0); Mean Corpuscular Hemoglobin 29.2 pg (27.0-31.0); Mean Corpuscular Volume 89.7 fL (78.0-98.0); Mean Platelet Volume 8.3 fL (7.4-10.4); Platelet Count 275 thou/uL (130-400); RBC Distribution Width 13.8 % (11.5-14.5); Red Blood Cell (RBC) Count 4.58 mill/uL (4.20-5.40); White Blood Cell (WBC) Count 17.9 thou/uL (4.8-10.8)
[2020-02-08 04:26] LABS: Anion Gap 14 mmol/L (10-20); BUN (Urea Nitrogen) 22 mg/dL (9.8-20.1); Calc. Creatinine Clearance 55 mL/min (70-130); Calcium 9.4 mg/dL (7.8-10.44); Carbon Dioxide 19 mmol/L (23-31); Chloride 111 mmol/L (98-107); Estimated GFR-MDRD 52; Glucose 121 mg/dL (83-110); Magnesium 1.7 mg/dL (1.6-2.6); Potassium 3.7 mmol/L (3.5-5.1); Sodium 140 mmol/L (136-145)
[2020-02-08] MEDS: Levothyroxine 100 MCG SDV IVP SCH (05:48)
[2020-02-08] MEDS ORDERED: Potassium Chloride 20 MEQ TAB PO SCH (07:31)
[2020-02-08] MEDS: Mometasone 200 MCG/Formoterol 5 MCG 120 PUFF INHALER INH SCH ×2 (07:32→18:41)
[2020-02-08] MEDS ORDERED: Magnesium Oxide 400 MG TAB PO SCH (07:45)
--- NOTE | 2020-02-08 08:37 | PDOC.HOSPP ---
- Subjective Encounter Date: 02/08/20 Encounter Time: 07:40 Subjective: no overnight events. this morning, laying comfortably in bed and has no complaints. RR 20s, breathing and satting well on NC. - Objective Vital Signs & Weight: Vital Signs (12 hours) Temp Pulse Resp Pulse Ox 02/08/20 07:35 98.7 F 02/08/20 07:32 100 02/08/20 07:31 92 28 H 100 02/08/20 04:00 98.9 F 02/08/20 02:19 109 H 25 H 02/08/20 00:00 98.3 F 02/07/20 22:05 106 H 26 H 99 Weight Weight 174 lb Most Recent Monitor Data Heart Rate from ECG 100 NIBP 177/103 NIBP BP-Mean 127 Respiration from ECG 35 SpO2 100 I&O: 02/07/20 02/08/20 02/09/20 06:59 06:59 06:59 Intake Total 2468.00 2947.00 Output Total 1975 2475 Balance 493.00 472.00 Result Diagrams: 02/08/20 03:28 02/08/20 03:28 Hospitalist ROS - Review of Systems Constitutional: denies: fever, chills, sweats, weakness, malaise, other Respiratory: denies: cough, dry, shortness of breath, hemoptysis, SOB with excertion, pleuritic pain, sputum, wheezing, other Cardiovascular: denies: chest pain, palpitations, orthopnea, paroxysmal noc. dyspnea, edema, light headedness, other Gastrointestinal: denies: nausea, vomiting, abdominal pain, diarrhea, constipation, melena, hematochezia, other - Medication Medications: Active Medications Generic Name Dose Route Start Last Admin Trade Name Freq PRN Reason Stop Dose Admin Albuterol/Ipratropium 3 ml 02/04/20 18:30 02/08/20 07:31 Duoneb NEB 3 ml [id number] JERMAINE Administration Enoxaparin Sodium 80 mg 02/07/20 21:00 02/07/20 21:30 Lovenox SC 80 mg 0900,2100 JERMAINE Administration Fluoxetine HCl 30 mg 02/04/20 09:00 02/07/20 09:43 Prozac PO 30 mg DAILY JERMAINE Administration Furosemide 20 mg 02/07/20 21:00 02/07/20 21:31 Lasix PO 20 mg BID JERMAINE Administration Cefepime HCl 1 gm/ Sodium 100 mls @ 200 mls/hr 02/04/20 09:00 02/07/20 21:30 Chloride IVPB 100 mls Q12HR JERMAINE Administration Potassium Chloride 40 meq/ 270 mls @ 135 mls/hr 02/04/20 07:48 02/05/20 05:42 Sodium Chloride IVPB 270 mls ASDIR PRN Administration FOR SERUM K+ 2.5 - 3.5 Amiodarone HCl 450 mg/ 259 mls @ 0 mls/hr 02/06/20 09:45 02/08/20 00:54 Dextrose/Water IVPB 259 mls INF JERMAINE Administration Protocol Per Protocol Labetalol HCl 10 mg 02/05/20 12:25 02/07/20 20:04 Normodyne SLOW IVP 10 mg Q4H PRN Administration BP > 160/90 or HR > 90 Levothyroxine Sodium 75 mcg 02/07/20 06:00 02/08/20 05:48 Synthroid IVP 75 mcg 0600 JERMAINE Administration Lorazepam 0.5 mg 02/04/20 12:51 02/07/20 23:23 Ativan SLOW IVP 0.5 mg Q6H PRN Administration Anxiety/Agitation Mometasone Furoate/Formoterol Fumar 2 puff 02/04/20 06:30 02/08/20 07:32 Dulera 200 Mcg/5 Mcg Inhaler INH 2 puff BID-RT JERMAINE Administration Morphine Sulfate 2 mg 02/04/20 13:08 02/05/20 20:02 Morphine SLOW IVP 2 mg Q4H PRN Administration Pain Pantoprazole Sodium 40 mg 02/05/20 09:00 02/07/20 09:44 Protonix IVP 40 mg DAILY JERMAINE Administration - Exam General Appearance: NAD, awake alert Eye: PERRL, anicteric sclera Heart: no murmur, no gallops, no rubs, irregular Respiratory: CTAB, no wheezes, no rales, no ronchi Gastrointestinal: soft, non-tender, non-distended, normal bowel sounds Extremities: 1+ LE edema Extremities - other findings: minimal b/l LE edema Psychiatric: normal affect, normal behavior, A&O x 3 Hosp A/P - Plan #atrial fibrillation w/ RVR #possible nonsustained Vtach -not new; as of 2018 based on cardiology note, used to be on multaq; based on 2019 dc packet, was not on multaq; medications were reconciled with no multaq on record -rate better controlled (02/07); telemetry showing irregularly irregular narrow complex, most likely MAT -continue management as per cardiology -history of GI bleed; will hold off anticoag despite CHADSVASC of 4 #Hypertension -recently started chlorthalidone; change metoprolol to coreg per cardiology #aspiration pneumonia #chronic dysphagia -refused PEG in the past -no respiratory culture available -covid ruled out -maintain fluids to match I/O -patient chose to eat despite aspiration risk as explained by speech and swallow team and PCCM -chose to not go to hospice at this stage -continue cefepime (stop 02/08) -consulted CM for placement #acute hypernatremia (resolved) -Na 147 -> 143 -dry on exam -stopped d5w -encourage PO water #COPD/Asthma -continue respiratory treatments -continue IV steroid per PCCM DNAR; COVID RULED OUT transfer to telemetry
[2020-02-08] MEDS ORDERED: FLUoxetine HCl 20 MG CAP PO SCH (09:00)
--- NOTE | 2020-02-08 09:00 | PRG ---
DATE OF SERVICE: 02/08/2020 SUBJECTIVE: This morning, the patient is awake, alert, responsive, in no respiratory distress. OBJECTIVE: VITAL SIGNS: Heart rate is 120 and irregular, temperature 98, saturations 100% on 2 L, respiratory rate 28, and blood pressure 170/100. CHEST: Decreased breath sounds. No wheezing. CARDIAC: Normal S1, S2. No gallops. ABDOMEN: No masses. LABORATORY DATA: Unremarkable. White count 17,000. ASSESSMENT: Recurrent aspiration, morbid obesity, severe deconditioning, supraventricular tachycardia, not walked for years. PLAN: PO prednisone. PO antibiotics. Disposition as per Cardiology. Pulmonary hsieh, she has improved substantially. Job ID: [id number]
--- NOTE | 2020-02-08 09:53 | PDOC.CPN ---
- Subjective Date: 02/08/20 Time: 10:02 Interval history: The pt seen and examined. No overnight events. No cardiac complaints. - Objective Allergies/Adverse Reactions: Allergies Allergy/AdvReac Type Severity Reaction Status Date / Time amoxicillin Allergy Verified 12/30/19 09:38 amoxicillin trihydrate Allergy Diarrhea Verified 12/30/19 09:38 [From Augmentin] ciprofloxacin [From Cipro] Allergy Rash Verified 12/30/19 09:38 clavulanic acid Allergy Verified 12/30/19 09:38 [From Augmentin] clindamycin Allergy Verified 12/30/19 09:38 erythromycin base Allergy Verified 12/30/19 09:38 [From Erythrocin] erythromycin lactobionate Allergy Verified 12/30/19 09:38 [From Erythrocin] Latex, Natural Rubber Allergy Rash Verified 12/30/19 09:38 metolazone [Metolazone] Allergy Verified 12/30/19 09:38 nalbuphine Allergy Verified 12/30/19 09:38 nalbuphine HCl [From Nubain] Allergy Verified 12/30/19 09:38 oxycodone Allergy Verified 12/30/19 09:38 oxycodone HCl Allergy Rash Verified 12/30/19 09:38 [From OxyContin] potassium clavulanate Allergy Diarrhea Verified 12/30/19 09:38 [From Augmentin] zolpidem Allergy Verified 12/30/19 09:38 tramadol [From Ultram] AdvReac Intermediate Verified 12/30/19 09:38 zolpidem tartrate AdvReac Intermediate "crazy" Verified 12/30/19 09:38 [From Ambien] fentanyl [From Duragesic] AdvReac Mild Anxiety Verified 12/30/19 09:38 Visit Medications: Current Medications Acetaminophen (Tylenol) 650 mg DE Q6H PRN PRN Reason: Headache/Fever or Pain Hydrocodone Bitart/Acetaminophen (Barnard 10/325) 1 tab PO Q4H PRN PRN Reason: Moderate Pain (4-6) Albuterol/Ipratropium (Duoneb) 3 ml NEB [id number] [facility] Last Admin: 02/08/20 07:31 Dose: 3 ml Amlodipine Besylate (Norvasc) 10 mg PO DAILY [facility] Carvedilol (Coreg) 12.5 mg PO BID-[facility] Dextrose/Water (Dextrose 50%) 25 gm SLOW IVP PRN PRN PRN Reason: Hypoglycemia Enoxaparin Sodium (Lovenox) 80 mg SC 0900,2100 [facility] Last Admin: 02/07/20 21:30 Dose: 80 mg Fluoxetine HCl (Prozac) 30 mg PO DAILY [facility] Last Admin: 02/07/20 09:43 Dose: 30 mg Furosemide (Lasix) 20 mg PO BID [facility] Last Admin: 02/07/20 21:31 Dose: 20 mg Glucagon (Glucagon) 1 mg IM PRN PRN PRN Reason: Hypoglycemia Dextrose/Water (D5w) 1,000 mls @ 0 mls/hr IV .Q0M PRN PRN Reason: Hypoglycemia Cefepime HCl 1 gm/ Sodium (Chloride) 100 mls @ 200 mls/hr IVPB Q12HR [facility] Last Admin: 02/07/20 21:30 Dose: 100 mls Potassium Chloride 40 meq/ (Sodium Chloride) 270 mls @ 135 mls/hr IVPB ASDIR PRN PRN Reason: FOR SERUM K+ 2.5 - 3.5 Last Admin: 02/05/20 05:42 Dose: 270 mls Potassium Chloride 40 meq/ (Device) 100 mls @ 50 mls/hr IVPB ASDIR PRN PRN Reason: FOR SERUM K+ 2.5 - 3.5 Magnesium Sulfate 1 gm/ Sodium (Chloride) 102 mls @ 102 mls/hr IV PRN PRN PRN Reason: MAG LEVEL 1.4 - 2.0 Magnesium Sulfate 2 gm/ Device 50 mls @ 50 mls/hr IVPB ASDIR PRN PRN Reason: MAGNESIUM < 1.4 Potassium Phosphate 9 mmol/ (Sodium Chloride) 103 mls @ 25.75 mls/hr IVPB ASDIR PRN PRN Reason: Phosphate 1.0-1.8 Potassium Phosphate 12 mmol/ (Sodium Chloride) 254 mls @ 63.5 mls/hr IV ASDIR PRN PRN Reason: Serum phosphate 0.5-0.9 Potassium Phosphate 15 mmol/ (Sodium Chloride) 255 mls @ 63.75 mls/hr IV ASDIR PRN PRN Reason: Serum Phos < 0.5 Amiodarone HCl 450 mg/ (Dextrose/Water) 259 mls @ 0 mls/hr IVPB INF [facility]; Protocol Last Admin: 02/08/20 00:54 Dose: 259 mls Labetalol HCl (Normodyne) 10 mg SLOW IVP Q4H PRN PRN Reason: BP > 160/90 or HR > 90 Last Admin: 02/07/20 20:04 Dose: 10 mg Levothyroxine Sodium (Synthroid) 75 mcg IVP 0600 [facility] Last Admin: 02/08/20 05:48 Dose: 75 mcg Loperamide HCl (Imodium) 2 mg PO DAILYPRN PRN PRN Reason: Diarrhea/Loose Stools Lorazepam (Ativan) 0.5 mg SLOW IVP Q6H PRN PRN Reason: Anxiety/Agitation Last Admin: 02/07/20 23:23 Dose: 0.5 mg Magnesium Oxide (Magnesium Oxide) 400 mg PO BIDPRN PRN PRN Reason: FOR SERUM MAG 1.4 - 2.0 Magnesium Oxide (Magnesium Oxide) 800 mg PO PRN PRN PRN Reason: FOR SERUM MAG < 1.4 Magnesium Oxide (Magnesium Oxide) 400 mg PO NOW [facility] Stop: 02/08/20 10:00 Miscellaneous Medication (Phos-Nak) 1 pkt PO TIDPRN PRN PRN Reason: FOR PHOS LEVEL 1.0 - 1.8 Miscellaneous Medication (Phos-Nak) 2 pkt PO TIDPRN PRN PRN Reason: FOR PHOS LEVEL 0.5 - 1.0 Mometasone Furoate/Formoterol Fumar (Dulera 200 Mcg/5 Mcg Inhaler) 2 puff INH BID-RT [facility] Last Admin: 02/08/20 07:32 Dose: 2 puff Morphine Sulfate (Morphine) 2 mg SLOW IVP Q4H PRN PRN Reason: Pain Last Admin: 02/05/20 20:02 Dose: 2 mg Multivitamins (Theragran) 1 tab PO DAILY [facility] Ccu Electrolyte (Replacement Protocol) 0 each FS PRN PRN PRN Reason: FOR ELECTROLYTE REPLACEMENT Ondansetron HCl (Zofran Odt) 4 mg PO Q6H PRN PRN Reason: Nausea/Vomiting Ondansetron HCl (Zofran) 8 mg IVP Q6H PRN PRN Reason: Nausea/Vomiting Pantoprazole Sodium (Protonix) 40 mg IVP DAILY [facility] Last Admin: 02/07/20 09:44 Dose: 40 mg Potassium Chloride (Klor-Con 10) 10 meq PO DAILY PRN PRN Reason: Edema Potassium Chloride (K-Dur) 40 meq PO ASDIR PRN PRN Reason: FOR SERUM K+ 2.5 - 3.5 Potassium Chloride (Klor-Con) 40 meq PER TUBE ASDIR PRN PRN Reason: FOR SERUM K+ 2.5-3.5 Potassium Chloride (K-Dur) 40 meq PO NOW [facility] Stop: 02/08/20 10:00 Prednisone (Prednisone) 20 mg PO QAM-WM [facility] Stop: 02/14/20 08:01 Saccharomyces Boulardii (Florastor) 250 mg PO DAILY [facility] Senna/Docusate Sodium (Senokot S) 2 tab PO BIDPRN PRN PRN Reason: Constipation Sterile Water (Bacteriostatic Water) 1 ml FS PRN PRN PRN Reason: RECONSTITUTION Vital Signs & Weight: Vital Signs Temp Pulse Resp Pulse Ox 02/08/20 08:00 99 02/08/20 07:35 98.7 F 02/08/20 07:32 100 02/08/20 07:31 92 28 H 100 02/08/20 04:00 98.9 F 02/08/20 02:19 109 H 25 H 02/08/20 00:00 98.3 F 02/07/20 22:05 106 H 26 H 99 Weight 174 lb - Physical Exam General: alert & oriented x3 HEENT: mucus membranes moist Neck: supple neck Cardiac: regular rate and rhythm, irregularly regular Lungs: decreased breath sounds Extremities: no edema - Labs Result Diagrams: 02/08/20 03:28 02/08/20 03:28 Troponin/CKMB Troponin I 0.021 ng/mL (< 0.028) 02/04/20 13:07 - Telemetry Sinus rhythms and dysrhythmias: sinus rhythm - Assessment/Plan Assessment/Plan: 1. Afib w/ RVR - On Amiodarone drip and BBlocker, which was changed to Coreg due to hx of COPD/Asthma; Not on OAC or ASA due to hx of GI bleed 2. HTN - BBlocker was increased today 3. PNA - on ABX 4. chronic diastolic HF - stable; on Coreg and Lasix; not on BOBBI/ARB due to hx of CKD 5. CKD - stable 6. HLD - 7. Hypothyroidism 8. Anxiety/depression 9. COPD/Asthma 10. Chronic dysphagia - refused PEG in the past MAR reviewed * Echo in 07/2019 with EF 55-60%, grade I dd, mild TR, mild dilated atriums. * DNAR pt. seen and eval. by me. she is feeling better today. She is in NSR at this time. I will switch to po amiodarone. Chest: decr. BS left base. No significant edema. gjm
[2020-02-08] MEDS: Carvedilol 6.25 MG TAB PO SCH ×2 (10:15→16:01)
[2020-02-08] MEDS: Amlodipine 10 MG TAB PO SCH (10:16)
[2020-02-08] MEDS: Cefepime 1 GM in Sodium Chloride 0.9% 100 ML IVPB SCH ×2 (10:16→20:28)
[2020-02-08] MEDS: Enoxaparin Sodium 80 MG/0.8 ML SYRINGE SC SCH ×2 (10:18→20:28)
[2020-02-08] MEDS: FLUoxetine HCl 10 MG CAP PO SCH (10:19)
[2020-02-08] MEDS: Multivit, Therapeutic 1 TAB PO SCH (10:20)
[2020-02-08] MEDS: Pantoprazole 40 MG VIAL IVP SCH (10:20)
[2020-02-08] MEDS: Saccharomyces boulardii 250 MG CAP PO SCH (10:20)
[2020-02-08] MEDS: methylPREDNISolone Sod Succ 40 MG VIAL IVP SCH (10:28)
[2020-02-08] MEDS: HYDROcodone/Acetaminophen 10/325 mg Tablet PO PRN (10:55)
[2020-02-08] MEDS: Amiodarone 200 MG TAB PO SCH ×2 (16:01→20:28)
[2020-02-08] MEDS: Lorazepam 2 MG/ML VIAL SLOW IVP PRN (21:52)
[2020-02-09] MEDS: HYDROcodone/Acetaminophen 10/325 mg Tablet PO PRN ×3 (04:40→20:20)
[2020-02-09] MEDS: Levothyroxine 100 MCG SDV IVP SCH (04:41)
[2020-02-09] MEDS: Mometasone 200 MCG/Formoterol 5 MCG 120 PUFF INHALER INH SCH ×2 (06:56→18:31)
--- NOTE | 2020-02-09 07:43 | PDOC.HOSPP ---
- Subjective Encounter Date: 02/09/20 (f/u aspiration pneumonia) Encounter Time: 07:41 Subjective: No overnight events noted. RN's report loose stools unchanged. Pt has navarrete cath in place. Is taking norco prn for shoulder and/or leg pain prn. Pt denies any problems this morning. - Objective Vital Signs & Weight: Vital Signs (12 hours) Temp Pulse Resp Pulse Ox 02/09/20 06:59 98 02/09/20 06:58 105 H 20 98 02/09/20 06:57 96.6 F L 02/09/20 06:56 105 H 20 98 02/09/20 03:45 100 02/09/20 03:13 99.7 F H 02/08/20 23:39 98.1 F 02/08/20 23:14 100 02/08/20 20:00 100 Weight Weight 174 lb Most Recent Monitor Data Heart Rate from ECG 99 NIBP 136/71 NIBP BP-Mean 92 Respiration from ECG 26 SpO2 99 I&O: 02/08/20 02/09/20 02/10/20 06:59 06:59 06:59 Intake Total 2947.00 1662 Output Total 2475 1175 Balance 472.00 487 Result Diagrams: 02/09/20 07:46 02/09/20 07:47 EKG Reviewed by me: Yes (tele - now sinus with rate in 80's) Hospitalist ROS - Medication Medications: Active Medications Generic Name Dose Route Start Last Admin Trade Name Freq PRN Reason Stop Dose Admin Hydrocodone Bitart/Acetaminophen 1 tab 02/03/20 19:38 02/09/20 04:40 Coolin 10/325 PO 1 tab Q4H PRN Administration Moderate Pain (4-6) Albuterol/Ipratropium 3 ml 02/04/20 18:30 02/09/20 06:58 Duoneb NEB 3 ml [id number] JERMAINE Administration Amiodarone HCl 200 mg 02/08/20 15:00 02/08/20 20:28 Cordarone PO 200 mg TID JERMAINE Administration Amlodipine Besylate 10 mg 02/08/20 09:00 02/08/20 10:16 Norvasc PO 10 mg DAILY JERMAINE Administration Carvedilol 12.5 mg 02/08/20 08:00 02/08/20 16:01 Coreg PO 12.5 mg BID-WM JERMAINE Administration Enoxaparin Sodium 80 mg 02/07/20 21:00 02/08/20 20:28 Lovenox SC 80 mg 0900,2100 JERMAINE Administration Fluoxetine HCl 30 mg 02/04/20 09:00 02/08/20 10:19 Prozac PO 30 mg DAILY JERMAINE Administration Furosemide 20 mg 02/07/20 21:00 02/07/20 21:31 Lasix PO 20 mg BID JERMAINE Administration Cefepime HCl 1 gm/ Sodium 100 mls @ 200 mls/hr 02/04/20 09:00 02/08/20 20:28 Chloride IVPB 100 mls Q12HR JERMAINE Administration Potassium Chloride 40 meq/ 270 mls @ 135 mls/hr 02/04/20 07:48 02/05/20 05:42 Sodium Chloride IVPB 270 mls ASDIR PRN Administration FOR SERUM K+ 2.5 - 3.5 Labetalol HCl 10 mg 02/05/20 12:25 02/07/20 20:04 Normodyne SLOW IVP 10 mg Q4H PRN Administration BP > 160/90 or HR > 90 Levothyroxine Sodium 75 mcg 02/07/20 06:00 02/09/20 04:41 Synthroid IVP 75 mcg 0600 JERMAINE Administration Loperamide HCl 2 mg 02/03/20 19:38 02/08/20 21:52 Imodium PO 2 mg DAILYPRN PRN Administration Diarrhea/Loose Stools Lorazepam 0.5 mg 02/04/20 12:51 02/08/20 21:52 Ativan SLOW IVP 0.5 mg Q6H PRN Administration Anxiety/Agitation Mometasone Furoate/Formoterol Fumar 2 puff 02/04/20 06:30 02/09/20 06:56 Dulera 200 Mcg/5 Mcg Inhaler INH 2 puff BID-RT JERMAINE Administration Morphine Sulfate 2 mg 02/04/20 13:08 02/05/20 20:02 Morphine SLOW IVP 2 mg Q4H PRN Administration Pain Multivitamins 1 tab 02/08/20 09:00 02/08/20 10:20 Theragran PO 1 tab DAILY JERMAINE Administration Ondansetron HCl 8 mg 02/04/20 13:00 02/08/20 19:55 Zofran IVP 8 mg Q6H PRN Administration Nausea/Vomiting Pantoprazole Sodium 40 mg 02/05/20 09:00 02/08/20 10:20 Protonix IVP 40 mg DAILY JERMAINE Administration Saccharomyces Boulardii 250 mg 02/08/20 09:00 02/08/20 10:20 Florastor PO 250 mg DAILY JERMAINE Administration - Exam General Appearance: NAD Heart: RRR, no murmur Respiratory - other findings: bibasilar rales with decreased breath sounds left base Gastrointestinal: soft, non-tender, non-distended Extremities: no cyanosis, no clubbing Extremities - other findings: No pitting edema bilateral Musculoskeletal - other findings: able to move hands/feet, straighten both legs Psychiatric - other findings: tired appearing, easily falls asleep, answers questions without difficulty Hosp A/P (1) Acute and chronic respiratory failure Code(s): J96.20 - ACUTE AND CHR RESP FAILURE, UNSP W HYPOXIA OR HYPERCAPNIA Status: Acute Qualifiers: Respiratory failure complication: hypoxia Qualified Code(s): J96.21 - Acute and chronic respiratory failure with hypoxia (2) Aspiration pneumonia Code(s): J69.0 - PNEUMONITIS DUE TO INHALATION OF FOOD AND VOMIT Status: Acute Qualifiers: Laterality: bilateral (3) Afib Code(s): I48.91 - UNSPECIFIED ATRIAL FIBRILLATION Status: Chronic Qualifiers: Atrial fibrillation type: paroxysmal Qualified Code(s): I48.0 - Paroxysmal atrial fibrillation (4) COPD (chronic obstructive pulmonary disease) Status: Chronic Qualifiers: COPD type: chronic bronchitis (5) Chronic diastolic heart failure Code(s): I50.32 - CHRONIC DIASTOLIC (CONGESTIVE) HEART FAILURE Status: Chronic (6) Dysphagia Code(s): R13.10 - DYSPHAGIA, UNSPECIFIED Status: Chronic (7) Hypertension Code(s): I10 - ESSENTIAL (PRIMARY) HYPERTENSION Status: Chronic Qualifiers: (8) Hypothyroidism Code(s): E03.9 - HYPOTHYROIDISM, UNSPECIFIED Status: Chronic Qualifiers: (9) Obesity (BMI 30-39.9) Code(s): E66.9 - OBESITY, UNSPECIFIED Status: Chronic - Plan appreciate Cards recs - pt on PO amiodarone Appreciate Pulm recs - on PO antibiotics and steroids, currently at less than normal home oxygen amount. Reviewed orders - pt continues to be on cefepime - will change to cefdinir given multiple medication allergies. D/c navarrete cath and monitor UOP Check daily labs continue pt/ot transfer to tele Anticipate close to ready for discharge - will need determination of anticoagulation and meds from cardiology perspective dvt prophy - on full anticoagulation gi prophy - change to PO protonix (currently on IV code status DNAR reviewed plan of care with care team with patient, no questions or further needs at end of eval pt remains at high risk given current condition and co-morbidities
[2020-02-09 08:04] LABS: Hemoglobin 12.2 g/dL (12.0-16.0); Mean Corpuscular HGB CONC 31.8 g/dL (32.0-36.0); Mean Corpuscular Hemoglobin 28.2 pg (27.0-31.0); Mean Corpuscular Volume 88.5 fL (78.0-98.0); Mean Platelet Volume 8.3 fL (7.4-10.4); Platelet Count 225 thou/uL (130-400); RBC Distribution Width 13.4 % (11.5-14.5); Red Blood Cell (RBC) Count 4.34 mill/uL (4.20-5.40); White Blood Cell (WBC) Count 16.9 thou/uL (4.8-10.8)
[2020-02-09] MEDS: Carvedilol 6.25 MG TAB PO SCH ×2 (08:07→16:59)
[2020-02-09] MEDS: predniSONE 20 MG TAB PO SCH (08:08)
[2020-02-09] MEDS: Amiodarone 200 MG TAB PO SCH ×3 (08:08→20:20)
[2020-02-09] MEDS: Amlodipine 10 MG TAB PO SCH (08:09)
[2020-02-09] MEDS: Enoxaparin Sodium 80 MG/0.8 ML SYRINGE SC SCH ×2 (08:09→20:20)
[2020-02-09] MEDS: FLUoxetine HCl 10 MG CAP PO SCH (08:10)
[2020-02-09] MEDS: Multivit, Therapeutic 1 TAB PO SCH (08:10)
[2020-02-09] MEDS: Saccharomyces boulardii 250 MG CAP PO SCH (08:11)
[2020-02-09 08:13] LABS: Anion Gap 12 mmol/L (10-20); BUN (Urea Nitrogen) 27 mg/dL (9.8-20.1); Calc. Creatinine Clearance 50 mL/min (70-130); Calcium 8.7 mg/dL (7.8-10.44); Carbon Dioxide 19 mmol/L (23-31); Chloride 109 mmol/L (98-107); Estimated GFR-MDRD 47; Glucose 96 mg/dL (83-110); Potassium 4.2 mmol/L (3.5-5.1); Sodium 136 mmol/L (136-145)
[2020-02-09] MEDS: Cefdinir 300 MG CAP PO SCH ×2 (08:20→20:20)
[2020-02-09 08:44] LABS: Lymphocytes 14 % (21-51); MDiff Complete? YES; Monocytes 10 % (0-10); Neutrophil 76 % (42-75); Platelet Morphology Comment Appears Adequate
--- NOTE | 2020-02-09 10:58 | PDOC.CPN ---
- Subjective Date: 02/09/20 Time: 10:56 Interval history: No new issues. She remains in sinus. - Review of Systems General: reports: fatigue. denies: fever/chills, weight/appetite/sleep changes , night sweats Respiratory: reports: exercise intolerance. denies: cough, congestion, shortness of breath Cardiovascular: denies: chest pain, palpitation, edema, paroxysmal nocturnal dyspnea, orthopnea Gastrointestinal: denies: nausea, vomiting, diarrhea, constipation, abd pain, GI bleeding Musculoskeletal: denies: pain, tenderness, stiffness, swelling, arthritis/ arthralgias Neurological: denies: numbness, syncope, seizure, weakness - Objective Allergies/Adverse Reactions: Allergies Allergy/AdvReac Type Severity Reaction Status Date / Time amoxicillin Allergy Verified 12/30/19 09:38 amoxicillin trihydrate Allergy Diarrhea Verified 12/30/19 09:38 [From Augmentin] ciprofloxacin [From Cipro] Allergy Rash Verified 12/30/19 09:38 clavulanic acid Allergy Verified 12/30/19 09:38 [From Augmentin] clindamycin Allergy Verified 12/30/19 09:38 erythromycin base Allergy Verified 12/30/19 09:38 [From Erythrocin] erythromycin lactobionate Allergy Verified 12/30/19 09:38 [From Erythrocin] Latex, Natural Rubber Allergy Rash Verified 12/30/19 09:38 metolazone [Metolazone] Allergy Verified 12/30/19 09:38 nalbuphine Allergy Verified 12/30/19 09:38 nalbuphine HCl [From Nubain] Allergy Verified 12/30/19 09:38 oxycodone Allergy Verified 12/30/19 09:38 oxycodone HCl Allergy Rash Verified 12/30/19 09:38 [From OxyContin] potassium clavulanate Allergy Diarrhea Verified 12/30/19 09:38 [From Augmentin] zolpidem Allergy Verified 12/30/19 09:38 tramadol [From Ultram] AdvReac Intermediate Verified 12/30/19 09:38 zolpidem tartrate AdvReac Intermediate "crazy" Verified 12/30/19 09:38 [From Ambien] fentanyl [From Duragesic] AdvReac Mild Anxiety Verified 12/30/19 09:38 Visit Medications: Current Medications Acetaminophen (Tylenol) 650 mg MD Q6H PRN PRN Reason: Headache/Fever or Pain Hydrocodone Bitart/Acetaminophen ([place] 10/325) 1 tab PO Q4H PRN PRN Reason: Moderate Pain (4-6) Last Admin: 02/09/20 04:40 Dose: 1 tab Albuterol/Ipratropium (Duoneb) 3 ml NEB [id number] [facility] Last Admin: 02/09/20 06:58 Dose: 3 ml Amiodarone HCl (Cordarone) 200 mg PO TID [facility] Last Admin: 02/09/20 08:08 Dose: 200 mg Amlodipine Besylate (Norvasc) 10 mg PO DAILY [facility] Last Admin: 02/09/20 08:09 Dose: 10 mg Carvedilol (Coreg) 12.5 mg PO BID-[facility] Last Admin: 02/09/20 08:07 Dose: 12.5 mg Cefdinir (Omnicef) 300 mg PO BID [facility] Last Admin: 02/09/20 08:20 Dose: 300 mg Dextrose/Water (Dextrose 50%) 25 gm SLOW IVP PRN PRN PRN Reason: Hypoglycemia Enoxaparin Sodium (Lovenox) 80 mg SC 0900,2100 [facility] Last Admin: 02/09/20 08:09 Dose: 80 mg Fluoxetine HCl (Prozac) 30 mg PO DAILY [facility] Last Admin: 02/09/20 08:10 Dose: 30 mg Furosemide (Lasix) 20 mg PO BID [facility] Last Admin: 02/07/20 21:31 Dose: 20 mg Glucagon (Glucagon) 1 mg IM PRN PRN PRN Reason: Hypoglycemia Dextrose/Water (D5w) 1,000 mls @ 0 mls/hr IV .Q0M PRN PRN Reason: Hypoglycemia Magnesium Sulfate 1 gm/ Sodium (Chloride) 102 mls @ 102 mls/hr IV PRN PRN PRN Reason: MAG LEVEL 1.4 - 2.0 Magnesium Sulfate 2 gm/ Device 50 mls @ 50 mls/hr IVPB ASDIR PRN PRN Reason: MAGNESIUM < 1.4 Labetalol HCl (Normodyne) 10 mg SLOW IVP Q4H PRN PRN Reason: BP > 160/90 or HR > 90 Last Admin: 02/07/20 20:04 Dose: 10 mg Levothyroxine Sodium (Synthroid) 75 mcg IVP 0600 [facility] Last Admin: 02/09/20 04:41 Dose: 75 mcg Loperamide HCl (Imodium) 2 mg PO DAILYPRN PRN PRN Reason: Diarrhea/Loose Stools Last Admin: 02/08/20 21:52 Dose: 2 mg Lorazepam (Ativan) 0.5 mg SLOW IVP Q6H PRN PRN Reason: Anxiety/Agitation Last Admin: 02/08/20 21:52 Dose: 0.5 mg Magnesium Oxide (Magnesium Oxide) 400 mg PO BIDPRN PRN PRN Reason: FOR SERUM MAG 1.4 - 2.0 Magnesium Oxide (Magnesium Oxide) 800 mg PO PRN PRN PRN Reason: FOR SERUM MAG < 1.4 Mometasone Furoate/Formoterol Fumar (Dulera 200 Mcg/5 Mcg Inhaler) 2 puff INH BID-RT [facility] Last Admin: 02/09/20 06:56 Dose: 2 puff Multivitamins (Theragran) 1 tab PO DAILY [facility] Last Admin: 02/09/20 08:10 Dose: 1 tab Ccu Electrolyte (Replacement Protocol) 0 each FS PRN PRN PRN Reason: FOR ELECTROLYTE REPLACEMENT Ondansetron HCl (Zofran Odt) 4 mg PO Q6H PRN PRN Reason: Nausea/Vomiting Ondansetron HCl (Zofran) 8 mg IVP Q6H PRN PRN Reason: Nausea/Vomiting Last Admin: 02/08/20 19:55 Dose: 8 mg Pantoprazole Sodium (Protonix) 40 mg PO DAILY [facility] Last Admin: 02/09/20 08:20 Dose: 40 mg Prednisone (Prednisone) 20 mg PO QA-[facility] Stop: 02/14/20 08:01 Last Admin: 02/09/20 08:08 Dose: 20 mg Saccharomyces Boulardii (Florastor) 250 mg PO DAILY [facility] Last Admin: 02/09/20 08:11 Dose: 250 mg Senna/Docusate Sodium (Senokot S) 2 tab PO BIDPRN PRN PRN Reason: Constipation Sterile Water (Bacteriostatic Water) 1 ml FS PRN PRN PRN Reason: RECONSTITUTION Vital Signs & Weight: Vital Signs Temp Pulse Pulse Pulse Resp BP BP 02/09/20 08:42 90 81 114/78 02/09/20 08:09 89 138/75 02/09/20 08:07 138/75 02/09/20 08:00 02/09/20 06:59 02/09/20 06:58 105 H 20 02/09/20 06:57 96.6 F L 02/09/20 06:56 105 H 20 02/09/20 03:45 02/09/20 03:13 99.7 F H 02/08/20 23:39 98.1 F 02/08/20 23:14 BP Pulse Ox 02/09/20 08:42 114/65 02/09/20 08:09 02/09/20 08:07 02/09/20 08:00 100 02/09/20 06:59 98 02/09/20 06:58 98 02/09/20 06:57 02/09/20 06:56 98 02/09/20 03:45 100 02/09/20 03:13 02/08/20 23:39 02/08/20 23:14 100 Weight 174 lb - Physical Exam General: no apparent distress HEENT: normocephaly Neck: supple neck Cardiac: regular rate and rhythm Lungs: normal breath sounds Neuro: no lateralizing findings Abdomen: active bowel sounds Extremities: 1+ LE edema Skin: clear - Labs Result Diagrams: 02/09/20 07:46 02/09/20 07:47 Troponin/CKMB Troponin I 0.021 ng/mL (< 0.028) 02/04/20 13:07 - Telemetry Sinus rhythms and dysrhythmias: sinus rhythm - Assessment/Plan Assessment/Plan: 1. Afib w/ RVR back in sinus. 2. HTN 3. Pneumonia 4. Chronic diastolic HF 5. CKD 6. HLD 7. Hypothyroidism 8. Anxiety/depression 9. COPD/Asthma 10. Chronic dysphagia PLAN: - Continue PO amiodarone load. - Continue BB - CV stable.
[2020-02-09 20:10] VITALS: TEMP 98
[2020-02-10 04:40] LABS: Anion Gap 13 mmol/L (10-20); BUN (Urea Nitrogen) 31 mg/dL (9.8-20.1); Calc. Creatinine Clearance 47 mL/min (70-130); Calcium 8.3 mg/dL (7.8-10.44); Carbon Dioxide 20 mmol/L (23-31); Chloride 106 mmol/L (98-107); Estimated GFR-MDRD 43; Glucose 89 mg/dL (83-110); Potassium 3.9 mmol/L (3.5-5.1); Sodium 135 mmol/L (136-145)
[2020-02-10 04:55] LABS: Band 4 % (5-11); Eosinophils 1 % (0-10); Hemoglobin 11.7 g/dL (12.0-16.0); Lymphocytes 21 % (21-51); MDiff Complete? YES; Mean Corpuscular HGB CONC 32.4 g/dL (32.0-36.0); Mean Corpuscular Hemoglobin 28.4 pg (27.0-31.0); Mean Corpuscular Volume 87.6 fL (78.0-98.0); Mean Platelet Volume 8.7 fL (7.4-10.4); Monocytes 12 % (0-10); Neutrophil 62 % (42-75); Platelet Count 240 thou/uL (130-400); Platelet Morphology Comment Appears Adequate; RBC Distribution Width 13.4 % (11.5-14.5); Red Blood Cell (RBC) Count 4.13 mill/uL (4.20-5.40); White Blood Cell (WBC) Count 14.9 thou/uL (4.8-10.8)
[2020-02-10] MEDS: Levothyroxine 100 MCG SDV IVP SCH (05:57)
[2020-02-10] MEDS: Mometasone 200 MCG/Formoterol 5 MCG 120 PUFF INHALER INH SCH (07:49)
--- NOTE | 2020-02-10 08:32 | PDOC.HOSPP ---
- Subjective Encounter Date: 02/10/20 (f/u resp failure) Encounter Time: 08:30 Subjective: Pt without complaints today, states she is ready to go home. She denies any n/v /abd pain, denies any pain or problems with her breathing - Objective Vital Signs & Weight: Vital Signs (12 hours) Temp Pulse Resp 02/10/20 07:03 98.0 F 02/09/20 22:37 76 16 Weight Weight 174 lb Most Recent Monitor Data Heart Rate from ECG 83 NIBP 131/63 NIBP BP-Mean 85 Respiration from ECG 20 SpO2 92 I&O: 02/09/20 02/10/20 02/11/20 06:59 06:59 06:59 Intake Total 1662 947.6 Output Total 1175 280 Balance 487 667.6 Result Diagrams: 02/10/20 03:37 02/10/20 03:37 EKG Reviewed by me: Yes (tele - sinus 70's with intermittent a fib) Hospitalist ROS - Medication Medications: Active Medications Generic Name Dose Route Start Last Admin Trade Name Freq PRN Reason Stop Dose Admin Hydrocodone Bitart/Acetaminophen 1 tab 02/03/20 19:38 02/09/20 20:20 [place] 10/325 PO 1 tab Q4H PRN Administration Moderate Pain (4-6) Albuterol/Ipratropium 3 ml 02/04/20 18:30 02/10/20 07:48 Duoneb NEB Not Given [id number] JERMAIEN Amiodarone HCl 200 mg 02/08/20 15:00 02/09/20 20:20 Cordarone PO 200 mg TID JERMAINE Administration Amlodipine Besylate 10 mg 02/08/20 09:00 02/09/20 08:09 Norvasc PO 10 mg DAILY JERMAINE Administration Carvedilol 12.5 mg 02/08/20 08:00 02/09/20 16:59 Coreg PO 12.5 mg BID-WM JERMAINE Administration Cefdinir 300 mg 02/09/20 09:00 02/09/20 20:20 Omnicef PO 300 mg BID JERAMINE Administration Enoxaparin Sodium 80 mg 02/07/20 21:00 02/09/20 20:20 Lovenox SC 80 mg 0900,2100 JERMAINE Administration Fluoxetine HCl 30 mg 02/04/20 09:00 02/09/20 08:10 Prozac PO 30 mg DAILY JERMAINE Administration Furosemide 20 mg 02/07/20 21:00 02/07/20 21:31 Lasix PO 20 mg BID JERMAINE Administration Labetalol HCl 10 mg 02/05/20 12:25 02/07/20 20:04 Normodyne SLOW IVP 10 mg Q4H PRN Administration BP > 160/90 or HR > 90 Loperamide HCl 2 mg 02/03/20 19:38 02/08/20 21:52 Imodium PO 2 mg DAILYPRN PRN Administration Diarrhea/Loose Stools Lorazepam 0.5 mg 02/04/20 12:51 02/08/20 21:52 Ativan SLOW IVP 0.5 mg Q6H PRN Administration Anxiety/Agitation Mometasone Furoate/Formoterol Fumar 2 puff 02/04/20 06:30 02/10/20 07:49 Dulera 200 Mcg/5 Mcg Inhaler INH Not Given BID-RT JERMAINE Multivitamins 1 tab 02/08/20 09:00 02/09/20 08:10 Theragran PO 1 tab DAILY JERMAINE Administration Ondansetron HCl 8 mg 02/04/20 13:00 02/08/20 19:55 Zofran IVP 8 mg Q6H PRN Administration Nausea/Vomiting Pantoprazole Sodium 40 mg 02/09/20 09:00 02/09/20 08:20 Protonix PO 40 mg DAILY JERMAINE Administration Prednisone 20 mg 02/09/20 08:00 02/09/20 08:08 Prednisone PO 02/14/20 08:01 20 mg QAM-WM JERMAINE Administration Saccharomyces Boulardii 250 mg 02/08/20 09:00 02/09/20 08:11 Florastor PO 250 mg DAILY JERMAINE Administration - Exam General Appearance: NAD Heart: RRR, no murmur Respiratory - other findings: bibasilar rales - faint, good air movement, no audible wheezing/rhonchi Gastrointestinal: soft, non-tender, non-distended, normal bowel sounds Extremities: no cyanosis, no clubbing, no edema Neurological: no focal deficits Hosp A/P (1) Acute and chronic respiratory failure Code(s): J96.20 - ACUTE AND CHR RESP FAILURE, UNSP W HYPOXIA OR HYPERCAPNIA Status: Acute Qualifiers: Respiratory failure complication: hypoxia Qualified Code(s): J96.21 - Acute and chronic respiratory failure with hypoxia (2) Aspiration pneumonia Code(s): J69.0 - PNEUMONITIS DUE TO INHALATION OF FOOD AND VOMIT Status: Acute Qualifiers: Laterality: bilateral (3) Afib Code(s): I48.91 - UNSPECIFIED ATRIAL FIBRILLATION Status: Chronic Qualifiers: Atrial fibrillation type: paroxysmal Qualified Code(s): I48.0 - Paroxysmal atrial fibrillation (4) COPD (chronic obstructive pulmonary disease) Status: Chronic Qualifiers: COPD type: chronic bronchitis (5) Chronic diastolic heart failure Code(s): I50.32 - CHRONIC DIASTOLIC (CONGESTIVE) HEART FAILURE Status: Chronic (6) Dysphagia Code(s): R13.10 - DYSPHAGIA, UNSPECIFIED Status: Chronic (7) Hypertension Code(s): I10 - ESSENTIAL (PRIMARY) HYPERTENSION Status: Chronic Qualifiers: (8) Hypothyroidism Code(s): E03.9 - HYPOTHYROIDISM, UNSPECIFIED Status: Chronic Qualifiers: (9) Obesity (BMI 30-39.9) Code(s): E66.9 - OBESITY, UNSPECIFIED Status: Chronic - Plan Pt appears at her baseline and ready for discharge: 1. Await cardiology clearance and med recs - currently on amiodarone PO and full dose lovenox 2. On PO steroids and antibiotics for breathing - will need plan/taper of each 3. Currently on oxygen - pt reports she has this at home Resume home meds of oxybutynin and sertraline continue pt/ot Anticipate discharge when cleared by Cards dvt prophy - on full anticoagulation gi prophy - on protonix code status DNAR reviewed plan of care with care team with patient, no questions or further needs at end of eval pt remains at high risk given current condition and co-morbidities
[2020-02-10] MEDS: Carvedilol 6.25 MG TAB PO SCH (08:33)
[2020-02-10] MEDS: predniSONE 20 MG TAB PO SCH (08:35)
[2020-02-10] MEDS: Amlodipine 10 MG TAB PO SCH (08:36)
[2020-02-10] MEDS: Cefdinir 300 MG CAP PO SCH (08:36)
[2020-02-10] MEDS: Amiodarone 200 MG TAB PO SCH (08:36)
[2020-02-10] MEDS: Enoxaparin Sodium 80 MG/0.8 ML SYRINGE SC SCH (08:37)
[2020-02-10] MEDS: FLUoxetine HCl 10 MG CAP PO SCH (08:37)
[2020-02-10] MEDS: Multivit, Therapeutic 1 TAB PO SCH (08:38)
[2020-02-10] MEDS: Saccharomyces boulardii 250 MG CAP PO SCH (08:39)
[2020-02-10 08:40] VITALS: BP 115/70
[2020-02-10] MEDS: HYDROcodone/Acetaminophen 10/325 mg Tablet PO PRN (08:41)
[2020-02-10] MEDS ORDERED: Oxybutynin ER 5 MG TAB PO SCH (09:00)
--- NOTE | 2020-02-10 10:54 | PDOC.CPN ---
- Subjective Date: 02/10/20 Time: 10:51 Interval history: No new issues. No angina. SOB at baseline. - Review of Systems General: denies: fever/chills, weight/appetite/sleep changes, night sweats, fatigue Respiratory: denies: cough, congestion, shortness of breath, exercise intolerance Cardiovascular: denies: chest pain, palpitation, edema, paroxysmal nocturnal dyspnea, orthopnea Gastrointestinal: denies: nausea, vomiting, diarrhea, constipation, abd pain, GI bleeding Musculoskeletal: denies: pain, tenderness, stiffness, swelling, arthritis/ arthralgias Neurological: denies: numbness, syncope, seizure, weakness - Objective Allergies/Adverse Reactions: Allergies Allergy/AdvReac Type Severity Reaction Status Date / Time amoxicillin Allergy Verified 12/30/19 09:38 amoxicillin trihydrate Allergy Diarrhea Verified 12/30/19 09:38 [From Augmentin] ciprofloxacin [From Cipro] Allergy Rash Verified 12/30/19 09:38 clavulanic acid Allergy Verified 12/30/19 09:38 [From Augmentin] clindamycin Allergy Verified 12/30/19 09:38 erythromycin base Allergy Verified 12/30/19 09:38 [From Erythrocin] erythromycin lactobionate Allergy Verified 12/30/19 09:38 [From Erythrocin] Latex, Natural Rubber Allergy Rash Verified 12/30/19 09:38 metolazone [Metolazone] Allergy Verified 12/30/19 09:38 nalbuphine Allergy Verified 12/30/19 09:38 nalbuphine HCl [From Nubain] Allergy Verified 12/30/19 09:38 oxycodone Allergy Verified 12/30/19 09:38 oxycodone HCl Allergy Rash Verified 12/30/19 09:38 [From OxyContin] potassium clavulanate Allergy Diarrhea Verified 12/30/19 09:38 [From Augmentin] zolpidem Allergy Verified 12/30/19 09:38 tramadol [From Ultram] AdvReac Intermediate Verified 12/30/19 09:38 zolpidem tartrate AdvReac Intermediate "crazy" Verified 12/30/19 09:38 [From Ambien] fentanyl [From Duragesic] AdvReac Mild Anxiety Verified 12/30/19 09:38 Visit Medications: Current Medications Acetaminophen (Tylenol) 650 mg ID Q6H PRN PRN Reason: Headache/Fever or Pain Hydrocodone Bitart/Acetaminophen ([place] 10/325) 1 tab PO Q4H PRN PRN Reason: Moderate Pain (4-6) Last Admin: 02/10/20 08:41 Dose: 1 tab Albuterol/Ipratropium (Duoneb) 3 ml NEB [id number] [facility] Last Admin: 02/10/20 10:38 Dose: 3 ml Amiodarone HCl (Cordarone) 200 mg PO TID [facility] Last Admin: 02/10/20 08:36 Dose: 200 mg Amlodipine Besylate (Norvasc) 10 mg PO DAILY [facility] Last Admin: 02/10/20 08:36 Dose: 10 mg Carvedilol (Coreg) 12.5 mg PO BID-[facility] Last Admin: 02/10/20 08:33 Dose: 12.5 mg Cefdinir (Omnicef) 300 mg PO BID [facility] Last Admin: 02/10/20 08:36 Dose: 300 mg Dextrose/Water (Dextrose 50%) 25 gm SLOW IVP PRN PRN PRN Reason: Hypoglycemia Enoxaparin Sodium (Lovenox) 80 mg SC 0900,2100 [facility] Last Admin: 02/10/20 08:37 Dose: 80 mg Fluoxetine HCl (Prozac) 30 mg PO DAILY [facility] Last Admin: 02/10/20 08:37 Dose: 30 mg Furosemide (Lasix) 20 mg PO BID [facility] Last Admin: 02/07/20 21:31 Dose: 20 mg Glucagon (Glucagon) 1 mg IM PRN PRN PRN Reason: Hypoglycemia Dextrose/Water (D5w) 1,000 mls @ 0 mls/hr IV .Q0M PRN PRN Reason: Hypoglycemia Magnesium Sulfate 1 gm/ Sodium (Chloride) 102 mls @ 102 mls/hr IV PRN PRN PRN Reason: MAG LEVEL 1.4 - 2.0 Magnesium Sulfate 2 gm/ Device 50 mls @ 50 mls/hr IVPB ASDIR PRN PRN Reason: MAGNESIUM < 1.4 Labetalol HCl (Normodyne) 10 mg SLOW IVP Q4H PRN PRN Reason: BP > 160/90 or HR > 90 Last Admin: 02/07/20 20:04 Dose: 10 mg Levothyroxine Sodium (Synthroid) 125 mcg PO 0600 [facility] Loperamide HCl (Imodium) 2 mg PO DAILYPRN PRN PRN Reason: Diarrhea/Loose Stools Last Admin: 02/08/20 21:52 Dose: 2 mg Lorazepam (Ativan) 0.5 mg SLOW IVP Q6H PRN PRN Reason: Anxiety/Agitation Last Admin: 02/08/20 21:52 Dose: 0.5 mg Magnesium Oxide (Magnesium Oxide) 400 mg PO BIDPRN PRN PRN Reason: FOR SERUM MAG 1.4 - 2.0 Magnesium Oxide (Magnesium Oxide) 800 mg PO PRN PRN PRN Reason: FOR SERUM MAG < 1.4 Mometasone Furoate/Formoterol Fumar (Dulera 200 Mcg/5 Mcg Inhaler) 2 puff INH BID-RT [facility] Last Admin: 02/10/20 07:49 Dose: Not Given Multivitamins (Theragran) 1 tab PO DAILY [facility] Last Admin: 02/10/20 08:38 Dose: 1 tab Ccu Electrolyte (Replacement Protocol) 0 each FS PRN PRN PRN Reason: FOR ELECTROLYTE REPLACEMENT Ondansetron HCl (Zofran Odt) 4 mg PO Q6H PRN PRN Reason: Nausea/Vomiting Ondansetron HCl (Zofran) 8 mg IVP Q6H PRN PRN Reason: Nausea/Vomiting Last Admin: 02/08/20 19:55 Dose: 8 mg Oxybutynin Chloride (Ditropan Xl) 10 mg PO DAILY [facility] Last Admin: 02/10/20 08:38 Dose: 10 mg Pantoprazole Sodium (Protonix) 40 mg PO DAILY [facility] Last Admin: 02/10/20 08:39 Dose: 40 mg Prednisone (Prednisone) 20 mg PO [facility] Stop: 02/14/20 08:01 Last Admin: 02/10/20 08:35 Dose: 20 mg Saccharomyces Boulardii (Florastor) 250 mg PO DAILY [facility] Last Admin: 02/10/20 08:39 Dose: 250 mg Senna/Docusate Sodium (Senokot S) 2 tab PO BIDPRN PRN PRN Reason: Constipation Sertraline HCl (Zoloft) 50 mg PO DAILY [facility] Last Admin: 02/10/20 08:41 Dose: 50 mg Sterile Water (Bacteriostatic Water) 1 ml FS PRN PRN PRN Reason: RECONSTITUTION Vital Signs & Weight: Vital Signs Temp Pulse Resp BP Pulse Ox 02/10/20 10:38 84 21 H 95 02/10/20 08:36 100 115/70 02/10/20 08:33 115/70 02/10/20 08:00 93 L 02/10/20 07:03 98.0 F Weight 174 lb - Physical Exam General: alert & oriented x3 HEENT: mucus membranes moist Neck: supple neck Cardiac: regular rate and rhythm Lungs: clear to auscultation Neuro: grossly intact Abdomen: active bowel sounds Extremities: no edema Skin: clear Musculoskeletal: no pain - Labs Result Diagrams: 02/10/20 03:37 02/10/20 03:37 Troponin/CKMB Troponin I 0.021 ng/mL (< 0.028) 02/04/20 13:07 - Telemetry Sinus rhythms and dysrhythmias: sinus rhythm - Assessment/Plan Assessment/Plan: 1. Afib w/ RVR back in sinus. 2. HTN 3. Pneumonia 4. Chronic diastolic HF 5. CKD 6. HLD 7. Hypothyroidism 8. Anxiety/depression 9. COPD/Asthma 10. Chronic dysphagia PLAN: - Continue PO amiodarone at 200 mg TID for 7 more days then 200 mg daily. - Continue BB at current dose. - She has tolerate dfull anticoagulation with SQ lovenox during this admission. 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 Would recommend [id number] with Eliquis 2.5 mg BID for stroke prophylaxis. - CV stable. - May discharge any time form cardiac perspective.
--- NOTE | 2020-02-10 16:26 | PDOC.EVN ---
Event Note - Event Note Event Note: Called by patient's daughter - carvedilol rx was dispensed as 6.25 mg - take 2 tabs BID - only dispensed as 60 tabs, and current rx will only last 15 days. Pt was discharged with plan for 12.5 mg carvedilol BID. I called [facility] [address] and left voice mail order on their secure system for carvedilol 12.5 mg - 1 tab BID #60. No further needs at end of call with Tonie Santizo.
[2020-02-10] MEDS ORDERED: Apixaban 2.5 MG TAB PO SCH (21:00)
--- NOTE | 2020-02-11 01:38 | DIS ---
DATE OF ADMISSION: 02/03/2020 DATE OF DISCHARGE: 02/10/2020 CONSULTANTS: 1. Dr. Hook of Pulmonology. 2. Dr. Lino of Cardiology. MEDICATIONS: Reconciled at discharge. New medications; 1. Amiodarone 200 mg t.i.d. x1 week and then daily. 2. Eliquis 2.5 mg b.i.d. 3. Carvedilol 12.5 mg p.o. b.i.d. 4. Cefdinir 300 mg one dose tonight. 5. DuoNeb q.6 hours scheduled. 6. Dulera 200-5 two inhalations b.i.d. - family advised that they can substitute the inhaled steroid they have at home - which they think is budesonide. 7. Prednisone 20 mg once daily, starting tomorrow for 4 days. Medication discontinued, metoprolol tartrate as this was replaced by carvedilol. Medications to resume; 1. Alprazolam 0.25 mg p.o. at bedtime. 2. Amlodipine 10 mg daily. 3. Vitamin C 500 mg daily. 4. Atorvastatin 10 mg at bedtime. 5. Vitamin D3 200 units daily. 6. Prozac 20 mg daily. 7. Furosemide 20 mg b.i.d. 8. [place] 10-325 every 4 hours as needed. 9. Levothyroxine 125 mcg daily. 10. Imodium 2 mg daily as needed for diarrhea. 11. Multivitamin daily. 12. Oxybutynin extended release 24 hours 10 mg daily. 13. Pantoprazole 40 mg daily. 14. Potassium chloride 10 mEq daily as needed when taking Lasix. 15. Florastor 250 mg daily. 16. Sertraline 50 mg daily. 17. Benadryl 25 mg one or two capsules at night as needed. 18. Mucinex 600 mg b.i.d. as needed. 19. Hydroxyzine 25 mg as needed for itching. FINAL DIAGNOSES: 1. Sepsis secondary to aspiration pneumonia. 2. Atrial fibrillation with rapid ventricular response, now rate controlled. 3. Chronic diastolic heart failure. 4. Acute on chronic respiratory failure secondary to chronic obstructive pulmonary disease/asthma exacerbation. 5. Chronic dysphagia. SECONDARY DIAGNOSES: 1. Deconditioning. 2. Hypertension. 3. Dyslipidemia. 4. Hypothyroidism. 5. Chronic kidney disease stage. 6. Chronic anemia. HISTORY OF PRESENT ILLNESS: Ms. Kuciemba is an 80-year-old female with above medical problems, who presented to the emergency room with complaints of drowsiness and fever. The patient was found by her , EMS was contacted and she was in respiratory distress with a temperature of 101. She was admitted for further evaluation and treatment. HOSPITAL COURSE: The patient has been treated by Pulmonology and Cardiology to manage her significant comorbidities. She has undergone diuresis, had her medications adjusted, was placed on amiodarone drip for AFib with RVR, and continues to have paroxysmal AFib that is rate controlled now. From a respiratory standpoint, she was treated with steroids, and is on day #7 of antibiotics. She has had significant improvement in her symptoms and is now either on room air or requiring only 1 L nasal cannula. Given the significant improvement, the patient does have a nebulizer machine and oxygen at home that she can use, she does meet criteria for discharge. She will need to follow up with Pulmonology and Cardiology in the outpatient setting, enough medications have been ordered for 1 month. PHYSICAL EXAMINATION: VITAL SIGNS: On day of discharge, please see note on chart for today. LABORATORY DATA: Muñoz findings and test results. CBC today 14.9, 11.7, 36.2, and 240. Of note, on admission, white blood cell count was 17.5, with a peak of 21.1 on 02/03. ABG on 02/02; 7.44, 34.4, and 53.9. Renal panel today; 135, 3.9, 106, 20, 31, 1.2, and 89. LFTs on 02/02; T bilirubin 0.7, AST 29, ALT 27, alkaline phosphatase 140, total protein 8.6, and albumin 4.7. Urinalysis present protein, otherwise negative. COVID-19 negative. Urine Legionella and urine strep both negative. Respiratory virus panel negative. Blood cultures x2 and urine culture negative. Chest x-ray on 02/03, shows patchy parenchymal densities at each lung base, which may represent bibasilar pneumonia versus aspiration pneumonitis and mild cardiomegaly. CT angiogram on 02/02, shows no central or segmental PE, findings of aspiration pneumonitis, persistent enlarged mediastinal lymphadenopathy. Brain CT is negative for an acute process. Chest x-ray on 04/26, cardiomegaly with more chronic appearing lung change, no definite confluent infiltrates. There are some interstitial changes at the bases, which could be on the basis of scar versus atelectasis. DIET: Heart healthy, nectar thick liquids, pureed texture, small sips by cup. CODE STATUS: DNAR. DISCHARGE DISPOSITION: Home. I reviewed with this patient this hospitalization, the importance of followup, and seek care precautions. I also discussed the same with her and daughter Tonie by phone. Total time coordinating discharge is 45 minutes. Job ID: [id number] MTDD
[2020-02-11] MEDS ORDERED: Levothyroxine Sodium 125 MCG TAB PO SCH (06:00)
== END 2020-02-10 13:40 | disposition home health service (06) | DRG 871 ==
LOC: ERS 10:17 → CCU 15:14 → IMCU/EMU 02-04 19:00
PROVIDERS: ADMIT Internal Medicine; ATTEND Internal Medicine
PROC: 8E0ZXY6 Isolation (ICD-10-PCS; principal; 2020-02-03)
DX: A41.9 Sepsis, unspecified organism (principal); J69.0 Pneumonitis due to inhalation of food and vomit; J96.21 Acute and chronic respiratory failure with hypoxia; J96.22 Acute and chronic respiratory failure with hypercapnia; R65.21 Severe sepsis with septic shock; G93.41 Metabolic encephalopathy; I50.32 Chronic diastolic (congestive) heart failure; J44.1 Chronic obstructive pulmonary disease with (acute) exacerbation; J45.901 Unspecified asthma with (acute) exacerbation; I13.0 Hypertensive heart and chronic kidney disease with heart failure and stage 1 through stage 4 chronic kidney disease, or unspecified chronic kidney disease; E66.2 Morbid (severe) obesity with alveolar hypoventilation; E87.0 Hyperosmolality and hypernatremia; I47.1 Supraventricular tachycardia; Z66 Do not resuscitate; Z20.828 Contact with and (suspected) exposure to other viral communicable diseases; I48.0 Paroxysmal atrial fibrillation; E78.5 Hyperlipidemia, unspecified; E03.9 Hypothyroidism, unspecified; D63.1 Anemia in chronic kidney disease; N18.3 Chronic kidney disease, stage 3 (moderate); R13.12 Dysphagia, oropharyngeal phase; F41.9 Anxiety disorder, unspecified; F32.9 Major depressive disorder, single episode, unspecified; I34.0 Nonrheumatic mitral (valve) insufficiency; Z99.81 Dependence on supplemental oxygen; Z90.49 Acquired absence of other specified parts of digestive tract; Z90.710 Acquired absence of both cervix and uterus; Z88.1 Allergy status to other antibiotic agents; Z88.0 Allergy status to penicillin; Z88.2 Allergy status to sulfonamides; Z88.8 Allergy status to other drugs, medicaments and biological substances; Z68.31 Body mass index [BMI] 31.0-31.9, adult; Z79.899 Other long term (current) drug therapy; Z79.890 Hormone replacement therapy; Z74.01 Bed confinement status
CPT/HCPCS: 36415; 36416; 51701; 70450; 71045; 71275; 80048; 80053; 80202; 81003; 81015; 82805; 83605; 83735; 83880; 84484; 85025; 87040; 87086; 87449; 87633; 87635; 87899; 93005; 93010; 94640; 94664; 94760; 96365; 96367; A4353; C9113; J0282; J0692; J0696; J1650; J1956; J2060; J2270; J2405; J2543; J2920; J2930; J3370; J3480; J3490; J7050; J7070; J7512; J7620; Q9967; U0002

== ENCOUNTER 2020-02-16 11:09 | Inpatient (IN) | payer MEDICARE, OTHER ==
[2020-02-16] MEDS ORDERED: Albuterol 200 PUFF (6.7GM INHALER) ONE (11:31)
[2020-02-16] MEDS ORDERED: Cefepime 2 GM VIAL ONE (11:37)
[2020-02-16 12:04] LABS: ALT (SGPT) 20 U/L (8-55); AST (SGOT) 21 U/L (5-34); Albumin 3.6 g/dL (3.4-4.8); Alkaline Phosphatase 92 U/L (40-110); Anion Gap 18 mmol/L (10-20); BUN (Urea Nitrogen) 56 mg/dL (9.8-20.1); Bilirubin, Total 0.5 mg/dL (0.2-1.2); Calc. Creatinine Clearance 0 mL/min (70-130); Calcium 8.5 mg/dL (7.8-10.44); Carbon Dioxide 17 mmol/L (23-31); Chloride 92 mmol/L (98-107); Estimated GFR-MDRD 19; Glucose 78 mg/dL (83-110); Potassium 6.1 mmol/L (3.5-5.1); Protein, Total 6.6 g/dL (6.0-8.3); Sodium 121 mmol/L (136-145)
[2020-02-16 12:32] LABS: Hemoglobin 11.4 g/dL (12.0-16.0); Mean Corpuscular HGB CONC 32.7 g/dL (32.0-36.0); Mean Corpuscular Hemoglobin 28.5 pg (27.0-31.0); Mean Corpuscular Volume 87.3 fL (78.0-98.0); Mean Platelet Volume 7.8 fL (7.4-10.4); Platelet Count 395 thou/uL (130-400); Red Blood Cell (RBC) Count 4.01 mill/uL (4.20-5.40); White Blood Cell (WBC) Count 20.8 thou/uL (4.8-10.8)
[2020-02-16 12:36] LABS: Band 3 % (5-11); Eosinophils 2 % (0-10); Lymphocytes 11 % (21-51); MDiff Complete? YES; Monocytes 5 % (0-10); Neutrophil 78 % (42-75); Ovalocytes SLIGHT = 2-5 cells (100X) (0-1/hpf); Platelet Morphology Comment Appears Adequate; Reactive Lymphocytes 1 % (0-10); Tear Drops SLIGHT = 2-5 cells (100X) (0-1/hpf)
--- NOTE | 2020-02-16 12:39 | RAD ---
EXAM: XR Chest 1 View Portable PROVIDED CLINICAL HISTORY: None COMPARISON: 02/04/2020 FINDINGS: The lungs are hypoinflated with bibasilar pleural-parenchymal opacity. Heart and mediastinal silhouet te similar to prior. Vascular calcification. No evidence for pneumothorax. Prominent left glenohumeral degenerative change. IMPRESSION: Bibasilar, left greater than right pleural-parenchymal opacity.
[2020-02-16] MEDS ORDERED: Dextrose 50% Abboject 50 ML SYRINGE ONE ×2 (12:40→12:43)
[2020-02-16] MEDS ORDERED: Calcium Chloride 1 GM/10 ML Abboject SYRINGE ONE (12:40)
[2020-02-16] MEDS ORDERED: Insulin Regular 300 UNITS/3 ML VIAL ONE (12:40)
[2020-02-16] MEDS ORDERED: Sodium Bicarb 50 MEQ/50 ML Abboject 8.4% SYRINGE ONE (12:41)
[2020-02-16 13:04] LABS: Bilirubin Negative (Negative); Blood, Urine Negative (Negative); Clarity Clear (Clear); Glucose, Urine (Dipstick) Normal (Negative); Leukocyte Negative Leu/uL (Negative); Nitrite Negative (Negative); Protein, Urine (Dipstick) Negative (Neg-Trace); Urobilinogen Normal mg/dL (Less than 2)
[2020-02-16 15:19] LABS: Troponin I 0.015 ng/mL (< 0.028)
[2020-02-16] MEDS ORDERED: Ondansetron PF 4 MG/2 ML Vial IVP PRN ×2 (15:23→15:44)
[2020-02-16] MEDS ORDERED: Ondansetron ODT 4 MG TAB SL PRN (15:23)
[2020-02-16] MEDS ORDERED: Acetaminophen 325 MG TAB PO PRN (15:23)
[2020-02-16] MEDS ORDERED: cloNIDine 0.1 MG TAB PO PRN (15:44)
[2020-02-16] MEDS ORDERED: hydrALAZINE 20 MG/ML VIAL SLOW IVP PRN (15:44)
[2020-02-16] MEDS ORDERED: Vancomycin 1 GM in Premix Bag 1 BAG IVPB SCH (16:00)
[2020-02-16] MEDS ORDERED: Vancomycin 1.5 GRAM/300 ML BAG 1.5 GM in Premix Bag 1 BAG IVPB SCH ×2 (16:00)
[2020-02-16] MEDS: Sodium Chloride 0.9% 1,000 ML IV SCH ×2 (16:58→23:53)
--- NOTE | 2020-02-16 21:20 | HP ---
PRIMARY CARE PHYSICIAN: Does not have a primary care physician. CHIEF COMPLAINT: Shortness of breath and obtunded. HISTORY OF PRESENT ILLNESS: Ms. Santizo is a very pleasant 80-year-old female, who has a history of chronic respiratory failure with COPD as well as chronic kidney disease stage 3 and atrial fibrillation. She was brought in by family due to shortness of breath as well as fever and chills. Unfortunately, the patient is obtunded and I cannot get any additional history. I tried calling the patient's , but I got the voicemail. She was recently admitted to our facility due to respiratory failure and pneumonia and has been discharged home. Other than that, I am not able to get any additional history. She is obtunded. She will answer a few questions with a very soft voice, but other times will just kind of stare off with her eyes rolled back and appears to be too weak to respond. REVIEW OF SYSTEMS: Unobtainable due to the patient being obtunded. PAST MEDICAL HISTORY: Taken from her previous history and physical by Dr. Ovalle on February 02, and includes chronic respiratory failure due to COPD, on home oxygen; chronic atrial fib fibrillation; chronic kidney disease stage 3; severe debility; and practically bed-bound status. PAST SURGICAL HISTORY: She has had a cholecystectomy, hysterectomy, and back surgery. SOCIAL HISTORY: She lives at home with her . She is a nonsmoker and nondrinker. FAMILY HISTORY: Significant for coronary artery disease. ALLERGIES: INCLUDE AMOXICILLIN, METOLAZONE, CIPRO, CLINDAMYCIN, SULFA, BACTRIM, AND AMBIEN. CURRENT MEDICATIONS: Include Synthroid 125 mcg daily, gabapentin 800 mg twice a day, Klor-Con 10 mEq daily, [place] 10/325 as needed, atorvastatin 10 mg daily, alprazolam 0.25 mg daily, oxybutynin 10 mg daily, furosemide 20 mg daily, hydroxyzine 25 mg as needed, budesonide inhaled daily, amiodarone 200 mg once a day, Eliquis 2.5 mg twice a day, carvedilol 6.25 mg twice daily. PHYSICAL EXAMINATION: GENERAL: She is obtunded. She appears extremely weak. VITAL SIGNS: Blood pressure is 119/78, heart rate 97, respiratory rate of 20, temperature is 100.5, and O2 saturation is 95% on 3 L. HEENT: Pupils are equal, round, and reactive. Extraocular muscles are intact. NECK: There is no jugular venous distention. No bruits. LUNGS: She has rales throughout. CARDIOVASCULAR: She has a normal S1, S2. There is no S3 or S4. No murmurs, clicks, or rubs. ABDOMEN: Obese. It is soft, nontender, and nondistended. Positive for bowel sounds. No rebound or guarding. EXTREMITIES: She has massive lower extremity edema. It is 2 to 3+. There is no erythema, no exudates. NEUROLOGIC: She is moving all extremities, but again she is obtunded. SKIN AND INTEGUMENT: No skin changes. No rash. LABORATORY DATA: White blood cell count is 20.8, hemoglobin 11.4, hematocrit is 35, platelet count is 395. Sodium 121, potassium 6.5, chloride is 92, CO2 of 17, BUN of 56, creatinine 2.47, glucose is 78. Urinalysis is negative. She had a chest x-ray showing worsening pulmonary infiltrates with the left greater than the right and this is bibasilar. ASSESSMENT: 1. This is a very pleasant 80-year-old female, who was brought back by family due to recurrence of pneumonia symptoms as well as cough and congestion. She in minimal has hospital-acquired pneumonia with sepsis. She could potentially have COVID infection as well. She is a DNR according to her paperwork in her last hospitalization. She will be admitted to the IMCU, placed on broad-spectrum antibiotics with avoidance of medications that she is allergic to. She will be placed on droplet isolation. 2. Acute kidney injury. She will be given fluid resuscitation and depending on the response, she may require Nephrology consultation. 3. Hyperkalemia, likely the result of the acute kidney injury. This has been treated in the ER with calcium chloride as well as glucose and insulin and IV bicarbonate. 4. Acute on chronic respiratory failure with chronic obstructive pulmonary disease. We will consult Pulmonology to help with her management as well. 5. Chronic anticoagulation. Continue Eliquis if she is able, otherwise this may need to be transitioned to Lovenox. 6. She will be placed on GI prophylaxis. 7. The patient's condition is guarded. I have seen Ms. Santizo off and on through the years and this is the sickest I have ever seen her and with her other comorbid conditions, it is concerning that she could potentially not make it through the night, let alone, there is a potential that she could not survive this hospital stay. I tried to call the to make him aware of this and I will continue to try. Job ID: [id number]
[2020-02-16] MEDS: Cefepime 1 GM in Sodium Chloride 0.9% 100 ML IVPB SCH (23:53)
[2020-02-16] MEDS ORDERED: Cefepime 2 GM in Sodium Chloride 0.9% 100 ML IVPB SCH (23:59)
[2020-02-17 01:17] VITALS: BMI 34.7
[2020-02-17 04:08] LABS: #Eosinphils 0.2 thou/uL (0.0-0.7); #Lymphocytes 1.2 thou/uL (1.20-3.40); #Monocytes 1.1 thou/uL (0.11-0.59); %Basophils 0.2 % (0.0-1.0); %Eosinophils 1.4 % (0.0-10.0); %Lymphocytes 8.3 % (21.0-51.0); %Monocytes 7.6 % (0.0-10.0); %Neutrophils 82.6 % (42.0-75.0); Hemoglobin 10.8 g/dL (12.0-16.0); Mean Corpuscular HGB CONC 32.8 g/dL (32.0-36.0); Mean Corpuscular Volume 88.4 fL (78.0-98.0); Mean Platelet Volume 7.3 fL (7.4-10.4); Platelet Count 385 thou/uL (130-400); RBC Distribution Width 14.2 % (11.5-14.5); Red Blood Cell (RBC) Count 3.74 mill/uL (4.20-5.40); White Blood Cell (WBC) Count 14.5 thou/uL (4.8-10.8)
[2020-02-17 04:19] LABS: Anion Gap 15 mmol/L (10-20); BUN (Urea Nitrogen) 48 mg/dL (9.8-20.1); Calc. Creatinine Clearance 35 mL/min (70-130); Carbon Dioxide 20 mmol/L (23-31); Chloride 101 mmol/L (98-107); Estimated GFR-MDRD 25; Glucose 79 mg/dL (83-110); Potassium 4.9 mmol/L (3.5-5.1); Sodium 131 mmol/L (136-145)
[2020-02-17] MEDS ORDERED: Prevnar 13-Val Conj/PF 0.5 ML SYRINGE IM ONE (09:00)
[2020-02-17] MEDS: Famotidine/PF 20 mg/2ml Vial SLOW IVP SCH (09:17)
--- NOTE | 2020-02-17 11:49 | PDOC.HOSPP ---
- Subjective Encounter Date: 02/17/20 Encounter Time: 11:47 Subjective: Ms. Santizo was seen today in follow-up of respiratory failure. She appears at her baseline. She does not have any new complaints. - Objective Vital Signs & Weight: Vital Signs (12 hours) Temp Pulse Ox 02/17/20 08:00 97.7 F 98 02/17/20 04:00 98.7 F 02/17/20 00:00 98.1 F Weight Weight 208 lb 15.971 oz Most Recent Monitor Data Heart Rate from ECG 78 NIBP 162/78 NIBP BP-Mean 106 Respiration from ECG 23 SpO2 96 I&O: 02/16/20 02/17/20 02/18/20 06:59 06:59 06:59 Intake Total 1350 Output Total 2451 600 Balance -1101 -600 Result Diagrams: 02/17/20 03:30 02/17/20 03:30 Additional Labs: Accuchecks 02/16/20 02/16/20 14:40 13:51 POC Glucose 97 172 H Hospitalist ROS - Medication Medications: Active Medications Generic Name Dose Route Start Last Admin Trade Name Ferq PRN Reason Stop Dose Admin Famotidine 20 mg 02/17/20 09:00 02/17/20 09:17 Pepcid SLOW IVP 20 mg DAILY JERMAINE Administration Cefepime HCl 1 gm/ Sodium 100 mls @ 200 mls/hr 02/16/20 23:59 02/16/20 23:53 Chloride IVPB 100 mls 1200,2359 JERMAINE Administration - Exam Eye: PERRL ENT: normocephalic atraumatic Heart: RRR, no murmur, no gallops, no rubs, normal peripheral pulses Respiratory: rales, rhonchi (+ bilateral rhonchi and upper airway noise) Gastrointestinal: soft, non-tender, non-distended, normal bowel sounds Extremities: 2+ LE edema Hosp A/P (1) Acute and chronic respiratory failure Code(s): J96.20 - ACUTE AND CHR RESP FAILURE, UNSP W HYPOXIA OR HYPERCAPNIA Status: Acute Qualifiers: Respiratory failure complication: hypoxia Qualified Code(s): J96.21 - Acute and chronic respiratory failure with hypoxia (2) PNA (pneumonia) Code(s): J18.9 - PNEUMONIA, UNSPECIFIED ORGANISM Status: Acute Qualifiers: Pneumonia type: aspiration pneumonia (3) COPD (chronic obstructive pulmonary disease) Status: Chronic Qualifiers: COPD type: chronic bronchitis (4) Chronic diastolic heart failure Code(s): I50.32 - CHRONIC DIASTOLIC (CONGESTIVE) HEART FAILURE Status: Chronic (5) Hypertension Code(s): I10 - ESSENTIAL (PRIMARY) HYPERTENSION Status: Chronic Qualifiers: (6) Hyponatremia Code(s): E87.1 - HYPO-OSMOLALITY AND HYPONATREMIA Status: Chronic (7) Hypothyroidism Code(s): E03.9 - HYPOTHYROIDISM, UNSPECIFIED Status: Chronic Qualifiers: (8) Acute kidney injury Code(s): N17.9 - ACUTE KIDNEY FAILURE, UNSPECIFIED Status: Acute - Plan * Acute on chronic respiratory failure- continue treatment for pneumonia. * She is stable for transition out of the ICU * COPD- stable * Can ad Neb treatments if the COVID screen returns negative * Acute Kidney injury- improved * Hyponatremia- improved
[2020-02-17] MEDS: Cefepime 1 GM in Sodium Chloride 0.9% 100 ML IVPB SCH ×2 (14:32→23:49)
[2020-02-17] MEDS ORDERED: Vancomycin 1 GM in Premix Bag 1 BAG IVPB SCH (18:30)
[2020-02-17] MEDS: methylPREDNISolone Sod Succ 40 MG VIAL IVP SCH ×2 (18:43→23:49)
[2020-02-17] MEDS: Ipratropium/Albuterol Sulfate 4 GM AER IH SCH (18:43)
[2020-02-17 19:19] LABS: Vancomycin, Random 14.9 ug/mL (See Comment)
--- NOTE | 2020-02-17 19:19 | CON ---
DATE OF CONSULTATION: 02/17/2020 CONSULTING PHYSICIAN: Neal Muniz MD REASON FOR CONSULTATION: Patient is in the CCU for COVID rule out workup. HISTORY OF PRESENT ILLNESS: This is an 80-year-old female, with fairly extensive COPD who is followed by Dr. Hook. She came to the ER last night with shortness of breath and was apparently obtunded. Right now, she is awake and alert and is in no distress. Says her breathing is at baseline. She has been put in rule out COVID status. PAST MEDICAL HISTORY: 1. COPD. 2. Chronic atrial fibrillation. 3. Chronic kidney disease. 4. Debilitation. PAST SURGICAL HISTORY: 1. Cholecystectomy. 2. Hysterectomy. 3. Back surgery. SOCIAL HISTORY: Does not smoke. Does not consume alcohol. Does not use illicit drugs. ALLERGIES: AMOXICILLIN, CIPRO, AUGMENTIN, ERYTHROMYCIN, FENTANYL, METOLAZONE, SULFA, TRAMADOL, AND AMBIEN. REVIEW OF SYSTEMS: Otherwise, negative. OUTPATIENT MEDICATIONS: 1. Prednisone. 2. Hydroxyzine. 3. Guaifenesin. 4. Diphenhydramine. 5. Sertraline. 6. Potassium. 7. Protonix. 8. Oxybutynin. 9. Dulera. 10. Loperamide. 11. Levothyroxine. 12. DuoNeb. 13. [place]. 14. Furosemide. 15. Fluoxetine. 16. Cholecalciferol. 17. Carvedilol. 18. Atorvastatin. 19. Eliquis. 20. Vitamin C. 21. Cordarone. 22. Alprazolam. CURRENT INPATIENT MEDICATIONS: 1. Cefepime. 2. Clonidine. 3. Famotidine. 4. Hydralazine. 5. Ondansetron. 6. Vancomycin. PHYSICAL EXAMINATION: VITAL SIGNS: Temperature 97.6, pulse 74, blood pressure 168/89, and O2 saturation 97%. GENERAL: She is awake, alert, in no distress. HEENT: Unremarkable. NECK: No adenopathy or JVD. CHEST: Clear without wheezing or rhonchi. CARDIOVASCULAR: S1 and S2. Regular without audible murmur. ABDOMEN: Soft and nontender to palpation. EXTREMITIES: No clubbing, cyanosis, or edema. IMAGING: Her chest x-ray shows decreased lung volumes, atelectasis at the bases, question of infiltrate. LABORATORY DATA: White blood count 14.5, hematocrit 33.1, and platelet count 385. Sodium 131, potassium 4.9, chloride 101, CO2 of 20, BUN 48, creatinine 1.9, and glucose 79. ASSESSMENT: 1. Patient appears as if she has pneumonia. 2. Underlying chronic obstructive pulmonary disease. 3. Rule out COVID. 4. Chronic kidney disease. PLAN: Reviewed orders. Agree with broad-spectrum antibiotics, IV fluids. Additionally, I will put her on breathing treatments and resume nebulizer once COVID status comes back negative. Also, put her on low-dose steroids as she is steroid dependent as an outpatient. Dr. Hook will assume care tomorrow. Job ID: [id number]
[2020-02-17 19:24] LABS: SARS-CoV-2 MS2 Positive; SARS-CoV-2 N Gene Negative; SARS-CoV-2 S Gene Negative; SARS-CoV-2 orf1ab Negative
[2020-02-17] MEDS ORDERED: HYDROcodone/Acetaminophen 10/325 mg Tablet PO PRN (20:18)
[2020-02-18] MEDS: methylPREDNISolone Sod Succ 40 MG VIAL IVP SCH ×3 (05:25→17:12)
[2020-02-18] MEDS: Famotidine/PF 20 mg/2ml Vial SLOW IVP SCH (08:09)
[2020-02-18 08:34] LABS: #Lymphocytes 0.6 thou/uL (1.20-3.40); #Monocytes 0.1 thou/uL (0.11-0.59); #Neutrophils 8.2 thou/uL (1.40-6.50); %Eosinophils 0.4 % (0.0-10.0); %Lymphocytes 7.2 % (21.0-51.0); %Monocytes 1.1 % (0.0-10.0); %Neutrophils 91.3 % (42.0-75.0); Hemoglobin 11.5 g/dL (12.0-16.0); Mean Corpuscular HGB CONC 32.2 g/dL (32.0-36.0); Mean Corpuscular Hemoglobin 28.4 pg (27.0-31.0); Mean Corpuscular Volume 88.2 fL (78.0-98.0); Platelet Count 423 thou/uL (130-400); RBC Distribution Width 14.4 % (11.5-14.5); Red Blood Cell (RBC) Count 4.07 mill/uL (4.20-5.40); White Blood Cell (WBC) Count 8.9 thou/uL (4.8-10.8)
[2020-02-18 08:40] LABS: Anion Gap 16 mmol/L (10-20); BUN (Urea Nitrogen) 46 mg/dL (9.8-20.1); Calc. Creatinine Clearance 43 mL/min (70-130); Calcium 8.4 mg/dL (7.8-10.44); Carbon Dioxide 21 mmol/L (23-31); Chloride 101 mmol/L (98-107); Estimated GFR-MDRD 31; Glucose 170 mg/dL (83-110); Potassium 4.5 mmol/L (3.5-5.1); Sodium 133 mmol/L (136-145)
--- NOTE | 2020-02-18 10:09 | PRG ---
DATE OF SERVICE: 02/18/2020 SUBJECTIVE: Cecilia Santizo is an 80-year-old female. This morning, she is little bit more awake, responsive. OBJECTIVE: VITAL SIGNS: Temperature 98, pulse 90, respiratory rate 18, sats 99 on 2 L, and blood pressure 173/85. CHEST: Decreased breath sounds. No wheezing. CARDIAC: Normal S1, S2. ABDOMEN: No masses. LABORATORY DATA: Creatinine 1.5. X-ray shows admission to the hospital with recurrent aspiration secondary to dysphagia, severe deconditioning, morbid obesity, renal failure. PLAN: Continue present treatment and supportive care. Family at one time admitted DNR, but did not want hospice care. Clearly, her prognosis remains grave. We will follow. Job ID: [id number]
[2020-02-18] MEDS ORDERED: Potassium Chloride 10 MEQ TAB PO PRN (11:11)
[2020-02-18] MEDS ORDERED: Loperamide HCl 2 MG CAP PO PRN (11:11)
[2020-02-18] MEDS: Cefepime 1 GM in Sodium Chloride 0.9% 100 ML IVPB SCH (11:48)
--- NOTE | 2020-02-18 12:41 | PDOC.HOSPP ---
- Subjective Encounter Date: 02/18/20 Encounter Time: 12:39 Subjective: Ms. Santizo was seen today in follow-up of pneumonia with respiratory failure. She is resting in bed. She will awaken and answer a few questions then go back to sleep. She appears comfortable. - Objective Vital Signs & Weight: Vital Signs (12 hours) Temp Pulse Resp BP Pulse Ox 02/18/20 10:15 96 18 99 02/18/20 08:06 98.2 F 96 18 173/85 H 99 02/18/20 06:40 67 20 99 Weight Weight 208 lb 15.971 oz Most Recent Monitor Data Heart Rate from ECG 77 NIBP 140/109 NIBP BP-Mean 119 Respiration from ECG 27 SpO2 97 I&O: 02/17/20 02/18/20 02/19/20 06:59 06:59 06:59 Intake Total 1350 880 Output Total 2451 1860 Balance -1104 -089 Result Diagrams: 02/18/20 08:15 02/18/20 08:15 Hospitalist ROS - Medication Medications: Active Medications Generic Name Dose Route Start Last Admin Trade Name Freq PRN Reason Stop Dose Admin Albuterol/Ipratropium 3 ml 02/17/20 22:30 02/18/20 10:15 Duoneb NEB 3 ml [id number] JERMAINE Administration Famotidine 20 mg 02/17/20 09:00 02/18/20 08:09 Pepcid SLOW IVP 20 mg DAILY JERMAINE Administration Cefepime HCl 1 gm/ Sodium 100 mls @ 200 mls/hr 02/16/20 23:59 02/18/20 11:48 Chloride IVPB 100 mls 1200,2359 JERMAINE Administration Methylprednisolone Sodium Succinate 20 mg 02/17/20 18:00 02/18/20 11:48 Solu-Medrol IVP 20 mg Q6HR JERMAINE Administration Sodium Chloride 10 ml 02/17/20 21:00 02/18/20 08:09 Flush - Normal Saline IVF 10 ml Q12HR JERMAINE Administration - Exam Eye: PERRL Heart: RRR, no murmur, no gallops, no rubs, normal peripheral pulses Respiratory: CTAB (+ with the exception of same rales at the bases) Gastrointestinal: soft, non-tender, non-distended, normal bowel sounds, no palpable masses Extremities: no cyanosis, 1+ LE edema Hosp A/P (1) Acute and chronic respiratory failure Code(s): J96.20 - ACUTE AND CHR RESP FAILURE, UNSP W HYPOXIA OR HYPERCAPNIA Status: Acute Qualifiers: Respiratory failure complication: hypoxia Qualified Code(s): J96.21 - Acute and chronic respiratory failure with hypoxia (2) PNA (pneumonia) Code(s): J18.9 - PNEUMONIA, UNSPECIFIED ORGANISM Status: Acute Qualifiers: Pneumonia type: aspiration pneumonia (3) COPD (chronic obstructive pulmonary disease) Status: Chronic Qualifiers: COPD type: chronic bronchitis (4) Chronic diastolic heart failure Code(s): I50.32 - CHRONIC DIASTOLIC (CONGESTIVE) HEART FAILURE Status: Chronic (5) Hypertension Code(s): I10 - ESSENTIAL (PRIMARY) HYPERTENSION Status: Chronic Qualifiers: (6) Hyponatremia Code(s): E87.1 - HYPO-OSMOLALITY AND HYPONATREMIA Status: Chronic (7) Hypothyroidism Code(s): E03.9 - HYPOTHYROIDISM, UNSPECIFIED Status: Chronic Qualifiers: (8) Acute kidney injury Code(s): N17.9 - ACUTE KIDNEY FAILURE, UNSPECIFIED Status: Acute - Plan * Acute on chronic respiratory failure- continue treatment for pneumonia. * COVID -19 has been ruled out, and duonebs have been started * COPD-improving * Re-start her home medications as tolerated * Acute Kidney injury- improving * Hyponatremia- due to volume depletion- improving
[2020-02-18] MEDS: Gabapentin 300 MG CAP PO SCH ×2 (14:26→21:39)
[2020-02-18] MEDS: Carvedilol 6.25 MG TAB PO SCH (17:12)
[2020-02-18 18:28] LABS: Vancomycin, Random 19.9 ug/mL (See Comment)
[2020-02-18] MEDS: Mometasone 200 MCG/Formoterol 5 MCG 120 PUFF INHALER INH SCH (19:13)
[2020-02-18] MEDS ORDERED: ALPRAZolam 0.25 MG TAB PO SCH (21:00)
[2020-02-18] MEDS ORDERED: Atorvastatin Calcium 10 MG TAB PO SCH (21:00)
[2020-02-18] MEDS: Furosemide 20 MG TAB PO SCH (21:39)
[2020-02-18] MEDS: Apixaban 2.5 MG TAB PO SCH (21:39)
[2020-02-18] MEDS ORDERED: Vancomycin 1 GM in Premix Bag 1 BAG IVPB SCH (22:00)
[2020-02-19] MEDS: Cefepime 1 GM in Sodium Chloride 0.9% 100 ML IVPB SCH ×2 (01:20→11:59)
[2020-02-19] MEDS: methylPREDNISolone Sod Succ 40 MG VIAL IVP SCH ×4 (01:21→16:35)
[2020-02-19] MEDS ORDERED: Levothyroxine Sodium 125 MCG TAB PO SCH (06:00)
[2020-02-19 07:28] VITALS: BP 164/77; TEMP 97.9
[2020-02-19] MEDS: Mometasone 200 MCG/Formoterol 5 MCG 120 PUFF INHALER INH SCH (07:32)
[2020-02-19] MEDS: Apixaban 2.5 MG TAB PO SCH (08:39)
[2020-02-19] MEDS: Gabapentin 300 MG CAP PO SCH ×2 (08:40→16:34)
[2020-02-19] MEDS: Furosemide 20 MG TAB PO SCH (08:41)
[2020-02-19] MEDS: Carvedilol 6.25 MG TAB PO SCH ×2 (08:41→16:33)
[2020-02-19] MEDS: Famotidine/PF 20 mg/2ml Vial SLOW IVP SCH (08:44)
[2020-02-19] MEDS ORDERED: Oxybutynin ER 5 MG TAB PO SCH (09:00)
[2020-02-19] MEDS ORDERED: Amiodarone 200 MG TAB PO SCH (09:00)
[2020-02-19] MEDS ORDERED: Multivit, Therapeutic 1 TAB PO SCH (09:00)
[2020-02-19] MEDS ORDERED: FLUoxetine HCl 20 MG CAP PO SCH (09:00)
[2020-02-19] MEDS ORDERED: Saccharomyces boulardii 250 MG CAP PO SCH (09:00)
[2020-02-19] MEDS ORDERED: Ascorbic Acid 500 mg Chewable Tablet PO SCH (09:00)
[2020-02-19] MEDS ORDERED: Cholecalciferol (Vitamin D3) 400 UNITS TAB PO SCH (09:00)
--- NOTE | 2020-02-19 09:25 | PRG ---
DATE OF SERVICE: 02/19/2020 SUBJECTIVE: Sukhdev is an 80-year-old female, who likes to go home today. She is less encephalopathic. OBJECTIVE: VITAL SIGNS: Temperature 97, blood pressure 164/77, saturations 92% on 2 L, respiratory rate 18. CHEST: No wheezing or crackles. CARDIAC: Normal S1, S2. No gallops. ABDOMEN: No mass. ASSESSMENT AND PLAN: Recurrent aspiration pneumonia, culture negative. She is ready to be discharged home. I would discontinue all antibiotics. Switch her over to oral antibiotics empirically for several days. Her long-term prognosis is grave since she has continued to have issues with recurrent aspiration. She is a DNR. Job ID: [id number]
--- NOTE | 2020-02-19 17:11 | PQF ---
CLINICAL DOCUMENTATION IMPROVEMENT CLARIFICATION FORM: ICD-10 Updated PLEASE DO AN ADDENDUM TO THE PROGRESS NOTE WITH ANY DOCUMENTATION UPDATES OR ADDITIONS AND CARRY THROUGH TO DC SUMMARY. THANK YOU. DATE: 02/19/2020 ATTN: Dr. Muniz Please exercise your independent, professional judgment in responding to the clarification form. Clinical indicators are provided on the bottom of this form for your review Please check appropriate box(s) to clarify if the following diagnosis has been ruled in or ruled out: SEPSIS [ X ] Ruled in diagnosis [ X ] Continue to treat [ ] Resolved [ ] Ruled out diagnosis [ ] Improving [ ] Cannot rule out diagnosis [ ] Other diagnosis [ ] Unable to determine In addition, please specify: Present on Admission (POA): [X ] Yes [ ] No [ ] Unable to determine For continuity of documentation, please document condition throughout progress notes and discharge summary. Thank You. CLINICAL INDICATORS - SIGNS / SYMPTOMS / LABS / RESULTS AND LOCATION IN MR ER Record 02/15: Doctor Notes: She is septic and in need of antibiotics and fluid resuscitation. H&P 02/15: LAB: White blood cell count 20.8 Assessment: She in minimal has hospital-acquired pneumonia with sepsis. 02/16 -02/17 (Flavio) aspiration pneumonia RISKS: ER Record 02/15: The pt was recently hospitalized and discharged for aspiration pneumonia and sepsis. H&P 02/15: PMH: chronic respiratory failure due to COPD, on home O2. chronic a fib , CKD 2, severe debility. 02/16 (Flavio) Acute and chronic respiratory failure. Aspiration pneumonia. NIKI TREATMENT: H&P 02/15: She will be admitted to the IM, placed on broad-spectrum antibiotics Thank you, Gunjan (This form is maintained as a part of the permanent medical record) 2014 [email or web address]. All Rights Reserved Gunjan Hamilton RN, BSN [email or web address]
--- NOTE | 2020-02-19 19:42 | DIS ---
DATE OF ADMISSION: 02/16/2020 DATE OF DISCHARGE: 02/19/2020 DISCHARGE DISPOSITION AND FOLLOWUP: The patient was discharged home with . The patient was seen and examined on day of discharge. Denies any new complaints. INPATIENT CONSULT: Pulmonology. CLINICAL COURSE: The patient is an 80-year-old female with well known history of COPD. She presented to the hospital for being short of breath and obtunded. She had recently been admitted for respiratory failure and pneumonia, but was discharged home since that time on oral steroids and antibiotics. She was admitted to [facility] and placed on broad-spectrum antibiotics and droplet isolation for COVID workup. IV fluids were given to assist in her acute kidney injury, and she was also treated for hyperkalemia with calcium chloride as well as glucose, insulin, and IV bicarb. Pulmonology saw the patient and started her on steroids. She transitioned to medical floor and was continued on the broad-spectrum antibiotics along with IV steroids. COVID was ruled out. Upon discharge home on 02/19/2020, IV antibiotics and IV steroids were discontinued, and she was transitioned to oral antibiotics and oral steroids. DIAGNOSES: 1. Acute on chronic respiratory failure. 2. Pneumonia. 3. Chronic obstructive pulmonary disease. 4. Chronic diastolic heart failure. 5. Hypertension. 6. Hyponatremia. 7. Hypothyroidism. 8. Acute kidney injury. DISCHARGE MEDICATIONS: New prescriptions of 1. Doxycycline monohydrate 100 mg p.o. b.i.d. for 5 days. 2. Prednisone 20 mg p.o. daily for 4 days. Medications to resume: 1. Alprazolam 0.25 mg q.h.s. 2. Amiodarone 200 mg p.o. daily. 3. Eliquis 2.5 mg p.o. b.i.d. 4. Vitamin C 500 mg p.o. daily. 5. Lipitor 10 mg p.o. h.s. 6. Carvedilol 6.25 mg p.o. b.i.d. 7. Vitamin D3 of 200 units p.o. daily. 8. Diphenhydramine 25 mg p.o. h.s. p.r.n. 9. Fluoxetine 30 mg p.o. daily. 10. Furosemide 20 mg p.o. b.i.d. 11. Gabapentin 600 mg p.o. t.i.d. 12. [place] 10/325 one q.4 hours p.r.n. pain. 13. DuoNeb 3 mL nebs q.6 hours. 14. Synthroid 125 mcg p.o. daily. 15. Dulera 200 mcg/5 mcg inhaler two puffs inhaled b.i.d. 16. Multivitamin one tablet daily. 17. Oxybutynin chloride 10 mg p.o. daily. 18. Pantoprazole 40 mg daily. 19. Potassium chloride 10 mEq daily. 20. Florastor 250 mg p.o. daily. DISCHARGE INSTRUCTIONS: The patient was instructed on all medication use and possible side effects of each medication. She was also encouraged to find a primary care physician. TIME SPENT: Total time coordinating the discharge of this patient was 25 minutes. Job ID: [id number] MTDD
== END 2020-02-19 17:34 | disposition home health service (06) | DRG 871 ==
LOC: ERS 11:09 → CCU 13:34 → T4-A 02-17 16:34
PROVIDERS: ADMIT Internal Medicine; ATTEND Internal Medicine
PROC: 8E0ZXY6 Isolation (ICD-10-PCS; principal; 2020-02-16)
DX: A41.9 Sepsis, unspecified organism (principal); J96.21 Acute and chronic respiratory failure with hypoxia; J69.0 Pneumonitis due to inhalation of food and vomit; I50.32 Chronic diastolic (congestive) heart failure; E87.1 Hypo-osmolality and hyponatremia; N17.9 Acute kidney failure, unspecified; I13.0 Hypertensive heart and chronic kidney disease with heart failure and stage 1 through stage 4 chronic kidney disease, or unspecified chronic kidney disease; I48.20 Chronic atrial fibrillation, unspecified; G93.49 Other encephalopathy; Z20.828 Contact with and (suspected) exposure to other viral communicable diseases; Z66 Do not resuscitate; E03.9 Hypothyroidism, unspecified; K21.9 Gastro-esophageal reflux disease without esophagitis; E78.5 Hyperlipidemia, unspecified; N18.3 Chronic kidney disease, stage 3 (moderate); Y95 Nosocomial condition; E66.01 Morbid (severe) obesity due to excess calories; J44.9 Chronic obstructive pulmonary disease, unspecified; R13.10 Dysphagia, unspecified; Z90.710 Acquired absence of both cervix and uterus; Z99.81 Dependence on supplemental oxygen; Z74.01 Bed confinement status; Z88.1 Allergy status to other antibiotic agents; Z88.2 Allergy status to sulfonamides; Z88.8 Allergy status to other drugs, medicaments and biological substances; Z79.899 Other long term (current) drug therapy; Z79.890 Hormone replacement therapy; Z79.01 Long term (current) use of anticoagulants; Z79.51 Long term (current) use of inhaled steroids; Z79.52 Long term (current) use of systemic steroids; Z68.34 Body mass index [BMI] 34.0-34.9, adult; Z90.49 Acquired absence of other specified parts of digestive tract
CPT/HCPCS: 36415; 36416; 51701; 71045; 80048; 80053; 80202; 81003; 83605; 83880; 84484; 85025; 87040; 87635; 87804; 93005; 94640; 94760; 96365; 96366; 96367; 96375; 99292; A4353; J0692; J1815; J1956; J2920; J3370; J3490; J7620; S0028; U0003

== ENCOUNTER 2020-03-06 20:10 | Inpatient (IN) | payer MEDICARE, OTHER ==
[2020-03-06 21:14] LABS: #Basophils 0.1 thou/uL (0.0-0.2); #Eosinphils 0.3 thou/uL (0.0-0.7); #Lymphocytes 1.6 thou/uL (1.20-3.40); #Monocytes 0.5 thou/uL (0.11-0.59); #Neutrophils 3.1 thou/uL (1.40-6.50); %Basophils 1.7 % (0.0-1.0); %Lymphocytes 28.4 % (21.0-51.0); %Monocytes 9.1 % (0.0-10.0); %Neutrophils 55.7 % (42.0-75.0); Hemoglobin 9.3 g/dL (12.0-16.0); Mean Corpuscular HGB CONC 32.1 g/dL (32.0-36.0); Mean Corpuscular Hemoglobin 29.3 pg (27.0-31.0); Mean Corpuscular Volume 91.4 fL (78.0-98.0); Mean Platelet Volume 7.8 fL (7.4-10.4); Platelet Count 163 thou/uL (130-400); RBC Distribution Width 14.9 % (11.5-14.5); Red Blood Cell (RBC) Count 3.18 mill/uL (4.20-5.40); White Blood Cell (WBC) Count 5.6 thou/uL (4.8-10.8)
[2020-03-06] MEDS ORDERED: Vancomycin 1 GM/200 ML BAG ONE (21:23)
[2020-03-06] MEDS ORDERED: Cefepime 2 GM VIAL ONE (21:23)
[2020-03-06 21:37] LABS: ALT (SGPT) 24 U/L (8-55); AST (SGOT) 24 U/L (5-34); Albumin 3.1 g/dL (3.4-4.8); Alkaline Phosphatase 81 U/L (40-110); Anion Gap 14 mmol/L (10-20); BUN (Urea Nitrogen) 19 mg/dL (9.8-20.1); Bilirubin, Total 0.4 mg/dL (0.2-1.2); Calc. Creatinine Clearance 0 mL/min (70-130); Calcium 7.9 mg/dL (7.8-10.44); Carbon Dioxide 28 mmol/L (23-31); Chloride 94 mmol/L (98-107); Estimated GFR-MDRD 32; Globulin 2.5 g/dL (2.4-3.5); Glucose 100 mg/dL (83-110); Potassium 4.5 mmol/L (3.5-5.1); Protein, Total 5.6 g/dL (6.0-8.3); Sodium 131 mmol/L (136-145)
--- NOTE | 2020-03-06 21:41 | RAD ---
Portable frontal chest radiograph: 03/06/2020 COMPARISON: 02/26/2020 HISTORY: Pneumonia, sepsis, fever FINDINGS: Right lung appears clear. Heart and mediastinal contours are stable. There is atherosclerotic calcifi cation of the aortic arch. There is hazy increased density in the left base with partial obscuration of the left hemidiaphragm, not significantly changed. There is prominent degenerative filemon nge involving the left shoulder. IMPRESSION: Nonspecific increased density again seen within the left base suggesting left basilar inf iltrate. Recommend follow-up PA and lateral imaging following treatment to document resolution.
[2020-03-06 21:56] LABS: Bacteria/HPF None Seen HPF (None Seen); Bilirubin Negative (Negative); Blood, Urine Negative (Negative); Clarity Clear (Clear); Glucose, Urine (Dipstick) Normal (Negative); Leukocyte 250 Leu/uL (Negative); Nitrite Negative (Negative); Protein, Urine (Dipstick) 30 mg/dL (Neg-Trace); RBC/HPF 0-3 HPF (0-3); Squamous Epithelial None Seen HPF (0-3); Urobilinogen Normal mg/dL (Less than 2)
[2020-03-06 21:56] LABS: CKMB 0.7 ng/mL (0-6.6)
[2020-03-06 23:57] VITALS: BMI 31.4
[2020-03-07] MEDS: Sodium Chloride 0.9% 1,000 ML IV SCH ×3 (01:38→20:39)
--- NOTE | 2020-03-07 01:40 | HP ---
CHIEF COMPLAINT: Fever, low oxygen saturation, and generalized weakness. HISTORY OF PRESENT ILLNESS: Ms. Santizo is an 80-year-old female with multiple medical problems including recurrent pneumonias secondary to aspiration; congestive heart failure, diastolic; chronic kidney disease; COPD; hypertension; hypothyroidism; hyperlipidemia; atrial fibrillation;among others; was brought to the emergency room with low oxygen saturation, shortness of breath, fever, and chills. The patient was recently discharged from the hospital on February 28 after she has been treated for aspiration pneumonia. This is the third visit this week for fever. Denies any history to COVID. The patient is lethargic. Initially in the emergency room, the patient was hypotensive with systolic blood pressure in the 80s. The patient was given IV fluid bolus. The latest blood pressure is 100/55. The patient was febrile with a temperature of 102. The patient was hypoxic with oxygen saturation in the 80s. Lab work, the patient was found to have elevated wbc in the urine. Chest x-ray showing left basilar infiltrate suggestive of pneumonia. Troponin is elevated at 0.115. Septic workup done in the ED. In the emergency room, the patient was given IV vancomycin, cefepime as per records, which was confirmed by the ED physician and RN, and as per family, the patient is DNR and DNI. The patient is going to be admitted to [facility] for further management. PAST MEDICAL HISTORY: Asthma; congestive heart failure, diastolic; PE; atrial fibrillation; recurrent pneumonias; aspiration; hypertension; chronic kidney disease; hyperlipidemia; hypothyroidism; GERD; dysphagia. PAST SURGICAL HISTORY: 1. Tonsillectomy. 2. Cholecystectomy. 3. Hysterectomy. 4. Appendectomy. 5. Removal of ovaries. 6. Cataract. 7. GI dilatation. 8. Stripping of veins in the legs. PAST PSYCHIATRIC HISTORY: Includes depression, anxiety. SOCIAL HISTORY: No history of smoking or drug use or alcohol use. ALLERGIES: ALLERGIC TO ERYTHROMYCIN, FENTANYL, LATEX, OXYCODONE, TRAMADOL, ALPRAZOLAM. HOME MEDICATIONS: Please see home medication reconciliation form for updated medications. REVIEW OF SYSTEMS: The patient is lethargic, but review of 14 systems negative except what is mentioned in history of present illness. This is unreliable due to patient's underlying medical condition. PHYSICAL EXAMINATION: GENERAL: The patient is lethargic but easily arousable. Able to answer very simple question, in moderate respiratory distress. VITAL SIGNS: Blood pressure is 100/55, pulse is 88, respiratory rate is 20, temperature is 102, oxygen saturation 93% on 2 L/minute nasal cannula. HEAD AND NECK: Normocephalic and atraumatic. NECK: Supple. CHEST: Decreased air entry bilaterally. HEART: S1 and S2. ABDOMEN: Obese, soft. Bowel sounds present. NEUROLOGIC: Awake, oriented x1, lethargic. PSYCH: Unable to assess. EXTREMITIES: Positive for edema. No clubbing. No cyanosis. LABORATORY DATA: As mentioned above in history of present illness. Chest x-ray as mentioned above in history of present illness. EKG showed sinus rhythm with PACs and first-degree AV block. No acute ischemic changes. ASSESSMENT: 1. Severe sepsis. 2. Bssmc-mi-nrewyvy respiratory failure. 3. Pneumonia ? Aspiration. 4. Suspected COVID. 5. Elevated troponin ? [id number] myocardial infarction. 6. History of atrial fibrillation, was on anticoagulant. 7. Morbid obesity. 8. Chronic obstructive pulmonary disease. 9. Hypertension. 10. Hypothyroidism. 11. Gastroesophageal reflux disease. 12. Dysphagia. PLAN: 1. Admit to IMCU. 2. Septic workup including blood cultures, urine cultures, COVID swab done in the ED. 3. Isolation precautions. 4. Continue with IV antibiotics, cefepime, and vancomycin. 5. Oxygen to keep saturation more than 92%. 6. Cautious IV fluids given her history of congestive heart failure, reassess in a.m. 7. Monitor kidney function and urine output. 8. Serial troponins. 9. Consult Cardiology in a.m. for elevated troponin ? NSTEMI. 10. Reconcile home medications. 11. DVT prophylaxis as appropriate. 12. Expected length of stay, 2 midnights or more. Job ID: [id number]
[2020-03-07 02:13] LABS: Troponin I 0.259 ng/mL (< 0.028)
[2020-03-07 06:32] LABS: Cardiac Risk 2.8 (Less than 4.5)
[2020-03-07 06:37] LABS: Troponin I 0.264 ng/mL (< 0.028)
--- NOTE | 2020-03-07 07:09 | PDOC.PULCN ---
Pulmonology Consult: HPI - Date of Consult Date: 03/07/20 Time: 07:00 - Consult Details Reason for Consult: IMCU admission, Sepsis, PNA Requesting Physician: Dr. Wan - History of Present Illness HPI: JOSÉ GAN is a 80 year-old F with a pmh of HFrEF, CKD 3, COPD, HTN, hypothyroidism, atrial fibrillation, and HLD who presented to the ER with a cc of cough and fever. She states these symptoms had been going on for 1 day [employer]ATING [employer]. She states the cough was productive at times with white sputum. She has a history of aspiration PNA but denies anything events leading to this episode of fever and cough. She was recently discharged from the hospital on 02/28 for aspiration PNA for which she was sent home on oral clindamycin. She states she was starting to feel a little bit better prior to returning to the ER but this was minimal improvement. She denies any sick contacts in the time she was at home. It appears that she has had multiple hospice conversations but when I discussed this with her briefly she became acutely distressed stating she wants to stay home. Pulmonology Consult: ROS - Review of Systems Constitutional: fever, chills, weakness, malaise. negative: sweats Cardiovascular: edema. negative: chest pain, palpitations, orthopnea, paroxysmal nocturnal dyspnea Respiratory: cough, productive cough, short of breath. negative: chest soreness , chest tightness, pain on deep breathing, non-productive cough, wheezing Pulmonology Consult: PMH Source: patient, other (chart) Past Medical History: COPD, HTN, HLD, GERD, atrial fibrillation, recurrent aspiration often with PNA, hypothyroidism - Family History Family history: reviewed and not pertinent - Social History Smoking Status: Never smoker Alcohol Use: none Drug Use History: none Living Situation: (lives at home with , requires assistance with some ADLs) Pulmonology Consult: Meds - Medications MAR Reviewed: Yes Medications: Current Medications Aspirin (Aspirin) 300 mg OR DAILY JERMAINE Sodium Chloride (Normal Saline 0.9%) 1,000 mls @ 75 mls/hr IV .[id number] JERMAINE Last Admin: 03/07/20 01:38 Dose: 1,000 mls Cefepime HCl 2 gm/ Sodium (Chloride) 100 mls @ 200 mls/hr IVPB 2100 JERMAINE Vancomycin HCl 1 gm/ Device 200 mls @ 133.333 mls/hr IVPB 2200 [facility] Miscellaneous Medication (Pharmacy To Dose) 1 each IVPB PRN PRN PRN Reason: Pharmacy to dose - Allergies Allergies/Adverse Reactions: Allergies Allergy/AdvReac Type Severity Reaction Status Date / Time erythromycin base Allergy Verified 03/07/20 00:29 [From Erythrocin] erythromycin lactobionate Allergy Verified 03/07/20 00:29 [From Erythrocin] Latex, Natural Rubber Allergy Rash Verified 03/07/20 00:29 metolazone [Metolazone] Allergy Verified 03/07/20 00:29 nalbuphine Allergy Verified 03/07/20 00:29 nalbuphine HCl [From Nubain] Allergy Verified 03/07/20 00:29 oxycodone Allergy Verified 03/07/20 00:29 oxycodone HCl Allergy Rash Verified 03/07/20 00:29 [From OxyContin] potassium clavulanate Allergy Diarrhea Verified 03/07/20 00:29 [From Augmentin] zolpidem Allergy Verified 03/07/20 00:29 tramadol [From Ultram] AdvReac Intermediate Verified 03/07/20 00:29 zolpidem tartrate AdvReac Intermediate "crazy" Verified 03/07/20 00:29 [From Ambien] fentanyl [From Duragesic] AdvReac Mild Anxiety Verified 03/07/20 00:29 Pulmonology Consult: PE - Physical Exam Constitutional: NAD HEENT: PERRLA, moist MMs Neck: no JVD, full ROM Cardiovascular: no significant murmur Deviation from normal: tachycardic Respiratory: negative: chest wall tenderness Focused Respiratory Location: decreased breath sounds: Left, Lower, rhonchi: Right, Left, Upper, Lower, wheezes: Right, Upper Gastrointestinal: soft, non-tender, no distention Musculoskeletal: edema present (2+ edema to mid thigh) Neurological: moves all 4 limbs Deviation from normal: Oriented to person and place Skin: normal turgor Deviation from normal: No cyanosis Pulmonology Consult: Results - Labs Result Diagrams: 03/08/20 06:18 03/08/20 06:18 - Radiology Interpretation Chest x-ray Status: image reviewed by me, report reviewed by me (Nonspecific increased density again seen within the left base suggesting left basilar infiltrate) Pulmonology Consult: A/P - Time Time: 50% of the time was spent in coordination of care (as documented) at patient's floor/unit and/or counseling patient. Time with Patient: greater than 50 minutes - Plan Plan: This is an 80 yo female with multiple comorbidities presenting her for SOB, fever, and cough Severe Sepsis likely 2/2 LLL PNA vs Covid -Tmax 102, hypoxic, tachypnic -S/P 2L NS in ER, vancomycin and cefepime, would continue these until pt improves clinically -Pt recently discharged on clindamycin for aspiration pneumonia Acute hypoxic respiratory failure -Multiple comorbidities effecting pulmonary function, likely exacerbated by aspiration and COPD -Provide respiratory support NSTEMI type 2, likely 2/2 above -Cardiology consulted COPD -Continue home meds, does not appear to be the primary cause of SOB here HFpEF -Echo 07/2020 EF 55-60%, diastolic dysfunction -May need diuresis towards the end of her hospitalization Dr. Farrell's addendum Pt was seen and examined with Dr. Perez on 03-07-2020. I independently confirmed consultation findings above and agree. Pt's main issue is recurrent aspiration due to poor oropharyngeal function. Difficult situation
[2020-03-07] MEDS: Aspirin 300 MG Suppository PR SCH (08:51)
[2020-03-07 09:53] LABS: #Basophils 0.1 thou/uL (0.0-0.2); #Eosinphils 0.3 thou/uL (0.0-0.7); #Lymphocytes 1.2 thou/uL (1.20-3.40); #Monocytes 0.6 thou/uL (0.11-0.59); #Neutrophils 4.5 thou/uL (1.40-6.50); %Basophils 1.5 % (0.0-1.0); %Eosinophils 3.7 % (0.0-10.0); %Lymphocytes 18.5 % (21.0-51.0); %Monocytes 8.9 % (0.0-10.0); %Neutrophils 67.4 % (42.0-75.0); Hemoglobin 9.6 g/dL (12.0-16.0); Mean Corpuscular HGB CONC 31.9 g/dL (32.0-36.0); Mean Corpuscular Hemoglobin 29.2 pg (27.0-31.0); Mean Corpuscular Volume 91.5 fL (78.0-98.0); Mean Platelet Volume 7.6 fL (7.4-10.4); Platelet Count 203 thou/uL (130-400); White Blood Cell (WBC) Count 6.7 thou/uL (4.8-10.8)
[2020-03-07 10:15] LABS: Anion Gap 14 mmol/L (10-20); BUN (Urea Nitrogen) 18 mg/dL (9.8-20.1); Calc. Creatinine Clearance 47 mL/min (70-130); Calcium 7.8 mg/dL (7.8-10.44); Carbon Dioxide 27 mmol/L (23-31); Chloride 98 mmol/L (98-107); Estimated GFR-MDRD 37; Glucose 103 mg/dL (83-110); Potassium 4.1 mmol/L (3.5-5.1); Sodium 135 mmol/L (136-145)
[2020-03-07 10:43] LABS: SARS-CoV-2 MS2 Positive; SARS-CoV-2 N Gene Negative; SARS-CoV-2 S Gene Negative; SARS-CoV-2 orf1ab Negative
--- NOTE | 2020-03-07 15:21 | PDOC.PALCO ---
Palliative Care Consult - Consult Details Requesting Physician: Dr Melendez Reason for Consult: goals of care, assistance with communication prognosis/ disease, family support - Pertinent HPI 80 year old female that is familiar to the Palliative Care Team. She was discharged 02/29/20 home with home health and paid caregivers. Mrs Santizo continues to have dysphagia and is a total assist for all ADL with the exception of feeding herself. Resides in a private home setting with her . - Pertinent PMH CHF/diastolic, Asthma, PE, Atrial FIB, dysphagia, HTN, CKD, HDL, - Social History Smoking Status: Never smoker Smoking: no tobacco exposure Alcohol Use: none Drug Use History: none Living Situation: - Medications MAR Reviewed: Yes - Allergies Allergies/Adverse Reactions: Allergies Allergy/AdvReac Type Severity Reaction Status Date / Time erythromycin base Allergy Verified 03/07/20 00:29 [From Erythrocin] erythromycin lactobionate Allergy Verified 03/07/20 00:29 [From Erythrocin] Latex, Natural Rubber Allergy Rash Verified 03/07/20 00:29 metolazone [Metolazone] Allergy Verified 03/07/20 00:29 nalbuphine Allergy Verified 03/07/20 00:29 nalbuphine HCl [From Nubain] Allergy Verified 03/07/20 00:29 oxycodone Allergy Verified 03/07/20 00:29 oxycodone HCl Allergy Rash Verified 03/07/20 00:29 [From OxyContin] potassium clavulanate Allergy Diarrhea Verified 03/07/20 00:29 [From Augmentin] zolpidem Allergy Verified 03/07/20 00:29 tramadol [From Ultram] AdvReac Intermediate Verified 03/07/20 00:29 zolpidem tartrate AdvReac Intermediate "crazy" Verified 03/07/20 00:29 [From Ambien] fentanyl [From Duragesic] AdvReac Mild Anxiety Verified 03/07/20 00:29 - Subjective Sleeping but arousable. Mildly lethargic. When asking if she enjoyed being home the few days she was she states "I can't remember". Poor ROS secondary to fatigued state - ROS Constitutional: weakness Eyes: other (Denies visual changes) ENT: difficulty swallowing Respiratory: shortness of breath with extertion Genitourinary: incontinence Skin: bruising - Objective Vital Signs: Vital Signs - Most Recent Temp Pulse Resp BP Pulse Ox 99.0 F 78 20 128/86 97 03/07/20 13:30 03/07/20 13:30 03/07/20 13:30 03/07/20 13:30 03/07/20 13:30 Palliative Performance Scale: 30 - Physical Exam Constitutional: NAD, ill appearing HEENT: moist MMs, sclera anicteric Respiratory: diminished lung sound Cardiovascular: RRR Gastrointestinal: soft, non-tender, positive bowel sounds Genitourinary: incontinent Musculoskeletal: no clubbing, edema present, diffuse muscle atrophy Neurology: no focal deficits Skin: bruising, fragile Psychiatric: depressed - Problem List (1) Acute kidney injury Code(s): N17.9 - ACUTE KIDNEY FAILURE, UNSPECIFIED Current Visit: No Status : Acute (2) Aspiration pneumonia Code(s): J69.0 - PNEUMONITIS DUE TO INHALATION OF FOOD AND VOMIT Current Visit : No Status: Acute Qualifiers: Laterality: bilateral (3) Palliative care encounter Code(s): Z51.5 - ENCOUNTER FOR PALLIATIVE CARE Current Visit: No Status: Acute (4) Urinary incontinence Code(s): R32 - UNSPECIFIED URINARY INCONTINENCE Current Visit: No Status: Acute (5) Anxiety and depression Code(s): F41.8 - OTHER SPECIFIED ANXIETY DISORDERS Current Visit: No Status : Chronic (6) COPD (chronic obstructive pulmonary disease) Current Visit: No Status: Chronic Qualifiers: COPD type: chronic bronchitis (7) Chronic diastolic heart failure Code(s): I50.32 - CHRONIC DIASTOLIC (CONGESTIVE) HEART FAILURE Current Visit: No Status: Chronic (8) Dysphagia Code(s): R13.10 - DYSPHAGIA, UNSPECIFIED Current Visit: No Status: Chronic (9) Obesity (BMI 30-39.9) Code(s): E66.9 - OBESITY, UNSPECIFIED Current Visit: No Status: Chronic (10) Physical deconditioning Code(s): R53.81 - OTHER MALAISE Current Visit: No Status: Chronic - Plan/Recommendations Plan: Family continues to wish discharge with home health traditions and paid caregivers to assist in the home setting. "We are not ready for hospice". They are aware of continued elevated risk for pneumonia and infection related to aspiration as well as impact of multiple morbidities, desire to continue to seek treatment at the emergency room and hospital. Emotional support and therapeutic listening offered to patient and . Wish to remain with DNAR [45] minutes spent on this encounter with >50% of the time in counseling and coordination of care. Thank you for this very appropriate consult.
--- NOTE | 2020-03-07 18:09 | PDOC.HOSPP ---
- Subjective Encounter Date: 03/07/20 Encounter Time: 12:00 Subjective: The patient states she is doing okay. She has mild productive cough and SOB. No chest pain or fevers. COVID negative Patient unable to state what diet she was eating at home - Objective Vital Signs & Weight: Vital Signs (12 hours) Temp Pulse Resp BP Pulse Ox 03/07/20 13:30 99.0 F 78 20 128/86 97 03/07/20 12:42 99.1 F 03/07/20 08:00 97 03/07/20 07:47 99.0 F Weight Weight 201 lb 0.985 oz Most Recent Monitor Data Heart Rate from ECG 100 NIBP 116/68 NIBP BP-Mean 84 Respiration from ECG 29 SpO2 100 Result Diagrams: 03/07/20 09:44 03/07/20 09:44 Hospitalist ROS - Review of Systems Constitutional: denies: fever, chills - Medication Medications: Active Medications Generic Name Dose Route Start Last Admin Trade Name Freq PRN Reason Stop Dose Admin Aspirin 300 mg 03/07/20 09:00 03/07/20 08:51 Aspirin RI 300 mg DAILY JERMAINE Administration Sodium Chloride 1,000 mls @ 75 mls/hr 03/06/20 22:30 03/07/20 12:37 Normal Saline 0.9% IV 1,000 mls .[id number] JERMAINE Administration - Exam General Appearance: NAD, awake alert Eye: PERRL, anicteric sclera ENT: normocephalic atraumatic, no oropharyngeal lesions Neck: no JVD Heart: RRR, no murmur, no gallops, no rubs Respiratory: CTAB, no wheezes, no ronchi, rales Gastrointestinal: soft, non-tender, non-distended, normal bowel sounds Extremities: no cyanosis, no clubbing, no edema Skin: normal turgor, no lesions, no rashes Neurological: cranial nerve grossly intact, normal sensation to touch, no focal deficits, no new deficit Hosp A/P - Plan Consults: other THis is an 80 year old female with past medical history of recurrent aspiration pneumonia, COPD, hypertension, CKD who presented to the ER with fever, shortness of breath, chills and hypoxia, admitted for recurrent aspiration pneumonia Sepsis secondary to aspiration pneumonia - was started on IV vancomycin and cefepime. WIll d/c vancomycin, continue cefepime. - pt recently discharged on clindamycin during last admission. Admission prior to that was discharged on doxycycline - palliative care consult since this is third admission for the same problem Dysphagia - speech therapy consulted. Patient during previous admissions was noncompliant with diet suggested by speech, thereby causing recurrent aspiration Atrial fibrillation - continue amiodarone and eliquis Elevated troponin - deandreley type II - check ECHO, last one 08/2019 showed diastolic dysfunction PE - continue eliquis Hypothyroidism - continue levothyroxine COPD - resume home inhalers Code status: DNR
[2020-03-07] MEDS ORDERED: guaiFENesin ER 600 MG TAB PO PRN (18:13)
[2020-03-07] MEDS: Budesonide 0.25 MG/2 ML NEB INH SCH (18:35)
[2020-03-07] MEDS: Mometasone 200 MCG/Formoterol 5 MCG 120 PUFF INHALER INH SCH (18:36)
[2020-03-07] MEDS: Apixaban 2.5 MG TAB PO SCH (20:39)
[2020-03-07] MEDS: Atorvastatin Calcium 10 MG TAB PO SCH (20:39)
[2020-03-07] MEDS: Cefepime 2 GM in Sodium Chloride 0.9% 100 ML IVPB SCH (20:39)
[2020-03-07] MEDS: Gabapentin 300 MG CAP PO SCH (20:40)
[2020-03-07] MEDS ORDERED: Vancomycin 1 GM in Premix Bag 1 BAG IVPB SCH (22:00)
--- NOTE | 2020-03-07 23:25 | CON ---
DATE OF CONSULTATION: 03/07/2020 INDICATION FOR CONSULTATION: An 80-year-old female with recurrent aspiration pneumonias, history of atrial fibrillation in the past, who has also had slight elevation of the cardiac enzymes. HISTORY OF PRESENT ILLNESS: This very pleasant 80-year-old female who has some dementia who has been at home but has had multiple hospital admissions due to aspiration pneumonia. The family has refused to place a feeding tube or PEG tube in place in this lady, but she continues to live at home and continues to have aspiration. I believe at this time, she has been deemed to be a DNR patient, but is still very much viable patient at this time. She has been to emergency room apparently several times in a week complaining of some fever, and she again was admitted to the hospital yesterday due to what she says was shortness of breath, coughing and fever for several days. When she was last in the hospital, she also had a history of intermittent atrial fibrillation. At this time, she remains in sinus rhythm, and she denied any palpitations. She is a somewhat poor historian, however, due to her dementia. At this time, she denied any chest pain. Cardiac enzymes likely are elevated due to the aspiration pneumonia and possibly also she may be having some intermittent atrial fibrillation, but there was none noted at this time, and there was none noted on the tracings from the telemetry since she has been admitted to the hospital, and her admission EKG also did not indicate atrial fibrillation. She had a heart rate yesterday on admission about 93 beats per minute, but no acute ST-segment changes. She did have some nonspecific changes, but no significant ST-segment changes or elevation that would indicate significant ischemia. At this time, she is comfortable. She has been moved to the medical floor and has no complaints of shortness of breath at this time, and is comfortable in the bed, and there was no coughing during my evaluation. PAST MEDICAL HISTORY: Significant for congestive heart failure. She has diastolic heart failure. She had a history of intermittent atrial fibrillation. She has been placed on medications in the form of amiodarone and has remained in sinus rhythm. At least, I do not see any further episodes of atrial fibrillation at this time. She has recurrent pneumonias due to aspiration. She has a history of hypertension, chronic kidney disease, hypothyroidism, gastroesophageal reflux disease, dysphagia, and hyperlipidemia. She had multiple surgeries, which include a cataract surgery. She has had varicose veins removed from the leg. She has had oophorectomies, appendectomy, hysterectomy, cholecystectomy, and tonsillectomy. She has a history of anxiety and depression. SOCIAL HISTORY: She is . She lives with her . She has no significant alcohol or tobacco abuse. ALLERGIES: SHE IS ALLERGIC TO ERYTHROMYCIN, FENTANYL, LASIX, OXYCODONE, TRAMADOL, AND ALPRAZOLAM. MEDICATIONS: Please refer to the list of medications listed. From her home medications, she had an extensive list of medications, but the most pertinent medications include: 1. Amiodarone 100 mg a day. 2. Eliquis 2.5 mg twice a day. 3. Coreg 6.25 mg b.i.d. 4. Levothyroxine 125 mcg daily. 5. Budesonide 0.25 mg/2 mL via nebulizer b.i.d. 6. Atorvastatin 10 mg a day. 7. Oxybutynin chloride ER 10 mg daily. 8. Lasix 20 mg b.i.d. 9. Potassium 10 mEq b.i.d. She is to hold this if she is not being given the Lasix. 10. Prozac 20 mg a day in the mornings and 10 mg in the evenings. 11. Gabapentin 600 mg in the a.m., one at noon as necessary, and two q.p.m. 12. Pantoprazole 40 mg daily. 13. She is on a multitude of other dprj-gvg-wzrqbrl vitamins medications and nebulizers and also Mucinex and other medications, Tylenol, and so forth. REVIEW OF SYSTEMS: She denies any significant complaints to me at this time. She has had some coughing. She has had some fevers and some mild lower extremity edema. She is actually nonambulatory and has chronic lower extremity edema. PHYSICAL EXAMINATION: GENERAL: Reveals an elderly female. She is very comfortable. She is in no acute distress at this time. She is alert. She seems to be oriented. VITAL SIGNS: Her blood pressure is 128/86, heart rate is 78 and regular, respiratory rate 20. She actually has mild temperature of 99, low-grade temp, O2 saturations were 97%. HEENT: Unremarkable. Carotid pulses are present. CHEST: Her chest has bibasilar rales. CARDIOVASCULAR: Reveals a regular rate and rhythm at this time. I do not hear any gross murmurs, heaves, thrills, bruits, or rubs. She does have a very soft systolic murmur noted at the apex, most likely compatible with some mild mitral valve regurgitation. ABDOMEN: Shows obesity with positive bowel sounds. No organomegaly or masses are noted. Femoral pulses are present. EXTREMITIES: Showed mild clubbing of the lower extremities, and she does have pedal pulses which are present. NEUROLOGIC: The patient does appear to have some degree of dementia, but there were no gross focal motor deficits noted, but she does have some difficulty moving the lower extremities. LABORATORY DATA: Includes a WBC of 6.7, hemoglobin was 9.6, platelet count was 203,000. Her sodium was 135, potassium was 4.1, BUN was 18, creatinine 1.36, and blood sugar was 103. Troponin-I was 0.115, then increased up to 0.259, increased again to 0.264. Her BNP was 212, LDL was 51. EKG does not show acute changes. IMPRESSION: 1. Repeat aspiration pneumonia in this elderly female with pneumonia, fever, and coughing. She has been placed on antibiotics. I would agree with this. 2. Most likely type 2 dkm-PY-pawpmse elevation myocardial infarction. We will continue her present medications. I do not think she is a very good candidate for cardiac catheterization given her multiple medical problems as well as her dementia. 3. Hypertension. This is under good control at this time. 4. Intermittent atrial fibrillation. This also appears to be in sinus rhythm at this time. We would continue the amiodarone to decrease the risk of her returning to atrial fibrillation. Also, I would continue her Eliquis since she may actually be having some intermittent atrial fibrillation that we are not yet aware of. This will decrease the risk of her having a CVA. Also, we will need to pay attention to her edema, and she most likely will need to have daily diuretics. As far as any other cardiac recommendations, there are none at this time. Job ID: [id number]
[2020-03-08] MEDS ORDERED: diphenhydrAMINE 50 MG/ML VIAL IVP SCH (03:15)
[2020-03-08] MEDS: Levothyroxine Sodium 125 MCG TAB PO SCH (04:37)
[2020-03-08 06:34] LABS: Hemoglobin 8.8 g/dL (12.0-16.0); Mean Corpuscular HGB CONC 32.1 g/dL (32.0-36.0); Mean Corpuscular Hemoglobin 29.5 pg (27.0-31.0); Mean Corpuscular Volume 92.1 fL (78.0-98.0); Mean Platelet Volume 7.3 fL (7.4-10.4); Platelet Count 238 thou/uL (130-400); RBC Distribution Width 14.9 % (11.5-14.5); Red Blood Cell (RBC) Count 2.99 mill/uL (4.20-5.40); White Blood Cell (WBC) Count 6.9 thou/uL (4.8-10.8)
[2020-03-08 06:58] LABS: Anion Gap 12 mmol/L (10-20); BUN (Urea Nitrogen) 20 mg/dL (9.8-20.1); Calc. Creatinine Clearance 49 mL/min (70-130); Calcium 7.9 mg/dL (7.8-10.44); Carbon Dioxide 27 mmol/L (23-31); Chloride 100 mmol/L (98-107); Estimated GFR-MDRD 39; Glucose 91 mg/dL (83-110); Potassium 3.8 mmol/L (3.5-5.1); Sodium 135 mmol/L (136-145)
[2020-03-08] MEDS: Budesonide 0.25 MG/2 ML NEB INH SCH ×2 (08:11→18:42)
[2020-03-08] MEDS: Mometasone 200 MCG/Formoterol 5 MCG 120 PUFF INHALER INH SCH ×2 (08:12→18:43)
[2020-03-08] MEDS: Amiodarone 200 MG TAB PO SCH (09:11)
[2020-03-08] MEDS: Cholecalciferol (Vitamin D3) 400 UNITS TAB PO SCH (09:11)
[2020-03-08] MEDS: Apixaban 2.5 MG TAB PO SCH ×2 (09:11→20:28)
[2020-03-08] MEDS: Aspirin 300 MG Suppository PR SCH (09:11)
[2020-03-08] MEDS: Gabapentin 300 MG CAP PO SCH ×2 (09:12→20:28)
[2020-03-08] MEDS: FLUoxetine HCl 20 MG CAP PO SCH (09:12)
[2020-03-08] MEDS: Multivitamin W/ Minerals 1 TAB PO SCH (09:13)
[2020-03-08] MEDS ORDERED: Furosemide 20 MG/2 ML VIAL SLOW IVP SCH (11:45)
[2020-03-08] MEDS ORDERED: Gabapentin 300 MG CAP PO PRN (12:00)
--- NOTE | 2020-03-08 12:04 | PRG ---
DATE OF SERVICE: 03/08/2020 SUBJECTIVE: She is doing better. She floor. PHYSICAL EXAMINATION: VITAL SIGNS: Temperature is 99.5, pulse 98, respirations 16, O2 sat 93% on 3 L, blood pressure 140/83. HEENT: Unremarkable. NECK: No JVD. CHEST: Clear with some rhonchi. ABDOMEN: Soft. EXTREMITIES: No edema. ASSESSMENT: 1. Recurrent aspiration with pneumonia. 2. Oropharyngeal dysfunction. PLAN: She seems to be responding to current therapy. She is not having any diarrheal symptoms, so therefore hopefully C diff screen will be negative and we can take isolation. Job ID: [id number]
[2020-03-08] MEDS: Potassium Chloride 20 MEQ TAB PO SCH (13:03)
--- NOTE | 2020-03-08 15:11 | PDOC.HOSPP ---
- Subjective Encounter Date: 03/08/20 Encounter Time: 10:40 Subjective: she looks quite somnolent and lethargic. able to ans one or 2 qs..but drifts back into sleep. d/w RN. - Objective Vital Signs & Weight: Vital Signs (12 hours) Temp Pulse Resp BP Pulse Ox 03/08/20 08:11 98 16 96 03/08/20 08:00 96 03/08/20 07:28 99.5 F 98 20 142/83 H 96 03/08/20 04:00 99.4 F 95 18 147/89 H 95 Weight Weight 201 lb 0.985 oz Most Recent Monitor Data Heart Rate from ECG 100 NIBP 116/68 NIBP BP-Mean 84 Respiration from ECG 29 SpO2 100 I&O: 03/07/20 03/08/20 03/09/20 06:59 06:59 06:59 Intake Total 1350 Balance 1350 Result Diagrams: 03/08/20 06:18 03/08/20 06:18 Hospitalist ROS - Medication Medications: Active Medications Generic Name Dose Route Start Last Admin Trade Name Freq PRN Reason Stop Dose Admin Amiodarone HCl 100 mg 03/08/20 09:00 03/08/20 09:11 Cordarone PO Not Given DAILY [facility] Apixaban 2.5 mg 03/07/20 21:00 03/08/20 09:11 Eliquis PO Not Given BID [facility] Aspirin 300 mg 03/07/20 09:00 03/08/20 09:11 Aspirin MN Not Given DAILY [facility] Atorvastatin Calcium 10 mg 03/07/20 21:00 03/07/20 20:39 Lipitor PO Not Given HS [facility] Budesonide 0.25 mg 03/07/20 18:30 03/08/20 08:11 Pulmicort Neb Solution INH 0.25 mg BID-RT JERMAINE Administration Cholecalciferol 400 units 03/08/20 09:00 03/08/20 09:11 Vitamin D PO Not Given DAILY [facility] Fluoxetine HCl 30 mg 03/08/20 09:00 03/08/20 09:12 Prozac PO Not Given DAILY [facility] Gabapentin 1,200 mg 03/07/20 21:00 03/08/20 09:12 Neurontin PO Not Given 0900,2100 [facility] Sodium Chloride 1,000 mls @ 75 mls/hr 03/06/20 22:30 03/07/20 20:39 Normal Saline 0.9% IV 1,000 mls .[id number] JERMAINE Administration Cefepime HCl 2 gm/ Sodium 100 mls @ 200 mls/hr 03/07/20 21:00 03/07/20 20:39 Chloride IVPB 100 mls 2100 JERMAINE Administration Iron/Minerals/Multivitamins 1 tab 03/08/20 09:00 03/08/20 09:13 Theragran M PO Not Given DAILY JERMAINE Levothyroxine Sodium 125 mcg 03/08/20 06:00 03/08/20 04:37 Synthroid PO Not Given 0600 JERMAINE Mometasone Furoate/Formoterol Fumar 2 puff 03/07/20 18:30 03/08/20 08:12 Dulera 200 Mcg/5 Mcg Inhaler INH 2 puff BID-RT JERMAINE Administration Potassium Chloride 20 meq 03/08/20 12:00 03/08/20 13:03 K-Dur PO 03/09/20 13:00 20 meq 1200 JERMAINE Administration - Exam General Appearance: ill appearing Eye: PERRL ENT: normocephalic atraumatic Neck: supple Heart: RRR, normal peripheral pulses Respiratory: CTAB, normal chest expansion Gastrointestinal: soft, normal bowel sounds Neurological: no focal deficits Hosp A/P - Plan Sepsis secondary to aspiration pneumonia - s/p IV vancomycin and cefepime. - continue cefepime. - pt recently discharged on clindamycin during last admission. Admission prior to that was discharged on doxycycline - palliative care consult --known to be non-compliant w.. diet -ST ok w.. continuing pureed and honey nectar, which started today. Dysphagia - speech therapy consulted. Patient during previous admissions was noncompliant with diet suggested by speech, thereby causing recurrent aspiration -ST ok w.. continuing pureed and honey nectar, which started today. Atrial fibrillation - continue amiodarone and eliquis Elevated troponin - deandreley type II - check ECHO, last one 08/2019 showed diastolic dysfunction PE - continue eliquis Hypothyroidism - continue levothyroxine COPD - resume home inhalers DNAR
[2020-03-08] MEDS: Sodium Chloride 0.9% 1,000 ML IV SCH (15:32)
[2020-03-08] MEDS: Cefepime 2 GM in Sodium Chloride 0.9% 100 ML IVPB SCH (20:28)
[2020-03-08] MEDS: Atorvastatin Calcium 10 MG TAB PO SCH (20:28)
[2020-03-09] MEDS: Sodium Chloride 0.9% 1,000 ML IV SCH (04:05)
[2020-03-09] MEDS: Levothyroxine Sodium 125 MCG TAB PO SCH (05:50)
[2020-03-09] MEDS: Mometasone 200 MCG/Formoterol 5 MCG 120 PUFF INHALER INH SCH ×2 (06:55→18:10)
[2020-03-09] MEDS: Budesonide 0.25 MG/2 ML NEB INH SCH ×2 (06:57→18:10)
[2020-03-09] MEDS: FLUoxetine HCl 20 MG CAP PO SCH (09:41)
[2020-03-09] MEDS: Cholecalciferol (Vitamin D3) 400 UNITS TAB PO SCH (09:41)
[2020-03-09] MEDS: Apixaban 2.5 MG TAB PO SCH ×2 (09:41→20:46)
[2020-03-09] MEDS: Aspirin 300 MG Suppository PR SCH (09:42)
[2020-03-09] MEDS: Multivitamin W/ Minerals 1 TAB PO SCH (09:42)
[2020-03-09] MEDS: Amiodarone 200 MG TAB PO SCH (09:42)
[2020-03-09] MEDS: Gabapentin 300 MG CAP PO SCH ×2 (09:43→20:46)
--- NOTE | 2020-03-09 11:34 | PRG ---
DATE OF SERVICE: 03/09/2020 SUBJECTIVE: The patient is lying in bed comfortably. Her is at bedside. OBJECTIVE: VITAL SIGNS: Temperature 98.5, pulse 105, respirations 15, O2 sat 94%, and blood pressure 143/91. HEENT: Unremarkable. NECK: No adenopathy or JVD. LUNGS: Clear anteriorly. CARDIAC: S1 and S2. Regular. ABDOMEN: Soft. EXTREMITIES: No edema. ASSESSMENT: 1. Recurrent aspiration pneumonia. 2. Oropharyngeal dysfunction. PLAN: I had a talk with both of them about feeding tube placement. I do not see any medical therapy that is going to keep her from having repetitive aspiration events. I told them that continuing on the same course is not hsieh as she will be continually admitted to the hospital with current symptoms. I see 2 choices, feeding tube or hospice care. I will leave it up to those 2 to talk about it. Job ID: [id number]
[2020-03-09] MEDS: Potassium Chloride 20 MEQ TAB PO SCH (11:51)
--- NOTE | 2020-03-09 12:49 | PDOC.HOSPP ---
- Subjective Encounter Date: 03/09/20 Encounter Time: 10:20 Subjective: she is tachycardic, IVF running, and she has dept edema in her hands; sitting in the bed, spouse at bedside. Does not seem to be receptive for PEG tube, when we ready to discharge, they prefer to go home. Has prior HHC. - Objective Vital Signs & Weight: Vital Signs (12 hours) Temp Pulse Resp BP Pulse Ox 03/09/20 07:48 98.5 F 105 H 15 143/91 H 94 L 03/09/20 03:54 98.3 F 107 H 18 149/91 H 95 Weight Weight 201 lb 0.985 oz Most Recent Monitor Data Heart Rate from ECG 100 NIBP 116/68 NIBP BP-Mean 84 Respiration from ECG 29 SpO2 100 I&O: 03/08/20 03/09/20 03/10/20 06:59 06:59 06:59 Intake Total 1350 Output Total 1 1 Balance 1350 -1 -1 Result Diagrams: 03/08/20 06:18 03/08/20 06:18 Hospitalist ROS - Medication Medications: Active Medications Generic Name Dose Route Start Last Admin Trade Name Freq PRN Reason Stop Dose Admin Amiodarone HCl 100 mg 03/08/20 09:00 03/09/20 09:42 Cordarone PO 100 mg DAILY JERMAINE Administration Apixaban 2.5 mg 03/07/20 21:00 03/09/20 09:41 Eliquis PO 2.5 mg BID JERMAINE Administration Aspirin 300 mg 03/07/20 09:00 03/09/20 09:42 Aspirin NM 300 mg DAILY JERMAINE Administration Atorvastatin Calcium 10 mg 03/07/20 21:00 03/08/20 20:28 Lipitor PO 10 mg HS JERMAINE Administration Budesonide 0.25 mg 03/07/20 18:30 03/09/20 06:57 Pulmicort Neb Solution INH Not Given BID-RT JERMAINE Cholecalciferol 400 units 03/08/20 09:00 03/09/20 09:41 Vitamin D PO 400 units DAILY JERMAINE Administration Fluoxetine HCl 30 mg 03/08/20 09:00 03/09/20 09:41 Prozac PO 30 mg DAILY JERMAINE Administration Gabapentin 1,200 mg 03/07/20 21:00 03/09/20 09:43 Neurontin PO 1,200 mg 899,2099 JERMAINE Administration Cefepime HCl 2 gm/ Sodium 100 mls @ 200 mls/hr 03/07/20 21:00 03/08/20 20:28 Chloride IVPB 100 mls 2100 JERMAINE Administration Iron/Minerals/Multivitamins 1 tab 03/08/20 09:00 03/09/20 09:42 Theragran M PO 1 tab DAILY JERMAINE Administration Levothyroxine Sodium 125 mcg 03/08/20 06:00 03/09/20 05:50 Synthroid PO 125 mcg 0600 JERMAINE Administration Mometasone Furoate/Formoterol Fumar 2 puff 03/07/20 18:30 03/09/20 06:55 Dulera 200 Mcg/5 Mcg Inhaler INH 2 puff BID-RT JERMAINE Administration Potassium Chloride 20 meq 03/08/20 12:00 03/09/20 11:51 K-Dur PO 03/09/20 13:00 20 meq 1200 JERMAINE Administration - Exam General Appearance: NAD, awake alert ENT: normocephalic atraumatic, moist mucosa Neck: supple, no lymphadenopathy Heart: normal peripheral pulses Heart - other findings: tachycardic Respiratory: CTAB, normal chest expansion Gastrointestinal: soft, normal bowel sounds Extremities: 1+ LE edema Neurological: no focal deficits Hosp A/P - Plan Sepsis secondary to aspiration pneumonia - s/p IV vancomycin and cefepime. - continue cefepime. - pt recently discharged on clindamycin during last admission. Admission prior to that was discharged on doxycycline - palliative care consult --known to be non-compliant w.. diet -ST ok w.. continuing pureed and honey nectar, which started on . Atrial fibrillation - continue amiodarone and eliquis -rate is not contr'd w.. 100mg PO amiod --given reduced EF, and tachycardia, started on coreg low dose as well. 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 PE - continue eliquis Hypothyroidism - continue levothyroxine COPD - resume home inhalers Dysphagia - speech therapy consulted. Patient during previous admissions was noncompliant with diet suggested by speech, thereby causing recurrent aspiration -ST ok w.. continuing pureed and honey nectar, which started . -pt and spouse prefer not to go through PEG at this time and they want to think about it. once medically stable and ready to dc, they prefer to go home, possibly w.. renewed [facility]. DNAR
[2020-03-09] MEDS: Carvedilol 6.25 MG TAB PO SCH (17:30)
[2020-03-09] MEDS: Cefepime 2 GM in Sodium Chloride 0.9% 100 ML IVPB SCH (20:46)
[2020-03-09] MEDS: Atorvastatin Calcium 10 MG TAB PO SCH (20:46)
[2020-03-09] MEDS: Acetaminophen 325 MG TAB PO PRN (20:46)
[2020-03-10] MEDS: Levothyroxine Sodium 125 MCG TAB PO SCH (06:01)
[2020-03-10] MEDS: Budesonide 0.25 MG/2 ML NEB INH SCH ×2 (06:56→17:48)
[2020-03-10] MEDS: Mometasone 200 MCG/Formoterol 5 MCG 120 PUFF INHALER INH SCH ×2 (06:59→17:49)
[2020-03-10] MEDS: Cholecalciferol (Vitamin D3) 400 UNITS TAB PO SCH (07:59)
[2020-03-10] MEDS: Gabapentin 300 MG CAP PO SCH ×2 (07:59→20:43)
[2020-03-10] MEDS: Torsemide 20 MG TAB PO SCH (07:59)
[2020-03-10] MEDS: Carvedilol 6.25 MG TAB PO SCH ×2 (08:00→17:03)
[2020-03-10] MEDS: FLUoxetine HCl 20 MG CAP PO SCH (08:02)
[2020-03-10] MEDS: Multivitamin W/ Minerals 1 TAB PO SCH (08:02)
[2020-03-10] MEDS: Aspirin 300 MG Suppository PR SCH (08:03)
[2020-03-10] MEDS: Amiodarone 200 MG TAB PO SCH (08:03)
[2020-03-10] MEDS: Apixaban 2.5 MG TAB PO SCH ×2 (08:03→20:42)
--- NOTE | 2020-03-10 09:27 | PRG ---
DATE OF SERVICE: 03/10/2020 SUBJECTIVE: This morning, she is awake, alert, and responsive. is at the bedside. OBJECTIVE: VITAL SIGNS: Temperature 98, pulse 111, respirations 20, saturations 90% on 2 L. CHEST: No rhonchi or crackles. CARDIAC: Normal S1 and S2. No gallops. ABDOMEN: No masses. 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 I had a lengthy discussion with the . She wants to go home. Additionally, they do not want hospice. This is recurrent problem. I see no significant input at this time. She has mild cardiac dysfunction. I think she is going to keep coming back to the hospital irrespective of what we do until she has hospice input. I would avoid giving antibiotics at this stage. White count is normal. Job ID: [id number]
[2020-03-10] MEDS: Acetaminophen 325 MG TAB PO PRN ×2 (10:14→17:03)
--- NOTE | 2020-03-10 12:37 | PDOC.CPN ---
- Subjective Date: 03/10/20 Time: 12:47 Interval history: The pt seen and examined. No overnight events. No cardiac complaints - Objective Allergies/Adverse Reactions: Allergies Allergy/AdvReac Type Severity Reaction Status Date / Time erythromycin base Allergy Verified 03/07/20 00:29 [From Erythrocin] erythromycin lactobionate Allergy Verified 03/07/20 00:29 [From Erythrocin] Latex, Natural Rubber Allergy Rash Verified 03/07/20 00:29 metolazone [Metolazone] Allergy Verified 03/07/20 00:29 nalbuphine Allergy Verified 03/07/20 00:29 nalbuphine HCl [From Nubain] Allergy Verified 03/07/20 00:29 oxycodone Allergy Verified 03/07/20 00:29 oxycodone HCl Allergy Rash Verified 03/07/20 00:29 [From OxyContin] potassium clavulanate Allergy Diarrhea Verified 03/07/20 00:29 [From Augmentin] zolpidem Allergy Verified 03/07/20 00:29 tramadol [From Ultram] AdvReac Intermediate Verified 03/07/20 00:29 zolpidem tartrate AdvReac Intermediate "crazy" Verified 03/07/20 00:29 [From Ambien] fentanyl [From Duragesic] AdvReac Mild Anxiety Verified 03/07/20 00:29 Visit Medications: Current Medications Acetaminophen (Tylenol) 650 mg PO Q6H PRN PRN Reason: Pain Last Admin: 03/10/20 10:14 Dose: 650 mg Amiodarone HCl (Cordarone) 100 mg PO DAILY [facility] Last Admin: 03/10/20 08:03 Dose: 100 mg Apixaban (Eliquis) 2.5 mg PO BID [facility] Last Admin: 03/10/20 08:03 Dose: 2.5 mg Aspirin (Aspirin) 300 mg [place] DAILY [facility] Last Admin: 03/10/20 08:03 Dose: 300 mg Atorvastatin Calcium (Lipitor) 10 mg PO HS [facility] Last Admin: 03/09/20 20:46 Dose: 10 mg Budesonide (Pulmicort Neb Solution) 0.25 mg INH BID-RT [facility] Last Admin: 03/10/20 06:56 Dose: 0.25 mg Carvedilol (Coreg) 12.5 mg PO BID-WM [facility] Carvedilol (Coreg) 6.25 mg PO ONE [facility] Cholecalciferol (Vitamin D) 400 units PO DAILY [facility] Last Admin: 03/10/20 07:59 Dose: 400 units Fluoxetine HCl (Prozac) 30 mg PO DAILY [facility] Last Admin: 03/10/20 08:02 Dose: 30 mg Gabapentin (Neurontin) 1,200 mg PO 0900,2100 [facility] Last Admin: 03/10/20 07:59 Dose: 1,200 mg Gabapentin (Neurontin) 600 mg PO 1200 PRN PRN Reason: DIRECTED Guaifenesin (Mucinex) 600 mg PO Q12HR PRN PRN Reason: Cough Iron/Minerals/Multivitamins (Theragran M) 1 tab PO DAILY [facility] Last Admin: 03/10/20 08:02 Dose: 1 tab Levothyroxine Sodium (Synthroid) 125 mcg PO 0600 [facility] Last Admin: 03/10/20 06:01 Dose: 125 mcg Mometasone Furoate/Formoterol Fumar (Dulera 200 Mcg/5 Mcg Inhaler) 2 puff INH BID-RT [facility] Last Admin: 03/10/20 06:59 Dose: 2 puff Sodium Chloride (Flush - Normal Saline) 10 ml IVF PRN PRN PRN Reason: Saline Flush Torsemide (Demadex) 20 mg PO DAILY [facility] Last Admin: 03/10/20 07:59 Dose: 20 mg Vital Signs & Weight: Vital Signs Temp Pulse Resp BP BP Pulse Ox 03/10/20 08:00 98.6 F 111 H 20 166/89 H 92 L 03/10/20 06:56 112 H 20 88 L 03/10/20 03:27 99.8 F H 110 H 18 169/95 H 92 L Weight 201 lb 0.985 oz - Physical Exam General: alert & oriented x3, other (lethergic) HEENT: mucus membranes moist Neck: supple neck Cardiac: regular rate and rhythm Lungs: decreased breath sounds - Labs Result Diagrams: 03/08/20 06:18 03/08/20 06:18 Troponin/CKMB CK-MB (CK-2) 0.7 ng/mL (0-6.6) 03/06/20 21:01 Troponin I 0.264 ng/mL (< 0.028) H 03/07/20 06:09 - Assessment/Plan Assessment/Plan: 1. Recurrent aspiration PNA 2/2 Dysphagia and non-compliant with her diet suggestion - the pt cont. refusing PEG tube placement 2. Type 2 NSTEMI 2/2 repeat aspiration PNA ; not good candidate for further cardiac workup 3. Parox Afib - will increase Coreg to 12.5mg BID; On Amiodarone 100mg qd and Eliquis 2.5mg BID 4. HTN - will increase Coreg to 12.5mg BID 5. Chronic combined HF - 6. COPD 7. PE 8. Hypothyroidism - continue levothyroxine MAR reviewed * Echo in 02/2020 with EF 40-45%, grade III dd, akinetic septum, mild LAE, trace MR and mild TR * DNAR Pt. seen and evaluated by me. She is feeling a little better but eating very little. She is mildly tachycardic. She denies any cardiac symptoms. Agree with the A/P by the HORSE RIDING COACH OR INSTRUCTOR. I would continue to increase betablockers to control the HR and BP. [email or web address]
[2020-03-10] MEDS ORDERED: Carvedilol 6.25 MG TAB PO SCH (12:45)
--- NOTE | 2020-03-10 13:56 | PDOC.HOSPP ---
- Subjective Encounter Date: 03/10/20 Encounter Time: 10:20 Subjective: pt somnolent today, tachycardia, mouth breather, d/w spouse at bedside. 12 lead EKG shows sinus tachy, persistent tachy for the last 2 days, started on coreg yesterday; pt is urine incontinent, talk to the nurse, will place the navarrete. - Objective Vital Signs & Weight: Vital Signs (12 hours) Temp Pulse Resp BP BP Pulse Ox 03/10/20 08:00 98.6 F 111 H 20 166/89 H 92 L 03/10/20 06:56 112 H 20 88 L 03/10/20 03:27 99.8 F H 110 H 18 169/95 H 92 L Weight Weight 201 lb 0.985 oz Most Recent Monitor Data Heart Rate from ECG 100 NIBP 116/68 NIBP BP-Mean 84 Respiration from ECG 29 SpO2 100 I&O: 03/09/20 03/10/20 03/11/20 06:59 06:59 06:59 Intake Total 1150 Output Total 1 1 Balance -1 1149 Result Diagrams: 03/08/20 06:18 03/08/20 06:18 Additional Labs: Accuchecks 03/09/20 15:23 POC Glucose 141 H Hospitalist ROS - Medication Medications: Active Medications Generic Name Dose Route Start Last Admin Trade Name Freq PRN Reason Stop Dose Admin Acetaminophen 650 mg 03/07/20 12:41 03/10/20 10:14 Tylenol PO 650 mg Q6H PRN Administration Pain Amiodarone HCl 100 mg 03/08/20 09:00 03/10/20 08:03 Cordarone PO 100 mg DAILY JERMAINE Administration Apixaban 2.5 mg 03/07/20 21:00 03/10/20 08:03 Eliquis PO 2.5 mg BID JERMAINE Administration Aspirin 300 mg 03/07/20 09:00 03/10/20 08:03 Aspirin [place] 300 mg DAILY JERMAINE Administration Atorvastatin Calcium 10 mg 03/07/20 21:00 03/09/20 20:46 Lipitor PO 10 mg HS JERMAINE Administration Budesonide 0.25 mg 03/07/20 18:30 03/10/20 06:56 Pulmicort Neb Solution INH 0.25 mg BID-RT JERMAINE Administration Cholecalciferol 400 units 03/08/20 09:00 03/10/20 07:59 Vitamin D PO 400 units DAILY JERMAINE Administration Fluoxetine HCl 30 mg 03/08/20 09:00 03/10/20 08:02 Prozac PO 30 mg DAILY JERMAINE Administration Gabapentin 1,200 mg 03/07/20 21:00 03/10/20 07:59 Neurontin PO 1,200 mg 0900,2100 JERMAINE Administration Iron/Minerals/Multivitamins 1 tab 03/08/20 09:00 03/10/20 08:02 Theragran M PO 1 tab DAILY JERMAINE Administration Levothyroxine Sodium 125 mcg 03/08/20 06:00 03/10/20 06:01 Synthroid PO 125 mcg 0600 JERMAINE Administration Mometasone Furoate/Formoterol Fumar 2 puff 03/07/20 18:30 03/10/20 06:59 Dulera 200 Mcg/5 Mcg Inhaler INH 2 puff BID-RT JERMAINE Administration Torsemide 20 mg 03/10/20 09:00 03/10/20 07:59 Demadex PO 20 mg DAILY JERMAINE Administration - Exam General Appearance: ill appearing Eye: PERRL ENT: normocephalic atraumatic Neck: supple Heart: RRR Respiratory: CTAB, normal chest expansion Gastrointestinal: soft, normal bowel sounds Extremities: 1+ LE edema Neurological: no focal deficits Psychiatric: somnolent, lethargic Hosp A/P - Plan Sepsis secondary to aspiration pneumonia - s/p IV vancomycin and cefepime. - continue cefepime. - pt recently discharged on clindamycin during last admission. Admission prior to that was discharged on doxycycline - palliative care consult --known to be non-compliant w.. diet -ST ok w.. continuing pureed and honey nectar, which started on . Atrial fibrillation, paroxysmal, lately converted to sinus rhythm. - continue amiodarone and eliquis -rate is not contr'd w.. 100mg PO amiod --given reduced EF, and tachycardia, started on coreg low dose as well. 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 Urine incontinence --navarrete placement --strict in/output and wts daily. Hx of PE - continue eliquis Hypothyroidism - continue levothyroxine COPD - resume home inhalers Dysphagia - speech therapy consulted. Patient during previous admissions was noncompliant with diet suggested by speech, thereby causing recurrent aspiration -ST ok w.. continuing pureed and honey nectar, which started . -pt and spouse prefer not to go through PEG at this time and they want to think about it. once medically stable and ready to dc, they prefer to go home, possibly w.. renewed HHC. DNAR 1st
[2020-03-10] MEDS: cefTRIAXone\\ROCEPHIN 1 GM in Sodium Chloride 0.9% 100 ML IVPB SCH (15:21)
[2020-03-10 15:47] LABS: Bilirubin Negative (Negative); Blood, Urine 1+ (Negative); Clarity Turbid (Clear); Glucose, Urine (Dipstick) Normal (Negative); Leukocyte 500 Leu/uL (Negative); Nitrite Negative (Negative); Protein, Urine (Dipstick) 50 mg/dL (Neg-Trace); Squamous Epithelial None Seen HPF (0-3); Urobilinogen Normal mg/dL (Less than 2); WBC/HPF Greater than 50 HPF (0-3); Yeast-Budding Rare HPF (None Seen)
[2020-03-10 15:57] LABS: Bacteria/HPF 1+ HPF (None Seen)
[2020-03-10 15:58] LABS: Urine Culture Reflex Yes Yes
[2020-03-10] MEDS: Atorvastatin Calcium 10 MG TAB PO SCH (20:43)
[2020-03-10] MEDS: ALPRAZolam 0.25 MG TAB PO SCH (21:29)
[2020-03-11] MEDS: Levothyroxine Sodium 125 MCG TAB PO SCH (05:17)
[2020-03-11 05:29] LABS: #Basophils 0.1 thou/uL (0.0-0.2); #Eosinphils 0.2 thou/uL (0.0-0.7); #Lymphocytes 1.4 thou/uL (1.20-3.40); #Monocytes 1.1 thou/uL (0.11-0.59); #Neutrophils 7.7 thou/uL (1.40-6.50); %Basophils 0.9 % (0.0-1.0); %Eosinophils 1.9 % (0.0-10.0); %Lymphocytes 13.6 % (21.0-51.0); %Monocytes 10.4 % (0.0-10.0); %Neutrophils 73.2 % (42.0-75.0); Hemoglobin 9.1 g/dL (12.0-16.0); Mean Corpuscular HGB CONC 32.7 g/dL (32.0-36.0); Mean Corpuscular Hemoglobin 29.7 pg (27.0-31.0); Mean Corpuscular Volume 90.8 fL (78.0-98.0); Mean Platelet Volume 7.4 fL (7.4-10.4); Platelet Count 369 thou/uL (130-400); RBC Distribution Width 15.2 % (11.5-14.5); Red Blood Cell (RBC) Count 3.08 mill/uL (4.20-5.40); White Blood Cell (WBC) Count 10.5 thou/uL (4.8-10.8)
[2020-03-11] MEDS: Acetaminophen 325 MG TAB PO PRN ×3 (05:29→23:07)
[2020-03-11] MEDS: Mometasone 200 MCG/Formoterol 5 MCG 120 PUFF INHALER INH SCH ×2 (06:32→17:43)
[2020-03-11] MEDS: Budesonide 0.25 MG/2 ML NEB INH SCH ×2 (06:33→17:42)
[2020-03-11] MEDS: Torsemide 20 MG TAB PO SCH (08:19)
[2020-03-11] MEDS: Cholecalciferol (Vitamin D3) 400 UNITS TAB PO SCH (08:19)
[2020-03-11] MEDS: Amiodarone 200 MG TAB PO SCH (08:19)
[2020-03-11] MEDS: Apixaban 2.5 MG TAB PO SCH ×2 (08:20→21:26)
[2020-03-11] MEDS: Carvedilol 6.25 MG TAB PO SCH ×2 (08:20→15:10)
[2020-03-11] MEDS: Multivitamin W/ Minerals 1 TAB PO SCH (08:20)
[2020-03-11] MEDS: Gabapentin 300 MG CAP PO SCH ×2 (08:21→21:00)
[2020-03-11] MEDS: FLUoxetine HCl 20 MG CAP PO SCH (08:21)
--- NOTE | 2020-03-11 09:04 | PRG ---
DATE OF SERVICE: 03/11/2020 SUBJECTIVE: An 80-year-old female this morning is awake, alert, and responsive. OBJECTIVE: VITAL SIGNS: Temperature 98, blood pressure 115/95, respiratory rate 18, O2 saturation 100% on 4 L. GENERAL: She is awake, responsive. She is going to eat her breakfast. CHEST: No wheezing or crackles. CARDIAC: Normal S1, S2. No gallops. ABDOMEN: Soft. ASSESSMENT: Recurrent aspiration, marked deconditioning, bedridden, congestive heart failure, cardiac arrhythmias. Pulmonary hsieh, she is relatively stable. PLAN: She can be discharged home any time. She is a DNR, but does not want any hospice care. Job ID: [id number]
--- NOTE | 2020-03-11 13:30 | PDOC.HOSPP ---
- Subjective Encounter Date: 03/11/20 Encounter Time: 10:40 Subjective: she is more alert today, feels that she has good and bad days at home also. pULse < 100 today, ua shows sig.. infn.. william neg x 24hrs - Objective Vital Signs & Weight: Vital Signs (12 hours) Temp Pulse Resp BP BP Pulse Ox 03/11/20 11:47 98.6 F 85 18 143/78 H 89 L 03/11/20 08:20 153/95 H 03/11/20 07:20 98.4 F 105 H 18 153/95 H 94 L 03/11/20 06:35 92 L 03/11/20 06:33 98 22 H 92 L Weight Weight 212 lb 3 oz Most Recent Monitor Data Heart Rate from ECG 100 NIBP 116/68 NIBP BP-Mean 84 Respiration from ECG 29 SpO2 100 I&O: 03/10/20 03/11/20 03/12/20 06:59 06:59 06:59 Intake Total 1150 500 Output Total 1 450 Balance 1149 50 Result Diagrams: 03/11/20 05:13 03/08/20 06:18 Hospitalist ROS - Medication Medications: Active Medications Generic Name Dose Route Start Last Admin Trade Name Freq PRN Reason Stop Dose Admin Acetaminophen 650 mg 03/07/20 12:41 03/11/20 05:29 Tylenol PO 650 mg Q6H PRN Administration Pain Alprazolam 0.25 mg 03/10/20 21:00 03/10/20 21:29 Xanax PO 0.25 mg HS JERMAINE Administration Amiodarone HCl 100 mg 03/08/20 09:00 03/11/20 08:19 Cordarone PO 100 mg DAILY JERMAINE Administration Apixaban 2.5 mg 03/07/20 21:00 03/11/20 08:20 Eliquis PO 2.5 mg BID JERMAINE Administration Atorvastatin Calcium 10 mg 03/07/20 21:00 03/10/20 20:43 Lipitor PO 10 mg HS JERMAINE Administration Budesonide 0.25 mg 03/07/20 18:30 03/11/20 06:33 Pulmicort Neb Solution INH 0.25 mg BID-RT JERMAINE Administration Carvedilol 12.5 mg 03/10/20 17:00 03/11/20 08:20 Coreg PO 12.5 mg BID-WM JERMAINE Administration Cholecalciferol 400 units 03/08/20 09:00 03/11/20 08:19 Vitamin D PO 400 units DAILY JERMAINE Administration Fluoxetine HCl 30 mg 03/08/20 09:00 03/11/20 08:21 Prozac PO 30 mg DAILY JERMAINE Administration Gabapentin 1,200 mg 03/07/20 21:00 03/11/20 08:21 Neurontin PO 1,200 mg 0900,2100 JERMAINE Administration Ceftriaxone Sodium 1 gm/ 100 mls @ 200 mls/hr 03/10/20 14:00 03/10/20 15:21 Sodium Chloride IVPB 100 mls Q24HR JERMAINE Administration Iron/Minerals/Multivitamins 1 tab 03/08/20 09:00 03/11/20 08:20 Theragran M PO 1 tab DAILY JERMAINE Administration Levothyroxine Sodium 125 mcg 03/08/20 06:00 03/11/20 05:17 Synthroid PO 125 mcg 0600 JERMAINE Administration Mometasone Furoate/Formoterol Fumar 2 puff 03/07/20 18:30 03/11/20 06:32 Dulera 200 Mcg/5 Mcg Inhaler INH 2 puff BID-RT JERMAINE Administration Torsemide 20 mg 03/10/20 09:00 03/11/20 08:19 Demadex PO 20 mg DAILY JERMAINE Administration - Exam General Appearance: awake alert Eye: PERRL ENT: normocephalic atraumatic Neck: supple Heart: RRR, normal peripheral pulses Respiratory: CTAB, normal chest expansion Gastrointestinal: soft, normal bowel sounds Extremities: 1+ LE edema Neurological: no new deficit Psychiatric: A&O x 3 Hosp A/P - Plan Sepsis secondary to aspiration pneumonia - s/p IV vancomycin and cefepime. - continue cefepime. - pt recently discharged on clindamycin during last admission. Admission prior to that was discharged on doxycycline - palliative care consult --known to be non-compliant w.. diet -ST ok w.. continuing pureed and honey nectar, which started on . Atrial fibrillation, paroxysmal, lately converted to sinus rhythm. - continue amiodarone and eliquis -rate is not contr'd w.. 100mg PO amiod --given reduced EF, and tachycardia, started on coreg low dose as well. 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 Urine incontinence --navarrete placement --strict in/output and wts daily. Hx of PE - continue eliquis Hypothyroidism - continue levothyroxine COPD - resume home inhalers Dysphagia - speech therapy consulted. Patient during previous admissions was noncompliant with diet suggested by speech, thereby causing recurrent aspiration -ST ok w.. continuing pureed and honey nectar, which started . -pt and spouse prefer not to go through PEG at this time and they want to think about it. once medically stable and ready to dc, they prefer to go home, possibly w.. renewed HHC. DNAR pULse < 100 today, UTI -- ua shows sig.. infn.. william neg x 24hrs -wait another day, if con'd to be neg, then PO abx, and home w.. HHC.
[2020-03-11] MEDS: cefTRIAXone\\ROCEPHIN 1 GM in Sodium Chloride 0.9% 100 ML IVPB SCH (14:12)
--- NOTE | 2020-03-11 16:31 | PDOC.CPN ---
- Subjective Date: 03/11/20 Time: 09:00 Interval history: The pt seen and examined. No overnight events. No cardiac complaints. - Objective Allergies/Adverse Reactions: Allergies Allergy/AdvReac Type Severity Reaction Status Date / Time erythromycin base Allergy Verified 03/07/20 00:29 [From Erythrocin] erythromycin lactobionate Allergy Verified 03/07/20 00:29 [From Erythrocin] Latex, Natural Rubber Allergy Rash Verified 03/07/20 00:29 metolazone [Metolazone] Allergy Verified 03/07/20 00:29 nalbuphine Allergy Verified 03/07/20 00:29 nalbuphine HCl [From Nubain] Allergy Verified 03/07/20 00:29 oxycodone Allergy Verified 03/07/20 00:29 oxycodone HCl Allergy Rash Verified 03/07/20 00:29 [From OxyContin] potassium clavulanate Allergy Diarrhea Verified 03/07/20 00:29 [From Augmentin] zolpidem Allergy Verified 03/07/20 00:29 tramadol [From Ultram] AdvReac Intermediate Verified 03/07/20 00:29 zolpidem tartrate AdvReac Intermediate "crazy" Verified 03/07/20 00:29 [From Ambien] fentanyl [From Duragesic] AdvReac Mild Anxiety Verified 03/07/20 00:29 Visit Medications: Current Medications Acetaminophen (Tylenol) 650 mg PO Q6H PRN PRN Reason: Pain Last Admin: 03/11/20 15:09 Dose: 650 mg Alprazolam (Xanax) 0.25 mg PO HS [facility] Last Admin: 03/10/20 21:29 Dose: 0.25 mg Amiodarone HCl (Cordarone) 100 mg PO DAILY [facility] Last Admin: 03/11/20 08:19 Dose: 100 mg Apixaban (Eliquis) 2.5 mg PO BID [facility] Last Admin: 03/11/20 08:20 Dose: 2.5 mg Atorvastatin Calcium (Lipitor) 10 mg PO HS [facility] Last Admin: 03/10/20 20:43 Dose: 10 mg Budesonide (Pulmicort Neb Solution) 0.25 mg INH BID-RT [facility] Last Admin: 03/11/20 06:33 Dose: 0.25 mg Carvedilol (Coreg) 12.5 mg PO BID-[facility] Last Admin: 03/11/20 15:10 Dose: 12.5 mg Cholecalciferol (Vitamin D) 400 units PO DAILY [facility] Last Admin: 03/11/20 08:19 Dose: 400 units Fluoxetine HCl (Prozac) 30 mg PO DAILY [facility] Last Admin: 03/11/20 08:21 Dose: 30 mg Gabapentin (Neurontin) 1,200 mg PO 0900,2100 [facility] Last Admin: 03/11/20 08:21 Dose: 1,200 mg Gabapentin (Neurontin) 600 mg PO 1200 PRN PRN Reason: DIRECTED Guaifenesin (Mucinex) 600 mg PO Q12HR PRN PRN Reason: Cough Ceftriaxone Sodium 1 gm/ (Sodium Chloride) 100 mls @ 200 mls/hr IVPB Q24HR [facility] Last Admin: 03/11/20 14:12 Dose: 100 mls Iron/Minerals/Multivitamins (Theragran M) 1 tab PO DAILY [facility] Last Admin: 03/11/20 08:20 Dose: 1 tab Levothyroxine Sodium (Synthroid) 125 mcg PO 0600 [facility] Last Admin: 03/11/20 05:17 Dose: 125 mcg Mometasone Furoate/Formoterol Fumar (Dulera 200 Mcg/5 Mcg Inhaler) 2 puff INH BID-RT [facility] Last Admin: 03/11/20 06:32 Dose: 2 puff Sodium Chloride (Flush - Normal Saline) 10 ml IVF PRN PRN PRN Reason: Saline Flush Torsemide (Demadex) 20 mg PO DAILY [facility] Last Admin: 03/11/20 08:19 Dose: 20 mg Vital Signs & Weight: Vital Signs Temp Pulse Resp BP BP Pulse Ox 03/11/20 15:10 154/82 H 03/11/20 15:09 98.5 F 94 19 154/82 H 89 L 03/11/20 11:47 98.6 F 85 18 143/78 H 89 L 03/11/20 08:20 153/95 H 03/11/20 07:20 98.4 F 105 H 18 153/95 H 94 L 03/11/20 06:35 92 L 03/11/20 06:33 98 22 H 92 L Weight 212 lb 3 oz - Physical Exam General: alert & oriented x3 HEENT: mucus membranes moist Neck: supple neck Cardiac: regular rate and rhythm Lungs: decreased breath sounds Neuro: cranial nerve 2-12 intact - Labs Result Diagrams: 03/11/20 05:13 03/08/20 06:18 Troponin/CKMB CK-MB (CK-2) 0.7 ng/mL (0-6.6) 03/06/20 21:01 Troponin I 0.264 ng/mL (< 0.028) H 03/07/20 06:09 - Assessment/Plan Assessment/Plan: 1. Recurrent aspiration PNA 2/2 Dysphagia and non-compliant with her diet suggestion - the pt cont. refusing PEG tube placement 2. Type 2 NSTEMI 2/2 repeat aspiration PNA - not good candidate for further cardiac workup 3. Parox Afib - HR has been stable with Coreg 12.5mg BID, Amiodarone 100mg qd and Eliquis 2.5mg BID 4. HTN - stable with current med 5. Chronic combined HF - stable; on Coreg, not on BOBBI/ARB due to CKD 6. COPD - O2 sat has been 89-90s% 7. PE - on Eliquis 2.5mg BID 8. Hypothyroidism - continue levothyroxine MAR reviewed * Echo in 02/2020 with EF 40-45%, grade III dd, akinetic septum, mild LAE, trace MR and mild TR * DNAR * from cardiac standpoint, the pt is stable to d/c. The pt will f/u with Dr Lino' office in 2 wks. I agree with the above assessment/plan by the PEDIATRIC NEUROPSYCHOLOGIST. The tachycardia has improved with increased dose of Coreg. She seems to be tolerating the medication thus far.. The BP is still on the high side and the coreg could be increased to 25mg bid if the BP is not decreased over the next 1-2 days. agus
[2020-03-11] MEDS: ALPRAZolam 0.25 MG TAB PO SCH (21:26)
[2020-03-11] MEDS: Atorvastatin Calcium 10 MG TAB PO SCH (21:27)
[2020-03-12 05:27] LABS: #Basophils 0.1 thou/uL (0.0-0.2); #Eosinphils 0.4 thou/uL (0.0-0.7); #Lymphocytes 1.8 thou/uL (1.20-3.40); #Monocytes 0.9 thou/uL (0.11-0.59); #Neutrophils 4.2 thou/uL (1.40-6.50); %Eosinophils 5.7 % (0.0-10.0); %Lymphocytes 24.4 % (21.0-51.0); %Neutrophils 56.9 % (42.0-75.0); Hemoglobin 8.9 g/dL (12.0-16.0); Mean Corpuscular HGB CONC 32.7 g/dL (32.0-36.0); Mean Corpuscular Hemoglobin 29.9 pg (27.0-31.0); Mean Corpuscular Volume 91.7 fL (78.0-98.0); Mean Platelet Volume 7.4 fL (7.4-10.4); Platelet Count 347 thou/uL (130-400); RBC Distribution Width 15.1 % (11.5-14.5); Red Blood Cell (RBC) Count 2.98 mill/uL (4.20-5.40); White Blood Cell (WBC) Count 7.4 thou/uL (4.8-10.8)
[2020-03-12 05:47] LABS: Anion Gap 14 mmol/L (10-20); BUN (Urea Nitrogen) 20 mg/dL (9.8-20.1); Calc. Creatinine Clearance 49 mL/min (70-130); Calcium 7.9 mg/dL (7.8-10.44); Carbon Dioxide 25 mmol/L (23-31); Chloride 97 mmol/L (98-107); Estimated GFR-MDRD 37; Glucose 95 mg/dL (83-110); Potassium 3.2 mmol/L (3.5-5.1); Sodium 133 mmol/L (136-145)
[2020-03-12] MEDS: Levothyroxine Sodium 125 MCG TAB PO SCH (06:19)
[2020-03-12] MEDS: Mometasone 200 MCG/Formoterol 5 MCG 120 PUFF INHALER INH SCH (06:38)
[2020-03-12] MEDS: Budesonide 0.25 MG/2 ML NEB INH SCH (06:39)
[2020-03-12] MEDS ORDERED: Carvedilol 6.25 MG TAB PO SCH (07:45)
[2020-03-12] MEDS: Amiodarone 200 MG TAB PO SCH (08:39)
[2020-03-12] MEDS: Cholecalciferol (Vitamin D3) 400 UNITS TAB PO SCH (08:39)
[2020-03-12] MEDS: Apixaban 2.5 MG TAB PO SCH (08:40)
[2020-03-12] MEDS: Gabapentin 300 MG CAP PO SCH (08:40)
[2020-03-12] MEDS: Multivitamin W/ Minerals 1 TAB PO SCH (08:42)
[2020-03-12] MEDS: Torsemide 20 MG TAB PO SCH (08:42)
[2020-03-12] MEDS ORDERED: FLUoxetine HCl 10 MG CAP PO SCH (09:00)
--- NOTE | 2020-03-12 09:17 | PRG ---
DATE OF SERVICE: 03/12/2020 SUBJECTIVE: Cecilia Santizo this morning, she is much more awake, responsive. She wants to go home. OBJECTIVE: VITAL SIGNS: Temperature respirations 16, saturations are 96% on 4 L, blood pressure 158/89. CHEST: Minimal rhonchi, no wheezing. CARDIAC: Normal S1 and S2. No gallops. ABDOMEN: No masses. LABORATORY DATA: Creatinine 1.37, sodium 133, this is probably from the diuretic. White count is unremarkable. All cultures are negative. ASSESSMENT AND PLAN: I would discontinue antibiotics. No reason to suspect any obvious infection, chronic colonization, severe deconditioning, respiratory failure, mild congestive heart failure. Home. She is a DNR. Job ID: [id number]
[2020-03-12] MEDS: Carvedilol 6.25 MG TAB PO SCH (09:26)
[2020-03-12] MEDS: Acetaminophen 325 MG TAB PO PRN (09:55)
[2020-03-12] MEDS ORDERED: Potassium Chloride 20 MEQ TAB PO SCH (10:30)
--- NOTE | 2020-03-12 10:32 | PDOC.CPN ---
- Subjective Date: 03/12/20 Time: 08:00 Interval history: The pt seen and examined. No overnight events. No cardiac complaints. - Objective Allergies/Adverse Reactions: Allergies Allergy/AdvReac Type Severity Reaction Status Date / Time erythromycin base Allergy Verified 03/07/20 00:29 [From Erythrocin] erythromycin lactobionate Allergy Verified 03/07/20 00:29 [From Erythrocin] Latex, Natural Rubber Allergy Rash Verified 03/07/20 00:29 metolazone [Metolazone] Allergy Verified 03/07/20 00:29 nalbuphine Allergy Verified 03/07/20 00:29 nalbuphine HCl [From Nubain] Allergy Verified 03/07/20 00:29 oxycodone Allergy Verified 03/07/20 00:29 oxycodone HCl Allergy Rash Verified 03/07/20 00:29 [From OxyContin] potassium clavulanate Allergy Diarrhea Verified 03/07/20 00:29 [From Augmentin] zolpidem Allergy Verified 03/07/20 00:29 tramadol [From Ultram] AdvReac Intermediate Verified 03/07/20 00:29 zolpidem tartrate AdvReac Intermediate "crazy" Verified 03/07/20 00:29 [From Ambien] fentanyl [From Duragesic] AdvReac Mild Anxiety Verified 03/07/20 00:29 Visit Medications: Current Medications Acetaminophen (Tylenol) 650 mg PO Q6H PRN PRN Reason: Pain Last Admin: 03/12/20 09:55 Dose: 650 mg Alprazolam (Xanax) 0.25 mg PO HS [facility] Last Admin: 03/11/20 21:26 Dose: 0.25 mg Amiodarone HCl (Cordarone) 100 mg PO DAILY [facility] Last Admin: 03/12/20 08:39 Dose: 100 mg Apixaban (Eliquis) 2.5 mg PO BID [facility] Last Admin: 03/12/20 08:40 Dose: 2.5 mg Atorvastatin Calcium (Lipitor) 10 mg PO HS [facility] Last Admin: 03/11/20 21:27 Dose: 10 mg Budesonide (Pulmicort Neb Solution) 0.25 mg INH BID-RT [facility] Last Admin: 03/12/20 06:39 Dose: 0.25 mg Carvedilol (Coreg) 12.5 mg PO BID-[facility] Stop: 03/12/20 11:00 Last Admin: 03/12/20 09:26 Dose: 12.5 mg Carvedilol (Coreg) 25 mg PO BID [facility] Cholecalciferol (Vitamin D) 400 units PO DAILY [facility] Last Admin: 03/12/20 08:39 Dose: 400 units Fluoxetine HCl (Prozac) 30 mg PO DAILY [facility] Last Admin: 03/12/20 09:26 Dose: 30 mg Gabapentin (Neurontin) 1,200 mg PO 0900,2100 [facility] Last Admin: 03/12/20 08:40 Dose: 1,200 mg Gabapentin (Neurontin) 600 mg PO 1200 PRN PRN Reason: DIRECTED Guaifenesin (Mucinex) 600 mg PO Q12HR PRN PRN Reason: Cough Ceftriaxone Sodium 1 gm/ (Sodium Chloride) 100 mls @ 200 mls/hr IVPB Q24HR [facility] Last Admin: 03/11/20 14:12 Dose: 100 mls Iron/Minerals/Multivitamins (Theragran M) 1 tab PO DAILY [facility] Last Admin: 03/12/20 08:42 Dose: 1 tab Levothyroxine Sodium (Synthroid) 125 mcg PO 0600 [facility] Last Admin: 03/12/20 06:19 Dose: 125 mcg Mometasone Furoate/Formoterol Fumar (Dulera 200 Mcg/5 Mcg Inhaler) 2 puff INH BID-RT [facility] Last Admin: 03/12/20 06:38 Dose: 2 puff Potassium Chloride (K-Dur) 40 meq PO ONE [facility] Sodium Chloride (Flush - Normal Saline) 10 ml IVF PRN PRN PRN Reason: Saline Flush Torsemide (Demadex) 20 mg PO DAILY [facility] Last Admin: 03/12/20 08:42 Dose: 20 mg Vital Signs & Weight: Vital Signs Temp Pulse Resp BP BP Pulse Ox 03/12/20 09:26 158/89 H 03/12/20 09:00 96 03/12/20 08:39 158/89 H 03/12/20 07:19 98.0 F 72 16 158/89 H 96 03/12/20 06:41 97 03/12/20 06:39 86 20 97 Weight 209 lb 7.026 oz - Physical Exam General: other (alert and oriented to self and place; some confusion about situation) Neck: supple neck Cardiac: regular rate and rhythm Lungs: decreased breath sounds Extremities: other: (1-2 + pitting BLE edema) - Labs Result Diagrams: 03/12/20 05:11 03/12/20 05:11 Troponin/CKMB CK-MB (CK-2) 0.7 ng/mL (0-6.6) 03/06/20 21:01 Troponin I 0.264 ng/mL (< 0.028) H 03/07/20 06:09 - Assessment/Plan Assessment/Plan: 1. Recurrent aspiration PNA 2/2 Dysphagia and non-compliant with her diet suggestion - the pt cont. refusing PEG tube placement 2. Type 2 NSTEMI 2/2 repeat aspiration PNA - not good candidate for further cardiac workup 3. Parox Afib - HR has been stable with Amiodarone 100mg qd, Eliquis 2.5mg BID, and Coreg 12.5mg BID which will be increased to 25mg BID today 4. HTN - will increase Coreg to 25mg BID 5. Chronic combined HF - stable; on Coreg, not on BOBBI/ARB due to CKD 6. COPD - O2 sat has been 97% with 4LNC this AM 7. PE - on Eliquis 2.5mg BID 8. Hypothyroidism - continue levothyroxine MAR reviewed * Echo in 02/2020 with EF 40-45%, grade III dd, akinetic septum, mild LAE, trace MR and mild TR * DNAR * from cardiac standpoint, the pt is stable to d/c. The pt will f/u with Dr Lino' office in 2 wks.
[2020-03-12 14:48] VITALS: BP 129/66; TEMP 98.2
--- NOTE | 2020-03-12 16:37 | DIS ---
DATE OF ADMISSION: 03/06/2020 DATE OF DISCHARGE: 03/12/2020 DISCHARGE MEDICATIONS: 1. Xanax 0.25 mg at bedtime. 2. Amiodarone 100 mg daily. 3. Eliquis 2.5 mg twice a day. 4. Lipitor 10 mg at bedtime. 5. Pulmicort b.i.d. 0.25 mg inhalation as needed. 6. Coreg 12.5 mg twice a day. 7. Fluoxetine. 8. Prozac 30 mg daily. 9. Gabapentin dose decreased from 600 mg three times a day to 300 mg three times a day given her relatively intermittent somnolence. 10. Guaifenesin as needed. 11. Levothyroxine 125 mcg daily. 12. Torsemide 20 mg daily. 13. Oxybutynin 10 mg daily. 14. Coreg was increased from 6.25 mg twice a day to 12.5 mg twice a day. 15. Keflex 500 mg twice a day for 7 days. DISCHARGE DIAGNOSES: 1. Sepsis secondary to aspiration pneumonia. 2. Recurrent aspiration pneumonia. 3. Atrial fibrillation lately converted to sinus rhythm and continued with amiodarone and Eliquis. Sinus tachycardia probably related to urinary tract infection and her Coreg dose increased from 6.25 to 12.5. Rate improved. 4. Hypertension. 5. Elevated troponin, type 2 metabolic mismatch. Diastolic dysfunction. 6. Nonischemic cardiomyopathy with ejection fraction of 45% and septal akinesis. 7. Mild mitral regurgitation. 8. Urine incontinence, on oxybutynin. 9. History of pulmonary embolism, continued with Eliquis. 10. Hypothyroidism, on thyroxine supplement. 11. Chronic obstructive pulmonary disease. 12. Dysphagia. We consulted Speech Therapy during this admission and the patient is, for the most part, noncompliant with adhering to the pureed diet with honey-nectar thick consistency which is recommended at all times. 13. Urinary tract infection. PHYSICAL EXAMINATION: GENERAL: On the day of discharge the patient is alert. Staff is nearby doing sponge bath. She is quite eager to go home. I checked with the program dir and they are also agreeable. VITAL SIGNS: Her blood pressure is lately improved and I do not feel comfortable sending her with Coreg high doses of 25 twice a day. Since her pulse is improved, we will defer increasing the dose. CARDIOVASCULAR: Regular rate and rhythm without murmurs, rubs, or gallops. LUNGS: Clear to auscultation bilaterally without wheezing, rales, or rhonchi. ABDOMEN: Soft, nontender, nondistended. Good bowel sounds. EXTREMITIES: Without pitting edema. HOSPITAL COURSE: This is a 80-year-old female with frequent hospitalization for aspiration pneumonia, presented with another episode. She was started on IV antibiotics to cover for aspiration and UTI. The patient had sinus tachycardia for few days. The Coreg dose increased from 6.25 to 12.5 mg twice a day, and she seems to be tolerating the increased dose and heart rate improved. She will continue with amiodarone at the same dose of 100 mg daily. At this point, further increase of coreg is not required, though this morning, extra dose was given as 25 mg coreg. She did have somnolence intermittently. I am going to decrease the gabapentin dose from 600 three times a day to 300 three times a day. The patient reached maximum benefit during this hospitalization. She will be discharged home today. She lives with her spouse. DISCHARGE INSTRUCTIONS: Activity as tolerated. Healthy-heart diet. Follow up with primary care physician in one week. Follow up with Dr. Lino in 2 weeks. TIME SPENT: Discharge time took over 30 minutes. Job ID: [id number] MTDD
[2020-03-12] MEDS ORDERED: Carvedilol 25 MG TAB PO SCH (21:00)
--- NOTE | 2020-03-15 14:20 | EKG ---
Test Reason : Blood Pressure : / mmHG Vent. Rate : 093 BPM Atrial Rate : 093 BPM P-R Int : 188 ms QRS Dur : 110 ms QT Int : 394 ms P-R-T Axes : 022 -59 026 degrees QTc Int : 489 ms Sinus rhythm with Premature atrial complexes Possible Left atrial enlargement Left anterior fascicular block Anterolateral infarct , age undetermined Abnormal ECG Confirmed by MARYBETH NORTH, OSITO Kaur ([id number]), desk editor WALDO PYLE ([id number]) on 03/15/2020 2:19:47 PM Referred By: Confirmed By:OSITO RUEDA MD
== END 2020-03-12 15:20 | disposition home health service (06) | DRG 871 ==
LOC: ERS 20:10 → CCU 22:20 → T4-A 03-07 12:58
PROVIDERS: ADMIT Internal Medicine; ATTEND Internal Medicine
PROC: 8E0ZXY6 Isolation (ICD-10-PCS; principal; 2020-03-06)
DX: A41.9 Sepsis, unspecified organism (principal); J69.0 Pneumonitis due to inhalation of food and vomit; J96.21 Acute and chronic respiratory failure with hypoxia; I21.A1 Myocardial infarction type 2; I13.0 Hypertensive heart and chronic kidney disease with heart failure and stage 1 through stage 4 chronic kidney disease, or unspecified chronic kidney disease; N17.9 Acute kidney failure, unspecified; I50.42 Chronic combined systolic (congestive) and diastolic (congestive) heart failure; N39.0 Urinary tract infection, site not specified; I42.8 Other cardiomyopathies; Z20.828 Contact with and (suspected) exposure to other viral communicable diseases; Z66 Do not resuscitate; D64.9 Anemia, unspecified; K21.9 Gastro-esophageal reflux disease without esophagitis; E03.9 Hypothyroidism, unspecified; E78.5 Hyperlipidemia, unspecified; J44.9 Chronic obstructive pulmonary disease, unspecified; F32.9 Major depressive disorder, single episode, unspecified; F41.9 Anxiety disorder, unspecified; R65.20 Severe sepsis without septic shock; E66.01 Morbid (severe) obesity due to excess calories; N18.3 Chronic kidney disease, stage 3 (moderate); F03.90 Unspecified dementia, unspecified severity, without behavioral disturbance, psychotic disturbance, mood disturbance, and anxiety; I34.0 Nonrheumatic mitral (valve) insufficiency; I48.0 Paroxysmal atrial fibrillation; R13.12 Dysphagia, oropharyngeal phase; Z88.5 Allergy status to narcotic agent; Z88.8 Allergy status to other drugs, medicaments and biological substances; Z88.1 Allergy status to other antibiotic agents; Z91.040 Latex allergy status; Z79.01 Long term (current) use of anticoagulants; Z79.890 Hormone replacement therapy; Z79.891 Long term (current) use of opiate analgesic; Z79.899 Other long term (current) drug therapy; Z90.49 Acquired absence of other specified parts of digestive tract; Z90.710 Acquired absence of both cervix and uterus; Z90.722 Acquired absence of ovaries, bilateral; Z68.32 Body mass index [BMI] 32.0-32.9, adult; Z86.711 Personal history of pulmonary embolism; Z91.11 Patient's noncompliance with dietary regimen; I69.898 Other sequelae of other cerebrovascular disease; Z74.01 Bed confinement status
CPT/HCPCS: 36415; 36416; 51701; 71045; 80048; 80053; 80061; 81001; 81003; 81015; 82553; 83605; 83880; 84484; 85025; 85027; 87040; 87086; 87324; 87449; 87635; 93005; 93010; 93306; 94640; 96365; 99292; A4353; J0692; J0696; J1200; J1940; J3370; J3490; J7626; U0003

== ENCOUNTER 2020-03-25 00:51 | Inpatient (IN) | payer MEDICARE, OTHER ==
[2020-03-25 01:19] LABS: #Basophils 0.1 thou/uL (0.0-0.2); #Eosinphils 0.3 thou/uL (0.0-0.7); #Lymphocytes 1.4 thou/uL (1.20-3.40); #Monocytes 0.7 thou/uL (0.11-0.59); #Neutrophils 4.7 thou/uL (1.40-6.50); %Eosinophils 4.2 % (0.0-10.0); %Lymphocytes 19.6 % (21.0-51.0); %Monocytes 9.4 % (0.0-10.0); %Neutrophils 65.9 % (42.0-75.0); Hemoglobin 10.1 g/dL (12.0-16.0); Mean Corpuscular HGB CONC 32.4 g/dL (32.0-36.0); Mean Corpuscular Hemoglobin 29.5 pg (27.0-31.0); Mean Corpuscular Volume 91.3 fL (78.0-98.0); Mean Platelet Volume 7.7 fL (7.4-10.4); Platelet Count 233 thou/uL (130-400); RBC Distribution Width 14.9 % (11.5-14.5); Red Blood Cell (RBC) Count 3.43 mill/uL (4.20-5.40); White Blood Cell (WBC) Count 7.1 thou/uL (4.8-10.8)
[2020-03-25 01:48] LABS: Bacteria/HPF None Seen HPF (None Seen); Bilirubin Negative (Negative); Blood, Urine Negative (Negative); Clarity Clear (Clear); Glucose, Urine (Dipstick) Normal (Negative); Leukocyte 250 Leu/uL (Negative); Nitrite Negative (Negative); Protein, Urine (Dipstick) 10 mg/dL (Neg-Trace); RBC/HPF 0-3 HPF (0-3); Squamous Epithelial 0-3 HPF (0-3); Urobilinogen Normal mg/dL (Less than 2); WBC/HPF 21-50 HPF (0-3)
[2020-03-25] MEDS ORDERED: cloNIDine 0.1 MG TAB ONE (02:02)
[2020-03-25] MEDS ORDERED: Cefepime 2 GM VIAL ONE ×2 (02:02→14:22)
[2020-03-25 02:19] LABS: ALT (SGPT) 8 U/L (8-55); AST (SGOT) 19 U/L (5-34); Albumin 3.4 g/dL (3.4-4.8); Alkaline Phosphatase 104 U/L (40-110); Anion Gap 16 mmol/L (10-20); BUN (Urea Nitrogen) 24 mg/dL (9.8-20.1); Bilirubin, Total 0.5 mg/dL (0.2-1.2); Calc. Creatinine Clearance 0 mL/min (70-130); Calcium 8.5 mg/dL (7.8-10.44); Carbon Dioxide 28 mmol/L (23-31); Chloride 95 mmol/L (98-107); Estimated GFR-MDRD 24; Globulin 2.7 g/dL (2.4-3.5); Glucose 108 mg/dL (83-110); Protein, Total 6.1 g/dL (6.0-8.3); Sodium 135 mmol/L (136-145)
--- NOTE | 2020-03-25 02:30 | PDOC.HHP ---
Hospitalist HPI - History of Present Illness Pneumonia, hypoxia History of Present Illness: Patient with PMH of HTN, HLD, CHF, COPD, recurrent episodes of aspiration presents to ED for evaluation of subjective fever, chills, malaise, worsening cough and shortness of breath. Patient with recent admission to the hospital for treatment of aspiration PNA. Per daughter at bedside her symptoms at that moment were similar. She does tell me that over the last 2-3 days her cough appears to worsen. Patient appears to have finished antibiotics mid-last week for PNA and possible UTI. She was tested then for COVID19 which was negative. Patient resides at home but does have family and home care staff that interact with the community. No known exposures to COVID19 or sick contacts to their recollection. Per daughter at bedside patient does have rx for oxygen at home that she uses PRN & only intermittenly if her oxygen saturation are noted to be low. In ED she is noted to be hypoxic currently requiring 3-4 L O2 via NC. She appears comfortable during my assessment with no evidence of respiratory distress. Urinalysis does reveal possible UTI. On exam she has bilateral lower extremity erythematous rash. Hospitalist ROS - Review of Systems Constitutional: reports: fever, chills, weakness Respiratory: reports: cough, shortness of breath, sputum Cardiovascular: denies: chest pain, orthopnea, paroxysmal noc. dyspnea Gastrointestinal: denies: nausea, vomiting, abdominal pain Genitourinary: reports: dysuria, frequency Neurological: reports: weakness Hospitalist History - Past Medical History Psych: reports: Anxiety Musculoskeletal: reports: Other (chronic pain) Renal/: reports: Chronic renal failure (Stage III) Endocrine: reports: Hypothyroidism - Past Surgical History Past Surgical History: reports: Cholecystectomy, Hysterectomy - Social History Alcohol: reports: None - Exam General Appearance: NAD, awake alert General - other findings: Appears weak Eye: PERRL ENT: normocephalic atraumatic Neck: supple, no JVD Heart: RRR, no murmur Respiratory - other findings: Bilateral rhonchi Gastrointestinal: soft, non-tender Extremities: 1+ LE edema Skin - other findings: Bilateral lower extremity erythematous rash Neurological: cranial nerve grossly intact Musculoskeletal: generalized weakness Psychiatric - other findings: emotional Hospitalist Results - Labs Result Diagrams: 03/25/20 01:06 03/25/20 01:06 Lab results: WBC 7.1 thou/uL (4.8-10.8) 03/25/20 01:06 Hgb 10.1 g/dL (12.0-16.0) L 03/25/20 01:06 Hct 31.3 % (36.0-47.0) L 03/25/20 01:06 MCV 91.3 fL (78.0-98.0) 03/25/20 01:06 Plt Count 233 thou/uL (130-400) 03/25/20 01:06 Neutrophils % 65.9 % (42.0-75.0) 03/25/20 01:06 Sodium 135 mmol/L (136-145) L 03/25/20 01:06 Potassium 4.0 mmol/L (3.5-5.1) 03/25/20 01:06 Chloride 95 mmol/L (98-107) L 03/25/20 01:06 Carbon Dioxide 28 mmol/L (23-31) 03/25/20 01:06 BUN 24 mg/dL (9.8-20.1) H 03/25/20 01:06 Creatinine 1.98 mg/dL (0.6-1.1) H 03/25/20 01:06 Glucose 108 mg/dL (83-110) 03/25/20 01:06 Lactic Acid 1.2 mmol/L (0.5-2.2) 03/25/20 01:01 Calcium 8.5 mg/dL (7.8-10.44) 03/25/20 01:06 Total Bilirubin 0.5 mg/dL (0.2-1.2) 03/25/20 01:06 AST 19 U/L (5-34) 03/25/20 01:06 ALT 8 U/L (8-55) 03/25/20 01:06 Alkaline Phosphatase 104 U/L (40-110) 03/25/20 01:06 Serum Total Protein 6.1 g/dL (6.0-8.3) 03/25/20 01:06 Albumin 3.4 g/dL (3.4-4.8) 03/25/20 01:06 Urine Ketones Negative mg/dL (Negative) 03/25/20 01:25 Urine Blood Negative (Negative) 03/25/20 01:25 Urine Nitrite Negative (Negative) 03/25/20 01:25 Ur Leukocyte Esterase 250 Huma/uL (Negative) A 03/25/20 01:25 Urine RBC 0-3 HPF (0-3) 03/25/20 01:25 Urine WBC 21-50 HPF (0-3) A 03/25/20 01:25 Ur Squamous Epith Cells 0-3 HPF (0-3) 03/25/20 01:25 Urine Bacteria None Seen HPF (None Seen) 03/25/20 01:25 - Radiology Interpretation Chest x-ray Status: image reviewed by dc Hospitalist H&P A/P - Plan Plan: Problem List 1. Acute on chronic hypoxic respiratory failure 2. Possible aspiration PNA 3. Possible UTI 4. NIKI on CKD 5. Generalized weakness 6. History of HTN 7. History of HLD 8. History of CHF 9. History of AF Assessment and Plan 1. Acute on chronic hypoxic respiratory failure - per family patient on 2-3L O2 via NC PRN - currently requiring 4L O2 via NC - continue with oxygen support - monitor hemodynamics closely 2. Possible aspiration PNA - start patient on Cefepime and Flagyl, hold Vancomycin for now - pending progression can consider broader coverage to cover HCAP - speech and swallow evaluation; keep NPO for now - COVID19 resent by ED provider 3. Possible UTI - per daughter patient with intermittent dysuria - await cultures - continue with IV ABX per above plan 4. NIKI on CKD - received gentle IVFs in ED - recheck RF in AM - will reconsider IVF based on AM labs - avoid nephrotoxic agents 5. Generalized weakness - multifactorial in setting of above - patient is non ambulatory at baseline - CM has been consulted - could consider PT/OT 6. History of HTN - resume home medication once med rec completed 7. History of HLD - continue with statin 8. History of CHF - mild elevation of BNP and lower extremity edema - mild erythematous rash likely due to mild edema/venous stasis - hold Lasix for now due to NIKI on CKD - monitor renal function closely 9. History of AF - continue with Amiodarone and chronic AC DVT PPX: Eliquis; renal dose DNR/DNI
[2020-03-25] MEDS ORDERED: Vancomycin 1 GM/200 ML BAG ONE (02:47)
[2020-03-25] MEDS ORDERED: Acetaminophen 325 MG TAB PO PRN (03:50)
[2020-03-25] MEDS ORDERED: Guaifenesin DM 100-10/5 ML UDCUP PO PRN (03:50)
[2020-03-25] MEDS ORDERED: Ondansetron PF 4 MG/2 ML Vial IVP PRN (03:50)
[2020-03-25] MEDS: Levothyroxine Sodium 125 MCG TAB PO SCH (06:03)
[2020-03-25] MEDS ORDERED: metroNIDAZOLE 500 MG/100 ML BAG ONE (06:04)
[2020-03-25] MEDS: metroNIDAZOLE 500 MG in Premix Bag 1 BAG IVPB SCH ×3 (06:18→21:07)
--- NOTE | 2020-03-25 07:42 | RAD ---
EXAM: Single view of the chest HISTORY: Dyspnea COMPARISON: 03/06/2020 FINDINGS: Single view of the chest shows an enlarged but stable cardiomediastinal silhouette. Athero sclerotic calcifications are seen in the aorta. There is stable elevation of the left hemidiaphragm. There is no evidence of consolidation, mass, or pleural effusion. Degenerative change s are seen in the spine and left shoulder. IMPRESSION: Stable cardiomegaly
[2020-03-25] MEDS: Mometasone 200 MCG/Formoterol 5 MCG 120 PUFF INHALER INH SCH ×2 (08:59→23:24)
[2020-03-25] MEDS: Amiodarone 200 MG TAB PO SCH (09:09)
[2020-03-25] MEDS: Apixaban 2.5 MG TAB PO SCH ×2 (09:09→21:33)
[2020-03-25] MEDS: Carvedilol 6.25 MG TAB PO SCH ×2 (09:10→21:34)
[2020-03-25] MEDS: FLUoxetine HCl 10 MG CAP PO SCH (09:11)
[2020-03-25] MEDS: Cefepime 2 GM in Sodium Chloride 0.9% 100 ML IVPB SCH (14:39)
[2020-03-25 15:22] VITALS: BMI 34.5
[2020-03-25] MEDS ORDERED: Amlodipine 10 MG TAB PO SCH (16:45)
[2020-03-25] MEDS: hydrALAZINE 20 MG/ML VIAL SLOW IVP PRN ×2 (17:50→23:15)
[2020-03-25] MEDS: Atorvastatin Calcium 10 MG TAB PO SCH (21:33)
[2020-03-26] MEDS: Cefepime 2 GM in Sodium Chloride 0.9% 100 ML IVPB SCH ×2 (02:05→15:01)
[2020-03-26] MEDS: Levothyroxine Sodium 125 MCG TAB PO SCH (06:10)
[2020-03-26] MEDS: metroNIDAZOLE 500 MG in Premix Bag 1 BAG IVPB SCH ×3 (06:10→21:38)
[2020-03-26] MEDS: hydrALAZINE 20 MG/ML VIAL SLOW IVP PRN ×3 (06:35→19:40)
[2020-03-26 06:40] LABS: ALT (SGPT) Less than 7 U/L (8-55); AST (SGOT) 15 U/L (5-34); Alkaline Phosphatase 91 U/L (40-110); Anion Gap 16 mmol/L (10-20); BUN (Urea Nitrogen) 23 mg/dL (9.8-20.1); Bilirubin, Total 0.6 mg/dL (0.2-1.2); Calc. Creatinine Clearance 42 mL/min (70-130); Calcium 8.5 mg/dL (7.8-10.44); Carbon Dioxide 27 mmol/L (23-31); Chloride 101 mmol/L (98-107); Estimated GFR-MDRD 31; Globulin 2.5 g/dL (2.4-3.5); Glucose 108 mg/dL (83-110); Potassium 3.4 mmol/L (3.5-5.1); Protein, Total 5.5 g/dL (6.0-8.3); Sodium 141 mmol/L (136-145)
[2020-03-26 06:43] LABS: Band 9 % (5-11); Eosinophils 1 % (0-10); Hemoglobin 10.4 g/dL (12.0-16.0); Lymphocytes 20 % (21-51); MDiff Complete? YES; Mean Corpuscular HGB CONC 31.4 g/dL (32.0-36.0); Mean Corpuscular Hemoglobin 28.7 pg (27.0-31.0); Mean Corpuscular Volume 91.3 fL (78.0-98.0); Mean Platelet Volume 7.6 fL (7.4-10.4); Monocytes 5 % (0-10); Neutrophil 65 % (42-75); Platelet Count 196 thou/uL (130-400); Platelet Morphology Comment Appears Adequate; Red Blood Cell (RBC) Count 3.61 mill/uL (4.20-5.40); White Blood Cell (WBC) Count 8.2 thou/uL (4.8-10.8)
[2020-03-26] MEDS: Mometasone 200 MCG/Formoterol 5 MCG 120 PUFF INHALER INH SCH ×2 (07:09→18:10)
[2020-03-26] MEDS: Apixaban 2.5 MG TAB PO SCH ×2 (07:58→21:38)
[2020-03-26] MEDS: Amlodipine 10 MG TAB PO SCH (07:58)
[2020-03-26] MEDS: Carvedilol 6.25 MG TAB PO SCH ×2 (07:58→21:38)
[2020-03-26] MEDS: Amiodarone 200 MG TAB PO SCH (07:58)
[2020-03-26] MEDS: FLUoxetine HCl 10 MG CAP PO SCH (07:59)
--- NOTE | 2020-03-26 13:53 | PDOC.HOSPP ---
- Subjective Encounter Date: 03/26/20 Encounter Time: 12:00 Subjective: awake, not fully oriented is not in distress - Objective Vital Signs & Weight: Vital Signs (12 hours) Temp Pulse Resp BP BP Pulse Ox 03/26/20 11:00 98.1 F 88 18 187/85 H 96 03/26/20 08:36 98.1 F 96 18 92 L 03/26/20 08:35 166/69 H 03/26/20 07:58 91 186/76 H 03/26/20 07:00 98.1 F 96 18 166/69 H 92 L 03/26/20 06:35 91 186/76 H 03/26/20 02:15 168/78 H Weight Weight 207 lb 11.2 oz Result Diagrams: 03/26/20 06:14 03/26/20 06:14 Hospitalist ROS - Medication Medications: Active Medications Generic Name Dose Route Start Last Admin Trade Name Freq PRN Reason Stop Dose Admin Amiodarone HCl 100 mg 03/25/20 09:00 03/26/20 07:58 Cordarone PO Not Given DAILY [facility] Amlodipine Besylate 10 mg 03/26/20 09:00 03/26/20 07:58 Norvasc PO Not Given DAILY [facility] Apixaban 2.5 mg 03/25/20 09:00 03/26/20 07:58 Eliquis PO Not Given BID [facility] Atorvastatin Calcium 10 mg 03/25/20 21:00 03/25/20 21:33 Lipitor PO Not Given HS [facility] Carvedilol 12.5 mg 03/25/20 09:00 03/26/20 07:58 Coreg PO Not Given BID [facility] Fluoxetine HCl 30 mg 03/25/20 09:00 03/26/20 07:59 Prozac PO Not Given DAILY [facility] Hydralazine HCl 10 mg 03/25/20 17:34 03/26/20 06:35 Apresoline SLOW IVP 10 mg Q4H PRN Administration SBP >160 Metronidazole 500 mg/ Device 100 mls @ 100 mls/hr 03/25/20 06:00 03/26/20 06: 10 IVPB 100 mls Q8HR [facility] Administration Cefepime HCl 2 gm/ Sodium 100 mls @ 200 mls/hr 03/25/20 14:00 03/26/20 02:05 Chloride IVPB 100 mls 0200,1400 [facility] Administration Levothyroxine Sodium 125 mcg 03/25/20 06:00 03/26/20 06:10 Synthroid PO Not Given 0600 [facility] Mometasone Furoate/Formoterol Fumar 2 puff 03/25/20 06:30 03/26/20 07:09 Dulera 200 Mcg/5 Mcg Inhaler INH 2 puff BID-RT [facility] Administration Pantoprazole Sodium 40 mg 03/25/20 09:00 03/26/20 07:59 Protonix PO Not Given DAILY [facility] - Exam General Appearance: awake alert Eye: PERRL, anicteric sclera ENT: no oropharyngeal lesions, moist mucosa Neck: supple, no JVD Heart: RRR, no murmur Respiratory: no wheezes, no rales Gastrointestinal: soft, non-tender, non-distended, normal bowel sounds Extremities: no cyanosis, no edema Neurological: cranial nerve grossly intact, no new deficit Hosp A/P (1) Acute and chronic respiratory failure Code(s): J96.20 - ACUTE AND CHR RESP FAILURE, UNSP W HYPOXIA OR HYPERCAPNIA Status: Acute Qualifiers: Respiratory failure complication: hypoxia Qualified Code(s): J96.21 - Acute and chronic respiratory failure with hypoxia (2) Aspiration pneumonia Code(s): J69.0 - PNEUMONITIS DUE TO INHALATION OF FOOD AND VOMIT Status: Suspected Qualifiers: Aspiration pneumonia type: due to regurgitated food Laterality: bilateral (3) Afib Code(s): I48.91 - UNSPECIFIED ATRIAL FIBRILLATION Status: Chronic Qualifiers: Atrial fibrillation type: paroxysmal Qualified Code(s): I48.0 - Paroxysmal atrial fibrillation (4) Anxiety and depression Code(s): F41.8 - OTHER SPECIFIED ANXIETY DISORDERS Status: Chronic (5) COPD (chronic obstructive pulmonary disease) Status: Chronic Qualifiers: COPD type: chronic bronchitis (6) Chronic diastolic heart failure Code(s): I50.32 - CHRONIC DIASTOLIC (CONGESTIVE) HEART FAILURE Status: Chronic (7) Chronic low back pain Code(s): M54.5 - LOW BACK PAIN; G89.29 - OTHER CHRONIC PAIN Status: Chronic (8) Dysphagia Code(s): R13.10 - DYSPHAGIA, UNSPECIFIED Status: Chronic (9) GERD (gastroesophageal reflux disease) Code(s): K21.9 - GASTRO-ESOPHAGEAL REFLUX DISEASE WITHOUT ESOPHAGITIS Status: Chronic Qualifiers: Esophagitis presence: esophagitis presence not specified Qualified Code(s) : K21.9 - Gastro-esophageal reflux disease without esophagitis (10) Hypertension Code(s): I10 - ESSENTIAL (PRIMARY) HYPERTENSION Status: Chronic Qualifiers: (11) Hypothyroidism Code(s): E03.9 - HYPOTHYROIDISM, UNSPECIFIED Status: Chronic Qualifiers: (12) Obesity (BMI 30-39.9) Code(s): E66.9 - OBESITY, UNSPECIFIED Status: Chronic (13) Physical deconditioning Code(s): R53.81 - OTHER MALAISE Status: Chronic - Plan recurrent hospitalization for aspiration related issues or polypharmacy was recently dc'd on 03/12/20 on keflex for uti/pna pulm consultation may dc antibiotics if ok with Pulmonology continue amiodarone, eliquis, norvasc, coreg, lipitor, prozac, dulera inh, synthroid prognosis guareded
--- NOTE | 2020-03-26 20:06 | CON ---
DATE OF CONSULTATION: 03/26/2020 REASON FOR EVALUATION: Shortness of breath. HISTORY OF PRESENT ILLNESS: Ms. Santizo is well known to our service. She is an 80-year-old with a history of chronic aspiration, who has repetitively refused a PEG tube. She came in the hospital with cough and shortness of breath. Her just last week. She is very depressed. She does not want to talk very much. PAST MEDICAL HISTORY: 1. COPD/chronic bronchitis. 2. Hypertension. 3. Hyperlipidemia. 4. Gastroesophageal reflux. 5. Atrial fibrillation. 6. Hypothyroidism. PAST SURGICAL HISTORY: Cholecystectomy and hysterectomy. SOCIAL HISTORY: Nonsmoker. Does not consume alcohol. OUTPATIENT MEDICATIONS: Reviewed. See chart. REVIEW OF SYSTEMS: Otherwise negative. PHYSICAL EXAMINATION: VITAL SIGNS: Temperature 98.1, pulse 88, respiration 18, O2 saturations 96% on 3 L, and blood pressure 187/85. HEENT: Unremarkable. NECK: No adenopathy or JVD or bruits. LUNGS: Fairly clear without wheezing or rhonchi. CARDIOVASCULAR: S1 and S2. Regular without murmur. ABDOMEN: Soft and nontender. EXTREMITIES: No edema. PSYCHIATRIC: She has a dull affect. Does not want to verbalize. LABORATORY DATA: White blood cell count 8.2, hematocrit 33, and platelet count 196. Sodium 141, potassium 3.4, chloride 101, CO2 of 27, BUN 23, creatinine 1.5, glucose 109. X-ray shows no acute changes. ASSESSMENT: The patient is likely going to transient depression related to her 's . Her breathing seemed to be at baseline. I do not suspect she has any exacerbation of her pneumonia. I doubt she is COVID-19 positive, although that has been sent off. RECOMMENDATIONS: She is currently on antibiotics and nebulization treatments. If her COVID-19 test is negative, then she can be taken out of isolation and hopefully social work program coordinator can be involved at that point in terms of placement. This patient has a do not resuscitate order, which I agree with. I will notify Dr. Hook of the patient's hospitalization. Job ID: [id number]
[2020-03-26] MEDS: Atorvastatin Calcium 10 MG TAB PO SCH (21:38)
[2020-03-27] MEDS: Cefepime 2 GM in Sodium Chloride 0.9% 100 ML IVPB SCH ×2 (01:24→14:57)
[2020-03-27] MEDS: hydrALAZINE 20 MG/ML VIAL SLOW IVP PRN ×4 (01:36→23:39)
[2020-03-27] MEDS: Levothyroxine Sodium 125 MCG TAB PO SCH (06:10)
[2020-03-27] MEDS: metroNIDAZOLE 500 MG in Premix Bag 1 BAG IVPB SCH ×2 (06:10→14:58)
[2020-03-27 07:01] LABS: Hemoglobin 10.1 g/dL (12.0-16.0); Mean Corpuscular HGB CONC 31.5 g/dL (32.0-36.0); Mean Corpuscular Hemoglobin 28.7 pg (27.0-31.0); Mean Corpuscular Volume 91.1 fL (78.0-98.0); Mean Platelet Volume 8.2 fL (7.4-10.4); Platelet Count 218 thou/uL (130-400); RBC Distribution Width 15.3 % (11.5-14.5); Red Blood Cell (RBC) Count 3.51 mill/uL (4.20-5.40); White Blood Cell (WBC) Count 11.4 thou/uL (4.8-10.8)
[2020-03-27 07:13] LABS: Anion Gap 15 mmol/L (10-20); BUN (Urea Nitrogen) 22 mg/dL (9.8-20.1); Calc. Creatinine Clearance 48 mL/min (70-130); Calcium 8.6 mg/dL (7.8-10.44); Carbon Dioxide 27 mmol/L (23-31); Chloride 102 mmol/L (98-107); Estimated GFR-MDRD 37; Glucose 125 mg/dL (83-110); Sodium 141 mmol/L (136-145)
[2020-03-27 07:16] LABS: Potassium 2.8 mmol/L (3.5-5.1)
[2020-03-27] MEDS ORDERED: Potassium Chloride 20 MEQ TAB PO SCH ×4 (07:45→23:30)
[2020-03-27] MEDS: Mometasone 200 MCG/Formoterol 5 MCG 120 PUFF INHALER INH SCH ×2 (07:56→16:39)
[2020-03-27] MEDS: FLUoxetine HCl 10 MG CAP PO SCH (07:56)
[2020-03-27] MEDS: Amiodarone 200 MG TAB PO SCH (07:57)
[2020-03-27] MEDS: Amlodipine 10 MG TAB PO SCH (07:57)
[2020-03-27] MEDS: Apixaban 2.5 MG TAB PO SCH ×2 (07:57→21:21)
[2020-03-27] MEDS: Potassium Chloride 20 MEQ TAB PO SCH ×3 (07:57→21:20)
[2020-03-27] MEDS: Carvedilol 6.25 MG TAB PO SCH ×2 (07:57→21:07)
[2020-03-27 08:34] LABS: Band 5 % (5-11); Hypochromia SLIGHT = 6-15 cells (100X) (0-5/hpf); Lymphocytes 15 % (21-51); MDiff Complete? YES; Monocytes 9 % (0-10); Neutrophil 71 % (42-75); Ovalocytes SLIGHT = 2-5 cells (100X) (0-1/hpf); Platelet Morphology Comment Appears Adequate; Polychromasia SLIGHT = 2-3 cells (100X) (0-2/hpf)
--- NOTE | 2020-03-27 09:34 | PRG ---
DATE OF SERVICE: 03/27/2020 SUBJECTIVE: Cecilia Santizo was readmitted to the hospital again with progressive metabolic encephalopathy. X-ray taken, shows essentially no change. She apparently had fever and cough. Recurrent admission for recurrent aspiration. She had multiple tests done, which are negative. Her apparently has recently passed. OBJECTIVE: GENERAL: This morning, she still remains encephalopathic, barely opens her eyes. VITAL SIGNS: Pulse 100, respirations 20, blood pressure 130/80. CHEST: Decreased breath sounds. Chest without any wheezing . CARDIAC: Normal S1, S2. No gallops. ABDOMEN: No masses. ASSESSMENT AND PLAN: 1. Metabolic encephalopathy. 2. Recurrent aspiration. 3. Recurrent respiratory failure. 4. Baseline hypoventilation syndrome. She is already on broad-spectrum antibiotics, comfort care. Job ID: [id number]
--- NOTE | 2020-03-27 11:53 | CT ---
CT BRAIN WITHOUT CONTRAST: Date; 03/27/2020 HISTORY: Altered mental status. COMPARISON: 02/03/2020. FINDINGS: Changes of mild cortical atrophy and mild chronic small vessel ischemic disease are again seen. The v entricular size is stable and the basilar cisterns are patent. No evidence of acute infarct, hemorrha ge, midline shift, or abnormal extra-axial fluid collections are noted. The bony calvarium is intact. There is mucosal disease in the paranasal sinuses. IMPRESSION: Stable exam. No acute intracranial process. POS: AH
[2020-03-27] MEDS: Dextrose 5 % And 0.9 % NaCl 1,000 ML IV SCH ×2 (13:05→21:07)
--- NOTE | 2020-03-27 14:36 | PDOC.HOSPP ---
- Subjective Encounter Date: 03/27/20 Encounter Time: 12:00 Subjective: awake, does not talk, is seen moving extremities a bit not in resp distress is not eating daughter at bedside - Objective Vital Signs & Weight: Vital Signs (12 hours) Temp Pulse Resp BP Pulse Ox 03/27/20 11:14 98.2 F 89 20 172/66 H 93 L 03/27/20 10:51 174/85 H 03/27/20 10:18 184/80 H 03/27/20 08:00 98.0 F 103 H 18 188/95 H 94 L 03/27/20 06:05 20 192/89 H 94 L 03/27/20 04:23 94 L Weight Admit Weight 207 lb Weight 207 lb 11.2 oz Result Diagrams: 03/27/20 06:13 03/27/20 06:13 Additional Labs: Accuchecks 03/27/20 10:06 POC Glucose 130 H Hospitalist ROS - Medication Medications: Active Medications Generic Name Dose Route Start Last Admin Trade Name Freq PRN Reason Stop Dose Admin Amiodarone HCl 100 mg 03/25/20 09:00 03/27/20 07:57 Cordarone PO 100 mg DAILY JERMAINE Administration Amlodipine Besylate 10 mg 03/26/20 09:00 03/27/20 07:57 Norvasc PO 10 mg DAILY JERMAINE Administration Apixaban 2.5 mg 03/25/20 09:00 03/27/20 07:57 Eliquis PO 2.5 mg BID JERMAINE Administration Atorvastatin Calcium 10 mg 03/25/20 21:00 03/26/20 21:38 Lipitor PO 10 mg HS JERMAINE Administration Carvedilol 12.5 mg 03/25/20 09:00 03/27/20 07:57 Coreg PO 12.5 mg BID JERMAINE Administration Fluoxetine HCl 30 mg 03/25/20 09:00 03/27/20 07:56 Prozac PO 30 mg DAILY JERMAINE Administration Hydralazine HCl 10 mg 03/25/20 17:34 03/27/20 06:30 Apresoline SLOW IVP 10 mg Q4H PRN Administration SBP >160 Cefepime HCl 2 gm/ Sodium 100 mls @ 200 mls/hr 03/25/20 14:00 03/27/20 01:24 Chloride IVPB 100 mls 0200,1400 JERMAINE Administration Dextrose/Sodium Chloride 1,000 mls @ 100 mls/hr 03/27/20 10:15 03/27/20 13:05 D5 0.9% Ns IV 1,000 mls .Q10H JERMAINE Administration Levothyroxine Sodium 125 mcg 03/25/20 06:00 03/27/20 06:10 Synthroid PO 125 mcg 0600 JERMAINE Administration Mometasone Furoate/Formoterol Fumar 2 puff 03/25/20 06:30 03/27/20 07:56 Dulera 200 Mcg/5 Mcg Inhaler INH 2 puff BID-RT JERMAINE Administration Pantoprazole Sodium 40 mg 03/25/20 09:00 03/27/20 07:59 Protonix PO 40 mg DAILY JERMAINE Administration Potassium Chloride 40 meq 03/27/20 08:00 03/27/20 07:57 K-Dur PO 03/28/20 02:01 40 meq Q6H JERMAINE Administration Sodium Chloride 10 ml 03/27/20 09:00 03/27/20 07:59 Flush - Normal Saline IVF 10 ml Q12HR JERMAINE Administration - Exam General Appearance: awake alert Eye: PERRL, anicteric sclera ENT: no oropharyngeal lesions, dry oral mucosa Neck: supple, no JVD Heart: RRR, no murmur Respiratory: no wheezes, no rales, rhonchi Gastrointestinal: soft, non-tender, non-distended, normal bowel sounds Extremities: no cyanosis, 2+ LE edema Neurological: cranial nerve grossly intact, no focal deficits Hosp A/P (1) Acute and chronic respiratory failure Code(s): J96.20 - ACUTE AND CHR RESP FAILURE, UNSP W HYPOXIA OR HYPERCAPNIA Status: Acute Qualifiers: Respiratory failure complication: hypoxia Qualified Code(s): J96.21 - Acute and chronic respiratory failure with hypoxia (2) Aspiration pneumonia Code(s): J69.0 - PNEUMONITIS DUE TO INHALATION OF FOOD AND VOMIT Status: Suspected Qualifiers: Aspiration pneumonia type: due to regurgitated food Laterality: bilateral (3) Afib Code(s): I48.91 - UNSPECIFIED ATRIAL FIBRILLATION Status: Chronic Qualifiers: Atrial fibrillation type: paroxysmal Qualified Code(s): I48.0 - Paroxysmal atrial fibrillation (4) Anxiety and depression Code(s): F41.8 - OTHER SPECIFIED ANXIETY DISORDERS Status: Chronic (5) COPD (chronic obstructive pulmonary disease) Status: Chronic Qualifiers: COPD type: chronic bronchitis (6) Chronic diastolic heart failure Code(s): I50.32 - CHRONIC DIASTOLIC (CONGESTIVE) HEART FAILURE Status: Chronic (7) Chronic low back pain Code(s): M54.5 - LOW BACK PAIN; G89.29 - OTHER CHRONIC PAIN Status: Chronic (8) Dysphagia Code(s): R13.10 - DYSPHAGIA, UNSPECIFIED Status: Chronic (9) GERD (gastroesophageal reflux disease) Code(s): K21.9 - GASTRO-ESOPHAGEAL REFLUX DISEASE WITHOUT ESOPHAGITIS Status: Chronic Qualifiers: Esophagitis presence: esophagitis presence not specified Qualified Code(s) : K21.9 - Gastro-esophageal reflux disease without esophagitis (10) Hypertension Code(s): I10 - ESSENTIAL (PRIMARY) HYPERTENSION Status: Chronic Qualifiers: (11) Hypothyroidism Code(s): E03.9 - HYPOTHYROIDISM, UNSPECIFIED Status: Chronic Qualifiers: (12) Obesity (BMI 30-39.9) Code(s): E66.9 - OBESITY, UNSPECIFIED Status: Chronic (13) Physical deconditioning Code(s): R53.81 - OTHER MALAISE Status: Chronic (14) Acute encephalopathy Code(s): G93.40 - ENCEPHALOPATHY, UNSPECIFIED Status: Acute - Plan recurrent hospitalization for aspiration related issues or polypharmacy was recently dc'd on 03/12/20 on keflex for uti/pna CT brain shows no ac cva, likely is depressed, a week back. d/w daughter x2 today, gave full updates suggest palliative care for comfort care and hospice. may dc antibiotics if ok with Pulmonology continue amiodarone, eliquis, norvasc, coreg, lipitor, prozac, dulera inh, synthroid is not eating, start iv fluids, replace potassium prognosis guareded
[2020-03-27] MEDS: Atorvastatin Calcium 10 MG TAB PO SCH (21:07)
[2020-03-27] MEDS: Potassium Chloride 20 MEQ in Premix Bag 1 BAG IVPB SCH (23:37)
[2020-03-27] MEDS: HYDROcodone/Acetaminophen 10/325 mg Tablet PO PRN (23:38)
[2020-03-28] MEDS: Potassium Chloride 20 MEQ in Premix Bag 1 BAG IVPB SCH (02:14)
[2020-03-28] MEDS: Cefepime 2 GM in Sodium Chloride 0.9% 100 ML IVPB SCH ×2 (03:53→13:17)
[2020-03-28] MEDS: Levothyroxine Sodium 125 MCG TAB PO SCH (05:55)
[2020-03-28] MEDS: Dextrose 5 % And 0.9 % NaCl 1,000 ML IV SCH ×2 (05:55→16:40)
[2020-03-28] MEDS: hydrALAZINE 20 MG/ML VIAL SLOW IVP PRN ×2 (05:55→23:48)
[2020-03-28 06:41] LABS: Band 6 % (5-11); Hemoglobin 10.5 g/dL (12.0-16.0); Lymphocytes 16 % (21-51); MDiff Complete? YES; Mean Corpuscular HGB CONC 29.5 g/dL (32.0-36.0); Mean Corpuscular Hemoglobin 27.4 pg (27.0-31.0); Mean Corpuscular Volume 92.9 fL (78.0-98.0); Mean Platelet Volume 8.2 fL (7.4-10.4); Metamyelocyte 1 % (0-0); Monocytes 7 % (0-10); Neutrophil 68 % (42-75); Platelet Count 215 thou/uL (130-400); Platelet Morphology Comment Appears Adequate; RBC Distribution Width 15.5 % (11.5-14.5); Red Blood Cell (RBC) Count 3.84 mill/uL (4.20-5.40); White Blood Cell (WBC) Count 11.8 thou/uL (4.8-10.8)
[2020-03-28 06:59] LABS: Anion Gap 15 mmol/L (10-20); BUN (Urea Nitrogen) 18 mg/dL (9.8-20.1); Calc. Creatinine Clearance 54 mL/min (70-130); Calcium 8.8 mg/dL (7.8-10.44); Carbon Dioxide 26 mmol/L (23-31); Chloride 108 mmol/L (98-107); Estimated GFR-MDRD 42; Glucose 131 mg/dL (83-110); Potassium 3.4 mmol/L (3.5-5.1); Sodium 146 mmol/L (136-145)
[2020-03-28] MEDS: Mometasone 200 MCG/Formoterol 5 MCG 120 PUFF INHALER INH SCH ×2 (07:13→19:14)
[2020-03-28] MEDS: FLUoxetine HCl 10 MG CAP PO SCH ×2 (08:59→13:09)
[2020-03-28] MEDS: Carvedilol 6.25 MG TAB PO SCH ×3 (08:59→20:15)
[2020-03-28] MEDS: Apixaban 2.5 MG TAB PO SCH ×3 (08:59→20:15)
[2020-03-28] MEDS: Amlodipine 10 MG TAB PO SCH ×2 (09:00→13:02)
[2020-03-28] MEDS: Amiodarone 200 MG TAB PO SCH ×2 (09:00→13:07)
--- NOTE | 2020-03-28 09:48 | PRG ---
DATE OF SERVICE: 03/28/2020 SUBJECTIVE: Cecilia Santizo this morning still remains encephalopathic and barely arousable. OBJECTIVE: VITAL SIGNS: Temperature 98, pulse 90, respirations 20, sat is 100%, and blood pressure 182/85. CHEST: Decreased breath sounds. No wheezing. CARDIAC: Normal S1, S2. No gallops. ABDOMEN: No masses. LABORATORY DATA: Creatinine is 1.23. White count 9000. CT head was negative. IMPRESSION: Acute on chronic respiratory failure, recurrent admission for encephalopathy and aspiration. PLAN: Discussed with the daughter at length. Prognosis is grave. She is still considering other family members. Job ID: [id number]
--- NOTE | 2020-03-28 18:35 | PDOC.HOSPP ---
- Subjective Encounter Date: 03/28/20 - Objective Vital Signs & Weight: Vital Signs (12 hours) Temp Pulse Resp BP BP Pulse Ox 03/28/20 16:00 98.2 F 84 20 154/73 H 96 03/28/20 13:07 192/92 H 03/28/20 13:02 96 03/28/20 12:30 98.5 F 96 20 188/100 H 97 03/28/20 08:00 100 03/28/20 07:52 98.2 F 90 20 182/85 H 100 Weight Admit Weight 207 lb Weight 207 lb 11.2 oz I&O: 03/27/20 03/28/20 03/29/20 06:59 06:59 06:59 Intake Total 120 420 Output Total 825 Balance -705 420 Result Diagrams: 03/28/20 06:20 03/28/20 06:20 Hospitalist ROS - Medication Medications: Active Medications Generic Name Dose Route Start Last Admin Trade Name Freq PRN Reason Stop Dose Admin Hydrocodone Bitart/Acetaminophen 1 tab 03/27/20 22:50 03/27/20 23:38 [place] 10/325 PO 1 tab Q4HR PRN Administration Pain 4-6 Amiodarone HCl 100 mg 03/25/20 09:00 03/28/20 13:07 Cordarone PO 100 mg DAILY JERMAINE Administration Amlodipine Besylate 10 mg 03/26/20 09:00 03/28/20 13:02 Norvasc PO 10 mg DAILY JERMAINE Administration Apixaban 2.5 mg 03/25/20 09:00 03/28/20 13:08 Eliquis PO 2.5 mg BID JERMAINE Administration Atorvastatin Calcium 10 mg 03/25/20 21:00 03/27/20 21:07 Lipitor PO 10 mg HS JERMAINE Administration Carvedilol 12.5 mg 03/25/20 09:00 03/28/20 13:07 Coreg PO 12.5 mg BID JERMAINE Administration Fluoxetine HCl 30 mg 03/25/20 09:00 03/28/20 13:09 Prozac PO 30 mg DAILY JERMAINE Administration Hydralazine HCl 10 mg 03/25/20 17:34 03/28/20 05:55 Apresoline SLOW IVP 10 mg Q4H PRN Administration SBP >160 Cefepime HCl 2 gm/ Sodium 100 mls @ 200 mls/hr 03/25/20 14:00 03/28/20 13:17 Chloride IVPB 100 mls 0200,1400 JERMAINE Administration Dextrose/Sodium Chloride 1,000 mls @ 100 mls/hr 03/27/20 10:15 03/28/20 16:40 D5 0.9% Ns IV 1,000 mls .Q10H JERMAINE Administration Levothyroxine Sodium 125 mcg 03/25/20 06:00 03/28/20 05:55 Synthroid PO 125 mcg 0600 JERMAINE Administration Mometasone Furoate/Formoterol Fumar 2 puff 03/25/20 06:30 03/28/20 07:13 Dulera 200 Mcg/5 Mcg Inhaler INH Not Given BID-RT JERMAINE Pantoprazole Sodium 40 mg 03/25/20 09:00 03/28/20 13:01 Protonix PO 40 mg DAILY JERMAINE Administration Sodium Chloride 10 ml 03/27/20 09:00 03/28/20 09:01 Flush - Normal Saline IVF Not Given Q12HR JERMAINE - Exam General Appearance: awake alert Neck: supple Respiratory: normal chest expansion, no tachypnea Extremities: no cyanosis, no clubbing Neurological: cranial nerve grossly intact, no focal deficits Hosp A/P - Plan Hosp A/P (1) Acute and chronic respiratory failure Code(s): J96.20 - ACUTE AND CHR RESP FAILURE, UNSP W HYPOXIA OR HYPERCAPNIA Status: Acute Qualifiers: Respiratory failure complication: hypoxia Qualified Code(s): J96.21 - Acute and chronic respiratory failure with hypoxia (2) Aspiration pneumonia Code(s): J69.0 - PNEUMONITIS DUE TO INHALATION OF FOOD AND VOMIT Status: Suspected Qualifiers: Aspiration pneumonia type: due to regurgitated food Laterality: bilateral (3) Afib Code(s): I48.91 - UNSPECIFIED ATRIAL FIBRILLATION Status: Chronic Qualifiers: Atrial fibrillation type: paroxysmal Qualified Code(s): I48.0 - Paroxysmal atrial fibrillation (4) Anxiety and depression Code(s): F41.8 - OTHER SPECIFIED ANXIETY DISORDERS Status: Chronic (5) COPD (chronic obstructive pulmonary disease) Status: Chronic Qualifiers: COPD type: chronic bronchitis (6) Chronic diastolic heart failure Code(s): I50.32 - CHRONIC DIASTOLIC (CONGESTIVE) HEART FAILURE Status: Chronic (7) Chronic low back pain Code(s): M54.5 - LOW BACK PAIN; G89.29 - OTHER CHRONIC PAIN Status: Chronic (8) Dysphagia Code(s): R13.10 - DYSPHAGIA, UNSPECIFIED Status: Chronic (9) GERD (gastroesophageal reflux disease) Code(s): K21.9 - GASTRO-ESOPHAGEAL REFLUX DISEASE WITHOUT ESOPHAGITIS Status: Chronic Qualifiers: Esophagitis presence: esophagitis presence not specified Qualified Code(s) : K21.9 - Gastro-esophageal reflux disease without esophagitis (10) Hypertension Code(s): I10 - ESSENTIAL (PRIMARY) HYPERTENSION Status: Chronic Qualifiers: (11) Hypothyroidism Code(s): E03.9 - HYPOTHYROIDISM, UNSPECIFIED Status: Chronic Qualifiers: (12) Obesity (BMI 30-39.9) Code(s): E66.9 - OBESITY, UNSPECIFIED Status: Chronic (13) Physical deconditioning Code(s): R53.81 - OTHER MALAISE Status: Chronic (14) Acute encephalopathy Code(s): G93.40 - ENCEPHALOPATHY, UNSPECIFIED Status: Acute - Plan 03/27: Recurrent hospitalization for aspiration related issues or polypharmacy was recently dc'd on 03/12/20 on keflex for uti/pna CT brain shows no ac cva, likely is depressed, a week back. d/w daughter x2 today, gave full updates suggest palliative care for comfort care and hospice. may dc antibiotics if ok with Pulmonology continue amiodarone, eliquis, norvasc, coreg, lipitor, prozac, dulera inh, synthroid is not eating, start iv fluids, replace potassium prognosis guareded. 03/28: Remains stable. Family would like to wait until their father this weekend before decisions about end of life care.
[2020-03-28] MEDS: Atorvastatin Calcium 10 MG TAB PO SCH ×2 (20:14→20:15)
[2020-03-29] MEDS: Cefepime 2 GM in Sodium Chloride 0.9% 100 ML IVPB SCH ×2 (01:15→14:01)
[2020-03-29] MEDS: Dextrose 5 % And 0.9 % NaCl 1,000 ML IV SCH (01:16)
[2020-03-29] MEDS: HYDROcodone/Acetaminophen 10/325 mg Tablet PO PRN (02:04)
[2020-03-29] MEDS: Levothyroxine Sodium 125 MCG TAB PO SCH (05:09)
[2020-03-29] MEDS: hydrALAZINE 20 MG/ML VIAL SLOW IVP PRN ×4 (05:19→20:01)
[2020-03-29] MEDS: Mometasone 200 MCG/Formoterol 5 MCG 120 PUFF INHALER INH SCH ×2 (07:03→19:44)
[2020-03-29 08:15] LABS: Anion Gap 13 mmol/L (10-20); BUN (Urea Nitrogen) 14 mg/dL (9.8-20.1); Calc. Creatinine Clearance 60 mL/min (70-130); Calcium 8.3 mg/dL (7.8-10.44); Carbon Dioxide 26 mmol/L (23-31); Chloride 111 mmol/L (98-107); Estimated GFR-MDRD 47; Glucose 127 mg/dL (83-110); Sodium 147 mmol/L (136-145)
[2020-03-29] MEDS: Apixaban 2.5 MG TAB PO SCH ×2 (08:15→20:00)
[2020-03-29] MEDS: Amiodarone 200 MG TAB PO SCH (08:15)
[2020-03-29] MEDS: Carvedilol 6.25 MG TAB PO SCH ×2 (08:15→20:01)
[2020-03-29] MEDS: Amlodipine 10 MG TAB PO SCH (08:15)
[2020-03-29] MEDS: FLUoxetine HCl 10 MG CAP PO SCH (08:16)
[2020-03-29 08:18] LABS: Potassium 2.5 mmol/L (3.5-5.1)
[2020-03-29] MEDS: Potassium Chloride 20 MEQ in Premix Bag 1 BAG IVPB SCH ×4 (09:29→20:00)
[2020-03-29 09:31] LABS: Band 1 % (5-11); Eosinophils 4 % (0-10); Hemoglobin 9.8 g/dL (12.0-16.0); Lymphocytes 13 % (21-51); MDiff Complete? YES; Mean Corpuscular Hemoglobin 28.6 pg (27.0-31.0); Mean Corpuscular Volume 92.3 fL (78.0-98.0); Mean Platelet Volume 8.2 fL (7.4-10.4); Monocytes 6 % (0-10); Neutrophil 76 % (42-75); Platelet Count 192 thou/uL (130-400); RBC Distribution Width 15.1 % (11.5-14.5); Red Blood Cell (RBC) Count 3.42 mill/uL (4.20-5.40); White Blood Cell (WBC) Count 9.8 thou/uL (4.8-10.8)
[2020-03-29] MEDS: Dextrose 5% in Water 1,000 ML IV SCH (11:52)
--- NOTE | 2020-03-29 14:39 | EKG ---
Test Reason : Blood Pressure : / mmHG Vent. Rate : 090 BPM Atrial Rate : 090 BPM P-R Int : 210 ms QRS Dur : 112 ms QT Int : 438 ms P-R-T Axes : 039 -53 142 degrees QTc Int : 535 ms Sinus rhythm with 1st degree A-V block Left axis deviation Possible Lateral infarct , age undetermined T wave abnormality, consider anterior ischemia Prolonged QT Abnormal ECG Confirmed by ALEC ÁLVAREZ ([id number]), dictionary editor WALDO PYLE ([id number]) on 03/29/2020 2:39:27 PM Referred By: Confirmed By:ALEC ÁLVAREZ
--- NOTE | 2020-03-29 14:50 | PRG ---
DATE OF SERVICE: 03/29/2020 SUBJECTIVE: The patient is out COVID-19 isolation. She is breathing a little better. OBJECTIVE: VITAL SIGNS: Temperature 98.0, pulse 88, respirations 18, O2 saturation 95%, and blood pressure 179/82. HEENT: Unremarkable. NECK: No adenopathy or JVD. LUNGS: Clear except for some scant crackles. LABORATORY DATA: White blood cell count 9.8, hematocrit 31.5, and platelet count 192. Sodium 147, potassium 2.5, BUN 14, creatinine 1.1, and glucose 127. ASSESSMENT: 1. Recurrent aspiration pneumonia. 2. End-stage lungs. 3. Encephalopathy. RECOMMENDATION: She is currently on antibiotics. She has repetitively been on antibiotics over the last several months and it does not do much good. She has steadfastly refused PEG tube placement. The best we can do is supportive care anticipating she will have further admissions because this problem is not repairable. Job ID: [id number]
[2020-03-29] MEDS ORDERED: Artificial Tears 18 DROP/0.9 ML EA EYE SCH (18:30)
[2020-03-29] MEDS ORDERED: Artificial Tear Sol 15 ML BOT EA EYE SCH (20:00)
[2020-03-29] MEDS: Atorvastatin Calcium 10 MG TAB PO SCH (20:00)
[2020-03-29] MEDS: Artificial Tear Sol 15 ML BOT EA EYE SCH ×2 (20:23→20:42)
--- NOTE | 2020-03-29 21:47 | PDOC.HOSPP ---
- Subjective Encounter Date: 03/29/20 - Objective Vital Signs & Weight: Vital Signs (12 hours) Temp Pulse Resp BP BP Pulse Ox 03/29/20 20:01 98 188/83 H 03/29/20 20:00 124/73 100 03/29/20 19:19 98.1 F 98 22 H 190/83 H 100 03/29/20 17:48 167/89 H 03/29/20 15:55 98.2 F 98 16 174/87 H 95 03/29/20 14:10 173/81 H 03/29/20 12:14 179/82 H 03/29/20 11:35 98.0 F 88 18 178/85 H 95 Weight Admit Weight 207 lb Weight 207 lb 11.2 oz I&O: 03/28/20 03/29/20 03/30/20 06:59 06:59 06:59 Intake Total 120 2200 980 Output Total 825 Balance -705 2200 980 Result Diagrams: 03/29/20 07:36 03/29/20 07:36 Hospitalist ROS - Medication Medications: Active Medications Generic Name Dose Route Start Last Admin Trade Name Freq PRN Reason Stop Dose Admin Hydrocodone Bitart/Acetaminophen 1 tab 03/27/20 22:50 03/29/20 02:04 [place] 10/325 PO 1 tab Q4HR PRN Administration Pain 4-6 Amiodarone HCl 100 mg 03/25/20 09:00 03/29/20 08:15 Cordarone PO 100 mg DAILY JERMAINE Administration Amlodipine Besylate 10 mg 03/26/20 09:00 03/29/20 08:15 Norvasc PO 10 mg DAILY JERMAINE Administration Apixaban 2.5 mg 03/25/20 09:00 03/29/20 20:00 Eliquis PO 2.5 mg BID JERMAINE Administration Artificial Tears 0 drop 03/29/20 20:00 03/29/20 20:23 Liquitears 15ml Bottle EA EYE 03/29/20 22:00 1 drop NOW JERMAINE Administration Atorvastatin Calcium 10 mg 03/25/20 21:00 03/29/20 20:00 Lipitor PO 10 mg HS JERMAINE Administration Carvedilol 12.5 mg 03/25/20 09:00 03/29/20 20:01 Coreg PO 12.5 mg BID JERMAINE Administration Fluoxetine HCl 30 mg 03/25/20 09:00 03/29/20 08:16 Prozac PO 30 mg DAILY JERMAINE Administration Hydralazine HCl 10 mg 03/25/20 17:34 03/29/20 20:01 Apresoline SLOW IVP 10 mg Q4H PRN Administration SBP >160 Cefepime HCl 2 gm/ Sodium 100 mls @ 200 mls/hr 03/25/20 14:00 03/29/20 14:01 Chloride IVPB 100 mls 0200,1400 JERMAINE Administration Potassium Chloride 20 meq/ 100 mls @ 50 mls/hr 03/29/20 09:00 03/29/20 20:00 Device IVPB 03/29/20 22:59 100 mls Q4HR JERMAINE Administration Dextrose/Water 1,000 mls @ 75 mls/hr 03/29/20 11:15 03/29/20 11:52 D5w IV 1,000 mls .[id number] JERMAINE Administration Levothyroxine Sodium 125 mcg 03/25/20 06:00 03/29/20 05:09 Synthroid PO 125 mcg 0600 JERMAINE Administration Mometasone Furoate/Formoterol Fumar 2 puff 03/25/20 06:30 03/29/20 19:44 Dulera 200 Mcg/5 Mcg Inhaler INH 2 puff BID-RT JERMAINE Administration Pantoprazole Sodium 40 mg 03/25/20 09:00 03/29/20 08:15 Protonix PO 40 mg DAILY JERMAINE Administration Sodium Chloride 10 ml 03/27/20 09:00 03/29/20 20:58 Flush - Normal Saline IVF Not Given Q12HR JERMAINE - Exam General Appearance: awake alert ENT: normocephalic atraumatic Neck: supple Respiratory: normal chest expansion, no tachypnea Extremities: no cyanosis Neurological: cranial nerve grossly intact Hosp A/P - Plan Hosp A/P (1) Acute and chronic respiratory failure Code(s): J96.20 - ACUTE AND CHR RESP FAILURE, UNSP W HYPOXIA OR HYPERCAPNIA Status: Acute Qualifiers: Respiratory failure complication: hypoxia Qualified Code(s): J96.21 - Acute and chronic respiratory failure with hypoxia (2) Aspiration pneumonia Code(s): J69.0 - PNEUMONITIS DUE TO INHALATION OF FOOD AND VOMIT Status: Suspected Qualifiers: Aspiration pneumonia type: due to regurgitated food Laterality: bilateral (3) Afib Code(s): I48.91 - UNSPECIFIED ATRIAL FIBRILLATION Status: Chronic Qualifiers: Atrial fibrillation type: paroxysmal Qualified Code(s): I48.0 - Paroxysmal atrial fibrillation (4) Anxiety and depression Code(s): F41.8 - OTHER SPECIFIED ANXIETY DISORDERS Status: Chronic (5) COPD (chronic obstructive pulmonary disease) Status: Chronic Qualifiers: COPD type: chronic bronchitis (6) Chronic diastolic heart failure Code(s): I50.32 - CHRONIC DIASTOLIC (CONGESTIVE) HEART FAILURE Status: Chronic (7) Chronic low back pain Code(s): M54.5 - LOW BACK PAIN; G89.29 - OTHER CHRONIC PAIN Status: Chronic (8) Dysphagia Code(s): R13.10 - DYSPHAGIA, UNSPECIFIED Status: Chronic (9) GERD (gastroesophageal reflux disease) Code(s): K21.9 - GASTRO-ESOPHAGEAL REFLUX DISEASE WITHOUT ESOPHAGITIS Status: Chronic Qualifiers: Esophagitis presence: esophagitis presence not specified Qualified Code(s) : K21.9 - Gastro-esophageal reflux disease without esophagitis (10) Hypertension Code(s): I10 - ESSENTIAL (PRIMARY) HYPERTENSION Status: Chronic Qualifiers: (11) Hypothyroidism Code(s): E03.9 - HYPOTHYROIDISM, UNSPECIFIED Status: Chronic Qualifiers: (12) Obesity (BMI 30-39.9) Code(s): E66.9 - OBESITY, UNSPECIFIED Status: Chronic (13) Physical deconditioning Code(s): R53.81 - OTHER MALAISE Status: Chronic (14) Acute encephalopathy Code(s): G93.40 - ENCEPHALOPATHY, UNSPECIFIED Status: Acute - Plan 03/27: Recurrent hospitalization for aspiration related issues or polypharmacy was recently dc'd on 03/12/20 on keflex for uti/pna CT brain shows no ac cva, likely is depressed, a week back. d/w daughter x2 today, gave full updates suggest palliative care for comfort care and hospice. may dc antibiotics if ok with Pulmonology continue amiodarone, eliquis, norvasc, coreg, lipitor, prozac, dulera inh, synthroid is not eating, start iv fluids, replace potassium prognosis guareded. 03/28: Remains stable. Family would like to wait until their father this weekend before decisions about end of life care. 03/29: The patient has been refusing to eat or take her medications. Consult speech therapy to assess her swallowing abilities. Otherwise continue management as noted above.
[2020-03-30] MEDS ORDERED: diphenhydrAMINE 25 MG CAP PO PRN (00:05)
[2020-03-30] MEDS ORDERED: Gabapentin 300 MG CAP PO SCH (00:15)
[2020-03-30] MEDS: Artificial Tear Sol 15 ML BOT EA EYE SCH ×5 (00:21→23:24)
[2020-03-30] MEDS: Dextrose 5% in Water 1,000 ML IV SCH ×3 (00:35→13:12)
[2020-03-30] MEDS: Cefepime 2 GM in Sodium Chloride 0.9% 100 ML IVPB SCH ×2 (02:15→14:08)
[2020-03-30] MEDS: Levothyroxine Sodium 125 MCG TAB PO SCH ×2 (05:37→08:15)
[2020-03-30 06:25] LABS: Anion Gap 9 mmol/L (10-20); BUN (Urea Nitrogen) 13 mg/dL (9.8-20.1); Calc. Creatinine Clearance 63 mL/min (70-130); Calcium 7.6 mg/dL (7.8-10.44); Carbon Dioxide 25 mmol/L (23-31); Chloride 111 mmol/L (98-107); Estimated GFR-MDRD 50; Glucose 106 mg/dL (83-110); Potassium 3.2 mmol/L (3.5-5.1); Sodium 142 mmol/L (136-145)
[2020-03-30] MEDS ORDERED: Potassium Chloride 20 MEQ TAB PO SCH (06:38)
[2020-03-30 06:41] LABS: Band 1 % (5-11); Eosinophils 1 % (0-10); Hemoglobin 9.1 g/dL (12.0-16.0); Hypochromia SLIGHT = 6-15 cells (100X) (0-5/hpf); Lymphocytes 14 % (21-51); MDiff Complete? YES; Mean Corpuscular HGB CONC 31.4 g/dL (32.0-36.0); Mean Corpuscular Hemoglobin 29.1 pg (27.0-31.0); Mean Corpuscular Volume 92.7 fL (78.0-98.0); Mean Platelet Volume 8.3 fL (7.4-10.4); Metamyelocyte 2 % (0-0); Monocytes 3 % (0-10); Neutrophil 79 % (42-75); Platelet Count 184 thou/uL (130-400); Platelet Morphology Comment Appears Adequate; RBC Distribution Width 15.1 % (11.5-14.5); Red Blood Cell (RBC) Count 3.12 mill/uL (4.20-5.40); White Blood Cell (WBC) Count 8.7 thou/uL (4.8-10.8)
[2020-03-30] MEDS: Mometasone 200 MCG/Formoterol 5 MCG 120 PUFF INHALER INH SCH ×2 (07:13→18:38)
[2020-03-30] MEDS: Amiodarone 200 MG TAB PO SCH (07:57)
[2020-03-30] MEDS: Apixaban 2.5 MG TAB PO SCH ×2 (07:57→20:51)
[2020-03-30] MEDS: Amlodipine 10 MG TAB PO SCH (07:57)
[2020-03-30] MEDS: Carvedilol 6.25 MG TAB PO SCH ×2 (07:57→20:51)
[2020-03-30] MEDS: FLUoxetine HCl 10 MG CAP PO SCH (07:57)
[2020-03-30] MEDS: Potassium Chloride 20 MEQ in Premix Bag 1 BAG IVPB SCH ×2 (14:07→17:50)
--- NOTE | 2020-03-30 20:06 | PDOC.HOSPP ---
- Subjective Encounter Date: 03/30/20 Subjective: The patient appears to be more alert today. She was able to eat more when her family were present. - Objective Vital Signs & Weight: Vital Signs (12 hours) Temp Pulse Resp BP BP Pulse Ox 03/30/20 19:38 99.1 F 77 20 175/71 H 93 L 03/30/20 15:48 98.7 F 89 18 151/78 H 92 L 03/30/20 12:30 98.1 F 85 16 152/71 H 93 L Weight Admit Weight 207 lb Weight 207 lb 11.2 oz I&O: 03/29/20 03/30/20 03/31/20 06:59 06:59 06:59 Intake Total 2200 2110 990 Balance 2200 2110 990 Result Diagrams: 03/30/20 05:40 03/30/20 05:40 Hospitalist ROS - Medication Medications: Active Medications Generic Name Dose Route Start Last Admin Trade Name Freq PRN Reason Stop Dose Admin Hydrocodone Bitart/Acetaminophen 1 tab 03/27/20 22:50 03/29/20 02:04 [place] 10/325 PO 1 tab Q4HR PRN Administration Pain 4-6 Amiodarone HCl 100 mg 03/25/20 09:00 03/30/20 07:57 Cordarone PO 100 mg DAILY JERMAINE Administration Amlodipine Besylate 10 mg 03/26/20 09:00 03/30/20 07:57 Norvasc PO 10 mg DAILY JERMAINE Administration Apixaban 2.5 mg 03/25/20 09:00 03/30/20 07:57 Eliquis PO 2.5 mg BID JERMAINE Administration Artificial Tears 0 drop 03/29/20 23:59 03/30/20 17:51 Liquitears 15ml Bottle EA EYE 1 drop Q6HR JERMAINE Administration Atorvastatin Calcium 10 mg 03/25/20 21:00 03/29/20 20:00 Lipitor PO 10 mg HS JERMAINE Administration Carvedilol 12.5 mg 03/25/20 09:00 03/30/20 07:57 Coreg PO 12.5 mg BID JERMAINE Administration Fluoxetine HCl 30 mg 03/25/20 09:00 03/30/20 07:57 Prozac PO 30 mg DAILY JERMAINE Administration Hydralazine HCl 10 mg 03/25/20 17:34 03/29/20 20:01 Apresoline SLOW IVP 10 mg Q4H PRN Administration SBP >160 Cefepime HCl 2 gm/ Sodium 100 mls @ 200 mls/hr 03/25/20 14:00 03/30/20 14:08 Chloride IVPB 100 mls 0200,1400 JERMAINE Administration Dextrose/Water 1,000 mls @ 75 mls/hr 03/29/20 11:15 03/30/20 13:12 D5w IV Not Given .[id number] JERMAINE Levothyroxine Sodium 125 mcg 03/25/20 06:00 03/30/20 08:15 Synthroid PO 125 mcg 0600 JERMAINE Administration Mometasone Furoate/Formoterol Fumar 2 puff 03/25/20 06:30 03/30/20 18:38 Dulera 200 Mcg/5 Mcg Inhaler INH 2 puff BID-RT JERMAINE Administration Ondansetron HCl 4 mg 03/25/20 03:50 03/30/20 00:21 Zofran IVP 4 mg Q6H PRN Administration Nausea/Vomiting Pantoprazole Sodium 40 mg 03/25/20 09:00 03/30/20 07:57 Protonix PO 40 mg DAILY JERMAINE Administration Sodium Chloride 10 ml 03/27/20 09:00 03/30/20 08:01 Flush - Normal Saline IVF 10 ml Q12HR JERMAINE Administration - Exam General Appearance: awake alert ENT: normocephalic atraumatic Neck: supple Respiratory: normal chest expansion, no tachypnea Neurological: cranial nerve grossly intact, no focal deficits Hosp A/P - Plan Hosp A/P (1) Acute and chronic respiratory failure Code(s): J96.20 - ACUTE AND CHR RESP FAILURE, UNSP W HYPOXIA OR HYPERCAPNIA Status: Acute Qualifiers: Respiratory failure complication: hypoxia Qualified Code(s): J96.21 - Acute and chronic respiratory failure with hypoxia (2) Aspiration pneumonia Code(s): J69.0 - PNEUMONITIS DUE TO INHALATION OF FOOD AND VOMIT Status: Suspected Qualifiers: Aspiration pneumonia type: due to regurgitated food Laterality: bilateral (3) Afib Code(s): I48.91 - UNSPECIFIED ATRIAL FIBRILLATION Status: Chronic Qualifiers: Atrial fibrillation type: paroxysmal Qualified Code(s): I48.0 - Paroxysmal atrial fibrillation (4) Anxiety and depression Code(s): F41.8 - OTHER SPECIFIED ANXIETY DISORDERS Status: Chronic (5) COPD (chronic obstructive pulmonary disease) Status: Chronic Qualifiers: COPD type: chronic bronchitis (6) Chronic diastolic heart failure Code(s): I50.32 - CHRONIC DIASTOLIC (CONGESTIVE) HEART FAILURE Status: Chronic (7) Chronic low back pain Code(s): M54.5 - LOW BACK PAIN; G89.29 - OTHER CHRONIC PAIN Status: Chronic (8) Dysphagia Code(s): R13.10 - DYSPHAGIA, UNSPECIFIED Status: Chronic (9) GERD (gastroesophageal reflux disease) Code(s): K21.9 - GASTRO-ESOPHAGEAL REFLUX DISEASE WITHOUT ESOPHAGITIS Status: Chronic Qualifiers: Esophagitis presence: esophagitis presence not specified Qualified Code(s) : K21.9 - Gastro-esophageal reflux disease without esophagitis (10) Hypertension Code(s): I10 - ESSENTIAL (PRIMARY) HYPERTENSION Status: Chronic Qualifiers: (11) Hypothyroidism Code(s): E03.9 - HYPOTHYROIDISM, UNSPECIFIED Status: Chronic Qualifiers: (12) Obesity (BMI 30-39.9) Code(s): E66.9 - OBESITY, UNSPECIFIED Status: Chronic (13) Physical deconditioning Code(s): R53.81 - OTHER MALAISE Status: Chronic (14) Acute encephalopathy Code(s): G93.40 - ENCEPHALOPATHY, UNSPECIFIED Status: Acute - Plan Recurrent hospitalization for aspiration related issues or polypharmacy She was recently dc'd on 03/12/20 on keflex for uti/pna CT brain shows no ac cva, likely is depressed, a week back. Continue amiodarone, eliquis, norvasc, coreg, lipitor, prozac, dulera inh, synthroid. Per speech therapy, the patient does have a long history of dysphagia and failed swallow evaluation multiple times. Prior modified barium swallow studies revealed evidence of silent aspiration. Prior discussions with the patient and her family resulted in them making the decision to pursue diet with risk of aspiration. Modified diet was recommended but the patient is not compliant with diet. Palliative care is in discussion with the patient and family regarding transition to hospice.
[2020-03-30] MEDS: Atorvastatin Calcium 10 MG TAB PO SCH (20:51)
[2020-03-30] MEDS ORDERED: diphenhydrAMINE 25 MG CAP PO SCH (23:30)
[2020-03-31] MEDS: Cefepime 2 GM in Sodium Chloride 0.9% 100 ML IVPB SCH ×2 (01:48→14:10)
[2020-03-31] MEDS: Dextrose 5% in Water 1,000 ML IV SCH ×2 (01:48→16:59)
[2020-03-31] MEDS: HYDROcodone/Acetaminophen 10/325 mg Tablet PO PRN ×2 (02:03→08:54)
[2020-03-31] MEDS: Levothyroxine Sodium 125 MCG TAB PO SCH (06:01)
[2020-03-31] MEDS: Artificial Tear Sol 15 ML BOT EA EYE SCH ×3 (06:02→18:27)
[2020-03-31 06:12] LABS: Anion Gap 11 mmol/L (10-20); BUN (Urea Nitrogen) 12 mg/dL (9.8-20.1); Calc. Creatinine Clearance 59 mL/min (70-130); Calcium 7.7 mg/dL (7.8-10.44); Carbon Dioxide 23 mmol/L (23-31); Chloride 109 mmol/L (98-107); Estimated GFR-MDRD 46; Glucose 100 mg/dL (83-110); Potassium 3.4 mmol/L (3.5-5.1); Sodium 140 mmol/L (136-145)
--- NOTE | 2020-03-31 08:28 | PDOC.HOSPP ---
- Subjective Encounter Date: 03/31/20 Encounter Time: 13:20 Subjective: Patient without complaints. Very sad about losing her . Not eating at all. - Objective Vital Signs & Weight: Vital Signs (12 hours) Temp Pulse Resp BP BP Pulse Ox 03/31/20 07:03 98.0 F 91 16 172/84 H 97 03/31/20 03:55 98.2 F 91 20 167/83 H 97 03/30/20 23:33 98.3 F 03/30/20 20:51 175/71 H Weight Admit Weight 207 lb Weight 207 lb 11.2 oz I&O: 03/30/20 03/31/20 04/01/20 06:59 06:59 06:59 Intake Total 0 990 Balance 0 990 Result Diagrams: 03/31/20 05:39 03/31/20 05:39 Hospitalist ROS - Review of Systems Constitutional: denies: fever Respiratory: denies: cough, shortness of breath Cardiovascular: denies: chest pain, palpitations Gastrointestinal: denies: nausea, vomiting, abdominal pain - Medication Medications: Active Medications Generic Name Dose Route Start Last Admin Trade Name Freq PRN Reason Stop Dose Admin Hydrocodone Bitart/Acetaminophen 1 tab 03/27/20 22:50 03/31/20 02:03 [place] 10/325 PO 1 tab Q4HR PRN Administration Pain 4-6 Amiodarone HCl 100 mg 03/25/20 09:00 03/30/20 07:57 Cordarone PO 100 mg DAILY JERMAINE Administration Amlodipine Besylate 10 mg 03/26/20 09:00 03/30/20 07:57 Norvasc PO 10 mg DAILY JERMAINE Administration Apixaban 2.5 mg 03/25/20 09:00 03/30/20 20:51 Eliquis PO 2.5 mg BID JERMAINE Administration Artificial Tears 0 drop 03/29/20 23:59 03/31/20 06:02 Liquitears 15ml Bottle EA EYE 1 drop Q6HR JERMAINE Administration Atorvastatin Calcium 10 mg 03/25/20 21:00 03/30/20 20:51 Lipitor PO 10 mg HS JERMAINE Administration Carvedilol 12.5 mg 03/25/20 09:00 03/30/20 20:51 Coreg PO 12.5 mg BID JERMAINE Administration Fluoxetine HCl 30 mg 03/25/20 09:00 03/30/20 07:57 Prozac PO 30 mg DAILY JERMAINE Administration Hydralazine HCl 10 mg 03/25/20 17:34 03/29/20 20:01 Apresoline SLOW IVP 10 mg Q4H PRN Administration SBP >160 Cefepime HCl 2 gm/ Sodium 100 mls @ 200 mls/hr 03/25/20 14:00 03/31/20 01:48 Chloride IVPB 100 mls 0200,1400 JERMAINE Administration Dextrose/Water 1,000 mls @ 75 mls/hr 03/29/20 11:15 03/31/20 01:48 D5w IV 1,000 mls .[id number] JERMAINE Administration Levothyroxine Sodium 125 mcg 03/25/20 06:00 03/31/20 06:01 Synthroid PO 125 mcg 0600 JERMAINE Administration Mometasone Furoate/Formoterol Fumar 2 puff 03/25/20 06:30 03/30/20 18:38 Dulera 200 Mcg/5 Mcg Inhaler INH 2 puff BID-RT JERMAINE Administration Ondansetron HCl 4 mg 03/25/20 03:50 03/30/20 00:21 Zofran IVP 4 mg Q6H PRN Administration Nausea/Vomiting Pantoprazole Sodium 40 mg 03/25/20 09:00 03/30/20 07:57 Protonix PO 40 mg DAILY JERMAINE Administration Sodium Chloride 10 ml 03/27/20 09:00 03/30/20 20:55 Flush - Normal Saline IVF Not Given Q12HR JERMAINE - Exam General Appearance: NAD, awake alert ENT: moist mucosa Heart: RRR, no murmur, no gallops, no rubs Respiratory: no wheezes, no ronchi Respiratory - other findings: some coarse breath sounds in bases, decent air movement Gastrointestinal: soft, non-tender, non-distended, normal bowel sounds Psychiatric: normal behavior, oriented to person, oriented to place Psychiatric - other findings: appears depressed Hosp A/P (1) Acute and chronic respiratory failure with hypoxia Code(s): J96.21 - ACUTE AND CHRONIC RESPIRATORY FAILURE WITH HYPOXIA Status: Acute (2) Aspiration pneumonia Code(s): J69.0 - PNEUMONITIS DUE TO INHALATION OF FOOD AND VOMIT Status: Suspected Qualifiers: Aspiration pneumonia type: due to regurgitated food Laterality: bilateral (3) Dysphagia Code(s): R13.10 - DYSPHAGIA, UNSPECIFIED Status: Chronic Plan: with silent aspiration (4) Afib Code(s): I48.91 - UNSPECIFIED ATRIAL FIBRILLATION Status: Chronic Qualifiers: Atrial fibrillation type: paroxysmal Qualified Code(s): I48.0 - Paroxysmal atrial fibrillation (5) Anxiety and depression Code(s): F41.8 - OTHER SPECIFIED ANXIETY DISORDERS Status: Chronic (6) COPD (chronic obstructive pulmonary disease) Status: Chronic Qualifiers: COPD type: chronic bronchitis (7) Chronic diastolic heart failure Code(s): I50.32 - CHRONIC DIASTOLIC (CONGESTIVE) HEART FAILURE Status: Chronic (8) Chronic low back pain Code(s): M54.5 - LOW BACK PAIN; G89.29 - OTHER CHRONIC PAIN Status: Chronic (9) GERD (gastroesophageal reflux disease) Code(s): K21.9 - GASTRO-ESOPHAGEAL REFLUX DISEASE WITHOUT ESOPHAGITIS Status: Chronic Qualifiers: Esophagitis presence: esophagitis presence not specified Qualified Code(s) : K21.9 - Gastro-esophageal reflux disease without esophagitis (10) Hypertension Code(s): I10 - ESSENTIAL (PRIMARY) HYPERTENSION Status: Chronic Qualifiers: (11) Hypothyroidism Code(s): E03.9 - HYPOTHYROIDISM, UNSPECIFIED Status: Chronic Qualifiers: (12) Obesity (BMI 30-39.9) Code(s): E66.9 - OBESITY, UNSPECIFIED Status: Chronic - Plan Recurrent hospitalization for aspiration related issues On Cefepime since 03/25/2020, finishing 7 day course today She was recently dc'd on 03/12/20 on keflex for uti/pna CT brain shows no ac cva, likely is depressed, a week back. Continue amiodarone, eliquis, norvasc, coreg, lipitor, prozac, dulera inh, synthroid. Per speech therapy, the patient does have a long history of dysphagia and failed swallow evaluation multiple times. Prior modified barium swallow studies revealed evidence of silent aspiration. Prior discussions with the patient and her family resulted in them making the decision to pursue diet with risk of aspiration. Modified diet was recommended but the patient is not compliant with diet. Spiritual care and Palliative care is in discussion with the patient and family regarding transition to hospice. Likely d/c to hospice tomorrow.
[2020-03-31] MEDS: Amiodarone 200 MG TAB PO SCH (08:42)
[2020-03-31] MEDS: Amlodipine 10 MG TAB PO SCH (08:42)
[2020-03-31] MEDS: Carvedilol 6.25 MG TAB PO SCH ×2 (08:42→21:19)
[2020-03-31] MEDS: FLUoxetine HCl 10 MG CAP PO SCH (08:42)
[2020-03-31] MEDS: Apixaban 2.5 MG TAB PO SCH ×2 (08:42→21:19)
[2020-03-31] MEDS: Mometasone 200 MCG/Formoterol 5 MCG 120 PUFF INHALER INH SCH ×2 (08:50→19:29)
--- NOTE | 2020-03-31 09:48 | PRG ---
DATE OF SERVICE: 03/31/2020 SUBJECTIVE: This morning, she is awake, alert, responsive, less encephalopathic. Remains extremely weak. Unclear how much intake she has. OBJECTIVE: VITAL SIGNS: Temperature 98, O2 saturations are 93% on 3 L, respiratory rate 16, blood pressure 172/84. CHEST: Decreased breath sounds. No wheezing. CARDIAC: Normal S1, S2. No gallops. ABDOMEN: No masses. IMPRESSION: Recurrent hospitalization for recurrent encephalopathy, aspiration pneumonia. Comfort care. Would discontinue antibiotics at home. Hopefully, we can get hospice to assess. Job ID: [id number]
[2020-03-31 10:51] LABS: Hemoglobin 9.4 g/dL (12.0-16.0); Lymphocytes 21 % (21-51); MDiff Complete? YES; Mean Corpuscular HGB CONC 31.8 g/dL (32.0-36.0); Mean Corpuscular Volume 91.2 fL (78.0-98.0); Mean Platelet Volume 8.1 fL (7.4-10.4); Monocytes 7 % (0-10); Neutrophil 72 % (42-75); Platelet Count 178 thou/uL (130-400); Platelet Morphology Comment Appears Adequate; RBC Distribution Width 14.6 % (11.5-14.5); Red Blood Cell (RBC) Count 3.24 mill/uL (4.20-5.40); White Blood Cell (WBC) Count 9.2 thou/uL (4.8-10.8)
[2020-03-31] MEDS: Atorvastatin Calcium 10 MG TAB PO SCH (21:23)
[2020-04-01] MEDS: Artificial Tear Sol 15 ML BOT EA EYE SCH ×5 (00:25→22:40)
[2020-04-01] MEDS: Levothyroxine Sodium 125 MCG TAB PO SCH (05:50)
[2020-04-01] MEDS: Dextrose 5% in Water 1,000 ML IV SCH ×2 (05:50→19:23)
[2020-04-01 06:11] LABS: Hemoglobin 10.3 g/dL (12.0-16.0); Hypochromia SLIGHT = 6-15 cells (100X) (0-5/hpf); Lymphocytes 11 % (21-51); MDiff Complete? YES; Mean Corpuscular HGB CONC 31.2 g/dL (32.0-36.0); Mean Corpuscular Volume 89.8 fL (78.0-98.0); Mean Platelet Volume 8.4 fL (7.4-10.4); Monocytes 2 % (0-10); Neutrophil 87 % (42-75); Platelet Count 193 thou/uL (130-400); Platelet Morphology Comment Appears Adequate; RBC Distribution Width 14.4 % (11.5-14.5); White Blood Cell (WBC) Count 11.2 thou/uL (4.8-10.8)
[2020-04-01 06:29] LABS: Anion Gap 10 mmol/L (10-20); BUN (Urea Nitrogen) 13 mg/dL (9.8-20.1); Calc. Creatinine Clearance 60 mL/min (70-130); Calcium 8.1 mg/dL (7.8-10.44); Carbon Dioxide 24 mmol/L (23-31); Chloride 106 mmol/L (98-107); Estimated GFR-MDRD 47; Glucose 103 mg/dL (83-110); Potassium 3.1 mmol/L (3.5-5.1); Sodium 137 mmol/L (136-145)
[2020-04-01] MEDS: Mometasone 200 MCG/Formoterol 5 MCG 120 PUFF INHALER INH SCH ×2 (07:50→18:45)
--- NOTE | 2020-04-01 08:11 | PDOC.HOSPP ---
- Subjective Encounter Date: 04/01/20 Encounter Time: 11:00 Subjective: Patient very sad over loss of her . No current complaints. - Objective Vital Signs & Weight: Vital Signs (12 hours) Temp Pulse Resp BP BP Pulse Ox 04/01/20 07:23 97.9 F 105 H 20 158/70 H 94 L 04/01/20 04:00 98.0 F 94 18 158/95 H 91 L 03/31/20 21:19 174/99 H Weight Admit Weight 207 lb Weight 207 lb 11.2 oz I&O: 03/31/20 04/01/20 04/02/20 06:59 06:59 06:59 Intake Total 990 1162.5 Balance 990 1162.5 Result Diagrams: 04/01/20 05:22 04/01/20 05:22 Hospitalist ROS - Review of Systems Constitutional: denies: fever, chills Respiratory: denies: cough, shortness of breath Cardiovascular: denies: chest pain, palpitations Gastrointestinal: denies: nausea, vomiting, abdominal pain - Medication Medications: Active Medications Generic Name Dose Route Start Last Admin Trade Name Freq PRN Reason Stop Dose Admin Hydrocodone Bitart/Acetaminophen 1 tab 03/27/20 22:50 03/31/20 08:54 [place] 10/325 PO 1 tab Q4HR PRN Administration Pain 4-6 Amiodarone HCl 100 mg 03/25/20 09:00 03/31/20 08:42 Cordarone PO 100 mg DAILY JERMAINE Administration Amlodipine Besylate 10 mg 03/26/20 09:00 03/31/20 08:42 Norvasc PO 10 mg DAILY JERMAINE Administration Apixaban 2.5 mg 03/25/20 09:00 03/31/20 21:19 Eliquis PO 2.5 mg BID JERMAINE Administration Artificial Tears 0 drop 03/29/20 23:59 04/01/20 05:51 Liquitears 15ml Bottle EA EYE 2 drop Q6HR JERMAINE Administration Atorvastatin Calcium 10 mg 03/25/20 21:00 03/31/20 21:23 Lipitor PO 10 mg HS JERMAINE Administration Carvedilol 12.5 mg 03/25/20 09:00 03/31/20 21:19 Coreg PO 12.5 mg BID JERMAINE Administration Fluoxetine HCl 30 mg 03/25/20 09:00 03/31/20 08:42 Prozac PO 30 mg DAILY JERMAINE Administration Hydralazine HCl 10 mg 03/25/20 17:34 03/29/20 20:01 Apresoline SLOW IVP 10 mg Q4H PRN Administration SBP >160 Dextrose/Water 1,000 mls @ 75 mls/hr 03/29/20 11:15 04/01/20 05:50 D5w IV 1,000 mls .[id number] JERMAINE Administration Levothyroxine Sodium 125 mcg 03/25/20 06:00 04/01/20 05:50 Synthroid PO 125 mcg 0600 JERMAINE Administration Mometasone Furoate/Formoterol Fumar 2 puff 03/25/20 06:30 04/01/20 07:50 Dulera 200 Mcg/5 Mcg Inhaler INH 2 puff BID-RT JERMAINE Administration Ondansetron HCl 4 mg 03/25/20 03:50 03/30/20 00:21 Zofran IVP 4 mg Q6H PRN Administration Nausea/Vomiting Pantoprazole Sodium 40 mg 03/25/20 09:00 03/31/20 08:43 Protonix PO 40 mg DAILY JERMAINE Administration Sodium Chloride 10 ml 03/27/20 09:00 03/31/20 21:23 Flush - Normal Saline IVF 10 ml Q12HR JERMAINE Administration - Exam General Appearance: NAD, awake alert ENT: moist mucosa Heart: RRR, no murmur, no gallops, no rubs Respiratory: CTAB, no wheezes, no rales, no ronchi Gastrointestinal: soft, non-tender, non-distended, normal bowel sounds Psychiatric: normal behavior, oriented to person, oriented to place Psychiatric - other findings: patient sad, depressed affect Hosp A/P (1) Acute and chronic respiratory failure with hypoxia Code(s): J96.21 - ACUTE AND CHRONIC RESPIRATORY FAILURE WITH HYPOXIA Status: Acute (2) Aspiration pneumonia Code(s): J69.0 - PNEUMONITIS DUE TO INHALATION OF FOOD AND VOMIT Status: Suspected Qualifiers: Aspiration pneumonia type: due to regurgitated food Laterality: bilateral (3) Dysphagia Code(s): R13.10 - DYSPHAGIA, UNSPECIFIED Status: Chronic (4) Afib Code(s): I48.91 - UNSPECIFIED ATRIAL FIBRILLATION Status: Chronic Qualifiers: Atrial fibrillation type: paroxysmal Qualified Code(s): I48.0 - Paroxysmal atrial fibrillation (5) Anxiety and depression Code(s): F41.8 - OTHER SPECIFIED ANXIETY DISORDERS Status: Chronic (6) COPD (chronic obstructive pulmonary disease) Status: Chronic Qualifiers: COPD type: chronic bronchitis (7) Chronic diastolic heart failure Code(s): I50.32 - CHRONIC DIASTOLIC (CONGESTIVE) HEART FAILURE Status: Chronic (8) Chronic low back pain Code(s): M54.5 - LOW BACK PAIN; G89.29 - OTHER CHRONIC PAIN Status: Chronic (9) GERD (gastroesophageal reflux disease) Code(s): K21.9 - GASTRO-ESOPHAGEAL REFLUX DISEASE WITHOUT ESOPHAGITIS Status: Chronic Qualifiers: Esophagitis presence: esophagitis presence not specified Qualified Code(s) : K21.9 - Gastro-esophageal reflux disease without esophagitis (10) Hypertension Code(s): I10 - ESSENTIAL (PRIMARY) HYPERTENSION Status: Chronic Qualifiers: (11) Hypothyroidism Code(s): E03.9 - HYPOTHYROIDISM, UNSPECIFIED Status: Chronic Qualifiers: (12) Obesity (BMI 30-39.9) Code(s): E66.9 - OBESITY, UNSPECIFIED Status: Chronic (13) Sepsis Code(s): A41.9 - SEPSIS, UNSPECIFIED ORGANISM Status: Resolved Qualifiers: Sepsis type: sepsis due to unspecified organism Sepsis acute organ dysfunction status: with acute organ dysfunction Severe sepsis acute organ dysfunction type: acute renal failure Severe sepsis shock status: without septic shock - Plan Recurrent hospitalization for aspiration related issues On Cefepime since 03/25/2020, finished 7 day course and d/c'd She was recently dc'd on 03/12/20 on keflex for uti/pna CT brain shows no ac cva, likely is depressed, a week back. Continue amiodarone, eliquis, norvasc, coreg, lipitor, prozac, dulera inh, synthroid. Per speech therapy, the patient does have a long history of dysphagia and failed swallow evaluation multiple times. Prior modified barium swallow studies revealed evidence of silent aspiration. Prior discussions with the patient and her family resulted in them making the decision to pursue diet with risk of aspiration. Modified diet was recommended but the patient is not compliant with diet. Spiritual care and Palliative care is in discussion with the patient and family regarding transition to hospice. Likely d/c to hospice possibly today if can be arranged.
[2020-04-01] MEDS: FLUoxetine HCl 10 MG CAP PO SCH (08:24)
[2020-04-01] MEDS: Amlodipine 10 MG TAB PO SCH (08:25)
[2020-04-01] MEDS: Apixaban 2.5 MG TAB PO SCH ×2 (08:25→20:36)
[2020-04-01] MEDS: Carvedilol 6.25 MG TAB PO SCH ×2 (08:25→20:36)
[2020-04-01] MEDS: Amiodarone 200 MG TAB PO SCH (08:26)
[2020-04-01] MEDS: HYDROcodone/Acetaminophen 10/325 mg Tablet PO PRN ×3 (10:14→20:47)
--- NOTE | 2020-04-01 10:17 | PRG ---
DATE OF SERVICE: 04/01/2020 SUBJECTIVE: This morning, she is awake, responsive, still slightly encephalopathic. OBJECTIVE: VITAL SIGNS: Temperature 97, pulse 105, blood pressure 150/70, saturations . CHEST: No wheezing. No crackles. CARDIAC: Normal S1, S2. No gallops. ABDOMEN: No masses. ASSESSMENT AND PLAN: Respiratory failure, end stage; recurrent aspiration. Hospice was called. I agree. Comfort care. Discontinue daily lab. Job ID: [id number]
--- NOTE | 2020-04-01 12:21 | PQF ---
DATE: 04-01-20 ATTN: DR. CAITLIN KAUFMAN Please exercise your independent, professional judgment in responding to the clarification form. Clinical indicators are provided on the bottom of this form for your review Please check appropriate box(s) to clarify if the following diagnosis has been ruled in or ruled out: SEPSIS [ X ] Ruled in diagnosis [ ] Continue to treat [ X ] Resolved [ ] Ruled out diagnosis [ ] Other diagnosis [ ] Unable to determine In addition, please specify: Present on Admission (POA): [ X ] Yes [ ] No [ ] Unable to determine For continuity of documentation, please document condition throughout progress notes and discharge summary. Thank You. CLINICAL INDICATORS - SIGNS / SYMPTOMS / LABS / RESULTS AND LOCATION IN MR: ER DX 03-25-20: SEPSIS, NIKI, UTI H&P 03-25-20: URINALYSIS DOES REVEAL POSSIBLE UTI, ACUTE ON CHRONIC HYPOXIC RESPIRATORY FAILURE, POSSIBLE ASPIRATION PNA, POSSIBLE UTI, NIKI ON CKD WBC: 03-25-20: 7.1, 03-27-20: 11.4, 03-28-20: 11.8, 04-01-20: 11.2 RESP: ER: 24, 24 TEMP: ER: 102.2, 99.5, O2 SAT: ER: 78 ON RA, O2 SAT 90 ON 5L RISK FACTORS / RESULTS AND LOCATION IN MR: H&P 03-25-20: HX RECURRENT ASPIRATION PNEUMONIA, FINISHED ANTIBIOTICS MID LAST WEEK FOR PNA AND POSSIBLE UTI, HYPOXIC CURRENTLY REQUIRING 3-4L O2 NC TREATMENTS / RESULTS AND LOCATION IN MR: ER NOTES 03-25-20: VANCOMYCIN IV, CEFEPIME IV, NS IVF (This form is maintained as a part of the permanent medical record) 2014 [employer]. All Rights Reserved [email or web address]
[2020-04-01] MEDS: Atorvastatin Calcium 10 MG TAB PO SCH (20:36)
[2020-04-01] MEDS ORDERED: diphenhydrAMINE 25 MG CAP PO SCH (23:30)
[2020-04-02] MEDS: Artificial Tear Sol 15 ML BOT EA EYE SCH ×2 (06:12→11:41)
[2020-04-02] MEDS: Levothyroxine Sodium 125 MCG TAB PO SCH (06:12)
[2020-04-02] MEDS: Mometasone 200 MCG/Formoterol 5 MCG 120 PUFF INHALER INH SCH (07:39)
--- NOTE | 2020-04-02 07:50 | PDOC.HOSPP ---
- Subjective Encounter Date: 04/02/20 Encounter Time: 09:40 Subjective: Patient without complaint. More alert today and happy to be going home. Still grieving over loss of . - Objective Vital Signs & Weight: Vital Signs (12 hours) Temp Pulse Resp BP Pulse Ox 04/02/20 07:43 98.5 F 85 17 171/85 H 94 L 04/02/20 03:00 97 04/01/20 22:50 98.3 F 68 18 161/79 H 97 Weight Admit Weight 207 lb Weight 207 lb 11.2 oz I&O: 04/01/20 04/02/20 04/03/20 06:59 06:59 06:59 Intake Total 1162.5 1989 Balance 1162.5 1989 Result Diagrams: 04/01/20 05:22 04/01/20 05:22 Hospitalist ROS - Review of Systems Constitutional: denies: fever, chills Respiratory: denies: cough, shortness of breath Cardiovascular: denies: chest pain, palpitations Gastrointestinal: denies: nausea, vomiting, abdominal pain - Medication Medications: Active Medications Generic Name Dose Route Start Last Admin Trade Name Freq PRN Reason Stop Dose Admin Hydrocodone Bitart/Acetaminophen 1 tab 03/27/20 22:50 04/01/20 20:47 [place] 10/325 PO 1 tab Q4HR PRN Administration Pain 4-6 Amiodarone HCl 100 mg 03/25/20 09:00 04/01/20 08:26 Cordarone PO 100 mg DAILY JERMAINE Administration Amlodipine Besylate 10 mg 03/26/20 09:00 04/01/20 08:25 Norvasc PO 10 mg DAILY JERMAINE Administration Apixaban 2.5 mg 03/25/20 09:00 04/01/20 20:36 Eliquis PO 2.5 mg BID JERMAINE Administration Artificial Tears 0 drop 03/29/20 23:59 04/02/20 06:12 Liquitears 15ml Bottle EA EYE 2 drop Q6HR JERMAINE Administration Atorvastatin Calcium 10 mg 03/25/20 21:00 04/01/20 20:36 Lipitor PO 10 mg HS JERMAINE Administration Carvedilol 12.5 mg 03/25/20 09:00 04/01/20 20:36 Coreg PO 12.5 mg BID JERMAINE Administration Fluoxetine HCl 30 mg 03/25/20 09:00 04/01/20 08:24 Prozac PO 30 mg DAILY JERMAINE Administration Hydralazine HCl 10 mg 03/25/20 17:34 03/29/20 20:01 Apresoline SLOW IVP 10 mg Q4H PRN Administration SBP >160 Dextrose/Water 1,000 mls @ 75 mls/hr 03/29/20 11:15 04/01/20 19:23 D5w IV 1,000 mls .[id number] JERMAINE Administration Levothyroxine Sodium 125 mcg 03/25/20 06:00 04/02/20 06:12 Synthroid PO 125 mcg 0600 JERMAINE Administration Mometasone Furoate/Formoterol Fumar 2 puff 03/25/20 06:30 04/02/20 07:39 Dulera 200 Mcg/5 Mcg Inhaler INH 2 puff BID-RT JERMAINE Administration Ondansetron HCl 4 mg 03/25/20 03:50 03/30/20 00:21 Zofran IVP 4 mg Q6H PRN Administration Nausea/Vomiting Pantoprazole Sodium 40 mg 03/25/20 09:00 04/01/20 08:25 Protonix PO 40 mg DAILY JERMAINE Administration Sodium Chloride 10 ml 03/27/20 09:00 04/01/20 20:36 Flush - Normal Saline IVF Not Given Q12HR JERMAINE - Exam General Appearance: NAD, awake alert ENT: moist mucosa Heart: RRR, no murmur, no gallops, no rubs Respiratory: CTAB, no wheezes, no rales, no ronchi Gastrointestinal: soft, non-tender, non-distended, normal bowel sounds Psychiatric: normal affect, normal behavior Hosp A/P (1) Acute and chronic respiratory failure with hypoxia Code(s): J96.21 - ACUTE AND CHRONIC RESPIRATORY FAILURE WITH HYPOXIA Status: Acute (2) Aspiration pneumonia Code(s): J69.0 - PNEUMONITIS DUE TO INHALATION OF FOOD AND VOMIT Status: Suspected Qualifiers: Aspiration pneumonia type: due to regurgitated food Laterality: bilateral (3) Dysphagia Code(s): R13.10 - DYSPHAGIA, UNSPECIFIED Status: Chronic (4) Afib Code(s): I48.91 - UNSPECIFIED ATRIAL FIBRILLATION Status: Chronic Qualifiers: Atrial fibrillation type: paroxysmal Qualified Code(s): I48.0 - Paroxysmal atrial fibrillation (5) Anxiety and depression Code(s): F41.8 - OTHER SPECIFIED ANXIETY DISORDERS Status: Chronic (6) COPD (chronic obstructive pulmonary disease) Status: Chronic Qualifiers: COPD type: chronic bronchitis (7) Chronic diastolic heart failure Code(s): I50.32 - CHRONIC DIASTOLIC (CONGESTIVE) HEART FAILURE Status: Chronic (8) Chronic low back pain Code(s): M54.5 - LOW BACK PAIN; G89.29 - OTHER CHRONIC PAIN Status: Chronic (9) GERD (gastroesophageal reflux disease) Code(s): K21.9 - GASTRO-ESOPHAGEAL REFLUX DISEASE WITHOUT ESOPHAGITIS Status: Chronic Qualifiers: Esophagitis presence: esophagitis presence not specified Qualified Code(s) : K21.9 - Gastro-esophageal reflux disease without esophagitis (10) Hypertension Code(s): I10 - ESSENTIAL (PRIMARY) HYPERTENSION Status: Chronic Qualifiers: (11) Hypothyroidism Code(s): E03.9 - HYPOTHYROIDISM, UNSPECIFIED Status: Chronic Qualifiers: (12) Obesity (BMI 30-39.9) Code(s): E66.9 - OBESITY, UNSPECIFIED Status: Chronic (13) Sepsis Code(s): A41.9 - SEPSIS, UNSPECIFIED ORGANISM Status: Resolved Qualifiers: Sepsis type: sepsis due to unspecified organism Sepsis acute organ dysfunction status: with acute organ dysfunction Severe sepsis acute organ dysfunction type: acute renal failure Severe sepsis shock status: without septic shock - Plan Recurrent hospitalization for aspiration related issues On Cefepime since 03/25/2020, finished 7 day course and d/c'd She was recently dc'd on 03/12/20 on keflex for uti/pna CT brain shows no ac cva, likely is depressed, a week back. Continue amiodarone, eliquis, norvasc, coreg, lipitor, prozac, dulera inh, synthroid. Per speech therapy, the patient does have a long history of dysphagia and failed swallow evaluation multiple times. Prior modified barium swallow studies revealed evidence of silent aspiration. Prior discussions with the patient and her family resulted in them making the decision to pursue diet with risk of aspiration. Modified diet was recommended but the patient is not compliant with diet. Spiritual care and Palliative care is in discussion with the patient and family regarding transition to hospice. D/C home with [facility].
[2020-04-02] MEDS: HYDROcodone/Acetaminophen 10/325 mg Tablet PO PRN (08:36)
[2020-04-02] MEDS: FLUoxetine HCl 10 MG CAP PO SCH (08:37)
[2020-04-02] MEDS: Apixaban 2.5 MG TAB PO SCH (08:37)
[2020-04-02] MEDS: Carvedilol 6.25 MG TAB PO SCH (08:38)
[2020-04-02] MEDS: Amlodipine 10 MG TAB PO SCH (08:38)
[2020-04-02] MEDS: Amiodarone 200 MG TAB PO SCH (08:38)
[2020-04-02] MEDS: Dextrose 5% in Water 1,000 ML IV SCH ×2 (08:39→08:56)
[2020-04-02] MEDS: hydrALAZINE 20 MG/ML VIAL SLOW IVP PRN (08:41)
[2020-04-02 14:08] VITALS: BP 134/75; TEMP 98.2
--- NOTE | 2020-04-02 14:59 | DIS ---
DATE OF ADMISSION: 03/25/2020 DATE OF DISCHARGE: 04/02/2020 PRIMARY CARE PHYSICIAN: Deepak Ricardo MD REASON FOR ADMISSION: Aspiration pneumonia with sepsis. DISCHARGE DIAGNOSES: 1. Acute on chronic respiratory failure with hypoxia. 2. Aspiration pneumonia. 3. Chronic dysphagia. 4. Sepsis, resolved. 5. Atrial fibrillation. 6. Anxiety and depression. 7. Chronic obstructive pulmonary disease. 8. Chronic diastolic congestive heart failure. 9. Chronic low back pain. 10. Gastroesophageal reflux disease. 11. Hypertension. 12. Hypothyroidism. 13. Obesity. 14. Grieving reaction. PROCEDURES: CT of the brain showing no acute intracranial processes. CONSULTATIONS: Pulmonology Dr. Farrell for Dr. Hook. SUMMARY OF HOSPITAL COURSE: This is an 80-year-old white female, with a known history of chronic dysphagia with recurrent aspiration pneumonia, recently in the hospital for aspiration pneumonia, was discharged and then came back in with fever, worsening cough, and shortness of breath. She was admitted to the hospital, given IV antibiotics and oxygen and her symptoms improved over the course of hospitalization. During hospitalization, patient's suddenly and she was not able to be at his . She was very sad about this, was not eating well. On discussion with her and the family about her persistent decline and now grieving from her , it is unlikely that she is going to recover from this and they are moving her to home with hospice. They have already talked with various hospice agencies and going home with [facility]. DISCHARGE MANAGEMENT: Discharged home with hospice. ACTIVITY: As tolerated. DIET: Healthy heart diet with NDD 1 pureed, nectar thick liquids and diet with risks. EQUIPMENT SUPPLIES: Oxygen at home. Other therapies as per hospice. MEDICATIONS: As per hospice. Job ID: [id number]
== END 2020-04-02 13:26 | disposition hospice, home (50) | DRG 871 ==
LOC: ERS 00:51 → ERHOLD 02:59 → 2SW 14:44 → T4-A 20:20
PROVIDERS: ADMIT Internal Medicine; ATTEND Internal Medicine
PROC: 8E0ZXY6 Isolation (ICD-10-PCS; principal; 2020-03-25)
DX: A41.9 Sepsis, unspecified organism (principal); J96.21 Acute and chronic respiratory failure with hypoxia; J69.0 Pneumonitis due to inhalation of food and vomit; G93.41 Metabolic encephalopathy; I13.0 Hypertensive heart and chronic kidney disease with heart failure and stage 1 through stage 4 chronic kidney disease, or unspecified chronic kidney disease; N17.9 Acute kidney failure, unspecified; I50.32 Chronic diastolic (congestive) heart failure; Z66 Do not resuscitate; Z20.828 Contact with and (suspected) exposure to other viral communicable diseases; R65.20 Severe sepsis without septic shock; I48.0 Paroxysmal atrial fibrillation; E78.5 Hyperlipidemia, unspecified; N18.3 Chronic kidney disease, stage 3 (moderate); F41.9 Anxiety disorder, unspecified; J44.9 Chronic obstructive pulmonary disease, unspecified; K21.9 Gastro-esophageal reflux disease without esophagitis; E03.9 Hypothyroidism, unspecified; M54.5 Low back pain; G89.29 Other chronic pain; E66.9 Obesity, unspecified; Z68.34 Body mass index [BMI] 34.0-34.9, adult; Z90.49 Acquired absence of other specified parts of digestive tract; Z90.710 Acquired absence of both cervix and uterus; Z79.890 Hormone replacement therapy; Z79.899 Other long term (current) drug therapy; Z79.51 Long term (current) use of inhaled steroids; R13.10 Dysphagia, unspecified
CPT/HCPCS: 36415; 36416; 51701; 70450; 71045; 80048; 80053; 81003; 81015; 83605; 83735; 83880; 85007; 85025; 85027; 87040; 87635; 93005; 96361; 96365; 96367; J0360; J0692; J2405; J3370; J3480; J3490; Q0163; U0003

== ENCOUNTER 2020-11-22 23:07 | Inpatient (IN) | payer MEDICARE, OTHER ==
[2020-11-23] LABS: #Basophils 0.1 thou/uL (0.0-0.2); #Eosinphils 0.4 thou/uL (0.0-0.7); #Lymphocytes 1.7 thou/uL (1.20-3.40); #Monocytes 0.6 thou/uL (0.11-0.59); #Neutrophils 10.6 thou/uL (1.40-6.50); %Basophils 0.6 % (0.0-1.0); %Lymphocytes 12.9 % (21.0-51.0); %Monocytes 4.5 % (0.0-10.0); Hemoglobin 10.3 g/dL (12.0-16.0); Mean Corpuscular HGB CONC 33.5 g/dL (32.0-36.0); Mean Corpuscular Hemoglobin 31.2 pg (27.0-31.0); Mean Corpuscular Volume 93.1 fL (78.0-98.0); Mean Platelet Volume 7.8 fL (7.4-10.4); Platelet Count 214 thou/uL (130-400); Red Blood Cell (RBC) Count 3.32 mill/uL (4.20-5.40); White Blood Cell (WBC) Count 13.4 thou/uL (4.8-10.8)
[2020-11-23] MEDS ORDERED: Acetaminophen 650 MG Suppository ONE (00:04)
[2020-11-23] MEDS ORDERED: Acetaminophen 325 MG Suppository ONE (00:04)
[2020-11-23 00:14] LABS: ALT (SGPT) 41 U/L (8-55); AST (SGOT) 33 U/L (5-34); Albumin 3.9 g/dL (3.4-4.8); Alkaline Phosphatase 134 U/L (40-110); Anion Gap 17 mmol/L (10-20); BUN (Urea Nitrogen) 43 mg/dL (9.8-20.1); Bilirubin, Total 0.4 mg/dL (0.2-1.2); Calc. Creatinine Clearance 0 mL/min (70-130); Calcium 8.6 mg/dL (7.8-10.44); Carbon Dioxide 27 mmol/L (23-31); Chloride 96 mmol/L (98-107); Globulin 3.2 g/dL (2.4-3.5); Glucose 104 mg/dL (83-110); Potassium 4.8 mmol/L (3.5-5.1); Protein, Total 7.1 g/dL (5.8-8.1); Sodium 135 mmol/L (136-145)
[2020-11-23] MEDS ORDERED: cefTRIAXone\\ROCEPHIN 2 GM VIAL ONE (01:06)
[2020-11-23 01:09] LABS: Bacteria/HPF 3+ HPF (None Seen); Bilirubin Negative (Negative); Blood, Urine Trace (Negative); Calcium Oxalate Crystals Rare HPF (None Seen); Clarity Turbid (Clear); Glucose, Urine (Dipstick) Normal (Negative); Ketone, Urine Negative (Negative); Leukocyte 500 Leu/uL (Negative); Nitrite Negative (Negative); Protein, Urine (Dipstick) 30 mg/dL (Neg-Trace); Squamous Epithelial 0-3 HPF (0-3); Urobilinogen Normal mg/dL (Less than 2); WBC/HPF Greater than 50 HPF (0-3); pH, Urine 5.5 (5.0-9.0)
[2020-11-23 01:37] LABS: SARS-CoV-2 NAA Rapid Test Not Detected (NotDetected)
[2020-11-23] MEDS ORDERED: Vancomycin 1 GM/200 ML BAG ONE (02:08)
[2020-11-23 06:21] VITALS: BMI 33.2
[2020-11-23] MEDS ORDERED: Cefepime 2 GM in Sodium Chloride 0.9% 100 ML IVPB SCH (08:00)
[2020-11-23] MEDS ORDERED: Iopamidol-370 76% 500 ML 1 ML ONE (12:02)
[2020-11-23] MEDS: Piperacillin/Tazobactam 3.375 GM in Sodium Chloride 0.9% 100 ML IVPB SCH ×2 (12:50→18:30)
[2020-11-23] MEDS: Sodium Chloride 0.9% 1,000 ML IV SCH (12:51)
[2020-11-23] MEDS ORDERED: Acetaminophen 650 MG Suppository PR PRN (21:36)
[2020-11-23] MEDS ORDERED: Gabapentin 300 MG CAP PO SCH (23:15)
[2020-11-23] MEDS ORDERED: ALPRAZolam 1 MG TAB PO SCH (23:15)
[2020-11-24] MEDS: Piperacillin/Tazobactam 3.375 GM in Sodium Chloride 0.9% 100 ML IVPB SCH ×5 (00:10→22:24)
[2020-11-24 14:47] LABS: #Eosinphils 0.2 thou/uL (0.0-0.7); #Lymphocytes 1.4 thou/uL (1.20-3.40); #Monocytes 0.6 thou/uL (0.11-0.59); #Neutrophils 5.1 thou/uL (1.40-6.50); %Basophils 0.4 % (0.0-1.0); %Lymphocytes 18.9 % (21.0-51.0); %Monocytes 7.6 % (0.0-10.0); Mean Corpuscular HGB CONC 32.5 g/dL (32.0-36.0); Mean Corpuscular Hemoglobin 30.1 pg (27.0-31.0); Mean Corpuscular Volume 92.6 fL (78.0-98.0); Mean Platelet Volume 8.1 fL (7.4-10.4); Platelet Count 219 thou/uL (130-400); RBC Distribution Width 12.3 % (11.5-14.5); Red Blood Cell (RBC) Count 3.32 mill/uL (4.20-5.40); White Blood Cell (WBC) Count 7.2 thou/uL (4.8-10.8)
[2020-11-24] MEDS: Gabapentin 300 MG CAP PO SCH ×3 (15:48→22:22)
[2020-11-24] MEDS: Amiodarone 200 MG TAB PO SCH (15:54)
[2020-11-24] MEDS: Acetaminophen 325 MG TAB PO PRN (15:56)
[2020-11-24] MEDS: Sodium Chloride 0.9% 1,000 ML IV SCH (16:06)
[2020-11-24 16:35] LABS: Anion Gap 15 mmol/L (10-20); BUN (Urea Nitrogen) 29 mg/dL (9.8-20.1); Calc. Creatinine Clearance 38 mL/min (70-130); Calcium 8.5 mg/dL (7.8-10.44); Carbon Dioxide 23 mmol/L (23-31); Chloride 107 mmol/L (98-107); Glucose 95 mg/dL (83-110); Potassium 3.3 mmol/L (3.5-5.1); Sodium 142 mmol/L (136-145)
[2020-11-24] MEDS: ALPRAZolam 1 MG TAB PO SCH (22:23)
[2020-11-25] MEDS: Acetaminophen 325 MG TAB PO PRN ×2 (02:50→09:52)
[2020-11-25 04:06] LABS: #Basophils 0.1 thou/uL (0.0-0.2); #Eosinphils 0.2 thou/uL (0.0-0.7); #Lymphocytes 1.5 thou/uL (1.20-3.40); #Monocytes 0.7 thou/uL (0.11-0.59); #Neutrophils 4.9 thou/uL (1.40-6.50); %Basophils 0.7 % (0.0-1.0); %Eosinophils 3.1 % (0.0-10.0); %Lymphocytes 20.4 % (21.0-51.0); %Monocytes 9.2 % (0.0-10.0); %Neutrophils 66.5 % (42.0-75.0); Hemoglobin 9.4 g/dL (12.0-16.0); Mean Corpuscular HGB CONC 33.1 g/dL (32.0-36.0); Mean Corpuscular Hemoglobin 30.9 pg (27.0-31.0); Mean Corpuscular Volume 93.5 fL (78.0-98.0); Mean Platelet Volume 7.3 fL (7.4-10.4); Platelet Count 231 thou/uL (130-400); RBC Distribution Width 12.1 % (11.5-14.5); Red Blood Cell (RBC) Count 3.04 mill/uL (4.20-5.40); White Blood Cell (WBC) Count 7.3 thou/uL (4.8-10.8)
[2020-11-25 04:32] LABS: Anion Gap 13 mmol/L (10-20); BUN (Urea Nitrogen) 18 mg/dL (9.8-20.1); Calc. Creatinine Clearance 48 mL/min (70-130); Calcium 8.5 mg/dL (7.8-10.44); Carbon Dioxide 24 mmol/L (23-31); Chloride 111 mmol/L (98-107); Glucose 113 mg/dL (83-110); Sodium 145 mmol/L (136-145)
[2020-11-25] MEDS: Piperacillin/Tazobactam 3.375 GM in Sodium Chloride 0.9% 100 ML IVPB SCH ×3 (06:00→16:42)
[2020-11-25] MEDS ORDERED: guaiFENesin ER 600 MG TAB PO PRN (08:09)
[2020-11-25] MEDS ORDERED: Potassium Chloride 20 MEQ TAB PO SCH (08:15)
[2020-11-25] MEDS ORDERED: Non-Formulary Item 1 EACH (Multivitamin/Iron/Folic Acid [Centrum Adults Tablet] 1 EACH Ta PO SCH (09:00)
[2020-11-25] MEDS ORDERED: Non-Formulary Item 1 EACH (Lactobacillus Acidophilus [Probiotic] 1 CAPSULE Capsule) PO SCH (09:00)
[2020-11-25] MEDS ORDERED: Non-Formulary Item 1 EACH (Oxybutynin Chloride [Oxybutynin Chloride Er] 10 MG Tab.Er.24) PO SCH (09:00)
[2020-11-25] MEDS ORDERED: FLUoxetine HCl 20 MG CAP PO SCH (09:00)
[2020-11-25] MEDS ORDERED: Non-Formulary Item 1 EACH (Carvedilol [Coreg] 12.5 MG Tab) PO SCH (09:00)
[2020-11-25] MEDS: Amiodarone 200 MG TAB PO SCH (09:52)
[2020-11-25] MEDS: FLUoxetine HCl 10 MG CAP PO SCH (09:53)
[2020-11-25] MEDS: Gabapentin 300 MG CAP PO SCH ×3 (09:53→21:44)
[2020-11-25] MEDS: Apixaban 2.5 MG TAB PO SCH ×2 (09:53→21:46)
[2020-11-25] MEDS: Amlodipine 10 MG TAB PO SCH (09:53)
[2020-11-25] MEDS: Carvedilol 6.25 MG TAB PO SCH ×2 (09:53→21:45)
[2020-11-25] MEDS: Oxybutynin 5 MG TAB PO SCH (09:54)
[2020-11-25] MEDS: Multivit, Therapeutic 1 TAB PO SCH (09:54)
[2020-11-25] MEDS: Levothyroxine Sodium 125 MCG TAB PO SCH (09:54)
[2020-11-25] MEDS: Lactinex Tablet PO SCH (09:54)
[2020-11-25] MEDS: Sodium Chloride 0.9% 1,000 ML IV SCH (11:45)
[2020-11-25] MEDS: Budesonide 0.25 MG/2 ML NEB NEB SCH (19:17)
[2020-11-25] MEDS: ALPRAZolam 1 MG TAB PO SCH (21:44)
[2020-11-26] MEDS: Piperacillin/Tazobactam 3.375 GM in Sodium Chloride 0.9% 100 ML IVPB SCH ×5 (01:08→23:44)
[2020-11-26] MEDS: Acetaminophen 325 MG TAB PO PRN (01:31)
[2020-11-26 05:25] LABS: #Basophils 0.1 thou/uL (0.0-0.2); #Eosinphils 0.6 thou/uL (0.0-0.7); #Lymphocytes 1.9 thou/uL (1.20-3.40); #Monocytes 0.9 thou/uL (0.11-0.59); #Neutrophils 5.2 thou/uL (1.40-6.50); %Basophils 0.8 % (0.0-1.0); %Lymphocytes 21.9 % (21.0-51.0); %Monocytes 10.1 % (0.0-10.0); %Neutrophils 60.2 % (42.0-75.0); Hemoglobin 9.7 g/dL (12.0-16.0); Mean Corpuscular Volume 93.8 fL (78.0-98.0); Mean Platelet Volume 7.1 fL (7.4-10.4); Platelet Count 254 thou/uL (130-400); RBC Distribution Width 11.9 % (11.5-14.5); Red Blood Cell (RBC) Count 3.13 mill/uL (4.20-5.40); White Blood Cell (WBC) Count 8.7 thou/uL (4.8-10.8)
[2020-11-26 05:39] LABS: Anion Gap 14 mmol/L (10-20); BUN (Urea Nitrogen) 11 mg/dL (9.8-20.1); Calc. Creatinine Clearance 50 mL/min (70-130); Calcium 8.3 mg/dL (7.8-10.44); Carbon Dioxide 21 mmol/L (23-31); Chloride 114 mmol/L (98-107); Glucose 102 mg/dL (83-110); Sodium 146 mmol/L (136-145)
[2020-11-26 06:11] LABS: Potassium 2.9 mmol/L (3.5-5.1)
[2020-11-26] MEDS: Budesonide 0.25 MG/2 ML NEB NEB SCH ×2 (07:59→19:32)
[2020-11-26] MEDS ORDERED: Potassium Chloride 20 MEQ TAB PO SCH ×3 (08:45→18:00)
[2020-11-26] MEDS: FLUoxetine HCl 10 MG CAP PO SCH (09:47)
[2020-11-26] MEDS: Multivit, Therapeutic 1 TAB PO SCH (09:47)
[2020-11-26] MEDS: Apixaban 2.5 MG TAB PO SCH ×2 (09:47→21:15)
[2020-11-26] MEDS: Lactinex Tablet PO SCH (09:47)
[2020-11-26] MEDS: Amiodarone 200 MG TAB PO SCH (09:47)
[2020-11-26] MEDS: Amlodipine 10 MG TAB PO SCH (09:48)
[2020-11-26] MEDS: Carvedilol 6.25 MG TAB PO SCH ×2 (09:48→20:56)
[2020-11-26] MEDS: Oxybutynin 5 MG TAB PO SCH (09:48)
[2020-11-26] MEDS: Levothyroxine Sodium 125 MCG TAB PO SCH (09:49)
[2020-11-26] MEDS: Gabapentin 300 MG CAP PO SCH ×3 (09:49→20:57)
[2020-11-26] MEDS: Sodium Chloride 0.9% 1,000 ML IV SCH (14:28)
[2020-11-26] MEDS: ALPRAZolam 1 MG TAB PO SCH (23:44)
[2020-11-27 00:50] LABS: #Basophils 0.1 thou/uL (0.0-0.2); #Eosinphils 0.5 thou/uL (0.0-0.7); #Lymphocytes 1.7 thou/uL (1.20-3.40); #Monocytes 0.8 thou/uL (0.11-0.59); #Neutrophils 4.6 thou/uL (1.40-6.50); %Basophils 0.7 % (0.0-1.0); %Eosinophils 6.2 % (0.0-10.0); %Lymphocytes 22.7 % (21.0-51.0); %Monocytes 10.1 % (0.0-10.0); %Neutrophils 60.2 % (42.0-75.0); Hemoglobin 8.9 g/dL (12.0-16.0); Mean Corpuscular Hemoglobin 30.1 pg (27.0-31.0); Mean Corpuscular Volume 91.2 fL (78.0-98.0); Mean Platelet Volume 6.7 fL (7.4-10.4); Platelet Count 258 thou/uL (130-400); RBC Distribution Width 12.1 % (11.5-14.5); Red Blood Cell (RBC) Count 2.95 mill/uL (4.20-5.40); White Blood Cell (WBC) Count 7.7 thou/uL (4.8-10.8)
[2020-11-27 01:10] LABS: Anion Gap 10 mmol/L (10-20); BUN (Urea Nitrogen) 10 mg/dL (9.8-20.1); Calc. Creatinine Clearance 51 mL/min (70-130); Calcium 8.1 mg/dL (7.8-10.44); Carbon Dioxide 24 mmol/L (23-31); Chloride 115 mmol/L (98-107); Glucose 111 mg/dL (83-110); Magnesium 1.9 mg/dL (1.6-2.6); Potassium 3.1 mmol/L (3.5-5.1); Sodium 146 mmol/L (136-145)
[2020-11-27] MEDS ORDERED: Potassium Chloride 20 MEQ TAB PO SCH (02:00)
[2020-11-27] MEDS: Piperacillin/Tazobactam 3.375 GM in Sodium Chloride 0.9% 100 ML IVPB SCH ×2 (06:30→13:28)
[2020-11-27] MEDS: Acetaminophen 325 MG TAB PO PRN (06:30)
[2020-11-27] MEDS: Budesonide 0.25 MG/2 ML NEB NEB SCH ×2 (08:45→22:14)
[2020-11-27] MEDS: Amiodarone 200 MG TAB PO SCH (10:25)
[2020-11-27] MEDS: Lactinex Tablet PO SCH (10:25)
[2020-11-27] MEDS: FLUoxetine HCl 10 MG CAP PO SCH (10:25)
[2020-11-27] MEDS: Carvedilol 6.25 MG TAB PO SCH ×2 (10:25→21:27)
[2020-11-27] MEDS: Multivit, Therapeutic 1 TAB PO SCH (10:25)
[2020-11-27] MEDS: Apixaban 2.5 MG TAB PO SCH ×2 (10:25→21:27)
[2020-11-27] MEDS: Levothyroxine Sodium 125 MCG TAB PO SCH (10:26)
[2020-11-27] MEDS: Oxybutynin 5 MG TAB PO SCH (10:26)
[2020-11-27] MEDS: Gabapentin 300 MG CAP PO SCH ×4 (10:26→21:28)
[2020-11-27] MEDS: Amlodipine 10 MG TAB PO SCH (10:26)
[2020-11-27] MEDS ORDERED: Diphenoxylate HCl/Atropine Tablet PO PRN (12:35)
[2020-11-27] MEDS ORDERED: Loperamide HCl 2 MG CAP PO PRN (12:35)
[2020-11-27] MEDS: Sodium Chloride 0.9% 1,000 ML IV SCH (13:28)
[2020-11-27] MEDS ORDERED: Amoxicillin/Potassium Clav 875 MG TAB PO SCH (21:00)
[2020-11-27] MEDS: Saccharomyces boulardii 250 MG CAP PO SCH (21:27)
[2020-11-27] MEDS: ALPRAZolam 1 MG TAB PO SCH (23:11)
[2020-11-28 04:30] LABS: #Basophils 0.1 thou/uL (0.0-0.2); #Eosinphils 0.6 thou/uL (0.0-0.7); #Lymphocytes 2.3 thou/uL (1.20-3.40); #Monocytes 0.8 thou/uL (0.11-0.59); #Neutrophils 5.5 thou/uL (1.40-6.50); %Basophils 0.7 % (0.0-1.0); %Eosinophils 6.5 % (0.0-10.0); %Lymphocytes 24.7 % (21.0-51.0); %Monocytes 8.5 % (0.0-10.0); %Neutrophils 59.6 % (42.0-75.0); Hemoglobin 9.2 g/dL (12.0-16.0); Mean Corpuscular HGB CONC 32.8 g/dL (32.0-36.0); Mean Corpuscular Volume 91.5 fL (78.0-98.0); Mean Platelet Volume 6.7 fL (7.4-10.4); Platelet Count 269 thou/uL (130-400); RBC Distribution Width 12.1 % (11.5-14.5); Red Blood Cell (RBC) Count 3.05 mill/uL (4.20-5.40); White Blood Cell (WBC) Count 9.2 thou/uL (4.8-10.8)
[2020-11-28 04:53] LABS: Anion Gap 11 mmol/L (10-20); BUN (Urea Nitrogen) 8 mg/dL (9.8-20.1); Calc. Creatinine Clearance 53 mL/min (70-130); Calcium 8.1 mg/dL (7.8-10.44); Carbon Dioxide 21 mmol/L (23-31); Chloride 113 mmol/L (98-107); Glucose 89 mg/dL (83-110); Potassium 3.1 mmol/L (3.5-5.1); Sodium 142 mmol/L (136-145)
[2020-11-28] MEDS: Budesonide 0.25 MG/2 ML NEB NEB SCH (07:01)
[2020-11-28] MEDS: Amiodarone 200 MG TAB PO SCH (08:59)
[2020-11-28] MEDS ORDERED: Potassium Chloride 10 MEQ TAB PO SCH (09:00)
[2020-11-28] MEDS: Amlodipine 10 MG TAB PO SCH (09:08)
[2020-11-28] MEDS: FLUoxetine HCl 10 MG CAP PO SCH (09:09)
[2020-11-28] MEDS: Carvedilol 6.25 MG TAB PO SCH (09:09)
[2020-11-28] MEDS: Apixaban 2.5 MG TAB PO SCH (09:09)
[2020-11-28] MEDS: Gabapentin 300 MG CAP PO SCH ×2 (09:10→13:30)
[2020-11-28] MEDS: Saccharomyces boulardii 250 MG CAP PO SCH (09:11)
[2020-11-28] MEDS: Lactinex Tablet PO SCH (09:12)
[2020-11-28] MEDS: Levothyroxine Sodium 125 MCG TAB PO SCH (09:12)
[2020-11-28] MEDS: Multivit, Therapeutic 1 TAB PO SCH (09:12)
[2020-11-28] MEDS: Oxybutynin 5 MG TAB PO SCH (09:13)
[2020-11-28] MEDS ORDERED: Potassium Chloride 20 MEQ TAB PO SCH (17:15)
[2020-11-28 19:57] VITALS: BP 154/82; TEMP 98.3
== END 2020-11-28 20:00 | disposition home or self-care (01) | DRG 871 ==
LOC: ERS 23:07 → 2SE 11-23 02:50
PROVIDERS: ADMIT Student in an Organized Health Care Education/Training Program; ATTEND Internal Medicine
DX: A41.9 Sepsis, unspecified organism (principal); J69.0 Pneumonitis due to inhalation of food and vomit; G93.41 Metabolic encephalopathy; E87.1 Hypo-osmolality and hyponatremia; N17.9 Acute kidney failure, unspecified; E03.9 Hypothyroidism, unspecified; K21.9 Gastro-esophageal reflux disease without esophagitis; I48.91 Unspecified atrial fibrillation; E78.5 Hyperlipidemia, unspecified; R13.12 Dysphagia, oropharyngeal phase; J39.8 Other specified diseases of upper respiratory tract; K52.9 Noninfective gastroenteritis and colitis, unspecified; D63.1 Anemia in chronic kidney disease; Z20.822 Contact with and (suspected) exposure to COVID-19; N18.30 Chronic kidney disease, stage 3 unspecified; J44.9 Chronic obstructive pulmonary disease, unspecified; E87.6 Hypokalemia; Z90.49 Acquired absence of other specified parts of digestive tract; Z91.040 Latex allergy status; Z88.5 Allergy status to narcotic agent; Z88.1 Allergy status to other antibiotic agents; Z88.8 Allergy status to other drugs, medicaments and biological substances; Z79.899 Other long term (current) drug therapy; Z90.710 Acquired absence of both cervix and uterus
CPT/HCPCS: 0240U; 36415; 36416; 71045; 71275; 80048; 80053; 81003; 81015; 83605; 83735; 83880; 84145; 85025; 87040; 87077; 87086; 87149; 87186; 94640; 96365; 96366; 96367; J0696; J2543; J3370; J3490; J7620; J7626; Q9967

== ENCOUNTER 2020-11-30 08:55 | Observation (INO) | payer MEDICARE, OTHER ==
[2020-11-30 10:00] LABS: #Basophils 0.1 thou/uL (0.0-0.2); #Eosinphils 0.5 thou/uL (0.0-0.7); #Lymphocytes 2.1 thou/uL (1.20-3.40); #Monocytes 0.9 thou/uL (0.11-0.59); #Neutrophils 9.7 thou/uL (1.40-6.50); %Basophils 0.4 % (0.0-1.0); %Eosinophils 3.9 % (0.0-10.0); %Lymphocytes 15.8 % (21.0-51.0); %Monocytes 6.5 % (0.0-10.0); %Neutrophils 73.3 % (42.0-75.0); Hemoglobin 9.9 g/dL (12.0-16.0); Mean Corpuscular HGB CONC 33.7 g/dL (32.0-36.0); Mean Corpuscular Hemoglobin 30.6 pg (27.0-31.0); Mean Platelet Volume 7.2 fL (7.4-10.4); Platelet Count 257 thou/uL (130-400); RBC Distribution Width 12.5 % (11.5-14.5); Red Blood Cell (RBC) Count 3.25 mill/uL (4.20-5.40); White Blood Cell (WBC) Count 13.2 thou/uL (4.8-10.8)
[2020-11-30 10:03] LABS: Anion Gap 16 mmol/L (10-20); BUN (Urea Nitrogen) 13 mg/dL (9.8-20.1); Calc. Creatinine Clearance 0 mL/min (70-130); Carbon Dioxide 17 mmol/L (23-31); Chloride 111 mmol/L (98-107); Potassium 3.8 mmol/L (3.5-5.1); Sodium 140 mmol/L (136-145)
[2020-11-30 10:04] LABS: ALT (SGPT) 17 U/L (8-55); AST (SGOT) 22 U/L (5-34); Albumin 3.6 g/dL (3.4-4.8); Alkaline Phosphatase 81 U/L (40-110); Bilirubin, Total 0.3 mg/dL (0.2-1.2); Calcium 8.1 mg/dL (7.8-10.44); Globulin 2.8 g/dL (2.4-3.5); Glucose 87 mg/dL (83-110); Protein, Total 6.4 g/dL (5.8-8.1)
[2020-11-30 10:51] LABS: Bilirubin Negative (Negative); Blood, Urine Trace (Negative); Clarity Turbid (Clear); Glucose, Urine (Dipstick) Normal (Negative); Ketone, Urine Negative (Negative); Leukocyte 500 Leu/uL (Negative); Nitrite Negative (Negative); Protein, Urine (Dipstick) 50 mg/dL (Neg-Trace); Specific Gravity, Urine 1.015 (1.002-1.036); Squamous Epithelial 0-3 HPF (0-3); Urobilinogen Normal mg/dL (Less than 2); WBC/HPF Greater than 50 HPF (0-3); pH, Urine 5.5 (5.0-9.0)
[2020-11-30 10:54] LABS: Bacteria/HPF Rare-Few HPF (None Seen)
--- NOTE | 2020-11-30 11:18 | RAD ---
PORTABLE CHEST: HISTORY: Cough and fever. COMPARISON: 11/23/2020 study. FINDINGS: Heart size is enlarged. Bibasilar lung changes appear slightly improved as compared to that prior ex am. Changes are slightly more prominent in the left base as compared to the right. IMPRESSION: Improving bibasilar lung change. POS: OFF
--- NOTE | 2020-11-30 16:15 | PDOC.HHP ---
Hospitalist HPI Fever, weakness History of Present Illness: Patient is an 80-year-old female patient with a history of hypothyroidism, GERD, Atrial fibrillation, anemia, COPD, HTN, Hyperlipidemia, Depression and anxiety who was brought in from her home with generalized weakness. Patient was discharged home from hospital 2 days ago after being admitted for pneumonia and UTI, was discharged home on Levaquin PO. She became more weak at home and had a fever this morning. Patient received COVID vaccine on 11/18/20. Her daughter reports that she had a fever of 100.1 this morning and became more generally weak than she normally is. She normally has 24 hour caregivers and can assist with transfer when she goes to the restroom, but this morning, she was unable to stand and transfer. At the time of evaluation, she was awake and alert x2, able to answer questions appropriately. At presentation her blood pressure was 129/45, pulse 68, respirations of 20, temperature 98.3, SPO2 96% on 2L nasal cannula. Patient wears oxygen at home for COPD diagnosis. ED Course: Labs showed lactic acid of 1.0. Covid was negative UA showed greater than 50 WBCs 3+ bacteria nitrates negative. Creatinine 2.2, from a baseline of 1.90. She had a leukocytosis of 13.2. Chest x-ray shows improving bibasilar lung changes. She was started Levaquin 750mg and 2-500ml NS boluses. Patient took Tylenol for fever prior to arrival to ER. Allergies/Adverse Reactions: Allergy/AdvReac Type Severity Reaction Status Date / Time erythromycin base Allergy Verified 03/07/20 00:29 [From Erythrocin] erythromycin lactobionate Allergy Verified 03/07/20 00:29 [From Erythrocin] Latex, Natural Rubber Allergy Rash Verified 03/07/20 00:29 metolazone [Metolazone] Allergy Verified 03/07/20 00:29 nalbuphine Allergy Verified 03/07/20 00:29 nalbuphine HCl [From Nubain] Allergy Verified 03/07/20 00:29 oxycodone Allergy Verified 03/07/20 00:29 oxycodone HCl Allergy Rash Verified 03/07/20 00:29 [From OxyContin] potassium clavulanate Allergy Diarrhea Verified 03/07/20 00:29 [From Augmentin] zolpidem Allergy Verified 03/07/20 00:29 tramadol [From Ultram] AdvReac Intermediate Verified 03/07/20 00:29 zolpidem tartrate AdvReac Intermediate "crazy" Verified 03/07/20 00:29 [From Ambien] fentanyl [From Duragesic] AdvReac Mild Anxiety Verified 03/07/20 00:29 Home Medications: Medication Instructions Recorded Confirmed Type Levothyroxine Sodium [Synthroid] 125 mcg PO DAILY 08/23/17 11/23/20 History Loperamide HCl [Loperamide] 2 mg PO DAILY PRN MDD 4 cap 01/08/19 11/23/20 History Oxybutynin Chloride [Oxybutynin 10 mg PO DAILY 01/08/19 11/23/20 History Chloride ER] guaiFENesin ER [Mucinex] 600 mg PO Q12HR PRN 09/19/19 11/23/20 History FLUoxetine HCl [Prozac] 30 mg PO DAILY 02/07/20 11/23/20 History Apixaban [Eliquis] 2.5 mg PO BID #60 tab 02/10/20 11/23/20 Rx Pantoprazole [Protonix] 40 mg PO DAILY #30 02/19/20 11/23/20 Rx Budesonide [Pulmicort] 0.5 mg IH BID 03/07/20 11/23/20 History Amiodarone [Cordarone] 100 mg PO DAILY 30 Days #30 tab 03/12/20 11/23/20 Rx ALPRAZolam [Alprazolam] 1 mg PO HS 11/23/20 11/23/20 History Acetaminophen 2 tab PO Q6HR PRN 11/23/20 11/23/20 History Amlodipine [Norvasc] 10 mg PO DAILY 11/23/20 11/23/20 History Carvedilol [Coreg] 6.25 mg PO BID 11/23/20 11/23/20 History Codeine Phosphate/Guaifenesin 5 ml PO Q4HR PRN 11/23/20 11/23/20 History [Guaifen-Codeine 100-10 mg/5 ml] Diphenoxylate HCl/Atropine 2.5 mg PO QID PRN 11/23/20 11/23/20 History [Lomotil] Doxylamine [Unisom] 1 tab PO HS PRN 11/23/20 11/23/20 History Ipratropium/Albuterol Sulfate 1 inh INH BID 11/23/20 11/23/20 History [DuoNeb] Lactobacillus Acidophilus 1 cap PO DAILY 11/23/20 11/23/20 History [Probiotic] Multivitamin/Iron/Folic Acid 1 tab PO DAILY 11/23/20 11/23/20 History [Centrum Adults Tablet] Tapentadol HCl [Nucynta ER] 150 mg PO BID 11/23/20 11/23/20 History Torsemide [Demadex] 20 mg PO DAILY 11/23/20 11/23/20 History Gabapentin [Neurontin] 300 mg PO 1200 cap 11/28/20 Rx Gabapentin [Neurontin] 600 mg PO QAM cap 11/28/20 Rx Gabapentin [Neurontin] 900 mg PO 2100 cap 11/28/20 Rx Levofloxacin [Levaquin] 750 mg PO 1300 3 Days #3 tab 11/28/20 Rx Potassium Chloride [K-Dur] 20 meq PO DAILY 30 Days #30 tab 11/28/20 Rx Comments: Synthroid oral Sun Nov 30, 2020 10:52 VITALY Wilson Cheryl TABLET : Strength - 125 mcg : ORAL Patient Dose: 1 tab(s) Oral once a day (in the morning). ALPRAZolam Sun Nov 30, 2020 10:52 VITALY Wilson Cheryl TABLET : Strength - 0.25 mg : ORAL Patient Dose: 0.5 mg Oral once a day (at bedtime). oxybutynin chloride Sun Nov 30, 2020 10:52 VITALY Wilson Cheryl TABLET, EXTENDED RELEASE 24 HR : Strength - 10 mg : ORAL Patient Dose: 10 mg Oral once a day. budesonide inhalation Sun Nov 30, 2020 10:52 VITALY Wilson Cheryl suspension for nebulization : Strength - 0.25 mg/2 mL : INHALATION Patient Dose: Unknown. Eliquis Sun Nov 30, 2020 10:52 VITALY Wilson Cheryl tablet : Strength - 2.5 mg : ORAL Patient Dose: 2.5 mg Oral 2 times a day. carvedilol Sun Nov 30, 2020 10:52 VITALY Wilson Cheryl tablet : Strength - 6.25 mg : ORAL Patient Dose: 6.25 mg Oral 2 times a day. PROzac Sun Nov 30, 2020 10:52 VITALY Wilson Cheryl capsule : Strength - 10 mg : ORAL Patient Dose: 30 mg Oral once a day.20 mg x1 and 10mg x1. guaiFENesin Sun Nov 30, 2020 10:52 VITALY Wilson Cheryl capsule : Strength - 200 mg : ORAL Patient Dose: 600 mg Oral As Needed. pantoprazole oral Sun Nov 30, 2020 10:52 VITALY Wilson Cheryl tablet,delayed release (DR/EC) : Strength - 40 mg : ORAL Patient Dose: 1 tab(s) Oral once a day. gabapentin Sun Nov 30, 2020 10:52 VITALY Wilson Cheryl tablet : Strength - 600 mg : ORAL Patient Dose: tab(s) Oral 3 times a day.600MG AM, 600MG AT NOON. 12OO MG AT NIGHT. Klor-Con 10 Sun Nov 30, 2020 10:52 VITALY Wilson Cheryl tablet extended release : Strength - 10 mEq : ORAL Patient Dose: 2 tab(s) Oral once a day. torsemide oral Sun Nov 30, 2020 10:52 VITALY Wilson Cheryl tablet : Strength - 20 mg : ORAL Patient Dose: 1 tab(s) Oral once a day. amiodarone oral Sun Nov 30, 2020 10:52 VITALY Wilson Cheryl tablet : Strength - 100 mg : ORAL Patient Dose: 1 tab(s) Oral once a day. Centrum 18 mg-400 mcg tablet Sun Nov 30, 2020 10:52 VITALY Wilson Cheryl tablet : Strength - 18 mg iron-400 mcg : ORAL Patient Dose: 1 tab(s) Oral once a day. amLODIPine Sun Nov 30, 2020 10:53 VITALY Wilson Cheryl tablet : Strength - 10 mg : ORAL Patient Dose: 1 tab(s) Oral once a day (in the evening). DuoNeb Sun Nov 30, 2020 10:54 VITALY Wilson Cheryl solution for nebulization : Strength - 0.5 mg-3 mg (2.5 mg base)/3 mL : INHALATION Patient Dose: 1 inhalation Intranasal 2 times a day. Past History: PMHx: Anemia, Atrial fibrillation, GERD, Hypothyroidism, Hyperlipidemia, Asthma, HTN, Anxiety, Depression PSHx: Appendectomy, Cholecystectomy, Tonsillectomy, Back Surgery, Total Hysterectomy, Cataract removal, Esophageal dilation FHx: None of importance Social: Patient denies alcohol intake or smoking. States she lives at home alone. Has caregivers 24 hours/day. Hospitalist HPI ROS Constitutional: reports: fever, weakness. denies: chills, sweats Eyes: denies: pain, vision change, conjunctivae inflammation, eyelid inflammation, redness ENT: denies: ear pain, ear discharge, nose pain, nose discharge, nose congestion, mouth pain, mouth swelling, throat pain, throat swelling Respiratory: denies: cough, dry, shortness of breath, hemoptysis, SOB with excertion, pleuritic pain, sputum, wheezing Cardiovascular: denies: chest pain, palpitations, orthopnea, paroxysmal noc. dyspnea, edema, light headedness Gastrointestinal: denies: nausea, vomiting, abdominal pain, diarrhea, constipation, melena, hematochezia Genitourinary: denies: dysuria, frequency, incontinence, hematuria, retention Musculoskeletal: denies: neck pain, shoulder pain, arm pain, back pain, hand pain, leg pain, foot pain Skin: denies: rash, lesions, yosi, bruising Neurological: denies: weakness, numbness, incoordination, change in speech, confusion, seizures All other systems reviewed; all pertinent +/- noted in HPI/Subj Hospitalist Exam General Appearance: NAD, awake alert Eye: PERRL, anicteric sclera ENT: normocephalic atraumatic, moist mucosa Neck: supple, symmetric, no lymphadenopathy Heart: RRR Respiratory: CTAB, normal chest expansion Gastrointestinal: soft, non-tender, normal bowel sounds Extremities: no cyanosis, no edema Skin: normal turgor, no rashes Neurological: cranial nerve grossly intact, normal sensation to touch Musculoskeletal: normal tone Psychiatric: normal affect, normal behavior, A&O x 3 Hospitalist Results Result Diagrams: 11/30/20 09:32 11/30/20 09:32 Lab results: Laboratory Last Values WBC 13.2 thou/uL (4.8-10.8) H 11/30/20 09:32 RBC 3.25 mill/uL (4.20-5.40) L 11/30/20 09:32 Hgb 9.9 g/dL (12.0-16.0) L 11/30/20 09:32 Hct 29.5 % (36.0-47.0) L 11/30/20 09:32 MCV 91.0 fL (78.0-98.0) 11/30/20 09:32 MCH 30.6 pg (27.0-31.0) 11/30/20 09:32 MCHC 33.7 g/dL (32.0-36.0) 11/30/20 09:32 RDW 12.5 % (11.5-14.5) 11/30/20 09:32 Plt Count 257 thou/uL (130-400) 11/30/20 09:32 MPV 7.2 fL (7.4-10.4) L 11/30/20 09:32 Neutrophils % 73.3 % (42.0-75.0) 11/30/20 09:32 Lymphocytes % 15.8 % (21.0-51.0) L 11/30/20 09:32 Monocytes % 6.5 % (0.0-10.0) 11/30/20 09:32 Eosinophils % 3.9 % (0.0-10.0) 11/30/20 09:32 Basophils % 0.4 % (0.0-1.0) 11/30/20 09:32 Neutrophils # 9.7 thou/uL (1.40-6.50) H 11/30/20 09:32 Lymphocytes # 2.1 thou/uL (1.20-3.40) 11/30/20 09:32 Monocytes # 0.9 thou/uL (0.11-0.59) H 11/30/20 09:32 Eosinophils # 0.5 thou/uL (0.0-0.7) 11/30/20 09:32 Basophils # 0.1 thou/uL (0.0-0.2) 11/30/20 09:32 Sodium 140 mmol/L (136-145) 11/30/20 09:32 Potassium 3.8 mmol/L (3.5-5.1) 11/30/20 09:32 Chloride 111 mmol/L (98-107) H 11/30/20 09:32 Carbon Dioxide 17 mmol/L (23-31) L 11/30/20 09:32 Anion Gap 16 mmol/L (10-20) 11/30/20 09:32 BUN 13 mg/dL (9.8-20.1) 11/30/20 09:32 Creatinine 2.20 mg/dL (0.6-1.1) H 11/30/20 09:32 Estimated GFR (MDRD) 21 11/30/20 09:32 Glucose 87 mg/dL (83-110) 11/30/20 09:32 Lactic Acid 1.8 mmol/L (0.5-2.2) 11/30/20 09:32 Calcium 8.1 mg/dL (7.8-10.44) 11/30/20 09:32 Total Bilirubin 0.3 mg/dL (0.2-1.2) 11/30/20 09:32 AST 22 U/L (5-34) 11/30/20 09:32 ALT 17 U/L (8-55) 11/30/20 09:32 Alkaline Phosphatase 81 U/L (40-110) 11/30/20 09:32 Troponin I 0.013 ng/mL (< 0.028) 11/30/20 09:32 Serum Total Protein 6.4 g/dL (5.8-8.1) 11/30/20 09:32 Albumin 3.6 g/dL (3.4-4.8) 11/30/20 09:32 Globulin 2.8 g/dL (2.4-3.5) 11/30/20 09:32 Albumin/Globulin Ratio 1.3 g/dL (1.2-2.2) 11/30/20 09:32 Urine Color Yellow (Yellow) 11/30/20 10:16 Urine Clarity Turbid (Clear) A 11/30/20 10:16 Urine pH 5.5 (5.0-9.0) 11/30/20 10:16 Ur Specific [place] 1.015 (1.002-1.036) 11/30/20 10:16 Urine Protein 50 mg/dL (Neg-Trace) A 11/30/20 10:16 Urine Glucose (UA) Normal mg/dL (Negative) 11/30/20 10:16 Urine Ketones Negative mg/dL (Negative) 11/30/20 10:16 Urine Blood Trace (Negative) A 11/30/20 10:16 Urine Nitrite Negative (Negative) 11/30/20 10:16 Urine Bilirubin Negative (Negative) 11/30/20 10:16 Urine Urobilinogen Normal mg/dL (Less than 2) 11/30/20 10:16 Ur Leukocyte Esterase 500 Huma/uL (Negative) A 11/30/20 10:16 Urine RBC 7-10 HPF (0-3) A 11/30/20 10:16 Urine WBC Greater than 50 HPF (0-3) A 11/30/20 10:16 Ur Squamous Epith Cells 0-3 HPF (0-3) 11/30/20 10:16 Urine Bacteria Rare-Few HPF (None Seen) 11/30/20 10:16 Hyaline Casts 0-3 LPF (0-3) 11/30/20 10:16 Hospitalist H&P A/P (1) Generalized weakness Code(s): R53.1 - WEAKNESS Status: Acute (2) Acute kidney injury Code(s): N17.9 - ACUTE KIDNEY FAILURE, UNSPECIFIED Status: Acute (3) Pneumonia Code(s): J18.9 - PNEUMONIA, UNSPECIFIED ORGANISM Status: Ruled-out Plan: Plan: This is an 80-year-old female patient with a history of Atrial fibrillation, COPD, HTN, Hyperlipidemia, GERD, Hypothyroidism with fever and generalized weakness. BP was lower around 96/45 so initial concerns for generalized weakness which facilitated admission from ER. Generalized weakness -IV fluids and continue to monitor. -Admit to observation. -Pending Blood cultures and pending urine cultures. Pneumonia -Chest xray shows improving bibasilar lung changes. -Continue Levaquin antibiotic treatment. -Breathing treatments as needed. NIKI on CKD -Creatinine at 2.2 from a baseline of 1.9. GFR 21. -IV fluids and continue to monitor. -Repeat CMP in AM. Normocytic anemia -Improving CBC from lab admission. -Repeat CBC in AM. DVT prophylaxisSCDs CODE STATUS Full code Case discussed with Dr. Beck.
[2020-11-30] MEDS ORDERED: Doxylamine 25 MG TAB PO PRN (17:15)
[2020-11-30] MEDS ORDERED: Loperamide HCl 2 MG CAP PO PRN (17:15)
[2020-11-30] MEDS ORDERED: Diphenoxylate HCl/Atropine Tablet PO PRN (17:15)
[2020-11-30] MEDS: Budesonide 0.5 MG/2 ML NEB NEB SCH (19:14)
[2020-11-30] MEDS: Sodium Chloride 0.9% 1,000 ML IV SCH (20:02)
[2020-11-30 20:09] VITALS: BMI 33.7
[2020-11-30] MEDS ORDERED: ALPRAZolam 1 MG TAB PO SCH (21:00)
[2020-11-30] MEDS ORDERED: TAPENTADOL HCL 150 MG PO SCH (21:00)
[2020-11-30] MEDS ORDERED: Gabapentin 300 MG CAP PO SCH (21:00)
[2020-11-30] MEDS: Carvedilol 6.25 MG TAB PO SCH (21:10)
[2020-11-30] MEDS: Apixaban 2.5 MG TAB PO SCH (21:10)
[2020-11-30] MEDS: Acetaminophen 500 MG TAB PO PRN (21:37)
[2020-12-01 05:08] LABS: SARS-CoV-2 PCR by NAA Not Detected (NotDetected)
[2020-12-01] MEDS ORDERED: Levothyroxine Sodium 125 MCG TAB PO SCH (06:00)
[2020-12-01 06:28] LABS: #Basophils 0.1 thou/uL (0.0-0.2); #Eosinphils 0.4 thou/uL (0.0-0.7); #Monocytes 0.6 thou/uL (0.11-0.59); #Neutrophils 3.7 thou/uL (1.40-6.50); %Basophils 0.8 % (0.0-1.0); %Eosinophils 5.7 % (0.0-10.0); %Lymphocytes 29.6 % (21.0-51.0); %Monocytes 8.3 % (0.0-10.0); %Neutrophils 55.7 % (42.0-75.0); Hemoglobin 8.4 g/dL (12.0-16.0); Mean Corpuscular HGB CONC 33.2 g/dL (32.0-36.0); Mean Corpuscular Hemoglobin 30.5 pg (27.0-31.0); Mean Corpuscular Volume 91.7 fL (78.0-98.0); Platelet Count 233 thou/uL (130-400); RBC Distribution Width 12.5 % (11.5-14.5); Red Blood Cell (RBC) Count 2.75 mill/uL (4.20-5.40); White Blood Cell (WBC) Count 6.6 thou/uL (4.8-10.8)
[2020-12-01 06:46] LABS: ALT (SGPT) 16 U/L (8-55); AST (SGOT) 25 U/L (5-34); Albumin 2.9 g/dL (3.4-4.8); Alkaline Phosphatase 70 U/L (40-110); Anion Gap 14 mmol/L (10-20); BUN (Urea Nitrogen) 12 mg/dL (9.8-20.1); Bilirubin, Total 0.2 mg/dL (0.2-1.2); Calc. Creatinine Clearance 34 mL/min (70-130); Calcium 7.5 mg/dL (7.8-10.44); Carbon Dioxide 18 mmol/L (23-31); Chloride 114 mmol/L (98-107); Globulin 2.5 g/dL (2.4-3.5); Glucose 93 mg/dL (83-110); Potassium 3.6 mmol/L (3.5-5.1); Protein, Total 5.4 g/dL (5.8-8.1); Sodium 142 mmol/L (136-145)
[2020-12-01] MEDS: Sodium Chloride 0.9% 1,000 ML IV SCH (07:41)
[2020-12-01] MEDS: Budesonide 0.5 MG/2 ML NEB NEB SCH ×2 (08:30→18:46)
[2020-12-01] MEDS ORDERED: Gabapentin 300 MG CAP PO SCH ×2 (09:00→12:00)
[2020-12-01] MEDS ORDERED: Amiodarone 200 MG TAB PO SCH (09:00)
[2020-12-01] MEDS ORDERED: FLUoxetine HCl 10 MG CAP PO SCH (09:00)
[2020-12-01] MEDS: Carvedilol 6.25 MG TAB PO SCH (09:00)
[2020-12-01] MEDS ORDERED: Amlodipine 10 MG TAB PO SCH (09:00)
[2020-12-01] MEDS ORDERED: Oxybutynin ER 5 MG TAB PO SCH (09:00)
[2020-12-01] MEDS: Apixaban 2.5 MG TAB PO SCH (09:00)
[2020-12-01] MEDS ORDERED: Potassium Chloride 20 MEQ TAB PO SCH (09:00)
[2020-12-01] MEDS ORDERED: Torsemide 20 MG TAB PO SCH (09:00)
[2020-12-01 11:44] VITALS: BP 142/71; TEMP 98.4
[2020-12-01] MEDS: Acetaminophen 500 MG TAB PO PRN (12:28)
--- NOTE | 2020-12-01 17:22 | PDOC.HOSPP ---
- Subjective Encounter Date: 12/01/20 Encounter Time: 10:30 Subjective: Patient seen this morning. Rehospitalized due to fever and weakness. Recent admission for pneumonia and UTI and discharged with Levaquin p.o. Covid vaccination on November 18 - Objective Vital Signs & Weight: Vital Signs (12 hours) Temp Pulse Resp BP Pulse Ox 12/01/20 11:43 98.4 F 61 18 142/71 H 98 12/01/20 09:01 75 12/01/20 08:30 75 16 96 12/01/20 07:59 97.9 F 61 18 129/71 97 12/01/20 06:26 97.2 F L 64 18 131/83 97 Weight Weight 202 lb 6.4 oz I&O: 11/30/20 12/01/20 12/02/20 06:59 06:59 06:59 Intake Total 1400 Balance 1400 Result Diagrams: 12/01/20 06:15 12/01/20 06:15 Hospitalist ROS - Medication Medications: Active Medications Generic Name Dose Route Start Last Admin Trade Name Freq PRN Reason Stop Dose Admin Acetaminophen 1,000 mg 11/30/20 17:15 12/01/20 12:28 Acetaminophen 500 Mg Tab PO 1,000 mg Q6H PRN Administration Mild-Moderate Pain (1-5) Albuterol/Ipratropium 3 ml 11/30/20 18:30 12/01/20 08:32 Ipratropium/Albuterol Sulfate 3 Ml Neb NEB 3 ml BID-RT JERMAINE Administration Alprazolam 1 mg 11/30/20 21:00 11/30/20 21:10 Alprazolam 1 Mg Tab PO 1 mg HS JERMAINE Administration Amiodarone HCl 100 mg 12/01/20 09:00 12/01/20 08:59 Amiodarone 200 Mg Tab PO 100 mg DAILY JERMAINE Administration Amlodipine Besylate 10 mg 12/01/20 09:00 12/01/20 09:01 Amlodipine 10 Mg Tab PO 10 mg DAILY JERMAINE Administration Apixaban 2.5 mg 11/30/20 21:00 12/01/20 09:00 Apixaban 2.5 Mg Tab PO 2.5 mg BID JERMAINE Administration Budesonide 0.5 mg 11/30/20 18:30 12/01/20 08:30 Budesonide 0.5 Mg/2 Ml Neb NEB 0.5 mg BID-RT JERMAINE Administration Carvedilol 6.25 mg 11/30/20 21:00 12/01/20 09:00 Carvedilol 6.25 Mg Tab PO 6.25 mg BID JERMAINE Administration Fluoxetine HCl 30 mg 12/01/20 09:00 12/01/20 08:58 Fluoxetine Hcl 10 Mg Cap PO 30 mg DAILY JERMAINE Administration Gabapentin 300 mg 12/01/20 12:00 12/01/20 12:29 Gabapentin 300 Mg Cap PO 300 mg 1200 JERMAINE Administration Gabapentin 600 mg 12/01/20 09:00 12/01/20 08:59 Gabapentin 300 Mg Cap PO 600 mg QAM JERMAINE Administration Gabapentin 900 mg 11/30/20 21:00 11/30/20 21:09 Gabapentin 300 Mg Cap PO 900 mg 2100 JERMAINE Administration Sodium Chloride 1,000 mls @ 75 mls/hr 11/30/20 17:15 12/01/20 07:41 Normal Saline 0.9% IV Not Given .[id number] JERMAINE Levofloxacin 750 mg 12/01/20 13:00 12/01/20 12:29 Levofloxacin 750 Mg Tab PO 750 mg 1300 JERMAINE Administration Levothyroxine Sodium 125 mcg 12/01/20 06:00 12/01/20 06:12 Levothyroxine Sodium 125 Mcg Tab PO 125 mcg 0600 JERMAINE Administration Oxybutynin Chloride 10 mg 12/01/20 09:00 12/01/20 09:06 Oxybutynin Er 5 Mg Tab PO 10 mg DAILY JERMAINE Administration Pantoprazole Sodium 40 mg 12/01/20 09:00 12/01/20 09:01 Pantoprazole 40 Mg Tab PO 40 mg DAILY JERMAINE Administration Potassium Chloride 20 meq 12/01/20 09:00 12/01/20 09:01 Potassium Chloride 20 Meq Tab PO 20 meq DAILY JERMAINE Administration Torsemide 20 mg 12/01/20 09:00 12/01/20 09:01 Torsemide 20 Mg Tab PO 20 mg DAILY JERMAINE Administration Hospitalist Exam Vitals: Vital Signs (12 hours) Temp Pulse Resp BP Pulse Ox 12/01/20 11:43 98.4 F 61 18 142/71 H 98 12/01/20 09:01 75 12/01/20 08:30 75 16 96 12/01/20 07:59 97.9 F 61 18 129/71 97 12/01/20 06:26 97.2 F L 64 18 131/83 97 Weight Weight 202 lb 6.4 oz General Appearance: NAD, awake alert Eye: PERRL ENT: normocephalic atraumatic Neck: supple Heart: RRR, normal peripheral pulses Respiratory: CTAB, normal chest expansion Gastrointestinal: soft, normal bowel sounds Neurological: cranial nerve grossly intact, no focal deficits Musculoskeletal: generalized weakness Psychiatric: A&O x 3 Hosp A/P - Plan This is an 80-year-old female patient with a history of Atrial fibrillation, COPD, HTN, Hyperlipidemia, GERD, Hypothyroidism with fever and generalized weakness. BP was lower around 96/45 so initial concerns for generalized weakness which facilitated admission from ER. Generalized weakness -IV fluids and continue to monitor. -Pending Blood cultures and pending urine cultures. Pneumonia -Chest xray shows improving bibasilar lung changes. -Continue ctx, zithro -Breathing treatments as needed. NIKI on CKD -Creatinine at 2.2 from a baseline of 1.9. GFR 21. -IV fluids and continue to monitor. Normocytic anemia -stable will talk to the daughter [phone]
[2020-12-01] MEDS ORDERED: cefTRIAXone\\ROCEPHIN 1 GM in Sodium Chloride 0.9% 100 ML IVPB SCH (18:00)
[2020-12-02] MEDS ORDERED: Azithromycin 250 MG TAB PO SCH (09:00)
--- NOTE | 2020-12-02 16:03 | PDOC.DS.DS ---
Provider Date of Admission: 11/30/20 16:18 Date of Discharge: 12/01/20 Admitting Provider: Delia Beck MD Primary Care Physician: Deepak Ricardo MD Course Hospital Course: This is an 80-year-old female patient with a history of Atrial fibrillation, COPD, HTN, Hyperlipidemia, GERD, Hypothyroidism with fever and generalized weakness. BP was lower around 96/45 so initial concerns for generalized weakness which facilitated admission from ER. Generalized weakness -IV fluids and continue to monitor. -Pending Blood cultures and pending urine cultures. Pneumonia -Chest xray shows improving bibasilar lung changes. -Continue ctx, zithro -Breathing treatments as needed. NIKI on CKD -Creatinine at 2.2 from a baseline of 1.9. GFR 21. -IV fluids and continue to monitor. Normocytic anemia -stable will talk to the daughter [phone] daughter wants to take the pt home. she is discharged. Resuscitation Status: 11/30/20 17:33 Resuscitation Status Routine Co-Sign Provider: Resuscitation Status: FULL: Full Resuscitation Lab Results: 12/01/20 06:15 12/01/20 06:15 Abnormal Lab Results - Last 48 hrs 12/01/20 06:15: Chloride 114 H, Carbon Dioxide 18 L, Creatinine 1.89 H, Calcium 7.5 L, Serum Total Protein 5.4 L, Albumin 2.9 L 12/01/20 06:15: RBC 2.75 L, Hgb 8.4 L, Hct 25.3 L, MPV 7.0 L, Monocytes # 0.6 H Microbiology - Entire Visit 11/30/20 09:32 Venous blood - Right Hand Blood Culture - Preliminary NO GROWTH AT 48 HOURS 11/30/20 09:41 Venous blood - Left Arm Blood Culture - Preliminary NO GROWTH AT 48 HOURS 11/30/20 10:16 Urine Straight Catheter Urine Culture - Final NO GROWTH AT 48 HOURS Vitals: Weight Weight 202 lb 6.4 oz Physical Exam: The patient was seen and examined on the day of discharge. Plan Home Medications: Medication Instructions Recorded Confirmed Type Levothyroxine Sodium [Synthroid] 125 mcg PO DAILY 08/23/17 12/01/20 History Loperamide HCl [Loperamide] 2 mg PO DAILY PRN MDD 4 cap 01/08/19 12/01/20 History Oxybutynin Chloride [Oxybutynin 10 mg PO DAILY 01/08/19 12/01/20 History Chloride ER] guaiFENesin ER [Mucinex] 600 mg PO Q12HR PRN 09/19/19 12/01/20 History FLUoxetine HCl [Prozac] 30 mg PO DAILY 02/07/20 12/01/20 History Apixaban [Eliquis] 2.5 mg PO BID #60 tab 02/10/20 12/01/20 Rx Pantoprazole [Protonix] 40 mg PO DAILY #30 02/19/20 12/01/20 Rx Budesonide [Pulmicort] 0.5 mg IH BID 03/07/20 12/01/20 History Amiodarone [Cordarone] 100 mg PO DAILY 30 Days #30 tab 03/12/20 12/01/20 Rx ALPRAZolam [Alprazolam] 1 mg PO HS 11/23/20 12/01/20 History Acetaminophen 2 tab PO Q6HR PRN 11/23/20 12/01/20 History Amlodipine [Norvasc] 10 mg PO QPM 11/23/20 12/01/20 History Carvedilol [Coreg] 6.25 mg PO BID 11/23/20 12/01/20 History Codeine Phosphate/Guaifenesin 5 ml PO Q4HR PRN 11/23/20 12/01/20 History [Guaifen-Codeine 100-10 mg/5 ml] Diphenoxylate HCl/Atropine 2.5 mg PO QID PRN 11/23/20 12/01/20 History [Lomotil] Doxylamine [Unisom] 1 tab PO HS PRN 11/23/20 12/01/20 History Ipratropium/Albuterol Sulfate 1 inh INH BID 11/23/20 12/01/20 History [DuoNeb] Lactobacillus Acidophilus 1 cap PO DAILY 11/23/20 12/01/20 History [Probiotic] Multivitamin/Iron/Folic Acid 1 tab PO DAILY 11/23/20 12/01/20 History [Centrum Adults Tablet] Tapentadol HCl [Nucynta ER] 150 mg PO BID 11/23/20 12/01/20 History Torsemide [Demadex] 20 mg PO DAILY 11/23/20 12/01/20 History Gabapentin [Neurontin] 600 mg PO QAM cap 11/28/20 12/01/20 Rx Potassium Chloride [K-Dur] 20 meq PO DAILY 30 Days #30 tab 11/28/20 12/01/20 Rx Gabapentin 2 tab PO HS 12/01/20 12/01/20 History Gabapentin 600 mg PO DAILY 12/01/20 12/01/20 History Allergies: erythromycin base [From Erythrocin] Allergy (Verified 03/07/20:29) erythromycin lactobionate [From Erythrocin] Allergy (Verified 03/07/20:) Latex, Natural Rubber Allergy (Verified 03/07/20) Rash metolazone [Metolazone] Allergy (Verified 03/07/20:) nalbuphine Allergy (Verified 03/07/20) nalbuphine HCl [From Nubain] Allergy (Verified 03/07/20) CAUSES HER TO BE "CRAZY" oxycodone Allergy (Verified 03/07/20) oxycodone HCl [From OxyContin] Allergy (Verified 03/07/20) Rash potassium clavulanate [From Augmentin] Allergy (Verified 03/07/20:) Diarrhea zolpidem Allergy (Verified 03/07/20:) tramadol [From Ultram] Adverse Reaction (Intermediate, Verified 03/07/20:) hallucinations, per patient/family zolpidem tartrate [From Ambien] Adverse Reaction (Intermediate, Verified 03/07/20:29) "crazy" very confused fentanyl [From Duragesic] Adverse Reaction (Mild, Verified 03/07/20:) Anxiety "makes her feel funny" Activity:: Activity as Tolerated Nourishment:: Regular Diet Referrals: Deepak Ricardo MD [Primary Care Provider] - 7 Days Disposition: HOME Quality CORE MEASURES:: N/A
== END 2020-12-01 18:49 | disposition home or self-care (01) ==
LOC: ERS 08:55 → T4-B 16:18
PROVIDERS: ADMIT Internal Medicine; ATTEND Internal Medicine
DX: R50.9 Fever, unspecified (principal); R53.1 Weakness; J18.9 Pneumonia, unspecified organism; N39.0 Urinary tract infection, site not specified; I48.91 Unspecified atrial fibrillation; J44.9 Chronic obstructive pulmonary disease, unspecified; I12.9 Hypertensive chronic kidney disease with stage 1 through stage 4 chronic kidney disease, or unspecified chronic kidney disease; N18.9 Chronic kidney disease, unspecified; N17.9 Acute kidney failure, unspecified; E78.5 Hyperlipidemia, unspecified; K21.9 Gastro-esophageal reflux disease without esophagitis; E03.9 Hypothyroidism, unspecified; D64.9 Anemia, unspecified; F41.9 Anxiety disorder, unspecified; F32.9 Major depressive disorder, single episode, unspecified; Z79.899 Other long term (current) drug therapy; Z88.1 Allergy status to other antibiotic agents; Z88.5 Allergy status to narcotic agent; Z88.8 Allergy status to other drugs, medicaments and biological substances; Z20.822 Contact with and (suspected) exposure to COVID-19
CPT/HCPCS: 51701; 71045; 80053 ×2; 83605; 84484; 85025 ×2; 87040; 87086; 93005; 94640 ×3; 97139 ×2; 99285; U0003; U0005; 36415; 81003; 81015; 87635; 96374; G0378; J0696; J3490; J7620; J7626